=== PATIENT | female | born 1970 | race Caucasian/White ===

== ENCOUNTER 2020-09-17 19:06 | Emergency (ER) | payer OTHER, SELFPAY ==
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
[2020-09-17 19:13] VITALS: BP 177/91; PULSE 80; RESP 17; TEMP 36.6; O2SAT 97
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
[2020-09-17 19:28] LABS: Basophils Percent Auto 0.7 % (0.2-1.2); Eosinophils Absolute Auto 0.2 K/mm3 (0-0.3); Eosinophils Percent Auto 2.6 % (0-4.4); Hematocrit 45.6 % (37.0-47.0); Hemoglobin 15.7 g/dL (12.0-15.0); Immature Granulocyte Absolute 0.03 K/mm3 (0.00-0.031); Immature Granulocyte Percent A 0.5 % (0-0.5); Lymphocytes Absolute Auto 1.28 K/mm3 (0.9-3.2); Lymphocytes Percent Auto 22.2 % (18.3-44.2); Mean Corpuscular HGB Conc 34.4 g/dl (32-36); Mean Corpuscular Hemoglobin 31.5 pg (26-34); Mean Corpuscular Volume 91.4 fl (80-100); Mean Platelet Volume 9.4 fl (7.4-10.4); Monocytes Absolute Auto 0.4 K/mm3 (0.1-0.6); Monocytes Percent Auto 7.5 % (2.6-8.5); Neutrophils Absolute Auto 3.8 K/mm3 (1.3-6.7); Neutrophils Percent Auto 66.5 % (45.5-73.1); Platelet Count Result 217 k/mm3 (150-375); Red Blood Count 4.99 M/mm3 (4.2-5.4); Red Cell Distribution Width 12.4 % (11.5-14.5); White Blood Count 5.8 K/mm3 (4.5-10.0)
[2020-09-17] MEDS: SODIUM CHLORIDE 0.9% IV 1,000 ML 999 ML IV CONT (19:35)
[2020-09-17] MEDS: ONDANSETRON INJ 4 MG/2 ML VIAL IV PUSH (19:36)
[2020-09-17 19:39] LABS: Alanine Aminotransferase 50 U/L (4-35); Albumin Level 4.4 g/dL (3.5-5.1); Alkaline Phosphatase 49 U/L (38-126); Anion Gap 8 mmol/L (8-16); Aspartate Amino Transferase 31 U/L (14-36); Bilirubin,Total 0.4 mg/dL (0.2-1.3); Blood Urea Nitrogen 22 mg/dL (7-17); Calcium 9.7 mg/dL (8.4-10.2); Carbon Dioxide 26 mmol/L (22-30); Chloride 101 mmol/L (98-107); Estimated CRCL calculation 93 ml/min; Estimated Glomerular Filt Rate 58; Glucose 100 mg/dL (65-105); Potassium 4.2 mmol/L (3.4-5.0); Sodium 135 mmol/L (137-145)
--- NOTE | 2020-09-17 19:43 | PC.NURSE ---
Pt refused pain medication. States she can handle the pain
[2020-09-17 19:49] LABS: Add Urine Microscopic? YES; Appearance Urine Clear (Clear); Bilirubin Urine Negative (Negative); Blood Urine Negative (Negative); Color Urine Yellow (Yellow); Glucose Urine UA Negative (Negative); Ketones Urine Negative (Negative); Leukocyte Esterase Ur Negative LEU/UL (Negative); Mucus Urine Rare /lpf; Nitrate Urine Negative (Negative); Protein Urine Negative (Negative); RBC Urine 0-2 /hpf (0-2); Specific Grav Ur 1.016 (1.001-1.035); Squamous Epithelial Cell Urine Many /hpf (Few); WBC Urine 0-3 /hpf
== END 2020-09-17 21:03 | disposition home or self-care (01) ==
PROVIDERS: Emergency Provider Emergency Medicine; Family Provider Family Medicine; PCP Family Medicine
DX: S30.1XXA Contusion of abdominal wall, initial encounter (principal); S16.1XXA Strain of muscle, fascia and tendon at neck level, initial encounter; I10 Essential (primary) hypertension; E11.9 Type 2 diabetes mellitus without complications; F17.210 Nicotine dependence, cigarettes, uncomplicated; V49.50XA Passenger injured in collision with unspecified motor vehicles in traffic accident, initial encounter
CPT/HCPCS: 36415; 71260; 72125; 74177; 80053; 81001; 85025; 96361; 96374; 99284; J2405; J7030; Q9967

== ENCOUNTER 2020-09-24 12:46 | Outpatient (CLI) | payer OTHER, SELFPAY ==
--- NOTE | ~2020-09-24 | US_ITS ---
EXAMINATION: US carotid duplex BI DATE: 09/24/2020 13:19 INDICATION: Carotid atherosclerosis. TECHNIQUE: Grayscale, color Doppler, and pulsed Doppler images of the cervical carotid arteries were obtained. The degree of vessel stenosis is placed in one of the following categories: normal, <50%, 5 0-69%, >=70% but less than near-occlusion, near-occlusion, or total occlusion. Note that percent sten osis relative to normal distal artery lumen diameter is indirectly measured from velocity measurement s as described by Papo, et al. Radiology 2003; 229:340-346. COMPARISON: CT cervical spine 09/17/2020 FINDINGS: RIGHT: The right common carotid artery (CCA) peak systolic velocity (PSV) is 102 cm/s. The right internal ca rotid artery (ICA) PSV is 100 cm/s. The right ICA end-diastolic velocity (EDV) is 16 cm/s. The right ICA/CCA PSV ratio is 1.0. Grayscale and color Doppler images yield an estimate of <50% diameter reduc tion from plaque in the ICA. There is antegrade flow in the right vertebral artery. LEFT: The left CCA PSV is 106 cm/s. The left ICA PSV is 97 cm/s. The left ICA EDV is 37 cm/s. The left ICA/ CCA PSV ratio is 0.9. Grayscale and color Doppler images yield an estimate of <50% diameter reduction from plaque in the ICA. There is antegrade flow in the left vertebral artery. IMPRESSION: 1. <50% stenosis in the right internal carotid artery. 2. <50% stenosis in the left internal carotid artery. Reviewed, dictated and finalized at location [facility]. 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
== END 2020-09-24 12:47 | disposition home or self-care (01) ==
PROVIDERS: Family Provider Family Medicine; PCP Family Medicine; Visit Provider Family Medicine
DX: R93.89 Abnormal findings on diagnostic imaging of other specified body structures (principal); I65.23 Occlusion and stenosis of bilateral carotid arteries
CPT/HCPCS: 93880

== ENCOUNTER 2022-11-18 11:07 | Outpatient (CLI) | payer OTHER, SELFPAY ==
--- NOTE | ~2022-11-18 | US_ITS ---
EXAMINATION: US thyroid DATE: 11/18/2022 12:23 INDICATION: Goiter. TECHNIQUE: Multiple ultrasound images of the thyroid were obtained. COMPARISON: CT cervical spine 09/17/2020 FINDINGS: The right thyroid lobe measures 5.3 x 2.3 x 1.6 cm. The left thyroid lobe measures 4.4 x 2.1 x 1.2 c m. There is normal echotexture and echogenicity throughout the thyroid gland. No discrete nodules id entified. Normal vascular flow is present. IMPRESSION: 1. Normal thyroid. Reviewed, dictated and finalized at [facility]. IMPRESSION: 1. Normal thyroid.
== END 2022-11-18 11:08 | disposition home or self-care (01) ==
PROVIDERS: PCP Family Medicine; Visit Provider Internal Medicine Endocrinology, Diabetes & Metabolism
DX: E04.9 Nontoxic goiter, unspecified (principal)
CPT/HCPCS: 76536

== ENCOUNTER 2023-11-26 17:41 | Emergency (ER) | payer OTHER, SELFPAY ==
--- NOTE | 2023-11-26 17:42 | ED.URI ---
HPI - URI/Sore Throat General Chief Complaint: Upper Respiratory Infection Stated Complaint: Sore Throat Time Seen by Provider: 11/26/23 17:41 Source: patient Mode of arrival: ambulatory Limitations: no limitations History of Present Illness HPI Narrative: Ariana is a 53-year-old female patient presenting to the clinic today with complaints of a sore throat when she swallows. Tonsils are swollen. Denies any fever or chills. Is not having any drooling. States when she feels like this usually has strep pharyngitis or tonsillitis. MD elicited complaint: sore throat and nasal congestion Related Data Home Medications Medication Instructions Recorded Confirmed amiodarone 200 mg tablet 200 mg PO BID 11/26/23 11/26/23 apixaban 5 mg tablet (Eliquis) 5 mg PO BID 11/26/23 11/26/23 dapagliflozin propanediol 5 mg 5 mg PO DAILY 11/26/23 11/26/23 tablet (Farxiga) diltiazem HCl 60 mg tablet 60 mg PO BID 11/26/23 11/26/23 famotidine 20 mg tablet 20 mg PO BID 11/26/23 11/26/23 flecainide 100 mg tablet 100 mg PO BID 11/26/23 11/26/23 furosemide 40 mg tablet 40 mg PO BID 11/26/23 11/26/23 gabapentin 100 mg capsule 200 mg PO TID 11/26/23 11/26/23 losartan 100 mg tablet 100 mg PO DAILY 11/26/23 11/26/23 magnesium oxide 400 mg (241.3 mg 400 mg PO BID 11/26/23 11/26/23 magnesium) tablet metformin 500 mg tablet 500 mg PO BID 11/26/23 11/26/23 metoprolol tartrate 25 mg tablet 25 mg PO BID 11/26/23 11/26/23 potassium chloride 20 mEq 40 meq PO BID 11/26/23 11/26/23 tablet,extended release(part/cryst) triamterene 37.5 1 cap PO DAILY 11/26/23 11/26/23 mg-hydrochlorothiazide 25 mg capsule Allergies Allergy/AdvReac Type Severity Reaction Status Date / Time acetaminophen [From Percocet] Allergy Intermediate Hives Verified 11/26/23 17:47 oxycodone [From Percocet] Allergy Intermediate Hives Verified 11/26/23 17:47 Penicillins Allergy Intermediate Hives Verified 11/26/23 17:47 Review of Systems Review of Systems: Pertinent positives per HPI. Patient denies any fever, chills, rash, headache, visual changes, dizziness, cough, shortness of breath, chest pain, palpitations, nausea, vomiting, diarrhea, constipation, abdominal pain, or any urinary issues. PMFSH Family History Family History Mother Hypertension Social History Social History Second hand tobacco smoke exposure: No Smoking end date: 08/22/07 Alcohol intake: current Comments At the time of my signature, I reviewed and agree with the nursing past medical, surgical, social, and family history. There is no relevant family history pertinent to the patient complaint. Exam Narrative: General: Well-developed, morbidly obese, in no apparent distress Head: Normocephalic, atraumatic Eyes: Pupils equally round and reactive to light bilaterally, EOM intact, sclera and conjunctive clear, no discharge, lids normal Ears: TMs intact and clear, ear canals clear, no drainage, grossly hearing normal. Nose: Nares patent, no discharge, no inflammation, no sinus tenderness. Mouth: Oral pharynx with red and bilateral tonsillar enlargement-2+ without lesions or masses, good dentition, MMM. Neck: Supple, trachea midline, enlargement of anterior cervical nodes, no thyroid masses or goiter palpable. Cardio: Regular rate and rhythm, s1 and s2 normal, no murmur appreciated. Resp: Clear to auscultation bilaterally, no rhonchi, rales, wheezing or rubs Course Course Emergency Course: Portions of this record may have been created with voice recognition software. Level of Care: Express Care Visit Vital Signs Vital signs: Vital signs reviewed MDM - URI/Sore Throat MDM Narrative Medical decision making narrative: At the time of visit patient is resting comfortably on the exam table. Patient appears to be nontoxic. Labs: Strep test was obtained and negative
[2023-11-26 17:48] VITALS: BP 135/78; PULSE 61; RESP 16; TEMP 36.9; O2SAT 99
[2023-11-26 17:52] VITALS: BP 135/78; PULSE 61; RESP 16; TEMP 36.9; O2SAT 99
== END 2023-11-26 18:03 | disposition home or self-care (01) ==
PROVIDERS: Emergency Provider Nurse Practitioner Family; PCP Family Medicine
DX: J02.9 Acute pharyngitis, unspecified (principal); Z87.891 Personal history of nicotine dependence; I10 Essential (primary) hypertension; K21.9 Gastro-esophageal reflux disease without esophagitis; E11.9 Type 2 diabetes mellitus without complications; Z79.84 Long term (current) use of oral hypoglycemic drugs
CPT/HCPCS: 87081; 87880; 99213; G0463

== ENCOUNTER 2024-01-13 17:41 | Emergency (ER) | payer OTHER, SELFPAY ==
[2024-01-13 17:53] VITALS: BP 104/62; PULSE 64; RESP 22; TEMP 36.1; O2SAT 91
--- NOTE | 2024-01-13 18:01 | ED.URI ---
HPI - URI/Sore Throat General Chief Complaint: Upper Respiratory Infection Stated Complaint: Sinus Time Seen by Provider: 01/13/24 18:00 Source: patient Mode of arrival: ambulatory Limitations: no limitations History of Present Illness HPI Narrative: Ariana is a 53-year-old female patient presenting to clinic today with complaints of sinus congestion and left nose bleed. She reports the nose bleeding has been going on for a couple hours prior to arrival. States the sinus congestion is been going on for 2 days. She reports blowing out some green nasal drainage with some slight blood tinge. Is currently taking Eliquis. MD elicited complaint: sore throat and nasal congestion Related Data Home Medications Medication Instructions Recorded Confirmed amiodarone 200 mg tablet 200 mg PO BID 11/26/23 01/13/24 apixaban 5 mg tablet (Eliquis) 5 mg PO BID 11/26/23 01/13/24 dapagliflozin propanediol 5 mg 5 mg PO DAILY 11/26/23 01/13/24 tablet (Farxiga) diltiazem HCl 60 mg tablet 60 mg PO BID 11/26/23 01/13/24 famotidine 20 mg tablet 20 mg PO BID 11/26/23 01/13/24 flecainide 100 mg tablet 100 mg PO BID 11/26/23 01/13/24 furosemide 40 mg tablet 40 mg PO BID 11/26/23 01/13/24 gabapentin 100 mg capsule 200 mg PO TID 11/26/23 01/13/24 losartan 100 mg tablet 100 mg PO DAILY 11/26/23 01/13/24 magnesium oxide 400 mg (241.3 mg 400 mg PO BID 11/26/23 01/13/24 magnesium) tablet metformin 500 mg tablet 500 mg PO BID 11/26/23 01/13/24 metoprolol tartrate 25 mg tablet 25 mg PO BID 11/26/23 01/13/24 potassium chloride 20 mEq 40 meq PO BID 11/26/23 01/13/24 tablet,extended release(part/cryst) triamterene 37.5 1 cap PO DAILY 11/26/23 01/13/24 mg-hydrochlorothiazide 25 mg capsule Allergies Allergy/AdvReac Type Severity Reaction Status Date / Time acetaminophen [From Percocet] Allergy Intermediate Hives Verified 01/13/24 17:43 oxycodone [From Percocet] Allergy Intermediate Hives Verified 01/13/24 17:43 Penicillins Allergy Intermediate Hives Verified 01/13/24 17:43 Review of Systems Review of Systems: Pertinent positives per HPI. Patient denies any fever, chills, rash, headache, visual changes, dizziness, cough, shortness of breath, chest pain, palpitations, nausea, vomiting, diarrhea, constipation, abdominal pain, or any urinary issues. PMFSH Family History Family History Mother Hypertension Social History Social History Second hand tobacco smoke exposure: No Smoking end date: 08/22/07 Alcohol intake: current Comments At the time of my signature, I reviewed and agree with the nursing past medical, surgical, social, and family history. There is no relevant family history pertinent to the patient complaint. Exam Narrative: General: Well-developed, well nourished, in no apparent distress Head: Normocephalic, atraumatic Eyes: Pupils equally round and reactive to light bilaterally, EOM intact, sclera and conjunctive clear, no discharge, lids normal Ears: TMs intact and clear, ear canals clear, no drainage, grossly hearing normal. Nose: Nares patent, blood dripping from the left anterior nare, moderate inflammation, maxillary sinus tenderness. Mouth: Oral pharynx without lesions or masses, good dentition, MMM. Neck: Supple, trachea midline, no enlargement of anterior or posterior cervical nodes, no thyroid masses or goiter palpable. Cardio: Regular rate and rhythm, s1 and s2 normal, no murmur appreciated. Resp: Clear to auscultation bilaterally, no rhonchi, rales, wheezing or rubs Course Course Emergency Course: Portions of this record may have been created with voice recognition software. Level of Care: Express Care Visit Vital Signs Vital signs: Vital Signs Temperature 36.1 C L 01/13/24 17:53 Pulse Rate 64 01/13/24 17:53 Respiratory Rate 22 H 01/13/24 17:53 Blood Pressure 104/
[2024-01-13] MEDS: PHENYLEPHRINE 1% NA SPR (*BKC) 15 ML BTL 1 SPRAY NASAL (18:10)
== END 2024-01-13 18:15 | disposition home or self-care (01) ==
PROVIDERS: Emergency Provider Nurse Practitioner Family; PCP Family Medicine
DX: R04.0 Epistaxis (principal); J01.90 Acute sinusitis, unspecified; Z87.891 Personal history of nicotine dependence; Z79.01 Long term (current) use of anticoagulants; I10 Essential (primary) hypertension; K21.9 Gastro-esophageal reflux disease without esophagitis; E11.9 Type 2 diabetes mellitus without complications
CPT/HCPCS: 30901; 99213; A9270; G0463

== ENCOUNTER 2024-04-26 10:02 | Outpatient (CLI) | payer OTHER, SELFPAY ==
--- NOTE | ~2024-04-26 | CT_ITS ---
CT of the Abdomen and Pelvis: Indication: Abdominal pain Technique: 2.5 mm axial scans were obtained through the abdomen and pelvis following intravenous adm inistration of 100 cc of Omnipaque 350. Dose reduction technique was used on this scan by utilizing a utomated exposure control and iterative reconstruction technique. The dose-length product (DLP) was 2 545.10 mGy-cm. COMPARISON: 09/17/2020 Findings: Scans through the lung bases demonstrate bibasilar atelectatic changes. The liver, spleen, pancreas, gallbladder, adrenals and kidneys are within normal limits. There are at herosclerotic calcifications of the aorta. No lymphadenopathy. No bowel obstruction or bowel wall thickening. There is no evidence to suggest acute appendicitis. Pr obable large fat-containing of focal hernia present, partially imaged. Images through the pelvis were performed. Urinary bladder unremarkable. Possible 6.0 x 4.8 cm hypoden se mass along the posterior margin of the uterus. No ascites. Impression: Questionable 6.0 x 4.8 cm hypodense mass along the posterior margin of the uterus. Pelvic ultrasound advised for further evaluation. Probable large fat-containing umbilical hernia, partially imaged. Reviewed, dictated and finalized at location [facility]. Impression: Questionable 6.0 x 4.8 cm hypodense mass along the posterior margin of the uter us. Pelvic ultrasound advised for further evaluation. Probable large fat-containing umbilical hernia, partially imaged.
[2024-04-26 10:41] LABS: Estimated Glomerular Filt Rate > 60
== END 2024-04-26 10:03 | disposition home or self-care (01) ==
DX: R10.9 Unspecified abdominal pain (principal)
CPT/HCPCS: 74177; Q9967

== ENCOUNTER 2024-04-27 15:13 | Outpatient (CLI) | payer OTHER, SELFPAY ==
--- NOTE | ~2024-04-27 | US_ITS ---
EXAMINATION: US transvaginal DATE: 04/27/2024 15:58 INDICATION: Mass of uterus. TECHNIQUE: Multiple transabdominal and transvaginal sonographic images of the pelvis were obtained. COMPARISON: CT abdomen pelvis 04/26/2024 FINDINGS: TRANSABDOMINAL ULTRASOUND: The uterus measures 8.4 x 3.4 x 3.1 cm. There is a small volume of free fluid in the pelvis. TRANSVAGINAL ULTRASOUND: The endometrial complex measures 3 mm in thickness. The ovaries are not visualized. IMPRESSION: 1. Normal uterus. 2. Ovaries not visualized. 3. Small volume of pelvic ascites. Reviewed, dictated and finalized at location [facility].
== END 2024-04-27 15:14 | disposition home or self-care (01) ==
LOC: ANHIMG 15:18
DX: N85.8 Other specified noninflammatory disorders of uterus (principal); R18.8 Other ascites
CPT/HCPCS: 76830

== ENCOUNTER 2024-06-02 10:39 | Inpatient (IN) | payer OTHER, SELFPAY ==
[2024-06-02] VITALS (23 sets, daily range): BP systolic 89–112; BP diastolic 38–56; PULSE 60–65; RESP 15–25; TEMP 36.4–36.9; O2SAT 85–96; BMI 62.2
--- NOTE | ~2024-06-02 | US_ITS ---
EXAMINATION: US venous doppler LE RT DATE: 06/17/2024 11:46 INDICATION: Right lower limb swelling. TECHNIQUE: Grayscale ultrasound images without and with compression and Doppler ultrasound images of the right lower extremity veins were obtained. COMPARISON: Ultrasound 06/07/2024 FINDINGS: The visualized portions of right common femoral vein, profunda (deep) femoral vein, femoral vein, pop liteal vein, peroneal veins, posterior tibial veins, and greater saphenous vein outflow are patent. IMPRESSION: 1. No deep venous thrombosis. Reviewed, dictated and finalized at location A.
--- NOTE | ~2024-06-02 | XR_ITS ---
Portable chest x-ray Comparison: 06/07/2024 Clinical History: Respiratory failure Findings: Endotracheal tube, NG tube, and right IJ line are in place. Extensive bilateral pulmonary consolidation and present, especially left lung base. Cardiomediastinal silhouette is stable, with p acemaker device. Bones and soft tissues are unremarkable. Impression: Stable extensive bilateral pulmonary consolidation, worst at the left lung base. Correlate for pulmon ye edema versus pneumonia. Stable support tubes and pacemaker device. Reviewed, dictated and finalized at location . Impression: Stable extensive bilateral pulmonary consolidation, worst at the left lung base . Correlate for pulmonary edema versus pneumonia. Stable support tubes and pacemaker device.
--- NOTE | ~2024-06-02 | XR_ITS ---
Portable chest x-ray Comparison: 06/18/2024 Clinical History: Respiratory failure Findings: Endotracheal tube, NG tube, and right IJ line are in place. Probable small left pleural ef fusion. There is extensive hazy bilateral pulmonary disease. There is discoid right basilar atelectas is. Cardiomediastinal silhouette is stable, with pacemaker device. Bones and soft tissues are unrema rkable. Impression: Extensive bilateral pulmonary edema pattern with probable small left pleural effusion and superimpose d discoid right basilar atelectasis. Support tubes and pacemaker device, as above. Reviewed, dictated and finalized at location . Impression: Extensive bilateral pulmonary edema pattern with probable small left pleural ef fusion and superimposed discoid right basilar atelectasis. Support tubes and pacemaker device, as above.
--- NOTE | ~2024-06-02 | XR_ITS ---
Portable chest x-ray Comparison: 06/05/2024 Clinical History: Respiratory failure Findings: Endotracheal tube, NG tube, and right IJ line are in place. Extensive airspace disease thr oughout both lungs is again present. Cardiomediastinal silhouette is stable, with pacemaker device. Bones and soft tissues are unremarkable. Impression: Stable extensive bilateral pulmonary consolidation. Correlate for pulmonary edema, infection, or ARDS . Support tubes, as above. Reviewed, dictated and finalized at location . Impression: Stable extensive bilateral pulmonary consolidation. Correlate for pulmonary christopher ma, infection, or ARDS. Support tubes, as above.
--- NOTE | ~2024-06-02 | XR_ITS ---
Upright portable view of the abdomen Clinical history: G-tube placement COMPARISON: 06/05/2024 Findings: Limited exam due to body habitus and patient positioning. OG tube is in satisfactory positi on. Nonspecific bowel gas pattern on this exam. No definite free air.. Impression: Limited exam. NG tube is in satisfactory position. Reviewed, dictated and finalized at [facility]. Impression: Limited exam. NG tube is in satisfactory position.
--- NOTE | ~2024-06-02 | US_ITS ---
EXAMINATION: US venous doppler [facility] DATE: 06/07/2024 16:58 INDICATION: Lower limb swelling. TECHNIQUE: Grayscale ultrasound images without and with compression and Doppler ultrasound images of the bilateral lower extremity veins were obtained. COMPARISON: None. FINDINGS: The visualized portions of right common femoral vein, profunda (deep) femoral vein, femoral vein, pop liteal vein, peroneal veins, posterior tibial veins, and greater saphenous vein outflow are patent. The visualized portions of left common femoral vein, profunda femoral vein, femoral vein, popliteal v ein, peroneal veins, posterior tibial veins, and greater saphenous vein outflow are patent. IMPRESSION: 1. No deep venous thrombosis. Reviewed, dictated and finalized at location A.
--- NOTE | ~2024-06-02 | XR_ITS ---
EXAMINATION: XR chest 2V DATE: 06/02/2024 11:32 INDICATION: Abdominal pain. Dysuria. TECHNIQUE: Frontal and lateral views of the chest were obtained. COMPARISON: None. FINDINGS: The patient is rotated to her left on the frontal view. There is mild atelectasis in right lower lung zone. There is a diffuse interstitial pattern, consistent mild pulmonary edema. No pleural effusion or pneumothorax. Cardiomegaly is noted. There are changes of median sternotomy. Epicardial pacer wires are noted. There is a retained lead in right atrium. IMPRESSION: 1. Mild pulmonary edema. 2. Cardiomegaly. Reviewed, dictated and finalized at location A.
--- NOTE | ~2024-06-02 | XR_ITS ---
EXAMINATION: XR chest 1V portable DATE: 06/21/2024 08:48 INDICATION: Advanced endotracheal tube. TECHNIQUE: A single frontal view of the chest was obtained. COMPARISON: Chest single view 06/19/2024, chest CT 06/17/2024 FINDINGS: There are airspace opacities in all lung zones bilaterally. No pleural effusion or pneumoth orax. Cardiomegaly is noted. The endotracheal tube tip is 2.9 cm above the esha. Median sternotomy wires are noted. There is a left chest pacer with lead in right atrium and epicardial leads. A right internal jugular central venous catheter is seen with tip at the superior cavoatrial junction. IMPRESSION: 1. Stable diffuse lung disease, consistent with pulmonary edema versus pneumonia. 2. Cardiomegaly. Reviewed, dictated and finalized at location [] IMPRESSION: 1. Stable diffuse lung disease, consistent with pulmonary edema versus pneumoni a. 2. Cardiomegaly.
--- NOTE | ~2024-06-02 | US_ITS ---
Limited ABDOMINAL ULTRASOUND Ordering provider: Linda Jj MD History: . Elevated LFTs and bilirubin . Comparison: None. FINDINGS: LIVER: Echogenic. Slightly enlarged left lobe of the liver. No focal hepatic lesions or perihepatic f luid collections are identified. Normal flow of the portal vein. GALLBLADDER: Unremarkable. No evidence for stones, sludge, or pericholecystic fluid collections. Wall thickness is 4.2 mm. BILIARY DUCTS: No evidence for intra or extrahepatic biliary dilation. Common bile duct measures 4.2 mm in diameter which is within normal limits. PANCREAS: Not well demonstrated. FREE FLUID: Trace is noted. IMPRESSION: Fat infiltration. Enlarged left lobe of the liver. Slightly thickened wall of the gallbladder. Trace of ascites. Otherwise, normal Limited ultrasound of the abdomen. Reviewed, dictated and finalized at location A. IMPRESSION: Fat infiltration. Enlarged left lobe of the liver. Slightly thickened wall of t he gallbladder. Trace of ascites. Otherwise, normal Limited ultrasound of the a bdomen.
--- NOTE | ~2024-06-02 | XR_ITS ---
EXAMINATION: XR chest 1V portable DATE: 06/17/2024 05:53 INDICATION: Respiratory failure. TECHNIQUE: A single frontal view of the chest was obtained. COMPARISON: Chest single view 06/16/2024 FINDINGS: There are airspace opacities in all lung zones bilaterally. No pleural effusion or pneumoth orax. Cardiomegaly is noted. There are changes of median sternotomy. There is a left chest pacer with lead in right atrium and epicardial leads. The endotracheal tube tip is 3.2 cm above the esha. The nasogastric tube tip is beyond the inferior margin of the radiograph, but at least to the stomach. IMPRESSION: 1. Diffuse lung disease with interval improvement, consistent with pulmonary edema versus pneumonia. 2. Cardiomegaly. Reviewed, dictated and finalized at location A. IMPRESSION: 1. Diffuse lung disease with interval improvement, consistent with pulmonary ed isiah versus pneumonia. 2. Cardiomegaly.
--- NOTE | ~2024-06-02 | XR_ITS ---
EXAMINATION: XR chest 1V portable DATE: 06/13/2024 05:33 INDICATION: Intubated. TECHNIQUE: A single frontal view of the chest was obtained. COMPARISON: Chest single view 06/12/2024, chest CT 06/04/2024 FINDINGS: There are airspace opacities in all lung zones bilaterally. No pleural effusion or pneumoth orax. Cardiomegaly is noted. There is a prominent left pericardial fat pad. The endotracheal tube tip is 5.1 cm above the esha. The nasogastric tube tip is beyond the inferior margin of the radiograph , but at least to the stomach. There is a left chest pacer with lead in right atrium and epicardial l elijah. There are changes of median sternotomy. A right internal jugular central venous catheter is see n with tip at the superior cavoatrial junction. IMPRESSION: 1. Stable diffuse lung disease, consistent with pulmonary edema versus pneumonia. 2. Cardiomegaly. Reviewed, dictated and finalized at location A. IMPRESSION: 1. Stable diffuse lung disease, consistent with pulmonary edema versus pneumoni a. 2. Cardiomegaly.
--- NOTE | ~2024-06-02 | XR_ITS ---
Portable chest x-ray Comparison: 06/09/2024 Clinical History: Respiratory failure Findings: Endotracheal tube, NG tube, and right IJ line are in place. Extensive bilateral pulmonary consolidation and present. Probable small pleural effusions. Cardiomediastinal silhouette is stable, with pacemaker device. Bones and soft tissues are unremarkable. Impression: Extensive bilateral pulmonary consolidation. Correlate for pulmonary edema, pneumonia, or ARDS. Small pleural effusions. Support tubes and pacemaker device, as above. Reviewed, dictated and finalized at location . Impression: Extensive bilateral pulmonary consolidation. Correlate for pulmonary edema, pne umonia, or ARDS. Small pleural effusions. Support tubes and pacemaker device, as above.
--- NOTE | ~2024-06-02 | CT_ITS ---
EXAMINATION: CT chest abdomen pelvis wo con DATE: 06/04/2024 19:06 INDICATION: Anasarca. Hypoxia. TECHNIQUE: Computed tomography (CT) of the chest, abdomen, and pelvis was performed without intraveno us contrast. Automated exposure control and iterative reconstruction technique were employed. The dos e-length product was 2080.94 mGy-cm. COMPARISON: CT abdomen pelvis 04/26/2024 FINDINGS: CHEST CT: There are patchy airspace opacities in all lobes. There are areas of air-trapping in the lungs bilate rally. There are trace pleural effusions. Cardiomegaly is noted. No pericardial effusion. There are p acer wires in right atrium, right ventricle, and coronary sinus. There is severe thoracic spondylosis . ABDOMEN/PELVIS CT: Sensitivity is decreased by obesity. The liver, gallbladder, spleen, pancreas, adrenal glands, and ki dneys are normal. There is a moderate volume of ascites. There are no dilated loops of bowel. There i s extensive body wall edema. Much of the anterior body wall is excluded. There are no pathologically enlarged lymph nodes. There is severe lower lumbar spondylosis. IMPRESSION: 1. Diffuse lung disease, consistent with pulmonary edema versus pneumonia. 2. Moderate volume of ascites. Reviewed, dictated and finalized at location A.
--- NOTE | ~2024-06-02 | CT_ITS ---
EXAMINATION: CT chest abdomen pelvis wo con DATE: 06/24/2024 09:06 INDICATION: Fever. C. difficile. Technique TECHNIQUE: Computed tomography (CT) of the chest was performed without intravenous contrast. Automate d exposure control and iterative reconstruction technique were employed. Exam dose: 2002.90 mGy-cm t otal exam DLP. COMPARISON: None FINDINGS: ET and NG tubes. Left subclavian transvenous pacemaker device with right atrial and epicardial leads. Status post sternotomy. Cardiomegaly. No pericardial effusion. No pleural effusion. There is thoracic aortic and abdominal aortic calcification without aneurysm. No hilar or mediastinal mass lesion or lymphadenopathy. Prominent bilateral lower lobe atelectasis with air bronchograms. There are diffuse patchy groundglas s infiltrates throughout the remaining lung wilson, which are likely due to pneumonitis and/or small airways disease. No hepatic space-occupying mass lesion is evident. The gallbladder is present. No gallbladder wall th ickening or pericholecystic fluid or fat stranding. No pancreatic mass lesion, calcification or ducta l dilatation. Splenomegaly. Normal morphology of the adrenal glands. No renal mass lesion or urinary tract calculus or hydroureteronephrosis. There is a Lai catheter wi thin the evacuated urinary bladder. The uterus and adnexal areas are unremarkable. No bowel obstruction or intraperitoneal free air. No intraperitoneal or retroperitoneal or pelvic mass lesion or adenopathy or ascites is detected. There is edema and inflammation of the left and right anterolateral abdominal wall. 5.8 cm x 6.3 cm fat-containing ventral apparent umbilical hernia. Thoracic and lumbar spondylosis including severe degenerative disease at L5-S1. No suspicious osteolytic or osteoblastic lesions are noted. IMPRESSION: Diffuse patchy bilateral pulmonary ground glass infiltrates suggesting pneumonitis, less likely small airways disease Prominent bilateral lower lobe atelectasis with air bronchograms Cardiomegaly Splenomegaly Reviewed, dictated and finalized at Location A. Reviewed, dictated and finalized at location A. 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
--- NOTE | ~2024-06-02 | US_ITS ---
EXAMINATION: US venous doppler [facility] DATE: 06/28/2024 15:06 INDICATION: Lower limb swelling. Fever. TECHNIQUE: Grayscale ultrasound images without and with compression and Doppler ultrasound images of the bilateral lower extremity veins were obtained. COMPARISON: Ultrasound 06/07/2024 FINDINGS: The visualized portions of right common femoral vein, profunda (deep) femoral vein, femoral vein, pop liteal vein, peroneal veins, posterior tibial veins, and greater saphenous vein outflow are patent. The visualized portions of left common femoral vein, profunda femoral vein, femoral vein, popliteal v ein, peroneal veins, posterior tibial veins, and greater saphenous vein outflow are patent. IMPRESSION: 1. No deep venous thrombosis. Reviewed, dictated and finalized at location A. 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
--- NOTE | ~2024-06-02 | XR_ITS ---
EXAMINATION: XR chest 1V portable DATE: 06/24/2024 05:44 INDICATION: Respiratory failure TECHNIQUE: frontal view of the chest was obtained. COMPARISON: Chest radiograph dated 06/23/2024 FINDINGS: Endotracheal tube tip 2.6 cm above the esha. Nasogastric tube tip in proximal side port in the body of the stomach. Large-bore dual-lumen right internal jugular central venous catheter with distal tip at the superior cavoatrial junction. Cardiomegaly and interval improvement in prior pulmonary vascular congestion. Persistent airspace opa cities in the left mid and lower lung zone. No pneumothorax or definitive pleural effusion. Change of prior median sternotomy. Cardiac pacemaker with one lead tip at the right atrium and 2 epicardial le ads. IMPRESSION: 1. Unchanged opacities in the left mid to lower lung zone which could represent atelectasis or pneumo amanda. 2. Cardiomegaly with interval improvement in prior pulmonary vascular congestion. Reviewed, dictated and finalized at location A. GE PERSON IMPRESSION: 1. Unchanged opacities in the left mid to lower lung zone which could represent atelectasis or pneumonia. 2. Cardiomegaly with interval improvement in prior pulmonary vascular congestio nSantos
--- NOTE | ~2024-06-02 | US_ITS ---
EXAMINATION: US renal BI DATE: 06/04/2024 14:36 INDICATION: Acute kidney injury. TECHNIQUE: Multiple ultrasound grayscale images of the kidneys were obtained. COMPARISON: CT 04/26/2024 FINDINGS: The right kidney measures 12.4 x 6.5 x 5.9 cm. The left kidney measures 12.1 x 6.0 x 6.2 cm. The kidn eys demonstrate normal parenchymal echogenicity. There is no hydronephrosis. The bladder is not visua lized. IMPRESSION: 1. Normal kidneys. No hydronephrosis. Reviewed, dictated and finalized at location A.
--- NOTE | ~2024-06-02 | XR_ITS ---
Portable chest x-ray Comparison: 06/21/2024 Clinical History: Pulmonary edema Findings: Endotracheal tube, NG tube, and right IJ line are present. Moderate pulmonary edema patter n present. Cardiomediastinal silhouette is stable, with pacemaker device. Bones and soft tissues are unremarkable. Impression: Moderate pulmonary edema pattern. Support tubes, as above. Reviewed, dictated and finalized at location . Impression: Moderate pulmonary edema pattern. Support tubes, as above.
--- NOTE | ~2024-06-02 | XR_ITS ---
EXAMINATION: XR chest 1V portable DATE: 06/16/2024 05:57 INDICATION: Respiratory failure. TECHNIQUE: A single frontal view of the chest was obtained. COMPARISON: Chest single view 06/15/2024 FINDINGS: There are airspace opacities in all lung zones bilaterally. No pleural effusion or pneumoth orax. Cardiomegaly is noted. The endotracheal tube tip is 3.1 cm above the esha. There are changes of median sternotomy. The nasogastric tube tip is beyond the inferior margin of the radiograph, but a t least to the stomach. A right internal jugular central venous catheter is seen with tip in the prox imal right atrium. There is a left chest pacer lead in right atrium and epicardial leads. IMPRESSION: 1. Stable diffuse lung disease, consistent with pulmonary edema versus pneumonia. 2. Cardiomegaly. Reviewed, dictated and finalized at location A. IMPRESSION: 1. Stable diffuse lung disease, consistent with pulmonary edema versus pneumoni a. 2. Cardiomegaly.
--- NOTE | ~2024-06-02 | CT_ITS ---
EXAMINATION: CT chest abdomen pelvis wo con DATE: 06/17/2024 09:52 INDICATION: Sepsis. TECHNIQUE: Computed tomography (CT) of the chest, abdomen, and pelvis was performed without intraveno us contrast. Automated exposure control and iterative reconstruction technique were employed. The dos e-length product was 2002.90 mGy-cm. COMPARISON: CT 06/04/2024 FINDINGS: CHEST CT: There are patchy airspace and groundglass opacities in all lung lobes bilaterally. No pleural effusio n. Cardiomegaly is noted. There is a left chest pacer with leads in right atrium and right ventricle. The endotracheal tube tip is in expected position. The nasogastric tube tip is in the stomach. A rig ht internal jugular central venous catheter is seen with tip at the superior cavoatrial junction. The re is severe thoracic spondylosis. ABDOMEN/PELVIS CT: The liver, gallbladder, spleen, pancreas, adrenal glands, and kidneys are normal. There are no dilate d loops of bowel. The appendix is not visualized. There is mild left para-aortic lymphadenopathy, lik perry reactive. There is an umbilical ventral hernia containing fat. There is a small volume of ascites . Body wall edema is noted. There is severe lower lumbar spondylosis. IMPRESSION: 1. Diffuse lung disease, consistent with pulmonary edema versus pneumonia versus acute respiratory di stress syndrome. 2. Cardiomegaly. 3. Small volume of ascites. Reviewed, dictated and finalized at location A. IMPRESSION: 1. Diffuse lung disease, consistent with pulmonary edema versus pneumonia versu s acute respiratory distress syndrome. 2. Cardiomegaly. 3. Small volume of ascites.
--- NOTE | ~2024-06-02 | XR_ITS ---
Portable chest x-ray Comparison: 06/17/2024 Clinical History: Respiratory failure Findings: Endotracheal tube, NG tube, and right IJ line in place. There is extensive left lung conso lidation. There is patchy haziness in the right lung. Cardiomediastinal silhouette is stable, with p acemaker device. Bones and soft tissues are unremarkable. Impression: Extensive consolidation of the left lung with more mild patchy haziness in the right lung. Correlate for asymmetric pulmonary edema versus bilateral pneumonia. Support tubes and pacemaker device, as above. Reviewed, dictated and finalized at location . Impression: Extensive consolidation of the left lung with more mild patchy haziness in the right lung. Correlate for asymmetric pulmonary edema versus bilateral pneumonia . Support tubes and pacemaker device, as above.
--- NOTE | ~2024-06-02 | XR_ITS ---
Portable chest x-ray Comparison: 06/10/2024 Clinical History: Respiratory failure Findings: Endotracheal tube, NG tube, and right IJ line are in place. Extensive bibasilar pulmonary consolidation present. Cardiomediastinal silhouette is stable, with pacemaker device. Bones and soft tissues are unremarkable. Impression: Extensive bibasilar pulmonary consolidation. Correlate for pulmonary edema/atelectasis, pneumonia, or ARDS. Support tubes, as above. Reviewed, dictated and finalized at location . Impression: Extensive bibasilar pulmonary consolidation. Correlate for pulmonary edema/atel ectasis, pneumonia, or ARDS. Support tubes, as above.
--- NOTE | ~2024-06-02 | XR_ITS ---
EXAMINATION: XR chest 1V portable DATE: 06/22/2024 15:15 INDICATION: Central line placement. TECHNIQUE: A single frontal view of the chest was obtained. COMPARISON: Chest single view at 4:54 AM FINDINGS: There are airspace opacities in all lung zones bilaterally with a perihilar and right basil ar predominance. No pleural effusion or pneumothorax. Cardiomegaly is noted. The endotracheal tube ti p is 2.6 cm above the esha. A right internal jugular central venous catheter is seen with tip at th e superior cavoatrial junction. There are changes of median sternotomy. There is a left chest pacer w ith lead in right atrium and epicardial leads. IMPRESSION: 1. Central line tip at superior cavoatrial junction. 2. Stable diffuse lung disease, consistent with pulmonary edema versus pneumonia versus acute respira tory distress syndrome (ARDS). 3. Cardiomegaly. Reviewed, dictated and finalized at location B. IMPRESSION: 1. Central line tip at superior cavoatrial junction. 2. Stable diffuse lung disease, consistent with pulmonary edema versus pneumoni a versus acute respiratory distress syndrome (ARDS). 3. Cardiomegaly.
--- NOTE | ~2024-06-02 | XR_ITS ---
Portable chest x-ray Comparison: 06/24/2024 Clinical History: Increased respiratory rate Findings: Tracheostomy cannula and right-sided central venous line are in place. There is central co ngestive change and probable mild interstitial edema. Possible minimal left pleural effusion. Cardio mediastinal silhouette is stable, with pacemaker device. Bones and soft tissues are unremarkable. Impression: Support tubes, as above. Central congestive change with mild interstitial edema and probable minimal left pleural effusion. Reviewed, dictated and finalized at location M. 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 Central congestive change with mild interstitial edema and probable minimal lef t pleural effusion.
--- NOTE | ~2024-06-02 | XR_ITS ---
EXAMINATION: XR chest 1V portable DATE: 06/14/2024 05:41 INDICATION: Intubation. TECHNIQUE: A single frontal view of the chest was obtained. COMPARISON: Chest single view 06/13/2024 FINDINGS: There are airspace opacities in all lung zones bilaterally, worst in left mid and lower ramon g zones. No definite pleural effusion. No pneumothorax. Cardiomegaly is noted. There is a prominent l eft pericardial fat pad. The endotracheal tube tip is 4.3 cm above the esha. The nasogastric tube t ip is beyond the inferior margin of the radiograph, but at least to the stomach. A right internal jug ular central venous catheter is seen with tip in the right atrium. There are changes of median sterno estefanía. There is a left chest pacer with lead in right atrium and with epicardial leads. IMPRESSION: 1. Stable diffuse lung disease, consistent with pulmonary edema versus pneumonia. 2. Cardiomegaly. Reviewed, dictated and finalized at location A. IMPRESSION: 1. Stable diffuse lung disease, consistent with pulmonary edema versus pneumoni a. 2. Cardiomegaly.
--- NOTE | ~2024-06-02 | XR_ITS ---
EXAMINATION: XR chest ET placement, XR abdomen gastric tube insert DATE: 06/05/2024 09:30 INDICATION: Intubation and orogastric tube insertion TECHNIQUE: 1. Portable AP upright view of the chest was obtained. 2. Portable AP upright view of the abdomen was obtained on 2 images. COMPARISON: Chest radiograph dated 06/05/2024 at 2:14 AM FINDINGS: Chest: Endotracheal tube tip 2.2 cm above the esha. Right internal jugular central venous catheter with di stal tip at the caudal superior vena cava. Diffuse patchy airspace opacities throughout both lungs. No pneumothorax or definitive pleural effusi on. Cardiomegaly. Postoperative change of prior median sternotomy presumably for coronary artery bypa ss grafting. Cardiac pacemaker with one lead terminating at the right atrium and the second likely ep icardial pacemaker lead projecting over the right ventricle. Abdomen: Orogastric tube tip in the body the stomach. Relative paucity of bowel gas in the visualized upper ab domen. IMPRESSION: 1. Lines and tubes all in expected positions. 2. Diffuse patchy bilateral lung disease which could represent pulmonary edema and/or pneumonia. 3. Cardiomegaly. Reviewed, dictated and finalized at location A. IMPRESSION: 1. Lines and tubes all in expected positions. 2. Diffuse patchy bilateral lung disease which could represent pulmonary edema and/or pneumonia. 3. Cardiomegaly.
--- NOTE | ~2024-06-02 | XR_ITS ---
Portable chest x-ray Comparison: 06/02/2024 Clinical History: Line placement Findings: Right IJ line present, tip probably in the right atrium. No pneumothorax. Extensive patchy bilateral airspace consolidation is present, worsened from prior exam. Cardiomediastinal silhouette is stable, with pacemaker device. Bones and soft tissues are unremarkable. Impression: Patchy pulmonary consolidation throughout both lungs is worsened from prior exam. Correlate with jer re pulmonary edema versus diffuse pneumonia. Right IJ line in place, tip likely in the right atrium. No pneumothorax. Reviewed, dictated and finalized at location M. Impression: Patchy pulmonary consolidation throughout both lungs is worsened from prior exa m. Correlate with severe pulmonary edema versus diffuse pneumonia. Right IJ line in place, tip likely in the right atrium. No pneumothorax.
--- NOTE | ~2024-06-02 | XR_ITS ---
Portable chest x-ray Comparison: 06/06/2024 Clinical History: Respiratory failure Findings: Endotracheal tube, NG tube, and right IJ line are in place. Extensive bilateral pulmonary airspace disease is present. Cardiomediastinal silhouette is stable, with pacemaker device. Bones an d soft tissues are unremarkable. Impression: Patchy airspace disease throughout both lungs is again present, worst at the left lung base. Correlat e for pulmonary edema, infection, ARDS. Support tubes, as above. Reviewed, dictated and finalized at location . Impression: Patchy airspace disease throughout both lungs is again present, worst at the le ft lung base. Correlate for pulmonary edema, infection, ARDS. Support tubes, as above.
--- NOTE | ~2024-06-02 | XR_ITS ---
XR chest port-a-cath/central Ordering provider: Linda Jj MD History: 54 years Female with . Dialysis catheter placement . Comparison: June 05, 2024 FINDINGS: MEDIASTINUM: The cardiac silhouette is moderately enlarged. Congestive hollis. Endotracheal tube with the tip 3 cm above the esha. Left bipolar pacemaker. Nasoga stric tube is seen with the tip not very clear. Previously seen right central line is not demonstrated at this time. LUNGS: No effusions or pneumothorax. Bilateral alveolar and interstitial opacification suggestive of pulmonary edema. Superimposed pneumonia is not excluded. OTHER: No free air under the diaphragm. IMPRESSION: Cardiomegaly with cardiac decompensation and pulmonary edema. Superimposed pneumonia is not excluded. Reviewed, dictated and finalized at location A. IMPRESSION: Cardiomegaly with cardiac decompensation and pulmonary edema. Superimposed pneu monia is not excluded.
--- NOTE | ~2024-06-02 | XR_ITS ---
EXAMINATION: XR fl guide central line place DATE: 06/22/2024 14:25 INDICATION: Tunneled dialysis catheter TECHNIQUE: 2 fluoroscopic images of the upper chest were obtained during procedure performed by Dr. Francisco hopkins. Radiologist was not present for the imaging or procedure. The amount of fluoroscopy time used during this procedure was 0.4 minutes. COMPARISON: 06/21/2024 FINDINGS: Interval placement of a large bore dual-lumen likely tunneled right internal jugular central venous c atheter with distal tip at the level of the caudal superior vena cava. There is a slight kink along t he concave side of the catheter at its apex in the neck. Endotracheal tube with distal tip above leve l of the esha. Nasogastric tube through the distal esophagus and beyond the inferior margin of the field of imaging. Median sternotomy wires and plates and screws. 3-lead cardiac pacemaker with one le ad likely intravascular and the other 2 leads likely extending through the anterior mediastinum. Visu alized portion of the lungs are clear. IMPRESSION: 1. Right internal jugular central venous catheter tip at the caudal superior vena cava. Reviewed, dictated and finalized at location A. IMPRESSION: 1. Right internal jugular central venous catheter tip at the caudal superior ve na cava.
--- NOTE | ~2024-06-02 | XR_ITS ---
EXAMINATION: XR chest 1V portable DATE: 06/15/2024 06:07 INDICATION: Respiratory failure. TECHNIQUE: A single frontal view of the chest was obtained. COMPARISON: Chest single view 06/14/2024 FINDINGS: There are airspace opacities in all lung zones bilaterally. No pleural effusion or pneumoth orax. Cardiomegaly is noted. The endotracheal tube tip is 5.4 cm above the esha. The nasogastric tu be tip is beyond the inferior margin of the radiograph, but at least to the stomach. A right internal jugular central venous catheter is seen with tip at the superior cavoatrial junction. There are reynaga ges of median sternotomy. There is a left chest pacer with lead in right atrium and epicardial leads. IMPRESSION: 1. Diffuse lung disease with improvement on the left, consistent with pulmonary edema versus pneumoni a. 2. Cardiomegaly. Reviewed, dictated and finalized at location A. IMPRESSION: 1. Diffuse lung disease with improvement on the left, consistent with pulmonary edema versus pneumonia. 2. Cardiomegaly.
--- NOTE | ~2024-06-02 | XR_ITS ---
EXAMINATION: XR abdomen gastric tube insert DATE: 06/16/2024 13:52 INDICATION: Nasogastric tube placement. TECHNIQUE: A supine view of the abdomen on 3 radiographs was obtained. COMPARISON: Abdomen radiograph 06/11/2024, chest single view at 5:22 AM FINDINGS: There are no dilated loops of bowel. The nasogastric tube tip is in the stomach. There are airspace opacities in all lung zones bilaterally. No pleural effusion or pneumothorax. Cardiomegaly i s noted. The endotracheal tube tip is 2.7 cm above the esha. Median sternotomy wires are noted. The re is a left chest pacer with leads in right atrium and epicardial leads. IMPRESSION: 1. Nasogastric tube tip in the stomach. 2. Nonobstructive bowel gas pattern. 3. Diffuse lung disease, consistent with pulmonary edema versus pneumonia. 4. Cardiomegaly. Reviewed, dictated and finalized at location A.
--- NOTE | ~2024-06-02 | XR_ITS ---
EXAMINATION: XR chest 1V portable DATE: 06/12/2024 06:05 INDICATION: Acute respiratory failure. TECHNIQUE: A single frontal view of the chest was obtained on 2 radiographs. COMPARISON: Chest single view 06/11/2024 FINDINGS: The patient is rotated to her left. There are airspace and interstitial opacities throughou t the lungs bilaterally. No definite pleural effusion. No pneumothorax. Cardiomegaly is noted. There is a prominent left pericardial fat pad. There are changes of median sternotomy. There is a left ches t pacer with a lead in the right ventricle and epicardial leads. The endotracheal tube tip is 4.7 cm above the esha. The nasogastric tube tip is beyond the inferior margin of the radiograph, but at le ast to the stomach. A right internal jugular central venous catheter is seen with tip at the superior cavoatrial junction. IMPRESSION: 1. Diffuse lung disease with improvement at right lung base, consistent with pulmonary edema versus p neumonia. 2. Cardiomegaly. Reviewed, dictated and finalized at location A. IMPRESSION: 1. Diffuse lung disease with improvement at right lung base, consistent with pu lmonary edema versus pneumonia. 2. Cardiomegaly.
--- NOTE | ~2024-06-02 | US_ITS ---
EXAMINATION: US venous doppler UE DATE: 06/28/2024 15:06 INDICATION: Upper limb swelling. Fever. TECHNIQUE: Grayscale ultrasound images without and with compression and Doppler ultrasound images of the bilateral upper extremity veins were obtained. COMPARISON: None. FINDINGS: The visualized portions of the right internal jugular vein, subclavian vein, axillary vein, brachial veins, basilic vein, cephalic vein, radial vein, and ulnar vein are patent. The visualized portions of the left internal jugular vein, subclavian vein, axillary vein, brachial v eins, basilic vein, cephalic vein, radial vein, and ulnar vein are patent. IMPRESSION: 1. No deep venous thrombosis. Reviewed, dictated and finalized at location A. 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
--- NOTE | ~2024-06-02 | XR_ITS ---
EXAMINATION: XR chest 1V portable DATE: 06/23/2024 06:03 INDICATION: Respiratory failure TECHNIQUE: frontal view of the chest was obtained. COMPARISON: Chest radiograph dated 06/22/2024 FINDINGS: Endotracheal tube tip 3.0 cm above the esha. Nasogastric tube extends into the stomach with distal tip collimated beyond the inferior margin of the [id number]. Large bore tunneled dual-lumen right internal jugular central venous catheter with distal tip at the superior cavoatrial junction. Small lung volumes with persistent scattered mild opacities in all lung zones. No pneumothorax or def initive pleural effusion. Cardiomegaly. Median sternotomy wires and mediastinal surgical clips are se en, likely from prior coronary artery bypass grafting. 3-lead cardiac pacemaker with right atrial julian d and pair of epicardial leads. IMPRESSION: 1. Lines and tubes in expected positions. 2. No significant change in small lung volumes with mild diffuse opacities and atelectasis, pulmonary edema, pneumonia or some combination thereof. 3. Cardiomegaly. Reviewed, dictated and finalized at location A.
--- NOTE | ~2024-06-02 | XR_ITS ---
XR chest 1V portable 06/09/2024 06:15 Indication: Respiratory failure. ARDS. Pulmonary edema. Procedure: AP portable chest Comparison: Comparison to multiple prior studies sequentially, with oldest reviewed study dated 05/22. Findings: Cardiomegaly with interstitial edema. Possible small left effusion. Stable position to pace maker lead. Endotracheal tube tip 3 cm above the esha. NG tube in the stomach. Right IJ central stephon e tip in the SVC. No pneumothorax. Impression: 1: Cardiomegaly with mild interstitial edema. No significant interval change allowing for technique. Reviewed, dictated and finalized at location B. Impression: 1: Cardiomegaly with mild interstitial edema. No significant interval change al lowing for technique.
--- NOTE | 2024-06-02 10:53 | ECG_ITS ---
Test Date: 2024-06-02 11:45:00 Measurements Intervals Withams Rate: 60 P: 6 AR: 302 QRS: -84 QRSD: 105 T: 66 QT: 360 QTc: 360 Interpretive Statements ELECTRONIC ATRIAL PACEMAKER LEFT AXIS DEVIATION [QRS AXIS < -30] LOW QRS VOLTAGE IN PRECORDIAL LEADS [QRS DEFLECTION < 1.0 mV IN CHEST LEADS] ANTERIOR MYOCARDIAL INFARCTION , PROBABLY OLD [40+ ms Q WAVE AND/OR ST/T ABNORMALITY IN V3/V4] INFERIOR MYOCARDIAL INFARCTION , PROBABLY OLD [40+ ms Q WAVE AND/OR ST/T ABNORMALITY IN II/aVF] No previous ECG available for comparison Electronically Signed On 06-02-2024 11:55:45 CDT by Jeannette Villalpando M.D.
[2024-06-02 12:13] LABS: Basophils Absolute Auto 0.1 K/mm3 (0.0-0.1); Basophils Percent Auto 0.7 % (0.2-1.2); Eosinophils Absolute Auto 0.1 K/mm3 (0-0.3); Eosinophils Percent Auto 1.1 % (0-4.4); Hematocrit 38.8 % (37.0-47.0); Hemoglobin 11.7 g/dL (12.0-15.0); Immature Granulocyte Absolute 0.05 K/mm3 (0.00-0.031); Immature Granulocyte Percent A 0.7 % (0-0.5); Lymphocytes Absolute Auto 1.11 K/mm3 (0.9-3.2); Lymphocytes Percent Auto 14.8 % (18.3-44.2); Mean Corpuscular HGB Conc 30.2 g/dl (32-36); Mean Corpuscular Hemoglobin 27.5 pg (26-34); Mean Corpuscular Volume 91.1 fl (80-100); Mean Platelet Volume 9.8 fl (7.4-10.4); Monocytes Percent Auto 12.6 % (2.6-8.5); Neutrophils Absolute Auto 5.3 K/mm3 (1.3-6.7); Neutrophils Percent Auto 70.1 % (45.5-73.1); Platelet Count Result 333 k/mm3 (150-375); Red Blood Count 4.26 M/mm3 (4.2-5.4); Red Cell Distribution Width 17.7 % (11.5-14.5); White Blood Count 7.5 K/mm3 (4.5-10.0)
[2024-06-02 12:28] LABS: Alanine Aminotransferase 65 U/L (6-35); Albumin Level 3.2 g/dL (3.5-5.1); Alkaline Phosphatase 314 U/L (38-126); Anion Gap 3 mmol/L (4-12); Aspartate Amino Transferase 155 U/L (14-36); Bilirubin,Total 1.6 mg/dL (0.2-1.3); Blood Urea Nitrogen 27 mg/dL (7-17); Calcium 9.9 mg/dL (8.4-10.2); Carbon Dioxide 34 mmol/L (22-30); Chloride 99 mmol/L (98-107); Estimated CRCL calculation 43 ml/min; Estimated Glomerular Filt Rate 24; Glucose 97 mg/dL (65-110); Magnesium 2.1 mg/dL (1.6-2.3); Potassium 4.4 mmol/L (3.4-5.0); Sodium 136 mmol/L (137-145)
[2024-06-02 12:39] LABS: NT Pro B Type Natriuretic Pept 1560 pg/mL (19.9-100); Troponin I < 0.012 ng/mL (0.000-0.034)
--- NOTE | 2024-06-02 13:07 | ED.GENADULT ---
HPI - General Adult General Chief complaint: Unspecified Stated complaint: UTI symptoms, sob Time Seen by Provider: 06/02/24 11:20 History of Present Illness HPI narrative: 54-year-old female presents to the emergency department for evaluation for multiple complaints. Patient states she has had increased generalized weakness over the last few days. Patient states she has also had 20 lb of weight gain and has decreased urinary output. Patient states she is normally on 3-4 L of oxygen by nasal cannula. Related Data Home Medications Medication Instructions Recorded Confirmed amiodarone 200 mg tablet 200 mg PO BID 11/26/23 06/02/24 apixaban 5 mg tablet (Eliquis) 5 mg PO BID 11/26/23 06/02/24 dapagliflozin propanediol 5 mg 5 mg PO DAILY 11/26/23 06/02/24 tablet (Farxiga) famotidine 20 mg tablet 20 mg PO BID 11/26/23 06/02/24 flecainide 100 mg tablet 100 mg PO BID 11/26/23 06/02/24 furosemide 40 mg tablet 40 mg PO BID 11/26/23 06/02/24 gabapentin 100 mg capsule 200 mg PO TID 11/26/23 06/02/24 magnesium oxide 400 mg (241.3 mg 400 mg PO BID 11/26/23 06/02/24 magnesium) tablet metoprolol tartrate 25 mg tablet 25 mg PO BID 11/26/23 06/02/24 potassium chloride 20 mEq 40 meq PO BID 11/26/23 06/02/24 tablet,extended release(part/cryst) albuterol sulfate 90 mcg/actuation 2 puff inhalation Q4H PRN 06/02/24 06/02/24 aerosol inhaler Shortness Of Breath ergocalciferol (vitamin D2) 1,250 50,000 unit PO WEEKLY 06/02/24 06/02/24 mcg (50,000 unit) capsule fluticasone 250 mcg-salmeterol 50 1 inh inhalation BID 06/02/24 06/02/24 mcg/dose blistr powdr for inhalation (Advair Diskus) tiotropium bromide 2.5 2 puff inhalation DAILY 06/02/24 06/02/24 mcg/actuation mist for inhalation (Spiriva Respimat) Allergies Allergy/AdvReac Type Severity Reaction Status Date / Time oxycodone [From Percocet] Allergy Intermediate Hives Verified 06/02/24 11:46 Penicillins Allergy Intermediate Hives Verified 06/02/24 11:46 Review of Systems Review of Systems: All systems reviewed & are unremarkable except as noted in HPI and below [facility] Family History Family History Mother Hypertension Heart attack Social History Social History Smoking packs per day: 0.5 Smoking cigarettes per day: 10.0 Years smoked: 20 Smoking pack-years: 10.00 Smoking status: Former smoker Tobacco type: cigarettes Second hand tobacco smoke exposure: Yes ( smokes in home) Smoking end date: 08/22/07 Additional smoking assessment comments: 2 years since last smoked. Alcohol intake: never Substance use: never Substance use type: does not use Do You Feel Safe in your Home?: Yes Lack of Transportation: No Lack of Food: Never True Current Housing: I Have Housing Concerned About Future Housing: No Difficulty Paying Gas/Electric Bills: No Difficulty Paying for Meds: No Currently Unemployed: No Education: High School Diploma/GED Difficulty w/ Childcare or Family Care: No Spiritual care concerns: No Exam Narrative: APPEARANCE: Well appearing, no pain, no distress, well-nourished. HEAD: normocephalic, atraumatic. EYES: PERRLA/EOMI, conjunctivae clear. NOSE: Normal no drainage EARS:TMS clear with good light reflex. THROAT: Pharynx clear, no exudate. NECK: Supple. No adenopathy, no masses. RESPIRATORY: Airway patent, respirations nonlabored. Clear to auscultation bilaterally, no rales, rhonchi, wheezing. CARDIOVASCULAR: Regular rate and rhythm without murmurs rubs or gallops. ABDOMINAL: Soft, nontender, nondistended, normal bowel sounds MUSCULOSKELETAL: Moves all extremities. Strength/ROM intact, No edema, No calf tenderness. NEURO: Alert. Cranial nerves II through XII intact. Grossly intact SKIN: Warm, dry. Normal Color Course Course Emergency Course: Patient was admitted to the IMU Vital Signs Vital signs: Vital Signs Temperature 98.5 F 06/02/24 10:47 Pulse Rate 60 06/02/24 10:47 Respiratory Rate 20 06/02/24 10:47 Blood Pressure 107/52 L 06/02/24 10:47 Pulse Oximetry 94 06/02/24 10:47 Oxygen Delivery Nasal Cannula 06/02/24 10:47 Oxygen Flow Rate 3 06/02/24 10:47 Temperature 98.0 F 06/02/24 18:44 Pulse Rate 60 06/02/24 18:44 Respiratory Rate 20 06/02/24 18:44 Blood Pressure 90/38 L 06/02/24 18:44 Pulse Oximetry 90 06/02/24 18:44 Oxygen Delivery Nasal Cannula 06/02/24 17:00 Oxygen Flow Rate 4 06/02/24 17:00 Fraction of Inspired Oxygen 94 06/02/24 12:03 Medical Decision Making MDM Narrative Medical decision making narrative: 54-year-old female present to the emergency department for evaluation for decreased urinary output increased generalized weakness. Patient is afebrile with no leukocytosis and a stable hemoglobin 11.7. Patient does have elevated creatinine and BUN. Patient does have an elevated BNP of 15 60. UA is concerning for urinary tract infection. Blood and urine cultures were ordered. Chest x-ray was negative for underlying infection but did show cardiomegaly. Case was discussed with the hospitalist patient was accepted for admission for urinary tract infection. Differential Diagnosis Differential Diagnosis: Pneumonia, UTI, COVID, influenza, RSV, pulmonary edema, CHF, JOVI Vital Signs Vital Signs: Vital Signs Temperature 98.5 F 06/02/24 10:47 Pulse Rate 60 06/02/24 10:47 Respiratory Rate 20 06/02/24 10:47 Blood Pressure 107/52 L 06/02/24 10:47 Pulse Oximetry 94 06/02/24 10:47 Oxygen Delivery Nasal Cannula 06/02/24 10:47 Oxygen Flow Rate 3 06/02/24 10:47 Temperature 98.0 F 06/02/24 18:44 Pulse Rate 60 06/02/24 18:44 Respiratory Rate 20 06/02/24 18:44 Blood Pressure 90/38 L 06/02/24 18:44 Pulse Oximetry 90 06/02/24 18:44 Oxygen Delivery Nasal Cannula 06/02/24 17:00 Oxygen Flow Rate 4 06/02/24 17:00 Fraction of Inspired Oxygen 94 06/02/24 12:03 Lab Data Lab results reviewed: Yes I reviewed the patient's lab results. 06/02/24 12:06 06/02/24 12:06 Labs: Lab Results 06/02/24 06/02/24 Range/Units 12:06 13:47 WBC 7.5 (4.5-10.0) K/mm3 RBC 4.26 (4.2-5.4) M/mm3 Hgb 11.7 L D (12.0-15.0) g/dL Hct 38.8 (37.0-47.0) % MCV 91.1 (80-100) fl MCH 27.5 (26-34) pg MCHC 30.2 L (32-36) g/dl RDW 17.7 H (11.5-14.5) % Plt Count 333 D (150-375) k/mm3 MPV 9.8 (7.4-10.4) fl Immature Gran % (Auto) 0.7 H (0-0.5) % Neut % (Auto) 70.1 (45.5-73.1) % Lymph % (Auto) 14.8 L (18.3-44.2) % Weber % (Auto) 12.6 H (2.6-8.5) % Eos % (Auto) 1.1 (0-4.4) % Baso % (Auto) 0.7 (0.2-1.2) % Lymph # (Auto) 1.11 (0.9-3.2) K/mm3 Weber # (Auto) 1.0 H (0.1-0.6) K/mm3 Eos # (Auto) 0.1 (0-0.3) K/mm3 Baso # (Auto) 0.1 (0.0-0.1) K/mm3 Abs Immat Gran (auto) 0.05 H (0.00-0.031) K/mm3 Absolute Neuts (auto) 5.3 (1.3-6.7) K/mm3 Absolute Nucleated RBC 0.000 (0.0-0.012) K/mm3 Nucleated RBC % 0.0 (0.0-0.2) % Sodium 136 L (137-145) mmol/L Potassium 4.4 (3.4-5.0) mmol/L Chloride 99 (98-107) mmol/L Carbon Dioxide 34 H (22-30) mmol/L Anion Gap 3 L (4-12) mmol/L BUN 27 H (7-17) mg/dL Creatinine 2.10 H (0.7-1.0) mg/dL Estim Creat Clear Calc 43 ml/min Estimated GFR 24 L (59 - ) Glucose 97 (65-110) mg/dL Serum Osmolality Pending Calcium 9.9 (8.4-10.2) mg/dL Magnesium 2.1 (1.6-2.3) mg/dL Total Bilirubin 1.6 H (0.2-1.3) mg/dL AST 155 H (14-36) U/L ALT 65 H (6-35) U/L Alkaline Phosphatase 314 H (38-126) U/L Troponin I < 0.012 (0.000-0.034) ng/mL NT-Pro-B Natriuret Pep 1560 H (19.9-100) pg/mL Total Protein 7.0 (6.3-8.2) g/dL Albumin 3.2 L (3.5-5.1) g/dL Urine Color Dark yellow (Yellow) Urine Appearance Turbid H (Clear) Urine pH 5.0 (5.0-9.0) Ur Specific [place] 1.021 (1.001-1.035) Urine Protein 2+ H (Negative) mg/dL Urine Glucose (UA) Negative (Negative) mg/dL Urine Ketones Trace H (Negative) mg/dL Ur Blood (Man) Non-hemolyzed trace H (Negative) Urine Nitrate Positive H (Negative) Urine Bilirubin 2+ H (Negative) Urine Urobilinogen 2.0 H (<2.0) mg/dL Leukocyte Esterase Rfl 2+ H (Negative) ERICH/UL Urine RBC 6-10 H (0-2) /hpf Urine WBC 51-100 H (0-3) /hpf Ur Squamous Epith Cells Moderate (Few) /hpf Urine Bacteria None seen /hpf Urine Casts >20 Hyaline Casts Present (None) /lpf Imaging Data Radiologist's impression: Impressions Chest X-Ray 06/02/24 11:37 IMPRESSION: 1. Mild pulmonary edema. 2. Cardiomegaly. Discharge Plan Discharge Clinical Impression: JOVI (acute kidney injury), UTI (urinary tract infection) Patient Disposition: Still a Patient Condition: Serious
[2024-06-02 14:21] LABS: Add Urine Microscopic? YES; Appearance Urine Turbid (Clear); Bacteria Urine None Seen /hpf; Bilirubin Urine 2+ (Negative); Blood Urine Non-Hemolyzed Trace (Negative); Color Urine Dark Yellow (Yellow); Glucose Urine UA Negative (Negative); Hyaline Casts Urine Present /lpf; Ketones Urine Trace mg/dL (Negative); Leukocyte Esterase Ur 2+ LEU/UL (Negative); Nitrate Urine Positive (Negative); Non Pathogenic Casts >20; Protein Urine 2+ mg/dL (Negative); Specific Grav Ur 1.021 (1.001-1.035); Squamous Epithelial Cell Urine Moderate /hpf (Few); WBC Urine 51-100 /hpf (0-3)
--- NOTE | 2024-06-02 14:56 | P.HP_ITS ---
H&P: HPI History of Present Illness Date/Time: 06/02/24 14:56 Chief Complaint: Difficulty voiding Narrative: 54-year-old female with a PMHx: of AFib on anticoagulation, pacemaker, type 2 diabetes not on insulin, NAFLD, and morbid obesity, presented to the emergency room with c/o having difficulty urinating.Ms. Spring tells me that for the past 3 days she has noticed that she has been having more trouble trying to urinate as well as noticing a rash located in her pannus. She relates her difficulty urinating to having a rash and large abdomen making it very difficult for her to try an use the bathroom, she also states she has a history of sepsis from urinary tract infection. She denies any fever chills nausea vomiting. Initial ED Work-up reveals: 97.5, RR: 16, heart rate 60, BP 102/52, BUN 27, creatinine 2.10, AST 155, ALT 65, alk-phos 314, BNP 1560, UA positive for UTI, urine culture pending, blood cultures pending Review of Systems Review of Systems: All systems reviewed & are unremarkable except as noted in HPI and below PMFSH Family History Family History Mother Hypertension Heart attack Social History Social History Smoking packs per day: 0.5 Smoking cigarettes per day: 10.0 Years smoked: 20 Smoking pack-years: 10.00 Smoking status: Former smoker Tobacco type: cigarettes Second hand tobacco smoke exposure: Yes ( smokes in home) Smoking end date: 08/22/07 Additional smoking assessment comments: 2 years since last smoked. Alcohol intake: never Substance use: never Substance use type: does not use Do You Feel Safe in your Home?: Yes Lack of Transportation: No Lack of Food: Never True Current Housing: I Have Housing Concerned About Future Housing: No Difficulty Paying Gas/Electric Bills: No Difficulty Paying for Meds: No Currently Unemployed: No Education: High School Diploma/GED Difficulty w/ Childcare or Family Care: No Spiritual care concerns: No Meds Home Medications and Allergies Home Medications Medication Instructions Recorded Confirmed Type amiodarone 200 mg tablet 200 mg PO BID 11/26/23 06/02/24 History apixaban 5 mg tablet (Eliquis) 5 mg PO BID 11/26/23 06/02/24 History dapagliflozin propanediol 5 mg 5 mg PO DAILY 11/26/23 06/02/24 History tablet (Farxiga) famotidine 20 mg tablet 20 mg PO BID 11/26/23 06/02/24 History flecainide 100 mg tablet 100 mg PO BID 11/26/23 06/02/24 History furosemide 40 mg tablet 40 mg PO BID 11/26/23 06/02/24 History gabapentin 100 mg capsule 200 mg PO TID 11/26/23 06/02/24 History magnesium oxide 400 mg (241.3 mg 400 mg PO BID 11/26/23 06/02/24 History magnesium) tablet metoprolol tartrate 25 mg tablet 25 mg PO BID 11/26/23 06/02/24 History potassium chloride 20 mEq 40 meq PO BID 11/26/23 06/02/24 History tablet,extended release(part/cryst) albuterol sulfate 90 mcg/actuation 2 puff inhalation Q4H PRN 06/02/24 06/02/24 History aerosol inhaler Shortness Of Breath ergocalciferol (vitamin D2) 1,250 50,000 unit PO WEEKLY 06/02/24 06/02/24 History mcg (50,000 unit) capsule fluticasone 250 mcg-salmeterol 50 1 inh inhalation BID 06/02/24 06/02/24 History mcg/dose blistr powdr for inhalation (Advair Diskus) tiotropium bromide 2.5 2 puff inhalation DAILY 06/02/24 06/02/24 History mcg/actuation mist for inhalation (Spiriva Respimat) Allergies Allergy/AdvReac Type Severity Reaction Status Date / Time oxycodone [From Percocet] Allergy Intermediate Hives Verified 06/02/24 11:46 Penicillins Allergy Intermediate Hives Verified 06/02/24 11:46 Vital Signs Vital Signs - 24 hr 06/02/24 10:47 06/02/24 12:01 06/02/24 12:03 Temperature 98.5 F Pulse Rate 60 60 Respiratory Rate 20 16 15 Blood Pressure 107/52 L 112/56 L Pulse Oximetry 94 93 Oxygen Delivery Nasal Cannula Oxygen Flow Rate 3 3 Fraction of Inspired Oxygen 94 06/02/24 13:51 10/12/24 14:00 Temperature Pulse Rate 60 Respiratory Rate 25 H Blood Pressure 98/56 L Pulse Oximetry 91 93 Oxygen Delivery Nasal Cannula Oxygen Flow Rate 4 Fraction of Inspired Oxygen Exam Narrative: APPEARANCE: morbidly obese, no acute distress, awake, mild anxiety, sitting up in bed HEAD: normocephalic, atraumatic. EYES: PERRLA/EOMI, conjunctivae clear. NOSE: Normal no drainage EARS:TMS clear with good light reflex. THROAT: Pharynx clear, no exudate. NECK: Supple. No adenopathy, no masses. RESPIRATORY: Airway patent, respirations nonlabored. Clear to auscultation bilaterally, no rales, rhonchi, wheezing. CARDIOVASCULAR: Regular rate and rhythm without murmurs rubs or gallops. ABDOMINAL: large round, distended with striae, excoriation to pannus MUSCULOSKELETAL: Moves all extremities. Strength/ROM intact, No edema, No calf tenderness. NEURO: Alert. Cranial nerves II through XII intact. Grossly intact SKIN: Warm, dry. Moderate excoriation bilateral inner thighs, and large pannus area H&P: Results Labs Labs: Short CBC 06/02/24 Range/Units 12:06 WBC 7.5 (4.5-10.0) K/mm3 Hgb 11.7 L D (12.0-15.0) g/dL Hct 38.8 (37.0-47.0) % Plt Count 333 D (150-375) k/mm3 BMP 06/02/24 12:06 Sodium 136 L Potassium 4.4 Chloride 99 Carbon Dioxide 34 H BUN 27 H Creatinine 2.10 H Glucose 97 Calcium 9.9 Cardiac Enzymes 06/02/24 Range/Units 12:06 Troponin I < 0.012 (0.000-0.034) ng/mL Liver Function 06/02/24 Range/Units 12:06 Total Bilirubin 1.6 H (0.2-1.3) mg/dL AST 155 H (14-36) U/L ALT 65 H (6-35) U/L Alkaline Phosphatase 314 H (38-126) U/L Albumin 3.2 L (3.5-5.1) g/dL Urine 06/02/24 Range/Units 13:47 Urine Color Dark yellow (Yellow) Urine Appearance Turbid H (Clear) Urine pH 5.0 (5.0-9.0) Ur Specific [place] 1.021 (1.001-1.035) Urine Protein 2+ H (Negative) mg/dL Urine Glucose (UA) Negative (Negative) mg/dL Pulse Oximetry Attestation: I personally reviewed and interpreted this pulse oximetry as follows: ECG Attestation: I personally reviewed and interpreted this ECG as follows: ECG completion date: 06/02/24 ECG completion time: 11:45 Prior ECG tracings: not available for review Interpretation: ELECTRONIC ATRIAL PACEMAKER LEFT AXIS DEVIATION [QRS AXIS < -30] LOW QRS VOLTAGE IN PRECORDIAL LEADS [QRS DEFLECTION < 1.0 mV IN CHEST LEADS] ANTERIOR MYOCARDIAL INFARCTION , PROBABLY OLD [40+ ms Q WAVE AND/OR ST/T ABNORMALITY IN V3/V4] INFERIOR MYOCARDIAL INFARCTION , PROBABLY OLD [40+ ms Q WAVE AND/OR ST/T ABNORMALITY IN II/aVF] No previous ECG available for comparison Electronically Signed On 06-02-2024 11:55:45 CDT by Jeannette Villalpando M.D. Pacemaker model: Electronic atrial pacemaker Imaging Chest x-ray: Radiologist's impression: Mild pulmonary edema Cardiomegaly Assessment and Plan Assessment and plan (1) JOVI (acute kidney injury): Code(s): N17.9 - Acute kidney failure, unspecified Status: Acute Assessment and Plan: Creatinine is 2.10 Suspect likely from infection/difficulty urinating -check BMP daily -monitor/record I&O - (2) UTI (urinary tract infection): Code(s): N39.0 - Urinary tract infection, site not specified Status: Acute Assessment and Plan: As evidenced by UA, urine cultures pending -s/p: Levaquin 750 IV given in the ED -pharmacy consulted, plan is to DC Levaquin, aware of penicillin allergy -start ceftriaxone 1 g IV Q 24 in the a.m. 9:00 a.m. -insert Lai, due to body habitus, patient unable to void -bladder scan q.4 hours p.r.n. (3) Morbid obesity with BMI of 50.0-59.9, adult: Code(s): E66.01 - Morbid (severe) obesity due to excess calories; Z68.43 - Body mass index [BMI] 50.0-59.9, adult Status: Acute Assessment and Plan: BMI > 50 -up with assistance (4) Pulmonary edema: Code(s): J81.1 - Chronic pulmonary edema Status: Acute Assessment and Plan: As evidence by chest x-ray -daily weights -fluid restriction (5) Type 2 diabetes mellitus: Code(s): E11.9 - Type 2 diabetes mellitus without complications Status: Acute Assessment and Plan: -unknown last A1c -bedside glucose management -hypoglycemia protocol -check A1c (6) Afib: Code(s): I48.91 - Unspecified atrial fibrillation Status: Acute Assessment and Plan: -continue telemetry monitoring --continue home medication apixaban (7) Yeast infection of the skin: Code(s): B37.2 - Candidiasis of skin and nail Status: Acute Assessment and Plan: Suspect secondary from medication/diabetes -moderate excoriation genital area bilateral groin -start fluconazole 100 mg p.o. daily started 12:00 p.m. for 5 doses Plan Continue home medications: VTE Prophylaxis: apixaban DIET:heart healthy Anticipated hospital stay: > 2days Code Status: full Quality VTE Prophylaxis VTE prophylaxis: pharmacologic ordered Hospitalist MIPS Advance Care Plan I have confirmed that the patient's Advanced Care Plan is present, code status is documented, or surrogate decision maker is listed in patient medical record.: Yes Medication Reconciliation I have utilized all available resources to obtain, update and review the patients current medications (includes all prescriptions, OTC, herbals, cannabis, and nutritional supplements).: Yes
[2024-06-02] MEDS: SODIUM CHLORIDE 0.9% IV 1,000 ML 999 ML IV CONT (14:58)
[2024-06-02] MEDS: levoFLOXacin 750 MG/D5W 150 ML 750 MG/150 ML BAG 100 MG IVPB (15:37)
--- NOTE | 2024-06-02 16:03 | PC.NURSE ---
report from EXHIBIT PREPARATOR at [id number]
--- NOTE | 2024-06-02 16:30 | ADMGEN ---
This patient, Ariana Spring, was admitted to IMU Room 232-01. Patient/family oriented to hospital policies and general routines including ID bracelet, bed and alarms, visiting hours, pain management, procedures, bathroom and other care routines, personal items, smoking policy, room service/diet, and visiting hours. Information on how to activate the Rapid Response Team has been discussed. Patient/Family are encouraged to report perceived risks to care and to ask questions if they do not understand what they are told or what they should do.
--- NOTE | 2024-06-02 18:36 | PC.NURSE ---
[facility] flyer was given to patient.
[2024-06-02] MEDS: APIXABAN 5 MG TABLET PO (20:39)
[2024-06-02] MEDS: FAMOTIDINE 20 MG TABLET PO (20:40)
[2024-06-02] MEDS: METOPROLOL TARTRATE 25 MG TABLET PO (20:40)
[2024-06-02] MEDS: FLECAINIDE ACETATE 100 MG TABLET PO (20:40)
[2024-06-02] MEDS: GABAPENTIN 100 MG CAPSULE 200 MG PO (20:40)
[2024-06-02 20:59] LABS: Glucose Point of Care 138 mg/dl (65-105)
[2024-06-03] VITALS (30 sets, daily range): BP systolic 90–119; BP diastolic 37–56; PULSE 59–62; RESP 15–25; TEMP 36.3–36.8; O2SAT 86–96
[2024-06-03] MEDS: AMIODARONE HCL 200 MG TABLET PO ×3 (00:19→21:27)
[2024-06-03 05:30] LABS: Basophils Absolute Auto 0.1 K/mm3 (0.0-0.1); Basophils Percent Auto 0.6 % (0.2-1.2); Eosinophils Absolute Auto 0.1 K/mm3 (0-0.3); Eosinophils Percent Auto 1.1 % (0-4.4); Hematocrit 36.8 % (37.0-47.0); Hemoglobin 10.9 g/dL (12.0-15.0); Immature Granulocyte Absolute 0.05 K/mm3 (0.00-0.031); Immature Granulocyte Percent A 0.6 % (0-0.5); Lymphocytes Absolute Auto 1.44 K/mm3 (0.9-3.2); Lymphocytes Percent Auto 17.1 % (18.3-44.2); Mean Corpuscular HGB Conc 29.6 g/dl (32-36); Mean Corpuscular Hemoglobin 27.3 pg (26-34); Mean Platelet Volume 10.1 fl (7.4-10.4); Monocytes Absolute Auto 1.2 K/mm3 (0.1-0.6); Monocytes Percent Auto 14.7 % (2.6-8.5); Neutrophils Absolute Auto 5.5 K/mm3 (1.3-6.7); Neutrophils Percent Auto 65.9 % (45.5-73.1); Platelet Count Result 321 k/mm3 (150-375); Red Cell Distribution Width 17.6 % (11.5-14.5); White Blood Count 8.4 K/mm3 (4.5-10.0)
[2024-06-03 05:44] LABS: Alanine Aminotransferase 55 U/L (6-35); Albumin Level 2.9 g/dL (3.5-5.1); Alkaline Phosphatase 279 U/L (38-126); Anion Gap 3 mmol/L (4-12); Aspartate Amino Transferase 131 U/L (14-36); Bilirubin,Total 1.4 mg/dL (0.2-1.3); Blood Urea Nitrogen 35 mg/dL (7-17); Calcium 9.6 mg/dL (8.4-10.2); Carbon Dioxide 31 mmol/L (22-30); Chloride 99 mmol/L (98-107); Estimated CRCL calculation 37 ml/min; Estimated Glomerular Filt Rate 19; Glucose 94 mg/dL (65-110); Potassium 4.6 mmol/L (3.4-5.0); Sodium 133 mmol/L (137-145)
[2024-06-03 05:51] LABS: Hemoglobin A1C 5.7 % (<5.7)
[2024-06-03 06:01] LABS: Platelet Estimate Adequate (Adequate)
[2024-06-03 06:02] LABS: Anisocytosis 1+; Hypochromasia 1+
[2024-06-03 06:03] LABS: Schistocytes None Seen
[2024-06-03] MEDS: GABAPENTIN 100 MG CAPSULE 200 MG PO ×3 (06:52→21:10)
[2024-06-03 08:25] LABS: Glucose Point of Care 90 mg/dl (65-105)
[2024-06-03] MEDS: UMECLIDINIUM BROMIDE 62.5 MCG ELLIPTA 1 PUFF INHALATION (09:03)
[2024-06-03] MEDS: FLUTICASONE/SALMETEROL 115-21 MCG INHALER 1 PUFF 2 PUFF INHALATION ×2 (09:03→20:29)
[2024-06-03] MEDS: APIXABAN 5 MG TABLET PO ×2 (09:14→21:10)
[2024-06-03] MEDS: FLECAINIDE ACETATE 100 MG TABLET PO ×2 (09:14→21:27)
[2024-06-03] MEDS: FAMOTIDINE 20 MG TABLET PO ×2 (09:14→21:10)
[2024-06-03] MEDS: FUROSEMIDE 40 MG TABLET PO (09:15)
[2024-06-03] MEDS: POTASSIUM CHLORIDE 20 MEQ ER TABLET 40 MEQ PO (09:15)
[2024-06-03] MEDS: MAGNESIUM OXIDE 400 MG TABLET PO (09:16)
[2024-06-03] MEDS: FLUCONAZOLE 100 MG TABLET PO (11:49)
[2024-06-03 12:25] LABS: Glucose Point of Care 132 mg/dl (65-105)
--- NOTE | 2024-06-03 12:52 | PC.NURSE ---
pt assisted to sit up at bedside with nurse and , pt reports she normally sleeps in a recliner at home, will attempt to locate a bariatric recliner if possible
[2024-06-03 14:14] LABS: Alveolar/Arterial O2 Gradient 282.2 mmHg; Base Excess ABG 1.3 mEq/l (+/-2.0); Fractional Inspired Oxygen 56 %; Oxygen Content ABG 14.7 %vol (16.0-22.0); Oxyhemoglobin 88.5 % THb (90.0-100.0); PCO2 ABG 53.9 mmHg (35.0-45.0); PO2 ABG 57.3 mmHg (80.0-100.0); PO2 FiO2 Ratio Arterial Blood 1.02 %; Total Hemoglobin 11.8 g/dL (12.0-18.0); pH ABG 7.334 (7.350-7.450)
[2024-06-03 14:15] LABS: Oxygen Saturation ABG 87.5 % (95.0-100.0); Site Drawn LEFT BRACHIAL
[2024-06-03 14:16] LABS: Device HIGH FLOW NASAL CANN
--- NOTE | 2024-06-03 15:25 | PCPTNOTE ---
attempted PT eval, pt is sleeping with CPAP, pt agrees to participate but pt unable to stay awake for questions, will follow
[2024-06-03 16:05] LABS: Glucose Point of Care 102 mg/dl (65-105)
[2024-06-03 16:15] LABS: Alveolar/Arterial O2 Gradient 236.7 mmHg; Base Excess ABG 3.3 mEq/l (+/-2.0); Fractional Inspired Oxygen 55 %; HCO3 ABG 30.7 mEq/l (22.0-26.0); Oxygen Content ABG 15.9 %vol (16.0-22.0); Oxygen Saturation ABG 95.8 % (95.0-100.0); Oxyhemoglobin 96.1 % THb (90.0-100.0); PO2 ABG 88.1 mmHg (80.0-100.0); Total Hemoglobin 11.7 g/dL (12.0-18.0); pH ABG 7.323 (7.350-7.450)
[2024-06-03 16:16] LABS: Device NON-INVASIVE VENT; PCO2 ABG 60.5 mmHg (35.0-45.0); Site Drawn LEFT BRACHIAL
[2024-06-03 16:17] LABS: Non-Invasive Expiratory Pressure 8 CMH2O; Non-Invasive Inspiratory Pressure 16 CMH2O; Non-Invasive Vent Rate 12 /MIN
--- NOTE | 2024-06-03 16:59 | P.PN_ITS ---
Progress Note: A&P Assessment and Plan (1) JOVI (acute kidney injury): Code(s): N17.9 - Acute kidney failure, unspecified Status: Acute Assessment and Plan: Creatinine is 2.10 Suspect likely from infection/difficulty urinating -check BMP daily -monitor/record I&O - (2) UTI (urinary tract infection): Code(s): N39.0 - Urinary tract infection, site not specified Status: Acute Assessment and Plan: As evidenced by UA, urine cultures pending -s/p: Levaquin 750 IV given in the ED -pharmacy consulted, plan is to DC Levaquin, aware of penicillin allergy -start ceftriaxone 1 g IV Q 24 in the a.m. 9:00 a.m. -insert Lai, due to body habitus, patient unable to void -bladder scan q.4 hours p.r.n. (3) Morbid obesity with BMI of 50.0-59.9, adult: Code(s): E66.01 - Morbid (severe) obesity due to excess calories; Z68.43 - Body mass index [BMI] 50.0-59.9, adult Status: Acute Assessment and Plan: BMI > 50 -up with assistance (4) Pulmonary edema: Code(s): J81.1 - Chronic pulmonary edema Status: Acute Assessment and Plan: As evidence by chest x-ray -daily weights -fluid restriction (5) Type 2 diabetes mellitus: Code(s): E11.9 - Type 2 diabetes mellitus without complications Status: Acute Assessment and Plan: -unknown last A1c -bedside glucose management -hypoglycemia protocol -check A1c (6) Afib: Code(s): I48.91 - Unspecified atrial fibrillation Status: Acute Assessment and Plan: -continue telemetry monitoring --continue home medication apixaban (7) Yeast infection of the skin: Code(s): B37.2 - Candidiasis of skin and nail Status: Acute Assessment and Plan: Suspect secondary from medication/diabetes -moderate excoriation genital area bilateral groin -start fluconazole 100 mg p.o. daily started 12:00 p.m. for 5 doses Plan patient is a morbidly obese presented with difficulty urinating and painful to urinate, urine is concerning for UTI and patient is being treated with ceftriaxone and will follow-up on urine and blood culture patient also complains of shortness of breath most likely hypoventilation secondary to morbid obesity ABG showed elevated CO2 patient is placed on CPAP and will monitor and adjust her oxygen as needed. Will have PT evaluate the patient. Continue home medications: VTE Prophylaxis: apixaban DIET:heart healthy Anticipated hospital stay: > 2days Code Status: full Subjective Date/time seen: 06/03/24 16:59 Interval history: patient is a morbidly obese presented with difficulty urinating and painful to urinate, urine is concerning for UTI and patient is being treated with ceftriaxone and will follow-up on urine and blood culture patient also complains of shortness of breath most likely hypoventilation secondary to morbid obesity ABG showed elevated CO2 patient is placed on CPAP and will monitor and adjust her oxygen as needed. Will have PT evaluate the patient. Review of Systems Review of Systems: All systems reviewed & are unremarkable except as noted in HPI and below Exam Narrative: Patient is comfortable, NAD HEENT: eyes are clear and none icteric LUNGS:CTA HEART: RR S1S2 ABD: BS+, Soft and nontender Lower extremities: no edema SKIN: nonjaundiced Neuro: grossly intact. Objective Data Vital Signs Vital Signs: Vital Signs - 24 hr 06/02/24 17:00 06/02/24 18:44 06/02/24 18:45 Temperature 36.7 C Pulse Rate 60 Respiratory Rate 20 Blood Pressure 90/38 L 105/51 L Pulse Oximetry 92 90 Oxygen Delivery Nasal Cannula Oxygen Flow Rate 4 06/02/24 19:50 06/02/24 20:10 06/02/24 20:10 Temperature 36.9 C Pulse Rate 60 Respiratory Rate 20 Blood Pressure 105/51 L 89/48 L 92/38 L Pulse Oximetry 96 Oxygen Delivery Oxygen Flow Rate 06/02/24 20:12 06/02/24 20:00 06/02/24 20:40 Temperature Pulse Rate 60 60 Respiratory Rate 22 H Blood Pressure 93/50 L Pulse Oximetry 96 Oxygen Delivery Nasal Cannula Oxygen Flow Rate 4 06/02/24 20:40 06/03/24 00:00 06/03/24 00:19 Temperature 36.3 C L Pulse Rate 65 59 L 60 Respiratory Rate 20 Blood Pressure 90/47 L Pulse Oximetry 90 Oxygen Delivery Oxygen Flow Rate 06/02/24 20:00 06/02/24 22:00 06/03/24 00:00 Temperature Pulse Rate 60 62 62 Respiratory Rate Blood Pressure Pulse Oximetry Oxygen Delivery Oxygen Flow Rate 06/02/24 20:35 06/02/24 20:42 06/02/24 21:00 Temperature Pulse Rate 62 60 60 Respiratory Rate 22 H 20 20 Blood Pressure Pulse Oximetry 87 L 85 L 89 L Oxygen Delivery Nasal Cannula High Flow Nasal Cannula High Flow Nasal Cannula Oxygen Flow Rate 4 5 6 06/02/24 21:15 06/02/24 23:35 06/02/24 23:50 Temperature Pulse Rate 60 62 62 Respiratory Rate 20 20 20 Blood Pressure Pulse Oximetry 91 85 L 92 Oxygen Delivery High Flow Nasal Cannula High Flow Nasal Cannula High Flow Nasal Cannula Oxygen Flow Rate 7 7 8 06/03/24 04:30 06/03/24 04:30 06/03/24 04:45 Temperature 36.8 C Pulse Rate 60 60 60 Respiratory Rate 20 20 20 Blood Pressure 95/50 L Pulse Oximetry 93 93 92 Oxygen Delivery High Flow Nasal Cannula High Flow Nasal Cannula Oxygen Flow Rate 10 9 06/03/24 02:00 06/03/24 04:00 06/03/24 06:00 Temperature Pulse Rate 60 60 60 Respiratory Rate Blood Pressure Pulse Oximetry Oxygen Delivery Oxygen Flow Rate 06/03/24 00:11 06/03/24 00:30 06/03/24 01:33 Temperature Pulse Rate 60 60 60 Respiratory Rate 20 20 20 Blood Pressure Pulse Oximetry 86 L 92 88 L Oxygen Delivery High Flow Nasal Cannula High Flow Nasal Cannula High Flow Nasal Cannula Oxygen Flow Rate 8 9 9 06/03/24 01:50 06/03/24 08:00 06/03/24 09:14 Temperature 36.6 C Pulse Rate 60 60 60 Respiratory Rate 20 16 Blood Pressure 90/37 L Pulse Oximetry 93 94 Oxygen Delivery High Flow Nasal Cannula Oxygen Flow Rate 10 06/03/24 09:14 06/03/24 09:13 06/03/24 10:06 Temperature Pulse Rate 61 60 Respiratory Rate Blood Pressure Pulse Oximetry 94 Oxygen Delivery High Flow Nasal Cannula Oxygen Flow Rate 9 06/03/24 08:00 06/03/24 08:00 06/03/24 11:24 Temperature Pulse Rate 60 60 Respiratory Rate 20 Blood Pressure 119/54 L Pulse Oximetry 94 Oxygen Delivery High Flow Nasal Cannula Oxygen Flow Rate 9 06/03/24 10:00 06/03/24 12:00 06/03/24 12:00 Temperature Pulse Rate 61 60 60 Respiratory Rate 20 Blood Pressure Pulse Oximetry 94 Oxygen Delivery High Flow Nasal Cannula Oxygen Flow Rate 9 06/03/24 12:00 06/03/24 14:40 06/03/24 14:00 Temperature 36.8 C Pulse Rate 60 60 60 Respiratory Rate 20 25 H Blood Pressure 92/39 L Pulse Oximetry 93 92 Oxygen Delivery BiPAP Oxygen Flow Rate 06/03/24 16:00 06/03/24 16:00 06/03/24 16:28 Temperature Pulse Rate 60 60 60 Respiratory Rate 25 H 25 H Blood Pressure Pulse Oximetry 91 91 Oxygen Delivery BiPAP BiPAP Oxygen Flow Rate 06/03/24 16:00 Temperature 36.8 C Pulse Rate 60 Respiratory Rate 15 Blood Pressure 107/56 L Pulse Oximetry 96 Oxygen Delivery Oxygen Flow Rate Intake/Output Intake/Output: Intake & Output 05/31/24 06/01/24 06/02/24 06/03/24 23:59 23:59 23:59 23:59 Intake Total 1270 1250 Output Total 400 Balance 1270 850 Meds/Results Medications: Active Medications Generic Name Dose Route Start Last Admin Trade Name Freq PRN Reason Stop Dose Admin Albuterol 2 puff 06/02/24 19:16 Albuterol Sulfate (*Sp) Aerosol 1 Puff INHALATION Q4HRT PRN Shortness Of Breath Amiodarone HCl 200 mg 06/02/24 21:00 06/03/24 09:14 Amiodarone Hcl 200 Mg Tablet PO 200 mg Q12HR JOHN Administration Apixaban 5 mg 06/02/24 21:00 06/03/24 09:14 Apixaban 5 Mg Tablet PO 5 mg Q12HR JOHN Administration Famotidine 20 mg 06/02/24 21:00 06/03/24 09:14 Famotidine 20 Mg Tablet PO 20 mg Q12HR JOHN Administration Flecainide Acetate 100 mg 06/02/24 21:00 06/03/24 09:14 Flecainide Acetate 100 Mg Tablet PO 100 mg Q12HR JOHN Administration Fluconazole 100 mg 06/03/24 12:00 06/03/24 11:49 Fluconazole 100 Mg Tablet PO 06/07/24 12:01 100 mg DAILY@1200 JOHN Administration Furosemide 40 mg 06/03/24 09:00 06/03/24 09:15 Furosemide 40 Mg Tablet PO 40 mg BID JOHN Administration Gabapentin 200 mg 06/02/24 22:00 06/03/24 14:23 Gabapentin 100 Mg Capsule PO 200 mg Q8HR JOHN Administration Ceftriaxone Sodium 1 gm in 50 mls @ 100 mls/hr 06/03/24 09:00 06/03/24 09:46 Rocephin 1 Gm/Ns 50 Ml IVPB Infused Q24H JOHN Infusion Magnesium Oxide 400 mg 06/03/24 09:00 06/03/24 09:16 Magnesium Oxide 400 Mg Tablet PO 400 mg BID JOHN Administration Metoprolol Tartrate 25 mg 06/02/24 21:00 06/03/24 10:06 Metoprolol Tartrate 25 Mg Tablet PO Not Given Q12HR JOHN Potassium Chloride 40 meq 06/03/24 09:00 06/03/24 09:15 Potassium Chloride 20 Meq Er Tablet PO 40 meq BID JOHN Administration Fluticasone/Salmeterol 2 puff 06/03/24 08:00 06/03/24 09:03 Fluticasone/Salmeterol 115-21 Mcg Inhaler 1 Puff INHALATION 2 puff Q12HRT JOHN Administration Umeclidinium [place] 1 puff 06/03/24 08:00 06/03/24 09:03 Umeclidinium [place] 62.5 Mcg Ellipta INHALATION 1 puff DAILYRT JOHN Administration Radiology Results: ITS Impressions Chest X-Ray 06/02/24 11:37 IMPRESSION: 1. Mild pulmonary edema. 2. Cardiomegaly. Labs Labs: Laboratory Results - last 24 hr 06/02/24 06/03/24 06/03/24 20:53 05:18 05:24 WBC 8.4 RBC 4.00 L Hgb 10.9 L Hct 36.8 L MCV 92.0 MCH 27.3 MCHC 29.6 L RDW 17.6 H Plt Count 321 MPV 10.1 Immature Gran % (Auto) 0.6 H Neut % (Auto) 65.9 Lymph % (Auto) 17.1 L [place] % (Auto) 14.7 H Eos % (Auto) 1.1 Baso % (Auto) 0.6 Lymph # (Auto) 1.44 [place] # (Auto) 1.2 H Eos # (Auto) 0.1 Baso # (Auto) 0.1 Abs Immat Gran (auto) 0.05 H Absolute Neuts (auto) 5.5 Absolute Nucleated RBC 0.000 Nucleated RBC % 0.0 Platelet Estimate Adequate Hypochromasia 1+ Anisocytosis 1+ Schistocytes None seen Puncture Site ABG pH ABG pCO2 ABG pO2 ABG PO2/FiO2 Ratio ABG HCO3 ABG O2 Saturation ABG O2 Content ABG Base Excess A-a Gradient Oxyhemoglobin Total Hemoglobin O2 Delivery Device O2 Liters/Min Vent Rate FiO2 Expiratory Pressure Inspiratory Pressure Sodium 133 L Potassium 4.6 Chloride 99 Carbon Dioxide 31 H Anion Gap 3 L BUN 35 H Creatinine 2.60 H Estim Creat Clear Calc 37 Estimated GFR 19 L Glucose 94 POC Capillary Glucose 138 H Hemoglobin A1c 5.7 Calcium 9.6 Total Bilirubin 1.4 H AST 131 H ALT 55 H Alkaline Phosphatase 279 H Total Protein 6.0 L Albumin 2.9 L TSH 14.800 H 06/03/24 06/03/24 06/03/24 08:14 12:15 14:03 WBC RBC Hgb Hct MCV MCH MCHC RDW Plt Count MPV Immature Gran % (Auto) Neut % (Auto) Lymph % (Auto) [place] % (Auto) Eos % (Auto) Baso % (Auto) Lymph # (Auto) [place] # (Auto) Eos # (Auto) Baso # (Auto) Abs Immat Gran (auto) Absolute Neuts (auto) Absolute Nucleated RBC Nucleated RBC % Platelet Estimate Hypochromasia Anisocytosis Schistocytes Puncture Site Left brachial ABG pH 7.334 L ABG pCO2 53.9 H ABG pO2 57.3 L ABG PO2/FiO2 Ratio 1.02 ABG HCO3 28.0 H ABG O2 Saturation 87.5 L* ABG O2 Content 14.7 L ABG Base Excess 1.3 A-a Gradient 282.2 Oxyhemoglobin 88.5 L Total Hemoglobin 11.8 L O2 Delivery Device High flow nasal [place] O2 Liters/Min 9.0 Vent Rate FiO2 56 Expiratory Pressure Inspiratory Pressure Sodium Potassium Chloride Carbon Dioxide Anion Gap BUN Creatinine Estim Creat Clear Calc Estimated GFR Glucose POC Capillary Glucose 90 132 H Hemoglobin A1c Calcium Total Bilirubin AST ALT Alkaline Phosphatase Total Protein Albumin TSH 06/03/24 06/03/24 15:56 15:57 WBC RBC Hgb Hct MCV MCH MCHC RDW Plt Count MPV Immature Gran % (Auto) Neut % (Auto) Lymph % (Auto) [place] % (Auto) Eos % (Auto) Baso % (Auto) Lymph # (Auto) [place] # (Auto) Eos # (Auto) Baso # (Auto) Abs Immat Gran (auto) Absolute Neuts (auto) Absolute Nucleated RBC Nucleated RBC % Platelet Estimate Hypochromasia Anisocytosis Schistocytes Puncture Site Left brachial ABG pH 7.323 L ABG pCO2 60.5 H* ABG pO2 88.1 ABG PO2/FiO2 Ratio 1.60 ABG HCO3 30.7 H ABG O2 Saturation 95.8 ABG O2 Content 15.9 L ABG Base Excess 3.3 A-a Gradient 236.7 Oxyhemoglobin 96.1 Total Hemoglobin 11.7 L O2 Delivery Device Non-invasive vent O2 Liters/Min Not Reportable Vent Rate 12 FiO2 55 Expiratory Pressure 8 Inspiratory Pressure 16 Sodium Potassium Chloride Carbon Dioxide Anion Gap BUN Creatinine Estim Creat Clear Calc Estimated GFR Glucose POC Capillary Glucose 102 Hemoglobin A1c Calcium Total Bilirubin AST ALT Alkaline Phosphatase Total Protein Albumin TSH Quality VTE Prophylaxis VTE prophylaxis: pharmacologic ordered
[2024-06-03 20:50] LABS: Glucose Point of Care 88 mg/dl (65-105)
--- NOTE | 2024-06-03 22:35 | PC.NURSE ---
Spoke with Giulia Valdovinos regarding b/p, HR, and meds. Received orders to give amiodarone and tambocor but hold metoprolol.
[2024-06-04] VITALS (25 sets, daily range): BP systolic 85–109; BP diastolic 42–78; PULSE 59–68; RESP 20–24; TEMP 36.6–37.2; O2SAT 90–98
[2024-06-04] MEDS: GABAPENTIN 100 MG CAPSULE 200 MG PO ×3 (05:26→21:07)
[2024-06-04 05:43] LABS: Basophils Absolute Auto 0.1 K/mm3 (0.0-0.1); Basophils Percent Auto 0.6 % (0.2-1.2); Eosinophils Absolute Auto 0.1 K/mm3 (0-0.3); Eosinophils Percent Auto 0.8 % (0-4.4); Hematocrit 37.2 % (37.0-47.0); Immature Granulocyte Absolute 0.06 K/mm3 (0.00-0.031); Immature Granulocyte Percent A 0.7 % (0-0.5); Lymphocytes Percent Auto 14.3 % (18.3-44.2); Mean Corpuscular HGB Conc 29.6 g/dl (32-36); Mean Corpuscular Hemoglobin 27.2 pg (26-34); Mean Corpuscular Volume 91.9 fl (80-100); Mean Platelet Volume 10.1 fl (7.4-10.4); Monocytes Absolute Auto 1.2 K/mm3 (0.1-0.6); Monocytes Percent Auto 13.3 % (2.6-8.5); Neutrophils Absolute Auto 6.4 K/mm3 (1.3-6.7); Neutrophils Percent Auto 70.3 % (45.5-73.1); Platelet Count Result 322 k/mm3 (150-375); Red Blood Count 4.05 M/mm3 (4.2-5.4); Red Cell Distribution Width 17.6 % (11.5-14.5); White Blood Count 9.1 K/mm3 (4.5-10.0)
[2024-06-04 05:52] LABS: Alanine Aminotransferase 53 U/L (6-35); Albumin Level 3.1 g/dL (3.5-5.1); Alkaline Phosphatase 281 U/L (38-126); Anion Gap 6 mmol/L (4-12); Aspartate Amino Transferase 132 U/L (14-36); Bilirubin,Total 1.3 mg/dL (0.2-1.3); Blood Urea Nitrogen 44 mg/dL (7-17); Carbon Dioxide 29 mmol/L (22-30); Chloride 98 mmol/L (98-107); Estimated CRCL calculation 28 ml/min; Estimated Glomerular Filt Rate 13; Glucose 106 mg/dL (65-110); Potassium 5.2 mmol/L (3.4-5.0); Sodium 133 mmol/L (137-145)
[2024-06-04 06:37] LABS: Hypochromasia 1+; Platelet Estimate Adequate (Adequate); Schistocytes None Seen
[2024-06-04 07:53] LABS: Glucose Point of Care 103 mg/dl (65-105)
[2024-06-04] MEDS: FLUTICASONE/SALMETEROL 115-21 MCG INHALER 1 PUFF 2 PUFF INHALATION ×2 (08:18→20:57)
[2024-06-04] MEDS: UMECLIDINIUM BROMIDE 62.5 MCG ELLIPTA 1 PUFF INHALATION (08:19)
[2024-06-04] MEDS: APIXABAN 5 MG TABLET PO ×2 (09:36→20:37)
[2024-06-04] MEDS: AMIODARONE HCL 200 MG TABLET PO ×2 (09:36→20:37)
[2024-06-04] MEDS: FAMOTIDINE 20 MG TABLET PO ×2 (09:37→20:37)
[2024-06-04] MEDS: METOPROLOL TARTRATE 25 MG TABLET PO (09:37)
[2024-06-04] MEDS: FUROSEMIDE 40 MG TABLET PO (09:37)
[2024-06-04] MEDS: FLECAINIDE ACETATE 100 MG TABLET PO ×2 (09:37→20:37)
[2024-06-04] MEDS: MAGNESIUM OXIDE 400 MG TABLET PO ×2 (09:37→17:56)
--- NOTE | 2024-06-04 09:40 | PCPTNOTE ---
Attempted PT evaluation, Pt currently transitioned to BiPap to get O2 saturations stabilized. Will follow.
--- NOTE | 2024-06-04 11:26 | P.CONNP_ITS ---
Assessment and Plan Assessment and plan (1) JOVI (acute kidney injury): Code(s): N17.9 - Acute kidney failure, unspecified Status: Acute Assessment and Plan: * normal creatinine ~ 1 month ago * admitted with a creatinine of 2.1mg/dl with ongoing worsening noted * etiology not clear but several possibilities: * relative hypotension * early sepsis * infection (UTI +/- pneumonia) -- although culture negative to date * hypoxia * SLE flare (?) * other? * check renal ultrasound * check urine studies and CPK as well as complements * diuretics on hold at this time - resume as BP tolerates * optimize hemodynamics as tolerated * remains at risk for DEMOLITION ENGINEER/dialysis * follow repeat labs and UOP (2) Hypotension: Code(s): I95.9 - Hypotension, unspecified Status: Acute Assessment and Plan: * slowly worsening since admission * possible early shock? * started on IV albumin and midodrine * follow trend of hemodynamics (3) Pulmonary edema: Code(s): J81.1 - Chronic pulmonary edema Status: Acute Assessment and Plan: * as noted by admission imaging * IV diuresis as tolerated by hemodynamics * follow respiratory status closely (4) UTI (urinary tract infection): Code(s): N39.0 - Urinary tract infection, site not specified Status: Ruled-out Assessment and Plan: * admission UA highly suggestive * follow-up on culture data * on antibiotics (5) Yeast infection of the skin: Code(s): B37.2 - Candidiasis of skin and nail Status: Acute Assessment and Plan: * suspect secondary from medication versus diabetes * noted moderate excoriation genital area and bilateral groins * on fluconazole (6) Type 2 diabetes mellitus: Code(s): E11.9 - Type 2 diabetes mellitus without complications Status: Acute Assessment and Plan: * follow accu-cheks * glycemic control per hospitalist I will continue to follow the patient with you while he remains hospitalized and make further recommendations as deemed necessary. Thank you for allowing me to participate in the care of this patient. History of Present Illness Reason for Consult Consult date: 06/04/24 Reason for consult: acute renal failure Chief Complaint Chief complaint: JOVI, UTI, generalized weakness History of Present Illness Narrative: The patient is a 54-year-old female with an extensive past medical history as outlined below who presented to [facility] Emergency room with complaints of difficulty urinating. Apparently, for the past three or four days prior to her presentation to the ER, the patient's nose that she has been having increasing difficulty in urination. She attributes this issue/problem with a ongoing rash on her pannus as well as her large abdomen making using the bathroom very difficult. She reports no other subjective symptoms with regard to fevers, chills, nausea, vomiting, palp itations, dizziness, lightheadedness or diaphoresis. Upon further questioning, she does report some increase in shortness of breath in association with generalized weakness. Furthermore, she thinks she has gained about 20 lb which she thinks is related to fluid retention. Given these constellation of symptoms as mentioned, she presented to the emergency room for further assessment. Workup and evaluation in emergency room demonstrated the patient to be hemodynamically stable although her BP was on the somewhat lower side in the 100 systolic range but she was afebrile. Routine testing demonstrated evidence of acute kidney injury with a creatinine of 2.1 association with a BUN of 27 with n o critical electrolyte abnormalities, I urinalysis highly suggestive of urinary tract infection, mildly elevated LFTs, and a proBNP of 1560. Her chest x-ray showed evidence of pulmonary edema. After appropriate cultures were obtained, she was started antibiotics for her presumed urinary tract infection and subsequently admitted to the hospital for further evaluation and therapy. Since her admission, she has continued to have issues and problems with voiding and a Lai catheter had to be placed. Furthermore, her blood pressure continued to run soft with a ventral significant hypotension. Her repeat labs done yesterday did show an increase in her creatinine up to 2.6 mg/dL with repeat labs done this morning show her creatinine up to 3.6 mg/dL. Furthermore, her respiratory status has been fluctuating and she is currently on BiPAP therapy in effort to maintain her oxygenation. Renal consultation was requested due to her acute kidney injury/ acute renal failure. At baseline, the patient has normal renal function with a creatinine of 0.9 mg/dL about a month ago. However, she does have significant risk factors for kidney disease in the form of chronic respiratory failure, hypertension, liver disease, obesity, obstructive sleep apnea, frequent urinary tract infections, and a distant history SLE. In spite of her worsening creatinine, she has no critical electrolyte abnormalities per urine output has been sluggish despite placement of a Lai catheter. IV diuretics have been instituted however her relative hypotension makes it difficult to give these medications safely. Efforts optimize her hemodynamics with IV albumin have been instituted as well. Currently, at the time my evaluation, the patient appears to be doing somewhat better in spite of the issues and problems that lead to her admission to the hospital. Review of Systems Review of Systems: As per HPI. [facility] Past Medical History Medical History (Updated 06/16/24 @ 07:59 by Hector Kwok MD) Asthma Per patient report but PFTs within our system demonstrated restrictive lung disease not obstructive Atrial fibrillation Chronic respiratory failure with hypoxia and hypercapnia On 3 L nasal cannula home. Intolerant BiPAP. Depression Essential hypertension GERD (gastroesophageal reflux disease) Hyperparathyroidism Liver cirrhosis secondary to [place] Migraines Morbid obesity with body mass index (BMI) greater than or equal to 50 Obstructive sleep apnea Intolerant of BiPAP Restrictive lung disease Restrictive lung disease noted on PFTs within the old record system. No mention of obstructive disease on that pulmonary function testing SLE (systemic lupus erythematosus) Reportedly with mostly skinaffects Surgical History Surgical History (Updated 06/05/24 @ 03:47 by Brii Foote DO) History of appendectomy Status post cardiac pacemaker procedure Complicated by perforation of the myocardium requiring subsequent open heart surgery performed at [facility] Family History Family History Mother Hypertension Heart attack Social History Social History Smoking packs per day: 0.5 Smoking cigarettes per day: 10.0 Years smoked: 20 Smoking pack-years: 10.00 Smoking status: Former smoker Tobacco type: cigarettes Second hand tobacco smoke exposure: Yes ( smokes in home) Smoking end date: 08/22/07 Additional smoking assessment comments: 2 years since last smoked. Alcohol intake: never Substance use: never Substance use type: does not use Do You Feel Safe in your Home?: Yes Lack of Transportation: No Lack of Food: Never True Current Housing: I Have Housing Concerned About Future Housing: No Difficulty Paying Gas/Electric Bills: No Difficulty Paying for Meds: No Currently Unemployed: No Education: High School Diploma/GED Difficulty w/ Childcare or Family Care: No Spiritual care concerns: No Meds Home Medications and Allergies Home Medications Medication Instructions Recorded Confirmed Type amiodarone 200 mg tablet 200 mg PO BID 11/26/23 06/02/24 History apixaban 5 mg tablet (Eliquis) 5 mg PO BID 11/26/23 06/02/24 History dapagliflozin propanediol 5 mg 5 mg PO DAILY 11/26/23 06/02/24 History tablet (Farxiga) famotidine 20 mg tablet 20 mg PO BID 11/26/23 06/02/24 History flecainide 100 mg tablet 100 mg PO BID 11/26/23 06/02/24 History furosemide 40 mg tablet 40 mg PO BID 11/26/23 06/02/24 History gabapentin 100 mg capsule 200 mg PO TID 11/26/23 06/02/24 History magnesium oxide 400 mg (241.3 mg 400 mg PO BID 11/26/23 06/02/24 History magnesium) tablet metoprolol tartrate 25 mg tablet 25 mg PO BID 11/26/23 06/02/24 History potassium chloride 20 mEq 40 meq PO BID 11/26/23 06/02/24 History tablet,extended release(part/cryst) albuterol sulfate 90 mcg/actuation 2 puff inhalation Q4H PRN 06/02/24 06/02/24 History aerosol inhaler Shortness Of Breath ergocalciferol (vitamin D2) 1,250 50,000 unit PO WEEKLY 06/02/24 06/02/24 History mcg (50,000 unit) capsule fluticasone 250 mcg-salmeterol 50 1 inh inhalation BID 06/02/24 06/02/24 History mcg/dose blistr powdr for inhalation (Advair Diskus) tiotropium bromide 2.5 2 puff inhalation DAILY 06/02/24 06/02/24 History mcg/actuation mist for inhalation (Spiriva Respimat) Allergies Allergy/AdvReac Type Severity Reaction Status Date / Time oxycodone [From Percocet] Allergy Intermediate Hives Verified 06/02/24 11:46 Penicillins Allergy Intermediate Hives Verified 06/08/24 09:49 Vital Signs Vital Signs Temp Pulse Resp BP Pulse Ox O2 Del Method O2 Flow Rate 06/04/24 11:00 60 06/04/24 09:37 63 06/04/24 09:37 63 06/04/24 09:36 63 06/04/24 08:27 60 22 H 06/04/24 08:27 60 22 H 96 High Flow Nasal Cannula 10 06/04/24 06:00 60 06/04/24 05:30 97.9 F 61 23 H 105/49 L 91 06/04/24 04:00 60 06/04/24 04:00 60 23 H 90 High Flow Nasal Cannula 10 06/04/24 02:00 60 06/04/24 00:00 60 23 H 90 Nasal Cannula 10 06/04/24 00:00 60 06/03/24 23:52 97.9 F 60 23 H 104/56 L 90 06/03/24 22:00 60 06/03/24 20:00 61 06/03/24 21:29 60 06/03/24 21:27 60 06/03/24 21:27 60 06/03/24 20:00 60 21 H 91 Nasal Cannula 9 06/03/24 20:29 91 Nasal Cannula 9 06/03/24 19:39 98.0 F 60 21 H 94/46 L 93 06/03/24 18:00 60 06/03/24 16:00 98.2 F 60 15 107/56 L 96 06/03/24 16:28 60 25 H 91 BiPAP 06/03/24 16:00 60 25 H 91 BiPAP 06/03/24 16:00 60 06/03/24 14:40 60 25 H 92 BiPAP Exam Narrative: GENERAL APPEARANCE: large female in no acute distress (on CPAP therapy) HEENT: normocephalic, atraumatic, normal conjunctiva and sclera, nares patient NECK: no lymphadenopathy, thyromegaly, or JVD MOUTH: normal lips, teeth, and gums CARDIOVASCULAR: RRR, normal S1 and S2, no rub RESPIRATORY: coarse breath sounds ABDOMEN: obese but soft, nontender, nondistended, positive bowel sounds present EXTREMITIES: no evidence of cyanosis, clubbing, 2 - 3+ edema NEUROLOGICAL: alert and oriented x 3; CN II - XII intact bilaterally; no focal deficits noted Results Lab Results 06/16/24 05:53 06/16/24 05:53 Lab results: Most recent lab results ABG pH 7.323 (7.350-7.450) L 06/03/24 15:56 ABG pCO2 60.5 mmHg (35.0-45.0) H* 06/03/24 15:56 ABG pO2 88.1 mmHg (80.0-100.0) 06/03/24 15:56 ABG HCO3 30.7 mEq/l (22.0-26.0) H 06/03/24 15:56 ABG O2 Saturation 95.8 % (95.0-100.0) 06/03/24 15:56 Calcium 10.0 mg/dL (8.4-10.2) 06/04/24 05:33 Magnesium 2.1 mg/dL (1.6-2.3) 06/02/24 12:06 Urine Creatinine 225.7 mg/dL 06/04/24 13:07 Urine Creatinine Cancelled 06/04/24 13:07
--- NOTE | 2024-06-04 11:51 | PC.NURSE ---
Notified Dr Rubio of patient O2 at 83% when on 15L Hi flow nasal cannula while trying to eat lunch. Received order for Airvo, notified respiratory.
[2024-06-04 11:58] LABS: Glucose Point of Care 104 mg/dl (65-105)
[2024-06-04] MEDS: SODIUM ZIRCONIUM CYCLOSILICATE 10 GM POWD.PACK PO (12:13)
--- NOTE | 2024-06-04 13:38 | WPDPN ---
Progress Note: A&P Assessment and Plan (1) JOVI (acute kidney injury): Code(s): N17.9 - Acute kidney failure, unspecified Status: Acute Assessment and Plan: Creatinine is 2.10 Suspect likely from infection/difficulty urinating -check BMP daily -monitor/record I&O - (2) UTI (urinary tract infection): Code(s): N39.0 - Urinary tract infection, site not specified Status: Acute Assessment and Plan: As evidenced by UA, urine cultures pending -s/p: Levaquin 750 IV given in the ED -pharmacy consulted, plan is to DC Levaquin, aware of penicillin allergy -start ceftriaxone 1 g IV Q 24 in the a.m. 9:00 a.m. -insert Lai, due to body habitus, patient unable to void -bladder scan q.4 hours p.r.n. (3) Morbid obesity with BMI of 50.0-59.9, adult: Code(s): E66.01 - Morbid (severe) obesity due to excess calories; Z68.43 - Body mass index [BMI] 50.0-59.9, adult Status: Acute Assessment and Plan: BMI > 50 -up with assistance (4) Pulmonary edema: Code(s): J81.1 - Chronic pulmonary edema Status: Acute Assessment and Plan: As evidence by chest x-ray -daily weights -fluid restriction (5) Type 2 diabetes mellitus: Code(s): E11.9 - Type 2 diabetes mellitus without complications Status: Acute Assessment and Plan: -unknown last A1c -bedside glucose management -hypoglycemia protocol -check A1c (6) Afib: Code(s): I48.91 - Unspecified atrial fibrillation Status: Acute Assessment and Plan: -continue telemetry monitoring --continue home medication apixaban (7) Yeast infection of the skin: Code(s): B37.2 - Candidiasis of skin and nail Status: Acute Assessment and Plan: Suspect secondary from medication/diabetes -moderate excoriation genital area bilateral groin -start fluconazole 100 mg p.o. daily started 12:00 p.m. for 5 doses Plan patient is a morbidly obese presented with difficulty urinating and painful to urinate, urine is concerning for UTI and patient is being treated with ceftriaxone and will follow-up on urine and blood culture no growth so far, patient also complains of shortness of breath most likely hypoventilation secondary to morbid obesity ABG showed elevated CO2 patient was placed on CPAP patient remains on CPAP today, patient was being diuresed as there was concerned for pulmonary edema however Scr increased 3.6 from 2.1 upon arrival, will hold lasix and consult obstetrics scrub nurse for further recommendation, and will monitor and adjust her oxygen as needed. Will have PT evaluate the patient. Continue home medications: VTE Prophylaxis: apixaban DIET:heart healthy Anticipated hospital stay: > 2days Code Status: full Subjective Date/time seen: 06/04/24 13:38 Interval history: patient is a morbidly obese presented with difficulty urinating and painful to urinate, urine is concerning for UTI and patient is being treated with ceftriaxone and will follow-up on urine and blood culture no growth so far, patient also complains of shortness of breath most likely hypoventilation secondary to morbid obesity ABG showed elevated CO2 patient was placed on CPAP patient remains on CPAP today, patient was being diuresed as there was concerned for pulmonary edema however Scr increased 3.6 from 2.1 upon arrival, will hold lasix and consult obstetrics scrub nurse for further recommendation, and will monitor and adjust her oxygen as needed. Will have PT evaluate the patient. Review of Systems Review of Systems: All systems reviewed & are unremarkable except as noted in HPI and below Exam Narrative: Patient is comfortable, NAD HEENT: eyes are clear and none icteric LUNGS:CTA HEART: RR S1S2 ABD: BS+, Soft and nontender Lower extremities: no edema SKIN: nonjaundiced Neuro: grossly intact. Objective Data Vital Signs Vital Signs: Vital Signs - 24 hr 06/03/24 14:40 06/03/24 14:00 06/03/24 16:00 Temperature Pulse Rate 60 60 60 Respiratory Rate 25 H Blood Pressure Pulse Oximetry 92 Oxygen Delivery BiPAP Oxygen Flow Rate 06/03/24 16:00 06/03/24 16:28 06/03/24 16:00 Temperature 36.8 C Pulse Rate 60 60 60 Respiratory Rate 25 H 25 H 15 Blood Pressure 107/56 L Pulse Oximetry 91 91 96 Oxygen Delivery BiPAP BiPAP Oxygen Flow Rate 06/03/24 18:00 06/03/24 19:39 06/03/24 20:29 Temperature 36.7 C Pulse Rate 60 60 Respiratory Rate 21 H Blood Pressure 94/46 L Pulse Oximetry 93 91 Oxygen Delivery Nasal Cannula Oxygen Flow Rate 9 06/03/24 20:00 06/03/24 21:27 06/03/24 21:27 Temperature Pulse Rate 60 60 60 Respiratory Rate 21 H Blood Pressure Pulse Oximetry 91 Oxygen Delivery Nasal Cannula Oxygen Flow Rate 9 06/03/24 21:29 06/03/24 20:00 06/03/24 22:00 Temperature Pulse Rate 60 61 60 Respiratory Rate Blood Pressure Pulse Oximetry Oxygen Delivery Oxygen Flow Rate 06/03/24 23:52 06/04/24 00:00 06/04/24 00:00 Temperature 36.6 C Pulse Rate 60 60 60 Respiratory Rate 23 H 23 H Blood Pressure 104/56 L Pulse Oximetry 90 90 Oxygen Delivery Nasal Cannula Oxygen Flow Rate 10 06/04/24 02:00 06/04/24 04:00 06/04/24 04:00 Temperature Pulse Rate 60 60 60 Respiratory Rate 23 H Blood Pressure Pulse Oximetry 90 Oxygen Delivery High Flow Nasal Cannula Oxygen Flow Rate 10 06/04/24 05:30 06/04/24 06:00 06/04/24 08:27 Temperature 36.6 C Pulse Rate 61 60 60 Respiratory Rate 23 H 22 H Blood Pressure 105/49 L Pulse Oximetry 91 96 Oxygen Delivery High Flow Nasal Cannula Oxygen Flow Rate 10 06/04/24 08:27 06/04/24 09:36 06/04/24 09:37 Temperature Pulse Rate 60 63 63 Respiratory Rate 22 H Blood Pressure Pulse Oximetry Oxygen Delivery Oxygen Flow Rate 06/04/24 09:37 06/04/24 08:00 06/04/24 08:00 Temperature Pulse Rate 63 65 Respiratory Rate 20 Blood Pressure 109/53 L Pulse Oximetry 95 96 Oxygen Delivery High Flow Nasal Cannula Oxygen Flow Rate 10 06/04/24 09:00 06/04/24 08:00 06/04/24 10:00 Temperature Pulse Rate 61 60 Respiratory Rate Blood Pressure Pulse Oximetry Oxygen Delivery BiPAP Oxygen Flow Rate 06/04/24 12:00 Temperature 36.6 C Pulse Rate 63 Respiratory Rate 22 H Blood Pressure 91/42 L Pulse Oximetry 98 Oxygen Delivery Oxygen Flow Rate Intake/Output Intake/Output: Intake & Output 06/01/24 06/02/24 06/03/24 06/04/24 23:59 23:59 23:59 23:59 Intake Total 1270 1490 550 Output Total 600 200 Balance 1270 890 350 Meds/Results Medications: Active Medications Generic Name Dose Route Start Last Admin Trade Name Freq PRN Reason Stop Dose Admin Albuterol 2 puff 06/02/24 19:16 Albuterol Sulfate (*Sp) Aerosol 1 Puff INHALATION Q4HRT PRN Shortness Of Breath Amiodarone HCl 200 mg 06/02/24 21:00 06/04/24 09:36 Amiodarone Hcl 200 Mg Tablet PO 200 mg Q12HR JOHN Administration Apixaban 5 mg 06/02/24 21:00 06/04/24 09:36 Apixaban 5 Mg Tablet PO 5 mg Q12HR JOHN Administration Famotidine 20 mg 06/02/24 21:00 06/04/24 09:37 Famotidine 20 Mg Tablet PO 20 mg Q12HR JOHN Administration Flecainide Acetate 100 mg 06/02/24 21:00 06/04/24 09:37 Flecainide Acetate 100 Mg Tablet PO 100 mg Q12HR JOHN Administration Fluconazole 100 mg 06/03/24 12:00 06/03/24 11:49 Fluconazole 100 Mg Tablet PO 06/07/24 12:01 100 mg DAILY@1200 JOHN Administration Gabapentin 200 mg 06/02/24 22:00 06/04/24 05:26 Gabapentin 100 Mg Capsule PO 200 mg Q8HR JOHN Administration Ceftriaxone Sodium 1 gm in 50 mls @ 100 mls/hr 06/03/24 09:00 06/04/24 09:36 Rocephin 1 Gm/Ns 50 Ml IVPB 100 mls/hr Q24H JOHN Administration Magnesium Oxide 400 mg 06/03/24 09:00 06/04/24 09:37 Magnesium Oxide 400 Mg Tablet PO 400 mg BID JOHN Administration Metoprolol Tartrate 25 mg 06/02/24 21:00 06/04/24 09:37 Metoprolol Tartrate 25 Mg Tablet PO 25 mg Q12HR JOHN Administration Fluticasone/Salmeterol 2 puff 06/03/24 08:00 06/04/24 08:18 Fluticasone/Salmeterol 115-21 Mcg Inhaler 1 Puff INHALATION 2 puff Q12HRT JOHN Administration Umeclidinium [place] 1 puff 06/03/24 08:00 06/04/24 08:19 Umeclidinium [place] 62.5 Mcg Ellipta INHALATION 1 puff DAILYRT JOHN Administration Radiology Results: ITS Impressions Chest X-Ray 06/02/24 11:37 IMPRESSION: 1. Mild pulmonary edema. 2. Cardiomegaly. Labs Labs: Laboratory Results - last 24 hr 06/03/24 06/03/24 06/03/24 14:03 15:56 15:57 WBC RBC Hgb Hct MCV MCH MCHC RDW Plt Count MPV Immature Gran % (Auto) Neut % (Auto) Lymph % (Auto) [place] % (Auto) Eos % (Auto) Baso % (Auto) Lymph # (Auto) [place] # (Auto) Eos # (Auto) Baso # (Auto) Abs Immat Gran (auto) Absolute Neuts (auto) Absolute Nucleated RBC Nucleated RBC % Platelet Estimate Hypochromasia Schistocytes Puncture Site Left brachial Left brachial ABG pH 7.334 L 7.323 L ABG pCO2 53.9 H 60.5 H* ABG pO2 57.3 L 88.1 ABG PO2/FiO2 Ratio 1.02 1.60 ABG HCO3 28.0 H 30.7 H ABG O2 Saturation 87.5 L* 95.8 ABG O2 Content 14.7 L 15.9 L ABG Base Excess 1.3 3.3 A-a Gradient 282.2 236.7 Oxyhemoglobin 88.5 L 96.1 Total Hemoglobin 11.8 L 11.7 L O2 Delivery Device High flow nasal francisco Non-invasive vent O2 Liters/Min 9.0 Not Reportable Vent Rate 12 FiO2 56 55 Expiratory Pressure 8 Inspiratory Pressure 16 Sodium Potassium Chloride Carbon Dioxide Anion Gap BUN Creatinine Estim Creat Clear Calc Estimated GFR Glucose POC Capillary Glucose 102 Calcium Total Bilirubin AST ALT Alkaline Phosphatase Total Protein Albumin U Random Total Protein Urine Creatinine Protein/Creat Ratio 2 06/03/24 06/04/24 06/04/24 19:43 05:33 07:18 WBC 9.1 RBC 4.05 L Hgb 11.0 L Hct 37.2 MCV 91.9 MCH 27.2 MCHC 29.6 L RDW 17.6 H Plt Count 322 MPV 10.1 Immature Gran % (Auto) 0.7 H Neut % (Auto) 70.3 Lymph % (Auto) 14.3 L [place] % (Auto) 13.3 H Eos % (Auto) 0.8 Baso % (Auto) 0.6 Lymph # (Auto) 1.30 [place] # (Auto) 1.2 H Eos # (Auto) 0.1 Baso # (Auto) 0.1 Abs Immat Gran (auto) 0.06 H Absolute Neuts (auto) 6.4 Absolute Nucleated RBC 0.000 Nucleated RBC % 0.0 Platelet Estimate Adequate Hypochromasia 1+ Schistocytes None seen Puncture Site ABG pH ABG pCO2 ABG pO2 ABG PO2/FiO2 Ratio ABG HCO3 ABG O2 Saturation ABG O2 Content ABG Base Excess A-a Gradient Oxyhemoglobin Total Hemoglobin O2 Delivery Device O2 Liters/Min Vent Rate FiO2 Expiratory Pressure Inspiratory Pressure Sodium 133 L Potassium 5.2 H Chloride 98 Carbon Dioxide 29 Anion Gap 6 BUN 44 H Creatinine 3.60 H Estim Creat Clear Calc 28 Estimated GFR 13 L Glucose 106 POC Capillary Glucose 88 103 Calcium 10.0 Total Bilirubin 1.3 AST 132 H ALT 53 H Alkaline Phosphatase 281 H Total Protein 7.0 Albumin 3.1 L U Random Total Protein Urine Creatinine Protein/Creat Ratio 2 06/04/24 06/04/24 11:27 13:07 WBC RBC Hgb Hct MCV MCH MCHC RDW Plt Count MPV Immature Gran % (Auto) Neut % (Auto) Lymph % (Auto) [place] % (Auto) Eos % (Auto) Baso % (Auto) Lymph # (Auto) [place] # (Auto) Eos # (Auto) Baso # (Auto) Abs Immat Gran (auto) Absolute Neuts (auto) Absolute Nucleated RBC Nucleated RBC % Platelet Estimate Hypochromasia Schistocytes Puncture Site ABG pH ABG pCO2 ABG pO2 ABG PO2/FiO2 Ratio ABG HCO3 ABG O2 Saturation ABG O2 Content ABG Base Excess A-a Gradient Oxyhemoglobin Total Hemoglobin O2 Delivery Device O2 Liters/Min Vent Rate FiO2 Expiratory Pressure Inspiratory Pressure Sodium Potassium Chloride Carbon Dioxide Anion Gap BUN Creatinine Estim Creat Clear Calc Estimated GFR Glucose POC Capillary Glucose 104 Calcium Total Bilirubin AST ALT Alkaline Phosphatase Total Protein Albumin U Random Total Protein Cancelled Urine Creatinine Cancelled Protein/Creat Ratio 2 Cancelled Quality VTE Prophylaxis VTE prophylaxis: pharmacologic ordered
[2024-06-04 13:44] LABS: Creatinine Urine 225.7 mg/dL; Total Protein Urine Random 137 mg/dL; Urea Random Urine 156 MG/DL
[2024-06-04 13:45] LABS: Sodium Urine Random 8 meq/L
[2024-06-04 13:56] LABS: Eosinophil Urine None Seen % (None Seen); Urine Eos QC 2nd Tech Confirmed
[2024-06-04] MEDS: FLUCONAZOLE 100 MG TABLET PO (15:15)
[2024-06-04 17:26] LABS: Glucose Point of Care 142 mg/dl (65-105)
--- NOTE | 2024-06-04 17:36 | P.PNCROSS_ITS ---
Event Note Event Note Event Note: Received a call for hypotension and dizziness. Patient on 70% O2 250ml bolus. RN to call construction superintendent physician, may need ICU level care, pressors given O2 requirements
[2024-06-04] MEDS: SODIUM CHLORIDE 0.9% IV 500 ML 250 ML IV CONT (17:56)
[2024-06-04] MEDS: ALBUMIN HUMAN 25% 25 GM/100 ML 100 ML IVPB ×2 (17:56→23:20)
[2024-06-04 18:35] LABS: Alveolar/Arterial O2 Gradient 384.8 mmHg; Fractional Inspired Oxygen 72 %; Oxygen Content ABG 15.4 %vol (16.0-22.0); Oxygen Saturation ABG 91.5 % (95.0-100.0); Oxyhemoglobin 92.5 % THb (90.0-100.0); PO2 ABG 66.5 mmHg (80.0-100.0); PO2 FiO2 Ratio Arterial Blood 0.92 %; Total Hemoglobin 11.8 g/dL (12.0-18.0)
[2024-06-04 18:38] LABS: Device HIGH FLOW THERAPY; Modified Allen's Test Pass; Site Drawn LEFT RADIAL
[2024-06-05] VITALS (89 sets, daily range): BP systolic 93–123; BP diastolic 36–71; PULSE 60–115; RESP 16–30; TEMP 36.3–37.7; O2SAT 87–100
--- NOTE | 2024-06-05 | ECHO_ITS ---
Patient Info Name: Ariana Spring Age: 54 years : 1970 Gender: Female Ht: 66 in Wt: 396 lbs BSA: 3.01 m2 HR: 62 bpm BP: 118 / 67 mmHg Heart Rhythm: Sinus Rhythm Technical Quality: Fair Exam Date: 06/05/2024 9:44 AM Exam Location: Echo Lab Patient Status: Inpatient Admit Date: 06/03/2024 Staff Ordering Physician: Brii Foote DO Clinic Md Associate: Natalie Brewster RDCS Attending Provider: Waqar Reina MD Referring Physician: Qamar BARRAZA; Exam Type: CA echo dop color flow w con Study Info Indications J81.0 - Acute pulmonary edema - acute renal failure Complete two-dimensional, color flow and Doppler transthoracic echocardiogram is performed with contrast to opacify the left ventricle and to improve the deliniation of the left ventricle endocardial borders. Contrast/Agitated Saline Contrast/Ag. Saline: Definity Amount: 3.00 ml Existing IV Access: Yes IV Access Condition: patent with no signs of infiltration Summary 1. Left ventricular chamber dimension is normal. 2. Left ventricular systolic function is normal, estimated at 65-70%. 3. The left ventricular diastolic function is grade I diastolic dysfunction. 4. Right ventricular chamber dimension is moderately enlarged. 5. Right ventricular systolic function is normal. 6. Left atrial chamber dimension is moderately enlarged. 7. Right atrial chamber dimension is moderately enlarged. 8. There is mild to moderate tricuspid valve regurgitation. Left Ventricle Left ventricular chamber dimension is normal. Left ventricular systolic function is normal, estimated at 65-70%. There is no increased left ventricular wall thickness. The left ventricular diastolic function is grade I diastolic dysfunction. Right Ventricle Right ventricular chamber dimension is moderately enlarged. Right ventricular systolic function is normal. Left Atria Left atrial chamber dimension is moderately enlarged. Right Atria Right atrial chamber dimension is moderately enlarged. Atrial Septum Intact interatrial septum visualized by color flow imaging. Aortic Valve The aortic valve is not well visualized. There is no aortic valve stenosis. There is no aortic valve regurgitation. Pulmonic Valve The pulmonic valve is not well visualized. There is trace pulmonic regurgitation. Mitral Valve There is trace mitral valve regurgitation. Tricuspid Valve There is mild to moderate tricuspid valve regurgitation. Pericardium/Pleural There is no pericardial effusion. Inferior Vena Cava Inferior vena cava is not well visualized. Aorta The aortic root size at the sinus of Valsalva is normal. Left Ventricular Outflow Tract Name Value Normal LVOT 2D LVOT Diameter 1.91 cm LVOT Doppler LVOT Peak Gradient 8 mmHg LVOT Mean Gradient 4 mmHg LVOT VTI 27.84 cm LVOT VTI/AV VTI Ratio 0.76 LVOT Stroke Volume 79.48 ml LVOT CO 5.02 l/min LVOT CI 1.66 L/min/m2 Pulmonic Valve Name Value Normal PV Doppler PV Peak Gradient 9 mmHg Mitral Valve Name Value Normal MV Doppler MV Decel Coffee 317.94 cm/s2 MV PHT 0 s MV Area (PHT) 2.42 cm2 4.00-5.00 MV Diastolic Function MV E Peak Velocity 99.56 cm/s MV A Peak Velocity 52.66 cm/s MV E/A 1.89 MV Decel Time 0 s Tricuspid Valve Name Value Normal TV Regurgitation Doppler TR Peak Velocity 316.79 cm/s TR Peak Gradient 40 mmHg Aorta Name Value Normal Ascending Aorta Ao Root Diameter (MM) 2.09 cm Ao Root Diam Index (MM) 0.69 cm/m2 Aortic Valve Name Value Normal AV Doppler AV Peak Velocity 193.09 cm/s AV Peak Gradient 15 mmHg AV Mean Gradient 8 mmHg AV VTI 36.72 cm AV Area (Cont Eq VTI) 2.17 cm2 >=3.00 AV Area (Cont Eq Young) 2.11 cm2 AV Regurgitation 2D LVOT Area 2.85 cm2 Ventricles Name Value Normal LV Dimensions 2D/MM IVS Diastolic Thickness (2D) 0.82 cm 0.60-1.00 IVS Diastole Thickness (MM) 0.86 cm 0.60-0.90 LVID Diastole (2D) 5.47 cm 3.80-5.20 LVID Diastole (MM) 5.37 cm 3.80-5.20 LVIW Diastolic Thickness (2D) 0.86 cm 0.60-0.90 LVIW Diastolic Thickness (MM) 0.92 cm 0.60-0.90 LVID Systole (2D) 2.60 cm 2.20-3.50 LVOT Diameter 1.91 cm LV Mass (2D Cubed) 168.21 g 67.00-162.00 LV Mass Index (2D Cubed) 0.01 g/cm2 0.00-0.01 Relative Wall Thickness (2D) 0.31 LV Mass (MM Cubed) 176.17 g 67.00-162.00 LV Mass Index (MM Cubed) 0.01 g/cm2 0.00-0.01 Relative Wall Thickness (MM) 0.34 LV Fractional Shortening/Ejection Fraction 2D/MM LV Fractional Shortening (2D) 52 % 27-45 LV EF (2D Teicholz) 83 % 54-74 LV Diastolic Volume (4C MOD) 110.09 ml LV EF (4C MOD) 74 % LV Diastolic Length (4C) 7.51 cm LV Systolic Length (4C) 6.78 cm LV Stroke Volume (4C MOD) 81.00 ml Atria Name Value Normal LA Dimensions LA Dimension (MM) 4.93 cm 2.70-3.80 LA Volume (4C A-L) 90.10 ml LA Volume (BP A-L) 70.37 ml RA Dimensions RA Area (4C) 20.91 cm2 <=18.00 Report Signatures
[2024-06-05 00:07] LABS: Glucose Point of Care 131 mg/dl (65-105)
--- NOTE | 2024-06-05 00:12 | PC.NURSE ---
Call placed to Dr. Foote regarding 85/43 blood pressure. 60ml output this shift. Awaiting return call.
--- NOTE | 2024-06-05 00:29 | PC.NURSE ---
New order received to transfer patient to ICU. Charge nurse aware and notifying assistant warehouse manager.
--- NOTE | 2024-06-05 00:35 | PC.NURSE ---
Call placed to contact Charbel Spring at [phone] to notify of transfer. Message left.
--- NOTE | 2024-06-05 00:46 | PM.EVENT ---
Event Note Event Note Event Note: 06/05/2024 at 00:15 54-year-old female with past medical history of chronic hypoxic respiratory failure due to restrictive lung disease, morbid obesity, obstructive sleep apnea, atrial fibrillation on amiodarone and flecainide, status post pacemaker with pacemaker placement complicated by perforation of the myocardium requiring open-heart surgery ([facility]), SLE, hyperparathyroidism and diabetes among other comorbidities who was admitted the hospital on June 02 due to inability to urinate and a 21 lb weight gain in 3 days. Patient was initially treated during hospital stay with Levaquin for possible UTI but urine cultures were negative. Levaquin was discontinued. Patient was continued on Rocephin but specified infectious source not listed. Patient was getting Lasix but this had been discontinued due to worsening renal function. Despite getting Lasix the patient had progressive worsening respiratory status with rapidly escalating oxygen requirements over the last 24 hours. The patient also had perseverative drop in
--- NOTE | 2024-06-05 01:00 | WPDPROCEDUR ---
Procedures Central Line Placement Right IJ: Central Line Date: 06/05/24 Central Line Time: 01:45 Discussed w/ the patient/family/POA,the placement of a central venous catheter, including its clinical necessity/indication & associated potential risks, benifits and alternatives.: Yes The patient/family/POA understand(s) and acknowledge(s) the need to proceed with central venous catheter insertion as an important element of the patient's clinical management.: Yes Consent: I have discussed with the patient and/or surrogate, the non-emergent placement of a central venous catheter, including its clinical necessity/indication and associated potential risks and complications. The patient and/or surrogate understand(s) and acknowledge(s) the need to proceed with central venous catheter insertion as an important element of the patient's clinical management. Time Out Performed: Yes Patient Position: other (Vascular) Patient placed on monitor/pulse ox: Yes Provider Prep: mask, sterile gown, sterile gloves, Max. sterile barrier precautions, cap and hand hygiene with conventional soap/water or alcohol based hand rub Central line prep: 2% Chlorhexidine scrub and sterile full body sheet applied Local anesthesia used: lidocaine 1% Amount of anesthesia used (ml): 3 Sterile US Technique with sterile gel/sterile probe covers: Yes Central line lumen inserted: triple Croatian: 7 Length (cm): 16 Depth of Insertion (cm): 15 Post Procedure: sutured in place, good blood return, all ports aspirated, flushed, capped, transparent dressing, hemostatic product, antimicrobial product, securement product and aseptic technique maintained throughout procedure Post procedure x-ray: tip of catheter in good position and no pneumothorax seen Patient tolerated procedure: well Additional comments: Approximately 5 mL of blood loss. Chest x-ray personally reviewed and interpreted patient has diffuse bilateral pulmonary opacities most likely pulmonary edema. Central line appropriately positioned a time of my review. I have asked for radiology overview from [facility] [email or web address] which is still pending.
--- NOTE | 2024-06-05 01:22 | PC.NURSE ---
Report taken from Rosita Chowdary RN. Patient to ICU 6. Dr. Foote at bedside.
--- NOTE | 2024-06-05 01:22 | PC.NURSE ---
Report given to Froy BOOTH. Patient transferred to ICU room 6 via bed with all belongings
[2024-06-05] MEDS: NOREPINEPHRINE 8 MG/D5W 250 ML 8 MG/250 ML BAG 9.38 MG IV CONT (01:39)
[2024-06-05] MEDS: ALBUMIN HUMAN 25% 25 GM/100 ML 100 ML IVPB (01:40)
[2024-06-05] MEDS: LORazepam INJ (*CRX) 2 MG/ML VIAL 0.5 MG IV PUSH (01:56)
[2024-06-05 02:26] LABS: Influenza A QL RT-PCR Negative (Negative); Influenza B QL RT-PCR Negative (Negative); RSV RNA, RT-PCR Negative (Negative); SARS-CoV-2 RNA PCR Negative (Negative)
[2024-06-05 02:37] LABS: Basophils Absolute Auto 0.1 K/mm3 (0.0-0.1); Basophils Percent Auto 0.5 % (0.2-1.2); Eosinophils Absolute Auto 0.1 K/mm3 (0-0.3); Eosinophils Percent Auto 0.6 % (0-4.4); Hemoglobin 11.1 g/dL (12.0-15.0); Immature Granulocyte Absolute 0.09 K/mm3 (0.00-0.031); Immature Granulocyte Percent A 0.7 % (0-0.5); Lymphocytes Absolute Auto 1.38 K/mm3 (0.9-3.2); Mean Corpuscular HGB Conc 30.8 g/dl (32-36); Mean Corpuscular Hemoglobin 27.3 pg (26-34); Mean Corpuscular Volume 88.5 fl (80-100); Monocytes Absolute Auto 1.7 K/mm3 (0.1-0.6); Monocytes Percent Auto 13.5 % (2.6-8.5); Neutrophils Absolute Auto 9.3 K/mm3 (1.3-6.7); Neutrophils Percent Auto 73.7 % (45.5-73.1); Platelet Count Result 367 k/mm3 (150-375); Red Blood Count 4.07 M/mm3 (4.2-5.4); Red Cell Distribution Width 17.6 % (11.5-14.5); White Blood Count 12.6 K/mm3 (4.5-10.0)
[2024-06-05 02:48] LABS: INR 1.7; Prothrombin Time 20.3 Seconds (11.1-14.7)
[2024-06-05 02:49] LABS: Alanine Aminotransferase 48 U/L (6-35); Albumin Level 3.7 g/dL (3.5-5.1); Alkaline Phosphatase 278 U/L (38-126); Anion Gap 11 mmol/L (4-12); Aspartate Amino Transferase 113 U/L (14-36); Blood Urea Nitrogen 49 mg/dL (7-17); Carbon Dioxide 25 mmol/L (22-30); Chloride 95 mmol/L (98-107); Estimated CRCL calculation 23 ml/min; Estimated Glomerular Filt Rate 10; Glucose 124 mg/dL (65-110); Lactic Acid Reflex 1.1 mmol/L (0.7-2.0); Partial Thromboplastin Time 41.1 Seconds (22.3-36.8); Potassium 5.5 mmol/L (3.4-5.0); Sodium 131 mmol/L (137-145)
[2024-06-05 03:05] LABS: Troponin I < 0.012 ng/mL (0.000-0.034)
[2024-06-05 03:23] LABS: Uric Acid 8.8 mg/dL (2.5-7.5)
[2024-06-05 03:34] LABS: NT Pro B Type Natriuretic Pept 3570 pg/mL (19.9-100)
[2024-06-05 03:35] LABS: Creatine Kinase 27 U/L (30-135)
[2024-06-05 03:42] LABS: Procalcitonin 0.4 ng/mL
[2024-06-05] MEDS: VANCOMYCIN 2,000 MG/NS 500 ML 2,000 MG/500 ML BAG 250 MG IVPB (04:36)
[2024-06-05] MEDS: CEFEPIME 2 GM/NS 50 ML 2 GM/50 ML BAG IVPB ×2 (04:36→18:08)
[2024-06-05] MEDS: CENTRAL LINE FLUSH 10 ML IV PUSH ×3 (04:37→21:54)
--- NOTE | 2024-06-05 05:20 | PC.NURSE ---
Hold [address] Foote
[2024-06-05] MEDS: SODIUM ZIRCONIUM CYCLOSILICATE 10 GM POWD.PACK PO ×2 (05:34→09:49)
[2024-06-05] MEDS: SODIUM BICARBONATE 8.4% 50 MEQ/50 ML SYRINGE IV PUSH (05:34)
[2024-06-05] MEDS: ALBUTEROL SULFATE NEB 2.5 MG/3 ML INH 15 MG INHALATION (05:35)
[2024-06-05 05:42] LABS: Alveolar/Arterial O2 Gradient 576.5 mmHg; Base Excess ABG 2.7 mEq/l (+/-2.0); Fractional Inspired Oxygen 100 %; Oxygen Content ABG 15.4 %vol (16.0-22.0); Oxygen Saturation ABG 90.8 % (95.0-100.0); Oxyhemoglobin 91.6 % THb (90.0-100.0); PO2 ABG 68.6 mmHg (80.0-100.0); PO2 FiO2 Ratio Arterial Blood 0.69 %; Total Hemoglobin 11.9 g/dL (12.0-18.0)
[2024-06-05 05:45] LABS: pH ABG 7.278 (7.350-7.450)
[2024-06-05 05:46] LABS: PCO2 ABG 67.9 mmHg (35.0-45.0)
[2024-06-05 05:48] LABS: Modified Allen's Test Pass; Site Drawn LEFT RADIAL
[2024-06-05 05:49] LABS: Device NON-INVASIVE VENT; Non-Invasive Vent Rate 24 /MIN
[2024-06-05 05:50] LABS: Non-Invasive Expiratory Pressure 8 CMH2O; Non-Invasive Inspiratory Pressure 16 CMH2O
[2024-06-05 05:55] LABS: Hepatitis B Surface Antigen Negative (Negative)
[2024-06-05 06:13] LABS: Hepatitis B Surface Anti Res Negative
[2024-06-05 07:01] LABS: Free T4 Free Thyroxine Reflex 1.28 ng/dL (0.78-2.19)
--- NOTE | 2024-06-05 07:38 | PCPTNOTE ---
Physical therapy orders discharged until pt is medically stable/safe to participate in skilled therapy and is off of bedrest (bedrest orders present as of 06/05/24).
[2024-06-05 07:39] LABS: MRSA (PCR) NOT DETECTED (NOT DETECTE)
[2024-06-05 07:53] LABS: Glucose Point of Care 141 mg/dl (65-105)
[2024-06-05 07:56] LABS: Total Triiodothyronine (T3) 0.76 NG/ML (0.97-1.69)
[2024-06-05] MEDS: FAMOTIDINE 20 MG/2 ML VIAL IV PUSH (08:03)
--- NOTE | 2024-06-05 08:27 | PC.NURSE ---
Dr. Jj at bedside on telephone with Jose Raul RAMIREZ, updating family on plan of care. Patient also updated on plan of care. Spouse to be updated soon.
[2024-06-05 08:45] LABS: Anion Gap 9 mmol/L (4-12); Blood Urea Nitrogen 53 mg/dL (7-17); CRP 5.4 mg/dL (<1.0); Calcium 9.9 mg/dL (8.4-10.2); Carbon Dioxide 27 mmol/L (22-30); Chloride 96 mmol/L (98-107); Estimated CRCL calculation 21 ml/min; Estimated Glomerular Filt Rate 10; Glucose 144 mg/dL (65-110); Potassium 5.2 mmol/L (3.4-5.0); Sodium 132 mmol/L (137-145)
[2024-06-05 08:47] LABS: Complement C3 152 mg/dL (88-165)
[2024-06-05] MEDS: ETOMIDATE 20 MG/10 ML AMPUL 30 MG IV PUSH (08:59)
[2024-06-05] MEDS: ROCURONIUM BROMIDE 50 MG/5 ML VIAL IV PUSH ×2 (09:00→09:15)
[2024-06-05 09:04] LABS: Erythrocyte Sedimentation Rate 24 mm/hr (0-20)
--- NOTE | 2024-06-05 09:08 | P.PNNP_ITS ---
Progress Note: A&P Assessment and Plan (1) JOVI (acute kidney injury): Code(s): N17.9 - Acute kidney failure, unspecified Status: Acute Assessment and Plan: * normal creatinine ~ 1 month ago * admitted with a creatinine of 2.1mg/dl with ongoing worsening noted * etiology not clear but several possibilities: * hemodynamic instability/shock * early sepsis * infection (UTI +/- pneumonia) -- although culture negative to date * hypoxia * SLE flare (?) * other? * evaluation to date noted: * renal ultrasound negative for obstruction * urine eosinophils negative * urine electrolytes pre-renal (in spite of evidence of volume overload) * CPK low * moderate proteinuria (~ 600mg) * UA with blood and protein (and negative urine culture) * complements normal (arguing against lupus flare) * remains at risk for ENTERPRISE SALES PERSON/dialysis more so due to volume overload * trial of diuretics today * follow repeat labs and UOP (2) Acute respiratory failure: Code(s): J96.00 - Acute respiratory failure, unspecified whether with hypoxia or hypercapnia Status: Acute Assessment and Plan: * worsening respiratory status in the last 24 hours * failing BiPAP therapy and about to be intubated for impending respiratory failure (given hypoxia + hypercapnea) * suspect secondary to pulmonary edema, pneumonia, and possible early ARDS * ventilator support * brochodilators and steroids * follow respiratory status (3) Septic shock: Code(s): A41.9 - Sepsis, unspecified organism; R65.21 - Severe sepsis with septic shock Status: Acute Assessment and Plan: * possible related to pneumonia versus UTI * initiated on vasopressor therapy * follow culture data * on antibiotics * stress dose seroids * follow trend of hemodynamics (4) Pulmonary edema: Code(s): J81.1 - Chronic pulmonary edema Status: Acute Assessment and Plan: * contributing to #2 * secondary to JOVI/ARF but ARDS possibly playing a role * trial of IV diuretics today * Pulmonary edema likely related to acute kidney injury, ARDS, (5) SLE (systemic lupus erythematosus): Code(s): M32.9 - Systemic lupus erythematosus, unspecified Status: Acute Assessment and Plan: * ? SLE flare * getting stress dose steroids (6) UTI (urinary tract infection): Code(s): N39.0 - Urinary tract infection, site not specified Status: Ruled-out Assessment and Plan: * admission UA highly suggestive * follow-up on culture data - urine culture negative * on antibiotics (7) Type 2 diabetes mellitus: Code(s): E11.9 - Type 2 diabetes mellitus without complications Status: Acute Assessment and Plan: * follow accu-cheks * glycemic control per pewter finisher/hospitalist Case discussed with Dr. Jj Will continue to follow. Subjective Date/time seen: 06/05/24 09:08 Interval history: Follow-up for acute kidney injury/acute renal failure. Events overnight and this AM noted -- worsening respiratory status and hypotension despite ongoing therapy with subsequent transfer to ICU with central line placement as well as initiation of vasopressor therapy along with BIPAP; no real significant improvement in respirator status so currently in the process of being intubated at the time of my visit; worsening renal function/creatinine noted by AM labs as well Exam Narrative: General: large female on BiPAP (being prepared for intubation) Heart: normal S1 and S2; no rub Lungs: coarse with some scattered crackles Abdomen: obese but soft, nontender, nondistended, positive bowel sounds Extremities: no cyanosis or clubbing; 2 - 3+edema Skin: warm and dry Objective Data Vital Signs Vital Signs: Vital Signs Temp Pulse Resp BP Pulse Ox O2 Del Method O2 Flow Rate 06/05/24 08:00 70 26 H 96 BiPAP 06/05/24 08:00 99.9 F H 70 25 H 104/61 96 06/05/24 07:33 71 16 97 BiPAP 06/05/24 07:30 70 110/66 06/05/24 07:15 70 102/43 L 06/05/24 07:00 72 98/46 L 06/05/24 05:00 63 27 H 114/51 L 92 06/05/24 06:00 62 107/53 L 06/05/24 06:00 62 27 H 107/53 L 96 06/05/24 06:00 69 06/05/24 06:24 69 28 H 06/05/24 05:45 98 06/05/24 05:35 62 28 H 06/05/24 04:00 66 06/05/24 04:00 66 118/67 06/05/24 02:00 68 103/64 06/05/24 04:00 98.3 F 66 27 H 118/67 93 06/05/24 03:45 66 25 H 93 BiPAP 06/05/24 03:30 66 28 H 121/57 L 94 06/05/24 03:00 66 27 H 110/67 93 06/05/24 02:30 68 25 H 103/64 87 L 06/05/24 02:00 68 06/05/24 02:00 68 28 H 113/57 L 89 L 06/05/24 02:48 30 H 91 BiPAP 06/05/24 01:15 67 104/70 06/05/24 01:39 65 100/58 L 06/04/24 23:53 98.5 F 61 23 H 85/43 L 91 06/05/24 00:00 62 06/04/24 23:51 62 23 H 92 High Flow Therapy with Na 50 06/04/24 22:00 62 06/04/24 20:00 60 06/04/24 20:00 61 23 H 92 High Flow Therapy with Na 50 06/04/24 20:58 92 High Flow Therapy with Na 50 06/04/24 20:37 61 06/04/24 20:37 61 06/04/24 19:30 98.1 F 60 23 H 94/43 L 91 06/04/24 16:00 62 06/04/24 18:28 99/45 L 06/04/24 18:00 62 06/04/24 18:11 96/78 L 06/04/24 16:00 99 F 59 L 22 H 99/55 L 90 06/04/24 12:40 68 24 H 92 High Flow Therapy with Na 50 06/04/24 14:10 61 22 H 94 High Flow Therapy with Na 50 06/04/24 14:00 60 06/04/24 12:00 95 High Flow Therapy with Na 50 06/04/24 12:00 60 06/04/24 12:00 97.8 F 63 22 H 91/42 L 98 06/04/24 10:00 60 06/04/24 09:37 63 06/04/24 09:37 63 06/04/24 09:36 63 Intake/Output Intake/Output: Intake & Output 06/02/24 06/03/24 06/04/24 06/05/24 23:59 23:59 23:59 23:59 Intake Total 1270 1490 1630 707.8 Output Total 600 400 30 Balance 4105 689 3567 677.8 Meds/Results Medications: Active Medications Generic Name Dose Route Start Last Admin Trade Name Freq PRN Reason Stop Dose Admin Amiodarone HCl 200 mg 06/02/24 21:00 06/04/24 20:37 Amiodarone Hcl 200 Mg Tablet PO 200 mg Q12HR JOHN Administration Apixaban 5 mg 06/02/24 21:00 06/04/24 20:37 Apixaban 5 Mg Tablet PO 5 mg Q12HR JOHN Administration Etomidate 30 mg 06/05/24 09:07 Etomidate 20 Mg/10 Ml Ampul IV PUSH 06/05/24 09:08 ONCE ONE Flecainide Acetate 100 mg 06/02/24 21:00 06/04/24 20:37 Flecainide Acetate 100 Mg Tablet PO 100 mg Q12HR JOHN Administration Gabapentin 200 mg 06/02/24 22:00 06/04/24 21:07 Gabapentin 100 Mg Capsule PO 200 mg Q8HR JOHN Administration Hydrocortisone Sodium Succinate 100 mg 06/05/24 14:00 Hydrocortisone Sodium Succinate 100 Mg/2 Ml Vial IV PUSH Q8HR [facility] Norepinephrine Bitartrate 8 mg in 250 mls @ 16.875 mls/hr 06/05/24 00:35 06/05/24 07:30 Levophed 8 Mg/D5w 250 Ml IV CONT 9 mcg/min .[id number] JOHN 16.88 mls/hr Titration Protocol 9 MCG/MIN Cefepime HCl 2 gm in 50 mls @ 100 mls/hr 06/05/24 04:00 06/05/24 05:06 Maxipime 2 Gm/Ns 50 Ml IVPB Infused Q24H JOHN Infusion Fluconazole/Dextrose 100 mg in 50 mls @ 50 mls/hr 06/05/24 12:00 Diflucan 100 Mg/Nacl 50 Ml IVPB 06/08/24 11:59 DAILY JOHN Fentanyl Citrate 2,500 mcg in 250 mls @ 2.5 mls/hr 06/05/24 08:35 Fentanyl 2,500 Mcg/Ns 250 Ml IV CONT .Q72H JOHN Protocol 25 MCG/HR Midazolam HCl 100 mg in 100 mls @ 1 mls/hr 06/05/24 08:35 Versed 100 Mg/Ns 100 Ml IV CONT .Q72H JOHN Protocol 1 MG/HR Midodrine 10 mg 06/05/24 09:00 Midodrine Hcl 10 Mg Tablet PO TID [facility] Multi-Ingred Cream/Lotion/Oil/Oint 1 applic 06/05/24 09:00 Mineral Oil/White Petrolatum Ointment EACH EYE Q12HR [facility] Pantoprazole Sodium 40 mg 06/05/24 09:00 Pantoprazole Sodium Iv 40 Mg Vial IV PUSH Q12HR [facility] Perflutren Lipid Microsphere 0 ml 06/05/24 00:38 Perflutren Lipid Microspheres 1.5 Ml Vial Diluted To 10 Ml Total Volume IV P USH 06/08/24 00:39 ONCE PRN adequate visualization Protocol Rocuronium [place] 50 mg 06/05/24 09:07 Rocuronium [place] 50 Mg/5 Ml Vial IV PUSH 06/05/24 09:08 ONCE ONE Fluticasone/Salmeterol 2 puff 06/03/24 08:00 06/05/24 07:38 Fluticasone/Salmeterol 115-21 Mcg Inhaler 1 Puff INHALATION Not Given Q12HRT [facility] Sodium Chloride 10 ml 06/05/24 06:00 06/05/24 04:37 Central Line Flush IV PUSH 10 ml Q8HR [facility] Administration Sodium Chloride 20 ml 06/05/24 03:12 Central Line Flush IV PUSH PRN PRN after blood draws Umeclidinium [place] 1 puff 06/03/24 08:00 06/05/24 07:39 Umeclidinium [place] 62.5 Mcg Ellipta INHALATION Not Given DAILYRT [facility] Vancomycin HCl 1 each 06/05/24 03:56 Vancomycin For Acute Kidney Injury IVPB PRN PRN Vancomycin Protocol Radiology Results: ITS Impressions Renal Ultrasound 06/04/24 15:06 IMPRESSION: 1. Normal kidneys. No hydronephrosis. Chest/Abdomen/Pelvis CT 06/04/24 19:12 IMPRESSION: 1. Diffuse lung disease, consistent with pulmonary edema versus pneumonia. 2. Moderate volume of ascites. Chest X-Ray 06/05/24 06:03 Impression: Patchy pulmonary consolidation throughout both lungs is worsened from prior exam. Correlate with severe pulmonary edema versus diffuse pneumonia. Right IJ line in place, tip likely in the right atrium. No pneumothorax. Labs Labs: Laboratory Tests 06/05/24 02:31 06/05/24 08:22 06/05/24 02:32 Sodium 131 L Potassium 5.5 H Chloride 95 L Carbon Dioxide 25 Anion Gap 11 BUN 49 H Creatinine 4.40 H Estim Creat Clear Calc 23 Estimated GFR 10 L Glucose 124 H Lactic Acid 1.1 Uric Acid 8.8 H Calcium 10.0 Total Bilirubin 2.0 H AST 113 H ALT 48 H Alkaline Phosphatase 278 H Total Creatine Kinase 27 L Troponin I < 0.012 NT-Pro-B Natriuret Pep 3570 H Total Protein 7.0 Albumin 3.7 Procalcitonin 0.4 Microbiology 06/02/24 13:47 Urine Clean Catch Urine Culture - Final
[2024-06-05] MEDS: MIDAZOLAM HCL (*CRX) 2 MG/2 ML VIAL 4 MG IV PUSH (09:15)
[2024-06-05] MEDS: MIDAZOLAM 100MG/NS 100ML(*CRX) 100 MG/100 ML BAG IV CONT (09:27)
[2024-06-05] MEDS: FENTANYL 2,500MCG/NS250ML(*CRX 2,500 MCG/250 ML BAG IV CONT (09:28)
--- NOTE | 2024-06-05 09:36 | P.PCNBED_ITS ---
Procedures Intubation Intubation Date: 06/05/24 Intubation Time: 08:50 Consent: Consent was obtained from the patient and her sister, Jose Raul who is power of narrow gauge brakeman for [employer]. A pre-procedural Time-Out was completed immediately before starting the procedure and confirmed: Patient Identification, Site, Procedure, Patient Position and the Availability of Requisite Equipment: Yes Sedative: etomidate Paralytic: rocuronium Laryngoscope: fiber optic video scope Assist device used: fiber optic device ET tube size: 7.5 Tube secured depth (cm): 23 Tube secured location: lips Tube placement confirmation: visualized tube passing through cords, equal breath sounds bilaterally, no breath sounds over epigastrium and confirmation by capnometry Intubation complications: other (First ETT balloon was leaking, so had to exchange it over bougie) Additional comments: Patient has a small mouth, large tongue, increased tissue in the hypopharynx, patient's vocal cords were anterior requiring required pressure. Some bleeding occurred from suctioning and manipulation of the airway. Patient is on Eliquis
--- NOTE | 2024-06-05 09:39 | P.CONIN_ITS ---
Assessment and Plan Assessment and plan (1) Acute respiratory failure: Code(s): J96.00 - Acute respiratory failure, unspecified whether with hypoxia or hypercapnia Status: Acute Assessment and Plan: Patient with increasing oxygen requirements in the last 24 hours, brought to the ICU after midnight on 06/05/2024, chest x-ray showed bilateral diffuse pulmonary infiltrates/pulmonary edema. Patient was placed on BiPAP. ABG showed hypercapnic and hypoxemic respiratory failure -etiology likely related to pulmonary edema, pneumonia, ARDS -06/05: patient intubated for impending respiratory failure. Intubation was slightly challenging secondary to body habitus, small mouth, large tongue, redundant tissue in the hypopharynx and anterior vocal cords requiring cricoid pressure and use of glide scope. -patient placed on CMV mode of ventilation, peep of 14, 100% FiO2 -will obtain. ABGs -start bronchodilator -patient started on steroids for pneumonia - fentanyl and Versed infusion for analgosedation, will maintain RASS of -2 -daily SBT and SAT (2) Septic shock: Code(s): A41.9 - Sepsis, unspecified organism; R65.21 - Severe sepsis with septic shock Status: Acute Assessment and Plan: Septic shock could be related to UTI, pneumonia -patient was hypotensive in the intermediate Unit and was transferred to the ICU which she received fluids, albumin -right IJ central line was inserted and patient started on norepinephrine, will maintain MAP > 65 mmHg or SBP > 100 mmHg adequate end organ perfusion -patient is on vancomycin and cefepime -fluconazole was discontinued given her renal dysfunction -stress dose steroids have been started (3) JOVI (acute kidney injury): Code(s): N17.9 - Acute kidney failure, unspecified Status: Acute Assessment and Plan: Patient with acute kidney injury, this morning her creatinine is 4.60 (creatinine on admission on 06/02/2024 was 2.10 and her creatinine on 04/26/2024 was 0.90) -etiology for acute kidney injury could be multifactorial, hypotension, shock, sepsis, UTI/pneumonia, hypoxia,? SLE flare, CHF, -CK levels are within normal limits -urine eosinophils were negative -urine electrolytes showed prerenal picture, patient seems to be volume overloaded -was given IV fluids and albumin overnight, will hold fluids for now -discussed with playground worker at [facility], feels that the patient is unstable to be transferred at this time for CRRT, recommended conventional dialysis. -discussed with forensic dna analyst at [facility], agrees to conventional dialysis at this time (4) Pulmonary edema: Code(s): J81.1 - Chronic pulmonary edema Status: Acute Assessment and Plan: Pulmonary edema likely related to acute kidney injury, ARDS, -did not respond to Bumex -patient will get dialysis (5) Type 2 diabetes mellitus: Code(s): E11.9 - Type 2 diabetes mellitus without complications Status: Acute Assessment and Plan: SSI and accucheks HbA1C is 5.7 this admission (6) Afib: Code(s): I48.91 - Unspecified atrial fibrillation Status: Acute Assessment and Plan: continue amiodarone (7) SLE (systemic lupus erythematosus): Code(s): M32.9 - Systemic lupus erythematosus, unspecified Status: Acute Assessment and Plan: ? SLE flare Started on stress dose steroids (8) Liver cirrhosis secondary to HOFFMANN: Code(s): K75.81 - Nonalcoholic steatohepatitis (HOFFMANN); K74.60 - Unspecified cirrhosis of liver Status: Acute Assessment and Plan: Mild elevation in LFTs, which are improving -continue to monitor (9) GERD (gastroesophageal reflux disease): Code(s): K21.9 - Gastro-esophageal reflux disease without esophagitis Status: Acute Assessment and Plan: Will discontinue famotidine and start Protonix (10) Morbid obesity with BMI of 50.0-59.9, adult: Code(s): E66.01 - Morbid (severe) obesity due to excess calories; Z68.43 - Body mass index [BMI] 50.0-59.9, adult Status: Acute Assessment and Plan: Once extubated she will need lifestyle changes Plan DVT prophylaxis: Eliquis Stress ulcer prophylaxis: Protonix Nutrition: NPO Code Status: Full code Critical Care Time Spent: 59 minutes Discussed with patient's sister JAMES Blunt, on the phone and updated with patient's condition and plan of care. I answered all questions Due to a high probability of clinically significant, life threatening deterioration, the patient required my highest level of preparedness to intervene emergently and I personally spent this critical care time directly and personally managing the patient. This critical care time included obtaining a history; examining the patient; pulse oximetry; ordering and review of studies; arranging urgent treatment with development of a management plan; evaluation of patient's response to treatment; frequent reassessment; and discussions with other providers. It was exclusive of separately billable procedures and treating other patients and teaching time. Please see Assessment and Plan section and the rest of the note for further information on patient assessment and treatment This dictation may have been done utilizing a voice recognition system. Attempts have been made to correct errors. However, there may be uncorrected grammatical, spelling, and recognitions errors present. Tube Mill Operator Consult Note Consult date: 06/05/24 HPI: Ariana Spring is a 54 year old female with past medical history of asthma, atrial fibrillation, status post pacemaker with pacemaker placement complicated by perforation of the myocardium requiring open-heart surgery ([facility]), chronic respiratory failure with hypoxia and hypercapnia and uses 3- 4 L of oxygen via nasal cannula at baseline, depression, essential hypertension, GERD, hyperparathyroidism, liver cirrhosis secondary to HOFFMANN, migraines, morbid obesity, obstructive sleep apnea, history of flu SLE, restrictive lung disease, history of UTIs, presented the ED on 06/02/2024 with complains of shortness of breath, generalized weakness, 20 lb weight gain, decreased urine output, trouble urinating, rash in her pannus. Patient was found to have acute kidney injury in the ER with a creatinine of 2.10 (creatinine was 0.90 on 04/26/2024), mildly elevated LFTs, BNP was 1560, UA was positive for UTI, patient was started on Levaquin in the ER but was switched to ceftriaxone on the medical floor. Lai catheter was inserted on the medical floor as patient was unable to void. Chest x-ray showed pulmonary edema. Patient was hypotensive along with worsening c reatinine on the medical floor during her course of stay. On 06/04/2024 patient was hypotensive, hypoxic, was given IV fluid bolus and started on midodrine and albumin. -on 06/05/2024 dye tub operator patient started to developed respiratory distress with increasing oxygen requirements in the last 24 hours along with hypotension, patient was transferred to the ICU where central line was inserted and started on norepinephrine patient was tachycardic, hypoxic with hypercapnia on BiPAP. 06/05/2024: Patient seen and examined the ICU, remains hypoxic on 100% FiO2 on a BiPAP setting of 18/10, tachypneic with respiratory rates between 30-35. Patient is not able to even answer one-word questions, chest x-ray shows bilateral diffuse infiltrates. Patient was intubated for impending respiratory failure after discussing and obtaining consent from the patient and her sister, Jose Raul who is the POA. Intubation was a slightly challenging as patient had a small mouth, large tongue, redundant tissues in the hypopharynx, vocal cords were anterior and required frequent pressure. [place] scope was utilized to intubate the patient. Prior to intubation she was awake, following commands and was giving one-word answers to questions patient. Currently being sedated with fentanyl and Versed infusion. Review of Systems Review of Systems: ROS unobtainable: Yes unobtainable due to endotracheal tube, unobtainable due to medical condition and unobtainable due to mental status PMFSH Past Medical History Medical History (Updated 06/05/24 @ 11:25 by Linda Jj MD) Asthma Per patient report but PFTs within our system demonstrated restrictive lung disease not obstructive Atrial fibrillation Chronic respiratory failure with hypoxia and hypercapnia On 3 L nasal cannula home. Intolerant BiPAP. Depression Essential hypertension GERD (gastroesophageal reflux disease) Hyperparathyroidism Liver cirrhosis secondary to HOFFMANN Migraines Morbid obesity with body mass index (BMI) greater than or equal to 50 Obstructive sleep apnea Intolerant of BiPAP Restrictive lung disease Restrictive lung disease noted on PFTs within the old record system. No mention of obstructive disease on that pulmonary function testing SLE (systemic lupus erythematosus) Reportedly with mostly skinaffects Surgical History Surgical History (Updated 06/05/24 @ 03:47 by Brii Foote DO) History of appendectomy Status post cardiac pacemaker procedure Complicated by perforation of the myocardium requiring subsequent open heart surgery performed at [facility] Family History Family History Mother Hypertension Heart attack Social History Social History Smoking packs per day: 0.5 Smoking cigarettes per day: 10.0 Years smoked: 20 Smoking pack-years: 10.00 Smoking status: Former smoker Tobacco type: cigarettes Second hand tobacco smoke exposure: Yes ( smokes in home) Smoking end date: 08/22/07 Additional smoking assessment comments: 2 years since last smoked. Alcohol intake: never Substance use: never Substance use type: does not use Do You Feel Safe in your Home?: Yes Lack of Transportation: No Lack of Food: Never True Current Housing: I Have Housing Concerned About Future Housing: No Difficulty Paying Gas/Electric Bills: No Difficulty Paying for Meds: No Currently Unemployed: No Education: High School Diploma/GED Difficulty w/ Childcare or Family Care: No Spiritual care concerns: No Meds Home Medications and Allergies Home Medications Medication Instructions Recorded Confirmed Type amiodarone 200 mg tablet 200 mg PO BID 11/26/23 06/02/24 History apixaban 5 mg tablet (Eliquis) 5 mg PO BID 11/26/23 06/02/24 History dapagliflozin propanediol 5 mg 5 mg PO DAILY 11/26/23 06/02/24 History tablet (Farxiga) famotidine 20 mg tablet 20 mg PO BID 11/26/23 06/02/24 History flecainide 100 mg tablet 100 mg PO BID 11/26/23 06/02/24 History furosemide 40 mg tablet 40 mg PO BID 11/26/23 06/02/24 History gabapentin 100 mg capsule 200 mg PO TID 11/26/23 06/02/24 History magnesium oxide 400 mg (241.3 mg 400 mg PO BID 11/26/23 06/02/24 History magnesium) tablet metoprolol tartrate 25 mg tablet 25 mg PO BID 11/26/23 06/02/24 History potassium chloride 20 mEq 40 meq PO BID 11/26/23 06/02/24 History tablet,extended release(part/cryst) albuterol sulfate 90 mcg/actuation 2 puff inhalation Q4H PRN 06/02/24 06/02/24 History aerosol inhaler Shortness Of Breath ergocalciferol (vitamin D2) 1,250 50,000 unit PO WEEKLY 06/02/24 06/02/24 History mcg (50,000 unit) capsule fluticasone 250 mcg-salmeterol 50 1 inh inhalation BID 06/02/24 06/02/24 History mcg/dose blistr powdr for inhalation (Advair Diskus) tiotropium bromide 2.5 2 puff inhalation DAILY 06/02/24 06/02/24 History mcg/actuation mist for inhalation (Spiriva Respimat) Allergies Allergy/AdvReac Type Severity Reaction Status Date / Time oxycodone [From Percocet] Allergy Intermediate Hives Verified 06/02/24 11:46 Penicillins Allergy Intermediate Hives Verified 06/02/24 11:46 Vital Signs Vital Signs - 24 hr 06/04/24 10:00 06/04/24 12:00 06/04/24 12:00 Temperature 97.8 F Pulse Rate 60 63 60 Respiratory Rate 22 H Blood Pressure 91/42 L Pulse Oximetry 98 Oxygen Delivery Oxygen Flow Rate Fraction of Inspired Oxygen 06/04/24 12:00 06/04/24 14:00 06/04/24 14:10 Temperature Pulse Rate 60 61 Respiratory Rate 22 H Blood Pressure Pulse Oximetry 95 94 Oxygen Delivery High Flow Therapy with Na High Flow Therapy with Na Oxygen Flow Rate 50 50 Fraction of Inspired Oxygen 90 72 06/04/24 12:40 06/04/24 16:00 06/04/24 18:11 Temperature 99 F Pulse Rate 68 59 L Respiratory Rate 24 H 22 H Blood Pressure 99/55 L 96/78 L Pulse Oximetry 92 90 Oxygen Delivery High Flow Therapy with Na Oxygen Flow Rate 50 Fraction of Inspired Oxygen 90 06/04/24 18:00 06/04/24 18:28 06/04/24 16:00 Temperature Pulse Rate 62 62 Respiratory Rate Blood Pressure 99/45 L Pulse Oximetry Oxygen Delivery Oxygen Flow Rate Fraction of Inspired Oxygen 06/04/24 19:30 06/04/24 20:37 06/04/24 20:37 Temperature 98.1 F Pulse Rate 60 61 61 Respiratory Rate 23 H Blood Pressure 94/43 L Pulse Oximetry 91 Oxygen Delivery Oxygen Flow Rate Fraction of Inspired Oxygen 06/04/24 20:58 06/04/24 20:00 06/04/24 20:00 Temperature Pulse Rate 61 60 Respiratory Rate 23 H Blood Pressure Pulse Oximetry 92 92 Oxygen Delivery High Flow Therapy with Na High Flow Therapy with Na Oxygen Flow Rate 50 50 Fraction of Inspired Oxygen 70 72 06/04/24 22:00 06/04/24 23:51 06/05/24 00:00 Temperature Pulse Rate 62 62 62 Respiratory Rate 23 H Blood Pressure Pulse Oximetry 92 Oxygen Delivery High Flow Therapy with Na Oxygen Flow Rate 50 Fraction of Inspired Oxygen 70 06/04/24 23:53 06/05/24 01:39 06/05/24 01:15 Temperature 98.5 F Pulse Rate 61 65 67 Respiratory Rate 23 H Blood Pressure 85/43 L 100/58 L 104/70 Pulse Oximetry 91 Oxygen Delivery Oxygen Flow Rate Fraction of Inspired Oxygen 06/05/24 02:48 06/05/24 02:00 06/05/24 02:00 Temperature Pulse Rate 68 68 Respiratory Rate 30 H 28 H Blood Pressure 113/57 L Pulse Oximetry 91 89 L Oxygen Delivery BiPAP Oxygen Flow Rate Fraction of Inspired Oxygen 06/05/24 02:30 06/05/24 03:00 06/05/24 03:30 Temperature Pulse Rate 68 66 66 Respiratory Rate 25 H 27 H 28 H Blood Pressure 103/64 110/67 121/57 L Pulse Oximetry 87 L 93 94 Oxygen Delivery Oxygen Flow Rate Fraction of Inspired Oxygen 06/05/24 03:45 06/05/24 04:00 06/05/24 02:00 Temperature 98.3 F Pulse Rate 66 66 68 Respiratory Rate 25 H 27 H Blood Pressure 118/67 103/64 Pulse Oximetry 93 93 Oxygen Delivery BiPAP Oxygen Flow Rate Fraction of Inspired Oxygen 100 06/05/24 04:00 06/05/24 04:00 06/05/24 05:35 Temperature Pulse Rate 66 66 62 Respiratory Rate 28 H Blood Pressure 118/67 Pulse Oximetry Oxygen Delivery Oxygen Flow Rate Fraction of Inspired Oxygen 06/05/24 05:45 06/05/24 06:24 06/05/24 06:00 Temperature Pulse Rate 69 69 Respiratory Rate 28 H Blood Pressure Pulse Oximetry 98 Oxygen Delivery Oxygen Flow Rate Fraction of Inspired Oxygen 06/05/24 06:00 06/05/24 06:00 06/05/24 05:00 Temperature Pulse Rate 62 62 63 Respiratory Rate 27 H 27 H Blood Pressure 107/53 L 107/53 L 114/51 L Pulse Oximetry 96 92 Oxygen Delivery Oxygen Flow Rate Fraction of Inspired Oxygen 06/05/24 07:00 06/05/24 07:15 06/05/24 07:30 Temperature Pulse Rate 72 70 70 Respiratory Rate Blood Pressure 98/46 L 102/43 L 110/66 Pulse Oximetry Oxygen Delivery Oxygen Flow Rate Fraction of Inspired Oxygen 06/05/24 07:33 06/05/24 08:00 06/05/24 08:00 Temperature 99.9 F H Pulse Rate 71 70 70 Respiratory Rate 16 25 H 26 H Blood Pressure 104/61 Pulse Oximetry 97 96 96 Oxygen Delivery BiPAP BiPAP Oxygen Flow Rate Fraction of Inspired Oxygen 40 06/05/24 09:27 06/05/24 09:28 06/05/24 08:57 Temperature Pulse Rate 72 72 69 Respiratory Rate 26 H 26 H Blood Pressure 94/71 L Pulse Oximetry Oxygen Delivery Oxygen Flow Rate Fraction of Inspired Oxygen Exam Narrative: General: Morbidly obese female currently intubated and sedated in no acute distress HEENT:? Pupils equal and reactive bilaterally, sclera is clear, ETT in place Neck:, short and thick neck, Respiratory:? Decreased and coarse breath sounds bilaterally, no wheezing, Cardiac:? S1-S2 is normal, regular rate and rhythm Abdomen:? Morbid obesity, soft, hypoactive bowel sounds Extremities:? Bilateral lower extremity pitting edema, decreased pedal pulses Neuro:? Patient is intubated, sedated, does not open her eyes or follow simple commands at this time. Prior to intubation patient was awake, was able to follow commands and give me one-word answers due to respiratory distress. Skin:? Erythema in the intertriginous region and under her pannus Psych:? Unable to assess at this time Results Labs 06/05/24 02:31 06/05/24 08:22 Labs: Short CBC 06/05/24 Range/Units 02:31 WBC 12.6 H (4.5-10.0) K/mm3 Hgb 11.1 L (12.0-15.0) g/dL Hct 36.0 L (37.0-47.0) % Plt Count 367 (150-375) k/mm3 BMP 06/05/24 06/05/24 02:31 08:22 Sodium 131 L 132 L Potassium 5.5 H 5.2 H Chloride 95 L 96 L Carbon Dioxide 25 27 BUN 49 H 53 H Creatinine 4.40 H 4.60 H Glucose 124 H 144 H Calcium 10.0 9.9 Cardiac Enzymes 06/05/24 Range/Units 02:31 Total Creatine Kinase 27 L (30-135) U/L Troponin I < 0.012 (0.000-0.034) ng/mL Liver Function 06/05/24 Range/Units 02:31 Total Bilirubin 2.0 H (0.2-1.3) mg/dL AST 113 H (14-36) U/L ALT 48 H (6-35) U/L Alkaline Phosphatase 278 H (38-126) U/L Albumin 3.7 (3.5-5.1) g/dL
[2024-06-05] MEDS: INSULIN HUMAN REGULAR (*BKC) 100 UNITS/ML 10 UNITS IV PUSH (09:41)
[2024-06-05] MEDS: DEXTROSE 50% 25 GM/50 ML SYRINGE IV PUSH (09:42)
[2024-06-05] MEDS: MINERAL OIL/WHITE PETROLATUM OINTMENT 1 APPLIC EACH EYE ×2 (09:47→21:54)
[2024-06-05] MEDS: MIDODRINE HCL 10 MG TABLET PO ×3 (09:48→18:10)
[2024-06-05] MEDS: AMIODARONE HCL 200 MG TABLET PO ×2 (09:49→21:52)
[2024-06-05] MEDS: APIXABAN 5 MG TABLET PO (09:49)
[2024-06-05 10:47] LABS: Alveolar/Arterial O2 Gradient 603.3 mmHg; Base Excess ABG -1.6 mEq/l (+/-2.0); Carboxyhemoglobin 0.6 % THb (0-2.0); Fractional Inspired Oxygen 100 %; Methemoglobin ABG 0.2 %THb (0-1.5); PCO2 ABG 57.1 mmHg (35.0-45.0); PO2 ABG 52.6 mmHg (80.0-100.0); PO2 FiO2 Ratio Arterial Blood 0.53 %; Reduced Hemoglobin 15.4 %THb (0-5.0); Total Hemoglobin 11.9 g/dL (12.0-18.0)
[2024-06-05 10:50] LABS: pH ABG 7.276 (7.350-7.450)
[2024-06-05] MEDS: BUMETANIDE INJ 1 MG/4 ML VIAL 2 MG IV PUSH (10:50)
[2024-06-05 10:51] LABS: Oxygen Saturation ABG 82.1 % (95.0-100.0)
[2024-06-05 10:52] LABS: Device VENTILATOR; Oxyhemoglobin 83.8 % THb (90.0-100.0); Site Drawn RIGHT BRACHIAL
[2024-06-05 10:53] LABS: Arterial Blood Gas PEEP 10 cmH2O; Arterial Blood Gas Vent Mode CMV; Arterial Blood Gas Ventilator rate 26 /MIN
[2024-06-05 10:54] LABS: Arterial Blood Gas Tidal Volume 400 ml
[2024-06-05] MEDS: IPRATROPIUM 0.5 MG/ALBUTEROL SULFATE 2.5 MG AMPUL.NEB 3 ML INHALATION ×3 (11:18→20:16)
[2024-06-05 11:43] LABS: Lactic Acid Reflex 3.3 mmol/L (0.7-2.0)
[2024-06-05] MEDS: FLECAINIDE ACETATE 100 MG TABLET PO ×2 (11:53→21:52)
[2024-06-05 12:03] LABS: Glucose Point of Care 158 mg/dl (65-105)
--- NOTE | 2024-06-05 12:13 | PC.NURSE ---
Unable to update spouse via telephone. No voicemail available at this time.
[2024-06-05] MEDS: PERFLUTREN LIPID MICROSPHERES 1.5 ML VIAL DILUTED TO 10 ML TOTAL VOLUME IV PUSH (13:10)
--- NOTE | 2024-06-05 13:10 | IVDEFINITY ---
Prior to administration of IV Definity the patient was educated on the risks and benefits of the imaging enhancing agent including potential adverse side effects. The patient verbalized understanding. Allergies were verified. No exclusion criteria were identified and at least one of the following inclusion criteria were met: 1) physician request, 2) patient technically difficult to image (per the [place] [employer] guidelines of two or more segments not discernable within the apical view), or 3) questionable left ventricular function. ?
[2024-06-05] MEDS: MIDAZOLAM HCL (*CRX) 2 MG/2 ML VIAL IV PUSH (13:15)
--- NOTE | 2024-06-05 13:39 | P.PNIM_ITS ---
Progress Note: A&P Assessment and Plan (1) Acute respiratory failure: Code(s): J96.00 - Acute respiratory failure, unspecified whether with hypoxia or hypercapnia Status: Acute Assessment and Plan: Patient originally admitted for difficulty voiding. Patient developed HoTN and hypoxia yesterday that worsened overnight. ABG showing 7.33/58/66.5 on HFNC. Patient brought to the ICU earlier this morning. She had increasing O2 requirements. CXR showed bilateral diffuse pulmonary infiltrates/pulmonary edema. Respiratory failure related to pulmonary edema, pneumonia and/or ARDS Patient was placed on BiPAP. ABG showed 7.28/68/69 on bipap. Patient was intubated this morning. Bronchodilators started Patient started on stress dose steroids and Abx continued Fentanyl and Versed infusion for sedation Appreciate global climate change researcher input (2) Septic shock: Code(s): A41.9 - Sepsis, unspecified organism; R65.21 - Severe sepsis with septic shock Status: Acute Assessment and Plan: Patient was HoTN in the IMU and transferred to the ICU. Septic shock possibly related to UTI, pneumonia. Rt IJ central line was placed and Levophed started. She received fluids, albumin and midodrine Patient is on vancomycin and cefepime which were continued Fluconazole was discontinued given her renal dysfunction Stress dose steroids were started (3) JOVI (acute kidney injury): Code(s): N17.9 - Acute kidney failure, unspecified Status: Acute Assessment and Plan: Baseline Cr normal in April. Cr 2.1 on admission and has worsened JOVI related to shock, sepsis, UTI/pneumonia, hypoxia, SLE flare and/or CHF. TCK levels are normal. Ueos negative. Urine lytes c/w prerenal picture but patient seems to be volume overloaded She was given IV fluids and albumin overnight; further IV fluids on hold. Post Splitter recommended transfer for CRRT but unable to do so at this time; they recommended conventional dialysis. Separator Inserter here was aware with plans for conventional dialysis at this time (4) Pulmonary edema: Code(s): J81.1 - Chronic pulmonary edema Status: Acute Assessment and Plan: CT chest (06/04) showing diffuse lung disease c/w PNA vs pulmonary edema. Pulmonary edema likely related to acute kidney injury, ARDS. COVID, RSV and influenza PCR negative on 06/05 She did not respond to Bumex Control fluid status with HD (5) Type 2 diabetes mellitus: Code(s): E11.9 - Type 2 diabetes mellitus without complications Status: Acute Assessment and Plan: A1c 5.7. The patient's blood glucose was reviewed on 06/05 Glucose remains reasonably well controlled. Continue AccuCheks covering with sliding scale. Hypoglycemia protocol available as needed. Continue to monitor (6) Afib: Code(s): I48.91 - Unspecified atrial fibrillation Status: Acute Assessment and Plan: HR well controlled. Continue amiodarone Stop Eliquis for possible dialysis catheter placement. (7) SLE (systemic lupus erythematosus): Code(s): M32.9 - Systemic lupus erythematosus, unspecified Status: Acute Assessment and Plan: Consider SLE flare causinig her JOVI. Started on stress dose steroids Nephrology consulted (8) Liver cirrhosis secondary to HOFFMANN: Code(s): K75.81 - Nonalcoholic steatohepatitis (HOFFMANN); K74.60 - Unspecified cirrhosis of liver Status: Acute Assessment and Plan: Patient has a hx of liver cirrhosis. CT abd without contrast shows normal liver. Mild elevation in AST/ALT but that are now improving. TBili higher at 2. [place] related to congestion. Continue to monitor (9) Morbid obesity with BMI of 50.0-59.9, adult: Code(s): E66.01 - Morbid (severe) obesity due to excess calories; Z68.43 - Body mass index [BMI] 50.0-59.9, adult Status: Acute Assessment and Plan: Once extubated she will need lifestyle changes Plan DVT prophylaxis: Eliquis Stress ulcer prophylaxis: Protonix Nutrition: NPO Code Status: Full code Subjective Date/time seen: 06/05/24 13:39 Interval history: 54yo female with AFib on anticoagulation, PM and DM here for difficulty voiding. Assuming care. Chart reviewed. Patient had worsening respiratory status and hypotension despite ongoing therapy and was transfered to the ICU. Central line was placed and started on pressor therapy. She was intubated this morning. Patient was unable to provide hx. Review of Systems Review of Systems: ROS unobtainable: Yes unobtainable due to endotracheal tube Exam Narrative: AF 98.1 93/48 61 26 94% MV Gen - intubated and sedated HEENT - ETT secured. OGT secured. Neck - Rt IJ TLC in place. Chest - mildly coarse anteriorly. CV - RRR S1/S2. Tele showing Paced with occasional NSVT Abd - soft, morbidly obese, massive flank and abd wall edema. - Lai secured draining clear, dark urine Ext - diffuse LE pitting pedal edema Neuro - sedated Skin - Warm and dry Objective Data Vital Signs Vital Signs: Vital Signs - 24 hr 06/04/24 14:00 06/04/24 14:10 06/04/24 16:00 Temperature 99 F Pulse Rate 60 61 59 L Respiratory Rate 22 H 22 H Blood Pressure 99/55 L Pulse Oximetry 94 90 Oxygen Delivery High Flow Therapy with Na Oxygen Flow Rate 50 Fraction of Inspired Oxygen 72 06/04/24 18:11 06/04/24 18:00 06/04/24 18:28 Temperature Pulse Rate 62 Respiratory Rate Blood Pressure 96/78 L 99/45 L Pulse Oximetry Oxygen Delivery Oxygen Flow Rate Fraction of Inspired Oxygen 06/04/24 16:00 06/04/24 19:30 06/04/24 20:37 Temperature 98.1 F Pulse Rate 62 60 61 Respiratory Rate 23 H Blood Pressure 94/43 L Pulse Oximetry 91 Oxygen Delivery Oxygen Flow Rate Fraction of Inspired Oxygen 06/04/24 20:37 06/04/24 20:58 06/04/24 20:00 Temperature Pulse Rate 61 61 Respiratory Rate 23 H Blood Pressure Pulse Oximetry 92 92 Oxygen Delivery High Flow Therapy with Na High Flow Therapy with Na Oxygen Flow Rate 50 50 Fraction of Inspired Oxygen 70 72 06/04/24 20:00 06/04/24 22:00 06/04/24 23:51 Temperature Pulse Rate 60 62 62 Respiratory Rate 23 H Blood Pressure Pulse Oximetry 92 Oxygen Delivery High Flow Therapy with Na Oxygen Flow Rate 50 Fraction of Inspired Oxygen 70 06/05/24 00:00 06/04/24 23:53 06/05/24 01:39 Temperature 98.5 F Pulse Rate 62 61 65 Respiratory Rate 23 H Blood Pressure 85/43 L 100/58 L Pulse Oximetry 91 Oxygen Delivery Oxygen Flow Rate Fraction of Inspired Oxygen 06/05/24 01:15 06/05/24 02:48 06/05/24 02:00 Temperature Pulse Rate 67 68 Respiratory Rate 30 H 28 H Blood Pressure 104/70 113/57 L Pulse Oximetry 91 89 L Oxygen Delivery BiPAP Oxygen Flow Rate Fraction of Inspired Oxygen 06/05/24 02:00 06/05/24 02:30 06/05/24 03:00 Temperature Pulse Rate 68 68 66 Respiratory Rate 25 H 27 H Blood Pressure 103/64 110/67 Pulse Oximetry 87 L 93 Oxygen Delivery Oxygen Flow Rate Fraction of Inspired Oxygen 06/05/24 03:30 06/05/24 03:45 06/05/24 04:00 Temperature 98.3 F Pulse Rate 66 66 66 Respiratory Rate 28 H 25 H 27 H Blood Pressure 121/57 L 118/67 Pulse Oximetry 94 93 93 Oxygen Delivery BiPAP Oxygen Flow Rate Fraction of Inspired Oxygen 100 06/05/24 02:00 06/05/24 04:00 06/05/24 04:00 Temperature Pulse Rate 68 66 66 Respiratory Rate Blood Pressure 103/64 118/67 Pulse Oximetry Oxygen Delivery Oxygen Flow Rate Fraction of Inspired Oxygen 06/05/24 05:35 06/05/24 05:45 06/05/24 06:24 Temperature Pulse Rate 62 69 Respiratory Rate 28 H 28 H Blood Pressure Pulse Oximetry 98 Oxygen Delivery Oxygen Flow Rate Fraction of Inspired Oxygen 06/05/24 06:00 06/05/24 06:00 06/05/24 06:00 Temperature Pulse Rate 69 62 62 Respiratory Rate 27 H Blood Pressure 107/53 L 107/53 L Pulse Oximetry 96 Oxygen Delivery Oxygen Flow Rate Fraction of Inspired Oxygen 06/05/24 05:00 06/05/24 07:00 06/05/24 07:15 Temperature Pulse Rate 63 72 70 Respiratory Rate 27 H Blood Pressure 114/51 L 98/46 L 102/43 L Pulse Oximetry 92 Oxygen Delivery Oxygen Flow Rate Fraction of Inspired Oxygen 06/05/24 07:30 06/05/24 07:33 06/05/24 08:00 Temperature 99.9 F H Pulse Rate 70 71 70 Respiratory Rate 16 25 H Blood Pressure 110/66 104/61 Pulse Oximetry 97 96 Oxygen Delivery BiPAP Oxygen Flow Rate Fraction of Inspired Oxygen 06/05/24 08:00 06/05/24 09:27 06/05/24 09:28 Temperature Pulse Rate 70 72 72 Respiratory Rate 26 H 26 H 26 H Blood Pressure Pulse Oximetry 96 Oxygen Delivery BiPAP Oxygen Flow Rate Fraction of Inspired Oxygen 40 06/05/24 08:57 06/05/24 09:15 06/05/24 09:49 Temperature Pulse Rate 69 64 64 Respiratory Rate Blood Pressure 94/71 L Pulse Oximetry 94 Oxygen Delivery Mechanical Ventilation Oxygen Flow Rate Fraction of Inspired Oxygen 100 06/05/24 08:00 06/05/24 10:00 06/05/24 09:00 Temperature Pulse Rate 64 66 69 Respiratory Rate Blood Pressure 111/64 Pulse Oximetry Oxygen Delivery Oxygen Flow Rate Fraction of Inspired Oxygen 06/05/24 09:30 06/05/24 10:00 06/05/24 10:00 Temperature Pulse Rate 65 66 66 Respiratory Rate 26 H Blood Pressure 103/50 L 101/48 L Pulse Oximetry Oxygen Delivery Oxygen Flow Rate Fraction of Inspired Oxygen 06/05/24 10:00 06/05/24 10:00 06/05/24 10:30 Temperature Pulse Rate 66 66 63 Respiratory Rate 26 H 26 H Blood Pressure 101/48 L 107/51 L Pulse Oximetry 90 Oxygen Delivery Oxygen Flow Rate Fraction of Inspired Oxygen 06/05/24 10:45 06/05/24 11:53 06/05/24 12:00 Temperature 98.1 F Pulse Rate 62 61 61 Respiratory Rate 26 H Blood Pressure 107/51 L 103/49 L Pulse Oximetry 94 Oxygen Delivery Oxygen Flow Rate Fraction of Inspired Oxygen 06/05/24 12:00 06/05/24 12:00 06/05/24 12:06 Temperature Pulse Rate 61 61 61 Respiratory Rate 26 H 26 H Blood Pressure 103/49 L Pulse Oximetry Oxygen Delivery Oxygen Flow Rate Fraction of Inspired Oxygen 06/05/24 12:00 06/05/24 13:15 06/05/24 11:09 Temperature Pulse Rate 61 61 62 Respiratory Rate Blood Pressure 93/48 L Pulse Oximetry 91 Oxygen Delivery Mechanical Ventilation Oxygen Flow Rate Fraction of Inspired Oxygen 100 06/05/24 11:19 06/05/24 11:28 Temperature Pulse Rate 62 62 Respiratory Rate 26 H 20 Blood Pressure Pulse Oximetry Oxygen Delivery Oxygen Flow Rate Fraction of Inspired Oxygen Intake/Output Intake/Output: Intake & Output 06/02/24 06/03/24 06/04/24 06/05/24 23:59 23:59 23:59 23:59 Intake Total 1270 1490 1630 859.1 Output Total 600 400 30 Balance 1505 191 3280 829.1 Meds/Results Medications: Active Medications Generic Name Dose Route Start Last Admin Trade Name Freq PRN Reason Stop Dose Admin Albuterol/Ipratropium 3 ml 06/05/24 11:15 06/05/24 11:18 Ipratropium 0.5 Mg/Albuterol Sulfate 2.5 Mg Ampul.Neb 3 Ml INHALATION 3 ml Q6HRT JOHN Administration Amiodarone HCl 200 mg 06/02/24 21:00 06/05/24 09:49 Amiodarone Hcl 200 Mg Tablet PO 200 mg Q12HR JOHN Administration Dextrose 12.5 gm 06/05/24 11:46 Dextrose 50% 25 Gm/50 Ml Syringe IV PUSH PRN PRN Hypoglycemia Protocol Flecainide Acetate 100 mg 06/02/24 21:00 06/05/24 11:53 Flecainide Acetate 100 Mg Tablet PO 100 mg Q12HR JOHN Administration Gabapentin 200 mg 06/02/24 22:00 06/04/24 21:07 Gabapentin 100 Mg Capsule PO 200 mg Q8HR JOHN Administration Glucagon 1 mg 06/05/24 11:46 Glucagon For Inj 1 Mg Vial IM PRN PRN Hypoglycemia Protocol Glucose 15 gm 06/05/24 11:46 Glucose Oral Gel 15 Gm Of Glucse In 37.5 Gm Tube PO PRN PRN Hypoglycemia Protocol Hydrocortisone Sodium Succinate 100 mg 06/05/24 14:00 Hydrocortisone Sodium Succinate 100 Mg/2 Ml Vial IV PUSH Q8HR JOHN Norepinephrine Bitartrate 8 mg in 250 mls @ 30 mls/hr 06/05/24 00:35 06/05/24 13:15 Levophed 8 Mg/D5w 250 Ml IV CONT 16 mcg/min .Q8H20M JOHN 30 mls/hr Titration Protocol 16 MCG/MIN Fentanyl Citrate 2,500 mcg in 250 mls @ 5 mls/hr 06/05/24 08:35 06/05/24 12:00 Fentanyl 2,500 Mcg/Ns 250 Ml IV CONT 50 mcg/hr .Q50H JOHN 5 mls/hr Titration Protocol 50 MCG/HR Midazolam HCl 100 mg in 100 mls @ 2 mls/hr 06/05/24 08:35 06/05/24 12:00 Versed 100 Mg/Ns 100 Ml IV CONT 2 mg/hr .Q50H JOHN 2 mls/hr Titration Protocol 2 MG/HR Dextrose 1,000 mls @ 100 mls/hr 06/05/24 11:46 Dextrose 5% 1,000 Ml IVPB PRN PRN Hypoglycemia Protocol Albumin Human 50 mls @ 999 mls/hr 06/05/24 12:43 Albutein IVPB 07/05/24 12:42 Q10M PRN HYPOTENSION Sodium Chloride 1,000 mls @ 999 mls/hr 06/05/24 12:43 Normal Saline Iv IV CONT 06/05/24 13:43 .Q1H1M ONE Cefepime HCl 2 gm in 50 mls @ 100 mls/hr 06/05/24 18:00 Maxipime 2 Gm/Ns 50 Ml IVPB Q24H [facility] Insulin Aspart 3 - 6 units 06/05/24 12:00 06/05/24 12:02 Insulin Aspart (*Bkc) 100 Units/Ml SUB-Q Not Given Q6HR [facility] Protocol Midodrine 10 mg 06/05/24 09:00 06/05/24 09:48 Midodrine Hcl 10 Mg Tablet PO 10 mg TID JOHN Administration Multi-Ingred Cream/Lotion/Oil/Oint 1 applic 06/05/24 09:00 06/05/24 09:47 Mineral Oil/White Petrolatum Ointment EACH EYE 1 applic Q12HR JOHN Administration Pantoprazole Sodium 40 mg 06/06/24 09:00 Pantoprazole Sodium Iv 40 Mg Vial IV PUSH Q12HR JOHN Fluticasone/Salmeterol 2 puff 06/03/24 08:00 06/05/24 07:38 Fluticasone/Salmeterol 115-21 Mcg Inhaler 1 Puff INHALATION Not Given Q12HRT JOHN Sodium Chloride 10 ml 06/05/24 06:00 06/05/24 04:37 Central Line Flush IV PUSH 10 ml Q8HR JOHN Administration Sodium Chloride 20 ml 06/05/24 03:12 Central Line Flush IV PUSH PRN PRN after blood draws Umeclidinium [place] 1 puff 06/03/24 08:00 06/05/24 07:39 Umeclidinium [place] 62.5 Mcg Ellipta INHALATION Not Given DAILYRT JOHN Vancomycin HCl 1 each 06/05/24 13:14 Vancomycin For Hemodialysis IVPB PRN PRN Vancomycin Protocol Radiology Results: ITS Impressions Renal Ultrasound 06/04/24 15:06 IMPRESSION: 1. Normal kidneys. No hydronephrosis. Chest/Abdomen/Pelvis CT 06/04/24 19:12 IMPRESSION: 1. Diffuse lung disease, consistent with pulmonary edema versus pneumonia. 2. Moderate volume of ascites. Abdomen X-Ray 06/05/24 09:37 IMPRESSION: 1. Lines and tubes all in expected positions. 2. Diffuse patchy bilateral lung disease which could represent pulmonary edema and/or pneumonia. 3. Cardiomegaly. Chest X-Ray 06/05/24 09:37 IMPRESSION: 1. Lines and tubes all in expected positions. 2. Diffuse patchy bilateral lung disease which could represent pulmonary edema and/or pneumonia. 3. Cardiomegaly. Labs Labs: Laboratory Results - last 24 hr 06/04/24 06/04/24 06/04/24 13:07 15:53 18:33 WBC RBC Hgb Hct MCV MCH MCHC RDW Plt Count MPV Immature Gran % (Auto) Neut % (Auto) Lymph % (Auto) [place] % (Auto) Eos % (Auto) Baso % (Auto) Lymph # (Auto) [place] # (Auto) Eos # (Auto) Baso # (Auto) Abs Immat Gran (auto) Absolute Neuts (auto) Absolute Nucleated RBC Nucleated RBC % ESR PT INR APTT Puncture Site Left radial ABG pH 7.330 L ABG pCO2 58.0 H ABG pO2 66.5 L ABG PO2/FiO2 Ratio 0.92 ABG HCO3 30.0 H ABG O2 Saturation 91.5 L ABG O2 Content 15.4 L ABG Base Excess 3.0 A-a Gradient 384.8 Oxyhemoglobin 92.5 Carboxyhemoglobin Methemoglobin Reduced Hemoglobin Total Hemoglobin 11.8 L O2 Delivery Device High flow therapy O2 Liters/Min 50.0 Minute Volume Vent Rate Vent Mode FiO2 72 Expiratory Pressure Tidal Volume PEEP Inspiratory Pressure Peak Inspir Pressure Pressure Support Sodium Potassium Chloride Carbon Dioxide Anion Gap BUN Creatinine Estim Creat Clear Calc Estimated GFR Glucose POC Capillary Glucose 142 H Lactic Acid Uric Acid Calcium Total Bilirubin AST ALT Alkaline Phosphatase Total Creatine Kinase Troponin I C-Reactive Protein NT-Pro-B Natriuret Pep Total Protein Albumin Procalcitonin TSH (Reflex) Free T4 Total T3 Urine Eosinophils None seen U Random Total Protein 137 Ur Random Sodium 8 Ur Random Urea 156 Urine Creatinine 225.7 Nasal MRSA (PCR) Complement C3 Complement C4 Hep Bs Antigen Hep Bs Antibody Influenza A (RT-PCR) Influenza B (RT-PCR) RSV (RT-PCR) SARS-CoV-2 RNA (RT-PCR) 06/05/24 06/05/24 06/05/24 00:03 01:36 02:31 WBC 12.6 H RBC 4.07 L Hgb 11.1 L Hct 36.0 L MCV 88.5 MCH 27.3 MCHC 30.8 L RDW 17.6 H Plt Count 367 MPV 10.0 Immature Gran % (Auto) 0.7 H Neut % (Auto) 73.7 H Lymph % (Auto) 11.0 L [place] % (Auto) 13.5 H Eos % (Auto) 0.6 Baso % (Auto) 0.5 Lymph # (Auto) 1.38 [place] # (Auto) 1.7 H Eos # (Auto) 0.1 Baso # (Auto) 0.1 Abs Immat Gran (auto) 0.09 H Absolute Neuts (auto) 9.3 H Absolute Nucleated RBC 0.000 Nucleated RBC % 0.0 ESR PT 20.3 H INR 1.7 APTT 41.1 H Puncture Site ABG pH ABG pCO2 ABG pO2 ABG PO2/FiO2 Ratio ABG HCO3 ABG O2 Saturation ABG O2 Content ABG Base Excess A-a Gradient Oxyhemoglobin Carboxyhemoglobin Methemoglobin Reduced Hemoglobin Total Hemoglobin O2 Delivery Device O2 Liters/Min Minute Volume Vent Rate Vent Mode FiO2 Expiratory Pressure Tidal Volume PEEP Inspiratory Pressure Peak Inspir Pressure Pressure Support Sodium 131 L Potassium 5.5 H Chloride 95 L Carbon Dioxide 25 Anion Gap 11 BUN 49 H Creatinine 4.40 H Estim Creat Clear Calc 23 Estimated GFR 10 L Glucose 124 H POC Capillary Glucose 131 H Lactic Acid 1.1 Uric Acid 8.8 H Calcium 10.0 Total Bilirubin 2.0 H AST 113 H ALT 48 H Alkaline Phosphatase 278 H Total Creatine Kinase 27 L Troponin I < 0.012 C-Reactive Protein NT-Pro-B Natriuret Pep 3570 H Total Protein 7.0 Albumin 3.7 Procalcitonin 0.4 TSH (Reflex) Free T4 Total T3 Urine Eosinophils U Random Total Protein Ur Random Sodium Ur Random Urea Urine Creatinine Nasal MRSA (PCR) Complement C3 Complement C4 Hep Bs Antigen Hep Bs Antibody Influenza A (RT-PCR) Negative Influenza B (RT-PCR) Negative RSV (RT-PCR) Negative SARS-CoV-2 RNA (RT-PCR) Negative 06/05/24 06/05/24 06/05/24 04:20 05:33 07:51 WBC RBC Hgb Hct MCV MCH MCHC RDW Plt Count MPV Immature Gran % (Auto) Neut % (Auto) Lymph % (Auto) [place] % (Auto) Eos % (Auto) Baso % (Auto) Lymph # (Auto) [place] # (Auto) Eos # (Auto) Baso # (Auto) Abs Immat Gran (auto) Absolute Neuts (auto) Absolute Nucleated RBC Nucleated RBC % ESR PT INR APTT Puncture Site Left radial ABG pH 7.278 L* ABG pCO2 67.9 H* ABG pO2 68.6 L ABG PO2/FiO2 Ratio 0.69 ABG HCO3 31.0 H ABG O2 Saturation 90.8 L ABG O2 Content 15.4 L ABG Base Excess 2.7 A-a Gradient 576.5 Oxyhemoglobin 91.6 Carboxyhemoglobin Methemoglobin Reduced Hemoglobin Total Hemoglobin 11.9 L O2 Delivery Device Non-invasive vent O2 Liters/Min Not Reportable Minute Volume Vent Rate 24 Vent Mode FiO2 100 Expiratory Pressure 8 Tidal Volume PEEP Inspiratory Pressure 16 Peak Inspir Pressure Pressure Support Sodium Potassium Chloride Carbon Dioxide Anion Gap BUN Creatinine Estim Creat Clear Calc Estimated GFR Glucose POC Capillary Glucose 141 H Lactic Acid Uric Acid Calcium Total Bilirubin AST ALT Alkaline Phosphatase Total Creatine Kinase Troponin I C-Reactive Protein NT-Pro-B Natriuret Pep Total Protein Albumin Procalcitonin TSH (Reflex) 11.400 H Free T4 1.28 Total T3 0.76 L Urine Eosinophils U Random Total Protein Ur Random Sodium Ur Random Urea Urine Creatinine Nasal MRSA (PCR) Not detected Complement C3 Complement C4 Hep Bs Antigen Negative Hep Bs Antibody Negative Influenza A (RT-PCR) Influenza B (RT-PCR) RSV (RT-PCR) SARS-CoV-2 RNA (RT-PCR) 06/05/24 06/05/24 06/05/24 08:22 10:41 11:28 WBC RBC Hgb Hct MCV MCH MCHC RDW Plt Count MPV Immature Gran % (Auto) Neut % (Auto) Lymph % (Auto) [place] % (Auto) Eos % (Auto) Baso % (Auto) Lymph # (Auto) [place] # (Auto) Eos # (Auto) Baso # (Auto) Abs Immat Gran (auto) Absolute Neuts (auto) Absolute Nucleated RBC Nucleated RBC % ESR 24 H PT INR APTT Puncture Site Right brachial ABG pH 7.276 L* ABG pCO2 57.1 H ABG pO2 52.6 L ABG PO2/FiO2 Ratio 0.53 ABG HCO3 26.0 ABG O2 Saturation 82.1 L* ABG O2 Content 14.0 L ABG Base Excess -1.6 A-a Gradient 603.3 Oxyhemoglobin 83.8 L* Carboxyhemoglobin 0.6 Methemoglobin 0.2 Reduced Hemoglobin 15.4 H Total Hemoglobin 11.9 L O2 Delivery Device Ventilator O2 Liters/Min Not Reportable Minute Volume Not Reportable Vent Rate 26 Vent Mode Cmv FiO2 100 Expiratory Pressure Tidal Volume 400 PEEP 10 Inspiratory Pressure Peak Inspir Pressure Not Reportable Pressure Support Not Reportable Sodium 132 L Potassium 5.2 H Chloride 96 L Carbon Dioxide 27 Anion Gap 9 BUN 53 H Creatinine 4.60 H Estim Creat Clear Calc 21 Estimated GFR 10 L Glucose 144 H POC Capillary Glucose Lactic Acid 3.3 H Uric Acid Calcium 9.9 Total Bilirubin AST ALT Alkaline Phosphatase Total Creatine Kinase Troponin I C-Reactive Protein 5.4 H NT-Pro-B Natriuret Pep Total Protein Albumin Procalcitonin TSH (Reflex) Free T4 Total T3 Urine Eosinophils U Random Total Protein Ur Random Sodium Ur Random Urea Urine Creatinine Nasal MRSA (PCR) Complement C3 152 Complement C4 29.9 Hep Bs Antigen Hep Bs Antibody Influenza A (RT-PCR) Influenza B (RT-PCR) RSV (RT-PCR) SARS-CoV-2 RNA (RT-PCR) 06/05/24 11:59 WBC RBC Hgb Hct MCV MCH MCHC RDW Plt Count MPV Immature Gran % (Auto) Neut % (Auto) Lymph % (Auto) [place] % (Auto) Eos % (Auto) Baso % (Auto) Lymph # (Auto) [place] # (Auto) Eos # (Auto) Baso # (Auto) Abs Immat Gran (auto) Absolute Neuts (auto) Absolute Nucleated RBC Nucleated RBC % ESR PT INR APTT Puncture Site ABG pH ABG pCO2 ABG pO2 ABG PO2/FiO2 Ratio ABG HCO3 ABG O2 Saturation ABG O2 Content ABG Base Excess A-a Gradient Oxyhemoglobin Carboxyhemoglobin Methemoglobin Reduced Hemoglobin Total Hemoglobin O2 Delivery Device O2 Liters/Min Minute Volume Vent Rate Vent Mode FiO2 Expiratory Pressure Tidal Volume PEEP Inspiratory Pressure Peak Inspir Pressure Pressure Support Sodium Potassium Chloride Carbon Dioxide Anion Gap BUN Creatinine Estim Creat Clear Calc Estimated GFR Glucose POC Capillary Glucose 158 H Lactic Acid Uric Acid Calcium Total Bilirubin AST ALT Alkaline Phosphatase Total Creatine Kinase Troponin I C-Reactive Protein NT-Pro-B Natriuret Pep Total Protein Albumin Procalcitonin TSH (Reflex) Free T4 Total T3 Urine Eosinophils U Random Total Protein Ur Random Sodium Ur Random Urea Urine Creatinine Nasal MRSA (PCR) Complement C3 Complement C4 Hep Bs Antigen Hep Bs Antibody Influenza A (RT-PCR) Influenza B (RT-PCR) RSV (RT-PCR) SARS-CoV-2 RNA (RT-PCR)
--- NOTE | 2024-06-05 14:16 | P.PCNBED_ITS ---
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
[2024-06-05 14:27] LABS: Alveolar/Arterial O2 Gradient 586.6 mmHg; Base Excess ABG 1.2 mEq/l (+/-2.0); Fractional Inspired Oxygen 100 %; Oxygen Content ABG 16.2 %vol (16.0-22.0); Oxygen Saturation ABG 95.2 % (95.0-100.0); Oxyhemoglobin 95.6 % THb (90.0-100.0); PCO2 ABG 47.9 mmHg (35.0-45.0); PO2 ABG 78.5 mmHg (80.0-100.0); PO2 FiO2 Ratio Arterial Blood 0.79 %; pH ABG 7.369 (7.350-7.450)
[2024-06-05 14:28] LABS: Device VENTILATOR; Site Drawn ARTLINE
[2024-06-05 14:29] LABS: Arterial Blood Gas PEEP 14 cmH2O; Arterial Blood Gas Vent Mode CMV; Arterial Blood Gas Ventilator rate 26 /MIN
[2024-06-05 14:30] LABS: Arterial Blood Gas Tidal Volume 400 ml
[2024-06-05 14:32] LABS: Reflex Lactic Acid Yes or No Add Lactic
[2024-06-05] MEDS: VASOPRESSIN INJ 100 UNITS in DEXTROSE 5% 95 ML IV CONT (14:32)
[2024-06-05] MEDS: SODIUM CHLORIDE 0.9% IV 1,000 ML 999 ML IV CONT (14:39)
[2024-06-05] MEDS: NOREPINEPHRINE 8 MG/D5W 250 ML 8 MG/250 ML BAG 56.25 MG IV CONT ×2 (15:05→19:39)
[2024-06-05 15:12] LABS: Lactic Acid 2.4 mmol/L (0.7-2.0)
[2024-06-05 15:19] LABS: Osmolality, Urine 312 mOsm/kg (50-1200)
[2024-06-05] MEDS: HYDROCORTISONE SODIUM SUCCINATE 100 MG/2 ML VIAL IV PUSH ×2 (15:21→21:57)
[2024-06-05 15:26] LABS: Vancomycin Random 14.9 ug/mL (10-20)
--- NOTE | 2024-06-05 15:32 | WPDPROCEDUR ---
Procedures Arterial Line Size (Gauge): 14 Hemodialysis Catheter Placement Right IJ: Discussed w/ patient and/or surrogate, the non-emergent placement of a hemodialysis catheter, including it's clinincal necessity/indication & associated potential risks & complications.: Yes The patient and/or surrogate understand(s) and acknowledge(s) the need to proceed with hemodialysis catheter insertion as an important element of the patient's clinical management.: Yes HD Catheter Date: 06/05/24 HD Catheter Time: 14:00 Pre-procedural Time-Out was completed immediately before starting the procedure and confirmed: Patient Identification, Site, Procedure, Patient Position and the Availability of Requisite Equipment.: Yes Patient Position: other (30 degrees) Patient Placed on Monitor/Pulse Ox: Yes Provider Prep: mask, sterile gown, sterile gloves, Max. sterile barrier precautions, cap and hand hygiene Hemodialysis Catheter Prep: Chlorhexidine scrub Local Anesthesia Used: lidocaine 1% Amount of anesthesia used (mL): 3 Hemodialysis Catheter Inserted: triple (Exchanged over guidewire) Maltese: 7 Length (cm): 16 Depth of Insertion (cm): 16 Post Procedure: sutured in place, good blood return, all ports aspirated, flushed, capped, transparent dressing, hemostatic product, antimicrobial product, securement product and aseptic technique maintained throughout procedure Post Procedure X-Ray: tip of catheter in good position Patient Tolerated Procedure: well Complications: none
--- NOTE | 2024-06-05 16:03 | PC.NURSE ---
Updated spouse, Chuy, via telephone on patient condition. Family tearful and crying, states he will bless everyone if we take great care of her
[2024-06-05] MEDS: ALBUMIN HUMAN 25% 12.5 GM/50ML 50 ML IVPB (16:58)
--- NOTE | 2024-06-05 17:39 | PC.NURSE ---
Updated spouse, Chuy, via telephone about patient's current condition.
[2024-06-05] MEDS: VANCOMYCIN 1,250 MG/NS 250 ML 1,250 MG/250 ML BAG 166.67 MG IVPB (18:08)
--- NOTE | 2024-06-05 18:25 | PC.NURSE ---
Dialysis completed, patient tolerated well. No s/s of distress noted. 3L removed per ecologist
[2024-06-05 18:47] LABS: Glucose Point of Care 196 mg/dl (65-105)
[2024-06-05 20:20] LABS: Alveolar/Arterial O2 Gradient 529.9 mmHg; Base Excess ABG -2.2 mEq/l (+/-2.0); Carboxyhemoglobin 0.3 % THb (0-2.0); Fractional Inspired Oxygen 100 %; HCO3 ABG 25.9 mEq/l (22.0-26.0); Methemoglobin ABG 0.3 %THb (0-1.5); Oxygen Content ABG 17.5 %vol (16.0-22.0); Oxygen Saturation ABG 97.8 % (95.0-100.0); Oxyhemoglobin 97.8 % THb (90.0-100.0); PCO2 ABG 60.1 mmHg (35.0-45.0); PO2 FiO2 Ratio Arterial Blood 1.23 %; Reduced Hemoglobin 1.6 %THb (0-5.0); Total Hemoglobin 12.6 g/dL (12.0-18.0)
[2024-06-05 20:23] LABS: Site Drawn ARTLINE; pH ABG 7.252 (7.350-7.450)
[2024-06-05 20:24] LABS: Arterial Blood Gas PEEP 14 cmH2O; Arterial Blood Gas Tidal Volume 400 ml; Arterial Blood Gas Vent Mode CMV; Arterial Blood Gas Ventilator rate 26 /MIN; Device VENTILATOR; Modified Allen's Test Pass
[2024-06-06] VITALS (103 sets, daily range): BP systolic 96–151; BP diastolic 37–89; PULSE 59–118; RESP 18–64; TEMP 36.4–37.7; O2SAT 95–100; BMI 64.1
[2024-06-06] MEDS: NOREPINEPHRINE 8 MG/D5W 250 ML 8 MG/250 ML BAG 56.25 MG IV CONT (00:05)
[2024-06-06 01:17] LABS: Glucose Point of Care 228 mg/dl (65-105)
[2024-06-06] MEDS: INSULIN ASPART (*BKC) 100 UNITS/ML SUB-Q ×2 (01:18→07:13)
[2024-06-06] MEDS: IPRATROPIUM 0.5 MG/ALBUTEROL SULFATE 2.5 MG AMPUL.NEB 3 ML INHALATION ×4 (02:08→20:43)
[2024-06-06] MEDS: NOREPINEPHRINE 8 MG/D5W 250 ML 8 MG/250 ML BAG 50.63 MG IV CONT (05:00)
[2024-06-06 05:38] LABS: Alveolar/Arterial O2 Gradient 413.9 mmHg; Base Excess ABG -1.4 mEq/l (+/-2.0); Carboxyhemoglobin 0.5 % THb (0-2.0); Fractional Inspired Oxygen 80 %; HCO3 ABG 26.7 mEq/l (22.0-26.0); Methemoglobin ABG 0.1 %THb (0-1.5); Oxygen Saturation ABG 95.8 % (95.0-100.0); Oxyhemoglobin 96.2 % THb (90.0-100.0); PO2 ABG 92.7 mmHg (80.0-100.0); PO2 FiO2 Ratio Arterial Blood 1.16 %; Reduced Hemoglobin 3.2 %THb (0-5.0); Total Hemoglobin 12.5 g/dL (12.0-18.0)
[2024-06-06 05:40] LABS: Device VENTILATOR; Modified Allen's Test Pass; PCO2 ABG 60.8 mmHg (35.0-45.0); Site Drawn ARTLINE
[2024-06-06 05:41] LABS: Arterial Blood Gas PEEP 14 cmH2O; Arterial Blood Gas Tidal Volume 400 ml; Arterial Blood Gas Vent Mode CMV; Arterial Blood Gas Ventilator rate 28 /MIN
[2024-06-06 05:44] LABS: Basophils Absolute Auto 0.1 K/mm3 (0.0-0.1); Basophils Percent Auto 0.4 % (0.2-1.2); Hemoglobin 11.8 g/dL (12.0-15.0); Immature Granulocyte Absolute 0.15 K/mm3 (0.00-0.031); Immature Granulocyte Percent A 0.9 % (0-0.5); Lymphocytes Absolute Auto 1.32 K/mm3 (0.9-3.2); Lymphocytes Percent Auto 7.9 % (18.3-44.2); Mean Corpuscular HGB Conc 31.1 g/dl (32-36); Mean Corpuscular Hemoglobin 27.2 pg (26-34); Mean Corpuscular Volume 87.6 fl (80-100); Mean Platelet Volume 9.6 fl (7.4-10.4); Monocytes Absolute Auto 1.1 K/mm3 (0.1-0.6); Monocytes Percent Auto 6.3 % (2.6-8.5); Neutrophils Absolute Auto 14.2 K/mm3 (1.3-6.7); Neutrophils Percent Auto 84.5 % (45.5-73.1); Platelet Count Result 477 k/mm3 (150-375); Red Blood Count 4.34 M/mm3 (4.2-5.4); Red Cell Distribution Width 17.4 % (11.5-14.5); White Blood Count 16.8 K/mm3 (4.5-10.0)
[2024-06-06 05:56] LABS: Lactic Acid Reflex 1.3 mmol/L (0.7-2.0)
[2024-06-06 05:59] LABS: Alanine Aminotransferase 47 U/L (6-35); Albumin Level 3.6 g/dL (3.5-5.1); Alkaline Phosphatase 235 U/L (38-126); Anion Gap 10 mmol/L (4-12); Aspartate Amino Transferase 92 U/L (14-36); Bilirubin,Total 2.4 mg/dL (0.2-1.3); Blood Urea Nitrogen 49 mg/dL (7-17); Calcium 9.8 mg/dL (8.4-10.2); Carbon Dioxide 25 mmol/L (22-30); Chloride 95 mmol/L (98-107); Creatine Kinase 128 U/L (30-135); Estimated CRCL calculation 22 ml/min; Estimated Glomerular Filt Rate 10; Glucose 206 mg/dL (65-110); Lipase 70 U/L (23-300); Magnesium 2.4 mg/dL (1.6-2.3); Phosphorus 5.7 mg/dL (2.5-4.5); Potassium 5.4 mmol/L (3.4-5.0); Sodium 130 mmol/L (137-145)
[2024-06-06 06:07] LABS: INR 1.9; Prothrombin Time 22.4 Seconds (11.1-14.7)
[2024-06-06 06:08] LABS: Partial Thromboplastin Time 44.9 Seconds (22.3-36.8)
[2024-06-06 06:18] LABS: Vancomycin Random 19.8 ug/mL (10-20)
[2024-06-06] MEDS: HYDROCORTISONE SODIUM SUCCINATE 100 MG/2 ML VIAL IV PUSH ×3 (07:12→21:41)
[2024-06-06] MEDS: CENTRAL LINE FLUSH 10 ML IV PUSH ×3 (07:13→20:24)
[2024-06-06] MEDS: ALBUTEROL SULFATE NEB 2.5 MG/3 ML INH 15 MG INHALATION (08:02)
--- NOTE | 2024-06-06 08:45 | P.PNNP_ITS ---
Progress Note: A&P Assessment and Plan (1) JOVI (acute kidney injury): Code(s): N17.9 - Acute kidney failure, unspecified Status: Acute Assessment and Plan: * normal creatinine ~ 1 month ago * admitted with a creatinine of 2.1mg/dl with ongoing worsening noted * etiology not clear but several possibilities: * hemodynamic instability/shock * early sepsis * infection (UTI +/- pneumonia) -- although culture negative to date * hypoxia * SLE flare (?) * other? * evaluation to date noted: * renal ultrasound negative for obstruction * urine eosinophils negative * urine electrolytes pre-renal (in spite of evidence of volume overload) * CPK low * moderate proteinuria (~ 600mg) * UA with blood and protein (and negative urine culture) * complements normal (arguing against lupus flare) * initiated on dialysis yesterday due to worsening respiratory status and volume overload * HD yesterday * HD today * follow repeat labs and UOP for potential renal recovery (2) Acute respiratory failure: Code(s): J96.00 - Acute respiratory failure, unspecified whether with hypoxia or hypercapnia Status: Acute Assessment and Plan: * intubated on 06/05: * failed BiPAP therapy * impending respiratory failure (given hypoxia + hypercapnea) * suspect secondary to pulmonary edema, pneumonia, and possible early ARDS * remains on ventilator support * on bronchodilators and steroids * fluid removal with dialysis * follow respiratory status (3) Septic shock: Code(s): A41.9 - Sepsis, unspecified organism; R65.21 - Severe sepsis with septic shock Status: Acute Assessment and Plan: * possible related to pneumonia versus UTI * initiated on vasopressor therapy * follow culture data * on antibiotics * stress dose steroids * follow trend of hemodynamics (4) Pulmonary edema: Code(s): J81.1 - Chronic pulmonary edema Status: Acute Assessment and Plan: * contributing to #2 * secondary to JOVI/ARF but ARDS possibly playing a role * Pulmonary edema likely related to acute kidney injury, ARDS * fluid removal with dialysis as tolerated (5) SLE (systemic lupus erythematosus): Code(s): M32.9 - Systemic lupus erythematosus, unspecified Status: Acute Assessment and Plan: * ? SLE flare * getting stress dose steroids * seems less likely based on evidence to date (6) UTI (urinary tract infection): Code(s): N39.0 - Urinary tract infection, site not specified Status: Ruled-out Assessment and Plan: * admission UA highly suggestive * follow-up on culture data - urine culture negative * on antibiotics (7) Type 2 diabetes mellitus: Code(s): E11.9 - Type 2 diabetes mellitus without complications Status: Acute Assessment and Plan: * follow accu-cheks * glycemic control per senior java web application developer/hospitalist Will continue to follow. Subjective Date/time seen: 06/06/24 08:45 Interval history: Follow-up for acute kidney injury/acute renal failure. Tolerated dialysis yesterday afternoon with ~ 3L fluid removal; tolerating dialysis at the time of my visit (seen at 8:35AM); remains intubated/sedated and on mechanical ventilation; minimal urine output noted; remains on vasopressor support. Exam Narrative: General: large female intubated/sedated on mechanical ventilator Heart: normal S1 and S2; no rub Lungs: coarse with some scattered crackles Abdomen: obese but soft, nontender, nondistended, positive bowel sounds Extremities: no cyanosis or clubbing; 2 - 3+ edema Skin: warm and intact Objective Data Vital Signs Vital Signs: Vital Signs Temp Pulse Resp BP Pulse Ox O2 Del Method FiO2 06/06/24 08:45 62 115/48 L 06/06/24 08:30 60 116/49 L 06/06/24 08:55 63 28 H 06/06/24 08:23 60 113/48 L 06/06/24 08:23 80 06/06/24 08:08 97.6 F 60 28 H 112/47 L 96 06/06/24 08:03 60 28 H 06/06/24 07:49 60 95 Mechanical Ventilation 80 06/06/24 07:42 60 26 H 06/06/24 06:30 60 117/55 L 06/06/24 05:00 60 100/39 L 06/06/24 05:00 60 100/39 L 06/06/24 04:00 61 118/52 L 06/06/24 02:11 60 107/44 L 06/06/24 03:00 60 06/06/24 06:00 60 06/06/24 06:00 60 28 H 06/06/24 06:00 60 28 H 06/06/24 04:00 62 06/06/24 04:00 62 28 H 06/06/24 04:00 60 28 H 06/06/24 02:00 62 28 H 06/06/24 02:00 60 28 H 06/06/24 02:00 60 06/06/24 06:00 60 28 H 100/39 L 96 06/06/24 06:00 61 06/06/24 05:09 61 96 Mechanical Ventilation 80 06/06/24 04:45 61 28 H 96 06/06/24 04:31 61 28 H 96 06/06/24 04:30 61 28 H 122/56 L 96 06/06/24 04:15 61 28 H 95 06/06/24 04:01 61 28 H 96 06/06/24 04:00 98.9 F 61 28 H 118/52 L 96 06/06/24 03:45 60 28 H 98 06/06/24 03:31 61 28 H 98 06/06/24 03:30 60 28 H 111/51 L 98 06/06/24 03:15 60 28 H 97 06/06/24 03:01 60 28 H 96 06/06/24 03:00 60 28 H 111/50 L 96 06/06/24 02:56 60 28 H 109/47 L 96 06/06/24 02:31 60 28 H 99 06/06/24 02:30 60 28 H 126/57 L 100 06/06/24 02:15 60 28 H 99 06/06/24 02:01 60 28 H 98 06/06/24 02:00 60 28 H 127/56 L 98 06/06/24 01:45 60 28 H 98 06/06/24 01:31 60 28 H 97 06/06/24 01:30 60 28 H 125/57 L 97 06/06/24 01:15 60 28 H 98 06/06/24 01:01 61 28 H 98 06/06/24 01:00 60 28 H 128/58 L 98 06/06/24 00:45 60 28 H 98 06/06/24 00:31 60 28 H 98 06/06/24 00:30 60 28 H 126/57 L 98 06/06/24 00:15 60 28 H 98 06/06/24 00:01 60 98 06/06/24 00:00 98.7 F 60 28 H 124/56 L 98 06/05/24 23:45 60 99 06/05/24 23:31 60 28 H 99 06/05/24 23:30 60 28 H 123/55 L 99 06/05/24 23:15 60 28 H 98 06/06/24 04:00 61 06/06/24 02:00 60 06/06/24 00:00 60 06/05/24 22:00 62 06/05/24 20:00 67 06/06/24 03:58 80 06/06/24 00:00 80 06/06/24 03:58 60 28 H 98 Mechanical Ventilation 80 06/06/24 00:00 60 28 H 98 Mechanical Ventilation 80 06/06/24 02:15 60 28 H 06/06/24 02:08 60 28 H 06/06/24 02:08 60 98 Mechanical Ventilation 80 06/05/24 22:00 62 102/41 L 06/06/24 00:05 60 26 H 06/06/24 00:05 60 28 H 06/06/24 00:05 60 06/05/24 22:00 62 28 H 06/05/24 22:00 62 28 H 06/05/24 22:00 62 06/06/24 00:05 60 105/44 L 06/06/24 00:05 60 105/44 L 06/05/24 23:30 60 98 Mechanical Ventilation 80 06/05/24 23:01 60 28 H 99 06/05/24 23:00 60 28 H 121/52 L 99 06/05/24 22:30 61 28 H 118/54 L 99 06/05/24 22:01 62 18 100 06/05/24 22:00 62 28 H 117/54 L 99 06/05/24 21:30 62 28 H 118/51 L 98 06/05/24 21:01 62 28 H 98 06/05/24 21:00 62 28 H 117/51 L 98 06/05/24 20:30 63 28 H 120/53 L 97 06/05/24 20:01 99 F 67 27 H 118/55 L 96 06/05/24 20:00 67 27 H 96 06/05/24 19:37 66 26 H 118/53 L 97 06/05/24 19:30 66 27 H 122/56 L 96 06/05/24 19:01 68 27 H 95 06/05/24 19:00 68 27 H 120/63 95 06/05/24 18:59 68 28 H 95 06/05/24 21:52 62 06/05/24 21:52 62 06/05/24 20:00 67 26 H 06/05/24 20:00 68 26 H 06/05/24 20:00 67 06/05/24 20:00 67 100/40 L 06/05/24 20:57 66 97 Mechanical Ventilation 80 06/05/24 20:26 63 26 H 06/05/24 20:00 100 06/05/24 20:00 66 26 H 94 Mechanical Ventilation 100 06/05/24 20:16 66 26 H 06/05/24 20:16 66 97 Mechanical Ventilation 100 06/05/24 19:39 66 101/42 L 06/05/24 19:39 66 101/42 L 06/05/24 17:58 98.5 F 68 26 H 113/47 L 06/05/24 17:50 66 104/44 L 06/05/24 17:45 66 102/44 L 06/05/24 17:30 61 106/43 L 06/05/24 17:22 115 H 94 Mechanical Ventilation 100 06/05/24 17:15 60 105/43 L 06/05/24 17:00 60 102/42 L 06/05/24 16:45 60 112/47 L 06/05/24 16:30 60 105/43 L 06/05/24 18:00 68 26 H 112/47 L 94 06/05/24 18:00 68 06/05/24 18:00 68 27 H 06/05/24 18:00 68 26 H 06/05/24 18:00 68 113/47 L 06/05/24 18:00 68 113/47 L 06/05/24 16:00 61 27 H 06/05/24 16:00 61 27 H 06/05/24 16:00 61 110/45 L 06/05/24 16:00 61 110/45 L 06/05/24 16:00 60 27 H 96 Mechanical Ventilation 100 06/05/24 16:00 100 06/05/24 16:00 98.6 F 61 27 H 110/45 L 96 06/05/24 16:00 60 06/05/24 16:15 60 109/45 L 06/05/24 16:00 61 110/45 L 06/05/24 15:45 61 113/46 L 06/05/24 15:30 61 117/48 L 06/05/24 15:15 61 115/47 L 06/05/24 14:00 61 26 H 06/05/24 14:00 61 26 H 06/05/24 15:10 61 103/41 L 06/05/24 15:05 61 104/41 L 06/05/24 15:05 61 104/41 L 06/05/24 14:00 61 26 H 107/49 L 93 06/05/24 14:00 61 06/05/24 15:00 60 105/41 L 06/05/24 14:50 60 102/37 L 06/05/24 14:39 61 24 H 112/45 L 06/05/24 14:39 100 06/05/24 14:34 72 26 H 06/05/24 14:16 60 94 Mechanical Ventilation 100 06/05/24 14:15 60 26 H 06/05/24 11:28 62 20 06/05/24 11:19 62 26 H 06/05/24 11:09 62 91 Mechanical Ventilation 100 06/05/24 14:30 60 93/37 L 06/05/24 14:15 60 96/45 L 06/05/24 14:00 62 107/53 L 06/05/24 13:30 62 106/49 L 06/05/24 14:32 61 93/36 L 06/05/24 12:00 60 26 H 94 Mechanical Ventilation 100 06/05/24 13:15 61 93/48 L 06/05/24 12:00 61 06/05/24 12:06 61 103/49 L 06/05/24 12:00 61 26 H 06/05/24 12:00 61 26 H 06/05/24 12:00 98.1 F 61 26 H 103/49 L 94 06/05/24 11:53 61 06/05/24 10:45 62 107/51 L 06/05/24 10:30 63 107/51 L 06/05/24 10:00 66 26 H 101/48 L 90 06/05/24 10:00 66 26 H 06/05/24 10:00 66 26 H 06/05/24 10:00 66 101/48 L 06/05/24 10:00 66 06/05/24 09:49 64 Intake/Output Intake/Output: Intake & Output 06/03/24 06/04/24 06/05/24 06/06/24 23:59 23:59 23:59 23:59 Intake Total 1490 1630 1802.2 518.3 Output Total 872 349 6971 150 Balance 890 1230 -1327.8 368.3 Meds/Results Medications: Active Medications Generic Name Dose Route Start Last Admin Trade Name Freq PRN Reason Stop Dose Admin Albuterol/Ipratropium 3 ml 06/05/24 11:15 06/06/24 07:41 Ipratropium 0.5 Mg/Albuterol Sulfate 2.5 Mg Ampul.Neb 3 Ml INHALATION 3 ml Q6HRT JOHN Administration Amiodarone HCl 200 mg 06/02/24 21:00 06/06/24 09:10 Amiodarone Hcl 200 Mg Tablet PO 200 mg Q12HR JOHN Administration Apixaban 5 mg 06/06/24 09:30 Apixaban 5 Mg Tablet PO Q12HR JOHN Dextrose 12.5 gm 06/05/24 11:46 Dextrose 50% 25 Gm/50 Ml Syringe IV PUSH PRN PRN Hypoglycemia Protocol Flecainide Acetate 100 mg 06/02/24 21:00 06/06/24 09:09 Flecainide Acetate 100 Mg Tablet PO 100 mg Q12HR JOHN Administration Gabapentin 200 mg 06/02/24 22:00 06/04/24 21:07 Gabapentin 100 Mg Capsule PO 200 mg Q8HR JOHN Administration Glucagon 1 mg 06/05/24 11:46 Glucagon For Inj 1 Mg Vial IM PRN PRN Hypoglycemia Protocol Glucose 15 gm 06/05/24 11:46 Glucose Oral Gel 15 Gm Of Glucse In 37.5 Gm Tube PO PRN PRN Hypoglycemia Protocol Hydrocortisone Sodium Succinate 100 mg 06/05/24 14:00 06/06/24 07:12 Hydrocortisone Sodium Succinate 100 Mg/2 Ml Vial IV PUSH 100 mg Q8HR JOHN Administration Norepinephrine Bitartrate 8 mg in 250 mls @ 48.75 mls/hr 06/05/24 00:35 06/06/24 06:30 Levophed 8 Mg/D5w 250 Ml IV CONT 26 mcg/min .Q5H8M JOHN 48.75 mls/hr Titration Protocol 26 MCG/MIN Fentanyl Citrate 2,500 mcg in 250 mls @ 5 mls/hr 06/05/24 08:35 06/06/24 06:00 Fentanyl 2,500 Mcg/Ns 250 Ml IV CONT 50 mcg/hr .Q50H JOHN 5 mls/hr Titration Protocol 50 MCG/HR Midazolam HCl 100 mg in 100 mls @ 2 mls/hr 06/05/24 08:35 06/06/24 06:00 Versed 100 Mg/Ns 100 Ml IV CONT 2 mg/hr .Q50H JOHN 2 mls/hr Titration Protocol 2 MG/HR Dextrose 1,000 mls @ 100 mls/hr 06/05/24 11:46 Dextrose 5% 1,000 Ml IVPB PRN PRN Hypoglycemia Protocol Albumin Human 50 mls @ 999 mls/hr 06/05/24 12:43 06/05/24 17:08 Albutein IVPB 07/05/24 12:42 Infused Q10M PRN Infusion HYPOTENSION Cefepime HCl 2 gm in 50 mls @ 100 mls/hr 06/05/24 18:00 06/05/24 18:50 Maxipime 2 Gm/Ns 50 Ml IVPB Infused Q24H JOHN Infusion Vasopressin 100 units/ 100 mls @ 1.8 mls/hr 06/05/24 14:20 06/06/24 06:00 Dextrose IV CONT 0.03 units/min .[id number] JOHN 2 mls/hr Titration Protocol 0.03 UNITS/MIN Insulin Aspart 3 - 6 units 06/05/24 12:00 06/06/24 07:13 Insulin Aspart (*Bkc) 100 Units/Ml SUB-Q 3 units Q6HR JOHN Administration Protocol Midodrine 10 mg 06/05/24 09:00 06/06/24 09:09 Midodrine Hcl 10 Mg Tablet PO 10 mg TID JOHN Administration Multi-Ingred Cream/Lotion/Oil/Oint 1 applic 06/05/24 09:00 06/06/24 09:10 Mineral Oil/White Petrolatum Ointment EACH EYE 1 applic Q12HR JOHN Administration Pantoprazole Sodium 40 mg 06/06/24 09:00 06/06/24 09:09 Pantoprazole Sodium Iv 40 Mg Vial IV PUSH 40 mg Q12HR JOHN Administration Fluticasone/Salmeterol 2 puff 06/03/24 08:00 06/06/24 07:41 Fluticasone/Salmeterol 115-21 Mcg Inhaler 1 Puff INHALATION Not Given Q12HRT JOHN Sodium Chloride 10 ml 06/05/24 06:00 06/06/24 07:13 Central Line Flush IV PUSH 10 ml Q8HR JOHN Administration Sodium Chloride 20 ml 06/05/24 03:12 Central Line Flush IV PUSH PRN PRN after blood draws Umeclidinium [place] 1 puff 06/03/24 08:00 06/06/24 07:41 Umeclidinium [place] 62.5 Mcg Ellipta INHALATION Not Given DAILYRT JOHN Vancomycin HCl 1 each 06/05/24 13:14 Vancomycin For Hemodialysis IVPB PRN PRN Vancomycin Protocol Radiology Results: ITS Impressions Renal Ultrasound 06/04/24 15:06 IMPRESSION: 1. Normal kidneys. No hydronephrosis. Chest/Abdomen/Pelvis CT 06/04/24 19:12 IMPRESSION: 1. Diffuse lung disease, consistent with pulmonary edema versus pneumonia. 2. Moderate volume of ascites. Abdomen X-Ray 06/05/24 09:37 IMPRESSION: 1. Lines and tubes all in expected positions. 2. Diffuse patchy bilateral lung disease which could represent pulmonary edema and/or pneumonia. 3. Cardiomegaly. Chest X-Ray 06/06/24 05:52 Impression: Stable extensive bilateral pulmonary consolidation. Correlate for pulmonary edema, infection, or ARDS. Support tubes, as above. Labs Labs: Laboratory Tests 06/06/24 05:33 06/06/24 05:33 Lactic Acid 1.3 Calcium 9.8 Phosphorus 5.7 H Magnesium 2.4 H Total Bilirubin 2.4 H AST 92 H ALT 47 H Alkaline Phosphatase 235 H Total Creatine Kinase 128 C-Reactive Protein 9.0 H Total Protein 7.0 Albumin 3.6 Lipase 70 Random Vancomycin 19.8
[2024-06-06] MEDS: FLECAINIDE ACETATE 100 MG TABLET PO ×2 (09:09→20:23)
[2024-06-06] MEDS: PANTOPRAZOLE SODIUM IV 40 MG VIAL IV PUSH ×2 (09:09→20:23)
[2024-06-06] MEDS: MIDODRINE HCL 10 MG TABLET PO ×3 (09:09→16:20)
[2024-06-06] MEDS: AMIODARONE HCL 200 MG TABLET PO ×2 (09:10→20:23)
[2024-06-06] MEDS: MINERAL OIL/WHITE PETROLATUM OINTMENT 1 APPLIC EACH EYE ×2 (09:10→20:24)
--- NOTE | 2024-06-06 09:16 | P.PNINT_ITS ---
Progress Note: A&P Assessment and Plan (1) Acute respiratory failure: Code(s): J96.00 - Acute respiratory failure, unspecified whether with hypoxia or hypercapnia Status: Acute Assessment and Plan: Patient with increasing oxygen requirements in the last 24 hours, brought to the ICU after midnight on 06/05/2024, chest x-ray showed bilateral diffuse pulmonary infiltrates/pulmonary edema. Patient was placed on BiPAP. ABG showed hypercapnic and hypoxemic respiratory failure -etiology likely related to pulmonary edema, pneumonia, ARDS -06/05: patient intubated for impending respiratory failure. Intubation was slightly challenging secondary to body habitus, small mouth, large tongue, redundant tissue in the hypopharynx and anterior vocal cords requiring cricoid pressure and use of glide scope. -patient placed on CMV mode of ventilation, peep of 14, 80% FiO2 -chest x-ray and ABGs reviewed -continue bronchodilators -continue steroids for pneumonia - fentanyl and Versed infusion for analgosedation, will maintain RASS of -2 -daily SBT and SAT (2) Septic shock: Code(s): A41.9 - Sepsis, unspecified organism; R65.21 - Severe sepsis with septic shock Status: Acute Assessment and Plan: Septic shock could be related to UTI, pneumonia -patient was hypotensive in the intermediate Unit and was transferred to the ICU which she received fluids, albumin -continue vasopressin and norepinephrine, will maintain MAP > 65 mmHg or SBP > 100 mmHg adequate end organ perfusion -patient is on vancomycin and cefepime -fluconazole was discontinued given her renal dysfunction -stress dose steroids have been started -lactic acid has normalized (3) JOVI (acute kidney injury): Code(s): N17.9 - Acute kidney failure, unspecified Status: Acute Assessment and Plan: Patient with acute kidney injury, this morning her creatinine is 4.60 (creatinine on admission on 06/02/2024 was 2.10 and her creatinine on 04/26/2024 was 0.90) -etiology for acute kidney injury could be multifactorial, hypotension, shock, sepsis, UTI/pneumonia, hypoxia,? SLE flare, CHF, -CK levels are within normal limits -urine eosinophils were negative -urine electrolytes showed prerenal picture, patient seems to be volume overloaded -was given IV fluids and albumin overnight, will hold fluids for now -discussed with integration consultant at [facility], feels that the patient is unstable to be transferred at this time for CRRT, recommended conventional dialysis. -discussed with remediation technician at [facility], agrees to conventional dialysis at this time -06/05: dialysis catheter was placed in the right IJ and exchange for the central line -06/05: Initiate dialysis, with 3000 mL of fluid removal -appreciate nephrology following, will dialyze again today with fluid removal as chest x-ray showed improvement (4) Pulmonary edema: Code(s): J81.1 - Chronic pulmonary edema Status: Acute Assessment and Plan: Pulmonary edema likely related to acute kidney injury, ARDS, -did not respond to Bumex -continue fluid removal with dialysis (5) Type 2 diabetes mellitus: Code(s): E11.9 - Type 2 diabetes mellitus without complications Status: Acute Assessment and Plan: SSI and accucheks HbA1C is 5.7 this admission (6) Afib: Code(s): I48.91 - Unspecified atrial fibrillation Status: Acute Assessment and Plan: continue amiodarone (7) SLE (systemic lupus erythematosus): Code(s): M32.9 - Systemic lupus erythematosus, unspecified Status: Acute Assessment and Plan: ? SLE flare Continue stress dose steroids (8) Liver cirrhosis secondary to HOFFMANN: Code(s): K75.81 - Nonalcoholic steatohepatitis (HOFFMANN); K74.60 - Unspecified cirrhosis of liver Status: Acute Assessment and Plan: Mild elevation in LFTs, which are improving -continue to monitor (9) GERD (gastroesophageal reflux disease): Code(s): K21.9 - Gastro-esophageal reflux disease without esophagitis Status: Acute Assessment and Plan: Continue Protonix (10) Morbid obesity with BMI of 50.0-59.9, adult: Code(s): E66.01 - Morbid (severe) obesity due to excess calories; Z68.43 - Body mass index [BMI] 50.0-59.9, adult Status: Acute Assessment and Plan: Once extubated she will need lifestyle changes Plan DVT prophylaxis: Eliquis Stress ulcer prophylaxis: Protonix Nutrition: NPO Code Status: Full code Critical Care Time Spent: 36 minutes 06/05: Discussed with JAMES Blunt, patient's sister in the conference room updated with patient's condition and plan of care. The JAMES is aware that patient is significantly ill and at condition is guarded. I also explained to her that we initiated transfer to [facility] but given her increased ventilatory support, the integration consultant at [facility] recommended starting conventional dialysis over [facility]. I answered all her questions. Discussed with patient's sister JAMES Blunt, on the phone and updated with patient's condition and plan of care. I answered all questions Due to a high probability of clinically significant, life threatening deterioration, the patient required my highest level of preparedness to intervene emergently and I personally spent this critical care time directly and personally managing the patient. This critical care time included obtaining a history; examining the patient; pulse oximetry; ordering and review of studies; arranging urgent treatment with development of a management plan; evaluation of patient's response to treatment; frequent reassessment; and discussions with other providers. It was exclusive of separately billable procedures and treating other patients and teaching time. Please see Assessment and Plan section and the rest of the note for further information on patient assessment and treatment This dictation may have been done utilizing a voice recognition system. Attempts have been made to correct errors. However, there may be uncorrected grammatical, spelling, and recognitions errors present. Subjective Date/time seen: 06/06/24 09:16 Interval history: Reason for consult: Acute respiratory failure, septic shock, acute kidney injury, pulmonary edema 06/05: Intubated 06/06/2024: Patient seen and examined the ICU, remains intubated on CMV mode of ventilation, peep of 14, 80% FiO2. Sedated with fentanyl and Versed infusions, patient does not open eyes or follow simple commands. Dialysis was started on 06/05 with 3000 mL in fluid removal. Patient is afebrile, only had 150 mL of urine overnight. White count is elevated, potassium is 5.4, lactic acid 1.3, LFTs trending down Review of Systems Review of Systems: ROS unobtainable: Yes unobtainable due to endotracheal tube, unobtainable due to medical condition and unobtainable due to mental status Exam Narrative: General: Morbidly obese female currently intubated and sedated in no acute distress HEENT:? Pupils equal and reactive bilaterally, sclera is clear, ETT in place Neck:, short and thick neck, Respiratory:? Decreased and coarse breath sounds bilaterally, no wheezing, Cardiac:? S1-S2 is normal, regular rate and rhythm Abdomen:? Morbid obesity, soft, hypoactive bowel sounds Extremities:? Bilateral lower extremity pitting edema up to the thighs, decreased pedal pulses Neuro:? Patient is intubated, sedated, does not open her eyes or follow simple commands at this time. Skin:? Erythema in the intertriginous region and under her pannus Psych:? Unable to assess at this time Objective Data Vital Signs Vital Signs: Vital Signs - 24 hr 06/05/24 09:27 06/05/24 09:28 06/05/24 09:49 Temperature Pulse Rate 72 72 64 Respiratory Rate 26 H 26 H Blood Pressure Pulse Oximetry Oxygen Delivery Fraction of Inspired Oxygen 06/05/24 10:00 06/05/24 09:30 06/05/24 10:00 Temperature Pulse Rate 66 65 66 Respiratory Rate Blood Pressure 103/50 L 101/48 L Pulse Oximetry Oxygen Delivery Fraction of Inspired Oxygen 06/05/24 10:00 06/05/24 10:00 06/05/24 10:00 Temperature Pulse Rate 66 66 66 Respiratory Rate 26 H 26 H 26 H Blood Pressure 101/48 L Pulse Oximetry 90 Oxygen Delivery Fraction of Inspired Oxygen 06/05/24 10:30 06/05/24 10:45 06/05/24 11:53 Temperature Pulse Rate 63 62 61 Respiratory Rate Blood Pressure 107/51 L 107/51 L Pulse Oximetry Oxygen Delivery Fraction of Inspired Oxygen 06/05/24 12:00 06/05/24 12:00 06/05/24 12:00 Temperature 98.1 F Pulse Rate 61 61 61 Respiratory Rate 26 H 26 H 26 H Blood Pressure 103/49 L Pulse Oximetry 94 Oxygen Delivery Fraction of Inspired Oxygen 06/05/24 12:06 06/05/24 12:00 06/05/24 13:15 Temperature Pulse Rate 61 61 61 Respiratory Rate Blood Pressure 103/49 L 93/48 L Pulse Oximetry Oxygen Delivery Fraction of Inspired Oxygen 06/05/24 12:00 06/05/24 14:32 06/05/24 13:30 Temperature Pulse Rate 60 61 62 Respiratory Rate 26 H Blood Pressure 93/36 L 106/49 L Pulse Oximetry 94 Oxygen Delivery Mechanical Ventilation Fraction of Inspired Oxygen 100 06/05/24 14:00 06/05/24 14:15 06/05/24 14:30 Temperature Pulse Rate 62 60 60 Respiratory Rate Blood Pressure 107/53 L 96/45 L 93/37 L Pulse Oximetry Oxygen Delivery Fraction of Inspired Oxygen 06/05/24 11:09 06/05/24 11:19 06/05/24 11:28 Temperature Pulse Rate 62 62 62 Respiratory Rate 26 H 20 Blood Pressure Pulse Oximetry 91 Oxygen Delivery Mechanical Ventilation Fraction of Inspired Oxygen 100 06/05/24 14:15 06/05/24 14:16 06/05/24 14:34 Temperature Pulse Rate 60 60 72 Respiratory Rate 26 H 26 H Blood Pressure Pulse Oximetry 94 Oxygen Delivery Mechanical Ventilation Fraction of Inspired Oxygen 100 06/05/24 14:39 06/05/24 14:39 06/05/24 14:50 Temperature Pulse Rate 61 60 Respiratory Rate 24 H Blood Pressure 112/45 L 102/37 L Pulse Oximetry Oxygen Delivery Fraction of Inspired Oxygen 100 06/05/24 15:00 06/05/24 14:00 06/05/24 14:00 Temperature Pulse Rate 60 61 61 Respiratory Rate 26 H Blood Pressure 105/41 L 107/49 L Pulse Oximetry 93 Oxygen Delivery Fraction of Inspired Oxygen 06/05/24 15:05 06/05/24 15:05 06/05/24 15:10 Temperature Pulse Rate 61 61 61 Respiratory Rate Blood Pressure 104/41 L 104/41 L 103/41 L Pulse Oximetry Oxygen Delivery Fraction of Inspired Oxygen 06/05/24 14:00 06/05/24 14:00 06/05/24 15:15 Temperature Pulse Rate 61 61 61 Respiratory Rate 26 H 26 H Blood Pressure 115/47 L Pulse Oximetry Oxygen Delivery Fraction of Inspired Oxygen 06/05/24 15:30 06/05/24 15:45 06/05/24 16:00 Temperature Pulse Rate 61 61 61 Respiratory Rate Blood Pressure 117/48 L 113/46 L 110/45 L Pulse Oximetry Oxygen Delivery Fraction of Inspired Oxygen 06/05/24 16:15 06/05/24 16:00 06/05/24 16:00 Temperature 98.6 F Pulse Rate 60 60 61 Respiratory Rate 27 H Blood Pressure 109/45 L 110/45 L Pulse Oximetry 96 Oxygen Delivery Fraction of Inspired Oxygen 06/05/24 16:00 06/05/24 16:00 06/05/24 16:00 Temperature Pulse Rate 60 61 Respiratory Rate 27 H Blood Pressure 110/45 L Pulse Oximetry 96 Oxygen Delivery Mechanical Ventilation Fraction of Inspired Oxygen 100 100 06/05/24 16:00 06/05/24 16:00 06/05/24 16:00 Temperature Pulse Rate 61 61 61 Respiratory Rate 27 H 27 H Blood Pressure 110/45 L Pulse Oximetry Oxygen Delivery Fraction of Inspired Oxygen 06/05/24 18:00 06/05/24 18:00 06/05/24 18:00 Temperature Pulse Rate 68 68 68 Respiratory Rate 26 H Blood Pressure 113/47 L 113/47 L Pulse Oximetry Oxygen Delivery Fraction of Inspired Oxygen 06/05/24 18:00 06/05/24 18:00 06/05/24 18:00 Temperature Pulse Rate 68 68 68 Respiratory Rate 27 H 26 H Blood Pressure 112/47 L Pulse Oximetry 94 Oxygen Delivery Fraction of Inspired Oxygen 06/05/24 16:30 06/05/24 16:45 06/05/24 17:00 Temperature Pulse Rate 60 60 60 Respiratory Rate Blood Pressure 105/43 L 112/47 L 102/42 L Pulse Oximetry Oxygen Delivery Fraction of Inspired Oxygen 06/05/24 17:15 06/05/24 17:22 06/05/24 17:30 Temperature Pulse Rate 60 115 H 61 Respiratory Rate Blood Pressure 105/43 L 106/43 L Pulse Oximetry 94 Oxygen Delivery Mechanical Ventilation Fraction of Inspired Oxygen 100 06/05/24 17:45 06/05/24 17:50 06/05/24 17:58 Temperature 98.5 F Pulse Rate 66 66 68 Respiratory Rate 26 H Blood Pressure 102/44 L 104/44 L 113/47 L Pulse Oximetry Oxygen Delivery Fraction of Inspired Oxygen 06/05/24 19:39 06/05/24 19:39 06/05/24 20:16 Temperature Pulse Rate 66 66 66 Respiratory Rate Blood Pressure 101/42 L 101/42 L Pulse Oximetry 97 Oxygen Delivery Mechanical Ventilation Fraction of Inspired Oxygen 100 06/05/24 20:16 06/05/24 20:00 06/05/24 20:00 Temperature Pulse Rate 66 66 Respiratory Rate 26 H 26 H Blood Pressure Pulse Oximetry 94 Oxygen Delivery Mechanical Ventilation Fraction of Inspired Oxygen 100 100 06/05/24 20:26 06/05/24 20:57 06/05/24 20:00 Temperature Pulse Rate 63 66 67 Respiratory Rate 26 H Blood Pressure 100/40 L Pulse Oximetry 97 Oxygen Delivery Mechanical Ventilation Fraction of Inspired Oxygen 80 06/05/24 20:00 06/05/24 20:00 06/05/24 20:00 Temperature Pulse Rate 67 68 67 Respiratory Rate 26 H 26 H Blood Pressure Pulse Oximetry Oxygen Delivery Fraction of Inspired Oxygen 06/05/24 21:52 06/05/24 21:52 06/05/24 18:59 Temperature Pulse Rate 62 62 68 Respiratory Rate 28 H Blood Pressure Pulse Oximetry 95 Oxygen Delivery Fraction of Inspired Oxygen 06/05/24 19:00 06/05/24 19:01 06/05/24 19:30 Temperature Pulse Rate 68 68 66 Respiratory Rate 27 H 27 H 27 H Blood Pressure 120/63 122/56 L Pulse Oximetry 95 95 96 Oxygen Delivery Fraction of Inspired Oxygen 06/05/24 19:37 06/05/24 20:00 06/05/24 20:01 Temperature 99 F Pulse Rate 66 67 67 Respiratory Rate 26 H 27 H 27 H Blood Pressure 118/53 L 118/55 L Pulse Oximetry 97 96 96 Oxygen Delivery Fraction of Inspired Oxygen 06/05/24 20:30 06/05/24 21:00 06/05/24 21:01 Temperature Pulse Rate 63 62 62 Respiratory Rate 28 H 28 H 28 H Blood Pressure 120/53 L 117/51 L Pulse Oximetry 97 98 98 Oxygen Delivery Fraction of Inspired Oxygen 06/05/24 21:30 06/05/24 22:00 06/05/24 22:01 Temperature Pulse Rate 62 62 62 Respiratory Rate 28 H 28 H 18 Blood Pressure 118/51 L 117/54 L Pulse Oximetry 98 99 100 Oxygen Delivery Fraction of Inspired Oxygen 06/05/24 22:30 06/05/24 23:00 06/05/24 23:01 Temperature Pulse Rate 61 60 60 Respiratory Rate 28 H 28 H 28 H Blood Pressure 118/54 L 121/52 L Pulse Oximetry 99 99 99 Oxygen Delivery Fraction of Inspired Oxygen 06/05/24 23:30 06/06/24 00:05 06/06/24 00:05 Temperature Pulse Rate 60 60 60 Respiratory Rate Blood Pressure 105/44 L 105/44 L Pulse Oximetry 98 Oxygen Delivery Mechanical Ventilation Fraction of Inspired Oxygen 80 06/05/24 22:00 06/05/24 22:00 06/05/24 22:00 Temperature Pulse Rate 62 62 62 Respiratory Rate 28 H 28 H Blood Pressure Pulse Oximetry Oxygen Delivery Fraction of Inspired Oxygen 06/06/24 00:05 06/06/24 00:05 06/06/24 00:05 Temperature Pulse Rate 60 60 60 Respiratory Rate 28 H 26 H Blood Pressure Pulse Oximetry Oxygen Delivery Fraction of Inspired Oxygen 06/05/24 22:00 06/06/24 02:08 06/06/24 02:08 Temperature Pulse Rate 62 60 60 Respiratory Rate 28 H Blood Pressure 102/41 L Pulse Oximetry 98 Oxygen Delivery Mechanical Ventilation Fraction of Inspired Oxygen 80 06/06/24 02:15 06/06/24 00:00 06/06/24 03:58 Temperature Pulse Rate 60 60 60 Respiratory Rate 28 H 28 H 28 H Blood Pressure Pulse Oximetry 98 98 Oxygen Delivery Mechanical Ventilation Mechanical Ventilation Fraction of Inspired Oxygen 80 80 06/06/24 00:00 06/06/24 03:58 06/05/24 20:00 Temperature Pulse Rate 67 Respiratory Rate Blood Pressure Pulse Oximetry Oxygen Delivery Fraction of Inspired Oxygen 80 80 06/05/24 22:00 06/06/24 00:00 06/06/24 02:00 Temperature Pulse Rate 62 60 60 Respiratory Rate Blood Pressure Pulse Oximetry Oxygen Delivery Fraction of Inspired Oxygen 06/06/24 04:00 06/05/24 23:15 06/05/24 23:30 Temperature Pulse Rate 61 60 60 Respiratory Rate 28 H 28 H Blood Pressure 123/55 L Pulse Oximetry 98 99 Oxygen Delivery Fraction of Inspired Oxygen 06/05/24 23:31 06/05/24 23:45 06/06/24 00:00 Temperature 98.7 F Pulse Rate 60 60 60 Respiratory Rate 28 H 28 H Blood Pressure 124/56 L Pulse Oximetry 99 99 98 Oxygen Delivery Fraction of Inspired Oxygen 06/06/24 00:01 06/06/24 00:15 06/06/24 00:30 Temperature Pulse Rate 60 60 60 Respiratory Rate 28 H 28 H Blood Pressure 126/57 L Pulse Oximetry 98 98 98 Oxygen Delivery Fraction of Inspired Oxygen 06/06/24 00:31 06/06/24 00:45 06/06/24 01:00 Temperature Pulse Rate 60 60 60 Respiratory Rate 28 H 28 H 28 H Blood Pressure 128/58 L Pulse Oximetry 98 98 98 Oxygen Delivery Fraction of Inspired Oxygen 06/06/24 01:01 06/06/24 01:15 06/06/24 01:30 Temperature Pulse Rate 61 60 60 Respiratory Rate 28 H 28 H 28 H Blood Pressure 125/57 L Pulse Oximetry 98 98 97 Oxygen Delivery Fraction of Inspired Oxygen 06/06/24 01:31 06/06/24 01:45 06/06/24 02:00 Temperature Pulse Rate 60 60 60 Respiratory Rate 28 H 28 H 28 H Blood Pressure 127/56 L Pulse Oximetry 97 98 98 Oxygen Delivery Fraction of Inspired Oxygen 06/06/24 02:01 06/06/24 02:15 06/06/24 02:30 Temperature Pulse Rate 60 60 60 Respiratory Rate 28 H 28 H 28 H Blood Pressure 126/57 L Pulse Oximetry 98 99 100 Oxygen Delivery Fraction of Inspired Oxygen 06/06/24 02:31 06/06/24 02:56 06/06/24 03:00 Temperature Pulse Rate 60 60 60 Respiratory Rate 28 H 28 H 28 H Blood Pressure 109/47 L 111/50 L Pulse Oximetry 99 96 96 Oxygen Delivery Fraction of Inspired Oxygen 06/06/24 03:01 06/06/24 03:15 06/06/24 03:30 Temperature Pulse Rate 60 60 60 Respiratory Rate 28 H 28 H 28 H Blood Pressure 111/51 L Pulse Oximetry 96 97 98 Oxygen Delivery Fraction of Inspired Oxygen 06/06/24 03:31 06/06/24 03:45 06/06/24 04:00 Temperature 98.9 F Pulse Rate 61 60 61 Respiratory Rate 28 H 28 H 28 H Blood Pressure 118/52 L Pulse Oximetry 98 98 96 Oxygen Delivery Fraction of Inspired Oxygen 06/06/24 04:01 06/06/24 04:15 06/06/24 04:30 Temperature Pulse Rate 61 61 61 Respiratory Rate 28 H 28 H 28 H Blood Pressure 122/56 L Pulse Oximetry 96 95 96 Oxygen Delivery Fraction of Inspired Oxygen 06/06/24 04:31 06/06/24 04:45 06/06/24 05:09 Temperature Pulse Rate 61 61 61 Respiratory Rate 28 H 28 H Blood Pressure Pulse Oximetry 96 96 96 Oxygen Delivery Mechanical Ventilation Fraction of Inspired Oxygen 80 06/06/24 06:00 06/06/24 06:00 06/06/24 02:00 Temperature Pulse Rate 61 60 60 Respiratory Rate 28 H Blood Pressure 100/39 L Pulse Oximetry 96 Oxygen Delivery Fraction of Inspired Oxygen 06/06/24 02:00 06/06/24 02:00 06/06/24 04:00 Temperature Pulse Rate 60 62 60 Respiratory Rate 28 H 28 H 28 H Blood Pressure Pulse Oximetry Oxygen Delivery Fraction of Inspired Oxygen 06/06/24 04:00 06/06/24 04:00 06/06/24 06:00 Temperature Pulse Rate 62 62 60 Respiratory Rate 28 H 28 H Blood Pressure Pulse Oximetry Oxygen Delivery Fraction of Inspired Oxygen 06/06/24 06:00 06/06/24 06:00 06/06/24 03:00 Temperature Pulse Rate 60 60 60 Respiratory Rate 28 H Blood Pressure Pulse Oximetry Oxygen Delivery Fraction of Inspired Oxygen 06/06/24 02:11 06/06/24 04:00 06/06/24 05:00 Temperature Pulse Rate 60 61 60 Respiratory Rate Blood Pressure 107/44 L 118/52 L 100/39 L Pulse Oximetry Oxygen Delivery Fraction of Inspired Oxygen 06/06/24 05:00 06/06/24 06:30 06/06/24 07:42 Temperature Pulse Rate 60 60 60 Respiratory Rate 26 H Blood Pressure 100/39 L 117/55 L Pulse Oximetry Oxygen Delivery Fraction of Inspired Oxygen 06/06/24 07:49 06/06/24 08:03 06/06/24 08:08 Temperature 97.6 F Pulse Rate 60 60 60 Respiratory Rate 28 H 28 H Blood Pressure 112/47 L Pulse Oximetry 95 96 Oxygen Delivery Mechanical Ventilation Fraction of Inspired Oxygen 80 06/06/24 08:23 06/06/24 08:23 06/06/24 08:55 Temperature Pulse Rate 60 63 Respiratory Rate 28 H Blood Pressure 113/48 L Pulse Oximetry Oxygen Delivery Fraction of Inspired Oxygen 80 06/06/24 08:30 06/06/24 08:45 06/06/24 09:00 Temperature Pulse Rate 60 62 67 Respiratory Rate Blood Pressure 116/49 L 115/48 L 103/47 L Pulse Oximetry Oxygen Delivery Fraction of Inspired Oxygen 06/06/24 09:09 06/06/24 09:10 Temperature Pulse Rate 63 63 Respiratory Rate Blood Pressure Pulse Oximetry Oxygen Delivery Fraction of Inspired Oxygen Intake/Output Intake/Output: Intake & Output 06/03/24 06/04/24 06/05/24 06/06/24 23:59 23:59 23:59 23:59 Intake Total 1490 1630 1802.2 518.3 Output Total 266 523 4431 150 Balance 890 1230 -1327.8 368.3 Meds/Results Medications: Active Medications Generic Name Dose Route Start Last Admin Trade Name Fernando PRN Reason Stop Dose Admin Albuterol/Ipratropium 3 ml 06/05/24 11:15 06/06/24 07:41 Ipratropium 0.5 Mg/Albuterol Sulfate 2.5 Mg Ampul.Neb 3 Ml INHALATION 3 ml Q6HRT JOHN Administration Amiodarone HCl 200 mg 06/02/24 21:00 06/06/24 09:10 Amiodarone Hcl 200 Mg Tablet PO 200 mg Q12HR JOHN Administration Dextrose 12.5 gm 06/05/24 11:46 Dextrose 50% 25 Gm/50 Ml Syringe IV PUSH PRN PRN Hypoglycemia Protocol Flecainide Acetate 100 mg 06/02/24 21:00 06/06/24 09:09 Flecainide Acetate 100 Mg Tablet PO 100 mg Q12HR JOHN Administration Gabapentin 200 mg 06/02/24 22:00 06/04/24 21:07 Gabapentin 100 Mg Capsule PO 200 mg Q8HR JOHN Administration Glucagon 1 mg 06/05/24 11:46 Glucagon For Inj 1 Mg Vial IM PRN PRN Hypoglycemia Protocol Glucose 15 gm 06/05/24 11:46 Glucose Oral Gel 15 Gm Of Glucse In 37.5 Gm Tube PO PRN PRN Hypoglycemia Protocol Hydrocortisone Sodium Succinate 100 mg 06/05/24 14:00 06/06/24 07:12 Hydrocortisone Sodium Succinate 100 Mg/2 Ml Vial IV PUSH 100 mg Q8HR JOHN Administration Norepinephrine Bitartrate 8 mg in 250 mls @ 48.75 mls/hr 06/05/24 00:35 06/06/24 06:30 Levophed 8 Mg/D5w 250 Ml IV CONT 26 mcg/min .Q5H8M JOHN 48.75 mls/hr Titration Protocol 26 MCG/MIN Fentanyl Citrate 2,500 mcg in 250 mls @ 5 mls/hr 06/05/24 08:35 06/06/24 06:00 Fentanyl 2,500 Mcg/Ns 250 Ml IV CONT 50 mcg/hr .Q50H JOHN 5 mls/hr Titration Protocol 50 MCG/HR Midazolam HCl 100 mg in 100 mls @ 2 mls/hr 06/05/24 08:35 06/06/24 06:00 Versed 100 Mg/Ns 100 Ml IV CONT 2 mg/hr .Q50H JOHN 2 mls/hr Titration Protocol 2 MG/HR Dextrose 1,000 mls @ 100 mls/hr 06/05/24 11:46 Dextrose 5% 1,000 Ml IVPB PRN PRN Hypoglycemia Protocol Albumin Human 50 mls @ 999 mls/hr 06/05/24 12:43 06/05/24 17:08 Albutein IVPB 07/05/24 12:42 Infused Q10M PRN Infusion HYPOTENSION Cefepime HCl 2 gm in 50 mls @ 100 mls/hr 06/05/24 18:00 06/05/24 18:50 Maxipime 2 Gm/Ns 50 Ml IVPB Infused Q24H JOHN Infusion Vasopressin 100 units/ 100 mls @ 1.8 mls/hr 06/05/24 14:20 06/06/24 06:00 Dextrose IV CONT 0.03 units/min .[id number] JOHN 2 mls/hr Titration Protocol 0.03 UNITS/MIN Insulin Aspart 3 - 6 units 06/05/24 12:00 06/06/24 07:13 Insulin Aspart (*Bkc) 100 Units/Ml SUB-Q 3 units Q6HR JOHN Administration Protocol Midodrine 10 mg 06/05/24 09:00 06/06/24 09:09 Midodrine Hcl 10 Mg Tablet PO 10 mg TID JOHN Administration Multi-Ingred Cream/Lotion/Oil/Oint 1 applic 06/05/24 09:00 06/06/24 09:10 Mineral Oil/White Petrolatum Ointment EACH EYE 1 applic Q12HR JOHN Administration Pantoprazole Sodium 40 mg 06/06/24 09:00 06/06/24 09:09 Pantoprazole Sodium Iv 40 Mg Vial IV PUSH 40 mg Q12HR JOHN Administration Fluticasone/Salmeterol 2 puff 06/03/24 08:00 06/06/24 07:41 Fluticasone/Salmeterol 115-21 Mcg Inhaler 1 Puff INHALATION Not Given Q12HRT JOHN Sodium Chloride 10 ml 06/05/24 06:00 06/06/24 07:13 Central Line Flush IV PUSH 10 ml Q8HR JOHN Administration Sodium Chloride 20 ml 06/05/24 03:12 Central Line Flush IV PUSH PRN PRN after blood draws Umeclidinium [place] 1 puff 06/03/24 08:00 06/06/24 07:41 Umeclidinium [place] 62.5 Mcg Ellipta INHALATION Not Given DAILYRT JOHN Vancomycin HCl 1 each 06/05/24 13:14 Vancomycin For Hemodialysis IVPB PRN PRN Vancomycin Protocol Radiology Results: ITS Impressions Renal Ultrasound 06/04/24 15:06 IMPRESSION: 1. Normal kidneys. No hydronephrosis. Chest/Abdomen/Pelvis CT 06/04/24 19:12 IMPRESSION: 1. Diffuse lung disease, consistent with pulmonary edema versus pneumonia. 2. Moderate volume of ascites. Abdomen X-Ray 06/05/24 09:37 IMPRESSION: 1. Lines and tubes all in expected positions. 2. Diffuse patchy bilateral lung disease which could represent pulmonary edema and/or pneumonia. 3. Cardiomegaly. Chest X-Ray 06/06/24 05:52 Impression: Stable extensive bilateral pulmonary consolidation. Correlate for pulmonary edema, infection, or ARDS. Support tubes, as above. Labs Labs: Laboratory Results - last 24 hr 06/02/24 06/02/24 06/05/24 12:06 13:47 10:41 WBC RBC Hgb Hct MCV MCH MCHC RDW Plt Count MPV Immature Gran % (Auto) Neut % (Auto) Lymph % (Auto) [place] % (Auto) Eos % (Auto) Baso % (Auto) Lymph # (Auto) [place] # (Auto) Eos # (Auto) Baso # (Auto) Abs Immat Gran (auto) Absolute Neuts (auto) Absolute Nucleated RBC Nucleated RBC % PT INR APTT Puncture Site Right brachial ABG pH 7.276 L* ABG pCO2 57.1 H ABG pO2 52.6 L ABG PO2/FiO2 Ratio 0.53 ABG HCO3 26.0 ABG O2 Saturation 82.1 L* ABG O2 Content 14.0 L ABG Base Excess -1.6 A-a Gradient 603.3 Oxyhemoglobin 83.8 L* Carboxyhemoglobin 0.6 Methemoglobin 0.2 Reduced Hemoglobin 15.4 H Total Hemoglobin 11.9 L O2 Delivery Device Ventilator O2 Liters/Min Not Reportable Minute Volume Not Reportable Vent Rate 26 Vent Mode Cmv FiO2 100 Tidal Volume 400 PEEP 10 Peak Inspir Pressure Not Reportable Pressure Support Not Reportable Sodium Potassium Chloride Carbon Dioxide Anion Gap BUN Creatinine Estim Creat Clear Calc Estimated GFR Glucose POC Capillary Glucose Serum Osmolality 290 Lactic Acid Calcium Phosphorus Magnesium Total Bilirubin AST ALT Alkaline Phosphatase Total Creatine Kinase C-Reactive Protein Total Protein Albumin Lipase Urine Osmolality 312 Random Vancomycin 10/15/24 10/15/24 10/15/24 11:28 11:59 14:24 WBC RBC Hgb Hct MCV MCH MCHC RDW Plt Count MPV Immature Gran % (Auto) Neut % (Auto) Lymph % (Auto) [place] % (Auto) Eos % (Auto) Baso % (Auto) Lymph # (Auto) [place] # (Auto) Eos # (Auto) Baso # (Auto) Abs Immat Gran (auto) Absolute Neuts (auto) Absolute Nucleated RBC Nucleated RBC % PT INR APTT Puncture Site Artline ABG pH 7.369 ABG pCO2 47.9 H ABG pO2 78.5 L ABG PO2/FiO2 Ratio 0.79 ABG HCO3 27.0 H ABG O2 Saturation 95.2 ABG O2 Content 16.2 ABG Base Excess 1.2 A-a Gradient 586.6 Oxyhemoglobin 95.6 Carboxyhemoglobin Methemoglobin Reduced Hemoglobin Total Hemoglobin 12.0 O2 Delivery Device Ventilator O2 Liters/Min Not Reportable Minute Volume Not Reportable Vent Rate 26 Vent Mode Cmv FiO2 100 Tidal Volume 400 PEEP 14 Peak Inspir Pressure Not Reportable Pressure Support Not Reportable Sodium Potassium Chloride Carbon Dioxide Anion Gap BUN Creatinine Estim Creat Clear Calc Estimated GFR Glucose POC Capillary Glucose 158 H Serum Osmolality Lactic Acid 3.3 H Calcium Phosphorus Magnesium Total Bilirubin AST ALT Alkaline Phosphatase Total Creatine Kinase C-Reactive Protein Total Protein Albumin Lipase Urine Osmolality Random Vancomycin 06/05/24 06/05/24 06/05/24 14:52 18:14 20:13 WBC RBC Hgb Hct MCV MCH MCHC RDW Plt Count MPV Immature Gran % (Auto) Neut % (Auto) Lymph % (Auto) [place] % (Auto) Eos % (Auto) Baso % (Auto) Lymph # (Auto) [place] # (Auto) Eos # (Auto) Baso # (Auto) Abs Immat Gran (auto) Absolute Neuts (auto) Absolute Nucleated RBC Nucleated RBC % PT INR APTT Puncture Site Artline ABG pH 7.252 L* ABG pCO2 60.1 H ABG pO2 123.0 H ABG PO2/FiO2 Ratio 1.23 ABG HCO3 25.9 ABG O2 Saturation 97.8 ABG O2 Content 17.5 ABG Base Excess -2.2 A-a Gradient 529.9 Oxyhemoglobin 97.8 Carboxyhemoglobin 0.3 Methemoglobin 0.3 Reduced Hemoglobin 1.6 Total Hemoglobin 12.6 O2 Delivery Device Ventilator O2 Liters/Min Not Reportable Minute Volume Not Reportable Vent Rate 26 Vent Mode Cmv FiO2 100 Tidal Volume 400 PEEP 14 Peak Inspir Pressure Not Reportable Pressure Support Not Reportable Sodium Potassium Chloride Carbon Dioxide Anion Gap BUN Creatinine Estim Creat Clear Calc Estimated GFR Glucose POC Capillary Glucose 196 H Serum Osmolality Lactic Acid 2.4 H Calcium Phosphorus Magnesium Total Bilirubin AST ALT Alkaline Phosphatase Total Creatine Kinase C-Reactive Protein Total Protein Albumin Lipase Urine Osmolality Random Vancomycin 14.9 06/06/24 06/06/24 06/06/24 01:15 05:08 05:33 WBC 16.8 H RBC 4.34 Hgb 11.8 L Hct 38.0 MCV 87.6 MCH 27.2 MCHC 31.1 L RDW 17.4 H Plt Count 477 H MPV 9.6 Immature Gran % (Auto) 0.9 H Neut % (Auto) 84.5 H Lymph % (Auto) 7.9 L [place] % (Auto) 6.3 Eos % (Auto) 0.0 Baso % (Auto) 0.4 Lymph # (Auto) 1.32 [place] # (Auto) 1.1 H Eos # (Auto) 0.0 Baso # (Auto) 0.1 Abs Immat Gran (auto) 0.15 H Absolute Neuts (auto) 14.2 H Absolute Nucleated RBC 0.000 Nucleated RBC % 0.0 PT 22.4 H INR 1.9 APTT 44.9 H Puncture Site Artline ABG pH 7.260 L* ABG pCO2 60.8 H* ABG pO2 92.7 ABG PO2/FiO2 Ratio 1.16 ABG HCO3 26.7 H ABG O2 Saturation 95.8 ABG O2 Content 17.0 ABG Base Excess -1.4 A-a Gradient 413.9 Oxyhemoglobin 96.2 Carboxyhemoglobin 0.5 Methemoglobin 0.1 Reduced Hemoglobin 3.2 Total Hemoglobin 12.5 O2 Delivery Device Ventilator O2 Liters/Min Not Reportable Minute Volume Not Reportable Vent Rate 28 Vent Mode Cmv FiO2 80 Tidal Volume 400 PEEP 14 Peak Inspir Pressure Not Reportable Pressure Support Not Reportable Sodium 130 L Potassium 5.4 H Chloride 95 L Carbon Dioxide 25 Anion Gap 10 BUN 49 H Creatinine 4.50 H Estim Creat Clear Calc 22 Estimated GFR 10 L Glucose 206 H POC Capillary Glucose 228 H Serum Osmolality Lactic Acid 1.3 Calcium 9.8 Phosphorus 5.7 H Magnesium 2.4 H Total Bilirubin 2.4 H AST 92 H ALT 47 H Alkaline Phosphatase 235 H Total Creatine Kinase 128 C-Reactive Protein 9.0 H Total Protein 7.0 Albumin 3.6 Lipase 70 Urine Osmolality Random Vancomycin 19.8 Quality VTE Prophylaxis VTE prophylaxis: pharmacologic ordered
[2024-06-06] MEDS: NOREPINEPHRINE 8 MG/D5W 250 ML 8 MG/250 ML BAG 48.75 MG IV CONT (10:00)
[2024-06-06] MEDS: APIXABAN 5 MG TABLET PO ×2 (10:54→20:23)
[2024-06-06 11:46] LABS: Glucose Point of Care 197 mg/dl (65-105)
[2024-06-06] MEDS: HEPARIN SODIUM 1,000 UNITS/ML VIAL 4000 UNITS IV PUSH (12:33)
[2024-06-06 13:32] LABS: Alveolar/Arterial O2 Gradient 397.3 mmHg; Base Excess ABG 1.1 mEq/l (+/-2.0); Carboxyhemoglobin 0.3 % THb (0-2.0); Fractional Inspired Oxygen 80 %; HCO3 ABG 25.2 mEq/l (22.0-26.0); Methemoglobin ABG 0.2 %THb (0-1.5); Oxygen Content ABG 17.4 %vol (16.0-22.0); Oxygen Saturation ABG 98.8 % (95.0-100.0); Oxyhemoglobin 98.6 % THb (90.0-100.0); PCO2 ABG 37.9 mmHg (35.0-45.0); PO2 ABG 133.3 mmHg (80.0-100.0); PO2 FiO2 Ratio Arterial Blood 1.67 %; Reduced Hemoglobin 0.9 %THb (0-5.0); Total Hemoglobin 12.4 g/dL (12.0-18.0)
[2024-06-06 13:33] LABS: Site Drawn ARTLINE
[2024-06-06 13:34] LABS: Device VENTILATOR
[2024-06-06 13:35] LABS: Arterial Blood Gas PEEP 14 cmH2O; Arterial Blood Gas Pressure Support 0 cmH2O; Arterial Blood Gas Tidal Volume 400 ml; Arterial Blood Gas Vent Mode CMV; Arterial Blood Gas Ventilator rate 28 /MIN
[2024-06-06] MEDS: VANCOMYCIN 1,000 MG/NS 250 ML 1,000 MG/250 ML BAG 250 MG IVPB (13:41)
[2024-06-06] MEDS: NOREPINEPHRINE 8 MG/D5W 250 ML 8 MG/250 ML BAG 37.5 MG IV CONT (14:18)
[2024-06-06 14:21] LABS: Anion Gap 12 mmol/L (4-12); Blood Urea Nitrogen 36 mg/dL (7-17); Calcium 9.5 mg/dL (8.4-10.2); Carbon Dioxide 24 mmol/L (22-30); Chloride 97 mmol/L (98-107); Estimated CRCL calculation 30 ml/min; Estimated Glomerular Filt Rate 15; Glucose 193 mg/dL (65-110); Potassium 4.4 mmol/L (3.4-5.0); Sodium 133 mmol/L (137-145)
--- NOTE | 2024-06-06 14:29 | P.PNIM_ITS ---
Progress Note: A&P Assessment and Plan (1) Acute respiratory failure: Code(s): J96.00 - Acute respiratory failure, unspecified whether with hypoxia or hypercapnia Status: Acute Assessment and Plan: Patient originally admitted for difficulty voiding. Patient developed HoTN and hypoxia yesterday that worsened overnight. ABG showing 7.33/58/66.5 on HFNC. Patient brought to the ICU earlier this morning. She had increasing O2 requirements. CXR showed bilateral diffuse pulmonary infiltrates/pulmonary edema. Respiratory failure related to pulmonary edema, pneumonia and/or ARDS Pt intubated in icu ICU MD following (2) Septic shock: Code(s): A41.9 - Sepsis, unspecified organism; R65.21 - Severe sepsis with septic shock Status: Acute Assessment and Plan: Patient was HoTN in the IMU and transferred to the ICU. Septic shock possibly related to UTI, pneumonia. Rt IJ central line was placed and Levophed started. She received fluids, albumin and midodrine Patient is on vancomycin and cefepime which were continued (3) JOVI (acute kidney injury): Code(s): N17.9 - Acute kidney failure, unspecified Status: Acute Assessment and Plan: Baseline Cr normal in April. Cr 2.1 on admission and has worsened JOVI related to shock, sepsis, UTI/pneumonia, hypoxia, SLE flare and/or CHF. TCK levels are normal. Ueos negative. Urine lytes c/w prerenal picture but patient seems to be volume overloaded Pt receiving [employer] today (4) Pulmonary edema: Code(s): J81.1 - Chronic pulmonary edema Status: Acute Assessment and Plan: CT chest (06/04) showing diffuse lung disease c/w PNA vs pulmonary edema. Pulmonary edema likely related to acute kidney injury, ARDS. COVID, RSV and influenza PCR negative on 06/05 She did not respond to Bumex Control fluid status with HD (5) Type 2 diabetes mellitus: Code(s): E11.9 - Type 2 diabetes mellitus without complications Status: Acute Assessment and Plan: A1c 5.7. The patient's blood glucose was reviewed on 06/05 Glucose remains reasonably well controlled. Continue AccuCheks covering with sliding scale. Hypoglycemia protocol available as needed. Continue to monitor (6) Afib: Code(s): I48.91 - Unspecified atrial fibrillation Status: Acute Assessment and Plan: HR well controlled. Continue amiodarone On eliquis (7) SLE (systemic lupus erythematosus): Code(s): M32.9 - Systemic lupus erythematosus, unspecified Status: Acute Assessment and Plan: Consider SLE flare causinig her JOVI. Started on stress dose steroids Nephrology consulted (8) Liver cirrhosis secondary to HOFF[place]: Code(s): K75.81 - Nonalcoholic steatohepatitis (HOFFMANN); K74.60 - Unspecified cirrhosis of liver Status: Acute Assessment and Plan: Patient has a hx of liver cirrhosis. CT abd without contrast shows normal liver. Mild elevation in AST/ALT but that are now improving. TBili higher at 2. [place] related to congestion. Continue to monitor (9) Morbid obesity with BMI of 50.0-59.9, adult: Code(s): E66.01 - Morbid (severe) obesity due to excess calories; Z68.43 - Body mass index [BMI] 50.0-59.9, adult Status: Acute Assessment and Plan: Once extubated she will need lifestyle changes Subjective Date/time seen: 06/06/24 14:29 Interval history: 54yo female with AFib on anticoagulation, PM and DM here for difficulty voiding. Pt in icu intubated being treated for acute respiratory failure, pulmonary edema and septic shock and JOVI Pt receiving emergent dialysis at bedside Review of Systems Review of Systems: Pt is intubated Exam Narrative: Gen - intubated and sedated, morbidly obese HEENT - ETT secured. OGT secured. Neck - Rt IJ TLC in place. Chest - mildly coarse anteriorly. CV - RRR S1/S2. Abd - soft, morbidly obese - Lai secured draining clear urine Ext - diffuse LE pitting pedal edema Neuro - sedated Skin - Warm and dry Objective Data Vital Signs Vital Signs: Vital Signs - 24 hr 06/05/24 14:32 06/05/24 14:30 06/05/24 14:34 Temperature Pulse Rate 61 60 72 Respiratory Rate 26 H Blood Pressure 93/36 L 93/37 L Pulse Oximetry Oxygen Delivery Fraction of Inspired Oxygen 06/05/24 14:39 06/05/24 14:39 06/05/24 14:50 Temperature Pulse Rate 61 60 Respiratory Rate 24 H Blood Pressure 112/45 L 102/37 L Pulse Oximetry Oxygen Delivery Fraction of Inspired Oxygen 100 06/05/24 15:00 06/05/24 15:05 06/05/24 15:05 Temperature Pulse Rate 60 61 61 Respiratory Rate Blood Pressure 105/41 L 104/41 L 104/41 L Pulse Oximetry Oxygen Delivery Fraction of Inspired Oxygen 06/05/24 15:10 06/05/24 15:15 06/05/24 15:30 Temperature Pulse Rate 61 61 61 Respiratory Rate Blood Pressure 103/41 L 115/47 L 117/48 L Pulse Oximetry Oxygen Delivery Fraction of Inspired Oxygen 06/05/24 15:45 06/05/24 16:00 06/05/24 16:15 Temperature Pulse Rate 61 61 60 Respiratory Rate Blood Pressure 113/46 L 110/45 L 109/45 L Pulse Oximetry Oxygen Delivery Fraction of Inspired Oxygen 06/05/24 16:00 06/05/24 16:00 06/05/24 16:00 Temperature 37.0 C Pulse Rate 60 61 Respiratory Rate 27 H Blood Pressure 110/45 L Pulse Oximetry 96 Oxygen Delivery Fraction of Inspired Oxygen 100 06/05/24 16:00 06/05/24 16:00 06/05/24 16:00 Temperature Pulse Rate 60 61 61 Respiratory Rate 27 H Blood Pressure 110/45 L 110/45 L Pulse Oximetry 96 Oxygen Delivery Mechanical Ventilation Fraction of Inspired Oxygen 100 06/05/24 16:00 06/05/24 16:00 06/05/24 18:00 Temperature Pulse Rate 61 61 68 Respiratory Rate 27 H 27 H Blood Pressure 113/47 L Pulse Oximetry Oxygen Delivery Fraction of Inspired Oxygen 06/05/24 18:00 06/05/24 18:00 06/05/24 18:00 Temperature Pulse Rate 68 68 68 Respiratory Rate 26 H 27 H Blood Pressure 113/47 L Pulse Oximetry Oxygen Delivery Fraction of Inspired Oxygen 06/05/24 18:00 06/05/24 18:00 06/05/24 16:30 Temperature Pulse Rate 68 68 60 Respiratory Rate 26 H Blood Pressure 112/47 L 105/43 L Pulse Oximetry 94 Oxygen Delivery Fraction of Inspired Oxygen 06/05/24 16:45 06/05/24 17:00 06/05/24 17:15 Temperature Pulse Rate 60 60 60 Respiratory Rate Blood Pressure 112/47 L 102/42 L 105/43 L Pulse Oximetry Oxygen Delivery Fraction of Inspired Oxygen 06/05/24 17:22 06/05/24 17:30 06/05/24 17:45 Temperature Pulse Rate 115 H 61 66 Respiratory Rate Blood Pressure 106/43 L 102/44 L Pulse Oximetry 94 Oxygen Delivery Mechanical Ventilation Fraction of Inspired Oxygen 100 06/05/24 17:50 06/05/24 17:58 06/05/24 19:39 Temperature 36.9 C Pulse Rate 66 68 66 Respiratory Rate 26 H Blood Pressure 104/44 L 113/47 L 101/42 L Pulse Oximetry Oxygen Delivery Fraction of Inspired Oxygen 06/05/24 19:39 06/05/24 20:16 06/05/24 20:16 Temperature Pulse Rate 66 66 66 Respiratory Rate 26 H Blood Pressure 101/42 L Pulse Oximetry 97 Oxygen Delivery Mechanical Ventilation Fraction of Inspired Oxygen 100 06/05/24 20:00 06/05/24 20:00 06/05/24 20:26 Temperature Pulse Rate 66 63 Respiratory Rate 26 H 26 H Blood Pressure Pulse Oximetry 94 Oxygen Delivery Mechanical Ventilation Fraction of Inspired Oxygen 100 100 06/05/24 20:57 06/05/24 20:00 06/05/24 20:00 Temperature Pulse Rate 66 67 67 Respiratory Rate Blood Pressure 100/40 L Pulse Oximetry 97 Oxygen Delivery Mechanical Ventilation Fraction of Inspired Oxygen 80 06/05/24 20:00 06/05/24 20:00 06/05/24 21:52 Temperature Pulse Rate 68 67 62 Respiratory Rate 26 H 26 H Blood Pressure Pulse Oximetry Oxygen Delivery Fraction of Inspired Oxygen 06/05/24 21:52 06/05/24 18:59 06/05/24 19:00 Temperature Pulse Rate 62 68 68 Respiratory Rate 28 H 27 H Blood Pressure 120/63 Pulse Oximetry 95 95 Oxygen Delivery Fraction of Inspired Oxygen 06/05/24 19:01 06/05/24 19:30 06/05/24 19:37 Temperature Pulse Rate 68 66 66 Respiratory Rate 27 H 27 H 26 H Blood Pressure 122/56 L 118/53 L Pulse Oximetry 95 96 97 Oxygen Delivery Fraction of Inspired Oxygen 06/05/24 20:00 06/05/24 20:01 06/05/24 20:30 Temperature 37.2 C Pulse Rate 67 67 63 Respiratory Rate 27 H 27 H 28 H Blood Pressure 118/55 L 120/53 L Pulse Oximetry 96 96 97 Oxygen Delivery Fraction of Inspired Oxygen 06/05/24 21:00 06/05/24 21:01 06/05/24 21:30 Temperature Pulse Rate 62 62 62 Respiratory Rate 28 H 28 H 28 H Blood Pressure 117/51 L 118/51 L Pulse Oximetry 98 98 98 Oxygen Delivery Fraction of Inspired Oxygen 06/05/24 22:00 06/05/24 22:01 06/05/24 22:30 Temperature Pulse Rate 62 62 61 Respiratory Rate 28 H 18 28 H Blood Pressure 117/54 L 118/54 L Pulse Oximetry 99 100 99 Oxygen Delivery Fraction of Inspired Oxygen 06/05/24 23:00 06/05/24 23:01 06/05/24 23:30 Temperature Pulse Rate 60 60 60 Respiratory Rate 28 H 28 H Blood Pressure 121/52 L Pulse Oximetry 99 99 98 Oxygen Delivery Mechanical Ventilation Fraction of Inspired Oxygen 80 06/06/24 00:05 06/06/24 00:05 06/05/24 22:00 Temperature Pulse Rate 60 60 62 Respiratory Rate Blood Pressure 105/44 L 105/44 L Pulse Oximetry Oxygen Delivery Fraction of Inspired Oxygen 06/05/24 22:00 06/05/24 22:00 06/06/24 00:05 Temperature Pulse Rate 62 62 60 Respiratory Rate 28 H 28 H Blood Pressure Pulse Oximetry Oxygen Delivery Fraction of Inspired Oxygen 06/06/24 00:05 06/06/24 00:05 06/05/24 22:00 Temperature Pulse Rate 60 60 62 Respiratory Rate 28 H 26 H Blood Pressure 102/41 L Pulse Oximetry Oxygen Delivery Fraction of Inspired Oxygen 06/06/24 02:08 06/06/24 02:08 06/06/24 02:15 Temperature Pulse Rate 60 60 60 Respiratory Rate 28 H 28 H Blood Pressure Pulse Oximetry 98 Oxygen Delivery Mechanical Ventilation Fraction of Inspired Oxygen 80 06/06/24 00:00 06/06/24 03:58 06/06/24 00:00 Temperature Pulse Rate 60 60 Respiratory Rate 28 H 28 H Blood Pressure Pulse Oximetry 98 98 Oxygen Delivery Mechanical Ventilation Mechanical Ventilation Fraction of Inspired Oxygen 80 80 80 06/06/24 03:58 06/05/24 20:00 06/05/24 22:00 Temperature Pulse Rate 67 62 Respiratory Rate Blood Pressure Pulse Oximetry Oxygen Delivery Fraction of Inspired Oxygen 80 06/06/24 00:00 06/06/24 02:00 06/06/24 04:00 Temperature Pulse Rate 60 60 61 Respiratory Rate Blood Pressure Pulse Oximetry Oxygen Delivery Fraction of Inspired Oxygen 06/05/24 23:15 06/05/24 23:30 06/05/24 23:31 Temperature Pulse Rate 60 60 60 Respiratory Rate 28 H 28 H 28 H Blood Pressure 123/55 L Pulse Oximetry 98 99 99 Oxygen Delivery Fraction of Inspired Oxygen 06/05/24 23:45 06/06/24 00:00 06/06/24 00:01 Temperature 37.1 C Pulse Rate 60 60 60 Respiratory Rate 28 H Blood Pressure 124/56 L Pulse Oximetry 99 98 98 Oxygen Delivery Fraction of Inspired Oxygen 06/06/24 00:15 06/06/24 00:30 06/06/24 00:31 Temperature Pulse Rate 60 60 60 Respiratory Rate 28 H 28 H 28 H Blood Pressure 126/57 L Pulse Oximetry 98 98 98 Oxygen Delivery Fraction of Inspired Oxygen 06/06/24 00:45 06/06/24 01:00 06/06/24 01:01 Temperature Pulse Rate 60 60 61 Respiratory Rate 28 H 28 H 28 H Blood Pressure 128/58 L Pulse Oximetry 98 98 98 Oxygen Delivery Fraction of Inspired Oxygen 06/06/24 01:15 06/06/24 01:30 06/06/24 01:31 Temperature Pulse Rate 60 60 60 Respiratory Rate 28 H 28 H 28 H Blood Pressure 125/57 L Pulse Oximetry 98 97 97 Oxygen Delivery Fraction of Inspired Oxygen 06/06/24 01:45 06/06/24 02:00 06/06/24 02:01 Temperature Pulse Rate 60 60 60 Respiratory Rate 28 H 28 H 28 H Blood Pressure 127/56 L Pulse Oximetry 98 98 98 Oxygen Delivery Fraction of Inspired Oxygen 06/06/24 02:15 06/06/24 02:30 06/06/24 02:31 Temperature Pulse Rate 60 60 60 Respiratory Rate 28 H 28 H 28 H Blood Pressure 126/57 L Pulse Oximetry 99 100 99 Oxygen Delivery Fraction of Inspired Oxygen 06/06/24 02:56 06/06/24 03:00 06/06/24 03:01 Temperature Pulse Rate 60 60 60 Respiratory Rate 28 H 28 H 28 H Blood Pressure 109/47 L 111/50 L Pulse Oximetry 96 96 96 Oxygen Delivery Fraction of Inspired Oxygen 06/06/24 03:15 06/06/24 03:30 06/06/24 03:31 Temperature Pulse Rate 60 60 61 Respiratory Rate 28 H 28 H 28 H Blood Pressure 111/51 L Pulse Oximetry 97 98 98 Oxygen Delivery Fraction of Inspired Oxygen 06/06/24 03:45 06/06/24 04:00 06/06/24 04:01 Temperature 37.2 C Pulse Rate 60 61 61 Respiratory Rate 28 H 28 H 28 H Blood Pressure 118/52 L Pulse Oximetry 98 96 96 Oxygen Delivery Fraction of Inspired Oxygen 06/06/24 04:15 06/06/24 04:30 06/06/24 04:31 Temperature Pulse Rate 61 61 61 Respiratory Rate 28 H 28 H 28 H Blood Pressure 122/56 L Pulse Oximetry 95 96 96 Oxygen Delivery Fraction of Inspired Oxygen 06/06/24 04:45 06/06/24 05:09 06/06/24 06:00 Temperature Pulse Rate 61 61 61 Respiratory Rate 28 H Blood Pressure Pulse Oximetry 96 96 Oxygen Delivery Mechanical Ventilation Fraction of Inspired Oxygen 80 06/06/24 06:00 06/06/24 02:00 06/06/24 02:00 Temperature Pulse Rate 60 60 60 Respiratory Rate 28 H 28 H Blood Pressure 100/39 L Pulse Oximetry 96 Oxygen Delivery Fraction of Inspired Oxygen 06/06/24 02:00 06/06/24 04:00 06/06/24 04:00 Temperature Pulse Rate 62 60 62 Respiratory Rate 28 H 28 H 28 H Blood Pressure Pulse Oximetry Oxygen Delivery Fraction of Inspired Oxygen 06/06/24 04:00 06/06/24 06:00 06/06/24 06:00 Temperature Pulse Rate 62 60 60 Respiratory Rate 28 H 28 H Blood Pressure Pulse Oximetry Oxygen Delivery Fraction of Inspired Oxygen 06/06/24 06:00 06/06/24 03:00 06/06/24 02:11 Temperature Pulse Rate 60 60 60 Respiratory Rate Blood Pressure 107/44 L Pulse Oximetry Oxygen Delivery Fraction of Inspired Oxygen 06/06/24 04:00 06/06/24 05:00 06/06/24 05:00 Temperature Pulse Rate 61 60 60 Respiratory Rate Blood Pressure 118/52 L 100/39 L 100/39 L Pulse Oximetry Oxygen Delivery Fraction of Inspired Oxygen 06/06/24 06:30 06/06/24 07:42 06/06/24 07:49 Temperature Pulse Rate 60 60 60 Respiratory Rate 26 H Blood Pressure 117/55 L Pulse Oximetry 95 Oxygen Delivery Mechanical Ventilation Fraction of Inspired Oxygen 80 06/06/24 08:03 06/06/24 08:08 06/06/24 08:23 Temperature 36.4 C Pulse Rate 60 60 Respiratory Rate 28 H 28 H Blood Pressure 112/47 L Pulse Oximetry 96 Oxygen Delivery Fraction of Inspired Oxygen 80 06/06/24 08:23 06/06/24 08:55 06/06/24 08:30 Temperature Pulse Rate 60 63 60 Respiratory Rate 28 H Blood Pressure 113/48 L 116/49 L Pulse Oximetry Oxygen Delivery Fraction of Inspired Oxygen 06/06/24 08:45 06/06/24 09:00 06/06/24 09:09 Temperature Pulse Rate 62 67 63 Respiratory Rate Blood Pressure 115/48 L 103/47 L Pulse Oximetry Oxygen Delivery Fraction of Inspired Oxygen 06/06/24 09:10 06/06/24 10:00 06/06/24 10:00 Temperature Pulse Rate 63 60 60 Respiratory Rate Blood Pressure 114/47 L 117/48 L Pulse Oximetry Oxygen Delivery Fraction of Inspired Oxygen 06/06/24 08:00 06/06/24 09:15 06/06/24 09:45 Temperature 36.5 C Pulse Rate 60 63 61 Respiratory Rate 28 H Blood Pressure 110/45 L 113/48 L 120/50 L Pulse Oximetry 96 Oxygen Delivery Fraction of Inspired Oxygen 06/06/24 09:30 06/06/24 08:00 06/06/24 09:00 Temperature 37.0 C Pulse Rate 62 60 64 Respiratory Rate 28 H 64 H Blood Pressure 117/50 L 110/45 L 114/48 L Pulse Oximetry 96 99 Oxygen Delivery Fraction of Inspired Oxygen 06/06/24 10:00 06/06/24 10:00 06/06/24 10:00 Temperature Pulse Rate 61 61 61 Respiratory Rate 28 H Blood Pressure 107/44 L 107/44 L 122/51 L Pulse Oximetry 99 Oxygen Delivery Fraction of Inspired Oxygen 06/06/24 11:00 06/06/24 11:23 06/06/24 11:45 Temperature Pulse Rate 60 60 60 Respiratory Rate Blood Pressure 121/51 L 120/50 L 118/48 L Pulse Oximetry Oxygen Delivery Fraction of Inspired Oxygen 06/06/24 12:00 06/06/24 12:15 06/06/24 10:15 Temperature Pulse Rate 60 60 61 Respiratory Rate Blood Pressure 121/49 L 122/49 L 123/51 L Pulse Oximetry Oxygen Delivery Fraction of Inspired Oxygen 06/06/24 10:30 06/06/24 10:45 06/06/24 08:00 Temperature Pulse Rate 60 60 60 Respiratory Rate Blood Pressure 123/50 L 122/51 L Pulse Oximetry Oxygen Delivery Fraction of Inspired Oxygen 06/06/24 08:00 06/06/24 08:00 06/06/24 10:00 Temperature Pulse Rate 60 60 Respiratory Rate 28 H Blood Pressure Pulse Oximetry 99 Oxygen Delivery Mechanical Ventilation Fraction of Inspired Oxygen 80 80 06/06/24 11:00 06/06/24 11:00 06/06/24 11:15 Temperature Pulse Rate 60 60 60 Respiratory Rate 28 H Blood Pressure 119/50 L 121/49 L 151/50 H Pulse Oximetry 100 Oxygen Delivery Fraction of Inspired Oxygen 06/06/24 11:13 06/06/24 12:23 06/06/24 12:30 Temperature 36.4 C L Pulse Rate 60 60 60 Respiratory Rate 60 H Blood Pressure 121/49 L 124/51 L Pulse Oximetry 99 99 Oxygen Delivery Mechanical Ventilation Fraction of Inspired Oxygen 80 06/06/24 12:00 06/06/24 12:00 06/06/24 12:00 Temperature Pulse Rate 60 60 Respiratory Rate 60 H Blood Pressure Pulse Oximetry 99 Oxygen Delivery Mechanical Ventilation Fraction of Inspired Oxygen 80 80 06/06/24 12:00 06/06/24 13:00 06/06/24 13:35 Temperature 37.0 C Pulse Rate 118 H 63 63 Respiratory Rate 18 28 H Blood Pressure 126/89 125/54 L 125/56 L Pulse Oximetry 100 99 Oxygen Delivery Fraction of Inspired Oxygen 06/06/24 13:45 06/06/24 13:55 06/06/24 14:03 Temperature Pulse Rate 60 65 62 Respiratory Rate Blood Pressure 117/48 L 108/44 L 109/43 L Pulse Oximetry Oxygen Delivery Fraction of Inspired Oxygen 06/06/24 14:16 06/06/24 14:18 06/06/24 14:18 Temperature Pulse Rate 60 60 60 Respiratory Rate Blood Pressure 96/37 L 106/41 L Pulse Oximetry Oxygen Delivery Fraction of Inspired Oxygen 06/06/24 13:42 06/06/24 13:44 06/06/24 13:55 Temperature Pulse Rate 68 60 65 Respiratory Rate 28 H 28 H Blood Pressure Pulse Oximetry 97 Oxygen Delivery Mechanical Ventilation Fraction of Inspired Oxygen 60 Intake/Output Intake/Output: Intake & Output 06/03/24 06/04/24 06/05/24 06/06/24 23:59 23:59 23:59 23:59 Intake Total 1490 1630 1802.2 891.5 Output Total 929 656 6994 3150 Balance 890 1230 -1327.8 -2258.5 Meds/Results Medications: Active Medications Generic Name Dose Route Start Last Admin Trade Name Freq PRN Reason Stop Dose Admin Albuterol/Ipratropium 3 ml 06/05/24 11:15 06/06/24 13:41 Ipratropium 0.5 Mg/Albuterol Sulfate 2.5 Mg Ampul.Neb 3 Ml INHALATION 3 ml Q6HRT JOHN Administration Amiodarone HCl 200 mg 06/02/24 21:00 06/06/24 09:10 Amiodarone Hcl 200 Mg Tablet PO 200 mg Q12HR JOHN Administration Apixaban 5 mg 06/06/24 09:30 06/06/24 10:54 Apixaban 5 Mg Tablet PO 5 mg Q12HR JOHN Administration Dextrose 12.5 gm 06/05/24 11:46 Dextrose 50% 25 Gm/50 Ml Syringe IV PUSH PRN PRN Hypoglycemia Protocol Flecainide Acetate 100 mg 06/02/24 21:00 06/06/24 09:09 Flecainide Acetate 100 Mg Tablet PO 100 mg Q12HR JOHN Administration Gabapentin 200 mg 06/02/24 22:00 06/04/24 21:07 Gabapentin 100 Mg Capsule PO 200 mg Q8HR JOHN Administration Glucagon 1 mg 06/05/24 11:46 Glucagon For Inj 1 Mg Vial IM PRN PRN Hypoglycemia Protocol Glucose 15 gm 06/05/24 11:46 Glucose Oral Gel 15 Gm Of Glucse In 37.5 Gm Tube PO PRN PRN Hypoglycemia Protocol Hydrocortisone Sodium Succinate 100 mg 06/05/24 14:00 06/06/24 13:41 Hydrocortisone Sodium Succinate 100 Mg/2 Ml Vial IV PUSH 100 mg Q8HR JOHN Administration Norepinephrine Bitartrate 8 mg in 250 mls @ 37.5 mls/hr 06/05/24 00:35 06/06/24 14:18 Levophed 8 Mg/D5w 250 Ml IV CONT 20 mcg/min .Q6H40M JOHN 37.5 mls/hr Administration Protocol 20 MCG/MIN Fentanyl Citrate 2,500 mcg in 250 mls @ 5 mls/hr 06/05/24 08:35 06/06/24 06:00 Fentanyl 2,500 Mcg/Ns 250 Ml IV CONT 50 mcg/hr .Q50H JOHN 5 mls/hr Titration Protocol 50 MCG/HR Midazolam HCl 100 mg in 100 mls @ 2 mls/hr 06/05/24 08:35 06/06/24 06:00 Versed 100 Mg/Ns 100 Ml IV CONT 2 mg/hr .Q50H JOHN 2 mls/hr Titration Protocol 2 MG/HR Dextrose 1,000 mls @ 100 mls/hr 06/05/24 11:46 Dextrose 5% 1,000 Ml IVPB PRN PRN Hypoglycemia Protocol Albumin Human 50 mls @ 999 mls/hr 06/05/24 12:43 06/05/24 17:08 Albutein IVPB 07/05/24 12:42 Infused Q10M PRN Infusion HYPOTENSION Vasopressin 100 units/ 100 mls @ 1.8 mls/hr 06/05/24 14:20 06/06/24 06:00 Dextrose IV CONT 0.03 units/min .[id number] JOHN 2 mls/hr Titration Protocol 0.03 UNITS/MIN Vancomycin HCl 1,000 mg in 250 mls @ 250 mls/hr 06/06/24 14:00 06/06/24 13:41 Vancomycin 1,000 Mg/Ns 250 Ml IVPB 06/06/24 14:59 250 mls/hr ONCE ONE Administration Cefepime HCl 1 gm in 50 mls @ 100 mls/hr 06/06/24 16:00 Maxipime 1 Gm/Ns 50 Ml IVPB Q24H JOHN Insulin Aspart 3 - 6 units 06/05/24 12:00 06/06/24 12:01 Insulin Aspart (*Bkc) 100 Units/Ml SUB-Q Not Given Q6HR [facility] Protocol Midodrine 10 mg 06/05/24 09:00 06/06/24 13:41 Midodrine Hcl 10 Mg Tablet PO 10 mg TID JOHN Administration Multi-Ingred Cream/Lotion/Oil/Oint 1 applic 06/05/24 09:00 06/06/24 09:10 Mineral Oil/White Petrolatum Ointment EACH EYE 1 applic Q12HR JOHN Administration Pantoprazole Sodium 40 mg 06/06/24 09:00 06/06/24 09:09 Pantoprazole Sodium Iv 40 Mg Vial IV PUSH 40 mg Q12HR JOHN Administration Fluticasone/Salmeterol 2 puff 06/03/24 08:00 06/06/24 07:41 Fluticasone/Salmeterol 115-21 Mcg Inhaler 1 Puff INHALATION Not Given Q12HRT JOHN Sodium Chloride 10 ml 06/05/24 06:00 06/06/24 13:41 Central Line Flush IV PUSH 10 ml Q8HR JOHN Administration Sodium Chloride 20 ml 06/05/24 03:12 Central Line Flush IV PUSH PRN PRN after blood draws Umeclidinium [place] 1 puff 06/03/24 08:00 06/06/24 07:41 Umeclidinium [place] 62.5 Mcg Ellipta INHALATION Not Given DAILYRT JOHN Vancomycin HCl 1 each 06/05/24 13:14 Vancomycin For Hemodialysis IVPB PRN PRN Vancomycin Protocol Radiology Results: ITS Impressions Renal Ultrasound 06/04/24 15:06 IMPRESSION: 1. Normal kidneys. No hydronephrosis. Chest/Abdomen/Pelvis CT 06/04/24 19:12 IMPRESSION: 1. Diffuse lung disease, consistent with pulmonary edema versus pneumonia. 2. Moderate volume of ascites. Abdomen X-Ray 06/05/24 09:37 IMPRESSION: 1. Lines and tubes all in expected positions. 2. Diffuse patchy bilateral lung disease which could represent pulmonary edema and/or pneumonia. 3. Cardiomegaly. Chest X-Ray 06/06/24 05:52 Impression: Stable extensive bilateral pulmonary consolidation. Correlate for pulmonary edema, infection, or ARDS. Support tubes, as above. Labs Labs: Laboratory Results - last 24 hr 06/02/24 06/02/24 06/05/24 12:06 13:47 14:24 WBC RBC Hgb Hct MCV MCH MCHC RDW Plt Count MPV Immature Gran % (Auto) Neut % (Auto) Lymph % (Auto) [place] % (Auto) Eos % (Auto) Baso % (Auto) Lymph # (Auto) [place] # (Auto) Eos # (Auto) Baso # (Auto) Abs Immat Gran (auto) Absolute Neuts (auto) Absolute Nucleated RBC Nucleated RBC % PT INR APTT Puncture Site ABG pH ABG pCO2 ABG pO2 ABG PO2/FiO2 Ratio ABG HCO3 ABG O2 Saturation ABG O2 Content ABG Base Excess A-a Gradient Oxyhemoglobin Carboxyhemoglobin Methemoglobin Reduced Hemoglobin Total Hemoglobin O2 Delivery Device O2 Liters/Min Minute Volume Not Reportable Vent Rate 26 Vent Mode Cmv FiO2 Tidal Volume 400 PEEP 14 Peak Inspir Pressure Not Reportable Pressure Support Not Reportable Sodium Potassium Chloride Carbon Dioxide Anion Gap BUN Creatinine Estim Creat Clear Calc Estimated GFR Glucose POC Capillary Glucose Serum Osmolality 290 Lactic Acid Calcium Phosphorus Magnesium Total Bilirubin AST ALT Alkaline Phosphatase Total Creatine Kinase C-Reactive Protein Total Protein Albumin Lipase Urine Osmolality 312 Random Vancomycin 06/05/24 06/05/24 06/05/24 14:52 18:14 20:13 WBC RBC Hgb Hct MCV MCH MCHC RDW Plt Count MPV Immature Gran % (Auto) Neut % (Auto) Lymph % (Auto) [place] % (Auto) Eos % (Auto) Baso % (Auto) Lymph # (Auto) [place] # (Auto) Eos # (Auto) Baso # (Auto) Abs Immat Gran (auto) Absolute Neuts (auto) Absolute Nucleated RBC Nucleated RBC % PT INR APTT Puncture Site Artline ABG pH 7.252 L* ABG pCO2 60.1 H ABG pO2 123.0 H ABG PO2/FiO2 Ratio 1.23 ABG HCO3 25.9 ABG O2 Saturation 97.8 ABG O2 Content 17.5 ABG Base Excess -2.2 A-a Gradient 529.9 Oxyhemoglobin 97.8 Carboxyhemoglobin 0.3 Methemoglobin 0.3 Reduced Hemoglobin 1.6 Total Hemoglobin 12.6 O2 Delivery Device Ventilator O2 Liters/Min Not Reportable Minute Volume Not Reportable Vent Rate 26 Vent Mode Cmv FiO2 100 Tidal Volume 400 PEEP 14 Peak Inspir Pressure Not Reportable Pressure Support Not Reportable Sodium Potassium Chloride Carbon Dioxide Anion Gap BUN Creatinine Estim Creat Clear Calc Estimated GFR Glucose POC Capillary Glucose 196 H Serum Osmolality Lactic Acid 2.4 H Calcium Phosphorus Magnesium Total Bilirubin AST ALT Alkaline Phosphatase Total Creatine Kinase C-Reactive Protein Total Protein Albumin Lipase Urine Osmolality Random Vancomycin 14.9 06/06/24 06/06/24 06/06/24 01:15 05:08 05:33 WBC 16.8 H RBC 4.34 Hgb 11.8 L Hct 38.0 MCV 87.6 MCH 27.2 MCHC 31.1 L RDW 17.4 H Plt Count 477 H MPV 9.6 Immature Gran % (Auto) 0.9 H Neut % (Auto) 84.5 H Lymph % (Auto) 7.9 L [place] % (Auto) 6.3 Eos % (Auto) 0.0 Baso % (Auto) 0.4 Lymph # (Auto) 1.32 [place] # (Auto) 1.1 H Eos # (Auto) 0.0 Baso # (Auto) 0.1 Abs Immat Gran (auto) 0.15 H Absolute Neuts (auto) 14.2 H Absolute Nucleated RBC 0.000 Nucleated RBC % 0.0 PT 22.4 H INR 1.9 APTT 44.9 H Puncture Site Artline ABG pH 7.260 L* ABG pCO2 60.8 H* ABG pO2 92.7 ABG PO2/FiO2 Ratio 1.16 ABG HCO3 26.7 H ABG O2 Saturation 95.8 ABG O2 Content 17.0 ABG Base Excess -1.4 A-a Gradient 413.9 Oxyhemoglobin 96.2 Carboxyhemoglobin 0.5 Methemoglobin 0.1 Reduced Hemoglobin 3.2 Total Hemoglobin 12.5 O2 Delivery Device Ventilator O2 Liters/Min Not Reportable Minute Volume Not Reportable Vent Rate 28 Vent Mode Cmv FiO2 80 Tidal Volume 400 PEEP 14 Peak Inspir Pressure Not Reportable Pressure Support Not Reportable Sodium 130 L Potassium 5.4 H Chloride 95 L Carbon Dioxide 25 Anion Gap 10 BUN 49 H Creatinine 4.50 H Estim Creat Clear Calc 22 Estimated GFR 10 L Glucose 206 H POC Capillary Glucose 228 H Serum Osmolality Lactic Acid 1.3 Calcium 9.8 Phosphorus 5.7 H Magnesium 2.4 H Total Bilirubin 2.4 H AST 92 H ALT 47 H Alkaline Phosphatase 235 H Total Creatine Kinase 128 C-Reactive Protein 9.0 H Total Protein 7.0 Albumin 3.6 Lipase 70 Urine Osmolality Random Vancomycin 19.8 06/06/24 06/06/24 06/06/24 11:43 13:27 14:00 WBC RBC Hgb Hct MCV MCH MCHC RDW Plt Count MPV Immature Gran % (Auto) Neut % (Auto) Lymph % (Auto) [place] % (Auto) Eos % (Auto) Baso % (Auto) Lymph # (Auto) [place] # (Auto) Eos # (Auto) Baso # (Auto) Abs Immat Gran (auto) Absolute Neuts (auto) Absolute Nucleated RBC Nucleated RBC % PT INR APTT Puncture Site Artline ABG pH 7.440 ABG pCO2 37.9 ABG pO2 133.3 H ABG PO2/FiO2 Ratio 1.67 ABG HCO3 25.2 ABG O2 Saturation 98.8 ABG O2 Content 17.4 ABG Base Excess 1.1 A-a Gradient 397.3 Oxyhemoglobin 98.6 Carboxyhemoglobin 0.3 Methemoglobin 0.2 Reduced Hemoglobin 0.9 Total Hemoglobin 12.4 O2 Delivery Device Ventilator O2 Liters/Min 0.0 Minute Volume Not Reportable Vent Rate 28 Vent Mode Cmv FiO2 80 Tidal Volume 400 PEEP 14 Peak Inspir Pressure Not Reportable Pressure Support 0 Sodium 133 L Potassium 4.4 Chloride 97 L Carbon Dioxide 24 Anion Gap 12 BUN 36 H D Creatinine 3.30 H Estim Creat Clear Calc 30 Estimated GFR 15 L Glucose 193 H POC Capillary Glucose 197 H Serum Osmolality Lactic Acid Calcium 9.5 Phosphorus Magnesium Total Bilirubin AST ALT Alkaline Phosphatase Total Creatine Kinase C-Reactive Protein Total Protein Albumin Lipase Urine Osmolality Random Vancomycin
[2024-06-06] MEDS: CEFEPIME 1 GM/NS 50 ML 1 GM/50 ML BAG IVPB (16:20)
[2024-06-06 18:31] LABS: Glucose Point of Care 183 mg/dl (65-105)
[2024-06-06 23:47] LABS: Glucose Point of Care 167 mg/dl (65-105)
[2024-06-07] VITALS (64 sets, daily range): BP systolic 87–128; BP diastolic 32–72; PULSE 60–68; RESP 24–28; TEMP 36.9–38.4; O2SAT 94–97
[2024-06-07] MEDS: IPRATROPIUM 0.5 MG/ALBUTEROL SULFATE 2.5 MG AMPUL.NEB 3 ML INHALATION ×4 (02:40→21:27)
[2024-06-07] MEDS: MIDAZOLAM 100MG/NS 100ML(*CRX) 100 MG/100 ML BAG IV CONT (03:17)
[2024-06-07] MEDS: NOREPINEPHRINE 8 MG/D5W 250 ML 8 MG/250 ML BAG 13.13 MG IV CONT (05:36)
[2024-06-07] MEDS: HYDROCORTISONE SODIUM SUCCINATE 100 MG/2 ML VIAL IV PUSH ×3 (05:40→22:27)
[2024-06-07 05:55] LABS: Basophils Percent Auto 0.2 % (0.2-1.2); Hematocrit 31.8 % (37.0-47.0); Hemoglobin 10.5 g/dL (12.0-15.0); Immature Granulocyte Absolute 0.11 K/mm3 (0.00-0.031); Immature Granulocyte Percent A 0.9 % (0-0.5); Lymphocytes Absolute Auto 1.21 K/mm3 (0.9-3.2); Lymphocytes Percent Auto 10.3 % (18.3-44.2); Mean Corpuscular Hemoglobin 27.5 pg (26-34); Mean Corpuscular Volume 83.2 fl (80-100); Mean Platelet Volume 9.5 fl (7.4-10.4); Monocytes Percent Auto 8.4 % (2.6-8.5); Neutrophils Absolute Auto 9.4 K/mm3 (1.3-6.7); Neutrophils Percent Auto 80.2 % (45.5-73.1); Platelet Count Result 373 k/mm3 (150-375); Red Blood Count 3.82 M/mm3 (4.2-5.4); Red Cell Distribution Width 17.2 % (11.5-14.5); White Blood Count 11.8 K/mm3 (4.5-10.0)
[2024-06-07] MEDS: CENTRAL LINE FLUSH 10 ML IV PUSH ×3 (05:57→22:27)
[2024-06-07 06:01] LABS: Alveolar/Arterial O2 Gradient 296.3 mmHg; Base Excess ABG 3.3 mEq/l (+/-2.0); Carboxyhemoglobin 0.7 % THb (0-2.0); Fractional Inspired Oxygen 60 %; HCO3 ABG 26.3 mEq/l (22.0-26.0); Methemoglobin ABG 0.2 %THb (0-1.5); Oxygen Content ABG 21.5 %vol (16.0-22.0); Oxygen Saturation ABG 97.6 % (95.0-100.0); Oxyhemoglobin 96.7 % THb (90.0-100.0); PCO2 ABG 35.3 mmHg (35.0-45.0); PO2 ABG 92.7 mmHg (80.0-100.0); PO2 FiO2 Ratio Arterial Blood 1.54 %; Reduced Hemoglobin 2.4 %THb (0-5.0); Total Hemoglobin 15.8 g/dL (12.0-18.0)
[2024-06-07 06:02] LABS: Device VENTILATOR; Site Drawn ARTLINE
[2024-06-07 06:03] LABS: Arterial Blood Gas PEEP 14 cmH2O; Arterial Blood Gas Tidal Volume 400 ml; Arterial Blood Gas Vent Mode CMV; Arterial Blood Gas Ventilator rate 28 /MIN
[2024-06-07 06:09] LABS: Lactic Acid Reflex 1.3 mmol/L (0.7-2.0)
[2024-06-07 06:12] LABS: Glucose Point of Care 157 mg/dl (65-105)
[2024-06-07 06:12] LABS: Alanine Aminotransferase 40 U/L (6-35); Albumin Level 3.1 g/dL (3.5-5.1); Alkaline Phosphatase 192 U/L (38-126); Anion Gap 8 mmol/L (4-12); Aspartate Amino Transferase 74 U/L (14-36); Bilirubin,Total 1.9 mg/dL (0.2-1.3); Blood Urea Nitrogen 49 mg/dL (7-17); Calcium 9.6 mg/dL (8.4-10.2); Carbon Dioxide 26 mmol/L (22-30); Chloride 97 mmol/L (98-107); Estimated CRCL calculation 25 ml/min; Estimated Glomerular Filt Rate 12; Glucose 159 mg/dL (65-110); Magnesium 2.4 mg/dL (1.6-2.3); Phosphorus 3.6 mg/dL (2.5-4.5); Potassium 4.6 mmol/L (3.4-5.0); Sodium 131 mmol/L (137-145)
[2024-06-07 06:14] LABS: Vancomycin Random 19.6 ug/mL (10-20)
[2024-06-07] MEDS: UMECLIDINIUM BROMIDE 62.5 MCG ELLIPTA 1 PUFF INHALATION (07:15)
[2024-06-07] MEDS: FLUTICASONE/SALMETEROL 115-21 MCG INHALER 1 PUFF 2 PUFF INHALATION (07:25)
--- NOTE | 2024-06-07 08:56 | P.PNINT_ITS ---
Progress Note: A&P Assessment and Plan (1) Acute respiratory failure: Code(s): J96.00 - Acute respiratory failure, unspecified whether with hypoxia or hypercapnia Status: Acute Assessment and Plan: Patient with increasing oxygen requirements in the last 24 hours, brought to the ICU after midnight on 06/05/2024, chest x-ray showed bilateral diffuse pulmonary infiltrates/pulmonary edema. Patient was placed on BiPAP. ABG showed hypercapnic and hypoxemic respiratory failure -etiology likely related to pulmonary edema, pneumonia, ARDS -06/05: patient intubated for impending respiratory failure. Intubation was slightly challenging secondary to body habitus, small mouth, large tongue, redundant tissue in the hypopharynx and anterior vocal cords requiring cricoid pressure and use of glide scope. -patient placed on CMV mode of ventilation, peep of 14, 60% FiO2 -chest x-ray and ABGs reviewed, ventilator adjusted -continue bronchodilators -continue steroids for pneumonia - fentanyl and Versed infusion for analgosedation, will maintain RASS of -2 -daily SBT and SAT (2) Septic shock: Code(s): A41.9 - Sepsis, unspecified organism; R65.21 - Severe sepsis with septic shock Status: Acute Assessment and Plan: Septic shock could be related to UTI, pneumonia -patient was hypotensive in the intermediate Unit and was transferred to the ICU which she received fluids, albumin -continue norepinephrine, will maintain MAP > 65 mmHg or SBP > 100 mmHg adequate end organ perfusion -off vasopressin since 06/06/2024 evening -patient is on vancomycin and cefepime -fluconazole was discontinued given her renal dysfunction -continue stress dose steroids -lactic acid has normalized (3) JOVI (acute kidney injury): Code(s): N17.9 - Acute kidney failure, unspecified Status: Acute Assessment and Plan: Patient with acute kidney injury, this morning her creatinine is 4.60 (creatinine on admission on 06/02/2024 was 2.10 and her creatinine on 04/26/2024 was 0.90) -etiology for acute kidney injury could be multifactorial, hypotension, shock, sepsis, UTI/pneumonia, hypoxia,? SLE flare, CHF, -CK levels are within normal limits -urine eosinophils were negative -urine electrolytes showed prerenal picture, patient seems to be volume overloaded -was given IV fluids and albumin overnight, will hold fluids for now -discussed with pasteurizing supervisor at [facility], feels that the patient is unstable to be transferred at this time for CRRT, recommended conventional dialysis. -discussed with waste machine operator at [facility], agrees to conventional dialysis at this time -06/05: dialysis catheter was placed in the right IJ and exchange for the central line -06/05: Initiate dialysis, with 3000 mL of fluid removal -06/06: Dialysis with 3000 mL in fluid removal -06/07: Discussed with Nephrology, will dialyze patient again with fluid removal (4) Pulmonary edema: Code(s): J81.1 - Chronic pulmonary edema Status: Acute Assessment and Plan: Pulmonary edema likely related to acute kidney injury, ARDS, -did not respond to Bumex -continue fluid removal with dialysis (5) Type 2 diabetes mellitus: Code(s): E11.9 - Type 2 diabetes mellitus without complications Status: Acute Assessment and Plan: SSI and accucheks HbA1C is 5.7 this admission (6) Afib: Code(s): I48.91 - Unspecified atrial fibrillation Status: Acute Assessment and Plan: continue amiodarone (7) SLE (systemic lupus erythematosus): Code(s): M32.9 - Systemic lupus erythematosus, unspecified Status: Acute Assessment and Plan: ? SLE flare Continue stress dose steroids (8) Liver cirrhosis secondary to HOFFMANN: Code(s): K75.81 - Nonalcoholic steatohepatitis (HOFFMANN); K74.60 - Unspecified cirrhosis of liver Status: Acute Assessment and Plan: Mild elevation in LFTs, which are improving -continue to monitor (9) GERD (gastroesophageal reflux disease): Code(s): K21.9 - Gastro-esophageal reflux disease without esophagitis Status: Acute Assessment and Plan: Continue Protonix (10) Morbid obesity with BMI of 50.0-59.9, adult: Code(s): E66.01 - Morbid (severe) obesity due to excess calories; Z68.43 - Body mass index [BMI] 50.0-59.9, adult Status: Acute Assessment and Plan: Once extubated she will need lifestyle changes Plan DVT prophylaxis: Eliquis Stress ulcer prophylaxis: Protonix Nutrition: Will start trickle feeds Code Status: Full code Critical Care Time Spent: 34 minutes 06/05: Discussed with JAMES Blunt, patient's sister in the conference room updated with patient's condition and plan of care. The POA is aware that patient is significantly ill and at condition is guarded. I also explained to her that we initiated transfer to [facility] but given her increased ventilatory support, the pasteurizing supervisor at [facility] recommended starting conventional dialysis over [facility]. I answered all her questions. Discussed with patient's sister JAMES Blunt, on the phone and updated with patient's condition and plan of care. I answered all questions Due to a high probability of clinically significant, life threatening deterioration, the patient required my highest level of preparedness to intervene emergently and I personally spent this critical care time directly and personally managing the patient. This critical care time included obtaining a history; examining the patient; pulse oximetry; ordering and review of studies; arranging urgent treatment with development of a management plan; evaluation of patient's response to treatment; frequent reassessment; and discussions with other providers. It was exclusive of separately billable procedures and treating other patients and teaching time. Please see Assessment and Plan section and the rest of the note for further information on patient assessment and treatment This dictation may have been done utilizing a voice recognition system. Attempts have been made to correct errors. However, there may be uncorrected grammatical, spelling, and recognitions errors present. Subjective Date/time seen: 06/07/24 08:56 Interval history: Reason for consult: Acute respiratory failure, septic shock, acute kidney injury, pulmonary edema 06/05: Intubated 06/06/2024: Patient seen and examined the ICU, remains intubated on CMV mode of ventilation, peep of 14, 60% FiO2. Sedated with fentanyl and Versed infusions, patient open eyes but does not follow simple commands. Patient had 3000 mL in fluid removal with dialysis yesterday Patient is afebrile, only had 150 mL of urine overnight. White count improving, potassium and lactic acid are normal, bilirubin and LFTs trending down. Patient currently on Levophed at 6 mcg/min, off vasopressin Review of Systems Review of Systems: ROS unobtainable: Yes unobtainable due to endotracheal tube, unobtainable due to medical condition and unobtainable due to mental status Exam Narrative: General: Morbidly obese female currently intubated and sedated in no acute distress HEENT:? Pupils equal and reactive bilaterally, sclera is clear, ETT in place Neck:, short and thick neck, Respiratory:? Decreased and coarse breath sounds bilaterally, no wheezing, Cardiac:? S1-S2 is normal, regular rate and rhythm Abdomen:? Morbid obesity, soft, hypoactive bowel sounds Extremities:? Bilateral lower extremity pitting edema up to the thighs, decrease d pedal pulses. Right calf is erythematous, warm Neuro:? Patient is intubated, sedated, patient opens her eyes to name, does not follow simple commands at this time. Skin:? Erythema in the intertriginous region and under her pannus Psych:? Unable to assess at this time Objective Data Vital Signs Vital Signs: Vital Signs - 24 hr 06/06/24 09:00 06/06/24 09:09 06/06/24 09:10 Temperature Pulse Rate 67 63 63 Respiratory Rate Blood Pressure 103/47 L Pulse Oximetry Oxygen Delivery Fraction of Inspired Oxygen 06/06/24 10:00 06/06/24 10:00 06/06/24 09:15 Temperature Pulse Rate 60 60 63 Respiratory Rate Blood Pressure 114/47 L 117/48 L 113/48 L Pulse Oximetry Oxygen Delivery Fraction of Inspired Oxygen 06/06/24 09:45 06/06/24 09:30 06/06/24 09:00 Temperature Pulse Rate 61 62 64 Respiratory Rate 64 H Blood Pressure 120/50 L 117/50 L 114/48 L Pulse Oximetry 99 Oxygen Delivery Fraction of Inspired Oxygen 06/06/24 10:00 06/06/24 10:00 06/06/24 10:00 Temperature Pulse Rate 61 61 61 Respiratory Rate 28 H Blood Pressure 107/44 L 107/44 L 122/51 L Pulse Oximetry 99 Oxygen Delivery Fraction of Inspired Oxygen 06/06/24 11:00 06/06/24 11:23 06/06/24 11:45 Temperature Pulse Rate 60 60 60 Respiratory Rate Blood Pressure 121/51 L 120/50 L 118/48 L Pulse Oximetry Oxygen Delivery Fraction of Inspired Oxygen 06/06/24 12:00 06/06/24 12:15 06/06/24 10:15 Temperature Pulse Rate 60 60 61 Respiratory Rate Blood Pressure 121/49 L 122/49 L 123/51 L Pulse Oximetry Oxygen Delivery Fraction of Inspired Oxygen 06/06/24 10:30 06/06/24 10:45 06/06/24 10:00 Temperature Pulse Rate 60 60 60 Respiratory Rate Blood Pressure 123/50 L 122/51 L Pulse Oximetry Oxygen Delivery Fraction of Inspired Oxygen 06/06/24 11:00 06/06/24 11:00 06/06/24 11:15 Temperature Pulse Rate 60 60 60 Respiratory Rate 28 H Blood Pressure 119/50 L 121/49 L 151/50 H Pulse Oximetry 100 Oxygen Delivery Fraction of Inspired Oxygen 06/06/24 11:13 06/06/24 12:23 06/06/24 12:30 Temperature 97.5 F L Pulse Rate 60 60 60 Respiratory Rate 60 H Blood Pressure 121/49 L 124/51 L Pulse Oximetry 99 99 Oxygen Delivery Mechanical Ventilation Fraction of Inspired Oxygen 80 06/06/24 12:00 06/06/24 12:00 06/06/24 12:00 Temperature Pulse Rate 60 60 Respiratory Rate 60 H Blood Pressure Pulse Oximetry 99 Oxygen Delivery Mechanical Ventilation Fraction of Inspired Oxygen 80 80 06/06/24 12:00 06/06/24 13:00 06/06/24 13:35 Temperature 98.6 F Pulse Rate 118 H 63 63 Respiratory Rate 18 28 H Blood Pressure 126/89 125/54 L 125/56 L Pulse Oximetry 100 99 Oxygen Delivery Fraction of Inspired Oxygen 06/06/24 13:45 06/06/24 13:55 06/06/24 14:03 Temperature Pulse Rate 60 65 62 Respiratory Rate Blood Pressure 117/48 L 108/44 L 109/43 L Pulse Oximetry Oxygen Delivery Fraction of Inspired Oxygen 06/06/24 14:16 06/06/24 14:18 06/06/24 14:18 Temperature Pulse Rate 60 60 60 Respiratory Rate Blood Pressure 96/37 L 106/41 L Pulse Oximetry Oxygen Delivery Fraction of Inspired Oxygen 06/06/24 13:42 06/06/24 13:44 06/06/24 13:55 Temperature Pulse Rate 68 60 65 Respiratory Rate 28 H 28 H Blood Pressure Pulse Oximetry 97 Oxygen Delivery Mechanical Ventilation Fraction of Inspired Oxygen 60 06/06/24 14:00 06/06/24 14:00 06/06/24 15:00 Temperature 98.6 F Pulse Rate 63 63 62 Respiratory Rate 28 H 28 H Blood Pressure 115/46 L 122/50 L Pulse Oximetry 98 98 Oxygen Delivery Fraction of Inspired Oxygen 06/06/24 15:22 06/06/24 15:39 06/06/24 16:17 Temperature Pulse Rate 59 L 60 60 Respiratory Rate Blood Pressure 124/52 L 108/42 L 124/50 L Pulse Oximetry Oxygen Delivery Fraction of Inspired Oxygen 06/06/24 16:00 06/06/24 16:00 06/06/24 16:00 Temperature Pulse Rate 60 60 Respiratory Rate 28 H Blood Pressure Pulse Oximetry 98 Oxygen Delivery Mechanical Ventilation Fraction of Inspired Oxygen 60 60 06/06/24 16:00 06/06/24 16:41 06/06/24 17:11 Temperature 98.6 F Pulse Rate 60 60 60 Respiratory Rate 28 H Blood Pressure 115/46 L 116/47 L Pulse Oximetry 97 96 Oxygen Delivery Mechanical Ventilation Fraction of Inspired Oxygen 60 06/06/24 17:26 06/06/24 17:00 06/06/24 10:00 Temperature Pulse Rate 62 60 60 Respiratory Rate 28 H Blood Pressure 115/47 L 111/44 L Pulse Oximetry 99 Oxygen Delivery Fraction of Inspired Oxygen 06/06/24 12:00 06/06/24 14:00 06/06/24 16:00 Temperature Pulse Rate 60 60 60 Respiratory Rate Blood Pressure Pulse Oximetry Oxygen Delivery Fraction of Inspired Oxygen 06/06/24 17:51 06/06/24 10:00 06/06/24 12:00 Temperature Pulse Rate 60 60 61 Respiratory Rate 28 H 28 H Blood Pressure 118/47 L Pulse Oximetry Oxygen Delivery Fraction of Inspired Oxygen 06/06/24 14:00 06/06/24 16:00 06/06/24 10:00 Temperature Pulse Rate 60 60 60 Respiratory Rate 28 H 28 H 28 H Blood Pressure Pulse Oximetry Oxygen Delivery Fraction of Inspired Oxygen 06/06/24 12:00 06/06/24 14:00 06/06/24 16:00 Temperature Pulse Rate 60 60 60 Respiratory Rate 28 H 28 H 28 H Blood Pressure Pulse Oximetry Oxygen Delivery Fraction of Inspired Oxygen 06/06/24 18:00 06/06/24 18:01 06/06/24 18:01 Temperature Pulse Rate 60 60 60 Respiratory Rate 28 H 28 H Blood Pressure 116/46 L Pulse Oximetry Oxygen Delivery Fraction of Inspired Oxygen 06/06/24 18:02 06/06/24 18:00 06/06/24 18:00 Temperature Pulse Rate 60 60 60 Respiratory Rate 28 H Blood Pressure 115/47 L 117/47 L Pulse Oximetry 99 Oxygen Delivery Fraction of Inspired Oxygen 06/06/24 18:26 06/06/24 18:32 06/06/24 20:00 Temperature Pulse Rate 62 60 60 Respiratory Rate Blood Pressure 112/46 L 110/45 L 107/45 L Pulse Oximetry Oxygen Delivery Fraction of Inspired Oxygen 06/06/24 20:00 06/06/24 20:00 06/06/24 20:00 Temperature Pulse Rate 60 60 60 Respiratory Rate 28 H 28 H Blood Pressure 107/45 L Pulse Oximetry Oxygen Delivery Fraction of Inspired Oxygen 06/06/24 20:23 06/06/24 20:23 06/06/24 20:39 Temperature Pulse Rate 60 60 60 Respiratory Rate Blood Pressure Pulse Oximetry 96 Oxygen Delivery Mechanical Ventilation Fraction of Inspired Oxygen 60 06/06/24 20:44 06/06/24 19:00 06/06/24 20:00 Temperature 99.6 F Pulse Rate 60 60 60 Respiratory Rate 28 H 28 H 28 H Blood Pressure 103/38 L 107/45 L Pulse Oximetry 99 96 Oxygen Delivery Fraction of Inspired Oxygen 06/06/24 20:00 06/06/24 20:00 06/06/24 21:00 Temperature Pulse Rate 60 60 Respiratory Rate 28 H 28 H Blood Pressure 111/44 L Pulse Oximetry 96 96 Oxygen Delivery Mechanical Ventilation Fraction of Inspired Oxygen 60 60 06/06/24 22:00 06/06/24 22:00 06/06/24 22:00 Temperature Pulse Rate 60 60 60 Respiratory Rate 28 H 28 H Blood Pressure 115/46 L 115/46 L Pulse Oximetry 95 Oxygen Delivery Fraction of Inspired Oxygen 06/06/24 22:00 06/06/24 22:00 06/06/24 20:00 Temperature Pulse Rate 60 60 60 Respiratory Rate 28 H Blood Pressure 115/46 L Pulse Oximetry Oxygen Delivery Fraction of Inspired Oxygen 06/06/24 22:00 06/06/24 22:49 06/06/24 23:00 Temperature 99.3 F Pulse Rate 60 60 60 Respiratory Rate 28 H Blood Pressure 109/42 L Pulse Oximetry 95 95 Oxygen Delivery Mechanical Ventilation Fraction of Inspired Oxygen 60 06/07/24 00:00 06/07/24 00:00 06/07/24 00:00 Temperature Pulse Rate 60 60 Respiratory Rate 28 H 28 H Blood Pressure 117/45 L Pulse Oximetry 95 95 Oxygen Delivery Mechanical Ventilation Fraction of Inspired Oxygen 60 60 06/07/24 00:00 06/07/24 00:00 06/07/24 00:00 Temperature Pulse Rate 60 60 60 Respiratory Rate 28 H 28 H Blood Pressure 117/44 L Pulse Oximetry Oxygen Delivery Fraction of Inspired Oxygen 06/07/24 00:00 06/07/24 00:50 06/07/24 00:00 Temperature Pulse Rate 60 60 60 Respiratory Rate Blood Pressure 117/44 L 121/46 L Pulse Oximetry Oxygen Delivery Fraction of Inspired Oxygen 06/07/24 01:35 06/07/24 02:00 06/07/24 02:00 Temperature Pulse Rate 60 60 60 Respiratory Rate 28 H Blood Pressure 120/45 L 113/42 L Pulse Oximetry 95 Oxygen Delivery Fraction of Inspired Oxygen 06/07/24 02:00 06/07/24 02:00 06/07/24 02:00 Temperature Pulse Rate 60 60 60 Respiratory Rate 28 H 28 H Blood Pressure 117/42 L Pulse Oximetry Oxygen Delivery Fraction of Inspired Oxygen 06/07/24 02:29 06/07/24 02:30 06/07/24 02:40 Temperature Pulse Rate 60 61 60 Respiratory Rate 28 H Blood Pressure 119/45 L Pulse Oximetry 95 Oxygen Delivery Mechanical Ventilation Fraction of Inspired Oxygen 60 06/07/24 02:47 06/07/24 03:17 06/07/24 03:17 Temperature Pulse Rate 61 60 60 Respiratory Rate 28 H 28 H 28 H Blood Pressure Pulse Oximetry Oxygen Delivery Fraction of Inspired Oxygen 06/07/24 04:00 06/07/24 04:00 06/07/24 04:00 Temperature 98.6 F Pulse Rate 60 60 Respiratory Rate 28 H 28 H Blood Pressure 111/41 L Pulse Oximetry 95 95 Oxygen Delivery Mechanical Ventilation Fraction of Inspired Oxygen 60 60 06/07/24 04:00 06/07/24 05:36 06/07/24 04:00 Temperature Pulse Rate 60 60 60 Respiratory Rate Blood Pressure 114/41 L 113/45 L Pulse Oximetry Oxygen Delivery Fraction of Inspired Oxygen 06/07/24 05:36 06/07/24 06:00 06/07/24 06:00 Temperature Pulse Rate 60 60 60 Respiratory Rate 28 H Blood Pressure 114/41 L 114/43 L Pulse Oximetry Oxygen Delivery Fraction of Inspired Oxygen 06/07/24 06:00 06/07/24 05:43 06/07/24 06:00 Temperature Pulse Rate 60 61 60 Respiratory Rate 28 H Blood Pressure Pulse Oximetry 95 Oxygen Delivery Mechanical Ventilation Fraction of Inspired Oxygen 60 06/07/24 06:00 06/07/24 06:30 06/07/24 02:00 Temperature Pulse Rate 60 60 60 Respiratory Rate 28 H Blood Pressure 113/43 L 111/42 L 117/43 L Pulse Oximetry 95 Oxygen Delivery Fraction of Inspired Oxygen 06/07/24 04:00 06/07/24 04:00 06/07/24 04:00 Temperature Pulse Rate 60 60 60 Respiratory Rate 28 H 28 H Blood Pressure 111/41 L Pulse Oximetry Oxygen Delivery Fraction of Inspired Oxygen 06/07/24 06:00 06/07/24 06:42 06/07/24 07:15 Temperature Pulse Rate 60 60 60 Respiratory Rate Blood Pressure 113/43 L 112/43 L Pulse Oximetry 95 Oxygen Delivery Mechanical Ventilation Fraction of Inspired Oxygen 60 06/07/24 07:15 06/07/24 07:25 06/07/24 07:30 Temperature Pulse Rate 60 60 60 Respiratory Rate 28 H 28 H Blood Pressure 104/39 L Pulse Oximetry Oxygen Delivery Fraction of Inspired Oxygen 06/07/24 08:00 06/07/24 08:00 06/07/24 08:00 Temperature Pulse Rate 60 Respiratory Rate Blood Pressure Pulse Oximetry Oxygen Delivery Mechanical Ventilation Fraction of Inspired Oxygen 60 60 06/07/24 08:00 Temperature 99.3 F Pulse Rate 60 Respiratory Rate 28 H Blood Pressure 125/50 L Pulse Oximetry 95 Oxygen Delivery Fraction of Inspired Oxygen Intake/Output Intake/Output: Intake & Output 06/04/24 06/05/24 06/06/24 06/07/24 23:59 23:59 23:59 23:59 Intake Total 1630 1802.2 1263.6 192.4 Output Total 400 3130 3230 370 Balance 1230 -1327.8 -1966.4 -177.6 Meds/Results Medications: Active Medications Generic Name Dose Route Start Last Admin Trade Name Freq PRN Reason Stop Dose Admin Albuterol/Ipratropium 3 ml 06/05/24 11:15 06/07/24 07:15 Ipratropium 0.5 Mg/Albuterol Sulfate 2.5 Mg Ampul.Neb 3 Ml INHALATION 3 ml Q6HRT JOHN Administration Amiodarone HCl 200 mg 06/02/24 21:00 06/06/24 20:23 Amiodarone Hcl 200 Mg Tablet PO 200 mg Q12HR JOHN Administration Apixaban 5 mg 06/06/24 09:30 06/06/24 20:23 Apixaban 5 Mg Tablet PO 5 mg Q12HR JOHN Administration Dextrose 12.5 gm 06/05/24 11:46 Dextrose 50% 25 Gm/50 Ml Syringe IV PUSH PRN PRN Hypoglycemia Protocol Flecainide Acetate 100 mg 06/02/24 21:00 06/06/24 20:23 Flecainide Acetate 100 Mg Tablet PO 100 mg Q12HR JOHN Administration Gabapentin 200 mg 06/02/24 22:00 06/04/24 21:07 Gabapentin 100 Mg Capsule PO 200 mg Q8HR JOHN Administration Glucagon 1 mg 06/05/24 11:46 Glucagon For Inj 1 Mg Vial IM PRN PRN Hypoglycemia Protocol Glucose 15 gm 06/05/24 11:46 Glucose Oral Gel 15 Gm Of Glucse In 37.5 Gm Tube PO PRN PRN Hypoglycemia Protocol Hydrocortisone Sodium Succinate 100 mg 06/05/24 14:00 06/07/24 05:40 Hydrocortisone Sodium Succinate 100 Mg/2 Ml Vial IV PUSH 100 mg Q8HR JOHN Administration Norepinephrine Bitartrate 8 mg in 250 mls @ 11.25 mls/hr 06/05/24 00:35 06/07/24 07:30 Levophed 8 Mg/D5w 250 Ml IV CONT 6 mcg/min .[id number] JOHN 11.25 mls/hr Titration Protocol 6 MCG/MIN Fentanyl Citrate 2,500 mcg in 250 mls @ 5 mls/hr 06/05/24 08:35 06/07/24 06:00 Fentanyl 2,500 Mcg/Ns 250 Ml IV CONT 50 mcg/hr .Q50H JOHN 5 mls/hr Titration Protocol 50 MCG/HR Midazolam HCl 100 mg in 100 mls @ 2 mls/hr 06/05/24 08:35 06/07/24 06:00 Versed 100 Mg/Ns 100 Ml IV CONT 2 mg/hr .Q50H JOHN 2 mls/hr Titration Protocol 2 MG/HR Dextrose 1,000 mls @ 100 mls/hr 06/05/24 11:46 Dextrose 5% 1,000 Ml IVPB PRN PRN Hypoglycemia Protocol Albumin Human 50 mls @ 999 mls/hr 06/05/24 12:43 06/05/24 17:08 Albutein IVPB 11/14/24 12:42 Infused Q10M PRN Infusion HYPOTENSION Cefepime HCl 1 gm in 50 mls @ 100 mls/hr 06/06/24 16:00 06/06/24 16:50 Maxipime 1 Gm/Ns 50 Ml IVPB Infused Q24H JOHN Infusion Insulin Aspart 3 - 6 units 06/05/24 12:00 06/07/24 05:57 Insulin Aspart (*Bkc) 100 Units/Ml SUB-Q Not Given Q6HR [facility] Protocol Midodrine 10 mg 06/05/24 09:00 06/06/24 16:20 Midodrine Hcl 10 Mg Tablet PO 10 mg TID JOHN Administration Multi-Ingred Cream/Lotion/Oil/Oint 1 applic 06/05/24 09:00 06/06/24 20:24 Mineral Oil/White Petrolatum Ointment EACH EYE 1 applic Q12HR JOHN Administration Pantoprazole Sodium 40 mg 06/06/24 09:00 06/06/24 20:23 Pantoprazole Sodium Iv 40 Mg Vial IV PUSH 40 mg Q12HR JOHN Administration Fluticasone/Salmeterol 2 puff 06/03/24 08:00 06/07/24 07:25 Fluticasone/Salmeterol 115-21 Mcg Inhaler 1 Puff INHALATION 2 puff Q12HRT JOHN Administration Sodium Chloride 10 ml 06/05/24 06:00 06/07/24 05:57 Central Line Flush IV PUSH 10 ml Q8HR JOHN Administration Sodium Chloride 20 ml 06/05/24 03:12 Central Line Flush IV PUSH PRN PRN after blood draws Umeclidinium Rogers 1 puff 06/03/24 08:00 06/07/24 07:15 Umeclidinium Rogers 62.5 Mcg Ellipta INHALATION 1 puff DAILYRT JOHN Administration Vancomycin HCl 1 each 06/05/24 13:14 Vancomycin For Hemodialysis IVPB PRN PRN Vancomycin Protocol Radiology Results: ITS Impressions Renal Ultrasound 06/04/24 15:06 IMPRESSION: 1. Normal kidneys. No hydronephrosis. Chest/Abdomen/Pelvis CT 06/04/24 19:12 IMPRESSION: 1. Diffuse lung disease, consistent with pulmonary edema versus pneumonia. 2. Moderate volume of ascites. Abdomen X-Ray 06/05/24 09:37 IMPRESSION: 1. Lines and tubes all in expected positions. 2. Diffuse patchy bilateral lung disease which could represent pulmonary edema and/or pneumonia. 3. Cardiomegaly. Chest X-Ray 06/07/24 06:14 Impression: Patchy airspace disease throughout both lungs is again present, worst at the left lung base. Correlate for pulmonary edema, infection, ARDS. Support tubes, as above. Labs Labs: Laboratory Results - last 24 hr 06/06/24 06/06/24 06/06/24 11:43 13:27 14:00 WBC RBC Hgb Hct MCV MCH MCHC RDW Plt Count MPV Immature Gran % (Auto) Neut % (Auto) Lymph % (Auto) [place] % (Auto) Eos % (Auto) Baso % (Auto) Lymph # (Auto) [place] # (Auto) Eos # (Auto) Baso # (Auto) Abs Immat Gran (auto) Absolute Neuts (auto) Absolute Nucleated RBC Nucleated RBC % Puncture Site Artline ABG pH 7.440 ABG pCO2 37.9 ABG pO2 133.3 H ABG PO2/FiO2 Ratio 1.67 ABG HCO3 25.2 ABG O2 Saturation 98.8 ABG O2 Content 17.4 ABG Base Excess 1.1 A-a Gradient 397.3 Oxyhemoglobin 98.6 Carboxyhemoglobin 0.3 Methemoglobin 0.2 Reduced Hemoglobin 0.9 Total Hemoglobin 12.4 O2 Delivery Device Ventilator O2 Liters/Min 0.0 Minute Volume Not Reportable Vent Rate 28 Vent Mode Cmv FiO2 80 Tidal Volume 400 PEEP 14 Peak Inspir Pressure Not Reportable Pressure Support 0 Sodium 133 L Potassium 4.4 Chloride 97 L Carbon Dioxide 24 Anion Gap 12 BUN 36 H D Creatinine 3.30 H Estim Creat Clear Calc 30 Estimated GFR 15 L Glucose 193 H POC Capillary Glucose 197 H Lactic Acid Calcium 9.5 Phosphorus Magnesium Total Bilirubin AST ALT Alkaline Phosphatase Total Protein Albumin Random Vancomycin 06/06/24 06/06/24 06/07/24 18:29 23:45 05:49 WBC 11.8 H RBC 3.82 L Hgb 10.5 L Hct 31.8 L MCV 83.2 D MCH 27.5 MCHC 33.0 RDW 17.2 H Plt Count 373 MPV 9.5 Immature Gran % (Auto) 0.9 H Neut % (Auto) 80.2 H Lymph % (Auto) 10.3 L [place] % (Auto) 8.4 Eos % (Auto) 0.0 Baso % (Auto) 0.2 Lymph # (Auto) 1.21 [place] # (Auto) 1.0 H Eos # (Auto) 0.0 Baso # (Auto) 0.0 Abs Immat Gran (auto) 0.11 H Absolute Neuts (auto) 9.4 H Absolute Nucleated RBC 0.000 Nucleated RBC % 0.0 Puncture Site ABG pH ABG pCO2 ABG pO2 ABG PO2/FiO2 Ratio ABG HCO3 ABG O2 Saturation ABG O2 Content ABG Base Excess A-a Gradient Oxyhemoglobin Carboxyhemoglobin Methemoglobin Reduced Hemoglobin Total Hemoglobin O2 Delivery Device O2 Liters/Min Minute Volume Vent Rate Vent Mode FiO2 Tidal Volume PEEP Peak Inspir Pressure Pressure Support Sodium 131 L Potassium 4.6 Chloride 97 L Carbon Dioxide 26 Anion Gap 8 BUN 49 H D Creatinine 4.00 H Estim Creat Clear Calc 25 Estimated GFR 12 L Glucose 159 H POC Capillary Glucose 183 H 167 H Lactic Acid 1.3 Calcium 9.6 Phosphorus 3.6 Magnesium 2.4 H Total Bilirubin 1.9 H AST 74 H ALT 40 H Alkaline Phosphatase 192 H Total Protein 6.0 L Albumin 3.1 L Random Vancomycin 19.6 06/07/24 05:56 WBC RBC Hgb Hct MCV MCH MCHC RDW Plt Count MPV Immature Gran % (Auto) Neut % (Auto) Lymph % (Auto) [place] % (Auto) Eos % (Auto) Baso % (Auto) Lymph # (Auto) [place] # (Auto) Eos # (Auto) Baso # (Auto) Abs Immat Gran (auto) Absolute Neuts (auto) Absolute Nucleated RBC Nucleated RBC % Puncture Site Artline ABG pH 7.490 H ABG pCO2 35.3 ABG pO2 92.7 ABG PO2/FiO2 Ratio 1.54 ABG HCO3 26.3 H ABG O2 Saturation 97.6 ABG O2 Content 21.5 ABG Base Excess 3.3 A-a Gradient 296.3 Oxyhemoglobin 96.7 Carboxyhemoglobin 0.7 Methemoglobin 0.2 Reduced Hemoglobin 2.4 Total Hemoglobin 15.8 O2 Delivery Device Ventilator O2 Liters/Min Not Reportable Minute Volume Not Reportable Vent Rate 28 Vent Mode Cmv FiO2 60 Tidal Volume 400 PEEP 14 Peak Inspir Pressure Not Reportable Pressure Support Not Reportable Sodium Potassium Chloride Carbon Dioxide Anion Gap BUN Creatinine Estim Creat Clear Calc Estimated GFR Glucose POC Capillary Glucose 157 H Lactic Acid Calcium Phosphorus Magnesium Total Bilirubin AST ALT Alkaline Phosphatase Total Protein Albumin Random Vancomycin Quality VTE Prophylaxis VTE prophylaxis: pharmacologic ordered
--- NOTE | 2024-06-07 09:12 | P.PNNP_ITS ---
Progress Note: A&P Assessment and Plan (1) JOVI (acute kidney injury): Code(s): N17.9 - Acute kidney failure, unspecified Status: Acute Assessment and Plan: * normal creatinine ~ 1 month ago * admitted with a creatinine of 2.1mg/dl with ongoing worsening noted * etiology not clear but several possibilities: * hemodynamic instability/shock * early sepsis * infection (UTI +/- pneumonia) -- although culture negative to date * hypoxia * SLE flare (?) * other? * evaluation to date noted: * renal ultrasound negative for obstruction * urine eosinophils negative * urine electrolytes pre-renal (in spite of evidence of volume overload) * CPK low * moderate proteinuria (~ 600mg) * UA with blood and protein (and negative urine culture) * complements normal (arguing against lupus flare) * initiated on dialysis yesterday due to worsening respiratory status and volume overload * HD on 06/05 and 06/06 * DUF today * follow repeat labs and UOP for potential renal recovery (2) Acute respiratory failure: Code(s): J96.00 - Acute respiratory failure, unspecified whether with hypoxia or hypercapnia Status: Acute Assessment and Plan: * intubated on 06/05: * failed BiPAP therapy * impending respiratory failure (given hypoxia + hypercapnea) * suspect secondary to pulmonary edema, pneumonia, and possible early ARDS * remains on ventilator support * on bronchodilators and steroids * fluid removal with dialysis * follow respiratory status (3) Septic shock: Code(s): A41.9 - Sepsis, unspecified organism; R65.21 - Severe sepsis with septic shock Status: Acute Assessment and Plan: * possible related to pneumonia versus UTI * initiated on vasopressor therapy * follow culture data * on antibiotics * stress dose steroids * follow trend of hemodynamics (4) Pulmonary edema: Code(s): J81.1 - Chronic pulmonary edema Status: Acute Assessment and Plan: * contributing to #2 * secondary to JOVI/ARF but ARDS possibly playing a role * Pulmonary edema likely related to acute kidney injury, ARDS * fluid removal with dialysis as tolerated (5) SLE (systemic lupus erythematosus): Code(s): M32.9 - Systemic lupus erythematosus, unspecified Status: Acute Assessment and Plan: * ? SLE flare * getting stress dose steroids * seems less likely based on evidence to date (6) UTI (urinary tract infection): Code(s): N39.0 - Urinary tract infection, site not specified Status: Ruled-out Assessment and Plan: * admission UA highly suggestive * follow-up on culture data - urine culture negative * on antibiotics (7) Type 2 diabetes mellitus: Code(s): E11.9 - Type 2 diabetes mellitus without complications Status: Acute Assessment and Plan: * follow accu-cheks * glycemic control per icu clerk/hospitalist Will continue to follow. Subjective Date/time seen: 06/07/24 09:12 Interval history: Follow-up for acute kidney injury/acute renal failure. Tolerated dialysis yesterday and tolerating dry ultrafiltration treament at the time of my visit (seen on DUF at 09:00AM); remains intubated/sedated on mechanical ventilator support; remains on vasopressor support as well; minimal urine output noted. Exam Narrative: General: large female intubated/sedated on mechanical ventilator Heart: normal S1 and S2; no rub Lungs: coarse with some scattered crackles Abdomen: obese but soft, nontender, nondistended, positive bowel sounds Extremities: no cyanosis or clubbing; 2 - 3+ edema Skin: no rash Objective Data Vital Signs Vital Signs: Vital Signs Temp Pulse Resp BP Pulse Ox O2 Del Method FiO2 06/07/24 09:00 60 114/43 L 06/07/24 08:56 60 117/44 L 06/07/24 08:56 60 06/07/24 08:45 98.5 F 61 28 H 117/44 L 95 06/07/24 08:00 99.3 F 60 28 H 125/50 L 95 06/07/24 08:00 60 06/07/24 08:00 Mechanical Ventilation 60 06/07/24 08:00 60 06/07/24 07:30 60 104/39 L 06/07/24 07:25 60 28 H 06/07/24 07:15 60 28 H 06/07/24 07:15 60 95 Mechanical Ventilation 60 06/07/24 06:42 60 112/43 L 06/07/24 06:00 60 113/43 L 06/07/24 04:00 60 111/41 L 06/07/24 04:00 60 28 H 06/07/24 04:00 60 28 H 06/07/24 02:00 60 117/43 L 06/07/24 06:30 60 111/42 L 06/07/24 06:00 60 28 H 113/43 L 95 06/07/24 06:00 60 06/07/24 05:43 61 95 Mechanical Ventilation 60 06/07/24 06:00 60 28 H 06/07/24 06:00 60 28 H 06/07/24 06:00 60 114/43 L 06/07/24 05:36 60 114/41 L 06/07/24 04:00 60 113/45 L 06/07/24 05:36 60 114/41 L 06/07/24 04:00 60 06/07/24 04:00 60 28 H 95 Mechanical Ventilation 60 06/07/24 04:00 60 06/07/24 04:00 98.6 F 60 28 H 111/41 L 95 06/07/24 03:17 60 28 H 06/07/24 03:17 60 28 H 06/07/24 02:47 61 28 H 06/07/24 02:40 60 28 H 06/07/24 02:30 61 95 Mechanical Ventilation 60 06/07/24 02:29 60 119/45 L 06/07/24 02:00 60 117/42 L 06/07/24 02:00 60 28 H 06/07/24 02:00 60 28 H 06/07/24 02:00 60 28 H 113/42 L 95 06/07/24 02:00 60 06/07/24 01:35 60 120/45 L 06/07/24 00:00 60 06/07/24 00:50 60 121/46 L 06/07/24 00:00 60 117/44 L 06/07/24 00:00 60 28 H 06/07/24 00:00 60 28 H 06/07/24 00:00 60 117/44 L 06/07/24 00:00 60 28 H 95 Mechanical Ventilation 60 06/07/24 00:00 60 06/07/24 00:00 60 28 H 117/45 L 95 06/06/24 23:00 99.3 F 60 28 H 109/42 L 95 06/06/24 22:49 60 95 Mechanical Ventilation 60 06/06/24 22:00 60 06/06/24 20:00 60 06/06/24 22:00 60 115/46 L 06/06/24 22:00 60 28 H 06/06/24 22:00 60 28 H 10/16/24 22:00 60 115/46 L 06/06/24 22:00 60 28 H 115/46 L 95 06/06/24 21:00 60 28 H 111/44 L 96 06/06/24 20:00 60 28 H 96 Mechanical Ventilation 60 06/06/24 20:00 60 06/06/24 20:00 99.6 F 60 28 H 107/45 L 96 06/06/24 19:00 60 28 H 103/38 L 99 06/06/24 20:44 60 28 H 06/06/24 20:39 60 96 Mechanical Ventilation 60 06/06/24 20:23 60 06/06/24 20:23 60 06/06/24 20:00 60 107/45 L 06/06/24 20:00 60 28 H 06/06/24 20:00 60 28 H 06/06/24 20:00 60 107/45 L 06/06/24 18:32 60 110/45 L 06/06/24 18:26 62 112/46 L 06/06/24 18:00 60 28 H 117/47 L 99 06/06/24 18:00 60 06/06/24 18:02 60 115/47 L 06/06/24 18:01 60 28 H 06/06/24 18:01 60 28 H 06/06/24 18:00 60 116/46 L 06/06/24 16:00 60 28 H 06/06/24 14:00 60 28 H 06/06/24 12:00 60 28 H 06/06/24 16:00 60 28 H 06/06/24 14:00 60 28 H 06/06/24 12:00 61 28 H 06/06/24 17:51 60 118/47 L 06/06/24 16:00 60 06/06/24 14:00 60 06/06/24 12:00 60 06/06/24 17:00 60 28 H 111/44 L 99 06/06/24 17:26 62 115/47 L 06/06/24 17:11 60 96 Mechanical Ventilation 60 06/06/24 16:41 60 116/47 L 06/06/24 16:00 98.6 F 60 28 H 115/46 L 97 06/06/24 16:00 60 06/06/24 16:00 60 28 H 98 Mechanical Ventilation 60 06/06/24 16:00 60 06/06/24 16:17 60 124/50 L 06/06/24 15:39 60 108/42 L 06/06/24 15:22 59 L 124/52 L 06/06/24 15:00 98.6 F 62 28 H 122/50 L 98 06/06/24 14:00 63 28 H 115/46 L 98 06/06/24 14:00 63 06/06/24 13:55 65 28 H 06/06/24 13:44 60 97 Mechanical Ventilation 60 06/06/24 13:42 68 28 H 06/06/24 14:18 60 106/41 L 06/06/24 14:18 60 06/06/24 14:16 60 96/37 L 06/06/24 14:03 62 109/43 L 06/06/24 13:55 65 108/44 L 06/06/24 13:45 60 117/48 L 06/06/24 13:35 63 125/56 L 06/06/24 13:00 63 28 H 125/54 L 99 06/06/24 12:00 98.6 F 118 H 18 126/89 100 06/06/24 12:00 80 06/06/24 12:00 60 60 H 99 Mechanical Ventilation 80 06/06/24 12:00 60 06/06/24 12:30 97.5 F L 60 60 H 124/51 L 99 06/06/24 12:23 60 121/49 L 06/06/24 11:13 60 99 Mechanical Ventilation 80 06/06/24 11:15 60 151/50 H 06/06/24 11:00 60 121/49 L 06/06/24 11:00 60 28 H 119/50 L 100 06/06/24 10:45 60 122/51 L 06/06/24 10:30 60 123/50 L 06/06/24 10:15 61 123/51 L 06/06/24 12:15 60 122/49 L 06/06/24 12:00 60 121/49 L 06/06/24 11:45 60 118/48 L 06/06/24 11:23 60 120/50 L 06/06/24 11:00 60 121/51 L Intake/Output Intake/Output: Intake & Output 10/14/24 06/05/24 06/06/24 06/07/24 23:59 23:59 23:59 23:59 Intake Total 1630 1802.2 1263.6 212.0 Output Total 400 3130 3230 370 Balance 1230 -1327.8 -1966.4 -158.0 Meds/Results Medications: Active Medications Generic Name Dose Route Start Last Admin Trade Name Freq PRN Reason Stop Dose Admin Albuterol/Ipratropium 3 ml 06/05/24 11:15 06/07/24 07:15 Ipratropium 0.5 Mg/Albuterol Sulfate 2.5 Mg Ampul.Neb 3 Ml INHALATION 3 ml Q6HRT JOHN Administration Amiodarone HCl 200 mg 06/02/24 21:00 06/06/24 20:23 Amiodarone Hcl 200 Mg Tablet PO 200 mg Q12HR JOHN Administration Apixaban 5 mg 06/06/24 09:30 06/06/24 20:23 Apixaban 5 Mg Tablet PO 5 mg Q12HR JOHN Administration Dextrose 12.5 gm 06/05/24 11:46 Dextrose 50% 25 Gm/50 Ml Syringe IV PUSH PRN PRN Hypoglycemia Protocol Flecainide Acetate 100 mg 06/02/24 21:00 06/06/24 20:23 Flecainide Acetate 100 Mg Tablet PO 100 mg Q12HR JOHN Administration Gabapentin 200 mg 06/02/24 22:00 06/04/24 21:07 Gabapentin 100 Mg Capsule PO 200 mg Q8HR JOHN Administration Glucagon 1 mg 06/05/24 11:46 Glucagon For Inj 1 Mg Vial IM PRN PRN Hypoglycemia Protocol Glucose 15 gm 06/05/24 11:46 Glucose Oral Gel 15 Gm Of Glucse In 37.5 Gm Tube PO PRN PRN Hypoglycemia Protocol Hydrocortisone Sodium Succinate 100 mg 06/05/24 14:00 06/07/24 05:40 Hydrocortisone Sodium Succinate 100 Mg/2 Ml Vial IV PUSH 100 mg Q8HR JOHN Administration Norepinephrine Bitartrate 8 mg in 250 mls @ 11.25 mls/hr 06/05/24 00:35 06/07/24 08:00 Levophed 8 Mg/D5w 250 Ml IV CONT 6 mcg/min .[id number] JOHN 11.25 mls/hr Titration Protocol 6 MCG/MIN Fentanyl Citrate 2,500 mcg in 250 mls @ 5 mls/hr 06/05/24 08:35 06/07/24 08:00 Fentanyl 2,500 Mcg/Ns 250 Ml IV CONT 50 mcg/hr .Q50H JOHN 5 mls/hr Titration Protocol 50 MCG/HR Midazolam HCl 100 mg in 100 mls @ 2 mls/hr 06/05/24 08:35 06/07/24 08:00 Versed 100 Mg/Ns 100 Ml IV CONT 2 mg/hr .Q50H JOHN 2 mls/hr Titration Protocol 2 MG/HR Dextrose 1,000 mls @ 100 mls/hr 06/05/24 11:46 Dextrose 5% 1,000 Ml IVPB PRN PRN Hypoglycemia Protocol Albumin Human 50 mls @ 999 mls/hr 06/05/24 12:43 06/05/24 17:08 Albutein IVPB 07/05/24 12:42 Infused Q10M PRN Infusion HYPOTENSION Cefepime HCl 1 gm in 50 mls @ 100 mls/hr 06/06/24 16:00 06/06/24 16:50 Maxipime 1 Gm/Ns 50 Ml IVPB Infused Q24H JOHN Infusion Vancomycin HCl 1,000 mg in 250 mls @ 250 mls/hr 06/07/24 14:00 Vancomycin 1,000 Mg/Ns 250 Ml IVPB 06/07/24 14:59 ONCE ONE Insulin Aspart 3 - 6 units 06/05/24 12:00 06/07/24 05:57 Insulin Aspart (*Bkc) 100 Units/Ml SUB-Q Not Given Q6HR JOHN Protocol Midodrine 10 mg 06/05/24 09:00 06/06/24 16:20 Midodrine Hcl 10 Mg Tablet PO 10 mg TID JOHN Administration Multi-Ingred Cream/Lotion/Oil/Oint 1 applic 06/05/24 09:00 06/06/24 20:24 Mineral Oil/White Petrolatum Ointment EACH EYE 1 applic Q12HR JOHN Administration Pantoprazole Sodium 40 mg 06/06/24 09:00 06/06/24 20:23 Pantoprazole Sodium Iv 40 Mg Vial IV PUSH 40 mg Q12HR JOHN Administration Fluticasone/Salmeterol 2 puff 06/03/24 08:00 06/07/24 07:25 Fluticasone/Salmeterol 115-21 Mcg Inhaler 1 Puff INHALATION 2 puff Q12HRT JOHN Administration Sodium Chloride 10 ml 06/05/24 06:00 06/07/24 05:57 Central Line Flush IV PUSH 10 ml Q8HR JOHN Administration Sodium Chloride 20 ml 06/05/24 03:12 Central Line Flush IV PUSH PRN PRN after blood draws Umeclidinium [place] 1 puff 06/03/24 08:00 06/07/24 07:15 Umeclidinium [place] 62.5 Mcg Ellipta INHALATION 1 puff DAILYRT JOHN Administration Vancomycin HCl 1 each 06/05/24 13:14 Vancomycin For Hemodialysis IVPB PRN PRN Vancomycin Protocol Radiology Results: ITS Impressions Renal Ultrasound 06/04/24 15:06 IMPRESSION: 1. Normal kidneys. No hydronephrosis. Chest/Abdomen/Pelvis CT 06/04/24 19:12 IMPRESSION: 1. Diffuse lung disease, consistent with pulmonary edema versus pneumonia. 2. Moderate volume of ascites. Abdomen X-Ray 06/05/24 09:37 IMPRESSION: 1. Lines and tubes all in expected positions. 2. Diffuse patchy bilateral lung disease which could represent pulmonary edema and/or pneumonia. 3. Cardiomegaly. Chest X-Ray 06/07/24 06:14 Impression: Patchy airspace disease throughout both lungs is again present, worst at the left lung base. Correlate for pulmonary edema, infection, ARDS. Support tubes, as above. Labs Labs: Laboratory Tests 06/07/24 05:49 06/07/24 05:49 Lactic Acid 1.3 Calcium 9.6 Phosphorus 3.6 Magnesium 2.4 H Total Bilirubin 1.9 H AST 74 H ALT 40 H Alkaline Phosphatase 192 H Total Protein 6.0 L Albumin 3.1 L Random Vancomycin 19.6
--- NOTE | 2024-06-07 10:41 | PCFNICU ---
ICU Rounding Note: Pt current nutrition is Nepro at 20 ml/hr. Nutrition recommendation: goal rate at 50 ml/hr when ready for advancement. Last recorded weight is 180.9 kg, stable Bowel Motility:+BM reported 06/01 Labs Reviewed:Mg 2.4, Cr 4.0,GFR 12, Glu 159,BUN 49 Meds Noted:Versed, Fentanyl, Levophed, Vancomycin, Cefepime, Protonix Skin: WNL Additional Notes: Patient remains on mechanical vent. Tube feedings to start today at 20 ml/hr of Nepro with flush of 30 ml q 4 hours. Plans for Dialysis today. Agree with diet orders. Following daily in ICU rounds. Will monitor weight, labs, skin, meds, diet orders every Tuesday and Tuesday.
[2024-06-07] MEDS: FENTANYL 2,500MCG/NS250ML(*CRX 2,500 MCG/250 ML BAG IV CONT (11:33)
[2024-06-07 12:03] LABS: Glucose Point of Care 146 mg/dl (65-105)
[2024-06-07] MEDS: HEPARIN SODIUM 1,000 UNITS/ML VIAL 4000 UNITS IV PUSH (12:14)
[2024-06-07] MEDS: AMIODARONE HCL 200 MG TABLET PO ×2 (12:22→20:30)
[2024-06-07] MEDS: MIDODRINE HCL 10 MG TABLET PO ×2 (12:23→17:40)
[2024-06-07] MEDS: PANTOPRAZOLE SODIUM IV 40 MG VIAL IV PUSH ×2 (12:23→20:31)
[2024-06-07] MEDS: MINERAL OIL/WHITE PETROLATUM OINTMENT 1 APPLIC EACH EYE ×2 (12:23→20:34)
[2024-06-07] MEDS: APIXABAN 5 MG TABLET PO ×2 (12:23→20:30)
[2024-06-07] MEDS: FLECAINIDE ACETATE 100 MG TABLET PO ×2 (12:23→20:32)
--- NOTE | 2024-06-07 13:34 | P.PNIM_ITS ---
Progress Note: A&P Assessment and Plan (1) Acute respiratory failure: Code(s): J96.00 - Acute respiratory failure, unspecified whether with hypoxia or hypercapnia Status: Acute Assessment and Plan: Patient originally admitted for difficulty voiding. Patient developed HoTN and hypoxia yesterday that worsened overnight. ABG showing 7.33/58/66.5 on HFNC. Patient brought to the ICU earlier this morning. She had increasing O2 requirements. CXR showed bilateral diffuse pulmonary infiltrates/pulmonary edema. Respiratory failure related to pulmonary edema, pneumonia and/or ARDS Pt intubated in icu ICU MD following (2) Septic shock: Code(s): A41.9 - Sepsis, unspecified organism; R65.21 - Severe sepsis with septic shock Status: Acute Assessment and Plan: Patient was HoTN in the IMU and transferred to the ICU. Septic shock possibly related to UTI, pneumonia. Rt IJ central line was placed and Levophed started. She received fluids, albumin and midodrine Patient is on vancomycin and cefepime which were continued (3) JOVI (acute kidney injury): Code(s): N17.9 - Acute kidney failure, unspecified Status: Acute Assessment and Plan: Baseline Cr normal in April. Cr 2.1 on admission and has worsened JOVI related to shock, sepsis, UTI/pneumonia, hypoxia, SLE flare and/or CHF. TCK levels are normal. Ueos negative. Urine lytes c/w prerenal picture but patient seems to be volume overloaded Pt receiving [employer] today same as yesterday (4) Pulmonary edema: Code(s): J81.1 - Chronic pulmonary edema Status: Acute Assessment and Plan: CT chest (06/04) showing diffuse lung disease c/w PNA vs pulmonary edema. Pulmonary edema likely related to acute kidney injury, ARDS. COVID, RSV and influenza PCR negative on 06/05 She did not respond to Bumex Control fluid status with HD Nephrology on board (5) Type 2 diabetes mellitus: Code(s): E11.9 - Type 2 diabetes mellitus without complications Status: Acute Assessment and Plan: A1c 5.7. The patient's blood glucose was reviewed on 06/05 Glucose remains reasonably well controlled. Continue AccuCheks covering with sliding scale. Hypoglycemia protocol available as needed. Continue to monitor (6) Afib: Code(s): I48.91 - Unspecified atrial fibrillation Status: Acute Assessment and Plan: HR well controlled. Continue amiodarone On eliquis (7) SLE (systemic lupus erythematosus): Code(s): M32.9 - Systemic lupus erythematosus, unspecified Status: Acute Assessment and Plan: Consider SLE flare causinig her JOVI. Started on stress dose steroids Nephrology consulted (8) Liver cirrhosis secondary to HOFF[place]: Code(s): K75.81 - Nonalcoholic steatohepatitis (HOFFMANN); K74.60 - Unspecified cirrhosis of liver Status: Acute Assessment and Plan: Patient has a hx of liver cirrhosis. CT abd without contrast shows normal liver. Mild elevation in AST/ALT but that are now improving. TBili higher at 2. [place] related to congestion. Continue to monitor (9) Morbid obesity with BMI of 50.0-59.9, adult: Code(s): E66.01 - Morbid (severe) obesity due to excess calories; Z68.43 - Body mass index [BMI] 50.0-59.9, adult Status: Acute Assessment and Plan: Once extubated she will need lifestyle changes Subjective Date/time seen: 06/07/24 13:34 Interval history: 54yo female with AFib on anticoagulation, PM and DM here for difficulty voiding. Pt in icu intubated being treated for acute respiratory failure, pulmonary edema and septic shock and JOVI Pt receiving emergent dialysis at bedside Pt receiving dialysis again today Review of Systems Review of Systems: Pt is intubated Exam Narrative: Gen - intubated and sedated, morbidly obese HEENT - ETT secured. OGT secured. Neck - Rt IJ TLC in place. Chest - coarse crackles anteriorly. CV - RRR S1/S2. Abd - soft, morbidly obese - Lai secured draining clear urine Ext - diffuse LE pitting pedal edema 4+ up to shins Neuro - sedated Skin - Warm and dry Objective Data Vital Signs Vital Signs: Vital Signs - 24 hr 06/06/24 13:35 06/06/24 13:45 06/06/24 13:55 Temperature Pulse Rate 63 60 65 Respiratory Rate Blood Pressure 125/56 L 117/48 L 108/44 L Pulse Oximetry Oxygen Delivery Fraction of Inspired Oxygen 06/06/24 14:03 06/06/24 14:16 06/06/24 14:18 Temperature Pulse Rate 62 60 60 Respiratory Rate Blood Pressure 109/43 L 96/37 L Pulse Oximetry Oxygen Delivery Fraction of Inspired Oxygen 06/06/24 14:18 06/06/24 13:42 06/06/24 13:44 Temperature Pulse Rate 60 68 60 Respiratory Rate 28 H Blood Pressure 106/41 L Pulse Oximetry 97 Oxygen Delivery Mechanical Ventilation Fraction of Inspired Oxygen 60 06/06/24 13:55 06/06/24 14:00 06/06/24 14:00 Temperature Pulse Rate 65 63 63 Respiratory Rate 28 H 28 H Blood Pressure 115/46 L Pulse Oximetry 98 Oxygen Delivery Fraction of Inspired Oxygen 06/06/24 15:00 06/06/24 15:22 06/06/24 15:39 Temperature 37.0 C Pulse Rate 62 59 L 60 Respiratory Rate 28 H Blood Pressure 122/50 L 124/52 L 108/42 L Pulse Oximetry 98 Oxygen Delivery Fraction of Inspired Oxygen 06/06/24 16:17 06/06/24 16:00 06/06/24 16:00 Temperature Pulse Rate 60 60 60 Respiratory Rate 28 H Blood Pressure 124/50 L Pulse Oximetry 98 Oxygen Delivery Mechanical Ventilation Fraction of Inspired Oxygen 60 06/06/24 16:00 06/06/24 16:00 06/06/24 16:41 Temperature 37.0 C Pulse Rate 60 60 Respiratory Rate 28 H Blood Pressure 115/46 L 116/47 L Pulse Oximetry 97 Oxygen Delivery Fraction of Inspired Oxygen 60 06/06/24 17:11 06/06/24 17:26 06/06/24 17:00 Temperature Pulse Rate 60 62 60 Respiratory Rate 28 H Blood Pressure 115/47 L 111/44 L Pulse Oximetry 96 99 Oxygen Delivery Mechanical Ventilation Fraction of Inspired Oxygen 60 06/06/24 14:00 06/06/24 16:00 06/06/24 17:51 Temperature Pulse Rate 60 60 60 Respiratory Rate Blood Pressure 118/47 L Pulse Oximetry Oxygen Delivery Fraction of Inspired Oxygen 06/06/24 14:00 06/06/24 16:00 06/06/24 14:00 Temperature Pulse Rate 60 60 60 Respiratory Rate 28 H 28 H 28 H Blood Pressure Pulse Oximetry Oxygen Delivery Fraction of Inspired Oxygen 06/06/24 16:00 06/06/24 18:00 06/06/24 18:01 Temperature Pulse Rate 60 60 60 Respiratory Rate 28 H 28 H Blood Pressure 116/46 L Pulse Oximetry Oxygen Delivery Fraction of Inspired Oxygen 06/06/24 18:01 06/06/24 18:02 06/06/24 18:00 Temperature Pulse Rate 60 60 60 Respiratory Rate 28 H Blood Pressure 115/47 L Pulse Oximetry Oxygen Delivery Fraction of Inspired Oxygen 06/06/24 18:00 06/06/24 18:26 06/06/24 18:32 Temperature Pulse Rate 60 62 60 Respiratory Rate 28 H Blood Pressure 117/47 L 112/46 L 110/45 L Pulse Oximetry 99 Oxygen Delivery Fraction of Inspired Oxygen 06/06/24 20:00 06/06/24 20:00 06/06/24 20:00 Temperature Pulse Rate 60 60 60 Respiratory Rate 28 H 28 H Blood Pressure 107/45 L Pulse Oximetry Oxygen Delivery Fraction of Inspired Oxygen 06/06/24 20:00 06/06/24 20:23 06/06/24 20:23 Temperature Pulse Rate 60 60 60 Respiratory Rate Blood Pressure 107/45 L Pulse Oximetry Oxygen Delivery Fraction of Inspired Oxygen 06/06/24 20:39 06/06/24 20:44 06/06/24 19:00 Temperature Pulse Rate 60 60 60 Respiratory Rate 28 H 28 H Blood Pressure 103/38 L Pulse Oximetry 96 99 Oxygen Delivery Mechanical Ventilation Fraction of Inspired Oxygen 60 06/06/24 20:00 06/06/24 20:00 06/06/24 20:00 Temperature 37.6 C Pulse Rate 60 60 Respiratory Rate 28 H 28 H Blood Pressure 107/45 L Pulse Oximetry 96 96 Oxygen Delivery Mechanical Ventilation Fraction of Inspired Oxygen 60 60 06/06/24 21:00 06/06/24 22:00 06/06/24 22:00 Temperature Pulse Rate 60 60 60 Respiratory Rate 28 H 28 H Blood Pressure 111/44 L 115/46 L 115/46 L Pulse Oximetry 96 95 Oxygen Delivery Fraction of Inspired Oxygen 06/06/24 22:00 06/06/24 22:00 06/06/24 22:00 Temperature Pulse Rate 60 60 60 Respiratory Rate 28 H 28 H Blood Pressure 115/46 L Pulse Oximetry Oxygen Delivery Fraction of Inspired Oxygen 06/06/24 20:00 06/06/24 22:00 06/06/24 22:49 Temperature Pulse Rate 60 60 60 Respiratory Rate Blood Pressure Pulse Oximetry 95 Oxygen Delivery Mechanical Ventilation Fraction of Inspired Oxygen 60 06/06/24 23:00 06/07/24 00:00 06/07/24 00:00 Temperature 37.4 C Pulse Rate 60 60 Respiratory Rate 28 H 28 H Blood Pressure 109/42 L 117/45 L Pulse Oximetry 95 95 Oxygen Delivery Fraction of Inspired Oxygen 60 06/07/24 00:00 06/07/24 00:00 06/07/24 00:00 Temperature Pulse Rate 60 60 60 Respiratory Rate 28 H 28 H Blood Pressure 117/44 L Pulse Oximetry 95 Oxygen Delivery Mechanical Ventilation Fraction of Inspired Oxygen 60 06/07/24 00:00 06/07/24 00:00 06/07/24 00:50 Temperature Pulse Rate 60 60 60 Respiratory Rate 28 H Blood Pressure 117/44 L 121/46 L Pulse Oximetry Oxygen Delivery Fraction of Inspired Oxygen 06/07/24 00:00 06/07/24 01:35 06/07/24 02:00 Temperature Pulse Rate 60 60 60 Respiratory Rate Blood Pressure 120/45 L Pulse Oximetry Oxygen Delivery Fraction of Inspired Oxygen 06/07/24 02:00 06/07/24 02:00 06/07/24 02:00 Temperature Pulse Rate 60 60 60 Respiratory Rate 28 H 28 H 28 H Blood Pressure 113/42 L Pulse Oximetry 95 Oxygen Delivery Fraction of Inspired Oxygen 06/07/24 02:00 06/07/24 02:29 06/07/24 02:30 Temperature Pulse Rate 60 60 61 Respiratory Rate Blood Pressure 117/42 L 119/45 L Pulse Oximetry 95 Oxygen Delivery Mechanical Ventilation Fraction of Inspired Oxygen 60 06/07/24 02:40 06/07/24 02:47 06/07/24 03:17 Temperature Pulse Rate 60 61 60 Respiratory Rate 28 H 28 H 28 H Blood Pressure Pulse Oximetry Oxygen Delivery Fraction of Inspired Oxygen 06/07/24 03:17 06/07/24 04:00 06/07/24 04:00 Temperature 37.0 C Pulse Rate 60 60 Respiratory Rate 28 H 28 H Blood Pressure 111/41 L Pulse Oximetry 95 Oxygen Delivery Fraction of Inspired Oxygen 60 06/07/24 04:00 06/07/24 04:00 06/07/24 05:36 Temperature Pulse Rate 60 60 60 Respiratory Rate 28 H Blood Pressure 114/41 L Pulse Oximetry 95 Oxygen Delivery Mechanical Ventilation Fraction of Inspired Oxygen 60 06/07/24 04:00 06/07/24 05:36 06/07/24 06:00 Temperature Pulse Rate 60 60 60 Respiratory Rate Blood Pressure 113/45 L 114/41 L 114/43 L Pulse Oximetry Oxygen Delivery Fraction of Inspired Oxygen 06/07/24 06:00 06/07/24 06:00 06/07/24 05:43 Temperature Pulse Rate 60 60 61 Respiratory Rate 28 H 28 H Blood Pressure Pulse Oximetry 95 Oxygen Delivery Mechanical Ventilation Fraction of Inspired Oxygen 60 06/07/24 06:00 06/07/24 06:00 06/07/24 06:30 Temperature Pulse Rate 60 60 60 Respiratory Rate 28 H Blood Pressure 113/43 L 111/42 L Pulse Oximetry 95 Oxygen Delivery Fraction of Inspired Oxygen 06/07/24 02:00 06/07/24 04:00 06/07/24 04:00 Temperature Pulse Rate 60 60 60 Respiratory Rate 28 H 28 H Blood Pressure 117/43 L Pulse Oximetry Oxygen Delivery Fraction of Inspired Oxygen 06/07/24 04:00 06/07/24 06:00 06/07/24 06:42 Temperature Pulse Rate 60 60 60 Respiratory Rate Blood Pressure 111/41 L 113/43 L 112/43 L Pulse Oximetry Oxygen Delivery Fraction of Inspired Oxygen 06/07/24 07:15 06/07/24 07:15 06/07/24 07:25 Temperature Pulse Rate 60 60 60 Respiratory Rate 28 H 28 H Blood Pressure Pulse Oximetry 95 Oxygen Delivery Mechanical Ventilation Fraction of Inspired Oxygen 60 06/07/24 07:30 06/07/24 08:00 06/07/24 08:00 Temperature Pulse Rate 60 60 Respiratory Rate Blood Pressure 104/39 L Pulse Oximetry Oxygen Delivery Mechanical Ventilation Fraction of Inspired Oxygen 60 06/07/24 08:00 06/07/24 08:00 06/07/24 08:45 Temperature 37.4 C 36.9 C Pulse Rate 60 61 Respiratory Rate 28 H 28 H Blood Pressure 125/50 L 117/44 L Pulse Oximetry 95 95 Oxygen Delivery Fraction of Inspired Oxygen 60 06/07/24 08:56 06/07/24 08:56 06/07/24 09:45 Temperature Pulse Rate 60 60 Respiratory Rate Blood Pressure 117/44 L 113/42 L Pulse Oximetry Oxygen Delivery Fraction of Inspired Oxygen 60 06/07/24 10:00 06/07/24 10:30 06/07/24 11:00 Temperature Pulse Rate 60 60 60 Respiratory Rate Blood Pressure 111/42 L 123/46 L 118/46 L Pulse Oximetry Oxygen Delivery Fraction of Inspired Oxygen 06/07/24 11:15 06/07/24 11:30 06/07/24 11:45 Temperature Pulse Rate 60 60 60 Respiratory Rate Blood Pressure 111/41 L 107/40 L 109/43 L Pulse Oximetry Oxygen Delivery Fraction of Inspired Oxygen 06/07/24 11:56 06/07/24 09:00 06/07/24 09:15 Temperature Pulse Rate 64 60 60 Respiratory Rate Blood Pressure 114/44 L 114/43 L 114/43 L Pulse Oximetry Oxygen Delivery Fraction of Inspired Oxygen 06/07/24 09:30 06/07/24 08:00 06/07/24 08:00 Temperature Pulse Rate 60 60 60 Respiratory Rate 28 H 28 H Blood Pressure 112/44 L Pulse Oximetry Oxygen Delivery Fraction of Inspired Oxygen 06/07/24 08:00 06/07/24 10:00 06/07/24 10:00 Temperature 37.2 C Pulse Rate 60 60 60 Respiratory Rate 24 H Blood Pressure 113/43 L 113/42 L Pulse Oximetry 96 Oxygen Delivery Fraction of Inspired Oxygen 06/07/24 10:00 06/07/24 10:00 06/07/24 10:00 Temperature Pulse Rate 60 60 60 Respiratory Rate 24 H 24 H Blood Pressure 114/43 L Pulse Oximetry Oxygen Delivery Fraction of Inspired Oxygen 06/07/24 10:00 06/07/24 10:21 06/07/24 10:15 Temperature Pulse Rate 60 60 60 Respiratory Rate Blood Pressure 87/36 L 87/32 L Pulse Oximetry 96 Oxygen Delivery Mechanical Ventilation Fraction of Inspired Oxygen 60 06/07/24 10:22 06/07/24 10:28 06/07/24 10:45 Temperature Pulse Rate 60 60 60 Respiratory Rate Blood Pressure 110/42 L 124/50 L 112/41 L Pulse Oximetry Oxygen Delivery Fraction of Inspired Oxygen 06/07/24 11:28 06/07/24 11:33 06/07/24 12:22 Temperature Pulse Rate 60 60 63 Respiratory Rate 24 H 24 H Blood Pressure Pulse Oximetry Oxygen Delivery Fraction of Inspired Oxygen 06/07/24 12:23 06/07/24 13:15 06/07/24 13:15 Temperature Pulse Rate 63 64 64 Respiratory Rate 24 H Blood Pressure Pulse Oximetry 96 Oxygen Delivery Mechanical Ventilation Fraction of Inspired Oxygen 60 06/07/24 12:05 06/07/24 12:00 06/07/24 12:00 Temperature 37.1 C Pulse Rate 63 64 64 Respiratory Rate 24 H 24 H Blood Pressure 111/41 L Pulse Oximetry 96 95 Oxygen Delivery Mechanical Ventilation Fraction of Inspired Oxygen 60 06/07/24 12:00 06/07/24 12:00 06/07/24 12:00 Temperature 37.4 C Pulse Rate 64 64 Respiratory Rate 24 H Blood Pressure 114/43 L 114/43 L Pulse Oximetry 95 Oxygen Delivery Fraction of Inspired Oxygen 60 06/07/24 12:00 06/07/24 12:00 06/07/24 13:24 Temperature Pulse Rate 64 64 61 Respiratory Rate 24 H 24 H 24 H Blood Pressure Pulse Oximetry Oxygen Delivery Fraction of Inspired Oxygen Intake/Output Intake/Output: Intake & Output 06/04/24 06/05/24 06/06/24 06/07/24 23:59 23:59 23:59 23:59 Intake Total 1630 1802.2 1263.6 290.8 Output Total 400 3130 3230 4070 Balance 1230 -1327.8 -1966.4 -3779.2 Meds/Results Medications: Active Medications Generic Name Dose Route Start Last Admin Trade Name Freq PRN Reason Stop Dose Admin Albuterol/Ipratropium 3 ml 06/05/24 11:15 06/07/24 13:17 Ipratropium 0.5 Mg/Albuterol Sulfate 2.5 Mg Ampul.Neb 3 Ml INHALATION 3 ml Q6HRT JOHN Administration Amiodarone HCl 200 mg 06/02/24 21:00 06/07/24 12:22 Amiodarone Hcl 200 Mg Tablet PO 200 mg Q12HR JOHN Administration Apixaban 5 mg 06/06/24 09:30 06/07/24 12:23 Apixaban 5 Mg Tablet PO 5 mg Q12HR JOHN Administration Dextrose 12.5 gm 06/05/24 11:46 Dextrose 50% 25 Gm/50 Ml Syringe IV PUSH PRN PRN Hypoglycemia Protocol Flecainide Acetate 100 mg 06/02/24 21:00 06/07/24 12:23 Flecainide Acetate 100 Mg Tablet PO 100 mg Q12HR JOHN Administration Gabapentin 200 mg 06/02/24 22:00 06/04/24 21:07 Gabapentin 100 Mg Capsule PO 200 mg Q8HR JOHN Administration Glucagon 1 mg 06/05/24 11:46 Glucagon For Inj 1 Mg Vial IM PRN PRN Hypoglycemia Protocol Glucose 15 gm 06/05/24 11:46 Glucose Oral Gel 15 Gm Of Glucse In 37.5 Gm Tube PO PRN PRN Hypoglycemia Protocol Hydrocortisone Sodium Succinate 100 mg 06/05/24 14:00 06/07/24 05:40 Hydrocortisone Sodium Succinate 100 Mg/2 Ml Vial IV PUSH 100 mg Q8HR JOHN Administration Norepinephrine Bitartrate 8 mg in 250 mls @ 15 mls/hr 06/05/24 00:35 06/07/24 12:00 Levophed 8 Mg/D5w 250 Ml IV CONT 8 mcg/min .[id number] JOHN 15 mls/hr Titration Protocol 8 MCG/MIN Fentanyl Citrate 2,500 mcg in 250 mls @ 5 mls/hr 06/05/24 08:35 06/07/24 12:00 Fentanyl 2,500 Mcg/Ns 250 Ml IV CONT 50 mcg/hr .Q50H JOHN 5 mls/hr Titration Protocol 50 MCG/HR Midazolam HCl 100 mg in 100 mls @ 2 mls/hr 06/05/24 08:35 06/07/24 12:00 Versed 100 Mg/Ns 100 Ml IV CONT 2 mg/hr .Q50H JOHN 2 mls/hr Titration Protocol 2 MG/HR Dextrose 1,000 mls @ 100 mls/hr 06/05/24 11:46 Dextrose 5% 1,000 Ml IVPB PRN PRN Hypoglycemia Protocol Albumin Human 50 mls @ 999 mls/hr 06/05/24 12:43 06/05/24 17:08 Albutein IVPB 07/05/24 12:42 Infused Q10M PRN Infusion HYPOTENSION Cefepime HCl 1 gm in 50 mls @ 100 mls/hr 06/06/24 16:00 06/06/24 16:50 Maxipime 1 Gm/Ns 50 Ml IVPB Infused Q24H JOHN Infusion Vancomycin HCl 1,000 mg in 250 mls @ 250 mls/hr 06/07/24 14:00 Vancomycin 1,000 Mg/Ns 250 Ml IVPB 06/07/24 14:59 ONCE ONE Insulin Aspart 3 - 6 units 06/05/24 12:00 06/07/24 12:24 Insulin Aspart (*Bkc) 100 Units/Ml SUB-Q Not Given Q6HR JOHN Protocol Midodrine 10 mg 06/05/24 09:00 06/07/24 13:33 Midodrine Hcl 10 Mg Tablet PO Not Given TID JOHN Multi-Ingred Cream/Lotion/Oil/Oint 1 applic 06/05/24 09:00 06/07/24 12:23 Mineral Oil/White Petrolatum Ointment EACH EYE 1 applic Q12HR JOHN Administration Pantoprazole Sodium 40 mg 06/06/24 09:00 06/07/24 12:23 Pantoprazole Sodium Iv 40 Mg Vial IV PUSH 40 mg Q12HR JOHN Administration Fluticasone/Salmeterol 2 puff 06/03/24 08:00 06/07/24 07:25 Fluticasone/Salmeterol 115-21 Mcg Inhaler 1 Puff INHALATION 2 puff Q12HRT JOHN Administration Sodium Chloride 10 ml 06/05/24 06:00 06/07/24 05:57 Central Line Flush IV PUSH 10 ml Q8HR JOHN Administration Sodium Chloride 20 ml 06/05/24 03:12 Central Line Flush IV PUSH PRN PRN after blood draws Umeclidinium [place] 1 puff 06/03/24 08:00 06/07/24 07:15 Umeclidinium [place] 62.5 Mcg Ellipta INHALATION 1 puff DAILYRT JOHN Administration Vancomycin HCl 1 each 06/05/24 13:14 Vancomycin For Hemodialysis IVPB PRN PRN Vancomycin Protocol Radiology Results: ITS Impressions Renal Ultrasound 06/04/24 15:06 IMPRESSION: 1. Normal kidneys. No hydronephrosis. Chest/Abdomen/Pelvis CT 06/04/24 19:12 IMPRESSION: 1. Diffuse lung disease, consistent with pulmonary edema versus pneumonia. 2. Moderate volume of ascites. Abdomen X-Ray 06/05/24 09:37 IMPRESSION: 1. Lines and tubes all in expected positions. 2. Diffuse patchy bilateral lung disease which could represent pulmonary edema and/or pneumonia. 3. Cardiomegaly. Chest X-Ray 06/07/24 06:14 Impression: Patchy airspace disease throughout both lungs is again present, worst at the left lung base. Correlate for pulmonary edema, infection, ARDS. Support tubes, as above. Labs Labs: Laboratory Results - last 24 hr 06/06/24 06/06/24 06/06/24 13:27 14:00 18:29 WBC RBC Hgb Hct MCV MCH MCHC RDW Plt Count MPV Immature Gran % (Auto) Neut % (Auto) Lymph % (Auto) Cassia % (Auto) Eos % (Auto) Baso % (Auto) Lymph # (Auto) [place] # (Auto) Eos # (Auto) Baso # (Auto) Abs Immat Gran (auto) Absolute Neuts (auto) Absolute Nucleated RBC Nucleated RBC % Puncture Site Artline ABG pH 7.440 ABG pCO2 37.9 ABG pO2 133.3 H ABG PO2/FiO2 Ratio 1.67 ABG HCO3 25.2 ABG O2 Saturation 98.8 ABG O2 Content 17.4 ABG Base Excess 1.1 A-a Gradient 397.3 Oxyhemoglobin 98.6 Carboxyhemoglobin 0.3 Methemoglobin 0.2 Reduced Hemoglobin 0.9 Total Hemoglobin 12.4 O2 Delivery Device Ventilator O2 Liters/Min 0.0 Minute Volume Not Reportable Vent Rate 28 Vent Mode Cmv FiO2 80 Tidal Volume 400 PEEP 14 Peak Inspir Pressure Not Reportable Pressure Support 0 Sodium 133 L Potassium 4.4 Chloride 97 L Carbon Dioxide 24 Anion Gap 12 BUN 36 H D Creatinine 3.30 H Estim Creat Clear Calc 30 Estimated GFR 15 L Glucose 193 H POC Capillary Glucose 183 H Lactic Acid Calcium 9.5 Phosphorus Magnesium Total Bilirubin AST ALT Alkaline Phosphatase Total Protein Albumin Random Vancomycin 06/06/24 06/07/24 06/07/24 23:45 05:49 05:56 WBC 11.8 H RBC 3.82 L Hgb 10.5 L Hct 31.8 L MCV 83.2 D MCH 27.5 MCHC 33.0 RDW 17.2 H Plt Count 373 MPV 9.5 Immature Gran % (Auto) 0.9 H Neut % (Auto) 80.2 H Lymph % (Auto) 10.3 L Cassia % (Auto) 8.4 Eos % (Auto) 0.0 Baso % (Auto) 0.2 Lymph # (Auto) 1.21 Cassia # (Auto) 1.0 H Eos # (Auto) 0.0 Baso # (Auto) 0.0 Abs Immat Gran (auto) 0.11 H Absolute Neuts (auto) 9.4 H Absolute Nucleated RBC 0.000 Nucleated RBC % 0.0 Puncture Site Artline ABG pH 7.490 H ABG pCO2 35.3 ABG pO2 92.7 ABG PO2/FiO2 Ratio 1.54 ABG HCO3 26.3 H ABG O2 Saturation 97.6 ABG O2 Content 21.5 ABG Base Excess 3.3 A-a Gradient 296.3 Oxyhemoglobin 96.7 Carboxyhemoglobin 0.7 Methemoglobin 0.2 Reduced Hemoglobin 2.4 Total Hemoglobin 15.8 O2 Delivery Device Ventilator O2 Liters/Min Not Reportable Minute Volume Not Reportable Vent Rate 28 Vent Mode Cmv FiO2 60 Tidal Volume 400 PEEP 14 Peak Inspir Pressure Not Reportable Pressure Support Not Reportable Sodium 131 L Potassium 4.6 Chloride 97 L Carbon Dioxide 26 Anion Gap 8 BUN 49 H D Creatinine 4.00 H Estim Creat Clear Calc 25 Estimated GFR 12 L Glucose 159 H POC Capillary Glucose 167 H 157 H Lactic Acid 1.3 Calcium 9.6 Phosphorus 3.6 Magnesium 2.4 H Total Bilirubin 1.9 H AST 74 H ALT 40 H Alkaline Phosphatase 192 H Total Protein 6.0 L Albumin 3.1 L Random Vancomycin 19.6 06/07/24 12:01 WBC RBC Hgb Hct MCV MCH MCHC RDW Plt Count MPV Immature Gran % (Auto) Neut % (Auto) Lymph % (Auto) Cass[place] % (Auto) Eos % (Auto) Baso % (Auto) Lymph # (Auto) Cassia # (Auto) Eos # (Auto) Baso # (Auto) Abs Immat Gran (auto) Absolute Neuts (auto) Absolute Nucleated RBC Nucleated RBC % Puncture Site ABG pH ABG pCO2 ABG pO2 ABG PO2/FiO2 Ratio ABG HCO3 ABG O2 Saturation ABG O2 Content ABG Base Excess A-a Gradient Oxyhemoglobin Carboxyhemoglobin Methemoglobin Reduced Hemoglobin Total Hemoglobin O2 Delivery Device O2 Liters/Min Minute Volume Vent Rate Vent Mode FiO2 Tidal Volume PEEP Peak Inspir Pressure Pressure Support Sodium Potassium Chloride Carbon Dioxide Anion Gap BUN Creatinine Estim Creat Clear Calc Estimated GFR Glucose POC Capillary Glucose 146 H Lactic Acid Calcium Phosphorus Magnesium Total Bilirubin AST ALT Alkaline Phosphatase Total Protein Albumin Random Vancomycin
[2024-06-07] MEDS: VANCOMYCIN 1,000 MG/NS 250 ML 1,000 MG/250 ML BAG 250 MG IVPB (13:41)
[2024-06-07] MEDS: CEFEPIME 1 GM/NS 50 ML 1 GM/50 ML BAG IVPB (15:45)
[2024-06-07 17:49] LABS: Glucose Point of Care 153 mg/dl (65-105)
--- NOTE | 2024-06-07 19:19 | PC.NURSE ---
Call received from patient's spouse Charbel Spring requesting update on patient condition. Update given and questions answered. Charbel states that he is trying to stay away because his sister in law is trying to take over. Also, stated that he is the POA and that we should call him for any issues and not his sister in law. Explained to him that patient's sister Jose Raul De Leon is listed as her medical POA. Charbel insisted that he be called for any decisions to be made. Encouraged him to call during daytime hours when management and care coordination are available to further discuss his concerns. Following discussion with Charbel, this RN verified in patient's physical chart that POA paperwork was signed in February 2024 designating Jose Raul De Leon as medical POA.
[2024-06-07] MEDS: ACETAMINOPHEN ELIXIR 325 MG/10.15 ML UDC 650 MG PO (22:30)
[2024-06-07] MEDS: NOREPINEPHRINE 8 MG/D5W 250 ML 8 MG/250 ML BAG 9.38 MG IV CONT (23:36)
[2024-06-07 23:46] LABS: Glucose Point of Care 154 mg/dl (65-105)
[2024-06-08] VITALS (67 sets, daily range): BP systolic 87–136; BP diastolic 34–64; PULSE 60–67; RESP 20–24; TEMP 36.8–37.8; O2SAT 93–98
[2024-06-08 05:37] LABS: Alveolar/Arterial O2 Gradient 271.7 mmHg; Base Excess ABG 2.8 mEq/l (+/-2.0); Carboxyhemoglobin 0.1 % THb (0-2.0); Fractional Inspired Oxygen 60 %; HCO3 ABG 27.2 mEq/l (22.0-26.0); Methemoglobin ABG 0.1 %THb (0-1.5); Oxygen Content ABG 15.2 %vol (16.0-22.0); Oxygen Saturation ABG 98.2 % (95.0-100.0); Oxyhemoglobin 98.1 % THb (90.0-100.0); PCO2 ABG 41.4 mmHg (35.0-45.0); PO2 ABG 110.6 mmHg (80.0-100.0); PO2 FiO2 Ratio Arterial Blood 1.84 %; Reduced Hemoglobin 1.7 %THb (0-5.0); Total Hemoglobin 10.9 g/dL (12.0-18.0); pH ABG 7.436 (7.350-7.450)
[2024-06-08 05:43] LABS: Basophils Percent Auto 0.1 % (0.2-1.2); Hematocrit 31.2 % (37.0-47.0); Hemoglobin 10.1 g/dL (12.0-15.0); Immature Granulocyte Absolute 0.06 K/mm3 (0.00-0.031); Immature Granulocyte Percent A 0.6 % (0-0.5); Lymphocytes Absolute Auto 0.86 K/mm3 (0.9-3.2); Lymphocytes Percent Auto 8.2 % (18.3-44.2); Mean Corpuscular HGB Conc 32.4 g/dl (32-36); Mean Corpuscular Hemoglobin 27.2 pg (26-34); Mean Corpuscular Volume 84.1 fl (80-100); Mean Platelet Volume 9.5 fl (7.4-10.4); Monocytes Absolute Auto 0.9 K/mm3 (0.1-0.6); Monocytes Percent Auto 8.3 % (2.6-8.5); Neutrophils Absolute Auto 8.7 K/mm3 (1.3-6.7); Neutrophils Percent Auto 82.8 % (45.5-73.1); Platelet Count Result 349 k/mm3 (150-375); Red Blood Count 3.71 M/mm3 (4.2-5.4); Red Cell Distribution Width 17.3 % (11.5-14.5); White Blood Count 10.5 K/mm3 (4.5-10.0)
[2024-06-08 05:57] LABS: Alanine Aminotransferase 42 U/L (6-35); Albumin Level 3.1 g/dL (3.5-5.1); Alkaline Phosphatase 185 U/L (38-126); Anion Gap 9 mmol/L (4-12); Aspartate Amino Transferase 96 U/L (14-36); Bilirubin,Total 1.8 mg/dL (0.2-1.3); Blood Urea Nitrogen 66 mg/dL (7-17); Calcium 9.9 mg/dL (8.4-10.2); Carbon Dioxide 25 mmol/L (22-30); Chloride 97 mmol/L (98-107); Estimated CRCL calculation 21 ml/min; Estimated Glomerular Filt Rate 10; Glucose 165 mg/dL (65-110); Magnesium 2.5 mg/dL (1.6-2.3); Phosphorus 4.9 mg/dL (2.5-4.5); Potassium 4.7 mmol/L (3.4-5.0); Sodium 131 mmol/L (137-145)
[2024-06-08 05:59] LABS: Vancomycin Random 22.9 ug/mL (10-20)
[2024-06-08] MEDS: HYDROCORTISONE SODIUM SUCCINATE 100 MG/2 ML VIAL IV PUSH ×3 (06:11→23:41)
[2024-06-08] MEDS: CENTRAL LINE FLUSH 10 ML IV PUSH ×3 (06:12→23:41)
[2024-06-08 07:17] LABS: Device VENTILATOR; Modified Allen's Test Pass; Site Drawn ARTLINE
[2024-06-08 07:18] LABS: Arterial Blood Gas PEEP 14 cmH2O; Arterial Blood Gas Vent Mode CMV; Arterial Blood Gas Ventilator rate 24 /MIN
[2024-06-08 07:19] LABS: Arterial Blood Gas Tidal Volume 400 ml
[2024-06-08] MEDS: IPRATROPIUM 0.5 MG/ALBUTEROL SULFATE 2.5 MG AMPUL.NEB 3 ML INHALATION ×3 (07:38→21:00)
[2024-06-08] MEDS: ALBUMIN HUMAN 25% 12.5 GM/50ML 100 ML 999 GM (09:45)
[2024-06-08] MEDS: EPOETIN ALFA-EPBX 10,000 UNITS/ML VIAL 10000 UNITS IV PUSH (10:21)
--- NOTE | 2024-06-08 10:25 | P.PNNP_ITS ---
Progress Note: A&P Assessment and Plan (1) JOVI (acute kidney injury): Code(s): N17.9 - Acute kidney failure, unspecified Status: Acute Assessment and Plan: * normal creatinine ~ 1 month ago * admitted with a creatinine of 2.1mg/dl with ongoing worsening noted * etiology not clear but several possibilities: * hemodynamic instability/shock * early sepsis * infection (UTI +/- pneumonia) -- although culture negative to date * hypoxia * SLE flare (?) * other? * evaluation to date noted: * renal ultrasound negative for obstruction * urine eosinophils negative * urine electrolytes pre-renal (in spite of evidence of volume overload) * CPK low * moderate proteinuria (~ 600mg) * UA with blood and protein (and negative urine culture) * complements normal (arguing against lupus flare) * initiated on dialysis yesterday due to worsening respiratory status and volume overload * HD on 06/05 and 06/06 * DUF on 06/07 * HD today * follow repeat labs and UOP for potential renal recovery (2) Acute respiratory failure: Code(s): J96.00 - Acute respiratory failure, unspecified whether with hypoxia or hypercapnia Status: Acute Assessment and Plan: * intubated on 06/05: * failed BiPAP therapy * impending respiratory failure (given hypoxia + hypercapnea) * suspect secondary to pulmonary edema, pneumonia, and possible early ARDS * remains on ventilator support * on bronchodilators and steroids * fluid removal with dialysis * follow respiratory status (3) Septic shock: Code(s): A41.9 - Sepsis, unspecified organism; R65.21 - Severe sepsis with septic shock Status: Acute Assessment and Plan: * possible related to pneumonia versus UTI * initiated on vasopressor therapy * follow culture data * 06/06 blood culture with E.coli * urine culture negative * on antibiotics * stress dose steroids * follow trend of hemodynamics (4) Pulmonary edema: Code(s): J81.1 - Chronic pulmonary edema Status: Acute Assessment and Plan: * contributing to #2 * secondary to JOVI/ARF but ARDS possibly playing a role * Pulmonary edema likely related to acute kidney injury, ARDS * fluid removal with dialysis as tolerated (5) SLE (systemic lupus erythematosus): Code(s): M32.9 - Systemic lupus erythematosus, unspecified Status: Acute Assessment and Plan: * ? SLE flare * getting stress dose steroids * seems less likely based on evidence to date * however, would not be a candidate for immunosuppression at this time in any case (6) Anemia: Code(s): D64.9 - Anemia, unspecified Status: Acute Assessment and Plan: * related to JOVI and acute/critical illness * KIRILL with HD as needed * follow trend of H/H (7) Type 2 diabetes mellitus: Code(s): E11.9 - Type 2 diabetes mellitus without complications Status: Acute Assessment and Plan: * follow accu-cheks * glycemic control per vision rehabilitation therapist/hospitalist Will continue to follow. Subjective Date/time seen: 06/08/24 10:25 Interval history: Follow-up for acute kidney injury/acute renal failure. Tolerated DUF session yesterday with 3.7L fluid removal and tolerating dialysis treatment at the time of my visit (seen on HD at 10:15AM); remains intubated/sedated and on mechanical ventilation; febrile overnight with Tmax 101.2?; remains on vasopressor support with transient increase needed durng dialysis/ultrafiltration treatments. Exam Narrative: General: large female intubated/sedated on mechanical ventilator Heart: normal S1 and S2; no rub Lungs: coarse with some scattered crackles Abdomen: obese but soft, nontender, nondistended, positive bowel sounds Extremities: no cyanosis or clubbing; 2 - 3+ edema Skin: no rash Objective Data Vital Signs Vital Signs: Vital Signs Temp Pulse Resp BP Pulse Ox O2 Del Method FiO2 06/08/24 10:15 60 125/53 L 06/08/24 10:00 60 125/52 L 06/08/24 10:20 60 127/54 L 06/08/24 10:00 60 24 H 06/08/24 10:00 60 24 H 06/08/24 10:15 60 130/54 L 06/08/24 10:10 60 136/58 L 06/08/24 10:05 60 134/57 L 06/08/24 09:45 63 90/34 L 06/08/24 09:30 61 105/42 L 06/08/24 08:00 98.3 F 60 24 H 118/51 L 94 06/08/24 09:55 60 102/48 L 06/08/24 09:50 60 97/37 L 06/08/24 09:45 60 87/34 L 06/08/24 09:15 60 112/47 L 06/08/24 09:40 60 97/37 L 06/08/24 08:00 60 24 H 06/08/24 08:00 60 24 H 06/08/24 08:00 60 118/51 L 06/08/24 08:00 60 06/08/24 09:00 60 118/50 L 06/08/24 08:44 60 125/54 L 06/08/24 08:30 98.3 F 60 24 H 121/53 L 94 06/08/24 08:30 98.3 F 60 24 H 121/53 L 94 06/08/24 07:54 60 24 H 06/08/24 07:48 60 24 H 06/08/24 07:48 60 94 Mechanical Ventilation 50 06/08/24 06:00 60 06/08/24 06:00 60 24 H 125/53 L 95 06/08/24 04:00 62 06/08/24 04:00 98.7 F 67 24 H 121/52 L 94 06/08/24 04:00 60 06/08/24 04:00 Mechanical Ventilation 60 06/08/24 06:29 60 115/49 L 06/08/24 06:15 60 121/50 L 06/08/24 06:00 60 125/53 L 06/08/24 06:00 60 24 H 06/08/24 06:00 60 24 H 06/08/24 05:38 60 98 Mechanical Ventilation 60 06/08/24 04:00 67 24 H 06/08/24 02:00 60 24 H 06/08/24 04:00 67 24 H 06/08/24 02:00 60 24 H 06/08/24 04:00 67 121/52 L 06/08/24 02:45 60 115/50 L 06/08/24 02:30 61 123/52 L 06/08/24 02:00 60 121/49 L 06/08/24 01:00 60 120/50 L 06/08/24 02:00 60 06/08/24 02:00 100.1 F H 60 24 H 121/49 L 96 06/08/24 00:45 61 127/53 L 06/08/24 00:30 60 110/41 L 06/08/24 00:15 61 122/51 L 06/08/24 00:00 60 06/08/24 00:00 60 24 H 06/08/24 00:00 60 24 H 06/08/24 00:00 60 125/53 L 06/08/24 00:00 60 24 H 125/53 L 97 06/07/24 23:59 60 06/07/24 23:51 Mechanical Ventilation 60 06/07/24 22:00 60 06/07/24 22:00 60 24 H 128/50 L 96 06/07/24 23:36 60 125/51 L 06/07/24 23:36 60 125/51 L 06/07/24 23:08 60 119/46 L 06/07/24 23:30 100.2 F H 06/07/24 21:28 60 24 H 06/07/24 23:25 60 97 Mechanical Ventilation 60 06/07/24 22:38 60 122/48 L 06/07/24 22:00 60 24 H 06/07/24 22:00 60 24 H 06/07/24 22:00 60 128/50 L 06/07/24 22:30 100.2 F H 06/07/24 21:45 60 96 Mechanical Ventilation 60 06/07/24 20:00 62 06/07/24 20:00 Mechanical Ventilation 60 06/07/24 22:53 60 122/48 L 06/07/24 20:00 60 06/07/24 21:43 100.9 F H 06/07/24 20:00 101.2 F H 63 24 H 122/47 L 95 06/07/24 20:00 63 24 H 06/07/24 20:00 63 24 H 06/07/24 20:00 63 122/47 L 06/07/24 20:32 63 06/07/24 20:30 63 06/07/24 18:00 64 24 H 06/07/24 18:00 64 24 H 06/07/24 18:00 64 123/50 L 06/07/24 18:00 99.4 F 64 24 H 123/72 95 06/07/24 18:00 67 06/07/24 16:48 67 24 H 06/07/24 16:00 67 24 H 06/07/24 16:00 68 123/48 L 06/07/24 16:00 99.4 F 67 24 H 122/49 L 94 06/07/24 16:00 60 06/07/24 16:00 67 24 H 94 Mechanical Ventilation 60 06/07/24 16:00 68 06/07/24 16:00 68 94 Mechanical Ventilation 60 06/07/24 14:00 60 24 H 06/07/24 14:00 60 24 H 06/07/24 14:00 60 118/45 L 06/07/24 14:00 99.3 F 60 24 H 117/44 L 95 06/07/24 14:00 60 Intake/Output Intake/Output: Intake & Output 06/05/24 06/06/24 06/07/24 06/08/24 23:59 23:59 23:59 23:59 Intake Total 1802.2 1263.6 937.2 558.9 Output Total 3130 3230 4170 3129 Balance -1327.8 -1966.4 -3232.8 -2570.1 Meds/Results Medications: Active Medications Generic Name Dose Route Start Last Admin Trade Name Freq PRN Reason Stop Dose Admin Acetaminophen 650 mg 06/07/24 21:53 06/07/24 22:30 Acetaminophen Elixir 325 Mg/10.15 Ml Udc PO 650 mg Q6H PRN Administration Mild Pain (1-3) or Fever Albuterol/Ipratropium 3 ml 06/05/24 11:15 06/08/24 07:38 Ipratropium 0.5 Mg/Albuterol Sulfate 2.5 Mg Ampul.Neb 3 Ml INHALATION 3 ml Q6HRT JOHN Administration Amiodarone HCl 200 mg 06/02/24 21:00 06/08/24 13:20 Amiodarone Hcl 200 Mg Tablet PO 200 mg Q12HR JOHN Administration Apixaban 5 mg 06/06/24 09:30 06/08/24 13:21 Apixaban 5 Mg Tablet PO 5 mg Q12HR JOHN Administration Dextrose 12.5 gm 06/05/24 11:46 Dextrose 50% 25 Gm/50 Ml Syringe IV PUSH PRN PRN Hypoglycemia Protocol Epoetin Shayan-epbx 10,000 units 06/08/24 20:00 06/08/24 10:21 Epoetin Shayan-Epbx 10,000 Units/Ml Vial IV PUSH 06/08/24 20:01 10,000 units ONCE ONE Administration Flecainide Acetate 100 mg 06/02/24 21:00 10/18/24 10:26 Flecainide Acetate 100 Mg Tablet PO Not Given Q12HR JOHN Gabapentin 200 mg 06/02/24 22:00 06/04/24 21:07 Gabapentin 100 Mg Capsule PO 200 mg Q8HR JOHN Administration Glucagon 1 mg 06/05/24 11:46 Glucagon For Inj 1 Mg Vial IM PRN PRN Hypoglycemia Protocol Glucose 15 gm 06/05/24 11:46 Glucose Oral Gel 15 Gm Of Glucse In 37.5 Gm Tube PO PRN PRN Hypoglycemia Protocol Hydrocortisone Sodium Succinate 100 mg 06/05/24 14:00 06/08/24 13:22 Hydrocortisone Sodium Succinate 100 Mg/2 Ml Vial IV PUSH 100 mg Q8HR JOHN Administration Norepinephrine Bitartrate 8 mg in 250 mls @ 5.625 mls/hr 06/05/24 00:35 06/08/24 13:18 Levophed 8 Mg/D5w 250 Ml IV CONT 3 mcg/min .Q24H JOHN 5.63 mls/hr Titration Protocol 3 MCG/MIN Fentanyl Citrate 2,500 mcg in 250 mls @ 2.5 mls/hr 06/05/24 08:35 06/08/24 12:00 Fentanyl 2,500 Mcg/Ns 250 Ml IV CONT 25 mcg/hr .Q72H JOHN 2.5 mls/hr Titration Protocol 25 MCG/HR Midazolam HCl 100 mg in 100 mls @ 1 mls/hr 06/05/24 08:35 06/08/24 12:00 Versed 100 Mg/Ns 100 Ml IV CONT 1 mg/hr .Q72H JOHN 1 mls/hr Titration Protocol 1 MG/HR Dextrose 1,000 mls @ 100 mls/hr 06/05/24 11:46 Dextrose 5% 1,000 Ml IVPB PRN PRN Hypoglycemia Protocol Cefepime HCl 1 gm in 50 mls @ 100 mls/hr 06/06/24 16:00 06/07/24 16:15 Maxipime 1 Gm/Ns 50 Ml IVPB Infused Q24H JOHN Infusion Albumin Human 50 mls @ 999 mls/hr 06/08/24 09:50 Albutein IVPB 06/12/24 08:39 Q10M PRN HYPOTENSION Insulin Aspart 3 - 6 units 06/05/24 12:00 06/08/24 12:20 Insulin Aspart (*Bkc) 100 Units/Ml SUB-Q Not Given Q6HR [facility] Protocol Midodrine 10 mg 06/05/24 09:00 06/08/24 13:21 Midodrine Hcl 10 Mg Tablet PO 10 mg TID JOHN Administration Multi-Ingred Cream/Lotion/Oil/Oint 1 applic 06/05/24 09:00 06/08/24 13:21 Mineral Oil/White Petrolatum Ointment EACH EYE 1 applic Q12HR JOHN Administration Pantoprazole Sodium 40 mg 06/06/24 09:00 06/08/24 13:21 Pantoprazole Sodium Iv 40 Mg Vial IV PUSH 40 mg Q12HR JOHN Administration Fluticasone/Salmeterol 2 puff 06/03/24 08:00 06/08/24 07:47 Fluticasone/Salmeterol 115-21 Mcg Inhaler 1 Puff INHALATION Not Given Q12HRT JOHN Sodium Chloride 10 ml 06/05/24 06:00 06/08/24 13:23 Central Line Flush IV PUSH 10 ml Q8HR JOHN Administration Sodium Chloride 20 ml 06/05/24 03:12 Central Line Flush IV PUSH PRN PRN after blood draws Umeclidinium [place] 1 puff 06/03/24 08:00 06/07/24 07:15 Umeclidinium [place] 62.5 Mcg Ellipta INHALATION 1 puff DAILYRT JOHN Administration Radiology Results: ITS Impressions Renal Ultrasound 06/04/24 15:06 IMPRESSION: 1. Normal kidneys. No hydronephrosis. Chest/Abdomen/Pelvis CT 06/04/24 19:12 IMPRESSION: 1. Diffuse lung disease, consistent with pulmonary edema versus pneumonia. 2. Moderate volume of ascites. Abdomen X-Ray 06/05/24 09:37 IMPRESSION: 1. Lines and tubes all in expected positions. 2. Diffuse patchy bilateral lung disease which could represent pulmonary edema and/or pneumonia. 3. Cardiomegaly. Venous Doppler Study 06/07/24 17:01 IMPRESSION: 1. No deep venous thrombosis. Chest X-Ray 06/08/24 07:20 Impression: Stable extensive bilateral pulmonary consolidation, worst at the left lung base. Correlate for pulmonary edema versus pneumonia. Stable support tubes and pacemaker device. Labs Labs: Laboratory Tests 06/08/24 05:27 06/08/24 05:27 Calcium 9.9 Phosphorus 4.9 H Magnesium 2.5 H Total Bilirubin 1.8 H AST 96 H ALT 42 H Alkaline Phosphatase 185 H Total Protein 6.0 L Albumin 3.1 L Random Vancomycin 22.9 H Microbiology 06/02/24 15:21 Blood Blood Culture - Final 06/02/24 15:21 Blood Blood Culture - Final 06/07/24 15:51 Sputum Sputum Culture - Preliminary 06/06/24 07:43 Blood Blood Culture - Preliminary Escherichia Coli 06/06/24 13:35 Urine [place] Urine Culture - Final 06/06/24 07:37 Blood Blood Culture - Preliminary
--- NOTE | 2024-06-08 11:15 | PCNFU ---
Nutrition Follow-Up Complete: Suboptimal Energy Intake as related to mechanical ventilator as evidenced by NPO. Goal: Meet estimated nutritional needs Patient is progressing towards goal. We will continue current goal. Pt current nutrition is Nepro at 20 ml/hr. Nutrition recommendation: goal rate at 40 ml/hr. Last recorded weight is 176 kg, down from 180.3 kg on admit. Bowel Motility: No BM reported Labs Reviewed:Mg 2.5, Cr 4.7,BUN 66, Glu 165, BUN 66, Na 131, Alb 3.1 Meds Noted:Versed, Fentanyl, Levophed,Cefepime. Skin: WNL Additional Notes: Patient remains on mechanical vent. Tube feedings are being tolerated with plans to advance tube feedings today. Flush 30 ml q 4 hours. Goal rate of tube feedings providing 1584 kcal/72 gm protein/640 ml water. Dialysis today 06/08. Agree with diet orders. Will monitor weight, labs, skin, meds, diet orders every Tuesday and Tuesday.
[2024-06-08 12:07] LABS: Hepatitis B Core Ab Total NON-REACTIVE (NON-REACTIVE)
[2024-06-08 12:21] LABS: Glucose Point of Care 155 mg/dl (65-105)
--- NOTE | 2024-06-08 13:04 | P.PNINT_ITS ---
Progress Note: A&P Assessment and Plan (1) Acute respiratory failure: Code(s): J96.00 - Acute respiratory failure, unspecified whether with hypoxia or hypercapnia Status: Acute Assessment and Plan: Patient with increasing oxygen requirements in the last 24 hours, brought to the ICU after midnight on 06/05/2024, chest x-ray showed bilateral diffuse pulmonary infiltrates/pulmonary edema. Patient was placed on BiPAP. ABG showed hypercapnic and hypoxemic respiratory failure -etiology likely related to pulmonary edema, pneumonia, ARDS -06/05: patient intubated for impending respiratory failure. Intubation was slightly challenging secondary to body habitus, small mouth, large tongue, redundant tissue in the hypopharynx and anterior vocal cords requiring cricoid pressure and use of glide scope. -patient placed on CMV mode of ventilation, peep of 14, 50% FiO2 -chest x-ray and ABGs reviewed, ventilator adjusted -continue bronchodilators -continue steroids for pneumonia - fentanyl and Versed infusion for analgosedation, will maintain RASS of -2 -daily SBT and SAT -continue dialysis for fluid removal (2) Septic shock: Code(s): A41.9 - Sepsis, unspecified organism; R65.21 - Severe sepsis with septic shock Status: Acute Assessment and Plan: Septic shock could be related to UTI, pneumonia -patient was hypotensive in the intermediate Unit and was transferred to the ICU which she received fluids, albumin -continue norepinephrine, will maintain MAP > 65 mmHg or SBP > 100 mmHg adequate end organ perfusion -off vasopressin since 06/06/2024 evening -patient is on vancomycin and cefepime -fluconazole was discontinued given her renal dysfunction -continue stress dose steroids -lactic acid has normalized (3) JOVI (acute kidney injury): Code(s): N17.9 - Acute kidney failure, unspecified Status: Acute Assessment and Plan: Patient with acute kidney injury, this morning her creatinine is 4.60 (creatinine on admission on 06/02/2024 was 2.10 and her creatinine on 04/26/2024 was 0.90) -etiology for acute kidney injury could be multifactorial, hypotension, shock, sepsis, UTI/pneumonia, hypoxia,? SLE flare, CHF, -CK levels are within normal limits -urine eosinophils were negative -urine electrolytes showed prerenal picture, patient seems to be volume overloaded -was given IV fluids and albumin overnight, will hold fluids for now -discussed with durable medical equipment technician at [facility], feels that the patient is unstable to be transferred at this time for CRRT, recommended conventional dialysis. -discussed with financial management consultant at [facility], agrees to conventional dialysis at this time -06/05: dialysis catheter was placed in the right IJ and exchange for the maida tral line -06/05: Initiate dialysis, with 3000 mL of fluid removal -06/06: Dialysis with 3000 mL in fluid removal -06/07: Dialysis with 3700 mL in fluid removal -patient to be dialyzed again today, discussed with Nephrology (4) Pulmonary edema: Code(s): J81.1 - Chronic pulmonary edema Status: Acute Assessment and Plan: Pulmonary edema likely related to acute kidney injury, ARDS, -did not respond to Bumex -continue fluid removal with dialysis (5) Type 2 diabetes mellitus: Code(s): E11.9 - Type 2 diabetes mellitus without complications Status: Acute Assessment and Plan: SSI and accucheks HbA1C is 5.7 this admission (6) Afib: Code(s): I48.91 - Unspecified atrial fibrillation Status: Acute Assessment and Plan: continue amiodarone -will stop flecainide (7) SLE (systemic lupus erythematosus): Code(s): M32.9 - Systemic lupus erythematosus, unspecified Status: Acute Assessment and Plan: ? SLE flare Continue stress dose steroids (8) Liver cirrhosis secondary to HOFFMANN: Code(s): K75.81 - Nonalcoholic steatohepatitis (HOFFMANN); K74.60 - Unspecified cirrhosis of liver Status: Acute Assessment and Plan: Mild elevation in LFTs, which are improving -continue to monitor (9) GERD (gastroesophageal reflux disease): Code(s): K21.9 - Gastro-esophageal reflux disease without esophagitis Status: Acute Assessment and Plan: Continue Protonix (10) Morbid obesity with BMI of 50.0-59.9, adult: Code(s): E66.01 - Morbid (severe) obesity due to excess calories; Z68.43 - Body mass index [BMI] 50.0-59.9, adult Status: Acute Assessment and Plan: Once extubated she will need lifestyle changes Plan DVT prophylaxis: Eliquis Stress ulcer prophylaxis: Protonix Nutrition: Patient tolerating tube feeds at 20 mL/hour, will increase to goal Code Status: Full code Critical Care Time Spent: 34 minutes 06/05: Discussed with JAMES Blunt, patient's sister in the conference room updated with patient's condition and plan of care. The [facility] is aware that patient is significantly ill and at condition is guarded. I also explained to her that we initiated transfer to [facility] but given her increased ventilatory support, the durable medical equipment technician at [facility] recommended starting conventional dialysis over [facility]. I answered all her questions. Discussed with patient's sister JAMES Blunt, on the phone and updated with patient's condition and plan of care. I answered all questions Due to a high probability of clinically significant, life threatening deterioration, the patient required my highest level of preparedness to intervene emergently and I personally spent this critical care time directly and personally managing the patient. This critical care time included obtaining a history; examining the patient; pulse oximetry; ordering and review of studies; arranging urgent treatment with development of a management plan; evaluation of patient's response to treatment; frequent reassessment; and discussions with other providers. It was exclusive of separately billable procedures and treating other patients and teaching time. Please see Assessment and Plan section and the rest of the note for further information on patient assessment and treatment This dictation may have been done utilizing a voice recognition system. Attempts have been made to correct errors. However, there may be uncorrected grammatical, spelling, and recognitions errors present. Subjective Date/time seen: 06/08/24 13:04 Interval history: Reason for consult: Acute respiratory failure, septic shock, acute kidney injury, pulmonary edema 06/05: Intubated 06/07/2024: Patient seen and examined the ICU, remains intubated on CMV mode of ventilation, peep of 14, 50% FiO2. Sedated with fentanyl and Versed infusions, patient opens her eyes, follows simple commands in all extremities and nods to questions. Patient had 3700 mL in fluid removal with dialysis yesterday. Febrile overnight with a T-max of 101.2?. Urine output remained low. Patient was on Levophed at 2 mcg/min this morning, which had to be increased during dialysis. Review of Systems Review of Systems: ROS unobtainable: Yes unobtainable due to endotracheal tube, unobtainable due to medical condition and unobtainable due to mental status Exam Narrative: General: Morbidly obese female currently intubated and sedated in no acute distress HEENT:? Pupils equal and reactive bilaterally, sclera is clear, ETT in place Neck:, short and thick neck, Respiratory:? Decreased and coarse breath sounds bilaterally, no wheezing, Cardiac:? S1-S2 is normal, regular rate and rhythm Abdomen:? Morbid obesity, soft, hypoactive bowel sounds Extremities:? Bilateral lower extremity pitting edema up to the thighs, decreased pedal pulses. Right calf is erythematous, warm Neuro:? Patient is intubated, sedated, opens her eyes, follows simple commands in all extremities and nods to questions Skin:? Erythema in the intertriginous region and under her pannus Psych:? Unable to assess at this time Objective Data Vital Signs Vital Signs: Vital Signs - 24 hr 06/07/24 13:15 06/07/24 13:15 06/07/24 13:24 Temperature Pulse Rate 64 64 61 Respiratory Rate 24 H 24 H Blood Pressure Pulse Oximetry 96 Oxygen Delivery Mechanical Ventilation Fraction of Inspired Oxygen 60 06/07/24 14:00 06/07/24 14:00 06/07/24 14:00 Temperature 99.3 F Pulse Rate 60 60 60 Respiratory Rate 24 H Blood Pressure 117/44 L 118/45 L Pulse Oximetry 95 Oxygen Delivery Fraction of Inspired Oxygen 06/07/24 14:00 06/07/24 14:00 06/07/24 16:00 Temperature Pulse Rate 60 60 68 Respiratory Rate 24 H 24 H Blood Pressure Pulse Oximetry 94 Oxygen Delivery Mechanical Ventilation Fraction of Inspired Oxygen 60 06/07/24 16:00 06/07/24 16:00 06/07/24 16:00 Temperature Pulse Rate 68 67 Respiratory Rate 24 H Blood Pressure Pulse Oximetry 94 Oxygen Delivery Mechanical Ventilation Fraction of Inspired Oxygen 60 60 06/07/24 16:00 06/07/24 16:00 06/07/24 16:00 Temperature 99.4 F Pulse Rate 67 68 67 Respiratory Rate 24 H 24 H Blood Pressure 122/49 L 123/48 L Pulse Oximetry 94 Oxygen Delivery Fraction of Inspired Oxygen 06/07/24 16:48 06/07/24 18:00 06/07/24 18:00 Temperature 99.4 F Pulse Rate 67 67 64 Respiratory Rate 24 H 24 H Blood Pressure 123/72 Pulse Oximetry 95 Oxygen Delivery Fraction of Inspired Oxygen 06/07/24 18:00 06/07/24 18:00 06/07/24 18:00 Temperature Pulse Rate 64 64 64 Respiratory Rate 24 H 24 H Blood Pressure 123/50 L Pulse Oximetry Oxygen Delivery Fraction of Inspired Oxygen 06/07/24 20:30 06/07/24 20:32 06/07/24 20:00 Temperature Pulse Rate 63 63 63 Respiratory Rate Blood Pressure 122/47 L Pulse Oximetry Oxygen Delivery Fraction of Inspired Oxygen 06/07/24 20:00 06/07/24 20:00 06/07/24 20:00 Temperature 101.2 F H Pulse Rate 63 63 63 Respiratory Rate 24 H 24 H 24 H Blood Pressure 122/47 L Pulse Oximetry 95 Oxygen Delivery Fraction of Inspired Oxygen 06/07/24 21:43 06/07/24 20:00 06/07/24 22:53 Temperature 100.9 F H Pulse Rate 60 Respiratory Rate Blood Pressure 122/48 L Pulse Oximetry Oxygen Delivery Fraction of Inspired Oxygen 60 06/07/24 20:00 06/07/24 20:00 06/07/24 21:45 Temperature Pulse Rate 62 60 Respiratory Rate Blood Pressure Pulse Oximetry 96 Oxygen Delivery Mechanical Ventilation Mechanical Ventilation Fraction of Inspired Oxygen 60 60 06/07/24 22:30 06/07/24 22:00 06/07/24 22:00 Temperature 100.2 F H Pulse Rate 60 60 Respiratory Rate 24 H Blood Pressure 128/50 L Pulse Oximetry Oxygen Delivery Fraction of Inspired Oxygen 06/07/24 22:00 06/07/24 22:38 06/07/24 23:25 Temperature Pulse Rate 60 60 60 Respiratory Rate 24 H Blood Pressure 122/48 L Pulse Oximetry 97 Oxygen Delivery Mechanical Ventilation Fraction of Inspired Oxygen 60 06/07/24 21:28 06/07/24 23:30 06/07/24 23:08 Temperature 100.2 F H Pulse Rate 60 60 Respiratory Rate 24 H Blood Pressure 119/46 L Pulse Oximetry Oxygen Delivery Fraction of Inspired Oxygen 06/07/24 23:36 06/07/24 23:36 06/07/24 22:00 Temperature Pulse Rate 60 60 60 Respiratory Rate 24 H Blood Pressure 125/51 L 125/51 L 128/50 L Pulse Oximetry 96 Oxygen Delivery Fraction of Inspired Oxygen 06/07/24 22:00 06/07/24 23:51 06/07/24 23:59 Temperature Pulse Rate 60 Respiratory Rate Blood Pressure Pulse Oximetry Oxygen Delivery Mechanical Ventilation Fraction of Inspired Oxygen 60 60 06/08/24 00:00 06/08/24 00:00 06/08/24 00:00 Temperature Pulse Rate 60 60 60 Respiratory Rate 24 H 24 H Blood Pressure 125/53 L 125/53 L Pulse Oximetry 97 Oxygen Delivery Fraction of Inspired Oxygen 06/08/24 00:00 06/08/24 00:00 06/08/24 00:15 Temperature Pulse Rate 60 60 61 Respiratory Rate 24 H Blood Pressure 122/51 L Pulse Oximetry Oxygen Delivery Fraction of Inspired Oxygen 06/08/24 00:30 06/08/24 00:45 06/08/24 02:00 Temperature 100.1 F H Pulse Rate 60 61 60 Respiratory Rate 24 H Blood Pressure 110/41 L 127/53 L 121/49 L Pulse Oximetry 96 Oxygen Delivery Fraction of Inspired Oxygen 06/08/24 02:00 06/08/24 01:00 06/08/24 02:00 Temperature Pulse Rate 60 60 60 Respiratory Rate Blood Pressure 120/50 L 121/49 L Pulse Oximetry Oxygen Delivery Fraction of Inspired Oxygen 06/08/24 02:30 06/08/24 02:45 06/08/24 04:00 Temperature Pulse Rate 61 60 67 Respiratory Rate Blood Pressure 123/52 L 115/50 L 121/52 L Pulse Oximetry Oxygen Delivery Fraction of Inspired Oxygen 06/08/24 02:00 06/08/24 04:00 06/08/24 02:00 Temperature Pulse Rate 60 67 60 Respiratory Rate 24 H 24 H 24 H Blood Pressure Pulse Oximetry Oxygen Delivery Fraction of Inspired Oxygen 06/08/24 04:00 06/08/24 05:38 06/08/24 06:00 Temperature Pulse Rate 67 60 60 Respiratory Rate 24 H 24 H Blood Pressure Pulse Oximetry 98 Oxygen Delivery Mechanical Ventilation Fraction of Inspired Oxygen 60 06/08/24 06:00 06/08/24 06:00 06/08/24 06:15 Temperature Pulse Rate 60 60 60 Respiratory Rate 24 H Blood Pressure 125/53 L 121/50 L Pulse Oximetry Oxygen Delivery Fraction of Inspired Oxygen 06/08/24 06:29 06/08/24 04:00 06/08/24 04:00 Temperature Pulse Rate 60 Respiratory Rate Blood Pressure 115/49 L Pulse Oximetry Oxygen Delivery Mechanical Ventilation Fraction of Inspired Oxygen 60 60 06/08/24 04:00 06/08/24 04:00 06/08/24 06:00 Temperature 98.7 F Pulse Rate 67 62 60 Respiratory Rate 24 H 24 H Blood Pressure 121/52 L 125/53 L Pulse Oximetry 94 95 Oxygen Delivery Fraction of Inspired Oxygen 06/08/24 06:00 06/08/24 07:48 06/08/24 07:48 Temperature Pulse Rate 60 60 60 Respiratory Rate 24 H Blood Pressure Pulse Oximetry 94 Oxygen Delivery Mechanical Ventilation Fraction of Inspired Oxygen 50 06/08/24 07:54 06/08/24 08:30 06/08/24 08:30 Temperature 98.3 F 98.3 F Pulse Rate 60 60 60 Respiratory Rate 24 H 24 H 24 H Blood Pressure 121/53 L 121/53 L Pulse Oximetry 94 94 Oxygen Delivery Fraction of Inspired Oxygen 06/08/24 08:44 06/08/24 09:00 06/08/24 08:00 Temperature Pulse Rate 60 60 60 Respiratory Rate Blood Pressure 125/54 L 118/50 L Pulse Oximetry Oxygen Delivery Fraction of Inspired Oxygen 06/08/24 08:00 06/08/24 08:00 06/08/24 08:00 Temperature Pulse Rate 60 60 60 Respiratory Rate 24 H 24 H Blood Pressure 118/51 L Pulse Oximetry Oxygen Delivery Fraction of Inspired Oxygen 06/08/24 09:40 06/08/24 09:15 06/08/24 09:45 Temperature Pulse Rate 60 60 60 Respiratory Rate Blood Pressure 97/37 L 112/47 L 87/34 L Pulse Oximetry Oxygen Delivery Fraction of Inspired Oxygen 06/08/24 09:50 06/08/24 09:55 06/08/24 08:00 Temperature 98.3 F Pulse Rate 60 60 60 Respiratory Rate 24 H Blood Pressure 97/37 L 102/48 L 118/51 L Pulse Oximetry 94 Oxygen Delivery Fraction of Inspired Oxygen 06/08/24 09:30 06/08/24 09:45 06/08/24 10:05 Temperature Pulse Rate 61 63 60 Respiratory Rate Blood Pressure 105/42 L 90/34 L 134/57 L Pulse Oximetry Oxygen Delivery Fraction of Inspired Oxygen 06/08/24 10:10 06/08/24 10:15 06/08/24 10:00 Temperature Pulse Rate 60 60 60 Respiratory Rate 24 H Blood Pressure 136/58 L 130/54 L Pulse Oximetry Oxygen Delivery Fraction of Inspired Oxygen 06/08/24 10:00 06/08/24 10:20 06/08/24 10:27 Temperature Pulse Rate 60 60 60 Respiratory Rate 24 H Blood Pressure 127/54 L 128/55 L Pulse Oximetry Oxygen Delivery Fraction of Inspired Oxygen 06/08/24 10:00 06/08/24 10:30 06/08/24 11:00 Temperature Pulse Rate 60 62 61 Respiratory Rate Blood Pressure 125/52 L 121/52 L 120/51 L Pulse Oximetry Oxygen Delivery Fraction of Inspired Oxygen 06/08/24 10:15 06/08/24 10:45 06/08/24 10:55 Temperature Pulse Rate 60 61 60 Respiratory Rate Blood Pressure 125/53 L 127/52 L 123/54 L Pulse Oximetry Oxygen Delivery Fraction of Inspired Oxygen 06/08/24 11:12 06/08/24 11:15 06/08/24 11:30 Temperature Pulse Rate 61 61 61 Respiratory Rate Blood Pressure 112/47 L 101/43 L Pulse Oximetry 95 Oxygen Delivery Mechanical Ventilation Fraction of Inspired Oxygen 50 06/08/24 11:45 06/08/24 12:00 06/08/24 12:15 Temperature Pulse Rate 65 62 60 Respiratory Rate Blood Pressure 100/41 L 101/43 L 128/58 L Pulse Oximetry Oxygen Delivery Fraction of Inspired Oxygen 06/08/24 12:30 06/08/24 12:45 06/08/24 08:00 Temperature Pulse Rate 60 60 Respiratory Rate Blood Pressure 122/57 L 118/53 L Pulse Oximetry 94 Oxygen Delivery Mechanical Ventilation Fraction of Inspired Oxygen 50 06/08/24 08:00 06/08/24 11:40 06/08/24 11:45 Temperature Pulse Rate 60 60 Respiratory Rate Blood Pressure 100/42 L 102/41 L Pulse Oximetry Oxygen Delivery Fraction of Inspired Oxygen 50 06/08/24 10:00 06/08/24 10:00 06/08/24 12:00 Temperature Pulse Rate 60 60 62 Respiratory Rate 24 H Blood Pressure 123/51 L 106/43 L Pulse Oximetry 93 Oxygen Delivery Fraction of Inspired Oxygen 06/08/24 12:08 06/08/24 12:13 06/08/24 12:00 Temperature Pulse Rate 60 60 62 Respiratory Rate 24 H Blood Pressure 135/56 L 120/55 L Pulse Oximetry Oxygen Delivery Fraction of Inspired Oxygen 06/08/24 12:00 Temperature Pulse Rate 62 Respiratory Rate 24 H Blood Pressure Pulse Oximetry Oxygen Delivery Fraction of Inspired Oxygen Intake/Output Intake/Output: Intake & Output 06/05/24 06/06/24 06/07/24 06/08/24 23:59 23:59 23:59 23:59 Intake Total 1802.2 1263.6 937.2 550.8 Output Total 3130 3230 4170 225 Balance -1327.8 -1966.4 -3232.8 325.8 Meds/Results Medications: Active Medications Generic Name Dose Route Start Last Admin Trade Name Freq PRN Reason Stop Dose Admin Acetaminophen 650 mg 06/07/24 21:53 06/07/24 22:30 Acetaminophen Elixir 325 Mg/10.15 Ml Udc PO 650 mg Q6H PRN Administration Mild Pain (1-3) or Fever Albuterol/Ipratropium 3 ml 06/05/24 11:15 06/08/24 07:38 Ipratropium 0.5 Mg/Albuterol Sulfate 2.5 Mg Ampul.Neb 3 Ml INHALATION 3 ml Q6HRT JOHN Administration Amiodarone HCl 200 mg 06/02/24 21:00 06/07/24 20:30 Amiodarone Hcl 200 Mg Tablet PO 200 mg Q12HR JOHN Administration Apixaban 5 mg 06/06/24 09:30 06/07/24 20:30 Apixaban 5 Mg Tablet PO 5 mg Q12HR JOHN Administration Dextrose 12.5 gm 06/05/24 11:46 Dextrose 50% 25 Gm/50 Ml Syringe IV PUSH PRN PRN Hypoglycemia Protocol Epoetin Shayan-epbx 10,000 units 06/08/24 20:00 06/08/24 10:21 Epoetin Shayan-Epbx 10,000 Units/Ml Vial IV PUSH 06/08/24 20:01 10,000 units ONCE ONE Administration Flecainide Acetate 100 mg 06/02/24 21:00 06/08/24 10:26 Flecainide Acetate 100 Mg Tablet PO Not Given Q12HR JOHN Gabapentin 200 mg 06/02/24 22:00 06/04/24 21:07 Gabapentin 100 Mg Capsule PO 200 mg Q8HR JOHN Administration Glucagon 1 mg 06/05/24 11:46 Glucagon For Inj 1 Mg Vial IM PRN PRN Hypoglycemia Protocol Glucose 15 gm 06/05/24 11:46 Glucose Oral Gel 15 Gm Of Glucse In 37.5 Gm Tube PO PRN PRN Hypoglycemia Protocol Hydrocortisone Sodium Succinate 100 mg 06/05/24 14:00 06/08/24 06:11 Hydrocortisone Sodium Succinate 100 Mg/2 Ml Vial IV PUSH 100 mg Q8HR JOHN Administration Norepinephrine Bitartrate 8 mg in 250 mls @ 7.5 mls/hr 06/05/24 00:35 06/08/24 12:13 Levophed 8 Mg/D5w 250 Ml IV CONT 4 mcg/min .Q24H JOHN 7.5 mls/hr Titration Protocol 4 MCG/MIN Fentanyl Citrate 2,500 mcg in 250 mls @ 2.5 mls/hr 06/05/24 08:35 06/08/24 12:00 Fentanyl 2,500 Mcg/Ns 250 Ml IV CONT 25 mcg/hr .Q72H JOHN 2.5 mls/hr Titration Protocol 25 MCG/HR Midazolam HCl 100 mg in 100 mls @ 1 mls/hr 06/05/24 08:35 06/08/24 12:00 Versed 100 Mg/Ns 100 Ml IV CONT 1 mg/hr .Q72H JOHN 1 mls/hr Titration Protocol 1 MG/HR Dextrose 1,000 mls @ 100 mls/hr 06/05/24 11:46 Dextrose 5% 1,000 Ml IVPB PRN PRN Hypoglycemia Protocol Cefepime HCl 1 gm in 50 mls @ 100 mls/hr 06/06/24 16:00 06/07/24 16:15 Maxipime 1 Gm/Ns 50 Ml IVPB Infused Q24H JOHN Infusion Albumin Human 50 mls @ 999 mls/hr 06/08/24 09:50 Albutein IVPB 06/12/24 08:39 Q10M PRN HYPOTENSION Insulin Aspart 3 - 6 units 06/05/24 12:00 06/08/24 12:20 Insulin Aspart (*Bkc) 100 Units/Ml SUB-Q Not Given Q6HR [facility] Protocol Midodrine 10 mg 06/05/24 09:00 06/08/24 11:53 Midodrine Hcl 10 Mg Tablet PO Not Given TID [facility] Multi-Ingred Cream/Lotion/Oil/Oint 1 applic 06/05/24 09:00 06/07/24 20:34 Mineral Oil/White Petrolatum Ointment EACH EYE 1 applic Q12HR JOHN Administration Pantoprazole Sodium 40 mg 06/06/24 09:00 06/07/24 20:31 Pantoprazole Sodium Iv 40 Mg Vial IV PUSH 40 mg Q12HR JOHN Administration Fluticasone/Salmeterol 2 puff 06/03/24 08:00 06/08/24 07:47 Fluticasone/Salmeterol 115-21 Mcg Inhaler 1 Puff INHALATION Not Given Q12HRT JOHN Sodium Chloride 10 ml 06/05/24 06:00 06/08/24 06:12 Central Line Flush IV PUSH 10 ml Q8HR JOHN Administration Sodium Chloride 20 ml 06/05/24 03:12 Central Line Flush IV PUSH PRN PRN after blood draws Umeclidinium Braymer 1 puff 06/03/24 08:00 06/07/24 07:15 Umeclidinium Braymer 62.5 Mcg Ellipta INHALATION 1 puff DAILYRT JOHN Administration Radiology Results: ITS Impressions Renal Ultrasound 06/04/24 15:06 IMPRESSION: 1. Normal kidneys. No hydronephrosis. Chest/Abdomen/Pelvis CT 06/04/24 19:12 IMPRESSION: 1. Diffuse lung disease, consistent with pulmonary edema versus pneumonia. 2. Moderate volume of ascites. Abdomen X-Ray 06/05/24 09:37 IMPRESSION: 1. Lines and tubes all in expected positions. 2. Diffuse patchy bilateral lung disease which could represent pulmonary edema and/or pneumonia. 3. Cardiomegaly. Venous Doppler Study 06/07/24 17:01 IMPRESSION: 1. No deep venous thrombosis. Chest X-Ray 06/08/24 07:20 Impression: Stable extensive bilateral pulmonary consolidation, worst at the left lung base. Correlate for pulmonary edema versus pneumonia. Stable support tubes and pacemaker device. Labs Labs: Laboratory Results - last 24 hr 06/05/24 06/07/24 06/07/24 04:20 17:42 23:33 WBC RBC Hgb Hct MCV MCH MCHC RDW Plt Count MPV Immature Gran % (Auto) Neut % (Auto) Lymph % (Auto) [place] % (Auto) Eos % (Auto) Baso % (Auto) Lymph # (Auto) [place] # (Auto) Eos # (Auto) Baso # (Auto) Abs Immat Gran (auto) Absolute Neuts (auto) Absolute Nucleated RBC Nucleated RBC % Puncture Site ABG pH ABG pCO2 ABG pO2 ABG PO2/FiO2 Ratio ABG HCO3 ABG O2 Saturation ABG O2 Content ABG Base Excess A-a Gradient Oxyhemoglobin Carboxyhemoglobin Methemoglobin Reduced Hemoglobin Total Hemoglobin O2 Delivery Device O2 Liters/Min Minute Volume Vent Rate Vent Mode FiO2 Tidal Volume PEEP Peak Inspir Pressure Pressure Support Sodium Potassium Chloride Carbon Dioxide Anion Gap BUN Creatinine Estim Creat Clear Calc Estimated GFR Glucose POC Capillary Glucose 153 H 154 H Calcium Phosphorus Magnesium Total Bilirubin AST ALT Alkaline Phosphatase Total Protein Albumin Random Vancomycin Hep B Core Total Ab Non-reactive 06/08/24 06/08/24 05:27 12:18 WBC 10.5 H RBC 3.71 L Hgb 10.1 L Hct 31.2 L MCV 84.1 MCH 27.2 MCHC 32.4 RDW 17.3 H Plt Count 349 MPV 9.5 Immature Gran % (Auto) 0.6 H Neut % (Auto) 82.8 H Lymph % (Auto) 8.2 L [place] % (Auto) 8.3 Eos % (Auto) 0.0 Baso % (Auto) 0.1 L Lymph # (Auto) 0.86 L [place] # (Auto) 0.9 H Eos # (Auto) 0.0 Baso # (Auto) 0.0 Abs Immat Gran (auto) 0.06 H Absolute Neuts (auto) 8.7 H Absolute Nucleated RBC 0.000 Nucleated RBC % 0.0 Puncture Site Artline ABG pH 7.436 ABG pCO2 41.4 ABG pO2 110.6 H ABG PO2/FiO2 Ratio 1.84 ABG HCO3 27.2 H ABG O2 Saturation 98.2 ABG O2 Content 15.2 L ABG Base Excess 2.8 A-a Gradient 271.7 Oxyhemoglobin 98.1 Carboxyhemoglobin 0.1 Methemoglobin 0.1 Reduced Hemoglobin 1.7 Total Hemoglobin 10.9 L O2 Delivery Device Ventilator O2 Liters/Min Not Reportable Minute Volume Not Reportable Vent Rate 24 Vent Mode Cmv FiO2 60 Tidal Volume 400 PEEP 14 Peak Inspir Pressure Not Reportable Pressure Support Not Reportable Sodium 131 L Potassium 4.7 Chloride 97 L Carbon Dioxide 25 Anion Gap 9 BUN 66 H D Creatinine 4.70 H Estim Creat Clear Calc 21 Estimated GFR 10 L Glucose 165 H POC Capillary Glucose 155 H Calcium 9.9 Phosphorus 4.9 H Magnesium 2.5 H Total Bilirubin 1.8 H AST 96 H ALT 42 H Alkaline Phosphatase 185 H Total Protein 6.0 L Albumin 3.1 L Random Vancomycin 22.9 H Hep B Core Total Ab Quality VTE Prophylaxis VTE prophylaxis: pharmacologic ordered
[2024-06-08] MEDS: HEPARIN SODIUM 1,000 UNITS/ML VIAL 5000 UNITS (13:11)
[2024-06-08] MEDS: AMIODARONE HCL 200 MG TABLET PO ×2 (13:20→20:27)
[2024-06-08] MEDS: PANTOPRAZOLE SODIUM IV 40 MG VIAL IV PUSH ×2 (13:21→20:27)
[2024-06-08] MEDS: MINERAL OIL/WHITE PETROLATUM OINTMENT 1 APPLIC EACH EYE ×2 (13:21→20:39)
[2024-06-08] MEDS: MIDODRINE HCL 10 MG TABLET PO ×2 (13:21→16:47)
[2024-06-08] MEDS: APIXABAN 5 MG TABLET PO ×2 (13:21→20:27)
--- NOTE | 2024-06-08 13:42 | P.PNIM_ITS ---
Progress Note: A&P Assessment and Plan (1) Acute respiratory failure: Code(s): J96.00 - Acute respiratory failure, unspecified whether with hypoxia or hypercapnia Status: Acute Assessment and Plan: Patient with increasing oxygen requirements in the last 24 hours, brought to the ICU after midnight on 06/05/2024, chest x-ray showed bilateral diffuse pulmonary infiltrates/pulmonary edema. Patient was placed on BiPAP. ABG showed hypercapnic and hypoxemic respiratory failure -etiology likely related to pulmonary edema, pneumonia, ARDS -06/05: patient intubated for impending respiratory failure. Intubation was slightly challenging secondary to body habitus, small mouth, large tongue, redundant tissue in the hypopharynx and anterior vocal cords requiring cricoid pressure and use of glide scope. -patient placed on CMV mode of ventilation, peep of 14, 50% FiO2 -chest x-ray and ABGs reviewed, ventilator adjusted -continue bronchodilators -continue steroids for pneumonia - fentanyl and Versed infusion for analgosedation, will maintain RASS of -2 -daily SBT and SAT -continue dialysis for fluid removal (2) Septic shock: Code(s): A41.9 - Sepsis, unspecified organism; R65.21 - Severe sepsis with septic shock Status: Acute Assessment and Plan: Septic shock could be related to UTI, pneumonia -patient was hypotensive in the intermediate Unit and was transferred to the ICU which she received fluids, albumin -continue norepinephrine, will maintain MAP > 65 mmHg or SBP > 100 mmHg adequate end organ perfusion -off vasopressin since 06/06/2024 evening -patient is on vancomycin and cefepime -fluconazole was discontinued given her renal dysfunction -continue stress dose steroids -lactic acid has normalized (3) JOVI (acute kidney injury): Code(s): N17.9 - Acute kidney failure, unspecified Status: Acute Assessment and Plan: Patient with acute kidney injury, this morning her creatinine is 4.60 (creatinine on admission on 06/02/2024 was 2.10 and her creatinine on 04/26/2024 was 0.90) -etiology for acute kidney injury could be multifactorial, hypotension, shock, sepsis, UTI/pneumonia, hypoxia,? SLE flare, CHF, -CK levels are within normal limits -urine eosinophils were negative -urine electrolytes showed prerenal picture, patient seems to be volume overloaded -was given IV fluids and albumin overnight, will hold fluids for now -discussed with biomedical equipment technician at [facility], feels that the patient is unstable to be transferred at this time for CRRT, recommended conventional dialysis. -discussed with school psychologist at [facility], agrees to conventional dialysis at this time -06/05: dialysis catheter was placed in the right IJ and exchange for the maida tral line -06/05: Initiate dialysis, with 3000 mL of fluid removal -06/06: Dialysis with 3000 mL in fluid removal -06/07: Dialysis with 3700 mL in fluid removal -patient to be dialyzed again today, discussed with Nephrology (4) Pulmonary edema: Code(s): J81.1 - Chronic pulmonary edema Status: Acute Assessment and Plan: Pulmonary edema likely related to acute kidney injury, ARDS, -did not respond to Bumex -continue fluid removal with dialysis (5) Type 2 diabetes mellitus: Code(s): E11.9 - Type 2 diabetes mellitus without complications Status: Acute Assessment and Plan: SSI and accucheks HbA1C is 5.7 this admission (6) Afib: Code(s): I48.91 - Unspecified atrial fibrillation Status: Acute Assessment and Plan: continue amiodarone -will stop flecainide (7) SLE (systemic lupus erythematosus): Code(s): M32.9 - Systemic lupus erythematosus, unspecified Status: Acute Assessment and Plan: ? SLE flare Continue stress dose steroids (8) Liver cirrhosis secondary to HOFFMANN: Code(s): K75.81 - Nonalcoholic steatohepatitis (HOFFMANN); K74.60 - Unspecified cirrhosis of liver Status: Acute Assessment and Plan: Mild elevation in LFTs, which are improving -continue to monitor (9) GERD (gastroesophageal reflux disease): Code(s): K21.9 - Gastro-esophageal reflux disease without esophagitis Status: Acute Assessment and Plan: Continue Protonix (10) Morbid obesity with BMI of 50.0-59.9, adult: Code(s): E66.01 - Morbid (severe) obesity due to excess calories; Z68.43 - Body mass index [BMI] 50.0-59.9, adult Status: Acute Assessment and Plan: Once extubated she will need lifestyle changes Plan DVT prophylaxis: Eliquis Stress ulcer prophylaxis: Protonix Nutrition: Patient tolerating tube feeds at 20 mL/hour, will increase to goal Code Status: Full code Subjective Date/time seen: 06/08/24 13:42 Interval history: Chart reviewed, getting dialysis currently. Review of Systems Review of Systems: ROS unobtainable: Yes unobtainable due to mental status Exam Narrative: General: Morbidly obese female currently intubated and sedated in no acute distress HEENT:? Pupils equal and reactive bilaterally, sclera is clear, ETT in place Neck:, short and thick neck, Respiratory:? Decreased and coarse breath sounds bilaterally, no wheezing, Cardiac:? S1-S2 is normal, regular rate and rhythm Abdomen:? Morbid obesity, soft, hypoactive bowel sounds Extremities:? Bilateral lower extremity pitting edema up to the thighs, decreased pedal pulses. Right calf is erythematous, warm Neuro:? Patient is intubated, sedated Skin:? Erythema in the intertriginous region and under her pannus Psych:? Unable to assess at this time Objective Data Vital Signs Vital Signs: Vital Signs - 24 hr 06/07/24 14:00 06/07/24 14:00 06/07/24 14:00 Temperature 99.3 F Pulse Rate 60 60 60 Respiratory Rate 24 H Blood Pressure 117/44 L 118/45 L Pulse Oximetry 95 Oxygen Delivery Fraction of Inspired Oxygen 06/07/24 14:00 06/07/24 14:00 06/07/24 16:00 Temperature Pulse Rate 60 60 68 Respiratory Rate 24 H 24 H Blood Pressure Pulse Oximetry 94 Oxygen Delivery Mechanical Ventilation Fraction of Inspired Oxygen 60 06/07/24 16:00 06/07/24 16:00 06/07/24 16:00 Temperature Pulse Rate 68 67 Respiratory Rate 24 H Blood Pressure Pulse Oximetry 94 Oxygen Delivery Mechanical Ventilation Fraction of Inspired Oxygen 60 60 06/07/24 16:00 06/07/24 16:00 06/07/24 16:00 Temperature 99.4 F Pulse Rate 67 68 67 Respiratory Rate 24 H 24 H Blood Pressure 122/49 L 123/48 L Pulse Oximetry 94 Oxygen Delivery Fraction of Inspired Oxygen 06/07/24 16:48 06/07/24 18:00 06/07/24 18:00 Temperature 99.4 F Pulse Rate 67 67 64 Respiratory Rate 24 H 24 H Blood Pressure 123/72 Pulse Oximetry 95 Oxygen Delivery Fraction of Inspired Oxygen 06/07/24 18:00 06/07/24 18:00 06/07/24 18:00 Temperature Pulse Rate 64 64 64 Respiratory Rate 24 H 24 H Blood Pressure 123/50 L Pulse Oximetry Oxygen Delivery Fraction of Inspired Oxygen 06/07/24 20:30 06/07/24 20:32 06/07/24 20:00 Temperature Pulse Rate 63 63 63 Respiratory Rate Blood Pressure 122/47 L Pulse Oximetry Oxygen Delivery Fraction of Inspired Oxygen 06/07/24 20:00 06/07/24 20:00 06/07/24 20:00 Temperature 101.2 F H Pulse Rate 63 63 63 Respiratory Rate 24 H 24 H 24 H Blood Pressure 122/47 L Pulse Oximetry 95 Oxygen Delivery Fraction of Inspired Oxygen 06/07/24 21:43 06/07/24 20:00 06/07/24 22:53 Temperature 100.9 F H Pulse Rate 60 Respiratory Rate Blood Pressure 122/48 L Pulse Oximetry Oxygen Delivery Fraction of Inspired Oxygen 60 06/07/24 20:00 06/07/24 20:00 06/07/24 21:45 Temperature Pulse Rate 62 60 Respiratory Rate Blood Pressure Pulse Oximetry 96 Oxygen Delivery Mechanical Ventilation Mechanical Ventilation Fraction of Inspired Oxygen 60 60 06/07/24 22:30 06/07/24 22:00 06/07/24 22:00 Temperature 100.2 F H Pulse Rate 60 60 Respiratory Rate 24 H Blood Pressure 128/50 L Pulse Oximetry Oxygen Delivery Fraction of Inspired Oxygen 06/07/24 22:00 06/07/24 22:38 06/07/24 23:25 Temperature Pulse Rate 60 60 60 Respiratory Rate 24 H Blood Pressure 122/48 L Pulse Oximetry 97 Oxygen Delivery Mechanical Ventilation Fraction of Inspired Oxygen 60 06/07/24 21:28 06/07/24 23:30 06/07/24 23:08 Temperature 100.2 F H Pulse Rate 60 60 Respiratory Rate 24 H Blood Pressure 119/46 L Pulse Oximetry Oxygen Delivery Fraction of Inspired Oxygen 06/07/24 23:36 06/07/24 23:36 06/07/24 22:00 Temperature Pulse Rate 60 60 60 Respiratory Rate 24 H Blood Pressure 125/51 L 125/51 L 128/50 L Pulse Oximetry 96 Oxygen Delivery Fraction of Inspired Oxygen 06/07/24 22:00 06/07/24 23:51 06/07/24 23:59 Temperature Pulse Rate 60 Respiratory Rate Blood Pressure Pulse Oximetry Oxygen Delivery Mechanical Ventilation Fraction of Inspired Oxygen 60 60 06/08/24 00:00 06/08/24 00:00 06/08/24 00:00 Temperature Pulse Rate 60 60 60 Respiratory Rate 24 H 24 H Blood Pressure 125/53 L 125/53 L Pulse Oximetry 97 Oxygen Delivery Fraction of Inspired Oxygen 06/08/24 00:00 06/08/24 00:00 06/08/24 00:15 Temperature Pulse Rate 60 60 61 Respiratory Rate 24 H Blood Pressure 122/51 L Pulse Oximetry Oxygen Delivery Fraction of Inspired Oxygen 06/08/24 00:30 06/08/24 00:45 06/08/24 02:00 Temperature 100.1 F H Pulse Rate 60 61 60 Respiratory Rate 24 H Blood Pressure 110/41 L 127/53 L 121/49 L Pulse Oximetry 96 Oxygen Delivery Fraction of Inspired Oxygen 06/08/24 02:00 06/08/24 01:00 06/08/24 02:00 Temperature Pulse Rate 60 60 60 Respiratory Rate Blood Pressure 120/50 L 121/49 L Pulse Oximetry Oxygen Delivery Fraction of Inspired Oxygen 06/08/24 02:30 06/08/24 02:45 06/08/24 04:00 Temperature Pulse Rate 61 60 67 Respiratory Rate Blood Pressure 123/52 L 115/50 L 121/52 L Pulse Oximetry Oxygen Delivery Fraction of Inspired Oxygen 06/08/24 02:00 06/08/24 04:00 06/08/24 02:00 Temperature Pulse Rate 60 67 60 Respiratory Rate 24 H 24 H 24 H Blood Pressure Pulse Oximetry Oxygen Delivery Fraction of Inspired Oxygen 06/08/24 04:00 06/08/24 05:38 06/08/24 06:00 Temperature Pulse Rate 67 60 60 Respiratory Rate 24 H 24 H Blood Pressure Pulse Oximetry 98 Oxygen Delivery Mechanical Ventilation Fraction of Inspired Oxygen 60 06/08/24 06:00 06/08/24 06:00 06/08/24 06:15 Temperature Pulse Rate 60 60 60 Respiratory Rate 24 H Blood Pressure 125/53 L 121/50 L Pulse Oximetry Oxygen Delivery Fraction of Inspired Oxygen 06/08/24 06:29 06/08/24 04:00 06/08/24 04:00 Temperature Pulse Rate 60 Respiratory Rate Blood Pressure 115/49 L Pulse Oximetry Oxygen Delivery Mechanical Ventilation Fraction of Inspired Oxygen 60 60 06/08/24 04:00 06/08/24 04:00 06/08/24 06:00 Temperature 98.7 F Pulse Rate 67 62 60 Respiratory Rate 24 H 24 H Blood Pressure 121/52 L 125/53 L Pulse Oximetry 94 95 Oxygen Delivery Fraction of Inspired Oxygen 06/08/24 06:00 06/08/24 07:48 06/08/24 07:48 Temperature Pulse Rate 60 60 60 Respiratory Rate 24 H Blood Pressure Pulse Oximetry 94 Oxygen Delivery Mechanical Ventilation Fraction of Inspired Oxygen 50 06/08/24 07:54 06/08/24 08:30 06/08/24 08:30 Temperature 98.3 F 98.3 F Pulse Rate 60 60 60 Respiratory Rate 24 H 24 H 24 H Blood Pressure 121/53 L 121/53 L Pulse Oximetry 94 94 Oxygen Delivery Fraction of Inspired Oxygen 06/08/24 08:44 06/08/24 09:00 06/08/24 08:00 Temperature Pulse Rate 60 60 60 Respiratory Rate Blood Pressure 125/54 L 118/50 L Pulse Oximetry Oxygen Delivery Fraction of Inspired Oxygen 06/08/24 08:00 06/08/24 08:00 06/08/24 08:00 Temperature Pulse Rate 60 60 60 Respiratory Rate 24 H 24 H Blood Pressure 118/51 L Pulse Oximetry Oxygen Delivery Fraction of Inspired Oxygen 06/08/24 09:40 06/08/24 09:15 06/08/24 09:45 Temperature Pulse Rate 60 60 60 Respiratory Rate Blood Pressure 97/37 L 112/47 L 87/34 L Pulse Oximetry Oxygen Delivery Fraction of Inspired Oxygen 06/08/24 09:50 06/08/24 09:55 06/08/24 08:00 Temperature 98.3 F Pulse Rate 60 60 60 Respiratory Rate 24 H Blood Pressure 97/37 L 102/48 L 118/51 L Pulse Oximetry 94 Oxygen Delivery Fraction of Inspired Oxygen 06/08/24 09:30 06/08/24 09:45 06/08/24 10:05 Temperature Pulse Rate 61 63 60 Respiratory Rate Blood Pressure 105/42 L 90/34 L 134/57 L Pulse Oximetry Oxygen Delivery Fraction of Inspired Oxygen 06/08/24 10:10 06/08/24 10:15 06/08/24 10:00 Temperature Pulse Rate 60 60 60 Respiratory Rate 24 H Blood Pressure 136/58 L 130/54 L Pulse Oximetry Oxygen Delivery Fraction of Inspired Oxygen 06/08/24 10:00 06/08/24 10:20 06/08/24 10:27 Temperature Pulse Rate 60 60 60 Respiratory Rate 24 H Blood Pressure 127/54 L 128/55 L Pulse Oximetry Oxygen Delivery Fraction of Inspired Oxygen 06/08/24 10:00 06/08/24 10:30 06/08/24 11:00 Temperature Pulse Rate 60 62 61 Respiratory Rate Blood Pressure 125/52 L 121/52 L 120/51 L Pulse Oximetry Oxygen Delivery Fraction of Inspired Oxygen 06/08/24 10:15 06/08/24 10:45 06/08/24 10:55 Temperature Pulse Rate 60 61 60 Respiratory Rate Blood Pressure 125/53 L 127/52 L 123/54 L Pulse Oximetry Oxygen Delivery Fraction of Inspired Oxygen 06/08/24 11:12 06/08/24 11:15 06/08/24 11:30 Temperature Pulse Rate 61 61 61 Respiratory Rate Blood Pressure 112/47 L 101/43 L Pulse Oximetry 95 Oxygen Delivery Mechanical Ventilation Fraction of Inspired Oxygen 50 06/08/24 11:45 06/08/24 12:00 06/08/24 12:15 Temperature Pulse Rate 65 62 60 Respiratory Rate Blood Pressure 100/41 L 101/43 L 128/58 L Pulse Oximetry Oxygen Delivery Fraction of Inspired Oxygen 06/08/24 12:30 06/08/24 12:45 06/08/24 08:00 Temperature Pulse Rate 60 60 Respiratory Rate Blood Pressure 122/57 L 118/53 L Pulse Oximetry 94 Oxygen Delivery Mechanical Ventilation Fraction of Inspired Oxygen 50 06/08/24 08:00 06/08/24 11:40 06/08/24 11:45 Temperature Pulse Rate 60 60 Respiratory Rate Blood Pressure 100/42 L 102/41 L Pulse Oximetry Oxygen Delivery Fraction of Inspired Oxygen 50 06/08/24 10:00 06/08/24 10:00 06/08/24 12:00 Temperature Pulse Rate 60 60 62 Respiratory Rate 24 H Blood Pressure 123/51 L 106/43 L Pulse Oximetry 93 Oxygen Delivery Fraction of Inspired Oxygen 06/08/24 12:08 06/08/24 12:13 06/08/24 12:00 Temperature Pulse Rate 60 60 62 Respiratory Rate 24 H Blood Pressure 135/56 L 120/55 L Pulse Oximetry Oxygen Delivery Fraction of Inspired Oxygen 06/08/24 12:00 06/08/24 13:18 06/08/24 13:20 Temperature Pulse Rate 62 60 60 Respiratory Rate 24 H Blood Pressure 130/57 L Pulse Oximetry Oxygen Delivery Fraction of Inspired Oxygen 06/08/24 12:51 06/08/24 13:02 Temperature 98.2 F Pulse Rate 61 60 Respiratory Rate 20 Blood Pressure 131/64 122/54 L Pulse Oximetry 96 Oxygen Delivery Fraction of Inspired Oxygen Intake/Output Intake/Output: Intake & Output 06/05/24 06/06/24 06/07/24 06/08/24 23:59 23:59 23:59 23:59 Intake Total 1802.2 1263.6 937.2 558.9 Output Total 3130 3230 4170 3129 Balance -1327.8 -1966.4 -3232.8 -2570.1 Meds/Results Medications: Active Medications Generic Name Dose Route Start Last Admin Trade Name Freq PRN Reason Stop Dose Admin Acetaminophen 650 mg 06/07/24 21:53 06/07/24 22:30 Acetaminophen Elixir 325 Mg/10.15 Ml Udc PO 650 mg Q6H PRN Administration Mild Pain (1-3) or Fever Albuterol/Ipratropium 3 ml 06/05/24 11:15 06/08/24 07:38 Ipratropium 0.5 Mg/Albuterol Sulfate 2.5 Mg Ampul.Neb 3 Ml INHALATION 3 ml Q6HRT JOHN Administration Amiodarone HCl 200 mg 06/02/24 21:00 06/08/24 13:20 Amiodarone Hcl 200 Mg Tablet PO 200 mg Q12HR JOHN Administration Apixaban 5 mg 06/06/24 09:30 06/08/24 13:21 Apixaban 5 Mg Tablet PO 5 mg Q12HR JOHN Administration Dextrose 12.5 gm 06/05/24 11:46 Dextrose 50% 25 Gm/50 Ml Syringe IV PUSH PRN PRN Hypoglycemia Protocol Epoetin Shayan-epbx 10,000 units 06/08/24 20:00 06/08/24 10:21 Epoetin Shayan-Epbx 10,000 Units/Ml Vial IV PUSH 06/08/24 20:01 10,000 units ONCE ONE Administration Flecainide Acetate 100 mg 06/02/24 21:00 06/08/24 10:26 Flecainide Acetate 100 Mg Tablet PO Not Given Q12HR JOHN Gabapentin 200 mg 06/02/24 22:00 06/04/24 21:07 Gabapentin 100 Mg Capsule PO 200 mg Q8HR JOHN Administration Glucagon 1 mg 06/05/24 11:46 Glucagon For Inj 1 Mg Vial IM PRN PRN Hypoglycemia Protocol Glucose 15 gm 06/05/24 11:46 Glucose Oral Gel 15 Gm Of Glucse In 37.5 Gm Tube PO PRN PRN Hypoglycemia Protocol Hydrocortisone Sodium Succinate 100 mg 06/05/24 14:00 06/08/24 13:22 Hydrocortisone Sodium Succinate 100 Mg/2 Ml Vial IV PUSH 100 mg Q8HR JOHN Administration Norepinephrine Bitartrate 8 mg in 250 mls @ 5.625 mls/hr 06/05/24 00:35 06/08/24 13:18 Levophed 8 Mg/D5w 250 Ml IV CONT 3 mcg/min .Q24H JOHN 5.63 mls/hr Titration Protocol 3 MCG/MIN Fentanyl Citrate 2,500 mcg in 250 mls @ 2.5 mls/hr 06/05/24 08:35 06/08/24 12:00 Fentanyl 2,500 Mcg/Ns 250 Ml IV CONT 25 mcg/hr .Q72H JOHN 2.5 mls/hr Titration Protocol 25 MCG/HR Midazolam HCl 100 mg in 100 mls @ 1 mls/hr 06/05/24 08:35 06/08/24 12:00 Versed 100 Mg/Ns 100 Ml IV CONT 1 mg/hr .Q72H JOHN 1 mls/hr Titration Protocol 1 MG/HR Dextrose 1,000 mls @ 100 mls/hr 06/05/24 11:46 Dextrose 5% 1,000 Ml IVPB PRN PRN Hypoglycemia Protocol Cefepime HCl 1 gm in 50 mls @ 100 mls/hr 06/06/24 16:00 06/07/24 16:15 Maxipime 1 Gm/Ns 50 Ml IVPB Infused Q24H JOHN Infusion Albumin Human 50 mls @ 999 mls/hr 06/08/24 09:50 Albutein IVPB 06/12/24 08:39 Q10M PRN HYPOTENSION Insulin Aspart 3 - 6 units 06/05/24 12:00 06/08/24 12:20 Insulin Aspart (*Bkc) 100 Units/Ml SUB-Q Not Given Q6HR JOHN Protocol Midodrine 10 mg 06/05/24 09:00 06/08/24 13:21 Midodrine Hcl 10 Mg Tablet PO 10 mg TID JOHN Administration Multi-Ingred Cream/Lotion/Oil/Oint 1 applic 06/05/24 09:00 06/08/24 13:21 Mineral Oil/White Petrolatum Ointment EACH EYE 1 applic Q12HR JOHN Administration Pantoprazole Sodium 40 mg 06/06/24 09:00 06/08/24 13:21 Pantoprazole Sodium Iv 40 Mg Vial IV PUSH 40 mg Q12HR JOHN Administration Fluticasone/Salmeterol 2 puff 06/03/24 08:00 06/08/24 07:47 Fluticasone/Salmeterol 115-21 Mcg Inhaler 1 Puff INHALATION Not Given Q12HRT JOHN Sodium Chloride 10 ml 06/05/24 06:00 06/08/24 13:23 Central Line Flush IV PUSH 10 ml Q8HR JOHN Administration Sodium Chloride 20 ml 06/05/24 03:12 Central Line Flush IV PUSH PRN PRN after blood draws Umeclidinium Grand Chain 1 puff 06/03/24 08:00 06/07/24 07:15 Umeclidinium Grand Chain 62.5 Mcg Ellipta INHALATION 1 puff DAILYRT JOHN Administration Radiology Results: ITS Impressions Renal Ultrasound 06/04/24 15:06 IMPRESSION: 1. Normal kidneys. No hydronephrosis. Chest/Abdomen/Pelvis CT 06/04/24 19:12 IMPRESSION: 1. Diffuse lung disease, consistent with pulmonary edema versus pneumonia. 2. Moderate volume of ascites. Abdomen X-Ray 06/05/24 09:37 IMPRESSION: 1. Lines and tubes all in expected positions. 2. Diffuse patchy bilateral lung disease which could represent pulmonary edema and/or pneumonia. 3. Cardiomegaly. Venous Doppler Study 06/07/24 17:01 IMPRESSION: 1. No deep venous thrombosis. Chest X-Ray 06/08/24 07:20 Impression: Stable extensive bilateral pulmonary consolidation, worst at the left lung base. Correlate for pulmonary edema versus pneumonia. Stable support tubes and pacemaker device. Labs Labs: Laboratory Results - last 24 hr 06/05/24 06/07/24 06/07/24 04:20 17:42 23:33 WBC RBC Hgb Hct MCV MCH MCHC RDW Plt Count MPV Immature Gran % (Auto) Neut % (Auto) Lymph % (Auto) [place] % (Auto) Eos % (Auto) Baso % (Auto) Lymph # (Auto) [place] # (Auto) Eos # (Auto) Baso # (Auto) Abs Immat Gran (auto) Absolute Neuts (auto) Absolute Nucleated RBC Nucleated RBC % Puncture Site ABG pH ABG pCO2 ABG pO2 ABG PO2/FiO2 Ratio ABG HCO3 ABG O2 Saturation ABG O2 Content ABG Base Excess A-a Gradient Oxyhemoglobin Carboxyhemoglobin Methemoglobin Reduced Hemoglobin Total Hemoglobin O2 Delivery Device O2 Liters/Min Minute Volume Vent Rate Vent Mode FiO2 Tidal Volume PEEP Peak Inspir Pressure Pressure Support Sodium Potassium Chloride Carbon Dioxide Anion Gap BUN Creatinine Estim Creat Clear Calc Estimated GFR Glucose POC Capillary Glucose 153 H 154 H Calcium Phosphorus Magnesium Total Bilirubin AST ALT Alkaline Phosphatase Total Protein Albumin Random Vancomycin Hep B Core Total Ab Non-reactive 06/08/24 06/08/24 05:27 12:18 WBC 10.5 H RBC 3.71 L Hgb 10.1 L Hct 31.2 L MCV 84.1 MCH 27.2 MCHC 32.4 RDW 17.3 H Plt Count 349 MPV 9.5 Immature Gran % (Auto) 0.6 H Neut % (Auto) 82.8 H Lymph % (Auto) 8.2 L [place] % (Auto) 8.3 Eos % (Auto) 0.0 Baso % (Auto) 0.1 L Lymph # (Auto) 0.86 L [place] # (Auto) 0.9 H Eos # (Auto) 0.0 Baso # (Auto) 0.0 Abs Immat Gran (auto) 0.06 H Absolute Neuts (auto) 8.7 H Absolute Nucleated RBC 0.000 Nucleated RBC % 0.0 Puncture Site Artline ABG pH 7.436 ABG pCO2 41.4 ABG pO2 110.6 H ABG PO2/FiO2 Ratio 1.84 ABG HCO3 27.2 H ABG O2 Saturation 98.2 ABG O2 Content 15.2 L ABG Base Excess 2.8 A-a Gradient 271.7 Oxyhemoglobin 98.1 Carboxyhemoglobin 0.1 Methemoglobin 0.1 Reduced Hemoglobin 1.7 Total Hemoglobin 10.9 L O2 Delivery Device Ventilator O2 Liters/Min Not Reportable Minute Volume Not Reportable Vent Rate 24 Vent Mode Cmv FiO2 60 Tidal Volume 400 PEEP 14 Peak Inspir Pressure Not Reportable Pressure Support Not Reportable Sodium 131 L Potassium 4.7 Chloride 97 L Carbon Dioxide 25 Anion Gap 9 BUN 66 H D Creatinine 4.70 H Estim Creat Clear Calc 21 Estimated GFR 10 L Glucose 165 H POC Capillary Glucose 155 H Calcium 9.9 Phosphorus 4.9 H Magnesium 2.5 H Total Bilirubin 1.8 H AST 96 H ALT 42 H Alkaline Phosphatase 185 H Total Protein 6.0 L Albumin 3.1 L Random Vancomycin 22.9 H Hep B Core Total Ab
[2024-06-08] MEDS: CEFEPIME 1 GM/NS 50 ML 1 GM/50 ML BAG IVPB (16:46)
[2024-06-08 17:50] LABS: Glucose Point of Care 149 mg/dl (65-105)
[2024-06-08 23:48] LABS: Glucose Point of Care 145 mg/dl (65-105)
[2024-06-09] VITALS (69 sets, daily range): BP systolic 90–126; BP diastolic 38–58; PULSE 60–93; RESP 24–25; TEMP 36.5–37; O2SAT 93–96
[2024-06-09] MEDS: IPRATROPIUM 0.5 MG/ALBUTEROL SULFATE 2.5 MG AMPUL.NEB 3 ML INHALATION ×4 (02:07→20:21)
[2024-06-09 04:39] LABS: Basophils Percent Auto 0.3 % (0.2-1.2); Hematocrit 33.1 % (37.0-47.0); Hemoglobin 10.7 g/dL (12.0-15.0); Immature Granulocyte Absolute 0.22 K/mm3 (0.00-0.031); Immature Granulocyte Percent A 1.4 % (0-0.5); Lymphocytes Absolute Auto 1.35 K/mm3 (0.9-3.2); Lymphocytes Percent Auto 8.8 % (18.3-44.2); Mean Corpuscular HGB Conc 32.3 g/dl (32-36); Mean Corpuscular Hemoglobin 27.4 pg (26-34); Mean Corpuscular Volume 84.7 fl (80-100); Mean Platelet Volume 9.7 fl (7.4-10.4); Monocytes Absolute Auto 1.3 K/mm3 (0.1-0.6); Monocytes Percent Auto 8.4 % (2.6-8.5); Neutrophils Absolute Auto 12.4 K/mm3 (1.3-6.7); Neutrophils Percent Auto 81.1 % (45.5-73.1); Platelet Count Result 392 k/mm3 (150-375); Red Blood Count 3.91 M/mm3 (4.2-5.4); Red Cell Distribution Width 17.6 % (11.5-14.5); White Blood Count 15.3 K/mm3 (4.5-10.0)
[2024-06-09 04:42] LABS: Alveolar/Arterial O2 Gradient 218.1 mmHg; Base Excess ABG 1.5 mEq/l (+/-2.0); Carboxyhemoglobin 0.1 % THb (0-2.0); Fractional Inspired Oxygen 50 %; HCO3 ABG 25.3 mEq/l (22.0-26.0); Methemoglobin ABG 0.1 %THb (0-1.5); Oxygen Content ABG 15.7 %vol (16.0-22.0); Oxygen Saturation ABG 97.7 % (95.0-100.0); Oxyhemoglobin 97.3 % THb (90.0-100.0); PCO2 ABG 37.2 mmHg (35.0-45.0); PO2 ABG 96.6 mmHg (80.0-100.0); PO2 FiO2 Ratio Arterial Blood 1.93 %; Reduced Hemoglobin 2.5 %THb (0-5.0); Total Hemoglobin 11.4 g/dL (12.0-18.0); pH ABG 7.451 (7.350-7.450)
[2024-06-09 04:43] LABS: Site Drawn ARTLINE
[2024-06-09 04:44] LABS: Arterial Blood Gas Ventilator rate 24 /MIN; Device VENTILATOR; Modified Allen's Test Pass
[2024-06-09 04:45] LABS: Arterial Blood Gas PEEP 14 cmH2O; Arterial Blood Gas Tidal Volume 400 ml; Arterial Blood Gas Vent Mode CMV
[2024-06-09 04:53] LABS: Alanine Aminotransferase 49 U/L (6-35); Albumin Level 3.2 g/dL (3.5-5.1); Alkaline Phosphatase 204 U/L (38-126); Anion Gap 7 mmol/L (4-12); Aspartate Amino Transferase 118 U/L (14-36); Bilirubin,Total 1.9 mg/dL (0.2-1.3); Blood Urea Nitrogen 60 mg/dL (7-17); Calcium 10.1 mg/dL (8.4-10.2); Carbon Dioxide 28 mmol/L (22-30); Chloride 97 mmol/L (98-107); Estimated CRCL calculation 26 ml/min; Estimated Glomerular Filt Rate 12; Glucose 176 mg/dL (65-110); Magnesium 2.6 mg/dL (1.6-2.3); Phosphorus 4.5 mg/dL (2.5-4.5); Sodium 132 mmol/L (137-145)
[2024-06-09] MEDS: HYDROCORTISONE SODIUM SUCCINATE 100 MG/2 ML VIAL IV PUSH ×3 (06:40→21:07)
[2024-06-09] MEDS: CENTRAL LINE FLUSH 10 ML IV PUSH (06:41)
[2024-06-09 06:46] LABS: Glucose Point of Care 175 mg/dl (65-105)
[2024-06-09] MEDS: AMIODARONE HCL 200 MG TABLET PO ×2 (09:21→20:55)
[2024-06-09] MEDS: MIDODRINE HCL 10 MG TABLET PO ×3 (09:21→16:30)
[2024-06-09] MEDS: PANTOPRAZOLE SODIUM IV 40 MG VIAL IV PUSH ×2 (09:21→20:55)
[2024-06-09] MEDS: APIXABAN 5 MG TABLET PO ×2 (09:21→20:55)
[2024-06-09] MEDS: MINERAL OIL/WHITE PETROLATUM OINTMENT 1 APPLIC EACH EYE ×2 (09:22→20:55)
--- NOTE | 2024-06-09 11:24 | P.PNINT_ITS ---
Progress Note: A&P Assessment and Plan (1) Acute respiratory failure: Code(s): J96.00 - Acute respiratory failure, unspecified whether with hypoxia or hypercapnia Status: Acute Assessment and Plan: Patient with increasing oxygen requirements in the last 24 hours, brought to the ICU after midnight on 06/05/2024, chest x-ray showed bilateral diffuse pulmonary infiltrates/pulmonary edema. Patient was placed on BiPAP. ABG showed hypercapnic and hypoxemic respiratory failure -etiology likely related to pulmonary edema, pneumonia, ARDS -06/05: patient intubated for impending respiratory failure. Intubation was slightly challenging secondary to body habitus, small mouth, large tongue, redundant tissue in the hypopharynx and anterior vocal cords requiring cricoid pressure and use of glide scope. -patient placed on CMV mode of ventilation, peep of 14, 50% FiO2, start weaning FiO2 -chest x-ray and ABGs reviewed, ventilator adjusted -continue bronchodilators -continue steroids for pneumonia - fentanyl and Versed infusion for analgosedation, will maintain RASS of -2 -daily SBT and SAT -continue dialysis for fluid removal (2) Septic shock: Code(s): A41.9 - Sepsis, unspecified organism; R65.21 - Severe sepsis with septic shock Status: Acute Assessment and Plan: Septic shock could be related to UTI, pneumonia -patient was hypotensive in the intermediate Unit and was transferred to the ICU which she received fluids, albumin -continue norepinephrine, will maintain MAP > 65 mmHg or SBP > 100 mmHg adequate end organ perfusion -off vasopressin since 06/06/2024 evening -patient is on vancomycin and cefepime -fluconazole was discontinued given her renal dysfunction -continue stress dose steroids -lactic acid has normalized (3) JOVI (acute kidney injury): Code(s): N17.9 - Acute kidney failure, unspecified Status: Acute Assessment and Plan: Patient with acute kidney injury, this morning her creatinine is 4.60 (creatinine on admission on 06/02/2024 was 2.10 and her creatinine on 04/26/2024 was 0.90) -etiology for acute kidney injury could be multifactorial, hypotension, shock, sepsis, UTI/pneumonia, hypoxia,? SLE flare, CHF, -CK levels are within normal limits -urine eosinophils were negative -urine electrolytes showed prerenal picture, patient seems to be volume overloaded -was given IV fluids and albumin overnight, will hold fluids for now -discussed with classroom technology coach at [facility], feels that the patient is unstable to be transferred at this time for CRRT, recommended conventional dialysis. -discussed with power electronics engineer at [facility], agrees to conventional dialysis at this time -06/05: dialysis catheter was placed in the right IJ and exchange for the central line -06/05: Initiate dialysis, with 3000 mL of fluid removal -06/06: Dialysis with 3000 mL in fluid removal -06/07: Dialysis with 3700 mL in fluid removal -06/08: Dialysis with 2900 mL in fluid removal Will dialyze again today per Nephrology (4) Pulmonary edema: Code(s): J81.1 - Chronic pulmonary edema Status: Acute Assessment and Plan: Pulmonary edema likely related to acute kidney injury, ARDS, -did not respond to Bumex -continue fluid removal with dialysis (5) Type 2 diabetes mellitus: Code(s): E11.9 - Type 2 diabetes mellitus without complications Status: Acute Assessment and Plan: SSI and accucheks HbA1C is 5.7 this admission (6) Afib: Code(s): I48.91 - Unspecified atrial fibrillation Status: Acute Assessment and Plan: continue amiodarone - flecainide was stopped (7) SLE (systemic lupus erythematosus): Code(s): M32.9 - Systemic lupus erythematosus, unspecified Status: Acute Assessment and Plan: ? SLE flare Continue stress dose steroids (8) Liver cirrhosis secondary to HOFFMANN: Code(s): K75.81 - Nonalcoholic steatohepatitis (HOFFMANN); K74.60 - Unspecified cirrhosis of liver Status: Acute Assessment and Plan: Mild elevation in LFTs, which are improving -continue to monitor (9) GERD (gastroesophageal reflux disease): Code(s): K21.9 - Gastro-esophageal reflux disease without esophagitis Status: Acute Assessment and Plan: Continue Protonix (10) Morbid obesity with BMI of 50.0-59.9, adult: Code(s): E66.01 - Morbid (severe) obesity due to excess calories; Z68.43 - Body mass index [BMI] 50.0-59.9, adult Status: Acute Assessment and Plan: Once extubated she will need lifestyle changes Plan DVT prophylaxis: Eliquis Stress ulcer prophylaxis: Protonix Nutrition: Tube feeds at goal and tolerating Code Status: Full code Critical Care Time Spent: 33 minutes 06/05: Discussed with JAMES Blunt, patient's sister in the conference room updated with patient's condition and plan of care. The JAMES is aware that patient is significantly ill and at condition is guarded. I also explained to her that we initiated transfer to [facility] but given her increased ventilatory support, the classroom technology coach at [facility] recommended starting conventional dialysis over [facility]. I answered all her questions. Discussed with patient's sister JAMES Blunt, on the phone and updated with patient's condition and plan of care. I answered all questions Due to a high probability of clinically significant, life threatening deterioration, the patient required my highest level of preparedness to intervene emergently and I personally spent this critical care time directly and personally managing the patient. This critical care time included obtaining a history; examining the patient; pulse oximetry; ordering and review of studies; arranging urgent treatment with development of a management plan; evaluation of patient's response to treatment; frequent reassessment; and discussions with other providers. It was exclusive of separately billable procedures and treating other patients and teaching time. Please see Assessment and Plan section and the rest of the note for further information on patient assessment and treatment This dictation may have been done utilizing a voice recognition system. Attempts have been made to correct errors. However, there may be uncorrected grammatical, spelling, and recognitions errors present. Subjective Date/time seen: 06/09/24 11:24 Interval history: Reason for consult: Acute respiratory failure, septic shock, acute kidney injury, pulmonary edema 06/05: Intubated 06/08/2024: Patient seen and examined the ICU, remains intubated on CMV mode of ventilation, peep of 14, 50% FiO2. Sedated with fentanyl and Versed infusions, patient opens her eyes, follows simple commands in all extremities and nods to questions. Patient had 2900 mL in fluid removal with dialysis yesterday. Has been afebrile overnight, Urine output remained low. Remains on Levophed at 2 mcg/min, has to be increased during dialysis Review of Systems Review of Systems: ROS unobtainable: Yes unobtainable due to endotracheal tube, unobtainable due to medical condition and unobtainable due to mental status Exam Narrative: General: Morbidly obese female currently intubated and sedated in no acute distress HEENT:? Pupils equal and reactive bilaterally, sclera is clear, ETT in place Neck:, short and thick neck, Respiratory:? Decreased and coarse breath sounds bilaterally, no wheezing, Cardiac:? S1-S2 is normal, regular rate and rhythm Abdomen:? Morbid obesity, soft, hypoactive bowel sounds Extremities:? Bilateral lower extremity pitting edema up to the thighs, decreased pedal pulses. Right calf is erythematous, warm Neuro:? Patient is intubated, sedated, opens her eyes, follows simple commands in all extremities and nods to questions Skin:? Erythema in the intertriginous region and under her pannus Psych:? Unable to assess at this time Objective Data Vital Signs Vital Signs: Vital Signs - 24 hr 06/08/24 11:30 06/08/24 11:45 06/08/24 12:00 Temperature Pulse Rate 61 65 62 Respiratory Rate Blood Pressure 101/43 L 100/41 L 101/43 L Pulse Oximetry Oxygen Delivery Fraction of Inspired Oxygen 06/08/24 12:15 06/08/24 12:30 06/08/24 12:45 Temperature Pulse Rate 60 60 60 Respiratory Rate Blood Pressure 128/58 L 122/57 L 118/53 L Pulse Oximetry Oxygen Delivery Fraction of Inspired Oxygen 06/08/24 11:40 06/08/24 11:45 06/08/24 12:00 Temperature Pulse Rate 60 60 62 Respiratory Rate Blood Pressure 100/42 L 102/41 L 106/43 L Pulse Oximetry Oxygen Delivery Fraction of Inspired Oxygen 06/08/24 12:08 06/08/24 12:13 06/08/24 12:00 Temperature Pulse Rate 60 60 62 Respiratory Rate 24 H Blood Pressure 135/56 L 120/55 L Pulse Oximetry Oxygen Delivery Fraction of Inspired Oxygen 06/08/24 12:00 06/08/24 13:18 06/08/24 13:20 Temperature Pulse Rate 62 60 60 Respiratory Rate 24 H Blood Pressure 130/57 L Pulse Oximetry Oxygen Delivery Fraction of Inspired Oxygen 06/08/24 12:51 06/08/24 13:02 06/08/24 14:00 Temperature 98.2 F Pulse Rate 61 60 60 Respiratory Rate 20 Blood Pressure 131/64 122/54 L 125/55 L Pulse Oximetry 96 Oxygen Delivery Fraction of Inspired Oxygen 06/08/24 14:00 06/08/24 14:00 06/08/24 12:00 Temperature Pulse Rate 60 60 60 Respiratory Rate 24 H 24 H Blood Pressure Pulse Oximetry Oxygen Delivery Fraction of Inspired Oxygen 06/08/24 14:00 06/08/24 12:00 06/08/24 14:00 Temperature 98.2 F Pulse Rate 60 60 60 Respiratory Rate 24 H 24 H Blood Pressure 106/43 L 119/54 L Pulse Oximetry 96 97 Oxygen Delivery Fraction of Inspired Oxygen 06/08/24 14:12 06/08/24 14:15 06/08/24 14:22 Temperature Pulse Rate 60 60 60 Respiratory Rate 24 H 24 H Blood Pressure Pulse Oximetry 97 Oxygen Delivery Mechanical Ventilation Fraction of Inspired Oxygen 50 06/08/24 12:00 06/08/24 12:00 06/08/24 16:00 Temperature Pulse Rate 60 Respiratory Rate Blood Pressure 103/40 L Pulse Oximetry 96 Oxygen Delivery Mechanical Ventilation Fraction of Inspired Oxygen 50 50 06/08/24 16:00 06/08/24 16:00 06/08/24 16:00 Temperature Pulse Rate 60 60 60 Respiratory Rate 24 H 24 H Blood Pressure Pulse Oximetry Oxygen Delivery Fraction of Inspired Oxygen 06/08/24 16:00 06/08/24 16:00 06/08/24 16:00 Temperature 98.2 F Pulse Rate 60 Respiratory Rate 24 H Blood Pressure 103/40 L Pulse Oximetry 94 94 Oxygen Delivery Mechanical Ventilation Fraction of Inspired Oxygen 50 50 06/08/24 17:15 06/08/24 17:45 06/08/24 17:55 Temperature Pulse Rate 62 60 60 Respiratory Rate Blood Pressure 99/37 L 128/55 L Pulse Oximetry 93 Oxygen Delivery Mechanical Ventilation Fraction of Inspired Oxygen 50 06/08/24 18:00 06/08/24 18:00 06/08/24 18:00 Temperature Pulse Rate 60 60 60 Respiratory Rate 24 H 24 H Blood Pressure 125/54 L Pulse Oximetry Oxygen Delivery Fraction of Inspired Oxygen 06/08/24 18:00 06/08/24 18:00 06/08/24 20:00 Temperature Pulse Rate 61 61 60 Respiratory Rate 24 H Blood Pressure 125/54 L 97/63 L Pulse Oximetry 96 Oxygen Delivery Fraction of Inspired Oxygen 06/08/24 20:27 06/08/24 20:00 06/08/24 20:00 Temperature Pulse Rate 60 60 60 Respiratory Rate 24 H 24 H Blood Pressure Pulse Oximetry Oxygen Delivery Fraction of Inspired Oxygen 06/08/24 20:00 06/08/24 20:00 06/08/24 21:06 Temperature 98.4 F Pulse Rate 60 60 Respiratory Rate 24 H Blood Pressure 119/48 L Pulse Oximetry 96 93 Oxygen Delivery Mechanical Ventilation Fraction of Inspired Oxygen 50 50 06/08/24 20:00 06/08/24 22:00 06/08/24 22:00 Temperature Pulse Rate 60 60 60 Respiratory Rate Blood Pressure 112/45 L Pulse Oximetry Oxygen Delivery Fraction of Inspired Oxygen 06/08/24 22:00 06/08/24 22:00 06/08/24 22:00 Temperature Pulse Rate 60 60 60 Respiratory Rate 24 H 24 H 24 H Blood Pressure 112/45 L Pulse Oximetry 96 Oxygen Delivery Fraction of Inspired Oxygen 06/08/24 21:00 06/09/24 00:00 06/09/24 00:00 Temperature Pulse Rate 60 60 60 Respiratory Rate 24 H 24 H Blood Pressure 119/49 L 109/44 L Pulse Oximetry 96 Oxygen Delivery Fraction of Inspired Oxygen 06/09/24 00:00 06/08/24 20:00 06/09/24 00:00 Temperature Pulse Rate 60 60 60 Respiratory Rate 24 H 24 H 24 H Blood Pressure Pulse Oximetry 96 96 Oxygen Delivery Mechanical Ventilation Mechanical Ventilation Fraction of Inspired Oxygen 50 50 06/09/24 00:00 06/09/24 00:00 06/09/24 01:15 Temperature Pulse Rate 60 60 Respiratory Rate 24 H Blood Pressure 109/44 L 109/40 L Pulse Oximetry 96 Oxygen Delivery Fraction of Inspired Oxygen 50 06/09/24 01:00 06/08/24 23:00 06/08/24 21:02 Temperature Pulse Rate 60 60 Respiratory Rate 24 H Blood Pressure 108/40 L Pulse Oximetry 96 Oxygen Delivery Mechanical Ventilation Fraction of Inspired Oxygen 50 06/09/24 01:20 06/08/24 21:12 06/09/24 01:30 Temperature Pulse Rate 60 62 60 Respiratory Rate 24 H Blood Pressure 120/49 L 118/47 L Pulse Oximetry Oxygen Delivery Fraction of Inspired Oxygen 06/09/24 01:50 06/09/24 00:00 06/09/24 02:00 Temperature Pulse Rate 60 60 60 Respiratory Rate 24 H Blood Pressure 104/39 L Pulse Oximetry Oxygen Delivery Fraction of Inspired Oxygen 06/09/24 02:00 06/09/24 02:00 06/09/24 02:05 Temperature Pulse Rate 60 60 60 Respiratory Rate 24 H Blood Pressure 117/49 L Pulse Oximetry 96 Oxygen Delivery Mechanical Ventilation Fraction of Inspired Oxygen 50 06/09/24 02:07 06/08/24 23:00 06/09/24 02:00 Temperature Pulse Rate 60 60 60 Respiratory Rate 24 H 24 H 24 H Blood Pressure 106/44 L 117/49 L Pulse Oximetry 96 96 Oxygen Delivery Fraction of Inspired Oxygen 06/09/24 03:00 06/09/24 04:00 06/09/24 04:36 Temperature Pulse Rate 60 60 62 Respiratory Rate 24 H 24 H Blood Pressure 118/46 L 119/49 L Pulse Oximetry 96 96 96 Oxygen Delivery Mechanical Ventilation Fraction of Inspired Oxygen 50 06/09/24 04:00 06/09/24 04:00 06/09/24 04:00 Temperature Pulse Rate 60 60 60 Respiratory Rate 24 H 24 H Blood Pressure 117/48 L Pulse Oximetry Oxygen Delivery Fraction of Inspired Oxygen 06/09/24 04:53 06/09/24 02:17 06/09/24 04:00 Temperature Pulse Rate 60 61 60 Respiratory Rate 24 H 24 H Blood Pressure 118/46 L Pulse Oximetry 96 Oxygen Delivery Mechanical Ventilation Fraction of Inspired Oxygen 50 06/09/24 04:00 06/09/24 04:00 06/09/24 06:00 Temperature Pulse Rate 60 60 Respiratory Rate Blood Pressure Pulse Oximetry Oxygen Delivery Fraction of Inspired Oxygen 50 06/09/24 06:00 06/09/24 05:00 06/09/24 06:00 Temperature 97.9 F Pulse Rate 60 60 62 Respiratory Rate 24 H 24 H Blood Pressure 111/53 L 116/47 L 110/53 L Pulse Oximetry 95 96 Oxygen Delivery Fraction of Inspired Oxygen 06/09/24 06:00 06/09/24 06:00 06/09/24 07:36 Temperature Pulse Rate 60 60 61 Respiratory Rate 24 H 24 H 24 H Blood Pressure Pulse Oximetry Oxygen Delivery Fraction of Inspired Oxygen 06/09/24 07:36 06/09/24 07:44 06/09/24 07:45 Temperature Pulse Rate 61 93 Respiratory Rate 24 H Blood Pressure Pulse Oximetry 94 94 Oxygen Delivery Mechanical Ventilation Mechanical Ventilation Fraction of Inspired Oxygen 50 50 06/09/24 07:00 06/09/24 08:26 06/09/24 08:00 Temperature Pulse Rate 62 62 60 Respiratory Rate Blood Pressure 119/49 L 110/44 L Pulse Oximetry Oxygen Delivery Fraction of Inspired Oxygen 06/09/24 08:00 06/09/24 08:00 06/09/24 08:00 Temperature 98.0 F Pulse Rate 60 61 Respiratory Rate 24 H 24 H Blood Pressure 110/43 L Pulse Oximetry 95 94 Oxygen Delivery Mechanical Ventilation Fraction of Inspired Oxygen 50 50 06/09/24 08:57 06/09/24 09:06 06/09/24 09:30 Temperature 98.3 F Pulse Rate 60 60 61 Respiratory Rate 24 H Blood Pressure 104/40 L 103/40 L 110/45 L Pulse Oximetry 96 Oxygen Delivery Fraction of Inspired Oxygen 06/09/24 09:45 06/09/24 10:00 06/09/24 10:15 Temperature Pulse Rate 60 60 61 Respiratory Rate Blood Pressure 103/42 L 113/47 L 124/53 L Pulse Oximetry Oxygen Delivery Fraction of Inspired Oxygen 06/09/24 10:30 06/09/24 10:45 06/09/24 11:00 Temperature Pulse Rate 60 60 60 Respiratory Rate Blood Pressure 125/54 L 117/50 L 109/44 L Pulse Oximetry Oxygen Delivery Fraction of Inspired Oxygen 06/09/24 11:15 06/09/24 09:09 06/09/24 09:21 Temperature Pulse Rate 60 60 60 Respiratory Rate Blood Pressure 114/58 L 102/39 L Pulse Oximetry Oxygen Delivery Fraction of Inspired Oxygen 06/09/24 09:15 06/09/24 09:55 06/09/24 10:00 Temperature Pulse Rate 60 60 60 Respiratory Rate Blood Pressure 120/50 L 100/38 L Pulse Oximetry Oxygen Delivery Fraction of Inspired Oxygen 06/09/24 10:00 06/09/24 08:05 06/09/24 10:51 Temperature Pulse Rate 60 60 60 Respiratory Rate 24 H Blood Pressure 109/42 L Pulse Oximetry 94 93 Oxygen Delivery Mechanical Ventilation Fraction of Inspired Oxygen 50 Intake/Output Intake/Output: Intake & Output 06/06/24 06/07/24 06/08/24 06/09/24 23:59 23:59 23:59 23:59 Intake Total 1263.6 937.2 1167.3 827.1 Output Total 3230 4170 3254 150 Balance -1966.4 -3232.8 -2086.7 677.1 Meds/Results Medications: Active Medications Generic Name Dose Route Start Last Admin Trade Name Freq PRN Reason Stop Dose Admin Acetaminophen 650 mg 06/07/24 21:53 06/07/24 22:30 Acetaminophen Elixir 325 Mg/10.15 Ml Udc PO 650 mg Q6H PRN Administration Mild Pain (1-3) or Fever Albuterol/Ipratropium 3 ml 06/05/24 11:15 06/09/24 07:35 Ipratropium 0.5 Mg/Albuterol Sulfate 2.5 Mg Ampul.Neb 3 Ml INHALATION 3 ml Q6HRT JOHN Administration Amiodarone HCl 200 mg 06/02/24 21:00 06/09/24 09:21 Amiodarone Hcl 200 Mg Tablet PO 200 mg Q12HR JOHN Administration Apixaban 5 mg 06/06/24 09:30 06/09/24 09:21 Apixaban 5 Mg Tablet PO 5 mg Q12HR JOHN Administration Dextrose 12.5 gm 06/05/24 11:46 Dextrose 50% 25 Gm/50 Ml Syringe IV PUSH PRN PRN Hypoglycemia Protocol Flecainide Acetate 100 mg 06/02/24 21:00 06/08/24 10:26 Flecainide Acetate 100 Mg Tablet PO Not Given Q12HR JOHN Gabapentin 200 mg 06/02/24 22:00 06/04/24 21:07 Gabapentin 100 Mg Capsule PO 200 mg Q8HR JOHN Administration Glucagon 1 mg 06/05/24 11:46 Glucagon For Inj 1 Mg Vial IM PRN PRN Hypoglycemia Protocol Glucose 15 gm 06/05/24 11:46 Glucose Oral Gel 15 Gm Of Glucse In 37.5 Gm Tube PO PRN PRN Hypoglycemia Protocol Hydrocortisone Sodium Succinate 100 mg 06/05/24 14:00 06/09/24 06:40 Hydrocortisone Sodium Succinate 100 Mg/2 Ml Vial IV PUSH 100 mg Q8HR JOHN Administration Norepinephrine Bitartrate 8 mg in 250 mls @ 11.25 mls/hr 06/05/24 00:35 06/09/24 09:55 Levophed 8 Mg/D5w 250 Ml IV CONT 6 mcg/min .[id number] JOHN 11.25 mls/hr Titration Protocol 6 MCG/MIN Fentanyl Citrate 2,500 mcg in 250 mls @ 2.5 mls/hr 06/05/24 08:35 06/09/24 06:00 Fentanyl 2,500 Mcg/Ns 250 Ml IV CONT 25 mcg/hr .Q72H JOHN 2.5 mls/hr Titration Protocol 25 MCG/HR Midazolam HCl 100 mg in 100 mls @ 1 mls/hr 06/05/24 08:35 06/09/24 06:00 Versed 100 Mg/Ns 100 Ml IV CONT 1 mg/hr .Q72H JOHN 1 mls/hr Titration Protocol 1 MG/HR Dextrose 1,000 mls @ 100 mls/hr 06/05/24 11:46 Dextrose 5% 1,000 Ml IVPB PRN PRN Hypoglycemia Protocol Cefepime HCl 1 gm in 50 mls @ 100 mls/hr 06/06/24 16:00 06/08/24 17:16 Maxipime 1 Gm/Ns 50 Ml IVPB Infused Q24H JOHN Infusion Albumin Human 50 mls @ 999 mls/hr 06/08/24 09:50 Albutein IVPB 06/12/24 08:39 Q10M PRN HYPOTENSION Insulin Aspart 3 - 6 units 06/05/24 12:00 06/09/24 06:43 Insulin Aspart (*Bkc) 100 Units/Ml SUB-Q Not Given Q6HR JOHN Protocol Midodrine 10 mg 06/05/24 09:00 06/09/24 09:21 Midodrine Hcl 10 Mg Tablet PO 10 mg TID JOHN Administration Multi-Ingred Cream/Lotion/Oil/Oint 1 applic 06/05/24 09:00 06/09/24 09:22 Mineral Oil/White Petrolatum Ointment EACH EYE 1 applic Q12HR JOHN Administration Pantoprazole Sodium 40 mg 06/06/24 09:00 06/09/24 09:21 Pantoprazole Sodium Iv 40 Mg Vial IV PUSH 40 mg Q12HR JOHN Administration Fluticasone/Salmeterol 2 puff 06/03/24 08:00 06/09/24 01:22 Fluticasone/Salmeterol 115-21 Mcg Inhaler 1 Puff INHALATION Not Given Q12HRT JOHN Sodium Chloride 10 ml 06/05/24 06:00 06/09/24 06:41 Central Line Flush IV PUSH 10 ml Q8HR JOHN Administration Sodium Chloride 20 ml 06/05/24 03:12 Central Line Flush IV PUSH PRN PRN after blood draws Umeclidinium [place] 1 puff 06/03/24 08:00 06/08/24 14:09 Umeclidinium [place] 62.5 Mcg Ellipta INHALATION Not Given DAILYRT [facility] Radiology Results: ITS Impressions Renal Ultrasound 06/04/24 15:06 IMPRESSION: 1. Normal kidneys. No hydronephrosis. Chest/Abdomen/Pelvis CT 06/04/24 19:12 IMPRESSION: 1. Diffuse lung disease, consistent with pulmonary edema versus pneumonia. 2. Moderate volume of ascites. Abdomen X-Ray 06/05/24 09:37 IMPRESSION: 1. Lines and tubes all in expected positions. 2. Diffuse patchy bilateral lung disease which could represent pulmonary edema and/or pneumonia. 3. Cardiomegaly. Venous Doppler Study 06/07/24 17:01 IMPRESSION: 1. No deep venous thrombosis. Chest X-Ray 06/09/24 06:16 Impression: 1: Cardiomegaly with mild interstitial edema. No significant interval change allowing for technique. Labs Labs: Laboratory Results - last 24 hr 06/05/24 06/08/24 06/08/24 04:20 12:18 17:47 WBC RBC Hgb Hct MCV MCH MCHC RDW Plt Count MPV Immature Gran % (Auto) Neut % (Auto) Lymph % (Auto) Har[place] % (Auto) Eos % (Auto) Baso % (Auto) Lymph # (Auto) [place] # (Auto) Eos # (Auto) Baso # (Auto) Abs Immat Gran (auto) Absolute Neuts (auto) Absolute Nucleated RBC Nucleated RBC % Puncture Site ABG pH ABG pCO2 ABG pO2 ABG PO2/FiO2 Ratio ABG HCO3 ABG O2 Saturation ABG O2 Content ABG Base Excess A-a Gradient Oxyhemoglobin Carboxyhemoglobin Methemoglobin Reduced Hemoglobin Total Hemoglobin O2 Delivery Device O2 Liters/Min Minute Volume Vent Rate Vent Mode FiO2 Tidal Volume PEEP Peak Inspir Pressure Pressure Support Sodium Potassium Chloride Carbon Dioxide Anion Gap BUN Creatinine Estim Creat Clear Calc Estimated GFR Glucose POC Capillary Glucose 155 H 149 H Calcium Phosphorus Magnesium Total Bilirubin AST ALT Alkaline Phosphatase Total Protein Albumin Hep B Core Total Ab Non-reactive 06/08/24 06/09/24 06/09/24 23:44 04:25 06:43 WBC 15.3 H RBC 3.91 L Hgb 10.7 L Hct 33.1 L MCV 84.7 MCH 27.4 MCHC 32.3 RDW 17.6 H Plt Count 392 H MPV 9.7 Immature Gran % (Auto) 1.4 H Neut % (Auto) 81.1 H Lymph % (Auto) 8.8 L Harney % (Auto) 8.4 Eos % (Auto) 0.0 Baso % (Auto) 0.3 Lymph # (Auto) 1.35 Har[place] # (Auto) 1.3 H Eos # (Auto) 0.0 Baso # (Auto) 0.0 Abs Immat Gran (auto) 0.22 H Absolute Neuts (auto) 12.4 H Absolute Nucleated RBC 0.000 Nucleated RBC % 0.0 Puncture Site Artline ABG pH 7.451 H ABG pCO2 37.2 ABG pO2 96.6 ABG PO2/FiO2 Ratio 1.93 ABG HCO3 25.3 ABG O2 Saturation 97.7 ABG O2 Content 15.7 L ABG Base Excess 1.5 A-a Gradient 218.1 Oxyhemoglobin 97.3 Carboxyhemoglobin 0.1 Methemoglobin 0.1 Reduced Hemoglobin 2.5 Total Hemoglobin 11.4 L O2 Delivery Device Ventilator O2 Liters/Min Not Reportable Minute Volume Not Reportable Vent Rate 24 Vent Mode Cmv FiO2 50 Tidal Volume 400 PEEP 14 Peak Inspir Pressure Not Reportable Pressure Support Not Reportable Sodium 132 L Potassium 4.0 Chloride 97 L Carbon Dioxide 28 Anion Gap 7 BUN 60 H Creatinine 3.80 H Estim Creat Clear Calc 26 Estimated GFR 12 L Glucose 176 H POC Capillary Glucose 145 H 175 H Calcium 10.1 Phosphorus 4.5 Magnesium 2.6 H Total Bilirubin 1.9 H AST 118 H ALT 49 H Alkaline Phosphatase 204 H Total Protein 7.0 Albumin 3.2 L Hep B Core Total Ab Quality VTE Prophylaxis VTE prophylaxis: pharmacologic ordered
[2024-06-09] MEDS: HEPARIN SODIUM 1,000 UNITS/ML VIAL 2000 UNITS (12:15)
--- NOTE | 2024-06-09 12:16 | P.PNNP_ITS ---
Progress Note: A&P Assessment and Plan (1) JOVI (acute kidney injury): Code(s): N17.9 - Acute kidney failure, unspecified Status: Acute Assessment and Plan: * normal creatinine ~ 1 month ago * admitted with a creatinine of 2.1mg/dl with ongoing worsening noted * etiology not clear but several possibilities: * hemodynamic instability/shock * early sepsis * infection (UTI +/- pneumonia) -- although culture negative to date * hypoxia * SLE flare (?) * other? * evaluation to date noted: * renal ultrasound negative for obstruction * urine eosinophils negative * urine electrolytes pre-renal (in spite of evidence of volume overload) * CPK low * moderate proteinuria (~ 600mg) * UA with blood and protein (and negative urine culture) * complements normal (arguing against lupus flare) * initiated on dialysis yesterday due to worsening respiratory status and volume overload * HD on 06/05, 06/06 and 06/08 * DUF on 06/07 and today * follow repeat labs and UOP for potential renal recovery (2) Acute respiratory failure: Code(s): J96.00 - Acute respiratory failure, unspecified whether with hypoxia or hypercapnia Status: Acute Assessment and Plan: * intubated on 06/05: * failed BiPAP therapy * impending respiratory failure (given hypoxia + hypercapnea) * suspect secondary to pulmonary edema, pneumonia, and possible early ARDS * remains on ventilator support * on bronchodilators and steroids * fluid removal with dialysis * follow respiratory status (3) Septic shock: Code(s): A41.9 - Sepsis, unspecified organism; R65.21 - Severe sepsis with septic shock Status: Acute Assessment and Plan: * possible related to pneumonia versus UTI * initiated on vasopressor therapy * follow culture data * 06/06 blood culture with E.coli and Stap epi * urine culture negative * on antibiotics * stress dose steroids * follow trend of hemodynamics (4) Pulmonary edema: Code(s): J81.1 - Chronic pulmonary edema Status: Acute Assessment and Plan: * contributing to #2 * secondary to JOVI/ARF but ARDS possibly playing a role * Pulmonary edema likely related to acute kidney injury, ARDS * fluid removal with dialysis as tolerated (5) SLE (systemic lupus erythematosus): Code(s): M32.9 - Systemic lupus erythematosus, unspecified Status: Acute Assessment and Plan: * ? 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 Subjective Date/time seen: 06/09/24 12:16 Interval history: Follow-up for acute kidney injury/acute renal failure. Just finished session of dry ultrafiltration this morning with ~ 3L fluid removal; tolerated dialysis treatment yesterday as well; on low dose levophed gtt with increased requirements needed during hemodialysis and dry ultrafiltration treatments; no fevers in the last 24 hours; remains intubated/sedated with ongoing ventilator support. Exam Narrative: General: large female intubated/sedated on mechanical ventilator Heart: normal S1 and S2; no rub Lungs: coarse breath sounds; decreased at bases Abdomen: obese but soft, nontender, nondistended, positive bowel sounds Extremities: no cyanosis or clubbing; 2 - 3+ edema Skin: no nodules Objective Data Vital Signs Vital Signs: Vital Signs Temp Pulse Resp BP Pulse Ox O2 Del Method FiO2 06/09/24 12:15 97.7 F 67 24 H 121/52 L 95 Mechanical Ventilation 50 06/09/24 12:00 60 113/47 L 06/09/24 11:45 60 110/46 L 06/09/24 11:30 60 113/47 L 06/09/24 11:15 60 114/58 L 06/09/24 11:00 60 109/44 L 06/09/24 10:45 60 117/50 L 06/09/24 10:30 60 125/54 L 06/09/24 10:15 61 124/53 L 06/09/24 10:00 60 113/47 L 06/09/24 09:45 60 103/42 L 06/09/24 09:30 61 110/45 L 06/09/24 09:06 60 103/40 L 06/09/24 08:57 98.3 F 60 24 H 104/40 L 96 06/09/24 08:00 98.0 F 61 24 H 110/43 L 94 06/09/24 08:00 60 24 H 95 Mechanical Ventilation 50 06/09/24 08:00 60 06/09/24 08:26 62 110/44 L 06/09/24 07:00 62 119/49 L 06/09/24 07:45 94 Mechanical Ventilation 50 06/09/24 07:44 93 24 H 06/09/24 07:36 61 94 Mechanical Ventilation 50 06/09/24 07:36 61 24 H 06/09/24 06:00 60 24 H 06/09/24 06:00 60 24 H 06/09/24 06:00 62 110/53 L 06/09/24 05:00 60 24 H 116/47 L 96 06/09/24 06:00 97.9 F 60 24 H 111/53 L 95 06/09/24 06:00 60 06/09/24 04:00 60 06/09/24 04:00 50 06/09/24 04:00 60 24 H 96 Mechanical Ventilation 50 06/09/24 02:17 61 24 H 06/09/24 04:53 60 118/46 L 06/09/24 04:00 60 24 H 06/09/24 04:00 60 24 H 06/09/24 04:00 60 117/48 L 06/09/24 04:36 62 96 Mechanical Ventilation 50 06/09/24 04:00 60 24 H 119/49 L 96 06/09/24 03:00 60 24 H 118/46 L 96 06/09/24 02:00 60 24 H 117/49 L 96 06/08/24 23:00 60 24 H 106/44 L 96 06/09/24 02:07 60 24 H 06/09/24 02:05 60 96 Mechanical Ventilation 50 06/09/24 02:00 60 117/49 L 06/09/24 02:00 60 24 H 06/09/24 02:00 60 24 H 06/09/24 00:00 60 06/09/24 01:50 60 104/39 L 06/09/24 01:30 60 118/47 L 06/08/24 21:12 62 24 H 06/09/24 01:20 60 120/49 L 06/08/24 21:02 60 24 H 06/08/24 23:00 60 96 Mechanical Ventilation 50 06/09/24 01:00 108/40 L 06/09/24 01:15 60 109/40 L 06/09/24 00:00 60 24 H 109/44 L 96 06/09/24 00:00 50 06/09/24 00:00 60 24 H 96 Mechanical Ventilation 50 06/08/24 20:00 60 24 H 96 Mechanical Ventilation 50 06/09/24 00:00 60 24 H 06/09/24 00:00 60 24 H 06/09/24 00:00 60 109/44 L 06/08/24 21:00 60 24 H 119/49 L 96 06/08/24 22:00 60 24 H 112/45 L 96 06/08/24 22:00 60 24 H 06/08/24 22:00 60 24 H 06/08/24 22:00 60 112/45 L 06/08/24 22:00 60 06/08/24 20:00 60 06/08/24 21:06 60 93 Mechanical Ventilation 50 06/08/24 20:00 50 06/08/24 20:00 98.4 F 60 24 H 119/48 L 96 06/08/24 20:00 60 24 H 06/08/24 20:00 60 24 H 06/08/24 20:27 60 06/08/24 20:00 60 97/63 L 06/08/24 18:00 61 24 H 125/54 L 96 06/08/24 18:00 61 06/08/24 18:00 60 24 H 06/08/24 18:00 60 24 H 06/08/24 18:00 60 125/54 L 06/08/24 17:55 60 128/55 L 06/08/24 17:45 60 99/37 L 06/08/24 17:15 62 93 Mechanical Ventilation 50 06/08/24 16:00 50 06/08/24 16:00 94 Mechanical Ventilation 50 06/08/24 16:00 98.2 F 60 24 H 103/40 L 94 06/08/24 16:00 60 06/08/24 16:00 60 24 H 06/08/24 16:00 60 24 H 06/08/24 16:00 60 103/40 L Intake/Output Intake/Output: Intake & Output 06/06/24 06/07/24 06/08/24/19/24 23:59 23:59 23:59 23:59 Intake Total 1263.6 937.2 1167.3 908.0 Output Total 3230 4170 3251 3150 Balance -1966.4 -3232.8 -2086.7 -2242.0 Meds/Results Medications: Active Medications Generic Name Dose Route Start Last Admin Trade Name Freq PRN Reason Stop Dose Admin Acetaminophen 650 mg 06/07/24 21:53 06/07/24 22:30 Acetaminophen Elixir 325 Mg/10.15 Ml Udc PO 650 mg Q6H PRN Administration Mild Pain (1-3) or Fever Albuterol/Ipratropium 3 ml 06/05/24 11:15 06/09/24 13:26 Ipratropium 0.5 Mg/Albuterol Sulfate 2.5 Mg Ampul.Neb 3 Ml INHALATION 3 ml Q6HRT JOHN Administration Amiodarone HCl 200 mg 06/02/24 21:00 06/09/24 09:21 Amiodarone Hcl 200 Mg Tablet PO 200 mg Q12HR JOHN Administration Apixaban 5 mg 06/06/24 09:30 06/09/24 09:21 Apixaban 5 Mg Tablet PO 5 mg Q12HR JOHN Administration Dextrose 12.5 gm 06/05/24 11:46 Dextrose 50% 25 Gm/50 Ml Syringe IV PUSH PRN PRN Hypoglycemia Protocol Flecainide Acetate 100 mg 06/02/24 21:00 06/08/24 10:26 Flecainide Acetate 100 Mg Tablet PO Not Given Q12HR JOHN Gabapentin 200 mg 06/02/24 22:00 06/04/24 21:07 Gabapentin 100 Mg Capsule PO 200 mg Q8HR JOHN Administration Glucagon 1 mg 06/05/24 11:46 Glucagon For Inj 1 Mg Vial IM PRN PRN Hypoglycemia Protocol Glucose 15 gm 06/05/24 11:46 Glucose Oral Gel 15 Gm Of Glucse In 37.5 Gm Tube PO PRN PRN Hypoglycemia Protocol Hydrocortisone Sodium Succinate 100 mg 06/05/24 14:00 06/09/24 15:05 Hydrocortisone Sodium Succinate 100 Mg/2 Ml Vial IV PUSH 100 mg Q8HR JOHN Administration Norepinephrine Bitartrate 8 mg in 250 mls @ 9.375 mls/hr 06/05/24 00:35 06/09/24 15:01 Levophed 8 Mg/D5w 250 Ml IV CONT 5 mcg/min .Q24H JOHN 9.38 mls/hr Titration Protocol 5 MCG/MIN Fentanyl Citrate 2,500 mcg in 250 mls @ 2.5 mls/hr 06/05/24 08:35 06/09/24 13:00 Fentanyl 2,500 Mcg/Ns 250 Ml IV CONT 25 mcg/hr .Q72H JOHN 2.5 mls/hr Titration Protocol 25 MCG/HR Midazolam HCl 100 mg in 100 mls @ 1 mls/hr 06/05/24 08:35 06/09/24 13:26 Versed 100 Mg/Ns 100 Ml IV CONT 1 mg/hr .Q72H JOHN 1 mls/hr Titration Protocol 1 MG/HR Dextrose 1,000 mls @ 100 mls/hr 06/05/24 11:46 Dextrose 5% 1,000 Ml IVPB PRN PRN Hypoglycemia Protocol Cefepime HCl 1 gm in 50 mls @ 100 mls/hr 06/06/24 16:00 06/08/24 17:16 Maxipime 1 Gm/Ns 50 Ml IVPB Infused Q24H JOHN Infusion Albumin Human 50 mls @ 999 mls/hr 06/08/24 09:50 Albutein IVPB 06/12/24 08:39 Q10M PRN HYPOTENSION Insulin Aspart 3 - 6 units 06/05/24 12:00 06/09/24 12:24 Insulin Aspart (*Bkc) 100 Units/Ml SUB-Q Not Given Q6HR [facility] Protocol Midodrine 10 mg 06/05/24 09:00 06/09/24 13:05 Midodrine Hcl 10 Mg Tablet PO 10 mg TID JOHN Administration Multi-Ingred Cream/Lotion/Oil/Oint 1 applic 06/05/24 09:00 06/09/24 09:22 Mineral Oil/White Petrolatum Ointment EACH EYE 1 applic Q12HR JOHN Administration Pantoprazole Sodium 40 mg 06/06/24 09:00 06/09/24 09:21 Pantoprazole Sodium Iv 40 Mg Vial IV PUSH 40 mg Q12HR JOHN Administration Fluticasone/Salmeterol 2 puff 06/03/24 08:00 06/09/24 13:25 Fluticasone/Salmeterol 115-21 Mcg Inhaler 1 Puff INHALATION Not Given Q12HRT JOHN Sodium Chloride 10 ml 06/05/24 06:00 06/09/24 06:41 Central Line Flush IV PUSH 10 ml Q8HR JOHN Administration Sodium Chloride 20 ml 06/05/24 03:12 Central Line Flush IV PUSH PRN PRN after blood draws Umeclidinium [place] 1 puff 06/03/24 08:00 06/09/24 13:26 Umeclidinium [place] 62.5 Mcg Ellipta INHALATION Not Given DAILYRT [facility] Radiology Results: ITS Impressions Renal Ultrasound 06/04/24 15:06 IMPRESSION: 1. Normal kidneys. No hydronephrosis. Chest/Abdomen/Pelvis CT 06/04/24 19:12 IMPRESSION: 1. Diffuse lung disease, consistent with pulmonary edema versus pneumonia. 2. Moderate volume of ascites. Abdomen X-Ray 06/05/24 09:37 IMPRESSION: 1. Lines and tubes all in expected positions. 2. Diffuse patchy bilateral lung disease which could represent pulmonary edema and/or pneumonia. 3. Cardiomegaly. Venous Doppler Study 06/07/24 17:01 IMPRESSION: 1. No deep venous thrombosis. Chest X-Ray 06/09/24 06:16 Impression: 1: Cardiomegaly with mild interstitial edema. No significant interval change allowing for technique. Labs Labs: Laboratory Tests 06/09/24 04:25 06/09/24 04:25 Calcium 10.1 Phosphorus 4.5 Magnesium 2.6 H Total Bilirubin 1.9 H AST 118 H ALT 49 H Alkaline Phosphatase 204 H Total Protein 7.0 Albumin 3.2 L Microbiology 06/08/24 07:43 Blood Blood Culture - Preliminary 06/06/24 07:43 Blood Blood Culture - Preliminary Escherichia Coli Staphylococcus epidermidis 06/08/24 08:00 Blood Blood Culture - Preliminary 06/07/24 15:51 Sputum Sputum Culture - Preliminary Yeast Present 06/02/24 15:21 Blood Blood Culture - Final 06/02/24 15:21 Blood Blood Culture - Final
[2024-06-09 12:24] LABS: Glucose Point of Care 174 mg/dl (65-105)
[2024-06-09] MEDS: NOREPINEPHRINE 8 MG/D5W 250 ML 8 MG/250 ML BAG 11.25 MG IV CONT (13:10)
--- NOTE | 2024-06-09 14:00 | P.PNIM_ITS ---
Progress Note: A&P Assessment and Plan (1) Acute respiratory failure: Code(s): J96.00 - Acute respiratory failure, unspecified whether with hypoxia or hypercapnia Status: Acute Assessment and Plan: Patient with increasing oxygen requirements in the last 24 hours, brought to the ICU after midnight on 06/05/2024, chest x-ray showed bilateral diffuse pulmonary infiltrates/pulmonary edema. Patient was placed on BiPAP. ABG showed hypercapnic and hypoxemic respiratory failure -etiology likely related to pulmonary edema, pneumonia, ARDS -06/05: patient intubated for impending respiratory failure. Intubation was slightly challenging secondary to body habitus, small mouth, large tongue, redundant tissue in the hypopharynx and anterior vocal cords requiring cricoid pressure and use of glide scope. -patient placed on CMV mode of ventilation, peep of 14, 50% FiO2 -chest x-ray and ABGs reviewed, ventilator adjusted -continue bronchodilators -continue steroids for pneumonia - fentanyl and Versed infusion for analgosedation, will maintain RASS of -2 -daily SBT and SAT -continue dialysis for fluid removal (2) Septic shock: Code(s): A41.9 - Sepsis, unspecified organism; R65.21 - Severe sepsis with septic shock Status: Acute Assessment and Plan: Septic shock could be related to UTI, pneumonia -patient was hypotensive in the intermediate Unit and was transferred to the ICU which she received fluids, albumin -continue norepinephrine, will maintain MAP > 65 mmHg or SBP > 100 mmHg adequate end organ perfusion -off vasopressin since 06/06/2024 evening -patient is on vancomycin and cefepime -fluconazole was discontinued given her renal dysfunction -continue stress dose steroids -lactic acid has normalized (3) JOVI (acute kidney injury): Code(s): N17.9 - Acute kidney failure, unspecified Status: Acute Assessment and Plan: Patient with acute kidney injury, this morning her creatinine is 4.60 (creatinine on admission on 06/02/2024 was 2.10 and her creatinine on 04/26/2024 was 0.90) -etiology for acute kidney injury could be multifactorial, hypotension, shock, sepsis, UTI/pneumonia, hypoxia,? SLE flare, CHF, -CK levels are within normal limits -urine eosinophils were negative -urine electrolytes showed prerenal picture, patient seems to be volume overloaded -was given IV fluids and albumin overnight, will hold fluids for now -discussed with subject scientific research at [facility], feels that the patient is unstable to be transferred at this time for CRRT, recommended conventional dialysis. -discussed with cylinder inspector at [facility], agrees to conventional dialysis at this time -06/05: dialysis catheter was placed in the right IJ and exchange for the maida tral line -06/05: Initiate dialysis, with 3000 mL of fluid removal -06/06: Dialysis with 3000 mL in fluid removal -06/07: Dialysis with 3700 mL in fluid removal 06/08: Dialysis with 2900 mL in fluid removal Ongoing dialysis per Nephrology (4) Pulmonary edema: Code(s): J81.1 - Chronic pulmonary edema Status: Acute Assessment and Plan: Pulmonary edema likely related to acute kidney injury, ARDS, -did not respond to Bumex -continue fluid removal with dialysis (5) Type 2 diabetes mellitus: Code(s): E11.9 - Type 2 diabetes mellitus without complications Status: Acute Assessment and Plan: SSI and accucheks HbA1C is 5.7 this admission (6) Afib: Code(s): I48.91 - Unspecified atrial fibrillation Status: Acute Assessment and Plan: continue amiodarone -will stop flecainide (7) SLE (systemic lupus erythematosus): Code(s): M32.9 - Systemic lupus erythematosus, unspecified Status: Acute Assessment and Plan: ? SLE flare Continue stress dose steroids (8) Liver cirrhosis secondary to HOFFMANN: Code(s): K75.81 - Nonalcoholic steatohepatitis (HOFFMANN); K74.60 - Unspecified cirrhosis of liver Status: Acute Assessment and Plan: Mild elevation in LFTs, which are improving -continue to monitor (9) GERD (gastroesophageal reflux disease): Code(s): K21.9 - Gastro-esophageal reflux disease without esophagitis Status: Acute Assessment and Plan: Continue Protonix (10) Morbid obesity with BMI of 50.0-59.9, adult: Code(s): E66.01 - Morbid (severe) obesity due to excess calories; Z68.43 - Body mass index [BMI] 50.0-59.9, adult Status: Acute Assessment and Plan: Once extubated she will need lifestyle changes Plan DVT prophylaxis: Eliquis Stress ulcer prophylaxis: Protonix Nutrition: Patient tolerating tube feeds at 20 mL/hour, will increase to goal Code Status: Full code Subjective Date/time seen: 06/09/24 14:00 Interval history: Events noted. Getting dialysis. Remains on Levophed. Sedated and intubated. Review of Systems Review of Systems: ROS unobtainable: Yes unobtainable due to mental status Exam Narrative: General: Morbidly obese female currently intubated and sedated in no acute distress HEENT:? Pupils equal and reactive bilaterally, sclera is clear, ETT in place Neck:, short and thick neck, Respiratory:? Decreased and coarse breath sounds bilaterally, no wheezing, Cardiac:? S1-S2 is normal, regular rate and rhythm Abdomen:? Morbid obesity, soft, hypoactive bowel sounds Extremities:? Bilateral lower extremity pitting edema up to the thighs, decreased pedal pulses. Right calf is erythematous, warm Neuro:? Patient is intubated, sedated, opens her eyes, follows simple commands in all extremities and nods to questions Skin:? Erythema in the intertriginous region and under her pannus Psych:? Unable to assess at this time Objective Data Vital Signs Vital Signs: Vital Signs - 24 hr 06/08/24 14:12 06/08/24 14:15 06/08/24 14:22 Temperature Pulse Rate 60 60 60 Respiratory Rate 24 H 24 H Blood Pressure Pulse Oximetry 97 Oxygen Delivery Mechanical Ventilation Fraction of Inspired Oxygen 50 06/08/24 16:00 06/08/24 16:00 06/08/24 16:00 Temperature Pulse Rate 60 60 60 Respiratory Rate 24 H 24 H Blood Pressure 103/40 L Pulse Oximetry Oxygen Delivery Fraction of Inspired Oxygen 06/08/24 16:00 06/08/24 16:00 06/08/24 16:00 Temperature 98.2 F Pulse Rate 60 60 Respiratory Rate 24 H Blood Pressure 103/40 L Pulse Oximetry 94 94 Oxygen Delivery Mechanical Ventilation Fraction of Inspired Oxygen 50 06/08/24 16:00 06/08/24 17:15 06/08/24 17:45 Temperature Pulse Rate 62 60 Respiratory Rate Blood Pressure 99/37 L Pulse Oximetry 93 Oxygen Delivery Mechanical Ventilation Fraction of Inspired Oxygen 50 50 06/08/24 17:55 06/08/24 18:00 06/08/24 18:00 Temperature Pulse Rate 60 60 60 Respiratory Rate 24 H Blood Pressure 128/55 L 125/54 L Pulse Oximetry Oxygen Delivery Fraction of Inspired Oxygen 06/08/24 18:00 06/08/24 18:00 06/08/24 18:00 Temperature Pulse Rate 60 61 61 Respiratory Rate 24 H 24 H Blood Pressure 125/54 L Pulse Oximetry 96 Oxygen Delivery Fraction of Inspired Oxygen 06/08/24 20:00 06/08/24 20:27 06/08/24 20:00 Temperature Pulse Rate 60 60 60 Respiratory Rate 24 H Blood Pressure 97/63 L Pulse Oximetry Oxygen Delivery Fraction of Inspired Oxygen 06/08/24 20:00 06/08/24 20:00 06/08/24 20:00 Temperature 98.4 F Pulse Rate 60 60 Respiratory Rate 24 H 24 H Blood Pressure 119/48 L Pulse Oximetry 96 Oxygen Delivery Fraction of Inspired Oxygen 50 06/08/24 21:06 06/08/24 20:00 06/08/24 22:00 Temperature Pulse Rate 60 60 60 Respiratory Rate Blood Pressure Pulse Oximetry 93 Oxygen Delivery Mechanical Ventilation Fraction of Inspired Oxygen 50 06/08/24 22:00 06/08/24 22:00 06/08/24 22:00 Temperature Pulse Rate 60 60 60 Respiratory Rate 24 H 24 H Blood Pressure 112/45 L Pulse Oximetry Oxygen Delivery Fraction of Inspired Oxygen 06/08/24 22:00 06/08/24 21:00 06/09/24 00:00 Temperature Pulse Rate 60 60 60 Respiratory Rate 24 H 24 H Blood Pressure 112/45 L 119/49 L 109/44 L Pulse Oximetry 96 96 Oxygen Delivery Fraction of Inspired Oxygen 06/09/24 00:00 06/09/24 00:00 06/08/24 20:00 Temperature Pulse Rate 60 60 60 Respiratory Rate 24 H 24 H 24 H Blood Pressure Pulse Oximetry 96 Oxygen Delivery Mechanical Ventilation Fraction of Inspired Oxygen 50 06/09/24 00:00 06/09/24 00:00 06/09/24 00:00 Temperature Pulse Rate 60 60 Respiratory Rate 24 H 24 H Blood Pressure 109/44 L Pulse Oximetry 96 96 Oxygen Delivery Mechanical Ventilation Fraction of Inspired Oxygen 50 50 06/09/24 01:15 06/09/24 01:00 06/08/24 23:00 Temperature Pulse Rate 60 60 Respiratory Rate Blood Pressure 109/40 L 108/40 L Pulse Oximetry 96 Oxygen Delivery Mechanical Ventilation Fraction of Inspired Oxygen 50 06/08/24 21:02 06/09/24 01:20 06/08/24 21:12 Temperature Pulse Rate 60 60 62 Respiratory Rate 24 H 24 H Blood Pressure 120/49 L Pulse Oximetry Oxygen Delivery Fraction of Inspired Oxygen 06/09/24 01:30 06/09/24 01:50 06/09/24 00:00 Temperature Pulse Rate 60 60 60 Respiratory Rate Blood Pressure 118/47 L 104/39 L Pulse Oximetry Oxygen Delivery Fraction of Inspired Oxygen 06/09/24 02:00 06/09/24 02:00 06/09/24 02:00 Temperature Pulse Rate 60 60 60 Respiratory Rate 24 H 24 H Blood Pressure 117/49 L Pulse Oximetry Oxygen Delivery Fraction of Inspired Oxygen 06/09/24 02:05 06/09/24 02:07 06/08/24 23:00 Temperature Pulse Rate 60 60 60 Respiratory Rate 24 H 24 H Blood Pressure 106/44 L Pulse Oximetry 96 96 Oxygen Delivery Mechanical Ventilation Fraction of Inspired Oxygen 50 06/09/24 02:00 06/09/24 03:00 06/09/24 04:00 Temperature Pulse Rate 60 60 60 Respiratory Rate 24 H 24 H 24 H Blood Pressure 117/49 L 118/46 L 119/49 L Pulse Oximetry 96 96 96 Oxygen Delivery Fraction of Inspired Oxygen 06/09/24 04:36 06/09/24 04:00 06/09/24 04:00 Temperature Pulse Rate 62 60 60 Respiratory Rate 24 H Blood Pressure 117/48 L Pulse Oximetry 96 Oxygen Delivery Mechanical Ventilation Fraction of Inspired Oxygen 50 06/09/24 04:00 06/09/24 04:53 06/09/24 02:17 Temperature Pulse Rate 60 60 61 Respiratory Rate 24 H 24 H Blood Pressure 118/46 L Pulse Oximetry Oxygen Delivery Fraction of Inspired Oxygen 06/09/24 04:00 06/09/24 04:00 06/09/24 04:00 Temperature Pulse Rate 60 60 Respiratory Rate 24 H Blood Pressure Pulse Oximetry 96 Oxygen Delivery Mechanical Ventilation Fraction of Inspired Oxygen 50 50 06/09/24 06:00 06/09/24 06:00 06/09/24 05:00 Temperature 97.9 F Pulse Rate 60 60 60 Respiratory Rate 24 H 24 H Blood Pressure 111/53 L 116/47 L Pulse Oximetry 95 96 Oxygen Delivery Fraction of Inspired Oxygen 06/09/24 06:00 06/09/24 06:00 06/09/24 06:00 Temperature Pulse Rate 62 60 60 Respiratory Rate 24 H 24 H Blood Pressure 110/53 L Pulse Oximetry Oxygen Delivery Fraction of Inspired Oxygen 06/09/24 07:36 06/09/24 07:36 06/09/24 07:44 Temperature Pulse Rate 61 61 93 Respiratory Rate 24 H 24 H Blood Pressure Pulse Oximetry 94 Oxygen Delivery Mechanical Ventilation Fraction of Inspired Oxygen 50 06/09/24 07:45 06/09/24 07:00 06/09/24 08:26 Temperature Pulse Rate 62 62 Respiratory Rate Blood Pressure 119/49 L 110/44 L Pulse Oximetry 94 Oxygen Delivery Mechanical Ventilation Fraction of Inspired Oxygen 50 06/09/24 08:00 06/09/24 08:00 06/09/24 08:00 Temperature Pulse Rate 60 60 Respiratory Rate 24 H Blood Pressure Pulse Oximetry 95 Oxygen Delivery Mechanical Ventilation Fraction of Inspired Oxygen 50 50 06/09/24 08:00 06/09/24 08:57 06/09/24 09:06 Temperature 98.0 F 98.3 F Pulse Rate 61 60 60 Respiratory Rate 24 H 24 H Blood Pressure 110/43 L 104/40 L 103/40 L Pulse Oximetry 94 96 Oxygen Delivery Fraction of Inspired Oxygen 06/09/24 09:30 06/09/24 09:45 06/09/24 10:00 Temperature Pulse Rate 61 60 60 Respiratory Rate Blood Pressure 110/45 L 103/42 L 113/47 L Pulse Oximetry Oxygen Delivery Fraction of Inspired Oxygen 06/09/24 10:15 06/09/24 10:30 06/09/24 10:45 Temperature Pulse Rate 61 60 60 Respiratory Rate Blood Pressure 124/53 L 125/54 L 117/50 L Pulse Oximetry Oxygen Delivery Fraction of Inspired Oxygen 06/09/24 11:00 06/09/24 11:15 06/09/24 11:30 Temperature Pulse Rate 60 60 60 Respiratory Rate Blood Pressure 109/44 L 114/58 L 113/47 L Pulse Oximetry Oxygen Delivery Fraction of Inspired Oxygen 06/09/24 11:45 06/09/24 12:00 06/09/24 09:09 Temperature Pulse Rate 60 60 60 Respiratory Rate Blood Pressure 110/46 L 113/47 L 102/39 L Pulse Oximetry Oxygen Delivery Fraction of Inspired Oxygen 06/09/24 09:21 06/09/24 09:15 06/09/24 09:55 Temperature Pulse Rate 60 60 60 Respiratory Rate Blood Pressure 120/50 L 100/38 L Pulse Oximetry Oxygen Delivery Fraction of Inspired Oxygen 06/09/24 10:00 06/09/24 10:00 06/09/24 08:05 Temperature Pulse Rate 60 60 60 Respiratory Rate 24 H Blood Pressure 109/42 L Pulse Oximetry 94 Oxygen Delivery Fraction of Inspired Oxygen 06/09/24 10:51 06/09/24 10:00 06/09/24 11:00 Temperature Pulse Rate 60 60 60 Respiratory Rate Blood Pressure 109/42 L 108/43 L Pulse Oximetry 93 Oxygen Delivery Mechanical Ventilation Fraction of Inspired Oxygen 50 06/09/24 12:00 06/09/24 12:25 06/09/24 07:00 Temperature Pulse Rate 60 60 60 Respiratory Rate 24 H Blood Pressure 112/49 L 105/42 L Pulse Oximetry Oxygen Delivery Fraction of Inspired Oxygen 06/09/24 09:00 06/09/24 11:00 06/09/24 07:00 Temperature Pulse Rate 60 60 60 Respiratory Rate 24 H 24 H 24 H Blood Pressure Pulse Oximetry Oxygen Delivery Fraction of Inspired Oxygen 06/09/24 09:00 06/09/24 11:00 06/09/24 12:00 Temperature Pulse Rate 60 60 60 Respiratory Rate 24 H 24 H Blood Pressure Pulse Oximetry Oxygen Delivery Fraction of Inspired Oxygen 06/09/24 12:00 06/09/24 12:00 06/09/24 12:00 Temperature 98 F Pulse Rate 60 60 Respiratory Rate 24 H 24 H Blood Pressure 112/49 L Pulse Oximetry 93 95 Oxygen Delivery Mechanical Ventilation Fraction of Inspired Oxygen 50 50 06/09/24 12:08 06/09/24 12:17 06/09/24 13:09 Temperature 97.7 F Pulse Rate 60 67 60 Respiratory Rate 24 H Blood Pressure 116/48 L 121/52 L 98/48 L Pulse Oximetry 95 Oxygen Delivery Fraction of Inspired Oxygen 06/09/24 13:10 06/09/24 13:18 06/09/24 13:00 Temperature Pulse Rate 60 62 62 Respiratory Rate 24 H Blood Pressure 104/47 L 98/52 L Pulse Oximetry Oxygen Delivery Fraction of Inspired Oxygen 06/09/24 13:26 06/09/24 13:26 06/09/24 13:26 Temperature Pulse Rate 62 60 60 Respiratory Rate 24 H 25 H Blood Pressure Pulse Oximetry 95 Oxygen Delivery Mechanical Ventilation Fraction of Inspired Oxygen 50 06/09/24 13:35 Temperature Pulse Rate 60 Respiratory Rate 24 H Blood Pressure Pulse Oximetry Oxygen Delivery Fraction of Inspired Oxygen Intake/Output Intake/Output: Intake & Output 06/06/24 06/07/24 06/08/24 06/09/24 23:59 23:59 23:59 23:59 Intake Total 1263.6 937.2 1167.3 884.1 Output Total 3230 4170 3254 3150 Balance -1966.4 -3232.8 -2086.7 -2265.9 Meds/Results Medications: Active Medications Generic Name Dose Route Start Last Admin Trade Name Freq PRN Reason Stop Dose Admin Acetaminophen 650 mg 06/07/24 21:53 06/07/24 22:30 Acetaminophen Elixir 325 Mg/10.15 Ml Udc PO 650 mg Q6H PRN Administration Mild Pain (1-3) or Fever Albuterol/Ipratropium 3 ml 06/05/24 11:15 06/09/24 13:26 Ipratropium 0.5 Mg/Albuterol Sulfate 2.5 Mg Ampul.Neb 3 Ml INHALATION 3 ml Q6HRT JOHN Administration Amiodarone HCl 200 mg 06/02/24 21:00 06/09/24 09:21 Amiodarone Hcl 200 Mg Tablet PO 200 mg Q12HR JOHN Administration Apixaban 5 mg 06/06/24 09:30 06/09/24 09:21 Apixaban 5 Mg Tablet PO 5 mg Q12HR JOHN Administration Dextrose 12.5 gm 06/05/24 11:46 Dextrose 50% 25 Gm/50 Ml Syringe IV PUSH PRN PRN Hypoglycemia Protocol Flecainide Acetate 100 mg 06/02/24 21:00 06/08/24 10:26 Flecainide Acetate 100 Mg Tablet PO Not Given Q12HR JOHN Gabapentin 200 mg 06/02/24 22:00 06/04/24 21:07 Gabapentin 100 Mg Capsule PO 200 mg Q8HR JOHN Administration Glucagon 1 mg 06/05/24 11:46 Glucagon For Inj 1 Mg Vial IM PRN PRN Hypoglycemia Protocol Glucose 15 gm 06/05/24 11:46 Glucose Oral Gel 15 Gm Of Glucse In 37.5 Gm Tube PO PRN PRN Hypoglycemia Protocol Hydrocortisone Sodium Succinate 100 mg 06/05/24 14:00 06/09/24 06:40 Hydrocortisone Sodium Succinate 100 Mg/2 Ml Vial IV PUSH 100 mg Q8HR JOHN Administration Norepinephrine Bitartrate 8 mg in 250 mls @ 15 mls/hr 06/05/24 00:35 06/09/24 13:18 Levophed 8 Mg/D5w 250 Ml IV CONT 8 mcg/min .[id number] JOHN 15 mls/hr Titration Protocol 8 MCG/MIN Fentanyl Citrate 2,500 mcg in 250 mls @ 2.5 mls/hr 06/05/24 08:35 06/09/24 13:00 Fentanyl 2,500 Mcg/Ns 250 Ml IV CONT 25 mcg/hr .Q72H JOHN 2.5 mls/hr Titration Protocol 25 MCG/HR Midazolam HCl 100 mg in 100 mls @ 1 mls/hr 06/05/24 08:35 06/09/24 13:26 Versed 100 Mg/Ns 100 Ml IV CONT 1 mg/hr .Q72H JOHN 1 mls/hr Titration Protocol 1 MG/HR Dextrose 1,000 mls @ 100 mls/hr 06/05/24 11:46 Dextrose 5% 1,000 Ml IVPB PRN PRN Hypoglycemia Protocol Cefepime HCl 1 gm in 50 mls @ 100 mls/hr 06/06/24 16:00 06/08/24 17:16 Maxipime 1 Gm/Ns 50 Ml IVPB Infused Q24H JOHN Infusion Albumin Human 50 mls @ 999 mls/hr 06/08/24 09:50 Albutein IVPB 06/12/24 08:39 Q10M PRN HYPOTENSION Insulin Aspart 3 - 6 units 06/05/24 12:00 06/09/24 12:24 Insulin Aspart (*Bkc) 100 Units/Ml SUB-Q Not Given Q6HR [facility] Protocol Midodrine 10 mg 06/05/24 09:00 06/09/24 13:05 Midodrine Hcl 10 Mg Tablet PO 10 mg TID JOHN Administration Multi-Ingred Cream/Lotion/Oil/Oint 1 applic 06/05/24 09:00 06/09/24 09:22 Mineral Oil/White Petrolatum Ointment EACH EYE 1 applic Q12HR JOHN Administration Pantoprazole Sodium 40 mg 06/06/24 09:00 06/09/24 09:21 Pantoprazole Sodium Iv 40 Mg Vial IV PUSH 40 mg Q12HR JOHN Administration Fluticasone/Salmeterol 2 puff 06/03/24 08:00 06/09/24 13:25 Fluticasone/Salmeterol 115-21 Mcg Inhaler 1 Puff INHALATION Not Given Q12HRT JOHN Sodium Chloride 10 ml 06/05/24 06:00 06/09/24 06:41 Central Line Flush IV PUSH 10 ml Q8HR JOHN Administration Sodium Chloride 20 ml 06/05/24 03:12 Central Line Flush IV PUSH PRN PRN after blood draws Umeclidinium [place] 1 puff 06/03/24 08:00 06/09/24 13:26 Umeclidinium [place] 62.5 Mcg Ellipta INHALATION Not Given DAILYRT [facility] Radiology Results: ITS Impressions Renal Ultrasound 06/04/24 15:06 IMPRESSION: 1. Normal kidneys. No hydronephrosis. Chest/Abdomen/Pelvis CT 06/04/24 19:12 IMPRESSION: 1. Diffuse lung disease, consistent with pulmonary edema versus pneumonia. 2. Moderate volume of ascites. Abdomen X-Ray 06/05/24 09:37 IMPRESSION: 1. Lines and tubes all in expected positions. 2. Diffuse patchy bilateral lung disease which could represent pulmonary edema and/or pneumonia. 3. Cardiomegaly. Venous Doppler Study 06/07/24 17:01 IMPRESSION: 1. No deep venous thrombosis. Chest X-Ray 06/09/24 06:16 Impression: 1: Cardiomegaly with mild interstitial edema. No significant interval change allowing for technique. Labs Labs: Laboratory Results - last 24 hr 06/08/24 06/08/24 06/09/24 17:47 23:44 04:25 WBC 15.3 H RBC 3.91 L Hgb 10.7 L Hct 33.1 L MCV 84.7 MCH 27.4 MCHC 32.3 RDW 17.6 H Plt Count 392 H MPV 9.7 Immature Gran % (Auto) 1.4 H Neut % (Auto) 81.1 H Lymph % (Auto) 8.8 L [place] % (Auto) 8.4 Eos % (Auto) 0.0 Baso % (Auto) 0.3 Lymph # (Auto) 1.35 [place] # (Auto) 1.3 H Eos # (Auto) 0.0 Baso # (Auto) 0.0 Abs Immat Gran (auto) 0.22 H Absolute Neuts (auto) 12.4 H Absolute Nucleated RBC 0.000 Nucleated RBC % 0.0 Puncture Site Artline ABG pH 7.451 H ABG pCO2 37.2 ABG pO2 96.6 ABG PO2/FiO2 Ratio 1.93 ABG HCO3 25.3 ABG O2 Saturation 97.7 ABG O2 Content 15.7 L ABG Base Excess 1.5 A-a Gradient 218.1 Oxyhemoglobin 97.3 Carboxyhemoglobin 0.1 Methemoglobin 0.1 Reduced Hemoglobin 2.5 Total Hemoglobin 11.4 L O2 Delivery Device Ventilator O2 Liters/Min Not Reportable Minute Volume Not Reportable Vent Rate 24 Vent Mode Cmv FiO2 50 Tidal Volume 400 PEEP 14 Peak Inspir Pressure Not Reportable Pressure Support Not Reportable Sodium 132 L Potassium 4.0 Chloride 97 L Carbon Dioxide 28 Anion Gap 7 BUN 60 H Creatinine 3.80 H Estim Creat Clear Calc 26 Estimated GFR 12 L Glucose 176 H POC Capillary Glucose 149 H 145 H Calcium 10.1 Phosphorus 4.5 Magnesium 2.6 H Total Bilirubin 1.9 H AST 118 H ALT 49 H Alkaline Phosphatase 204 H Total Protein 7.0 Albumin 3.2 L 06/09/24 06/09/24 06:43 12:22 WBC RBC Hgb Hct MCV MCH MCHC RDW Plt Count MPV Immature Gran % (Auto) Neut % (Auto) Lymph % (Auto) [place] % (Auto) Eos % (Auto) Baso % (Auto) Lymph # (Auto) [place] # (Auto) Eos # (Auto) Baso # (Auto) Abs Immat Gran (auto) Absolute Neuts (auto) Absolute Nucleated RBC Nucleated RBC % Puncture Site ABG pH ABG pCO2 ABG pO2 ABG PO2/FiO2 Ratio ABG HCO3 ABG O2 Saturation ABG O2 Content ABG Base Excess A-a Gradient Oxyhemoglobin Carboxyhemoglobin Methemoglobin Reduced Hemoglobin Total Hemoglobin O2 Delivery Device O2 Liters/Min Minute Volume Vent Rate Vent Mode FiO2 Tidal Volume PEEP Peak Inspir Pressure Pressure Support Sodium Potassium Chloride Carbon Dioxide Anion Gap BUN Creatinine Estim Creat Clear Calc Estimated GFR Glucose POC Capillary Glucose 175 H 174 H Calcium Phosphorus Magnesium Total Bilirubin AST ALT Alkaline Phosphatase Total Protein Albumin
[2024-06-09] MEDS: CEFEPIME 1 GM/NS 50 ML 1 GM/50 ML BAG IVPB (15:05)
[2024-06-09] MEDS: MIDAZOLAM 100MG/NS 100ML(*CRX) 100 MG/100 ML BAG IV CONT (18:05)
[2024-06-09 18:10] LABS: Glucose Point of Care 176 mg/dl (65-105)
[2024-06-10] VITALS (38 sets, daily range): BP systolic 101–140; BP diastolic 39–62; PULSE 60–64; RESP 24; TEMP 36.1–37.1; O2SAT 93–100
[2024-06-10 00:54] LABS: Glucose Point of Care 206 mg/dl (65-105)
[2024-06-10] MEDS: INSULIN ASPART (*BKC) 100 UNITS/ML SUB-Q (00:57)
[2024-06-10] MEDS: IPRATROPIUM 0.5 MG/ALBUTEROL SULFATE 2.5 MG AMPUL.NEB 3 ML INHALATION ×4 (02:33→19:11)
[2024-06-10 04:46] LABS: Glucose Point of Care 171 mg/dl (65-105)
[2024-06-10 05:10] LABS: Alveolar/Arterial O2 Gradient 198.1 mmHg; Carboxyhemoglobin 0.2 % THb (0-2.0); Fractional Inspired Oxygen 45 %; HCO3 ABG 27.3 mEq/l (22.0-26.0); Methemoglobin ABG 0.2 %THb (0-1.5); Oxygen Content ABG 15.4 %vol (16.0-22.0); Oxygen Saturation ABG 95.9 % (95.0-100.0); Oxyhemoglobin 94.9 % THb (90.0-100.0); PCO2 ABG 40.3 mmHg (35.0-45.0); PO2 ABG 76.9 mmHg (80.0-100.0); PO2 FiO2 Ratio Arterial Blood 1.71 %; Reduced Hemoglobin 4.7 %THb (0-5.0); Total Hemoglobin 11.5 g/dL (12.0-18.0); pH ABG 7.448 (7.350-7.450)
[2024-06-10 05:14] LABS: Basophils Percent Auto 0.2 % (0.2-1.2); Eosinophils Percent Auto 0.1 % (0-4.4); Hematocrit 33.5 % (37.0-47.0); Hemoglobin 10.5 g/dL (12.0-15.0); Immature Granulocyte Absolute 0.13 K/mm3 (0.00-0.031); Lymphocytes Absolute Auto 0.57 K/mm3 (0.9-3.2); Lymphocytes Percent Auto 4.3 % (18.3-44.2); Mean Corpuscular HGB Conc 31.3 g/dl (32-36); Mean Corpuscular Hemoglobin 26.6 pg (26-34); Mean Corpuscular Volume 84.8 fl (80-100); Mean Platelet Volume 9.5 fl (7.4-10.4); Monocytes Absolute Auto 0.7 K/mm3 (0.1-0.6); Monocytes Percent Auto 5.6 % (2.6-8.5); Neutrophils Absolute Auto 11.8 K/mm3 (1.3-6.7); Neutrophils Percent Auto 88.8 % (45.5-73.1); Platelet Count Result 392 k/mm3 (150-375); Red Blood Count 3.95 M/mm3 (4.2-5.4); White Blood Count 13.2 K/mm3 (4.5-10.0)
[2024-06-10 05:14] LABS: Arterial Blood Gas Vent Mode CMV; Arterial Blood Gas Ventilator rate 24 /MIN; Device VENTILATOR; Site Drawn ARTLINE
[2024-06-10 05:15] LABS: Arterial Blood Gas PEEP 14 cmH2O; Arterial Blood Gas Tidal Volume 400 ml
[2024-06-10 05:32] LABS: Alanine Aminotransferase 53 U/L (6-35); Albumin Level 3.2 g/dL (3.5-5.1); Alkaline Phosphatase 177 U/L (38-126); Anion Gap 9 mmol/L (4-12); Aspartate Amino Transferase 106 U/L (14-36); Bilirubin,Total 1.6 mg/dL (0.2-1.3); Blood Urea Nitrogen 80 mg/dL (7-17); Calcium 10.4 mg/dL (8.4-10.2); Carbon Dioxide 26 mmol/L (22-30); Chloride 97 mmol/L (98-107); Estimated CRCL calculation 24 ml/min; Estimated Glomerular Filt Rate 11; Glucose 166 mg/dL (65-110); Magnesium 2.7 mg/dL (1.6-2.3); Phosphorus 5.1 mg/dL (2.5-4.5); Potassium 4.1 mmol/L (3.4-5.0); Sodium 132 mmol/L (137-145)
[2024-06-10 05:42] LABS: Anisocytosis 1+; Hypochromasia 1+; Platelet Estimate Adequate (Adequate); Schistocytes Rare
[2024-06-10] MEDS: CENTRAL LINE FLUSH 10 ML IV PUSH ×3 (08:00→21:00)
--- NOTE | 2024-06-10 08:32 | WPDINTPN ---
Progress Note: A&P Assessment and Plan (1) Acute respiratory failure: Code(s): J96.00 - Acute respiratory failure, unspecified whether with hypoxia or hypercapnia Status: Acute Assessment and Plan: Patient with increasing oxygen requirements in the last 24 hours, brought to the ICU after midnight on 06/05/2024, chest x-ray showed bilateral diffuse pulmonary infiltrates/pulmonary edema. Patient was placed on BiPAP. ABG showed hypercapnic and hypoxemic respiratory failure -etiology likely related to pulmonary edema, pneumonia, ARDS -06/05: patient intubated for impending respiratory failure. Intubation was slightly challenging secondary to body habitus, small mouth, large tongue, redundant tissue in the hypopharynx and anterior vocal cords requiring cricoid pressure and use of glide scope. -patient placed on CMV mode of ventilation, peep of 14, 50% FiO2, start weaning FiO2 -chest x-ray and ABGs reviewed, ventilator adjusted -continue bronchodilators -continue steroids for pneumonia - fentanyl and Versed infusion for analgosedation, will maintain RASS of -2 -daily SBT and SAT -continue dialysis for fluid removal (2) Septic shock: Code(s): A41.9 - Sepsis, unspecified organism; R65.21 - Severe sepsis with septic shock Status: Acute Assessment and Plan: Septic shock could be related to UTI, pneumonia -patient was hypotensive in the intermediate Unit and was transferred to the ICU which she received fluids, albumin -continue norepinephrine, will maintain MAP > 65 mmHg or SBP > 100 mmHg adequate end organ perfusion -off vasopressin since 06/06/2024 evening -patient is on vancomycin and cefepime -fluconazole was discontinued given her renal dysfunction -continue stress dose steroids -continue midodrine -lactic acid has normalized (3) JOVI (acute kidney injury): Code(s): N17.9 - Acute kidney failure, unspecified Status: Acute Assessment and Plan: Patient with acute kidney injury, this morning her creatinine is 4.60 (creatinine on admission on 06/02/2024 was 2.10 and her creatinine on 04/26/2024 was 0.90) -etiology for acute kidney injury could be multifactorial, hypotension, shock, sepsis, UTI/pneumonia, hypoxia,? SLE flare, CHF, -CK levels are within normal limits -urine eosinophils were negative -urine electrolytes showed prerenal picture, patient seems to be volume overloaded -was given IV fluids and albumin overnight, will hold fluids for now -discussed with shipping & receiving lead at [facility], feels that the patient is unstable to be transferred at this time for CRRT, recommended conventional dialysis. -discussed with automatic presser at [facility], agrees to conventional dialysis at this time -06/05: dialysis catheter was placed in the right IJ and exchange for the central line -06/05: Initiated dialysis, with 3000 mL of fluid removal -06/06: Dialysis with 3000 mL in fluid removal -06/07: Dialysis with 3700 mL in fluid removal -06/08: Dialysis with 2900 mL in fluid removal -06/09: Dialysis with 3000 mL in fluid removal Will dialyze again today per Nephrology (4) Pulmonary edema: Code(s): J81.1 - Chronic pulmonary edema Status: Acute Assessment and Plan: Pulmonary edema likely related to acute kidney injury, ARDS, -did not respond to Bumex -continue fluid removal with dialysis (5) Type 2 diabetes mellitus: Code(s): E11.9 - Type 2 diabetes mellitus without complications Status: Acute Assessment and Plan: SSI and accucheks HbA1C is 5.7 this admission (6) Afib: Code(s): I48.91 - Unspecified atrial fibrillation Status: Acute Assessment and Plan: continue amiodarone - flecainide was stopped (7) SLE (systemic lupus erythematosus): Code(s): M32.9 - Systemic lupus erythematosus, unspecified Status: Acute Assessment and Plan: ? SLE flare Continue stress dose steroids (8) Liver cirrhosis secondary to HOFFMANN: Code(s): K75.81 - Nonalcoholic steatohepatitis (HOFFMANN); K74.60 - Unspecified cirrhosis of liver Status: Acute Assessment and Plan: Continues to have mild elevation in LFTs and bilirubin which is stable Check right upper quadrant ultrasound and hepatitis panel -continue to monitor (9) GERD (gastroesophageal reflux disease): Code(s): K21.9 - Gastro-esophageal reflux disease without esophagitis Status: Acute Assessment and Plan: Continue Protonix (10) Morbid obesity with BMI of 50.0-59.9, adult: Code(s): E66.01 - Morbid (severe) obesity due to excess calories; Z68.43 - Body mass index [BMI] 50.0-59.9, adult Status: Acute Assessment and Plan: Once extubated she will need lifestyle changes Plan DVT prophylaxis: Eliquis Stress ulcer prophylaxis: Protonix Nutrition: Tube feeds at goal and tolerating Code Status: Full code Critical Care Time Spent: 33 minutes 06/05: Discussed with JAMES Blunt, patient's sister in the conference room updated with patient's condition and plan of care. The POA is aware that patient is significantly ill and at condition is guarded. I also explained to her that we initiated transfer to [facility] but given her increased ventilatory support, the shipping & receiving lead at [facility] recommended starting conventional dialysis over [facility]. I answered all her questions. Discussed with patient's sister JAMES Blunt, on the phone and updated with patient's condition and plan of care. I answered all questions Due to a high probability of clinically significant, life threatening deterioration, the patient required my highest level of preparedness to intervene emergently and I personally spent this critical care time directly and personally managing the patient. This critical care time included obtaining a history; examining the patient; pulse oximetry; ordering and review of studies; arranging urgent treatment with development of a management plan; evaluation of patient's response to treatment; frequent reassessment; and discussions with other providers. It was exclusive of separately billable procedures and treating other patients and teaching time. Please see Assessment and Plan section and the rest of the note for further information on patient assessment and treatment This dictation may have been done utilizing a voice recognition system. Attempts have been made to correct errors. However, there may be uncorrected grammatical, spelling, and recognitions errors present. Subjective Date/time seen: 06/10/24 08:32 Interval history: Reason for consult: Acute respiratory failure, septic shock, acute kidney injury, pulmonary edema 06/05: Intubated 06/10/2024: Patient seen and examined the ICU, remains intubated on CMV mode of ventilation, peep of 14 45% FiO2. Sedated with fentanyl and Versed infusion, opens her eyes, follows simple commands in all extremities and nods to questions. Had 3000 mL in fluid removal with dialysis yesterday, remains afebrile, urine output has low. Remains on Levophed at 5 mcg/min Review of Systems Review of Systems: ROS unobtainable: Yes unobtainable due to endotracheal tube, unobtainable due to medical condition and unobtainable due to mental status Exam Narrative: General: Morbidly obese female currently intubated and sedated in no acute distress HEENT:? Pupils equal and reactive bilaterally, sclera is clear, ETT in place Neck:, short and thick neck, Respiratory:? Decreased and coarse breath sounds bilaterally, no wheezing, Cardiac:? S1-S2 is normal, regular rate and rhythm Abdomen:? Morbid obesity, soft, hypoactive bowel sounds Extremities:? Bilateral lower extremity pitting edema up to the thighs, decreased pedal pulses. Right calf is erythematous, warm Neuro:? Patient is intubated, sedated, opens her eyes, follows simple commands in all extremities and nods to questions Skin:? Erythema in the intertriginous region and under her pannus Psych:? Unable to assess at this time Objective Data Vital Signs Vital Signs: Vital Signs - 24 hr 06/09/24 08:57 06/09/24 09:06 06/09/24 09:30 Temperature 98.3 F Pulse Rate 60 60 61 Respiratory Rate 24 H Blood Pressure 104/40 L 103/40 L 110/45 L Pulse Oximetry 96 Oxygen Delivery Fraction of Inspired Oxygen 06/09/24 09:45 06/09/24 10:00 06/09/24 10:15 Temperature Pulse Rate 60 60 61 Respiratory Rate Blood Pressure 103/42 L 113/47 L 124/53 L Pulse Oximetry Oxygen Delivery Fraction of Inspired Oxygen 06/09/24 10:30 06/09/24 10:45 06/09/24 11:00 Temperature Pulse Rate 60 60 60 Respiratory Rate Blood Pressure 125/54 L 117/50 L 109/44 L Pulse Oximetry Oxygen Delivery Fraction of Inspired Oxygen 06/09/24 11:15 06/09/24 11:30 06/09/24 11:45 Temperature Pulse Rate 60 60 60 Respiratory Rate Blood Pressure 114/58 L 113/47 L 110/46 L Pulse Oximetry Oxygen Delivery Fraction of Inspired Oxygen 06/09/24 12:00 06/09/24 09:09 06/09/24 09:21 Temperature Pulse Rate 60 60 60 Respiratory Rate Blood Pressure 113/47 L 102/39 L Pulse Oximetry Oxygen Delivery Fraction of Inspired Oxygen 06/09/24 09:15 06/09/24 09:55 06/09/24 10:00 Temperature Pulse Rate 60 60 60 Respiratory Rate Blood Pressure 120/50 L 100/38 L Pulse Oximetry Oxygen Delivery Fraction of Inspired Oxygen 06/09/24 10:00 06/09/24 10:51 06/09/24 10:00 Temperature Pulse Rate 60 60 60 Respiratory Rate 24 H Blood Pressure 109/42 L 109/42 L Pulse Oximetry 94 93 Oxygen Delivery Mechanical Ventilation Fraction of Inspired Oxygen 50 06/09/24 11:00 06/09/24 12:00 06/09/24 12:25 Temperature Pulse Rate 60 60 60 Respiratory Rate Blood Pressure 108/43 L 112/49 L 105/42 L Pulse Oximetry Oxygen Delivery Fraction of Inspired Oxygen 06/09/24 09:00 06/09/24 11:00 06/09/24 09:00 Temperature Pulse Rate 60 60 60 Respiratory Rate 24 H 24 H 24 H Blood Pressure Pulse Oximetry Oxygen Delivery Fraction of Inspired Oxygen 06/09/24 11:00 06/09/24 12:00 06/09/24 12:00 Temperature Pulse Rate 60 60 60 Respiratory Rate 24 H 24 H Blood Pressure Pulse Oximetry 93 Oxygen Delivery Mechanical Ventilation Fraction of Inspired Oxygen 50 06/09/24 12:00 06/09/24 12:00 06/09/24 12:08 Temperature 98 F Pulse Rate 60 60 Respiratory Rate 24 H Blood Pressure 112/49 L 116/48 L Pulse Oximetry 95 Oxygen Delivery Fraction of Inspired Oxygen 50 06/09/24 12:17 06/09/24 13:09 06/09/24 13:10 Temperature 97.7 F Pulse Rate 67 60 60 Respiratory Rate 24 H Blood Pressure 121/52 L 98/48 L 104/47 L Pulse Oximetry 95 Oxygen Delivery Fraction of Inspired Oxygen 06/09/24 13:18 06/09/24 13:00 06/09/24 13:26 Temperature Pulse Rate 62 62 62 Respiratory Rate 24 H 24 H Blood Pressure 98/52 L Pulse Oximetry Oxygen Delivery Fraction of Inspired Oxygen 06/09/24 13:26 06/09/24 13:26 06/09/24 13:35 Temperature Pulse Rate 60 60 60 Respiratory Rate 25 H 24 H Blood Pressure Pulse Oximetry 95 Oxygen Delivery Mechanical Ventilation Fraction of Inspired Oxygen 50 06/09/24 14:07 06/09/24 14:00 06/09/24 14:00 Temperature Pulse Rate 60 60 Respiratory Rate 24 H Blood Pressure 124/57 L Pulse Oximetry 94 94 Oxygen Delivery Mechanical Ventilation Fraction of Inspired Oxygen 45 06/09/24 14:32 06/09/24 15:01 06/09/24 15:56 Temperature Pulse Rate 62 60 60 Respiratory Rate Blood Pressure 112/54 L 120/49 L 90/39 L Pulse Oximetry Oxygen Delivery Fraction of Inspired Oxygen 06/09/24 16:19 06/09/24 15:00 06/09/24 16:00 Temperature Pulse Rate 60 60 60 Respiratory Rate 24 H Blood Pressure Pulse Oximetry 96 Oxygen Delivery Mechanical Ventilation Fraction of Inspired Oxygen 45 06/09/24 16:00 06/09/24 16:00 06/09/24 16:00 Temperature Pulse Rate 60 62 Respiratory Rate 24 H Blood Pressure 117/51 L Pulse Oximetry 96 Oxygen Delivery Mechanical Ventilation Fraction of Inspired Oxygen 45 45 06/09/24 15:00 06/09/24 17:00 06/09/24 17:00 Temperature Pulse Rate 60 61 61 Respiratory Rate 24 H 24 H 24 H Blood Pressure Pulse Oximetry Oxygen Delivery Fraction of Inspired Oxygen 06/09/24 16:00 06/09/24 18:00 06/09/24 18:00 Temperature Pulse Rate 60 62 62 Respiratory Rate 24 H 24 H Blood Pressure 117/51 L 117/45 L Pulse Oximetry 96 94 Oxygen Delivery Fraction of Inspired Oxygen 06/09/24 18:05 06/09/24 18:05 06/09/24 20:00 Temperature Pulse Rate 61 61 60 Respiratory Rate 24 H 24 H Blood Pressure 126/51 L Pulse Oximetry Oxygen Delivery Fraction of Inspired Oxygen 06/09/24 20:00 06/09/24 20:00 06/09/24 20:21 Temperature Pulse Rate 60 60 63 Respiratory Rate 24 H 24 H Blood Pressure Pulse Oximetry 95 Oxygen Delivery Mechanical Ventilation Fraction of Inspired Oxygen 45 06/09/24 20:21 06/09/24 20:35 06/09/24 20:52 Temperature Pulse Rate 63 64 60 Respiratory Rate 25 H 24 H Blood Pressure 119/46 L Pulse Oximetry Oxygen Delivery Fraction of Inspired Oxygen 06/09/24 20:55 06/09/24 20:00 06/09/24 20:00 Temperature 98.6 F Pulse Rate 61 60 61 Respiratory Rate 24 H Blood Pressure 126/51 L Pulse Oximetry 95 Oxygen Delivery Fraction of Inspired Oxygen 06/09/24 22:00 06/09/24 22:00 06/09/24 22:00 Temperature Pulse Rate 60 60 60 Respiratory Rate 24 H Blood Pressure 122/47 L 122/47 L Pulse Oximetry 95 Oxygen Delivery Fraction of Inspired Oxygen 06/09/24 22:00 06/09/24 22:00 06/09/24 22:51 Temperature Pulse Rate 60 60 61 Respiratory Rate 24 H 24 H Blood Pressure Pulse Oximetry 95 Oxygen Delivery Mechanical Ventilation Fraction of Inspired Oxygen 45 06/10/24 00:00 06/10/24 00:24 06/10/24 00:00 Temperature Pulse Rate 62 61 62 Respiratory Rate 24 H 24 H 24 H Blood Pressure Pulse Oximetry Oxygen Delivery Fraction of Inspired Oxygen 06/10/24 00:00 06/10/24 00:26 06/10/24 02:33 Temperature Pulse Rate 62 61 61 Respiratory Rate Blood Pressure 116/49 L 132/57 L Pulse Oximetry 95 Oxygen Delivery Mechanical Ventilation Fraction of Inspired Oxygen 45 06/10/24 02:33 06/10/24 02:41 06/10/24 02:00 Temperature Pulse Rate 61 60 60 Respiratory Rate 24 H 24 H 24 H Blood Pressure Pulse Oximetry Oxygen Delivery Fraction of Inspired Oxygen 06/10/24 02:00 06/10/24 02:00 06/09/24 20:00 Temperature Pulse Rate 60 60 60 Respiratory Rate 24 H 24 H Blood Pressure 115/44 L Pulse Oximetry 95 Oxygen Delivery Mechanical Ventilation Fraction of Inspired Oxygen 45 06/09/24 20:00 06/10/24 03:10 06/10/24 00:00 Temperature Pulse Rate 61 61 Respiratory Rate Blood Pressure 127/47 L Pulse Oximetry Oxygen Delivery Fraction of Inspired Oxygen 45 06/10/24 02:00 06/10/24 00:00 06/10/24 02:00 Temperature 98.4 F Pulse Rate 60 61 60 Respiratory Rate 24 H 24 H Blood Pressure 116/48 L 115/44 L Pulse Oximetry 95 93 Oxygen Delivery Fraction of Inspired Oxygen 06/10/24 00:00 06/10/24 00:00 06/10/24 05:24 Temperature Pulse Rate 61 60 Respiratory Rate 24 H Blood Pressure Pulse Oximetry 95 94 Oxygen Delivery Mechanical Ventilation Mechanical Ventilation Fraction of Inspired Oxygen 45 45 45 06/10/24 04:00 06/10/24 04:00 06/10/24 04:00 Temperature Pulse Rate 60 60 60 Respiratory Rate 24 H 24 H Blood Pressure 117/47 L Pulse Oximetry Oxygen Delivery Fraction of Inspired Oxygen 06/10/24 04:00 06/10/24 04:00 06/10/24 04:00 Temperature 98.7 F Pulse Rate 60 60 Respiratory Rate 24 H Blood Pressure 117/47 L Pulse Oximetry 95 Oxygen Delivery Fraction of Inspired Oxygen 45 06/10/24 04:00 06/10/24 07:03 06/10/24 07:03 Temperature Pulse Rate 60 60 60 Respiratory Rate 24 H 24 H Blood Pressure Pulse Oximetry 95 95 Oxygen Delivery Mechanical Ventilation Mechanical Ventilation Fraction of Inspired Oxygen 45 45 06/10/24 06:00 06/10/24 07:25 06/10/24 07:30 Temperature Pulse Rate 60 60 Respiratory Rate Blood Pressure 109/44 L 108/43 L Pulse Oximetry 96 Oxygen Delivery Mechanical Ventilation Fraction of Inspired Oxygen 45 06/10/24 07:30 06/10/24 06:00 06/10/24 06:00 Temperature Pulse Rate 60 60 60 Respiratory Rate 24 H 24 H Blood Pressure 110/45 L Pulse Oximetry 95 Oxygen Delivery Fraction of Inspired Oxygen 06/10/24 06:00 06/10/24 06:00 06/10/24 08:00 Temperature Pulse Rate 60 60 60 Respiratory Rate 24 H 24 H Blood Pressure Pulse Oximetry Oxygen Delivery Fraction of Inspired Oxygen Intake/Output Intake/Output: Intake & Output 06/07/24 06/08/24 06/09/24 06/10/24 23:59 23:59 23:59 23:59 Intake Total 937.2 1167.3 1013.9 1355.1 Output Total 4170 3254 3150 500 Balance -3232.8 -2086.7 -2136.1 855.1 Meds/Results Medications: Active Medications Generic Name Dose Route Start Last Admin Trade Name Freq PRN Reason Stop Dose Admin Acetaminophen 650 mg 06/07/24 21:53 06/07/24 22:30 Acetaminophen Elixir 325 Mg/10.15 Ml Udc PO 650 mg Q6H PRN Administration Mild Pain (1-3) or Fever Albuterol/Ipratropium 3 ml 06/05/24 11:15 06/10/24 07:03 Ipratropium 0.5 Mg/Albuterol Sulfate 2.5 Mg Ampul.Neb 3 Ml INHALATION 3 ml Q6HRT JOHN Administration Amiodarone HCl 200 mg 06/02/24 21:00 06/09/24 20:55 Amiodarone Hcl 200 Mg Tablet PO 200 mg Q12HR JOHN Administration Apixaban 5 mg 06/06/24 09:30 06/09/24 20:55 Apixaban 5 Mg Tablet PO 5 mg Q12HR JOHN Administration Dextrose 12.5 gm 06/05/24 11:46 Dextrose 50% 25 Gm/50 Ml Syringe IV PUSH PRN PRN Hypoglycemia Protocol Flecainide Acetate 100 mg 06/02/24 21:00 06/08/24 10:26 Flecainide Acetate 100 Mg Tablet PO Not Given Q12HR JOHN Gabapentin 200 mg 06/02/24 22:00 06/04/24 21:07 Gabapentin 100 Mg Capsule PO 200 mg Q8HR JOHN Administration Glucagon 1 mg 06/05/24 11:46 Glucagon For Inj 1 Mg Vial IM PRN PRN Hypoglycemia Protocol Glucose 15 gm 06/05/24 11:46 Glucose Oral Gel 15 Gm Of Glucse In 37.5 Gm Tube PO PRN PRN Hypoglycemia Protocol Hydrocortisone Sodium Succinate 100 mg 06/05/24 14:00 06/09/24 21:07 Hydrocortisone Sodium Succinate 100 Mg/2 Ml Vial IV PUSH 100 mg Q8HR JOHN Administration Norepinephrine Bitartrate 8 mg in 250 mls @ 9.375 mls/hr 06/05/24 00:35 06/10/24 08:28 Levophed 8 Mg/D5w 250 Ml IV CONT Not Given .Q24H JOHN Protocol 5 MCG/MIN Fentanyl Citrate 2,500 mcg in 250 mls @ 5 mls/hr 06/05/24 08:35 06/10/24 08:27 Fentanyl 2,500 Mcg/Ns 250 Ml IV CONT Not Given .Q50H JOHN Protocol 50 MCG/HR Midazolam HCl 100 mg in 100 mls @ 1 mls/hr 06/05/24 08:35 06/10/24 08:28 Versed 100 Mg/Ns 100 Ml IV CONT Not Given .Q72H JOHN Protocol 1 MG/HR Dextrose 1,000 mls @ 100 mls/hr 06/05/24 11:46 Dextrose 5% 1,000 Ml IVPB PRN PRN Hypoglycemia Protocol Cefepime HCl 1 gm in 50 mls @ 100 mls/hr 06/06/24 16:00 06/09/24 15:05 Maxipime 1 Gm/Ns 50 Ml IVPB 100 mls/hr Q24H JOHN Administration Albumin Human 50 mls @ 999 mls/hr 06/08/24 09:50 Albutein IVPB 06/12/24 08:39 Q10M PRN HYPOTENSION Insulin Aspart 3 - 6 units 06/05/24 12:00 06/10/24 08:29 Insulin Aspart (*Bkc) 100 Units/Ml SUB-Q Not Given Q6HR [facility] Protocol Midodrine 10 mg 06/05/24 09:00 06/09/24 16:30 Midodrine Hcl 10 Mg Tablet PO 10 mg TID JOHN Administration Multi-Ingred Cream/Lotion/Oil/Oint 1 applic 06/05/24 09:00 06/09/24 20:55 Mineral Oil/White Petrolatum Ointment EACH EYE 1 applic Q12HR JOHN Administration Pantoprazole Sodium 40 mg 06/06/24 09:00 06/09/24 20:55 Pantoprazole Sodium Iv 40 Mg Vial IV PUSH 40 mg Q12HR JOHN Administration Fluticasone/Salmeterol 2 puff 06/03/24 08:00 06/09/24 13:25 Fluticasone/Salmeterol 115-21 Mcg Inhaler 1 Puff INHALATION Not Given Q12HRT JOHN Sodium Chloride 10 ml 06/05/24 06:00 06/09/24 06:41 Central Line Flush IV PUSH 10 ml Q8HR JOHN Administration Sodium Chloride 20 ml 06/05/24 03:12 Central Line Flush IV PUSH PRN PRN after blood draws Umeclidinium [place] 1 puff 06/03/24 08:00 06/09/24 13:26 Umeclidinium [place] 62.5 Mcg Ellipta INHALATION Not Given DAILYRT [facility] Radiology Results: ITS Impressions Renal Ultrasound 06/04/24 15:06 IMPRESSION: 1. Normal kidneys. No hydronephrosis. Chest/Abdomen/Pelvis CT 06/04/24 19:12 IMPRESSION: 1. Diffuse lung disease, consistent with pulmonary edema versus pneumonia. 2. Moderate volume of ascites. Abdomen X-Ray 06/05/24 09:37 IMPRESSION: 1. Lines and tubes all in expected positions. 2. Diffuse patchy bilateral lung disease which could represent pulmonary edema and/or pneumonia. 3. Cardiomegaly. Venous Doppler Study 06/07/24 17:01 IMPRESSION: 1. No deep venous thrombosis. Chest X-Ray 06/10/24 06:22 Impression: Extensive bilateral pulmonary consolidation. Correlate for pulmonary edema, pneumonia, or ARDS. Small pleural effusions. Support tubes and pacemaker device, as above. Labs Labs: Laboratory Results - last 24 hr 06/09/24 06/09/24 06/10/24 12:22 18:02 00:49 WBC RBC Hgb Hct MCV MCH MCHC RDW Plt Count MPV Immature Gran % (Auto) Neut % (Auto) Lymph % (Auto) [place] % (Auto) Eos % (Auto) Baso % (Auto) Lymph # (Auto) [place] # (Auto) Eos # (Auto) Baso # (Auto) Abs Immat Gran (auto) Absolute Neuts (auto) Absolute Nucleated RBC Nucleated RBC % Platelet Estimate Hypochromasia Anisocytosis Schistocytes Puncture Site ABG pH ABG pCO2 ABG pO2 ABG PO2/FiO2 Ratio ABG HCO3 ABG O2 Saturation ABG O2 Content ABG Base Excess A-a Gradient Oxyhemoglobin Carboxyhemoglobin Methemoglobin Reduced Hemoglobin Total Hemoglobin O2 Delivery Device O2 Liters/Min Minute Volume Vent Rate Vent Mode FiO2 Tidal Volume PEEP Peak Inspir Pressure Pressure Support Sodium Potassium Chloride Carbon Dioxide Anion Gap BUN Creatinine Estim Creat Clear Calc Estimated GFR Glucose POC Capillary Glucose 174 H 176 H 206 H Calcium Phosphorus Magnesium Total Bilirubin AST ALT Alkaline Phosphatase Total Protein Albumin 06/10/24 06/10/24 06/10/24 04:44 05:04 05:06 WBC 13.2 H RBC 3.95 L Hgb 10.5 L Hct 33.5 L MCV 84.8 MCH 26.6 MCHC 31.3 L RDW 18.0 H Plt Count 392 H MPV 9.5 Immature Gran % (Auto) 1.0 H Neut % (Auto) 88.8 H Lymph % (Auto) 4.3 L [place] % (Auto) 5.6 Eos % (Auto) 0.1 Baso % (Auto) 0.2 Lymph # (Auto) 0.57 L [place] # (Auto) 0.7 H Eos # (Auto) 0.0 Baso # (Auto) 0.0 Abs Immat Gran (auto) 0.13 H Absolute Neuts (auto) 11.8 H Absolute Nucleated RBC 0.000 Nucleated RBC % 0.0 Platelet Estimate Adequate Hypochromasia 1+ Anisocytosis 1+ Schistocytes Rare Puncture Site Artline ABG pH 7.448 ABG pCO2 40.3 ABG pO2 76.9 L ABG PO2/FiO2 Ratio 1.71 ABG HCO3 27.3 H ABG O2 Saturation 95.9 ABG O2 Content 15.4 L ABG Base Excess 3.0 A-a Gradient 198.1 Oxyhemoglobin 94.9 Carboxyhemoglobin 0.2 Methemoglobin 0.2 Reduced Hemoglobin 4.7 Total Hemoglobin 11.5 L O2 Delivery Device Ventilator O2 Liters/Min Not Reportable Minute Volume Not Reportable Vent Rate 24 Vent Mode Cmv FiO2 45 Tidal Volume 400 PEEP 14 Peak Inspir Pressure Not Reportable Pressure Support Not Reportable Sodium 132 L Potassium 4.1 Chloride 97 L Carbon Dioxide 26 Anion Gap 9 BUN 80 H D Creatinine 4.10 H Estim Creat Clear Calc 24 Estimated GFR 11 L Glucose 166 H POC Capillary Glucose 171 H Calcium 10.4 H Phosphorus 5.1 H Magnesium 2.7 H Total Bilirubin 1.6 H AST 106 H ALT 53 H Alkaline Phosphatase 177 H Total Protein 6.0 L Albumin 3.2 L Quality VTE Prophylaxis VTE prophylaxis: pharmacologic ordered
--- NOTE | 2024-06-10 09:00 | PC.NURSE ---
Tube feeding held for Abdominal Ultrasound.
[2024-06-10] MEDS: APIXABAN 5 MG TABLET PO ×2 (09:21→20:33)
[2024-06-10] MEDS: MIDODRINE HCL 10 MG TABLET PO ×3 (09:21→18:09)
[2024-06-10] MEDS: AMIODARONE HCL 200 MG TABLET PO ×2 (09:21→20:33)
[2024-06-10] MEDS: MINERAL OIL/WHITE PETROLATUM OINTMENT 1 APPLIC EACH EYE (09:21)
[2024-06-10] MEDS: PANTOPRAZOLE SODIUM IV 40 MG VIAL IV PUSH ×2 (09:21→20:30)
--- NOTE | 2024-06-10 09:36 | P.PNNP_ITS ---
Progress Note: A&P Assessment and Plan (1) JOVI (acute kidney injury): Code(s): N17.9 - Acute kidney failure, unspecified Status: Acute Assessment and Plan: * normal creatinine ~ 1 month ago * admitted with a creatinine of 2.1mg/dl with ongoing worsening noted * etiology not clear but several possibilities: * hemodynamic instability/shock * early sepsis * infection (UTI +/- pneumonia) -- although culture negative to date * hypoxia * SLE flare (?) * other? * evaluation to date noted: * renal ultrasound negative for obstruction * urine eosinophils negative * urine electrolytes pre-renal (in spite of evidence of volume overload) * CPK low * moderate proteinuria (~ 600mg) * UA with blood and protein (and negative urine culture) * complements normal (arguing against lupus flare) * initiated on dialysis yesterday due to worsening respiratory status and volume overload * HD on 06/05, 06/06 and 06/08 * DUF on 06/07 and today * follow repeat labs and UOP for potential renal recovery (2) Acute respiratory failure: Code(s): J96.00 - Acute respiratory failure, unspecified whether with hypoxia or hypercapnia Status: Acute Assessment and Plan: * intubated on 06/05: * failed BiPAP therapy * impending respiratory failure (given hypoxia + hypercapnea) * suspect secondary to pulmonary edema, pneumonia, and possible early ARDS * remains on ventilator support * on bronchodilators and steroids * fluid removal with dialysis * follow respiratory status (3) Septic shock: Code(s): A41.9 - Sepsis, unspecified organism; R65.21 - Severe sepsis with septic shock Status: Acute Assessment and Plan: * possible related to pneumonia versus UTI * initiated on vasopressor therapy * follow culture data * 06/06 blood culture with E.coli and Stap epi * urine culture negative * on antibiotics * stress dose steroids * follow trend of hemodynamics (4) Pulmonary edema: Code(s): J81.1 - Chronic pulmonary edema Status: Acute Assessment and Plan: * contributing to #2 * secondary to JOVI/ARF but ARDS possibly playing a role * this is likely related to acute kidney injury and ARDS * fluid removal with dialysis as tolerated (5) SLE (systemic lupus erythematosus): Code(s): M32.9 - Systemic lupus erythematosus, unspecified Status: Acute Assessment and Plan: * ? SLE flare * getting stress dose steroids * seems less likely based on evidence to date * however, would not be a candidate for immunosuppression at this time (6) Anemia: Code(s): D64.9 - Anemia, unspecified Status: Acute Assessment and Plan: * related to JOVI and acute/critical illness * KIRILL with HD as needed * follow trend of H/H (7) Type 2 diabetes mellitus: Code(s): E11.9 - Type 2 diabetes mellitus without complications Status: Acute Assessment and Plan: * follow accu-cheks * glycemic control per manager mountain/hospitalist Will continue to follow. Subjective Date/time seen: 06/10/24 09:36 Interval history: Follow-up for acute kidney injury/acute renal failure. Tolerated dry ultrafiltration yesterday with another 3L fluid removal; remains intubated/sedated and on mechanical ventilation; opens eyes and able to nod to yes/no questions along with following simple commands; remains on low dose levophed at this time; urine output remains low. Exam Narrative: General: large female intubated/sedated on mechanical ventilator Heart: normal S1 and S2; no rub Lungs: coarse breath sounds; decreased at bases Abdomen: obese but soft, nontender, nondistended, positive bowel sounds Extremities: no cyanosis or clubbing; 2 - 3+ edema Skin: warm and dry Objective Data Vital Signs Vital Signs: Vital Signs Temp Pulse Resp BP Pulse Ox O2 Del Method FiO2 06/10/24 08:00 97.4 F L 60 24 H 117/47 L 94 45 06/10/24 08:00 60 06/10/24 06:00 60 24 H 06/10/24 06:00 60 24 H 06/10/24 06:00 60 24 H 110/45 L 95 06/10/24 06:00 60 06/10/24 07:30 60 24 H 06/10/24 07:30 96 Mechanical Ventilation 45 06/10/24 07:25 60 108/43 L 06/10/24 06:00 60 109/44 L 06/10/24 07:03 60 24 H 06/10/24 07:03 60 95 Mechanical Ventilation 45 06/10/24 04:00 60 24 H 95 Mechanical Ventilation 45 06/10/24 04:00 98.7 F 60 24 H 117/47 L 95 06/10/24 04:00 45 06/10/24 04:00 60 06/10/24 04:00 60 117/47 L 06/10/24 04:00 60 24 H 06/10/24 04:00 60 24 H 06/10/24 05:24 60 94 Mechanical Ventilation 45 06/10/24 00:00 45 06/10/24 00:00 61 24 H 95 Mechanical Ventilation 45 06/10/24 02:00 60 24 H 115/44 L 93 06/10/24 00:00 98.4 F 61 24 H 116/48 L 95 06/10/24 02:00 60 06/10/24 00:00 61 06/10/24 03:10 61 127/47 L 06/09/24 20:00 45 06/09/24 20:00 60 24 H 95 Mechanical Ventilation 45 06/10/24 02:00 60 115/44 L 06/10/24 02:00 60 24 H 06/10/24 02:00 60 24 H 06/10/24 02:41 60 24 H 06/10/24 02:33 61 24 H 06/10/24 02:33 61 95 Mechanical Ventilation 45 06/10/24 00:26 61 132/57 L 06/10/24 00:00 62 116/49 L 06/10/24 00:00 62 24 H 06/10/24 00:24 61 24 H 06/10/24 00:00 62 24 H 06/09/24 22:51 61 95 Mechanical Ventilation 45 06/09/24 22:00 60 24 H 06/09/24 22:00 60 24 H 06/09/24 22:00 60 122/47 L 06/09/24 22:00 60 06/09/24 22:00 60 24 H 122/47 L 95 06/09/24 20:00 61 06/09/24 20:00 98.6 F 60 24 H 126/51 L 95 06/09/24 20:55 61 06/09/24 20:52 60 119/46 L 06/09/24 20:35 64 24 H 06/09/24 20:21 63 25 H 06/09/24 20:21 63 95 Mechanical Ventilation 45 06/09/24 20:00 60 24 H 06/09/24 20:00 60 24 H 06/09/24 20:00 60 126/51 L 06/09/24 18:05 61 24 H 06/09/24 18:05 61 24 H 06/09/24 18:00 62 06/09/24 18:00 62 24 H 117/45 L 94 06/09/24 16:00 60 24 H 117/51 L 96 06/09/24 17:00 61 24 H 06/09/24 17:00 61 24 H 06/09/24 15:00 60 24 H 06/09/24 16:00 62 117/51 L 06/09/24 16:00 45 06/09/24 16:00 60 24 H 96 Mechanical Ventilation 45 06/09/24 16:00 60 06/09/24 15:00 60 24 H 06/09/24 16:19 60 96 Mechanical Ventilation 45 06/09/24 15:56 60 90/39 L 06/09/24 15:01 60 120/49 L 06/09/24 14:32 62 112/54 L 06/09/24 14:00 60 24 H 124/57 L 94 06/09/24 14:00 60 06/09/24 14:07 94 Mechanical Ventilation 45 06/09/24 13:35 60 24 H 06/09/24 13:26 60 95 Mechanical Ventilation 50 06/09/24 13:26 60 25 H 06/09/24 13:26 62 24 H 06/09/24 13:00 62 24 H 06/09/24 13:18 62 98/52 L 06/09/24 13:10 60 104/47 L 06/09/24 13:09 60 98/48 L 06/09/24 12:17 97.7 F 67 24 H 121/52 L 95 06/09/24 12:08 60 116/48 L 06/09/24 12:00 98 F 60 24 H 112/49 L 95 06/09/24 12:00 50 06/09/24 12:00 60 24 H 93 Mechanical Ventilation 50 06/09/24 12:00 60 06/09/24 11:00 60 24 H 06/09/24 11:00 60 24 H 06/09/24 12:25 60 105/42 L 06/09/24 12:00 60 112/49 L 06/09/24 11:00 60 108/43 L 06/09/24 10:51 60 93 Mechanical Ventilation 50 06/09/24 12:00 60 113/47 L 06/09/24 11:45 60 110/46 L 06/09/24 11:30 60 113/47 L 06/09/24 11:15 60 114/58 L 06/09/24 11:00 60 109/44 L 06/09/24 10:45 60 117/50 L 06/09/24 10:30 60 125/54 L 06/09/24 10:15 61 124/53 L Intake/Output Intake/Output: Intake & Output 06/07/24 06/08/24 06/09/24 06/10/24 23:59 23:59 23:59 23:59 Intake Total 937.2 1167.3 1013.9 1442.6 Output Total 4170 3254 3150 500 Balance -3232.8 -2086.7 -2136.1 942.6 Meds/Results Medications: Active Medications Generic Name Dose Route Start Last Admin Trade Name Freq PRN Reason Stop Dose Admin Acetaminophen 650 mg 06/07/24 21:53 06/07/24 22:30 Acetaminophen Elixir 325 Mg/10.15 Ml Udc PO 650 mg Q6H PRN Administration Mild Pain (1-3) or Fever Albuterol/Ipratropium 3 ml 06/05/24 11:15 06/10/24 07:03 Ipratropium 0.5 Mg/Albuterol Sulfate 2.5 Mg Ampul.Neb 3 Ml INHALATION 3 ml Q6HRT JOHN Administration Amiodarone HCl 200 mg 06/02/24 21:00 06/10/24 09:21 Amiodarone Hcl 200 Mg Tablet PO 200 mg Q12HR JOHN Administration Apixaban 5 mg 06/06/24 09:30 06/10/24 09:21 Apixaban 5 Mg Tablet PO 5 mg Q12HR JOHN Administration Dextrose 12.5 gm 06/05/24 11:46 Dextrose 50% 25 Gm/50 Ml Syringe IV PUSH PRN PRN Hypoglycemia Protocol Flecainide Acetate 100 mg 06/02/24 21:00 06/08/24 10:26 Flecainide Acetate 100 Mg Tablet PO Not Given Q12HR JOHN Gabapentin 200 mg 06/02/24 22:00 06/04/24 21:07 Gabapentin 100 Mg Capsule PO 200 mg Q8HR JOHN Administration Glucagon 1 mg 06/05/24 11:46 Glucagon For Inj 1 Mg Vial IM PRN PRN Hypoglycemia Protocol Glucose 15 gm 06/05/24 11:46 Glucose Oral Gel 15 Gm Of Glucse In 37.5 Gm Tube PO PRN PRN Hypoglycemia Protocol Hydrocortisone Sodium Succinate 100 mg 06/05/24 14:00 06/10/24 09:45 Hydrocortisone Sodium Succinate 100 Mg/2 Ml Vial IV PUSH 100 mg Q8HR JOHN Administration Norepinephrine Bitartrate 8 mg in 250 mls @ 9.375 mls/hr 06/05/24 00:35 06/10/24 09:51 Levophed 8 Mg/D5w 250 Ml IV CONT Not Given .Q24H JOHN Protocol 5 MCG/MIN Fentanyl Citrate 2,500 mcg in 250 mls @ 5 mls/hr 06/05/24 08:35 06/10/24 08:27 Fentanyl 2,500 Mcg/Ns 250 Ml IV CONT Not Given .Q50H JOHN Protocol 50 MCG/HR Midazolam HCl 100 mg in 100 mls @ 1 mls/hr 06/05/24 08:35 06/10/24 08:28 Versed 100 Mg/Ns 100 Ml IV CONT Not Given .Q72H JOHN Protocol 1 MG/HR Dextrose 1,000 mls @ 100 mls/hr 06/05/24 11:46 Dextrose 5% 1,000 Ml IVPB PRN PRN Hypoglycemia Protocol Cefepime HCl 1 gm in 50 mls @ 100 mls/hr 06/06/24 16:00 06/09/24 15:05 Maxipime 1 Gm/Ns 50 Ml IVPB 100 mls/hr Q24H JOHN Administration Albumin Human 50 mls @ 999 mls/hr 06/08/24 09:50 Albutein IVPB 06/12/24 08:39 Q10M PRN HYPOTENSION Insulin Aspart 3 - 6 units 06/05/24 12:00 06/10/24 08:29 Insulin Aspart (*Bkc) 100 Units/Ml SUB-Q Not Given Q6HR JOHN Protocol Midodrine 10 mg 06/05/24 09:00 06/10/24 09:21 Midodrine Hcl 10 Mg Tablet PO 10 mg TID JOHN Administration Multi-Ingred Cream/Lotion/Oil/Oint 1 applic 06/05/24 09:00 06/10/24 09:21 Mineral Oil/White Petrolatum Ointment EACH EYE 1 applic Q12HR JOHN Administration Pantoprazole Sodium 40 mg 10/16/24 09:00 06/10/24 09:21 Pantoprazole Sodium Iv 40 Mg Vial IV PUSH 40 mg Q12HR JOHN Administration Fluticasone/Salmeterol 2 puff 06/03/24 08:00 06/09/24 13:25 Fluticasone/Salmeterol 115-21 Mcg Inhaler 1 Puff INHALATION Not Given Q12HRT JOHN Sodium Chloride 10 ml 06/05/24 06:00 06/09/24 06:41 Central Line Flush IV PUSH 10 ml Q8HR JOHN Administration Sodium Chloride 20 ml 06/05/24 03:12 Central Line Flush IV PUSH PRN PRN after blood draws Umeclidinium [place] 1 puff 06/03/24 08:00 06/09/24 13:26 Umeclidinium [place] 62.5 Mcg Ellipta INHALATION Not Given DAILYRT [facility] Radiology Results: ITS Impressions Renal Ultrasound 06/04/24 15:06 IMPRESSION: 1. Normal kidneys. No hydronephrosis. Chest/Abdomen/Pelvis CT 06/04/24 19:12 IMPRESSION: 1. Diffuse lung disease, consistent with pulmonary edema versus pneumonia. 2. Moderate volume of ascites. Abdomen X-Ray 06/05/24 09:37 IMPRESSION: 1. Lines and tubes all in expected positions. 2. Diffuse patchy bilateral lung disease which could represent pulmonary edema and/or pneumonia. 3. Cardiomegaly. Venous Doppler Study 06/07/24 17:01 IMPRESSION: 1. No deep venous thrombosis. Chest X-Ray 06/10/24 06:22 Impression: Extensive bilateral pulmonary consolidation. Correlate for pulmonary edema, pneumonia, or ARDS. Small pleural effusions. Support tubes and pacemaker device, as above. Labs Labs: Laboratory Tests 06/10/24 05:06 06/10/24 05:06 Calcium 10.4 H Phosphorus 5.1 H Magnesium 2.7 H Total Bilirubin 1.6 H AST 106 H ALT 53 H Alkaline Phosphatase 177 H Total Protein 6.0 L Albumin 3.2 L Microbiology 06/07/24 15:51 Sputum Sputum Culture - Final Yeast Present 06/06/24 07:43 Blood Blood Culture - Final Escherichia Coli Staphylococcus epidermidis 06/08/24 07:43 Blood Blood Culture - Preliminary 06/08/24 08:00 Blood Blood Culture - Preliminary
[2024-06-10] MEDS: HYDROCORTISONE SODIUM SUCCINATE 100 MG/2 ML VIAL IV PUSH ×3 (09:45→21:00)
[2024-06-10 09:50] LABS: HAV RESULT Negative (Negative); Hepatitis B Core IgM Result Negative (Negative); Hepatitis B Surface Antigen Negative (Negative)
[2024-06-10 10:01] LABS: Hepatitis C Virus Antibody Negative (Negative)
[2024-06-10 12:14] LABS: Glucose Point of Care 188 mg/dl (65-105)
--- NOTE | 2024-06-10 12:21 | P.PNIM_ITS ---
Progress Note: A&P Assessment and Plan (1) Acute respiratory failure: Code(s): J96.00 - Acute respiratory failure, unspecified whether with hypoxia or hypercapnia Status: Acute Assessment and Plan: Patient with increasing oxygen requirements in the last 24 hours, brought to the ICU after midnight on 06/05/2024, chest x-ray showed bilateral diffuse pulmonary infiltrates/pulmonary edema. Patient was placed on BiPAP. ABG showed hypercapnic and hypoxemic respiratory failure -etiology likely related to pulmonary edema, pneumonia, ARDS -06/05: patient intubated for impending respiratory failure. Intubation was slightly challenging secondary to body habitus, small mouth, large tongue, redundant tissue in the hypopharynx and anterior vocal cords requiring cricoid pressure and use of glide scope. -patient placed on CMV mode of ventilation, peep of 14, 50% FiO2 -chest x-ray and ABGs reviewed, ventilator adjusted -continue bronchodilators -continue steroids for pneumonia - fentanyl and Versed infusion for analgosedation, will maintain RASS of -2 -daily SBT and SAT -continue dialysis for fluid removal (2) Septic shock: Code(s): A41.9 - Sepsis, unspecified organism; R65.21 - Severe sepsis with septic shock Status: Acute Assessment and Plan: Septic shock could be related to UTI, pneumonia -patient was hypotensive in the intermediate Unit and was transferred to the ICU which she received fluids, albumin -continue norepinephrine, will maintain MAP > 65 mmHg or SBP > 100 mmHg adequate end organ perfusion -off vasopressin since 06/06/2024 evening -patient is on vancomycin and cefepime -fluconazole was discontinued given her renal dysfunction -continue stress dose steroids -lactic acid has normalized (3) JOVI (acute kidney injury): Code(s): N17.9 - Acute kidney failure, unspecified Status: Acute Assessment and Plan: Patient with acute kidney injury, this morning her creatinine is 4.60 (creatinine on admission on 06/02/2024 was 2.10 and her creatinine on 04/26/2024 was 0.90) -etiology for acute kidney injury could be multifactorial, hypotension, shock, sepsis, UTI/pneumonia, hypoxia,? SLE flare, CHF, -CK levels are within normal limits -urine eosinophils were negative -urine electrolytes showed prerenal picture, patient seems to be volume overloaded -was given IV fluids and albumin overnight, will hold fluids for now -discussed with food inspector at [facility], feels that the patient is unstable to be transferred at this time for CRRT, recommended conventional dialysis. -discussed with heel cementer machine at [facility], agrees to conventional dialysis at this time -06/05: dialysis catheter was placed in the right IJ and exchange for the maida tral line -06/05: Initiate dialysis, with 3000 mL of fluid removal -06/06: Dialysis with 3000 mL in fluid removal -06/07: Dialysis with 3700 mL in fluid removal 06/08: Dialysis with 2900 mL in fluid removal Ongoing dialysis per Nephrology (4) Pulmonary edema: Code(s): J81.1 - Chronic pulmonary edema Status: Acute Assessment and Plan: Pulmonary edema likely related to acute kidney injury, ARDS, -did not respond to Bumex -continue fluid removal with dialysis (5) Type 2 diabetes mellitus: Code(s): E11.9 - Type 2 diabetes mellitus without complications Status: Acute Assessment and Plan: SSI and accucheks HbA1C is 5.7 this admission (6) Afib: Code(s): I48.91 - Unspecified atrial fibrillation Status: Acute Assessment and Plan: continue amiodarone Flecainide stopped (7) SLE (systemic lupus erythematosus): Code(s): M32.9 - Systemic lupus erythematosus, unspecified Status: Acute Assessment and Plan: ? SLE flare Continue stress dose steroids (8) Liver cirrhosis secondary to HOFFMANN: Code(s): K75.81 - Nonalcoholic steatohepatitis (HOFFMANN); K74.60 - Unspecified cirrhosis of liver Status: Acute Assessment and Plan: Mild elevation in LFTs, which are improving -continue to monitor (9) GERD (gastroesophageal reflux disease): Code(s): K21.9 - Gastro-esophageal reflux disease without esophagitis Status: Acute Assessment and Plan: Continue Protonix (10) Morbid obesity with BMI of 50.0-59.9, adult: Code(s): E66.01 - Morbid (severe) obesity due to excess calories; Z68.43 - Body mass index [BMI] 50.0-59.9, adult Status: Acute Assessment and Plan: Once extubated she will need lifestyle changes Plan DVT prophylaxis: Eliquis Stress ulcer prophylaxis: Protonix Nutrition: Patient tolerating tube feeds at 20 mL/hour, will increase to goal Code Status: Full code Subjective Date/time seen: 06/10/24 12:21 Interval history: Overnight events reviewed. Remains on Levophed. Dialysis yesterday. Review of Systems Review of Systems: ROS unobtainable: Yes unobtainable due to mental status Exam Narrative: General: Morbidly obese female currently intubated and sedated in no acute distress HEENT:? Pupils equal and reactive bilaterally, sclera is clear, ETT in place Neck:, short and thick neck, Respiratory:? Decreased and coarse breath sounds bilaterally, no wheezing, Cardiac:? S1-S2 is normal, regular rate and rhythm Abdomen:? Morbid obesity, soft, hypoactive bowel sounds Extremities:? Bilateral lower extremity pitting edema up to the thighs, decreased pedal pulses. Right calf is erythematous, warm Neuro:? Patient is intubated, sedated, opens her eyes, follows simple commands in all extremities and nods to questions Skin:? Erythema in the intertriginous region and under her pannus Psych:? Unable to assess at this time Objective Data Vital Signs Vital Signs: Vital Signs - 24 hr 06/09/24 12:25 06/09/24 13:09 06/09/24 13:10 Temperature Pulse Rate 60 60 60 Respiratory Rate Blood Pressure 105/42 L 98/48 L 104/47 L Pulse Oximetry Oxygen Delivery Fraction of Inspired Oxygen 06/09/24 13:18 06/09/24 13:00 06/09/24 13:26 Temperature Pulse Rate 62 62 62 Respiratory Rate 24 H 24 H Blood Pressure 98/52 L Pulse Oximetry Oxygen Delivery Fraction of Inspired Oxygen 06/09/24 13:26 06/09/24 13:26 06/09/24 13:35 Temperature Pulse Rate 60 60 60 Respiratory Rate 25 H 24 H Blood Pressure Pulse Oximetry 95 Oxygen Delivery Mechanical Ventilation Fraction of Inspired Oxygen 50 06/09/24 14:07 06/09/24 14:00 06/09/24 14:00 Temperature Pulse Rate 60 60 Respiratory Rate 24 H Blood Pressure 124/57 L Pulse Oximetry 94 94 Oxygen Delivery Mechanical Ventilation Fraction of Inspired Oxygen 45 06/09/24 14:32 06/09/24 15:01 06/09/24 15:56 Temperature Pulse Rate 62 60 60 Respiratory Rate Blood Pressure 112/54 L 120/49 L 90/39 L Pulse Oximetry Oxygen Delivery Fraction of Inspired Oxygen 06/09/24 16:19 06/09/24 15:00 06/09/24 16:00 Temperature Pulse Rate 60 60 60 Respiratory Rate 24 H Blood Pressure Pulse Oximetry 96 Oxygen Delivery Mechanical Ventilation Fraction of Inspired Oxygen 45 06/09/24 16:00 06/09/24 16:00 06/09/24 16:00 Temperature Pulse Rate 60 62 Respiratory Rate 24 H Blood Pressure 117/51 L Pulse Oximetry 96 Oxygen Delivery Mechanical Ventilation Fraction of Inspired Oxygen 45 45 06/09/24 15:00 06/09/24 17:00 06/09/24 17:00 Temperature Pulse Rate 60 61 61 Respiratory Rate 24 H 24 H 24 H Blood Pressure Pulse Oximetry Oxygen Delivery Fraction of Inspired Oxygen 06/09/24 16:00 06/09/24 18:00 06/09/24 18:00 Temperature Pulse Rate 60 62 62 Respiratory Rate 24 H 24 H Blood Pressure 117/51 L 117/45 L Pulse Oximetry 96 94 Oxygen Delivery Fraction of Inspired Oxygen 06/09/24 18:05 06/09/24 18:05 06/09/24 20:00 Temperature Pulse Rate 61 61 60 Respiratory Rate 24 H 24 H Blood Pressure 126/51 L Pulse Oximetry Oxygen Delivery Fraction of Inspired Oxygen 06/09/24 20:00 06/09/24 20:00 06/09/24 20:21 Temperature Pulse Rate 60 60 63 Respiratory Rate 24 H 24 H Blood Pressure Pulse Oximetry 95 Oxygen Delivery Mechanical Ventilation Fraction of Inspired Oxygen 45 06/09/24 20:21 06/09/24 20:35 06/09/24 20:52 Temperature Pulse Rate 63 64 60 Respiratory Rate 25 H 24 H Blood Pressure 119/46 L Pulse Oximetry Oxygen Delivery Fraction of Inspired Oxygen 06/09/24 20:55 06/09/24 20:00 06/09/24 20:00 Temperature 98.6 F Pulse Rate 61 60 61 Respiratory Rate 24 H Blood Pressure 126/51 L Pulse Oximetry 95 Oxygen Delivery Fraction of Inspired Oxygen 06/09/24 22:00 06/09/24 22:00 06/09/24 22:00 Temperature Pulse Rate 60 60 60 Respiratory Rate 24 H Blood Pressure 122/47 L 122/47 L Pulse Oximetry 95 Oxygen Delivery Fraction of Inspired Oxygen 06/09/24 22:00 06/09/24 22:00 06/09/24 22:51 Temperature Pulse Rate 60 60 61 Respiratory Rate 24 H 24 H Blood Pressure Pulse Oximetry 95 Oxygen Delivery Mechanical Ventilation Fraction of Inspired Oxygen 45 06/10/24 00:00 06/10/24 00:24 06/10/24 00:00 Temperature Pulse Rate 62 61 62 Respiratory Rate 24 H 24 H 24 H Blood Pressure Pulse Oximetry Oxygen Delivery Fraction of Inspired Oxygen 06/10/24 00:00 06/10/24 00:26 06/10/24 02:33 Temperature Pulse Rate 62 61 61 Respiratory Rate Blood Pressure 116/49 L 132/57 L Pulse Oximetry 95 Oxygen Delivery Mechanical Ventilation Fraction of Inspired Oxygen 45 06/10/24 02:33 06/10/24 02:41 06/10/24 02:00 Temperature Pulse Rate 61 60 60 Respiratory Rate 24 H 24 H 24 H Blood Pressure Pulse Oximetry Oxygen Delivery Fraction of Inspired Oxygen 06/10/24 02:00 06/10/24 02:00 06/09/24 20:00 Temperature Pulse Rate 60 60 60 Respiratory Rate 24 H 24 H Blood Pressure 115/44 L Pulse Oximetry 95 Oxygen Delivery Mechanical Ventilation Fraction of Inspired Oxygen 45 06/09/24 20:00 06/10/24 03:10 06/10/24 00:00 Temperature Pulse Rate 61 61 Respiratory Rate Blood Pressure 127/47 L Pulse Oximetry Oxygen Delivery Fraction of Inspired Oxygen 45 06/10/24 02:00 06/10/24 00:00 06/10/24 02:00 Temperature 98.4 F Pulse Rate 60 61 60 Respiratory Rate 24 H 24 H Blood Pressure 116/48 L 115/44 L Pulse Oximetry 95 93 Oxygen Delivery Fraction of Inspired Oxygen 06/10/24 00:00 06/10/24 00:00 06/10/24 05:24 Temperature Pulse Rate 61 60 Respiratory Rate 24 H Blood Pressure Pulse Oximetry 95 94 Oxygen Delivery Mechanical Ventilation Mechanical Ventilation Fraction of Inspired Oxygen 45 45 45 06/10/24 04:00 06/10/24 04:00 06/10/24 04:00 Temperature Pulse Rate 60 60 60 Respiratory Rate 24 H 24 H Blood Pressure 117/47 L Pulse Oximetry Oxygen Delivery Fraction of Inspired Oxygen 06/10/24 04:00 06/10/24 04:00 06/10/24 04:00 Temperature 98.7 F Pulse Rate 60 60 Respiratory Rate 24 H Blood Pressure 117/47 L Pulse Oximetry 95 Oxygen Delivery Fraction of Inspired Oxygen 45 06/10/24 04:00 06/10/24 07:03 06/10/24 07:03 Temperature Pulse Rate 60 60 60 Respiratory Rate 24 H 24 H Blood Pressure Pulse Oximetry 95 95 Oxygen Delivery Mechanical Ventilation Mechanical Ventilation Fraction of Inspired Oxygen 45 45 06/10/24 06:00 06/10/24 07:25 06/10/24 07:30 Temperature Pulse Rate 60 60 Respiratory Rate Blood Pressure 109/44 L 108/43 L Pulse Oximetry 96 Oxygen Delivery Mechanical Ventilation Fraction of Inspired Oxygen 45 06/10/24 07:30 06/10/24 06:00 06/10/24 06:00 Temperature Pulse Rate 60 60 60 Respiratory Rate 24 H 24 H Blood Pressure 110/45 L Pulse Oximetry 95 Oxygen Delivery Fraction of Inspired Oxygen 06/10/24 06:00 06/10/24 06:00 06/10/24 08:00 Temperature Pulse Rate 60 60 60 Respiratory Rate 24 H 24 H Blood Pressure Pulse Oximetry Oxygen Delivery Fraction of Inspired Oxygen 06/10/24 09:21 06/10/24 08:00 06/10/24 08:00 Temperature 97.4 F L Pulse Rate 60 60 60 Respiratory Rate 24 H Blood Pressure 117/47 L 117/47 L Pulse Oximetry 94 Oxygen Delivery Fraction of Inspired Oxygen 06/10/24 08:00 06/10/24 08:00 06/10/24 08:00 Temperature Pulse Rate 60 60 Respiratory Rate 24 H 24 H Blood Pressure Pulse Oximetry Oxygen Delivery Fraction of Inspired Oxygen 45 06/10/24 10:00 06/10/24 10:00 06/10/24 10:00 Temperature Pulse Rate 60 60 60 Respiratory Rate 24 H 24 H Blood Pressure 114/45 L Pulse Oximetry Oxygen Delivery Fraction of Inspired Oxygen 06/10/24 10:00 06/10/24 10:00 06/10/24 11:03 Temperature Pulse Rate 60 60 60 Respiratory Rate 24 H Blood Pressure 114/45 L Pulse Oximetry 98 97 Oxygen Delivery Mechanical Ventilation Fraction of Inspired Oxygen 45 06/10/24 08:00 Temperature Pulse Rate 60 Respiratory Rate 24 H Blood Pressure Pulse Oximetry 97 Oxygen Delivery Mechanical Ventilation Fraction of Inspired Oxygen 45 Intake/Output Intake/Output: Intake & Output 06/07/24 06/08/24 06/09/24 06/10/24 23:59 23:59 23:59 23:59 Intake Total 937.2 1167.3 1013.9 1473.4 Output Total 4170 3254 3150 500 Balance -3232.8 -2086.7 -2136.1 973.4 Meds/Results Medications: Active Medications Generic Name Dose Route Start Last Admin Trade Name Freq PRN Reason Stop Dose Admin Acetaminophen 650 mg 06/07/24 21:53 06/07/24 22:30 Acetaminophen Elixir 325 Mg/10.15 Ml Udc PO 650 mg Q6H PRN Administration Mild Pain (1-3) or Fever Albuterol/Ipratropium 3 ml 06/05/24 11:15 06/10/24 07:03 Ipratropium 0.5 Mg/Albuterol Sulfate 2.5 Mg Ampul.Neb 3 Ml INHALATION 3 ml Q6HRT JOHN Administration Amiodarone HCl 200 mg 06/02/24 21:00 06/10/24 09:21 Amiodarone Hcl 200 Mg Tablet PO 200 mg Q12HR JOHN Administration Apixaban 5 mg 06/06/24 09:30 06/10/24 09:21 Apixaban 5 Mg Tablet PO 5 mg Q12HR JOHN Administration Dextrose 12.5 gm 06/05/24 11:46 Dextrose 50% 25 Gm/50 Ml Syringe IV PUSH PRN PRN Hypoglycemia Protocol Flecainide Acetate 100 mg 06/02/24 21:00 06/08/24 10:26 Flecainide Acetate 100 Mg Tablet PO Not Given Q12HR JOHN Gabapentin 200 mg 06/02/24 22:00 06/04/24 21:07 Gabapentin 100 Mg Capsule PO 200 mg Q8HR JOHN Administration Glucagon 1 mg 06/05/24 11:46 Glucagon For Inj 1 Mg Vial IM PRN PRN Hypoglycemia Protocol Glucose 15 gm 06/05/24 11:46 Glucose Oral Gel 15 Gm Of Glucse In 37.5 Gm Tube PO PRN PRN Hypoglycemia Protocol Hydrocortisone Sodium Succinate 100 mg 06/05/24 14:00 06/10/24 09:45 Hydrocortisone Sodium Succinate 100 Mg/2 Ml Vial IV PUSH 100 mg Q8HR JOHN Administration Norepinephrine Bitartrate 8 mg in 250 mls @ 9.375 mls/hr 06/05/24 00:35 06/10/24 10:00 Levophed 8 Mg/D5w 250 Ml IV CONT 5 mcg/min .Q24H JOHN 9.38 mls/hr Titration Protocol 5 MCG/MIN Fentanyl Citrate 2,500 mcg in 250 mls @ 5 mls/hr 06/05/24 08:35 06/10/24 10:00 Fentanyl 2,500 Mcg/Ns 250 Ml IV CONT 50 mcg/hr .Q50H JOHN 5 mls/hr Titration Protocol 50 MCG/HR Midazolam HCl 100 mg in 100 mls @ 1 mls/hr 06/05/24 08:35 06/10/24 10:00 Versed 100 Mg/Ns 100 Ml IV CONT 1 mg/hr .Q72H JOHN 1 mls/hr Titration Protocol 1 MG/HR Dextrose 1,000 mls @ 100 mls/hr 06/05/24 11:46 Dextrose 5% 1,000 Ml IVPB PRN PRN Hypoglycemia Protocol Cefepime HCl 1 gm in 50 mls @ 100 mls/hr 06/06/24 16:00 06/09/24 15:05 Maxipime 1 Gm/Ns 50 Ml IVPB 100 mls/hr Q24H JOHN Administration Albumin Human 50 mls @ 999 mls/hr 06/08/24 09:50 Albutein IVPB 06/12/24 08:39 Q10M PRN HYPOTENSION Insulin Aspart 3 - 6 units 06/05/24 12:00 06/10/24 08:29 Insulin Aspart (*Bkc) 100 Units/Ml SUB-Q Not Given Q6HR JOHN Protocol Midodrine 10 mg 06/05/24 09:00 06/10/24 09:21 Midodrine Hcl 10 Mg Tablet PO 10 mg TID JOHN Administration Multi-Ingred Cream/Lotion/Oil/Oint 1 applic 06/05/24 09:00 06/10/24 09:21 Mineral Oil/White Petrolatum Ointment EACH EYE 1 applic Q12HR JOHN Administration Pantoprazole Sodium 40 mg 06/06/24 09:00 06/10/24 09:21 Pantoprazole Sodium Iv 40 Mg Vial IV PUSH 40 mg Q12HR JOHN Administration Fluticasone/Salmeterol 2 puff 06/03/24 08:00 06/09/24 13:25 Fluticasone/Salmeterol 115-21 Mcg Inhaler 1 Puff INHALATION Not Given Q12HRT JOHN Sodium Chloride 10 ml 06/05/24 06:00 06/10/24 10:44 Central Line Flush IV PUSH Not Given Q8HR [facility] Sodium Chloride 20 ml 06/05/24 03:12 Central Line Flush IV PUSH PRN PRN after blood draws Umeclidinium [place] 1 puff 06/03/24 08:00 06/09/24 13:26 Umeclidinium [place] 62.5 Mcg Ellipta INHALATION Not Given DAILYRT [facility] Radiology Results: ITS Impressions Renal Ultrasound 06/04/24 15:06 IMPRESSION: 1. Normal kidneys. No hydronephrosis. Chest/Abdomen/Pelvis CT 06/04/24 19:12 IMPRESSION: 1. Diffuse lung disease, consistent with pulmonary edema versus pneumonia. 2. Moderate volume of ascites. Abdomen X-Ray 06/05/24 09:37 IMPRESSION: 1. Lines and tubes all in expected positions. 2. Diffuse patchy bilateral lung disease which could represent pulmonary edema and/or pneumonia. 3. Cardiomegaly. Venous Doppler Study 06/07/24 17:01 IMPRESSION: 1. No deep venous thrombosis. Chest X-Ray 06/10/24 06:22 Impression: Extensive bilateral pulmonary consolidation. Correlate for pulmonary edema, pneumonia, or ARDS. Small pleural effusions. Support tubes and pacemaker device, as above. Labs Labs: Laboratory Results - last 24 hr 06/09/24 06/09/24 06/10/24 12:22 18:02 00:49 WBC RBC Hgb Hct MCV MCH MCHC RDW Plt Count MPV Immature Gran % (Auto) Neut % (Auto) Lymph % (Auto) [place] % (Auto) Eos % (Auto) Baso % (Auto) Lymph # (Auto) [place] # (Auto) Eos # (Auto) Baso # (Auto) Abs Immat Gran (auto) Absolute Neuts (auto) Absolute Nucleated RBC Nucleated RBC % Platelet Estimate Hypochromasia Anisocytosis Schistocytes Puncture Site ABG pH ABG pCO2 ABG pO2 ABG PO2/FiO2 Ratio ABG HCO3 ABG O2 Saturation ABG O2 Content ABG Base Excess A-a Gradient Oxyhemoglobin Carboxyhemoglobin Methemoglobin Reduced Hemoglobin Total Hemoglobin O2 Delivery Device O2 Liters/Min Minute Volume Vent Rate Vent Mode FiO2 Tidal Volume PEEP Peak Inspir Pressure Pressure Support Sodium Potassium Chloride Carbon Dioxide Anion Gap BUN Creatinine Estim Creat Clear Calc Estimated GFR Glucose POC Capillary Glucose 174 H 176 H 206 H Calcium Phosphorus Magnesium Total Bilirubin AST ALT Alkaline Phosphatase Total Protein Albumin Hepatitis A IgM Ab Hep Bs Antigen Hep B Core IgM Ab Hepatitis C Ab Screen 06/10/24 06/10/24 06/10/24 04:44 05:04 05:06 WBC 13.2 H RBC 3.95 L Hgb 10.5 L Hct 33.5 L MCV 84.8 MCH 26.6 MCHC 31.3 L RDW 18.0 H Plt Count 392 H MPV 9.5 Immature Gran % (Auto) 1.0 H Neut % (Auto) 88.8 H Lymph % (Auto) 4.3 L [place] % (Auto) 5.6 Eos % (Auto) 0.1 Baso % (Auto) 0.2 Lymph # (Auto) 0.57 L [place] # (Auto) 0.7 H Eos # (Auto) 0.0 Baso # (Auto) 0.0 Abs Immat Gran (auto) 0.13 H Absolute Neuts (auto) 11.8 H Absolute Nucleated RBC 0.000 Nucleated RBC % 0.0 Platelet Estimate Adequate Hypochromasia 1+ Anisocytosis 1+ Schistocytes Rare Puncture Site Artline ABG pH 7.448 ABG pCO2 40.3 ABG pO2 76.9 L ABG PO2/FiO2 Ratio 1.71 ABG HCO3 27.3 H ABG O2 Saturation 95.9 ABG O2 Content 15.4 L ABG Base Excess 3.0 A-a Gradient 198.1 Oxyhemoglobin 94.9 Carboxyhemoglobin 0.2 Methemoglobin 0.2 Reduced Hemoglobin 4.7 Total Hemoglobin 11.5 L O2 Delivery Device Ventilator O2 Liters/Min Not Reportable Minute Volume Not Reportable Vent Rate 24 Vent Mode Cmv FiO2 45 Tidal Volume 400 PEEP 14 Peak Inspir Pressure Not Reportable Pressure Support Not Reportable Sodium 132 L Potassium 4.1 Chloride 97 L Carbon Dioxide 26 Anion Gap 9 BUN 80 H D Creatinine 4.10 H Estim Creat Clear Calc 24 Estimated GFR 11 L Glucose 166 H POC Capillary Glucose 171 H Calcium 10.4 H Phosphorus 5.1 H Magnesium 2.7 H Total Bilirubin 1.6 H AST 106 H ALT 53 H Alkaline Phosphatase 177 H Total Protein 6.0 L Albumin 3.2 L Hepatitis A IgM Ab Negative Hep Bs Antigen Negative Hep B Core IgM Ab Negative Hepatitis C Ab Screen Negative 06/10/24 12:09 WBC RBC Hgb Hct MCV MCH MCHC RDW Plt Count MPV Immature Gran % (Auto) Neut % (Auto) Lymph % (Auto) [place] % (Auto) Eos % (Auto) Baso % (Auto) Lymph # (Auto) [place] # (Auto) Eos # (Auto) Baso # (Auto) Abs Immat Gran (auto) Absolute Neuts (auto) Absolute Nucleated RBC Nucleated RBC % Platelet Estimate Hypochromasia Anisocytosis Schistocytes Puncture Site ABG pH ABG pCO2 ABG pO2 ABG PO2/FiO2 Ratio ABG HCO3 ABG O2 Saturation ABG O2 Content ABG Base Excess A-a Gradient Oxyhemoglobin Carboxyhemoglobin Methemoglobin Reduced Hemoglobin Total Hemoglobin O2 Delivery Device O2 Liters/Min Minute Volume Vent Rate Vent Mode FiO2 Tidal Volume PEEP Peak Inspir Pressure Pressure Support Sodium Potassium Chloride Carbon Dioxide Anion Gap BUN Creatinine Estim Creat Clear Calc Estimated GFR Glucose POC Capillary Glucose 188 H Calcium Phosphorus Magnesium Total Bilirubin AST ALT Alkaline Phosphatase Total Protein Albumin Hepatitis A IgM Ab Hep Bs Antigen Hep B Core IgM Ab Hepatitis C Ab Screen
--- NOTE | 2024-06-10 12:57 | PC.NURSE ---
Updated patient,s HCPOA/sister, Jose Raul, on patient condition and plan of care.
[2024-06-10] MEDS: FENTANYL 2,500MCG/NS250ML(*CRX 2,500 MCG/250 ML BAG IV CONT (13:17)
[2024-06-10] MEDS: CEFEPIME 1 GM/NS 50 ML 1 GM/50 ML BAG IVPB (15:13)
[2024-06-10 18:16] LABS: Glucose Point of Care 183 mg/dl (65-105)
[2024-06-10] MEDS: NOREPINEPHRINE 8 MG/D5W 250 ML 8 MG/250 ML BAG 3.75 MG IV CONT (20:21)
[2024-06-11] VITALS (74 sets, daily range): BP systolic 77–142; BP diastolic 29–94; PULSE 44–97; RESP 19–25; TEMP 36.1–37.2; O2SAT 91–97
[2024-06-11 00:04] LABS: Glucose Point of Care 173 mg/dl (65-105)
[2024-06-11] MEDS: IPRATROPIUM 0.5 MG/ALBUTEROL SULFATE 2.5 MG AMPUL.NEB 3 ML INHALATION ×4 (02:05→20:40)
[2024-06-11] MEDS: CENTRAL LINE FLUSH 10 ML IV PUSH ×3 (05:00→21:04)
[2024-06-11] MEDS: HYDROCORTISONE SODIUM SUCCINATE 100 MG/2 ML VIAL IV PUSH (05:00)
[2024-06-11 05:10] LABS: Basophils Percent Auto 0.2 % (0.2-1.2); Hematocrit 33.6 % (37.0-47.0); Hemoglobin 10.9 g/dL (12.0-15.0); Immature Granulocyte Absolute 0.15 K/mm3 (0.00-0.031); Immature Granulocyte Percent A 0.9 % (0-0.5); Lymphocytes Absolute Auto 0.53 K/mm3 (0.9-3.2); Lymphocytes Percent Auto 3.1 % (18.3-44.2); Mean Corpuscular HGB Conc 32.4 g/dl (32-36); Mean Corpuscular Hemoglobin 27.6 pg (26-34); Mean Corpuscular Volume 85.1 fl (80-100); Mean Platelet Volume 9.8 fl (7.4-10.4); Monocytes Percent Auto 5.6 % (2.6-8.5); Neutrophils Absolute Auto 15.6 K/mm3 (1.3-6.7); Neutrophils Percent Auto 90.2 % (45.5-73.1); Platelet Count Result 449 k/mm3 (150-375); Red Blood Count 3.95 M/mm3 (4.2-5.4); Red Cell Distribution Width 18.1 % (11.5-14.5); White Blood Count 17.3 K/mm3 (4.5-10.0)
[2024-06-11 05:18] LABS: Magnesium 2.8 mg/dL (1.6-2.3); Phosphorus 5.4 mg/dL (2.5-4.5)
[2024-06-11 05:27] LABS: Fractional Inspired Oxygen 45 %
[2024-06-11 05:30] LABS: Platelet Clumps Present; Platelet Estimate Increased (Adequate)
[2024-06-11 05:31] LABS: Alanine Aminotransferase 64 U/L (6-35); Albumin Level 3.4 g/dL (3.5-5.1); Alkaline Phosphatase 186 U/L (38-126); Anion Gap 11 mmol/L (4-12); Anisocytosis 1+; Aspartate Amino Transferase 117 U/L (14-36); Bilirubin,Total 1.7 mg/dL (0.2-1.3); Blood Urea Nitrogen 95 mg/dL (7-17); Calcium 10.5 mg/dL (8.4-10.2); Carbon Dioxide 25 mmol/L (22-30); Chloride 96 mmol/L (98-107); Estimated CRCL calculation 25 ml/min; Estimated Glomerular Filt Rate 12; Glucose 196 mg/dL (65-110); Hypochromasia 1+; Sodium 132 mmol/L (137-145); Target Cells 1+
[2024-06-11 05:31] LABS: Device VENTILATOR; Modified Allen's Test Pass; Site Drawn ARTLINE
[2024-06-11 05:32] LABS: Arterial Blood Gas PEEP 14 cmH2O; Arterial Blood Gas Tidal Volume 400 ml; Arterial Blood Gas Vent Mode CMV; Arterial Blood Gas Ventilator rate 24 /MIN
[2024-06-11 05:32] LABS: Schistocytes None Seen
[2024-06-11 06:01] LABS: Alveolar/Arterial O2 Gradient 194.4 mmHg; Base Excess ABG 1.2 mEq/l (+/-2.0); HCO3 ABG 26.3 mEq/l (22.0-26.0); Oxygen Saturation ABG 95.3 % (95.0-100.0); PCO2 ABG 43.6 mmHg (35.0-45.0); PO2 ABG 76.9 mmHg (80.0-100.0); pH ABG 7.398 (7.350-7.450)
[2024-06-11 06:02] LABS: Carboxyhemoglobin 0.2 % THb (0-2.0); Methemoglobin ABG 0.2 %THb (0-1.5); Oxyhemoglobin 94.5 % THb (90.0-100.0); PO2 FiO2 Ratio Arterial Blood 1.71 %; Reduced Hemoglobin 5.1 %THb (0-5.0)
[2024-06-11] MEDS: PANTOPRAZOLE SODIUM IV 40 MG VIAL IV PUSH ×2 (07:57→21:03)
[2024-06-11] MEDS: AMIODARONE HCL 200 MG TABLET PO ×2 (07:57→21:03)
[2024-06-11] MEDS: ONDANSETRON INJ 4 MG/2 ML VIAL IV PUSH ×2 (07:57→13:40)
[2024-06-11] MEDS: MIDODRINE HCL 10 MG TABLET PO ×3 (07:58→17:03)
[2024-06-11] MEDS: APIXABAN 5 MG TABLET PO ×2 (07:58→21:03)
[2024-06-11] MEDS: MINERAL OIL/WHITE PETROLATUM OINTMENT 1 APPLIC EACH EYE ×2 (07:58→21:03)
--- NOTE | 2024-06-11 08:20 | WPDINTPN ---
Progress Note: A&P Assessment and Plan (1) Acute respiratory failure: Code(s): J96.00 - Acute respiratory failure, unspecified whether with hypoxia or hypercapnia Status: Acute Assessment and Plan: Patient with increasing oxygen requirements in the last 24 hours, brought to the ICU after midnight on 06/05/2024, chest x-ray showed bilateral diffuse pulmonary infiltrates/pulmonary edema. Patient was placed on BiPAP. ABG showed hypercapnic and hypoxemic respiratory failure -etiology likely related to pulmonary edema, pneumonia, ARDS -06/05: patient intubated for impending respiratory failure. Intubation was slightly challenging secondary to body habitus, small mouth, large tongue, redundant tissue in the hypopharynx and anterior vocal cords requiring cricoid pressure and use of glide scope. -patient placed on CMV mode of ventilation, peep of 14, 45% FiO2, -chest x-ray and ABGs reviewed, ventilator adjusted -continue bronchodilators - fentanyl and Versed infusion for analgosedation, will maintain RASS of -2 -daily SBT and SAT -continue dialysis for fluid removal (2) Septic shock: Code(s): A41.9 - Sepsis, unspecified organism; R65.21 - Severe sepsis with septic shock Status: Acute Assessment and Plan: Septic shock could be related to UTI, pneumonia -patient was hypotensive in the intermediate Unit and was transferred to the ICU which she received fluids, albumin -continue norepinephrine, will maintain MAP > 65 mmHg or SBP > 100 mmHg adequate end organ perfusion -off vasopressin since 06/06/2024 evening -off vancomycin -continue cefepime for a total of 7 days -fluconazole was discontinued given her renal dysfunction -wean stress dose steroids -continue midodrine 06/05/2024: Echocardiogram Summary 1. Left ventricular chamber dimension is normal. 2. Left ventricular systolic function is normal, estimated at 65-70%. 3. The left ventricular diastolic function is grade I diastolic dysfunction. 4. Right ventricular chamber dimension is moderately enlarged. 5. Right ventricular systolic function is normal. 6. Left atrial chamber dimension is moderately enlarged. 7. Right atrial chamber dimension is moderately enlarged. 8. There is mild to moderate tricuspid valve regurgitation. (3) JOVI (acute kidney injury): Code(s): N17.9 - Acute kidney failure, unspecified Status: Acute Assessment and Plan: Patient with acute kidney injury, this morning her creatinine is 4.60 (creatinine on admission on 06/02/2024 was 2.10 and her creatinine on 04/26/2024 was 0.90) -etiology for acute kidney injury could be multifactorial, hypotension, shock, sepsis, UTI/pneumonia, hypoxia,? SLE flare, CHF, -CK levels are within normal limits -urine eosinophils were negative -urine electrolytes showed prerenal picture, patient seems to be volume overloaded -was given IV fluids and albumin overnight, will hold fluids for now -discussed with edi developer at [facility], feels that the patient is unstable to be transferred at this time for CRRT, recommended conventional dialysis. -discussed with online publisher at [facility], agrees to conventional dialysis at this time -06/05: dialysis catheter was placed in the right IJ and exchange for the central line -06/05: Initiated dialysis, with 3000 mL of fluid removal -06/06: Dialysis with 3000 mL in fluid removal -06/07: Dialysis with 3700 mL in fluid removal -06/08: Dialysis with 2900 mL in fluid removal -06/09: Dialysis with 3000 mL in fluid removal -06/10: No dialysis -06/11: will have Nephrology dialyze the patient today (4) Pulmonary edema: Code(s): J81.1 - Chronic pulmonary edema Status: Acute Assessment and Plan: Pulmonary edema likely related to acute kidney injury, ARDS, -did not respond to Bumex -continue fluid removal with dialysis (5) Type 2 diabetes mellitus: Code(s): E11.9 - Type 2 diabetes mellitus without complications Status: Acute Assessment and Plan: SSI and accucheks HbA1C is 5.7 this admission (6) Afib: Code(s): I48.91 - Unspecified atrial fibrillation Status: Acute Assessment and Plan: continue amiodarone - flecainide was stopped (7) SLE (systemic lupus erythematosus): Code(s): M32.9 - Systemic lupus erythematosus, unspecified Status: Acute Assessment and Plan: ? SLE flare Weaning steroids (8) Liver cirrhosis secondary to HOFFMANN: Code(s): K75.81 - Nonalcoholic steatohepatitis (HOFFMANN); K74.60 - Unspecified cirrhosis of liver Status: Acute Assessment and Plan: Continues to have mild elevation in LFTs and bilirubin which is stable 06/10/2024: RUQ ultrasound: Fat infiltration. Enlarged left lobe of the liver. Slightly thickened wall of the gallbladder. Trace of ascites. Otherwise, normal Limited ultrasound of the abdomen. -06/10/2024: Hepatitis panel is negative -continue to monitor (9) GERD (gastroesophageal reflux disease): Code(s): K21.9 - Gastro-esophageal reflux disease without esophagitis Status: Acute Assessment and Plan: Continue Protonix (10) Morbid obesity with BMI of 50.0-59.9, adult: Code(s): E66.01 - Morbid (severe) obesity due to excess calories; Z68.43 - Body mass index [BMI] 50.0-59.9, adult Status: Acute Assessment and Plan: Once extubated she will need lifestyle changes Plan DVT prophylaxis: Eliquis Stress ulcer prophylaxis: Protonix Nutrition: Tube feeds at goal and tolerating Code Status: Full code Critical Care Time Spent: 33 minutes 06/05: Discussed with JAMES Blunt, patient's sister in the conference room updated with patient's condition and plan of care. The POA is aware that patient is significantly ill and at condition is guarded. I also explained to her that we initiated transfer to [facility] but given her increased ventilatory support, the edi developer at [facility] recommended starting conventional dialysis over [facility]. I answered all her questions. Discussed with patient's sister JAMES Blunt, on the phone and updated with patient's condition and plan of care. I answered all questions Due to a high probability of clinically significant, life threatening deterioration, the patient required my highest level of preparedness to intervene emergently and I personally spent this critical care time directly and personally managing the patient. This critical care time included obtaining a history; examining the patient; pulse oximetry; ordering and review of studies; arranging urgent treatment with development of a management plan; evaluation of patient's response to treatment; frequent reassessment; and discussions with other providers. It was exclusive of separately billable procedures and treating other patients and teaching time. Please see Assessment and Plan section and the rest of the note for further information on patient assessment and treatment This dictation may have been done utilizing a voice recognition system. Attempts have been made to correct errors. However, there may be uncorrected grammatical, spelling, and recognitions errors present. Subjective Date/time seen: 06/11/24 08:20 Interval history: Reason for consult: Acute respiratory failure, septic shock, acute kidney injury, pulmonary edema 06/05: Intubated 06/11/2024: Patient seen and examined the ICU, remains intubated on CMV mode of ventilation, peep of 14, 40 5% FiO2. Sedated with fentanyl and Versed infusion, opens her eyes, follows simple commands in all extremities and nods to questions. Urine output limit is low, afebrile. Remains on Levophed at 5 mcg/min Review of Systems Review of Systems: ROS unobtainable: Yes unobtainable due to endotracheal tube, unobtainable due to medical condition and unobtainable due to mental status Exam Narrative: General: Morbidly obese female currently intubated and sedated in no acute distress HEENT:? Pupils equal and reactive bilaterally, sclera is clear, ETT in place Neck:, short and thick neck, Respiratory:? Decreased and coarse breath sounds bilaterally, no wheezing, Cardiac:? S1-S2 is normal, regular rate and rhythm Abdomen:? Morbid obesity, soft, hypoactive bowel sounds Extremities:? Bilateral lower extremity pitting edema improving, wrinkling of skin on the feet are noted, palpable pedal pulses. Right calf erythema has improved, Neuro:? Patient is intubated, sedated, opens her eyes, follows simple commands in all extremities and nods to questions Skin:? Erythema in the intertriginous region and under her pannus, skin is dry and warm Psych:? Unable to assess at this time Objective Data Vital Signs Vital Signs: Vital Signs - 24 hr 06/10/24 09:21 06/10/24 10:06/10/24 10:00 Temperature Pulse Rate 60 60 60 Respiratory Rate 24 H Blood Pressure 114/45 L Pulse Oximetry Oxygen Delivery Fraction of Inspired Oxygen 06/10/24 10:00 06/10/24 10:00 06/10/24 10:00 Temperature Pulse Rate 60 60 60 Respiratory Rate 24 H 24 H Blood Pressure 114/45 L Pulse Oximetry 98 Oxygen Delivery Fraction of Inspired Oxygen 06/10/24 11:03 06/10/24 12:00 06/10/24 12:00 Temperature 97.7 F Pulse Rate 60 60 60 Respiratory Rate 24 H Blood Pressure 129/55 L 129/55 L Pulse Oximetry 97 97 Oxygen Delivery Mechanical Ventilation Fraction of Inspired Oxygen 45 06/10/24 12:00 06/10/24 12:00 06/10/24 12:00 Temperature Pulse Rate 60 60 Respiratory Rate 24 H 24 H Blood Pressure Pulse Oximetry Oxygen Delivery Fraction of Inspired Oxygen 45 06/10/24 12:00 06/10/24 12:00 06/10/24 13:11 Temperature Pulse Rate 60 60 60 Respiratory Rate 24 H Blood Pressure Pulse Oximetry 99 100 Oxygen Delivery Mechanical Ventilation Mechanical Ventilation Fraction of Inspired Oxygen 45 45 06/10/24 13:11 06/10/24 13:17 06/10/24 13:17 Temperature Pulse Rate 60 60 60 Respiratory Rate 24 H 24 H 24 H Blood Pressure Pulse Oximetry Oxygen Delivery Fraction of Inspired Oxygen 06/10/24 13:34 06/10/24 14:00 06/10/24 14:00 Temperature Pulse Rate 60 60 60 Respiratory Rate 24 H 24 H Blood Pressure 119/47 L Pulse Oximetry 100 Oxygen Delivery Fraction of Inspired Oxygen 06/10/24 14:00 06/10/24 14:00 06/10/24 14:00 Temperature Pulse Rate 60 60 60 Respiratory Rate 24 H 24 H Blood Pressure 119/47 L Pulse Oximetry Oxygen Delivery Fraction of Inspired Oxygen 06/10/24 16:00 06/10/24 16:00 06/10/24 16:00 Temperature 97.7 F Pulse Rate 61 61 Respiratory Rate 24 H 24 H Blood Pressure 123/55 L Pulse Oximetry 97 Oxygen Delivery Fraction of Inspired Oxygen 45 06/10/24 16:00 06/10/24 16:30 06/10/24 16:00 Temperature Pulse Rate 61 61 61 Respiratory Rate 24 H Blood Pressure 123/55 L 118/48 L Pulse Oximetry 98 Oxygen Delivery Mechanical Ventilation Fraction of Inspired Oxygen 45 06/10/24 18:00 06/10/24 18:00 06/10/24 16:00 Temperature Pulse Rate 60 60 60 Respiratory Rate 24 H 24 H Blood Pressure 121/53 L Pulse Oximetry Oxygen Delivery Fraction of Inspired Oxygen 06/10/24 18:00 06/10/24 16:00 06/10/24 18:00 Temperature Pulse Rate 61 61 61 Respiratory Rate 24 H Blood Pressure Pulse Oximetry Oxygen Delivery Fraction of Inspired Oxygen 06/10/24 18:00 06/10/24 16:46 06/10/24 19:12 Temperature Pulse Rate 61 60 60 Respiratory Rate 24 H Blood Pressure 121/53 L Pulse Oximetry 98 97 96 Oxygen Delivery Mechanical Ventilation Mechanical Ventilation Fraction of Inspired Oxygen 45 45 06/10/24 19:12 06/10/24 20:21 06/10/24 20:33 Temperature Pulse Rate 60 60 60 Respiratory Rate 24 H Blood Pressure 140/62 Pulse Oximetry Oxygen Delivery Fraction of Inspired Oxygen 06/10/24 20:00 06/10/24 20:00 06/10/24 20:00 Temperature 97.0 F L Pulse Rate 60 60 Respiratory Rate 24 H 24 H Blood Pressure 121/50 L Pulse Oximetry 94 94 Oxygen Delivery Mechanical Ventilation Fraction of Inspired Oxygen 45 45 06/10/24 20:36 06/10/24 20:00 06/10/24 20:00 Temperature Pulse Rate 60 60 60 Respiratory Rate 24 H 24 H Blood Pressure 111/44 L Pulse Oximetry Oxygen Delivery Fraction of Inspired Oxygen 06/10/24 21:00 06/10/24 20:00 06/10/24 23:36 Temperature Pulse Rate 61 64 61 Respiratory Rate 24 H Blood Pressure 120/53 L Pulse Oximetry 96 95 Oxygen Delivery Mechanical Ventilation Fraction of Inspired Oxygen 45 06/10/24 22:00 06/10/24 22:00 06/10/24 21:36 Temperature Pulse Rate 60 60 60 Respiratory Rate 24 H 24 H Blood Pressure 115/49 L 114/44 L Pulse Oximetry 95 Oxygen Delivery Fraction of Inspired Oxygen 06/10/24 22:00 06/10/24 23:00 06/10/24 22:00 Temperature Pulse Rate 60 60 60 Respiratory Rate Blood Pressure 115/49 L 122/52 L Pulse Oximetry Oxygen Delivery Fraction of Inspired Oxygen 06/10/24 23:52 06/10/24 23:54 06/10/24 22:00 Temperature Pulse Rate 60 60 Respiratory Rate 24 H Blood Pressure 101/39 L Pulse Oximetry Oxygen Delivery Fraction of Inspired Oxygen 45 06/11/24 00:00 06/11/24 00:00 06/11/24 00:09 Temperature Pulse Rate 60 60 60 Respiratory Rate 24 H 24 H Blood Pressure 114/45 L Pulse Oximetry Oxygen Delivery Fraction of Inspired Oxygen 06/11/24 00:00 06/11/24 00:00 06/11/24 00:00 Temperature 97.0 F L Pulse Rate 60 60 60 Respiratory Rate 24 H 24 H Blood Pressure 103/49 L Pulse Oximetry 93 93 Oxygen Delivery Mechanical Ventilation Fraction of Inspired Oxygen 45 06/11/24 01:00 06/11/24 01:15 06/10/24 23:00 Temperature Pulse Rate 60 60 60 Respiratory Rate 24 H Blood Pressure 110/40 L 128/51 L 122/52 L Pulse Oximetry 96 Oxygen Delivery Fraction of Inspired Oxygen 06/11/24 02:05 06/11/24 02:11 06/11/24 02:00 Temperature Pulse Rate 60 60 60 Respiratory Rate 24 H Blood Pressure Pulse Oximetry 94 Oxygen Delivery Mechanical Ventilation Fraction of Inspired Oxygen 45 06/11/24 02:00 06/11/24 02:00 06/11/24 02:00 Temperature Pulse Rate 60 60 60 Respiratory Rate 24 H 24 H 24 H Blood Pressure 117/44 L Pulse Oximetry 92 Oxygen Delivery Fraction of Inspired Oxygen 06/11/24 02:00 06/11/24 03:00 06/11/24 01:00 Temperature Pulse Rate 60 60 60 Respiratory Rate 24 H Blood Pressure 117/44 L 120/45 L 108/37 L Pulse Oximetry 92 Oxygen Delivery Fraction of Inspired Oxygen 06/11/24 03:00 06/10/24 19:18 06/11/24 02:17 Temperature Pulse Rate 60 61 60 Respiratory Rate 24 H 24 H 24 H Blood Pressure 117/44 L Pulse Oximetry 91 Oxygen Delivery Fraction of Inspired Oxygen 06/11/24 04:00 06/11/24 04:00 06/11/24 04:00 Temperature 97.0 F L Pulse Rate 61 62 Respiratory Rate 24 H Blood Pressure 118/43 L Pulse Oximetry 92 Oxygen Delivery Fraction of Inspired Oxygen 45 06/11/24 04:00 06/11/24 04:00 06/11/24 04:00 Temperature Pulse Rate 61 61 61 Respiratory Rate 24 H 24 H 24 H Blood Pressure Pulse Oximetry 93 Oxygen Delivery Mechanical Ventilation Fraction of Inspired Oxygen 45 06/11/24 04:00 06/11/24 05:00 06/11/24 05:24 Temperature Pulse Rate 61 72 72 Respiratory Rate Blood Pressure 118/42 L 110/45 L Pulse Oximetry 94 Oxygen Delivery Mechanical Ventilation Fraction of Inspired Oxygen 45 06/11/24 06:00 06/11/24 06:00 06/11/24 06:00 Temperature Pulse Rate 71 70 71 Respiratory Rate 24 H 24 H Blood Pressure 120/46 L Pulse Oximetry 95 Oxygen Delivery Fraction of Inspired Oxygen 06/11/24 06:00 06/11/24 06:00 06/11/24 06:30 Temperature Pulse Rate 71 70 68 Respiratory Rate 24 H Blood Pressure 117/45 L 120/45 L Pulse Oximetry Oxygen Delivery Fraction of Inspired Oxygen 06/11/24 06:45 06/11/24 07:57 06/11/24 08:00 Temperature 97.6 F Pulse Rate 68 61 63 Respiratory Rate 24 H Blood Pressure 120/40 L 123/48 L Pulse Oximetry 96 Oxygen Delivery Fraction of Inspired Oxygen 06/11/24 08:00 Temperature Pulse Rate Respiratory Rate Blood Pressure Pulse Oximetry Oxygen Delivery Fraction of Inspired Oxygen 45 Intake/Output Intake/Output: Intake & Output 06/08/24 06/09/24 06/10/24 06/11/24 23:59 23:59 23:59 23:59 Intake Total 1167.3 1063.9 1873.1 733.6 Output Total 3254 3150 800 450 Balance -2086.7 -2086.1 1073.1 283.6 Meds/Results Medications: Active Medications Generic Name Dose Route Start Last Admin Trade Name Freq PRN Reason Stop Dose Admin Acetaminophen 650 mg 06/07/24 21:53 06/07/24 22:30 Acetaminophen Elixir 325 Mg/10.15 Ml Udc PO 650 mg Q6H PRN Administration Mild Pain (1-3) or Fever Albuterol/Ipratropium 3 ml 06/05/24 11:15 06/11/24 02:05 Ipratropium 0.5 Mg/Albuterol Sulfate 2.5 Mg Ampul.Neb 3 Ml INHALATION 3 ml Q6HRT JOHN Administration Amiodarone HCl 200 mg 06/02/24 21:00 06/11/24 07:57 Amiodarone Hcl 200 Mg Tablet PO 200 mg Q12HR JOHN Administration Apixaban 5 mg 06/06/24 09:30 06/11/24 07:58 Apixaban 5 Mg Tablet PO 5 mg Q12HR JOHN Administration Dextrose 12.5 gm 06/05/24 11:46 Dextrose 50% 25 Gm/50 Ml Syringe IV PUSH PRN PRN Hypoglycemia Protocol Epoetin Shayan-epbx 10,000 units 06/11/24 20:00 Epoetin Shayan-Epbx 10,000 Units/Ml Vial IV PUSH 06/11/24 20:01 ONCE ONE Flecainide Acetate 100 mg 06/02/24 21:00 06/08/24 10:26 Flecainide Acetate 100 Mg Tablet PO Not Given Q12HR JOHN Gabapentin 200 mg 06/02/24 22:00 06/04/24 21:07 Gabapentin 100 Mg Capsule PO 200 mg Q8HR JOHN Administration Glucagon 1 mg 06/05/24 11:46 Glucagon For Inj 1 Mg Vial IM PRN PRN Hypoglycemia Protocol Glucose 15 gm 06/05/24 11:46 Glucose Oral Gel 15 Gm Of Glucse In 37.5 Gm Tube PO PRN PRN Hypoglycemia Protocol Hydrocortisone Sodium Succinate 100 mg 06/12/24 06:00 Hydrocortisone Sodium Succinate 100 Mg/2 Ml Vial IV PUSH 06/13/24 06:01 DAILY@0600 JOHN Norepinephrine Bitartrate 8 mg in 250 mls @ 9.375 mls/hr 06/05/24 00:35 06/11/24 06:45 Levophed 8 Mg/D5w 250 Ml IV CONT 5 mcg/min .Q24H JOHN 9.38 mls/hr Titration Protocol 5 MCG/MIN Fentanyl Citrate 2,500 mcg in 250 mls @ 5 mls/hr 06/05/24 08:35 06/11/24 06:00 Fentanyl 2,500 Mcg/Ns 250 Ml IV CONT 50 mcg/hr .Q50H JOHN 5 mls/hr Titration Protocol 50 MCG/HR Midazolam HCl 100 mg in 100 mls @ 1 mls/hr 06/05/24 08:35 06/11/24 06:00 Versed 100 Mg/Ns 100 Ml IV CONT 1 mg/hr .Q72H JOHN 1 mls/hr Titration Protocol 1 MG/HR Dextrose 1,000 mls @ 100 mls/hr 06/05/24 11:46 Dextrose 5% 1,000 Ml IVPB PRN PRN Hypoglycemia Protocol Cefepime HCl 1 gm in 50 mls @ 100 mls/hr 06/06/24 16:00 06/10/24 15:45 Maxipime 1 Gm/Ns 50 Ml IVPB Infused Q24H [facility] Infusion Albumin Human 50 mls @ 999 mls/hr 06/08/24 09:50 Albutein IVPB 07/08/24 09:49 Q10M PRN HYPOTENSION Insulin Aspart 3 - 6 units 06/05/24 12:00 06/11/24 06:00 Insulin Aspart (*Bkc) 100 Units/Ml SUB-Q Not Given Q6HR [facility] Protocol Midodrine 10 mg 06/05/24 09:00 06/11/24 07:58 Midodrine Hcl 10 Mg Tablet PO 10 mg TID JOHN Administration Multi-Ingred Cream/Lotion/Oil/Oint 1 applic 06/05/24 09:00 06/11/24 07:58 Mineral Oil/White Petrolatum Ointment EACH EYE 1 applic Q12HR JOHN Administration Ondansetron HCl 4 mg 06/11/24 07:47 06/11/24 07:57 Ondansetron Inj 4 Mg/2 Ml Vial IV PUSH 4 mg Q6H PRN Administration Nausea And Vomiting Pantoprazole Sodium 40 mg 06/06/24 09:00 06/11/24 07:57 Pantoprazole Sodium Iv 40 Mg Vial IV PUSH 40 mg Q12HR JOHN Administration Fluticasone/Salmeterol 2 puff 06/03/24 08:00 06/09/24 13:25 Fluticasone/Salmeterol 115-21 Mcg Inhaler 1 Puff INHALATION Not Given Q12HRT JOHN Sodium Chloride 10 ml 06/05/24 06:00 06/11/24 05:00 Central Line Flush IV PUSH 10 ml Q8HR JOHN Administration Sodium Chloride 20 ml 06/05/24 03:12 Central Line Flush IV PUSH PRN PRN after blood draws Umeclidinium [employer] 1 puff 06/03/24 08:00 06/09/24 13:26 Umeclidinium [employer] 62.5 Mcg Ellipta INHALATION Not Given DAILYRT [facility] Radiology Results: ITS Impressions Renal Ultrasound 06/04/24 15:06 IMPRESSION: 1. Normal kidneys. No hydronephrosis. Chest/Abdomen/Pelvis CT 06/04/24 19:12 IMPRESSION: 1. Diffuse lung disease, consistent with pulmonary edema versus pneumonia. 2. Moderate volume of ascites. Venous Doppler Study 06/07/24 17:01 IMPRESSION: 1. No deep venous thrombosis. Abdomen Ultrasound 06/10/24 14:47 IMPRESSION: Fat infiltration. Enlarged left lobe of the liver. Slightly thickened wall of the gallbladder. Trace of ascites. Otherwise, normal Limited ultrasound of the abdomen. Chest X-Ray 06/11/24 06:28 Impression: Extensive bibasilar pulmonary consolidation. Correlate for pulmonary edema/atelectasis, pneumonia, or ARDS. Support tubes, as above. Abdomen X-Ray 06/11/24 07:58 Impression: Limited exam. NG tube is in satisfactory position. Labs Labs: Laboratory Results - last 24 hr 06/10/24 06/10/24 06/10/24 04:44 12:09 18:08 WBC RBC Hgb Hct MCV MCH MCHC RDW Plt Count MPV Immature Gran % (Auto) Neut % (Auto) Lymph % (Auto) [place] % (Auto) Eos % (Auto) Baso % (Auto) Lymph # (Auto) [place] # (Auto) Eos # (Auto) Baso # (Auto) Abs Immat Gran (auto) Absolute Neuts (auto) Absolute Nucleated RBC Nucleated RBC % Platelet Estimate Clumped Platelets Hypochromasia Anisocytosis Target Cells Schistocytes Puncture Site ABG pH ABG pCO2 ABG pO2 ABG PO2/FiO2 Ratio ABG HCO3 ABG O2 Saturation ABG O2 Content ABG Base Excess A-a Gradient Oxyhemoglobin Carboxyhemoglobin Methemoglobin Reduced Hemoglobin Total Hemoglobin O2 Delivery Device O2 Liters/Min Minute Volume Vent Rate Vent Mode FiO2 Tidal Volume PEEP Peak Inspir Pressure Pressure Support Sodium Potassium Chloride Carbon Dioxide Anion Gap BUN Creatinine Estim Creat Clear Calc Estimated GFR Glucose POC Capillary Glucose 188 H 183 H Calcium Phosphorus Magnesium Total Bilirubin AST ALT Alkaline Phosphatase Total Protein Albumin Hepatitis A IgM Ab Negative Hep Bs Antigen Negative Hep B Core IgM Ab Negative Hepatitis C Ab Screen Negative 06/11/24 06/11/24 06/11/24 00:01 05:00 05:19 WBC 17.3 H RBC 3.95 L Hgb 10.9 L Hct 33.6 L MCV 85.1 MCH 27.6 MCHC 32.4 RDW 18.1 H Plt Count 449 H MPV 9.8 Immature Gran % (Auto) 0.9 H Neut % (Auto) 90.2 H Lymph % (Auto) 3.1 L [place] % (Auto) 5.6 Eos % (Auto) 0.0 Baso % (Auto) 0.2 Lymph # (Auto) 0.53 L [place] # (Auto) 1.0 H Eos # (Auto) 0.0 Baso # (Auto) 0.0 Abs Immat Gran (auto) 0.15 H Absolute Neuts (auto) 15.6 H Absolute Nucleated RBC 0.000 Nucleated RBC % 0.0 Platelet Estimate Increased Clumped Platelets Present Hypochromasia 1+ Anisocytosis 1+ Target Cells 1+ Schistocytes None seen Puncture Site Artline ABG pH 7.398 ABG pCO2 43.6 ABG pO2 76.9 L ABG PO2/FiO2 Ratio 1.71 ABG HCO3 26.3 H ABG O2 Saturation 95.3 ABG O2 Content 16.0 ABG Base Excess 1.2 A-a Gradient 194.4 Oxyhemoglobin 94.5 Carboxyhemoglobin 0.2 Methemoglobin 0.2 Reduced Hemoglobin 5.1 H Total Hemoglobin 12.0 O2 Delivery Device Ventilator O2 Liters/Min Not Reportable Minute Volume Not Reportable Vent Rate 24 Vent Mode Cmv FiO2 45 Tidal Volume 400 PEEP 14 Peak Inspir Pressure Not Reportable Pressure Support Not Reportable Sodium 132 L Potassium 4.0 Chloride 96 L Carbon Dioxide 25 Anion Gap 11 BUN 95 H D Creatinine 3.90 H Estim Creat Clear Calc 25 Estimated GFR 12 L Glucose 196 H POC Capillary Glucose 173 H Calcium 10.5 H Phosphorus 5.4 H Magnesium 2.8 H Total Bilirubin 1.7 H AST 117 H ALT 64 H Alkaline Phosphatase 186 H Total Protein 7.0 Albumin 3.4 L Hepatitis A IgM Ab Hep Bs Antigen Hep B Core IgM Ab Hepatitis C Ab Screen Quality VTE Prophylaxis VTE prophylaxis: pharmacologic ordered
[2024-06-11] MEDS: EPOETIN ALFA-EPBX 10,000 UNITS/ML VIAL 10000 UNITS IV PUSH (08:53)
[2024-06-11] MEDS: SODIUM CHLORIDE 0.9% IV 1,000 ML 999 ML IV CONT (08:53)
--- NOTE | 2024-06-11 09:05 | PC.NURSE ---
Updated patient's son, Alfie, via telephone on patient condition and plan of care.
--- NOTE | 2024-06-11 09:36 | P.PNNP_ITS ---
Progress Note: A&P Assessment and Plan (1) JOVI (acute kidney injury): Code(s): N17.9 - Acute kidney failure, unspecified Status: Acute Assessment and Plan: * normal creatinine ~ 1 month ago * admitted with a creatinine of 2.1mg/dl with ongoing worsening noted * etiology not clear but several possibilities: * hemodynamic instability/shock * early sepsis * infection (UTI +/- pneumonia) -- although culture negative to date * hypoxia * SLE flare (?) * other? * evaluation to date noted: * renal ultrasound negative for obstruction * urine eosinophils negative * urine electrolytes pre-renal (in spite of evidence of volume overload) * CPK low * moderate proteinuria (~ 600mg) * UA with blood and protein (and negative urine culture) * complements normal (arguing against lupus flare) * initiated on dialysis yesterday due to worsening respiratory status and volume overload * HD on 06/05, 06/06 and 06/08 * DUF on 06/07 and 06/09 * HD today * follow repeat labs and UOP for potential renal recovery (2) Acute respiratory failure: Code(s): J96.00 - Acute respiratory failure, unspecified whether with hypoxia or hypercapnia Status: Acute Assessment and Plan: * intubated on 06/05: * failed BiPAP therapy * impending respiratory failure (given hypoxia + hypercapnea) * suspect secondary to pulmonary edema, pneumonia, and possible early ARDS * remains on ventilator support * on bronchodilators and steroids * fluid removal with dialysis * follow respiratory status (3) Septic shock: Code(s): A41.9 - Sepsis, unspecified organism; R65.21 - Severe sepsis with septic shock Status: Acute Assessment and Plan: * possible related to pneumonia versus UTI * initiated on vasopressor therapy * follow culture data * 06/06 blood culture with E.coli and Stap epi * urine culture negative * on antibiotics * stress dose steroids - being weaned * follow trend of hemodynamics (4) Pulmonary edema: Code(s): J81.1 - Chronic pulmonary edema Status: Acute Assessment and Plan: * contributing to #2 * secondary to JOVI/ARF but ARDS possibly playing a role * this is likely related to acute kidney injury and ARDS * fluid removal with dialysis as tolerated (5) SLE (systemic lupus erythematosus): Code(s): M32.9 - Systemic lupus erythematosus, unspecified Status: Acute Assessment and Plan: * ? SLE flare * getting stress dose steroids - being weaned * seems less likely based on evidence to date * however, would not be a candidate for immunosuppression at this time (6) Anemia: Code(s): D64.9 - Anemia, unspecified Status: Acute Assessment and Plan: * related to JOVI and acute/critical illness * KIRILL with HD as needed * follow trend of H/H (7) Type 2 diabetes mellitus: Code(s): E11.9 - Type 2 diabetes mellitus without complications Status: Acute Assessment and Plan: * follow accu-cheks * glycemic control per [employer] wiring technician/hospitalist Will continue to follow. Subjective Date/time seen: 06/11/24 09:36 Interval history: Follow-up for acute kidney injury/acute renal failure requiring hemodialysis. Tolerating hemodialysis treatment at the time of my visit (seen on HD at 9:26AM); dialysis holiday yesterday since she received daily dialysis/ultrafiltration last week; remains intubated and on mechanical ventilation; mentation seems stable - opens her eyes and follows simple commands as well as nods to yes/no questions; still requiring low dose levophed gtt to maintain MAP/blood pressure; no other issues/events overnight Exam Narrative: General: large female intubated/sedated on mechanical ventilator Heart: normal S1 and S2; no rub Lungs: coarse breath sounds; decreased at bases Abdomen: obese but soft, nontender, nondistended, positive bowel sounds Extremities: no cyanosis or clubbing; 2 - 3+ edema Skin: warm and dry Objective Data Vital Signs Vital Signs: Vital Signs Temp Pulse Resp BP Pulse Ox O2 Del Method FiO2 06/11/24 09:30 65 115/94 H 06/11/24 09:15 63 120/47 L 06/11/24 09:00 63 119/47 L 06/11/24 08:45 44 L 114/43 L 06/11/24 08:10 62 130/52 L 06/11/24 07:55 45 06/11/24 07:55 97.7 F 65 24 H 122/49 L 96 06/11/24 08:45 64 112/45 L 06/11/24 08:00 63 24 H 97 Mechanical Ventilation 45 06/11/24 08:00 64 06/11/24 08:00 63 24 H 06/11/24 08:00 63 24 H 06/11/24 08:37 64 98/35 L 06/11/24 08:00 63 123/48 L 06/11/24 08:00 45 06/11/24 08:00 97.6 F 63 24 H 123/48 L 96 06/11/24 07:57 61 06/11/24 06:45 68 120/40 L 06/11/24 06:30 68 120/45 L 06/11/24 06:00 70 24 H 06/11/24 06:00 71 117/45 L 06/11/24 06:00 71 24 H 06/11/24 06:00 70 06/11/24 06:00 71 24 H 120/46 L 95 06/11/24 05:24 72 94 Mechanical Ventilation 45 06/11/24 05:00 72 110/45 L 06/11/24 04:00 61 118/42 L 06/11/24 04:00 61 24 H 06/11/24 04:00 61 24 H 06/11/24 04:00 61 24 H 93 Mechanical Ventilation 45 06/11/24 04:00 45 06/11/24 04:00 62 06/11/24 04:00 97.0 F L 61 24 H 118/43 L 92 06/11/24 02:17 60 24 H 06/10/24 19:18 61 24 H 06/11/24 03:00 60 24 H 117/44 L 91 06/11/24 01:00 60 24 H 108/37 L 92 06/11/24 03:00 60 120/45 L 06/11/24 02:00 60 117/44 L 06/11/24 02:00 60 24 H 06/11/24 02:00 60 24 H 06/11/24 02:00 60 24 H 117/44 L 92 06/11/24 02:00 60 06/11/24 02:11 60 24 H 06/11/24 02:05 60 94 Mechanical Ventilation 45 06/10/24 23:00 60 24 H 122/52 L 96 06/11/24 01:15 60 128/51 L 06/11/24 01:00 60 110/40 L 06/11/24 00:00 60 06/11/24 00:00 60 24 H 93 Mechanical Ventilation 45 06/11/24 00:00 97.0 F L 60 24 H 103/49 L 93 06/11/24 00:09 60 114/45 L 06/11/24 00:00 60 24 H 06/11/24 00:00 60 24 H 06/10/24 22:00 60 24 H 06/10/24 23:54 60 101/39 L 06/10/24 23:52 45 06/10/24 22:00 60 06/10/24 23:00 60 122/52 L 06/10/24 22:00 60 115/49 L 06/10/24 21:36 60 114/44 L 06/10/24 22:00 60 24 H 06/10/24 22:00 60 24 H 115/49 L 95 06/10/24 23:36 61 95 Mechanical Ventilation 45 06/10/24 20:00 64 06/10/24 21:00 61 24 H 120/53 L 96 06/10/24 20:00 60 24 H 06/10/24 20:00 60 24 H 06/10/24 20:36 60 111/44 L 06/10/24 20:00 60 24 H 94 Mechanical Ventilation 45 06/10/24 20:00 97.0 F L 60 24 H 121/50 L 94 06/10/24 20:00 45 06/10/24 20:33 60 06/10/24 20:21 60 140/62 06/10/24 19:12 60 24 H 06/10/24 19:12 60 96 Mechanical Ventilation 45 06/10/24 16:46 60 97 Mechanical Ventilation 45 06/10/24 18:00 61 24 H 121/53 L 98 06/10/24 18:00 61 06/10/24 16:00 61 06/10/24 18:00 61 24 H 06/10/24 16:00 60 24 H 06/10/24 18:00 60 24 H 06/10/24 18:00 60 121/53 L 06/10/24 16:00 61 24 H 98 Mechanical Ventilation 45 06/10/24 16:30 61 118/48 L 06/10/24 16:00 61 123/55 L 06/10/24 16:00 61 24 H 06/10/24 16:00 45 06/10/24 16:00 97.7 F 61 24 H 123/55 L 97 06/10/24 14:00 60 24 H 10/20/24 14:00 60 24 H 06/10/24 14:00 60 119/47 L 06/10/24 14:00 60 24 H 119/47 L 100 06/10/24 14:00 60 06/10/24 13:34 60 24 H 06/10/24 13:17 60 24 H 06/10/24 13:17 60 24 H 06/10/24 13:11 60 24 H 06/10/24 13:11 60 100 Mechanical Ventilation 45 06/10/24 12:00 60 06/10/24 12:00 60 24 H 99 Mechanical Ventilation 45 06/10/24 12:00 45 06/10/24 12:00 60 24 H 06/10/24 12:00 60 24 H 06/10/24 12:00 60 129/55 L 06/10/24 12:00 97.7 F 60 24 H 129/55 L 97 Intake/Output Intake/Output: Intake & Output 06/08/24 06/09/24 06/10/24 06/11/24 23:59 23:59 23:59 23:59 Intake Total 1167.3 1063.9 1873.1 764.9 Output Total 3254 3150 800 450 Balance -2086.7 -2086.1 1073.1 314.9 Meds/Results Medications: Active Medications Generic Name Dose Route Start Last Admin Trade Name Freq PRN Reason Stop Dose Admin Acetaminophen 650 mg 06/07/24 21:53 06/07/24 22:30 Acetaminophen Elixir 325 Mg/10.15 Ml Udc PO 650 mg Q6H PRN Administration Mild Pain (1-3) or Fever Albuterol/Ipratropium 3 ml 06/05/24 11:15 06/11/24 08:55 Ipratropium 0.5 Mg/Albuterol Sulfate 2.5 Mg Ampul.Neb 3 Ml INHALATION 3 ml Q6HRT JOHN Administration Amiodarone HCl 200 mg 06/02/24 21:00 06/11/24 07:57 Amiodarone Hcl 200 Mg Tablet PO 200 mg Q12HR JOHN Administration Apixaban 5 mg 06/06/24 09:30 06/11/24 07:58 Apixaban 5 Mg Tablet PO 5 mg Q12HR JOHN Administration Dextrose 12.5 gm 06/05/24 11:46 Dextrose 50% 25 Gm/50 Ml Syringe IV PUSH PRN PRN Hypoglycemia Protocol Epoetin Shayan-epbx 10,000 units 06/11/24 20:00 06/11/24 08:53 Epoetin Shayan-Epbx 10,000 Units/Ml Vial IV PUSH 06/11/24 20:01 10,000 units ONCE ONE Administration Flecainide Acetate 100 mg 06/02/24 21:00 06/08/24 10:26 Flecainide Acetate 100 Mg Tablet PO Not Given Q12HR JOHN Gabapentin 200 mg 06/02/24 22:00 06/04/24 21:07 Gabapentin 100 Mg Capsule PO 200 mg Q8HR JOHN Administration Glucagon 1 mg 06/05/24 11:46 Glucagon For Inj 1 Mg Vial IM PRN PRN Hypoglycemia Protocol Glucose 15 gm 06/05/24 11:46 Glucose Oral Gel 15 Gm Of Glucse In 37.5 Gm Tube PO PRN PRN Hypoglycemia Protocol Hydrocortisone Sodium Succinate 50 mg 06/12/24 06:00 Hydrocortisone Sodium Succinate 100 Mg/2 Ml Vial IV PUSH 06/13/24 06:01 DAILY@0600 JOHN Norepinephrine Bitartrate 8 mg in 250 mls @ 13.125 mls/hr 06/05/24 00:35 05/23 09/14 08:45 Levophed 8 Mg/D5w 250 Ml IV CONT 7 mcg/min .Q19H3M JOHN 13.13 mls/hr Titration Protocol 7 MCG/MIN Fentanyl Citrate 2,500 mcg in 250 mls @ 5 mls/hr 06/05/24 08:35 06/11/24 08:00 Fentanyl 2,500 Mcg/Ns 250 Ml IV CONT 50 mcg/hr .Q50H JOHN 5 mls/hr Titration Protocol 50 MCG/HR Midazolam HCl 100 mg in 100 mls @ 1 mls/hr 06/05/24 08:35 06/11/24 08:00 Versed 100 Mg/Ns 100 Ml IV CONT 1 mg/hr .Q72H JOHN 1 mls/hr Titration Protocol 1 MG/HR Dextrose 1,000 mls @ 100 mls/hr 06/05/24 11:46 Dextrose 5% 1,000 Ml IVPB PRN PRN Hypoglycemia Protocol Cefepime HCl 1 gm in 50 mls @ 100 mls/hr 06/06/24 16:00 06/10/24 15:45 Maxipime 1 Gm/Ns 50 Ml IVPB 06/12/24 23:59 Infused Q24H [facility] Infusion Albumin Human 50 mls @ 999 mls/hr 06/08/24 09:50 Albutein IVPB 07/08/24 09:49 Q10M PRN HYPOTENSION Insulin Aspart 3 - 6 units 06/05/24 12:00 06/11/24 06:00 Insulin Aspart (*Bkc) 100 Units/Ml SUB-Q Not Given Q6HR [facility] Protocol Midodrine 10 mg 06/05/24 09:00 06/11/24 07:58 Midodrine Hcl 10 Mg Tablet PO 10 mg TID [facility] Administration Multi-Ingred Cream/Lotion/Oil/Oint 1 applic 06/05/24 09:00 06/11/24 07:58 Mineral Oil/White Petrolatum Ointment EACH EYE 1 applic Q12HR [facility] Administration Ondansetron HCl 4 mg 06/11/24 07:47 06/11/24 07:57 Ondansetron Inj 4 Mg/2 Ml Vial IV PUSH 4 mg Q6H PRN Administration Nausea And Vomiting Pantoprazole Sodium 40 mg 06/06/24 09:00 06/11/24 07:57 Pantoprazole Sodium Iv 40 Mg Vial IV PUSH 40 mg Q12HR [facility] Administration Fluticasone/Salmeterol 2 puff 06/03/24 08:00 06/09/24 13:25 Fluticasone/Salmeterol 115-21 Mcg Inhaler 1 Puff INHALATION Not Given Q12HRT [facility] Sodium Chloride 10 ml 06/05/24 06:00 06/11/24 05:00 Central Line Flush IV PUSH 10 ml Q8HR JOHN Administration Sodium Chloride 20 ml 06/05/24 03:12 Central Line Flush IV PUSH PRN PRN after blood draws Umeclidinium [place] 1 puff 06/03/24 08:00 06/09/24 13:26 Umeclidinium [place] 62.5 Mcg Ellipta INHALATION Not Given DAILYRT [facility] Radiology Results: ITS Impressions Renal Ultrasound 06/04/24 15:06 IMPRESSION: 1. Normal kidneys. No hydronephrosis. Chest/Abdomen/Pelvis CT 06/04/24 19:12 IMPRESSION: 1. Diffuse lung disease, consistent with pulmonary edema versus pneumonia. 2. Moderate volume of ascites. Venous Doppler Study 06/07/24 17:01 IMPRESSION: 1. No deep venous thrombosis. Abdomen Ultrasound 06/10/24 14:47 IMPRESSION: Fat infiltration. Enlarged left lobe of the liver. Slightly thickened wall of the gallbladder. Trace of ascites. Otherwise, normal Limited ultrasound of the abdomen. Chest X-Ray 06/11/24 06:28 Impression: Extensive bibasilar pulmonary consolidation. Correlate for pulmonary edema/atelectasis, pneumonia, or ARDS. Support tubes, as above. Abdomen X-Ray 06/11/24 07:58 Impression: Limited exam. NG tube is in satisfactory position. Labs Labs: Laboratory Tests 06/11/24 05:00 06/11/24 05:00 Calcium 10.5 H Phosphorus 5.4 H Magnesium 2.8 H Total Bilirubin 1.7 H AST 117 H ALT 64 H Alkaline Phosphatase 186 H Total Protein 7.0 Albumin 3.4 L Microbiology 06/07/24 15:51 Sputum Sputum Culture - Final Yeast Present 06/06/24 07:43 Blood Blood Culture - Final Escherichia Coli Staphylococcus epidermidis
--- NOTE | 2024-06-11 09:37 | PC.NURSE ---
Updated patient's sister/HCPOA, Jose Raul, via telephone on patient condition and plan of care.
--- NOTE | 2024-06-11 10:28 | PCFNICU ---
ICU Rounding Note: Pt current nutrition is Nepro A 40 ml/h:1584 kcal, 71 g protein, 640 ml free water. Meeting ~ 100% EER and estimated protein needs . Nutrition recommendation: No new nutrition recommendations. Continue with same nutrition care plan and tube feeding orders. Agree with orders. Last recorded weight is 173.5 kg. Bowel Motility: +1 BM 06/11/24 Labs Reviewed: Hgb 10.9, Hct 33.6, Alb 3.4, Na 132, BUN 95, Cre 3.9, Glu 196. MAP 75 Meds Noted: Fentanyl, versed, levophed. Cefepime, protonix Skin: No skin issues Additional Notes: Day 5 ventilator. Levophed was increased this morning. Stable on tube feeds. Continue current orders. Following daily in ICU rounds. Will monitor weight, labs, skin, meds, diet orders every Tuesday and Tuesday. .
[2024-06-11 12:15] LABS: Glucose Point of Care 184 mg/dl (65-105)
--- NOTE | 2024-06-11 12:48 | PM.IMPN ---
Progress Note: A&P Assessment and Plan (1) Acute respiratory failure: Code(s): J96.00 - Acute respiratory failure, unspecified whether with hypoxia or hypercapnia Status: Acute Assessment and Plan: Patient with increasing oxygen requirements in the last 24 hours, brought to the ICU after midnight on 06/05/2024, chest x-ray showed bilateral diffuse pulmonary infiltrates/pulmonary edema. Patient was placed on BiPAP. ABG showed hypercapnic and hypoxemic respiratory failure -etiology likely related to pulmonary edema, pneumonia, ARDS -06/05: patient intubated for impending respiratory failure. Intubation was slightly challenging secondary to body habitus, small mouth, large tongue, redundant tissue in the hypopharynx and anterior vocal cords requiring cricoid pressure and use of glide scope. -patient placed on CMV mode of ventilation, peep of 14, 50% FiO2 -chest x-ray and ABGs reviewed, ventilator adjusted -continue bronchodilators -continue steroids for pneumonia - fentanyl and Versed infusion for analgosedation, will maintain RASS of -2 -daily SBT and SAT -continue dialysis for fluid removal (2) Septic shock: Code(s): A41.9 - Sepsis, unspecified organism; R65.21 - Severe sepsis with septic shock Status: Acute Assessment and Plan: Septic shock could be related to UTI, pneumonia -patient was hypotensive in the intermediate Unit and was transferred to the ICU which she received fluids, albumin -continue norepinephrine, will maintain MAP > 65 mmHg or SBP > 100 mmHg adequate end organ perfusion -off vasopressin since 06/06/2024 evening -patient is on vancomycin and cefepime -fluconazole was discontinued given her renal dysfunction -continue stress dose steroids which is getting weaned -lactic acid has normalized On midodrine (3) JOVI (acute kidney injury): Code(s): N17.9 - Acute kidney failure, unspecified Status: Acute Assessment and Plan: Patient with acute kidney injury, this morning her creatinine is 4.60 (creatinine on admission on 06/02/2024 was 2.10 and her creatinine on 04/26/2024 was 0.90) -etiology for acute kidney injury could be multifactorial, hypotension, shock, sepsis, UTI/pneumonia, hypoxia,? SLE flare, CHF, -CK levels are within normal limits -urine eosinophils were negative -urine electrolytes showed prerenal picture, patient seems to be volume overloaded -was given IV fluids and albumin overnight, will hold fluids for now -discussed with motorized squad captain at [facility], feels that the patient is unstable to be transferred at this time for CRRT, recommended conventional dialysis. -discussed with masonry contractor at [facility], agrees to conventional dialysis at this time -06/05: dialysis catheter was placed in the right IJ and exchange for the central line -06/05: Initiate dialysis, with 3000 mL of fluid removal -06/06: Dialysis with 3000 mL in fluid removal -06/07: Dialysis with 3700 mL in fluid removal 06/08: Dialysis with 2900 mL in fluid removal 06/09: Dialysis with 3 L in fluid removal 06/10: No dialysis 06/11: Dialysis per Nephrology Ongoing dialysis per Nephrology (4) Pulmonary edema: Code(s): J81.1 - Chronic pulmonary edema Status: Acute Assessment and Plan: Pulmonary edema likely related to acute kidney injury, ARDS, -did not respond to Bumex -continue fluid removal with dialysis (5) Type 2 diabetes mellitus: Code(s): E11.9 - Type 2 diabetes mellitus without complications Status: Acute Assessment and Plan: SSI and accucheks HbA1C is 5.7 this admission (6) Afib: Code(s): I48.91 - Unspecified atrial fibrillation Status: Acute Assessment and Plan: continue amiodarone Flecainide stopped (7) SLE (systemic lupus erythematosus): Code(s): M32.9 - Systemic lupus erythematosus, unspecified Status: Acute Assessment and Plan: ? SLE flare Continue stress dose steroids (8) Liver cirrhosis secondary to HOFFMANN: Code(s): K75.81 - Nonalcoholic steatohepatitis (HOFFMANN); K74.60 - Unspecified cirrhosis of liver Status: Acute Assessment and Plan: Mild elevation in LFTs, which are improving -continue to monitor (9) GERD (gastroesophageal reflux disease): Code(s): K21.9 - Gastro-esophageal reflux disease without esophagitis Status: Acute Assessment and Plan: Continue Protonix (10) Morbid obesity with BMI of 50.0-59.9, adult: Code(s): E66.01 - Morbid (severe) obesity due to excess calories; Z68.43 - Body mass index [BMI] 50.0-59.9, adult Status: Acute Assessment and Plan: Once extubated she will need lifestyle changes Plan DVT prophylaxis: Chance Stress ulcer prophylaxis: Protonix Nutrition: Patient tolerating tube feeds at 20 mL/hour, will increase to goal Code Status: Full code Subjective Date/time seen: 06/11/24 12:48 Interval history: Patient remains afebrile no other overnight events reported. Remains intubated and ventilated. Remains on Levophed. Review of Systems Review of Systems: ROS unobtainable: Yes unobtainable due to mental status Exam Narrative: General: Morbidly obese female currently intubated and sedated in no acute distress HEENT:? Pupils equal and reactive bilaterally, sclera is clear, ETT in place Neck:, short and thick neck, Respiratory:? Decreased and coarse breath sounds bilaterally, no wheezing, Cardiac:? S1-S2 is normal, regular rate and rhythm Abdomen:? Morbid obesity, soft, hypoactive bowel sounds Extremities:? Bilateral lower extremity pitting edema improving, wrinkling of skin on the feet are noted, palpable pedal pulses. Right calf erythema has improved, Neuro:? Patient is intubated, sedated, opens her eyes, follows simple commands in all extremities and nods to questions Skin:? Erythema in the intertriginous region and under her pannus, skin is dry and warm Psych:? Unable to assess at this time Objective Data Vital Signs Vital Signs: Vital Signs - 24 hr 06/10/24 13:11 06/10/24 13:11 06/10/24 13:17 Temperature Pulse Rate 60 60 60 Respiratory Rate 24 H 24 H Blood Pressure Pulse Oximetry 100 Oxygen Delivery Mechanical Ventilation Fraction of Inspired Oxygen 45 06/10/24 13:17 06/10/24 13:34 06/10/24 14:00 Temperature Pulse Rate 60 60 60 Respiratory Rate 24 H 24 H Blood Pressure Pulse Oximetry Oxygen Delivery Fraction of Inspired Oxygen 06/10/24 14:00 06/10/24 14:00 06/10/24 14:00 Temperature Pulse Rate 60 60 60 Respiratory Rate 24 H 24 H Blood Pressure 119/47 L 119/47 L Pulse Oximetry 100 Oxygen Delivery Fraction of Inspired Oxygen 06/10/24 14:00 06/10/24 16:00 06/10/24 16:00 Temperature 97.7 F Pulse Rate 60 61 Respiratory Rate 24 H 24 H Blood Pressure 123/55 L Pulse Oximetry 97 Oxygen Delivery Fraction of Inspired Oxygen 45 06/10/24 16:00 06/10/24 16:00 06/10/24 16:30 Temperature Pulse Rate 61 61 61 Respiratory Rate 24 H Blood Pressure 123/55 L 118/48 L Pulse Oximetry Oxygen Delivery Fraction of Inspired Oxygen 06/10/24 16:00 06/10/24 18:00 06/10/24 18:00 Temperature Pulse Rate 61 60 60 Respiratory Rate 24 H 24 H Blood Pressure 121/53 L Pulse Oximetry 98 Oxygen Delivery Mechanical Ventilation Fraction of Inspired Oxygen 45 06/10/24 16:00 06/10/24 18:00 06/10/24 16:00 Temperature Pulse Rate 60 61 61 Respiratory Rate 24 H 24 H Blood Pressure Pulse Oximetry Oxygen Delivery Fraction of Inspired Oxygen 06/10/24 18:00 06/10/24 18:00 06/10/24 16:46 Temperature Pulse Rate 61 61 60 Respiratory Rate 24 H Blood Pressure 121/53 L Pulse Oximetry 98 97 Oxygen Delivery Mechanical Ventilation Fraction of Inspired Oxygen 45 06/10/24 19:12 06/10/24 19:12 06/10/24 20:21 Temperature Pulse Rate 60 60 60 Respiratory Rate 24 H Blood Pressure 140/62 Pulse Oximetry 96 Oxygen Delivery Mechanical Ventilation Fraction of Inspired Oxygen 45 06/10/24 20:33 06/10/24 20:00 06/10/24 20:00 Temperature 97.0 F L Pulse Rate 60 60 Respiratory Rate 24 H Blood Pressure 121/50 L Pulse Oximetry 94 Oxygen Delivery Fraction of Inspired Oxygen 45 06/10/24 20:00 06/10/24 20:36 06/10/24 20:00 Temperature Pulse Rate 60 60 60 Respiratory Rate 24 H 24 H Blood Pressure 111/44 L Pulse Oximetry 94 Oxygen Delivery Mechanical Ventilation Fraction of Inspired Oxygen 45 06/10/24 20:00 06/10/24 21:00 06/10/24 20:00 Temperature Pulse Rate 60 61 64 Respiratory Rate 24 H 24 H Blood Pressure 120/53 L Pulse Oximetry 96 Oxygen Delivery Fraction of Inspired Oxygen 06/10/24 23:36 06/10/24 22:00 06/10/24 22:00 Temperature Pulse Rate 61 60 60 Respiratory Rate 24 H 24 H Blood Pressure 115/49 L Pulse Oximetry 95 95 Oxygen Delivery Mechanical Ventilation Fraction of Inspired Oxygen 45 06/10/24 21:36 06/10/24 22:00 06/10/24 23:00 Temperature Pulse Rate 60 60 60 Respiratory Rate Blood Pressure 114/44 L 115/49 L 122/52 L Pulse Oximetry Oxygen Delivery Fraction of Inspired Oxygen 06/10/24 22:00 06/10/24 23:52 06/10/24 23:54 Temperature Pulse Rate 60 60 Respiratory Rate Blood Pressure 101/39 L Pulse Oximetry Oxygen Delivery Fraction of Inspired Oxygen 45 06/10/24 22:00 06/11/24 00:00 06/11/24 00:00 Temperature Pulse Rate 60 60 60 Respiratory Rate 24 H 24 H 24 H Blood Pressure Pulse Oximetry Oxygen Delivery Fraction of Inspired Oxygen 06/11/24 00:09 06/11/24 00:00 06/11/24 00:00 Temperature 97.0 F L Pulse Rate 60 60 60 Respiratory Rate 24 H 24 H Blood Pressure 114/45 L 103/49 L Pulse Oximetry 93 93 Oxygen Delivery Mechanical Ventilation Fraction of Inspired Oxygen 45 06/11/24 00:00 06/11/24 01:00 06/11/24 01:15 Temperature Pulse Rate 60 60 60 Respiratory Rate Blood Pressure 110/40 L 128/51 L Pulse Oximetry Oxygen Delivery Fraction of Inspired Oxygen 06/10/24 23:00 06/11/24 02:05 06/11/24 02:11 Temperature Pulse Rate 60 60 60 Respiratory Rate 24 H 24 H Blood Pressure 122/52 L Pulse Oximetry 96 94 Oxygen Delivery Mechanical Ventilation Fraction of Inspired Oxygen 45 06/11/24 02:00 06/11/24 02:00 06/11/24 02:00 Temperature Pulse Rate 60 60 60 Respiratory Rate 24 H 24 H Blood Pressure 117/44 L Pulse Oximetry 92 Oxygen Delivery Fraction of Inspired Oxygen 06/11/24 02:00 06/11/24 02:00 06/11/24 03:00 Temperature Pulse Rate 60 60 60 Respiratory Rate 24 H Blood Pressure 117/44 L 120/45 L Pulse Oximetry Oxygen Delivery Fraction of Inspired Oxygen 06/11/24 01:00 06/11/24 03:00 06/10/24 19:18 Temperature Pulse Rate 60 60 61 Respiratory Rate 24 H 24 H 24 H Blood Pressure 108/37 L 117/44 L Pulse Oximetry 92 91 Oxygen Delivery Fraction of Inspired Oxygen 06/11/24 02:17 06/11/24 04:00 06/11/24 04:00 Temperature 97.0 F L Pulse Rate 60 61 62 Respiratory Rate 24 H 24 H Blood Pressure 118/43 L Pulse Oximetry 92 Oxygen Delivery Fraction of Inspired Oxygen 06/11/24 04:00 06/11/24 04:00 06/11/24 04:00 Temperature Pulse Rate 61 61 Respiratory Rate 24 H 24 H Blood Pressure Pulse Oximetry 93 Oxygen Delivery Mechanical Ventilation Fraction of Inspired Oxygen 45 45 06/11/24 04:00 06/11/24 04:00 06/11/24 05:00 Temperature Pulse Rate 61 61 72 Respiratory Rate 24 H Blood Pressure 118/42 L 110/45 L Pulse Oximetry Oxygen Delivery Fraction of Inspired Oxygen 06/11/24 05:24 06/11/24 06:00 06/11/24 06:00 Temperature Pulse Rate 72 71 70 Respiratory Rate 24 H Blood Pressure 120/46 L Pulse Oximetry 94 95 Oxygen Delivery Mechanical Ventilation Fraction of Inspired Oxygen 45 06/11/24 06:00 06/11/24 06:00 06/11/24 06:00 Temperature Pulse Rate 71 71 70 Respiratory Rate 24 H 24 H Blood Pressure 117/45 L Pulse Oximetry Oxygen Delivery Fraction of Inspired Oxygen 06/11/24 06:30 06/11/24 06:45 06/11/24 07:57 Temperature Pulse Rate 68 68 61 Respiratory Rate Blood Pressure 120/45 L 120/40 L Pulse Oximetry Oxygen Delivery Fraction of Inspired Oxygen 06/11/24 08:00 06/11/24 08:00 06/11/24 08:00 Temperature 97.6 F Pulse Rate 63 63 Respiratory Rate 24 H Blood Pressure 123/48 L 123/48 L Pulse Oximetry 96 Oxygen Delivery Fraction of Inspired Oxygen 45 06/11/24 08:37 06/11/24 08:00 06/11/24 08:00 Temperature Pulse Rate 64 63 63 Respiratory Rate 24 H 24 H Blood Pressure 98/35 L Pulse Oximetry Oxygen Delivery Fraction of Inspired Oxygen 06/11/24 08:00 06/11/24 08:00 06/11/24 08:45 Temperature Pulse Rate 64 63 64 Respiratory Rate 24 H Blood Pressure 112/45 L Pulse Oximetry 97 Oxygen Delivery Mechanical Ventilation Fraction of Inspired Oxygen 45 06/11/24 07:55 06/11/24 07:55 06/11/24 08:10 Temperature 97.7 F Pulse Rate 65 62 Respiratory Rate 24 H Blood Pressure 122/49 L 130/52 L Pulse Oximetry 96 Oxygen Delivery Fraction of Inspired Oxygen 45 06/11/24 08:45 06/11/24 09:00 06/11/24 09:15 Temperature Pulse Rate 44 L 63 63 Respiratory Rate Blood Pressure 114/43 L 119/47 L 120/47 L Pulse Oximetry Oxygen Delivery Fraction of Inspired Oxygen 06/11/24 09:30 06/11/24 08:20 06/11/24 08:30 Temperature Pulse Rate 65 63 61 Respiratory Rate Blood Pressure 115/94 H 124/68 116/45 L Pulse Oximetry Oxygen Delivery Fraction of Inspired Oxygen 06/11/24 08:55 06/11/24 09:45 06/11/24 10:00 Temperature Pulse Rate 63 66 69 Respiratory Rate Blood Pressure 113/44 L 103/40 L Pulse Oximetry 96 Oxygen Delivery Mechanical Ventilation Fraction of Inspired Oxygen 45 06/11/24 10:15 06/11/24 10:30 06/11/24 10:45 Temperature Pulse Rate 71 73 70 Respiratory Rate Blood Pressure 105/41 L 125/51 L 142/59 H Pulse Oximetry Oxygen Delivery Fraction of Inspired Oxygen 06/11/24 11:00 06/11/24 11:17 06/11/24 11:30 Temperature Pulse Rate 66 70 71 Respiratory Rate Blood Pressure 130/51 L 121/47 L 114/46 L Pulse Oximetry Oxygen Delivery Fraction of Inspired Oxygen 06/11/24 11:40 06/11/24 11:53 06/11/24 10:00 Temperature 97.7 F Pulse Rate 73 73 72 Respiratory Rate 24 H 23 H Blood Pressure 113/44 L 118/46 L 124/49 L Pulse Oximetry 94 95 Oxygen Delivery Fraction of Inspired Oxygen 06/11/24 10:00 06/11/24 12:00 06/11/24 12:00 Temperature 98.0 F Pulse Rate 66 72 72 Respiratory Rate 24 H 24 H Blood Pressure 117/48 L Pulse Oximetry 95 94 Oxygen Delivery Mechanical Ventilation Fraction of Inspired Oxygen 45 06/11/24 12:00 06/11/24 10:00 06/11/24 10:00 Temperature Pulse Rate 66 66 Respiratory Rate 24 H 24 H Blood Pressure Pulse Oximetry Oxygen Delivery Fraction of Inspired Oxygen 45 06/11/24 12:00 06/11/24 12:00 06/11/24 12:00 Temperature Pulse Rate 79 72 70 Respiratory Rate 24 H 24 H Blood Pressure Pulse Oximetry Oxygen Delivery Fraction of Inspired Oxygen Intake/Output Intake/Output: Intake & Output 06/08/24 06/09/24 06/10/24 06/11/24 23:59 23:59 23:59 23:59 Intake Total 1167.3 1063.9 1873.1 828.9 Output Total 3254 3150 800 3450 Balance -2086.7 -2086.1 1073.1 -2621.1 Meds/Results Medications: Active Medications Generic Name Dose Route Start Last Admin Trade Name Freq PRN Reason Stop Dose Admin Acetaminophen 650 mg 06/07/24 21:53 06/07/24 22:30 Acetaminophen Elixir 325 Mg/10.15 Ml Udc PO 650 mg Q6H PRN Administration Mild Pain (1-3) or Fever Albuterol/Ipratropium 3 ml 06/05/24 11:15 06/11/24 08:55 Ipratropium 0.5 Mg/Albuterol Sulfate 2.5 Mg Ampul.Neb 3 Ml INHALATION 3 ml Q6HRT JOHN Administration Amiodarone HCl 200 mg 06/02/24 21:00 06/11/24 07:57 Amiodarone Hcl 200 Mg Tablet PO 200 mg Q12HR JOHN Administration Apixaban 5 mg 06/06/24 09:30 06/11/24 07:58 Apixaban 5 Mg Tablet PO 5 mg Q12HR JOHN Administration Dextrose 12.5 gm 06/05/24 11:46 Dextrose 50% 25 Gm/50 Ml Syringe IV PUSH PRN PRN Hypoglycemia Protocol Epoetin Shayan-epbx 10,000 units 06/11/24 20:00 06/11/24 08:53 Epoetin Shayan-Epbx 10,000 Units/Ml Vial IV PUSH 06/11/24 20:01 10,000 units ONCE ONE Administration Flecainide Acetate 100 mg 06/02/24 21:00 06/08/24 10:26 Flecainide Acetate 100 Mg Tablet PO Not Given Q12HR JOHN Gabapentin 200 mg 06/02/24 22:00 06/04/24 21:07 Gabapentin 100 Mg Capsule PO 200 mg Q8HR JOHN Administration Glucagon 1 mg 06/05/24 11:46 Glucagon For Inj 1 Mg Vial IM PRN PRN Hypoglycemia Protocol Glucose 15 gm 06/05/24 11:46 Glucose Oral Gel 15 Gm Of Glucse In 37.5 Gm Tube PO PRN PRN Hypoglycemia Protocol Hydrocortisone Sodium Succinate 50 mg 06/12/24 06:00 Hydrocortisone Sodium Succinate 100 Mg/2 Ml Vial IV PUSH 06/13/24 06:01 DAILY@0600 [facility] Norepinephrine Bitartrate 8 mg in 250 mls @ 13.125 mls/hr 06/05/24 00:35 06/11/24 08:45 Levophed 8 Mg/D5w 250 Ml IV CONT 7 mcg/min .Q19H3M JOHN 13.13 mls/hr Titration Protocol 7 MCG/MIN Fentanyl Citrate 2,500 mcg in 250 mls @ 5 mls/hr 06/05/24 08:35 06/11/24 12:00 Fentanyl 2,500 Mcg/Ns 250 Ml IV CONT 50 mcg/hr .Q50H JOHN 5 mls/hr Titration Protocol 50 MCG/HR Midazolam HCl 100 mg in 100 mls @ 1 mls/hr 06/05/24 08:35 06/11/24 12:38 Versed 100 Mg/Ns 100 Ml IV CONT Not Given .Q72H JOHN Protocol 1 MG/HR Dextrose 1,000 mls @ 100 mls/hr 06/05/24 11:46 Dextrose 5% 1,000 Ml IVPB PRN PRN Hypoglycemia Protocol Cefepime HCl 1 gm in 50 mls @ 100 mls/hr 06/06/24 16:00 06/10/24 15:45 Maxipime 1 Gm/Ns 50 Ml IVPB 06/12/24 23:59 Infused Q24H JOHN Infusion Albumin Human 50 mls @ 999 mls/hr 06/08/24 09:50 Albutein IVPB 07/08/24 09:49 Q10M PRN HYPOTENSION Insulin Aspart 3 - 6 units 06/05/24 12:00 06/11/24 12:19 Insulin Aspart (*Bkc) 100 Units/Ml SUB-Q Not Given Q6HR [facility] Protocol Midodrine 10 mg 06/05/24 09:00 06/11/24 12:19 Midodrine Hcl 10 Mg Tablet PO 10 mg TID JOHN Administration Multi-Ingred Cream/Lotion/Oil/Oint 1 applic 06/05/24 09:00 06/11/24 07:58 Mineral Oil/White Petrolatum Ointment EACH EYE 1 applic Q12HR JOHN Administration Ondansetron HCl 4 mg 06/11/24 07:47 06/11/24 07:57 Ondansetron Inj 4 Mg/2 Ml Vial IV PUSH 4 mg Q6H PRN Administration Nausea And Vomiting Pantoprazole Sodium 40 mg 06/06/24 09:00 06/11/24 07:57 Pantoprazole Sodium Iv 40 Mg Vial IV PUSH 40 mg Q12HR JOHN Administration Fluticasone/Salmeterol 2 puff 06/03/24 08:00 06/09/24 13:25 Fluticasone/Salmeterol 115-21 Mcg Inhaler 1 Puff INHALATION Not Given Q12HRT JOHN Sodium Chloride 10 ml 06/05/24 06:00 06/11/24 05:00 Central Line Flush IV PUSH 10 ml Q8HR JOHN Administration Sodium Chloride 20 ml 06/05/24 03:12 Central Line Flush IV PUSH PRN PRN after blood draws Umeclidinium [place] 1 puff 06/03/24 08:00 06/09/24 13:26 Umeclidinium [place] 62.5 Mcg Ellipta INHALATION Not Given DAILYRT [facility] Radiology Results: ITS Impressions Renal Ultrasound 06/04/24 15:06 IMPRESSION: 1. Normal kidneys. No hydronephrosis. Chest/Abdomen/Pelvis CT 06/04/24 19:12 IMPRESSION: 1. Diffuse lung disease, consistent with pulmonary edema versus pneumonia. 2. Moderate volume of ascites. Venous Doppler Study 06/07/24 17:01 IMPRESSION: 1. No deep venous thrombosis. Abdomen Ultrasound 06/10/24 14:47 IMPRESSION: Fat infiltration. Enlarged left lobe of the liver. Slightly thickened wall of the gallbladder. Trace of ascites. Otherwise, normal Limited ultrasound of the abdomen. Chest X-Ray 06/11/24 06:28 Impression: Extensive bibasilar pulmonary consolidation. Correlate for pulmonary edema/atelectasis, pneumonia, or ARDS. Support tubes, as above. Abdomen X-Ray 06/11/24 07:58 Impression: Limited exam. NG tube is in satisfactory position. Labs Labs: Laboratory Results - last 24 hr 06/10/24 06/11/24 06/11/24 18:08 00:01 05:00 WBC 17.3 H RBC 3.95 L Hgb 10.9 L Hct 33.6 L MCV 85.1 MCH 27.6 MCHC 32.4 RDW 18.1 H Plt Count 449 H MPV 9.8 Immature Gran % (Auto) 0.9 H Neut % (Auto) 90.2 H Lymph % (Auto) 3.1 L [place] % (Auto) 5.6 Eos % (Auto) 0.0 Baso % (Auto) 0.2 Lymph # (Auto) 0.53 L [place] # (Auto) 1.0 H Eos # (Auto) 0.0 Baso # (Auto) 0.0 Abs Immat Gran (auto) 0.15 H Absolute Neuts (auto) 15.6 H Absolute Nucleated RBC 0.000 Nucleated RBC % 0.0 Platelet Estimate Increased Clumped Platelets Present Hypochromasia 1+ Anisocytosis 1+ Target Cells 1+ Schistocytes None seen Puncture Site ABG pH ABG pCO2 ABG pO2 ABG PO2/FiO2 Ratio ABG HCO3 ABG O2 Saturation ABG O2 Content ABG Base Excess A-a Gradient Oxyhemoglobin Carboxyhemoglobin Methemoglobin Reduced Hemoglobin Total Hemoglobin O2 Delivery Device O2 Liters/Min Minute Volume Vent Rate Vent Mode FiO2 Tidal Volume PEEP Peak Inspir Pressure Pressure Support Sodium 132 L Potassium 4.0 Chloride 96 L Carbon Dioxide 25 Anion Gap 11 BUN 95 H D Creatinine 3.90 H Estim Creat Clear Calc 25 Estimated GFR 12 L Glucose 196 H POC Capillary Glucose 183 H 173 H Calcium 10.5 H Phosphorus 5.4 H Magnesium 2.8 H Total Bilirubin 1.7 H AST 117 H ALT 64 H Alkaline Phosphatase 186 H Total Protein 7.0 Albumin 3.4 L 06/11/24 06/11/24 05:19 11:53 WBC RBC Hgb Hct MCV MCH MCHC RDW Plt Count MPV Immature Gran % (Auto) Neut % (Auto) Lymph % (Auto) [place] % (Auto) Eos % (Auto) Baso % (Auto) Lymph # (Auto) [place] # (Auto) Eos # (Auto) Baso # (Auto) Abs Immat Gran (auto) Absolute Neuts (auto) Absolute Nucleated RBC Nucleated RBC % Platelet Estimate Clumped Platelets Hypochromasia Anisocytosis Target Cells Schistocytes Puncture Site Artline ABG pH 7.398 ABG pCO2 43.6 ABG pO2 76.9 L ABG PO2/FiO2 Ratio 1.71 ABG HCO3 26.3 H ABG O2 Saturation 95.3 ABG O2 Content 16.0 ABG Base Excess 1.2 A-a Gradient 194.4 Oxyhemoglobin 94.5 Carboxyhemoglobin 0.2 Methemoglobin 0.2 Reduced Hemoglobin 5.1 H Total Hemoglobin 12.0 O2 Delivery Device Ventilator O2 Liters/Min Not Reportable Minute Volume Not Reportable Vent Rate 24 Vent Mode Cmv FiO2 45 Tidal Volume 400 PEEP 14 Peak Inspir Pressure Not Reportable Pressure Support Not Reportable Sodium Potassium Chloride Carbon Dioxide Anion Gap BUN Creatinine Estim Creat Clear Calc Estimated GFR Glucose POC Capillary Glucose 184 H Calcium Phosphorus Magnesium Total Bilirubin AST ALT Alkaline Phosphatase Total Protein Albumin
[2024-06-11] MEDS: NOREPINEPHRINE 8 MG/D5W 250 ML 8 MG/250 ML BAG 28.13 MG IV CONT (13:05)
--- NOTE | 2024-06-11 13:42 | PC.NURSE ---
Zofran IVP given for complaints of nausea.
--- NOTE | 2024-06-11 13:56 | PC.NURSE ---
Updated patient's , Charbel, on plan of car and patient condition.
[2024-06-11] MEDS: CEFEPIME 1 GM/NS 50 ML 1 GM/50 ML BAG IVPB (17:03)
[2024-06-11 18:57] LABS: Glucose Point of Care 190 mg/dl (65-105)
[2024-06-12] VITALS (68 sets, daily range): BP systolic 95–133; BP diastolic 16–62; PULSE 60–77; RESP 22–25; TEMP 0–37.2; O2SAT 91–98
[2024-06-12 00:05] LABS: Glucose Point of Care 206 mg/dl (65-105)
[2024-06-12] MEDS: INSULIN ASPART (*BKC) 100 UNITS/ML SUB-Q ×2 (00:08→13:52)
[2024-06-12] MEDS: IPRATROPIUM 0.5 MG/ALBUTEROL SULFATE 2.5 MG AMPUL.NEB 3 ML INHALATION ×4 (02:41→19:54)
[2024-06-12] MEDS: NOREPINEPHRINE 8 MG/D5W 250 ML 8 MG/250 ML BAG 18.75 MG IV CONT (03:12)
[2024-06-12 04:17] LABS: Basophils Percent Auto 0.1 % (0.2-1.2); Eosinophils Absolute Auto 0.1 K/mm3 (0-0.3); Eosinophils Percent Auto 0.2 % (0-4.4); Hematocrit 33.7 % (37.0-47.0); Hemoglobin 10.8 g/dL (12.0-15.0); Immature Granulocyte Absolute 0.21 K/mm3 (0.00-0.031); Lymphocytes Absolute Auto 1.07 K/mm3 (0.9-3.2); Mean Corpuscular Hemoglobin 27.8 pg (26-34); Mean Corpuscular Volume 86.6 fl (80-100); Mean Platelet Volume 9.5 fl (7.4-10.4); Monocytes Absolute Auto 1.5 K/mm3 (0.1-0.6); Monocytes Percent Auto 7.2 % (2.6-8.5); Neutrophils Absolute Auto 18.4 K/mm3 (1.3-6.7); Neutrophils Percent Auto 86.5 % (45.5-73.1); Platelet Count Result 346 k/mm3 (150-375); Red Blood Count 3.89 M/mm3 (4.2-5.4); Red Cell Distribution Width 18.6 % (11.5-14.5); White Blood Count 21.3 K/mm3 (4.5-10.0)
[2024-06-12 04:34] LABS: Alanine Aminotransferase 78 U/L (6-35); Albumin Level 3.2 g/dL (3.5-5.1); Alkaline Phosphatase 223 U/L (38-126); Anion Gap 9 mmol/L (4-12); Aspartate Amino Transferase 139 U/L (14-36); Bilirubin,Total 1.7 mg/dL (0.2-1.3); Blood Urea Nitrogen 65 mg/dL (7-17); Calcium 10.3 mg/dL (8.4-10.2); Carbon Dioxide 25 mmol/L (22-30); Chloride 99 mmol/L (98-107); Estimated CRCL calculation 29 ml/min; Estimated Glomerular Filt Rate 15; Glucose 180 mg/dL (65-110); Magnesium 2.5 mg/dL (1.6-2.3); Phosphorus 4.2 mg/dL (2.5-4.5); Sodium 133 mmol/L (137-145)
[2024-06-12 04:47] LABS: Anisocytosis 1+; Platelet Estimate Adequate (Adequate); Schistocytes None Seen; Stomatocytes 1+
[2024-06-12 05:37] LABS: Alveolar/Arterial O2 Gradient 146.7 mmHg; Base Excess ABG 0.7 mEq/l (+/-2.0); Carboxyhemoglobin 0.6 % THb (0-2.0); Fractional Inspired Oxygen 40 %; HCO3 ABG 25.9 mEq/l (22.0-26.0); Methemoglobin ABG 0.2 %THb (0-1.5); Oxygen Content ABG 16.1 %vol (16.0-22.0); Oxygen Saturation ABG 96.6 % (95.0-100.0); Oxyhemoglobin 95.8 % THb (90.0-100.0); PCO2 ABG 44.1 mmHg (35.0-45.0); PO2 ABG 87.8 mmHg (80.0-100.0); Reduced Hemoglobin 3.4 %THb (0-5.0); Total Hemoglobin 11.9 g/dL (12.0-18.0); pH ABG 7.387 (7.350-7.450)
[2024-06-12 05:40] LABS: Device VENTILATOR; Modified Allen's Test Pass; Site Drawn ARTLINE
[2024-06-12 05:41] LABS: Arterial Blood Gas PEEP 14 cmH2O; Arterial Blood Gas Tidal Volume 410 ml; Arterial Blood Gas Vent Mode CMV; Arterial Blood Gas Ventilator rate 24 /MIN
[2024-06-12] MEDS: HYDROCORTISONE SODIUM SUCCINATE 100 MG/2 ML VIAL 50 MG IV PUSH (06:23)
[2024-06-12] MEDS: CENTRAL LINE FLUSH 10 ML IV PUSH ×3 (06:24→20:07)
--- NOTE | 2024-06-12 09:06 | P.PNNP_ITS ---
Progress Note: A&P Assessment and Plan (1) JOVI (acute kidney injury): Code(s): N17.9 - Acute kidney failure, unspecified Status: Acute Assessment and Plan: * normal creatinine ~ 1 month ago * admitted with a creatinine of 2.1mg/dl with ongoing worsening noted * etiology not clear but several possibilities: * hemodynamic instability/shock * early sepsis * infection (UTI +/- pneumonia) -- although culture negative to date * hypoxia * SLE flare (?) * other? * evaluation to date noted: * renal ultrasound negative for obstruction * urine eosinophils negative * urine electrolytes pre-renal (in spite of evidence of volume overload) * CPK low * moderate proteinuria (~ 600mg) * UA with blood and protein (and negative urine culture) * complements normal (arguing against lupus flare) * initiated on dialysis yesterday due to worsening respiratory status and volume overload * HD on 06/05, 06/06 and 06/08 * DUF on 06/07 and 06/09 * HD yesterday * plan DUF today * follow repeat labs and UOP for potential renal recovery (2) Acute respiratory failure: Code(s): J96.00 - Acute respiratory failure, unspecified whether with hypoxia or hypercapnia Status: Acute Assessment and Plan: * intubated on 06/05: * failed BiPAP therapy * impending respiratory failure (given hypoxia + hypercapnea) * suspect secondary to pulmonary edema, pneumonia, and possible early ARDS * remains on ventilator support * on bronchodilators and steroids * fluid removal with dialysis * follow respiratory status (3) Septic shock: Code(s): A41.9 - Sepsis, unspecified organism; R65.21 - Severe sepsis with septic shock Status: Acute Assessment and Plan: * possible related to pneumonia versus UTI * initiated on vasopressor therapy * follow culture data * 06/06 blood culture with E.coli and Stap epi * urine culture negative * on antibiotics * stress dose steroids - being weaned * on midodrine * follow trend of hemodynamics (4) Pulmonary edema: Code(s): J81.1 - Chronic pulmonary edema Status: Acute Assessment and Plan: * contributing to #2 * secondary to JOVI/ARF but ARDS possibly playing a role * this is likely related to acute kidney injury and ARDS * fluid removal with dialysis as tolerated (5) SLE (systemic lupus erythematosus): Code(s): M32.9 - Systemic lupus erythematosus, unspecified Status: Acute Assessment and Plan: * ? 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 Subjective Date/time seen: 06/12/24 09:06 Interval history: Follow-up for acute kidney injury/acute renal failure. Tolerated dialysis treatment yesterday with 3L fluid removal with tentative plan for session of dry ultrafiltration today for further fluid removal; remains on ventilator support (intubated/sedated) but mentation remains stable; remains on levophed gtt for BP support; no other issues/events overnight or earlier this morning. Exam Narrative: General: large female intubated/sedated on mechanical ventilator Heart: normal S1 and S2; no rub Lungs: coarse breath sounds; decreased at bases Abdomen: obese but soft, nontender, nondistended, positive bowel sounds Extremities: no cyanosis or clubbing; 2 - 3+ edema Skin: warm and dry Objective Data Vital Signs Vital Signs: Vital Signs Temp Pulse Resp BP Pulse Ox O2 Del Method FiO2 06/12/24 09:00 97.4 F L 70 22 H 124/56 L Mechanical Ventilation 40 06/12/24 08:00 69 24 H 06/12/24 08:00 69 24 H 06/12/24 08:32 69 125/55 L 06/12/24 08:00 69 128/59 L 06/12/24 08:00 97.7 F 69 24 H 128/59 L 94 06/12/24 07:58 70 06/12/24 07:44 68 24 H 06/12/24 07:40 68 96 Mechanical Ventilation 40 06/12/24 06:45 70 120/39 L 06/12/24 06:25 67 24 H 06/12/24 06:00 67 24 H 06/12/24 06:00 67 113/35 L 06/12/24 06:00 97.3 F L 67 24 H 116/36 L 95 06/12/24 06:00 67 06/12/24 05:21 70 95 Mechanical Ventilation 40 06/12/24 05:00 72 24 H 95/16 L 93 06/12/24 04:00 97.3 F L 67 24 H 116/39 L 98 06/12/24 04:00 67 24 H 06/12/24 04:00 67 24 H 06/12/24 02:00 65 24 H 06/12/24 02:00 66 24 H 06/12/24 05:19 70 112/36 L 06/12/24 04:00 68 95/46 L 06/12/24 03:58 40 06/12/24 03:57 67 24 H 96 Mechanical Ventilation 40 06/12/24 03:55 67 06/12/24 03:12 66 115/38 L 06/12/24 02:34 66 115/38 L 06/12/24 02:48 68 24 H 06/12/24 02:42 69 24 H 06/12/24 02:42 69 96 Mechanical Ventilation 40 06/12/24 02:00 70 123/45 L 06/12/24 02:00 98.1 F 71 24 H 129/46 L 95 06/12/24 01:53 67 06/12/24 00:00 65 24 H 06/12/24 00:00 65 24 H 06/12/24 00:00 64 118/40 L 06/12/24 00:00 98.2 F 64 24 H 113/39 L 97 06/12/24 00:00 40 06/12/24 00:00 64 24 H 95 Mechanical Ventilation 40 06/12/24 00:00 64 06/11/24 23:14 63 95 Mechanical Ventilation 40 06/11/24 22:00 65 24 H 06/11/24 22:00 65 24 H 06/11/24 22:00 65 124/42 L 06/11/24 22:00 97.6 F 65 24 H 124/65 97 06/11/24 21:54 73 06/11/24 20:00 65 24 H 06/11/24 20:00 65 24 H 06/11/24 20:00 67 119/43 L 06/11/24 21:03 69 06/11/24 20:49 67 24 H 06/11/24 20:40 97 24 H 06/11/24 20:40 97 95 Mechanical Ventilation 40 06/11/24 19:44 97.6 F 62 24 H 116/43 L 94 06/11/24 19:44 40 06/11/24 19:43 62 19 94 Mechanical Ventilation 40 06/11/24 19:41 62 06/11/24 18:00 63 06/11/24 18:00 65 19 123/52 L 94 06/11/24 17:58 62 95 Mechanical Ventilation 40 06/11/24 18:00 62 24 H 06/11/24 18:00 62 24 H 06/11/24 18:00 62 125/47 L 06/11/24 16:15 63 116/45 L 06/11/24 16:00 98.0 F 63 24 H 117/44 L 96 06/11/24 16:00 62 06/11/24 16:00 62 24 H 96 Mechanical Ventilation 45 06/11/24 16:00 45 06/11/24 16:00 63 24 H 06/11/24 16:00 64 24 H 06/11/24 15:57 64 98/35 L 06/11/24 15:00 63 119/45 L 06/11/24 14:45 63 118/44 L 06/11/24 14:30 64 127/48 L 06/11/24 15:19 62 24 H 06/11/24 14:55 61 24 H 06/11/24 15:14 65 96 Mechanical Ventilation 45 06/11/24 14:20 64 123/48 L 06/11/24 14:00 63 24 H 124/48 L 95 06/11/24 14:00 64 06/11/24 14:00 64 24 H 06/11/24 14:00 64 24 H 06/11/24 14:00 64 128/49 L 06/11/24 13:45 65 125/48 L 06/11/24 13:30 66 129/50 L 06/11/24 13:15 66 128/50 L 06/11/24 13:10 67 126/50 L 06/11/24 13:05 67 127/49 L 06/11/24 13:05 67 127/49 L 06/11/24 13:00 69 122/47 L 06/11/24 12:45 68 121/40 L 06/11/24 12:30 72 125/43 L 06/11/24 12:15 71 124/48 L 06/11/24 12:00 78 118/49 L 06/11/24 12:00 70 06/11/24 12:00 72 24 H 06/11/24 12:00 79 24 H 06/11/24 12:00 45 06/11/24 12:00 72 24 H 94 Mechanical Ventilation 45 06/11/24 12:00 98.0 F 72 24 H 117/48 L 95 06/11/24 11:53 97.7 F 73 24 H 118/46 L 94 06/11/24 11:40 73 113/44 L 06/11/24 11:30 71 114/46 L 06/11/24 11:17 70 121/47 L Intake/Output Intake/Output: Intake & Output 06/09/24 06/10/24 06/11/24 06/12/24 23:59 23:59 23:59 23:59 Intake Total 1063.9 1873.1 1876.8 851.0 Output Total 3150 800 3600 100 Balance -2086.1 1073.1 -1723.2 751.0 Meds/Results Medications: Active Medications Generic Name Dose Route Start Last Admin Trade Name Freq PRN Reason Stop Dose Admin Acetaminophen 650 mg 06/07/24 21:53 06/07/24 22:30 Acetaminophen Elixir 325 Mg/10.15 Ml Udc PO 650 mg Q6H PRN Administration Mild Pain (1-3) or Fever Albuterol/Ipratropium 3 ml 06/05/24 11:15 06/12/24 07:32 Ipratropium 0.5 Mg/Albuterol Sulfate 2.5 Mg Ampul.Neb 3 Ml INHALATION 3 ml Q6HRT JOHN Administration Amiodarone HCl 200 mg 06/02/24 21:00 06/11/24 21:03 Amiodarone Hcl 200 Mg Tablet PO 200 mg Q12HR JOHN Administration Apixaban 5 mg 06/06/24 09:30 06/11/24 21:03 Apixaban 5 Mg Tablet PO 5 mg Q12HR JOHN Administration Dextrose 12.5 gm 06/05/24 11:46 Dextrose 50% 25 Gm/50 Ml Syringe IV PUSH PRN PRN Hypoglycemia Protocol Flecainide Acetate 100 mg 06/02/24 21:00 06/08/24 10:26 Flecainide Acetate 100 Mg Tablet PO Not Given Q12HR JOHN Gabapentin 200 mg 06/02/24 22:00 06/04/24 21:07 Gabapentin 100 Mg Capsule PO 200 mg Q8HR JOHN Administration Glucagon 1 mg 06/05/24 11:46 Glucagon For Inj 1 Mg Vial IM PRN PRN Hypoglycemia Protocol Glucose 15 gm 06/05/24 11:46 Glucose Oral Gel 15 Gm Of Glucse In 37.5 Gm Tube PO PRN PRN Hypoglycemia Protocol Hydrocortisone Sodium Succinate 50 mg 06/12/24 06:00 06/12/24 06:23 Hydrocortisone Sodium Succinate 100 Mg/2 Ml Vial IV PUSH 06/13/24 06:01 50 mg DAILY@0600 JOHN Administration Norepinephrine Bitartrate 8 mg in 250 mls @ 26.25 mls/hr 06/05/24 00:35 06/12/24 10:00 Levophed 8 Mg/D5w 250 Ml IV CONT 14 mcg/min .Q9H32M JOHN 26.25 mls/hr Titration Protocol 14 MCG/MIN Fentanyl Citrate 2,500 mcg in 250 mls @ 5 mls/hr 06/05/24 08:35 06/12/24 10:0 0 Fentanyl 2,500 Mcg/Ns 250 Ml IV CONT 50 mcg/hr .Q50H JOHN 5 mls/hr Titration Protocol 50 MCG/HR Midazolam HCl 100 mg in 100 mls @ 1 mls/hr 06/05/24 08:35 06/12/24 10:43 Versed 100 Mg/Ns 100 Ml IV CONT 1 mg/hr .Q72H JOHN 1 mls/hr Titration Protocol 1 MG/HR Dextrose 1,000 mls @ 100 mls/hr 06/05/24 11:46 Dextrose 5% 1,000 Ml IVPB PRN PRN Hypoglycemia Protocol Cefepime HCl 1 gm in 50 mls @ 100 mls/hr 06/06/24 16:00 06/11/24 17:42 Maxipime 1 Gm/Ns 50 Ml IVPB 06/12/24 23:59 Infused Q24H JOHN Infusion Albumin Human 50 mls @ 999 mls/hr 06/08/24 09:50 Albutein IVPB 07/08/24 09:49 Q10M PRN HYPOTENSION Insulin Aspart 3 - 6 units 06/05/24 12:00 06/12/24 06:23 Insulin Aspart (*Bkc) 100 Units/Ml SUB-Q Not Given Q6HR [facility] Protocol Midodrine 10 mg 06/05/24 09:00 06/11/24 17:03 Midodrine Hcl 10 Mg Tablet PO 10 mg TID JOHN Administration Multi-Ingred Cream/Lotion/Oil/Oint 1 applic 06/05/24 09:00 06/11/24 21:03 Mineral Oil/White Petrolatum Ointment EACH EYE 1 applic Q12HR [facility] Administration Ondansetron HCl 4 mg 06/11/24 07:47 06/11/24 13:40 Ondansetron Inj 4 Mg/2 Ml Vial IV PUSH 4 mg Q6H PRN Administration Nausea And Vomiting Pantoprazole Sodium 40 mg 06/06/24 09:00 06/11/24 21:03 Pantoprazole Sodium Iv 40 Mg Vial IV PUSH 40 mg Q12HR [facility] Administration Fluticasone/Salmeterol 2 puff 06/03/24 08:00 06/09/24 13:25 Fluticasone/Salmeterol 115-21 Mcg Inhaler 1 Puff INHALATION Not Given Q12HRT [facility] Sodium Chloride 10 ml 06/05/24 06:00 06/12/24 06:24 Central Line Flush IV PUSH 10 ml Q8HR JOHN Administration Sodium Chloride 20 ml 06/05/24 03:12 Central Line Flush IV PUSH PRN PRN after blood draws Umeclidinium Sarepta 1 puff 06/03/24 08:00 06/09/24 13:26 Umeclidinium Sarepta 62.5 Mcg Ellipta INHALATION Not Given DAILYRT [facility] Radiology Results: ITS Impressions Renal Ultrasound 06/04/24 15:06 IMPRESSION: 1. Normal kidneys. No hydronephrosis. Chest/Abdomen/Pelvis CT 06/04/24 19:12 IMPRESSION: 1. Diffuse lung disease, consistent with pulmonary edema versus pneumonia. 2. Moderate volume of ascites. Venous Doppler Study 06/07/24 17:01 IMPRESSION: 1. No deep venous thrombosis. Abdomen Ultrasound 06/10/24 14:47 IMPRESSION: Fat infiltration. Enlarged left lobe of the liver. Slightly thickened wall of the gallbladder. Trace of ascites. Otherwise, normal Limited ultrasound of the abdomen. Abdomen X-Ray 06/11/24 07:58 Impression: Limited exam. NG tube is in satisfactory position. Chest X-Ray 06/12/24 06:06 IMPRESSION: 1. Diffuse lung disease with improvement at right lung base, consistent with pulmonary edema versus pneumonia. 2. Cardiomegaly. Labs Labs: Laboratory Tests 06/12/24 04:09 06/12/24 04:09 Calcium 10.3 H Phosphorus 4.2 Magnesium 2.5 H Total Bilirubin 1.7 H AST 139 H ALT 78 H Alkaline Phosphatase 223 H Total Protein 7.0 Albumin 3.2 L Microbiology 06/06/24 07:37 Blood Blood Culture - Final
--- NOTE | 2024-06-12 09:50 | WPDINTPN ---
Progress Note: A&P Assessment and Plan (1) Acute respiratory failure: Code(s): J96.00 - Acute respiratory failure, unspecified whether with hypoxia or hypercapnia Status: Acute Assessment and Plan: Patient with increasing oxygen requirements in the last 24 hours, brought to the ICU after midnight on 06/05/2024, chest x-ray showed bilateral diffuse pulmonary infiltrates/pulmonary edema. Patient was placed on BiPAP. ABG showed hypercapnic and hypoxemic respiratory failure -etiology likely related to pulmonary edema, pneumonia, ARDS -06/05: patient intubated for impending respiratory failure. Intubation was slightly challenging secondary to body habitus, small mouth, large tongue, redundant tissue in the hypopharynx and anterior vocal cords requiring cricoid pressure and use of glide scope. -patient placed on CMV mode of ventilation, peep of 14, 40% FiO2, peep wean to 12 -chest x-ray reviewed and advance ET tube by 2 cm. -continue bronchodilators - fentanyl and Versed infusion for analgosedation, will maintain RASS of -2 -continue dialysis for fluid removal (2) Septic shock: Code(s): A41.9 - Sepsis, unspecified organism; R65.21 - Severe sepsis with septic shock Status: Acute Assessment and Plan: Septic shock could be related to UTI, pneumonia -patient was hypotensive in the intermediate Unit and was transferred to the ICU which she received fluids, albumin -continue norepinephrine, will maintain MAP > 65 mmHg or SBP > 100 mmHg adequate end organ perfusion -off vasopressin since 06/06/2024 evening -off vancomycin -continue cefepime for a total of 7 days -fluconazole was discontinued given her renal dysfunction -wean stress dose steroids -continue midodrine 06/05/2024: Echocardiogram Summary 1. Left ventricular chamber dimension is normal. 2. Left ventricular systolic function is normal, estimated at 65-70%. 3. The left ventricular diastolic function is grade I diastolic dysfunction. 4. Right ventricular chamber dimension is moderately enlarged. 5. Right ventricular systolic function is normal. 6. Left atrial chamber dimension is moderately enlarged. 7. Right atrial chamber dimension is moderately enlarged. 8. There is mild to moderate tricuspid valve regurgitation. (3) JOVI (acute kidney injury): Code(s): N17.9 - Acute kidney failure, unspecified Status: Acute Assessment and Plan: Patient with acute kidney injury, this morning her creatinine is 4.60 (creatinine on admission on 06/02/2024 was 2.10 and her creatinine on 04/26/2024 was 0.90) -etiology for acute kidney injury could be multifactorial, hypotension, shock, sepsis, UTI/pneumonia, hypoxia,? SLE flare, CHF, -CK levels are within normal limits -urine eosinophils were negative -urine electrolytes showed prerenal picture, patient seems to be volume overloaded -was given IV fluids and albumin overnight, will hold fluids for now -discussed with distribution a class lineman at [facility], feels that the patient is unstable to be transferred at this time for CRRT, recommended conventional dialysis. -discussed with risk reduction counselor at [facility], agrees to conventional dialysis at this time -06/05: dialysis catheter was placed in the right IJ and exchange for the central line -06/05: Initiated dialysis, with 3000 mL of fluid removal -06/06: Dialysis with 3000 mL in fluid removal -06/07: Dialysis with 3700 mL in fluid removal -06/08: Dialysis with 2900 mL in fluid removal -06/09: Dialysis with 3000 mL in fluid removal -06/10: No dialysis -06/12: Discussed with nephrology. Plan to dialyze patient again today (4) Pulmonary edema: Code(s): J81.1 - Chronic pulmonary edema Status: Acute Assessment and Plan: Pulmonary edema likely related to acute kidney injury, ARDS, -did not respond to Bumex -continue fluid removal with dialysis (5) Type 2 diabetes mellitus: Code(s): E11.9 - Type 2 diabetes mellitus without complications Status: Acute Assessment and Plan: SSI and accucheks HbA1C is 5.7 this admission (6) Afib: Code(s): I48.91 - Unspecified atrial fibrillation Status: Acute Assessment and Plan: continue amiodarone - flecainide was stopped (7) SLE (systemic lupus erythematosus): Code(s): M32.9 - Systemic lupus erythematosus, unspecified Status: Acute Assessment and Plan: ? SLE flare Weaning steroids (8) Liver cirrhosis secondary to HOFFMANN: Code(s): K75.81 - Nonalcoholic steatohepatitis (HOFFMANN); K74.60 - Unspecified cirrhosis of liver Status: Acute Assessment and Plan: Continues to have mild elevation in LFTs and bilirubin which is stable 06/10/2024: RUQ ultrasound: Fat infiltration. Enlarged left lobe of the liver. Slightly thickened wall of the gallbladder. Trace of ascites. Otherwise, normal Limited ultrasound of the abdomen. -06/10/2024: Hepatitis panel is negative -continue to monitor (9) GERD (gastroesophageal reflux disease): Code(s): K21.9 - Gastro-esophageal reflux disease without esophagitis Status: Acute Assessment and Plan: Continue Protonix (10) Morbid obesity with BMI of 50.0-59.9, adult: Code(s): E66.01 - Morbid (severe) obesity due to excess calories; Z68.43 - Body mass index [BMI] 50.0-59.9, adult Status: Acute Assessment and Plan: Once extubated she will need lifestyle changes Plan DVT prophylaxis: Eliquis Stress ulcer prophylaxis: Protonix Nutrition: Tube feeds at goal and tolerating Code Status: Full code Critical Care Time Spent: 30 minutes Due to a high probability of clinically significant, life threatening deterioration, the patient required my highest level of preparedness to intervene emergently and I personally spent this critical care time directly and personally managing the patient. This critical care time included obtaining a history; examining the patient; pulse oximetry; ordering and review of studies; arranging urgent treatment with development of a management plan; evaluation of patient's response to treatment; frequent reassessment; and discussions with other providers. It was exclusive of separately billable procedures and treating other patients and teaching time. Please see Assessment and Plan section and the rest of the note for further information on patient assessment and treatment This dictation may have been done utilizing a voice recognition system. Attempts have been made to correct errors. However, there may be uncorrected grammatical, spelling, and recognitions errors present. Subjective Date/time seen: 06/12/24 Overnight events reviewed. Afebrile Continues to be on mechanical ventilation 40% FiO2 and 14 of PEEP Tolerating tube feeds Awake and follows commands despite sedation. Complains of pain in abdomen. Other Vitals acceptable Review of Systems Review of Systems: ROS unobtainable: Yes unobtainable due to endotracheal tube, unobtainable due to medical condition and unobtainable due to mental status Exam Narrative: General: Morbidly obese female currently intubated and sedated in no acute distress HEENT:? Pupils equal and reactive bilaterally, sclera is clear, ETT in place Neck:, short and thick neck, Respiratory:? Decreased and coarse breath sounds bilaterally, no wheezing, Cardiac:? S1-S2 is normal, regular rate and rhythm Abdomen:? Morbid obesity, soft, hypoactive bowel sounds tenderness in right upper quadrant Extremities:? Bilateral lower extremity pitting edema improving, wrinkling of skin on the feet are noted, palpable pedal pulses. Right calf erythema has improved, Neuro:? Patient is intubated, sedated, opens her eyes, follows simple commands in all extremities and nods to questions Skin:? Erythema in the intertriginous region and under her pannus, skin is dry and warm Psych:? Unable to assess at this time Objective Data Vital Signs Vital Signs: Vital Signs - 24 hr 06/11/24 10:00 06/11/24 10:15 06/11/24 10:30 Temperature Pulse Rate 69 71 73 Respiratory Rate Blood Pressure 103/40 L 105/41 L 125/51 L Pulse Oximetry Oxygen Delivery Fraction of Inspired Oxygen 06/11/24 10:45 06/11/24 11:00 06/11/24 11:17 Temperature Pulse Rate 70 66 70 Respiratory Rate Blood Pressure 142/59 H 130/51 L 121/47 L Pulse Oximetry Oxygen Delivery Fraction of Inspired Oxygen 06/11/24 11:30 06/11/24 11:40 06/11/24 11:53 Temperature 36.5 C Pulse Rate 71 73 73 Respiratory Rate 24 H Blood Pressure 114/46 L 113/44 L 118/46 L Pulse Oximetry 94 Oxygen Delivery Fraction of Inspired Oxygen 06/11/24 10:00 06/11/24 10:00 06/11/24 12:00 Temperature 36.7 C Pulse Rate 72 66 72 Respiratory Rate 23 H 24 H Blood Pressure 124/49 L 117/48 L Pulse Oximetry 95 95 Oxygen Delivery Fraction of Inspired Oxygen 06/11/24 12:00 06/11/24 12:00 06/11/24 10:00 Temperature Pulse Rate 72 66 Respiratory Rate 24 H 24 H Blood Pressure Pulse Oximetry 94 Oxygen Delivery Mechanical Ventilation Fraction of Inspired Oxygen 45 45 06/11/24 10:00 06/11/24 12:00 06/11/24 12:00 Temperature Pulse Rate 66 79 72 Respiratory Rate 24 H 24 H 24 H Blood Pressure Pulse Oximetry Oxygen Delivery Fraction of Inspired Oxygen 06/11/24 12:00 06/11/24 10:00 06/11/24 10:10 Temperature Pulse Rate 70 66 73 Respiratory Rate Blood Pressure 107/41 L 77/29 L Pulse Oximetry Oxygen Delivery Fraction of Inspired Oxygen 06/11/24 10:15 06/11/24 10:20 06/11/24 10:30 Temperature Pulse Rate 71 70 73 Respiratory Rate Blood Pressure 103/40 L 108/43 L 128/54 L Pulse Oximetry Oxygen Delivery Fraction of Inspired Oxygen 06/11/24 10:45 06/11/24 11:00 06/11/24 12:00 Temperature Pulse Rate 71 66 78 Respiratory Rate Blood Pressure 140/59 L 126/50 L 118/49 L Pulse Oximetry Oxygen Delivery Fraction of Inspired Oxygen 06/11/24 12:15 06/11/24 12:30 06/11/24 12:45 Temperature Pulse Rate 71 72 68 Respiratory Rate Blood Pressure 124/48 L 125/43 L 121/40 L Pulse Oximetry Oxygen Delivery Fraction of Inspired Oxygen 06/11/24 13:00 06/11/24 13:05 06/11/24 13:05 Temperature Pulse Rate 69 67 67 Respiratory Rate Blood Pressure 122/47 L 127/49 L 127/49 L Pulse Oximetry Oxygen Delivery Fraction of Inspired Oxygen 06/11/24 13:10 06/11/24 13:15 06/11/24 13:30 Temperature Pulse Rate 67 66 66 Respiratory Rate Blood Pressure 126/50 L 128/50 L 129/50 L Pulse Oximetry Oxygen Delivery Fraction of Inspired Oxygen 06/11/24 13:45 06/11/24 14:00 06/11/24 14:00 Temperature Pulse Rate 65 64 64 Respiratory Rate 24 H Blood Pressure 125/48 L 128/49 L Pulse Oximetry Oxygen Delivery Fraction of Inspired Oxygen 06/11/24 14:00 06/11/24 14:00 06/11/24 14:00 Temperature Pulse Rate 64 64 63 Respiratory Rate 24 H 24 H Blood Pressure 124/48 L Pulse Oximetry 95 Oxygen Delivery Fraction of Inspired Oxygen 06/11/24 14:20 06/11/24 15:14 06/11/24 14:55 Temperature Pulse Rate 64 65 61 Respiratory Rate 24 H Blood Pressure 123/48 L Pulse Oximetry 96 Oxygen Delivery Mechanical Ventilation Fraction of Inspired Oxygen 45 06/11/24 15:19 06/11/24 14:30 06/11/24 14:45 Temperature Pulse Rate 62 64 63 Respiratory Rate 24 H Blood Pressure 127/48 L 118/44 L Pulse Oximetry Oxygen Delivery Fraction of Inspired Oxygen 06/11/24 15:00 06/11/24 15:57 06/11/24 16:00 Temperature Pulse Rate 63 64 64 Respiratory Rate 24 H Blood Pressure 119/45 L 98/35 L Pulse Oximetry Oxygen Delivery Fraction of Inspired Oxygen 06/11/24 16:00 06/11/24 16:00 06/11/24 16:00 Temperature Pulse Rate 63 62 Respiratory Rate 24 H 24 H Blood Pressure Pulse Oximetry 96 Oxygen Delivery Mechanical Ventilation Fraction of Inspired Oxygen 45 45 06/11/24 16:00 06/11/24 16:00 06/11/24 16:15 Temperature 36.7 C Pulse Rate 62 63 63 Respiratory Rate 24 H Blood Pressure 117/44 L 116/45 L Pulse Oximetry 96 Oxygen Delivery Fraction of Inspired Oxygen 06/11/24 18:00 06/11/24 18:00 06/11/24 18:00 Temperature Pulse Rate 62 62 62 Respiratory Rate 24 H 24 H Blood Pressure 125/47 L Pulse Oximetry Oxygen Delivery Fraction of Inspired Oxygen 06/11/24 17:58 06/11/24 18:00 06/11/24 18:00 Temperature Pulse Rate 62 65 63 Respiratory Rate 19 Blood Pressure 123/52 L Pulse Oximetry 95 94 Oxygen Delivery Mechanical Ventilation Fraction of Inspired Oxygen 40 06/11/24 19:41 06/11/24 19:43 06/11/24 19:44 Temperature Pulse Rate 62 62 Respiratory Rate 19 Blood Pressure Pulse Oximetry 94 Oxygen Delivery Mechanical Ventilation Fraction of Inspired Oxygen 40 40 06/11/24 19:44 06/11/24 20:40 06/11/24 20:40 Temperature 36.4 C Pulse Rate 62 97 97 Respiratory Rate 24 H 24 H Blood Pressure 116/43 L Pulse Oximetry 94 95 Oxygen Delivery Mechanical Ventilation Fraction of Inspired Oxygen 40 06/11/24 20:49 06/11/24 21:03 06/11/24 20:00 Temperature Pulse Rate 67 69 67 Respiratory Rate 24 H Blood Pressure 119/43 L Pulse Oximetry Oxygen Delivery Fraction of Inspired Oxygen 06/11/24 20:00 06/11/24 20:00 06/11/24 21:54 Temperature Pulse Rate 65 65 73 Respiratory Rate 24 H 24 H Blood Pressure Pulse Oximetry Oxygen Delivery Fraction of Inspired Oxygen 06/11/24 22:00 06/11/24 22:00 06/11/24 22:00 Temperature 36.4 C Pulse Rate 65 65 65 Respiratory Rate 24 H 24 H Blood Pressure 124/65 124/42 L Pulse Oximetry 97 Oxygen Delivery Fraction of Inspired Oxygen 06/11/24 22:00 06/11/24 23:14 06/12/24 00:00 Temperature Pulse Rate 65 63 64 Respiratory Rate 24 H Blood Pressure Pulse Oximetry 95 Oxygen Delivery Mechanical Ventilation Fraction of Inspired Oxygen 40 06/12/24 00:00 06/12/24 00:00 06/12/24 00:00 Temperature 36.8 C Pulse Rate 64 64 Respiratory Rate 24 H 24 H Blood Pressure 113/39 L Pulse Oximetry 95 97 Oxygen Delivery Mechanical Ventilation Fraction of Inspired Oxygen 40 40 06/12/24 00:00 06/12/24 00:00 06/12/24 00:00 Temperature Pulse Rate 64 65 65 Respiratory Rate 24 H 24 H Blood Pressure 118/40 L Pulse Oximetry Oxygen Delivery Fraction of Inspired Oxygen 06/12/24 01:53 06/12/24 02:00 06/12/24 02:00 Temperature 36.7 C Pulse Rate 67 71 70 Respiratory Rate 24 H Blood Pressure 129/46 L 123/45 L Pulse Oximetry 95 Oxygen Delivery Fraction of Inspired Oxygen 06/12/24 02:42 06/12/24 02:42 06/12/24 02:48 Temperature Pulse Rate 69 69 68 Respiratory Rate 24 H 24 H Blood Pressure Pulse Oximetry 96 Oxygen Delivery Mechanical Ventilation Fraction of Inspired Oxygen 40 06/12/24 02:34 06/12/24 03:12 06/12/24 03:55 Temperature Pulse Rate 66 66 67 Respiratory Rate Blood Pressure 115/38 L 115/38 L Pulse Oximetry Oxygen Delivery Fraction of Inspired Oxygen 06/12/24 03:57 06/12/24 03:58 06/12/24 04:00 Temperature Pulse Rate 67 68 Respiratory Rate 24 H Blood Pressure 95/46 L Pulse Oximetry 96 Oxygen Delivery Mechanical Ventilation Fraction of Inspired Oxygen 40 40 06/12/24 05:19 06/12/24 02:00 06/12/24 02:00 Temperature Pulse Rate 70 66 65 Respiratory Rate 24 H 24 H Blood Pressure 112/36 L Pulse Oximetry Oxygen Delivery Fraction of Inspired Oxygen 06/12/24 04:00 06/12/24 04:00 06/12/24 04:00 Temperature 36.3 C L Pulse Rate 67 67 67 Respiratory Rate 24 H 24 H 24 H Blood Pressure 116/39 L Pulse Oximetry 98 Oxygen Delivery Fraction of Inspired Oxygen 06/12/24 05:00 06/12/24 05:21 06/12/24 06:00 Temperature Pulse Rate 72 70 67 Respiratory Rate 24 H Blood Pressure 95/16 L Pulse Oximetry 93 95 Oxygen Delivery Mechanical Ventilation Fraction of Inspired Oxygen 40 06/12/24 06:00 06/12/24 06:00 06/12/24 06:00 Temperature 36.3 C L Pulse Rate 67 67 67 Respiratory Rate 24 H 24 H Blood Pressure 116/36 L 113/35 L Pulse Oximetry 95 Oxygen Delivery Fraction of Inspired Oxygen 06/12/24 06:25 06/12/24 06:45 06/12/24 07:40 Temperature Pulse Rate 67 70 68 Respiratory Rate 24 H Blood Pressure 120/39 L Pulse Oximetry 96 Oxygen Delivery Mechanical Ventilation Fraction of Inspired Oxygen 40 06/12/24 07:44 06/12/24 07:58 06/12/24 08:00 Temperature 36.5 C Pulse Rate 68 70 69 Respiratory Rate 24 H 24 H Blood Pressure 128/59 L Pulse Oximetry 94 Oxygen Delivery Fraction of Inspired Oxygen 06/12/24 08:00 06/12/24 08:32 06/12/24 08:00 Temperature Pulse Rate 69 69 69 Respiratory Rate 24 H Blood Pressure 128/59 L 125/55 L Pulse Oximetry Oxygen Delivery Fraction of Inspired Oxygen 06/12/24 08:00 Temperature Pulse Rate 69 Respiratory Rate 24 H Blood Pressure Pulse Oximetry Oxygen Delivery Fraction of Inspired Oxygen Intake/Output Intake/Output: Intake & Output 06/09/24 06/10/24 06/11/24 06/12/24 23:59 23:59 23:59 23:59 Intake Total 1063.9 1873.1 1876.8 799.8 Output Total 3150 800 3600 100 Balance -2086.1 1073.1 -1723.2 699.8 Meds/Results Medications: Active Medications Generic Name Dose Route Start Last Admin Trade Name Freq PRN Reason Stop Dose Admin Acetaminophen 650 mg 06/07/24 21:53 06/07/24 22:30 Acetaminophen Elixir 325 Mg/10.15 Ml Udc PO 650 mg Q6H PRN Administration Mild Pain (1-3) or Fever Albuterol/Ipratropium 3 ml 06/05/24 11:15 06/12/24 07:32 Ipratropium 0.5 Mg/Albuterol Sulfate 2.5 Mg Ampul.Neb 3 Ml INHALATION 3 ml Q6HRT JOHN Administration Amiodarone HCl 200 mg 06/02/24 21:00 06/11/24 21:03 Amiodarone Hcl 200 Mg Tablet PO 200 mg Q12HR JOHN Administration Apixaban 5 mg 06/06/24 09:30 06/11/24 21:03 Apixaban 5 Mg Tablet PO 5 mg Q12HR JOHN Administration Dextrose 12.5 gm 06/05/24 11:46 Dextrose 50% 25 Gm/50 Ml Syringe IV PUSH PRN PRN Hypoglycemia Protocol Flecainide Acetate 100 mg 06/02/24 21:00 06/08/24 10:26 Flecainide Acetate 100 Mg Tablet PO Not Given Q12HR JOHN Gabapentin 200 mg 06/02/24 22:00 06/04/24 21:07 Gabapentin 100 Mg Capsule PO 200 mg Q8HR JOHN Administration Glucagon 1 mg 06/05/24 11:46 Glucagon For Inj 1 Mg Vial IM PRN PRN Hypoglycemia Protocol Glucose 15 gm 06/05/24 11:46 Glucose Oral Gel 15 Gm Of Glucse In 37.5 Gm Tube PO PRN PRN Hypoglycemia Protocol Hydrocortisone Sodium Succinate 50 mg 06/12/24 06:00 06/12/24 06:23 Hydrocortisone Sodium Succinate 100 Mg/2 Ml Vial IV PUSH 06/13/24 06:01 50 mg DAILY@0600 JOHN Administration Norepinephrine Bitartrate 8 mg in 250 mls @ 26.25 mls/hr 06/05/24 00:35 06/12/24 08:32 Levophed 8 Mg/D5w 250 Ml IV CONT 14 mcg/min .Q9H32M JOHN 26.25 mls/hr Titration Protocol 14 MCG/MIN Fentanyl Citrate 2,500 mcg in 250 mls @ 5 mls/hr 06/05/24 08:35 06/12/24 08:00 Fentanyl 2,500 Mcg/Ns 250 Ml IV CONT 50 mcg/hr .Q50H JOHN 5 mls/hr Titration Protocol 50 MCG/HR Midazolam HCl 100 mg in 100 mls @ 1 mls/hr 06/05/24 08:35 06/12/24 08:00 Versed 100 Mg/Ns 100 Ml IV CONT 1 mg/hr .Q72H JOHN 1 mls/hr Titration Protocol 1 MG/HR Dextrose 1,000 mls @ 100 mls/hr 06/05/24 11:46 Dextrose 5% 1,000 Ml IVPB PRN PRN Hypoglycemia Protocol Cefepime HCl 1 gm in 50 mls @ 100 mls/hr 06/06/24 16:00 06/11/24 17:42 Maxipime 1 Gm/Ns 50 Ml IVPB 06/12/24 23:59 Infused Q24H JOHN Infusion Albumin Human 50 mls @ 999 mls/hr 06/08/24 09:50 Albutein IVPB 07/08/24 09:49 Q10M PRN HYPOTENSION Sodium Chloride 1,000 mls @ 999 mls/hr 06/12/24 08:51 Normal Saline Iv IV CONT 06/12/24 09:51 .Q1H1M ONE Insulin Aspart 3 - 6 units 06/05/24 12:00 06/12/24 06:23 Insulin Aspart (*Bkc) 100 Units/Ml SUB-Q Not Given Q6HR JOHN Protocol Midodrine 10 mg 06/05/24 09:00 06/11/24 17:03 Midodrine Hcl 10 Mg Tablet PO 10 mg TID JOHN Administration Multi-Ingred Cream/Lotion/Oil/Oint 1 applic 06/05/24 09:00 06/11/24 21:03 Mineral Oil/White Petrolatum Ointment EACH EYE 1 applic Q12HR JOHN Administration Ondansetron HCl 4 mg 06/11/24 07:47 06/11/24 13:40 Ondansetron Inj 4 Mg/2 Ml Vial IV PUSH 4 mg Q6H PRN Administration Nausea And Vomiting Pantoprazole Sodium 40 mg 06/06/24 09:00 06/11/24 21:03 Pantoprazole Sodium Iv 40 Mg Vial IV PUSH 40 mg Q12HR JOHN Administration Fluticasone/Salmeterol 2 puff 06/03/24 08:00 06/09/24 13:25 Fluticasone/Salmeterol 115-21 Mcg Inhaler 1 Puff INHALATION Not Given Q12HRT JOHN Sodium Chloride 10 ml 06/05/24 06:00 06/12/24 06:24 Central Line Flush IV PUSH 10 ml Q8HR JOHN Administration Sodium Chloride 20 ml 06/05/24 03:12 Central Line Flush IV PUSH PRN PRN after blood draws Umeclidinium [place] 1 puff 06/03/24 08:00 06/09/24 13:26 Umeclidinium [place] 62.5 Mcg Ellipta INHALATION Not Given DAILYRT [facility] Radiology Results: ITS Impressions Renal Ultrasound 06/04/24 15:06 IMPRESSION: 1. Normal kidneys. No hydronephrosis. Chest/Abdomen/Pelvis CT 06/04/24 19:12 IMPRESSION: 1. Diffuse lung disease, consistent with pulmonary edema versus pneumonia. 2. Moderate volume of ascites. Venous Doppler Study 06/07/24 17:01 IMPRESSION: 1. No deep venous thrombosis. Abdomen Ultrasound 06/10/24 14:47 IMPRESSION: Fat infiltration. Enlarged left lobe of the liver. Slightly thickened wall of the gallbladder. Trace of ascites. Otherwise, normal Limited ultrasound of the abdomen. Abdomen X-Ray 06/11/24 07:58 Impression: Limited exam. NG tube is in satisfactory position. Chest X-Ray 06/12/24 06:06 IMPRESSION: 1. Diffuse lung disease with improvement at right lung base, consistent with pulmonary edema versus pneumonia. 2. Cardiomegaly. Labs Labs: Laboratory Results - last 24 hr 06/11/24 06/11/24 06/12/24 11:53 18:55 00:03 WBC RBC Hgb Hct MCV MCH MCHC RDW Plt Count MPV Immature Gran % (Auto) Neut % (Auto) Lymph % (Auto) [place] % (Auto) Eos % (Auto) Baso % (Auto) Lymph # (Auto) [place] # (Auto) Eos # (Auto) Baso # (Auto) Abs Immat Gran (auto) Absolute Neuts (auto) Absolute Nucleated RBC Nucleated RBC % Platelet Estimate Anisocytosis Stomatocytes Schistocytes Puncture Site ABG pH ABG pCO2 ABG pO2 ABG PO2/FiO2 Ratio ABG HCO3 ABG O2 Saturation ABG O2 Content ABG Base Excess A-a Gradient Oxyhemoglobin Carboxyhemoglobin Methemoglobin Reduced Hemoglobin Total Hemoglobin O2 Delivery Device O2 Liters/Min Minute Volume Vent Rate Vent Mode FiO2 Tidal Volume PEEP Peak Inspir Pressure Pressure Support Sodium Potassium Chloride Carbon Dioxide Anion Gap BUN Creatinine Estim Creat Clear Calc Estimated GFR Glucose POC Capillary Glucose 184 H 190 H 206 H Calcium Phosphorus Magnesium Total Bilirubin AST ALT Alkaline Phosphatase Total Protein Albumin 06/12/24 06/12/24 04:09 05:22 WBC 21.3 H RBC 3.89 L Hgb 10.8 L Hct 33.7 L MCV 86.6 MCH 27.8 MCHC 32.0 RDW 18.6 H Plt Count 346 MPV 9.5 Immature Gran % (Auto) 1.0 H Neut % (Auto) 86.5 H Lymph % (Auto) 5.0 L [place] % (Auto) 7.2 Eos % (Auto) 0.2 Baso % (Auto) 0.1 L Lymph # (Auto) 1.07 [place] # (Auto) 1.5 H Eos # (Auto) 0.1 Baso # (Auto) 0.0 Abs Immat Gran (auto) 0.21 H Absolute Neuts (auto) 18.4 H Absolute Nucleated RBC 0.000 Nucleated RBC % 0.0 Platelet Estimate Adequate Anisocytosis 1+ Stomatocytes 1+ Schistocytes None seen Puncture Site Artline ABG pH 7.387 ABG pCO2 44.1 ABG pO2 87.8 ABG PO2/FiO2 Ratio 2.20 ABG HCO3 25.9 ABG O2 Saturation 96.6 ABG O2 Content 16.1 ABG Base Excess 0.7 A-a Gradient 146.7 Oxyhemoglobin 95.8 Carboxyhemoglobin 0.6 Methemoglobin 0.2 Reduced Hemoglobin 3.4 Total Hemoglobin 11.9 L O2 Delivery Device Ventilator O2 Liters/Min Not Reportable Minute Volume Not Reportable Vent Rate 24 Vent Mode Cmv FiO2 40 Tidal Volume 410 PEEP 14 Peak Inspir Pressure Not Reportable Pressure Support Not Reportable Sodium 133 L Potassium 4.0 Chloride 99 Carbon Dioxide 25 Anion Gap 9 BUN 65 H D Creatinine 3.30 H Estim Creat Clear Calc 29 Estimated GFR 15 L Glucose 180 H POC Capillary Glucose Calcium 10.3 H Phosphorus 4.2 Magnesium 2.5 H Total Bilirubin 1.7 H AST 139 H ALT 78 H Alkaline Phosphatase 223 H Total Protein 7.0 Albumin 3.2 L Quality VTE Prophylaxis VTE prophylaxis: pharmacologic ordered
[2024-06-12] MEDS: SODIUM CHLORIDE 0.9% IV 1,000 ML 1 ML IV CONT (10:00)
--- NOTE | 2024-06-12 10:45 | PCNFU ---
Nutrition Follow-Up Complete: Suboptimal Energy Intake as related to mechanical ventilator as evidenced by NPO. Goal: Meet estimated nutritional needs We will continue current goal. Pt current nutrition is Nepro at 40ml/hr. Last recorded weight is 172.5 kg, up down from 180.3 kg on admit. Patient is receiving dialysis. Bowel Motility: +BM reported 06/11 Labs Reviewed: Mg 2.5, BUN 65, GFR 15, Cr 3.3,Glu 180, Na 133, Alb 3.2,Hct 33.7,Hgb 10.8 Meds Noted:Versed, Levophed, Fentanyl, Cefepime. Skin: WNL Additional Notes: Patient remains on a mechanical vent. Tube feedings are being tolerated of Nepro at 40 ml/hr with 30 ml water flush q 4 hours. Tube feeding providing 1584 kcal/72 gm protein. Patient receiving Dialysis today. 3 liters removed form dialysis treatment on 06/11. Agree with diet orders. Will monitor weight, labs, skin, meds, diet orders every Tuesday and Tuesday.
[2024-06-12] MEDS: ALBUMIN HUMAN 25% 12.5 GM/50ML 50 ML IVPB (11:35)
[2024-06-12 12:08] LABS: Glucose Point of Care 251 mg/dl (65-105)
[2024-06-12] MEDS: NOREPINEPHRINE 8 MG/D5W 250 ML 8 MG/250 ML BAG 24.38 MG IV CONT (13:46)
[2024-06-12] MEDS: MIDODRINE HCL 10 MG TABLET PO ×2 (13:49→16:35)
[2024-06-12] MEDS: APIXABAN 5 MG TABLET PO ×2 (13:49→20:07)
[2024-06-12] MEDS: PANTOPRAZOLE SODIUM IV 40 MG VIAL IV PUSH ×2 (13:49→20:07)
[2024-06-12] MEDS: AMIODARONE HCL 200 MG TABLET PO ×2 (13:49→20:07)
[2024-06-12 13:52] LABS: Glucose Point of Care 225 mg/dl (65-105)
[2024-06-12] MEDS: MINERAL OIL/WHITE PETROLATUM OINTMENT 1 APPLIC EACH EYE ×2 (14:00→20:08)
--- NOTE | 2024-06-12 15:00 | P.PNIM_ITS ---
Progress Note: A&P Assessment and Plan (1) Acute respiratory failure: Code(s): J96.00 - Acute respiratory failure, unspecified whether with hypoxia or hypercapnia Status: Acute Assessment and Plan: Patient with increasing oxygen requirements in the last 24 hours, brought to the ICU after midnight on 06/05/2024, chest x-ray showed bilateral diffuse pulmonary infiltrates/pulmonary edema. Patient was placed on BiPAP. ABG showed hypercapnic and hypoxemic respiratory failure -etiology likely related to pulmonary edema, pneumonia, ARDS -06/05: patient intubated for impending respiratory failure. Intubation was slightly challenging secondary to body habitus, small mouth, large tongue, redundant tissue in the hypopharynx and anterior vocal cords requiring cricoid pressure and use of glide scope. -patient placed on CMV mode of ventilation, peep of 14, 50% FiO2 -chest x-ray and ABGs reviewed, ventilator adjusted -continue bronchodilators -continue steroids for pneumonia - fentanyl and Versed infusion for analgosedation, will maintain RASS of -2 -daily SBT and SAT -continue dialysis for fluid removal (2) Septic shock: Code(s): A41.9 - Sepsis, unspecified organism; R65.21 - Severe sepsis with septic shock Status: Acute Assessment and Plan: Septic shock could be related to UTI, pneumonia -patient was hypotensive in the intermediate Unit and was transferred to the ICU which she received fluids, albumin -continue norepinephrine, will maintain MAP > 65 mmHg or SBP > 100 mmHg adequate end organ perfusion -off vasopressin since 06/06/2024 evening -patient is on vancomycin and cefepime -fluconazole was discontinued given her renal dysfunction -continue stress dose steroids which is getting weaned -lactic acid has normalized On midodrine And remains on Levophed (3) JOVI (acute kidney injury): Code(s): N17.9 - Acute kidney failure, unspecified Status: Acute Assessment and Plan: Patient with acute kidney injury, this morning her creatinine is 4.60 (creatinine on admission on 06/02/2024 was 2.10 and her creatinine on 04/26/2024 was 0.90) -etiology for acute kidney injury could be multifactorial, hypotension, shock, sepsis, UTI/pneumonia, hypoxia,? SLE flare, CHF, -CK levels are within normal limits -urine eosinophils were negative -urine electrolytes showed prerenal picture, patient seems to be volume overloaded -was given IV fluids and albumin overnight, will hold fluids for now -discussed with strike warfare/missile systems officer at [facility], feels that the patient is unstable to be transferred at this time for CRRT, recommended conventional dialysis. -discussed with solar maintenance technician at [facility], agrees to conventional dialysis at this time -06/05: dialysis catheter was placed in the right IJ and exchange for the central line -06/05: Initiate dialysis, with 3000 mL of fluid removal -06/06: Dialysis with 3000 mL in fluid removal -06/07: Dialysis with 3700 mL in fluid removal 06/08: Dialysis with 2900 mL in fluid removal 06/09: Dialysis with 3 L in fluid removal 06/10: No dialysis 06/11: Dialysis with removal of 3 L 06/12: Ongoing dialysis today Ongoing dialysis per Nephrology (4) Pulmonary edema: Code(s): J81.1 - Chronic pulmonary edema Status: Acute Assessment and Plan: Pulmonary edema likely related to acute kidney injury, ARDS, -did not respond to Bumex -continue fluid removal with dialysis (5) Type 2 diabetes mellitus: Code(s): E11.9 - Type 2 diabetes mellitus without complications Status: Acute Assessment and Plan: SSI and accucheks HbA1C is 5.7 this admission (6) Afib: Code(s): I48.91 - Unspecified atrial fibrillation Status: Acute Assessment and Plan: continue amiodarone Flecainide stopped (7) SLE (systemic lupus erythematosus): Code(s): M32.9 - Systemic lupus erythematosus, unspecified Status: Acute Assessment and Plan: ? SLE flare Continue stress dose steroids (8) Liver cirrhosis secondary to HOFFMANN: Code(s): K75.81 - Nonalcoholic steatohepatitis (HOFFMANN); K74.60 - Unspecified cirrhosis of liver Status: Acute Assessment and Plan: Mild elevation in LFTs, which are improving -continue to monitor (9) GERD (gastroesophageal reflux disease): Code(s): K21.9 - Gastro-esophageal reflux disease without esophagitis Status: Acute Assessment and Plan: Continue Protonix (10) Morbid obesity with BMI of 50.0-59.9, adult: Code(s): E66.01 - Morbid (severe) obesity due to excess calories; Z68.43 - Body mass index [BMI] 50.0-59.9, adult Status: Acute Assessment and Plan: Once extubated she will need lifestyle changes Plan DVT prophylaxis: Eliquis Stress ulcer prophylaxis: Protonix Nutrition: Patient tolerating tube feeds at 20 mL/hour, will increase to goal Code Status: Full code Subjective Date/time seen: 06/12/24 15:00 Interval history: overnight events noted. Patient remains on Levophed. Patient getting dialyzed again today. Remains on ventilator. Review of Systems Review of Systems: ROS unobtainable: Yes unobtainable due to endotracheal tube Exam Narrative: General: Morbidly obese female currently intubated and sedated in no acute distress HEENT:? Pupils equal and reactive bilaterally, sclera is clear, ETT in place Neck:, short and thick neck, Respiratory:? Decreased and coarse breath sounds bilaterally, no wheezing Cardiac:? S1-S2 is normal, regular rate and rhythm Abdomen:? Morbid obesity, soft, hypoactive bowel sounds Extremities:? Bilateral lower extremity pitting edema improving, wrinkling of skin on the feet are noted, palpable pedal pulses. Right calf erythema has improved, Neuro:? Patient is intubated, sedated, opens her eyes, follows simple commands in all extremities and nods to questions Skin:? Erythema in the intertriginous region and under her pannus, skin is dry and warm Psych:? Unable to assess at this time Objective Data Vital Signs Vital Signs: Vital Signs - 24 hr 06/11/24 15:14 06/11/24 15:19 06/11/24 15:57 Temperature Pulse Rate 65 62 64 Respiratory Rate 24 H Blood Pressure 98/35 L Pulse Oximetry 96 Oxygen Delivery Mechanical Ventilation Fraction of Inspired Oxygen 45 06/11/24 16:00 06/11/24 16:00 06/11/24 16:00 Temperature Pulse Rate 64 63 Respiratory Rate 24 H 24 H Blood Pressure Pulse Oximetry Oxygen Delivery Fraction of Inspired Oxygen 45 06/11/24 16:00 06/11/24 16:00 06/11/24 16:00 Temperature 98.0 F Pulse Rate 62 62 63 Respiratory Rate 24 H 24 H Blood Pressure 117/44 L Pulse Oximetry 96 96 Oxygen Delivery Mechanical Ventilation Fraction of Inspired Oxygen 45 06/11/24 16:15 06/11/24 18:00 06/11/24 18:00 Temperature Pulse Rate 63 62 62 Respiratory Rate 24 H Blood Pressure 116/45 L 125/47 L Pulse Oximetry Oxygen Delivery Fraction of Inspired Oxygen 06/11/24 18:00 06/11/24 17:58 06/11/24 18:00 Temperature Pulse Rate 62 62 65 Respiratory Rate 24 H 19 Blood Pressure 123/52 L Pulse Oximetry 95 94 Oxygen Delivery Mechanical Ventilation Fraction of Inspired Oxygen 40 06/11/24 18:00 06/11/24 19:41 06/11/24 19:43 Temperature Pulse Rate 63 62 62 Respiratory Rate 19 Blood Pressure Pulse Oximetry 94 Oxygen Delivery Mechanical Ventilation Fraction of Inspired Oxygen 40 06/11/24 19:44 06/11/24 19:44 06/11/24 20:40 Temperature 97.6 F Pulse Rate 62 97 Respiratory Rate 24 H Blood Pressure 116/43 L Pulse Oximetry 94 95 Oxygen Delivery Mechanical Ventilation Fraction of Inspired Oxygen 40 40 06/11/24 20:40 06/11/24 20:49 06/11/24 21:03 Temperature Pulse Rate 97 67 69 Respiratory Rate 24 H 24 H Blood Pressure Pulse Oximetry Oxygen Delivery Fraction of Inspired Oxygen 06/11/24 20:00 06/11/24 20:00 06/11/24 20:00 Temperature Pulse Rate 67 65 65 Respiratory Rate 24 H 24 H Blood Pressure 119/43 L Pulse Oximetry Oxygen Delivery Fraction of Inspired Oxygen 06/11/24 21:54 06/11/24 22:00 06/11/24 22:00 Temperature 97.6 F Pulse Rate 73 65 65 Respiratory Rate 24 H Blood Pressure 124/65 124/42 L Pulse Oximetry 97 Oxygen Delivery Fraction of Inspired Oxygen 06/11/24 22:00 06/11/24 22:00 06/11/24 23:14 Temperature Pulse Rate 65 65 63 Respiratory Rate 24 H 24 H Blood Pressure Pulse Oximetry 95 Oxygen Delivery Mechanical Ventilation Fraction of Inspired Oxygen 40 06/12/24 00:00 06/12/24 00:00 06/12/24 00:00 Temperature Pulse Rate 64 64 Respiratory Rate 24 H Blood Pressure Pulse Oximetry 95 Oxygen Delivery Mechanical Ventilation Fraction of Inspired Oxygen 40 40 06/12/24 00:00 06/12/24 00:00 06/12/24 00:00 Temperature 98.2 F Pulse Rate 64 64 65 Respiratory Rate 24 H 24 H Blood Pressure 113/39 L 118/40 L Pulse Oximetry 97 Oxygen Delivery Fraction of Inspired Oxygen 06/12/24 00:00 06/12/24 01:53 06/12/24 02:00 Temperature 98.1 F Pulse Rate 65 67 71 Respiratory Rate 24 H 24 H Blood Pressure 129/46 L Pulse Oximetry 95 Oxygen Delivery Fraction of Inspired Oxygen 06/12/24 02:00 06/12/24 02:42 06/12/24 02:42 Temperature Pulse Rate 70 69 69 Respiratory Rate 24 H Blood Pressure 123/45 L Pulse Oximetry 96 Oxygen Delivery Mechanical Ventilation Fraction of Inspired Oxygen 40 06/12/24 02:48 06/12/24 02:34 06/12/24 03:12 Temperature Pulse Rate 68 66 66 Respiratory Rate 24 H Blood Pressure 115/38 L 115/38 L Pulse Oximetry Oxygen Delivery Fraction of Inspired Oxygen 06/12/24 03:55 06/12/24 03:57 06/12/24 03:58 Temperature Pulse Rate 67 67 Respiratory Rate 24 H Blood Pressure Pulse Oximetry 96 Oxygen Delivery Mechanical Ventilation Fraction of Inspired Oxygen 40 40 06/12/24 04:00 06/12/24 05:19 06/12/24 02:00 Temperature Pulse Rate 68 70 66 Respiratory Rate 24 H Blood Pressure 95/46 L 112/36 L Pulse Oximetry Oxygen Delivery Fraction of Inspired Oxygen 06/12/24 02:00 06/12/24 04:00 06/12/24 04:00 Temperature Pulse Rate 65 67 67 Respiratory Rate 24 H 24 H 24 H Blood Pressure Pulse Oximetry Oxygen Delivery Fraction of Inspired Oxygen 06/12/24 04:00 06/12/24 05:00 06/12/24 05:21 Temperature 97.3 F L Pulse Rate 67 72 70 Respiratory Rate 24 H 24 H Blood Pressure 116/39 L 95/16 L Pulse Oximetry 98 93 95 Oxygen Delivery Mechanical Ventilation Fraction of Inspired Oxygen 40 06/12/24 06:00 06/12/24 06:00 06/12/24 06:00 Temperature 97.3 F L Pulse Rate 67 67 67 Respiratory Rate 24 H Blood Pressure 116/36 L 113/35 L Pulse Oximetry 95 Oxygen Delivery Fraction of Inspired Oxygen 06/12/24 06:00 06/12/24 06:25 06/12/24 06:45 Temperature Pulse Rate 67 67 70 Respiratory Rate 24 H 24 H Blood Pressure 120/39 L Pulse Oximetry Oxygen Delivery Fraction of Inspired Oxygen 06/12/24 07:40 06/12/24 07:44 06/12/24 07:58 Temperature Pulse Rate 68 68 70 Respiratory Rate 24 H Blood Pressure Pulse Oximetry 96 Oxygen Delivery Mechanical Ventilation Fraction of Inspired Oxygen 40 06/12/24 08:00 06/12/24 08:00 06/12/24 08:32 Temperature 97.7 F Pulse Rate 69 69 69 Respiratory Rate 24 H Blood Pressure 128/59 L 128/59 L 125/55 L Pulse Oximetry 94 Oxygen Delivery Fraction of Inspired Oxygen 06/12/24 08:00 06/12/24 08:00 06/12/24 10:00 Temperature 97.4 F L Pulse Rate 69 69 69 Respiratory Rate 24 H 24 H 24 H Blood Pressure 124/56 L Pulse Oximetry 98 Oxygen Delivery Fraction of Inspired Oxygen 06/12/24 10:00 06/12/24 10:00 06/12/24 10:07 Temperature 97.4 F L Pulse Rate 70 70 Respiratory Rate 22 H Blood Pressure 124/56 L 133/60 Pulse Oximetry Oxygen Delivery Fraction of Inspired Oxygen 40 06/12/24 10:15 06/12/24 10:30 06/12/24 10:00 Temperature Pulse Rate 69 68 68 Respiratory Rate Blood Pressure 133/62 130/56 L 124/56 L Pulse Oximetry Oxygen Delivery Fraction of Inspired Oxygen 06/12/24 10:00 06/12/24 10:43 06/12/24 08:00 Temperature Pulse Rate 68 68 70 Respiratory Rate 24 H 24 H Blood Pressure Pulse Oximetry Oxygen Delivery Fraction of Inspired Oxygen 06/12/24 08:00 06/12/24 08:00 06/12/24 10:00 Temperature Pulse Rate 69 68 Respiratory Rate 24 H Blood Pressure Pulse Oximetry 96 Oxygen Delivery Mechanical Ventilation Fraction of Inspired Oxygen 40 40 06/12/24 10:45 06/12/24 11:00 06/12/24 11:15 Temperature Pulse Rate 68 70 69 Respiratory Rate Blood Pressure 125/58 L 131/62 116/52 L Pulse Oximetry Oxygen Delivery Fraction of Inspired Oxygen 06/12/24 11:30 06/12/24 11:45 06/12/24 12:00 Temperature Pulse Rate 69 74 77 Respiratory Rate Blood Pressure 97/43 L 106/48 L 114/48 L Pulse Oximetry Oxygen Delivery Fraction of Inspired Oxygen 06/12/24 12:00 06/12/24 12:15 06/12/24 12:45 Temperature 97.7 F Pulse Rate 77 71 67 Respiratory Rate 23 H Blood Pressure 114/48 L 118/60 114/52 L Pulse Oximetry 91 Oxygen Delivery Fraction of Inspired Oxygen 06/12/24 12:30 06/12/24 12:00 06/12/24 12:00 Temperature Pulse Rate 68 74 74 Respiratory Rate 23 H Blood Pressure 124/59 L Pulse Oximetry 92 Oxygen Delivery Mechanical Ventilation Fraction of Inspired Oxygen 40 06/12/24 10:30 06/12/24 13:33 06/12/24 13:40 Temperature Pulse Rate 69 66 63 Respiratory Rate 24 H 24 H Blood Pressure Pulse Oximetry 95 Oxygen Delivery Mechanical Ventilation Fraction of Inspired Oxygen 40 06/12/24 13:32 06/12/24 12:00 06/12/24 13:46 Temperature Pulse Rate 66 77 65 Respiratory Rate Blood Pressure 114/48 L 121/56 L Pulse Oximetry 96 Oxygen Delivery Mechanical Ventilation Fraction of Inspired Oxygen 40 06/12/24 13:46 06/12/24 13:49 06/12/24 14:02 Temperature Pulse Rate 65 64 65 Respiratory Rate Blood Pressure 121/56 L 119/52 L Pulse Oximetry Oxygen Delivery Fraction of Inspired Oxygen 06/12/24 12:00 06/12/24 14:00 06/12/24 12:00 Temperature Pulse Rate 75 68 75 Respiratory Rate 24 H 24 H 24 H Blood Pressure Pulse Oximetry Oxygen Delivery Fraction of Inspired Oxygen 06/12/24 14:00 06/12/24 14:00 06/12/24 14:00 Temperature 97.4 F L Pulse Rate 68 68 66 Respiratory Rate 24 H 24 H Blood Pressure 119/52 L Pulse Oximetry 96 Oxygen Delivery Fraction of Inspired Oxygen Intake/Output Intake/Output: Intake & Output 06/09/24 06/10/24 06/11/24 06/12/24 23:59 23:59 23:59 23:59 Intake Total 1063.9 1873.1 1876.8 954.8 Output Total 3150 800 3600 100 Balance -2086.1 1073.1 -1723.2 854.8 Meds/Results Medications: Active Medications Generic Name Dose Route Start Last Admin Trade Name Freq PRN Reason Stop Dose Admin Acetaminophen 650 mg 06/07/24 21:53 06/07/24 22:30 Acetaminophen Elixir 325 Mg/10.15 Ml Udc PO 650 mg Q6H PRN Administration Mild Pain (1-3) or Fever Albuterol/Ipratropium 3 ml 06/05/24 11:15 06/12/24 13:28 Ipratropium 0.5 Mg/Albuterol Sulfate 2.5 Mg Ampul.Neb 3 Ml INHALATION 3 ml Q6HRT JOHN Administration Amiodarone HCl 200 mg 06/02/24 21:00 06/12/24 13:49 Amiodarone Hcl 200 Mg Tablet PO 200 mg Q12HR JOHN Administration Apixaban 5 mg 06/06/24 09:30 06/12/24 13:49 Apixaban 5 Mg Tablet PO 5 mg Q12HR JOHN Administration Dextrose 12.5 gm 06/05/24 11:46 Dextrose 50% 25 Gm/50 Ml Syringe IV PUSH PRN PRN Hypoglycemia Protocol Flecainide Acetate 100 mg 06/02/24 21:00 06/08/24 10:26 Flecainide Acetate 100 Mg Tablet PO Not Given Q12HR JOHN Gabapentin 200 mg 06/02/24 22:00 06/04/24 21:07 Gabapentin 100 Mg Capsule PO 200 mg Q8HR JOHN Administration Glucagon 1 mg 06/05/24 11:46 Glucagon For Inj 1 Mg Vial IM PRN PRN Hypoglycemia Protocol Glucose 15 gm 06/05/24 11:46 Glucose Oral Gel 15 Gm Of Glucse In 37.5 Gm Tube PO PRN PRN Hypoglycemia Protocol Hydrocortisone Sodium Succinate 50 mg 06/12/24 06:00 06/12/24 06:23 Hydrocortisone Sodium Succinate 100 Mg/2 Ml Vial IV PUSH 06/13/24 06:01 50 mg DAILY@0600 JOHN Administration Norepinephrine Bitartrate 8 mg in 250 mls @ 22.5 mls/hr 06/05/24 00:35 06/12/24 14:02 Levophed 8 Mg/D5w 250 Ml IV CONT 12 mcg/min .Q11H7M JOHN 22.5 mls/hr Titration Protocol 12 MCG/MIN Fentanyl Citrate 2,500 mcg in 250 mls @ 5 mls/hr 06/05/24 08:35 06/12/24 14:00 Fentanyl 2,500 Mcg/Ns 250 Ml IV CONT 50 mcg/hr .Q50H JOHN 5 mls/hr Titration Protocol 50 MCG/HR Midazolam HCl 100 mg in 100 mls @ 1 mls/hr 06/05/24 08:35 06/12/24 14:00 Versed 100 Mg/Ns 100 Ml IV CONT 1 mg/hr .Q72H JOHN 1 mls/hr Titration Protocol 1 MG/HR Dextrose 1,000 mls @ 100 mls/hr 06/05/24 11:46 Dextrose 5% 1,000 Ml IVPB PRN PRN Hypoglycemia Protocol Cefepime HCl 1 gm in 50 mls @ 100 mls/hr 06/06/24 16:00 06/11/24 17:42 Maxipime 1 Gm/Ns 50 Ml IVPB 06/12/24 23:59 Infused Q24H JOHN Infusion Albumin Human 50 mls @ 999 mls/hr 06/08/24 09:50 06/12/24 11:35 Albutein IVPB 07/08/24 09:49 999 mls/hr Q10M PRN Administration HYPOTENSION Insulin Aspart 3 - 6 units 06/05/24 12:00 06/12/24 13:52 Insulin Aspart (*Bkc) 100 Units/Ml SUB-Q 3 units Q6HR JOHN Administration Protocol Midodrine 10 mg 06/05/24 09:00 06/12/24 13:49 Midodrine Hcl 10 Mg Tablet PO 10 mg TID JOHN Administration Multi-Ingred Cream/Lotion/Oil/Oint 1 applic 06/05/24 09:00 06/12/24 14:00 Mineral Oil/White Petrolatum Ointment EACH EYE 1 applic Q12HR JOHN Administration Ondansetron HCl 4 mg 06/11/24 07:47 06/11/24 13:40 Ondansetron Inj 4 Mg/2 Ml Vial IV PUSH 4 mg Q6H PRN Administration Nausea And Vomiting Pantoprazole Sodium 40 mg 06/06/24 09:00 06/12/24 13:49 Pantoprazole Sodium Iv 40 Mg Vial IV PUSH 40 mg Q12HR JOHN Administration Fluticasone/Salmeterol 2 puff 06/03/24 08:00 06/12/24 13:28 Fluticasone/Salmeterol 115-21 Mcg Inhaler 1 Puff INHALATION Not Given Q12HRT JOHN Sodium Chloride 10 ml 06/05/24 06:00 06/12/24 13:49 Central Line Flush IV PUSH 10 ml Q8HR JOHN Administration Sodium Chloride 20 ml 06/05/24 03:12 Central Line Flush IV PUSH PRN PRN after blood draws Umeclidinium [place] 1 puff 06/03/24 08:00 06/12/24 13:28 Umeclidinium [place] 62.5 Mcg Ellipta INHALATION Not Given DAILYRT [facility] Radiology Results: ITS Impressions Renal Ultrasound 06/04/24 15:06 IMPRESSION: 1. Normal kidneys. No hydronephrosis. Chest/Abdomen/Pelvis CT 06/04/24 19:12 IMPRESSION: 1. Diffuse lung disease, consistent with pulmonary edema versus pneumonia. 2. Moderate volume of ascites. Venous Doppler Study 06/07/24 17:01 IMPRESSION: 1. No deep venous thrombosis. Abdomen Ultrasound 06/10/24 14:47 IMPRESSION: Fat infiltration. Enlarged left lobe of the liver. Slightly thickened wall of the gallbladder. Trace of ascites. Otherwise, normal Limited ultrasound of the abdomen. Abdomen X-Ray 06/11/24 07:58 Impression: Limited exam. NG tube is in satisfactory position. Chest X-Ray 06/12/24 06:06 IMPRESSION: 1. Diffuse lung disease with improvement at right lung base, consistent with pulmonary edema versus pneumonia. 2. Cardiomegaly. Labs Labs: Laboratory Results - last 24 hr 06/11/24 06/12/24 06/12/24 18:55 00:03 04:09 WBC 21.3 H RBC 3.89 L Hgb 10.8 L Hct 33.7 L MCV 86.6 MCH 27.8 MCHC 32.0 RDW 18.6 H Plt Count 346 MPV 9.5 Immature Gran % (Auto) 1.0 H Neut % (Auto) 86.5 H Lymph % (Auto) 5.0 L [place] % (Auto) 7.2 Eos % (Auto) 0.2 Baso % (Auto) 0.1 L Lymph # (Auto) 1.07 [place] # (Auto) 1.5 H Eos # (Auto) 0.1 Baso # (Auto) 0.0 Abs Immat Gran (auto) 0.21 H Absolute Neuts (auto) 18.4 H Absolute Nucleated RBC 0.000 Nucleated RBC % 0.0 Platelet Estimate Adequate Anisocytosis 1+ Stomatocytes 1+ Schistocytes None seen Puncture Site ABG pH ABG pCO2 ABG pO2 ABG PO2/FiO2 Ratio ABG HCO3 ABG O2 Saturation ABG O2 Content ABG Base Excess A-a Gradient Oxyhemoglobin Carboxyhemoglobin Methemoglobin Reduced Hemoglobin Total Hemoglobin O2 Delivery Device O2 Liters/Min Minute Volume Vent Rate Vent Mode FiO2 Tidal Volume PEEP Peak Inspir Pressure Pressure Support Sodium 133 L Potassium 4.0 Chloride 99 Carbon Dioxide 25 Anion Gap 9 BUN 65 H D Creatinine 3.30 H Estim Creat Clear Calc 29 Estimated GFR 15 L Glucose 180 H POC Capillary Glucose 190 H 206 H Calcium 10.3 H Phosphorus 4.2 Magnesium 2.5 H Total Bilirubin 1.7 H AST 139 H ALT 78 H Alkaline Phosphatase 223 H Total Protein 7.0 Albumin 3.2 L 06/12/24 06/12/24 06/12/24 05:22 12:02 13:43 WBC RBC Hgb Hct MCV MCH MCHC RDW Plt Count MPV Immature Gran % (Auto) Neut % (Auto) Lymph % (Auto) [place] % (Auto) Eos % (Auto) Baso % (Auto) Lymph # (Auto) [place] # (Auto) Eos # (Auto) Baso # (Auto) Abs Immat Gran (auto) Absolute Neuts (auto) Absolute Nucleated RBC Nucleated RBC % Platelet Estimate Anisocytosis Stomatocytes Schistocytes Puncture Site Artline ABG pH 7.387 ABG pCO2 44.1 ABG pO2 87.8 ABG PO2/FiO2 Ratio 2.20 ABG HCO3 25.9 ABG O2 Saturation 96.6 ABG O2 Content 16.1 ABG Base Excess 0.7 A-a Gradient 146.7 Oxyhemoglobin 95.8 Carboxyhemoglobin 0.6 Methemoglobin 0.2 Reduced Hemoglobin 3.4 Total Hemoglobin 11.9 L O2 Delivery Device Ventilator O2 Liters/Min Not Reportable Minute Volume Not Reportable Vent Rate 24 Vent Mode Cmv FiO2 40 Tidal Volume 410 PEEP 14 Peak Inspir Pressure Not Reportable Pressure Support Not Reportable Sodium Potassium Chloride Carbon Dioxide Anion Gap BUN Creatinine Estim Creat Clear Calc Estimated GFR Glucose POC Capillary Glucose 251 H 225 H Calcium Phosphorus Magnesium Total Bilirubin AST ALT Alkaline Phosphatase Total Protein Albumin
[2024-06-12] MEDS: FENTANYL 2,500MCG/NS250ML(*CRX 2,500 MCG/250 ML BAG IV CONT (16:18)
[2024-06-12] MEDS: CEFEPIME 1 GM/NS 50 ML 1 GM/50 ML BAG IVPB (16:35)
[2024-06-12 18:13] LABS: Glucose Point of Care 178 mg/dl (65-105)
[2024-06-12 23:13] LABS: Glucose Point of Care 172 mg/dl (65-105)
[2024-06-13] VITALS (94 sets, daily range): BP systolic 97–122; BP diastolic 45–98; PULSE 60–98; RESP 24–25; TEMP 36.3–37.3; O2SAT 89–100
[2024-06-13] MEDS: MIDAZOLAM 100MG/NS 100ML(*CRX) 100 MG/100 ML BAG IV CONT (00:39)
[2024-06-13] MEDS: IPRATROPIUM 0.5 MG/ALBUTEROL SULFATE 2.5 MG AMPUL.NEB 3 ML INHALATION ×4 (01:54→20:24)
[2024-06-13] MEDS: NOREPINEPHRINE 8 MG/D5W 250 ML 8 MG/250 ML BAG 20.63 MG IV CONT (03:00)
[2024-06-13] MEDS: HYDROCORTISONE SODIUM SUCCINATE 100 MG/2 ML VIAL 50 MG IV PUSH (05:01)
[2024-06-13] MEDS: CENTRAL LINE FLUSH 10 ML IV PUSH ×3 (05:02→19:53)
[2024-06-13 05:08] LABS: Basophils Percent Auto 0.2 % (0.2-1.2); Eosinophils Absolute Auto 0.1 K/mm3 (0-0.3); Eosinophils Percent Auto 0.7 % (0-4.4); Hematocrit 32.1 % (37.0-47.0); Immature Granulocyte Absolute 0.31 K/mm3 (0.00-0.031); Immature Granulocyte Percent A 1.6 % (0-0.5); Lymphocytes Absolute Auto 1.59 K/mm3 (0.9-3.2); Lymphocytes Percent Auto 8.1 % (18.3-44.2); Mean Corpuscular HGB Conc 31.2 g/dl (32-36); Mean Corpuscular Hemoglobin 27.2 pg (26-34); Mean Corpuscular Volume 87.5 fl (80-100); Mean Platelet Volume 10.1 fl (7.4-10.4); Monocytes Absolute Auto 1.4 K/mm3 (0.1-0.6); Monocytes Percent Auto 7.2 % (2.6-8.5); Neutrophils Absolute Auto 16.1 K/mm3 (1.3-6.7); Neutrophils Percent Auto 82.2 % (45.5-73.1); Platelet Count Result 329 k/mm3 (150-375); Red Blood Count 3.67 M/mm3 (4.2-5.4); Red Cell Distribution Width 18.7 % (11.5-14.5); White Blood Count 19.6 K/mm3 (4.5-10.0)
[2024-06-13 05:18] LABS: Alveolar/Arterial O2 Gradient 165.5 mmHg; Base Excess ABG -0.2 mEq/l (+/-2.0); Carboxyhemoglobin 0.3 % THb (0-2.0); Fractional Inspired Oxygen 40 %; HCO3 ABG 24.8 mEq/l (22.0-26.0); Methemoglobin ABG 0.1 %THb (0-1.5); Oxygen Content ABG 14.6 %vol (16.0-22.0); Oxygen Saturation ABG 94.3 % (95.0-100.0); Oxyhemoglobin 93.7 % THb (90.0-100.0); PCO2 ABG 41.9 mmHg (35.0-45.0); PO2 ABG 71.5 mmHg (80.0-100.0); PO2 FiO2 Ratio Arterial Blood 1.79 %; Reduced Hemoglobin 5.9 %THb (0-5.0)
[2024-06-13 05:18] LABS: Alanine Aminotransferase 76 U/L (6-35); Albumin Level 3.3 g/dL (3.5-5.1); Alkaline Phosphatase 218 U/L (38-126); Anion Gap 9 mmol/L (4-12); Aspartate Amino Transferase 119 U/L (14-36); Bilirubin,Total 1.6 mg/dL (0.2-1.3); Blood Urea Nitrogen 88 mg/dL (7-17); Calcium 10.5 mg/dL (8.4-10.2); Carbon Dioxide 26 mmol/L (22-30); Chloride 97 mmol/L (98-107); Estimated CRCL calculation 24 ml/min; Estimated Glomerular Filt Rate 12; Glucose 180 mg/dL (65-110); Magnesium 2.7 mg/dL (1.6-2.3); Phosphorus 4.2 mg/dL (2.5-4.5); Potassium 4.1 mmol/L (3.4-5.0); Sodium 132 mmol/L (137-145)
[2024-06-13 05:20] LABS: Device VENTILATOR; Modified Allen's Test Pass; Site Drawn RIGHT RADIAL
[2024-06-13 05:21] LABS: Arterial Blood Gas PEEP 12 cmH2O; Arterial Blood Gas Tidal Volume 400 ml; Arterial Blood Gas Vent Mode CMV; Arterial Blood Gas Ventilator rate 24 /MIN
[2024-06-13] MEDS: SODIUM CHLORIDE 0.9% IV 1,000 ML 999 ML IV CONT (07:18)
[2024-06-13] MEDS: EPOETIN ALFA-EPBX 4,000 UNITS/ML VIAL 4000 UNITS IV PUSH (07:18)
--- NOTE | 2024-06-13 08:14 | P.PNINT_ITS ---
Progress Note: A&P Assessment and Plan (1) Acute respiratory failure: Code(s): J96.00 - Acute respiratory failure, unspecified whether with hypoxia or hypercapnia Status: Acute Assessment and Plan: Patient with increasing oxygen requirements in the last 24 hours, brought to the ICU after midnight on 06/05/2024, chest x-ray showed bilateral diffuse pulmonary infiltrates/pulmonary edema. Patient was placed on BiPAP. ABG showed hypercapnic and hypoxemic respiratory failure -etiology likely related to pulmonary edema, pneumonia, ARDS -06/05: patient intubated for impending respiratory failure. Intubation was slightly challenging secondary to body habitus, small mouth, large tongue, redundant tissue in the hypopharynx and anterior vocal cords requiring cricoid pressure and use of glide scope. -patient placed on CMV mode of ventilation, peep of 14, 40% FiO2, peep wean to 10 -chest x-ray reviewed and advance ET tube by 2 cm. -continue bronchodilators - fentanyl and Versed infusion for analgosedation, will maintain RASS of -2 -continue dialysis for fluid removal (2) Septic shock: Code(s): A41.9 - Sepsis, unspecified organism; R65.21 - Severe sepsis with septic shock Status: Acute Assessment and Plan: Septic shock could be related to UTI, pneumonia -patient was hypotensive in the intermediate Unit and was transferred to the ICU which she received fluids, albumin -continue norepinephrine, will maintain MAP > 65 mmHg or SBP > 100 mmHg adequate end organ perfusion -off vasopressin since 06/06/2024 evening -off vancomycin -continue cefepime for a total of 7 days -fluconazole was discontinued given her renal dysfunction -off stress dose steroids -continue midodrine 06/05/2024: Echocardiogram Summary 1. Left ventricular chamber dimension is normal. 2. Left ventricular systolic function is normal, estimated at 65-70%. 3. The left ventricular diastolic function is grade I diastolic dysfunction. 4. Right ventricular chamber dimension is moderately enlarged. 5. Right ventricular systolic function is normal. 6. Left atrial chamber dimension is moderately enlarged. 7. Right atrial chamber dimension is moderately enlarged. 8. There is mild to moderate tricuspid valve regurgitation. (3) JOVI (acute kidney injury): Code(s): N17.9 - Acute kidney failure, unspecified Status: Acute Assessment and Plan: Patient with acute kidney injury, this morning her creatinine is 4.60 (creatinine on admission on 06/02/2024 was 2.10 and her creatinine on 04/26/2024 was 0.90) -etiology for acute kidney injury could be multifactorial, hypotension, shock, sepsis, UTI/pneumonia, hypoxia,? SLE flare, CHF, -CK levels are within normal limits -urine eosinophils were negative -urine electrolytes showed prerenal picture, patient seems to be volume overloaded -was given IV fluids and albumin overnight, will hold fluids for now -discussed with milieu counselor at [facility], feels that the patient is unstable to be transferred at this time for CRRT, recommended conventional dialysis. -discussed with supervisory lifeguard at [facility], agrees to conventional dialysis at this time -06/05: dialysis catheter was placed in the right IJ and exchange for the central line -06/05: Initiated dialysis, with 3000 mL of fluid removal -06/06: Dialysis with 3000 mL in fluid removal -06/07: Dialysis with 3700 mL in fluid removal -06/08: Dialysis with 2900 mL in fluid removal -06/09: Dialysis with 3000 mL in fluid removal -06/10: No dialysis -06/12: Patient was dialyzed and 3.1 P L fluid was removed -06/13 getting dialyzed again today. Plan to remove 4 L (4) Pulmonary edema: Code(s): J81.1 - Chronic pulmonary edema Status: Acute Assessment and Plan: Pulmonary edema likely related to acute kidney injury, ARDS, -did not respond to Bumex -continue fluid removal with dialysis (5) Type 2 diabetes mellitus: Code(s): E11.9 - Type 2 diabetes mellitus without complications Status: Acute Assessment and Plan: SSI and accucheks HbA1C is 5.7 this admission (6) Afib: Code(s): I48.91 - Unspecified atrial fibrillation Status: Acute Assessment and Plan: continue amiodarone and Eliquis - flecainide was stopped (7) SLE (systemic lupus erythematosus): Code(s): M32.9 - Systemic lupus erythematosus, unspecified Status: Acute Assessment and Plan: ? SLE flare Weaning steroids (8) Liver cirrhosis secondary to HOFFMANN: Code(s): K75.81 - Nonalcoholic steatohepatitis (HOFFMANN); K74.60 - Unspecified cirrhosis of liver Status: Acute Assessment and Plan: Continues to have mild elevation in LFTs and bilirubin which is stable 06/10/2024: RUQ ultrasound: Fat infiltration. Enlarged left lobe of the liver. Slightly thickened wall of the gallbladder. Trace of ascites. Otherwise, normal Limited ultrasound of the abdomen. -06/10/2024: Hepatitis panel is negative -continue to monitor (9) GERD (gastroesophageal reflux disease): Code(s): K21.9 - Gastro-esophageal reflux disease without esophagitis Status: Acute Assessment and Plan: Continue Protonix (10) Morbid obesity with BMI of 50.0-59.9, adult: Code(s): E66.01 - Morbid (severe) obesity due to excess calories; Z68.43 - Body mass index [BMI] 50.0-59.9, adult Status: Acute Assessment and Plan: Once extubated she will need lifestyle changes Plan DVT prophylaxis: Eliquis Stress ulcer prophylaxis: Protonix Nutrition: Tube feeds at goal and tolerating Code Status: Full code Critical Care Time Spent: 30 minutes Due to a high probability of clinically significant, life threatening deterioration, the patient required my highest level of preparedness to intervene emergently and I personally spent this critical care time directly and personally managing the patient. This critical care time included obtaining a history; examining the patient; pulse oximetry; ordering and review of studies; arranging urgent treatment with development of a management plan; evaluation of patient's response to treatment; frequent reassessment; and discussions with other providers. It was exclusive of separately billable procedures and treating other patients and teaching time. Please see Assessment and Plan section and the rest of the note for further information on patient assessment and treatment This dictation may have been done utilizing a voice recognition system. Attempts have been made to correct errors. However, there may be uncorrected grammatical, spelling, and recognitions errors present. Subjective Date/time seen: 06/13/24 Overnight events reviewed. Afebrile Continues to be on mechanical ventilation 40% FiO2 and 12 of PEEP Tolerating tube feeds Awake and follows commands despite sedation. Complains of pain in abdomen. Other Vitals acceptable Levophed at 12 mics Patient is getting dialyzed at this time Interval history: Reason for consult: Acute respiratory failure, septic shock, acute kidney injury, pulmonary edema 06/05: Intubated Review of Systems Review of Systems: ROS unobtainable: Yes unobtainable due to endotracheal tube, unobtainable due to medical condition and unobtainable due to mental status Exam Narrative: General: Morbidly obese female currently intubated and sedated in no acute distress HEENT:? Pupils equal and reactive bilaterally, sclera is clear, ETT in place Neck:, short and thick neck, Respiratory:? Decreased and coarse breath sounds bilaterally, no wheezing, Cardiac:? S1-S2 is normal, regular rate and rhythm Abdomen:? Morbid obesity, soft, hypoactive bowel sounds tenderness in right upper quadrant Extremities:? Bilateral lower extremity pitting edema improving, wrinkling of skin on the feet are noted, palpable pedal pulses. Right calf erythema has improved, Neuro:? Patient is intubated, sedated, opens her eyes, follows simple commands in all extremities and nods to questions Skin:? Erythema in the intertriginous region and under her pannus, skin is dry a nd warm Psych:? Unable to assess at this time Objective Data Vital Signs Vital Signs: Vital Signs - 24 hr 06/12/24 08:32 06/12/24 10:00 06/12/24 10:00 Temperature 36.3 C L Pulse Rate 69 69 Respiratory Rate 24 H Blood Pressure 125/55 L 124/56 L Pulse Oximetry 98 Oxygen Delivery Fraction of Inspired Oxygen 40 06/12/24 10:00 06/12/24 10:07 06/12/24 10:15 Temperature 36.3 C L Pulse Rate 70 70 69 Respiratory Rate 22 H Blood Pressure 124/56 L 133/60 133/62 Pulse Oximetry Oxygen Delivery Fraction of Inspired Oxygen 06/12/24 10:30 06/12/24 10:00 06/12/24 10:00 Temperature Pulse Rate 68 68 68 Respiratory Rate 24 H Blood Pressure 130/56 L 124/56 L Pulse Oximetry Oxygen Delivery Fraction of Inspired Oxygen 06/12/24 10:43 06/12/24 10:00 06/12/24 10:45 Temperature Pulse Rate 68 68 68 Respiratory Rate 24 H Blood Pressure 125/58 L Pulse Oximetry Oxygen Delivery Fraction of Inspired Oxygen 06/12/24 11:00 06/12/24 11:15 06/12/24 11:30 Temperature Pulse Rate 70 69 69 Respiratory Rate Blood Pressure 131/62 116/52 L 97/43 L Pulse Oximetry Oxygen Delivery Fraction of Inspired Oxygen 06/12/24 11:45 06/12/24 12:00 06/12/24 12:00 Temperature 36.5 C Pulse Rate 74 77 77 Respiratory Rate 23 H Blood Pressure 106/48 L 114/48 L 114/48 L Pulse Oximetry 91 Oxygen Delivery Fraction of Inspired Oxygen 06/12/24 12:15 06/12/24 12:45 06/12/24 12:30 Temperature Pulse Rate 71 67 68 Respiratory Rate Blood Pressure 118/60 114/52 L 124/59 L Pulse Oximetry Oxygen Delivery Fraction of Inspired Oxygen 06/12/24 12:00 06/12/24 12:00 06/12/24 10:30 Temperature Pulse Rate 74 74 69 Respiratory Rate 23 H Blood Pressure Pulse Oximetry 92 95 Oxygen Delivery Mechanical Ventilation Mechanical Ventilation Fraction of Inspired Oxygen 40 40 06/12/24 13:33 06/12/24 13:40 06/12/24 13:32 Temperature Pulse Rate 66 63 66 Respiratory Rate 24 H 24 H Blood Pressure Pulse Oximetry 96 Oxygen Delivery Mechanical Ventilation Fraction of Inspired Oxygen 40 06/12/24 12:00 06/12/24 13:46 06/12/24 13:46 Temperature Pulse Rate 77 65 65 Respiratory Rate Blood Pressure 114/48 L 121/56 L 121/56 L Pulse Oximetry Oxygen Delivery Fraction of Inspired Oxygen 06/12/24 13:49 06/12/24 14:02 06/12/24 12:00 Temperature Pulse Rate 64 65 75 Respiratory Rate 24 H Blood Pressure 119/52 L Pulse Oximetry Oxygen Delivery Fraction of Inspired Oxygen 06/12/24 14:00 06/12/24 12:00 06/12/24 14:00 Temperature Pulse Rate 68 75 68 Respiratory Rate 24 H 24 H 24 H Blood Pressure Pulse Oximetry Oxygen Delivery Fraction of Inspired Oxygen 06/12/24 14:00 06/12/24 14:00 06/12/24 16:00 Temperature 36.3 C L Pulse Rate 68 66 Respiratory Rate 24 H Blood Pressure 119/52 L Pulse Oximetry 96 Oxygen Delivery Mechanical Ventilation Fraction of Inspired Oxygen 40 06/12/24 16:00 06/12/24 16:18 06/12/24 16:18 Temperature Pulse Rate 61 65 66 Respiratory Rate 24 H Blood Pressure 113/54 L Pulse Oximetry Oxygen Delivery Fraction of Inspired Oxygen 06/12/24 16:18 06/12/24 16:00 06/12/24 16:50 Temperature Pulse Rate 66 67 74 Respiratory Rate 24 H 24 H 25 H Blood Pressure Pulse Oximetry Oxygen Delivery Fraction of Inspired Oxygen 06/12/24 13:00 06/12/24 13:25 06/12/24 13:11 Temperature 36.3 C L Pulse Rate 63 66 66 Respiratory Rate 22 H Blood Pressure 105/56 L 125/56 L 113/60 Pulse Oximetry Oxygen Delivery Fraction of Inspired Oxygen 06/12/24 16:00 06/12/24 16:25 06/12/24 18:00 Temperature 36.3 C L Pulse Rate 64 65 61 Respiratory Rate 24 H Blood Pressure 121/56 L 111/50 L Pulse Oximetry 96 93 Oxygen Delivery Mechanical Ventilation Fraction of Inspired Oxygen 40 06/12/24 18:01 06/12/24 18:02 06/12/24 18:00 Temperature Pulse Rate 61 61 60 Respiratory Rate 24 H 24 H Blood Pressure Pulse Oximetry Oxygen Delivery Fraction of Inspired Oxygen 06/12/24 18:00 06/12/24 18:35 06/12/24 19:36 Temperature 37.2 C Pulse Rate 61 61 Respiratory Rate 24 H Blood Pressure 111/50 L 114/53 L Pulse Oximetry 95 Oxygen Delivery Fraction of Inspired Oxygen 40 06/12/24 19:30 06/12/24 19:45 06/12/24 20:00 Temperature Pulse Rate 60 60 62 Respiratory Rate 24 H Blood Pressure 107/56 L 105/49 L Pulse Oximetry 93 Oxygen Delivery Mechanical Ventilation Fraction of Inspired Oxygen 40 06/12/24 20:00 06/12/24 20:00 06/12/24 20:05 Temperature 37.1 C Pulse Rate 61 61 61 Respiratory Rate 24 H 24 H Blood Pressure 104/56 L 104/56 L Pulse Oximetry 94 Oxygen Delivery Fraction of Inspired Oxygen 06/12/24 20:00 06/12/24 20:07 06/12/24 20:15 Temperature Pulse Rate 61 61 62 Respiratory Rate 24 H Blood Pressure 99/44 L Pulse Oximetry Oxygen Delivery Fraction of Inspired Oxygen 06/12/24 20:30 06/12/24 19:55 06/12/24 19:55 Temperature Pulse Rate 63 60 60 Respiratory Rate 24 H Blood Pressure 107/51 L Pulse Oximetry 95 Oxygen Delivery Mechanical Ventilation Fraction of Inspired Oxygen 40 06/12/24 20:00 06/12/24 21:00 06/12/24 21:00 Temperature Pulse Rate 62 63 63 Respiratory Rate 24 H Blood Pressure 105/46 L 105/46 L Pulse Oximetry 94 Oxygen Delivery Fraction of Inspired Oxygen 06/12/24 22:00 06/12/24 22:00 06/12/24 22:00 Temperature 37.2 C Pulse Rate 64 64 64 Respiratory Rate 24 H Blood Pressure 114/55 L 114/55 L Pulse Oximetry 94 Oxygen Delivery Fraction of Inspired Oxygen 06/12/24 22:00 06/12/24 22:00 06/12/24 22:32 Temperature Pulse Rate 64 64 62 Respiratory Rate 24 H 24 H Blood Pressure Pulse Oximetry 93 Oxygen Delivery Mechanical Ventilation Fraction of Inspired Oxygen 40 06/12/24 23:00 06/12/24 23:00 06/12/24 23:15 Temperature Pulse Rate 66 66 63 Respiratory Rate 24 H Blood Pressure 109/55 L 109/55 L 104/53 L Pulse Oximetry 93 Oxygen Delivery Fraction of Inspired Oxygen 06/12/24 23:30 06/12/24 23:45 06/13/24 00:00 Temperature 37.1 C Pulse Rate 62 61 62 Respiratory Rate 24 H Blood Pressure 97/45 L 107/51 L 107/51 L Pulse Oximetry 93 Oxygen Delivery Fraction of Inspired Oxygen 06/13/24 00:00 06/13/24 00:00 06/13/24 00:00 Temperature Pulse Rate 62 62 Respiratory Rate Blood Pressure 107/51 L Pulse Oximetry Oxygen Delivery Fraction of Inspired Oxygen 40 06/13/24 00:00 06/13/24 00:00 06/13/24 00:00 Temperature Pulse Rate 62 62 62 Respiratory Rate 24 H 24 H 24 H Blood Pressure Pulse Oximetry 93 Oxygen Delivery Mechanical Ventilation Fraction of Inspired Oxygen 40 06/13/24 00:32 06/13/24 00:39 06/13/24 00:39 Temperature Pulse Rate 62 63 63 Respiratory Rate 24 H 24 H 24 H Blood Pressure Pulse Oximetry Oxygen Delivery Fraction of Inspired Oxygen 06/13/24 00:45 06/13/24 01:00 06/13/24 01:00 Temperature Pulse Rate 68 65 64 Respiratory Rate 24 H Blood Pressure 111/54 L 119/53 L 119/53 L Pulse Oximetry 90 Oxygen Delivery Fraction of Inspired Oxygen 06/13/24 01:54 06/13/24 01:56 06/13/24 02:05 Temperature Pulse Rate 67 67 65 Respiratory Rate 24 H 24 H Blood Pressure Pulse Oximetry 91 Oxygen Delivery Mechanical Ventilation Fraction of Inspired Oxygen 40 06/13/24 02:00 06/13/24 02:00 06/13/24 02:00 Temperature 37.2 C Pulse Rate 67 67 67 Respiratory Rate 24 H Blood Pressure 111/54 L 111/54 L Pulse Oximetry 92 Oxygen Delivery Fraction of Inspired Oxygen 06/13/24 02:00 06/13/24 02:00 06/13/24 03:00 Temperature Pulse Rate 67 67 63 Respiratory Rate 24 H 24 H Blood Pressure 103/52 L Pulse Oximetry Oxygen Delivery Fraction of Inspired Oxygen 06/13/24 03:00 06/13/24 04:00 06/13/24 04:00 Temperature 37.3 C Pulse Rate 63 61 61 Respiratory Rate 24 H 24 H Blood Pressure 103/52 L 107/51 L 107/51 L Pulse Oximetry 93 92 Oxygen Delivery Fraction of Inspired Oxygen 06/13/24 04:00 06/13/24 04:00 06/13/24 04:00 Temperature Pulse Rate 61 61 Respiratory Rate 24 H 24 H Blood Pressure Pulse Oximetry Oxygen Delivery Fraction of Inspired Oxygen 40 06/13/24 05:00 06/13/24 05:00 06/13/24 05:15 Temperature Pulse Rate 68 66 66 Respiratory Rate 24 H Blood Pressure 120/52 L 120/52 L 106/51 L Pulse Oximetry 94 Oxygen Delivery Fraction of Inspired Oxygen 06/13/24 04:00 06/13/24 04:00 06/13/24 05:23 Temperature Pulse Rate 61 68 68 Respiratory Rate 24 H Blood Pressure Pulse Oximetry 93 92 Oxygen Delivery Mechanical Ventilation Mechanical Ventilation Fraction of Inspired Oxygen 40 40 06/13/24 06:00 06/13/24 06:00 06/13/24 06:15 Temperature 37.1 C Pulse Rate 64 64 64 Respiratory Rate 24 H Blood Pressure 100/46 L 103/45 L Pulse Oximetry 91 Oxygen Delivery Fraction of Inspired Oxygen 06/13/24 06:30 06/13/24 06:00 06/13/24 06:00 Temperature Pulse Rate 64 64 64 Respiratory Rate 24 H 24 H Blood Pressure 112/49 L Pulse Oximetry Oxygen Delivery Fraction of Inspired Oxygen 06/13/24 06:48 06/13/24 07:00 06/13/24 06:40 Temperature 36.9 C Pulse Rate 64 68 64 Respiratory Rate 24 H Blood Pressure 108/47 L 97/59 L 112/49 L Pulse Oximetry 90 Oxygen Delivery Fraction of Inspired Oxygen 06/13/24 06:35 06/13/24 07:15 06/13/24 07:30 Temperature Pulse Rate 68 68 Respiratory Rate Blood Pressure 106/50 L 111/49 L Pulse Oximetry Oxygen Delivery Fraction of Inspired Oxygen 40 06/13/24 07:45 06/13/24 08:00 Temperature Pulse Rate 68 70 Respiratory Rate Blood Pressure 110/49 L 112/48 L Pulse Oximetry Oxygen Delivery Fraction of Inspired Oxygen Intake/Output Intake/Output: Intake & Output 06/10/24 06/11/24 06/12/24 06/13/24 23:59 23:59 23:59 23:59 Intake Total 1873.1 1876.8 1985.4 656.8 Output Total 800 3600 3675 75 Balance 1073.1 -1723.2 -1689.6 581.8 Meds/Results Medications: Active Medications Generic Name Dose Route Start Last Admin Trade Name Freq PRN Reason Stop Dose Admin Acetaminophen 650 mg 06/07/24 21:53 06/07/24 22:30 Acetaminophen Elixir 325 Mg/10.15 Ml Udc PO 650 mg Q6H PRN Administration Mild Pain (1-3) or Fever Albuterol/Ipratropium 3 ml 06/05/24 11:15 06/13/24 01:54 Ipratropium 0.5 Mg/Albuterol Sulfate 2.5 Mg Ampul.Neb 3 Ml INHALATION 3 ml Q6HRT JOHN Administration Amiodarone HCl 200 mg 06/02/24 21:00 06/12/24 20:07 Amiodarone Hcl 200 Mg Tablet PO 200 mg Q12HR JOHN Administration Apixaban 5 mg 06/06/24 09:30 06/12/24 20:07 Apixaban 5 Mg Tablet PO 5 mg Q12HR JOHN Administration Dextrose 12.5 gm 06/05/24 11:46 Dextrose 50% 25 Gm/50 Ml Syringe IV PUSH PRN PRN Hypoglycemia Protocol Epoetin Shayan-epbx 4,000 units 06/13/24 20:00 06/13/24 07:18 Epoetin Shayan-Epbx 4,000 Units/Ml Vial IV PUSH 06/13/24 20:01 4,000 units ONCE ONE Administration Glucagon 1 mg 06/05/24 11:46 Glucagon For Inj 1 Mg Vial IM PRN PRN Hypoglycemia Protocol Glucose 15 gm 06/05/24 11:46 Glucose Oral Gel 15 Gm Of Glucse In 37.5 Gm Tube PO PRN PRN Hypoglycemia Protocol Norepinephrine Bitartrate 8 mg in 250 mls @ 22.5 mls/hr 06/05/24 00:35 06/13/24 06:30 Levophed 8 Mg/D5w 250 Ml IV CONT 12 mcg/min .Q11H7M JOHN 22.5 mls/hr Titration Protocol 12 MCG/MIN Fentanyl Citrate 2,500 mcg in 250 mls @ 5 mls/hr 06/05/24 08:35 06/13/24 06:00 Fentanyl 2,500 Mcg/Ns 250 Ml IV CONT 50 mcg/hr .Q50H JOHN 5 mls/hr Titration Protocol 50 MCG/HR Midazolam HCl 100 mg in 100 mls @ 1 mls/hr 06/05/24 08:35 06/13/24 06:00 Versed 100 Mg/Ns 100 Ml IV CONT 1 mg/hr .Q72H JOHN 1 mls/hr Titration Protocol 1 MG/HR Dextrose 1,000 mls @ 100 mls/hr 06/05/24 11:46 Dextrose 5% 1,000 Ml IVPB PRN PRN Hypoglycemia Protocol Albumin Human 50 mls @ 999 mls/hr 06/08/24 09:50 06/12/24 11:35 Albutein IVPB 07/08/24 09:49 999 mls/hr Q10M PRN Administration HYPOTENSION Insulin Aspart 3 - 6 units 06/05/24 12:00 06/13/24 05:47 Insulin Aspart (*Bkc) 100 Units/Ml SUB-Q Not Given Q6HR [facility] Protocol Midodrine 10 mg 06/05/24 09:00 06/12/24 16:35 Midodrine Hcl 10 Mg Tablet PO 10 mg TID JOHN Administration Multi-Ingred Cream/Lotion/Oil/Oint 1 applic 06/05/24 09:00 06/12/24 20:08 Mineral Oil/White Petrolatum Ointment EACH EYE 1 applic Q12HR JOHN Administration Ondansetron HCl 4 mg 06/11/24 07:47 06/11/24 13:40 Ondansetron Inj 4 Mg/2 Ml Vial IV PUSH 4 mg Q6H PRN Administration Nausea And Vomiting Pantoprazole Sodium 40 mg 06/06/24 09:00 06/12/24 20:07 Pantoprazole Sodium Iv 40 Mg Vial IV PUSH 40 mg Q12HR JOHN Administration Fluticasone/Salmeterol 2 puff 06/03/24 08:00 06/12/24 19:54 Fluticasone/Salmeterol 115-21 Mcg Inhaler 1 Puff INHALATION Not Given Q12HRT JOHN Sodium Chloride 10 ml 06/05/24 06:00 06/13/24 05:02 Central Line Flush IV PUSH 10 ml Q8HR JOHN Administration Sodium Chloride 20 ml 06/05/24 03:12 Central Line Flush IV PUSH PRN PRN after blood draws Umeclidinium [place] 1 puff 06/03/24 08:00 06/12/24 13:28 Umeclidinium [place] 62.5 Mcg Ellipta INHALATION Not Given DAILYRT JOHN Radiology Results: ITS Impressions Renal Ultrasound 06/04/24 15:06 IMPRESSION: 1. Normal kidneys. No hydronephrosis. Chest/Abdomen/Pelvis CT 06/04/24 19:12 IMPRESSION: 1. Diffuse lung disease, consistent with pulmonary edema versus pneumonia. 2. Moderate volume of ascites. Venous Doppler Study 06/07/24 17:01 IMPRESSION: 1. No deep venous thrombosis. Abdomen Ultrasound 06/10/24 14:47 IMPRESSION: Fat infiltration. Enlarged left lobe of the liver. Slightly thickened wall of the gallbladder. Trace of ascites. Otherwise, normal Limited ultrasound of the abdomen. Abdomen X-Ray 06/11/24 07:58 Impression: Limited exam. NG tube is in satisfactory position. Chest X-Ray 06/13/24 06:05 IMPRESSION: 1. Stable diffuse lung disease, consistent with pulmonary edema versus pneumonia. 2. Cardiomegaly. Labs Labs: Laboratory Results - last 24 hr 06/12/24 06/12/24 06/12/24 12:02 13:43 18:10 WBC RBC Hgb Hct MCV MCH MCHC RDW Plt Count MPV Immature Gran % (Auto) Neut % (Auto) Lymph % (Auto) [place] % (Auto) Eos % (Auto) Baso % (Auto) Lymph # (Auto) [place] # (Auto) Eos # (Auto) Baso # (Auto) Abs Immat Gran (auto) Absolute Neuts (auto) Absolute Nucleated RBC Nucleated RBC % Puncture Site ABG pH ABG pCO2 ABG pO2 ABG PO2/FiO2 Ratio ABG HCO3 ABG O2 Saturation ABG O2 Content ABG Base Excess A-a Gradient Oxyhemoglobin Carboxyhemoglobin Methemoglobin Reduced Hemoglobin Total Hemoglobin O2 Delivery Device O2 Liters/Min Minute Volume Vent Rate Vent Mode FiO2 Tidal Volume PEEP Peak Inspir Pressure Pressure Support Sodium Potassium Chloride Carbon Dioxide Anion Gap BUN Creatinine Estim Creat Clear Calc Estimated GFR Glucose POC Capillary Glucose 251 H 225 H 178 H Calcium Phosphorus Magnesium Total Bilirubin AST ALT Alkaline Phosphatase Total Protein Albumin 06/12/24 06/13/24 06/13/24 23:05 04:59 05:10 WBC 19.6 H RBC 3.67 L Hgb 10.0 L Hct 32.1 L MCV 87.5 MCH 27.2 MCHC 31.2 L RDW 18.7 H Plt Count 329 MPV 10.1 Immature Gran % (Auto) 1.6 H Neut % (Auto) 82.2 H Lymph % (Auto) 8.1 L [place] % (Auto) 7.2 Eos % (Auto) 0.7 Baso % (Auto) 0.2 Lymph # (Auto) 1.59 [place] # (Auto) 1.4 H Eos # (Auto) 0.1 Baso # (Auto) 0.0 Abs Immat Gran (auto) 0.31 H Absolute Neuts (auto) 16.1 H Absolute Nucleated RBC 0.000 Nucleated RBC % 0.0 Puncture Site Right radial ABG pH 7.390 ABG pCO2 41.9 ABG pO2 71.5 L ABG PO2/FiO2 Ratio 1.79 ABG HCO3 24.8 ABG O2 Saturation 94.3 L ABG O2 Content 14.6 L ABG Base Excess -0.2 A-a Gradient 165.5 Oxyhemoglobin 93.7 Carboxyhemoglobin 0.3 Methemoglobin 0.1 Reduced Hemoglobin 5.9 H Total Hemoglobin 11.0 L O2 Delivery Device Ventilator O2 Liters/Min Not Reportable Minute Volume Not Reportable Vent Rate 24 Vent Mode Cmv FiO2 40 Tidal Volume 400 PEEP 12 Peak Inspir Pressure Not Reportable Pressure Support Not Reportable Sodium 132 L Potassium 4.1 Chloride 97 L Carbon Dioxide 26 Anion Gap 9 BUN 88 H D Creatinine 4.00 H Estim Creat Clear Calc 24 Estimated GFR 12 L Glucose 180 H POC Capillary Glucose 172 H Calcium 10.5 H Phosphorus 4.2 Magnesium 2.7 H Total Bilirubin 1.6 H AST 119 H ALT 76 H Alkaline Phosphatase 218 H Total Protein 7.0 Albumin 3.3 L Quality VTE Prophylaxis VTE prophylaxis: pharmacologic ordered
[2024-06-13] MEDS: AMIODARONE HCL 200 MG TABLET PO ×2 (10:55→19:53)
[2024-06-13] MEDS: MIDODRINE HCL 10 MG TABLET PO ×3 (10:55→17:15)
[2024-06-13] MEDS: PANTOPRAZOLE SODIUM IV 40 MG VIAL IV PUSH ×2 (10:55→19:52)
[2024-06-13] MEDS: APIXABAN 5 MG TABLET PO ×2 (10:55→19:52)
[2024-06-13] MEDS: MINERAL OIL/WHITE PETROLATUM OINTMENT 1 APPLIC EACH EYE ×2 (10:56→19:53)
--- NOTE | 2024-06-13 11:01 | PCFNICU ---
ICU Rounding Note: Pt current nutrition is Nepro at 40 ml/hr. Last recorded weight is 171.5 kg, 180.3 kg on admit. Bowel Motility: +BM reported 06/11 Labs Reviewed: Mg 2.7, BUN 88, Cr 4.0, GFR 12, Alb 3.3, Na 132, Alb 3.3, Glu 180 Meds Noted: Versed, Protonix, Fentanyl, Levophed Skin: WNL Additional Notes: Patient remains on a tube feeding of Nepro at 40 ml/hr. Tube feedings are being tolerated. Plans for dialysis today. Agree with diet orders. Following daily in ICU rounds. Will monitor weight, labs, skin, meds, diet orders every Tuesday and Tuesday.
[2024-06-13 12:08] LABS: Glucose Point of Care 182 mg/dl (65-105)
--- NOTE | 2024-06-13 12:09 | P.PNNP_ITS ---
Progress Note: A&P Assessment and Plan (1) JOVI (acute kidney injury): Code(s): N17.9 - Acute kidney failure, unspecified Status: Acute Assessment and Plan: * normal creatinine ~ 1 month ago * admitted with a creatinine of 2.1mg/dl with ongoing worsening noted * etiology not clear but several possibilities: * hemodynamic instability/shock * early sepsis * infection (UTI +/- pneumonia) -- although culture negative to date * hypoxia * SLE flare (?) * other? * evaluation to date noted: * renal ultrasound negative for obstruction * urine eosinophils negative * urine electrolytes pre-renal (in spite of evidence of volume overload) * CPK low * moderate proteinuria (~ 600mg) * UA with blood and protein (and negative urine culture) * complements normal (arguing against lupus flare) * initiated on dialysis yesterday due to worsening respiratory status and volume overload * HD on 06/05, 06/06 and 06/08 * DUF on 06/07, 06/09, and 06/12 * HD today * follow repeat labs and UOP for potential renal recovery (2) Acute respiratory failure: Code(s): J96.00 - Acute respiratory failure, unspecified whether with hypoxia or hypercapnia Status: Acute Assessment and Plan: * intubated on 06/05: * failed BiPAP therapy * impending respiratory failure (given hypoxia + hypercapnea) * suspect secondary to pulmonary edema, pneumonia, and possible early ARDS * remains on ventilator support * on bronchodilators and steroids * fluid removal with dialysis * follow respiratory status (3) Septic shock: Code(s): A41.9 - Sepsis, unspecified organism; R65.21 - Severe sepsis with septic shock Status: Acute Assessment and Plan: * possible related to pneumonia versus UTI * initiated on vasopressor therapy * follow culture data * 06/06 blood culture with E.coli and Stap epi * urine culture negative * on antibiotics * stress dose steroids weaned off * on midodrine * follow trend of hemodynamics (4) Pulmonary edema: Code(s): J81.1 - Chronic pulmonary edema Status: Acute Assessment and Plan: * contributing to #2 * secondary to JOVI/ARF but ARDS possibly playing a role * this is likely related to acute kidney injury and ARDS * fluid removal with dialysis as tolerated (5) SLE (systemic lupus erythematosus): Code(s): M32.9 - Systemic lupus erythematosus, unspecified Status: Acute Assessment and Plan: * ? SLE flare * getting stress dose steroids - being weaned * seems less likely based on evidence to date * however, would not be a candidate for immunosuppression at this time (6) Anemia: Code(s): D64.9 - Anemia, unspecified Status: Acute Assessment and Plan: * related to JOVI and acute/critical illness * KIIRLL with HD as needed * follow trend of H/H (7) Afib: Code(s): I48.91 - Unspecified atrial fibrillation Status: Acute Assessment and Plan: * rate control stratgey * on amiodarone and Eliquis (8) Liver cirrhosis secondary to HOFFMANN: Code(s): K75.81 - Nonalcoholic steatohepatitis (HOFFMANN); K74.60 - Unspecified cirrhosis of liver Status: Acute Assessment and Plan: * known history * normal liver by recent imaging * noted elevations in AST/ALT that have been up and down * fluctuating LFTS thought to be more related to congestion/volume overload * continue to follow (9) Type 2 diabetes mellitus: Code(s): E11.9 - Type 2 diabetes mellitus without complications Status: Acute Assessment and Plan: * follow accu-cheks * glycemic control per igniter assembler/hospitalist Will continue to follow. Subjective Date/time seen: 06/13/24 12:09 Interval history: Follow-up for acute kidney injury/acute renal failure and volume overload. Tolerated dialysis treatment earlier this morning with ~ 4L fluid removal; remains intubated/sedated and on mechanical ventilation but awake and responsive to yes/no questions along with following simple commands; remains on vasopressor therapy to maintain MAP/BP; minimal urine output noted; tolerated dry ultrafiltration yesterday with 3.5L fluid removal Exam Narrative: General: large female intubated/sedated on mechanical ventilator Heart: normal S1 and S2; no rub Lungs: coarse breath sounds; decreased at bases Abdomen: obese but soft, nontender, nondistended, positive bowel sounds Extremities: no cyanosis or clubbing; 2+ edema Skin: warm and intact Objective Data Vital Signs Vital Signs: Vital Signs Temp Pulse Resp BP Pulse Ox O2 Del Method FiO2 06/13/24 12:00 98.6 F 98 24 H 116/50 L 96 06/13/24 11:58 40 06/13/24 11:55 Mechanical Ventilation 40 06/13/24 11:30 65 113/50 L 06/13/24 11:16 69 109/49 L 06/13/24 11:08 67 94 Mechanical Ventilation 40 06/13/24 11:00 67 118/51 L 06/13/24 10:55 68 06/13/24 10:00 61 24 H 105/49 L 94 06/13/24 10:00 61 24 H 06/13/24 08:00 70 24 H 06/13/24 08:00 70 24 H 06/13/24 10:00 61 24 H 06/13/24 10:00 61 105/59 L 06/13/24 09:00 69 108/49 L 06/13/24 08:00 70 112/48 L 06/13/24 10:00 62 06/13/24 08:00 40 06/13/24 08:00 Mechanical Ventilation 40 06/13/24 08:00 71 06/13/24 10:32 97.7 F 70 24 H 111/50 L 95 06/13/24 10:19 62 101/45 L 06/13/24 10:00 61 105/49 L 06/13/24 09:45 61 106/47 L 06/13/24 09:30 64 105/48 L 06/13/24 09:15 66 108/50 L 06/13/24 09:00 69 108/49 L 06/13/24 08:45 68 06/13/24 08:30 69 108/46 L 06/13/24 08:24 68 93 Mechanical Ventilation 40 06/13/24 08:23 68 25 H 06/13/24 08:29 69 24 H 06/13/24 08:00 98.8 F 70 24 H 112/48 L 94 06/13/24 08:15 68 107/98 H 06/13/24 08:00 70 112/48 L 06/13/24 07:45 68 110/49 L 06/13/24 07:30 68 111/49 L 06/13/24 07:15 68 106/50 L 06/13/24 06:35 40 06/13/24 06:40 98.5 F 64 24 H 112/49 L 90 06/13/24 07:00 68 97/59 L 06/13/24 06:48 64 108/47 L 06/13/24 06:00 64 24 H 06/13/24 06:00 64 24 H 06/13/24 06:30 64 112/49 L 06/13/24 06:15 64 103/45 L 06/13/24 06:00 64 06/13/24 06:00 98.7 F 64 24 H 100/46 L 91 06/13/24 05:23 68 92 Mechanical Ventilation 40 06/13/24 04:00 68 24 H 93 Mechanical Ventilation 40 06/13/24 04:00 61 06/13/24 05:15 66 106/51 L 06/13/24 05:00 66 120/52 L 06/13/24 05:00 68 24 H 120/52 L 94 06/13/24 04:00 40 06/13/24 04:00 61 24 H 06/13/24 04:00 61 24 H 06/13/24 04:00 61 107/51 L 06/13/24 04:00 99.1 F 61 24 H 107/51 L 92 06/13/24 03:00 63 24 H 103/52 L 93 06/13/24 03:00 63 103/52 L 06/13/24 02:00 67 24 H 06/13/24 02:00 67 24 H 06/13/24 02:00 67 111/54 L 06/13/24 02:00 99.0 F 67 24 H 111/54 L 92 06/13/24 02:00 67 06/13/24 02:05 65 24 H 06/13/24 01:56 67 91 Mechanical Ventilation 40 06/13/24 01:54 67 24 H 06/13/24 01:00 64 119/53 L 06/13/24 01:00 65 24 H 119/53 L 90 06/13/24 00:45 68 111/54 L 06/13/24 00:39 63 24 H 06/13/24 00:39 63 24 H 06/13/24 00:32 62 24 H 06/13/24 00:00 62 24 H 93 Mechanical Ventilation 40 06/13/24 00:00 62 24 H 06/13/24 00:00 62 24 H 06/13/24 00:00 62 107/51 L 06/13/24 00:00 62 06/13/24 00:00 40 06/13/24 00:00 98.8 F 62 24 H 107/51 L 93 06/12/24 23:45 61 107/51 L 06/12/24 23:30 62 97/45 L 06/12/24 23:15 63 104/53 L 06/12/24 23:00 66 24 H 109/55 L 93 06/12/24 23:00 66 109/55 L 06/12/24 22:32 62 93 Mechanical Ventilation 40 06/12/24 22:00 64 24 H 06/12/24 22:00 64 24 H 06/12/24 22:00 64 114/55 L 06/12/24 22:00 99.0 F 64 24 H 114/55 L 94 06/12/24 22:00 64 06/12/24 21:00 63 105/46 L 06/12/24 21:00 63 24 H 105/46 L 94 06/12/24 20:00 62 06/12/24 19:55 60 95 Mechanical Ventilation 40 06/12/24 19:55 60 24 H 06/12/24 20:30 63 107/51 L 06/12/24 20:15 62 99/44 L 06/12/24 20:07 61 06/12/24 20:00 61 24 H 06/12/24 20:05 61 24 H 06/12/24 20:00 61 104/56 L 06/12/24 20:00 98.8 F 61 24 H 104/56 L 94 06/12/24 20:00 62 24 H 93 Mechanical Ventilation 40 06/12/24 19:45 60 105/49 L 06/12/24 19:30 60 107/56 L 06/12/24 19:36 40 06/12/24 18:35 61 114/53 L 06/12/24 18:00 98.9 F 61 24 H 111/50 L 95 06/12/24 18:00 60 06/12/24 18:02 61 24 H 06/12/24 18:01 61 24 H 06/12/24 18:00 61 111/50 L 06/12/24 16:25 65 93 Mechanical Ventilation 40 06/12/24 16:00 97.3 F L 64 24 H 121/56 L 96 06/12/24 16:50 74 25 H 06/12/24 16:00 67 24 H 06/12/24 16:18 66 24 H 06/12/24 16:18 66 24 H 06/12/24 16:18 65 113/54 L 06/12/24 16:00 61 06/12/24 16:00 Mechanical Ventilation 40 Intake/Output Intake/Output: Intake & Output 06/10/24 06/11/24 06/12/24 06/13/24 23:59 23:59 23:59 23:59 Intake Total 1873.1 1876.8 1985.4 850.2 Output Total 800 3600 3675 4075 Balance 1073.1 -1723.2 -1689.6 -3224.8 Meds/Results Medications: Active Medications Generic Name Dose Route Start Last Admin Trade Name Freq PRN Reason Stop Dose Admin Acetaminophen 650 mg 06/07/24 21:53 06/07/24 22:30 Acetaminophen Elixir 325 Mg/10.15 Ml Udc PO 650 mg Q6H PRN Administration Mild Pain (1-3) or Fever Albuterol/Ipratropium 3 ml 06/05/24 11:15 06/13/24 13:36 Ipratropium 0.5 Mg/Albuterol Sulfate 2.5 Mg Ampul.Neb 3 Ml INHALATION 3 ml Q6HRT JOHN Administration Amiodarone HCl 200 mg 06/02/24 21:00 06/13/24 10:55 Amiodarone Hcl 200 Mg Tablet PO 200 mg Q12HR JOHN Administration Apixaban 5 mg 06/06/24 09:30 06/13/24 10:55 Apixaban 5 Mg Tablet PO 5 mg Q12HR JOHN Administration Dextrose 12.5 gm 06/05/24 11:46 Dextrose 50% 25 Gm/50 Ml Syringe IV PUSH PRN PRN Hypoglycemia Protocol Epoetin Shayan-epbx 4,000 units 06/13/24 20:00 06/13/24 07:18 Epoetin Shayan-Epbx 4,000 Units/Ml Vial IV PUSH 06/13/24 20:01 4,000 units ONCE ONE Administration Glucagon 1 mg 06/05/24 11:46 Glucagon For Inj 1 Mg Vial IM PRN PRN Hypoglycemia Protocol Glucose 15 gm 06/05/24 11:46 Glucose Oral Gel 15 Gm Of Glucse In 37.5 Gm Tube PO PRN PRN Hypoglycemia Protocol Norepinephrine Bitartrate 8 mg in 250 mls @ 16.875 mls/hr 06/05/24 00:35 06/13/24 14:03 Levophed 8 Mg/D5w 250 Ml IV CONT 9 mcg/min .[id number] JOHN 16.88 mls/hr Titration Protocol 9 MCG/MIN Fentanyl Citrate 2,500 mcg in 250 mls @ 5 mls/hr 06/05/24 08:35 06/13/24 14:04 Fentanyl 2,500 Mcg/Ns 250 Ml IV CONT 50 mcg/hr .Q50H JOHN 5 mls/hr Titration Protocol 50 MCG/HR Midazolam HCl 100 mg in 100 mls @ 1 mls/hr 06/05/24 08:35 06/13/24 14:04 Versed 100 Mg/Ns 100 Ml IV CONT 1 mg/hr .Q72H JOHN 1 mls/hr Titration Protocol 1 MG/HR Dextrose 1,000 mls @ 100 mls/hr 06/05/24 11:46 Dextrose 5% 1,000 Ml IVPB PRN PRN Hypoglycemia Protocol Albumin Human 50 mls @ 999 mls/hr 06/08/24 09:50 06/12/24 11:35 Albutein IVPB 07/08/24 09:49 999 mls/hr Q10M PRN Administration HYPOTENSION Insulin Aspart 3 - 6 units 06/05/24 12:00 06/13/24 12:24 Insulin Aspart (*Bkc) 100 Units/Ml SUB-Q Not Given Q6HR JOHN Protocol Midodrine 10 mg 06/05/24 09:00 06/13/24 13:49 Midodrine Hcl 10 Mg Tablet PO 10 mg TID JOHN Administration Multi-Ingred Cream/Lotion/Oil/Oint 1 applic 06/05/24 09:00 06/13/24 10:56 Mineral Oil/White Petrolatum Ointment EACH EYE 1 applic Q12HR JOHN Administration Ondansetron HCl 4 mg 06/11/24 07:47 06/11/24 13:40 Ondansetron Inj 4 Mg/2 Ml Vial IV PUSH 4 mg Q6H PRN Administration Nausea And Vomiting Pantoprazole Sodium 40 mg 06/06/24 09:00 06/13/24 10:55 Pantoprazole Sodium Iv 40 Mg Vial IV PUSH 40 mg Q12HR JOHN Administration Fluticasone/Salmeterol 2 puff 06/03/24 08:00 06/12/24 19:54 Fluticasone/Salmeterol 115-21 Mcg Inhaler 1 Puff INHALATION Not Given Q12HRT JOHN Sodium Chloride 10 ml 06/05/24 06:00 06/13/24 13:50 Central Line Flush IV PUSH 10 ml Q8HR JOHN Administration Sodium Chloride 20 ml 06/05/24 03:12 Central Line Flush IV PUSH PRN PRN after blood draws Umeclidinium [place] 1 puff 06/03/24 08:00 06/12/24 13:28 Umeclidinium [place] 62.5 Mcg Ellipta INHALATION Not Given DAILYRT [facility] Radiology Results: ITS Impressions Renal Ultrasound 06/04/24 15:06 IMPRESSION: 1. Normal kidneys. No hydronephrosis. Chest/Abdomen/Pelvis CT 06/04/24 19:12 IMPRESSION: 1. Diffuse lung disease, consistent with pulmonary edema versus pneumonia. 2. Moderate volume of ascites. Venous Doppler Study 06/07/24 17:01 IMPRESSION: 1. No deep venous thrombosis. Abdomen Ultrasound 06/10/24 14:47 IMPRESSION: Fat infiltration. Enlarged left lobe of the liver. Slightly thickened wall of the gallbladder. Trace of ascites. Otherwise, normal Limited ultrasound of the abdomen. Abdomen X-Ray 06/11/24 07:58 Impression: Limited exam. NG tube is in satisfactory position. Chest X-Ray 06/13/24 06:05 IMPRESSION: 1. Stable diffuse lung disease, consistent with pulmonary edema versus pneumonia. 2. Cardiomegaly. Labs Labs: Laboratory Tests 06/13/24 04:59 06/13/24 04:59 Calcium 10.5 H Phosphorus 4.2 Magnesium 2.7 H Total Bilirubin 1.6 H AST 119 H ALT 76 H Alkaline Phosphatase 218 H Total Protein 7.0 Albumin 3.3 L
--- NOTE | 2024-06-13 14:38 | PM.IMPN ---
Progress Note: A&P Assessment and Plan (1) Acute respiratory failure: Code(s): J96.00 - Acute respiratory failure, unspecified whether with hypoxia or hypercapnia Status: Acute Assessment and Plan: Patient originally admitted for difficulty voiding. Patient developed HoTN and hypoxia on 06/04 that worsened overnight. ABG showing 7.33/58/66.5 on HFNC. Patient brought to the ICU in the consultant nurse hours of 06/05. She had increasing O2 requirements. CXR showed bilateral diffuse pulmonary infiltrates/pulmonary edema. Respiratory failure related to pulmonary edema, pneumonia and/or ARDS Patient was placed on BiPAP but ultimately intubated on 06/05/24. Despite daily HD, CXR showing edema vs PNA. Continue bronchodilators Fentanyl and Versed for sedation Continue dialysis for fluid removal per nephrology (2) Septic shock: Code(s): A41.9 - Sepsis, unspecified organism; R65.21 - Severe sepsis with septic shock Status: Acute Assessment and Plan: Patient was HoTN in the IMU and transferred to the ICU. Septic shock possibly related to UTI, pneumonia. Rt IJ central line was placed and Levophed started. She received fluids, albumin and midodrine BCx and UCx 06/02 negative. BCx 06/06 grew EColi and Staph Epidermidis. EColi was pansensitive. UCx 06/06 negative. Sputum Cx 06/07 growing yeast. BCx 06/08 nNGTD Patient was on vancomycin and cefepime which were continued. Fluconazole was discontinued given her renal dysfunction Stress dose steroids were started but are off now Off all abx since 06/12. 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 Wean as tolerated. Continue midodrine (3) JOVI (acute kidney injury): Code(s): N17.9 - Acute kidney failure, unspecified Status: Acute Assessment and Plan: Baseline Cr normal in April. Cr 2.1 on admission and has worsened JOVI related to shock, sepsis, UTI/pneumonia, hypoxia, SLE flare and/or CHF. TCK levels are normal. Ueos negative. Urine lytes c/w prerenal picture but patient seems to be volume overloaded She was given IV fluids and albumin overnight; further IV fluids on hold. Clothing Sales Assistant recommended transfer for CRRT but unable to do so at this time; they recommended conventional dialysis. Home Appliances Mechanic consulted and dialysis catheter was placed 06/05 in the right IJ and exchange for the central line HD daily with removal of anywhere from 2.9-3.7L per day since 06/05 (except 06/10) Still appears to be fluid overloaded but UOP is dropping. Continue HD as she tolerates. (4) Pulmonary edema: Code(s): J81.1 - Chronic pulmonary edema Status: Acute Assessment and Plan: CT chest (06/04) showing diffuse lung disease c/w PNA vs pulmonary edema. Pulmonary edema likely related to acute kidney injury, ARDS. COVID, RSV and influenza PCR negative on 06/05 Echo showing normal LV size and fxn (EF 65-70%), Grade I diastolic dysfxn, RV enlargement with normal fxn, moderate bi-atrial enlargement and mild-mod TR. She did not respond to Bumex Control fluid status with HD (5) Type 2 diabetes mellitus: Code(s): E11.9 - Type 2 diabetes mellitus without complications Status: Acute Assessment and Plan: A1c 5.7. The patient's blood glucose was reviewed on 06/13 Glucose remains reasonably well controlled. Continue AccuCheks covering with sliding scale. Hypoglycemia protocol available as needed. Continue to monitor (6) Afib: Code(s): I48.91 - Unspecified atrial fibrillation Status: Acute Assessment and Plan: HR well controlled. Continue amiodarone Eliquis continued Flecainide stopped (7) SLE (systemic lupus erythematosus): Code(s): M32.9 - Systemic lupus erythematosus, unspecified Status: Acute Assessment and Plan: Consider SLE flare causinig her JOVI. Was started on stress dose steroids Nephrology consulted Weaned off steroids (8) Liver cirrhosis secondary to [place]: Code(s): K75.81 - Nonalcoholic steatohepatitis (HOFFMANN); K74.60 - Unspecified cirrhosis of liver Status: Acute Assessment and Plan: Patient has a hx of liver cirrhosis. CT abd without contrast shows normal liver. Mild elevation in AST/ALT that have been up and down RUQ ultrasound 06/10 showing fat infiltration, enlarged left lobe of the liver and slightly thickened wall of the gallbladder. Trace ascites. Hepatitis panel is negative [place] related to congestion. Continue to monitor (9) Morbid obesity with BMI of 50.0-59.9, adult: Code(s): E66.01 - Morbid (severe) obesity due to excess calories; Z68.43 - Body mass index [BMI] 50.0-59.9, adult Status: Acute Assessment and Plan: Once extubated she will need lifestyle changes Plan DVT prophylaxis: Eliquis Code Status: Full code Subjective Date/time seen: 06/13/24 14:38 Interval history: 54yo female with AFib on anticoagulation, PM and DM here for difficulty voiding. Patient had worsening respiratory status and hypotension despite ongoing therapy and was transferred to the ICU in the consultant nurse hours of 06/05. Central line was placed and started on pressor therapy. She was intubated later that morning. Assuming care. Chart reviewed. Patient remains intubated and is unable to provide hx. She awakens easily and shakes head no when asked about pain. Remains on Levophed with attempts to wean. Review of Systems Review of Systems: ROS unobtainable: Yes unobtainable due to endotracheal tube Exam Narrative: AF 98.6 109/49 65 24 93% MV Gen - intubated and on sedation HEENT - ETT secured. OGT secured. Neck - Rt HD catheter wit pigtail in place. Chest - coarse BS anteriorly. CV - RRR S1/S2. Tele showing no significant dysrhythmias Abd - soft, morbidly obese, persistent and massive flank and abd wall edema. - Lai secured draining clear, dark urine Ext - diffuse LE pitting pedal edema. heel pads in place. Neuro - sedated but awakens easily and follows commands. Skin - Warm and dry Objective Data Vital Signs Vital Signs: Vital Signs - 24 hr 06/12/24 16:00 06/12/24 16:00 06/12/24 16:18 Temperature Pulse Rate 61 65 Respiratory Rate Blood Pressure 113/54 L Pulse Oximetry Oxygen Delivery Mechanical Ventilation Fraction of Inspired Oxygen 40 06/12/24 16:18 06/12/24 16:18 06/12/24 16:00 Temperature Pulse Rate 66 66 67 Respiratory Rate 24 H 24 H 24 H Blood Pressure Pulse Oximetry Oxygen Delivery Fraction of Inspired Oxygen 06/12/24 16:50 06/12/24 16:00 06/12/24 16:25 Temperature 97.3 F L Pulse Rate 74 64 65 Respiratory Rate 25 H 24 H Blood Pressure 121/56 L Pulse Oximetry 96 93 Oxygen Delivery Mechanical Ventilation Fraction of Inspired Oxygen 40 06/12/24 18:00 06/12/24 18:01 06/12/24 18:02 Temperature Pulse Rate 61 61 61 Respiratory Rate 24 H 24 H Blood Pressure 111/50 L Pulse Oximetry Oxygen Delivery Fraction of Inspired Oxygen 06/12/24 18:00 06/12/24 18:00 06/12/24 18:35 Temperature 98.9 F Pulse Rate 60 61 61 Respiratory Rate 24 H Blood Pressure 111/50 L 114/53 L Pulse Oximetry 95 Oxygen Delivery Fraction of Inspired Oxygen 06/12/24 19:36 06/12/24 19:30 06/12/24 19:45 Temperature Pulse Rate 60 60 Respiratory Rate Blood Pressure 107/56 L 105/49 L Pulse Oximetry Oxygen Delivery Fraction of Inspired Oxygen 40 06/12/24 20:00 06/12/24 20:00 06/12/24 20:00 Temperature 98.8 F Pulse Rate 62 61 61 Respiratory Rate 24 H 24 H Blood Pressure 104/56 L 104/56 L Pulse Oximetry 93 94 Oxygen Delivery Mechanical Ventilation Fraction of Inspired Oxygen 40 06/12/24 20:05 06/12/24 20:00 06/12/24 20:07 Temperature Pulse Rate 61 61 61 Respiratory Rate 24 H 24 H Blood Pressure Pulse Oximetry Oxygen Delivery Fraction of Inspired Oxygen 06/12/24 20:15 06/12/24 20:30 06/12/24 19:55 Temperature Pulse Rate 62 63 60 Respiratory Rate 24 H Blood Pressure 99/44 L 107/51 L Pulse Oximetry Oxygen Delivery Fraction of Inspired Oxygen 06/12/24 19:55 06/12/24 20:00 06/12/24 21:00 Temperature Pulse Rate 60 62 63 Respiratory Rate 24 H Blood Pressure 105/46 L Pulse Oximetry 95 94 Oxygen Delivery Mechanical Ventilation Fraction of Inspired Oxygen 40 06/12/24 21:00 06/12/24 22:00 06/12/24 22:00 Temperature 99.0 F Pulse Rate 63 64 64 Respiratory Rate 24 H Blood Pressure 105/46 L 114/55 L Pulse Oximetry 94 Oxygen Delivery Fraction of Inspired Oxygen 06/12/24 22:00 06/12/24 22:00 06/12/24 22:00 Temperature Pulse Rate 64 64 64 Respiratory Rate 24 H 24 H Blood Pressure 114/55 L Pulse Oximetry Oxygen Delivery Fraction of Inspired Oxygen 06/12/24 22:32 06/12/24 23:00 06/12/24 23:00 Temperature Pulse Rate 62 66 66 Respiratory Rate 24 H Blood Pressure 109/55 L 109/55 L Pulse Oximetry 93 93 Oxygen Delivery Mechanical Ventilation Fraction of Inspired Oxygen 40 06/12/24 23:15 06/12/24 23:30 06/12/24 23:45 Temperature Pulse Rate 63 62 61 Respiratory Rate Blood Pressure 104/53 L 97/45 L 107/51 L Pulse Oximetry Oxygen Delivery Fraction of Inspired Oxygen 06/13/24 00:00 06/13/24 00:00 06/13/24 00:00 Temperature 98.8 F Pulse Rate 62 62 Respiratory Rate 24 H Blood Pressure 107/51 L Pulse Oximetry 93 Oxygen Delivery Fraction of Inspired Oxygen 40 06/13/24 00:00 06/13/24 00:00 06/13/24 00:00 Temperature Pulse Rate 62 62 62 Respiratory Rate 24 H 24 H Blood Pressure 107/51 L Pulse Oximetry Oxygen Delivery Fraction of Inspired Oxygen 06/13/24 00:00 06/13/24 00:32 06/13/24 00:39 Temperature Pulse Rate 62 62 63 Respiratory Rate 24 H 24 H 24 H Blood Pressure Pulse Oximetry 93 Oxygen Delivery Mechanical Ventilation Fraction of Inspired Oxygen 40 06/13/24 00:39 06/13/24 00:45 06/13/24 01:00 Temperature Pulse Rate 63 68 65 Respiratory Rate 24 H 24 H Blood Pressure 111/54 L 119/53 L Pulse Oximetry 90 Oxygen Delivery Fraction of Inspired Oxygen 06/13/24 01:00 06/13/24 01:54 06/13/24 01:56 Temperature Pulse Rate 64 67 67 Respiratory Rate 24 H Blood Pressure 119/53 L Pulse Oximetry 91 Oxygen Delivery Mechanical Ventilation Fraction of Inspired Oxygen 40 06/13/24 02:05 06/13/24 02:00 06/13/24 02:00 Temperature 99.0 F Pulse Rate 65 67 67 Respiratory Rate 24 H 24 H Blood Pressure 111/54 L Pulse Oximetry 92 Oxygen Delivery Fraction of Inspired Oxygen 06/13/24 02:00 06/13/24 02:00 06/13/24 02:00 Temperature Pulse Rate 67 67 67 Respiratory Rate 24 H 24 H Blood Pressure 111/54 L Pulse Oximetry Oxygen Delivery Fraction of Inspired Oxygen 06/13/24 03:00 06/13/24 03:00 06/13/24 04:00 Temperature 99.1 F Pulse Rate 63 63 61 Respiratory Rate 24 H 24 H Blood Pressure 103/52 L 103/52 L 107/51 L Pulse Oximetry 93 92 Oxygen Delivery Fraction of Inspired Oxygen 06/13/24 04:00 06/13/24 04:00 06/13/24 04:00 Temperature Pulse Rate 61 61 61 Respiratory Rate 24 H 24 H Blood Pressure 107/51 L Pulse Oximetry Oxygen Delivery Fraction of Inspired Oxygen 06/13/24 04:00 06/13/24 05:00 06/13/24 05:00 Temperature Pulse Rate 68 66 Respiratory Rate 24 H Blood Pressure 120/52 L 120/52 L Pulse Oximetry 94 Oxygen Delivery Fraction of Inspired Oxygen 40 06/13/24 05:15 06/13/24 04:00 06/13/24 04:00 Temperature Pulse Rate 66 61 68 Respiratory Rate 24 H Blood Pressure 106/51 L Pulse Oximetry 93 Oxygen Delivery Mechanical Ventilation Fraction of Inspired Oxygen 40 06/13/24 05:23 06/13/24 06:00 06/13/24 06:00 Temperature 98.7 F Pulse Rate 68 64 64 Respiratory Rate 24 H Blood Pressure 100/46 L Pulse Oximetry 92 91 Oxygen Delivery Mechanical Ventilation Fraction of Inspired Oxygen 40 06/13/24 06:15 06/13/24 06:30 06/13/24 06:00 Temperature Pulse Rate 64 64 64 Respiratory Rate 24 H Blood Pressure 103/45 L 112/49 L Pulse Oximetry Oxygen Delivery Fraction of Inspired Oxygen 06/13/24 06:00 06/13/24 06:48 06/13/24 07:00 Temperature Pulse Rate 64 64 68 Respiratory Rate 24 H Blood Pressure 108/47 L 97/59 L Pulse Oximetry Oxygen Delivery Fraction of Inspired Oxygen 06/13/24 06:40 06/13/24 06:35 06/13/24 07:15 Temperature 98.5 F Pulse Rate 64 68 Respiratory Rate 24 H Blood Pressure 112/49 L 106/50 L Pulse Oximetry 90 Oxygen Delivery Fraction of Inspired Oxygen 40 06/13/24 07:30 06/13/24 07:45 06/13/24 08:00 Temperature Pulse Rate 68 68 70 Respiratory Rate Blood Pressure 111/49 L 110/49 L 112/48 L Pulse Oximetry Oxygen Delivery Fraction of Inspired Oxygen 06/13/24 08:15 06/13/24 08:00 06/13/24 08:29 Temperature 98.8 F Pulse Rate 68 70 69 Respiratory Rate 24 H 24 H Blood Pressure 107/98 H 112/48 L Pulse Oximetry 94 Oxygen Delivery Fraction of Inspired Oxygen 06/13/24 08:23 06/13/24 08:24 06/13/24 08:30 Temperature Pulse Rate 68 68 69 Respiratory Rate 25 H Blood Pressure 108/46 L Pulse Oximetry 93 Oxygen Delivery Mechanical Ventilation Fraction of Inspired Oxygen 40 06/13/24 08:45 06/13/24 09:00 06/13/24 09:15 Temperature Pulse Rate 68 69 66 Respiratory Rate Blood Pressure 108/49 L 108/50 L Pulse Oximetry Oxygen Delivery Fraction of Inspired Oxygen 06/13/24 09:30 06/13/24 09:45 06/13/24 10:00 Temperature Pulse Rate 64 61 61 Respiratory Rate Blood Pressure 105/48 L 106/47 L 105/49 L Pulse Oximetry Oxygen Delivery Fraction of Inspired Oxygen 06/13/24 10:19 06/13/24 10:32 06/13/24 08:00 Temperature 97.7 F Pulse Rate 62 70 71 Respiratory Rate 24 H Blood Pressure 101/45 L 111/50 L Pulse Oximetry 95 Oxygen Delivery Fraction of Inspired Oxygen 06/13/24 08:00 06/13/24 08:00 06/13/24 10:00 Temperature Pulse Rate 62 Respiratory Rate Blood Pressure Pulse Oximetry Oxygen Delivery Mechanical Ventilation Fraction of Inspired Oxygen 40 40 06/13/24 08:00 06/13/24 09:00 06/13/24 10:00 Temperature Pulse Rate 70 69 61 Respiratory Rate Blood Pressure 112/48 L 108/49 L 105/59 L Pulse Oximetry Oxygen Delivery Fraction of Inspired Oxygen 06/13/24 10:00 06/13/24 08:00 06/13/24 08:00 Temperature Pulse Rate 61 70 70 Respiratory Rate 24 H 24 H 24 H Blood Pressure Pulse Oximetry Oxygen Delivery Fraction of Inspired Oxygen 06/13/24 10:00 06/13/24 10:00 06/13/24 10:55 Temperature Pulse Rate 61 61 68 Respiratory Rate 24 H 24 H Blood Pressure 105/49 L Pulse Oximetry 94 Oxygen Delivery Fraction of Inspired Oxygen 06/13/24 11:00 06/13/24 11:08 06/13/24 11:16 Temperature Pulse Rate 67 67 69 Respiratory Rate Blood Pressure 118/51 L 109/49 L Pulse Oximetry 94 Oxygen Delivery Mechanical Ventilation Fraction of Inspired Oxygen 40 06/13/24 11:30 06/13/24 11:55 06/13/24 11:58 Temperature Pulse Rate 65 Respiratory Rate Blood Pressure 113/50 L Pulse Oximetry Oxygen Delivery Mechanical Ventilation Fraction of Inspired Oxygen 40 40 06/13/24 12:00 06/13/24 12:00 06/13/24 12:00 Temperature 98.6 F Pulse Rate 98 63 63 Respiratory Rate 24 H 24 H Blood Pressure 116/50 L 116/50 L Pulse Oximetry 96 Oxygen Delivery Fraction of Inspired Oxygen 06/13/24 12:00 06/13/24 12:15 06/13/24 12:31 Temperature Pulse Rate 62 66 64 Respiratory Rate 24 H Blood Pressure 114/49 L 111/51 L Pulse Oximetry Oxygen Delivery Fraction of Inspired Oxygen 06/13/24 12:00 06/13/24 13:02 06/13/24 13:15 Temperature Pulse Rate 64 65 65 Respiratory Rate Blood Pressure 114/55 L 112/53 L Pulse Oximetry Oxygen Delivery Fraction of Inspired Oxygen 06/13/24 13:36 06/13/24 13:36 06/13/24 13:44 Temperature Pulse Rate 65 65 65 Respiratory Rate 24 H 24 H Blood Pressure Pulse Oximetry 96 Oxygen Delivery Mechanical Ventilation Fraction of Inspired Oxygen 40 06/13/24 13:47 06/13/24 14:03 06/13/24 14:04 Temperature Pulse Rate 65 64 Respiratory Rate 24 H Blood Pressure 109/49 L Pulse Oximetry 93 Oxygen Delivery Mechanical Ventilation Fraction of Inspired Oxygen 30 06/13/24 14:04 06/13/24 14:00 Temperature Pulse Rate 65 65 Respiratory Rate 24 H Blood Pressure Pulse Oximetry Oxygen Delivery Fraction of Inspired Oxygen Intake/Output Intake/Output: Intake & Output 06/10/24 06/11/24 06/12/24 06/13/24 23:59 23:59 23:59 23:59 Intake Total 1873.1 1876.8 1985.4 850.2 Output Total 800 3600 3675 4075 Balance 1073.1 -1723.2 -1689.6 -3224.8 Meds/Results Medications: Active Medications Generic Name Dose Route Start Last Admin Trade Name Freq PRN Reason Stop Dose Admin Acetaminophen 650 mg 06/07/24 21:53 06/07/24 22:30 Acetaminophen Elixir 325 Mg/10.15 Ml Udc PO 650 mg Q6H PRN Administration Mild Pain (1-3) or Fever Albuterol/Ipratropium 3 ml 06/05/24 11:15 06/13/24 13:36 Ipratropium 0.5 Mg/Albuterol Sulfate 2.5 Mg Ampul.Neb 3 Ml INHALATION 3 ml Q6HRT JOHN Administration Amiodarone HCl 200 mg 06/02/24 21:00 06/13/24 10:55 Amiodarone Hcl 200 Mg Tablet PO 200 mg Q12HR JOHN Administration Apixaban 5 mg 06/06/24 09:30 06/13/24 10:55 Apixaban 5 Mg Tablet PO 5 mg Q12HR JOHN Administration Dextrose 12.5 gm 06/05/24 11:46 Dextrose 50% 25 Gm/50 Ml Syringe IV PUSH PRN PRN Hypoglycemia Protocol Epoetin Shayan-epbx 4,000 units 06/13/24 20:00 06/13/24 07:18 Epoetin Shayan-Epbx 4,000 Units/Ml Vial IV PUSH 06/13/24 20:01 4,000 units ONCE ONE Administration Glucagon 1 mg 06/05/24 11:46 Glucagon For Inj 1 Mg Vial IM PRN PRN Hypoglycemia Protocol Glucose 15 gm 06/05/24 11:46 Glucose Oral Gel 15 Gm Of Glucse In 37.5 Gm Tube PO PRN PRN Hypoglycemia Protocol Norepinephrine Bitartrate 8 mg in 250 mls @ 16.875 mls/hr 06/05/24 00:35 06/13/24 14:03 Levophed 8 Mg/D5w 250 Ml IV CONT 9 mcg/min .[id number] JOHN 16.88 mls/hr Titration Protocol 9 MCG/MIN Fentanyl Citrate 2,500 mcg in 250 mls @ 5 mls/hr 06/05/24 08:35 06/13/24 14:04 Fentanyl 2,500 Mcg/Ns 250 Ml IV CONT 50 mcg/hr .Q50H JOHN 5 mls/hr Titration Protocol 50 MCG/HR Midazolam HCl 100 mg in 100 mls @ 1 mls/hr 06/05/24 08:35 06/13/24 14:04 Versed 100 Mg/Ns 100 Ml IV CONT 1 mg/hr .Q72H JOHN 1 mls/hr Titration Protocol 1 MG/HR Dextrose 1,000 mls @ 100 mls/hr 06/05/24 11:46 Dextrose 5% 1,000 Ml IVPB PRN PRN Hypoglycemia Protocol Albumin Human 50 mls @ 999 mls/hr 06/08/24 09:50 06/12/24 11:35 Albutein IVPB 07/08/24 09:49 999 mls/hr Q10M PRN Administration HYPOTENSION Insulin Aspart 3 - 6 units 06/05/24 12:00 06/13/24 12:24 Insulin Aspart (*Bkc) 100 Units/Ml SUB-Q Not Given Q6HR [facility] Protocol Midodrine 10 mg 06/05/24 09:00 06/13/24 13:49 Midodrine Hcl 10 Mg Tablet PO 10 mg TID [facility] Administration Multi-Ingred Cream/Lotion/Oil/Oint 1 applic 06/05/24 09:00 06/13/24 10:56 Mineral Oil/White Petrolatum Ointment EACH EYE 1 applic Q12HR JOHN Administration Ondansetron HCl 4 mg 06/11/24 07:47 06/11/24 13:40 Ondansetron Inj 4 Mg/2 Ml Vial IV PUSH 4 mg Q6H PRN Administration Nausea And Vomiting Pantoprazole Sodium 40 mg 06/06/24 09:00 06/13/24 10:55 Pantoprazole Sodium Iv 40 Mg Vial IV PUSH 40 mg Q12HR [facility] Administration Fluticasone/Salmeterol 2 puff 06/03/24 08:00 06/12/24 19:54 Fluticasone/Salmeterol 115-21 Mcg Inhaler 1 Puff INHALATION Not Given Q12HRT [facility] Sodium Chloride 10 ml 06/05/24 06:00 06/13/24 13:50 Central Line Flush IV PUSH 10 ml Q8HR JOHN Administration Sodium Chloride 20 ml 06/05/24 03:12 Central Line Flush IV PUSH PRN PRN after blood draws Umeclidinium [place] 1 puff 06/03/24 08:00 06/12/24 13:28 Umeclidinium [place] 62.5 Mcg Ellipta INHALATION Not Given DAILYRT [facility] Radiology Results: ITS Impressions Renal Ultrasound 06/04/24 15:06 IMPRESSION: 1. Normal kidneys. No hydronephrosis. Chest/Abdomen/Pelvis CT 06/04/24 19:12 IMPRESSION: 1. Diffuse lung disease, consistent with pulmonary edema versus pneumonia. 2. Moderate volume of ascites. Venous Doppler Study 06/07/24 17:01 IMPRESSION: 1. No deep venous thrombosis. Abdomen Ultrasound 06/10/24 14:47 IMPRESSION: Fat infiltration. Enlarged left lobe of the liver. Slightly thickened wall of the gallbladder. Trace of ascites. Otherwise, normal Limited ultrasound of the abdomen. Abdomen X-Ray 06/11/24 07:58 Impression: Limited exam. NG tube is in satisfactory position. Chest X-Ray 06/13/24 06:05 IMPRESSION: 1. Stable diffuse lung disease, consistent with pulmonary edema versus pneumonia. 2. Cardiomegaly. Labs Labs: Laboratory Results - last 24 hr 06/12/24 06/12/24 06/13/24 18:10 23:05 04:59 WBC 19.6 H RBC 3.67 L Hgb 10.0 L Hct 32.1 L MCV 87.5 MCH 27.2 MCHC 31.2 L RDW 18.7 H Plt Count 329 MPV 10.1 Immature Gran % (Auto) 1.6 H Neut % (Auto) 82.2 H Lymph % (Auto) 8.1 L [place] % (Auto) 7.2 Eos % (Auto) 0.7 Baso % (Auto) 0.2 Lymph # (Auto) 1.59 [place] # (Auto) 1.4 H Eos # (Auto) 0.1 Baso # (Auto) 0.0 Abs Immat Gran (auto) 0.31 H Absolute Neuts (auto) 16.1 H Absolute Nucleated RBC 0.000 Nucleated RBC % 0.0 Puncture Site ABG pH ABG pCO2 ABG pO2 ABG PO2/FiO2 Ratio ABG HCO3 ABG O2 Saturation ABG O2 Content ABG Base Excess A-a Gradient Oxyhemoglobin Carboxyhemoglobin Methemoglobin Reduced Hemoglobin Total Hemoglobin O2 Delivery Device O2 Liters/Min Minute Volume Vent Rate Vent Mode FiO2 Tidal Volume PEEP Peak Inspir Pressure Pressure Support Sodium 132 L Potassium 4.1 Chloride 97 L Carbon Dioxide 26 Anion Gap 9 BUN 88 H D Creatinine 4.00 H Estim Creat Clear Calc 24 Estimated GFR 12 L Glucose 180 H POC Capillary Glucose 178 H 172 H Calcium 10.5 H Phosphorus 4.2 Magnesium 2.7 H Total Bilirubin 1.6 H AST 119 H ALT 76 H Alkaline Phosphatase 218 H Total Protein 7.0 Albumin 3.3 L 06/13/24 06/13/24 05:10 12:02 WBC RBC Hgb Hct MCV MCH MCHC RDW Plt Count MPV Immature Gran % (Auto) Neut % (Auto) Lymph % (Auto) [place] % (Auto) Eos % (Auto) Baso % (Auto) Lymph # (Auto) [place] # (Auto) Eos # (Auto) Baso # (Auto) Abs Immat Gran (auto) Absolute Neuts (auto) Absolute Nucleated RBC Nucleated RBC % Puncture Site Right radial ABG pH 7.390 ABG pCO2 41.9 ABG pO2 71.5 L ABG PO2/FiO2 Ratio 1.79 ABG HCO3 24.8 ABG O2 Saturation 94.3 L ABG O2 Content 14.6 L ABG Base Excess -0.2 A-a Gradient 165.5 Oxyhemoglobin 93.7 Carboxyhemoglobin 0.3 Methemoglobin 0.1 Reduced Hemoglobin 5.9 H Total Hemoglobin 11.0 L O2 Delivery Device Ventilator O2 Liters/Min Not Reportable Minute Volume Not Reportable Vent Rate 24 Vent Mode Cmv FiO2 40 Tidal Volume 400 PEEP 12 Peak Inspir Pressure Not Reportable Pressure Support Not Reportable Sodium Potassium Chloride Carbon Dioxide Anion Gap BUN Creatinine Estim Creat Clear Calc Estimated GFR Glucose POC Capillary Glucose 182 H Calcium Phosphorus Magnesium Total Bilirubin AST ALT Alkaline Phosphatase Total Protein Albumin
[2024-06-13 17:15] LABS: Glucose Point of Care 151 mg/dl (65-105)
[2024-06-13] MEDS: NOREPINEPHRINE 8 MG/D5W 250 ML 8 MG/250 ML BAG 13.13 MG IV CONT (17:16)
[2024-06-14] VITALS (55 sets, daily range): BP systolic 92–118; BP diastolic 42–55; PULSE 59–68; RESP 20–29; TEMP 0–37.3; O2SAT 92–100
[2024-06-14] MEDS: IPRATROPIUM 0.5 MG/ALBUTEROL SULFATE 2.5 MG AMPUL.NEB 3 ML INHALATION ×4 (02:22→20:26)
[2024-06-14 05:03] LABS: Alveolar/Arterial O2 Gradient 140.1 mmHg; Base Excess ABG 1.7 mEq/l (+/-2.0); Fractional Inspired Oxygen 35 %; HCO3 ABG 25.8 mEq/l (22.0-26.0); Oxygen Content ABG 13.8 %vol (16.0-22.0); Oxygen Saturation ABG 93.3 % (95.0-100.0); Oxyhemoglobin 91.6 % THb (90.0-100.0); PCO2 ABG 38.9 mmHg (35.0-45.0); PO2 ABG 64.2 mmHg (80.0-100.0); PO2 FiO2 Ratio Arterial Blood 1.83 %; Total Hemoglobin 10.7 g/dL (12.0-18.0)
[2024-06-14 05:05] LABS: Arterial Blood Gas Ventilator rate 24 /MIN; Device VENTILATOR; Modified Allen's Test Pass; Site Drawn LEFT RADIAL
[2024-06-14 05:06] LABS: Arterial Blood Gas PEEP 10 cmH2O; Arterial Blood Gas Tidal Volume 400 ml; Arterial Blood Gas Vent Mode CMV
[2024-06-14 06:00] LABS: Basophils Percent Auto 0.1 % (0.2-1.2); Eosinophils Absolute Auto 0.2 K/mm3 (0-0.3); Eosinophils Percent Auto 1.2 % (0-4.4); Hematocrit 31.6 % (37.0-47.0); Hemoglobin 9.8 g/dL (12.0-15.0); Immature Granulocyte Absolute 0.24 K/mm3 (0.00-0.031); Immature Granulocyte Percent A 1.5 % (0-0.5); Lymphocytes Absolute Auto 1.72 K/mm3 (0.9-3.2); Lymphocytes Percent Auto 10.5 % (18.3-44.2); Mean Corpuscular Hemoglobin 27.2 pg (26-34); Mean Corpuscular Volume 87.8 fl (80-100); Mean Platelet Volume 10.2 fl (7.4-10.4); Monocytes Absolute Auto 1.2 K/mm3 (0.1-0.6); Monocytes Percent Auto 7.4 % (2.6-8.5); Neutrophils Percent Auto 79.3 % (45.5-73.1); Nucleated Red Blood Cells Perc 0.2 % (0.0-0.2); Platelet Count Result 303 k/mm3 (150-375); Red Cell Distribution Width 19.2 % (11.5-14.5); White Blood Count 16.4 K/mm3 (4.5-10.0)
[2024-06-14 06:27] LABS: Alanine Aminotransferase 73 U/L (6-35); Albumin Level 3.2 g/dL (3.5-5.1); Alkaline Phosphatase 236 U/L (38-126); Anion Gap 9 mmol/L (4-12); Aspartate Amino Transferase 123 U/L (14-36); Bilirubin,Total 1.6 mg/dL (0.2-1.3); Blood Urea Nitrogen 69 mg/dL (7-17); Calcium 10.1 mg/dL (8.4-10.2); Carbon Dioxide 28 mmol/L (22-30); Chloride 96 mmol/L (98-107); Estimated CRCL calculation 26 ml/min; Estimated Glomerular Filt Rate 13; Glucose 157 mg/dL (65-110); Magnesium 2.6 mg/dL (1.6-2.3); Phosphorus 3.4 mg/dL (2.5-4.5); Potassium 4.3 mmol/L (3.4-5.0); Sodium 133 mmol/L (137-145)
[2024-06-14] MEDS: CENTRAL LINE FLUSH 10 ML IV PUSH ×3 (06:55→20:31)
[2024-06-14] MEDS: MIDODRINE HCL 10 MG TABLET PO ×3 (08:03→17:15)
[2024-06-14] MEDS: AMIODARONE HCL 200 MG TABLET PO ×2 (08:03→20:30)
[2024-06-14] MEDS: APIXABAN 5 MG TABLET PO ×2 (08:03→20:30)
[2024-06-14] MEDS: MINERAL OIL/WHITE PETROLATUM OINTMENT 1 APPLIC EACH EYE ×2 (08:13→20:31)
[2024-06-14 08:21] LABS: Glucose Point of Care 163 mg/dl (65-105)
--- NOTE | 2024-06-14 10:37 | P.PNINT_ITS ---
Progress Note: A&P Assessment and Plan (1) Acute respiratory failure: Code(s): J96.00 - Acute respiratory failure, unspecified whether with hypoxia or hypercapnia Status: Acute Assessment and Plan: Patient with increasing oxygen requirements in the last 24 hours, brought to the ICU after midnight on 06/05/2024, chest x-ray showed bilateral diffuse pulmonary infiltrates/pulmonary edema. Patient was placed on BiPAP. ABG showed hypercapnic and hypoxemic respiratory failure -etiology likely related to pulmonary edema, pneumonia, ARDS -06/05: patient intubated for impending respiratory failure. Intubation was slightly challenging secondary to body habitus, small mouth, large tongue, redundant tissue in the hypopharynx and anterior vocal cords requiring cricoid pressure and use of glide scope. -patient placed on CMV mode of ventilation, wean PEEP down to 8, titrate FiO2, decrease rate to 20 -chest x-ray reviewed and shows improvement although still has bilateral infiltrates -continue bronchodilators - fentanyl and Versed infusion for analgosedation, will maintain RASS of -2 -continue dialysis for fluid removal again today (2) Septic shock: Code(s): A41.9 - Sepsis, unspecified organism; R65.21 - Severe sepsis with septic shock Status: Acute Assessment and Plan: Septic shock could be related to UTI, pneumonia -patient was hypotensive in the intermediate Unit and was transferred to the ICU which she received fluids, albumin -continue norepinephrine, will maintain MAP > 65 mmHg or SBP > 100 mmHg adequate end organ perfusion -off vasopressin since 06/06/2024 evening -off vancomycin -c completed cefepime for a total of 7 days -fluconazole was discontinued given her renal dysfunction -off stress dose steroids -continue midodrine 06/05/2024: Echocardiogram Summary 1. Left ventricular chamber dimension is normal. 2. Left ventricular systolic function is normal, estimated at 65-70%. 3. The left ventricular diastolic function is grade I diastolic dysfunction. 4. Right ventricular chamber dimension is moderately enlarged. 5. Right ventricular systolic function is normal. 6. Left atrial chamber dimension is moderately enlarged. 7. Right atrial chamber dimension is moderately enlarged. 8. There is mild to moderate tricuspid valve regurgitation. (3) JOVI (acute kidney injury): Code(s): N17.9 - Acute kidney failure, unspecified Status: Acute Assessment and Plan: Patient with acute kidney injury, this morning her creatinine is 4.60 (creatinine on admission on 06/02/2024 was 2.10 and her creatinine on 04/26/2024 was 0.90) -etiology for acute kidney injury could be multifactorial, hypotension, shock, sepsis, UTI/pneumonia, hypoxia,? SLE flare, CHF, -CK levels are within normal limits -urine eosinophils were negative -urine electrolytes showed prerenal picture, patient seems to be volume overloaded -was given IV fluids and albumin overnight, will hold fluids for now -discussed with door core assembler at [facility], feels that the patient is unstable to be transferred at this time for CRRT, recommended conventional dial ysis. -discussed with bank representative at [facility], agrees to conventional dialysis at this time -06/05: dialysis catheter was placed in the right IJ and exchange for the central line -06/05: Initiated dialysis, with 3000 mL of fluid removal -06/06: Dialysis with 3000 mL in fluid removal -06/07: Dialysis with 3700 mL in fluid removal -06/08: Dialysis with 2900 mL in fluid removal -06/09: Dialysis with 3000 mL in fluid removal -06/10: No dialysis -06/12: Patient was dialyzed and 3.1 P L fluid was removed -06/13 getting dialyzed again today. 4 L removed - 06/14: Patient getting dialyzed again today (4) Pulmonary edema: Code(s): J81.1 - Chronic pulmonary edema Status: Acute Assessment and Plan: Pulmonary edema likely related to acute kidney injury, ARDS, -did not respond to Bumex -continue fluid removal with dialysis (5) Type 2 diabetes mellitus: Code(s): E11.9 - Type 2 diabetes mellitus without complications Status: Acute Assessment and Plan: SSI and accucheks HbA1C is 5.7 this admission (6) Afib: Code(s): I48.91 - Unspecified atrial fibrillation Status: Acute Assessment and Plan: continue amiodarone and Eliquis - flecainide was stopped (7) SLE (systemic lupus erythematosus): Code(s): M32.9 - Systemic lupus erythematosus, unspecified Status: Acute Assessment and Plan: ? SLE flare Off steroids (8) Liver cirrhosis secondary to [place]OFFMANN: Code(s): K75.81 - Nonalcoholic steatohepatitis (HOFFMANN); K74.60 - Unspecified cirrhosis of liver Status: Acute Assessment and Plan: Continues to have mild elevation in LFTs and bilirubin which is stable 06/10/2024: RUQ ultrasound: Fat infiltration. Enlarged left lobe of the liver. Slightly thickened wall of the gallbladder. Trace of ascites. Otherwise, normal Limited ultrasound of the abdomen. -06/10/2024: Hepatitis panel is negative -continue to monitor (9) GERD (gastroesophageal reflux disease): Code(s): K21.9 - Gastro-esophageal reflux disease without esophagitis Status: Acute Assessment and Plan: Continue Protonix (10) Morbid obesity with BMI of 50.0-59.9, adult: Code(s): E66.01 - Morbid (severe) obesity due to excess calories; Z68.43 - Body mass index [BMI] 50.0-59.9, adult Status: Acute Assessment and Plan: Once extubated she will need lifestyle changes Plan DVT prophylaxis: Eliquis Stress ulcer prophylaxis: Protonix Nutrition: Tube feeds at goal and tolerating Code Status: Full code Critical Care Time Spent: 32 minutes Due to a high probability of clinically significant, life threatening deterioration, the patient required my highest level of preparedness to intervene emergently and I personally spent this critical care time directly and personally managing the patient. This critical care time included obtaining a history; examining the patient; pulse oximetry; ordering and review of studies; arranging urgent treatment with development of a management plan; evaluation of patient's response to treatment; frequent reassessment; and discussions with other providers. It was exclusive of separately billable procedures and treating other patients and teaching time. Please see Assessment and Plan section and the rest of the note for further information on patient assessment and treatment This dictation may have been done utilizing a voice recognition system. Attempts have been made to correct errors. However, there may be uncorrected grammatical, spelling, and recognitions errors present. Subjective Date/time seen: 06/14/24 Overnight events reviewed. Afebrile Continues to be on mechanical ventilation 35% FiO2 Tolerating tube feeds Minimal urine output Continues to be on vasopressors Levophed at 7 Continues to be sedated with Versed and fentanyl Other Vitals acceptable Interval history: Reason for consult: Acute respiratory failure, septic shock, acute kidney injury, pulmonary edema 06/05: Intubated Review of Systems Review of Systems: ROS unobtainable: Yes unobtainable due to endotracheal tube, unobtainable due to medical condition and unobtainable due to mental status Exam Narrative: General: Morbidly obese female currently intubated and sedated in no acute distress HEENT:? Pupils equal and reactive bilaterally, sclera is clear, ETT in place Neck:, short and thick neck, Respiratory:? Decreased and coarse breath sounds bilaterally, no wheezing, Cardiac:? S1-S2 is normal, regular rate and rhythm Abdomen:? Morbid obesity, soft, hypoactive bowel sounds tenderness in right upper quadrant Extremities:? Bilateral lower extremity pitting edema improving, wrinkling of skin on the feet are noted, palpable pedal pulses. Right calf erythema has improved, Neuro:? Patient is intubated, sedated, opens her eyes, follows simple commands in all extremities and nods to questions Skin:? Erythema in the intertriginous region and under her pannus, skin is dry and warm Psych:? Unable to assess at this time Objective Data Vital Signs Vital Signs: Vital Signs - 24 hr 06/13/24 10:55 06/13/24 11:00 06/13/24 11:08 Temperature Pulse Rate 68 67 67 Respiratory Rate Blood Pressure 118/51 L Pulse Oximetry 94 Oxygen Delivery Mechanical Ventilation Fraction of Inspired Oxygen 40 06/13/24 11:16 06/13/24 11:30 06/13/24 11:55 Temperature Pulse Rate 69 65 Respiratory Rate Blood Pressure 109/49 L 113/50 L Pulse Oximetry Oxygen Delivery Mechanical Ventilation Fraction of Inspired Oxygen 40 06/13/24 11:58 06/13/24 12:00 06/13/24 12:00 Temperature 37.0 C Pulse Rate 98 63 Respiratory Rate 24 H Blood Pressure 116/50 L 116/50 L Pulse Oximetry 96 Oxygen Delivery Fraction of Inspired Oxygen 40 06/13/24 12:00 06/13/24 12:00 06/13/24 12:15 Temperature Pulse Rate 63 62 66 Respiratory Rate 24 H 24 H Blood Pressure 114/49 L Pulse Oximetry Oxygen Delivery Fraction of Inspired Oxygen 06/13/24 12:31 06/13/24 12:00 06/13/24 13:02 Temperature Pulse Rate 64 64 65 Respiratory Rate Blood Pressure 111/51 L 114/55 L Pulse Oximetry Oxygen Delivery Fraction of Inspired Oxygen 06/13/24 13:15 06/13/24 13:36 06/13/24 13:36 Temperature Pulse Rate 65 65 65 Respiratory Rate 24 H Blood Pressure 112/53 L Pulse Oximetry 96 Oxygen Delivery Mechanical Ventilation Fraction of Inspired Oxygen 40 06/13/24 13:44 06/13/24 13:47 06/13/24 14:03 Temperature Pulse Rate 65 65 Respiratory Rate 24 H Blood Pressure 109/49 L Pulse Oximetry 93 Oxygen Delivery Mechanical Ventilation Fraction of Inspired Oxygen 30 06/13/24 14:04 06/13/24 14:04 06/13/24 14:00 Temperature Pulse Rate 64 65 65 Respiratory Rate 24 H 24 H Blood Pressure Pulse Oximetry Oxygen Delivery Fraction of Inspired Oxygen 06/13/24 14:00 06/13/24 15:08 06/13/24 15:30 Temperature Pulse Rate 65 66 63 Respiratory Rate 24 H Blood Pressure 109/49 L 112/50 L 119/56 L Pulse Oximetry 93 Oxygen Delivery Fraction of Inspired Oxygen 06/13/24 15:46 06/13/24 16:02 06/13/24 16:04 Temperature Pulse Rate 63 61 61 Respiratory Rate 24 H Blood Pressure 100/45 L 111/49 L Pulse Oximetry Oxygen Delivery Fraction of Inspired Oxygen 06/13/24 16:04 06/13/24 16:00 06/13/24 16:00 Temperature Pulse Rate 61 Respiratory Rate 24 H Blood Pressure Pulse Oximetry Oxygen Delivery Mechanical Ventilation Fraction of Inspired Oxygen 30 30 06/13/24 16:59 06/13/24 17:00 06/13/24 16:00 Temperature 37.2 C Pulse Rate 67 66 62 Respiratory Rate 24 H Blood Pressure 117/53 L 111/49 L Pulse Oximetry 93 93 Oxygen Delivery Mechanical Ventilation Fraction of Inspired Oxygen 30 06/13/24 17:16 06/13/24 17:16 06/13/24 18:03 Temperature Pulse Rate 66 66 63 Respiratory Rate Blood Pressure 102/48 L 102/48 L 111/52 L Pulse Oximetry Oxygen Delivery Fraction of Inspired Oxygen 06/13/24 18:04 06/13/24 18:04 06/13/24 16:00 Temperature Pulse Rate 63 62 60 Respiratory Rate 24 H 24 H Blood Pressure Pulse Oximetry Oxygen Delivery Fraction of Inspired Oxygen 06/13/24 18:00 06/13/24 18:00 06/13/24 19:53 Temperature Pulse Rate 67 67 61 Respiratory Rate 24 H Blood Pressure 116/55 L Pulse Oximetry 91 Oxygen Delivery Fraction of Inspired Oxygen 06/13/24 20:00 06/13/24 20:00 06/13/24 20:00 Temperature Pulse Rate 62 62 Respiratory Rate 24 H Blood Pressure Pulse Oximetry 92 Oxygen Delivery Mechanical Ventilation Fraction of Inspired Oxygen 30 30 06/13/24 20:00 06/13/24 20:00 06/13/24 20:00 Temperature Pulse Rate 60 60 60 Respiratory Rate 24 H 24 H Blood Pressure Pulse Oximetry Oxygen Delivery Fraction of Inspired Oxygen 06/13/24 20:29 06/13/24 20:30 06/13/24 18:59 Temperature Pulse Rate 62 62 62 Respiratory Rate 24 H 24 H Blood Pressure Pulse Oximetry 92 92 Oxygen Delivery Mechanical Ventilation Fraction of Inspired Oxygen 30 06/13/24 19:00 06/13/24 19:01 06/13/24 19:15 Temperature Pulse Rate 62 63 61 Respiratory Rate 24 H 24 H 24 H Blood Pressure 116/53 L Pulse Oximetry 92 92 92 Oxygen Delivery Fraction of Inspired Oxygen 06/13/24 19:16 06/13/24 19:30 06/13/24 19:31 Temperature Pulse Rate 61 60 60 Respiratory Rate 24 H 24 H 24 H Blood Pressure 103/45 L 105/49 L Pulse Oximetry 92 90 91 Oxygen Delivery Fraction of Inspired Oxygen 06/13/24 19:45 06/13/24 19:46 06/13/24 20:00 Temperature Pulse Rate 60 60 60 Respiratory Rate 24 H 24 H 24 H Blood Pressure 105/49 L Pulse Oximetry 92 91 91 Oxygen Delivery Fraction of Inspired Oxygen 06/13/24 20:01 06/13/24 20:15 06/13/24 20:16 Temperature 36.6 C Pulse Rate 62 60 60 Respiratory Rate 24 H 24 H 24 H Blood Pressure 104/51 L 110/51 L Pulse Oximetry 94 91 92 Oxygen Delivery Fraction of Inspired Oxygen 06/13/24 20:30 06/13/24 20:31 06/13/24 20:45 Temperature Pulse Rate 63 63 61 Respiratory Rate 24 H 24 H 24 H Blood Pressure 122/58 L Pulse Oximetry 100 96 90 Oxygen Delivery Fraction of Inspired Oxygen 06/13/24 20:46 06/13/24 21:00 06/13/24 21:01 Temperature Pulse Rate 60 60 60 Respiratory Rate 24 H 24 H 24 H Blood Pressure 103/47 L 105/48 L Pulse Oximetry 89 L 90 89 L Oxygen Delivery Fraction of Inspired Oxygen 06/13/24 21:15 06/13/24 21:16 06/13/24 21:30 Temperature Pulse Rate 66 66 64 Respiratory Rate 24 H 24 H 24 H Blood Pressure 109/47 L Pulse Oximetry 90 90 91 Oxygen Delivery Fraction of Inspired Oxygen 06/13/24 21:31 06/13/24 23:00 06/13/24 22:00 Temperature Pulse Rate 66 64 61 Respiratory Rate 24 H Blood Pressure 107/50 L Pulse Oximetry 91 89 L Oxygen Delivery Mechanical Ventilation Fraction of Inspired Oxygen 30 06/13/24 22:00 06/13/24 22:00 06/13/24 22:00 Temperature Pulse Rate 61 61 61 Respiratory Rate 24 H 24 H Blood Pressure 115/46 L 115/46 L Pulse Oximetry 92 Oxygen Delivery Fraction of Inspired Oxygen 06/13/24 22:00 06/13/24 20:40 06/14/24 02:24 Temperature Pulse Rate 61 63 63 Respiratory Rate 24 H 24 H 24 H Blood Pressure Pulse Oximetry Oxygen Delivery Fraction of Inspired Oxygen 06/14/24 02:24 06/14/24 00:00 06/14/24 00:00 Temperature Pulse Rate 63 63 63 Respiratory Rate 24 H Blood Pressure Pulse Oximetry 94 94 Oxygen Delivery Mechanical Ventilation Mechanical Ventilation Fraction of Inspired Oxygen 35 30 06/14/24 00:00 06/14/24 02:34 06/14/24 05:07 Temperature Pulse Rate 65 61 Respiratory Rate 24 H Blood Pressure Pulse Oximetry 92 Oxygen Delivery Mechanical Ventilation Fraction of Inspired Oxygen 30 35 06/14/24 00:00 06/14/24 04:00 06/14/24 06:00 Temperature 37.2 C 36.6 C 36.6 C Pulse Rate 60 62 59 L Respiratory Rate 24 H 24 H 24 H Blood Pressure 98/43 L 102/45 L 98/45 L Pulse Oximetry 92 92 92 Oxygen Delivery Fraction of Inspired Oxygen 06/14/24 00:00 06/14/24 00:00 06/14/24 00:00 Temperature Pulse Rate 61 60 60 Respiratory Rate 24 H 24 H Blood Pressure 102/45 L Pulse Oximetry Oxygen Delivery Fraction of Inspired Oxygen 06/14/24 02:00 06/14/24 02:00 06/14/24 02:00 Temperature Pulse Rate 62 62 62 Respiratory Rate 24 H 24 H Blood Pressure Pulse Oximetry Oxygen Delivery Fraction of Inspired Oxygen 06/14/24 04:00 06/14/24 04:00 06/14/24 04:00 Temperature Pulse Rate 60 62 62 Respiratory Rate 24 H 24 H Blood Pressure Pulse Oximetry Oxygen Delivery Fraction of Inspired Oxygen 06/14/24 06:00 06/14/24 06:00 06/14/24 06:00 Temperature Pulse Rate 60 60 60 Respiratory Rate 24 H 24 H Blood Pressure Pulse Oximetry Oxygen Delivery Fraction of Inspired Oxygen 06/14/24 04:00 06/14/24 04:00 06/14/24 02:00 Temperature Pulse Rate 60 60 Respiratory Rate 24 H Blood Pressure Pulse Oximetry 92 Oxygen Delivery Mechanical Ventilation Fraction of Inspired Oxygen 35 35 06/14/24 04:00 06/14/24 06:00 06/14/24 02:01 Temperature Pulse Rate 64 60 63 Respiratory Rate 24 H Blood Pressure 102/47 L Pulse Oximetry 94 Oxygen Delivery Fraction of Inspired Oxygen 06/14/24 07:05 06/14/24 07:05 06/14/24 07:15 Temperature Pulse Rate 60 60 64 Respiratory Rate 24 H 24 H Blood Pressure Pulse Oximetry 93 Oxygen Delivery Mechanical Ventilation Fraction of Inspired Oxygen 35 06/14/24 08:03 06/14/24 08:00 06/14/24 08:00 Temperature 37.3 C Pulse Rate 65 65 Respiratory Rate 24 H Blood Pressure 104/48 L Pulse Oximetry 93 Oxygen Delivery Fraction of Inspired Oxygen 40 06/14/24 08:55 06/14/24 08:55 06/14/24 09:16 Temperature 36.7 C Pulse Rate 65 66 Respiratory Rate 20 Blood Pressure 100/49 L 100/47 L Pulse Oximetry Oxygen Delivery Fraction of Inspired Oxygen 40 06/14/24 09:30 06/14/24 09:45 06/14/24 10:00 Temperature Pulse Rate 65 65 64 Respiratory Rate Blood Pressure 100/46 L 92/45 L 108/55 L Pulse Oximetry Oxygen Delivery Fraction of Inspired Oxygen 06/14/24 10:07 06/14/24 10:15 06/14/24 08:00 Temperature Pulse Rate 64 65 65 Respiratory Rate Blood Pressure 109/51 L 104/48 L Pulse Oximetry 96 Oxygen Delivery Mechanical Ventilation Fraction of Inspired Oxygen 40 06/14/24 09:55 06/14/24 10:15 06/14/24 08:00 Temperature Pulse Rate 65 65 65 Respiratory Rate 24 H Blood Pressure 92/45 L 109/51 L Pulse Oximetry Oxygen Delivery Fraction of Inspired Oxygen 06/14/24 10:00 06/14/24 08:00 06/14/24 10:00 Temperature Pulse Rate 66 65 66 Respiratory Rate 22 H 24 H 22 H Blood Pressure Pulse Oximetry Oxygen Delivery Fraction of Inspired Oxygen 06/14/24 10:30 Temperature Pulse Rate 64 Respiratory Rate Blood Pressure 98/46 L Pulse Oximetry Oxygen Delivery Fraction of Inspired Oxygen Intake/Output Intake/Output: Intake & Output 06/11/24 06/12/24 06/13/24 06/14/24 23:59 23:59 23:59 23:59 Intake Total 1876.8 1985.4 1693.2 719.1 Output Total 3600 3675 4125 50 Balance -1723.2 -1689.6 -2431.8 669.1 Meds/Results Medications: Active Medications Generic Name Dose Route Start Last Admin Trade Name Freq PRN Reason Stop Dose Admin Acetaminophen 650 mg 06/07/24 21:53 06/07/24 22:30 Acetaminophen Elixir 325 Mg/10.15 Ml Udc PO 650 mg Q6H PRN Administration Mild Pain (1-3) or Fever Albuterol/Ipratropium 3 ml 06/05/24 11:15 06/14/24 07:05 Ipratropium 0.5 Mg/Albuterol Sulfate 2.5 Mg Ampul.Neb 3 Ml INHALATION 3 ml Q6HRT JOHN Administration Amiodarone HCl 200 mg 06/02/24 21:00 06/14/24 08:03 Amiodarone Hcl 200 Mg Tablet PO 200 mg Q12HR JOHN Administration Apixaban 5 mg 06/06/24 09:30 06/14/24 08:03 Apixaban 5 Mg Tablet PO 5 mg Q12HR JOHN Administration Dextrose 12.5 gm 06/05/24 11:46 Dextrose 50% 25 Gm/50 Ml Syringe IV PUSH PRN PRN Hypoglycemia Protocol Glucagon 1 mg 06/05/24 11:46 Glucagon For Inj 1 Mg Vial IM PRN PRN Hypoglycemia Protocol Glucose 15 gm 06/05/24 11:46 Glucose Oral Gel 15 Gm Of Glucse In 37.5 Gm Tube PO PRN PRN Hypoglycemia Protocol Norepinephrine Bitartrate 8 mg in 250 mls @ 13.125 mls/hr 06/05/24 00:35 06/14/24 10:15 Levophed 8 Mg/D5w 250 Ml IV CONT 7 mcg/min .Q19H3M JOHN 13.13 mls/hr Titration Protocol 7 MCG/MIN Fentanyl Citrate 2,500 mcg in 250 mls @ 5 mls/hr 06/05/24 08:35 06/14/24 10:00 Fentanyl 2,500 Mcg/Ns 250 Ml IV CONT 50 mcg/hr .Q50H JOHN 5 mls/hr Titration Protocol 50 MCG/HR Midazolam HCl 100 mg in 100 mls @ 2 mls/hr 06/05/24 08:35 06/14/24 10:00 Versed 100 Mg/Ns 100 Ml IV CONT 2 mg/hr .Q50H JOHN 2 mls/hr Titration Protocol 2 MG/HR Dextrose 1,000 mls @ 100 mls/hr 06/05/24 11:46 Dextrose 5% 1,000 Ml IVPB PRN PRN Hypoglycemia Protocol Albumin Human 50 mls @ 999 mls/hr 06/08/24 09:50 06/12/24 11:35 Albutein IVPB 07/08/24 09:49 999 mls/hr Q10M PRN Administration HYPOTENSION Insulin Aspart 3 - 6 units 06/05/24 12:00 06/14/24 06:55 Insulin Aspart (*Bkc) 100 Units/Ml SUB-Q Not Given Q6HR JOHN Protocol Midodrine 10 mg 06/05/24 09:00 06/14/24 08:03 Midodrine Hcl 10 Mg Tablet PO 10 mg TID JOHN Administration Miscellaneous Information 1 each 06/14/24 00:01 Fentanyl And Midazolam Need To Be Renewed Or They Will Automatically Discontinue. XX 07/14/24 00:00 CLARIFY JOHN Multi-Ingred Cream/Lotion/Oil/Oint 1 applic 06/05/24 09:00 06/14/24 08:13 Mineral Oil/White Petrolatum Ointment EACH EYE 1 applic Q12HR JOHN Administration Ondansetron HCl 4 mg 06/11/24 07:47 06/11/24 13:40 Ondansetron Inj 4 Mg/2 Ml Vial IV PUSH 4 mg Q6H PRN Administration Nausea And Vomiting Pantoprazole Sodium 40 mg 06/06/24 09:00 06/13/24 19:52 Pantoprazole Sodium Iv 40 Mg Vial IV PUSH 40 mg Q12HR JOHN Administration Fluticasone/Salmeterol 2 puff 06/03/24 08:00 06/12/24 19:54 Fluticasone/Salmeterol 115-21 Mcg Inhaler 1 Puff INHALATION Not Given Q12HRT JOHN Sodium Chloride 10 ml 06/05/24 06:00 06/14/24 06:55 Central Line Flush IV PUSH 10 ml Q8HR JOHN Administration Sodium Chloride 20 ml 06/05/24 03:12 Central Line Flush IV PUSH PRN PRN after blood draws Umeclidinium [place] 1 puff 06/03/24 08:00 06/12/24 13:28 Umeclidinium [place] 62.5 Mcg Ellipta INHALATION Not Given DAILYRT JOHN Radiology Results: ITS Impressions Renal Ultrasound 06/04/24 15:06 IMPRESSION: 1. Normal kidneys. No hydronephrosis. Chest/Abdomen/Pelvis CT 06/04/24 19:12 IMPRESSION: 1. Diffuse lung disease, consistent with pulmonary edema versus pneumonia. 2. Moderate volume of ascites. Venous Doppler Study 06/07/24 17:01 IMPRESSION: 1. No deep venous thrombosis. Abdomen Ultrasound 06/10/24 14:47 IMPRESSION: Fat infiltration. Enlarged left lobe of the liver. Slightly thickened wall of the gallbladder. Trace of ascites. Otherwise, normal Limited ultrasound of the abdomen. Abdomen X-Ray 06/11/24 07:58 Impression: Limited exam. NG tube is in satisfactory position. Chest X-Ray 06/14/24 06:03 IMPRESSION: 1. Stable diffuse lung disease, consistent with pulmonary edema versus pneumonia. 2. Cardiomegaly. Labs Labs: Laboratory Results - last 24 hr 06/13/24 06/13/24 06/14/24 12:02 17:13 01:25 WBC RBC Hgb Hct MCV MCH MCHC RDW Plt Count MPV Immature Gran % (Auto) Neut % (Auto) Lymph % (Auto) [place] % (Auto) Eos % (Auto) Baso % (Auto) Lymph # (Auto) [place] # (Auto) Eos # (Auto) Baso # (Auto) Abs Immat Gran (auto) Absolute Neuts (auto) Absolute Nucleated RBC Nucleated RBC % Puncture Site ABG pH ABG pCO2 ABG pO2 ABG PO2/FiO2 Ratio ABG HCO3 ABG O2 Saturation ABG O2 Content ABG Base Excess A-a Gradient Oxyhemoglobin Total Hemoglobin O2 Delivery Device O2 Liters/Min Minute Volume Vent Rate Vent Mode FiO2 Tidal Volume PEEP Peak Inspir Pressure Pressure Support Sodium Potassium Chloride Carbon Dioxide Anion Gap BUN Creatinine Estim Creat Clear Calc Estimated GFR Glucose POC Capillary Glucose 182 H 151 H 163 H Calcium Phosphorus Magnesium Total Bilirubin AST ALT Alkaline Phosphatase Total Protein Albumin 06/14/24 06/14/24 04:54 05:53 WBC 16.4 H RBC 3.60 L Hgb 9.8 L Hct 31.6 L MCV 87.8 MCH 27.2 MCHC 31.0 L RDW 19.2 H Plt Count 303 MPV 10.2 Immature Gran % (Auto) 1.5 H Neut % (Auto) 79.3 H Lymph % (Auto) 10.5 L [place] % (Auto) 7.4 Eos % (Auto) 1.2 Baso % (Auto) 0.1 L Lymph # (Auto) 1.72 [place] # (Auto) 1.2 H Eos # (Auto) 0.2 Baso # (Auto) 0.0 Abs Immat Gran (auto) 0.24 H Absolute Neuts (auto) 13.0 H Absolute Nucleated RBC 0.030 H Nucleated RBC % 0.2 Puncture Site Left radial ABG pH 7.440 ABG pCO2 38.9 ABG pO2 64.2 L ABG PO2/FiO2 Ratio 1.83 ABG HCO3 25.8 ABG O2 Saturation 93.3 L ABG O2 Content 13.8 L ABG Base Excess 1.7 A-a Gradient 140.1 Oxyhemoglobin 91.6 Total Hemoglobin 10.7 L O2 Delivery Device Ventilator O2 Liters/Min Not Reportable Minute Volume Not Reportable Vent Rate 24 Vent Mode Cmv FiO2 35 Tidal Volume 400 PEEP 10 Peak Inspir Pressure Not Reportable Pressure Support Not Reportable Sodium 133 L Potassium 4.3 Chloride 96 L Carbon Dioxide 28 Anion Gap 9 BUN 69 H D Creatinine 3.70 H Estim Creat Clear Calc 26 Estimated GFR 13 L Glucose 157 H POC Capillary Glucose Calcium 10.1 Phosphorus 3.4 Magnesium 2.6 H Total Bilirubin 1.6 H AST 123 H ALT 73 H Alkaline Phosphatase 236 H Total Protein 7.0 Albumin 3.2 L Quality VTE Prophylaxis VTE prophylaxis: pharmacologic ordered
--- NOTE | 2024-06-14 10:53 | PCFNICU ---
ICU Rounding Note: Pt current nutrition is Nepro at 40 ml/hr. Last recorded weight is 163 kg, down from 180.3 kg. Patient has had 20 plus Liters removed from Dialysis. Bowel Motility: Last reported BM 06/11 Labs Reviewed:Glu 157, Cr 3.7, BUN 69, GFR 13, Mg 2.6 Meds Noted:Versed, Fentanyl, Cefepime, Protonix, Levophed Skin: WNL Additional Notes: Patient remains on mechanical vent, tube feedings are being tolerated of Nepro at 40 ml/hr. Patient receiving dialysis again today. Agree with diet orders. Following daily in ICU rounds. Will monitor weight, labs, skin, meds, diet orders every Tuesday and Tuesday.
--- NOTE | 2024-06-14 12:15 | P.PNNP_ITS ---
Progress Note: A&P Assessment and Plan (1) JOVI (acute kidney injury): Code(s): N17.9 - Acute kidney failure, unspecified Status: Acute Assessment and Plan: * normal creatinine ~ 1 month ago * admitted with a creatinine of 2.1mg/dl with ongoing worsening noted * due to multifactorial ATN: * hemodynamic instability/shock * sepsis * infection (UTI +/- pneumonia) -- although culture negative to date * hypoxia * SLE flare (?) * other? * evaluation to date noted: * renal ultrasound negative for obstruction * urine eosinophils negative * urine electrolytes pre-renal (in spite of evidence of volume overload) * CPK low * moderate proteinuria (~ 600mg) * UA with blood and protein (and negative urine culture) * complements normal (arguing against lupus flare) * has been dialysis dependent since 06/05 * daily dialysis alternating with DUF (except Sundays) to facilitate euvolemia * DUF today * follow repeat labs and UOP to assess for potential renal recovery (2) Acute respiratory failure: Code(s): J96.00 - Acute respiratory failure, unspecified whether with hypoxia or hypercapnia Status: Acute Assessment and Plan: * intubated on 06/05 for impending respiratory failure * failed BiPAP therapy * ABG with noted hypercapnea and hypoxia * secondary to pulmonary edema, diffuse bilateral infiltrates and ARDS * on bronchodilators * weaned off steroids * continue daily dialyis/dry ultrafiltration for fluid removal (3) Septic shock: Code(s): A41.9 - Sepsis, unspecified organism; R65.21 - Severe sepsis with septic shock Status: Acute Assessment and Plan: * initially thought to be secondary to UTI and pneumonia * remains on low dose levophed therapy to maintain MAP * Echo results noted * continue midodrine * culture data noted: * blood/urine cultures from 06/02 negative * blood culture 06/06 with E. coli and Staph epidermidis * urine culture on 06/06 negative. * blood culture on 06/08 negative * off all antibiotics at this time (since 06/12) * wean levophed as tolerated * follow trend of hemodynamics (4) Pulmonary edema: Code(s): J81.1 - Chronic pulmonary edema Status: Acute Assessment and Plan: * contributing to #2 * secondary to JOVI/ARF but ARDS an issues as well * failed diuretic therapy * HD alternating with DUF for daily fluid removal (5) Afib: Code(s): I48.91 - Unspecified atrial fibrillation Status: Acute Assessment and Plan: * rate control stratgey * on amiodarone and Eliquis (6) Anemia: Code(s): D64.9 - Anemia, unspecified Status: Acute Assessment and Plan: * related to JOVI and acute/critical illness * KIRILL with HD as needed * follow trend of H/H (7) Liver cirrhosis secondary to HOFFMANN: Code(s): K75.81 - Nonalcoholic steatohepatitis (HOFFMANN); K74.60 - Unspecified cirrhosis of liver Status: Acute Assessment and Plan: * known history * normal liver by recent imaging * noted elevations in AST/ALT that have been up and down * fluctuating LFTS thought to be more related to congestion/volume overload * continue to follow (8) Type 2 diabetes mellitus: Code(s): E11.9 - Type 2 diabetes mellitus without complications Status: Acute Assessment and Plan: * follow accu-cheks * glycemic control per machine try out setter/hospitalist Will continue to follow. Subjective Date/time seen: 06/14/24 12:15 Interval history: Follow-up for acute kidney injury/acute renal failure with dialysis dependence. Tolerating dry ultrafiltration at the time of my visit (seen on DUF at 12:05PM); respiratory status seems stable if not doing better; remains on low dose levophed gtt at this time; no other issues/events overnight or early this morning. Exam Narrative: General: large female intubated/sedated on mechanical ventilator Heart: normal S1 and S2; no rub Lungs: coarse breath sounds; decreased at bases Abdomen: obese but soft, nontender, nondistended, positive bowel sounds Extremities: no cyanosis or clubbing; 2+ edema Skin: no rash Objective Data Vital Signs Vital Signs: Vital Signs Temp Pulse Resp BP Pulse Ox O2 Del Method FiO2 06/14/24 12:05 61 21 H 06/14/24 12:04 61 21 H 06/14/24 12:00 61 106/49 L 06/14/24 12:00 Mechanical Ventilation 40 06/14/24 11:45 63 103/48 L 06/14/24 11:30 63 97/42 L 06/14/24 11:45 65 103/48 L 06/14/24 11:30 63 97/42 L 06/14/24 11:15 65 97/47 L 06/14/24 11:15 63 97/47 L 06/14/24 11:00 63 98/44 L 06/14/24 10:45 62 102/45 L 06/14/24 10:30 64 98/46 L 06/14/24 10:00 62 20 98/44 L 94 06/14/24 10:00 62 06/14/24 11:00 63 98/44 L 06/14/24 10:45 65 102/45 L 06/14/24 08:00 40 06/14/24 08:00 Mechanical Ventilation 40 06/14/24 08:00 65 06/14/24 10:30 65 98/46 L 06/14/24 10:00 66 22 H 06/14/24 08:00 65 24 H 06/14/24 10:00 66 22 H 06/14/24 08:00 65 24 H 06/14/24 10:15 65 109/51 L 06/14/24 09:55 65 92/45 L 06/14/24 08:00 65 104/48 L 06/14/24 10:15 65 109/51 L 06/14/24 10:07 64 96 Mechanical Ventilation 40 06/14/24 10:00 64 108/55 L 06/14/24 09:45 65 92/45 L 06/14/24 09:30 65 100/46 L 06/14/24 09:16 66 100/47 L 06/14/24 08:55 40 06/14/24 08:55 98.1 F 65 20 100/49 L 06/14/24 08:00 99.2 F 65 24 H 104/48 L 93 06/14/24 08:00 40 06/14/24 08:03 65 06/14/24 07:15 64 24 H 06/14/24 07:05 60 24 H 06/14/24 07:05 60 93 Mechanical Ventilation 35 06/14/24 02:01 63 24 H 102/47 L 94 06/14/24 06:00 60 06/14/24 04:00 64 06/14/24 02:00 60 06/14/24 04:00 35 06/14/24 04:00 60 24 H 92 Mechanical Ventilation 35 06/14/24 06:00 60 24 H 06/14/24 06:00 60 24 H 06/14/24 06:00 60 06/14/24 04:00 62 24 H 06/14/24 04:00 62 24 H 06/14/24 04:00 60 06/14/24 02:00 62 24 H 06/14/24 02:00 62 24 H 06/14/24 02:00 62 06/14/24 00:00 60 24 H 06/14/24 00:00 60 24 H 06/14/24 00:00 61 102/45 L 06/14/24 06:00 97.9 F 59 L 24 H 98/45 L 92 06/14/24 04:00 98 F 62 24 H 102/45 L 92 06/14/24 00:00 98.9 F 60 24 H 98/43 L 92 06/14/24 05:07 61 92 Mechanical Ventilation 35 06/14/24 02:34 65 24 H 06/14/24 00:00 30 06/14/24 00:00 63 24 H 94 Mechanical Ventilation 30 06/14/24 00:00 63 06/14/24 02:24 63 94 Mechanical Ventilation 35 06/14/24 02:24 63 24 H 06/13/24 20:40 63 24 H 06/13/24 22:00 61 24 H 06/13/24 22:00 61 24 H 06/13/24 22:00 61 115/46 L 06/13/24 22:00 61 24 H 115/46 L 92 06/13/24 22:00 61 06/13/24 23:00 64 89 L Mechanical Ventilation 30 06/13/24 21:31 66 24 H 107/50 L 91 06/13/24 21:30 64 24 H 91 06/13/24 21:16 66 24 H 109/47 L 90 06/13/24 21:15 66 24 H 90 06/13/24 21:01 60 24 H 105/48 L 89 L 06/13/24 21:00 60 24 H 90 06/13/24 20:46 60 24 H 103/47 L 89 L 06/13/24 20:45 61 24 H 90 06/13/24 20:31 63 24 H 122/58 L 96 06/13/24 20:30 63 24 H 100 06/13/24 20:16 60 24 H 110/51 L 92 06/13/24 20:15 60 24 H 91 06/13/24 20:01 97.9 F 62 24 H 104/51 L 94 06/13/24 20:00 60 24 H 91 06/13/24 19:46 60 24 H 105/49 L 91 06/13/24 19:45 60 24 H 92 06/13/24 19:31 60 24 H 105/49 L 91 06/13/24 19:30 60 24 H 90 06/13/24 19:16 61 24 H 103/45 L 92 06/13/24 19:15 61 24 H 92 06/13/24 19:01 63 24 H 116/53 L 92 06/13/24 19:00 62 24 H 92 06/13/24 18:59 62 24 H 92 06/13/24 20:30 62 92 Mechanical Ventilation 30 06/13/24 20:29 62 24 H 06/13/24 20:00 60 24 H 06/13/24 20:00 60 24 H 06/13/24 20:00 60 06/13/24 20:00 62 06/13/24 20:00 30 06/13/24 20:00 62 24 H 92 Mechanical Ventilation 06/13/24 19:53 61 06/13/24 18:00 67 24 H 116/55 L 91 06/13/24 18:00 67 06/13/24 16:00 60 06/13/24 18:04 62 24 H 06/13/24 18:04 63 24 H 06/13/24 18:03 63 111/52 L 06/13/24 17:16 66 102/48 L 06/13/24 17:16 66 102/48 L 06/13/24 16:00 98.9 F 62 24 H 111/49 L 93 06/13/24 17:00 66 117/53 L 06/13/24 16:59 67 93 Mechanical Ventilation 30 06/13/24 16:00 30 06/13/24 16:00 Mechanical Ventilation 30 06/13/24 16:04 61 24 H 06/13/24 16:04 61 24 H 06/13/24 16:02 61 111/49 L 06/13/24 15:46 63 100/45 L 06/13/24 15:30 63 119/56 L 06/13/24 15:08 66 112/50 L 06/13/24 14:00 65 24 H 109/49 L 93 06/13/24 14:00 65 06/13/24 14:04 65 24 H 06/13/24 14:04 64 24 H 06/13/24 14:03 65 109/49 L 06/13/24 13:47 93 Mechanical Ventilation 30 06/13/24 13:44 65 24 H 06/13/24 13:36 65 24 H 06/13/24 13:36 65 96 Mechanical Ventilation 40 06/13/24 13:15 65 112/53 L Intake/Output Intake/Output: Intake & Output 06/11/24 06/12/24 06/13/24 06/14/24 23:59 23:59 23:59 23:59 Intake Total 1876.8 1985.4 1693.2 767.5 Output Total 3600 3675 4125 3050 Balance -1723.2 -1689.6 -2431.8 -2282.5 Meds/Results Medications: Active Medications Generic Name Dose Route Start Last Admin Trade Name Freq PRN Reason Stop Dose Admin Acetaminophen 650 mg 06/07/24 21:53 06/07/24 22:30 Acetaminophen Elixir 325 Mg/10.15 Ml Udc PO 650 mg Q6H PRN Administration Mild Pain (1-3) or Fever Albuterol/Ipratropium 3 ml 06/05/24 11:15 06/14/24 07:05 Ipratropium 0.5 Mg/Albuterol Sulfate 2.5 Mg Ampul.Neb 3 Ml INHALATION 3 ml Q6HRT JOHN Administration Amiodarone HCl 200 mg 06/02/24 21:00 06/14/24 08:03 Amiodarone Hcl 200 Mg Tablet PO 200 mg Q12HR JOHN Administration Apixaban 5 mg 06/06/24 09:30 06/14/24 08:03 Apixaban 5 Mg Tablet PO 5 mg Q12HR JOHN Administration Dextrose 12.5 gm 06/05/24 11:46 Dextrose 50% 25 Gm/50 Ml Syringe IV PUSH PRN PRN Hypoglycemia Protocol Glucagon 1 mg 06/05/24 11:46 Glucagon For Inj 1 Mg Vial IM PRN PRN Hypoglycemia Protocol Glucose 15 gm 06/05/24 11:46 Glucose Oral Gel 15 Gm Of Glucse In 37.5 Gm Tube PO PRN PRN Hypoglycemia Protocol Norepinephrine Bitartrate 8 mg in 250 mls @ 20.625 mls/hr 06/05/24 00:35 06/14/24 12:38 Levophed 8 Mg/D5w 250 Ml IV CONT Not Given .Q12H8M JOHN Protocol 11 MCG/MIN Fentanyl Citrate 2,500 mcg in 250 mls @ 5 mls/hr 06/05/24 08:35 06/14/24 12:05 Fentanyl 2,500 Mcg/Ns 250 Ml IV CONT 50 mcg/hr .Q50H JOHN 5 mls/hr Titration Protocol 50 MCG/HR Midazolam HCl 100 mg in 100 mls @ 2 mls/hr 06/05/24 08:35 06/14/24 12:39 Versed 100 Mg/Ns 100 Ml IV CONT Not Given .Q50H JOHN Protocol 2 MG/HR Dextrose 1,000 mls @ 100 mls/hr 06/05/24 11:46 Dextrose 5% 1,000 Ml IVPB PRN PRN Hypoglycemia Protocol Albumin Human 50 mls @ 999 mls/hr 06/08/24 09:50 06/12/24 11:35 Albutein IVPB 07/08/24 09:49 999 mls/hr Q10M PRN Administration HYPOTENSION Insulin Aspart 3 - 6 units 06/05/24 12:00 06/14/24 12:29 Insulin Aspart (*Bkc) 100 Units/Ml SUB-Q Not Given Q6HR JOHN Protocol Midodrine 10 mg 06/05/24 09:00 06/14/24 12:58 Midodrine Hcl 10 Mg Tablet PO 10 mg TID JOHN Administration Multi-Ingred Cream/Lotion/Oil/Oint 1 applic 06/05/24 09:00 06/14/24 08:13 Mineral Oil/White Petrolatum Ointment EACH EYE 1 applic Q12HR JOHN Administration Ondansetron HCl 4 mg 06/11/24 07:47 06/11/24 13:40 Ondansetron Inj 4 Mg/2 Ml Vial IV PUSH 4 mg Q6H PRN Administration Nausea And Vomiting Pantoprazole Sodium 40 mg 06/06/24 09:00 06/14/24 12:58 Pantoprazole Sodium Iv 40 Mg Vial IV PUSH 40 mg Q12HR JOHN Administration Fluticasone/Salmeterol 2 puff 06/03/24 08:00 06/14/24 12:38 Fluticasone/Salmeterol 115-21 Mcg Inhaler 1 Puff INHALATION Not Given Q12HRT JOHN Sodium Chloride 10 ml 06/05/24 06:00 06/14/24 06:55 Central Line Flush IV PUSH 10 ml Q8HR JOHN Administration Sodium Chloride 20 ml 06/05/24 03:12 Central Line Flush IV PUSH PRN PRN after blood draws Umeclidinium [place] 1 puff 06/03/24 08:00 06/14/24 12:38 Umeclidinium [place] 62.5 Mcg Ellipta INHALATION Not Given DAILYRT [facility] Radiology Results: ITS Impressions Renal Ultrasound 06/04/24 15:06 IMPRESSION: 1. Normal kidneys. No hydronephrosis. Chest/Abdomen/Pelvis CT 06/04/24 19:12 IMPRESSION: 1. Diffuse lung disease, consistent with pulmonary edema versus pneumonia. 2. Moderate volume of ascites. Venous Doppler Study 06/07/24 17:01 IMPRESSION: 1. No deep venous thrombosis. Abdomen Ultrasound 06/10/24 14:47 IMPRESSION: Fat infiltration. Enlarged left lobe of the liver. Slightly thickened wall of the gallbladder. Trace of ascites. Otherwise, normal Limited ultrasound of the abdomen. Abdomen X-Ray 06/11/24 07:58 Impression: Limited exam. NG tube is in satisfactory position. Chest X-Ray 06/14/24 06:03 IMPRESSION: 1. Stable diffuse lung disease, consistent with pulmonary edema versus pneumonia. 2. Cardiomegaly. Labs Labs: Laboratory Tests 06/14/24 05:53 06/14/24 05:53 Calcium 10.1 Phosphorus 3.4 Magnesium 2.6 H Total Bilirubin 1.6 H AST 123 H ALT 73 H Alkaline Phosphatase 236 H Total Protein 7.0 Albumin 3.2 L Microbiology 06/08/24 08:00 Blood Blood Culture - Final 06/08/24 07:43 Blood Blood Culture - Final
[2024-06-14 12:22] LABS: Glucose Point of Care 193 mg/dl (65-105)
[2024-06-14] MEDS: PANTOPRAZOLE SODIUM IV 40 MG VIAL IV PUSH ×2 (12:58→20:30)
[2024-06-14] MEDS: NOREPINEPHRINE 8 MG/D5W 250 ML 8 MG/250 ML BAG 24.38 MG IV CONT (13:45)
[2024-06-14] MEDS: FENTANYL 2,500MCG/NS250ML(*CRX 2,500 MCG/250 ML BAG IV CONT (14:10)
--- NOTE | 2024-06-14 15:53 | P.PNIM_ITS ---
Progress Note: A&P Assessment and Plan (1) Acute respiratory failure: Code(s): J96.00 - Acute respiratory failure, unspecified whether with hypoxia or hypercapnia Status: Acute Assessment and Plan: Patient originally admitted for difficulty voiding. Patient developed HoTN and hypoxia on 06/04 that worsened overnight. ABG showing 7.33/58/66.5 on HFNC. Patient brought to the ICU in the emery grinder hours of 06/05. She had increasing O2 requirements. CXR showed bilateral diffuse pulmonary infiltrates/pulmonary edema. Respiratory failure related to pulmonary edema, pneumonia and/or ARDS Patient was placed on BiPAP but ultimately intubated on 06/05/24. Despite daily HD, CXR showing edema vs PNA. Decreasing Peep requirements. Continue bronchodilators Fentanyl and Versed for sedation Continue dialysis for fluid removal per nephrology (2) Septic shock: Code(s): A41.9 - Sepsis, unspecified organism; R65.21 - Severe sepsis with septic shock Status: Acute Assessment and Plan: Patient was HoTN in the IMU and transferred to the ICU. Septic shock possibly related to UTI, pneumonia. Rt IJ central line was placed and Levophed started. She received fluids, albumin and midodrine BCx and UCx 06/02 negative. BCx 06/06 grew EColi and Staph Epidermidis. EColi was pansensitive. UCx 06/06 negative. Sputum Cx 06/07 growing yeast. BCx 06/08 nNGTD Patient was on vancomycin and cefepime which were continued. Fluconazole was discontinued given her renal dysfunction Stress dose steroids were started but are off now Completed a course and now off all abx since 06/12. Off [employer] since 06/06 but remains on Levophed. Wean as tolerated. Continue midodrine (3) JOVI (acute kidney injury): Code(s): N17.9 - Acute kidney failure, unspecified Status: Acute Assessment and Plan: Baseline Cr normal in April. Cr 2.1 on admission and has worsened JOVI related to shock, sepsis, UTI/pneumonia, hypoxia, SLE flare and/or CHF. TCK levels are normal. Ueos negative. Urine lytes c/w prerenal picture but patient seems to be volume overloaded Treated with IV fluids and albumin but renal function worsening and HD recommended. [facility] recommended transfer for CRRT but outside hospital recommended conventional dialysis. [facility] Specialist consulted and dialysis catheter was placed 06/05 in the right IJ and exchanged for the central line HD daily with removal of anywhere from 2.9-4L per day since 06/05 (except 06/10) Cumulative fluid balance of -14.3L. Still appears to be fluid overloaded but UOP is dropping. Continue HD as she tolerates. (4) Pulmonary edema: Code(s): J81.1 - Chronic pulmonary edema Status: Acute Assessment and Plan: CT chest (06/04) showing diffuse lung disease c/w PNA vs pulmonary edema. COVID, RSV and influenza PCR negative Echo showing normal LV size and fxn (EF 65-70%), Grade I diastolic dysfxn, RV enlargement with normal fxn, moderate bi-atrial enlargement and mild-mod TR. Pulmonary edema likely related to acute kidney injury, ARDS. She did not respond to Bumex Control fluid status with HD (5) Type 2 diabetes mellitus: Code(s): E11.9 - Type 2 diabetes mellitus without complications Status: Acute Assessment and Plan: A1c 5.7. The patient's blood glucose was reviewed on 06/14 Glucose remains reasonably well controlled. Continue AccuCheks covering with sliding scale. Hypoglycemia protocol available as needed. Continue to monitor (6) Afib: Code(s): I48.91 - Unspecified atrial fibrillation Status: Acute Assessment and Plan: HR well controlled. Continue amiodarone Eliquis continued Flecainide stopped (7) SLE (systemic lupus erythematosus): Code(s): M32.9 - Systemic lupus erythematosus, unspecified Status: Acute Assessment and Plan: Consider SLE flare causinig her JOVI. Was started on stress dose steroids Nephrology consulted Weaned off steroids (8) Liver cirrhosis secondary to HOFFMANN: Code(s): K75.81 - Nonalcoholic steatohepatitis (HOFFMANN); K74.60 - Unspecified cirrhosis of liver Status: Acute Assessment and Plan: Patient has a hx of liver cirrhosis. CT abd without contrast shows normal liver. Mild elevation in AST/ALT that have been up and down RUQ ultrasound 06/10 showing fat infiltration, enlarged left lobe of the liver and slightly thickened wall of the gallbladder. Trace ascites. Hepatitis panel is negative Kennedy elevated LFTs related to congestion. Continue to monitor (9) Morbid obesity with BMI of 50.0-59.9, adult: Code(s): E66.01 - Morbid (severe) obesity due to excess calories; Z68.43 - Body mass ind ex [BMI] 50.0-59.9, adult Status: Acute Assessment and Plan: Once extubated she will need lifestyle changes Plan DVT prophylaxis: Chance Code Status: Full code Subjective Date/time seen: 06/14/24 15:53 Interval history: 54yo female with AFib on anticoagulation, PM and DM here for difficulty voiding. Patient had worsening respiratory status and hypotension despite ongoing therapy and was transferred to the ICU in the emery grinder hours of 06/05. Central line was placed and started on pressor therapy. She was intubated later that morning. Patient remains intubated and is unable to provide hx. She awakens easily. No issues overnight per RN. PEEP down to 8. Tolerated HD yesterday with removal of 4L. Seen when having HD again this morning. Exam Narrative: AF 98.6 117/51 61 23 92% MV Gen - intubated and on sedation currently undergoing HD HEENT - ETT and OGT secured. Neck - Rt HD catheter accessed with pigtail in place. Chest - coarse BS anteriorly. CV - RRR S1/S2. Tele showing no significant dysrhythmias Abd - soft, morbidly obese, persistent flank and abd wall edema. - Lai secured with scant amount of dark yellow urine in the bag Ext - diffuse LE pitting pedal edema with some wrinkling of the skin. heel pads in place. 2+ DP pulses bilaterally Neuro - sedated but awakens easily Skin - Warm and dry. mild bilateral jenkins punk erythema not warm to touch Objective Data Vital Signs Vital Signs: Vital Signs - 24 hr 06/13/24 16:02 06/13/24 16:04 06/13/24 16:04 Temperature Pulse Rate 61 61 61 Respiratory Rate 24 H 24 H Blood Pressure 111/49 L Pulse Oximetry Oxygen Delivery Fraction of Inspired Oxygen 06/13/24 16:00 06/13/24 16:00 06/13/24 16:59 Temperature Pulse Rate 67 Respiratory Rate Blood Pressure Pulse Oximetry 93 Oxygen Delivery Mechanical Ventilation Mechanical Ventilation Fraction of Inspired Oxygen 30 30 30 06/13/24 17:00 06/13/24 16:00 06/13/24 17:16 Temperature 98.9 F Pulse Rate 66 62 66 Respiratory Rate 24 H Blood Pressure 117/53 L 111/49 L 102/48 L Pulse Oximetry 93 Oxygen Delivery Fraction of Inspired Oxygen 06/13/24 17:16 06/13/24 18:03 06/13/24 18:04 Temperature Pulse Rate 66 63 63 Respiratory Rate 24 H Blood Pressure 102/48 L 111/52 L Pulse Oximetry Oxygen Delivery Fraction of Inspired Oxygen 06/13/24 18:04 06/13/24 16:00 06/13/24 18:00 Temperature Pulse Rate 62 60 67 Respiratory Rate 24 H Blood Pressure Pulse Oximetry Oxygen Delivery Fraction of Inspired Oxygen 06/13/24 18:00 06/13/24 19:53 06/13/24 20:00 Temperature Pulse Rate 67 61 62 Respiratory Rate 24 H 24 H Blood Pressure 116/55 L Pulse Oximetry 91 92 Oxygen Delivery Mechanical Ventilation Fraction of Inspired Oxygen 30 06/13/24 20:00 06/13/24 20:00 06/13/24 20:00 Temperature Pulse Rate 62 60 Respiratory Rate Blood Pressure Pulse Oximetry Oxygen Delivery Fraction of Inspired Oxygen 30 06/13/24 20:00 06/13/24 20:00 06/13/24 20:29 Temperature Pulse Rate 60 60 62 Respiratory Rate 24 H 24 H 24 H Blood Pressure Pulse Oximetry Oxygen Delivery Fraction of Inspired Oxygen 06/13/24 20:30 06/13/24 18:59 06/13/24 19:00 Temperature Pulse Rate 62 62 62 Respiratory Rate 24 H 24 H Blood Pressure Pulse Oximetry 92 92 92 Oxygen Delivery Mechanical Ventilation Fraction of Inspired Oxygen 30 06/13/24 19:01 06/13/24 19:15 06/13/24 19:16 Temperature Pulse Rate 63 61 61 Respiratory Rate 24 H 24 H 24 H Blood Pressure 116/53 L 103/45 L Pulse Oximetry 92 92 92 Oxygen Delivery Fraction of Inspired Oxygen 06/13/24 19:30 06/13/24 19:31 06/13/24 19:45 Temperature Pulse Rate 60 60 60 Respiratory Rate 24 H 24 H 24 H Blood Pressure 105/49 L Pulse Oximetry 90 91 92 Oxygen Delivery Fraction of Inspired Oxygen 06/13/24 19:46 06/13/24 20:00 06/13/24 20:01 Temperature 97.9 F Pulse Rate 60 60 62 Respiratory Rate 24 H 24 H 24 H Blood Pressure 105/49 L 104/51 L Pulse Oximetry 91 91 94 Oxygen Delivery Fraction of Inspired Oxygen 06/13/24 20:15 06/13/24 20:16 06/13/24 20:30 Temperature Pulse Rate 60 60 63 Respiratory Rate 24 H 24 H 24 H Blood Pressure 110/51 L Pulse Oximetry 91 92 100 Oxygen Delivery Fraction of Inspired Oxygen 06/13/24 20:31 06/13/24 20:45 06/13/24 20:46 Temperature Pulse Rate 63 61 60 Respiratory Rate 24 H 24 H 24 H Blood Pressure 122/58 L 103/47 L Pulse Oximetry 96 90 89 L Oxygen Delivery Fraction of Inspired Oxygen 06/13/24 21:00 06/13/24 21:01 06/13/24 21:15 Temperature Pulse Rate 60 60 66 Respiratory Rate 24 H 24 H 24 H Blood Pressure 105/48 L Pulse Oximetry 90 89 L 90 Oxygen Delivery Fraction of Inspired Oxygen 06/13/24 21:16 06/13/24 21:30 06/13/24 21:31 Temperature Pulse Rate 66 64 66 Respiratory Rate 24 H 24 H 24 H Blood Pressure 109/47 L 107/50 L Pulse Oximetry 90 91 91 Oxygen Delivery Fraction of Inspired Oxygen 06/13/24 23:00 06/13/24 22:00 06/13/24 22:00 Temperature Pulse Rate 64 61 61 Respiratory Rate 24 H Blood Pressure 115/46 L Pulse Oximetry 89 L 92 Oxygen Delivery Mechanical Ventilation Fraction of Inspired Oxygen 30 06/13/24 22:00 06/13/24 22:00 06/13/24 22:00 Temperature Pulse Rate 61 61 61 Respiratory Rate 24 H 24 H Blood Pressure 115/46 L Pulse Oximetry Oxygen Delivery Fraction of Inspired Oxygen 06/13/24 20:40 06/14/24 02:24 06/14/24 02:24 Temperature Pulse Rate 63 63 63 Respiratory Rate 24 H 24 H Blood Pressure Pulse Oximetry 94 Oxygen Delivery Mechanical Ventilation Fraction of Inspired Oxygen 35 06/14/24 00:00 06/14/24 00:00 06/14/24 00:00 Temperature Pulse Rate 63 63 Respiratory Rate 24 H Blood Pressure Pulse Oximetry 94 Oxygen Delivery Mechanical Ventilation Fraction of Inspired Oxygen 30 30 06/14/24 02:34 06/14/24 05:07 06/14/24 00:00 Temperature 98.9 F Pulse Rate 65 61 60 Respiratory Rate 24 H 24 H Blood Pressure 98/43 L Pulse Oximetry 92 92 Oxygen Delivery Mechanical Ventilation Fraction of Inspired Oxygen 35 06/14/24 04:00 06/14/24 06:00 06/14/24 00:00 Temperature 98 F 97.9 F Pulse Rate 62 59 L 61 Respiratory Rate 24 H 24 H Blood Pressure 102/45 L 98/45 L 102/45 L Pulse Oximetry 92 92 Oxygen Delivery Fraction of Inspired Oxygen 06/14/24 00:00 06/14/24 00:00 06/14/24 02:00 Temperature Pulse Rate 60 60 62 Respiratory Rate 24 H 24 H Blood Pressure Pulse Oximetry Oxygen Delivery Fraction of Inspired Oxygen 06/14/24 02:00 06/14/24 02:00 06/14/24 04:00 Temperature Pulse Rate 62 62 60 Respiratory Rate 24 H 24 H Blood Pressure Pulse Oximetry Oxygen Delivery Fraction of Inspired Oxygen 06/14/24 04:00 06/14/24 04:00 06/14/24 06:00 Temperature Pulse Rate 62 62 60 Respiratory Rate 24 H 24 H Blood Pressure Pulse Oximetry Oxygen Delivery Fraction of Inspired Oxygen 06/14/24 06:00 06/14/24 06:00 06/14/24 04:00 Temperature Pulse Rate 60 60 60 Respiratory Rate 24 H 24 H 24 H Blood Pressure Pulse Oximetry 92 Oxygen Delivery Mechanical Ventilation Fraction of Inspired Oxygen 35 06/14/24 04:00 06/14/24 02:00 06/14/24 04:00 Temperature Pulse Rate 60 64 Respiratory Rate Blood Pressure Pulse Oximetry Oxygen Delivery Fraction of Inspired Oxygen 35 06/14/24 06:00 06/14/24 02:01 06/14/24 07:05 Temperature Pulse Rate 60 63 60 Respiratory Rate 24 H Blood Pressure 102/47 L Pulse Oximetry 94 93 Oxygen Delivery Mechanical Ventilation Fraction of Inspired Oxygen 35 06/14/24 07:05 06/14/24 07:15 06/14/24 08:03 Temperature Pulse Rate 60 64 65 Respiratory Rate 24 H 24 H Blood Pressure Pulse Oximetry Oxygen Delivery Fraction of Inspired Oxygen 06/14/24 08:00 06/14/24 08:00 06/14/24 08:55 Temperature 99.2 F 98.1 F Pulse Rate 65 65 Respiratory Rate 24 H 20 Blood Pressure 104/48 L 100/49 L Pulse Oximetry 93 Oxygen Delivery Fraction of Inspired Oxygen 40 06/14/24 08:55 06/14/24 09:16 06/14/24 09:30 Temperature Pulse Rate 66 65 Respiratory Rate Blood Pressure 100/47 L 100/46 L Pulse Oximetry Oxygen Delivery Fraction of Inspired Oxygen 40 06/14/24 09:45 06/14/24 10:00 06/14/24 10:07 Temperature Pulse Rate 65 64 64 Respiratory Rate Blood Pressure 92/45 L 108/55 L Pulse Oximetry 96 Oxygen Delivery Mechanical Ventilation Fraction of Inspired Oxygen 40 06/14/24 10:15 06/14/24 08:00 06/14/24 09:55 Temperature Pulse Rate 65 65 65 Respiratory Rate Blood Pressure 109/51 L 104/48 L 92/45 L Pulse Oximetry Oxygen Delivery Fraction of Inspired Oxygen 06/14/24 10:15 06/14/24 08:00 06/14/24 10:00 Temperature Pulse Rate 65 65 66 Respiratory Rate 24 H 22 H Blood Pressure 109/51 L Pulse Oximetry Oxygen Delivery Fraction of Inspired Oxygen 06/14/24 08:00 06/14/24 10:00 06/14/24 10:30 Temperature Pulse Rate 65 66 65 Respiratory Rate 24 H 22 H Blood Pressure 98/46 L Pulse Oximetry Oxygen Delivery Fraction of Inspired Oxygen 06/14/24 08:00 06/14/24 08:00 06/14/24 08:00 Temperature Pulse Rate 65 Respiratory Rate Blood Pressure Pulse Oximetry Oxygen Delivery Mechanical Ventilation Fraction of Inspired Oxygen 40 40 06/14/24 10:45 06/14/24 11:00 06/14/24 10:00 Temperature Pulse Rate 65 63 62 Respiratory Rate Blood Pressure 102/45 L 98/44 L Pulse Oximetry Oxygen Delivery Fraction of Inspired Oxygen 06/14/24 10:00 06/14/24 10:30 06/14/24 10:45 Temperature Pulse Rate 62 64 62 Respiratory Rate 20 Blood Pressure 98/44 L 98/46 L 102/45 L Pulse Oximetry 94 Oxygen Delivery Fraction of Inspired Oxygen 06/14/24 11:00 06/14/24 11:15 06/14/24 11:15 Temperature Pulse Rate 63 63 65 Respiratory Rate Blood Pressure 98/44 L 97/47 L 97/47 L Pulse Oximetry Oxygen Delivery Fraction of Inspired Oxygen 06/14/24 11:30 06/14/24 11:45 06/14/24 11:30 Temperature Pulse Rate 63 65 63 Respiratory Rate Blood Pressure 97/42 L 103/48 L 97/42 L Pulse Oximetry Oxygen Delivery Fraction of Inspired Oxygen 06/14/24 11:45 06/14/24 12:00 06/14/24 12:00 Temperature Pulse Rate 63 Respiratory Rate Blood Pressure 103/48 L Pulse Oximetry Oxygen Delivery Mechanical Ventilation Fraction of Inspired Oxygen 40 40 06/14/24 12:00 06/14/24 12:04 06/14/24 12:05 Temperature Pulse Rate 61 61 61 Respiratory Rate 21 H 21 H Blood Pressure 106/49 L Pulse Oximetry Oxygen Delivery Fraction of Inspired Oxygen 06/14/24 12:15 06/14/24 12:00 06/14/24 12:00 Temperature Pulse Rate 62 62 61 Respiratory Rate Blood Pressure 106/49 L 106/49 L Pulse Oximetry Oxygen Delivery Fraction of Inspired Oxygen 06/14/24 12:15 06/14/24 12:18 06/14/24 12:18 Temperature 97.7 F Pulse Rate 62 62 64 Respiratory Rate 20 Blood Pressure 106/49 L 104/47 L 109/51 L Pulse Oximetry Oxygen Delivery Fraction of Inspired Oxygen 06/14/24 12:00 06/14/24 13:08 06/14/24 13:05 Temperature 98.3 F Pulse Rate 64 68 67 Respiratory Rate 21 H Blood Pressure 106/49 L 107/47 L Pulse Oximetry 95 100 Oxygen Delivery Mechanical Ventilation Fraction of Inspired Oxygen 40 06/14/24 13:05 06/14/24 13:15 06/14/24 13:45 Temperature Pulse Rate 67 66 60 Respiratory Rate 25 H 23 H Blood Pressure 103/44 L Pulse Oximetry Oxygen Delivery Fraction of Inspired Oxygen 06/14/24 13:45 06/14/24 14:00 06/14/24 14:00 Temperature Pulse Rate 60 61 61 Respiratory Rate 29 H Blood Pressure 103/44 L 110/47 L 110/47 L Pulse Oximetry 92 Oxygen Delivery Fraction of Inspired Oxygen 06/14/24 14:00 06/14/24 14:00 06/14/24 14:10 Temperature Pulse Rate 61 61 65 Respiratory Rate 29 H 23 H Blood Pressure Pulse Oximetry Oxygen Delivery Fraction of Inspired Oxygen 06/14/24 14:10 06/14/24 14:00 06/14/24 14:15 Temperature Pulse Rate 65 61 62 Respiratory Rate 23 H 29 H Blood Pressure 111/47 L Pulse Oximetry Oxygen Delivery Fraction of Inspired Oxygen 06/14/24 14:30 06/14/24 15:32 06/14/24 15:36 Temperature Pulse Rate 61 Respiratory Rate Blood Pressure 117/51 L Pulse Oximetry Oxygen Delivery Mechanical Ventilation Fraction of Inspired Oxygen 40 40 Intake/Output Intake/Output: Intake & Output 06/11/24 06/12/24 06/13/24 06/14/24 23:59 23:59 23:59 23:59 Intake Total 1876.8 1985.4 1693.2 831.0 Output Total 3600 3675 4125 3050 Balance -1723.2 -1689.6 -2431.8 -2219.0 Meds/Results Medications: Active Medications Generic Name Dose Route Start Last Admin Trade Name Freq PRN Reason Stop Dose Admin Acetaminophen 650 mg 06/07/24 21:53 06/07/24 22:30 Acetaminophen Elixir 325 Mg/10.15 Ml Udc PO 650 mg Q6H PRN Administration Mild Pain (1-3) or Fever Albuterol/Ipratropium 3 ml 06/05/24 11:15 06/14/24 13:05 Ipratropium 0.5 Mg/Albuterol Sulfate 2.5 Mg Ampul.Neb 3 Ml INHALATION 3 ml Q6HRT JOHN Administration Amiodarone HCl 200 mg 06/02/24 21:00 06/14/24 08:03 Amiodarone Hcl 200 Mg Tablet PO 200 mg Q12HR JOHN Administration Apixaban 5 mg 06/06/24 09:30 06/14/24 08:03 Apixaban 5 Mg Tablet PO 5 mg Q12HR JOHN Administration Dextrose 12.5 gm 06/05/24 11:46 Dextrose 50% 25 Gm/50 Ml Syringe IV PUSH PRN PRN Hypoglycemia Protocol Glucagon 1 mg 06/05/24 11:46 Glucagon For Inj 1 Mg Vial IM PRN PRN Hypoglycemia Protocol Glucose 15 gm 06/05/24 11:46 Glucose Oral Gel 15 Gm Of Glucse In 37.5 Gm Tube PO PRN PRN Hypoglycemia Protocol Norepinephrine Bitartrate 8 mg in 250 mls @ 24.375 mls/hr 06/05/24 00:35 06/14/24 14:30 Levophed 8 Mg/D5w 250 Ml IV CONT 13 mcg/min .[id number] JOHN 24.38 mls/hr Titration Protocol 13 MCG/MIN Fentanyl Citrate 2,500 mcg in 250 mls @ 5 mls/hr 06/05/24 08:35 06/14/24 14:10 Fentanyl 2,500 Mcg/Ns 250 Ml IV CONT 50 mcg/hr .Q50H JOHN 5 mls/hr Administration Protocol 50 MCG/HR Midazolam HCl 100 mg in 100 mls @ 2 mls/hr 06/05/24 08:35 06/14/24 14:00 Versed 100 Mg/Ns 100 Ml IV CONT 2 mg/hr .Q50H JOHN 2 mls/hr Titration Protocol 2 MG/HR Dextrose 1,000 mls @ 100 mls/hr 06/05/24 11:46 Dextrose 5% 1,000 Ml IVPB PRN PRN Hypoglycemia Protocol Albumin Human 50 mls @ 999 mls/hr 06/08/24 09:50 06/12/24 11:35 Albutein IVPB 07/08/24 09:49 999 mls/hr Q10M PRN Administration HYPOTENSION Insulin Aspart 3 - 6 units 06/05/24 12:00 06/14/24 12:29 Insulin Aspart (*Bkc) 100 Units/Ml SUB-Q Not Given Q6HR JOHN Protocol Midodrine 10 mg 06/05/24 09:00 06/14/24 12:58 Midodrine Hcl 10 Mg Tablet PO 10 mg TID JOHN Administration Multi-Ingred Cream/Lotion/Oil/Oint 1 applic 06/05/24 09:00 06/14/24 08:13 Mineral Oil/White Petrolatum Ointment EACH EYE 1 applic Q12HR JOHN Administration Ondansetron HCl 4 mg 06/11/24 07:47 06/11/24 13:40 Ondansetron Inj 4 Mg/2 Ml Vial IV PUSH 4 mg Q6H PRN Administration Nausea And Vomiting Pantoprazole Sodium 40 mg 06/06/24 09:00 06/14/24 12:58 Pantoprazole Sodium Iv 40 Mg Vial IV PUSH 40 mg Q12HR JOHN Administration Fluticasone/Salmeterol 2 puff 06/03/24 08:00 06/14/24 12:38 Fluticasone/Salmeterol 115-21 Mcg Inhaler 1 Puff INHALATION Not Given Q12HRT JOHN Sodium Chloride 10 ml 06/05/24 06:00 06/14/24 13:57 Central Line Flush IV PUSH 10 ml Q8HR JOHN Administration Sodium Chloride 20 ml 06/05/24 03:12 Central Line Flush IV PUSH PRN PRN after blood draws Umeclidinium [place] 1 puff 06/03/24 08:00 06/14/24 12:38 Umeclidinium [place] 62.5 Mcg Ellipta INHALATION Not Given DAILYRT [facility] Radiology Results: ITS Impressions Renal Ultrasound 06/04/24 15:06 IMPRESSION: 1. Normal kidneys. No hydronephrosis. Chest/Abdomen/Pelvis CT 06/04/24 19:12 IMPRESSION: 1. Diffuse lung disease, consistent with pulmonary edema versus pneumonia. 2. Moderate volume of ascites. Venous Doppler Study 06/07/24 17:01 IMPRESSION: 1. No deep venous thrombosis. Abdomen Ultrasound 06/10/24 14:47 IMPRESSION: Fat infiltration. Enlarged left lobe of the liver. Slightly thickened wall of the gallbladder. Trace of ascites. Otherwise, normal Limited ultrasound of the abdomen. Abdomen X-Ray 06/11/24 07:58 Impression: Limited exam. NG tube is in satisfactory position. Chest X-Ray 06/14/24 06:03 IMPRESSION: 1. Stable diffuse lung disease, consistent with pulmonary edema versus pneumonia. 2. Cardiomegaly. Labs Labs: Laboratory Results - last 24 hr 06/13/24 06/14/24 06/14/24 17:13 01:25 04:54 WBC RBC Hgb Hct MCV MCH MCHC RDW Plt Count MPV Immature Gran % (Auto) Neut % (Auto) Lymph % (Auto) [place] % (Auto) Eos % (Auto) Baso % (Auto) Lymph # (Auto) [place] # (Auto) Eos # (Auto) Baso # (Auto) Abs Immat Gran (auto) Absolute Neuts (auto) Absolute Nucleated RBC Nucleated RBC % Puncture Site Left radial ABG pH 7.440 ABG pCO2 38.9 ABG pO2 64.2 L ABG PO2/FiO2 Ratio 1.83 ABG HCO3 25.8 ABG O2 Saturation 93.3 L ABG O2 Content 13.8 L ABG Base Excess 1.7 A-a Gradient 140.1 Oxyhemoglobin 91.6 Total Hemoglobin 10.7 L O2 Delivery Device Ventilator O2 Liters/Min Not Reportable Minute Volume Not Reportable Vent Rate 24 Vent Mode Cmv FiO2 35 Tidal Volume 400 PEEP 10 Peak Inspir Pressure Not Reportable Pressure Support Not Reportable Sodium Potassium Chloride Carbon Dioxide Anion Gap BUN Creatinine Estim Creat Clear Calc Estimated GFR Glucose POC Capillary Glucose 151 H 163 H Calcium Phosphorus Magnesium Total Bilirubin AST ALT Alkaline Phosphatase Total Protein Albumin 06/14/24 06/14/24 05:53 12:20 WBC 16.4 H RBC 3.60 L Hgb 9.8 L Hct 31.6 L MCV 87.8 MCH 27.2 MCHC 31.0 L RDW 19.2 H Plt Count 303 MPV 10.2 Immature Gran % (Auto) 1.5 H Neut % (Auto) 79.3 H Lymph % (Auto) 10.5 L [place] % (Auto) 7.4 Eos % (Auto) 1.2 Baso % (Auto) 0.1 L Lymph # (Auto) 1.72 [place] # (Auto) 1.2 H Eos # (Auto) 0.2 Baso # (Auto) 0.0 Abs Immat Gran (auto) 0.24 H Absolute Neuts (auto) 13.0 H Absolute Nucleated RBC 0.030 H Nucleated RBC % 0.2 Puncture Site ABG pH ABG pCO2 ABG pO2 ABG PO2/FiO2 Ratio ABG HCO3 ABG O2 Saturation ABG O2 Content ABG Base Excess A-a Gradient Oxyhemoglobin Total Hemoglobin O2 Delivery Device O2 Liters/Min Minute Volume Vent Rate Vent Mode FiO2 Tidal Volume PEEP Peak Inspir Pressure Pressure Support Sodium 133 L Potassium 4.3 Chloride 96 L Carbon Dioxide 28 Anion Gap 9 BUN 69 H D Creatinine 3.70 H Estim Creat Clear Calc 26 Estimated GFR 13 L Glucose 157 H POC Capillary Glucose 193 H Calcium 10.1 Phosphorus 3.4 Magnesium 2.6 H Total Bilirubin 1.6 H AST 123 H ALT 73 H Alkaline Phosphatase 236 H Total Protein 7.0 Albumin 3.2 L
[2024-06-14 17:14] LABS: Glucose Point of Care 161 mg/dl (65-105)
[2024-06-15] VITALS (56 sets, daily range): BP systolic 85–124; BP diastolic 41–63; PULSE 62–82; RESP 20–25; TEMP 36.5–37.5; O2SAT 93–100
[2024-06-15] MEDS: NOREPINEPHRINE 8 MG/D5W 250 ML 8 MG/250 ML BAG 15 MG IV CONT (01:48)
[2024-06-15] MEDS: IPRATROPIUM 0.5 MG/ALBUTEROL SULFATE 2.5 MG AMPUL.NEB 3 ML INHALATION ×3 (02:15→13:51)
[2024-06-15 05:38] LABS: Alveolar/Arterial O2 Gradient 168.8 mmHg; Base Excess ABG 0.9 mEq/l (+/-2.0); Carboxyhemoglobin 0.6 % THb (0-2.0); Fractional Inspired Oxygen 40 %; HCO3 ABG 25.9 mEq/l (22.0-26.0); Methemoglobin ABG 0.3 %THb (0-1.5); Oxygen Content ABG 14.4 %vol (16.0-22.0); Oxygen Saturation ABG 93.3 % (95.0-100.0); PCO2 ABG 42.9 mmHg (35.0-45.0); PO2 ABG 67.1 mmHg (80.0-100.0); PO2 FiO2 Ratio Arterial Blood 1.68 %; Reduced Hemoglobin 7.1 %THb (0-5.0); Total Hemoglobin 11.1 g/dL (12.0-18.0); pH ABG 7.399 (7.350-7.450)
[2024-06-15 05:42] LABS: Device VENTILATOR; Modified Allen's Test Pass; Site Drawn RIGHT RADIAL
[2024-06-15 05:43] LABS: Arterial Blood Gas PEEP 8 cmH2O; Arterial Blood Gas Tidal Volume 400 ml; Arterial Blood Gas Vent Mode CMV; Arterial Blood Gas Ventilator rate 20 /MIN
[2024-06-15 05:51] LABS: Basophils Percent Auto 0.2 % (0.2-1.2); Eosinophils Absolute Auto 0.2 K/mm3 (0-0.3); Eosinophils Percent Auto 1.2 % (0-4.4); Hematocrit 32.1 % (37.0-47.0); Hemoglobin 10.1 g/dL (12.0-15.0); Immature Granulocyte Absolute 0.16 K/mm3 (0.00-0.031); Lymphocytes Absolute Auto 1.16 K/mm3 (0.9-3.2); Lymphocytes Percent Auto 7.2 % (18.3-44.2); Mean Corpuscular HGB Conc 31.5 g/dl (32-36); Mean Corpuscular Hemoglobin 27.5 pg (26-34); Mean Corpuscular Volume 87.5 fl (80-100); Mean Platelet Volume 10.4 fl (7.4-10.4); Monocytes Absolute Auto 1.2 K/mm3 (0.1-0.6); Monocytes Percent Auto 7.3 % (2.6-8.5); Neutrophils Absolute Auto 13.3 K/mm3 (1.3-6.7); Neutrophils Percent Auto 83.1 % (45.5-73.1); Platelet Count Result 345 k/mm3 (150-375); Red Blood Count 3.67 M/mm3 (4.2-5.4); Red Cell Distribution Width 19.4 % (11.5-14.5); White Blood Count 16.1 K/mm3 (4.5-10.0)
[2024-06-15 06:53] LABS: Alanine Aminotransferase 73 U/L (6-35); Albumin Level 3.3 g/dL (3.5-5.1); Alkaline Phosphatase 246 U/L (38-126); Anion Gap 9 mmol/L (4-12); Aspartate Amino Transferase 129 U/L (14-36); Bilirubin,Total 1.6 mg/dL (0.2-1.3); Blood Urea Nitrogen 86 mg/dL (7-17); Calcium 10.2 mg/dL (8.4-10.2); Carbon Dioxide 27 mmol/L (22-30); Chloride 95 mmol/L (98-107); Estimated CRCL calculation 21 ml/min; Estimated Glomerular Filt Rate 10; Glucose 168 mg/dL (65-110); Magnesium 2.6 mg/dL (1.6-2.3); Phosphorus 4.8 mg/dL (2.5-4.5); Potassium 4.6 mmol/L (3.4-5.0); Sodium 131 mmol/L (137-145)
[2024-06-15] MEDS: CENTRAL LINE FLUSH 10 ML IV PUSH (07:08)
[2024-06-15] MEDS: SODIUM CHLORIDE 0.9% IV 1,000 ML 999 ML IV CONT (08:09)
[2024-06-15] MEDS: EPOETIN ALFA-EPBX 4,000 UNITS/ML VIAL 4000 UNITS IV PUSH (08:09)
--- NOTE | 2024-06-15 08:15 | PCRCNOTE ---
Tube advanced from 23cm to 25cm . Order to advance tube 2cm per Dr Romero.
[2024-06-15] MEDS: MIDAZOLAM 100MG/NS 100ML(*CRX) 100 MG/100 ML BAG IV CONT (08:36)
--- NOTE | 2024-06-15 08:36 | WPDINTPN ---
Progress Note: A&P Assessment and Plan (1) Acute respiratory failure: Code(s): J96.00 - Acute respiratory failure, unspecified whether with hypoxia or hypercapnia Status: Acute Assessment and Plan: Chest x-ray bilateral diffuse pulmonary infiltrates/pulmonary edema. Patient was placed on BiPAP. ABG showed hypercapnic and hypoxemic respiratory failure. Etiology pulmonary edema, pneumonia, ARDS -06/05: patient intubated for impending respiratory failure. Intubation was slightly challenging secondary to body habitus, small mouth, large tongue, redundant tissue in the hypopharynx and anterior vocal cords requiring cricoid pressure and use of glide scope. -continue CMV mode of ventilation, currently on PEEP down to 8, 40% FiO2, respiratory rate to 20 -chest x-ray reviewed and shows improvement although still has diffuse bilateral infiltrates -continue bronchodilators - fentanyl and Versed infusion for analgosedation, will maintain RASS of -2 -patient has significant volume overload and need additional fluid removed. Continue dialysis for fluid removal again today (2) Septic shock: Code(s): A41.9 - Sepsis, unspecified organism; R65.21 - Severe sepsis with septic shock Status: Acute Assessment and Plan: Septic shock could be related to UTI, pneumonia -patient was hypotensive in the intermediate Unit and was transferred to the ICU which she received fluids, albumin -continue norepinephrine, will maintain MAP > 65 mmHg or SBP > 100 mmHg adequate end organ perfusion -off vasopressin since 06/06/2024 evening -off vancomycin -c completed cefepime for a total of 7 days -fluconazole was discontinued given her renal dysfunction -off stress dose steroids -continue midodrine 06/05/2024: Echocardiogram Summary 1. Left ventricular chamber dimension is normal. 2. Left ventricular systolic function is normal, estimated at 65-70%. 3. The left ventricular diastolic function is grade I diastolic dysfunction. 4. Right ventricular chamber dimension is moderately enlarged. 5. Right ventricular systolic function is normal. 6. Left atrial chamber dimension is moderately enlarged. 7. Right atrial chamber dimension is moderately enlarged. 8. There is mild to moderate tricuspid valve regurgitation. (3) JOVI (acute kidney injury): Code(s): N17.9 - Acute kidney failure, unspecified Status: Acute Assessment and Plan: Patient with acute kidney injury, this morning her creatinine is 4.60 (creatinine on admission on 06/02/2024 was 2.10 and her creatinine on 04/26/2024 was 0.90) -etiology for acute kidney injury could be multifactorial, hypotension, shock, sepsis, UTI/pneumonia, hypoxia,? SLE flare, CHF, -CK levels are within normal limits -urine eosinophils were negative -urine electrolytes showed prerenal picture, patient seems to be volume overloaded -was given IV fluids and albumin overnight, will hold fluids for now -discussed with county engineer at [facility], feels that the patient is unstable to be transferred at this time for CRRT, recommended conventional dialysis. -discussed with rat breeder at [facility], agrees to conventional dialysis at this time -06/05: dialysis catheter was placed in the right IJ and exchange for the central line -06/05: Initiated dialysis, with 3000 mL of fluid removal -06/06: Dialysis with 3000 mL in fluid removal -06/07: Dialysis with 3700 mL in fluid removal -06/08: Dialysis with 2900 mL in fluid removal -06/09: Dialysis with 3000 mL in fluid removal -06/10: No dialysis -06/12: Patient was dialyzed and 3.1 P L fluid was removed -06/13 getting dialyzed again today. 4 L removed - 06/14: 3 L removed - 06/15: Patient getting dialyzed again today. Would discuss with Nephrology regarding higher bicarb bath as patient will need metabolic compensation her likely chronic hypercarbic respiratory failure. (4) Pulmonary edema: Code(s): J81.1 - Chronic pulmonary edema Status: Acute Assessment and Plan: Pulmonary edema likely related to acute kidney injury, ARDS, -did not respond to Bumex -continue fluid removal with dialysis (5) Type 2 diabetes mellitus: Code(s): E11.9 - Type 2 diabetes mellitus without complications Status: Acute Assessment and Plan: SSI and accucheks HbA1C is 5.7 this admission (6) Afib: Code(s): I48.91 - Unspecified atrial fibrillation Status: Acute Assessment and Plan: continue amiodarone and Eliquis - flecainide was stopped (7) SLE (systemic lupus erythematosus): Code(s): M32.9 - Systemic lupus erythematosus, unspecified Status: Acute Assessment and Plan: ? SLE flare Off steroids (8) Liver cirrhosis secondary to HOFFMANN: Code(s): K75.81 - Nonalcoholic steatohepatitis (HOFFMANN); K74.60 - Unspecified cirrhosis of liver Status: Acute Assessment and Plan: Continues to have mild elevation in LFTs and bilirubin which is stable 06/10/2024: RUQ ultrasound: Fat infiltration. Enlarged left lobe of the liver. Slightly thickened wall of the gallbladder. Trace of ascites. Otherwise, normal Limited ultrasound of the abdomen. -06/10/2024: Hepatitis panel is negative -continue to monitor (9) GERD (gastroesophageal reflux disease): Code(s): K21.9 - Gastro-esophageal reflux disease without esophagitis Status: Acute Assessment and Plan: Continue Protonix (10) Morbid obesity with BMI of 50.0-59.9, adult: Code(s): E66.01 - Morbid (severe) obesity due to excess calories; Z68.43 - Body mass index [BMI] 50.0-59.9, adult Status: Acute Assessment and Plan: Once extubated she will need lifestyle changes Plan DVT prophylaxis: Eliquis Stress ulcer prophylaxis: Protonix Nutrition: Tube feeds at goal and tolerating Code Status: Full code Critical Care Time Spent: 30 minutes Due to a high probability of clinically significant, life threatening deterioration, the patient required my highest level of preparedness to intervene emergently and I personally spent this critical care time directly and personally managing the patient. This critical care time included obtaining a history; examining the patient; pulse oximetry; ordering and review of studies; arranging urgent treatment with development of a management plan; evaluation of patient's response to treatment; frequent reassessment; and discussions with other providers. It was exclusive of separately billable procedures and treating other patients and teaching time. Please see Assessment and Plan section and the rest of the note for further information on patient assessment and treatment This dictation may have been done utilizing a voice recognition system. Attempts have been made to correct errors. However, there may be uncorrected grammatical, spelling, and recognitions errors present. Subjective Date/time seen: 06/15/24 Overnight events reviewed. Afebrile Continues to be on mechanical ventilation 40% FiO2 8 of PEEP Tolerating tube feeds Minimal urine output Continues to be on vasopressors Levophed Continues to be sedated with Versed and fentanyl Other Vitals acceptable Interval history: Reason for consult: Acute respiratory failure, septic shock, acute kidney injury, pulmonary edema 06/05: Intubated Review of Systems Review of Systems: ROS unobtainable: Yes unobtainable due to endotracheal tube, unobtainable due to medical condition and unobtainable due to mental status Exam Narrative: General: Morbidly obese female currently intubated and sedated in no acute distress HEENT:? Pupils equal and reactive bilaterally, sclera is clear, ETT in place Neck:, short and thick neck, Respiratory:? Decreased and coarse breath sounds bilaterally, no wheezing, Cardiac:? S1-S2 is normal, regular rate and rhythm Abdomen:? Morbid obesity, soft, hypoactive bowel sounds tenderness in right upper quadrant Extremities:? Bilateral lower extremity pitting edema improving, wrinkling of skin on the feet are noted, palpable pedal pulses. Right calf erythema has improved, Neuro:? Patient is intubated, sedated, opens her eyes, follows simple commands in all extremities and nods to questions Skin:? Erythema in the intertriginous region and under her pannus, skin is dry and warm Psych:? Unable to assess at this time Objective Data Vital Signs Vital Signs: Vital Signs - 24 hr 06/14/24 08:55 06/14/24 08:55 06/14/24 09:16 Temperature 36.7 C Pulse Rate 65 66 Respiratory Rate 20 Blood Pressure 100/49 L 100/47 L Pulse Oximetry Oxygen Delivery Fraction of Inspired Oxygen 40 06/14/24 09:30 06/14/24 09:45 06/14/24 10:00 Temperature Pulse Rate 65 65 64 Respiratory Rate Blood Pressure 100/46 L 92/45 L 108/55 L Pulse Oximetry Oxygen Delivery Fraction of Inspired Oxygen 06/14/24 10:07 06/14/24 10:15 06/14/24 09:55 Temperature Pulse Rate 64 65 65 Respiratory Rate Blood Pressure 109/51 L 92/45 L Pulse Oximetry 96 Oxygen Delivery Mechanical Ventilation Fraction of Inspired Oxygen 40 06/14/24 10:15 06/14/24 10:00 06/14/24 10:00 Temperature Pulse Rate 65 66 66 Respiratory Rate 22 H 22 H Blood Pressure 109/51 L Pulse Oximetry Oxygen Delivery Fraction of Inspired Oxygen 06/14/24 10:30 06/14/24 10:45 06/14/24 11:00 Temperature Pulse Rate 65 65 63 Respiratory Rate Blood Pressure 98/46 L 102/45 L 98/44 L Pulse Oximetry Oxygen Delivery Fraction of Inspired Oxygen 06/14/24 10:00 06/14/24 10:00 06/14/24 10:30 Temperature Pulse Rate 62 62 64 Respiratory Rate 20 Blood Pressure 98/44 L 98/46 L Pulse Oximetry 94 Oxygen Delivery Fraction of Inspired Oxygen 06/14/24 10:45 06/14/24 11:00 06/14/24 11:15 Temperature Pulse Rate 62 63 63 Respiratory Rate Blood Pressure 102/45 L 98/44 L 97/47 L Pulse Oximetry Oxygen Delivery Fraction of Inspired Oxygen 06/14/24 11:15 06/14/24 11:30 06/14/24 11:45 Temperature Pulse Rate 65 63 65 Respiratory Rate Blood Pressure 97/47 L 97/42 L 103/48 L Pulse Oximetry Oxygen Delivery Fraction of Inspired Oxygen 06/14/24 11:30 06/14/24 11:45 06/14/24 12:00 Temperature Pulse Rate 63 63 Respiratory Rate Blood Pressure 97/42 L 103/48 L Pulse Oximetry Oxygen Delivery Mechanical Ventilation Fraction of Inspired Oxygen 40 06/14/24 12:00 06/14/24 12:00 06/14/24 12:04 Temperature Pulse Rate 61 61 Respiratory Rate 21 H Blood Pressure 106/49 L Pulse Oximetry Oxygen Delivery Fraction of Inspired Oxygen 40 06/14/24 12:05 06/14/24 12:15 06/14/24 12:00 Temperature Pulse Rate 61 62 62 Respiratory Rate 21 H Blood Pressure 106/49 L Pulse Oximetry Oxygen Delivery Fraction of Inspired Oxygen 06/14/24 12:00 06/14/24 12:15 06/14/24 12:18 Temperature Pulse Rate 61 62 62 Respiratory Rate Blood Pressure 106/49 L 106/49 L 104/47 L Pulse Oximetry Oxygen Delivery Fraction of Inspired Oxygen 06/14/24 12:18 06/14/24 12:00 06/14/24 13:08 Temperature 36.5 C 36.8 C Pulse Rate 64 64 68 Respiratory Rate 20 21 H Blood Pressure 109/51 L 106/49 L 107/47 L Pulse Oximetry 95 Oxygen Delivery Fraction of Inspired Oxygen 06/14/24 13:05 06/14/24 13:05 06/14/24 13:15 Temperature Pulse Rate 67 67 66 Respiratory Rate 25 H 23 H Blood Pressure Pulse Oximetry 100 Oxygen Delivery Mechanical Ventilation Fraction of Inspired Oxygen 40 06/14/24 13:45 06/14/24 13:45 06/14/24 14:00 Temperature Pulse Rate 60 60 61 Respiratory Rate 29 H Blood Pressure 103/44 L 103/44 L 110/47 L Pulse Oximetry 92 Oxygen Delivery Fraction of Inspired Oxygen 06/14/24 14:00 06/14/24 14:00 06/14/24 14:00 Temperature Pulse Rate 61 61 61 Respiratory Rate 29 H Blood Pressure 110/47 L Pulse Oximetry Oxygen Delivery Fraction of Inspired Oxygen 06/14/24 14:10 06/14/24 14:10 06/14/24 14:00 Temperature Pulse Rate 65 65 61 Respiratory Rate 23 H 23 H 29 H Blood Pressure Pulse Oximetry Oxygen Delivery Fraction of Inspired Oxygen 06/14/24 14:15 06/14/24 14:30 06/14/24 15:32 Temperature Pulse Rate 62 61 Respiratory Rate Blood Pressure 111/47 L 117/51 L Pulse Oximetry Oxygen Delivery Mechanical Ventilation Fraction of Inspired Oxygen 40 06/14/24 15:36 06/14/24 16:00 06/14/24 16:00 Temperature 36.7 C Pulse Rate 60 60 Respiratory Rate 20 Blood Pressure 110/49 L 110/49 L Pulse Oximetry 94 Oxygen Delivery Fraction of Inspired Oxygen 40 06/14/24 16:00 06/14/24 16:00 06/14/24 16:30 Temperature Pulse Rate 60 61 61 Respiratory Rate 20 20 Blood Pressure 108/54 L Pulse Oximetry Oxygen Delivery Fraction of Inspired Oxygen 06/14/24 16:30 06/14/24 16:00 06/14/24 16:45 Temperature Pulse Rate 62 60 60 Respiratory Rate Blood Pressure 108/47 L Pulse Oximetry 94 Oxygen Delivery Mechanical Ventilation Fraction of Inspired Oxygen 40 06/14/24 17:00 06/14/24 17:15 06/14/24 18:01 Temperature Pulse Rate 62 62 62 Respiratory Rate Blood Pressure 106/47 L 106/53 L 114/53 L Pulse Oximetry Oxygen Delivery Fraction of Inspired Oxygen 06/14/24 18:00 06/14/24 16:00 06/14/24 18:00 Temperature Pulse Rate 63 61 63 Respiratory Rate 20 20 20 Blood Pressure 114/53 L Pulse Oximetry 95 Oxygen Delivery Fraction of Inspired Oxygen 06/14/24 18:15 06/14/24 18:00 06/14/24 20:26 Temperature Pulse Rate 64 65 62 Respiratory Rate 20 22 H Blood Pressure 116/50 L Pulse Oximetry Oxygen Delivery Fraction of Inspired Oxygen 06/14/24 20:30 06/14/24 20:30 06/14/24 20:30 Temperature Pulse Rate 63 63 63 Respiratory Rate 25 H Blood Pressure 118/54 L Pulse Oximetry Oxygen Delivery Fraction of Inspired Oxygen 06/14/24 20:30 06/14/24 20:00 06/14/24 20:00 Temperature 37.2 C Pulse Rate 63 68 63 Respiratory Rate 25 H 24 H Blood Pressure 104/48 L Pulse Oximetry 94 Oxygen Delivery Fraction of Inspired Oxygen 06/14/24 20:00 06/14/24 20:00 06/14/24 20:36 Temperature Pulse Rate 63 63 Respiratory Rate 25 H 23 H Blood Pressure Pulse Oximetry 94 Oxygen Delivery Mechanical Ventilation Fraction of Inspired Oxygen 40 40 06/14/24 20:06 06/14/24 22:00 06/14/24 22:00 Temperature Pulse Rate 63 63 63 Respiratory Rate 21 H Blood Pressure 96/48 L Pulse Oximetry 95 94 Oxygen Delivery Mechanical Ventilation Fraction of Inspired Oxygen 40 06/14/24 22:31 06/14/24 22:31 06/14/24 22:31 Temperature Pulse Rate 63 63 63 Respiratory Rate 21 H 25 H Blood Pressure 110/50 L Pulse Oximetry Oxygen Delivery Fraction of Inspired Oxygen 06/15/24 00:00 06/15/24 00:00 06/15/24 00:00 Temperature Pulse Rate 63 68 Respiratory Rate 25 H Blood Pressure Pulse Oximetry 94 Oxygen Delivery Mechanical Ventilation Fraction of Inspired Oxygen 40 40 06/14/24 23:03 06/15/24 02:15 06/15/24 02:10 Temperature Pulse Rate 68 65 66 Respiratory Rate 21 H Blood Pressure Pulse Oximetry 94 94 Oxygen Delivery Mechanical Ventilation Mechanical Ventilation Fraction of Inspired Oxygen 40 40 06/15/24 02:22 06/15/24 00:00 06/15/24 00:00 Temperature 36.8 C Pulse Rate 65 63 63 Respiratory Rate 24 H 20 Blood Pressure 98/49 L Pulse Oximetry 93 Oxygen Delivery Fraction of Inspired Oxygen 06/15/24 00:00 06/15/24 00:00 06/15/24 01:15 Temperature Pulse Rate 63 63 67 Respiratory Rate 21 H 21 H Blood Pressure 111/55 L Pulse Oximetry Oxygen Delivery Fraction of Inspired Oxygen 06/15/24 01:48 06/15/24 01:48 06/15/24 01:48 Temperature Pulse Rate 63 63 63 Respiratory Rate 21 H Blood Pressure 106/54 L 106/54 L Pulse Oximetry Oxygen Delivery Fraction of Inspired Oxygen 06/15/24 01:48 06/15/24 02:00 06/15/24 02:00 Temperature Pulse Rate 63 63 63 Respiratory Rate 21 H 20 Blood Pressure 102/50 L Pulse Oximetry 94 Oxygen Delivery Fraction of Inspired Oxygen 06/15/24 04:00 06/15/24 04:00 06/15/24 04:00 Temperature 36.6 C Pulse Rate 65 64 Respiratory Rate 24 H 24 H Blood Pressure 99/62 L Pulse Oximetry 94 94 Oxygen Delivery Mechanical Ventilation Fraction of Inspired Oxygen 40 40 06/15/24 05:05 06/15/24 04:00 06/15/24 04:00 Temperature Pulse Rate 73 64 64 Respiratory Rate 24 H 24 H Blood Pressure Pulse Oximetry 94 Oxygen Delivery Mechanical Ventilation Fraction of Inspired Oxygen 40 06/15/24 06:00 06/15/24 06:00 06/15/24 04:00 Temperature Pulse Rate 65 65 73 Respiratory Rate 22 H 22 H Blood Pressure 99/62 L Pulse Oximetry Oxygen Delivery Fraction of Inspired Oxygen 06/15/24 04:30 06/15/24 05:00 06/15/24 06:00 Temperature Pulse Rate 72 73 65 Respiratory Rate Blood Pressure 112/63 124/51 L Pulse Oximetry Oxygen Delivery Fraction of Inspired Oxygen 06/15/24 06:00 06/15/24 06:00 06/15/24 04:00 Temperature Pulse Rate 65 65 62 Respiratory Rate 22 H Blood Pressure 104/44 L Pulse Oximetry 94 Oxygen Delivery Fraction of Inspired Oxygen 06/15/24 07:18 06/15/24 07:22 06/15/24 07:27 Temperature Pulse Rate 65 68 78 Respiratory Rate 21 H 24 H Blood Pressure Pulse Oximetry 95 Oxygen Delivery Mechanical Ventilation Fraction of Inspired Oxygen 40 06/15/24 07:44 06/15/24 07:20 06/15/24 07:20 Temperature 36.6 C Pulse Rate 66 69 Respiratory Rate 22 H Blood Pressure 110/52 L 108/51 L Pulse Oximetry 94 Oxygen Delivery Fraction of Inspired Oxygen 40 06/15/24 08:00 06/15/24 07:45 06/15/24 08:15 Temperature Pulse Rate 67 67 72 Respiratory Rate Blood Pressure 99/48 L 99/46 L 102/51 L Pulse Oximetry Oxygen Delivery Fraction of Inspired Oxygen 06/15/24 08:30 Temperature Pulse Rate 68 Respiratory Rate Blood Pressure 96/43 L Pulse Oximetry Oxygen Delivery Fraction of Inspired Oxygen Intake/Output Intake/Output: Intake & Output 06/12/24 06/13/24 06/14/24 06/15/24 23:59 23:59 23:59 23:59 Intake Total 1985.4 1693.2 1649.7 715.2 Output Total 3675 4125 3110 100 Balance -1689.6 -2431.8 -1460.3 615.2 Meds/Results Medications: Active Medications Generic Name Dose Route Start Last Admin Trade Name Freq PRN Reason Stop Dose Admin Acetaminophen 650 mg 06/07/24 21:53 06/07/24 22:30 Acetaminophen Elixir 325 Mg/10.15 Ml Udc PO 650 mg Q6H PRN Administration Mild Pain (1-3) or Fever Albuterol/Ipratropium 3 ml 06/05/24 11:15 06/15/24 07:18 Ipratropium 0.5 Mg/Albuterol Sulfate 2.5 Mg Ampul.Neb 3 Ml INHALATION 3 ml Q6HRT JOHN Administration Amiodarone HCl 200 mg 06/02/24 21:00 06/14/24 20:30 Amiodarone Hcl 200 Mg Tablet PO 200 mg Q12HR JOHN Administration Apixaban 5 mg 06/06/24 09:30 06/14/24 20:30 Apixaban 5 Mg Tablet PO 5 mg Q12HR JOHN Administration Dextrose 12.5 gm 06/05/24 11:46 Dextrose 50% 25 Gm/50 Ml Syringe IV PUSH PRN PRN Hypoglycemia Protocol Epoetin Shayan-epbx 4,000 units 06/15/24 19:36 06/15/24 08:09 Epoetin Shayan-Epbx 4,000 Units/Ml Vial IV PUSH 06/15/24 19:37 4,000 units ONCE ONE Administration Glucagon 1 mg 06/05/24 11:46 Glucagon For Inj 1 Mg Vial IM PRN PRN Hypoglycemia Protocol Glucose 15 gm 06/05/24 11:46 Glucose Oral Gel 15 Gm Of Glucse In 37.5 Gm Tube PO PRN PRN Hypoglycemia Protocol Norepinephrine Bitartrate 8 mg in 250 mls @ 15 mls/hr 06/05/24 00:35 06/15/24 06:00 Levophed 8 Mg/D5w 250 Ml IV CONT 6 mcg/min .[id number] JOHN 11.25 mls/hr Titration Protocol 8 MCG/MIN Fentanyl Citrate 2,500 mcg in 250 mls @ 5 mls/hr 06/05/24 08:35 06/15/24 06:00 Fentanyl 2,500 Mcg/Ns 250 Ml IV CONT 50 mcg/hr .Q50H JOHN 5 mls/hr Titration Protocol 50 MCG/HR Midazolam HCl 100 mg in 100 mls @ 2 mls/hr 06/05/24 08:35 06/15/24 06:00 Versed 100 Mg/Ns 100 Ml IV CONT 2 mg/hr .Q50H JOHN 2 mls/hr Titration Protocol 2 MG/HR Dextrose 1,000 mls @ 100 mls/hr 06/05/24 11:46 Dextrose 5% 1,000 Ml IVPB PRN PRN Hypoglycemia Protocol Albumin Human 50 mls @ 999 mls/hr 06/08/24 09:50 06/12/24 11:35 Albutein IVPB 07/08/24 09:49 999 mls/hr Q10M PRN Administration HYPOTENSION Insulin Aspart 3 - 6 units 06/05/24 12:00 06/15/24 07:08 Insulin Aspart (*Bkc) 100 Units/Ml SUB-Q Not Given Q6HR JOHN Protocol Midodrine 10 mg 06/05/24 09:00 06/14/24 17:15 Midodrine Hcl 10 Mg Tablet PO 10 mg TID JOHN Administration Multi-Ingred Cream/Lotion/Oil/Oint 1 applic 06/05/24 09:00 06/14/24 20:31 Mineral Oil/White Petrolatum Ointment EACH EYE 1 applic Q12HR JOHN Administration Ondansetron HCl 4 mg 06/11/24 07:47 06/11/24 13:40 Ondansetron Inj 4 Mg/2 Ml Vial IV PUSH 4 mg Q6H PRN Administration Nausea And Vomiting Pantoprazole Sodium 40 mg 06/06/24 09:00 06/14/24 20:30 Pantoprazole Sodium Iv 40 Mg Vial IV PUSH 40 mg Q12HR JOHN Administration Fluticasone/Salmeterol 2 puff 06/03/24 08:00 06/14/24 12:38 Fluticasone/Salmeterol 115-21 Mcg Inhaler 1 Puff INHALATION Not Given Q12HRT JOHN Sodium Chloride 10 ml 06/05/24 06:00 06/15/24 07:08 Central Line Flush IV PUSH 10 ml Q8HR JOHN Administration Sodium Chloride 20 ml 06/05/24 03:12 Central Line Flush IV PUSH PRN PRN after blood draws Umeclidinium [place] 1 puff 06/03/24 08:00 06/14/24 12:38 Umeclidinium [place] 62.5 Mcg Ellipta INHALATION Not Given DAILYRT REPLACED BY [facility] Radiology Results: ITS Impressions Renal Ultrasound 06/04/24 15:06 IMPRESSION: 1. Normal kidneys. No hydronephrosis. Chest/Abdomen/Pelvis CT 06/04/24 19:12 IMPRESSION: 1. Diffuse lung disease, consistent with pulmonary edema versus pneumonia. 2. Moderate volume of ascites. Venous Doppler Study 06/07/24 17:01 IMPRESSION: 1. No deep venous thrombosis. Abdomen Ultrasound 06/10/24 14:47 IMPRESSION: Fat infiltration. Enlarged left lobe of the liver. Slightly thickened wall of the gallbladder. Trace of ascites. Otherwise, normal Limited ultrasound of the abdomen. Abdomen X-Ray 06/11/24 07:58 Impression: Limited exam. NG tube is in satisfactory position. Chest X-Ray 06/15/24 06:13 IMPRESSION: 1. Diffuse lung disease with improvement on the left, consistent with pulmonary edema versus pneumonia. 2. Cardiomegaly. Labs Labs: Laboratory Results - last 24 hr 06/14/24 06/14/24 06/15/24 12:20 17:12 05:24 WBC 16.1 H RBC 3.67 L Hgb 10.1 L Hct 32.1 L MCV 87.5 MCH 27.5 MCHC 31.5 L RDW 19.4 H Plt Count 345 MPV 10.4 Immature Gran % (Auto) 1.0 H Neut % (Auto) 83.1 H Lymph % (Auto) 7.2 L [place] % (Auto) 7.3 Eos % (Auto) 1.2 Baso % (Auto) 0.2 Lymph # (Auto) 1.16 [place] # (Auto) 1.2 H Eos # (Auto) 0.2 Baso # (Auto) 0.0 Abs Immat Gran (auto) 0.16 H Absolute Neuts (auto) 13.3 H Absolute Nucleated RBC 0.000 Nucleated RBC % 0.0 Puncture Site Right radial ABG pH 7.399 ABG pCO2 42.9 ABG pO2 67.1 L ABG PO2/FiO2 Ratio 1.68 ABG HCO3 25.9 ABG O2 Saturation 93.3 L ABG O2 Content 14.4 L ABG Base Excess 0.9 A-a Gradient 168.8 Oxyhemoglobin 92.0 Carboxyhemoglobin 0.6 Methemoglobin 0.3 Reduced Hemoglobin 7.1 H Total Hemoglobin 11.1 L O2 Delivery Device Ventilator O2 Liters/Min Not Reportable Minute Volume Not Reportable Vent Rate 20 Vent Mode Cmv FiO2 40 Tidal Volume 400 PEEP 8 Peak Inspir Pressure Not Reportable Pressure Support Not Reportable Sodium 131 L Potassium 4.6 Chloride 95 L Carbon Dioxide 27 Anion Gap 9 BUN 86 H D Creatinine 4.50 H Estim Creat Clear Calc 21 Estimated GFR 10 L Glucose 168 H POC Capillary Glucose 193 H 161 H Calcium 10.2 Phosphorus 4.8 H Magnesium 2.6 H Total Bilirubin 1.6 H AST 129 H ALT 73 H Alkaline Phosphatase 246 H Total Protein 7.0 Albumin 3.3 L Quality VTE Prophylaxis VTE prophylaxis: pharmacologic ordered
--- NOTE | 2024-06-15 09:34 | PM.PNNEP ---
Progress Note: A&P Assessment and Plan (1) JOVI (acute kidney injury): Code(s): N17.9 - Acute kidney failure, unspecified Status: Acute Assessment and Plan: normal creatinine ~ 1 month ago admitted with a creatinine of 2.1mg/dl with ongoing worsening noted due to multifactorial ATN: hemodynamic instability/shock sepsis infection (UTI +/- pneumonia) -- although culture negative to date hypoxia SLE flare (?) other? evaluation to date noted: renal ultrasound negative for obstruction urine eosinophils negative urine electrolytes pre-renal (in spite of evidence of volume overload) CPK low moderate proteinuria (~ 600mg) UA with blood and protein (and negative urine culture) complements normal (arguing against lupus flare) has been dialysis dependent since 06/05 daily dialysis alternating with DUF (except Sundays) to facilitate euvolemia HD today follow repeat labs and UOP to assess for potential renal recovery (2) Acute respiratory failure: Code(s): J96.00 - Acute respiratory failure, unspecified whether with hypoxia or hypercapnia Status: Acute Assessment and Plan: intubated on 06/05 for impending respiratory failure failed BiPAP therapy ABG with noted hypercapnea and hypoxia secondary to pulmonary edema, diffuse bilateral infiltrates and ARDS on bronchodilators weaned off steroids continue daily dialyis/dry ultrafiltration for fluid removal almost 16L negative since dialysis initiated.... decreasing PEEP and FIO2 requirement noted (3) Septic shock: Code(s): A41.9 - Sepsis, unspecified organism; R65.21 - Severe sepsis with septic shock Status: Acute Assessment and Plan: initially thought to be secondary to UTI and pneumonia remains on low dose levophed therapy to maintain MAP Echo results noted continue midodrine culture data noted: blood/urine cultures from 06/02 negative blood culture 06/06 with E. coli and Staph epidermidis urine culture on 06/06 negative. blood culture on 06/08 negative off all antibiotics at this time (since 06/12) wean levophed as tolerated follow trend of hemodynamics (4) Pulmonary edema: Code(s): J81.1 - Chronic pulmonary edema Status: Acute Assessment and Plan: contributing to #2 secondary to JOVI/ARF but ARDS an issues as well failed diuretic therapy HD alternating with DUF for daily fluid removal (5) Afib: Code(s): I48.91 - Unspecified atrial fibrillation Status: Acute Assessment and Plan: rate control stratgey on amiodarone and Eliquis (6) Liver cirrhosis secondary to HOFFMANN: Code(s): K75.81 - Nonalcoholic steatohepatitis (HOFFMANN); K74.60 - Unspecified cirrhosis of liver Status: Acute Assessment and Plan: known history normal liver by recent imaging noted elevations in AST/ALT that have been up and down fluctuating LFTS thought to be more related to congestion/volume overload continue to follow (7) Type 2 diabetes mellitus: Code(s): E11.9 - Type 2 diabetes mellitus without complications Status: Acute Assessment and Plan: follow accu-cheks glycemic control per organic section technical lead/hospitalist Will continue to follow. Subjective Date/time seen: 06/15/24 09:34 Interval history: Follow-up for acute kidney injury/acute renal failure requiring hemodialysis. Tolerating dialysis treatment at the time of my visit (seen on HD at 9:25AM); remains intubated/sedated and on mechanical ventilation; still requiring low dose levophed gtt; stable mentation noted; stable FiO2 requirements and on reduced PEEP at this time; urine output remains low; no other issues/events overnight or earlier this morning. Exam Narrative: General: large female intubated/sedated and on mechanical ventilation Heart: normal S1 and S2; no rub Lungs: coarse breath sounds throughout with some scattered crackles Abdomen: obese but soft, nontender, positive bowel sounds; abdominal/flank edema noted Extremities: no cyanosis or clubbing; 2 - 3+ edema Skin: warm and dry Objective Data Vital Signs Vital Signs: Vital Signs Temp Pulse Resp BP Pulse Ox O2 Del Method FiO2 06/15/24 09:30 70 101/49 L 06/15/24 09:15 70 102/46 L 06/15/24 08:00 68 99/48 L 06/15/24 08:32 67 96/43 L 06/15/24 08:00 69 24 H 06/15/24 08:36 67 24 H 06/15/24 08:36 67 24 H 06/15/24 09:00 68 104/46 L 06/15/24 08:45 70 105/48 L 06/15/24 08:30 68 96/43 L 06/15/24 08:15 72 102/51 L 06/15/24 07:45 67 99/46 L 06/15/24 08:00 67 99/48 L 06/15/24 07:20 40 06/15/24 07:20 97.8 F 69 22 H 108/51 L 94 06/15/24 07:44 66 110/52 L 06/15/24 07:27 78 24 H 06/15/24 07:22 68 95 Mechanical Ventilation 40 06/15/24 07:18 65 21 H 06/15/24 04:00 62 06/15/24 06:00 65 22 H 104/44 L 94 06/15/24 06:00 65 06/15/24 06:00 65 06/15/24 05:00 73 124/51 L 06/15/24 04:30 72 112/63 06/15/24 04:00 73 99/62 L 06/15/24 06:00 65 22 H 06/15/24 06:00 65 22 H 06/15/24 04:00 64 24 H 06/15/24 04:00 64 24 H 06/15/24 05:05 73 94 Mechanical Ventilation 40 06/15/24 04:00 97.8 F 64 24 H 99/62 L 94 06/15/24 04:00 65 24 H 94 Mechanical Ventilation 40 06/15/24 04:00 40 06/15/24 02:00 63 20 102/50 L 94 06/15/24 02:00 63 06/15/24 01:48 63 21 H 06/15/24 01:48 63 21 H 06/15/24 01:48 63 106/54 L 06/15/24 01:48 63 106/54 L 06/15/24 01:15 67 111/55 L 06/15/24 00:00 63 21 H 06/15/24 00:00 63 21 H 06/15/24 00:00 63 06/15/24 00:00 98.2 F 63 20 98/49 L 93 06/15/24 02:22 65 24 H 06/15/24 02:10 66 94 Mechanical Ventilation 40 06/15/24 02:15 65 21 H 06/14/24 23:03 68 94 Mechanical Ventilation 40 06/15/24 00:00 40 06/15/24 00:00 68 25 H 94 Mechanical Ventilation 40 06/15/24 00:00 63 06/14/24 22:31 63 25 H 06/14/24 22:31 63 21 H 06/14/24 22:31 63 110/50 L 06/14/24 22:00 63 21 H 96/48 L 94 06/14/24 22:00 63 06/14/24 20:06 63 95 Mechanical Ventilation 40 06/14/24 20:36 63 23 H 06/14/24 20:00 40 06/14/24 20:00 63 25 H 94 Mechanical Ventilation 40 06/14/24 20:00 63 06/14/24 20:00 99 F 68 24 H 104/48 L 94 06/14/24 20:30 63 25 H 06/14/24 20:30 63 25 H 06/14/24 20:30 63 118/54 L 06/14/24 20:30 63 06/14/24 20:26 62 22 H 06/14/24 18:00 65 20 06/14/24 18:15 64 116/50 L 06/14/24 18:00 63 20 114/53 L 95 06/14/24 16:00 61 20 06/14/24 18:00 63 20 06/14/24 18:01 62 114/53 L 06/14/24 17:15 62 106/53 L 06/14/24 17:00 62 106/47 L 06/14/24 16:45 60 108/47 L 06/14/24 16:00 60 06/14/24 16:30 62 94 Mechanical Ventilation 40 06/14/24 16:30 61 108/54 L 06/14/24 16:00 61 20 06/14/24 16:00 60 20 06/14/24 16:00 60 110/49 L 06/14/24 16:00 98.1 F 60 20 110/49 L 94 06/14/24 15:36 40 06/14/24 15:32 Mechanical Ventilation 40 06/14/24 14:30 61 117/51 L 06/14/24 14:15 62 111/47 L 06/14/24 14:00 61 29 H 06/14/24 14:10 65 23 H 06/14/24 14:10 65 23 H 06/14/24 14:00 61 29 H 06/14/24 14:00 61 06/14/24 14:00 61 110/47 L 06/14/24 14:00 61 29 H 110/47 L 92 06/14/24 13:45 60 103/44 L 06/14/24 13:45 60 103/44 L 06/14/24 13:15 66 23 H 06/14/24 13:05 67 25 H 06/14/24 13:05 67 100 Mechanical Ventilation 40 06/14/24 13:08 68 107/47 L 06/14/24 12:00 98.3 F 64 21 H 106/49 L 95 06/14/24 12:18 97.7 F 64 20 109/51 L 06/14/24 12:18 62 104/47 L 06/14/24 12:15 62 106/49 L 06/14/24 12:00 61 106/49 L 06/14/24 12:00 62 06/14/24 12:15 62 106/49 L 06/14/24 12:05 61 21 H 06/14/24 12:04 61 21 H 06/14/24 12:00 61 106/49 L 06/14/24 12:00 40 06/14/24 12:00 Mechanical Ventilation 40 06/14/24 11:45 63 103/48 L 06/14/24 11:30 63 97/42 L 06/14/24 11:45 65 103/48 L 06/14/24 11:30 63 97/42 L Intake/Output Intake/Output: Intake & Output 06/12/24 06/13/24 06/14/24 06/15/24 23:59 23:59 23:59 23:59 Intake Total 1985.4 1693.2 1649.7 793.7 Output Total 3675 4125 3110 100 Balance -1689.6 -2431.8 -1460.3 693.7 Meds/Results Medications: Active Medications Generic Name Dose Route Start Last Admin Trade Name Freq PRN Reason Stop Dose Admin Acetaminophen 650 mg 06/07/24 21:53 06/07/24 22:30 Acetaminophen Elixir 325 Mg/10.15 Ml Udc PO 650 mg Q6H PRN Administration Mild Pain (1-3) or Fever Albuterol/Ipratropium 3 ml 06/05/24 11:15 06/15/24 07:18 Ipratropium 0.5 Mg/Albuterol Sulfate 2.5 Mg Ampul.Neb 3 Ml INHALATION 3 ml Q6HRT JOHN Administration Amiodarone HCl 200 mg 10/12/24 21:00 06/14/24 20:30 Amiodarone Hcl 200 Mg Tablet PO 200 mg Q12HR JOHN Administration Apixaban 5 mg 06/06/24 09:30 06/14/24 20:30 Apixaban 5 Mg Tablet PO 5 mg Q12HR JOHN Administration Dextrose 12.5 gm 06/05/24 11:46 Dextrose 50% 25 Gm/50 Ml Syringe IV PUSH PRN PRN Hypoglycemia Protocol Epoetin Shayan-epbx 4,000 units 06/15/24 19:36 06/15/24 08:09 Epoetin Shayan-Epbx 4,000 Units/Ml Vial IV PUSH 06/15/24 19:37 4,000 units ONCE ONE Administration Glucagon 1 mg 06/05/24 11:46 Glucagon For Inj 1 Mg Vial IM PRN PRN Hypoglycemia Protocol Glucose 15 gm 06/05/24 11:46 Glucose Oral Gel 15 Gm Of Glucse In 37.5 Gm Tube PO PRN PRN Hypoglycemia Protocol Norepinephrine Bitartrate 8 mg in 250 mls @ 15 mls/hr 06/05/24 00:35 06/15/24 10:00 Levophed 8 Mg/D5w 250 Ml IV CONT 8 mcg/min .[id number] JOHN 15 mls/hr Titration Protocol 8 MCG/MIN Fentanyl Citrate 2,500 mcg in 250 mls @ 5 mls/hr 06/05/24 08:35 06/15/24 10:00 Fentanyl 2,500 Mcg/Ns 250 Ml IV CONT 50 mcg/hr .Q50H JOHN 5 mls/hr Titration Protocol 50 MCG/HR Midazolam HCl 100 mg in 100 mls @ 2 mls/hr 06/05/24 08:35 06/15/24 10:00 Versed 100 Mg/Ns 100 Ml IV CONT 2 mg/hr .Q50H JOHN 2 mls/hr Titration Protocol 2 MG/HR Dextrose 1,000 mls @ 100 mls/hr 06/05/24 11:46 Dextrose 5% 1,000 Ml IVPB PRN PRN Hypoglycemia Protocol Albumin Human 50 mls @ 999 mls/hr 06/08/24 09:50 06/12/24 11:35 Albutein IVPB 07/08/24 09:49 999 mls/hr Q10M PRN Administration HYPOTENSION Insulin Aspart 3 - 6 units 06/05/24 12:00 06/15/24 07:08 Insulin Aspart (*Bkc) 100 Units/Ml SUB-Q Not Given Q6HR [facility] Protocol Midodrine 10 mg 06/05/24 09:00 06/15/24 11:14 Midodrine Hcl 10 Mg Tablet PO Not Given TID [facility] Multi-Ingred Cream/Lotion/Oil/Oint 1 applic 06/05/24 09:00 06/14/24 20:31 Mineral Oil/White Petrolatum Ointment EACH EYE 1 applic Q12HR [facility] Administration Ondansetron HCl 4 mg 06/11/24 07:47 06/11/24 13:40 Ondansetron Inj 4 Mg/2 Ml Vial IV PUSH 4 mg Q6H PRN Administration Nausea And Vomiting Pantoprazole Sodium 40 mg 06/06/24 09:00 06/14/24 20:30 Pantoprazole Sodium Iv 40 Mg Vial IV PUSH 40 mg Q12HR [facility] Administration Fluticasone/Salmeterol 2 puff 06/03/24 08:00 06/14/24 12:38 Fluticasone/Salmeterol 115-21 Mcg Inhaler 1 Puff INHALATION Not Given Q12HRT [facility] Sodium Chloride 10 ml 06/05/24 06:00 06/15/24 07:08 Central Line Flush IV PUSH 10 ml Q8HR JOHN Administration Sodium Chloride 20 ml 06/05/24 03:12 Central Line Flush IV PUSH PRN PRN after blood draws Umeclidinium [place] 1 puff 06/03/24 08:00 06/14/24 12:38 Umeclidinium [place] 62.5 Mcg Ellipta INHALATION Not Given DAILYRT [facility] Radiology Results: ITS Impressions Renal Ultrasound 06/04/24 15:06 IMPRESSION: 1. Normal kidneys. No hydronephrosis. Chest/Abdomen/Pelvis CT 06/04/24 19:12 IMPRESSION: 1. Diffuse lung disease, consistent with pulmonary edema versus pneumonia. 2. Moderate volume of ascites. Venous Doppler Study 06/07/24 17:01 IMPRESSION: 1. No deep venous thrombosis. Abdomen Ultrasound 06/10/24 14:47 IMPRESSION: Fat infiltration. Enlarged left lobe of the liver. Slightly thickened wall of the gallbladder. Trace of ascites. Otherwise, normal Limited ultrasound of the abdomen. Abdomen X-Ray 06/11/24 07:58 Impression: Limited exam. NG tube is in satisfactory position. Chest X-Ray 06/15/24 06:13 IMPRESSION: 1. Diffuse lung disease with improvement on the left, consistent with pulmonary edema versus pneumonia. 2. Cardiomegaly. Labs Labs: Laboratory Tests 06/15/24 05:24 06/15/24 05:24 Calcium 10.2 Phosphorus 4.8 H Magnesium 2.6 H Total Bilirubin 1.6 H AST 129 H ALT 73 H Alkaline Phosphatase 246 H Total Protein 7.0 Albumin 3.3 L
--- NOTE | 2024-06-15 10:27 | PCNFU ---
Nutrition Follow-Up Complete: Suboptimal Energy Intake as related to mechanical ventilator as evidenced by NPO. Meet estimated nutritional needs - Needs being met with tube feeding. Continue with goal Goal: Pt current nutrition is Nepro at goal rate 40 ml/h. Provides about 100% EER and 100% estimated protein needs @ 1/2g/ IBW . Nutrition recommendation: No new nutrition recommendations. Continue with current tube feeding orders. Agree with order. Last recorded weight is 162 kg. down 40 lb/12 days since admission Bowel Motility: +1 BM 06/11/24 Labs Reviewed: Hgb 10.1, Hct 32.1, Alb 3.3, Na 131, BUN 86, Cre 4.5, Glu 168 Meds Noted: Fentanyl, versed, levophed. MAP 67 Skin: No pressure injuries Additional Notes: Stable on tube feeding. No changes to tube feeding orders. Continue orders. Will monitor weight, labs, skin, meds, diet orders every Tuesday and Tuesday.
--- NOTE | 2024-06-15 10:37 | PCNFU ---
Nutrition Follow-Up Complete: Suboptimal Energy Intake as related to mechanical ventilator as evidenced by NPO. Meet estimated nutritional needs - Goal partially being met with tube feeding. Continue same goal Goal: Pt current nutrition is Glucerna 1.2 @ 40 ml/h providing about 44% EER and 40% estimated protein needs. Nutrition recommendation: Increase tube feedings to 60 ml/h to better meet protein energy goals. Add Arpan BID to flushes for wound healing (90 kcal, 2.5 g protein) Last recorded weight is 162 kg. Bowel Motility: +1 BM 06/15/24 Labs Reviewed: Hcg 8.5, Hct 27.1, Alb 2.6, Na 146, BUN 39, Glu 176, Mag 2.5 Meds Noted: Pressors are off. Sedation with Fentanyl. Reglan, insulin Skin: Stage 2 pressure to sacrum. 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 Still sedated on vent; recommend increasing tube feeds to 60 mlh to better meet protein energy goals. Will monitor weight, labs, skin, meds, diet orders every Tuesday and Tuesday.
[2024-06-15] MEDS: AMIODARONE HCL 200 MG TABLET PO ×2 (12:00→22:00)
[2024-06-15] MEDS: PANTOPRAZOLE SODIUM IV 40 MG VIAL IV PUSH ×2 (12:00→22:00)
[2024-06-15] MEDS: MIDODRINE HCL 10 MG TABLET PO ×2 (12:00→16:53)
[2024-06-15] MEDS: MINERAL OIL/WHITE PETROLATUM OINTMENT 1 APPLIC EACH EYE ×2 (12:00→22:00)
[2024-06-15] MEDS: APIXABAN 5 MG TABLET PO ×2 (12:01→22:00)
[2024-06-15 12:05] LABS: Glucose Point of Care 191 mg/dl (65-105)
--- NOTE | 2024-06-15 14:06 | P.PNIM_ITS ---
Progress Note: A&P Assessment and Plan (1) Acute respiratory failure: Code(s): J96.00 - Acute respiratory failure, unspecified whether with hypoxia or hypercapnia Status: Acute Assessment and Plan: Patient originally admitted for difficulty voiding. Patient developed HoTN and hypoxia on 06/04 that worsened overnight. ABG showing 7.33/58/66.5 on HFNC. Patient brought to the ICU in the lens grinder rough hours of 06/05. She had increasing O2 requirements. CXR showed bilateral diffuse pulmonary infiltrates/pulmonary edema. Respiratory failure related to pulmonary edema, pneumonia and/or ARDS Patient was placed on BiPAP but ultimately intubated on 06/05/24. Despite daily HD, CXR showing edema vs PNA. Decreasing Peep requirements. Continue bronchodilators Fentanyl and Versed for sedation Continue dialysis for fluid removal per nephrology. Wean vent as tolerated. (2) Septic shock: Code(s): A41.9 - Sepsis, unspecified organism; R65.21 - Severe sepsis with septic shock Status: Acute Assessment and Plan: Patient was HoTN in the IMU and transferred to the ICU. Septic shock possibly related to UTI, pneumonia. Rt IJ central line was placed and Levophed started. She received fluids, albumin and midodrine BCx and UCx 06/02 negative. BCx 06/06 grew EColi and Staph Epidermidis. EColi was pansensitive. UCx 06/06 negative. Sputum Cx 06/07 growing yeast. BCx 06/08 negative Patient was on vancomycin and cefepime which were continued. Fluconazole was discontinued given her renal dysfunction Stress dose steroids were started but are off now Completed a course and now off all abx since 06/12. Off OYSTER CULLER since 06/06 but remains on Levophed. Wean as tolerated. Continue midodrine (3) JOVI (acute kidney injury): Code(s): N17.9 - Acute kidney failure, unspecified Status: Acute Assessment and Plan: Baseline Cr normal in April. Cr 2.1 on admission and has worsened JOVI related to shock, sepsis, UTI/pneumonia, hypoxia, SLE flare and/or CHF. TCK levels are normal. Ueos negative. Urine lytes c/w prerenal picture but patient seems to be volume overloaded Treated with IV fluids and albumin but renal function worsening and HD recommended. Office Support Associate consulted and dialysis catheter was placed 06/05 in the right IJ and exchanged for the central line HD daily with removal of anywhere from 2.9-4L per day since 06/05 (except 06/10) Cumulative fluid balance of -16.7L. Still appears to be fluid overloaded but much improved and UOP is dropping. Continue HD as she tolerates. (4) Pulmonary edema: Code(s): J81.1 - Chronic pulmonary edema Status: Acute Assessment and Plan: CT chest (06/04) showing diffuse lung disease c/w PNA vs pulmonary edema. COVID, RSV and influenza PCR negative Echo showing normal LV size and fxn (EF 65-70%), Grade I diastolic dysfxn, RV enlargement with normal fxn, moderate bi-atrial enlargement and mild-mod TR. Pulmonary edema likely related to acute kidney injury, ARDS. She did not respond to Bumex Repeat CXR today showing: diffuse lung disease with improvement on the the left and CMG Control fluid status with HD (5) Type 2 diabetes mellitus: Code(s): E11.9 - Type 2 diabetes mellitus without complications Status: Acute Assessment and Plan: A1c 5.7. The patient's blood glucose was reviewed on 06/15 Glucose remains reasonably well controlled. Continue AccuCheks covering with sliding scale. Hypoglycemia protocol available as needed. Continue to monitor (6) Afib: Code(s): I48.91 - Unspecified atrial fibrillation Status: Acute Assessment and Plan: HR in normal sinus and well controlled. Continue amiodarone Eliquis continued Flecainide stopped (7) SLE (systemic lupus erythematosus): Code(s): M32.9 - Systemic lupus erythematosus, unspecified Status: Acute Assessment and Plan: Consider SLE flare causinig her JOVI. Was started on stress dose steroids but now off Nephrology following (8) Liver cirrhosis secondary to HOFFMANN: Code(s): K75.81 - Nonalcoholic steatohepatitis (HOFFMANN); K74.60 - Unspecified cirrhosis of liver Status: Acute Assessment and Plan: Patient has a hx of liver cirrhosis. CT abd without contrast shows normal liver. Mild elevation in AST/ALT that have been up and down RUQ ultrasound 06/10 showing fat infiltration, enlarged left lobe of the liver and slightly thickened wall of the gallbladder. Trace ascites. Hepatitis panel is negative [place] elevated LFTs related to congestion. Continue to monitor (9) Morbid obesity with BMI of 50.0-59.9, adult: Code(s): E66.01 - Morbid (severe) obesity due to excess calories; Z68.43 - Body mass index [BMI] 50.0-59.9, adult Status: Acute Assessment and Plan: Once extubated she will need lifestyle changes Plan DVT prophylaxis: Eliquis Code Status: Full code Subjective Date/time seen: 06/15/24 14:06 Interval history: 54yo female with AFib on anticoagulation, PM and DM here for difficulty voiding. Patient had worsening respiratory status and hypotension despite ongoing therapy and was transferred to the ICU in the lens grinder rough hours of 06/05. Central line was placed and started on pressor therapy. She was intubated later that morning. Patient remains intubated and is unable to provide hx. She awakens easily. No issues overnight per RN. PEEP still at 8. Tolerated HD yesterday with removal of 3L and already having HD again this morning. Review of Systems Review of Systems: ROS unobtainable: Yes unobtainable due to endotracheal tube Exam Narrative: AF 99.5 116/51 70 24 96% MV Gen - intubated and on sedation currently undergoing HD at the time of the visit HEENT - ETT and OGT secured. Neck - Rt HD catheter accessed with pigtail in place. Chest - BS are less coarse CV - RRR S1/S2. Tele showing no significant dysrhythmias Abd - soft, morbidly obese, persistent flank and abd wall edema. - Lai secured with scant amount of dark yellow urine in the bag Ext - diffuse LE pitting pedal edema with improvement. heel pads in place. 2+ DP pulses bilaterally Neuro - sedated but awakens easily and follws commands Skin - Warm and dry. mild bilateral jenkins punk erythema not warm to touch Objective Data Vital Signs Vital Signs: Vital Signs - 24 hr 06/14/24 14:10 06/14/24 14:10 06/14/24 14:15 Temperature Pulse Rate 65 65 62 Respiratory Rate 23 H 23 H Blood Pressure 111/47 L Pulse Oximetry Oxygen Delivery Fraction of Inspired Oxygen 06/14/24 14:30 06/14/24 15:32 06/14/24 15:36 Temperature Pulse Rate 61 Respiratory Rate Blood Pressure 117/51 L Pulse Oximetry Oxygen Delivery Mechanical Ventilation Fraction of Inspired Oxygen 40 40 06/14/24 16:00 06/14/24 16:00 06/14/24 16:00 Temperature 98.1 F Pulse Rate 60 60 60 Respiratory Rate 20 20 Blood Pressure 110/49 L 110/49 L Pulse Oximetry 94 Oxygen Delivery Fraction of Inspired Oxygen 06/14/24 16:00 06/14/24 16:30 06/14/24 16:30 Temperature Pulse Rate 61 61 62 Respiratory Rate 20 Blood Pressure 108/54 L Pulse Oximetry 94 Oxygen Delivery Mechanical Ventilation Fraction of Inspired Oxygen 40 06/14/24 16:00 06/14/24 16:45 06/14/24 17:00 Temperature Pulse Rate 60 60 62 Respiratory Rate Blood Pressure 108/47 L 106/47 L Pulse Oximetry Oxygen Delivery Fraction of Inspired Oxygen 06/14/24 17:15 06/14/24 18:01 06/14/24 18:00 Temperature Pulse Rate 62 62 63 Respiratory Rate 20 Blood Pressure 106/53 L 114/53 L Pulse Oximetry Oxygen Delivery Fraction of Inspired Oxygen 06/14/24 16:00 06/14/24 18:00 06/14/24 18:15 Temperature Pulse Rate 61 63 64 Respiratory Rate 20 20 Blood Pressure 114/53 L 116/50 L Pulse Oximetry 95 Oxygen Delivery Fraction of Inspired Oxygen 06/14/24 18:00 06/14/24 20:26 06/14/24 20:30 Temperature Pulse Rate 65 62 63 Respiratory Rate 20 22 H Blood Pressure Pulse Oximetry Oxygen Delivery Fraction of Inspired Oxygen 06/14/24 20:30 06/14/24 20:30 06/14/24 20:30 Temperature Pulse Rate 63 63 63 Respiratory Rate 25 H 25 H Blood Pressure 118/54 L Pulse Oximetry Oxygen Delivery Fraction of Inspired Oxygen 06/14/24 20:00 06/14/24 20:00 06/14/24 20:00 Temperature 99 F Pulse Rate 68 63 63 Respiratory Rate 24 H 25 H Blood Pressure 104/48 L Pulse Oximetry 94 94 Oxygen Delivery Mechanical Ventilation Fraction of Inspired Oxygen 40 06/14/24 20:00 06/14/24 20:36 06/14/24 20:06 Temperature Pulse Rate 63 63 Respiratory Rate 23 H Blood Pressure Pulse Oximetry 95 Oxygen Delivery Mechanical Ventilation Fraction of Inspired Oxygen 40 40 06/14/24 22:00 06/14/24 22:00 06/14/24 22:31 Temperature Pulse Rate 63 63 63 Respiratory Rate 21 H Blood Pressure 96/48 L 110/50 L Pulse Oximetry 94 Oxygen Delivery Fraction of Inspired Oxygen 06/14/24 22:31 06/14/24 22:31 06/15/24 00:00 Temperature Pulse Rate 63 63 63 Respiratory Rate 21 H 25 H Blood Pressure Pulse Oximetry Oxygen Delivery Fraction of Inspired Oxygen 06/15/24 00:00 06/15/24 00:00 06/14/24 23:03 Temperature Pulse Rate 68 68 Respiratory Rate 25 H Blood Pressure Pulse Oximetry 94 94 Oxygen Delivery Mechanical Ventilation Mechanical Ventilation Fraction of Inspired Oxygen 40 40 40 06/15/24 02:15 06/15/24 02:10 06/15/24 02:22 Temperature Pulse Rate 65 66 65 Respiratory Rate 21 H 24 H Blood Pressure Pulse Oximetry 94 Oxygen Delivery Mechanical Ventilation Fraction of Inspired Oxygen 40 06/15/24 00:00 06/15/24 00:00 06/15/24 00:00 Temperature 98.2 F Pulse Rate 63 63 63 Respiratory Rate 20 21 H Blood Pressure 98/49 L Pulse Oximetry 93 Oxygen Delivery Fraction of Inspired Oxygen 06/15/24 00:00 06/15/24 01:15 06/15/24 01:48 Temperature Pulse Rate 63 67 63 Respiratory Rate 21 H Blood Pressure 111/55 L 106/54 L Pulse Oximetry Oxygen Delivery Fraction of Inspired Oxygen 06/15/24 01:48 06/15/24 01:48 06/15/24 01:48 Temperature Pulse Rate 63 63 63 Respiratory Rate 21 H 21 H Blood Pressure 106/54 L Pulse Oximetry Oxygen Delivery Fraction of Inspired Oxygen 06/15/24 02:00 06/15/24 02:00 06/15/24 04:00 Temperature Pulse Rate 63 63 Respiratory Rate 20 Blood Pressure 102/50 L Pulse Oximetry 94 Oxygen Delivery Fraction of Inspired Oxygen 40 06/15/24 04:00 06/15/24 04:00 06/15/24 05:05 Temperature 97.8 F Pulse Rate 65 64 73 Respiratory Rate 24 H 24 H Blood Pressure 99/62 L Pulse Oximetry 94 94 94 Oxygen Delivery Mechanical Ventilation Mechanical Ventilation Fraction of Inspired Oxygen 40 40 06/15/24 04:00 06/15/24 04:00 06/15/24 06:00 Temperature Pulse Rate 64 64 65 Respiratory Rate 24 H 24 H 22 H Blood Pressure Pulse Oximetry Oxygen Delivery Fraction of Inspired Oxygen 06/15/24 06:00 06/15/24 04:00 06/15/24 04:30 Temperature Pulse Rate 65 73 72 Respiratory Rate 22 H Blood Pressure 99/62 L 112/63 Pulse Oximetry Oxygen Delivery Fraction of Inspired Oxygen 06/15/24 05:00 06/15/24 06:00 06/15/24 06:00 Temperature Pulse Rate 73 65 65 Respiratory Rate Blood Pressure 124/51 L Pulse Oximetry Oxygen Delivery Fraction of Inspired Oxygen 06/15/24 06:00 06/15/24 04:00 06/15/24 07:18 Temperature Pulse Rate 65 62 65 Respiratory Rate 22 H 21 H Blood Pressure 104/44 L Pulse Oximetry 94 Oxygen Delivery Fraction of Inspired Oxygen 06/15/24 07:22 06/15/24 07:27 06/15/24 07:44 Temperature Pulse Rate 68 78 66 Respiratory Rate 24 H Blood Pressure 110/52 L Pulse Oximetry 95 Oxygen Delivery Mechanical Ventilation Fraction of Inspired Oxygen 40 06/15/24 07:20 06/15/24 07:20 06/15/24 08:00 Temperature 97.8 F Pulse Rate 69 67 Respiratory Rate 22 H Blood Pressure 108/51 L 99/48 L Pulse Oximetry 94 Oxygen Delivery Fraction of Inspired Oxygen 40 06/15/24 07:45 06/15/24 08:15 06/15/24 08:30 Temperature Pulse Rate 67 72 68 Respiratory Rate Blood Pressure 99/46 L 102/51 L 96/43 L Pulse Oximetry Oxygen Delivery Fraction of Inspired Oxygen 06/15/24 08:45 06/15/24 09:00 06/15/24 08:36 Temperature Pulse Rate 70 68 67 Respiratory Rate 24 H Blood Pressure 105/48 L 104/46 L Pulse Oximetry Oxygen Delivery Fraction of Inspired Oxygen 06/15/24 08:36 06/15/24 08:00 06/15/24 08:32 Temperature Pulse Rate 67 69 67 Respiratory Rate 24 H 24 H Blood Pressure 96/43 L Pulse Oximetry Oxygen Delivery Fraction of Inspired Oxygen 06/15/24 08:00 06/15/24 09:15 06/15/24 09:30 Temperature Pulse Rate 68 70 70 Respiratory Rate Blood Pressure 99/48 L 102/46 L 101/49 L Pulse Oximetry Oxygen Delivery Fraction of Inspired Oxygen 06/15/24 09:45 06/15/24 08:00 06/15/24 08:00 Temperature Pulse Rate 68 70 69 Respiratory Rate 24 H Blood Pressure 99/48 L Pulse Oximetry Oxygen Delivery Fraction of Inspired Oxygen 06/15/24 08:00 06/15/24 08:00 06/15/24 08:00 Temperature 97.7 F Pulse Rate 68 Respiratory Rate 24 H Blood Pressure 99/48 L Pulse Oximetry 93 Oxygen Delivery Mechanical Ventilation Fraction of Inspired Oxygen 40 40 06/15/24 10:00 06/15/24 10:15 06/15/24 10:30 Temperature Pulse Rate 74 71 70 Respiratory Rate Blood Pressure 99/54 L 106/53 L 100/47 L Pulse Oximetry Oxygen Delivery Fraction of Inspired Oxygen 06/15/24 10:45 06/15/24 10:00 06/15/24 10:00 Temperature Pulse Rate 77 72 72 Respiratory Rate 24 H Blood Pressure 103/50 L 99/54 L Pulse Oximetry Oxygen Delivery Fraction of Inspired Oxygen 06/15/24 10:00 06/15/24 10:00 06/15/24 10:00 Temperature Pulse Rate 72 72 72 Respiratory Rate 24 H 24 H Blood Pressure 99/54 L Pulse Oximetry 95 Oxygen Delivery Fraction of Inspired Oxygen 06/15/24 10:42 06/15/24 11:25 06/15/24 11:02 Temperature Pulse Rate 82 70 71 Respiratory Rate Blood Pressure 94/44 L 85/46 L Pulse Oximetry 94 Oxygen Delivery Mechanical Ventilation Fraction of Inspired Oxygen 40 06/15/24 11:10 06/15/24 12:00 06/15/24 12:17 Temperature 97.8 F Pulse Rate 73 70 69 Respiratory Rate 24 H Blood Pressure 96/47 L 112/50 L Pulse Oximetry 94 Oxygen Delivery Fraction of Inspired Oxygen 06/15/24 12:00 06/15/24 12:00 06/15/24 12:00 Temperature Pulse Rate 68 68 68 Respiratory Rate 24 H 24 H Blood Pressure 110/50 L Pulse Oximetry Oxygen Delivery Fraction of Inspired Oxygen 06/15/24 12:00 06/15/24 12:00 06/15/24 12:00 Temperature Pulse Rate 70 Respiratory Rate Blood Pressure Pulse Oximetry Oxygen Delivery Mechanical Ventilation Fraction of Inspired Oxygen 40 40 06/15/24 12:00 06/15/24 13:15 06/15/24 13:39 Temperature 99.5 F Pulse Rate 68 68 69 Respiratory Rate 24 H 24 H Blood Pressure 110/50 L 116/51 L Pulse Oximetry 95 Oxygen Delivery Fraction of Inspired Oxygen 06/15/24 13:52 06/15/24 13:50 Temperature Pulse Rate 70 71 Respiratory Rate 24 H Blood Pressure Pulse Oximetry 96 Oxygen Delivery Mechanical Ventilation Fraction of Inspired Oxygen 40 Intake/Output Intake/Output: Intake & Output 06/12/24 06/13/24 06/14/24 06/15/24 23:59 23:59 23:59 23:59 Intake Total 1985.4 1693.2 1649.7 861.5 Output Total 3675 4125 3110 4100 Balance -1689.6 -2431.8 -1460.3 -3238.5 Meds/Results Medications: Active Medications Generic Name Dose Route Start Last Admin Trade Name Freq PRN Reason Stop Dose Admin Acetaminophen 650 mg 06/07/24 21:53 06/07/24 22:30 Acetaminophen Elixir 325 Mg/10.15 Ml Udc PO 650 mg Q6H PRN Administration Mild Pain (1-3) or Fever Albuterol/Ipratropium 3 ml 06/05/24 11:15 06/15/24 13:51 Ipratropium 0.5 Mg/Albuterol Sulfate 2.5 Mg Ampul.Neb 3 Ml INHALATION 3 ml Q6HRT JOHN Administration Amiodarone HCl 200 mg 06/02/24 21:00 06/15/24 12:00 Amiodarone Hcl 200 Mg Tablet PO 200 mg Q12HR JOHN Administration Apixaban 5 mg 06/06/24 09:30 06/15/24 12:01 Apixaban 5 Mg Tablet PO 5 mg Q12HR JOHN Administration Dextrose 12.5 gm 06/05/24 11:46 Dextrose 50% 25 Gm/50 Ml Syringe IV PUSH PRN PRN Hypoglycemia Protocol Epoetin Shayan-epbx 4,000 units 06/15/24 19:36 06/15/24 08:09 Epoetin Shayan-Epbx 4,000 Units/Ml Vial IV PUSH 06/15/24 19:37 4,000 units ONCE ONE Administration Glucagon 1 mg 06/05/24 11:46 Glucagon For Inj 1 Mg Vial IM PRN PRN Hypoglycemia Protocol Glucose 15 gm 06/05/24 11:46 Glucose Oral Gel 15 Gm Of Glucse In 37.5 Gm Tube PO PRN PRN Hypoglycemia Protocol Norepinephrine Bitartrate 8 mg in 250 mls @ 15 mls/hr 06/05/24 00:35 06/15/24 13:15 Levophed 8 Mg/D5w 250 Ml IV CONT 8 mcg/min .[id number] JOHN 15 mls/hr Titration Protocol 8 MCG/MIN Fentanyl Citrate 2,500 mcg in 250 mls @ 5 mls/hr 06/05/24 08:35 06/15/24 12:00 Fentanyl 2,500 Mcg/Ns 250 Ml IV CONT 50 mcg/hr .Q50H JOHN 5 mls/hr Titration Protocol 50 MCG/HR Midazolam HCl 100 mg in 100 mls @ 2 mls/hr 06/05/24 08:35 06/15/24 12:00 Versed 100 Mg/Ns 100 Ml IV CONT 2 mg/hr .Q50H JOHN 2 mls/hr Titration Protocol 2 MG/HR Dextrose 1,000 mls @ 100 mls/hr 06/05/24 11:46 Dextrose 5% 1,000 Ml IVPB PRN PRN Hypoglycemia Protocol Albumin Human 50 mls @ 999 mls/hr 06/08/24 09:50 06/12/24 11:35 Albutein IVPB 07/08/24 09:49 999 mls/hr Q10M PRN Administration HYPOTENSION Insulin Aspart 3 - 6 units 06/05/24 12:00 06/15/24 12:04 Insulin Aspart (*Bkc) 100 Units/Ml SUB-Q Not Given Q6HR JOHN Protocol Midodrine 10 mg 06/05/24 09:00 06/15/24 12:00 Midodrine Hcl 10 Mg Tablet PO 10 mg TID JOHN Administration Multi-Ingred Cream/Lotion/Oil/Oint 1 applic 06/05/24 09:00 06/15/24 12:00 Mineral Oil/White Petrolatum Ointment EACH EYE 1 applic Q12HR JOHN Administration Ondansetron HCl 4 mg 06/11/24 07:47 06/11/24 13:40 Ondansetron Inj 4 Mg/2 Ml Vial IV PUSH 4 mg Q6H PRN Administration Nausea And Vomiting Pantoprazole Sodium 40 mg 06/06/24 09:00 06/15/24 12:00 Pantoprazole Sodium Iv 40 Mg Vial IV PUSH 40 mg Q12HR JOHN Administration Fluticasone/Salmeterol 2 puff 06/03/24 08:00 06/14/24 12:38 Fluticasone/Salmeterol 115-21 Mcg Inhaler 1 Puff INHALATION Not Given Q12HRT [facility] Sodium Chloride 10 ml 06/05/24 06:00 06/15/24 13:14 Central Line Flush IV PUSH Not Given Q8HR [facility] Sodium Chloride 20 ml 06/05/24 03:12 Central Line Flush IV PUSH PRN PRN after blood draws Umeclidinium [place] 1 puff 06/03/24 08:00 06/14/24 12:38 Umeclidinium [place] 62.5 Mcg Ellipta INHALATION Not Given DAILYRT [facility] Radiology Results: ITS Impressions Renal Ultrasound 06/04/24 15:06 IMPRESSION: 1. Normal kidneys. No hydronephrosis. Chest/Abdomen/Pelvis CT 06/04/24 19:12 IMPRESSION: 1. Diffuse lung disease, consistent with pulmonary edema versus pneumonia. 2. Moderate volume of ascites. Venous Doppler Study 06/07/24 17:01 IMPRESSION: 1. No deep venous thrombosis. Abdomen Ultrasound 06/10/24 14:47 IMPRESSION: Fat infiltration. Enlarged left lobe of the liver. Slightly thickened wall of the gallbladder. Trace of ascites. Otherwise, normal Limited ultrasound of the abdomen. Abdomen X-Ray 06/11/24 07:58 Impression: Limited exam. NG tube is in satisfactory position. Chest X-Ray 06/15/24 06:13 IMPRESSION: 1. Diffuse lung disease with improvement on the left, consistent with pulmonary edema versus pneumonia. 2. Cardiomegaly. Labs Labs: Laboratory Results - last 24 hr 06/14/24 06/15/24 06/15/24 17:12 05:24 12:03 WBC 16.1 H RBC 3.67 L Hgb 10.1 L Hct 32.1 L MCV 87.5 MCH 27.5 MCHC 31.5 L RDW 19.4 H Plt Count 345 MPV 10.4 Immature Gran % (Auto) 1.0 H Neut % (Auto) 83.1 H Lymph % (Auto) 7.2 L Barren % (Auto) 7.3 Eos % (Auto) 1.2 Baso % (Auto) 0.2 Lymph # (Auto) 1.16 Barren # (Auto) 1.2 H Eos # (Auto) 0.2 Baso # (Auto) 0.0 Abs Immat Gran (auto) 0.16 H Absolute Neuts (auto) 13.3 H Absolute Nucleated RBC 0.000 Nucleated RBC % 0.0 Puncture Site Right radial ABG pH 7.399 ABG pCO2 42.9 ABG pO2 67.1 L ABG PO2/FiO2 Ratio 1.68 ABG HCO3 25.9 ABG O2 Saturation 93.3 L ABG O2 Content 14.4 L ABG Base Excess 0.9 A-a Gradient 168.8 Oxyhemoglobin 92.0 Carboxyhemoglobin 0.6 Methemoglobin 0.3 Reduced Hemoglobin 7.1 H Total Hemoglobin 11.1 L O2 Delivery Device Ventilator O2 Liters/Min Not Reportable Minute Volume Not Reportable Vent Rate 20 Vent Mode Cmv FiO2 40 Tidal Volume 400 PEEP 8 Peak Inspir Pressure Not Reportable Pressure Support Not Reportable Sodium 131 L Potassium 4.6 Chloride 95 L Carbon Dioxide 27 Anion Gap 9 BUN 86 H D Creatinine 4.50 H Estim Creat Clear Calc 21 Estimated GFR 10 L Glucose 168 H POC Capillary Glucose 161 H 191 H Calcium 10.2 Phosphorus 4.8 H Magnesium 2.6 H Total Bilirubin 1.6 H AST 129 H ALT 73 H Alkaline Phosphatase 246 H Total Protein 7.0 Albumin 3.3 L
[2024-06-15 16:55] LABS: Glucose Point of Care 144 mg/dl (65-105)
[2024-06-15] MEDS: NOREPINEPHRINE 8 MG/D5W 250 ML 8 MG/250 ML BAG 9.38 MG IV CONT (20:19)
--- NOTE | 2024-06-15 21:08 | PC.NURSE ---
returned call to Jose Raul RAMIREZ/sister - update provided.
[2024-06-16] VITALS (68 sets, daily range): BP systolic 98–127; BP diastolic 43–60; PULSE 60–79; RESP 18–31; TEMP 0–37.7; O2SAT 91–98
[2024-06-16 00:03] LABS: Glucose Point of Care 134 mg/dl (65-105)
[2024-06-16] MEDS: CENTRAL LINE FLUSH 10 ML IV PUSH ×4 (00:36→22:26)
[2024-06-16 00:43] LABS: Glucose Point of Care 137 mg/dl (65-105)
[2024-06-16 05:36] LABS: Alveolar/Arterial O2 Gradient 159.9 mmHg; Base Excess ABG 2.6 mEq/l (+/-2.0); Carboxyhemoglobin 0.6 % THb (0-2.0); Fractional Inspired Oxygen 40 %; HCO3 ABG 28.2 mEq/l (22.0-26.0); Methemoglobin ABG 0.1 %THb (0-1.5); Oxygen Content ABG 14.9 %vol (16.0-22.0); Oxygen Saturation ABG 93.9 % (95.0-100.0); Oxyhemoglobin 93.2 % THb (90.0-100.0); PCO2 ABG 47.7 mmHg (35.0-45.0); PO2 ABG 70.4 mmHg (80.0-100.0); PO2 FiO2 Ratio Arterial Blood 1.76 %; Reduced Hemoglobin 6.1 %THb (0-5.0); Total Hemoglobin 11.3 g/dL (12.0-18.0); pH ABG 7.389 (7.350-7.450)
[2024-06-16 05:53] LABS: Arterial Blood Gas Vent Mode CMV; Arterial Blood Gas Ventilator rate 20 /MIN; Device VENTILATOR; Modified Allen's Test Pass; Site Drawn RIGHT RADIAL
[2024-06-16 05:54] LABS: Arterial Blood Gas PEEP 8 cmH2O; Arterial Blood Gas Tidal Volume 400 ml
[2024-06-16 05:57] LABS: Glucose Point of Care 184 mg/dl (65-105)
[2024-06-16 06:00] LABS: Basophils Percent Auto 0.2 % (0.2-1.2); Eosinophils Absolute Auto 0.3 K/mm3 (0-0.3); Eosinophils Percent Auto 1.7 % (0-4.4); Hemoglobin 10.2 g/dL (12.0-15.0); Immature Granulocyte Absolute 0.16 K/mm3 (0.00-0.031); Lymphocytes Absolute Auto 1.11 K/mm3 (0.9-3.2); Lymphocytes Percent Auto 7.1 % (18.3-44.2); Mean Corpuscular HGB Conc 30.9 g/dl (32-36); Mean Corpuscular Hemoglobin 27.3 pg (26-34); Mean Corpuscular Volume 88.2 fl (80-100); Mean Platelet Volume 9.9 fl (7.4-10.4); Monocytes Absolute Auto 1.4 K/mm3 (0.1-0.6); Monocytes Percent Auto 8.7 % (2.6-8.5); Neutrophils Absolute Auto 12.7 K/mm3 (1.3-6.7); Neutrophils Percent Auto 81.3 % (45.5-73.1); Platelet Count Result 329 k/mm3 (150-375); Red Blood Count 3.74 M/mm3 (4.2-5.4); Red Cell Distribution Width 19.4 % (11.5-14.5); White Blood Count 15.7 K/mm3 (4.5-10.0)
[2024-06-16 06:12] LABS: Alanine Aminotransferase 78 U/L (6-35); Albumin Level 3.3 g/dL (3.5-5.1); Alkaline Phosphatase 281 U/L (38-126); Anion Gap 13 mmol/L (4-12); Aspartate Amino Transferase 142 U/L (14-36); Bilirubin,Total 1.5 mg/dL (0.2-1.3); Blood Urea Nitrogen 63 mg/dL (7-17); Calcium 9.9 mg/dL (8.4-10.2); Carbon Dioxide 26 mmol/L (22-30); Chloride 96 mmol/L (98-107); Estimated CRCL calculation 26 ml/min; Estimated Glomerular Filt Rate 13; Glucose 177 mg/dL (65-110); Magnesium 2.4 mg/dL (1.6-2.3); Phosphorus 3.9 mg/dL (2.5-4.5); Sodium 135 mmol/L (137-145)
[2024-06-16] MEDS: IPRATROPIUM 0.5 MG/ALBUTEROL SULFATE 2.5 MG AMPUL.NEB 3 ML INHALATION ×3 (07:28→20:03)
--- NOTE | 2024-06-16 09:07 | P.PNINT_ITS ---
Progress Note: A&P Assessment and Plan (1) Acute respiratory failure: Code(s): J96.00 - Acute respiratory failure, unspecified whether with hypoxia or hypercapnia Status: Acute Assessment and Plan: Chest x-ray bilateral diffuse pulmonary infiltrates/pulmonary edema. Patient was placed on BiPAP. ABG showed hypercapnic and hypoxemic respiratory failure. Etiology pulmonary edema, pneumonia, ARDS -06/05: patient intubated for impending respiratory failure. Intubation was slightly challenging secondary to body habitus, small mouth, large tongue, redundant tissue in the hypopharynx and anterior vocal cords requiring cricoid pressure and use of glide scope. -continue CMV mode of ventilation, currently on PEEP down to 8, 40% FiO2, respiratory rate to 20 -chest x-ray reviewed and shows improvement although still has diffuse bilateral infiltrates although there has been improvement -continue bronchodilators - fentanyl and Versed infusion for analgosedation, will maintain RASS of -2 -patient has significant volume overload and need additional fluid removed patient is being dialyzed again today. I will do a sedation holiday post dialysis today. (2) Septic shock: Code(s): A41.9 - Sepsis, unspecified organism; R65.21 - Severe sepsis with septic shock Status: Acute Assessment and Plan: Septic shock could be related to UTI, pneumonia -patient was hypotensive in the intermediate Unit and was transferred to the ICU which she received fluids, albumin -continue norepinephrine, will maintain MAP > 65 mmHg or SBP > 100 mmHg adequate end organ perfusion -off vasopressin since 06/06/2024 evening -off vancomycin -c completed cefepime for a total of 7 days -fluconazole was discontinued given her renal dysfunction -off stress dose steroids -continue midodrine 06/05/2024: Echocardiogram Summary 1. Left ventricular chamber dimension is normal. 2. Left ventricular systolic function is normal, estimated at 65-70%. 3. The left ventricular diastolic function is grade I diastolic dysfunction. 4. Right ventricular chamber dimension is moderately enlarged. 5. Right ventricular systolic function is normal. 6. Left atrial chamber dimension is moderately enlarged. 7. Right atrial chamber dimension is moderately enlarged. 8. There is mild to moderate tricuspid valve regurgitation. (3) JOVI (acute kidney injury): Code(s): N17.9 - Acute kidney failure, unspecified Status: Acute Assessment and Plan: Patient with acute kidney injury, this morning her creatinine is 4.60 (creatinine on admission on 06/02/2024 was 2.10 and her creatinine on 04/26/2024 was 0.90) -etiology for acute kidney injury could be multifactorial, hypotension, shock, sepsis, UTI/pneumonia, hypoxia,? SLE flare, CHF, -CK levels are within normal limits -urine eosinophils were negative -urine electrolytes showed prerenal picture, patient seems to be volume overloaded -was given IV fluids and albumin overnight, will hold fluids for now -discussed with retail department supervisor at [facility], feels that the patient is unstable to be transferred at this time for CRRT, recommended conventional dialysis. -discussed with stereo equipment repairer at [facility], agrees to conventional dialysis at this time -06/05: dialysis catheter was placed in the right IJ and exchange for the centr al line -06/05: Initiated dialysis, with 3000 mL of fluid removal -06/06: Dialysis with 3000 mL in fluid removal -06/07: Dialysis with 3700 mL in fluid removal -06/08: Dialysis with 2900 mL in fluid removal -06/09: Dialysis with 3000 mL in fluid removal -06/10: No dialysis -06/12: Patient was dialyzed and 3.1 P L fluid was removed -06/13 getting dialyzed again today. 4 L removed - 06/14: 3 L removed - 06/15: 4 L fluid was removed - 06/16: Patient getting dialyzed again today. (4) Pulmonary edema: Code(s): J81.1 - Chronic pulmonary edema Status: Acute Assessment and Plan: Pulmonary edema likely related to acute kidney injury, ARDS, -did not respond to Bumex -continue fluid removal with dialysis (5) Type 2 diabetes mellitus: Code(s): E11.9 - Type 2 diabetes mellitus without complications Status: Acute Assessment and Plan: SSI and accucheks HbA1C is 5.7 this admission (6) Afib: Code(s): I48.91 - Unspecified atrial fibrillation Status: Acute Assessment and Plan: continue amiodarone and Eliquis - flecainide was stopped (7) SLE (systemic lupus erythematosus): Code(s): M32.9 - Systemic lupus erythematosus, unspecified Status: Acute Assessment and Plan: Off steroids (8) Liver cirrhosis secondary to HOFFMANN: Code(s): K75.81 - Nonalcoholic steatohepatitis (HOFFMANN); K74.60 - Unspecified cirrhosis of liver Status: Acute Assessment and Plan: Continues to have mild elevation in LFTs and bilirubin which is stable 06/10/2024: RUQ ultrasound: Fat infiltration. Enlarged left lobe of the liver. Slightly thickened wall of the gallbladder. Trace of ascites. Otherwise, normal Limited ultrasound of the abdomen. -06/10/2024: Hepatitis panel is negative -continue to monitor (9) GERD (gastroesophageal reflux disease): Code(s): K21.9 - Gastro-esophageal reflux disease without esophagitis Status: Acute Assessment and Plan: Continue Protonix (10) Morbid obesity with BMI of 50.0-59.9, adult: Code(s): E66.01 - Morbid (severe) obesity due to excess calories; Z68.43 - Body mass index [BMI] 50.0-59.9, adult Status: Acute Assessment and Plan: Once extubated she will need lifestyle changes Plan DVT prophylaxis: Eliquis Stress ulcer prophylaxis: Protonix Nutrition: Tube feeds at goal and tolerating Code Status: Full code Critical Care Time Spent: 30 minutes Due to a high probability of clinically significant, life threatening deterioration, the patient required my highest level of preparedness to intervene emergently and I personally spent this critical care time directly and personally managing the patient. This critical care time included obtaining a history; examining the patient; pulse oximetry; ordering and review of studies; arranging urgent treatment with development of a management plan; evaluation of patient's response to treatment; frequent reassessment; and discussions with other providers. It was exclusive of separately billable procedures and treating other patients and teaching time. Please see Assessment and Plan section and the rest of the note for further information on patient assessment and treatment This dictation may have been done utilizing a voice recognition system. Attempts have been made to correct errors. However, there may be uncorrected grammatical, spelling, and recognitions errors present. Subjective Date/time seen: 06/16/24 Overnight events reviewed. Afebrile Continues to be on mechanical ventilation 8 of PEEP 40% FiO2 Continues to be on Levophed Continues to be sedated with Versed and fentanyl Tolerating tube feeds Other Vitals acceptable Dialysis is being initiated this time She nodes are head yes to pain but denies any shortness of breath Interval history: Reason for consult: Acute respiratory failure, septic shock, acute kidney injury, pulmonary edema 06/05: Intubated Review of Systems Review of Systems: ROS unobtainable: Yes unobtainable due to endotracheal tube, unobtainable due to medical condition and unobtainable due to mental status Exam Narrative: General: Morbidly obese female currently intubated and sedated in no acute distress HEENT:? Pupils equal and reactive bilaterally, sclera is clear, ETT in place Neck:, short and thick neck, Respiratory:? Decreased and coarse breath sounds bilaterally, no wheezing, Cardiac:? S1-S2 is normal, regular rate and rhythm Abdomen:? Morbid obesity, soft, hypoactive bowel sounds tenderness in right upper quadrant Extremities:? Bilateral lower extremity pitting edema improving, wrinkling of skin on the feet are noted, palpable pedal pulses. Right calf erythema has improved, Neuro:? Patient is intubated, sedated, opens her eyes, follows simple commands in all extremities and nods to questions Skin:? Erythema in the intertriginous region and under her pannus, skin is dry and warm Psych:? Unable to assess at this time Objective Data Vital Signs Vital Signs: Vital Signs - 24 hr 06/15/24 09:15 06/15/24 09:30 06/15/24 09:45 Temperature Pulse Rate 70 70 68 Respiratory Rate Blood Pressure 102/46 L 101/49 L 99/48 L Pulse Oximetry Oxygen Delivery Fraction of Inspired Oxygen 06/15/24 10:00 06/15/24 10:15 06/15/24 10:30 Temperature Pulse Rate 74 71 70 Respiratory Rate Blood Pressure 99/54 L 106/53 L 100/47 L Pulse Oximetry Oxygen Delivery Fraction of Inspired Oxygen 06/15/24 10:45 06/15/24 10:00 06/15/24 10:00 Temperature Pulse Rate 77 72 72 Respiratory Rate 24 H Blood Pressure 103/50 L 99/54 L Pulse Oximetry Oxygen Delivery Fraction of Inspired Oxygen 06/15/24 10:00 06/15/24 10:00 06/15/24 10:00 Temperature Pulse Rate 72 72 72 Respiratory Rate 24 H 24 H Blood Pressure 99/54 L Pulse Oximetry 95 Oxygen Delivery Fraction of Inspired Oxygen 06/15/24 10:42 06/15/24 11:25 06/15/24 11:02 Temperature Pulse Rate 82 70 71 Respiratory Rate Blood Pressure 94/44 L 85/46 L Pulse Oximetry 94 Oxygen Delivery Mechanical Ventilation Fraction of Inspired Oxygen 40 06/15/24 11:10 06/15/24 12:00 06/15/24 12:17 Temperature 36.6 C Pulse Rate 73 70 69 Respiratory Rate 24 H Blood Pressure 96/47 L 112/50 L Pulse Oximetry 94 Oxygen Delivery Fraction of Inspired Oxygen 06/15/24 12:00 06/15/24 12:00 06/15/24 12:00 Temperature Pulse Rate 68 68 68 Respiratory Rate 24 H 24 H Blood Pressure 110/50 L Pulse Oximetry Oxygen Delivery Fraction of Inspired Oxygen 06/15/24 12:00 06/15/24 12:00 06/15/24 12:00 Temperature Pulse Rate 70 Respiratory Rate Blood Pressure Pulse Oximetry Oxygen Delivery Mechanical Ventilation Fraction of Inspired Oxygen 40 40 06/15/24 12:00 06/15/24 13:15 06/15/24 13:39 Temperature 37.5 C Pulse Rate 68 68 69 Respiratory Rate 24 H 24 H Blood Pressure 110/50 L 116/51 L Pulse Oximetry 95 Oxygen Delivery Fraction of Inspired Oxygen 06/15/24 13:52 06/15/24 13:50 06/15/24 14:00 Temperature Pulse Rate 70 71 70 Respiratory Rate 24 H Blood Pressure 102/41 L Pulse Oximetry 96 Oxygen Delivery Mechanical Ventilation Fraction of Inspired Oxygen 40 06/15/24 14:00 06/15/24 14:00 06/15/24 14:00 Temperature Pulse Rate 70 70 70 Respiratory Rate 24 H 24 H Blood Pressure Pulse Oximetry Oxygen Delivery Fraction of Inspired Oxygen 06/15/24 14:00 06/15/24 16:20 06/15/24 16:00 Temperature Pulse Rate 70 67 66 Respiratory Rate 24 H Blood Pressure 102/41 L 112/52 L Pulse Oximetry 95 98 Oxygen Delivery Mechanical Ventilation Fraction of Inspired Oxygen 40 06/15/24 16:00 06/15/24 16:00 06/15/24 16:00 Temperature Pulse Rate 66 66 66 Respiratory Rate 24 H 24 H Blood Pressure Pulse Oximetry Oxygen Delivery Fraction of Inspired Oxygen 06/15/24 16:00 06/15/24 16:00 06/15/24 16:00 Temperature 37.1 C Pulse Rate 66 Respiratory Rate 24 H Blood Pressure 112/52 L Pulse Oximetry 95 Oxygen Delivery Mechanical Ventilation Fraction of Inspired Oxygen 40 40 06/15/24 17:17 06/15/24 18:00 06/15/24 18:00 Temperature Pulse Rate 74 64 64 Respiratory Rate 20 Blood Pressure 114/54 L 102/51 L Pulse Oximetry Oxygen Delivery Fraction of Inspired Oxygen 06/15/24 18:00 06/15/24 18:00 06/15/24 18:00 Temperature Pulse Rate 64 64 64 Respiratory Rate 24 H 24 H Blood Pressure 102/51 L Pulse Oximetry 97 Oxygen Delivery Fraction of Inspired Oxygen 06/15/24 18:30 06/15/24 19:30 06/15/24 20:10 Temperature 37.1 C Pulse Rate 67 67 64 Respiratory Rate 24 H Blood Pressure 117/54 L 103/45 L Pulse Oximetry 98 98 Oxygen Delivery Mechanical Ventilation Fraction of Inspired Oxygen 40 06/15/24 20:00 06/15/24 20:09 06/15/24 20:19 Temperature Pulse Rate 64 69 69 Respiratory Rate Blood Pressure 103/45 L 110/52 L 110/52 L Pulse Oximetry Oxygen Delivery Fraction of Inspired Oxygen 06/15/24 22:00 06/15/24 22:00 06/15/24 22:06 Temperature 37.0 C Pulse Rate 63 67 66 Respiratory Rate 20 Blood Pressure 109/50 L 108/50 L Pulse Oximetry 98 Oxygen Delivery Fraction of Inspired Oxygen 06/15/24 20:00 06/15/24 20:00 06/16/24 00:06 Temperature 37.1 C Pulse Rate 63 60 Respiratory Rate 20 Blood Pressure 101/45 L Pulse Oximetry 95 Oxygen Delivery Fraction of Inspired Oxygen 40 06/15/24 23:10 06/16/24 00:00 06/16/24 00:48 Temperature Pulse Rate 63 62 61 Respiratory Rate Blood Pressure 101/45 L 98/44 L Pulse Oximetry 100 Oxygen Delivery Mechanical Ventilation Fraction of Inspired Oxygen 40 06/15/24 20:00 06/15/24 22:00 06/16/24 02:05 Temperature Pulse Rate 63 62 61 Respiratory Rate 21 H Blood Pressure Pulse Oximetry 99 93 Oxygen Delivery Mechanical Ventilation Mechanical Ventilation Fraction of Inspired Oxygen 40 40 06/16/24 02:00 06/16/24 01:00 06/16/24 01:15 Temperature 37.0 C Pulse Rate 60 62 61 Respiratory Rate 20 Blood Pressure 98/44 L 106/47 L 107/48 L Pulse Oximetry 97 Oxygen Delivery Fraction of Inspired Oxygen 06/16/24 02:00 06/16/24 02:45 06/16/24 00:00 Temperature Pulse Rate 61 60 62 Respiratory Rate Blood Pressure 106/48 L 99/43 L Pulse Oximetry Oxygen Delivery Fraction of Inspired Oxygen 06/15/24 20:00 06/15/24 22:00 06/16/24 00:00 Temperature Pulse Rate 64 62 62 Respiratory Rate 20 20 20 Blood Pressure Pulse Oximetry Oxygen Delivery Fraction of Inspired Oxygen 06/16/24 02:00 06/15/24 20:00 06/15/24 22:00 Temperature Pulse Rate 61 64 62 Respiratory Rate 20 20 20 Blood Pressure Pulse Oximetry Oxygen Delivery Fraction of Inspired Oxygen 06/16/24 00:00 06/16/24 02:00 06/16/24 04:00 Temperature 36.8 C Pulse Rate 62 61 66 Respiratory Rate 20 20 18 Blood Pressure 122/57 L Pulse Oximetry 96 Oxygen Delivery Fraction of Inspired Oxygen 06/16/24 02:00 06/16/24 04:00 06/16/24 04:00 Temperature Pulse Rate 61 66 66 Respiratory Rate Blood Pressure 122/57 L Pulse Oximetry Oxygen Delivery Fraction of Inspired Oxygen 06/16/24 04:00 06/16/24 04:00 06/16/24 05:54 Temperature Pulse Rate 66 66 65 Respiratory Rate 20 20 Blood Pressure Pulse Oximetry 98 Oxygen Delivery Mechanical Ventilation Fraction of Inspired Oxygen 40 06/16/24 06:04 06/16/24 07:33 06/16/24 07:35 Temperature 36.8 C Pulse Rate 64 73 73 Respiratory Rate 21 H 21 H Blood Pressure 106/53 L Pulse Oximetry 95 94 Oxygen Delivery Mechanical Ventilation Fraction of Inspired Oxygen 40 06/16/24 00:00 06/16/24 00:00 06/16/24 04:00 Temperature Pulse Rate Respiratory Rate Blood Pressure Pulse Oximetry Oxygen Delivery Mechanical Ventilation Fraction of Inspired Oxygen 40 40 40 06/16/24 04:00 06/16/24 06:00 06/16/24 06:00 Temperature Pulse Rate 65 65 Respiratory Rate Blood Pressure 106/53 L Pulse Oximetry Oxygen Delivery Mechanical Ventilation Fraction of Inspired Oxygen 40 06/16/24 03:00 06/16/24 03:15 06/16/24 00:45 Temperature Pulse Rate 60 60 61 Respiratory Rate 20 Blood Pressure 106/48 L 110/48 L 98/44 L Pulse Oximetry 97 Oxygen Delivery Fraction of Inspired Oxygen 06/16/24 06:00 06/16/24 06:00 06/16/24 01:00 Temperature Pulse Rate 65 65 61 Respiratory Rate 20 20 20 Blood Pressure 106/47 L Pulse Oximetry 95 Oxygen Delivery Fraction of Inspired Oxygen 06/16/24 01:15 06/16/24 01:30 06/16/24 01:45 Temperature Pulse Rate 60 60 61 Respiratory Rate 20 20 20 Blood Pressure 107/48 L 102/43 L 108/49 L Pulse Oximetry 95 94 91 Oxygen Delivery Fraction of Inspired Oxygen 06/16/24 02:45 06/16/24 03:00 06/16/24 03:15 Temperature Pulse Rate 60 60 60 Respiratory Rate 20 20 20 Blood Pressure 99/43 L 106/48 L 110/48 L Pulse Oximetry 94 94 94 Oxygen Delivery Fraction of Inspired Oxygen 06/16/24 03:30 06/16/24 03:45 06/16/24 08:09 Temperature Pulse Rate 60 62 Respiratory Rate 20 20 Blood Pressure 104/46 L 112/52 L Pulse Oximetry 94 94 Oxygen Delivery Fraction of Inspired Oxygen 40 06/16/24 08:09 06/16/24 08:25 06/16/24 08:30 Temperature 36.4 C Pulse Rate 78 74 74 Respiratory Rate 21 H Blood Pressure 116/53 L 127/56 L 116/60 Pulse Oximetry 96 Oxygen Delivery Fraction of Inspired Oxygen 06/16/24 08:45 Temperature Pulse Rate 71 Respiratory Rate Blood Pressure 117/53 L Pulse Oximetry Oxygen Delivery Fraction of Inspired Oxygen Intake/Output Intake/Output: Intake & Output 06/13/24 06/14/24 06/15/24 06/16/24 23:59 23:59 23:59 23:59 Intake Total 1693.2 1649.7 2649.6 162.7 Output Total 4125 3110 4200 100 Balance -2431.8 -1460.3 -1550.4 62.7 Meds/Results Medications: Active Medications Generic Name Dose Route Start Last Admin Trade Name Freq PRN Reason Stop Dose Admin Acetaminophen 650 mg 06/07/24 21:53 06/07/24 22:30 Acetaminophen Elixir 325 Mg/10.15 Ml Udc PO 650 mg Q6H PRN Administration Mild Pain (1-3) or Fever Albuterol/Ipratropium 3 ml 06/05/24 11:15 06/16/24 07:28 Ipratropium 0.5 Mg/Albuterol Sulfate 2.5 Mg Ampul.Neb 3 Ml INHALATION 3 ml Q6HRT JOHN Administration Amiodarone HCl 200 mg 06/02/24 21:00 06/15/24 22:00 Amiodarone Hcl 200 Mg Tablet PO 200 mg Q12HR JOHN Administration Apixaban 5 mg 06/06/24 09:30 06/15/24 22:00 Apixaban 5 Mg Tablet PO 5 mg Q12HR JOHN Administration Dextrose 12.5 gm 06/05/24 11:46 Dextrose 50% 25 Gm/50 Ml Syringe IV PUSH PRN PRN Hypoglycemia Protocol Glucagon 1 mg 06/05/24 11:46 Glucagon For Inj 1 Mg Vial IM PRN PRN Hypoglycemia Protocol Glucose 15 gm 06/05/24 11:46 Glucose Oral Gel 15 Gm Of Glucse In 37.5 Gm Tube PO PRN PRN Hypoglycemia Protocol Norepinephrine Bitartrate 8 mg in 250 mls @ 16.875 mls/hr 06/05/24 00:35 06/16/24 06:00 Levophed 8 Mg/D5w 250 Ml IV CONT 9 mcg/min .[id number] JOHN 16.88 mls/hr Titration Protocol 9 MCG/MIN Fentanyl Citrate 2,500 mcg in 250 mls @ 5 mls/hr 06/05/24 08:35 06/16/24 06:00 Fentanyl 2,500 Mcg/Ns 250 Ml IV CONT 50 mcg/hr .Q50H JOHN 5 mls/hr Titration Protocol 50 MCG/HR Midazolam HCl 100 mg in 100 mls @ 2 mls/hr 06/05/24 08:35 06/16/24 06:00 Versed 100 Mg/Ns 100 Ml IV CONT 2 mg/hr .Q50H JOHN 2 mls/hr Titration Protocol 2 MG/HR Dextrose 1,000 mls @ 100 mls/hr 06/05/24 11:46 Dextrose 5% 1,000 Ml IVPB PRN PRN Hypoglycemia Protocol Albumin Human 50 mls @ 999 mls/hr 06/08/24 09:50 06/12/24 11:39 Albutein IVPB 07/08/24 09:49 Infused Q10M PRN Infusion HYPOTENSION Insulin Aspart 3 - 6 units 06/05/24 12:00 06/16/24 07:02 Insulin Aspart (*Bkc) 100 Units/Ml SUB-Q Not Given Q6HR [facility] Protocol Midodrine 10 mg 06/05/24 09:00 06/15/24 16:53 Midodrine Hcl 10 Mg Tablet PO 10 mg TID JOHN Administration Multi-Ingred Cream/Lotion/Oil/Oint 1 applic 06/05/24 09:00 06/15/24 22:00 Mineral Oil/White Petrolatum Ointment EACH EYE 1 applic Q12HR JOHN Administration Ondansetron HCl 4 mg 06/11/24 07:47 06/11/24 13:40 Ondansetron Inj 4 Mg/2 Ml Vial IV PUSH 4 mg Q6H PRN Administration Nausea And Vomiting Pantoprazole Sodium 40 mg 06/06/24 09:00 06/15/24 22:00 Pantoprazole Sodium Iv 40 Mg Vial IV PUSH 40 mg Q12HR JOHN Administration Fluticasone/Salmeterol 2 puff 06/03/24 08:00 06/14/24 12:38 Fluticasone/Salmeterol 115-21 Mcg Inhaler 1 Puff INHALATION Not Given Q12HRT JOHN Sodium Chloride 10 ml 06/05/24 06:00 06/16/24 07:03 Central Line Flush IV PUSH 10 ml Q8HR JOHN Administration Sodium Chloride 20 ml 06/05/24 03:12 Central Line Flush IV PUSH PRN PRN after blood draws Umeclidinium [place] 1 puff 06/03/24 08:00 06/14/24 12:38 Umeclidinium [place] 62.5 Mcg Ellipta INHALATION Not Given DAILYRT [facility] Radiology Results: ITS Impressions Renal Ultrasound 06/04/24 15:06 IMPRESSION: 1. Normal kidneys. No hydronephrosis. Chest/Abdomen/Pelvis CT 06/04/24 19:12 IMPRESSION: 1. Diffuse lung disease, consistent with pulmonary edema versus pneumonia. 2. Moderate volume of ascites. Venous Doppler Study 06/07/24 17:01 IMPRESSION: 1. No deep venous thrombosis. Abdomen Ultrasound 06/10/24 14:47 IMPRESSION: Fat infiltration. Enlarged left lobe of the liver. Slightly thickened wall of the gallbladder. Trace of ascites. Otherwise, normal Limited ultrasound of the abdomen. Abdomen X-Ray 06/11/24 07:58 Impression: Limited exam. NG tube is in satisfactory position. Chest X-Ray 06/16/24 06:12 IMPRESSION: 1. Stable diffuse lung disease, consistent with pulmonary edema versus pneumonia. 2. Cardiomegaly. Labs Labs: Laboratory Results - last 24 hr 06/15/24 06/15/24 06/15/24 12:03 16:52 23:54 WBC RBC Hgb Hct MCV MCH MCHC RDW Plt Count MPV Immature Gran % (Auto) Neut % (Auto) Lymph % (Auto) [place]ansom % (Auto) Eos % (Auto) Baso % (Auto) Lymph # (Auto) [place] # (Auto) Eos # (Auto) Baso # (Auto) Abs Immat Gran (auto) Absolute Neuts (auto) Absolute Nucleated RBC Nucleated RBC % Puncture Site ABG pH ABG pCO2 ABG pO2 ABG PO2/FiO2 Ratio ABG HCO3 ABG O2 Saturation ABG O2 Content ABG Base Excess A-a Gradient Oxyhemoglobin Carboxyhemoglobin Methemoglobin Reduced Hemoglobin Total Hemoglobin O2 Delivery Device O2 Liters/Min Minute Volume Vent Rate Vent Mode FiO2 Tidal Volume PEEP Peak Inspir Pressure Pressure Support Sodium Potassium Chloride Carbon Dioxide Anion Gap BUN Creatinine Estim Creat Clear Calc Estimated GFR Glucose POC Capillary Glucose 191 H 144 H 134 H Calcium Phosphorus Magnesium Total Bilirubin AST ALT Alkaline Phosphatase Total Protein Albumin 06/16/24 06/16/24 06/16/24 00:31 05:16 05:53 WBC 15.7 H RBC 3.74 L Hgb 10.2 L Hct 33.0 L MCV 88.2 MCH 27.3 MCHC 30.9 L RDW 19.4 H Plt Count 329 MPV 9.9 Immature Gran % (Auto) 1.0 H Neut % (Auto) 81.3 H Lymph % (Auto) 7.1 L Ransom % (Auto) 8.7 H Eos % (Auto) 1.7 Baso % (Auto) 0.2 Lymph # (Auto) 1.11 Ransom # (Auto) 1.4 H Eos # (Auto) 0.3 Baso # (Auto) 0.0 Abs Immat Gran (auto) 0.16 H Absolute Neuts (auto) 12.7 H Absolute Nucleated RBC 0.000 Nucleated RBC % 0.0 Puncture Site Right radial ABG pH 7.389 ABG pCO2 47.7 H ABG pO2 70.4 L ABG PO2/FiO2 Ratio 1.76 ABG HCO3 28.2 H ABG O2 Saturation 93.9 L ABG O2 Content 14.9 L ABG Base Excess 2.6 A-a Gradient 159.9 Oxyhemoglobin 93.2 Carboxyhemoglobin 0.6 Methemoglobin 0.1 Reduced Hemoglobin 6.1 H Total Hemoglobin 11.3 L O2 Delivery Device Ventilator O2 Liters/Min Not Reportable Minute Volume Not Reportable Vent Rate 20 Vent Mode Cmv FiO2 40 Tidal Volume 400 PEEP 8 Peak Inspir Pressure Not Reportable Pressure Support Not Reportable Sodium 135 L Potassium 4.0 Chloride 96 L Carbon Dioxide 26 Anion Gap 13 H BUN 63 H D Creatinine 3.60 H Estim Creat Clear Calc 26 Estimated GFR 13 L Glucose 177 H POC Capillary Glucose 137 H Calcium 9.9 Phosphorus 3.9 Magnesium 2.4 H Total Bilirubin 1.5 H AST 142 H ALT 78 H Alkaline Phosphatase 281 H Total Protein 7.0 Albumin 3.3 L 06/16/24 05:55 WBC RBC Hgb Hct MCV MCH MCHC RDW Plt Count MPV Immature Gran % (Auto) Neut % (Auto) Lymph % (Auto) [place] % (Auto) Eos % (Auto) Baso % (Auto) Lymph # (Auto) [place] # (Auto) Eos # (Auto) Baso # (Auto) Abs Immat Gran (auto) Absolute Neuts (auto) Absolute Nucleated RBC Nucleated RBC % Puncture Site ABG pH ABG pCO2 ABG pO2 ABG PO2/FiO2 Ratio ABG HCO3 ABG O2 Saturation ABG O2 Content ABG Base Excess A-a Gradient Oxyhemoglobin Carboxyhemoglobin Methemoglobin Reduced Hemoglobin Total Hemoglobin O2 Delivery Device O2 Liters/Min Minute Volume Vent Rate Vent Mode FiO2 Tidal Volume PEEP Peak Inspir Pressure Pressure Support Sodium Potassium Chloride Carbon Dioxide Anion Gap BUN Creatinine Estim Creat Clear Calc Estimated GFR Glucose POC Capillary Glucose 184 H Calcium Phosphorus Magnesium Total Bilirubin AST ALT Alkaline Phosphatase Total Protein Albumin Quality VTE Prophylaxis VTE prophylaxis: pharmacologic ordered
--- NOTE | 2024-06-16 09:41 | P.PNNP_ITS ---
Progress Note: A&P Assessment and Plan (1) JOVI (acute kidney injury): Code(s): N17.9 - Acute kidney failure, unspecified Status: Acute Assessment and Plan: * normal creatinine ~ 1 month ago * admitted with a creatinine of 2.1mg/dl with ongoing worsening noted * evaluation to date noted: * renal ultrasound negative for obstruction * urine eosinophils negative * urine electrolytes pre-renal (in spite of evidence of volume overload) * CPK low * moderate proteinuria (~ 600mg) * UA with blood and protein (and negative urine culture) * complements normal (arguing against lupus flare) * * due to multifactorial ATN: * hemodynamic instability/shock * sepsis * infection (UTI +/- pneumonia) -- although culture negative to date * hypoxia * SLE flare (?) With the hemodynamic issues plus sepsis it is less likely t hat this is a lupus flare however even if there was a flare we could not treat it because of the infection. * has been dialysis dependent since 06/05 * daily dialysis alternating with DUF (except Sundays) to facilitate euvolemia * DUF today. * Will give her a break tomorrow. * Follow urine output and if she needs it she will get another treatment on Tuesday. (2) Acute respiratory failure: Code(s): J96.00 - Acute respiratory failure, unspecified whether with hypoxia or hypercapnia Status: Acute Assessment and Plan: * intubated on 06/05 for impending respiratory failure * failed BiPAP therapy * ABG with noted hypercapnea and hypoxia * secondary to pulmonary edema, diffuse bilateral infiltrates and ARDS * on bronchodilators * weaned off steroids * continue daily dialyis/dry ultrafiltration for fluid removal * almost 16L negative since dialysis initiated.... * decreasing PEEP and FIO2 requirement noted (3) Septic shock: Code(s): A41.9 - Sepsis, unspecified organism; R65.21 - Severe sepsis with septic shock Status: Acute Assessment and Plan: * initially thought to be secondary to UTI and pneumonia * remains on low dose levophed therapy to maintain MAP * Echo results noted * continue midodrine * culture data noted: * blood/urine cultures from 06/02 negative * blood culture 06/06 with E. coli and Staph epidermidis * urine culture on 06/06 negative. * blood culture on 06/08 negative * off all antibiotics at this time (since 06/12) * wean levophed as tolerated * follow trend of hemodynamics (4) Pulmonary edema: Code(s): J81.1 - Chronic pulmonary edema Status: Acute Assessment and Plan: * contributing to #2 * secondary to JOVI/ARF but ARDS an issues as well * failed diuretic therapy * HD alternating with DUF for daily fluid removal * On 40% oxygen with 8 of PEEP. (5) Afib: Code(s): I48.91 - Unspecified atrial fibrillation Status: Acute Assessment and Plan: * Heart rate in the 70s * on amiodarone and Eliquis (6) Liver cirrhosis secondary to HOFFMANN: Code(s): K75.81 - Nonalcoholic steatohepatitis (HOFFMANN); K74.60 - Unspecified cirrhosis of liver Status: Acute Assessment and Plan: * known history * normal liver by recent imaging * noted elevations in AST/ALT that have been up and down * fluctuating LFTS thought to be more related to congestion/volume overload * continue to follow (7) Type 2 diabetes mellitus: Code(s): E11.9 - Type 2 diabetes mellitus without complications Status: Acute Assessment and Plan: * follow accu-cheks * glycemic control per school psychologist/hospitalist Subjective Date/time seen: 06/16/24 09:41 Interval history: Patient is sedated and intubated. She looks comfortable dialysis was setting up to do her treatment when I saw her Review of Systems Cardiovascular: Cardiovascular: Reports no additional cardiovascular complaints Respiratory: Respiratory: Reports no additional respiratory complaints Gastrointestinal: Gastrointestinal: Reports no additional gastrointestinal complaints Genitourinary: Genitourinary: Reports no additional female genitourinary complaints Exam Narrative: WDWN in NAD skin no rash head ncat lungs mildly coarse and symmetric cor reg no rub abd BS+ nontender and soft ext 1 to2+ bilateral edema. Objective Data Vital Signs Vital Signs: Vital Signs - 24 hr 06/15/24 09:45 06/15/24 10:00 06/15/24 10:15 Temperature Pulse Rate 68 74 71 Respiratory Rate Blood Pressure 99/48 L 99/54 L 106/53 L Pulse Oximetry Oxygen Delivery Fraction of Inspired Oxygen 06/15/24 10:30 06/15/24 10:45 06/15/24 10:00 Temperature Pulse Rate 70 77 72 Respiratory Rate Blood Pressure 100/47 L 103/50 L 99/54 L Pulse Oximetry Oxygen Delivery Fraction of Inspired Oxygen 06/15/24 10:00 06/15/24 10:00 06/15/24 10:00 Temperature Pulse Rate 72 72 72 Respiratory Rate 24 H 24 H Blood Pressure Pulse Oximetry Oxygen Delivery Fraction of Inspired Oxygen 06/15/24 10:00 06/15/24 10:42 06/15/24 11:25 Temperature Pulse Rate 72 82 70 Respiratory Rate 24 H Blood Pressure 99/54 L 94/44 L Pulse Oximetry 95 94 Oxygen Delivery Mechanical Ventilation Fraction of Inspired Oxygen 40 06/15/24 11:02 06/15/24 11:10 06/15/24 12:00 Temperature 97.8 F Pulse Rate 71 73 70 Respiratory Rate 24 H Blood Pressure 85/46 L 96/47 L Pulse Oximetry 94 Oxygen Delivery Fraction of Inspired Oxygen 06/15/24 12:17 06/15/24 12:00 06/15/24 12:00 Temperature Pulse Rate 69 68 68 Respiratory Rate 24 H Blood Pressure 112/50 L 110/50 L Pulse Oximetry Oxygen Delivery Fraction of Inspired Oxygen 06/15/24 12:00 06/15/24 12:00 06/15/24 12:00 Temperature Pulse Rate 68 70 Respiratory Rate 24 H Blood Pressure Pulse Oximetry Oxygen Delivery Mechanical Ventilation Fraction of Inspired Oxygen 40 06/15/24 12:00 06/15/24 12:00 06/15/24 13:15 Temperature 99.5 F Pulse Rate 68 68 Respiratory Rate 24 H Blood Pressure 110/50 L 116/51 L Pulse Oximetry 95 Oxygen Delivery Fraction of Inspired Oxygen 40 06/15/24 13:39 06/15/24 13:52 06/15/24 13:50 Temperature Pulse Rate 69 70 71 Respiratory Rate 24 H 24 H Blood Pressure Pulse Oximetry 96 Oxygen Delivery Mechanical Ventilation Fraction of Inspired Oxygen 40 06/15/24 14:00 06/15/24 14:00 06/15/24 14:00 Temperature Pulse Rate 70 70 70 Respiratory Rate 24 H 24 H Blood Pressure 102/41 L Pulse Oximetry Oxygen Delivery Fraction of Inspired Oxygen 06/15/24 14:00 06/15/24 14:00 06/15/24 16:20 Temperature Pulse Rate 70 70 67 Respiratory Rate 24 H Blood Pressure 102/41 L Pulse Oximetry 95 98 Oxygen Delivery Mechanical Ventilation Fraction of Inspired Oxygen 40 06/15/24 16:00 06/15/24 16:00 06/15/24 16:00 Temperature Pulse Rate 66 66 66 Respiratory Rate 24 H 24 H Blood Pressure 112/52 L Pulse Oximetry Oxygen Delivery Fraction of Inspired Oxygen 06/15/24 16:00 06/15/24 16:00 06/15/24 16:00 Temperature 98.7 F Pulse Rate 66 66 Respiratory Rate 24 H Blood Pressure 112/52 L Pulse Oximetry 95 Oxygen Delivery Fraction of Inspired Oxygen 40 06/15/24 16:00 06/15/24 17:17 06/15/24 18:00 Temperature Pulse Rate 74 64 Respiratory Rate Blood Pressure 114/54 L 102/51 L Pulse Oximetry Oxygen Delivery Mechanical Ventilation Fraction of Inspired Oxygen 40 06/15/24 18:00 06/15/24 18:00 06/15/24 18:00 Temperature Pulse Rate 64 64 64 Respiratory Rate 20 24 H Blood Pressure Pulse Oximetry Oxygen Delivery Fraction of Inspired Oxygen 06/15/24 18:00 06/15/24 18:30 06/15/24 19:30 Temperature Pulse Rate 64 67 67 Respiratory Rate 24 H Blood Pressure 102/51 L 117/54 L Pulse Oximetry 97 98 Oxygen Delivery Mechanical Ventilation Fraction of Inspired Oxygen 40 06/15/24 20:10 06/15/24 20:00 06/15/24 20:09 Temperature 98.7 F Pulse Rate 64 64 69 Respiratory Rate 24 H Blood Pressure 103/45 L 103/45 L 110/52 L Pulse Oximetry 98 Oxygen Delivery Fraction of Inspired Oxygen 06/15/24 20:19 06/15/24 22:00 06/15/24 22:00 Temperature Pulse Rate 69 63 67 Respiratory Rate Blood Pressure 110/52 L 109/50 L Pulse Oximetry Oxygen Delivery Fraction of Inspired Oxygen 06/15/24 22:06 06/15/24 20:00 06/15/24 20:00 Temperature 98.6 F Pulse Rate 66 63 Respiratory Rate 20 Blood Pressure 108/50 L Pulse Oximetry 98 Oxygen Delivery Fraction of Inspired Oxygen 40 06/16/24 00:06 06/15/24 23:10 06/16/24 00:00 Temperature 98.7 F Pulse Rate 60 63 62 Respiratory Rate 20 Blood Pressure 101/45 L 101/45 L Pulse Oximetry 95 100 Oxygen Delivery Mechanical Ventilation Fraction of Inspired Oxygen 40 06/16/24 00:48 06/15/24 20:00 06/15/24 22:00 Temperature Pulse Rate 61 63 62 Respiratory Rate 21 H Blood Pressure 98/44 L Pulse Oximetry 99 Oxygen Delivery Mechanical Ventilation Fraction of Inspired Oxygen 40 06/16/24 02:05 06/16/24 02:00 06/16/24 01:00 Temperature 98.6 F Pulse Rate 61 60 62 Respiratory Rate 20 Blood Pressure 98/44 L 106/47 L Pulse Oximetry 93 97 Oxygen Delivery Mechanical Ventilation Fraction of Inspired Oxygen 40 06/16/24 01:15 06/16/24 02:00 06/16/24 02:45 Temperature Pulse Rate 61 61 60 Respiratory Rate Blood Pressure 107/48 L 106/48 L 99/43 L Pulse Oximetry Oxygen Delivery Fraction of Inspired Oxygen 06/16/24 00:00 06/15/24 20:00 06/15/24 22:00 Temperature Pulse Rate 62 64 62 Respiratory Rate 20 20 Blood Pressure Pulse Oximetry Oxygen Delivery Fraction of Inspired Oxygen 06/16/24 00:00 06/16/24 02:00 06/15/24 20:00 Temperature Pulse Rate 62 61 64 Respiratory Rate 20 20 20 Blood Pressure Pulse Oximetry Oxygen Delivery Fraction of Inspired Oxygen 06/15/24 22:00 06/16/24 00:00 06/16/24 02:00 Temperature Pulse Rate 62 62 61 Respiratory Rate 20 20 20 Blood Pressure Pulse Oximetry Oxygen Delivery Fraction of Inspired Oxygen 06/16/24 04:00 06/16/24 02:00 06/16/24 04:00 Temperature 98.2 F Pulse Rate 66 61 66 Respiratory Rate 18 Blood Pressure 122/57 L Pulse Oximetry 96 Oxygen Delivery Fraction of Inspired Oxygen 06/16/24 04:00 06/16/24 04:00 06/16/24 04:00 Temperature Pulse Rate 66 66 66 Respiratory Rate 20 20 Blood Pressure 122/57 L Pulse Oximetry Oxygen Delivery Fraction of Inspired Oxygen 06/16/24 05:54 06/16/24 06:04 06/16/24 07:33 Temperature 98.3 F Pulse Rate 65 64 73 Respiratory Rate 21 H 21 H Blood Pressure 106/53 L Pulse Oximetry 98 95 Oxygen Delivery Mechanical Ventilation Fraction of Inspired Oxygen 40 06/16/24 07:35 06/16/24 00:00 06/16/24 00:00 Temperature Pulse Rate 73 Respiratory Rate Blood Pressure Pulse Oximetry 94 Oxygen Delivery Mechanical Ventilation Mechanical Ventilation Fraction of Inspired Oxygen 40 40 40 06/16/24 04:00 06/16/24 04:00 06/16/24 06:00 Temperature Pulse Rate 65 Respiratory Rate Blood Pressure Pulse Oximetry Oxygen Delivery Mechanical Ventilation Fraction of Inspired Oxygen 40 40 06/16/24 06:00 06/16/24 03:00 06/16/24 03:15 Temperature Pulse Rate 65 60 60 Respiratory Rate Blood Pressure 106/53 L 106/48 L 110/48 L Pulse Oximetry Oxygen Delivery Fraction of Inspired Oxygen 06/16/24 00:45 06/16/24 06:00 06/16/24 06:00 Temperature Pulse Rate 61 65 65 Respiratory Rate 20 20 20 Blood Pressure 98/44 L Pulse Oximetry 97 Oxygen Delivery Fraction of Inspired Oxygen 06/16/24 01:00 06/16/24 01:15 06/16/24 01:30 Temperature Pulse Rate 61 60 60 Respiratory Rate 20 20 20 Blood Pressure 106/47 L 107/48 L 102/43 L Pulse Oximetry 95 95 94 Oxygen Delivery Fraction of Inspired Oxygen 06/16/24 01:45 06/16/24 02:45 06/16/24 03:00 Temperature Pulse Rate 61 60 60 Respiratory Rate 20 20 20 Blood Pressure 108/49 L 99/43 L 106/48 L Pulse Oximetry 91 94 94 Oxygen Delivery Fraction of Inspired Oxygen 06/16/24 03:15 06/16/24 03:30 06/16/24 03:45 Temperature Pulse Rate 60 60 62 Respiratory Rate 20 20 20 Blood Pressure 110/48 L 104/46 L 112/52 L Pulse Oximetry 94 94 94 Oxygen Delivery Fraction of Inspired Oxygen 06/16/24 08:09 06/16/24 08:09 06/16/24 08:25 Temperature 97.6 F Pulse Rate 78 74 Respiratory Rate 21 H Blood Pressure 116/53 L 127/56 L Pulse Oximetry 96 Oxygen Delivery Fraction of Inspired Oxygen 40 06/16/24 09:00 06/16/24 09:15 06/16/24 08:30 Temperature Pulse Rate 72 72 74 Respiratory Rate Blood Pressure 118/52 L 118/57 L 116/60 Pulse Oximetry Oxygen Delivery Fraction of Inspired Oxygen 06/16/24 08:45 06/16/24 08:00 06/16/24 09:30 Temperature 98.4 F Pulse Rate 71 70 72 Respiratory Rate 23 H Blood Pressure 117/53 L 116/53 L 114/55 L Pulse Oximetry 93 Oxygen Delivery Fraction of Inspired Oxygen Intake/Output Intake/Output: Intake & Output 10/23/24 10/24/24 10/25/24 10/26/24 23:59 23:59 23:59 23:59 Intake Total 1693.2 1649.7 2649.6 162.7 Output Total 4125 3110 4200 100 Balance -2431.8 -1460.3 -1550.4 62.7 Meds/Results Medications: Active Medications Generic Name Dose Route Start Last Admin Trade Name Freq PRN Reason Stop Dose Admin Acetaminophen 650 mg 06/07/24 21:53 06/07/24 22:30 Acetaminophen Elixir 325 Mg/10.15 Ml Udc PO 650 mg Q6H PRN Administration Mild Pain (1-3) or Fever Albuterol/Ipratropium 3 ml 06/05/24 11:15 06/16/24 07:28 Ipratropium 0.5 Mg/Albuterol Sulfate 2.5 Mg Ampul.Neb 3 Ml INHALATION 3 ml Q6HRT JOHN Administration Amiodarone HCl 200 mg 06/02/24 21:00 06/15/24 22:00 Amiodarone Hcl 200 Mg Tablet PO 200 mg Q12HR JOHN Administration Apixaban 5 mg 06/06/24 09:30 06/15/24 22:00 Apixaban 5 Mg Tablet PO 5 mg Q12HR JOHN Administration Dextrose 12.5 gm 06/05/24 11:46 Dextrose 50% 25 Gm/50 Ml Syringe IV PUSH PRN PRN Hypoglycemia Protocol Glucagon 1 mg 06/05/24 11:46 Glucagon For Inj 1 Mg Vial IM PRN PRN Hypoglycemia Protocol Glucose 15 gm 06/05/24 11:46 Glucose Oral Gel 15 Gm Of Glucse In 37.5 Gm Tube PO PRN PRN Hypoglycemia Protocol Norepinephrine Bitartrate 8 mg in 250 mls @ 16.875 mls/hr 06/05/24 00:35 06/16/24 06:00 Levophed 8 Mg/D5w 250 Ml IV CONT 9 mcg/min .[id number] JOHN 16.88 mls/hr Titration Protocol 9 MCG/MIN Fentanyl Citrate 2,500 mcg in 250 mls @ 5 mls/hr 06/05/24 08:35 06/16/24 06:00 Fentanyl 2,500 Mcg/Ns 250 Ml IV CONT 50 mcg/hr .Q50H JOHN 5 mls/hr Titration Protocol 50 MCG/HR Midazolam HCl 100 mg in 100 mls @ 2 mls/hr 06/05/24 08:35 06/16/24 06:00 Versed 100 Mg/Ns 100 Ml IV CONT 2 mg/hr .Q50H JOHN 2 mls/hr Titration Protocol 2 MG/HR Dextrose 1,000 mls @ 100 mls/hr 06/05/24 11:46 Dextrose 5% 1,000 Ml IVPB PRN PRN Hypoglycemia Protocol Albumin Human 50 mls @ 999 mls/hr 06/08/24 09:50 06/12/24 11:39 Albutein IVPB 07/08/24 09:49 Infused Q10M PRN Infusion HYPOTENSION Insulin Aspart 3 - 6 units 06/05/24 12:00 06/16/24 07:02 Insulin Aspart (*Bkc) 100 Units/Ml SUB-Q Not Given Q6HR JOHN Protocol Midodrine 10 mg 06/05/24 09:00 06/15/24 16:53 Midodrine Hcl 10 Mg Tablet PO 10 mg TID JOHN Administration Multi-Ingred Cream/Lotion/Oil/Oint 1 applic 06/05/24 09:00 06/15/24 22:00 Mineral Oil/White Petrolatum Ointment EACH EYE 1 applic Q12HR JOHN Administration Ondansetron HCl 4 mg 06/11/24 07:47 06/11/24 13:40 Ondansetron Inj 4 Mg/2 Ml Vial IV PUSH 4 mg Q6H PRN Administration Nausea And Vomiting Pantoprazole Sodium 40 mg 06/06/24 09:00 06/15/24 22:00 Pantoprazole Sodium Iv 40 Mg Vial IV PUSH 40 mg Q12HR JOHN Administration Fluticasone/Salmeterol 2 puff 06/03/24 08:00 06/14/24 12:38 Fluticasone/Salmeterol 115-21 Mcg Inhaler 1 Puff INHALATION Not Given Q12HRT JOHN Sodium Chloride 10 ml 06/05/24 06:00 06/16/24 07:03 Central Line Flush IV PUSH 10 ml Q8HR JOHN Administration Sodium Chloride 20 ml 06/05/24 03:12 Central Line Flush IV PUSH PRN PRN after blood draws Umeclidinium [place] 1 puff 06/03/24 08:00 06/14/24 12:38 Umeclidinium [place] 62.5 Mcg Ellipta INHALATION Not Given DAILYRT JOHN Radiology Results: ITS Impressions Renal Ultrasound 06/04/24 15:06 IMPRESSION: 1. Normal kidneys. No hydronephrosis. Chest/Abdomen/Pelvis CT 06/04/24 19:12 IMPRESSION: 1. Diffuse lung disease, consistent with pulmonary edema versus pneumonia. 2. Moderate volume of ascites. Venous Doppler Study 06/07/24 17:01 IMPRESSION: 1. No deep venous thrombosis. Abdomen Ultrasound 06/10/24 14:47 IMPRESSION: Fat infiltration. Enlarged left lobe of the liver. Slightly thickened wall of the gallbladder. Trace of ascites. Otherwise, normal Limited ultrasound of the abdomen. Abdomen X-Ray 06/11/24 07:58 Impression: Limited exam. NG tube is in satisfactory position. Chest X-Ray 06/16/24 06:12 IMPRESSION: 1. Stable diffuse lung disease, consistent with pulmonary edema versus pneumonia. 2. Cardiomegaly. Labs Labs: Laboratory Results - last 24 hr 06/15/24 06/15/24 06/15/24 12:03 16:52 23:54 WBC RBC Hgb Hct MCV MCH MCHC RDW Plt Count MPV Immature Gran % (Auto) Neut % (Auto) Lymph % (Auto) [place] % (Auto) Eos % (Auto) Baso % (Auto) Lymph # (Auto) [place] # (Auto) Eos # (Auto) Baso # (Auto) Abs Immat Gran (auto) Absolute Neuts (auto) Absolute Nucleated RBC Nucleated RBC % Puncture Site ABG pH ABG pCO2 ABG pO2 ABG PO2/FiO2 Ratio ABG HCO3 ABG O2 Saturation ABG O2 Content ABG Base Excess A-a Gradient Oxyhemoglobin Carboxyhemoglobin Methemoglobin Reduced Hemoglobin Total Hemoglobin O2 Delivery Device O2 Liters/Min Minute Volume Vent Rate Vent Mode FiO2 Tidal Volume PEEP Peak Inspir Pressure Pressure Support Sodium Potassium Chloride Carbon Dioxide Anion Gap BUN Creatinine Estim Creat Clear Calc Estimated GFR Glucose POC Capillary Glucose 191 H 144 H 134 H Calcium Phosphorus Magnesium Total Bilirubin AST ALT Alkaline Phosphatase Total Protein Albumin 06/16/24 06/16/24 06/16/24 00:31 05:16 05:53 WBC 15.7 H RBC 3.74 L Hgb 10.2 L Hct 33.0 L MCV 88.2 MCH 27.3 MCHC 30.9 L RDW 19.4 H Plt Count 329 MPV 9.9 Immature Gran % (Auto) 1.0 H Neut % (Auto) 81.3 H Lymph % (Auto) 7.1 L [place] % (Auto) 8.7 H Eos % (Auto) 1.7 Baso % (Auto) 0.2 Lymph # (Auto) 1.11 [place] # (Auto) 1.4 H Eos # (Auto) 0.3 Baso # (Auto) 0.0 Abs Immat Gran (auto) 0.16 H Absolute Neuts (auto) 12.7 H Absolute Nucleated RBC 0.000 Nucleated RBC % 0.0 Puncture Site Right radial ABG pH 7.389 ABG pCO2 47.7 H ABG pO2 70.4 L ABG PO2/FiO2 Ratio 1.76 ABG HCO3 28.2 H ABG O2 Saturation 93.9 L ABG O2 Content 14.9 L ABG Base Excess 2.6 A-a Gradient 159.9 Oxyhemoglobin 93.2 Carboxyhemoglobin 0.6 Methemoglobin 0.1 Reduced Hemoglobin 6.1 H Total Hemoglobin 11.3 L O2 Delivery Device Ventilator O2 Liters/Min Not Reportable Minute Volume Not Reportable Vent Rate 20 Vent Mode Cmv FiO2 40 Tidal Volume 400 PEEP 8 Peak Inspir Pressure Not Reportable Pressure Support Not Reportable Sodium 135 L Potassium 4.0 Chloride 96 L Carbon Dioxide 26 Anion Gap 13 H BUN 63 H D Creatinine 3.60 H Estim Creat Clear Calc 26 Estimated GFR 13 L Glucose 177 H POC Capillary Glucose 137 H Calcium 9.9 Phosphorus 3.9 Magnesium 2.4 H Total Bilirubin 1.5 H AST 142 H ALT 78 H Alkaline Phosphatase 281 H Total Protein 7.0 Albumin 3.3 L 06/16/24 05:55 WBC RBC Hgb Hct MCV MCH MCHC RDW Plt Count MPV Immature Gran % (Auto) Neut % (Auto) Lymph % (Auto) [place] % (Auto) Eos % (Auto) Baso % (Auto) Lymph # (Auto) [place] # (Auto) Eos # (Auto) Baso # (Auto) Abs Immat Gran (auto) Absolute Neuts (auto) Absolute Nucleated RBC Nucleated RBC % Puncture Site ABG pH ABG pCO2 ABG pO2 ABG PO2/FiO2 Ratio ABG HCO3 ABG O2 Saturation ABG O2 Content ABG Base Excess A-a Gradient Oxyhemoglobin Carboxyhemoglobin Methemoglobin Reduced Hemoglobin Total Hemoglobin O2 Delivery Device O2 Liters/Min Minute Volume Vent Rate Vent Mode FiO2 Tidal Volume PEEP Peak Inspir Pressure Pressure Support Sodium Potassium Chloride Carbon Dioxide Anion Gap BUN Creatinine Estim Creat Clear Calc Estimated GFR Glucose POC Capillary Glucose 184 H Calcium Phosphorus Magnesium Total Bilirubin AST ALT Alkaline Phosphatase Total Protein Albumin
[2024-06-16] MEDS: MINERAL OIL/WHITE PETROLATUM OINTMENT 1 APPLIC EACH EYE ×2 (11:30→20:30)
[2024-06-16] MEDS: HEPARIN SODIUM 1,000 UNITS/ML VIAL 3000 UNITS (11:37)
[2024-06-16] MEDS: AMIODARONE HCL 200 MG TABLET PO ×2 (11:52→20:30)
[2024-06-16] MEDS: APIXABAN 5 MG TABLET PO ×2 (11:52→20:30)
[2024-06-16] MEDS: PANTOPRAZOLE SODIUM IV 40 MG VIAL IV PUSH ×2 (11:53→20:30)
[2024-06-16] MEDS: MIDODRINE HCL 10 MG TABLET PO ×3 (11:53→17:21)
[2024-06-16 14:11] LABS: Glucose Point of Care 143 mg/dl (65-105)
[2024-06-16] MEDS: NOREPINEPHRINE 8 MG/D5W 250 ML 8 MG/250 ML BAG 11.25 MG IV CONT (14:40)
--- NOTE | 2024-06-16 15:12 | P.PNIM_ITS ---
Progress Note: A&P Assessment and Plan (1) Acute respiratory failure: Code(s): J96.00 - Acute respiratory failure, unspecified whether with hypoxia or hypercapnia Status: Acute Assessment and Plan: Patient originally admitted for difficulty voiding. Patient developed HoTN and hypoxia on 06/04 that worsened overnight. ABG showing 7.33/58/66.5 on HFNC. Patient brought to the ICU in the product safety specialist hours of 06/05. She had increasing O2 requirements. CXR showed bilateral diffuse pulmonary infiltrates/pulmonary edema. Respiratory failure related to pulmonary edema, pneumonia and/or ARDS Patient was placed on BiPAP but ultimately intubated on 06/05/24. Despite daily HD, CXR continues to show edema vs PNA. Peep requirement remains at 8. Continue bronchodilators Fentanyl and Versed for sedation Continue dialysis for fluid removal per nephrology. Wean vent as tolerated. (2) Septic shock: Code(s): A41.9 - Sepsis, unspecified organism; R65.21 - Severe sepsis with septic shock Status: Acute Assessment and Plan: Patient was HoTN in the IMU and transferred to the ICU. Septic shock possibly related to UTI, pneumonia, bacteremia. Rt IJ central line was placed and Levophed started. She received fluids, albumin and midodrine BCx and UCx 06/02 negative. BCx 06/06 grew EColi and Staph Epidermidis. EColi was pansensitive. UCx 06/06 negative. Sputum Cx 06/07 growing yeast. BCx 06/08 negative Patient was on vancomycin and cefepime which were continued. Fluconazole was discontinued given her renal dysfunction Stress dose steroids were started but are off now Cause of bacteremia probably urinary source given UA results despite UCx being negative. Completed a course and now off all abx since 06/12. Off FISCAL ANALYST since 06/06 but remains on Levophed. Wean as tolerated. Continue midodrine (3) JOVI (acute kidney injury): Code(s): N17.9 - Acute kidney failure, unspecified Status: Acute Assessment and Plan: Baseline Cr normal in April. Cr 2.1 on admission and has worsened JOVI related to shock, sepsis, UTI/pneumonia, hypoxia, SLE flare and/or CHF. TCK levels are normal. Ueos negative. Urine lytes c/w prerenal picture but patient seems to be volume overloaded Treated with IV fluids and albumin but renal function worsening and HD recommended. Optical Worker consulted and dialysis catheter was placed 06/05 in the right IJ and exchanged for the central line HD daily with removal of anywhere from 2.9-4L per day since 06/05 (except 06/10) Cumulative fluid balance of -15L. Still appears to be fluid overloaded but much improved. Continue HD as she tolerates. (4) Pulmonary edema: Code(s): J81.1 - Chronic pulmonary edema Status: Acute Assessment and Plan: CT chest (06/04) showing diffuse lung disease c/w PNA vs pulmonary edema. COVID, RSV and influenza PCR negative Echo showing normal LV size and fxn (EF 65-70%), Grade I diastolic dysfxn, RV enlargement with normal fxn, moderate bi-atrial enlargement and mild-mod TR. Pulmonary edema likely related to acute kidney injury, ARDS. She did not respond to Bumex Repeat CXR today showing: stable diffuse lung disease with pulm edema vs PNA Control fluid status with HD (5) Type 2 diabetes mellitus: Code(s): E11.9 - Type 2 diabetes mellitus without complications Status: Acute Assessment and Plan: A1c 5.7. The patient's blood glucose was reviewed on 06/16 Glucose remains reasonably well controlled. Continue AccuCheks covering with sliding scale. Hypoglycemia protocol available as needed. Continue to monitor (6) Afib: Code(s): I48.91 - Unspecified atrial fibrillation Status: Acute Assessment and Plan: HR well controlled and tele showing normal sinus. Continue amiodarone Eliquis continued Flecainide stopped (7) SLE (systemic lupus erythematosus): Code(s): M32.9 - Systemic lupus erythematosus, unspecified Status: Acute Assessment and Plan: Consider SLE flare causinig her JOVI. Was started on stress dose steroids but now off Nephrology following (8) Liver cirrhosis secondary to [place]: Code(s): K75.81 - Nonalcoholic steatohepatitis (HOFFMANN); K74.60 - Unspecified cirrhosis of liver Status: Acute Assessment and Plan: Patient has a hx of liver cirrhosis. CT abd without contrast shows normal liver but moderate volume of ascites and body wall edema consistent with her fluid overload. Mild elevation in AST/ALT that have been up and down RUQ ultrasound 06/10 showing fat infiltration, enlarged left lobe of the liver and slightly thickened wall of the gallbladder. Trace ascites. Hepatitis panel is negative [place] elevated LFTs related to congestion. Continue to monitor (9) Morbid obesity with BMI of 50.0-59.9, adult: Code(s): E66.01 - Morbid (severe) obesity due to excess calories; Z68.43 - Body mass index [BMI] 50.0-59.9, adult Status: Acute Assessment and Plan: Once extubated she will need lifestyle changes Plan DVT prophylaxis: Eliquis Code Status: Full code Subjective Date/time seen: 06/16/24 15:12 Interval history: 54yo female with AFib on anticoagulation, PM and DM here for difficulty voiding. Patient had worsening respiratory status and hypotension despite ongoing therapy and was transferred to the ICU in the product safety specialist hours of 06/05. Central line was placed and started on pressor therapy. She was intubated later that morning. Patient remains intubated and is unable to provide hx. She awakens easily. No issues overnight per RN. PEEP still at 8. Tolerated HD yesterday and already had HD again this morning with 4L off. Review of Systems Review of Systems: ROS unobtainable: Yes unobtainable due to endotracheal tube Exam Narrative: AF 98.4 119/53 69 25 95% MV Gen - intubated and on sedation HEENT - ETT and OGT secured. Neck - Rt IJ HD catheter with pigtail in place. Chest - lungs clear anteriorly. CV - RRR S1/S2. Tele showing no significant dysrhythmias Abd - soft, morbidly obese, improved flank and abd wall edema. - Lai secured with scant amount of dark yellow urine in the bag Ext - diffuse LE pitting pedal edema with improvement and wrinkling. heel pads in place. 2+ DP pulses bilaterally Neuro - sedated but awakens easily and follows commands Skin - Warm and dry. increased right jenkins pink erythema that is warm to touch Objective Data Vital Signs Vital Signs: Vital Signs - 24 hr 06/15/24 16:20 06/15/24 16:00 06/15/24 16:00 Temperature Pulse Rate 67 66 66 Respiratory Rate 24 H Blood Pressure 112/52 L Pulse Oximetry 98 Oxygen Delivery Mechanical Ventilation Fraction of Inspired Oxygen 40 06/15/24 16:00 06/15/24 16:00 06/15/24 16:00 Temperature Pulse Rate 66 66 Respiratory Rate 24 H Blood Pressure Pulse Oximetry Oxygen Delivery Fraction of Inspired Oxygen 40 06/15/24 16:00 06/15/24 16:00 06/15/24 17:17 Temperature 98.7 F Pulse Rate 66 74 Respiratory Rate 24 H Blood Pressure 112/52 L 114/54 L Pulse Oximetry 95 Oxygen Delivery Mechanical Ventilation Fraction of Inspired Oxygen 40 06/15/24 18:00 06/15/24 18:00 06/15/24 18:00 Temperature Pulse Rate 64 64 64 Respiratory Rate 20 24 H Blood Pressure 102/51 L Pulse Oximetry Oxygen Delivery Fraction of Inspired Oxygen 06/15/24 18:00 06/15/24 18:00 06/15/24 18:30 Temperature Pulse Rate 64 64 67 Respiratory Rate 24 H Blood Pressure 102/51 L 117/54 L Pulse Oximetry 97 Oxygen Delivery Fraction of Inspired Oxygen 06/15/24 19:30 06/15/24 20:10 06/15/24 20:00 Temperature 98.7 F Pulse Rate 67 64 64 Respiratory Rate 24 H Blood Pressure 103/45 L 103/45 L Pulse Oximetry 98 98 Oxygen Delivery Mechanical Ventilation Fraction of Inspired Oxygen 40 06/15/24 20:09 06/15/24 20:19 06/15/24 22:00 Temperature Pulse Rate 69 69 63 Respiratory Rate Blood Pressure 110/52 L 110/52 L Pulse Oximetry Oxygen Delivery Fraction of Inspired Oxygen 06/15/24 22:00 06/15/24 22:06 06/15/24 20:00 Temperature 98.6 F Pulse Rate 67 66 63 Respiratory Rate 20 Blood Pressure 109/50 L 108/50 L Pulse Oximetry 98 Oxygen Delivery Fraction of Inspired Oxygen 06/15/24 20:00 06/16/24 00:06 06/15/24 23:10 Temperature 98.7 F Pulse Rate 60 63 Respiratory Rate 20 Blood Pressure 101/45 L Pulse Oximetry 95 100 Oxygen Delivery Mechanical Ventilation Fraction of Inspired Oxygen 40 40 06/16/24 00:00 06/16/24 00:48 06/15/24 20:00 Temperature Pulse Rate 62 61 63 Respiratory Rate 21 H Blood Pressure 101/45 L 98/44 L Pulse Oximetry 99 Oxygen Delivery Mechanical Ventilation Fraction of Inspired Oxygen 40 06/15/24 22:00 06/16/24 02:05 06/16/24 02:00 Temperature 98.6 F Pulse Rate 62 61 60 Respiratory Rate 20 Blood Pressure 98/44 L Pulse Oximetry 93 97 Oxygen Delivery Mechanical Ventilation Fraction of Inspired Oxygen 40 06/16/24 01:00 06/16/24 01:15 06/16/24 02:00 Temperature Pulse Rate 62 61 61 Respiratory Rate Blood Pressure 106/47 L 107/48 L 106/48 L Pulse Oximetry Oxygen Delivery Fraction of Inspired Oxygen 06/16/24 02:45 06/16/24 00:00 06/15/24 20:00 Temperature Pulse Rate 60 62 64 Respiratory Rate 20 Blood Pressure 99/43 L Pulse Oximetry Oxygen Delivery Fraction of Inspired Oxygen 06/15/24 22:00 06/16/24 00:00 06/16/24 02:00 Temperature Pulse Rate 62 62 61 Respiratory Rate 20 20 20 Blood Pressure Pulse Oximetry Oxygen Delivery Fraction of Inspired Oxygen 06/15/24 20:00 06/15/24 22:00 06/16/24 00:00 Temperature Pulse Rate 64 62 62 Respiratory Rate 20 20 20 Blood Pressure Pulse Oximetry Oxygen Delivery Fraction of Inspired Oxygen 06/16/24 02:00 06/16/24 04:00 06/16/24 02:00 Temperature 98.2 F Pulse Rate 61 66 61 Respiratory Rate 20 18 Blood Pressure 122/57 L Pulse Oximetry 96 Oxygen Delivery Fraction of Inspired Oxygen 06/16/24 04:00 06/16/24 04:00 06/16/24 04:00 Temperature Pulse Rate 66 66 66 Respiratory Rate 20 Blood Pressure 122/57 L Pulse Oximetry Oxygen Delivery Fraction of Inspired Oxygen 06/16/24 04:00 06/16/24 05:54 06/16/24 06:04 Temperature 98.3 F Pulse Rate 66 65 64 Respiratory Rate 20 21 H Blood Pressure 106/53 L Pulse Oximetry 98 95 Oxygen Delivery Mechanical Ventilation Fraction of Inspired Oxygen 40 06/16/24 07:33 06/16/24 07:35 06/16/24 00:00 Temperature Pulse Rate 73 73 Respiratory Rate 21 H Blood Pressure Pulse Oximetry 94 Oxygen Delivery Mechanical Ventilation Mechanical Ventilation Fraction of Inspired Oxygen 40 40 06/16/24 00:00 06/16/24 04:00 06/16/24 04:00 Temperature Pulse Rate Respiratory Rate Blood Pressure Pulse Oximetry Oxygen Delivery Mechanical Ventilation Fraction of Inspired Oxygen 40 40 40 06/16/24 06:00 06/16/24 06:00 06/16/24 03:00 Temperature Pulse Rate 65 65 60 Respiratory Rate Blood Pressure 106/53 L 106/48 L Pulse Oximetry Oxygen Delivery Fraction of Inspired Oxygen 06/16/24 03:15 06/16/24 00:45 06/16/24 06:00 Temperature Pulse Rate 60 61 65 Respiratory Rate 20 20 Blood Pressure 110/48 L 98/44 L Pulse Oximetry 97 Oxygen Delivery Fraction of Inspired Oxygen 06/16/24 06:00 06/16/24 01:00 06/16/24 01:15 Temperature Pulse Rate 65 61 60 Respiratory Rate 20 20 20 Blood Pressure 106/47 L 107/48 L Pulse Oximetry 95 95 Oxygen Delivery Fraction of Inspired Oxygen 06/16/24 01:30 06/16/24 01:45 06/16/24 02:45 Temperature Pulse Rate 60 61 60 Respiratory Rate 20 20 20 Blood Pressure 102/43 L 108/49 L 99/43 L Pulse Oximetry 94 91 94 Oxygen Delivery Fraction of Inspired Oxygen 06/16/24 03:00 06/16/24 03:15 06/16/24 03:30 Temperature Pulse Rate 60 60 60 Respiratory Rate 20 20 20 Blood Pressure 106/48 L 110/48 L 104/46 L Pulse Oximetry 94 94 94 Oxygen Delivery Fraction of Inspired Oxygen 06/16/24 03:45 06/16/24 08:09 06/16/24 08:09 Temperature 97.6 F Pulse Rate 62 78 Respiratory Rate 20 21 H Blood Pressure 112/52 L 116/53 L Pulse Oximetry 94 96 Oxygen Delivery Fraction of Inspired Oxygen 40 06/16/24 08:25 06/16/24 09:00 06/16/24 09:15 Temperature Pulse Rate 74 72 72 Respiratory Rate Blood Pressure 127/56 L 118/52 L 118/57 L Pulse Oximetry Oxygen Delivery Fraction of Inspired Oxygen 06/16/24 09:45 06/16/24 10:00 06/16/24 10:15 Temperature Pulse Rate 68 68 67 Respiratory Rate Blood Pressure 116/50 L 111/51 L 115/48 L Pulse Oximetry Oxygen Delivery Fraction of Inspired Oxygen 06/16/24 10:30 06/16/24 10:45 06/16/24 11:01 Temperature Pulse Rate 67 68 68 Respiratory Rate Blood Pressure 118/55 L 119/55 L 109/56 L Pulse Oximetry Oxygen Delivery Fraction of Inspired Oxygen 06/16/24 11:15 06/16/24 08:30 06/16/24 08:45 Temperature Pulse Rate 66 74 71 Respiratory Rate Blood Pressure 117/56 L 116/60 117/53 L Pulse Oximetry Oxygen Delivery Fraction of Inspired Oxygen 06/16/24 08:00 06/16/24 09:30 06/16/24 11:05 Temperature 98.4 F Pulse Rate 70 72 67 Respiratory Rate 23 H Blood Pressure 116/53 L 114/55 L Pulse Oximetry 93 94 Oxygen Delivery Mechanical Ventilation Fraction of Inspired Oxygen 40 06/16/24 11:52 06/16/24 11:26 06/16/24 11:30 Temperature 98.4 F Pulse Rate 68 66 68 Respiratory Rate 20 Blood Pressure 116/53 L 118/47 L Pulse Oximetry 96 Oxygen Delivery Fraction of Inspired Oxygen 06/16/24 08:00 06/16/24 10:00 06/16/24 12:00 Temperature Pulse Rate 68 67 66 Respiratory Rate Blood Pressure 116/53 L 111/51 L 117/55 L Pulse Oximetry Oxygen Delivery Fraction of Inspired Oxygen 06/16/24 12:30 06/16/24 13:32 06/16/24 13:34 Temperature Pulse Rate 69 73 73 Respiratory Rate 28 H Blood Pressure 108/50 L Pulse Oximetry 94 Oxygen Delivery Mechanical Ventilation Fraction of Inspired Oxygen 40 06/16/24 08:00 06/16/24 10:00 06/16/24 11:50 Temperature Pulse Rate 67 66 68 Respiratory Rate 25 H 25 H 26 H Blood Pressure Pulse Oximetry Oxygen Delivery Fraction of Inspired Oxygen 06/16/24 13:00 06/16/24 13:57 06/16/24 08:00 Temperature Pulse Rate 70 72 78 Respiratory Rate 26 H 26 H 25 H Blood Pressure Pulse Oximetry Oxygen Delivery Fraction of Inspired Oxygen 06/16/24 10:00 06/16/24 11:00 06/16/24 12:00 Temperature Pulse Rate 67 65 66 Respiratory Rate 25 H 24 H 26 H Blood Pressure Pulse Oximetry Oxygen Delivery Fraction of Inspired Oxygen 06/16/24 14:00 06/16/24 14:14 06/16/24 14:23 Temperature Pulse Rate 72 72 70 Respiratory Rate 25 H Blood Pressure 119/55 L Pulse Oximetry 95 Oxygen Delivery Mechanical Ventilation Fraction of Inspired Oxygen 40 06/16/24 14:40 Temperature Pulse Rate 69 Respiratory Rate Blood Pressure 119/53 L Pulse Oximetry Oxygen Delivery Fraction of Inspired Oxygen Intake/Output Intake/Output: Intake & Output 1006/14/24 06/15/24 06/16/24 23:59 23:59 23:59 23:59 Intake Total 1693.2 1649.7 2649.6 331.4 Output Total 4125 3110 4200 4106 Balance -2431.8 -1460.3 -1550.4 -3774.6 Meds/Results Medications: Active Medications Generic Name Dose Route Start Last Admin Trade Name Freq PRN Reason Stop Dose Admin Acetaminophen 650 mg 06/07/24 21:53 06/07/24 22:30 Acetaminophen Elixir 325 Mg/10.15 Ml Udc PO 650 mg Q6H PRN Administration Mild Pain (1-3) or Fever Albuterol/Ipratropium 3 ml 06/05/24 11:15 06/16/24 13:31 Ipratropium 0.5 Mg/Albuterol Sulfate 2.5 Mg Ampul.Neb 3 Ml INHALATION 3 ml Q6HRT JOHN Administration Amiodarone HCl 200 mg 06/02/24 21:00 06/16/24 11:52 Amiodarone Hcl 200 Mg Tablet PO 200 mg Q12HR JOHN Administration Apixaban 5 mg 06/06/24 09:30 06/16/24 11:52 Apixaban 5 Mg Tablet PO 5 mg Q12HR JOHN Administration Dextrose 12.5 gm 06/05/24 11:46 Dextrose 50% 25 Gm/50 Ml Syringe IV PUSH PRN PRN Hypoglycemia Protocol Glucagon 1 mg 06/05/24 11:46 Glucagon For Inj 1 Mg Vial IM PRN PRN Hypoglycemia Protocol Glucose 15 gm 06/05/24 11:46 Glucose Oral Gel 15 Gm Of Glucse In 37.5 Gm Tube PO PRN PRN Hypoglycemia Protocol Norepinephrine Bitartrate 8 mg in 250 mls @ 11.25 mls/hr 06/05/24 00:35 06/16/24 14:40 Levophed 8 Mg/D5w 250 Ml IV CONT 6 mcg/min .Q17I16T JOHN 11.25 mls/hr Administration Protocol 6 MCG/MIN Fentanyl Citrate 2,500 mcg in 250 mls @ 5 mls/hr 06/05/24 08:35 06/16/24 13:57 Fentanyl 2,500 Mcg/Ns 250 Ml IV CONT 0 mcg/hr .Q50H JOHN 0 mls/hr Titration Protocol 50 MCG/HR Midazolam HCl 100 mg in 100 mls @ 2 mls/hr 06/05/24 08:35 06/16/24 14:00 Versed 100 Mg/Ns 100 Ml IV CONT 0 mg/hr .Q50H JOHN 0 mls/hr Titration Protocol 2 MG/HR Dextrose 1,000 mls @ 100 mls/hr 06/05/24 11:46 Dextrose 5% 1,000 Ml IVPB PRN PRN Hypoglycemia Protocol Albumin Human 50 mls @ 999 mls/hr 06/08/24 09:50 06/12/24 11:39 Albutein IVPB 07/08/24 09:49 Infused Q10M PRN Infusion HYPOTENSION Insulin Aspart 3 - 6 units 06/05/24 12:00 06/16/24 13:30 Insulin Aspart (*Bkc) 100 Units/Ml SUB-Q Not Given Q6HR JOHN Protocol Midodrine 10 mg 06/05/24 09:00 06/16/24 14:16 Midodrine Hcl 10 Mg Tablet PO 10 mg TID JOHN Administration Multi-Ingred Cream/Lotion/Oil/Oint 1 applic 06/05/24 09:00 06/16/24 11:30 Mineral Oil/White Petrolatum Ointment EACH EYE 1 applic Q12HR JOHN Administration Ondansetron HCl 4 mg 06/11/24 07:47 06/11/24 13:40 Ondansetron Inj 4 Mg/2 Ml Vial IV PUSH 4 mg Q6H PRN Administration Nausea And Vomiting Pantoprazole Sodium 40 mg 06/06/24 09:00 06/16/24 11:53 Pantoprazole Sodium Iv 40 Mg Vial IV PUSH 40 mg Q12HR JOHN Administration Fluticasone/Salmeterol 2 puff 06/03/24 08:00 06/14/24 12:38 Fluticasone/Salmeterol 115-21 Mcg Inhaler 1 Puff INHALATION Not Given Q12HRT JOHN Sodium Chloride 10 ml 06/05/24 06:00 06/16/24 14:16 Central Line Flush IV PUSH 10 ml Q8HR JOHN Administration Sodium Chloride 20 ml 06/05/24 03:12 Central Line Flush IV PUSH PRN PRN after blood draws Umeclidinium [place] 1 puff 06/03/24 08:00 06/14/24 12:38 Umeclidinium [place] 62.5 Mcg Ellipta INHALATION Not Given DAILYRT JOHN Radiology Results: ITS Impressions Renal Ultrasound 06/04/24 15:06 IMPRESSION: 1. Normal kidneys. No hydronephrosis. Chest/Abdomen/Pelvis CT 06/04/24 19:12 IMPRESSION: 1. Diffuse lung disease, consistent with pulmonary edema versus pneumonia. 2. Moderate volume of ascites. Venous Doppler Study 06/07/24 17:01 IMPRESSION: 1. No deep venous thrombosis. Abdomen Ultrasound 06/10/24 14:47 IMPRESSION: Fat infiltration. Enlarged left lobe of the liver. Slightly thickened wall of the gallbladder. Trace of ascites. Otherwise, normal Limited ultrasound of the abdomen. Chest X-Ray 06/16/24 06:12 IMPRESSION: 1. Stable diffuse lung disease, consistent with pulmonary edema versus pneumonia. 2. Cardiomegaly. Abdomen X-Ray 06/16/24 13:54 IMPRESSION: 1. Nasogastric tube tip in the stomach. 2. Nonobstructive bowel gas pattern. 3. Diffuse lung disease, consistent with pulmonary edema versus pneumonia. 4. Cardiomegaly. Labs Labs: Laboratory Results - last 24 hr 06/15/24 06/15/24 06/16/24 16:52 23:54 00:31 WBC RBC Hgb Hct MCV MCH MCHC RDW Plt Count MPV Immature Gran % (Auto) Neut % (Auto) Lymph % (Auto) [place] % (Auto) Eos % (Auto) Baso % (Auto) Lymph # (Auto) [place] # (Auto) Eos # (Auto) Baso # (Auto) Abs Immat Gran (auto) Absolute Neuts (auto) Absolute Nucleated RBC Nucleated RBC % Puncture Site ABG pH ABG pCO2 ABG pO2 ABG PO2/FiO2 Ratio ABG HCO3 ABG O2 Saturation ABG O2 Content ABG Base Excess A-a Gradient Oxyhemoglobin Carboxyhemoglobin Methemoglobin Reduced Hemoglobin Total Hemoglobin O2 Delivery Device O2 Liters/Min Minute Volume Vent Rate Vent Mode FiO2 Tidal Volume PEEP Peak Inspir Pressure Pressure Support Sodium Potassium Chloride Carbon Dioxide Anion Gap BUN Creatinine Estim Creat Clear Calc Estimated GFR Glucose POC Capillary Glucose 144 H 134 H 137 H Calcium Phosphorus Magnesium Total Bilirubin AST ALT Alkaline Phosphatase Total Protein Albumin 06/16/24 06/16/24 06/16/24 05:16 05:53 05:55 WBC 15.7 H RBC 3.74 L Hgb 10.2 L Hct 33.0 L MCV 88.2 MCH 27.3 MCHC 30.9 L RDW 19.4 H Plt Count 329 MPV 9.9 Immature Gran % (Auto) 1.0 H Neut % (Auto) 81.3 H Lymph % (Auto) 7.1 L [place] % (Auto) 8.7 H Eos % (Auto) 1.7 Baso % (Auto) 0.2 Lymph # (Auto) 1.11 [place] # (Auto) 1.4 H Eos # (Auto) 0.3 Baso # (Auto) 0.0 Abs Immat Gran (auto) 0.16 H Absolute Neuts (auto) 12.7 H Absolute Nucleated RBC 0.000 Nucleated RBC % 0.0 Puncture Site Right radial ABG pH 7.389 ABG pCO2 47.7 H ABG pO2 70.4 L ABG PO2/FiO2 Ratio 1.76 ABG HCO3 28.2 H ABG O2 Saturation 93.9 L ABG O2 Content 14.9 L ABG Base Excess 2.6 A-a Gradient 159.9 Oxyhemoglobin 93.2 Carboxyhemoglobin 0.6 Methemoglobin 0.1 Reduced Hemoglobin 6.1 H Total Hemoglobin 11.3 L O2 Delivery Device Ventilator O2 Liters/Min Not Reportable Minute Volume Not Reportable Vent Rate 20 Vent Mode Cmv FiO2 40 Tidal Volume 400 PEEP 8 Peak Inspir Pressure Not Reportable Pressure Support Not Reportable Sodium 135 L Potassium 4.0 Chloride 96 L Carbon Dioxide 26 Anion Gap 13 H BUN 63 H D Creatinine 3.60 H Estim Creat Clear Calc 26 Estimated GFR 13 L Glucose 177 H POC Capillary Glucose 184 H Calcium 9.9 Phosphorus 3.9 Magnesium 2.4 H Total Bilirubin 1.5 H AST 142 H ALT 78 H Alkaline Phosphatase 281 H Total Protein 7.0 Albumin 3.3 L 06/16/24 14:08 WBC RBC Hgb Hct MCV MCH MCHC RDW Plt Count MPV Immature Gran % (Auto) Neut % (Auto) Lymph % (Auto) [place] % (Auto) Eos % (Auto) Baso % (Auto) Lymph # (Auto) [place] # (Auto) Eos # (Auto) Baso # (Auto) Abs Immat Gran (auto) Absolute Neuts (auto) Absolute Nucleated RBC Nucleated RBC % Puncture Site ABG pH ABG pCO2 ABG pO2 ABG PO2/FiO2 Ratio ABG HCO3 ABG O2 Saturation ABG O2 Content ABG Base Excess A-a Gradient Oxyhemoglobin Carboxyhemoglobin Methemoglobin Reduced Hemoglobin Total Hemoglobin O2 Delivery Device O2 Liters/Min Minute Volume Vent Rate Vent Mode FiO2 Tidal Volume PEEP Peak Inspir Pressure Pressure Support Sodium Potassium Chloride Carbon Dioxide Anion Gap BUN Creatinine Estim Creat Clear Calc Estimated GFR Glucose POC Capillary Glucose 143 H Calcium Phosphorus Magnesium Total Bilirubin AST ALT Alkaline Phosphatase Total Protein Albumin
[2024-06-16 17:20] LABS: Glucose Point of Care 138 mg/dl (65-105)
[2024-06-17] VITALS (70 sets, daily range): BP systolic 95–125; BP diastolic 42–64; PULSE 60–92; RESP 21–114; TEMP 36.8–38; O2SAT 92–97
[2024-06-17 00:24] LABS: Glucose Point of Care 132 mg/dl (65-105)
[2024-06-17] MEDS: IPRATROPIUM 0.5 MG/ALBUTEROL SULFATE 2.5 MG AMPUL.NEB 3 ML INHALATION ×5 (01:48→19:48)
[2024-06-17] MEDS: FENTANYL 2,500MCG/NS250ML(*CRX 2,500 MCG/250 ML BAG IV CONT (04:23)
[2024-06-17] MEDS: MIDAZOLAM 100MG/NS 100ML(*CRX) 100 MG/100 ML BAG IV CONT (04:25)
[2024-06-17 04:46] LABS: Alveolar/Arterial O2 Gradient 163.2 mmHg; Carboxyhemoglobin 0.6 % THb (0-2.0); Fractional Inspired Oxygen 40 %; HCO3 ABG 26.1 mEq/l (22.0-26.0); Methemoglobin ABG 0.2 %THb (0-1.5); Oxyhemoglobin 95.1 % THb (90.0-100.0); PCO2 ABG 38.7 mmHg (35.0-45.0); PO2 ABG 77.5 mmHg (80.0-100.0); PO2 FiO2 Ratio Arterial Blood 1.94 %; Reduced Hemoglobin 4.1 %THb (0-5.0); Total Hemoglobin 11.2 g/dL (12.0-18.0); pH ABG 7.446 (7.350-7.450)
[2024-06-17 04:47] LABS: Arterial Blood Gas PEEP 8 cmH2O; Arterial Blood Gas Tidal Volume 400 ml; Arterial Blood Gas Vent Mode CMV; Arterial Blood Gas Ventilator rate 20 /MIN; Device VENTILATOR; Modified Allen's Test Pass; Site Drawn RIGHT RADIAL
[2024-06-17 05:27] LABS: Basophils Percent Auto 0.3 % (0.2-1.2); Eosinophils Absolute Auto 0.2 K/mm3 (0-0.3); Eosinophils Percent Auto 1.4 % (0-4.4); Hematocrit 31.8 % (37.0-47.0); Hemoglobin 10.1 g/dL (12.0-15.0); Immature Granulocyte Absolute 0.17 K/mm3 (0.00-0.031); Immature Granulocyte Percent A 1.1 % (0-0.5); Lymphocytes Absolute Auto 1.18 K/mm3 (0.9-3.2); Lymphocytes Percent Auto 7.6 % (18.3-44.2); Mean Corpuscular HGB Conc 31.8 g/dl (32-36); Mean Corpuscular Hemoglobin 27.4 pg (26-34); Mean Corpuscular Volume 86.2 fl (80-100); Mean Platelet Volume 9.7 fl (7.4-10.4); Monocytes Absolute Auto 1.5 K/mm3 (0.1-0.6); Monocytes Percent Auto 9.6 % (2.6-8.5); Neutrophils Absolute Auto 12.4 K/mm3 (1.3-6.7); Platelet Count Result 347 k/mm3 (150-375); Red Blood Count 3.69 M/mm3 (4.2-5.4); Red Cell Distribution Width 19.2 % (11.5-14.5); White Blood Count 15.5 K/mm3 (4.5-10.0)
[2024-06-17] MEDS: CENTRAL LINE FLUSH 10 ML IV PUSH ×3 (05:29→21:37)
[2024-06-17 05:44] LABS: Alanine Aminotransferase 80 U/L (6-35); Albumin Level 3.4 g/dL (3.5-5.1); Alkaline Phosphatase 309 U/L (38-126); Anion Gap 15 mmol/L (4-12); Aspartate Amino Transferase 146 U/L (14-36); Bilirubin,Total 1.5 mg/dL (0.2-1.3); Blood Urea Nitrogen 83 mg/dL (7-17); Carbon Dioxide 21 mmol/L (22-30); Chloride 96 mmol/L (98-107); Estimated CRCL calculation 19 ml/min; Estimated Glomerular Filt Rate 9; Glucose 169 mg/dL (65-110); Magnesium 2.5 mg/dL (1.6-2.3); Phosphorus 5.1 mg/dL (2.5-4.5); Potassium 4.6 mmol/L (3.4-5.0); Sodium 132 mmol/L (137-145)
[2024-06-17] MEDS: PANTOPRAZOLE SODIUM IV 40 MG VIAL IV PUSH ×2 (08:18→21:36)
[2024-06-17] MEDS: MINERAL OIL/WHITE PETROLATUM OINTMENT 1 APPLIC EACH EYE ×2 (08:18→21:37)
[2024-06-17] MEDS: APIXABAN 5 MG TABLET PO ×2 (08:18→21:36)
[2024-06-17] MEDS: AMIODARONE HCL 200 MG TABLET PO ×2 (08:18→21:36)
[2024-06-17] MEDS: MIDODRINE HCL 10 MG TABLET PO ×3 (08:18→21:36)
--- NOTE | 2024-06-17 08:35 | P.PNNP_ITS ---
Progress Note: A&P Assessment and Plan (1) JOVI (acute kidney injury): Code(s): N17.9 - Acute kidney failure, unspecified Status: Acute Assessment and Plan: * normal creatinine ~ 1 month ago * admitted with a creatinine of 2.1mg/dl * Now dialysis dependent * evaluation to date noted: * renal ultrasound negative for obstruction * urine eosinophils negative * urine electrolytes pre-renal (in spite of evidence of volume overload) * CPK low * moderate proteinuria (~ 600mg) * UA with blood and protein (and negative urine culture) * complements normal (arguing against lupus flare) * due to multifactorial ATN: * hemodynamic instability/shock * sepsis * infection (UTI +/- pneumonia) -- although culture negative to date * hypoxia * SLE flare (?) With the hemodynamic issues plus sepsis it is less likely that this is a lupus flare however even if there was a flare we could not treat it because of the infection. * has been dialysis dependent since 06/05 * She received dry ultrafiltration yesterday and about 4L was removed. * Her blood pressure seems to be doing about the same today. She does still require norepinephrine at 7 * Will do another dialysis tomorrow (2) Acute respiratory failure: Code(s): J96.00 - Acute respiratory failure, unspecified whether with hypoxia or hypercapnia Status: Acute Assessment and Plan: * intubated on 06/05 for impending respiratory failure * failed BiPAP therapy * ABG with noted hypercapnea and hypoxia * secondary to pulmonary edema, diffuse bilateral infiltrates and ARDS * on bronchodilators * weaned off steroids * continue daily dialyis/dry ultrafiltration for fluid removal * almost 16L negative since dialysis initiated.... * Her chest x-ray today shows improvement in infiltrate * Still on only 40% FiO2, minute volume of around 8, and PEEP of 8 (3) Septic shock: Code(s): A41.9 - Sepsis, unspecified organism; R65.21 - Severe sepsis with septic shock Status: Acute Assessment and Plan: * initially thought to be secondary to UTI and pneumonia * remains on low dose levophed therapy to maintain MAP * Echo results noted * continue midodrine * culture data noted: * blood/urine cultures from 06/02 negative * blood culture 06/06 with E. coli and Staph epidermidis * urine culture on 06/06 negative. * blood culture on 06/08 negative * off all antibiotics at this time (since 06/12) * Will check a cortisol level * wean levophed as tolerated (4) Pulmonary edema: Code(s): J81.1 - Chronic pulmonary edema Status: Acute Assessment and Plan: * contributing to #2 * secondary to JOVI/ARF but ARDS an issues as well * failed diuretic therapy * HD alternating with DUF for daily fluid removal * On 40% oxygen with 8 of PEEP. * Gradual improvement noted on chest x-ray (5) Afib: Code(s): I48.91 - Unspecified atrial fibrillation Status: Acute Assessment and Plan: * Heart rate in the 70s and 80s * on amiodarone and Eliquis (6) Liver cirrhosis secondary to HOFFMANN: Code(s): K75.81 - Nonalcoholic steatohepatitis (HOFFMANN); K74.60 - Unspecified cirrhosis of liver Status: Acute Assessment and Plan: * known history * normal liver by recent imaging * noted elevations in AST/ALT that have been up and down * fluctuating LFTS thought to be more related to congestion/volume overload * continue to follow (7) Type 2 diabetes mellitus: Code(s): E11.9 - Type 2 diabetes mellitus without complications Status: Acute Assessment and Plan: * follow accu-cheks * glycemic control per pier worker/hospitalist Subjective Date/time seen: 06/17/24 08:35 Interval history: Ariana is lying comfortably in bed on the ventilator. Sedatives were stopped a few minutes ago to assess mental status. Exam Narrative: WDWN in NAD skin no rash or subQ nodules head ncat lungs mildly coarse and symmetric cor reg no rub or gallop abd BS+ nontender and soft ext 1 to 2+ bilateral edema. Objective Data Vital Signs Vital Signs: Vital Signs - 24 hr 06/16/24 09:00 06/16/24 09:15 06/16/24 09:45 Temperature Pulse Rate 72 72 68 Respiratory Rate Blood Pressure 118/52 L 118/57 L 116/50 L Pulse Oximetry Oxygen Delivery Fraction of Inspired Oxygen 06/16/24 10:00 06/16/24 10:15 06/16/24 10:30 Temperature Pulse Rate 68 67 67 Respiratory Rate Blood Pressure 111/51 L 115/48 L 118/55 L Pulse Oximetry Oxygen Delivery Fraction of Inspired Oxygen 06/16/24 10:45 06/16/24 11:01 06/16/24 11:15 Temperature Pulse Rate 68 68 66 Respiratory Rate Blood Pressure 119/55 L 109/56 L 117/56 L Pulse Oximetry Oxygen Delivery Fraction of Inspired Oxygen 06/16/24 08:45 06/16/24 09:30 06/16/24 11:05 Temperature Pulse Rate 71 72 67 Respiratory Rate Blood Pressure 117/53 L 114/55 L Pulse Oximetry 94 Oxygen Delivery Mechanical Ventilation Fraction of Inspired Oxygen 40 06/16/24 11:52 06/16/24 11:26 06/16/24 11:30 Temperature 98.4 F Pulse Rate 68 66 68 Respiratory Rate 20 Blood Pressure 116/53 L 118/47 L Pulse Oximetry 96 Oxygen Delivery Fraction of Inspired Oxygen 06/16/24 10:00 06/16/24 12:00 06/16/24 12:30 Temperature Pulse Rate 67 66 69 Respiratory Rate Blood Pressure 111/51 L 117/55 L 108/50 L Pulse Oximetry Oxygen Delivery Fraction of Inspired Oxygen 06/16/24 13:32 06/16/24 13:34 06/16/24 10:00 Temperature Pulse Rate 73 73 66 Respiratory Rate 28 H 25 H Blood Pressure Pulse Oximetry 94 Oxygen Delivery Mechanical Ventilation Fraction of Inspired Oxygen 40 06/16/24 11:50 06/16/24 13:00 06/16/24 13:57 Temperature Pulse Rate 68 70 72 Respiratory Rate 26 H 26 H 26 H Blood Pressure Pulse Oximetry Oxygen Delivery Fraction of Inspired Oxygen 06/16/24 10:00 06/16/24 11:00 06/16/24 12:00 Temperature Pulse Rate 67 65 66 Respiratory Rate 25 H 24 H 26 H Blood Pressure Pulse Oximetry Oxygen Delivery Fraction of Inspired Oxygen 06/16/24 14:00 06/16/24 14:14 06/16/24 14:23 Temperature Pulse Rate 72 72 70 Respiratory Rate 25 H Blood Pressure 119/55 L Pulse Oximetry 95 Oxygen Delivery Mechanical Ventilation Fraction of Inspired Oxygen 40 06/16/24 14:40 06/16/24 15:47 06/16/24 10:00 Temperature Pulse Rate 69 70 67 Respiratory Rate 24 H 25 H Blood Pressure 119/53 L 111/51 L Pulse Oximetry 94 Oxygen Delivery Fraction of Inspired Oxygen 06/16/24 12:00 06/16/24 14:00 06/16/24 12:00 Temperature 98.2 F Pulse Rate 66 72 Respiratory Rate 26 H 25 H Blood Pressure 117/55 L 119/55 L Pulse Oximetry 96 95 Oxygen Delivery Fraction of Inspired Oxygen 40 06/16/24 12:20 06/16/24 14:30 06/16/24 16:00 Temperature Pulse Rate Respiratory Rate Blood Pressure Pulse Oximetry Oxygen Delivery Fraction of Inspired Oxygen 40 40 40 06/16/24 12:10 06/16/24 16:00 06/16/24 16:57 Temperature 97.9 F Pulse Rate 65 65 Respiratory Rate 26 H Blood Pressure 112/45 L 112/45 L Pulse Oximetry 94 Oxygen Delivery Fraction of Inspired Oxygen 40 06/16/24 16:57 06/16/24 16:00 06/16/24 17:23 Temperature Pulse Rate 65 65 69 Respiratory Rate 26 H 26 H Blood Pressure Pulse Oximetry 95 Oxygen Delivery Mechanical Ventilation Fraction of Inspired Oxygen 40 06/16/24 18:00 06/16/24 18:00 06/16/24 19:37 Temperature Pulse Rate 72 65 79 Respiratory Rate 24 H 31 H Blood Pressure 119/55 L 119/55 L Pulse Oximetry 95 Oxygen Delivery Fraction of Inspired Oxygen 06/16/24 19:38 06/16/24 20:03 06/16/24 20:08 Temperature Pulse Rate 78 74 75 Respiratory Rate 31 H 25 H Blood Pressure Pulse Oximetry 95 Oxygen Delivery Mechanical Ventilation Fraction of Inspired Oxygen 40 06/16/24 20:11 06/16/24 20:00 06/16/24 20:00 Temperature Pulse Rate 72 73 73 Respiratory Rate 24 H 25 H 25 H Blood Pressure Pulse Oximetry Oxygen Delivery Fraction of Inspired Oxygen 06/16/24 20:25 06/16/24 20:00 06/16/24 20:30 Temperature Pulse Rate 70 73 70 Respiratory Rate Blood Pressure 124/56 L 117/52 L Pulse Oximetry Oxygen Delivery Fraction of Inspired Oxygen 06/16/24 20:31 06/16/24 20:00 06/16/24 20:00 Temperature Pulse Rate 70 74 Respiratory Rate Blood Pressure 118/45 L Pulse Oximetry 96 Oxygen Delivery Mechanical Ventilation Fraction of Inspired Oxygen 40 06/16/24 20:00 06/16/24 20:00 06/16/24 22:00 Temperature Pulse Rate 74 68 Respiratory Rate 22 H Blood Pressure 117/52 L Pulse Oximetry 96 Oxygen Delivery Fraction of Inspired Oxygen 40 06/16/24 22:00 06/16/24 22:00 06/16/24 22:00 Temperature 99.9 F H Pulse Rate 68 68 68 Respiratory Rate 25 H 25 H 25 H Blood Pressure 114/45 L Pulse Oximetry 94 Oxygen Delivery Fraction of Inspired Oxygen 06/16/24 22:00 06/16/24 22:56 06/17/24 00:00 Temperature Pulse Rate 68 71 71 Respiratory Rate 25 H Blood Pressure 114/45 L Pulse Oximetry 95 Oxygen Delivery Mechanical Ventilation Fraction of Inspired Oxygen 40 06/17/24 00:00 06/17/24 00:00 06/17/24 00:00 Temperature Pulse Rate 71 71 70 Respiratory Rate 25 H Blood Pressure 112/50 L Pulse Oximetry Oxygen Delivery Fraction of Inspired Oxygen 06/17/24 00:15 06/17/24 00:00 06/17/24 00:00 Temperature Pulse Rate 70 Respiratory Rate Blood Pressure 115/53 L Pulse Oximetry 93 Oxygen Delivery Mechanical Ventilation Fraction of Inspired Oxygen 40 40 06/17/24 00:00 06/17/24 01:49 06/17/24 01:52 Temperature 99.8 F H Pulse Rate 70 78 77 Respiratory Rate 26 H 26 H Blood Pressure 112/50 L Pulse Oximetry 93 95 Oxygen Delivery Mechanical Ventilation Fraction of Inspired Oxygen 40 06/17/24 01:55 06/17/24 02:05 06/17/24 02:00 Temperature Pulse Rate 77 76 76 Respiratory Rate 26 H 27 H Blood Pressure 110/44 L Pulse Oximetry Oxygen Delivery Fraction of Inspired Oxygen 06/17/24 02:00 06/17/24 02:00 06/17/24 02:00 Temperature Pulse Rate 76 76 76 Respiratory Rate 27 H 27 H Blood Pressure 110/44 L Pulse Oximetry 97 Oxygen Delivery Fraction of Inspired Oxygen 06/17/24 02:15 06/17/24 02:58 06/17/24 03:00 Temperature Pulse Rate 72 76 75 Respiratory Rate 24 H Blood Pressure 102/46 L 101/42 L Pulse Oximetry Oxygen Delivery Fraction of Inspired Oxygen 06/17/24 03:00 06/17/24 03:16 06/17/24 03:30 Temperature Pulse Rate 75 71 68 Respiratory Rate 24 H Blood Pressure 102/42 L 108/46 L Pulse Oximetry Oxygen Delivery Fraction of Inspired Oxygen 06/17/24 04:10 06/17/24 04:10 06/17/24 04:00 Temperature Pulse Rate 89 89 72 Respiratory Rate 29 H 29 H Blood Pressure 109/48 L Pulse Oximetry Oxygen Delivery Fraction of Inspired Oxygen 06/17/24 04:16 06/17/24 04:23 06/17/24 04:23 Temperature Pulse Rate 92 86 86 Respiratory Rate 34 H 34 H Blood Pressure 125/64 Pulse Oximetry Oxygen Delivery Fraction of Inspired Oxygen 06/17/24 04:25 06/17/24 04:25 06/17/24 04:33 Temperature Pulse Rate 85 85 86 Respiratory Rate 25 H 25 H Blood Pressure 106/43 L Pulse Oximetry Oxygen Delivery Fraction of Inspired Oxygen 06/17/24 04:00 06/17/24 04:00 06/17/24 04:00 Temperature 100.3 F H Pulse Rate 78 78 Respiratory Rate 27 H Blood Pressure 109/48 L Pulse Oximetry 96 Oxygen Delivery Fraction of Inspired Oxygen 40 06/17/24 04:00 06/17/24 04:45 06/17/24 04:45 Temperature Pulse Rate 80 80 Respiratory Rate 28 H Blood Pressure 109/44 L Pulse Oximetry 96 Oxygen Delivery Mechanical Ventilation Fraction of Inspired Oxygen 40 06/17/24 04:45 06/17/24 06:03 06/17/24 06:04 Temperature Pulse Rate 80 80 80 Respiratory Rate 28 H 28 H 28 H Blood Pressure Pulse Oximetry Oxygen Delivery Fraction of Inspired Oxygen 06/17/24 06:04 06/17/24 05:30 06/17/24 06:00 Temperature Pulse Rate 80 71 80 Respiratory Rate Blood Pressure 118/51 L Pulse Oximetry 95 Oxygen Delivery Mechanical Ventilation Fraction of Inspired Oxygen 40 06/17/24 06:00 06/17/24 06:16 06/17/24 07:09 Temperature 100.0 F H Pulse Rate 80 77 74 Respiratory Rate 28 H 26 H Blood Pressure 118/57 L 113/50 L Pulse Oximetry 93 Oxygen Delivery Fraction of Inspired Oxygen 06/17/24 07:09 06/17/24 07:18 06/17/24 07:44 Temperature Pulse Rate 74 73 74 Respiratory Rate 26 H 27 H Blood Pressure 113/47 L Pulse Oximetry Oxygen Delivery Fraction of Inspired Oxygen 06/17/24 07:50 06/17/24 07:53 06/17/24 07:53 Temperature Pulse Rate 77 77 Respiratory Rate 25 H Blood Pressure Pulse Oximetry 96 96 Oxygen Delivery Mechanical Ventilation Mechanical Ventilation Fraction of Inspired Oxygen 40 40 06/17/24 08:17 06/17/24 08:18 06/17/24 08:00 Temperature Pulse Rate 82 82 76 Respiratory Rate 27 H Blood Pressure 118/49 L Pulse Oximetry Oxygen Delivery Fraction of Inspired Oxygen 06/17/24 08:00 Temperature Pulse Rate 76 Respiratory Rate 27 H Blood Pressure Pulse Oximetry Oxygen Delivery Fraction of Inspired Oxygen Intake/Output Intake/Output: Intake & Output 06/14/24 06/15/24 06/16/24 06/17/24 23:59 23:59 23:59 23:59 Intake Total 1649.7 2649.6 822.4 720.0 Output Total 3110 4200 4181 50 Balance -1460.3 -1550.4 -3358.6 670.0 Meds/Results Medications: Active Medications Generic Name Dose Route Start Last Admin Trade Name Freq PRN Reason Stop Dose Admin Acetaminophen 650 mg 06/07/24 21:53 06/07/24 22:30 Acetaminophen Elixir 325 Mg/10.15 Ml Udc PO 650 mg Q6H PRN Administration Mild Pain (1-3) or Fever Albuterol/Ipratropium 3 ml 06/05/24 11:15 06/17/24 07:43 Ipratropium 0.5 Mg/Albuterol Sulfate 2.5 Mg Ampul.Neb 3 Ml INHALATION 3 ml Q6HRT JOHN Administration Amiodarone HCl 200 mg 06/02/24 21:00 06/17/24 08:18 Amiodarone Hcl 200 Mg Tablet PO 200 mg Q12HR JOHN Administration Apixaban 5 mg 06/06/24 09:30 06/17/24 08:18 Apixaban 5 Mg Tablet PO 5 mg Q12HR JOHN Administration Dextrose 12.5 gm 06/05/24 11:46 Dextrose 50% 25 Gm/50 Ml Syringe IV PUSH PRN PRN Hypoglycemia Protocol Glucagon 1 mg 06/05/24 11:46 Glucagon For Inj 1 Mg Vial IM PRN PRN Hypoglycemia Protocol Glucose 15 gm 06/05/24 11:46 Glucose Oral Gel 15 Gm Of Glucse In 37.5 Gm Tube PO PRN PRN Hypoglycemia Protocol Norepinephrine Bitartrate 8 mg in 250 mls @ 11.25 mls/hr 06/05/24 00:35 06/17/24 08:17 Levophed 8 Mg/D5w 250 Ml IV CONT 6 mcg/min .[id number] JOHN 11.25 mls/hr Titration Protocol 6 MCG/MIN Fentanyl Citrate 2,500 mcg in 250 mls @ 0 mls/hr 06/05/24 08:35 06/17/24 08:00 Fentanyl 2,500 Mcg/Ns 250 Ml IV CONT 0 mcg/hr .Q0M JOHN 0 mls/hr Titration Protocol Midazolam HCl 100 mg in 100 mls @ 0 mls/hr 06/05/24 08:35 06/17/24 08:00 Versed 100 Mg/Ns 100 Ml IV CONT 0 mg/hr .Q0M JOHN 0 mls/hr Titration Protocol Dextrose 1,000 mls @ 100 mls/hr 06/05/24 11:46 Dextrose 5% 1,000 Ml IVPB PRN PRN Hypoglycemia Protocol Albumin Human 50 mls @ 999 mls/hr 06/08/24 09:50 06/12/24 11:39 Albutein IVPB 07/08/24 09:49 Infused Q10M PRN Infusion HYPOTENSION Insulin Aspart 3 - 6 units 06/05/24 12:00 06/17/24 05:56 Insulin Aspart (*Bkc) 100 Units/Ml SUB-Q Not Given Q6HR JOHN Protocol Midodrine 10 mg 06/05/24 09:00 06/17/24 08:18 Midodrine Hcl 10 Mg Tablet PO 10 mg TID JOHN Administration Multi-Ingred Cream/Lotion/Oil/Oint 1 applic 06/05/24 09:00 06/17/24 08:18 Mineral Oil/White Petrolatum Ointment EACH EYE 1 applic Q12HR JOHN Administration Ondansetron HCl 4 mg 06/11/24 07:47 06/11/24 13:40 Ondansetron Inj 4 Mg/2 Ml Vial IV PUSH 4 mg Q6H PRN Administration Nausea And Vomiting Pantoprazole Sodium 40 mg 06/06/24 09:00 06/17/24 08:18 Pantoprazole Sodium Iv 40 Mg Vial IV PUSH 40 mg Q12HR JOHN Administration Fluticasone/Salmeterol 2 puff 06/03/24 08:00 06/14/24 12:38 Fluticasone/Salmeterol 115-21 Mcg Inhaler 1 Puff INHALATION Not Given Q12HRT JOHN Sodium Chloride 10 ml 06/05/24 06:00 06/17/24 05:29 Central Line Flush IV PUSH 10 ml Q8HR JOHN Administration Sodium Chloride 20 ml 06/05/24 03:12 Central Line Flush IV PUSH PRN PRN after blood draws Umeclidinium [place] 1 puff 06/03/24 08:00 06/14/24 12:38 Umeclidinium [place] 62.5 Mcg Ellipta INHALATION Not Given DAILYRT [facility] Radiology Results: ITS Impressions Renal Ultrasound 06/04/24 15:06 IMPRESSION: 1. Normal kidneys. No hydronephrosis. Chest/Abdomen/Pelvis CT 06/04/24 19:12 IMPRESSION: 1. Diffuse lung disease, consistent with pulmonary edema versus pneumonia. 2. Moderate volume of ascites. Venous Doppler Study 06/07/24 17:01 IMPRESSION: 1. No deep venous thrombosis. Abdomen Ultrasound 06/10/24 14:47 IMPRESSION: Fat infiltration. Enlarged left lobe of the liver. Slightly thickened wall of the gallbladder. Trace of ascites. Otherwise, normal Limited ultrasound of the abdomen. Abdomen X-Ray 06/16/24 13:54 IMPRESSION: 1. Nasogastric tube tip in the stomach. 2. Nonobstructive bowel gas pattern. 3. Diffuse lung disease, consistent with pulmonary edema versus pneumonia. 4. Cardiomegaly. Chest X-Ray 06/17/24 06:05 IMPRESSION: 1. Diffuse lung disease with interval improvement, consistent with pulmonary edema versus pneumonia. 2. Cardiomegaly. Labs Labs: Laboratory Results - last 24 hr 06/16/24 06/16/24 06/17/24 14:08 17:17 00:07 WBC RBC Hgb Hct MCV MCH MCHC RDW Plt Count MPV Immature Gran % (Auto) Neut % (Auto) Lymph % (Auto) [place] % (Auto) Eos % (Auto) Baso % (Auto) Lymph # (Auto) [place] # (Auto) Eos # (Auto) Baso # (Auto) Abs Immat Gran (auto) Absolute Neuts (auto) Absolute Nucleated RBC Nucleated RBC % Puncture Site ABG pH ABG pCO2 ABG pO2 ABG PO2/FiO2 Ratio ABG HCO3 ABG O2 Saturation ABG O2 Content ABG Base Excess A-a Gradient Oxyhemoglobin Carboxyhemoglobin Methemoglobin Reduced Hemoglobin Total Hemoglobin O2 Delivery Device O2 Liters/Min Minute Volume Vent Rate Vent Mode FiO2 Tidal Volume PEEP Peak Inspir Pressure Pressure Support Sodium Potassium Chloride Carbon Dioxide Anion Gap BUN Creatinine Estim Creat Clear Calc Estimated GFR Glucose POC Capillary Glucose 143 H 138 H 132 H Calcium Phosphorus Magnesium Total Bilirubin AST ALT Alkaline Phosphatase Total Protein Albumin 06/17/24 06/17/24 04:34 05:20 WBC 15.5 H RBC 3.69 L Hgb 10.1 L Hct 31.8 L MCV 86.2 MCH 27.4 MCHC 31.8 L RDW 19.2 H Plt Count 347 MPV 9.7 Immature Gran % (Auto) 1.1 H Neut % (Auto) 80.0 H Lymph % (Auto) 7.6 L [place] % (Auto) 9.6 H Eos % (Auto) 1.4 Baso % (Auto) 0.3 Lymph # (Auto) 1.18 [place] # (Auto) 1.5 H Eos # (Auto) 0.2 Baso # (Auto) 0.0 Abs Immat Gran (auto) 0.17 H Absolute Neuts (auto) 12.4 H Absolute Nucleated RBC 0.000 Nucleated RBC % 0.0 Puncture Site Right radial ABG pH 7.446 ABG pCO2 38.7 ABG pO2 77.5 L ABG PO2/FiO2 Ratio 1.94 ABG HCO3 26.1 H ABG O2 Saturation 96.0 ABG O2 Content 15.0 L ABG Base Excess 2.0 A-a Gradient 163.2 Oxyhemoglobin 95.1 Carboxyhemoglobin 0.6 Methemoglobin 0.2 Reduced Hemoglobin 4.1 Total Hemoglobin 11.2 L O2 Delivery Device Ventilator O2 Liters/Min Not Reportable Minute Volume Not Reportable Vent Rate 20 Vent Mode Cmv FiO2 40 Tidal Volume 400 PEEP 8 Peak Inspir Pressure Not Reportable Pressure Support Not Reportable Sodium 132 L Potassium 4.6 Chloride 96 L Carbon Dioxide 21 L Anion Gap 15 H BUN 83 H D Creatinine 4.80 H Estim Creat Clear Calc 19 Estimated GFR 9 L Glucose 169 H POC Capillary Glucose Calcium 10.0 Phosphorus 5.1 H Magnesium 2.5 H Total Bilirubin 1.5 H AST 146 H ALT 80 H Alkaline Phosphatase 309 H Total Protein 7.0 Albumin 3.4 L
--- NOTE | 2024-06-17 09:39 | P.PNINT_ITS ---
Progress Note: A&P Assessment and Plan (1) Acute respiratory failure: Code(s): J96.00 - Acute respiratory failure, unspecified whether with hypoxia or hypercapnia Status: Acute Assessment and Plan: Chest x-ray bilateral diffuse pulmonary infiltrates/pulmonary edema. Patient was placed on BiPAP. ABG showed hypercapnic and hypoxemic respiratory failure. Etiology pulmonary edema, pneumonia, ARDS -06/05: patient intubated for impending respiratory failure. Intubation was slightly challenging secondary to body habitus, small mouth, large tongue, redundant tissue in the hypopharynx and anterior vocal cords requiring cricoid pressure and use of glide scope. -currently on CMV mode of ventilation, currently on PEEP down to 8, 40% FiO2, -chest x-ray reviewed and shows improvement although still has diffuse bilateral infiltrates although there has been improvement -continue bronchodilators - fentanyl and Versed infusion for analgosedation, will maintain RASS of -2 -patient has significant volume overload and need additional fluid removed patient is being dialyzed again today. -sedation vacation, may start Precedex if required -will place patient on ASV for now, will try pressure support ventilation after she comes back from the CT scan (2) Septic shock: Code(s): A41.9 - Sepsis, unspecified organism; R65.21 - Severe sepsis with septic shock Status: Acute Assessment and Plan: Septic shock could be related to UTI, pneumonia -patient was hypotensive in the intermediate Unit and was transferred to the ICU which she received fluids, albumin -continue norepinephrine, will maintain MAP > 65 mmHg or SBP > 100 mmHg adequate end organ perfusion -off vasopressin since 06/06/2024 evening -off vancomycin -completed cefepime for a total of 7 days -fluconazole was discontinued given her renal dysfunction -off stress dose steroids -continue midodrine -06/17: CT chest abdomen and pelvis for ongoing leukocytosis and vasopressor requirement. Will also obtain right lower extremity venous Dopplers since patient has a right lower extremity is erythematous, slightly swollen. 06/05/2024: Echocardiogram Summary 1. Left ventricular chamber dimension is normal. 2. Left ventricular systolic function is normal, estimated at 65-70%. 3. The left ventricular diastolic function is grade I diastolic dysfunction. 4. Right ventricular chamber dimension is moderately enlarged. 5. Right ventricular systolic function is normal. 6. Left atrial chamber dimension is moderately enlarged. 7. Right atrial chamber dimension is moderately enlarged. 8. There is mild to moderate tricuspid valve regurgitation. (3) JOVI (acute kidney injury): Code(s): N17.9 - Acute kidney failure, unspecified Status: Acute Assessment and Plan: Patient with acute kidney injury, with increase creatinine to 4.60 (creatinine on admission on 06/02/2024 was 2.10 and her creatinine on 04/26/2024 was 0.90) -etiology for acute kidney injury could be multifactorial, hypotension, shock, sepsis, UTI/pneumonia, hypoxia,? SLE flare, CHF, -CK levels are within normal limits -urine eosinophils were negative -urine electrolytes showed prerenal picture, patient seems to be volume overloaded -status post given IV fluids and albumin, will hold fluids for now -discussed with concaving machine operator at [facility], feels that the patient is unstable to be transferred at this time for CRRT, recommended conventional dialysis. -discussed with county health officer at [facility], agrees to conventional dialysis at this time -06/05: dialysis catheter was placed in the right IJ and exchange for the central line -06/05: Initiated dialysis, with 3000 mL of fluid removal -06/06: Dialysis with 3000 mL in fluid removal -06/07: Dialysis with 3700 mL in fluid removal -06/08: Dialysis with 2900 mL in fluid removal -06/09: Dialysis with 3000 mL in fluid removal -06/10: No dialysis -06/12: Patient was dialyzed and 3.1 P L fluid was removed -06/13 getting dialyzed again today. 4 L removed - 06/14: 3000 mL removed - 06/15: 4000 mL fluid was removed - 06/16: 4000 mL in fluid removal with dialysis (4) Pulmonary edema: Code(s): J81.1 - Chronic pulmonary edema Status: Acute Assessment and Plan: Pulmonary edema likely related to acute kidney injury, ARDS, -did not respond to Bumex -continue fluid removal with dialysis (5) Type 2 diabetes mellitus: Code(s): E11.9 - Type 2 diabetes mellitus without complications Status: Acute Assessment and Plan: SSI and accucheks HbA1C is 5.7 this admission (6) Afib: Code(s): I48.91 - Unspecified atrial fibrillation Status: Acute Assessment and Plan: continue amiodarone and Eliquis - flecainide was stopped (7) SLE (systemic lupus erythematosus): Code(s): M32.9 - Systemic lupus erythematosus, unspecified Status: Acute Assessment and Plan: Off steroids (8) Liver cirrhosis secondary to HOFFMANN: Code(s): K75.81 - Nonalcoholic steatohepatitis (HOFFMANN); K74.60 - Unspecified cirrhosis of liver Status: Acute Assessment and Plan: Continues to have mild elevation in LFTs and bilirubin which is stable 06/10/2024: RUQ ultrasound: Fat infiltration. Enlarged left lobe of the liver. Slightly thickened wall of the gallbladder. Trace of ascites. Otherwise, normal Limited ultrasound of the abdomen. -06/10/2024: Hepatitis panel is negative -continue to monitor (9) GERD (gastroesophageal reflux disease): Code(s): K21.9 - Gastro-esophageal reflux disease without esophagitis Status: Acute Assessment and Plan: Continue Protonix (10) Morbid obesity with BMI of 50.0-59.9, adult: Code(s): E66.01 - Morbid (severe) obesity due to excess calories; Z68.43 - Body mass index [BMI] 50.0-59.9, adult Status: Acute Assessment and Plan: Once extubated she will need lifestyle changes Plan DVT prophylaxis: Eliquis Stress ulcer prophylaxis: Protonix Nutrition: Tube feeds at goal and tolerating Code Status: Full code Critical Care Time Spent: 34 minutes Due to a high probability of clinically significant, life threatening deterioration, the patient required my highest level of preparedness to intervene emergently and I personally spent this critical care time directly and personally managing the patient. This critical care time included obtaining a history; examining the patient; pulse oximetry; ordering and review of studies; arranging urgent treatment with development of a management plan; evaluation of patient's response to treatment; frequent reassessment; and discussions with other providers. It was exclusive of separately billable procedures and treating other patients and teaching time. Please see Assessment and Plan section and the rest of the note for further information on patient assessment and treatment This dictation may have been done utilizing a voice recognition system. Attempts have been made to correct errors. However, there may be uncorrected grammatical, spelling, and recognitions errors present. Subjective Date/time seen: 06/17/24 09:39 Interval history: Reason for consult: Acute respiratory failure, septic shock, acute kidney injury, pulmonary edema 06/05: Intubated 06/17/2024: Patient seen and examined the ICU, remains intubated on CMV mode of ventilation peep of 8, 40% FiO2. Sedated with fentanyl and Versed infusion, patient is awake, follows simple commands in all extremities and nods to questions. Remains oliguric. Remains on Levophed at 4-8 mcg/min. At 4000 mL in fluid removal with dialysis yesterday Review of Systems Review of Systems: ROS unobtainable: Yes unobtainable due to endotracheal tube, unobtainable due to medical condition and unobtainable due to mental status Exam Narrative: General: Morbidly obese female currently intubated and sedated in no acute distress HEENT:? Pupils equal and reactive bilaterally, sclera is clear, ETT in place Neck:, short and thick neck, Respiratory:? Decreased and coarse breath sounds bilaterally, no wheezing, Cardiac:? S1-S2 is normal, regular rate and rhythm Abdomen:? Morbid obesity, soft, hypoactive bowel sounds tenderness in right upper quadrant Extremities:? Bilateral lower extremity pitting edema improving, wrinkling of skin on the feet are noted, palpable pedal pulses. Right calf is warm, erythematous, nontender Neuro:? Patient is intubated, sedated, opens her eyes, follows simple commands in all extremities and nods to questions Skin:? Erythema in the intertriginous region and under her pannus, skin is dry and warm Psych:? Unable to assess at this time Objective Data Vital Signs Vital Signs: Vital Signs - 24 hr 06/16/24 09:45 06/16/24 10:00 06/16/24 10:15 Temperature Pulse Rate 68 68 67 Respiratory Rate Blood Pressure 116/50 L 111/51 L 115/48 L Pulse Oximetry Oxygen Delivery Fraction of Inspired Oxygen 06/16/24 10:30 06/16/24 10:45 06/16/24 11:01 Temperature Pulse Rate 67 68 68 Respiratory Rate Blood Pressure 118/55 L 119/55 L 109/56 L Pulse Oximetry Oxygen Delivery Fraction of Inspired Oxygen 06/16/24 11:15 06/16/24 11:05 06/16/24 11:52 Temperature Pulse Rate 66 67 68 Respiratory Rate Blood Pressure 117/56 L Pulse Oximetry 94 Oxygen Delivery Mechanical Ventilation Fraction of Inspired Oxygen 40 06/16/24 11:26 06/16/24 11:30 06/16/24 10:00 Temperature 98.4 F Pulse Rate 66 68 67 Respiratory Rate 20 Blood Pressure 116/53 L 118/47 L 111/51 L Pulse Oximetry 96 Oxygen Delivery Fraction of Inspired Oxygen 06/16/24 12:00 06/16/24 12:30 06/16/24 13:32 Temperature Pulse Rate 66 69 73 Respiratory Rate 28 H Blood Pressure 117/55 L 108/50 L Pulse Oximetry Oxygen Delivery Fraction of Inspired Oxygen 06/16/24 13:34 06/16/24 10:00 06/16/24 11:50 Temperature Pulse Rate 73 66 68 Respiratory Rate 25 H 26 H Blood Pressure Pulse Oximetry 94 Oxygen Delivery Mechanical Ventilation Fraction of Inspired Oxygen 40 06/16/24 13:00 06/16/24 13:57 06/16/24 10:00 Temperature Pulse Rate 70 72 67 Respiratory Rate 26 H 26 H 25 H Blood Pressure Pulse Oximetry Oxygen Delivery Fraction of Inspired Oxygen 06/16/24 11:00 06/16/24 12:00 06/16/24 14:00 Temperature Pulse Rate 65 66 72 Respiratory Rate 24 H 26 H 25 H Blood Pressure Pulse Oximetry Oxygen Delivery Fraction of Inspired Oxygen 06/16/24 14:14 06/16/24 14:23 06/16/24 14:40 Temperature Pulse Rate 72 70 69 Respiratory Rate Blood Pressure 119/55 L 119/53 L Pulse Oximetry 95 Oxygen Delivery Mechanical Ventilation Fraction of Inspired Oxygen 40 06/16/24 15:47 06/16/24 10:00 06/16/24 12:00 Temperature 98.2 F Pulse Rate 70 67 66 Respiratory Rate 24 H 25 H 26 H Blood Pressure 111/51 L 117/55 L Pulse Oximetry 94 96 Oxygen Delivery Fraction of Inspired Oxygen 06/16/24 14:00 06/16/24 12:00 06/16/24 12:20 Temperature Pulse Rate 72 Respiratory Rate 25 H Blood Pressure 119/55 L Pulse Oximetry 95 Oxygen Delivery Fraction of Inspired Oxygen 40 40 06/16/24 14:30 06/16/24 16:00 06/16/24 12:10 Temperature Pulse Rate Respiratory Rate Blood Pressure Pulse Oximetry Oxygen Delivery Fraction of Inspired Oxygen 40 40 40 06/16/24 16:00 06/16/24 16:57 06/16/24 16:57 Temperature 97.9 F Pulse Rate 65 65 65 Respiratory Rate 26 H 26 H Blood Pressure 112/45 L 112/45 L Pulse Oximetry 94 Oxygen Delivery Fraction of Inspired Oxygen 06/16/24 16:00 06/16/24 17:23 06/16/24 18:00 Temperature Pulse Rate 65 69 72 Respiratory Rate 26 H 24 H Blood Pressure 119/55 L Pulse Oximetry 95 95 Oxygen Delivery Mechanical Ventilation Fraction of Inspired Oxygen 40 06/16/24 18:00 06/16/24 19:37 06/16/24 19:38 Temperature Pulse Rate 65 79 78 Respiratory Rate 31 H 31 H Blood Pressure 119/55 L Pulse Oximetry Oxygen Delivery Fraction of Inspired Oxygen 06/16/24 20:03 06/16/24 20:08 06/16/24 20:11 Temperature Pulse Rate 74 75 72 Respiratory Rate 25 H 24 H Blood Pressure Pulse Oximetry 95 Oxygen Delivery Mechanical Ventilation Fraction of Inspired Oxygen 40 06/16/24 20:00 06/16/24 20:00 06/16/24 20:25 Temperature Pulse Rate 73 73 70 Respiratory Rate 25 H 25 H Blood Pressure 124/56 L Pulse Oximetry Oxygen Delivery Fraction of Inspired Oxygen 06/16/24 20:00 06/16/24 20:30 06/16/24 20:31 Temperature Pulse Rate 73 70 70 Respiratory Rate Blood Pressure 117/52 L 118/45 L Pulse Oximetry Oxygen Delivery Fraction of Inspired Oxygen 06/16/24 20:00 06/16/24 20:00 06/16/24 20:00 Temperature Pulse Rate 74 Respiratory Rate Blood Pressure Pulse Oximetry 96 Oxygen Delivery Mechanical Ventilation Fraction of Inspired Oxygen 40 40 06/16/24 20:00 06/16/24 22:00 06/16/24 22:00 Temperature 99.9 F H Pulse Rate 74 68 68 Respiratory Rate 22 H 25 H Blood Pressure 117/52 L 114/45 L Pulse Oximetry 96 94 Oxygen Delivery Fraction of Inspired Oxygen 06/16/24 22:00 06/16/24 22:00 06/16/24 22:00 Temperature Pulse Rate 68 68 68 Respiratory Rate 25 H 25 H Blood Pressure 114/45 L Pulse Oximetry Oxygen Delivery Fraction of Inspired Oxygen 06/16/24 22:56 06/17/24 00:00 06/17/24 00:00 Temperature Pulse Rate 71 71 71 Respiratory Rate 25 H 25 H Blood Pressure Pulse Oximetry 95 Oxygen Delivery Mechanical Ventilation Fraction of Inspired Oxygen 40 06/17/24 00:00 06/17/24 00:00 06/17/24 00:15 Temperature Pulse Rate 71 70 70 Respiratory Rate Blood Pressure 112/50 L 115/53 L Pulse Oximetry Oxygen Delivery Fraction of Inspired Oxygen 06/17/24 00:00 06/17/24 00:00 06/17/24 00:00 Temperature 99.8 F H Pulse Rate 70 Respiratory Rate 26 H Blood Pressure 112/50 L Pulse Oximetry 93 93 Oxygen Delivery Mechanical Ventilation Fraction of Inspired Oxygen 40 40 06/17/24 01:49 06/17/24 01:52 06/17/24 01:55 Temperature Pulse Rate 78 77 77 Respiratory Rate 26 H 26 H Blood Pressure Pulse Oximetry 95 Oxygen Delivery Mechanical Ventilation Fraction of Inspired Oxygen 40 06/17/24 02:05 06/17/24 02:00 06/17/24 02:00 Temperature Pulse Rate 76 76 76 Respiratory Rate 27 H 27 H Blood Pressure 110/44 L Pulse Oximetry Oxygen Delivery Fraction of Inspired Oxygen 06/17/24 02:00 06/17/24 02:00 06/17/24 02:15 Temperature Pulse Rate 76 76 72 Respiratory Rate 27 H Blood Pressure 110/44 L 102/46 L Pulse Oximetry 97 Oxygen Delivery Fraction of Inspired Oxygen 06/17/24 02:58 06/17/24 03:00 06/17/24 03:00 Temperature Pulse Rate 76 75 75 Respiratory Rate 24 H 24 H Blood Pressure 101/42 L Pulse Oximetry Oxygen Delivery Fraction of Inspired Oxygen 06/17/24 03:16 06/17/24 03:30 06/17/24 04:10 Temperature Pulse Rate 71 68 89 Respiratory Rate 29 H Blood Pressure 102/42 L 108/46 L Pulse Oximetry Oxygen Delivery Fraction of Inspired Oxygen 06/17/24 04:10 06/17/24 04:00 06/17/24 04:16 Temperature Pulse Rate 89 72 92 Respiratory Rate 29 H Blood Pressure 109/48 L 125/64 Pulse Oximetry Oxygen Delivery Fraction of Inspired Oxygen 06/17/24 04:23 06/17/24 04:23 06/17/24 04:25 Temperature Pulse Rate 86 86 85 Respiratory Rate 34 H 34 H 25 H Blood Pressure Pulse Oximetry Oxygen Delivery Fraction of Inspired Oxygen 06/17/24 04:25 06/17/24 04:33 06/17/24 04:00 Temperature Pulse Rate 85 86 78 Respiratory Rate 25 H Blood Pressure 106/43 L Pulse Oximetry Oxygen Delivery Fraction of Inspired Oxygen 06/17/24 04:00 06/17/24 04:00 06/17/24 04:00 Temperature 100.3 F H Pulse Rate 78 Respiratory Rate 27 H Blood Pressure 109/48 L Pulse Oximetry 96 96 Oxygen Delivery Mechanical Ventilation Fraction of Inspired Oxygen 40 40 06/17/24 04:45 06/17/24 04:45 06/17/24 04:45 Temperature Pulse Rate 80 80 80 Respiratory Rate 28 H 28 H Blood Pressure 109/44 L Pulse Oximetry Oxygen Delivery Fraction of Inspired Oxygen 06/17/24 06:03 06/17/24 06:04 06/17/24 06:04 Temperature Pulse Rate 80 80 80 Respiratory Rate 28 H 28 H Blood Pressure 118/51 L Pulse Oximetry Oxygen Delivery Fraction of Inspired Oxygen 06/17/24 05:30 06/17/24 06:00 06/17/24 06:00 Temperature 100.0 F H Pulse Rate 71 80 80 Respiratory Rate 28 H Blood Pressure 118/57 L Pulse Oximetry 95 93 Oxygen Delivery Mechanical Ventilation Fraction of Inspired Oxygen 40 06/17/24 06:16 06/17/24 07:09 06/17/24 07:09 Temperature Pulse Rate 77 74 74 Respiratory Rate 26 H 26 H Blood Pressure 113/50 L Pulse Oximetry Oxygen Delivery Fraction of Inspired Oxygen 06/17/24 07:18 06/17/24 07:44 06/17/24 07:50 Temperature Pulse Rate 73 74 77 Respiratory Rate 27 H Blood Pressure 113/47 L Pulse Oximetry 96 Oxygen Delivery Mechanical Ventilation Fraction of Inspired Oxygen 40 06/17/24 07:53 06/17/24 07:53 06/17/24 08:17 Temperature Pulse Rate 77 82 Respiratory Rate 25 H Blood Pressure 118/49 L Pulse Oximetry 96 Oxygen Delivery Mechanical Ventilation Fraction of Inspired Oxygen 40 06/17/24 08:18 06/17/24 08:00 06/17/24 08:00 Temperature Pulse Rate 82 76 76 Respiratory Rate 27 H 27 H Blood Pressure Pulse Oximetry Oxygen Delivery Fraction of Inspired Oxygen 06/17/24 08:53 Temperature Pulse Rate 80 Respiratory Rate Blood Pressure Pulse Oximetry 96 Oxygen Delivery Mechanical Ventilation Fraction of Inspired Oxygen 40 Intake/Output Intake/Output: Intake & Output 06/14/24 06/15/24 06/16/24 06/17/24 23:59 23:59 23:59 23:59 Intake Total 1649.7 2649.6 822.4 720.0 Output Total 3110 4200 4181 50 Balance -1460.3 -1550.4 -3358.6 670.0 Meds/Results Medications: Active Medications Generic Name Dose Route Start Last Admin Trade Name Freq PRN Reason Stop Dose Admin Acetaminophen 650 mg 06/07/24 21:53 06/07/24 22:30 Acetaminophen Elixir 325 Mg/10.15 Ml Udc PO 650 mg Q6H PRN Administration Mild Pain (1-3) or Fever Albuterol/Ipratropium 3 ml 06/05/24 11:15 06/17/24 07:43 Ipratropium 0.5 Mg/Albuterol Sulfate 2.5 Mg Ampul.Neb 3 Ml INHALATION 3 ml Q6HRT JOHN Administration Amiodarone HCl 200 mg 06/02/24 21:00 06/17/24 08:18 Amiodarone Hcl 200 Mg Tablet PO 200 mg Q12HR JOHN Administration Apixaban 5 mg 06/06/24 09:30 06/17/24 08:18 Apixaban 5 Mg Tablet PO 5 mg Q12HR JOHN Administration Dextrose 12.5 gm 06/05/24 11:46 Dextrose 50% 25 Gm/50 Ml Syringe IV PUSH PRN PRN Hypoglycemia Protocol Epoetin Shayan-epbx 10,000 units 06/18/24 09:00 Epoetin Shayan-Epbx 10,000 Units/Ml Vial IV PUSH MOWEFR@09 JOHN Glucagon 1 mg 06/05/24 11:46 Glucagon For Inj 1 Mg Vial IM PRN PRN Hypoglycemia Protocol Glucose 15 gm 06/05/24 11:46 Glucose Oral Gel 15 Gm Of Glucse In 37.5 Gm Tube PO PRN PRN Hypoglycemia Protocol Norepinephrine Bitartrate 8 mg in 250 mls @ 11.25 mls/hr 06/05/24 00:35 06/17/24 08:17 Levophed 8 Mg/D5w 250 Ml IV CONT 6 mcg/min .[id number] JOHN 11.25 mls/hr Titration Protocol 6 MCG/MIN Fentanyl Citrate 2,500 mcg in 250 mls @ 0 mls/hr 06/05/24 08:35 06/17/24 08:00 Fentanyl 2,500 Mcg/Ns 250 Ml IV CONT 0 mcg/hr .Q0M JOHN 0 mls/hr Titration Protocol Midazolam HCl 100 mg in 100 mls @ 0 mls/hr 06/05/24 08:35 06/17/24 08:00 Versed 100 Mg/Ns 100 Ml IV CONT 0 mg/hr .Q0M JOHN 0 mls/hr Titration Protocol Dextrose 1,000 mls @ 100 mls/hr 06/05/24 11:46 Dextrose 5% 1,000 Ml IVPB PRN PRN Hypoglycemia Protocol Albumin Human 50 mls @ 999 mls/hr 06/08/24 09:50 06/12/24 11:39 Albutein IVPB 07/08/24 09:49 Infused Q10M PRN Infusion HYPOTENSION Albumin Human 50 mls @ 999 mls/hr 06/17/24 08:36 Albutein IVPB 06/18/24 08:35 Q10M PRN HYPOTENSION Insulin Aspart 3 - 6 units 06/05/24 12:00 06/17/24 05:56 Insulin Aspart (*Bkc) 100 Units/Ml SUB-Q Not Given Q6HR JOHN Protocol Midodrine 10 mg 06/05/24 09:00 06/17/24 08:18 Midodrine Hcl 10 Mg Tablet PO 10 mg TID JOHN Administration Multi-Ingred Cream/Lotion/Oil/Oint 1 applic 06/05/24 09:00 06/17/24 08:18 Mineral Oil/White Petrolatum Ointment EACH EYE 1 applic Q12HR JOHN Administration Ondansetron HCl 4 mg 06/11/24 07:47 06/11/24 13:40 Ondansetron Inj 4 Mg/2 Ml Vial IV PUSH 4 mg Q6H PRN Administration Nausea And Vomiting Pantoprazole Sodium 40 mg 06/06/24 09:00 06/17/24 08:18 Pantoprazole Sodium Iv 40 Mg Vial IV PUSH 40 mg Q12HR JOHN Administration Fluticasone/Salmeterol 2 puff 06/03/24 08:00 06/14/24 12:38 Fluticasone/Salmeterol 115-21 Mcg Inhaler 1 Puff INHALATION Not Given Q12HRT JOHN Sodium Chloride 10 ml 06/05/24 06:00 06/17/24 05:29 Central Line Flush IV PUSH 10 ml Q8HR JOHN Administration Sodium Chloride 20 ml 06/05/24 03:12 Central Line Flush IV PUSH PRN PRN after blood draws Umeclidinium [place] 1 puff 06/03/24 08:00 06/14/24 12:38 Umeclidinium [place] 62.5 Mcg Ellipta INHALATION Not Given DAILYRT [facility] Radiology Results: ITS Impressions Renal Ultrasound 06/04/24 15:06 IMPRESSION: 1. Normal kidneys. No hydronephrosis. Chest/Abdomen/Pelvis CT 06/04/24 19:12 IMPRESSION: 1. Diffuse lung disease, consistent with pulmonary edema versus pneumonia. 2. Moderate volume of ascites. Venous Doppler Study 06/07/24 17:01 IMPRESSION: 1. No deep venous thrombosis. Abdomen Ultrasound 06/10/24 14:47 IMPRESSION: Fat infiltration. Enlarged left lobe of the liver. Slightly thickened wall of the gallbladder. Trace of ascites. Otherwise, normal Limited ultrasound of the abdomen. Abdomen X-Ray 06/16/24 13:54 IMPRESSION: 1. Nasogastric tube tip in the stomach. 2. Nonobstructive bowel gas pattern. 3. Diffuse lung disease, consistent with pulmonary edema versus pneumonia. 4. Cardiomegaly. Chest X-Ray 06/17/24 06:05 IMPRESSION: 1. Diffuse lung disease with interval improvement, consistent with pulmonary edema versus pneumonia. 2. Cardiomegaly. Labs Labs: Laboratory Results - last 24 hr 06/16/24 06/16/24 06/17/24 14:08 17:17 00:07 WBC RBC Hgb Hct MCV MCH MCHC RDW Plt Count MPV Immature Gran % (Auto) Neut % (Auto) Lymph % (Auto) [place] % (Auto) Eos % (Auto) Baso % (Auto) Lymph # (Auto) [place] # (Auto) Eos # (Auto) Baso # (Auto) Abs Immat Gran (auto) Absolute Neuts (auto) Absolute Nucleated RBC Nucleated RBC % Puncture Site ABG pH ABG pCO2 ABG pO2 ABG PO2/FiO2 Ratio ABG HCO3 ABG O2 Saturation ABG O2 Content ABG Base Excess A-a Gradient Oxyhemoglobin Carboxyhemoglobin Methemoglobin Reduced Hemoglobin Total Hemoglobin O2 Delivery Device O2 Liters/Min Minute Volume Vent Rate Vent Mode FiO2 Tidal Volume PEEP Peak Inspir Pressure Pressure Support Sodium Potassium Chloride Carbon Dioxide Anion Gap BUN Creatinine Estim Creat Clear Calc Estimated GFR Glucose POC Capillary Glucose 143 H 138 H 132 H Calcium Phosphorus Magnesium Total Bilirubin AST ALT Alkaline Phosphatase Total Protein Albumin Random Cortisol 06/17/24 06/17/24 06/17/24 04:34 05:16 05:20 WBC 15.5 H RBC 3.69 L Hgb 10.1 L Hct 31.8 L MCV 86.2 MCH 27.4 MCHC 31.8 L RDW 19.2 H Plt Count 347 MPV 9.7 Immature Gran % (Auto) 1.1 H Neut % (Auto) 80.0 H Lymph % (Auto) 7.6 L [place] % (Auto) 9.6 H Eos % (Auto) 1.4 Baso % (Auto) 0.3 Lymph # (Auto) 1.18 [place] # (Auto) 1.5 H Eos # (Auto) 0.2 Baso # (Auto) 0.0 Abs Immat Gran (auto) 0.17 H Absolute Neuts (auto) 12.4 H Absolute Nucleated RBC 0.000 Nucleated RBC % 0.0 Puncture Site Right radial ABG pH 7.446 ABG pCO2 38.7 ABG pO2 77.5 L ABG PO2/FiO2 Ratio 1.94 ABG HCO3 26.1 H ABG O2 Saturation 96.0 ABG O2 Content 15.0 L ABG Base Excess 2.0 A-a Gradient 163.2 Oxyhemoglobin 95.1 Carboxyhemoglobin 0.6 Methemoglobin 0.2 Reduced Hemoglobin 4.1 Total Hemoglobin 11.2 L O2 Delivery Device Ventilator O2 Liters/Min Not Reportable Minute Volume Not Reportable Vent Rate 20 Vent Mode Cmv FiO2 40 Tidal Volume 400 PEEP 8 Peak Inspir Pressure Not Reportable Pressure Support Not Reportable Sodium 132 L Potassium 4.6 Chloride 96 L Carbon Dioxide 21 L Anion Gap 15 H BUN 83 H D Creatinine 4.80 H Estim Creat Clear Calc 19 Estimated GFR 9 L Glucose 169 H POC Capillary Glucose Calcium 10.0 Phosphorus 5.1 H Magnesium 2.5 H Total Bilirubin 1.5 H AST 146 H ALT 80 H Alkaline Phosphatase 309 H Total Protein 7.0 Albumin 3.4 L Random Cortisol 41.40 Quality VTE Prophylaxis VTE prophylaxis: pharmacologic ordered
[2024-06-17] MEDS: MIDAZOLAM HCL (*CRX) 2 MG/2 ML VIAL IV PUSH (10:08)
[2024-06-17 12:12] LABS: Glucose Point of Care 184 mg/dl (65-105)
--- NOTE | 2024-06-17 14:50 | PM.IMPN ---
Progress Note: A&P Assessment and Plan (1) Acute respiratory failure: Code(s): J96.00 - Acute respiratory failure, unspecified whether with hypoxia or hypercapnia Status: Acute Assessment and Plan: Patient originally admitted for difficulty voiding. Patient developed HoTN and hypoxia on 06/04 that worsened overnight. ABG showing 7.33/58/66.5 on HFNC. 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 She had increasing O2 requirements. CXR showed bilateral diffuse pulmonary infiltrates/pulmonary edema. Respiratory failure related to pulmonary edema, pneumonia and/or ARDS Patient was placed on BiPAP but ultimately intubated on 06/05/24. Despite daily HD, CXR continues to show edema vs PNA. Peep requirement remains at 8. CT Ch/A/P showing diffuse disease consider ARDS Continue bronchodilators Fentanyl and Versed for sedation Continue dialysis for fluid removal per nephrology. Wean vent as tolerated. Appreciate hospitalist physician input - discussed. (2) Septic shock: Code(s): A41.9 - Sepsis, unspecified organism; R65.21 - Severe sepsis with septic shock Status: Acute Assessment and Plan: Patient was HoTN in the IMU and transferred to the ICU. Septic shock possibly related to UTI, pneumonia, bacteremia. Rt IJ central line was placed and Levophed started. She received fluids, albumin and midodrine BCx and UCx 06/02 negative. BCx 06/06 grew EColi and Staph Epidermidis. EColi was pansensitive. UCx 06/06 negative. Sputum Cx 06/07 growing yeast. BCx 06/08 negative Patient was on vancomycin and cefepime which were continued. Fluconazole was discontinued given her renal dysfunction Stress dose steroids were started but are off now Cause of bacteremia probably urinary source given UA results despite UCx being negative. Completed a course and now off all abx since 06/12. 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 Having low grade fevers today. LE venous doppler negative for DVT. CT Ch/A/P showing diffuse lung disease, consider PNA but otherwise no obvious source for fever. Wean pressors as tolerated. Continue midodrine. Consider BCx since she has central line if persistent fevers (3) JOVI (acute kidney injury): Code(s): N17.9 - Acute kidney failure, unspecified Status: Acute Assessment and Plan: Baseline Cr normal in April. Cr 2.1 on admission and has worsened JOVI related to shock, sepsis, UTI/pneumonia, hypoxia, SLE flare and/or CHF. TCK levels are normal. Ueos negative. Urine lytes c/w prerenal picture but patient seems to be volume overloaded Treated with IV fluids and albumin but renal function worsening and HD recommended. Director General consulted and dialysis catheter was placed 06/05 in the right IJ and exchanged for the central line HD daily with removal of anywhere from 2.9-4L per day since 06/05 (except 06/10 and today) Cumulative fluid balance of -17.6L. Still appears to be fluid overloaded but much improved. Continue HD as she tolerates. (4) Pulmonary edema: Code(s): J81.1 - Chronic pulmonary edema Status: Acute Assessment and Plan: CT chest (06/04) showing diffuse lung disease c/w PNA vs pulmonary edema vs ARDS. COVID, RSV and influenza PCR negative Echo showing normal LV size and fxn (EF 65-70%), Grade I diastolic dysfxn, RV enlargement with normal fxn, moderate bi-atrial enlargement and mild-mod TR. Pulmonary edema likely related to PNA, JOVI, ARDS. She did not respond to Bumex CT Chest today showing: diffuse lung disease with pulm edema vs PNA vs ARDS Control fluid status with HD (5) Type 2 diabetes mellitus: Code(s): E11.9 - Type 2 diabetes mellitus without complications Status: Acute Assessment and Plan: A1c 5.7. The patient's blood glucose was reviewed on 06/17 Glucose remains reasonably well controlled. Continue AccuCheks covering with sliding scale. Hypoglycemia protocol available as needed. Continue to monitor (6) Afib: Code(s): I48.91 - Unspecified atrial fibrillation Status: Acute Assessment and Plan: HR well controlled and tele showing normal sinus. Continue amiodarone Eliquis continued Flecainide stopped (7) SLE (systemic lupus erythematosus): Code(s): M32.9 - Systemic lupus erythematosus, unspecified Status: Acute Assessment and Plan: Consider SLE flare causinig her JOVI. Was started on stress dose steroids but now off Nephrology following. Check serologies. (8) Liver cirrhosis secondary to HOFFMANN: Code(s): K75.81 - Nonalcoholic steatohepatitis (HOFFMANN); K74.60 - Unspecified cirrhosis of liver Status: Acute Assessment and Plan: Patient has a hx of liver cirrhosis. CT abd without contrast shows normal liver but moderate volume of ascites and body wall edema consistent with her fluid overload. Mild elevation in AST/ALT with levels that have been up and down RUQ ultrasound 06/10 showing fat infiltration, enlarged left lobe of the liver and slightly thickened wall of the gallbladder. Trace ascites. Hepatitis panel is negative Belcher elevated LFTs related to congestion. Continue to monitor (9) Morbid obesity with BMI of 50.0-59.9, adult: Code(s): E66.01 - Morbid (severe) obesity due to excess calories; Z68.43 - Body mass index [BMI] 50.0-59.9, adult Status: Acute Assessment and Plan: Once extubated she will need lifestyle changes Plan DVT prophylaxis: Chance Code Status: Full code Subjective Date/time seen: 06/17/24 14:50 Interval history: 54yo female with AFib on anticoagulation, PM and DM here for difficulty voiding. 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 Central line was placed and started on pressor therapy. She was intubated later that morning. Patient remains intubated and is unable to provide hx. She awakens easily. Remains on Levophed. Sedation held this morning for possible breathing trial. No HD today. 4L removed yesterday. having low grade fevers. Exam Narrative: Tm 100.4 99.3 105/50 65 25 97% MV Gen - intubated; sedation on hold HEENT - ETT and OGT secured. Neck - Rt IJ HD catheter with pigtail in place. Chest - mildly coarse lung sounds. CV - RRR S1/S2. Tele showing no significant dysrhythmias Abd - soft, morbidly obese, improved flank and abd wall edema. - Lai secured with scant amount of dark yellow urine in the bag Ext - diffuse LE pitting pedal edema with improvement and wrinkling. heel pads in place. 2+ DP pulses bilaterally Neuro - sedated but awakens easily and follows commands Skin - Warm and dry.decreased right jenkins pink erythema Objective Data Vital Signs Vital Signs: Vital Signs - 24 hr 06/16/24 15:47 06/16/24 16:00 06/16/24 16:00 Temperature 97.9 F Pulse Rate 70 65 Respiratory Rate 24 H 26 H Blood Pressure 112/45 L Pulse Oximetry 94 Oxygen Delivery Fraction of Inspired Oxygen 40 06/16/24 16:57 06/16/24 16:57 06/16/24 16:00 Temperature Pulse Rate 65 65 65 Respiratory Rate 26 H 26 H Blood Pressure 112/45 L Pulse Oximetry Oxygen Delivery Fraction of Inspired Oxygen 06/16/24 17:23 06/16/24 18:00 06/16/24 18:00 Temperature Pulse Rate 69 72 65 Respiratory Rate 24 H Blood Pressure 119/55 L 119/55 L Pulse Oximetry 95 95 Oxygen Delivery Mechanical Ventilation Fraction of Inspired Oxygen 40 06/16/24 19:37 06/16/24 19:38 06/16/24 20:03 Temperature Pulse Rate 79 78 74 Respiratory Rate 31 H 31 H 25 H Blood Pressure Pulse Oximetry Oxygen Delivery Fraction of Inspired Oxygen 06/16/24 20:08 06/16/24 20:11 06/16/24 20:00 Temperature Pulse Rate 75 72 73 Respiratory Rate 24 H 25 H Blood Pressure Pulse Oximetry 95 Oxygen Delivery Mechanical Ventilation Fraction of Inspired Oxygen 40 06/16/24 20:00 06/16/24 20:25 06/16/24 20:00 Temperature Pulse Rate 73 70 73 Respiratory Rate 25 H Blood Pressure 124/56 L 117/52 L Pulse Oximetry Oxygen Delivery Fraction of Inspired Oxygen 06/16/24 20:30 06/16/24 20:31 06/16/24 20:00 Temperature Pulse Rate 70 70 Respiratory Rate Blood Pressure 118/45 L Pulse Oximetry 96 Oxygen Delivery Mechanical Ventilation Fraction of Inspired Oxygen 40 06/16/24 20:00 06/16/24 20:00 06/16/24 20:00 Temperature Pulse Rate 74 74 Respiratory Rate 22 H Blood Pressure 117/52 L Pulse Oximetry 96 Oxygen Delivery Fraction of Inspired Oxygen 40 06/16/24 22:00 06/16/24 22:00 06/16/24 22:00 Temperature 99.9 F H Pulse Rate 68 68 68 Respiratory Rate 25 H 25 H Blood Pressure 114/45 L Pulse Oximetry 94 Oxygen Delivery Fraction of Inspired Oxygen 06/16/24 22:00 06/16/24 22:00 06/16/24 22:56 Temperature Pulse Rate 68 68 71 Respiratory Rate 25 H Blood Pressure 114/45 L Pulse Oximetry 95 Oxygen Delivery Mechanical Ventilation Fraction of Inspired Oxygen 40 06/17/24 00:00 06/17/24 00:00 06/17/24 00:00 Temperature Pulse Rate 71 71 71 Respiratory Rate 25 H 25 H Blood Pressure 112/50 L Pulse Oximetry Oxygen Delivery Fraction of Inspired Oxygen 06/17/24 00:00 06/17/24 00:15 06/17/24 00:00 Temperature Pulse Rate 70 70 Respiratory Rate Blood Pressure 115/53 L Pulse Oximetry 93 Oxygen Delivery Mechanical Ventilation Fraction of Inspired Oxygen 40 06/17/24 00:00 06/17/24 00:00 06/17/24 01:49 Temperature 99.8 F H Pulse Rate 70 78 Respiratory Rate 26 H 26 H Blood Pressure 112/50 L Pulse Oximetry 93 Oxygen Delivery Fraction of Inspired Oxygen 40 06/17/24 01:52 06/17/24 01:55 06/17/24 02:05 Temperature Pulse Rate 77 77 76 Respiratory Rate 26 H Blood Pressure 110/44 L Pulse Oximetry 95 Oxygen Delivery Mechanical Ventilation Fraction of Inspired Oxygen 40 06/17/24 02:00 06/17/24 02:00 06/17/24 02:00 Temperature Pulse Rate 76 76 76 Respiratory Rate 27 H 27 H Blood Pressure Pulse Oximetry Oxygen Delivery Fraction of Inspired Oxygen 06/17/24 02:00 06/17/24 02:15 06/17/24 02:58 Temperature Pulse Rate 76 72 76 Respiratory Rate 27 H Blood Pressure 110/44 L 102/46 L 101/42 L Pulse Oximetry 97 Oxygen Delivery Fraction of Inspired Oxygen 06/17/24 03:00 06/17/24 03:00 06/17/24 03:16 Temperature Pulse Rate 75 75 71 Respiratory Rate 24 H 24 H Blood Pressure 102/42 L Pulse Oximetry Oxygen Delivery Fraction of Inspired Oxygen 06/17/24 03:30 06/17/24 04:10 06/17/24 04:10 Temperature Pulse Rate 68 89 89 Respiratory Rate 29 H 29 H Blood Pressure 108/46 L Pulse Oximetry Oxygen Delivery Fraction of Inspired Oxygen 06/17/24 04:00 06/17/24 04:16 06/17/24 04:23 Temperature Pulse Rate 72 92 86 Respiratory Rate 34 H Blood Pressure 109/48 L 125/64 Pulse Oximetry Oxygen Delivery Fraction of Inspired Oxygen 06/17/24 04:23 06/17/24 04:25 06/17/24 04:25 Temperature Pulse Rate 86 85 85 Respiratory Rate 34 H 25 H 25 H Blood Pressure Pulse Oximetry Oxygen Delivery Fraction of Inspired Oxygen 06/17/24 04:33 06/17/24 04:00 06/17/24 04:00 Temperature 100.3 F H Pulse Rate 86 78 78 Respiratory Rate 27 H Blood Pressure 106/43 L 109/48 L Pulse Oximetry 96 Oxygen Delivery Fraction of Inspired Oxygen 06/17/24 04:00 06/17/24 04:00 06/17/24 04:45 Temperature Pulse Rate 80 Respiratory Rate Blood Pressure 109/44 L Pulse Oximetry 96 Oxygen Delivery Mechanical Ventilation Fraction of Inspired Oxygen 40 40 06/17/24 04:45 06/17/24 04:45 06/17/24 06:03 Temperature Pulse Rate 80 80 80 Respiratory Rate 28 H 28 H 28 H Blood Pressure Pulse Oximetry Oxygen Delivery Fraction of Inspired Oxygen 06/17/24 06:04 06/17/24 06:04 06/17/24 05:30 Temperature Pulse Rate 80 80 71 Respiratory Rate 28 H Blood Pressure 118/51 L Pulse Oximetry 95 Oxygen Delivery Mechanical Ventilation Fraction of Inspired Oxygen 40 06/17/24 06:00 06/17/24 06:00 06/17/24 06:16 Temperature 100.0 F H Pulse Rate 80 80 77 Respiratory Rate 28 H Blood Pressure 118/57 L 113/50 L Pulse Oximetry 93 Oxygen Delivery Fraction of Inspired Oxygen 06/17/24 07:09 06/17/24 07:09 06/17/24 07:18 Temperature Pulse Rate 74 74 73 Respiratory Rate 26 H 26 H Blood Pressure 113/47 L Pulse Oximetry Oxygen Delivery Fraction of Inspired Oxygen 06/17/24 07:44 06/17/24 07:50 06/17/24 07:53 Temperature Pulse Rate 74 77 Respiratory Rate 27 H Blood Pressure Pulse Oximetry 96 96 Oxygen Delivery Mechanical Ventilation Mechanical Ventilation Fraction of Inspired Oxygen 40 40 06/17/24 07:53 06/17/24 08:17 06/17/24 08:18 Temperature Pulse Rate 77 82 82 Respiratory Rate 25 H Blood Pressure 118/49 L Pulse Oximetry Oxygen Delivery Fraction of Inspired Oxygen 06/17/24 08:00 06/17/24 08:00 06/17/24 08:53 Temperature Pulse Rate 76 76 80 Respiratory Rate 27 H 27 H Blood Pressure Pulse Oximetry 96 Oxygen Delivery Mechanical Ventilation Fraction of Inspired Oxygen 40 06/17/24 09:01 06/17/24 10:00 06/17/24 09:35 Temperature Pulse Rate 79 81 84 Respiratory Rate 30 H Blood Pressure 114/47 L 114/51 L Pulse Oximetry Oxygen Delivery Fraction of Inspired Oxygen 06/17/24 09:35 06/17/24 10:05 06/17/24 10:20 Temperature Pulse Rate 84 81 77 Respiratory Rate 30 H 26 H Blood Pressure Pulse Oximetry 96 Oxygen Delivery Mechanical Ventilation Fraction of Inspired Oxygen 40 06/17/24 08:00 06/17/24 08:00 06/17/24 08:00 Temperature 100.4 F H Pulse Rate 80 76 Respiratory Rate 26 H Blood Pressure 115/50 L Pulse Oximetry 96 Oxygen Delivery Fraction of Inspired Oxygen 40 06/17/24 08:00 06/17/24 10:00 06/17/24 11:31 Temperature Pulse Rate 79 64 Respiratory Rate 28 H Blood Pressure 112/52 L Pulse Oximetry Oxygen Delivery Mechanical Ventilation Fraction of Inspired Oxygen 40 06/17/24 10:00 06/17/24 10:00 06/17/24 12:00 Temperature Pulse Rate 79 79 67 Respiratory Rate 28 H Blood Pressure 114/51 L 109/51 L Pulse Oximetry 97 Oxygen Delivery Fraction of Inspired Oxygen 06/17/24 12:26 06/17/24 12:00 06/17/24 12:00 Temperature Pulse Rate 67 67 67 Respiratory Rate 23 H 114 H Blood Pressure 114/52 L Pulse Oximetry Oxygen Delivery Fraction of Inspired Oxygen 06/17/24 12:00 06/17/24 12:00 06/17/24 12:00 Temperature 99.3 F Pulse Rate 67 67 Respiratory Rate 25 H Blood Pressure 109/51 L Pulse Oximetry 95 Oxygen Delivery Fraction of Inspired Oxygen 40 06/17/24 12:00 06/17/24 13:30 06/17/24 13:20 Temperature Pulse Rate 62 64 Respiratory Rate 22 H Blood Pressure 106/51 L Pulse Oximetry Oxygen Delivery Mechanical Ventilation Fraction of Inspired Oxygen 40 06/17/24 13:46 06/17/24 13:49 06/17/24 13:54 Temperature Pulse Rate 61 62 65 Respiratory Rate 24 H 21 H Blood Pressure Pulse Oximetry 97 Oxygen Delivery Mechanical Ventilation Fraction of Inspired Oxygen 40 06/17/24 14:00 06/17/24 14:00 06/17/24 14:00 Temperature Pulse Rate 65 65 65 Respiratory Rate 25 H 25 H Blood Pressure 105/50 L Pulse Oximetry Oxygen Delivery Fraction of Inspired Oxygen 06/17/24 14:00 06/17/24 14:00 Temperature Pulse Rate 65 65 Respiratory Rate 25 H Blood Pressure 105/50 L Pulse Oximetry 97 Oxygen Delivery Fraction of Inspired Oxygen Intake/Output Intake/Output: Intake & Output 06/14/24 06/15/24 06/16/24 06/17/24 23:59 23:59 23:59 23:59 Intake Total 1649.7 2649.6 822.4 795.9 Output Total 3110 4200 4181 50 Balance -1460.3 -1550.4 -3358.6 745.9 Meds/Results Medications: Active Medications Generic Name Dose Route Start Last Admin Trade Name Freq PRN Reason Stop Dose Admin Acetaminophen 650 mg 06/07/24 21:53 06/07/24 22:30 Acetaminophen Elixir 325 Mg/10.15 Ml Udc PO 650 mg Q6H PRN Administration Mild Pain (1-3) or Fever Albuterol/Ipratropium 3 ml 06/05/24 11:15 06/17/24 13:46 Ipratropium 0.5 Mg/Albuterol Sulfate 2.5 Mg Ampul.Neb 3 Ml INHALATION 3 ml Q6HRT JOHN Administration Amiodarone HCl 200 mg 06/02/24 21:00 06/17/24 08:18 Amiodarone Hcl 200 Mg Tablet PO 200 mg Q12HR JOHN Administration Apixaban 5 mg 06/06/24 09:30 06/17/24 08:18 Apixaban 5 Mg Tablet PO 5 mg Q12HR JOHN Administration Dextrose 12.5 gm 06/05/24 11:46 Dextrose 50% 25 Gm/50 Ml Syringe IV PUSH PRN PRN Hypoglycemia Protocol Epoetin Shayan-epbx 10,000 units 06/18/24 09:00 Epoetin Shayan-Epbx 10,000 Units/Ml Vial IV PUSH MOWEFR@09 JOHN Glucagon 1 mg 06/05/24 11:46 Glucagon For Inj 1 Mg Vial IM PRN PRN Hypoglycemia Protocol Glucose 15 gm 06/05/24 11:46 Glucose Oral Gel 15 Gm Of Glucse In 37.5 Gm Tube PO PRN PRN Hypoglycemia Protocol Norepinephrine Bitartrate 8 mg in 250 mls @ 3.75 mls/hr 06/05/24 00:35 06/17/24 14:00 Levophed 8 Mg/D5w 250 Ml IV CONT 2 mcg/min .Q24H JOHN 3.75 mls/hr Titration Protocol 2 MCG/MIN Fentanyl Citrate 2,500 mcg in 250 mls @ 5 mls/hr 06/05/24 08:35 06/17/24 14:00 Fentanyl 2,500 Mcg/Ns 250 Ml IV CONT 50 mcg/hr .Q50H JOHN 5 mls/hr Titration Protocol 50 MCG/HR Midazolam HCl 100 mg in 100 mls @ 1 mls/hr 06/05/24 08:35 06/17/24 14:00 Versed 100 Mg/Ns 100 Ml IV CONT 1 mg/hr .Q72H JOHN 1 mls/hr Titration Protocol 1 MG/HR Dextrose 1,000 mls @ 100 mls/hr 06/05/24 11:46 Dextrose 5% 1,000 Ml IVPB PRN PRN Hypoglycemia Protocol Albumin Human 50 mls @ 999 mls/hr 06/08/24 09:50 06/12/24 11:39 Albutein IVPB 07/08/24 09:49 Infused Q10M PRN Infusion HYPOTENSION Albumin Human 50 mls @ 999 mls/hr 06/17/24 08:36 Albutein IVPB 06/18/24 08:35 Q10M PRN HYPOTENSION Insulin Aspart 3 - 6 units 06/05/24 12:00 06/17/24 12:21 Insulin Aspart (*Bkc) 100 Units/Ml SUB-Q Not Given Q6HR [facility] Protocol Midodrine 10 mg 06/17/24 22:00 Midodrine Hcl 10 Mg Tablet PO Q8H [facility] Multi-Ingred Cream/Lotion/Oil/Oint 1 applic 06/05/24 09:00 06/17/24 08:18 Mineral Oil/White Petrolatum Ointment EACH EYE 1 applic Q12HR [facility] Administration Ondansetron HCl 4 mg 06/11/24 07:47 06/11/24 13:40 Ondansetron Inj 4 Mg/2 Ml Vial IV PUSH 4 mg Q6H PRN Administration Nausea And Vomiting Pantoprazole Sodium 40 mg 06/06/24 09:00 06/17/24 08:18 Pantoprazole Sodium Iv 40 Mg Vial IV PUSH 40 mg Q12HR JOHN Administration Fluticasone/Salmeterol 2 puff 06/03/24 08:00 06/14/24 12:38 Fluticasone/Salmeterol 115-21 Mcg Inhaler 1 Puff INHALATION Not Given Q12HRT JOHN Sodium Chloride 10 ml 06/05/24 06:00 06/17/24 12:25 Central Line Flush IV PUSH 10 ml Q8HR JOHN Administration Sodium Chloride 20 ml 06/05/24 03:12 Central Line Flush IV PUSH PRN PRN after blood draws Umeclidinium [place] 1 puff 06/03/24 08:00 06/14/24 12:38 Umeclidinium [place] 62.5 Mcg Ellipta INHALATION Not Given DAILYRT JOHN Radiology Results: ITS Impressions Renal Ultrasound 06/04/24 15:06 IMPRESSION: 1. Normal kidneys. No hydronephrosis. Abdomen Ultrasound 06/10/24 14:47 IMPRESSION: Fat infiltration. Enlarged left lobe of the liver. Slightly thickened wall of the gallbladder. Trace of ascites. Otherwise, normal Limited ultrasound of the abdomen. Abdomen X-Ray 06/16/24 13:54 IMPRESSION: 1. Nasogastric tube tip in the stomach. 2. Nonobstructive bowel gas pattern. 3. Diffuse lung disease, consistent with pulmonary edema versus pneumonia. 4. Cardiomegaly. Chest X-Ray 06/17/24 06:05 IMPRESSION: 1. Diffuse lung disease with interval improvement, consistent with pulmonary edema versus pneumonia. 2. Cardiomegaly. Chest/Abdomen/Pelvis CT 06/17/24 10:03 IMPRESSION: 1. Diffuse lung disease, consistent with pulmonary edema versus pneumonia versus acute respiratory distress syndrome. 2. Cardiomegaly. 3. Small volume of ascites. Venous Doppler Study 06/17/24 11:49 IMPRESSION: 1. No deep venous thrombosis. Labs Labs: Laboratory Results - last 24 hr 06/16/24 06/17/24 06/17/24 17:17 00:07 04:34 WBC RBC Hgb Hct MCV MCH MCHC RDW Plt Count MPV Immature Gran % (Auto) Neut % (Auto) Lymph % (Auto) Darke % (Auto) Eos % (Auto) Baso % (Auto) Lymph # (Auto) Darke # (Auto) Eos # (Auto) Baso # (Auto) Abs Immat Gran (auto) Absolute Neuts (auto) Absolute Nucleated RBC Nucleated RBC % Puncture Site Right radial ABG pH 7.446 ABG pCO2 38.7 ABG pO2 77.5 L ABG PO2/FiO2 Ratio 1.94 ABG HCO3 26.1 H ABG O2 Saturation 96.0 ABG O2 Content 15.0 L ABG Base Excess 2.0 A-a Gradient 163.2 Oxyhemoglobin 95.1 Carboxyhemoglobin 0.6 Methemoglobin 0.2 Reduced Hemoglobin 4.1 Total Hemoglobin 11.2 L O2 Delivery Device Ventilator O2 Liters/Min Not Reportable Minute Volume Not Reportable Vent Rate 20 Vent Mode Cmv FiO2 40 Tidal Volume 400 PEEP 8 Peak Inspir Pressure Not Reportable Pressure Support Not Reportable Sodium Potassium Chloride Carbon Dioxide Anion Gap BUN Creatinine Estim Creat Clear Calc Estimated GFR Glucose POC Capillary Glucose 138 H 132 H Calcium Phosphorus Magnesium Total Bilirubin AST ALT Alkaline Phosphatase Total Protein Albumin Random Cortisol 06/17/24 06/17/24 06/17/24 05:16 05:20 12:09 WBC 15.5 H RBC 3.69 L Hgb 10.1 L Hct 31.8 L MCV 86.2 MCH 27.4 MCHC 31.8 L RDW 19.2 H Plt Count 347 MPV 9.7 Immature Gran % (Auto) 1.1 H Neut % (Auto) 80.0 H Lymph % (Auto) 7.6 L Darke % (Auto) 9.6 H Eos % (Auto) 1.4 Baso % (Auto) 0.3 Lymph # (Auto) 1.18 Darke # (Auto) 1.5 H Eos # (Auto) 0.2 Baso # (Auto) 0.0 Abs Immat Gran (auto) 0.17 H Absolute Neuts (auto) 12.4 H Absolute Nucleated RBC 0.000 Nucleated RBC % 0.0 Puncture Site ABG pH ABG pCO2 ABG pO2 ABG PO2/FiO2 Ratio ABG HCO3 ABG O2 Saturation ABG O2 Content ABG Base Excess A-a Gradient Oxyhemoglobin Carboxyhemoglobin Methemoglobin Reduced Hemoglobin Total Hemoglobin O2 Delivery Device O2 Liters/Min Minute Volume Vent Rate Vent Mode FiO2 Tidal Volume PEEP Peak Inspir Pressure Pressure Support Sodium 132 L Potassium 4.6 Chloride 96 L Carbon Dioxide 21 L Anion Gap 15 H BUN 83 H D Creatinine 4.80 H Estim Creat Clear Calc 19 Estimated GFR 9 L Glucose 169 H POC Capillary Glucose 184 H Calcium 10.0 Phosphorus 5.1 H Magnesium 2.5 H Total Bilirubin 1.5 H AST 146 H ALT 80 H Alkaline Phosphatase 309 H Total Protein 7.0 Albumin 3.4 L Random Cortisol 41.40
[2024-06-17 17:18] LABS: Glucose Point of Care 115 mg/dl (65-105)
[2024-06-17] MEDS: NOREPINEPHRINE 8 MG/D5W 250 ML 8 MG/250 ML BAG 5.63 MG IV CONT (23:37)
[2024-06-18] VITALS (86 sets, daily range): BP systolic 77–123; BP diastolic 39–97; PULSE 60–78; RESP 17–31; TEMP 36.4–37.1; O2SAT 91–97
[2024-06-18 00:06] LABS: Glucose Point of Care 132 mg/dl (65-105)
[2024-06-18] MEDS: IPRATROPIUM 0.5 MG/ALBUTEROL SULFATE 2.5 MG AMPUL.NEB 3 ML INHALATION ×4 (01:34→20:50)
[2024-06-18 04:49] LABS: Alveolar/Arterial O2 Gradient 162.3 mmHg; Base Excess ABG -3.6 mEq/l (+/-2.0); Carboxyhemoglobin 0.5 % THb (0-2.0); Fractional Inspired Oxygen 40 %; HCO3 ABG 22.1 mEq/l (22.0-26.0); Methemoglobin ABG 0.2 %THb (0-1.5); Oxygen Content ABG 13.9 %vol (16.0-22.0); Oxygen Saturation ABG 93.9 % (95.0-100.0); Oxyhemoglobin 92.8 % THb (90.0-100.0); PCO2 ABG 42.7 mmHg (35.0-45.0); PO2 ABG 73.8 mmHg (80.0-100.0); PO2 FiO2 Ratio Arterial Blood 1.85 %; Reduced Hemoglobin 6.5 %THb (0-5.0); Total Hemoglobin 10.6 g/dL (12.0-18.0); pH ABG 7.332 (7.350-7.450)
[2024-06-18 04:50] LABS: Device VENTILATOR; Modified Allen's Test Pass; Site Drawn RIGHT RADIAL
[2024-06-18 04:51] LABS: Arterial Blood Gas PEEP 8 cmH2O; Arterial Blood Gas Tidal Volume 400 ml; Arterial Blood Gas Vent Mode CMV; Arterial Blood Gas Ventilator rate 20 /MIN
[2024-06-18 05:18] LABS: Basophils Percent Auto 0.3 % (0.2-1.2); Eosinophils Absolute Auto 0.2 K/mm3 (0-0.3); Eosinophils Percent Auto 1.9 % (0-4.4); Hematocrit 30.8 % (37.0-47.0); Hemoglobin 9.6 g/dL (12.0-15.0); Immature Granulocyte Absolute 0.09 K/mm3 (0.00-0.031); Immature Granulocyte Percent A 0.7 % (0-0.5); Lymphocytes Absolute Auto 0.95 K/mm3 (0.9-3.2); Lymphocytes Percent Auto 7.6 % (18.3-44.2); Mean Corpuscular HGB Conc 31.2 g/dl (32-36); Mean Corpuscular Hemoglobin 27.4 pg (26-34); Mean Corpuscular Volume 87.7 fl (80-100); Mean Platelet Volume 9.9 fl (7.4-10.4); Monocytes Absolute Auto 1.1 K/mm3 (0.1-0.6); Neutrophils Absolute Auto 10.1 K/mm3 (1.3-6.7); Neutrophils Percent Auto 80.5 % (45.5-73.1); Platelet Count Result 292 k/mm3 (150-375); Red Blood Count 3.51 M/mm3 (4.2-5.4); Red Cell Distribution Width 19.6 % (11.5-14.5); White Blood Count 12.5 K/mm3 (4.5-10.0)
[2024-06-18] MEDS: MIDODRINE HCL 10 MG TABLET PO ×3 (05:20→21:05)
[2024-06-18] MEDS: CENTRAL LINE FLUSH 10 ML IV PUSH ×3 (05:20→20:11)
[2024-06-18 05:37] LABS: Alanine Aminotransferase 69 U/L (6-35); Albumin Level 3.2 g/dL (3.5-5.1); Alkaline Phosphatase 266 U/L (38-126); Anion Gap 11 mmol/L (4-12); Aspartate Amino Transferase 122 U/L (14-36); Bilirubin,Total 1.3 mg/dL (0.2-1.3); Blood Urea Nitrogen 104 mg/dL (7-17); Calcium 9.6 mg/dL (8.4-10.2); Carbon Dioxide 25 mmol/L (22-30); Chloride 94 mmol/L (98-107); Glucose 131 mg/dL (65-110); Magnesium 2.7 mg/dL (1.6-2.3); Phosphorus 6.6 mg/dL (2.5-4.5); Potassium 4.5 mmol/L (3.4-5.0); Sodium 130 mmol/L (137-145)
[2024-06-18] MEDS: ONDANSETRON INJ 4 MG/2 ML VIAL IV PUSH (05:37)
[2024-06-18 05:40] LABS: Estimated CRCL calculation 16 ml/min; Estimated Glomerular Filt Rate 8
[2024-06-18] MEDS: MINERAL OIL/WHITE PETROLATUM OINTMENT 1 APPLIC EACH EYE ×2 (08:58→20:09)
[2024-06-18] MEDS: PANTOPRAZOLE SODIUM IV 40 MG VIAL IV PUSH ×2 (08:58→20:08)
[2024-06-18] MEDS: APIXABAN 5 MG TABLET PO ×2 (08:58→20:07)
[2024-06-18] MEDS: AMIODARONE HCL 200 MG TABLET PO ×2 (08:58→20:07)
--- NOTE | 2024-06-18 09:19 | P.PNINT_ITS ---
Progress Note: A&P Assessment and Plan (1) Acute respiratory failure: Code(s): J96.00 - Acute respiratory failure, unspecified whether with hypoxia or hypercapnia Status: Acute Assessment and Plan: Chest x-ray bilateral diffuse pulmonary infiltrates/pulmonary edema. Patient was placed on BiPAP. ABG showed hypercapnic and hypoxemic respiratory failure. Etiology pulmonary edema, pneumonia, ARDS -06/05: patient intubated for impending respiratory failure. Intubation was slightly challenging secondary to body habitus, small mouth, large tongue, redundant tissue in the hypopharynx and anterior vocal cords requiring cricoid pressure and use of glide scope. CT chest 06/17 IMPRESSION: 1. Diffuse lung disease, consistent with pulmonary edema versus pneumonia versus acute respiratory distress syndrome. 2. Cardiomegaly. 3. Small volume of ascites. -currently on CMV mode of ventilation, currently on PEEP down to 8, 40% FiO2, -chest x-ray reviewed and shows improvement although still has diffuse bilateral infiltrates although there has been improvement -continue bronchodilators - fentanyl and Versed infusion for analgosedation, will maintain RASS of -2 -patient has significant volume overload and need additional fluid removed patient is being dialyzed again today. -will try PSV again after dialysis today Overall patient has been on a ventilator for more than 2 weeks now at this point patient has not shown any significant indication of weaning. I have spoken to patient's sister who is her POA and son by phone today and discussed options of tracheostomy and PEG tube placement in case patient is not weanable from mechanical ventilation. Will discuss among themselves and get back to me later today. (2) Septic shock: Code(s): A41.9 - Sepsis, unspecified organism; R65.21 - Severe sepsis with septic shock Status: Acute Assessment and Plan: Septic shock could be related to UTI, pneumonia -patient was hypotensive in the intermediate Unit and was transferred to the ICU which she received fluids, albumin -continue norepinephrine, will maintain MAP > 65 mmHg or SBP > 100 mmHg adequate end organ perfusion -off vasopressin since 06/06/2024 evening -off vancomycin -completed cefepime for a total of 7 days -fluconazole was discontinued given her renal dysfunction -off stress dose steroids -continue midodrine -06/17: CT chest abdomen and pelvis for ongoing leukocytosis and vasopressor requirement. Will also obtain right lower extremity venous Dopplers since patient has a right lower extremity is erythematous, slightly swollen. 06/05/2024: Echocardiogram Summary 1. Left ventricular chamber dimension is normal. 2. Left ventricular systolic function is normal, estimated at 65-70%. 3. The left ventricular diastolic function is grade I diastolic dysfunction. 4. Right ventricular chamber dimension is moderately enlarged. 5. Right ventricular systolic function is normal. 6. Left atrial chamber dimension is moderately enlarged. 7. Right atrial chamber dimension is moderately enlarged. 8. There is mild to moderate tricuspid valve regurgitation. (3) JOVI (acute kidney injury): Code(s): N17.9 - Acute kidney failure, unspecified Status: Acute Assessment and Plan: Patient with acute kidney injury, with increase creatinine to 4.60 (creatinine on admission on 06/02/2024 was 2.10 and her creatinine on 04/26/2024 was 0.90) -etiology for acute kidney injury could be multifactorial, hypotension, shock, sepsis, UTI/pneumonia, hypoxia,? SLE flare, CHF, -CK levels are within normal limits -urine eosinophils were negative -urine electrolytes showed prerenal picture, patient seems to be volume overloaded -status post given IV fluids and albumin, will hold fluids for now -discussed with logistics planner at [facility], feels that the patient is unstable to be transferred at this time for CRRT, recommended conventional dialysis. -discussed with thread marker at [facility], agrees to conventional dialysis at this time -06/05: dialysis catheter was placed in the right IJ and exchange for the central line -06/05: Initiated dialysis, with 3000 mL of fluid removal -06/06: Dialysis with 3000 mL in fluid removal -06/07: Dialysis with 3700 mL in fluid removal -06/08: Dialysis with 2900 mL in fluid removal -06/09: Dialysis with 3000 mL in fluid removal -06/10: No dialysis -06/12: Patient was dialyzed and 3.1 P L fluid was removed -06/13 getting dialyzed again today. 4 L removed - 06/14: 3000 mL removed - 06/15: 4000 mL fluid was removed - 06/16: 4000 mL in fluid removal with dialysis\ - 06/18: Plan for dialysis again today (4) Pulmonary edema: Code(s): J81.1 - Chronic pulmonary edema Status: Acute Assessment and Plan: Pulmonary edema likely related to acute kidney injury, ARDS, -did not respond to Bumex -continue fluid removal with dialysis (5) Type 2 diabetes mellitus: Code(s): E11.9 - Type 2 diabetes mellitus without complications Status: Acute Assessment and Plan: SSI and accucheks HbA1C is 5.7 this admission (6) Afib: Code(s): I48.91 - Unspecified atrial fibrillation Status: Acute Assessment and Plan: continue amiodarone and Eliquis - flecainide was stopped (7) SLE (systemic lupus erythematosus): Code(s): M32.9 - Systemic lupus erythematosus, unspecified Status: Acute Assessment and Plan: Off steroids (8) Liver cirrhosis secondary to HOFFMANN: Code(s): K75.81 - Nonalcoholic steatohepatitis (HOFFMANN); K74.60 - Unspecified cirrhosis of liver Status: Acute Assessment and Plan: Continues to have mild elevation in LFTs and bilirubin which is stable 06/10/2024: RUQ ultrasound: Fat infiltration. Enlarged left lobe of the liver. Slightly thickened wall of the gallbladder. Trace of ascites. Otherwise, normal Limited ultrasound of the abdomen. -06/10/2024: Hepatitis panel is negative -continue to monitor (9) GERD (gastroesophageal reflux disease): Code(s): K21.9 - Gastro-esophageal reflux disease without esophagitis Status: Acute Assessment and Plan: Continue Protonix (10) Morbid obesity with BMI of 50.0-59.9, adult: Code(s): E66.01 - Morbid (severe) obesity due to excess calories; Z68.43 - Body mass index [BMI] 50.0-59.9, adult Status: Acute Assessment and Plan: Once extubated she will need lifestyle changes Plan DVT prophylaxis: Eliquis Stress ulcer prophylaxis: Protonix Nutrition: Tube feeds at goal and tolerating Code Status: Full code Spoke to patient's sister who is her POA and son by phone. I updated them with patient's current status including respiratory failure failure to wean till now, CT scan results, continue need for dialysis for renal failure, prognosis, goals of care and options of trach and PEG. I answered all their questions Critical Care Time Spent: 30 minutes Due to a high probability of clinically significant, life threatening deterioration, the patient required my highest level of preparedness to intervene emergently and I personally spent this critical care time directly and personally managing the patient. This critical care time included obtaining a history; examining the patient; pulse oximetry; ordering and review of studies; arranging urgent treatment with development of a management plan; evaluation of patient's response to treatment; frequent reassessment; and discussions with other providers. It was exclusive of separately billable procedures and treating other patients and teaching time. Please see Assessment and Plan section and the rest of the note for further information on patient assessment and treatment This dictation may have been done utilizing a voice recognition system. Attempts have been made to correct errors. However, there may be uncorrected grammatical, spelling, and recognitions errors present. Subjective Date/time seen: 06/18/24 Overnight events reviewed. Afebrile Continues to be on mechanical ventilation 40% FiO2 Continues to be on vasopressors a 2 mics Continues to be sedated with Versed and fentanyl Other Vitals acceptable Tolerating tube feeds Minimal urine output Interval history: Reason for consult: Acute respiratory failure, septic shock, acute kidney injury, pulmonary edema 06/05: Intubated Review of Systems Review of Systems: ROS unobtainable: Yes unobtainable due to endotracheal tube, unobtainable due to medical condition and unobtainable due to mental status Exam Narrative: General: Morbidly obese female currently intubated and sedated in no acute distress HEENT:? Pupils equal and reactive bilaterally, sclera is clear, ETT in place Neck:, short and thick neck, Respiratory:? Decreased and coarse breath sounds bilaterally, no wheezing, Cardiac:? S1-S2 is normal, regular rate and rhythm Abdomen:? Morbid obesity, soft, hypoactive bowel sounds tenderness in right upper quadrant Extremities:? Bilateral lower extremity pitting edema improving, wrinkling of skin on the feet are noted, palpable pedal pulses. Right calf is warm, erythematous, nontender Neuro:? Patient is intubated, sedated, opens her eyes, follows simple commands in all extremities and nods to questions Skin:? Erythema in the intertriginous region and under her pannus, skin is dry and warm Psych:? Unable to assess at this time Objective Data Vital Signs Vital Signs: Vital Signs - 24 hr 06/17/24 10:00 06/17/24 09:35 06/17/24 09:35 Temperature Pulse Rate 81 84 84 Respiratory Rate 30 H 30 H Blood Pressure 114/51 L Pulse Oximetry Oxygen Delivery Fraction of Inspired Oxygen 06/17/24 10:05 06/17/24 10:20 06/17/24 10:00 Temperature Pulse Rate 81 77 79 Respiratory Rate 26 H 28 H Blood Pressure Pulse Oximetry 96 Oxygen Delivery Mechanical Ventilation Fraction of Inspired Oxygen 40 06/17/24 11:31 06/17/24 10:00 06/17/24 10:00 Temperature Pulse Rate 64 79 79 Respiratory Rate 28 H Blood Pressure 112/52 L 114/51 L Pulse Oximetry 97 Oxygen Delivery Fraction of Inspired Oxygen 06/17/24 12:00 06/17/24 12:26 06/17/24 12:00 Temperature Pulse Rate 67 67 67 Respiratory Rate 23 H Blood Pressure 109/51 L 114/52 L Pulse Oximetry Oxygen Delivery Fraction of Inspired Oxygen 06/17/24 12:00 06/17/24 12:00 06/17/24 12:00 Temperature Pulse Rate 67 67 Respiratory Rate 114 H Blood Pressure Pulse Oximetry Oxygen Delivery Fraction of Inspired Oxygen 40 06/17/24 12:00 06/17/24 12:00 06/17/24 13:30 Temperature 37.4 C Pulse Rate 67 62 Respiratory Rate 25 H 22 H Blood Pressure 109/51 L Pulse Oximetry 95 Oxygen Delivery Mechanical Ventilation Fraction of Inspired Oxygen 40 06/17/24 13:20 06/17/24 13:46 06/17/24 13:49 Temperature Pulse Rate 64 61 62 Respiratory Rate 24 H Blood Pressure 106/51 L Pulse Oximetry 97 Oxygen Delivery Mechanical Ventilation Fraction of Inspired Oxygen 40 06/17/24 13:54 06/17/24 14:00 06/17/24 14:00 Temperature Pulse Rate 65 65 65 Respiratory Rate 21 H 25 H 25 H Blood Pressure Pulse Oximetry Oxygen Delivery Fraction of Inspired Oxygen 06/17/24 14:00 06/17/24 14:00 06/17/24 14:00 Temperature Pulse Rate 65 65 65 Respiratory Rate 25 H Blood Pressure 105/50 L 105/50 L Pulse Oximetry 97 Oxygen Delivery Fraction of Inspired Oxygen 06/17/24 15:32 06/17/24 16:00 06/17/24 16:00 Temperature Pulse Rate 60 60 60 Respiratory Rate 21 H Blood Pressure 98/47 L Pulse Oximetry Oxygen Delivery Fraction of Inspired Oxygen 06/17/24 16:00 06/17/24 16:00 06/17/24 16:16 Temperature Pulse Rate 60 60 65 Respiratory Rate 21 H Blood Pressure 113/60 118/58 L Pulse Oximetry Oxygen Delivery Fraction of Inspired Oxygen 06/17/24 16:00 06/17/24 16:00 06/17/24 16:00 Temperature 36.8 C Pulse Rate 60 Respiratory Rate 21 H Blood Pressure 113/60 Pulse Oximetry 97 Oxygen Delivery Mechanical Ventilation Fraction of Inspired Oxygen 40 40 06/17/24 16:40 06/17/24 17:54 06/17/24 18:00 Temperature Pulse Rate 68 68 67 Respiratory Rate Blood Pressure 110/56 L Pulse Oximetry 93 Oxygen Delivery Mechanical Ventilation Fraction of Inspired Oxygen 40 06/17/24 18:00 06/17/24 18:00 06/17/24 18:00 Temperature Pulse Rate 67 67 67 Respiratory Rate 27 H 27 H 27 H Blood Pressure 109/49 L Pulse Oximetry 92 Oxygen Delivery Fraction of Inspired Oxygen 06/17/24 18:00 06/17/24 19:51 06/17/24 19:53 Temperature Pulse Rate 67 66 66 Respiratory Rate 27 H Blood Pressure 109/49 L Pulse Oximetry 95 Oxygen Delivery Mechanical Ventilation Fraction of Inspired Oxygen 40 06/17/24 20:01 06/17/24 19:52 06/17/24 20:00 Temperature 37.2 C Pulse Rate 66 67 66 Respiratory Rate 27 H 26 H Blood Pressure 100/47 L 110/58 L Pulse Oximetry 93 Oxygen Delivery Fraction of Inspired Oxygen 06/17/24 21:35 06/17/24 21:36 06/17/24 20:00 Temperature Pulse Rate 62 61 66 Respiratory Rate 24 H Blood Pressure 96/46 L Pulse Oximetry Oxygen Delivery Fraction of Inspired Oxygen 06/17/24 20:00 06/17/24 21:46 06/17/24 22:01 Temperature Pulse Rate 66 65 Respiratory Rate 24 H Blood Pressure 101/51 L 95/47 L Pulse Oximetry Oxygen Delivery Fraction of Inspired Oxygen 06/17/24 22:00 06/17/24 22:00 06/17/24 22:25 Temperature Pulse Rate 61 61 60 Respiratory Rate 22 H 22 H Blood Pressure 98/50 L Pulse Oximetry Oxygen Delivery Fraction of Inspired Oxygen 06/17/24 20:00 06/17/24 22:00 06/17/24 22:00 Temperature Pulse Rate 68 60 60 Respiratory Rate 23 H Blood Pressure 95/47 L Pulse Oximetry 96 Oxygen Delivery Fraction of Inspired Oxygen 06/17/24 22:32 06/17/24 20:00 06/17/24 20:00 Temperature Pulse Rate 61 Respiratory Rate Blood Pressure 110/55 L Pulse Oximetry Oxygen Delivery Mechanical Ventilation Fraction of Inspired Oxygen 40 40 06/17/24 22:51 06/17/24 23:02 06/17/24 23:23 Temperature Pulse Rate 61 65 62 Respiratory Rate Blood Pressure 106/52 L 105/53 L Pulse Oximetry 97 Oxygen Delivery Mechanical Ventilation Fraction of Inspired Oxygen 40 06/17/24 23:36 06/17/24 23:37 06/18/24 00:10 Temperature 36.6 C Pulse Rate 66 67 68 Respiratory Rate 28 H Blood Pressure 121/59 L 121/59 L 111/58 L Pulse Oximetry 92 Oxygen Delivery Fraction of Inspired Oxygen 06/18/24 00:10 06/18/24 00:00 06/18/24 00:00 Temperature Pulse Rate 70 70 70 Respiratory Rate 28 H 28 H Blood Pressure 111/58 L Pulse Oximetry Oxygen Delivery Fraction of Inspired Oxygen 06/18/24 00:00 06/18/24 00:00 06/18/24 00:00 Temperature Pulse Rate 68 Respiratory Rate Blood Pressure Pulse Oximetry Oxygen Delivery Mechanical Ventilation Fraction of Inspired Oxygen 40 40 06/18/24 01:25 06/18/24 01:34 06/18/24 01:00 Temperature Pulse Rate 68 68 68 Respiratory Rate 29 H Blood Pressure 96/46 L Pulse Oximetry 95 Oxygen Delivery Mechanical Ventilation Fraction of Inspired Oxygen 40 06/18/24 01:15 06/18/24 01:41 06/18/24 02:00 Temperature Pulse Rate 62 66 Respiratory Rate 25 H Blood Pressure 114/58 L 113/54 L Pulse Oximetry Oxygen Delivery Fraction of Inspired Oxygen 06/18/24 02:00 06/18/24 02:00 06/18/24 02:00 Temperature Pulse Rate 71 70 70 Respiratory Rate 28 H 28 H Blood Pressure Pulse Oximetry Oxygen Delivery Fraction of Inspired Oxygen 06/18/24 02:06 06/18/24 02:15 06/18/24 04:33 Temperature 36.4 C L Pulse Rate 70 69 65 Respiratory Rate 27 H Blood Pressure 113/54 L 107/48 L 110/49 L Pulse Oximetry 94 Oxygen Delivery Fraction of Inspired Oxygen 06/18/24 04:00 06/18/24 04:00 06/18/24 04:00 Temperature Pulse Rate 64 Respiratory Rate Blood Pressure Pulse Oximetry Oxygen Delivery Mechanical Ventilation Fraction of Inspired Oxygen 40 40 06/18/24 04:00 06/18/24 04:00 06/18/24 04:00 Temperature Pulse Rate 65 65 65 Respiratory Rate 27 H 27 H Blood Pressure 102/52 L Pulse Oximetry Oxygen Delivery Fraction of Inspired Oxygen 06/18/24 04:40 06/18/24 04:43 06/18/24 04:53 Temperature Pulse Rate 69 71 68 Respiratory Rate 29 H Blood Pressure 110/49 L Pulse Oximetry 94 Oxygen Delivery Mechanical Ventilation Fraction of Inspired Oxygen 40 06/18/24 05:00 06/18/24 05:38 06/18/24 06:00 Temperature Pulse Rate 68 75 78 Respiratory Rate 27 H 27 H Blood Pressure 114/57 L Pulse Oximetry Oxygen Delivery Fraction of Inspired Oxygen 06/18/24 06:00 06/18/24 06:00 06/18/24 06:00 Temperature Pulse Rate 78 78 78 Respiratory Rate 27 H Blood Pressure 114/97 H Pulse Oximetry Oxygen Delivery Fraction of Inspired Oxygen 06/18/24 06:00 06/18/24 07:30 06/18/24 07:30 Temperature Pulse Rate 78 65 65 Respiratory Rate 27 H 20 Blood Pressure 114/97 H Pulse Oximetry 91 92 Oxygen Delivery Mechanical Ventilation Fraction of Inspired Oxygen 40 06/18/24 07:52 06/18/24 08:00 06/18/24 08:00 Temperature 36.4 C Pulse Rate 63 60 61 Respiratory Rate 20 20 20 Blood Pressure 105/50 L Pulse Oximetry 96 Oxygen Delivery Fraction of Inspired Oxygen 06/18/24 08:00 06/18/24 08:58 06/18/24 08:00 Temperature Pulse Rate 61 60 61 Respiratory Rate 20 Blood Pressure 105/50 L Pulse Oximetry Oxygen Delivery Fraction of Inspired Oxygen 06/18/24 08:30 06/18/24 08:15 06/18/24 08:45 Temperature Pulse Rate 62 60 61 Respiratory Rate Blood Pressure 98/49 L 101/50 L 107/55 L Pulse Oximetry Oxygen Delivery Fraction of Inspired Oxygen 06/18/24 09:05 Temperature Pulse Rate 60 Respiratory Rate Blood Pressure 110/52 L Pulse Oximetry Oxygen Delivery Fraction of Inspired Oxygen Intake/Output Intake/Output: Intake & Output 10/25/24 10/26/24 10/27/24 10/28/24 23:59 23:59 23:59 23:59 Intake Total 2649.6 822.4 1385.4 677.0 Output Total 4200 4181 100 75 Balance -1550.4 -3358.6 1285.4 602.0 Meds/Results Medications: Active Medications Generic Name Dose Route Start Last Admin Trade Name Freq PRN Reason Stop Dose Admin Acetaminophen 650 mg 06/07/24 21:53 06/07/24 22:30 Acetaminophen Elixir 325 Mg/10.15 Ml Udc PO 650 mg Q6H PRN Administration Mild Pain (1-3) or Fever Albuterol/Ipratropium 3 ml 06/05/24 11:15 06/18/24 07:30 Ipratropium 0.5 Mg/Albuterol Sulfate 2.5 Mg Ampul.Neb 3 Ml INHALATION 3 ml Q6HRT JOHN Administration Amiodarone HCl 200 mg 06/02/24 21:00 06/18/24 08:58 Amiodarone Hcl 200 Mg Tablet PO 200 mg Q12HR JOHN Administration Apixaban 5 mg 06/06/24 09:30 06/18/24 08:58 Apixaban 5 Mg Tablet PO 5 mg Q12HR JOHN Administration Dextrose 12.5 gm 06/05/24 11:46 Dextrose 50% 25 Gm/50 Ml Syringe IV PUSH PRN PRN Hypoglycemia Protocol Epoetin Shayan-epbx 10,000 units 06/18/24 09:00 Epoetin Shayan-Epbx 10,000 Units/Ml Vial IV PUSH MOWEFR@09 JOHN Glucagon 1 mg 06/05/24 11:46 Glucagon For Inj 1 Mg Vial IM PRN PRN Hypoglycemia Protocol Glucose 15 gm 06/05/24 11:46 Glucose Oral Gel 15 Gm Of Glucse In 37.5 Gm Tube PO PRN PRN Hypoglycemia Protocol Norepinephrine Bitartrate 8 mg in 250 mls @ 3.75 mls/hr 06/05/24 00:35 06/18/24 09:05 Levophed 8 Mg/D5w 250 Ml IV CONT 0 mcg/min .Q24H JOHN 0 mls/hr Titration Protocol 2 MCG/MIN Fentanyl Citrate 2,500 mcg in 250 mls @ 5 mls/hr 06/05/24 08:35 06/18/24 08:00 Fentanyl 2,500 Mcg/Ns 250 Ml IV CONT 50 mcg/hr .Q50H JOHN 5 mls/hr Titration Protocol 50 MCG/HR Midazolam HCl 100 mg in 100 mls @ 2 mls/hr 06/05/24 08:35 06/18/24 08:00 Versed 100 Mg/Ns 100 Ml IV CONT 2 mg/hr .Q50H JOHN 2 mls/hr Titration Protocol 2 MG/HR Dextrose 1,000 mls @ 100 mls/hr 06/05/24 11:46 Dextrose 5% 1,000 Ml IVPB PRN PRN Hypoglycemia Protocol Albumin Human 50 mls @ 999 mls/hr 06/08/24 09:50 06/12/24 11:39 Albutein IVPB 07/08/24 09:49 Infused Q10M PRN Infusion HYPOTENSION Insulin Aspart 3 - 6 units 06/05/24 12:00 06/18/24 06:23 Insulin Aspart (*Bkc) 100 Units/Ml SUB-Q Not Given Q6HR JOHN Protocol Midodrine 10 mg 06/17/24 22:00 06/18/24 05:20 Midodrine Hcl 10 Mg Tablet PO 10 mg Q8H JOHN Administration Multi-Ingred Cream/Lotion/Oil/Oint 1 applic 06/05/24 09:00 06/18/24 08:58 Mineral Oil/White Petrolatum Ointment EACH EYE 1 applic Q12HR JOHN Administration Ondansetron HCl 4 mg 06/11/24 07:47 06/18/24 05:37 Ondansetron Inj 4 Mg/2 Ml Vial IV PUSH 4 mg Q6H PRN Administration Nausea And Vomiting Pantoprazole Sodium 40 mg 06/06/24 09:00 06/18/24 08:58 Pantoprazole Sodium Iv 40 Mg Vial IV PUSH 40 mg Q12HR JOHN Administration Fluticasone/Salmeterol 2 puff 06/03/24 08:00 06/14/24 12:38 Fluticasone/Salmeterol 115-21 Mcg Inhaler 1 Puff INHALATION Not Given Q12HRT JOHN Sodium Chloride 10 ml 06/05/24 06:00 06/18/24 05:20 Central Line Flush IV PUSH 10 ml Q8HR JOHN Administration Sodium Chloride 20 ml 06/05/24 03:12 Central Line Flush IV PUSH PRN PRN after blood draws Umeclidinium [place] 1 puff 06/03/24 08:00 06/14/24 12:38 Umeclidinium [place] 62.5 Mcg Ellipta INHALATION Not Given DAILYRT [facility], [facility] Radiology Results: ITS Impressions Renal Ultrasound 06/04/24 15:06 IMPRESSION: 1. Normal kidneys. No hydronephrosis. Abdomen Ultrasound 06/10/24 14:47 IMPRESSION: Fat infiltration. Enlarged left lobe of the liver. Slightly thickened wall of the gallbladder. Trace of ascites. Otherwise, normal Limited ultrasound of the abdomen. Abdomen X-Ray 06/16/24 13:54 IMPRESSION: 1. Nasogastric tube tip in the stomach. 2. Nonobstructive bowel gas pattern. 3. Diffuse lung disease, consistent with pulmonary edema versus pneumonia. 4. Cardiomegaly. Chest/Abdomen/Pelvis CT 06/17/24 10:03 IMPRESSION: 1. Diffuse lung disease, consistent with pulmonary edema versus pneumonia versus acute respiratory distress syndrome. 2. Cardiomegaly. 3. Small volume of ascites. Venous Doppler Study 06/17/24 11:49 IMPRESSION: 1. No deep venous thrombosis. Chest X-Ray 06/18/24 06:46 Impression: Extensive consolidation of the left lung with more mild patchy haziness in the right lung. Correlate for asymmetric pulmonary edema versus bilateral pneumonia. Support tubes and pacemaker device, as above. Labs Labs: Laboratory Results - last 24 hr 06/17/24 06/17/24 06/17/24 05:16 12:09 16:48 WBC RBC Hgb Hct MCV MCH MCHC RDW Plt Count MPV Immature Gran % (Auto) Neut % (Auto) Lymph % (Auto) Rowan % (Auto) Eos % (Auto) Baso % (Auto) Lymph # (Auto) Rowan # (Auto) Eos # (Auto) Baso # (Auto) Abs Immat Gran (auto) Absolute Neuts (auto) Absolute Nucleated RBC Nucleated RBC % Puncture Site ABG pH ABG pCO2 ABG pO2 ABG PO2/FiO2 Ratio ABG HCO3 ABG O2 Saturation ABG O2 Content ABG Base Excess A-a Gradient Oxyhemoglobin Carboxyhemoglobin Methemoglobin Reduced Hemoglobin Total Hemoglobin O2 Delivery Device O2 Liters/Min Minute Volume Vent Rate Vent Mode FiO2 Tidal Volume PEEP Peak Inspir Pressure Pressure Support Sodium Potassium Chloride Carbon Dioxide Anion Gap BUN Creatinine Estim Creat Clear Calc Estimated GFR Glucose POC Capillary Glucose 184 H Calcium Phosphorus Magnesium Total Bilirubin AST ALT Alkaline Phosphatase Total Protein Albumin Random Cortisol 41.40 Complement C4 30.7 06/17/24 06/18/24 06/18/24 17:15 00:02 04:33 WBC RBC Hgb Hct MCV MCH MCHC RDW Plt Count MPV Immature Gran % (Auto) Neut % (Auto) Lymph % (Auto) Rowan % (Auto) Eos % (Auto) Baso % (Auto) Lymph # (Auto) Rowan # (Auto) Eos # (Auto) Baso # (Auto) Abs Immat Gran (auto) Absolute Neuts (auto) Absolute Nucleated RBC Nucleated RBC % Puncture Site Right radial ABG pH 7.332 L ABG pCO2 42.7 ABG pO2 73.8 L ABG PO2/FiO2 Ratio 1.85 ABG HCO3 22.1 ABG O2 Saturation 93.9 L ABG O2 Content 13.9 L ABG Base Excess -3.6 A-a Gradient 162.3 Oxyhemoglobin 92.8 Carboxyhemoglobin 0.5 Methemoglobin 0.2 Reduced Hemoglobin 6.5 H Total Hemoglobin 10.6 L O2 Delivery Device Ventilator O2 Liters/Min Not Reportable Minute Volume Not Reportable Vent Rate 20 Vent Mode Cmv FiO2 40 Tidal Volume 400 PEEP 8 Peak Inspir Pressure Not Reportable Pressure Support Not Reportable Sodium Potassium Chloride Carbon Dioxide Anion Gap BUN Creatinine Estim Creat Clear Calc Estimated GFR Glucose POC Capillary Glucose 115 H 132 H Calcium Phosphorus Magnesium Total Bilirubin AST ALT Alkaline Phosphatase Total Protein Albumin Random Cortisol Complement C4 06/18/24 05:12 WBC 12.5 H RBC 3.51 L Hgb 9.6 L Hct 30.8 L MCV 87.7 MCH 27.4 MCHC 31.2 L RDW 19.6 H Plt Count 292 MPV 9.9 Immature Gran % (Auto) 0.7 H Neut % (Auto) 80.5 H Lymph % (Auto) 7.6 L Rowan % (Auto) 9.0 H Eos % (Auto) 1.9 Baso % (Auto) 0.3 Lymph # (Auto) 0.95 Rowan # (Auto) 1.1 H Eos # (Auto) 0.2 Baso # (Auto) 0.0 Abs Immat Gran (auto) 0.09 H Absolute Neuts (auto) 10.1 H Absolute Nucleated RBC 0.000 Nucleated RBC % 0.0 Puncture Site ABG pH ABG pCO2 ABG pO2 ABG PO2/FiO2 Ratio ABG HCO3 ABG O2 Saturation ABG O2 Content ABG Base Excess A-a Gradient Oxyhemoglobin Carboxyhemoglobin Methemoglobin Reduced Hemoglobin Total Hemoglobin O2 Delivery Device O2 Liters/Min Minute Volume Vent Rate Vent Mode FiO2 Tidal Volume PEEP Peak Inspir Pressure Pressure Support Sodium 130 L Potassium 4.5 Chloride 94 L Carbon Dioxide 25 Anion Gap 11 BUN 104 H D Creatinine 5.70 H Estim Creat Clear Calc 16 Estimated GFR 8 L Glucose 131 H POC Capillary Glucose Calcium 9.6 Phosphorus 6.6 H Magnesium 2.7 H Total Bilirubin 1.3 AST 122 H ALT 69 H Alkaline Phosphatase 266 H Total Protein 7.0 Albumin 3.2 L Random Cortisol Complement C4 Quality VTE Prophylaxis VTE prophylaxis: pharmacologic ordered
--- NOTE | 2024-06-18 10:27 | PCFNICU ---
ICU Rounding Note: Pt current nutrition is Nepro @ goal rate 40 ml/h. Providing 1584 kcal, 71 g protein, 640 ml free water. Nutrition recommendation: No nutrition recommendations. Continue current care plan and orders. Agree with orders. Last recorded weight is 156.5 kg. Down from 180.3 @ admission 06/06/24 Bowel Motility: +1 BM today 06/18/24 Labs Reviewed: Hgb 9.6, Hct 30.8, Alb 3.2, Na 130, BUN 104, Cre 5.7, Glu 131 Meds Noted: Fentanyl, versed, levophed, protonix Skin: No pressure injuries Additional Notes: Discussed in rounds. Breathing trial today after dialysis. Continue with current plan. Following daily in ICU rounds. Will monitor weight, labs, skin, meds, diet orders every Tuesday and Tuesday. .
[2024-06-18 11:33] LABS: Glucose Point of Care 129 mg/dl (65-105)
--- NOTE | 2024-06-18 15:46 | P.PNIM_ITS ---
Progress Note: A&P Assessment and Plan (1) Acute respiratory failure: Code(s): J96.00 - Acute respiratory failure, unspecified whether with hypoxia or hypercapnia Status: Acute Assessment and Plan: Patient originally admitted for difficulty voiding. Patient developed HoTN and hypoxia on 06/04 that worsened overnight. ABG showing 7.33/58/66.5 on HFNC. Patient brought to the ICU in the poultry farmer hours of 06/05. She had increasing O2 requirements. CXR showed bilateral diffuse pulmonary infiltrates/pulmonary edema. Respiratory failure related to pulmonary edema, pneumonia and/or ARDS Patient was placed on BiPAP but ultimately intubated on 06/05/24. Despite daily HD, CXR continues to show edema vs PNA. Remains on PEEP 8. CT Ch/A/P showing diffuse disease consider ARDS but unable to tell until she is euvolemic. CXR showing worsening consolidation in the LLL. Continue bronchodilators Fentanyl and Versed for sedation Continue dialysis for fluid removal per nephrology. Wean vent as tolerated. Appreciate pipe threading machine operator input - discussed possibly bronch. PEG, Trach planned if fails breathing trial (2) Septic shock: Code(s): A41.9 - Sepsis, unspecified organism; R65.21 - Severe sepsis with septic shock Status: Acute Assessment and Plan: Patient was HoTN in the IMU and transferred to the ICU. Septic shock possibly related to UTI, pneumonia, bacteremia. Rt IJ central line was placed and Levophed started. She received fluids, albumin and midodrine BCx and UCx 06/02 negative. BCx 06/06 grew EColi and Staph Epidermidis. EColi was pansensitive. UCx 06/06 negative. Sputum Cx 06/07 growing yeast. BCx 06/08 negative Patient was on vancomycin and cefepime which were continued. Fluconazole was discontinued given her renal dysfunction Stress dose steroids were started but are off now Cause of bacteremia probably urinary source given UA results despite UCx being negative. Completed a course and now off all abx since 06/12. 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 Having low grade fevers 06/17. LE venous doppler negative for DVT. CT Ch/A/P showing diffuse lung disease, consider PNA but otherwise no obvious source for fever. Fever probably related to atelectasis. Weaned Levophed off earlier today but now back up to 6mcg/min probably related to HD. Wean pressors as tolerated. Continue midodrine. Consider BCx since she has central line if persistent fevers (3) JOVI (acute kidney injury): Code(s): N17.9 - Acute kidney failure, unspecified Status: Acute Assessment and Plan: Baseline Cr normal in April. Cr 2.1 on admission and has worsened JOVI related to shock, sepsis, UTI/pneumonia, hypoxia, SLE flare and/or CHF. TCK levels are normal. Ueos negative. Urine lytes c/w prerenal picture but patient seems to be volume overloaded Treated with IV fluids and albumin but renal function worsening and HD recommended. Child Adolescent Psychiatrist consulted and dialysis catheter was placed 06/05 in the right IJ and exchanged for the central line HD daily with removal of anywhere from 2.9-4L per day since 06/05 (except 06/10 and 06/17) Cumulative fluid balance of -16.4L. Still appears to be fluid overloaded but much improved. Continue HD today and as she tolerates. (4) Pulmonary edema: Code(s): J81.1 - Chronic pulmonary edema Status: Acute Assessment and Plan: CT chest (06/04) showing diffuse lung disease c/w PNA vs pulmonary edema vs ARDS. COVID, RSV and influenza PCR negative Echo showing normal LV size and fxn (EF 65-70%), Grade I diastolic dysfxn, RV enlargement with normal fxn, moderate bi-atrial enlargement and mild-mod TR. Pulmonary edema likely related to diastolic CHF, PNA, JOVI, ARDS. She did not respond to Bumex CT Chest 06/17 showing: diffuse lung disease with pulm edema vs PNA vs ARDS Control fluid status with HD (5) Type 2 diabetes mellitus: Code(s): E11.9 - Type 2 diabetes mellitus without complications Status: Acute Assessment and Plan: A1c 5.7. The patient's blood glucose was reviewed on 06/18 Glucose remains reasonably well controlled. Continue AccuCheks covering with sliding scale. Hypoglycemia protocol available as needed. Continue to monitor (6) Afib: Code(s): I48.91 - Unspecified atrial fibrillation Status: Acute Assessment and Plan: HR well controlled and tele showing normal sinus. Flecainide stopped. Continue amiodarone and Eliquis (7) SLE (systemic lupus erythematosus): Code(s): M32.9 - Systemic lupus erythematosus, unspecified Status: Acute Assessment and Plan: Consider SLE flare causinig her JOVI. Was started on stress dose steroids but now off Nephrology following. (8) Liver cirrhosis secondary to HOFF[place]: Code(s): K75.81 - Nonalcoholic steatohepatitis (HOFFMANN); K74.60 - Unspecified cirrhosis of liver Status: Acute Assessment and Plan: Patient has a hx of liver cirrhosis. CT abd without contrast shows normal liver but moderate volume of ascites and body wall edema consistent with her fluid overload. Mild elevation in AST/ALT with levels that have been up and down RUQ ultrasound 06/10 showing fat infiltration, enlarged left lobe of the liver and slightly thickened wall of the gallbladder. Trace ascites. Hepatitis panel is negative [place] elevated LFTs related to congestion. Continue to monitor (9) Morbid obesity with BMI of 50.0-59.9, adult: Code(s): E66.01 - Morbid (severe) obesity due to excess calories; Z68.43 - Body mass index [BMI] 50.0-59.9, adult Status: Acute Assessment and Plan: Once extubated she will need lifestyle changes Plan DVT prophylaxis: Eliquis Code Status: Full code Subjective Date/time seen: 06/18/24 15:46 Interval history: 54yo female with AFib on anticoagulation, PM and DM here for difficulty voiding. Patient had worsening respiratory status and hypotension despite ongoing therapy and was transferred to the ICU in the poultry farmer hours of 06/05. Ce ntral line was placed and started on pressor therapy. She was intubated later that morning. No issues overnight. n/v once overnight but no recurrence. TF held but now resumed and at goal. Plan for PEG and Trach if fails SBT. Currently undergoing HD. Review of Systems Review of Systems: ROS unobtainable: Yes unobtainable due to endotracheal tube Exam Narrative: AF 97.7 99/45 69 21 95% MV Gen - intubated and on sedation. HEENT - ETT and OGT secured. Neck - Rt IJ HD catheter with pigtail in place and currently accessed Chest - coarse lung sounds anteriorly. CV - RRR S1/S2. Tele showing no significant dysrhythmias Abd - soft, morbidly obese, persistent flank and abd wall edema. - Lai secured with scant amount of dark yellow urine in the bag Ext - bilateral LE pitting pedal edema with improvement overall Neuro - sedated but awakens easily and follows commands Skin - Warm and dry Objective Data Vital Signs Vital Signs: Vital Signs - 24 hr 06/17/24 16:00 06/17/24 16:00 06/17/24 16:00 Temperature Pulse Rate 60 60 60 Respiratory Rate 21 H 21 H Blood Pressure Pulse Oximetry Oxygen Delivery Fraction of Inspired Oxygen 06/17/24 16:00 06/17/24 16:16 06/17/24 16:00 Temperature Pulse Rate 60 65 Respiratory Rate Blood Pressure 113/60 118/58 L Pulse Oximetry Oxygen Delivery Fraction of Inspired Oxygen 40 06/17/24 16:00 06/17/24 16:00 06/17/24 16:40 Temperature 98.2 F Pulse Rate 60 68 Respiratory Rate 21 H Blood Pressure 113/60 Pulse Oximetry 97 93 Oxygen Delivery Mechanical Ventilation Mechanical Ventilation Fraction of Inspired Oxygen 40 40 06/17/24 17:54 06/17/24 18:00 06/17/24 18:00 Temperature Pulse Rate 68 67 67 Respiratory Rate 27 H Blood Pressure 110/56 L 109/49 L Pulse Oximetry 92 Oxygen Delivery Fraction of Inspired Oxygen 06/17/24 18:00 06/17/24 18:00 06/17/24 18:00 Temperature Pulse Rate 67 67 67 Respiratory Rate 27 H 27 H Blood Pressure 109/49 L Pulse Oximetry Oxygen Delivery Fraction of Inspired Oxygen 06/17/24 19:51 06/17/24 19:53 06/17/24 20:01 Temperature Pulse Rate 66 66 66 Respiratory Rate 27 H 27 H Blood Pressure Pulse Oximetry 95 Oxygen Delivery Mechanical Ventilation Fraction of Inspired Oxygen 40 06/17/24 19:52 06/17/24 20:00 06/17/24 21:35 Temperature 99.0 F Pulse Rate 67 66 62 Respiratory Rate 26 H Blood Pressure 100/47 L 110/58 L 96/46 L Pulse Oximetry 93 Oxygen Delivery Fraction of Inspired Oxygen 06/17/24 21:36 06/17/24 20:00 06/17/24 20:00 Temperature Pulse Rate 61 66 66 Respiratory Rate 24 H 24 H Blood Pressure Pulse Oximetry Oxygen Delivery Fraction of Inspired Oxygen 06/17/24 21:46 06/17/24 22:01 06/17/24 22:00 Temperature Pulse Rate 65 61 Respiratory Rate 22 H Blood Pressure 101/51 L 95/47 L Pulse Oximetry Oxygen Delivery Fraction of Inspired Oxygen 06/17/24 22:00 06/17/24 22:25 06/17/24 20:00 Temperature Pulse Rate 61 60 68 Respiratory Rate 22 H Blood Pressure 98/50 L Pulse Oximetry Oxygen Delivery Fraction of Inspired Oxygen 06/17/24 22:00 06/17/24 22:00 06/17/24 22:32 Temperature Pulse Rate 60 60 61 Respiratory Rate 23 H Blood Pressure 95/47 L 110/55 L Pulse Oximetry 96 Oxygen Delivery Fraction of Inspired Oxygen 06/17/24 20:00 06/17/24 20:00 06/17/24 22:51 Temperature Pulse Rate 61 Respiratory Rate Blood Pressure 106/52 L Pulse Oximetry Oxygen Delivery Mechanical Ventilation Fraction of Inspired Oxygen 40 40 06/17/24 23:02 06/17/24 23:23 06/17/24 23:36 Temperature Pulse Rate 65 62 66 Respiratory Rate Blood Pressure 105/53 L 121/59 L Pulse Oximetry 97 Oxygen Delivery Mechanical Ventilation Fraction of Inspired Oxygen 40 06/17/24 23:37 06/18/24 00:10 06/18/24 00:10 Temperature 97.8 F Pulse Rate 67 68 70 Respiratory Rate 28 H Blood Pressure 121/59 L 111/58 L 111/58 L Pulse Oximetry 92 Oxygen Delivery Fraction of Inspired Oxygen 06/18/24 00:00 06/18/24 00:00 06/18/24 00:00 Temperature Pulse Rate 70 70 68 Respiratory Rate 28 H 28 H Blood Pressure Pulse Oximetry Oxygen Delivery Fraction of Inspired Oxygen 06/18/24 00:00 06/18/24 00:00 06/18/24 01:25 Temperature Pulse Rate 68 Respiratory Rate Blood Pressure Pulse Oximetry 95 Oxygen Delivery Mechanical Ventilation Mechanical Ventilation Fraction of Inspired Oxygen 40 40 40 06/18/24 01:34 06/18/24 01:00 06/18/24 01:15 Temperature Pulse Rate 68 68 62 Respiratory Rate 29 H Blood Pressure 96/46 L 114/58 L Pulse Oximetry Oxygen Delivery Fraction of Inspired Oxygen 06/18/24 01:41 06/18/24 02:00 06/18/24 02:00 Temperature Pulse Rate 66 71 Respiratory Rate 25 H Blood Pressure 113/54 L Pulse Oximetry Oxygen Delivery Fraction of Inspired Oxygen 06/18/24 02:00 06/18/24 02:00 06/18/24 02:06 Temperature Pulse Rate 70 70 70 Respiratory Rate 28 H 28 H Blood Pressure 113/54 L Pulse Oximetry Oxygen Delivery Fraction of Inspired Oxygen 06/18/24 02:15 06/18/24 04:33 06/18/24 04:00 Temperature 97.5 F L Pulse Rate 69 65 64 Respiratory Rate 27 H Blood Pressure 107/48 L 110/49 L Pulse Oximetry 94 Oxygen Delivery Fraction of Inspired Oxygen 06/18/24 04:00 06/18/24 04:00 06/18/24 04:00 Temperature Pulse Rate 65 Respiratory Rate 27 H Blood Pressure Pulse Oximetry Oxygen Delivery Mechanical Ventilation Fraction of Inspired Oxygen 40 40 06/18/24 04:00 06/18/24 04:00 06/18/24 04:40 Temperature Pulse Rate 65 65 69 Respiratory Rate 27 H Blood Pressure 102/52 L 110/49 L Pulse Oximetry Oxygen Delivery Fraction of Inspired Oxygen 06/18/24 04:43 06/18/24 04:53 06/18/24 05:00 Temperature Pulse Rate 71 68 68 Respiratory Rate 29 H Blood Pressure 114/57 L Pulse Oximetry 94 Oxygen Delivery Mechanical Ventilation Fraction of Inspired Oxygen 40 06/18/24 05:38 06/18/24 06:00 06/18/24 06:00 Temperature Pulse Rate 75 78 78 Respiratory Rate 27 H 27 H 27 H Blood Pressure Pulse Oximetry Oxygen Delivery Fraction of Inspired Oxygen 06/18/24 06:00 06/18/24 06:00 06/18/24 06:00 Temperature Pulse Rate 78 78 78 Respiratory Rate 27 H Blood Pressure 114/97 H 114/97 H Pulse Oximetry 91 Oxygen Delivery Fraction of Inspired Oxygen 06/18/24 07:30 06/18/24 07:30 06/18/24 07:52 Temperature Pulse Rate 65 65 63 Respiratory Rate 20 20 Blood Pressure Pulse Oximetry 92 Oxygen Delivery Mechanical Ventilation Fraction of Inspired Oxygen 40 06/18/24 08:00 06/18/24 08:00 06/18/24 08:00 Temperature 97.6 F Pulse Rate 60 61 61 Respiratory Rate 20 20 20 Blood Pressure 105/50 L Pulse Oximetry 96 Oxygen Delivery Fraction of Inspired Oxygen 06/18/24 08:58 06/18/24 08:00 06/18/24 08:30 Temperature Pulse Rate 60 61 62 Respiratory Rate Blood Pressure 105/50 L 98/49 L Pulse Oximetry Oxygen Delivery Fraction of Inspired Oxygen 06/18/24 08:15 06/18/24 08:45 06/18/24 09:05 Temperature Pulse Rate 60 61 60 Respiratory Rate Blood Pressure 101/50 L 107/55 L 110/52 L Pulse Oximetry Oxygen Delivery Fraction of Inspired Oxygen 06/18/24 08:00 06/18/24 08:00 06/18/24 10:00 Temperature Pulse Rate 61 62 Respiratory Rate 20 20 Blood Pressure 90/47 L Pulse Oximetry 95 95 Oxygen Delivery Fraction of Inspired Oxygen 40 06/18/24 10:52 06/18/24 08:00 06/18/24 10:00 Temperature Pulse Rate 63 60 62 Respiratory Rate Blood Pressure Pulse Oximetry 96 Oxygen Delivery Mechanical Ventilation Fraction of Inspired Oxygen 40 06/18/24 10:00 06/18/24 10:00 06/18/24 10:00 Temperature Pulse Rate 62 62 62 Respiratory Rate 20 20 Blood Pressure 95/46 L Pulse Oximetry Oxygen Delivery Fraction of Inspired Oxygen 06/18/24 11:58 06/18/24 11:58 06/18/24 11:59 Temperature Pulse Rate 60 60 60 Respiratory Rate 20 20 Blood Pressure 93/45 L Pulse Oximetry Oxygen Delivery Fraction of Inspired Oxygen 06/18/24 12:00 06/18/24 12:15 06/18/24 12:32 Temperature 97.9 F Pulse Rate 60 60 60 Respiratory Rate 23 H Blood Pressure 95/46 L 95/46 L 94/44 L Pulse Oximetry 96 Oxygen Delivery Fraction of Inspired Oxygen 06/18/24 12:48 06/18/24 12:00 06/18/24 12:00 Temperature Pulse Rate 60 60 Respiratory Rate 20 Blood Pressure 95/50 L Pulse Oximetry 97 Oxygen Delivery Mechanical Ventilation Fraction of Inspired Oxygen 40 40 06/18/24 12:00 06/18/24 13:04 06/18/24 13:12 Temperature Pulse Rate 60 60 62 Respiratory Rate Blood Pressure 105/44 L Pulse Oximetry 94 Oxygen Delivery Mechanical Ventilation Fraction of Inspired Oxygen 40 06/18/24 13:12 06/18/24 13:29 06/18/24 13:15 Temperature Pulse Rate 62 60 60 Respiratory Rate 20 20 Blood Pressure 106/46 L Pulse Oximetry Oxygen Delivery Fraction of Inspired Oxygen 06/18/24 13:30 06/18/24 13:46 06/18/24 14:04 Temperature Pulse Rate 60 60 65 Respiratory Rate 20 Blood Pressure 116/48 L 108/46 L Pulse Oximetry Oxygen Delivery Fraction of Inspired Oxygen 06/18/24 14:04 06/18/24 14:04 06/18/24 14:00 Temperature Pulse Rate 65 60 67 Respiratory Rate 20 Blood Pressure 102/48 L Pulse Oximetry Oxygen Delivery Fraction of Inspired Oxygen 06/18/24 14:15 06/18/24 14:37 06/18/24 14:37 Temperature 98.8 F Pulse Rate 66 66 Respiratory Rate 20 Blood Pressure 120/53 L 114/55 L Pulse Oximetry 96 Oxygen Delivery Fraction of Inspired Oxygen 40 06/18/24 15:00 06/18/24 15:30 06/18/24 14:45 Temperature Pulse Rate 68 68 66 Respiratory Rate Blood Pressure 103/47 L 101/45 L 108/51 L Pulse Oximetry Oxygen Delivery Fraction of Inspired Oxygen 06/18/24 15:15 06/18/24 14:00 Temperature Pulse Rate 69 60 Respiratory Rate 20 Blood Pressure 97/41 L 102/48 L Pulse Oximetry 93 Oxygen Delivery Fraction of Inspired Oxygen Intake/Output Intake/Output: Intake & Output 06/15/24 06/16/24 06/17/24 06/18/24 23:59 23:59 23:59 23:59 Intake Total 2649.6 822.4 1385.4 742.9 Output Total 4200 4181 100 75 Balance -1550.4 -3358.6 1285.4 667.9 Meds/Results Medications: Active Medications Generic Name Dose Route Start Last Admin Trade Name Freq PRN Reason Stop Dose Admin Acetaminophen 650 mg 06/07/24 21:53 06/07/24 22:30 Acetaminophen Elixir 325 Mg/10.15 Ml Udc PO 650 mg Q6H PRN Administration Mild Pain (1-3) or Fever Albuterol/Ipratropium 3 ml 06/05/24 11:15 06/18/24 13:12 Ipratropium 0.5 Mg/Albuterol Sulfate 2.5 Mg Ampul.Neb 3 Ml INHALATION 3 ml Q6HRT JOHN Administration Amiodarone HCl 200 mg 06/02/24 21:00 06/18/24 08:58 Amiodarone Hcl 200 Mg Tablet PO 200 mg Q12HR JOHN Administration Apixaban 5 mg 06/06/24 09:30 06/18/24 08:58 Apixaban 5 Mg Tablet PO 5 mg Q12HR JOHN Administration Dextrose 12.5 gm 06/05/24 11:46 Dextrose 50% 25 Gm/50 Ml Syringe IV PUSH PRN PRN Hypoglycemia Protocol Epoetin Shayan-epbx 10,000 units 06/18/24 09:00 Epoetin Shayan-Epbx 10,000 Units/Ml Vial IV PUSH MOWEFR@09 JOHN Glucagon 1 mg 06/05/24 11:46 Glucagon For Inj 1 Mg Vial IM PRN PRN Hypoglycemia Protocol Glucose 15 gm 06/05/24 11:46 Glucose Oral Gel 15 Gm Of Glucse In 37.5 Gm Tube PO PRN PRN Hypoglycemia Protocol Norepinephrine Bitartrate 8 mg in 250 mls @ 11.25 mls/hr 06/05/24 00:35 06/18/24 14:04 Levophed 8 Mg/D5w 250 Ml IV CONT 6 mcg/min .[id number] JOHN 11.25 mls/hr Titration Protocol 6 MCG/MIN Fentanyl Citrate 2,500 mcg in 250 mls @ 5 mls/hr 06/05/24 08:35 06/18/24 14:04 Fentanyl 2,500 Mcg/Ns 250 Ml IV CONT 50 mcg/hr .Q50H JOHN 5 mls/hr Titration Protocol 50 MCG/HR Midazolam HCl 100 mg in 100 mls @ 2 mls/hr 06/05/24 08:35 06/18/24 14:04 Versed 100 Mg/Ns 100 Ml IV CONT 2 mg/hr .Q50H JOHN 2 mls/hr Titration Protocol 2 MG/HR Dextrose 1,000 mls @ 100 mls/hr 06/05/24 11:46 Dextrose 5% 1,000 Ml IVPB PRN PRN Hypoglycemia Protocol Albumin Human 50 mls @ 999 mls/hr 06/08/24 09:50 06/12/24 11:39 Albutein IVPB 07/08/24 09:49 Infused Q10M PRN Infusion HYPOTENSION Insulin Aspart 3 - 6 units 06/05/24 12:00 06/18/24 11:56 Insulin Aspart (*Bkc) 100 Units/Ml SUB-Q Not Given Q6HR JOHN Protocol Midodrine 10 mg 06/17/24 22:00 06/18/24 14:03 Midodrine Hcl 10 Mg Tablet PO 10 mg Q8H JOHN Administration Multi-Ingred Cream/Lotion/Oil/Oint 1 applic 06/05/24 09:00 06/18/24 08:58 Mineral Oil/White Petrolatum Ointment EACH EYE 1 applic Q12HR JOHN Administration Ondansetron HCl 4 mg 06/11/24 07:47 06/18/24 05:37 Ondansetron Inj 4 Mg/2 Ml Vial IV PUSH 4 mg Q6H PRN Administration Nausea And Vomiting Pantoprazole Sodium 40 mg 06/06/24 09:00 06/18/24 08:58 Pantoprazole Sodium Iv 40 Mg Vial IV PUSH 40 mg Q12HR JOHN Administration Fluticasone/Salmeterol 2 puff 06/03/24 08:00 06/14/24 12:38 Fluticasone/Salmeterol 115-21 Mcg Inhaler 1 Puff INHALATION Not Given Q12HRT [facility] Sodium Chloride 10 ml 06/05/24 06:00 06/18/24 14:11 Central Line Flush IV PUSH 10 ml Q8HR JOHN Administration Sodium Chloride 20 ml 06/05/24 03:12 Central Line Flush IV PUSH PRN PRN after blood draws Umeclidinium [place] 1 puff 06/03/24 08:00 06/14/24 12:38 Umeclidinium [place] 62.5 Mcg Ellipta INHALATION Not Given DAILYRT [facility] Radiology Results: ITS Impressions Renal Ultrasound 06/04/24 15:06 IMPRESSION: 1. Normal kidneys. No hydronephrosis. Abdomen Ultrasound 06/10/24 14:47 IMPRESSION: Fat infiltration. Enlarged left lobe of the liver. Slightly thickened wall of the gallbladder. Trace of ascites. Otherwise, normal Limited ultrasound of the abdomen. Abdomen X-Ray 06/16/24 13:54 IMPRESSION: 1. Nasogastric tube tip in the stomach. 2. Nonobstructive bowel gas pattern. 3. Diffuse lung disease, consistent with pulmonary edema versus pneumonia. 4. Cardiomegaly. Chest/Abdomen/Pelvis CT 06/17/24 10:03 IMPRESSION: 1. Diffuse lung disease, consistent with pulmonary edema versus pneumonia versus acute respiratory distress syndrome. 2. Cardiomegaly. 3. Small volume of ascites. Venous Doppler Study 06/17/24 11:49 IMPRESSION: 1. No deep venous thrombosis. Chest X-Ray 06/18/24 06:46 Impression: Extensive consolidation of the left lung with more mild patchy haziness in the right lung. Correlate for asymmetric pulmonary edema versus bilateral pneumonia. Support tubes and pacemaker device, as above. Labs Labs: Laboratory Results - last 24 hr 06/17/24 06/17/24 06/18/24 16:48 17:15 00:02 WBC RBC Hgb Hct MCV MCH MCHC RDW Plt Count MPV Immature Gran % (Auto) Neut % (Auto) Lymph % (Auto) [place] % (Auto) Eos % (Auto) Baso % (Auto) Lymph # (Auto) [place] # (Auto) Eos # (Auto) Baso # (Auto) Abs Immat Gran (auto) Absolute Neuts (auto) Absolute Nucleated RBC Nucleated RBC % Puncture Site ABG pH ABG pCO2 ABG pO2 ABG PO2/FiO2 Ratio ABG HCO3 ABG O2 Saturation ABG O2 Content ABG Base Excess A-a Gradient Oxyhemoglobin Carboxyhemoglobin Methemoglobin Reduced Hemoglobin Total Hemoglobin O2 Delivery Device O2 Liters/Min Minute Volume Vent Rate Vent Mode FiO2 Tidal Volume PEEP Peak Inspir Pressure Pressure Support Sodium Potassium Chloride Carbon Dioxide Anion Gap BUN Creatinine Estim Creat Clear Calc Estimated GFR Glucose POC Capillary Glucose 115 H 132 H Calcium Phosphorus Magnesium Total Bilirubin AST ALT Alkaline Phosphatase Total Protein Albumin Complement C4 30.7 06/18/24 06/18/24 06/18/24 04:33 05:12 11:28 WBC 12.5 H RBC 3.51 L Hgb 9.6 L Hct 30.8 L MCV 87.7 MCH 27.4 MCHC 31.2 L RDW 19.6 H Plt Count 292 MPV 9.9 Immature Gran % (Auto) 0.7 H Neut % (Auto) 80.5 H Lymph % (Auto) 7.6 L [place] % (Auto) 9.0 H Eos % (Auto) 1.9 Baso % (Auto) 0.3 Lymph # (Auto) 0.95 [place] # (Auto) 1.1 H Eos # (Auto) 0.2 Baso # (Auto) 0.0 Abs Immat Gran (auto) 0.09 H Absolute Neuts (auto) 10.1 H Absolute Nucleated RBC 0.000 Nucleated RBC % 0.0 Puncture Site Right radial ABG pH 7.332 L ABG pCO2 42.7 ABG pO2 73.8 L ABG PO2/FiO2 Ratio 1.85 ABG HCO3 22.1 ABG O2 Saturation 93.9 L ABG O2 Content 13.9 L ABG Base Excess -3.6 A-a Gradient 162.3 Oxyhemoglobin 92.8 Carboxyhemoglobin 0.5 Methemoglobin 0.2 Reduced Hemoglobin 6.5 H Total Hemoglobin 10.6 L O2 Delivery Device Ventilator O2 Liters/Min Not Reportable Minute Volume Not Reportable Vent Rate 20 Vent Mode Cmv FiO2 40 Tidal Volume 400 PEEP 8 Peak Inspir Pressure Not Reportable Pressure Support Not Reportable Sodium 130 L Potassium 4.5 Chloride 94 L Carbon Dioxide 25 Anion Gap 11 BUN 104 H D Creatinine 5.70 H Estim Creat Clear Calc 16 Estimated GFR 8 L Glucose 131 H POC Capillary Glucose 129 H Calcium 9.6 Phosphorus 6.6 H Magnesium 2.7 H Total Bilirubin 1.3 AST 122 H ALT 69 H Alkaline Phosphatase 266 H Total Protein 7.0 Albumin 3.2 L Complement C4
--- NOTE | 2024-06-18 16:15 | P.PNNP_ITS ---
Progress Note: A&P Assessment and Plan (1) JOVI (acute kidney injury): Code(s): N17.9 - Acute kidney failure, unspecified Status: Acute Assessment and Plan: * normal creatinine ~ 1 month ago * admitted with a creatinine of 2.1mg/dl with ongoing worsening noted * due to multifactorial ATN: * hemodynamic instability/shock * sepsis * infection (UTI +/- pneumonia) -- although culture negative to date * hypoxia * SLE flare (?) * other? * evaluation to date noted: * renal ultrasound negative for obstruction * urine eosinophils negative * urine electrolytes pre-renal (in spite of evidence of volume overload) * CPK low * moderate proteinuria (~ 600mg) * UA with blood and protein (and negative urine culture) * complements normal (arguing against lupus flare) * has been dialysis dependent since 06/05 * s/p daily dialysis alternating with DUF (except Sundays) to facilitate euvolemia * HD today * transition to Tue/Tue/Tuesday schedule * follow repeat labs and UOP to assess for potential renal recovery (2) Acute respiratory failure: Code(s): J96.00 - Acute respiratory failure, unspecified whether with hypoxia or hypercapnia Status: Acute Assessment and Plan: * intubated on 06/05 for impending respiratory failure * failed BiPAP therapy * ABG with noted hypercapnea and hypoxia * secondary to pulmonary edema, diffuse bilateral infiltrates and ARDS * on bronchodilators * weaned off steroids * continue dialyis/dry ultrafiltration for fluid removal (3) Septic shock: Code(s): A41.9 - Sepsis, unspecified organism; R65.21 - Severe sepsis with septic shock Status: Acute Assessment and Plan: * initially thought to be secondary to UTI and pneumonia * remains on low dose levophed therapy to maintain MAP * Echo results noted * continue midodrine * culture data noted: * blood/urine cultures from 06/02 negative * blood culture 06/06 with E. coli and Staph epidermidis * urine culture on 06/06 negative. * blood culture on 06/08 negative * off all antibiotics at this time (since 06/12) * wean levophed as tolerated * follow trend of hemodynamics (4) Pulmonary edema: Code(s): J81.1 - Chronic pulmonary edema Status: Acute Assessment and Plan: * contributing to #2 * secondary to JOVI/ARF but ARDS an issues as well * failed diuretic therapy * HD alternating with DUF for daily fluid removal (5) Afib: Code(s): I48.91 - Unspecified atrial fibrillation Status: Acute Assessment and Plan: * rate control stratgey * on amiodarone and Eliquis (6) Anemia: Code(s): D64.9 - Anemia, unspecified Status: Acute Assessment and Plan: * related to JOVI and acute/critical illness * KIRILL with HD as needed * follow trend of H/H (7) Liver cirrhosis secondary to HOFFMANN: Code(s): K75.81 - Nonalcoholic steatohepatitis (HOFFMANN); K74.60 - Unspecified cirrhosis of liver Status: Acute Assessment and Plan: * known history * normal liver by recent imaging * noted elevations in AST/ALT that have been up and down * fluctuating LFTS thought to be more related to congestion/volume overload * continue to follow (8) Type 2 diabetes mellitus: Code(s): E11.9 - Type 2 diabetes mellitus without complications Status: Acute Assessment and Plan: * follow accu-cheks * glycemic control per patient care provider/hospitalist Will continue to follow. Subjective Date/time seen: 06/18/24 16:15 Interval history: Follow-up for acute kidney injury/acute renal failure with dialysis dependence. Tolerating dialysis at the time of my visit (seen on HD at 4:05PM); remains intubated/sedated and on mechanical ventilation; despite daily dialysis/dry ultrafiltration for the last 2 weeks, she does appear to have had much progress in terms of weaning from the ventilator; discussion with family regarding possible need for tracheostomy and G-tube placement. Exam Narrative: General: large female intubated/sedated on mechanical ventilator Heart: normal S1 and S2; no rub Lungs: coarse breath sounds; decreased at bases Abdomen: obese but soft, nontender, nondistended, positive bowel sounds Extremities: no cyanosis or clubbing; 2+ edema Skin: no nodules Objective Data Vital Signs Vital Signs: Vital Signs Temp Pulse Resp BP Pulse Ox O2 Del Method FiO2 06/18/24 16:00 70 21 H 95 Mechanical Ventilation 40 06/18/24 16:00 97.7 F 70 21 H 103/48 L 95 06/18/24 15:59 69 100/43 L 06/18/24 15:59 69 20 06/18/24 15:58 68 20 06/18/24 14:00 60 20 102/48 L 93 06/18/24 15:45 68 99/46 L 06/18/24 15:15 69 97/41 L 06/18/24 14:45 66 108/51 L 06/18/24 18:00 69 105/48 L 06/18/24 17:45 68 113/56 L 06/18/24 17:30 70 103/51 L 06/18/24 16:45 68 107/48 L 06/18/24 16:30 69 99/45 L 06/18/24 16:15 70 103/48 L 06/18/24 16:00 69 100/43 L 06/18/24 15:30 68 101/45 L 06/18/24 15:00 68 103/47 L 06/18/24 14:37 66 114/55 L 06/18/24 14:37 40 06/18/24 14:15 98.8 F 66 20 120/53 L 96 06/18/24 14:00 67 06/18/24 14:04 60 102/48 L 06/18/24 14:04 65 20 06/18/24 14:04 65 20 06/18/24 13:46 60 108/46 L 06/18/24 13:30 60 116/48 L 06/18/24 13:15 60 106/46 L 06/18/24 13:29 60 20 06/18/24 13:12 62 20 06/18/24 13:12 62 94 Mechanical Ventilation 40 06/18/24 13:04 60 105/44 L 06/18/24 12:00 60 06/18/24 12:00 40 06/18/24 12:00 60 20 97 Mechanical Ventilation 40 06/18/24 12:48 60 95/50 L 06/18/24 12:32 60 94/44 L 06/18/24 12:15 60 95/46 L 06/18/24 12:00 97.9 F 60 23 H 95/46 L 96 06/18/24 11:59 60 93/45 L 06/18/24 11:58 60 20 06/18/24 11:58 60 20 06/18/24 10:00 62 95/46 L 06/18/24 10:00 62 20 06/18/24 10:00 62 20 06/18/24 10:00 62 06/18/24 08:00 60 06/18/24 10:52 63 96 Mechanical Ventilation 40 06/18/24 10:00 62 20 90/47 L 95 06/18/24 08:00 40 06/18/24 08:00 61 20 95 06/18/24 09:05 60 110/52 L 06/18/24 08:45 61 107/55 L 06/18/24 08:15 60 101/50 L 06/18/24 08:30 62 98/49 L 06/18/24 08:00 61 105/50 L 06/18/24 08:58 60 06/18/24 08:00 61 20 06/18/24 08:00 61 20 06/18/24 08:00 97.6 F 60 20 105/50 L 96 06/18/24 07:52 63 20 06/18/24 07:30 65 20 06/18/24 07:30 65 92 Mechanical Ventilation 40 06/18/24 06:00 78 27 H 114/97 H 91 06/18/24 06:00 78 06/18/24 06:00 78 114/97 H 06/18/24 06:00 78 27 H 06/18/24 06:00 78 27 H 06/18/24 05:38 75 27 H 06/18/24 05:00 68 114/57 L 06/18/24 04:53 68 94 Mechanical Ventilation 40 06/18/24 04:43 71 29 H 06/18/24 04:40 69 110/49 L 06/18/24 04:00 65 102/52 L 06/18/24 04:00 65 27 H 06/18/24 04:00 65 27 H 06/18/24 04:00 40 06/18/24 04:00 Mechanical Ventilation 40 06/18/24 04:00 64 06/18/24 04:33 97.5 F L 65 27 H 110/49 L 94 06/18/24 02:15 69 107/48 L 06/18/24 02:06 70 113/54 L 06/18/24 02:00 70 28 H 06/18/24 02:00 70 28 H 06/18/24 02:00 71 06/18/24 02:00 113/54 L 06/18/24 01:41 66 25 H 06/18/24 01:15 62 114/58 L 06/18/24 01:00 68 96/46 L 06/18/24 01:34 68 29 H 06/18/24 01:25 68 95 Mechanical Ventilation 40 06/18/24 00:00 40 06/18/24 00:00 Mechanical Ventilation 40 06/18/24 00:00 68 06/18/24 00:00 70 28 H 06/18/24 00:00 70 28 H 06/18/24 00:10 70 111/58 L 06/18/24 00:10 97.8 F 68 28 H 111/58 L 92 06/17/24 23:37 67 121/59 L 06/17/24 23:36 66 121/59 L 06/17/24 23:23 62 97 Mechanical Ventilation 40 06/17/24 23:02 65 105/53 L 06/17/24 22:51 61 106/52 L 06/17/24 20:00 40 06/17/24 20:00 Mechanical Ventilation 40 06/17/24 22:32 61 110/55 L 06/17/24 22:00 60 06/17/24 22:00 60 23 H 95/47 L 96 06/17/24 20:00 68 06/17/24 22:25 60 98/50 L 06/17/24 22:00 61 22 H 06/17/24 22:00 61 22 H 06/17/24 22:01 95/47 L 06/17/24 21:46 65 101/51 L 06/17/24 20:00 66 24 H 06/17/24 20:00 66 24 H 06/17/24 21:36 61 06/17/24 21:35 62 96/46 L 06/17/24 20:00 66 110/58 L 06/17/24 19:52 99.0 F 67 26 H 100/47 L 93 06/17/24 20:01 66 27 H 06/17/24 19:53 66 95 Mechanical Ventilation 40 06/17/24 19:51 66 27 H Intake/Output Intake/Output: Intake & Output 06/15/24 06/16/24 06/17/24 06/18/24 23:59 23:59 23:59 23:59 Intake Total 2649.6 822.4 1385.4 1248.9 Output Total 4200 4181 100 150 Balance -1550.4 -3358.6 1285.4 1098.9 Meds/Results Medications: Active Medications Generic Name Dose Route Start Last Admin Trade Name Freq PRN Reason Stop Dose Admin Acetaminophen 650 mg 06/07/24 21:53 06/07/24 22:30 Acetaminophen Elixir 325 Mg/10.15 Ml Udc PO 650 mg Q6H PRN Administration Mild Pain (1-3) or Fever Albuterol/Ipratropium 3 ml 06/05/24 11:15 06/18/24 13:12 Ipratropium 0.5 Mg/Albuterol Sulfate 2.5 Mg Ampul.Neb 3 Ml INHALATION 3 ml Q6HRT JOHN Administration Amiodarone HCl 200 mg 06/02/24 21:00 06/18/24 08:58 Amiodarone Hcl 200 Mg Tablet PO 200 mg Q12HR JOHN Administration Apixaban 5 mg 06/06/24 09:30 06/18/24 08:58 Apixaban 5 Mg Tablet PO 5 mg Q12HR JOHN Administration Dextrose 12.5 gm 06/05/24 11:46 Dextrose 50% 25 Gm/50 Ml Syringe IV PUSH PRN PRN Hypoglycemia Protocol Epoetin Shayan-epbx 10,000 units 06/18/24 09:00 06/18/24 17:41 Epoetin Shayan-Epbx 10,000 Units/Ml Vial IV PUSH 10,000 units MOWEFR@09 JOHN Administration Glucagon 1 mg 06/05/24 11:46 Glucagon For Inj 1 Mg Vial IM PRN PRN Hypoglycemia Protocol Glucose 15 gm 06/05/24 11:46 Glucose Oral Gel 15 Gm Of Glucse In 37.5 Gm Tube PO PRN PRN Hypoglycemia Protocol Norepinephrine Bitartrate 8 mg in 250 mls @ 11.25 mls/hr 06/05/24 00:35 06/18/24 18:04 Levophed 8 Mg/D5w 250 Ml IV CONT 6 mcg/min .[id number] JOHN 11.25 mls/hr Titration Protocol 6 MCG/MIN Fentanyl Citrate 2,500 mcg in 250 mls @ 5 mls/hr 06/05/24 08:35 06/18/24 18:04 Fentanyl 2,500 Mcg/Ns 250 Ml IV CONT 50 mcg/hr .Q50H JOHN 5 mls/hr Titration Protocol 50 MCG/HR Midazolam HCl 100 mg in 100 mls @ 2 mls/hr 06/05/24 08:35 06/18/24 18:04 Versed 100 Mg/Ns 100 Ml IV CONT 2 mg/hr .Q50H JOHN 2 mls/hr Titration Protocol 2 MG/HR Dextrose 1,000 mls @ 100 mls/hr 06/05/24 11:46 Dextrose 5% 1,000 Ml IVPB PRN PRN Hypoglycemia Protocol Albumin Human 50 mls @ 999 mls/hr 06/08/24 09:50 06/12/24 11:39 Albutein IVPB 07/08/24 09:49 Infused Q10M PRN Infusion HYPOTENSION Insulin Aspart 3 - 6 units 06/05/24 12:00 06/18/24 18:06 Insulin Aspart (*Bkc) 100 Units/Ml SUB-Q Not Given Q6HR JOHN Protocol Midodrine 10 mg 06/17/24 22:00 06/18/24 14:03 Midodrine Hcl 10 Mg Tablet PO 10 mg Q8H JOHN Administration Multi-Ingred Cream/Lotion/Oil/Oint 1 applic 06/05/24 09:00 06/18/24 08:58 Mineral Oil/White Petrolatum Ointment EACH EYE 1 applic Q12HR JOHN Administration Ondansetron HCl 4 mg 06/11/24 07:47 06/18/24 05:37 Ondansetron Inj 4 Mg/2 Ml Vial IV PUSH 4 mg Q6H PRN Administration Nausea And Vomiting Pantoprazole Sodium 40 mg 06/06/24 09:00 06/18/24 08:58 Pantoprazole Sodium Iv 40 Mg Vial IV PUSH 40 mg Q12HR JOHN Administration Fluticasone/Salmeterol 2 puff 06/03/24 08:00 06/14/24 12:38 Fluticasone/Salmeterol 115-21 Mcg Inhaler 1 Puff INHALATION Not Given Q12HRT JOHN Sodium Chloride 10 ml 06/05/24 06:00 06/18/24 14:11 Central Line Flush IV PUSH 10 ml Q8HR JOHN Administration Sodium Chloride 20 ml 06/05/24 03:12 Central Line Flush IV PUSH PRN PRN after blood draws Umeclidinium [place] 1 puff 06/03/24 08:00 06/14/24 12:38 Umeclidinium [place] 62.5 Mcg Ellipta INHALATION Not Given DAILYRT [facility] Radiology Results: ITS Impressions Renal Ultrasound 06/04/24 15:06 IMPRESSION: 1. Normal kidneys. No hydronephrosis. Abdomen Ultrasound 06/10/24 14:47 IMPRESSION: Fat infiltration. Enlarged left lobe of the liver. Slightly thickened wall of the gallbladder. Trace of ascites. Otherwise, normal Limited ultrasound of the abdomen. Abdomen X-Ray 06/16/24 13:54 IMPRESSION: 1. Nasogastric tube tip in the stomach. 2. Nonobstructive bowel gas pattern. 3. Diffuse lung disease, consistent with pulmonary edema versus pneumonia. 4. Cardiomegaly. Chest/Abdomen/Pelvis CT 06/17/24 10:03 IMPRESSION: 1. Diffuse lung disease, consistent with pulmonary edema versus pneumonia versus acute respiratory distress syndrome. 2. Cardiomegaly. 3. Small volume of ascites. Venous Doppler Study 06/17/24 11:49 IMPRESSION: 1. No deep venous thrombosis. Chest X-Ray 06/18/24 06:46 Impression: Extensive consolidation of the left lung with more mild patchy haziness in the right lung. Correlate for asymmetric pulmonary edema versus bilateral pneumonia. Support tubes and pacemaker device, as above. Labs Labs: Laboratory Tests 06/18/24 05:12 06/18/24 05:12 Calcium 9.6 Phosphorus 6.6 H Magnesium 2.7 H Total Bilirubin 1.3 AST 122 H ALT 69 H Alkaline Phosphatase 266 H Total Protein 7.0 Albumin 3.2 L
[2024-06-18] MEDS: EPOETIN ALFA-EPBX 10,000 UNITS/ML VIAL 10000 UNITS IV PUSH (17:41)
[2024-06-18 18:03] LABS: Glucose Point of Care 136 mg/dl (65-105)
[2024-06-18] MEDS: HEPARIN SODIUM 1,000 UNITS/ML VIAL 4000 UNITS IV PUSH (18:49)
[2024-06-19] VITALS (65 sets, daily range): BP systolic 69–117; BP diastolic 35–83; PULSE 61–81; RESP 14–26; TEMP 36.9–37.3; O2SAT 92–97
[2024-06-19 00:19] LABS: Glucose Point of Care 125 mg/dl (65-105)
[2024-06-19] MEDS: IPRATROPIUM 0.5 MG/ALBUTEROL SULFATE 2.5 MG AMPUL.NEB 3 ML INHALATION ×4 (02:25→19:43)
[2024-06-19 04:46] LABS: Basophils Absolute Auto 0.1 K/mm3 (0.0-0.1); Basophils Percent Auto 0.4 % (0.2-1.2); Eosinophils Absolute Auto 0.1 K/mm3 (0-0.3); Eosinophils Percent Auto 0.9 % (0-4.4); Hematocrit 32.5 % (37.0-47.0); Hemoglobin 9.9 g/dL (12.0-15.0); Immature Granulocyte Absolute 0.15 K/mm3 (0.00-0.031); Immature Granulocyte Percent A 1.2 % (0-0.5); Lymphocytes Absolute Auto 1.21 K/mm3 (0.9-3.2); Lymphocytes Percent Auto 9.5 % (18.3-44.2); Mean Corpuscular HGB Conc 30.5 g/dl (32-36); Mean Corpuscular Hemoglobin 26.8 pg (26-34); Mean Corpuscular Volume 87.8 fl (80-100); Mean Platelet Volume 9.7 fl (7.4-10.4); Monocytes Absolute Auto 1.2 K/mm3 (0.1-0.6); Monocytes Percent Auto 9.7 % (2.6-8.5); Neutrophils Percent Auto 78.3 % (45.5-73.1); Platelet Count Result 274 k/mm3 (150-375); White Blood Count 12.7 K/mm3 (4.5-10.0)
[2024-06-19 05:00] LABS: Alveolar/Arterial O2 Gradient 160.3 mmHg; Base Excess ABG 2.3 mEq/l (+/-2.0); Carboxyhemoglobin 0.5 % THb (0-2.0); Fractional Inspired Oxygen 40 %; HCO3 ABG 27.4 mEq/l (22.0-26.0); Methemoglobin ABG 0.3 %THb (0-1.5); Oxygen Content ABG 14.3 %vol (16.0-22.0); Oxygen Saturation ABG 94.8 % (95.0-100.0); Oxyhemoglobin 93.8 % THb (90.0-100.0); PCO2 ABG 44.8 mmHg (35.0-45.0); PO2 ABG 73.4 mmHg (80.0-100.0); PO2 FiO2 Ratio Arterial Blood 1.84 %; Reduced Hemoglobin 5.4 %THb (0-5.0); Total Hemoglobin 10.8 g/dL (12.0-18.0); pH ABG 7.405 (7.350-7.450)
[2024-06-19 05:01] LABS: Alanine Aminotransferase 75 U/L (6-35); Albumin Level 3.2 g/dL (3.5-5.1); Alkaline Phosphatase 298 U/L (38-126); Anion Gap 10 mmol/L (4-12); Aspartate Amino Transferase 162 U/L (14-36); Bilirubin,Total 1.3 mg/dL (0.2-1.3); Blood Urea Nitrogen 59 mg/dL (7-17); Calcium 9.4 mg/dL (8.4-10.2); Carbon Dioxide 28 mmol/L (22-30); Chloride 96 mmol/L (98-107); Estimated CRCL calculation 25 ml/min; Estimated Glomerular Filt Rate 13; Glucose 144 mg/dL (65-110); Magnesium 2.4 mg/dL (1.6-2.3); Phosphorus 4.6 mg/dL (2.5-4.5); Potassium 3.9 mmol/L (3.4-5.0); Sodium 134 mmol/L (137-145)
[2024-06-19 05:02] LABS: Arterial Blood Gas PEEP 8 cmH2O; Arterial Blood Gas Tidal Volume 400 ml; Arterial Blood Gas Vent Mode CMV; Arterial Blood Gas Ventilator rate 20 /MIN; Device VENTILATOR; Modified Allen's Test Pass; Site Drawn RIGHT RADIAL
[2024-06-19 05:52] LABS: Glucose Point of Care 148 mg/dl (65-105)
[2024-06-19] MEDS: CENTRAL LINE FLUSH 10 ML IV PUSH ×3 (05:53→20:56)
[2024-06-19] MEDS: MIDODRINE HCL 10 MG TABLET PO ×3 (05:53→20:55)
[2024-06-19] MEDS: FENTANYL 2,500MCG/NS250ML(*CRX 2,500 MCG/250 ML BAG IV CONT (07:53)
[2024-06-19] MEDS: PANTOPRAZOLE SODIUM IV 40 MG VIAL IV PUSH ×2 (09:15→20:55)
[2024-06-19] MEDS: MINERAL OIL/WHITE PETROLATUM OINTMENT 1 APPLIC EACH EYE ×2 (09:15→20:56)
[2024-06-19] MEDS: APIXABAN 5 MG TABLET PO (09:15)
[2024-06-19] MEDS: AMIODARONE HCL 200 MG TABLET PO ×2 (09:15→20:55)
--- NOTE | 2024-06-19 09:30 | P.PNNP_ITS ---
Progress Note: A&P Assessment and Plan (1) JOVI (acute kidney injury): Code(s): N17.9 - Acute kidney failure, unspecified Status: Acute Assessment and Plan: * normal creatinine ~ 1 month ago * admitted with a creatinine of 2.1mg/dl with ongoing worsening noted * due to multifactorial ATN: * hemodynamic instability/shock * sepsis * infection (UTI +/- pneumonia) -- although culture negative to date * hypoxia * SLE flare (?) * other? * evaluation to date noted: * renal ultrasound negative for obstruction * urine eosinophils negative * urine electrolytes pre-renal (in spite of evidence of volume overload) * CPK low * moderate proteinuria (~ 600mg) * UA with blood and protein (and negative urine culture) * complements normal (arguing against lupus flare) * has been dialysis dependent since 06/05 * s/p daily dialysis alternating with DUF (except Sundays) to facilitate euvolemia * HD tomorrow and continue Tue/Tue/Tuesday schedule * will arrange for tunneled HD catheter placement * follow repeat labs and UOP to assess for potential renal recovery (2) Acute respiratory failure: Code(s): J96.00 - Acute respiratory failure, unspecified whether with hypoxia or hypercapnia Status: Acute Assessment and Plan: * intubated on 06/05 for impending respiratory failure * failed BiPAP therapy * ABG with noted hypercapnea and hypoxia * secondary to pulmonary edema, diffuse bilateral infiltrates and ARDS * on bronchodilators * weaned off steroids * continue dialyis/dry ultrafiltration for fluid removal * noted plans for tracheostomy and G-tube placement (3) Septic shock: Code(s): A41.9 - Sepsis, unspecified organism; R65.21 - Severe sepsis with septic shock Status: Acute Assessment and Plan: * initially thought to be secondary to UTI and pneumonia * remains on low dose levophed therapy to maintain MAP * Echo results noted * continue midodrine * culture data noted: * blood/urine cultures from 06/02 negative * blood culture 06/06 with E. coli and Staph epidermidis * urine culture on 06/06 negative. * blood culture on 06/08 negative * off all antibiotics at this time (since 06/12) * wean levophed as tolerated * follow trend of hemodynamics (4) Pulmonary edema: Code(s): J81.1 - Chronic pulmonary edema Status: Acute Assessment and Plan: * contributing to #2 * secondary to JOVI/ARF but ARDS an issues as well * failed diuretic therapy * HD/DUF for fluid removal * almost 20L negative since admission (5) Afib: Code(s): I48.91 - Unspecified atrial fibrillation Status: Acute Assessment and Plan: * rate control stratgey * on amiodarone and Eliquis (6) Anemia: Code(s): D64.9 - Anemia, unspecified Status: Acute Assessment and Plan: * related to JOVI and acute/critical illness * KIRILL with HD * follow trend of H/H (7) Liver cirrhosis secondary to HOFFMANN: Code(s): K75.81 - Nonalcoholic steatohepatitis (HOFFMANN); K74.60 - Unspecified cirrhosis of liver Status: Acute Assessment and Plan: * known history * normal liver by recent imaging * noted elevations in AST/ALT that have been up and down * fluctuating LFTS thought to be more related to congestion/volume overload * continue to follow (8) Type 2 diabetes mellitus: Code(s): E11.9 - Type 2 diabetes mellitus without complications Status: Acute Assessment and Plan: * follow accu-cheks * glycemic control per burglar alarm superintendent/hospitalist Will continue to follow. Subjective Date/time seen: 06/19/24 09:30 Interval history: Follow-up for acute kidney injury/acute renal failure with dialysis dependence. Tolerated dialysis yesterday afternoon without any issues or problems with 4 liters fluid removal; remains intubated/sedated and on ventilator support; mentation seems stable - awake and following simple commands with nodding to yes/no questions; still not making much urine; still on low dose levophed gtt as well. Exam Narrative: General: large female intubated/sedated on mechanical ventilator Heart: normal S1 and S2; no rub Lungs: coarse breath sounds; decreased at bases Abdomen: obese but soft, nontender, nondistended, positive bowel sounds Extremities: no cyanosis or clubbing; 1 - 2+ edema Skin: warm and dry Objective Data Vital Signs Vital Signs: Vital Signs Temp Pulse Resp BP Pulse Ox O2 Del Method FiO2 06/19/24 09:15 70 06/19/24 08:25 77 21 H 06/19/24 08:25 77 96 Mechanical Ventilation 40 06/19/24 07:57 68 101/47 L 06/19/24 07:56 68 20 06/19/24 07:53 68 20 06/19/24 07:53 68 20 06/19/24 06:00 71 20 06/19/24 06:00 71 20 06/19/24 05:30 72 24 H 100/43 L 95 06/19/24 05:15 71 17 69/41 L 94 06/19/24 05:00 69 20 97/39 L 95 06/19/24 04:45 69 20 96/36 L 97 06/19/24 04:35 66 20 94/38 L 96 06/19/24 04:15 61 20 95/35 L 94 06/19/24 06:00 71 20 95/39 L 96 06/19/24 06:00 71 06/19/24 06:15 71 99/43 L 06/19/24 06:00 71 20 06/19/24 05:30 72 100/43 L 06/19/24 04:45 68 95 Mechanical Ventilation 40 06/19/24 04:34 66 94/38 L 06/19/24 04:00 66 06/19/24 04:00 Mechanical Ventilation 40 06/19/24 04:00 99.1 F 66 20 94/38 L 97 06/19/24 04:36 66 20 06/19/24 04:00 66 20 06/19/24 04:00 40 06/19/24 03:15 70 109/44 L 06/19/24 03:00 69 16 105/44 L 96 06/19/24 02:45 67 110/41 L 06/19/24 02:30 66 108/44 L 06/19/24 02:15 66 110/41 L 06/19/24 03:00 69 105/44 L 06/19/24 02:45 68 111/83 06/19/24 02:51 72 20 06/19/24 02:25 76 20 06/19/24 02:25 77 96 Mechanical Ventilation 40 06/19/24 02:34 66 108/44 L 06/19/24 02:19 66 110/41 L 06/19/24 02:19 66 20 06/19/24 02:00 66 20 06/19/24 02:00 66 06/19/24 02:02 111/45 L 06/19/24 01:30 61 20 100/36 L 96 06/19/24 01:30 61 100/36 L 06/19/24 00:00 69 06/19/24 01:15 66 20 111/45 L 95 06/18/24 23:45 71 20 109/43 L 96 06/18/24 23:30 70 20 115/47 L 96 06/19/24 01:00 62 14 97/35 L 96 06/19/24 01:20 66 111/45 L 06/19/24 01:00 62 97/35 L 06/19/24 00:00 72 20 06/19/24 00:00 72 20 06/19/24 00:00 72 111/47 L 06/18/24 23:45 71 109/43 L 06/18/24 23:30 70 115/47 L 06/19/24 00:00 40 06/19/24 00:00 95 Mechanical Ventilation 40 06/19/24 00:03 98.7 F 71 18 111/43 L 95 06/18/24 23:38 71 96 Mechanical Ventilation 40 06/18/24 23:15 72 104/39 L 06/18/24 23:15 67 20 104/39 L 96 06/18/24 23:00 72 17 109/42 L 95 06/18/24 23:00 72 109/42 L 06/18/24 22:46 71 115/44 L 06/18/24 22:07 71 109/41 L 06/18/24 22:00 66 22 H 06/18/24 22:00 66 22 H 06/18/24 22:00 66 22 H 109/41 L 95 06/18/24 22:00 66 06/18/24 21:31 69 112/43 L 06/18/24 21:05 68 20 06/18/24 20:00 72 06/18/24 21:05 73 123/48 L 06/18/24 20:51 72 93 Mechanical Ventilation 40 06/18/24 20:50 75 22 H 06/18/24 20:18 72 107/46 L 06/18/24 20:00 40 06/18/24 20:00 Mechanical Ventilation 40 06/18/24 20:10 71 106/41 L 06/18/24 20:00 71 26 H 06/18/24 20:00 71 26 H 06/18/24 20:07 71 06/18/24 20:05 98.3 F 72 21 H 106/41 L 94 06/18/24 19:48 76 77/65 L 06/18/24 19:47 76 31 H 06/18/24 18:45 98.5 F 70 22 H 106/52 L 95 06/18/24 18:15 73 110/54 L 06/18/24 18:04 70 105/48 L 06/18/24 18:04 70 20 06/18/24 18:04 70 20 06/18/24 18:00 60 20 105/48 L 95 06/18/24 18:00 70 06/18/24 16:00 69 06/18/24 17:15 70 96/42 L 06/18/24 17:00 68 104/47 L 06/18/24 16:39 71 95 Mechanical Ventilation 40 06/18/24 16:00 40 06/18/24 16:00 70 21 H 95 Mechanical Ventilation 40 06/18/24 16:00 97.7 F 70 21 H 103/48 L 95 06/18/24 15:59 69 100/43 L 06/18/24 15:59 69 20 06/18/24 15:58 68 20 06/18/24 14:00 60 20 102/48 L 93 06/18/24 15:45 68 99/46 L 06/18/24 15:15 69 97/41 L 06/18/24 14:45 66 108/51 L 06/18/24 18:38 70 100/45 L 06/18/24 18:30 73 110/53 L 06/18/24 18:00 69 105/48 L 06/18/24 17:45 68 113/56 L 06/18/24 17:30 70 103/51 L 06/18/24 16:45 68 107/48 L 06/18/24 16:30 69 99/45 L 06/18/24 16:15 70 103/48 L 06/18/24 16:00 69 100/43 L 06/18/24 15:30 68 101/45 L 06/18/24 15:00 68 103/47 L 06/18/24 14:37 66 114/55 L 06/18/24 14:37 40 06/18/24 14:15 98.8 F 66 20 120/53 L 96 06/18/24 14:00 67 06/18/24 14:04 60 102/48 L 06/18/24 14:04 65 20 06/18/24 14:04 65 20 06/18/24 13:46 60 108/46 L 06/18/24 13:30 60 116/48 L 06/18/24 13:15 60 106/46 L 06/18/24 13:29 60 20 06/18/24 13:12 62 20 06/18/24 13:12 62 94 Mechanical Ventilation 40 06/18/24 13:04 60 105/44 L 06/18/24 12:00 60 06/18/24 12:00 40 06/18/24 12:00 60 20 97 Mechanical Ventilation 40 06/18/24 12:48 60 95/50 L 06/18/24 12:32 60 94/44 L 06/18/24 12:15 60 95/46 L 06/18/24 12:00 97.9 F 60 23 H 95/46 L 96 06/18/24 11:59 60 93/45 L 06/18/24 11:58 60 20 06/18/24 11:58 60 20 Intake/Output Intake/Output: Intake & Output 06/16/24 06/17/24 06/18/24 06/19/24 23:59 23:59 23:59 23:59 Intake Total 822.4 1385.4 1332.4 687.1 Output Total 4181 100 4150 10 Balance -3358.6 1285.4 -2817.6 677.1 Meds/Results Medications: Active Medications Generic Name Dose Route Start Last Admin Trade Name Fernando PRN Reason Stop Dose Admin Acetaminophen 650 mg 06/07/24 21:53 06/07/24 22:30 Acetaminophen Elixir 325 Mg/10.15 Ml Udc PO 650 mg Q6H PRN Administration Mild Pain (1-3) or Fever Albuterol/Ipratropium 3 ml 06/05/24 11:15 06/19/24 08:20 Ipratropium 0.5 Mg/Albuterol Sulfate 2.5 Mg Ampul.Neb 3 Ml INHALATION 3 ml Q6HRT JOHN Administration Amiodarone HCl 200 mg 06/02/24 21:00 06/19/24 09:15 Amiodarone Hcl 200 Mg Tablet PO 200 mg Q12HR JOHN Administration Apixaban 5 mg 06/06/24 09:30 06/19/24 09:15 Apixaban 5 Mg Tablet PO 5 mg Q12HR JOHN Administration Dextrose 12.5 gm 06/05/24 11:46 Dextrose 50% 25 Gm/50 Ml Syringe IV PUSH PRN PRN Hypoglycemia Protocol Epoetin Shayan-epbx 10,000 units 06/18/24 09:00 06/18/24 17:41 Epoetin Shayan-Epbx 10,000 Units/Ml Vial IV PUSH 10,000 units MOWEFR@09 JOHN Administration Glucagon 1 mg 06/05/24 11:46 Glucagon For Inj 1 Mg Vial IM PRN PRN Hypoglycemia Protocol Glucose 15 gm 06/05/24 11:46 Glucose Oral Gel 15 Gm Of Glucse In 37.5 Gm Tube PO PRN PRN Hypoglycemia Protocol Norepinephrine Bitartrate 8 mg in 250 mls @ 7.5 mls/hr 06/05/24 00:35 06/19/24 11:13 Levophed 8 Mg/D5w 250 Ml IV CONT 4 mcg/min .Q24H JOHN 7.5 mls/hr Titration Protocol 4 MCG/MIN Fentanyl Citrate 2,500 mcg in 250 mls @ 5 mls/hr 06/05/24 08:35 06/19/24 07:53 Fentanyl 2,500 Mcg/Ns 250 Ml IV CONT 50 mcg/hr .Q50H JOHN 5 mls/hr Administration Protocol 50 MCG/HR Midazolam HCl 100 mg in 100 mls @ 2 mls/hr 06/05/24 08:35 06/19/24 09:00 Versed 100 Mg/Ns 100 Ml IV CONT 2 mg/hr .Q50H JOHN 2 mls/hr Titration Protocol 2 MG/HR Dextrose 1,000 mls @ 100 mls/hr 06/05/24 11:46 Dextrose 5% 1,000 Ml IVPB PRN PRN Hypoglycemia Protocol Albumin Human 50 mls @ 999 mls/hr 06/08/24 09:50 06/12/24 11:39 Albutein IVPB 07/08/24 09:49 Infused Q10M PRN Infusion HYPOTENSION Insulin Aspart 3 - 6 units 06/05/24 12:00 06/19/24 11:12 Insulin Aspart (*Bkc) 100 Units/Ml SUB-Q Not Given Q6HR JOHN Protocol Midodrine 10 mg 06/17/24 22:00 06/19/24 05:53 Midodrine Hcl 10 Mg Tablet PO 10 mg Q8H JOHN Administration Multi-Ingred Cream/Lotion/Oil/Oint 1 applic 06/05/24 09:00 06/19/24 09:15 Mineral Oil/White Petrolatum Ointment EACH EYE 1 applic Q12HR JOHN Administration Ondansetron HCl 4 mg 06/11/24 07:47 06/18/24 05:37 Ondansetron Inj 4 Mg/2 Ml Vial IV PUSH 4 mg Q6H PRN Administration Nausea And Vomiting Pantoprazole Sodium 40 mg 06/06/24 09:00 06/19/24 09:15 Pantoprazole Sodium Iv 40 Mg Vial IV PUSH 40 mg Q12HR JOHN Administration Fluticasone/Salmeterol 2 puff 06/03/24 08:00 06/14/24 12:38 Fluticasone/Salmeterol 115-21 Mcg Inhaler 1 Puff INHALATION Not Given Q12HRT JOHN Sodium Chloride 10 ml 06/05/24 06:00 06/19/24 05:53 Central Line Flush IV PUSH 10 ml Q8HR JOHN Administration Sodium Chloride 20 ml 06/05/24 03:12 Central Line Flush IV PUSH PRN PRN after blood draws Umeclidinium Kenly 1 puff 06/03/24 08:00 06/14/24 12:38 Umeclidinium Ken[place] 62.5 Mcg Ellipta INHALATION Not Given DAILYRT [facility] Radiology Results: ITS Impressions Renal Ultrasound 06/04/24 15:06 IMPRESSION: 1. Normal kidneys. No hydronephrosis. Abdomen Ultrasound 06/10/24 14:47 IMPRESSION: Fat infiltration. Enlarged left lobe of the liver. Slightly thickened wall of the gallbladder. Trace of ascites. Otherwise, normal Limited ultrasound of the abdomen. Abdomen X-Ray 06/16/24 13:54 IMPRESSION: 1. Nasogastric tube tip in the stomach. 2. Nonobstructive bowel gas pattern. 3. Diffuse lung disease, consistent with pulmonary edema versus pneumonia. 4. Cardiomegaly. Chest/Abdomen/Pelvis CT 06/17/24 10:03 IMPRESSION: 1. Diffuse lung disease, consistent with pulmonary edema versus pneumonia versus acute respiratory distress syndrome. 2. Cardiomegaly. 3. Small volume of ascites. Venous Doppler Study 06/17/24 11:49 IMPRESSION: 1. No deep venous thrombosis. Chest X-Ray 06/19/24 07:19 Impression: Extensive bilateral pulmonary edema pattern with probable small left pleural effusion and superimposed discoid right basilar atelectasis. Support tubes and pacemaker device, as above. Labs Labs: Laboratory Tests 06/19/24 04:32 06/19/24 04:32 Calcium 9.4 Phosphorus 4.6 H Magnesium 2.4 H Total Bilirubin 1.3 AST 162 H ALT 75 H Alkaline Phosphatase 298 H Total Protein 7.0 Albumin 3.2 L
--- NOTE | 2024-06-19 10:47 | WPDINTPN ---
Progress Note: A&P Assessment and Plan (1) Acute respiratory failure: Code(s): J96.00 - Acute respiratory failure, unspecified whether with hypoxia or hypercapnia Status: Acute Assessment and Plan: Chest x-ray bilateral diffuse pulmonary infiltrates/pulmonary edema. Patient was placed on BiPAP. ABG showed hypercapnic and hypoxemic respiratory failure. Etiology pulmonary edema, pneumonia, ARDS -06/05: patient intubated for impending respiratory failure. Intubation was slightly challenging secondary to body habitus, small mouth, large tongue, redundant tissue in the hypopharynx and anterior vocal cords requiring cricoid pressure and use of glide scope. CT chest 06/17 IMPRESSION: 1. Diffuse lung disease, consistent with pulmonary edema versus pneumonia versus acute respiratory distress syndrome. 2. Cardiomegaly. 3. Small volume of ascites. -currently on CMV mode of ventilation, currently on PEEP down to 8, 40% FiO2, -chest x-ray reviewed and shows improvement although still has diffuse bilateral infiltrates although there has been improvement -continue bronchodilators - fentanyl and Versed infusion for analgosedation, will maintain RASS of -2 -patient has significant volume overload and need additional fluid removed patient is being dialyzed again today. -will try PSV again after dialysis today Overall patient has been on a ventilator for more than 2 weeks now at this point patient has not shown any significant indication of weaning. I have spoken to patient's sister who is her POA and son by phone today and discussed options of tracheostomy and PEG tube placement in case patient is not weanable from mechanical ventilation. Will discuss among themselves and get back to me later today. (2) Septic shock: Code(s): A41.9 - Sepsis, unspecified organism; R65.21 - Severe sepsis with septic shock Status: Acute Assessment and Plan: Septic shock could be related to UTI, pneumonia -patient was hypotensive in the intermediate Unit and was transferred to the ICU which she received fluids, albumin -continue norepinephrine, will maintain MAP > 65 mmHg or SBP > 100 mmHg adequate end organ perfusion -off vasopressin since 06/06/2024 evening -off vancomycin -completed cefepime for a total of 7 days -fluconazole was discontinued given her renal dysfunction -off stress dose steroids -continue midodrine -06/17: CT chest abdomen and pelvis for ongoing leukocytosis and vasopressor requirement. Will also obtain right lower extremity venous Dopplers since patient has a right lower extremity is erythematous, slightly swollen. 06/05/2024: Echocardiogram Summary 1. Left ventricular chamber dimension is normal. 2. Left ventricular systolic function is normal, estimated at 65-70%. 3. The left ventricular diastolic function is grade I diastolic dysfunction. 4. Right ventricular chamber dimension is moderately enlarged. 5. Right ventricular systolic function is normal. 6. Left atrial chamber dimension is moderately enlarged. 7. Right atrial chamber dimension is moderately enlarged. 8. There is mild to moderate tricuspid valve regurgitation. (3) JOVI (acute kidney injury): Code(s): N17.9 - Acute kidney failure, unspecified Status: Acute Assessment and Plan: Patient with acute kidney injury, with increase creatinine to 4.60 (creatinine on admission on 06/02/2024 was 2.10 and her creatinine on 04/26/2024 was 0.90) -etiology for acute kidney injury could be multifactorial, hypotension, shock, sepsis, UTI/pneumonia, hypoxia,? SLE flare, CHF, -CK levels are within normal limits -urine eosinophils were negative -urine electrolytes showed prerenal picture, patient seems to be volume overloaded -status post given IV fluids and albumin, will hold fluids for now -discussed with tinning equipment tender at [facility], feels that the patient is unstable to be transferred at this time for CRRT, recommended conventional dialysis. -discussed with rn care transition at [facility], agrees to conventional dialysis at this time -06/05: dialysis catheter was placed in the right IJ and exchange for the central line -06/05: Initiated dialysis, with 3000 mL of fluid removal -06/06: Dialysis with 3000 mL in fluid removal -06/07: Dialysis with 3700 mL in fluid removal -06/08: Dialysis with 2900 mL in fluid removal -06/09: Dialysis with 3000 mL in fluid removal -06/10: No dialysis -06/12: Patient was dialyzed and 3.1 P L fluid was removed -06/13 getting dialyzed again today. 4 L removed - 06/14: 3000 mL removed - 06/15: 4000 mL fluid was removed - 06/16: 4000 mL in fluid removal with dialysis - 06/18: 4000 ml in fluid removal (4) Pulmonary edema: Code(s): J81.1 - Chronic pulmonary edema Status: Acute Assessment and Plan: Pulmonary edema likely related to acute kidney injury, ARDS, -did not respond to Bumex -continue fluid removal with dialysis (5) Type 2 diabetes mellitus: Code(s): E11.9 - Type 2 diabetes mellitus without complications Status: Acute Assessment and Plan: SSI and accucheks HbA1C is 5.7 this admission (6) Afib: Code(s): I48.91 - Unspecified atrial fibrillation Status: Acute Assessment and Plan: continue amiodarone and Eliquis - flecainide was stopped (7) SLE (systemic lupus erythematosus): Code(s): M32.9 - Systemic lupus erythematosus, unspecified Status: Acute Assessment and Plan: Off steroids (8) Liver cirrhosis secondary to HOFFMANN: Code(s): K75.81 - Nonalcoholic steatohepatitis (HOFFMANN); K74.60 - Unspecified cirrhosis of liver Status: Acute Assessment and Plan: Continues to have mild elevation in LFTs and bilirubin which is stable 06/10/2024: RUQ ultrasound: Fat infiltration. Enlarged left lobe of the liver. Slightly thickened wall of the gallbladder. Trace of ascites. Otherwise, normal Limited ultrasound of the abdomen. -06/10/2024: Hepatitis panel is negative -continue to monitor (9) GERD (gastroesophageal reflux disease): Code(s): K21.9 - Gastro-esophageal reflux disease without esophagitis Status: Acute Assessment and Plan: Continue Protonix (10) Morbid obesity with BMI of 50.0-59.9, adult: Code(s): E66.01 - Morbid (severe) obesity due to excess calories; Z68.43 - Body mass index [BMI] 50.0-59.9, adult Status: Acute Assessment and Plan: Once extubated she will need lifestyle changes Plan DVT prophylaxis: Eliquis Stress ulcer prophylaxis: Protonix Nutrition: Tube feeds at goal and tolerating Code Status: Full code Critical Care Time Spent: 32 minutes I have asked the care coordination to set up a meeting with the POA. Dr. Romero spoke to patient's sister who is her POA and son by phone. He updated them with patient's current status including respiratory failure failure to wean till now, CT scan results, continue need for dialysis for renal failure, prognosis, goals of care and options of trach and PEG. I answered all their questions Due to a high probability of clinically significant, life threatening deterioration, the patient required my highest level of preparedness to intervene emergently and I personally spent this critical care time directly and personally managing the patient. This critical care time included obtaining a history; examining the patient; pulse oximetry; ordering and review of studies; arranging urgent treatment with development of a management plan; evaluation of patient's response to treatment; frequent reassessment; and discussions with other providers. It was exclusive of separately billable procedures and treating other patients and teaching time. Please see Assessment and Plan section and the rest of the note for further information on patient assessment and treatment This dictation may have been done utilizing a voice recognition system. Attempts have been made to correct errors. However, there may be uncorrected grammatical, spelling, and recognitions errors present This dictation may have been done utilizing a voice recognition system. Attempts have been made to correct errors. However, there may be uncorrected grammatical, spelling, and recognitions errors present. Subjective Date/time seen: 06/19/24 10:47 Interval history: Reason for consult: Acute respiratory failure, septic shock, acute kidney injury, pulmonary edema 06/05: Intubated 06/19/2024: Patient seen and examined the ICU, remains intubated on CMV mode of ventilation peep of 8, 40% FiO2. Sedated with fentanyl and Versed infusion, patient is awake, follows simple commands in all extremities and nods to questions. Remains oliguric. Remains on Levophed at 2 mcg/min. At 4000 mL in fluid removal with dialysis yesterday Review of Systems Review of Systems: ROS unobtainable: Yes unobtainable due to endotracheal tube, unobtainable due to medical condition and unobtainable due to mental status Exam Narrative: General: Morbidly obese female currently intubated and sedated in no acute distress HEENT:? Pupils equal and reactive bilaterally, sclera is clear, ETT in place Neck:, short and thick neck, Respiratory:? Decreased and coarse breath sounds bilaterally, no wheezing, Cardiac:? S1-S2 is normal, regular rate and rhythm Abdomen:? Morbid obesity, soft, hypoactive bowel sounds tenderness in right upper quadrant Extremities:? Bilateral lower extremity pitting edema improving, wrinkling of skin on the feet are noted, palpable pedal pulses. Right calf is warm, erythematous, nontender Neuro:? Patient is intubated, sedated, opens her eyes, follows simple commands in all extremities and nods to questions Skin:? Erythema in the intertriginous region and under her pannus, skin is dry and warm Psych:? Unable to assess at this time Objective Data Vital Signs Vital Signs: Vital Signs - 24 hr 06/18/24 10:52 06/18/24 11:58 06/18/24 11:58 Temperature Pulse Rate 63 60 60 Respiratory Rate 20 20 Blood Pressure Pulse Oximetry 96 Oxygen Delivery Mechanical Ventilation Fraction of Inspired Oxygen 40 06/18/24 11:59 06/18/24 12:00 06/18/24 12:15 Temperature 97.9 F Pulse Rate 60 60 60 Respiratory Rate 23 H Blood Pressure 93/45 L 95/46 L 95/46 L Pulse Oximetry 96 Oxygen Delivery Fraction of Inspired Oxygen 06/18/24 12:32 06/18/24 12:48 06/18/24 12:00 Temperature Pulse Rate 60 60 60 Respiratory Rate 20 Blood Pressure 94/44 L 95/50 L Pulse Oximetry 97 Oxygen Delivery Mechanical Ventilation Fraction of Inspired Oxygen 40 06/18/24 12:00 06/18/24 12:00 06/18/24 13:04 Temperature Pulse Rate 60 60 Respiratory Rate Blood Pressure 105/44 L Pulse Oximetry Oxygen Delivery Fraction of Inspired Oxygen 40 06/18/24 13:12 06/18/24 13:12 06/18/24 13:29 Temperature Pulse Rate 62 62 60 Respiratory Rate 20 20 Blood Pressure Pulse Oximetry 94 Oxygen Delivery Mechanical Ventilation Fraction of Inspired Oxygen 40 06/18/24 13:15 06/18/24 13:30 06/18/24 13:46 Temperature Pulse Rate 60 60 60 Respiratory Rate Blood Pressure 106/46 L 116/48 L 108/46 L Pulse Oximetry Oxygen Delivery Fraction of Inspired Oxygen 06/18/24 14:04 06/18/24 14:04 06/18/24 14:04 Temperature Pulse Rate 65 65 60 Respiratory Rate 20 20 Blood Pressure 102/48 L Pulse Oximetry Oxygen Delivery Fraction of Inspired Oxygen 06/18/24 14:00 06/18/24 14:15 06/18/24 14:37 Temperature 98.8 F Pulse Rate 67 66 Respiratory Rate 20 Blood Pressure 120/53 L Pulse Oximetry 96 Oxygen Delivery Fraction of Inspired Oxygen 40 06/18/24 14:37 06/18/24 15:00 06/18/24 15:30 Temperature Pulse Rate 66 68 68 Respiratory Rate Blood Pressure 114/55 L 103/47 L 101/45 L Pulse Oximetry Oxygen Delivery Fraction of Inspired Oxygen 06/18/24 16:00 06/18/24 16:15 06/18/24 16:30 Temperature Pulse Rate 69 70 69 Respiratory Rate Blood Pressure 100/43 L 103/48 L 99/45 L Pulse Oximetry Oxygen Delivery Fraction of Inspired Oxygen 06/18/24 16:45 06/18/24 17:30 06/18/24 17:45 Temperature Pulse Rate 68 70 68 Respiratory Rate Blood Pressure 107/48 L 103/51 L 113/56 L Pulse Oximetry Oxygen Delivery Fraction of Inspired Oxygen 06/18/24 18:00 06/18/24 18:30 06/18/24 18:38 Temperature Pulse Rate 69 73 70 Respiratory Rate Blood Pressure 105/48 L 110/53 L 100/45 L Pulse Oximetry Oxygen Delivery Fraction of Inspired Oxygen 06/18/24 14:45 06/18/24 15:15 06/18/24 15:45 Temperature Pulse Rate 66 69 68 Respiratory Rate Blood Pressure 108/51 L 97/41 L 99/46 L Pulse Oximetry Oxygen Delivery Fraction of Inspired Oxygen 06/18/24 14:00 06/18/24 15:58 06/18/24 15:59 Temperature Pulse Rate 60 68 69 Respiratory Rate 20 20 20 Blood Pressure 102/48 L Pulse Oximetry 93 Oxygen Delivery Fraction of Inspired Oxygen 06/18/24 15:59 06/18/24 16:00 06/18/24 16:00 Temperature 97.7 F Pulse Rate 69 70 70 Respiratory Rate 21 H 21 H Blood Pressure 100/43 L 103/48 L Pulse Oximetry 95 95 Oxygen Delivery Mechanical Ventilation Fraction of Inspired Oxygen 40 06/18/24 16:00 06/18/24 16:39 06/18/24 17:00 Temperature Pulse Rate 71 68 Respiratory Rate Blood Pressure 104/47 L Pulse Oximetry 95 Oxygen Delivery Mechanical Ventilation Fraction of Inspired Oxygen 40 40 06/18/24 17:15 06/18/24 16:00 06/18/24 18:00 Temperature Pulse Rate 70 69 70 Respiratory Rate Blood Pressure 96/42 L Pulse Oximetry Oxygen Delivery Fraction of Inspired Oxygen 06/18/24 18:00 06/18/24 18:04 06/18/24 18:04 Temperature Pulse Rate 60 70 70 Respiratory Rate 20 20 20 Blood Pressure 105/48 L Pulse Oximetry 95 Oxygen Delivery Fraction of Inspired Oxygen 06/18/24 18:04 06/18/24 18:15 06/18/24 18:45 Temperature 98.5 F Pulse Rate 70 73 70 Respiratory Rate 22 H Blood Pressure 105/48 L 110/54 L 106/52 L Pulse Oximetry 95 Oxygen Delivery Fraction of Inspired Oxygen 06/18/24 19:47 06/18/24 19:48 06/18/24 20:05 Temperature 98.3 F Pulse Rate 76 76 72 Respiratory Rate 31 H 21 H Blood Pressure 77/65 L 106/41 L Pulse Oximetry 94 Oxygen Delivery Fraction of Inspired Oxygen 06/18/24 20:07 06/18/24 20:00 06/18/24 20:00 Temperature Pulse Rate 71 71 71 Respiratory Rate 26 H 26 H Blood Pressure Pulse Oximetry Oxygen Delivery Fraction of Inspired Oxygen 06/18/24 20:10 06/18/24 20:00 06/18/24 20:00 Temperature Pulse Rate 71 Respiratory Rate Blood Pressure 106/41 L Pulse Oximetry Oxygen Delivery Mechanical Ventilation Fraction of Inspired Oxygen 40 40 06/18/24 20:18 06/18/24 20:50 06/18/24 20:51 Temperature Pulse Rate 72 75 72 Respiratory Rate 22 H Blood Pressure 107/46 L Pulse Oximetry 93 Oxygen Delivery Mechanical Ventilation Fraction of Inspired Oxygen 40 06/18/24 21:05 06/18/24 20:00 06/18/24 21:05 Temperature Pulse Rate 73 72 68 Respiratory Rate 20 Blood Pressure 123/48 L Pulse Oximetry Oxygen Delivery Fraction of Inspired Oxygen 06/18/24 21:31 06/18/24 22:00 06/18/24 22:00 Temperature Pulse Rate 69 66 66 Respiratory Rate 22 H Blood Pressure 112/43 L 109/41 L Pulse Oximetry 95 Oxygen Delivery Fraction of Inspired Oxygen 06/18/24 22:00 06/18/24 22:00 06/18/24 22:07 Temperature Pulse Rate 66 66 71 Respiratory Rate 22 H 22 H Blood Pressure 109/41 L Pulse Oximetry Oxygen Delivery Fraction of Inspired Oxygen 06/18/24 22:46 06/18/24 23:00 06/18/24 23:00 Temperature Pulse Rate 71 72 72 Respiratory Rate 17 Blood Pressure 115/44 L 109/42 L 109/42 L Pulse Oximetry 95 Oxygen Delivery Fraction of Inspired Oxygen 06/18/24 23:15 06/18/24 23:15 06/18/24 23:38 Temperature Pulse Rate 67 72 71 Respiratory Rate 20 Blood Pressure 104/39 L 104/39 L Pulse Oximetry 96 96 Oxygen Delivery Mechanical Ventilation Fraction of Inspired Oxygen 40 06/19/24 00:03 06/19/24 00:00 06/19/24 00:00 Temperature 98.7 F Pulse Rate 71 Respiratory Rate 18 Blood Pressure 111/43 L Pulse Oximetry 95 95 Oxygen Delivery Mechanical Ventilation Fraction of Inspired Oxygen 40 40 06/18/24 23:30 06/18/24 23:45 06/19/24 00:00 Temperature Pulse Rate 70 71 72 Respiratory Rate Blood Pressure 115/47 L 109/43 L 111/47 L Pulse Oximetry Oxygen Delivery Fraction of Inspired Oxygen 06/19/24 00:00 06/19/24 00:00 06/19/24 01:00 Temperature Pulse Rate 72 72 62 Respiratory Rate 20 20 Blood Pressure 97/35 L Pulse Oximetry Oxygen Delivery Fraction of Inspired Oxygen 06/19/24 01:20 06/19/24 01:00 06/18/24 23:30 Temperature Pulse Rate 66 62 70 Respiratory Rate 14 20 Blood Pressure 111/45 L 97/35 L 115/47 L Pulse Oximetry 96 96 Oxygen Delivery Fraction of Inspired Oxygen 06/18/24 23:45 06/19/24 01:15 06/19/24 00:00 Temperature Pulse Rate 71 66 69 Respiratory Rate 20 20 Blood Pressure 109/43 L 111/45 L Pulse Oximetry 96 95 Oxygen Delivery Fraction of Inspired Oxygen 06/19/24 01:30 06/19/24 01:30 06/19/24 02:02 Temperature Pulse Rate 61 61 Respiratory Rate 20 Blood Pressure 100/36 L 100/36 L 111/45 L Pulse Oximetry 96 Oxygen Delivery Fraction of Inspired Oxygen 06/19/24 02:00 06/19/24 02:00 06/19/24 02:19 Temperature Pulse Rate 66 66 66 Respiratory Rate 20 20 Blood Pressure Pulse Oximetry Oxygen Delivery Fraction of Inspired Oxygen 06/19/24 02:19 06/19/24 02:34 06/19/24 02:25 Temperature Pulse Rate 66 66 77 Respiratory Rate Blood Pressure 110/41 L 108/44 L Pulse Oximetry 96 Oxygen Delivery Mechanical Ventilation Fraction of Inspired Oxygen 40 06/19/24 02:25 06/19/24 02:51 06/19/24 02:45 Temperature Pulse Rate 76 72 68 Respiratory Rate 20 20 Blood Pressure 111/83 Pulse Oximetry Oxygen Delivery Fraction of Inspired Oxygen 06/19/24 03:00 06/19/24 02:15 06/19/24 02:30 Temperature Pulse Rate 69 66 66 Respiratory Rate Blood Pressure 105/44 L 110/41 L 108/44 L Pulse Oximetry Oxygen Delivery Fraction of Inspired Oxygen 06/19/24 02:45 06/19/24 03:00 06/19/24 03:15 Temperature Pulse Rate 67 69 70 Respiratory Rate 16 Blood Pressure 110/41 L 105/44 L 109/44 L Pulse Oximetry 96 Oxygen Delivery Fraction of Inspired Oxygen 06/19/24 04:00 06/19/24 04:00 06/19/24 04:36 Temperature Pulse Rate 66 66 Respiratory Rate 20 20 Blood Pressure Pulse Oximetry Oxygen Delivery Fraction of Inspired Oxygen 40 06/19/24 04:00 06/19/24 04:00 06/19/24 04:00 Temperature 99.1 F Pulse Rate 66 66 Respiratory Rate 20 Blood Pressure 94/38 L Pulse Oximetry 97 Oxygen Delivery Mechanical Ventilation Fraction of Inspired Oxygen 40 06/19/24 04:34 06/19/24 04:45 06/19/24 05:30 Temperature Pulse Rate 66 68 72 Respiratory Rate Blood Pressure 94/38 L 100/43 L Pulse Oximetry 95 Oxygen Delivery Mechanical Ventilation Fraction of Inspired Oxygen 40 06/19/24 06:00 06/19/24 06:15 06/19/24 06:00 Temperature Pulse Rate 71 71 71 Respiratory Rate 20 Blood Pressure 99/43 L Pulse Oximetry Oxygen Delivery Fraction of Inspired Oxygen 06/19/24 06:00 06/19/24 04:15 06/19/24 04:35 Temperature Pulse Rate 71 61 66 Respiratory Rate 20 20 20 Blood Pressure 95/39 L 95/35 L 94/38 L Pulse Oximetry 96 94 96 Oxygen Delivery Fraction of Inspired Oxygen 06/19/24 04:45 06/19/24 05:00 06/19/24 05:15 Temperature Pulse Rate 69 69 71 Respiratory Rate 20 20 17 Blood Pressure 96/36 L 97/39 L 69/41 L Pulse Oximetry 97 95 94 Oxygen Delivery Fraction of Inspired Oxygen 06/19/24 05:30 06/19/24 06:00 06/19/24 06:00 Temperature Pulse Rate 72 71 71 Respiratory Rate 24 H 20 20 Blood Pressure 100/43 L Pulse Oximetry 95 Oxygen Delivery Fraction of Inspired Oxygen 06/19/24 07:53 06/19/24 07:53 06/19/24 07:56 Temperature Pulse Rate 68 68 68 Respiratory Rate 20 20 20 Blood Pressure Pulse Oximetry Oxygen Delivery Fraction of Inspired Oxygen 06/19/24 07:57 06/19/24 08:25 06/19/24 08:25 Temperature Pulse Rate 68 77 77 Respiratory Rate 21 H Blood Pressure 101/47 L Pulse Oximetry 96 Oxygen Delivery Mechanical Ventilation Fraction of Inspired Oxygen 40 06/19/24 09:15 06/19/24 09:00 Temperature Pulse Rate 70 70 Respiratory Rate 22 H Blood Pressure Pulse Oximetry Oxygen Delivery Fraction of Inspired Oxygen Intake/Output Intake/Output: Intake & Output 06/16/24 06/17/24 06/18/24 06/19/24 23:59 23:59 23:59 23:59 Intake Total 822.4 1385.4 1332.4 674.8 Output Total 4181 100 4150 10 Balance -3358.6 1285.4 -2817.6 664.8 Meds/Results Medications: Active Medications Generic Name Dose Route Start Last Admin Trade Name Freq PRN Reason Stop Dose Admin Acetaminophen 650 mg 06/07/24 21:53 06/07/24 22:30 Acetaminophen Elixir 325 Mg/10.15 Ml Udc PO 650 mg Q6H PRN Administration Mild Pain (1-3) or Fever Albuterol/Ipratropium 3 ml 06/05/24 11:15 06/19/24 08:20 Ipratropium 0.5 Mg/Albuterol Sulfate 2.5 Mg Ampul.Neb 3 Ml INHALATION 3 ml Q6HRT JOHN Administration Amiodarone HCl 200 mg 06/02/24 21:00 06/19/24 09:15 Amiodarone Hcl 200 Mg Tablet PO 200 mg Q12HR JOHN Administration Apixaban 5 mg 06/06/24 09:30 06/19/24 09:15 Apixaban 5 Mg Tablet PO 5 mg Q12HR JOHN Administration Dextrose 12.5 gm 06/05/24 11:46 Dextrose 50% 25 Gm/50 Ml Syringe IV PUSH PRN PRN Hypoglycemia Protocol Epoetin Shayan-epbx 10,000 units 06/18/24 09:00 06/18/24 17:41 Epoetin Shayan-Epbx 10,000 Units/Ml Vial IV PUSH 10,000 units MOWEFR@09 JOHN Administration Glucagon 1 mg 06/05/24 11:46 Glucagon For Inj 1 Mg Vial IM PRN PRN Hypoglycemia Protocol Glucose 15 gm 06/05/24 11:46 Glucose Oral Gel 15 Gm Of Glucse In 37.5 Gm Tube PO PRN PRN Hypoglycemia Protocol Norepinephrine Bitartrate 8 mg in 250 mls @ 3.75 mls/hr 06/05/24 00:35 06/19/24 07:57 Levophed 8 Mg/D5w 250 Ml IV CONT 2 mcg/min .Q24H JOHN 3.75 mls/hr Titration Protocol 2 MCG/MIN Fentanyl Citrate 2,500 mcg in 250 mls @ 5 mls/hr 06/05/24 08:35 06/19/24 07:53 Fentanyl 2,500 Mcg/Ns 250 Ml IV CONT 50 mcg/hr .Q50H JOHN 5 mls/hr Administration Protocol 50 MCG/HR Midazolam HCl 100 mg in 100 mls @ 2 mls/hr 06/05/24 08:35 06/19/24 09:00 Versed 100 Mg/Ns 100 Ml IV CONT 2 mg/hr .Q50H JOHN 2 mls/hr Titration Protocol 2 MG/HR Dextrose 1,000 mls @ 100 mls/hr 06/05/24 11:46 Dextrose 5% 1,000 Ml IVPB PRN PRN Hypoglycemia Protocol Albumin Human 50 mls @ 999 mls/hr 06/08/24 09:50 06/12/24 11:39 Albutein IVPB 07/08/24 09:49 Infused Q10M PRN Infusion HYPOTENSION Insulin Aspart 3 - 6 units 06/05/24 12:00 06/19/24 06:16 Insulin Aspart (*Bkc) 100 Units/Ml SUB-Q Not Given Q6HR JOHN Protocol Midodrine 10 mg 06/17/24 22:00 06/19/24 05:53 Midodrine Hcl 10 Mg Tablet PO 10 mg Q8H JOHN Administration Multi-Ingred Cream/Lotion/Oil/Oint 1 applic 06/05/24 09:00 06/19/24 09:15 Mineral Oil/White Petrolatum Ointment EACH EYE 1 applic Q12HR JOHN Administration Ondansetron HCl 4 mg 06/11/24 07:47 06/18/24 05:37 Ondansetron Inj 4 Mg/2 Ml Vial IV PUSH 4 mg Q6H PRN Administration Nausea And Vomiting Pantoprazole Sodium 40 mg 06/06/24 09:00 06/19/24 09:15 Pantoprazole Sodium Iv 40 Mg Vial IV PUSH 40 mg Q12HR JOHN Administration Fluticasone/Salmeterol 2 puff 06/03/24 08:00 06/14/24 12:38 Fluticasone/Salmeterol 115-21 Mcg Inhaler 1 Puff INHALATION Not Given Q12HRT JOHN Sodium Chloride 10 ml 06/05/24 06:00 06/19/24 05:53 Central Line Flush IV PUSH 10 ml Q8HR JOHN Administration Sodium Chloride 20 ml 06/05/24 03:12 Central Line Flush IV PUSH PRN PRN after blood draws Umeclidinium Hester 1 puff 06/03/24 08:00 06/14/24 12:38 Umeclidinium Hester 62.5 Mcg Ellipta INHALATION Not Given DAILYRT JOHN Radiology Results: ITS Impressions Renal Ultrasound 06/04/24 15:06 IMPRESSION: 1. Normal kidneys. No hydronephrosis. Abdomen Ultrasound 06/10/24 14:47 IMPRESSION: Fat infiltration. Enlarged left lobe of the liver. Slightly thickened wall of the gallbladder. Trace of ascites. Otherwise, normal Limited ultrasound of the abdomen. Abdomen X-Ray 06/16/24 13:54 IMPRESSION: 1. Nasogastric tube tip in the stomach. 2. Nonobstructive bowel gas pattern. 3. Diffuse lung disease, consistent with pulmonary edema versus pneumonia. 4. Cardiomegaly. Chest/Abdomen/Pelvis CT 06/17/24 10:03 IMPRESSION: 1. Diffuse lung disease, consistent with pulmonary edema versus pneumonia versus acute respiratory distress syndrome. 2. Cardiomegaly. 3. Small volume of ascites. Venous Doppler Study 06/17/24 11:49 IMPRESSION: 1. No deep venous thrombosis. Chest X-Ray 06/19/24 07:19 Impression: Extensive bilateral pulmonary edema pattern with probable small left pleural effusion and superimposed discoid right basilar atelectasis. Support tubes and pacemaker device, as above. Labs Labs: Laboratory Results - last 24 hr 06/17/24 06/18/24 06/18/24 16:48 11:28 17:59 WBC RBC Hgb Hct MCV MCH MCHC RDW Plt Count MPV Immature Gran % (Auto) Neut % (Auto) Lymph % (Auto) [place] % (Auto) Eos % (Auto) Baso % (Auto) Lymph # (Auto) [place] # (Auto) Eos # (Auto) Baso # (Auto) Abs Immat Gran (auto) Absolute Neuts (auto) Absolute Nucleated RBC Nucleated RBC % Puncture Site ABG pH ABG pCO2 ABG pO2 ABG PO2/FiO2 Ratio ABG HCO3 ABG O2 Saturation ABG O2 Content ABG Base Excess A-a Gradient Oxyhemoglobin Carboxyhemoglobin Methemoglobin Reduced Hemoglobin Total Hemoglobin O2 Delivery Device O2 Liters/Min Minute Volume Vent Rate Vent Mode FiO2 Tidal Volume PEEP Peak Inspir Pressure Pressure Support Sodium Potassium Chloride Carbon Dioxide Anion Gap BUN Creatinine Estim Creat Clear Calc Estimated GFR Glucose POC Capillary Glucose 129 H 136 H Calcium Phosphorus Magnesium Total Bilirubin AST ALT Alkaline Phosphatase Total Protein Albumin Anti-DNA Antibody <1 06/19/24 06/19/24 06/19/24 00:13 04:32 04:43 WBC 12.7 H RBC 3.70 L Hgb 9.9 L Hct 32.5 L MCV 87.8 MCH 26.8 MCHC 30.5 L RDW 20.0 H Plt Count 274 MPV 9.7 Immature Gran % (Auto) 1.2 H Neut % (Auto) 78.3 H Lymph % (Auto) 9.5 L [place] % (Auto) 9.7 H Eos % (Auto) 0.9 Baso % (Auto) 0.4 Lymph # (Auto) 1.21 [place] # (Auto) 1.2 H Eos # (Auto) 0.1 Baso # (Auto) 0.1 Abs Immat Gran (auto) 0.15 H Absolute Neuts (auto) 10.0 H Absolute Nucleated RBC 0.000 Nucleated RBC % 0.0 Puncture Site Right radial ABG pH 7.405 ABG pCO2 44.8 ABG pO2 73.4 L ABG PO2/FiO2 Ratio 1.84 ABG HCO3 27.4 H ABG O2 Saturation 94.8 L ABG O2 Content 14.3 L ABG Base Excess 2.3 A-a Gradient 160.3 Oxyhemoglobin 93.8 Carboxyhemoglobin 0.5 Methemoglobin 0.3 Reduced Hemoglobin 5.4 H Total Hemoglobin 10.8 L O2 Delivery Device Ventilator O2 Liters/Min Not Reportable Minute Volume Not Reportable Vent Rate 20 Vent Mode Cmv FiO2 40 Tidal Volume 400 PEEP 8 Peak Inspir Pressure Not Reportable Pressure Support Not Reportable Sodium 134 L Potassium 3.9 Chloride 96 L Carbon Dioxide 28 Anion Gap 10 BUN 59 H D Creatinine 3.60 H Estim Creat Clear Calc 25 Estimated GFR 13 L Glucose 144 H POC Capillary Glucose 125 H Calcium 9.4 Phosphorus 4.6 H Magnesium 2.4 H Total Bilirubin 1.3 AST 162 H ALT 75 H Alkaline Phosphatase 298 H Total Protein 7.0 Albumin 3.2 L Anti-DNA Antibody 06/19/24 05:50 WBC RBC Hgb Hct MCV MCH MCHC RDW Plt Count MPV Immature Gran % (Auto) Neut % (Auto) Lymph % (Auto) [place] % (Auto) Eos % (Auto) Baso % (Auto) Lymph # (Auto) [place] # (Auto) Eos # (Auto) Baso # (Auto) Abs Immat Gran (auto) Absolute Neuts (auto) Absolute Nucleated RBC Nucleated RBC % Puncture Site ABG pH ABG pCO2 ABG pO2 ABG PO2/FiO2 Ratio ABG HCO3 ABG O2 Saturation ABG O2 Content ABG Base Excess A-a Gradient Oxyhemoglobin Carboxyhemoglobin Methemoglobin Reduced Hemoglobin Total Hemoglobin O2 Delivery Device O2 Liters/Min Minute Volume Vent Rate Vent Mode FiO2 Tidal Volume PEEP Peak Inspir Pressure Pressure Support Sodium Potassium Chloride Carbon Dioxide Anion Gap BUN Creatinine Estim Creat Clear Calc Estimated GFR Glucose POC Capillary Glucose 148 H Calcium Phosphorus Magnesium Total Bilirubin AST ALT Alkaline Phosphatase Total Protein Albumin Anti-DNA Antibody Quality VTE Prophylaxis VTE prophylaxis: pharmacologic ordered
[2024-06-19 11:12] LABS: Glucose Point of Care 172 mg/dl (65-105)
--- NOTE | 2024-06-19 11:26 | PCNFU ---
Nutrition Follow-Up Complete: Suboptimal Energy Intake as related to mechanical ventilator as evidenced by NPO. Goal: Meet estimated nutritional needs Patient is meeting goal. Will continue current goal. Pt current nutrition is Nepro at 40 ml/hr. Last recorded weight is 153 kg, down from 156.5 kg 06/18 Bowel Motility: +BM reported 06/18 Labs Reviewed:Mg 2.4, BUN 59, Cr 3.6,Na 134, Alb 3.2,Hct 32.5,Hgb 9.9 Meds Noted:Fentanyl, Versed, Levophed, Protonix Skin: WNL Additional Notes: Patient remains on mechanical vent. Tube feedings are being tolerated of Nepro at 40 ml/hr which are providing 1584 kcal/72 gm protein/640 ml water. Flush 30 ml q 4 hours. Dialysis on 06/18. Discussions in rounds regarding tunneled catheter, PEG/Trach. Agree with diet orders at this time. Will monitor weight, labs, skin, meds, diet orders every Tuesday and Tuesday.
--- NOTE | 2024-06-19 12:53 | PM.CNGS ---
Assessment and Plan Assessment and plan (1) JOVI (acute kidney injury): Code(s): N17.9 - Acute kidney failure, unspecified Status: Acute Assessment and Plan: Patient presented with JOVI and has been receiving hemodialysis through a right IJ temporary hemodialysis catheter. Nephrology is now requesting placement of a tunneled hemodialysis catheter. She is currently on Eliquis and may be needing a tracheostomy and PEG placement later this week. We will continue to follow along to decide on timing of tunneled dialysis catheter placement. (2) Septic shock: Code(s): A41.9 - Sepsis, unspecified organism; R65.21 - Severe sepsis with septic shock Status: Acute (3) Acute respiratory failure: Code(s): J96.00 - Acute respiratory failure, unspecified whether with hypoxia or hypercapnia Status: Acute (4) Pulmonary edema: Code(s): J81.1 - Chronic pulmonary edema Status: Acute (5) Afib: Code(s): I48.91 - Unspecified atrial fibrillation Status: Acute (6) Anticoagulated by anticoagulation treatment: Code(s): Z79.01 - oysterman (current) use of anticoagulants Status: Acute Assessment and Plan: Will need to hold Eliquis preoperatively depending on when she is added to the surgery schedule. (7) SLE (systemic lupus erythematosus): Code(s): M32.9 - Systemic lupus erythematosus, unspecified Status: Acute (8) Liver cirrhosis secondary to HOFFMANN: Code(s): K75.81 - Nonalcoholic steatohepatitis (HOFFMANN); K74.60 - Unspecified cirrhosis of liver Status: Acute (9) Morbid obesity with BMI of 50.0-59.9, adult: Code(s): E66.01 - Morbid (severe) obesity due to excess calories; Z68.43 - Body mass index [BMI] 50.0-59.9, adult Status: Acute Plan I have discussed the patient's case and plan of care with Dr. Albert. History of Present Illness Consult details Consult date: 06/19/24 Reason for consult: other (Tunneled dialysis catheter placement) Requesting physician: Hector Kwok MD Narrative: This is a 54-year-old woman with PMH of AFib on anticoagulation, status post pacemaker placement complicated by perforation of the myocardium requiring open or surgery, chronic respiratory failure with hypoxia on 3-4 L of oxygen via nasal cannula, type 2 diabetes, liver cirrhosis secondary to HOFFMANN, and multiple other medical problems, who we have been asked to see in surgical consultation for placement of a tunneled dialysis catheter. She was admitted on 06/02/2024 for acute kidney injury, UTI, and pulmonary edema. The patient developed respiratory distress and was eventually transferred to the ICU and intubated for acute respiratory failure on 06/05/2024. Nephrology was following for her acute kidney injury and she eventually required hemodialysis. She had a right IJ temporary hemodialysis catheter placed in ICU. She has been receiving hemodialysis without any issues with the temporary catheter. She continues to require hemodialysis and Nephrology is consulting our service for tunneled hemodialysis catheter placement. She is currently on Eliquis for atrial fibrillation. Review of Systems Review of Systems: ROS unobtainable: Yes unobtainable due to endotracheal tube PMFSH Past Medical History Medical History Asthma Per patient report but PFTs within our system demonstrated restrictive lung disease not obstructive Atrial fibrillation Chronic respiratory failure with hypoxia and hypercapnia On 3 L nasal cannula home. Intolerant BiPAP. Depression Essential hypertension GERD (gastroesophageal reflux disease) Hyperparathyroidism Liver cirrhosis secondary to HOFFMANN Migraines Morbid obesity with body mass index (BMI) greater than or equal to 50 Obstructive sleep apnea Intolerant of BiPAP Restrictive lung disease Restrictive lung disease noted on PFTs within the old record system. No mention of obstructive disease on that pulmonary function testing SLE (systemic lupus erythematosus) Reportedly with mostly skinaffects Surgical History Surgical History History of appendectomy Status post cardiac pacemaker procedure Complicated by perforation of the myocardium requiring subsequent open heart surgery performed at [facility] Family History Family History Mother Hypertension Heart attack Social History Social History Smoking packs per day: 0.5 Smoking cigarettes per day: 10.0 Years smoked: 20 Smoking pack-years: 10.00 Smoking status: Former smoker Tobacco type: cigarettes Second hand tobacco smoke exposure: Yes ( smokes in home) Smoking end date: 08/22/07 Additional smoking assessment comments: 2 years since last smoked. Alcohol intake: never Substance use: never Substance use type: does not use Do You Feel Safe in your Home?: Yes Lack of Transportation: No Lack of Food: Never True Current Housing: I Have Housing Concerned About Future Housing: No Difficulty Paying Gas/Electric Bills: No Difficulty Paying for Meds: No Currently Unemployed: No Education: High School Diploma/GED Difficulty w/ Childcare or Family Care: No Spiritual care concerns: No Meds Home Medications and Allergies Home Medications Medication Instructions Recorded Confirmed Type amiodarone 200 mg tablet 200 mg PO BID 11/26/23 06/02/24 History apixaban 5 mg tablet (Eliquis) 5 mg PO BID 11/26/23 06/02/24 History dapagliflozin propanediol 5 mg 5 mg PO DAILY 11/26/23 06/02/24 History tablet (Farxiga) famotidine 20 mg tablet 20 mg PO BID 11/26/23 06/02/24 History flecainide 100 mg tablet 100 mg PO BID 11/26/23 06/02/24 History furosemide 40 mg tablet 40 mg PO BID 11/26/23 06/02/24 History gabapentin 100 mg capsule 200 mg PO TID 11/26/23 06/02/24 History magnesium oxide 400 mg (241.3 mg 400 mg PO BID 11/26/23 06/02/24 History magnesium) tablet metoprolol tartrate 25 mg tablet 25 mg PO BID 11/26/23 06/02/24 History potassium chloride 20 mEq 40 meq PO BID 11/26/23 06/02/24 History tablet,extended release(part/cryst) albuterol sulfate 90 mcg/actuation 2 puff inhalation Q4H PRN 06/02/24 06/02/24 History aerosol inhaler Shortness Of Breath ergocalciferol (vitamin D2) 1,250 50,000 unit PO WEEKLY 06/02/24 06/02/24 History mcg (50,000 unit) capsule fluticasone 250 mcg-salmeterol 50 1 inh inhalation BID 06/02/24 06/02/24 History mcg/dose blistr powdr for inhalation (Advair Diskus) tiotropium bromide 2.5 2 puff inhalation DAILY 06/02/24 06/02/24 History mcg/actuation mist for inhalation (Spiriva Respimat) Allergies Allergy/AdvReac Type Severity Reaction Status Date / Time oxycodone [From Percocet] Allergy Intermediate Hives Verified 06/02/24 11:46 Penicillins Allergy Intermediate Hives Verified 06/08/24 09:49 Vital Signs Vital Signs - 24 hr 06/18/24 13:04 06/18/24 13:12 06/18/24 13:12 Temperature Pulse Rate 60 62 62 Respiratory Rate 20 Blood Pressure 105/44 L Pulse Oximetry 94 Oxygen Delivery Mechanical Ventilation Fraction of Inspired Oxygen 40 06/18/24 13:29 06/18/24 13:15 06/18/24 13:30 Temperature Pulse Rate 60 60 60 Respiratory Rate 20 Blood Pressure 106/46 L 116/48 L Pulse Oximetry Oxygen Delivery Fraction of Inspired Oxygen 06/18/24 13:46 06/18/24 14:04 06/18/24 14:04 Temperature Pulse Rate 60 65 65 Respiratory Rate 20 20 Blood Pressure 108/46 L Pulse Oximetry Oxygen Delivery Fraction of Inspired Oxygen 06/18/24 14:04 06/18/24 14:00 06/18/24 14:15 Temperature 98.8 F Pulse Rate 60 67 66 Respiratory Rate 20 Blood Pressure 102/48 L 120/53 L Pulse Oximetry 96 Oxygen Delivery Fraction of Inspired Oxygen 06/18/24 14:37 06/18/24 14:37 06/18/24 15:00 Temperature Pulse Rate 66 68 Respiratory Rate Blood Pressure 114/55 L 103/47 L Pulse Oximetry Oxygen Delivery Fraction of Inspired Oxygen 40 06/18/24 15:30 06/18/24 16:00 06/18/24 16:15 Temperature Pulse Rate 68 69 70 Respiratory Rate Blood Pressure 101/45 L 100/43 L 103/48 L Pulse Oximetry Oxygen Delivery Fraction of Inspired Oxygen 06/18/24 16:30 06/18/24 16:45 06/18/24 17:30 Temperature Pulse Rate 69 68 70 Respiratory Rate Blood Pressure 99/45 L 107/48 L 103/51 L Pulse Oximetry Oxygen Delivery Fraction of Inspired Oxygen 06/18/24 17:45 06/18/24 18:00 06/18/24 18:30 Temperature Pulse Rate 68 69 73 Respiratory Rate Blood Pressure 113/56 L 105/48 L 110/53 L Pulse Oximetry Oxygen Delivery Fraction of Inspired Oxygen 06/18/24 18:38 06/18/24 14:45 06/18/24 15:15 Temperature Pulse Rate 70 66 69 Respiratory Rate Blood Pressure 100/45 L 108/51 L 97/41 L Pulse Oximetry Oxygen Delivery Fraction of Inspired Oxygen 06/18/24 15:45 06/18/24 14:00 06/18/24 15:58 Temperature Pulse Rate 68 60 68 Respiratory Rate 20 20 Blood Pressure 99/46 L 102/48 L Pulse Oximetry 93 Oxygen Delivery Fraction of Inspired Oxygen 06/18/24 15:59 06/18/24 15:59 06/18/24 16:00 Temperature 97.7 F Pulse Rate 69 69 70 Respiratory Rate 20 21 H Blood Pressure 100/43 L 103/48 L Pulse Oximetry 95 Oxygen Delivery Fraction of Inspired Oxygen 06/18/24 16:00 06/18/24 16:00 06/18/24 16:39 Temperature Pulse Rate 70 71 Respiratory Rate 21 H Blood Pressure Pulse Oximetry 95 95 Oxygen Delivery Mechanical Ventilation Mechanical Ventilation Fraction of Inspired Oxygen 40 40 40 06/18/24 17:00 06/18/24 17:15 06/18/24 16:00 Temperature Pulse Rate 68 70 69 Respiratory Rate Blood Pressure 104/47 L 96/42 L Pulse Oximetry Oxygen Delivery Fraction of Inspired Oxygen 06/18/24 18:00 06/18/24 18:00 06/18/24 18:04 Temperature Pulse Rate 70 60 70 Respiratory Rate 20 20 Blood Pressure 105/48 L Pulse Oximetry 95 Oxygen Delivery Fraction of Inspired Oxygen 06/18/24 18:04 06/18/24 18:04 06/18/24 18:15 Temperature Pulse Rate 70 70 73 Respiratory Rate 20 Blood Pressure 105/48 L 110/54 L Pulse Oximetry Oxygen Delivery Fraction of Inspired Oxygen 06/18/24 18:45 06/18/24 19:47 06/18/24 19:48 Temperature 98.5 F Pulse Rate 70 76 76 Respiratory Rate 22 H 31 H Blood Pressure 106/52 L 77/65 L Pulse Oximetry 95 Oxygen Delivery Fraction of Inspired Oxygen 06/18/24 20:05 06/18/24 20:07 06/18/24 20:00 Temperature 98.3 F Pulse Rate 72 71 71 Respiratory Rate 21 H 26 H Blood Pressure 106/41 L Pulse Oximetry 94 Oxygen Delivery Fraction of Inspired Oxygen 06/18/24 20:00 06/18/24 20:10 06/18/24 20:00 Temperature Pulse Rate 71 71 Respiratory Rate 26 H Blood Pressure 106/41 L Pulse Oximetry Oxygen Delivery Mechanical Ventilation Fraction of Inspired Oxygen 40 06/18/24 20:00 06/18/24 20:18 06/18/24 20:50 Temperature Pulse Rate 72 75 Respiratory Rate 22 H Blood Pressure 107/46 L Pulse Oximetry Oxygen Delivery Fraction of Inspired Oxygen 40 06/18/24 20:51 06/18/24 21:05 06/18/24 20:00 Temperature Pulse Rate 72 73 72 Respiratory Rate Blood Pressure 123/48 L Pulse Oximetry 93 Oxygen Delivery Mechanical Ventilation Fraction of Inspired Oxygen 40 06/18/24 21:05 06/18/24 21:31 06/18/24 22:00 Temperature Pulse Rate 68 69 66 Respiratory Rate 20 Blood Pressure 112/43 L Pulse Oximetry Oxygen Delivery Fraction of Inspired Oxygen 06/18/24 22:00 06/18/24 22:00 06/18/24 22:00 Temperature Pulse Rate 66 66 66 Respiratory Rate 22 H 22 H 22 H Blood Pressure 109/41 L Pulse Oximetry 95 Oxygen Delivery Fraction of Inspired Oxygen 06/18/24 22:07 06/18/24 22:46 06/18/24 23:00 Temperature Pulse Rate 71 71 72 Respiratory Rate Blood Pressure 109/41 L 115/44 L 109/42 L Pulse Oximetry Oxygen Delivery Fraction of Inspired Oxygen 06/18/24 23:00 06/18/24 23:15 06/18/24 23:15 Temperature Pulse Rate 72 67 72 Respiratory Rate 17 20 Blood Pressure 109/42 L 104/39 L 104/39 L Pulse Oximetry 95 96 Oxygen Delivery Fraction of Inspired Oxygen 06/18/24 23:38 06/19/24 00:03 06/19/24 00:00 Temperature 98.7 F Pulse Rate 71 71 Respiratory Rate 18 Blood Pressure 111/43 L Pulse Oximetry 96 95 95 Oxygen Delivery Mechanical Ventilation Mechanical Ventilation Fraction of Inspired Oxygen 40 40 06/19/24 00:00 06/18/24 23:30 06/18/24 23:45 Temperature Pulse Rate 70 71 Respiratory Rate Blood Pressure 115/47 L 109/43 L Pulse Oximetry Oxygen Delivery Fraction of Inspired Oxygen 40 06/19/24 00:00 06/19/24 00:00 06/19/24 00:00 Temperature Pulse Rate 72 72 72 Respiratory Rate 20 20 Blood Pressure 111/47 L Pulse Oximetry Oxygen Delivery Fraction of Inspired Oxygen 06/19/24 01:00 06/19/24 01:20 06/19/24 01:00 Temperature Pulse Rate 62 66 62 Respiratory Rate 14 Blood Pressure 97/35 L 111/45 L 97/35 L Pulse Oximetry 96 Oxygen Delivery Fraction of Inspired Oxygen 06/18/24 23:30 06/18/24 23:45 06/19/24 01:15 Temperature Pulse Rate 70 71 66 Respiratory Rate 20 20 20 Blood Pressure 115/47 L 109/43 L 111/45 L Pulse Oximetry 96 96 95 Oxygen Delivery Fraction of Inspired Oxygen 06/19/24 00:00 06/19/24 01:30 06/19/24 01:30 Temperature Pulse Rate 69 61 61 Respiratory Rate 20 Blood Pressure 100/36 L 100/36 L Pulse Oximetry 96 Oxygen Delivery Fraction of Inspired Oxygen 06/19/24 02:02 06/19/24 02:00 06/19/24 02:00 Temperature Pulse Rate 66 66 Respiratory Rate 20 Blood Pressure 111/45 L Pulse Oximetry Oxygen Delivery Fraction of Inspired Oxygen 06/19/24 02:19 06/19/24 02:19 06/19/24 02:34 Temperature Pulse Rate 66 66 66 Respiratory Rate 20 Blood Pressure 110/41 L 108/44 L Pulse Oximetry Oxygen Delivery Fraction of Inspired Oxygen 06/19/24 02:25 06/19/24 02:25 06/19/24 02:51 Temperature Pulse Rate 77 76 72 Respiratory Rate 20 20 Blood Pressure Pulse Oximetry 96 Oxygen Delivery Mechanical Ventilation Fraction of Inspired Oxygen 40 06/19/24 02:45 06/19/24 03:00 06/19/24 02:15 Temperature Pulse Rate 68 69 66 Respiratory Rate Blood Pressure 111/83 105/44 L 110/41 L Pulse Oximetry Oxygen Delivery Fraction of Inspired Oxygen 06/19/24 02:30 06/19/24 02:45 06/19/24 03:00 Temperature Pulse Rate 66 67 69 Respiratory Rate 16 Blood Pressure 108/44 L 110/41 L 105/44 L Pulse Oximetry 96 Oxygen Delivery Fraction of Inspired Oxygen 06/19/24 03:15 06/19/24 04:00 06/19/24 04:00 Temperature Pulse Rate 70 66 Respiratory Rate 20 Blood Pressure 109/44 L Pulse Oximetry Oxygen Delivery Fraction of Inspired Oxygen 40 06/19/24 04:36 06/19/24 04:00 06/19/24 04:00 Temperature 99.1 F Pulse Rate 66 66 Respiratory Rate 20 20 Blood Pressure 94/38 L Pulse Oximetry 97 Oxygen Delivery Mechanical Ventilation Fraction of Inspired Oxygen 40 06/19/24 04:00 06/19/24 04:34 06/19/24 04:45 Temperature Pulse Rate 66 66 68 Respiratory Rate Blood Pressure 94/38 L Pulse Oximetry 95 Oxygen Delivery Mechanical Ventilation Fraction of Inspired Oxygen 40 06/19/24 05:30 06/19/24 06:00 06/19/24 06:15 Temperature Pulse Rate 72 71 71 Respiratory Rate 20 Blood Pressure 100/43 L 99/43 L Pulse Oximetry Oxygen Delivery Fraction of Inspired Oxygen 06/19/24 06:00 06/19/24 06:00 06/19/24 04:15 Temperature Pulse Rate 71 71 61 Respiratory Rate 20 20 Blood Pressure 95/39 L 95/35 L Pulse Oximetry 96 94 Oxygen Delivery Fraction of Inspired Oxygen 06/19/24 04:35 06/19/24 04:45 06/19/24 05:00 Temperature Pulse Rate 66 69 69 Respiratory Rate 20 20 20 Blood Pressure 94/38 L 96/36 L 97/39 L Pulse Oximetry 96 97 95 Oxygen Delivery Fraction of Inspired Oxygen 06/19/24 05:15 06/19/24 05:30 06/19/24 06:00 Temperature Pulse Rate 71 72 71 Respiratory Rate 17 24 H 20 Blood Pressure 69/41 L 100/43 L Pulse Oximetry 94 95 Oxygen Delivery Fraction of Inspired Oxygen 06/19/24 06:00 06/19/24 07:53 06/19/24 07:53 Temperature Pulse Rate 71 68 68 Respiratory Rate 20 20 20 Blood Pressure Pulse Oximetry Oxygen Delivery Fraction of Inspired Oxygen 06/19/24 07:56 06/19/24 07:57 06/19/24 08:25 Temperature Pulse Rate 68 68 77 Respiratory Rate 20 Blood Pressure 101/47 L Pulse Oximetry 96 Oxygen Delivery Mechanical Ventilation Fraction of Inspired Oxygen 40 06/19/24 08:25 06/19/24 09:15 06/19/24 09:00 Temperature Pulse Rate 77 70 70 Respiratory Rate 21 H 22 H Blood Pressure Pulse Oximetry Oxygen Delivery Fraction of Inspired Oxygen 06/19/24 10:53 06/19/24 10:00 06/19/24 11:13 Temperature Pulse Rate 76 70 72 Respiratory Rate Blood Pressure 104/44 L 97/40 L Pulse Oximetry 96 Oxygen Delivery Mechanical Ventilation Fraction of Inspired Oxygen 40 06/19/24 10:00 06/19/24 10:00 06/19/24 12:00 Temperature Pulse Rate 70 70 69 Respiratory Rate 22 H 22 H 20 Blood Pressure Pulse Oximetry Oxygen Delivery Fraction of Inspired Oxygen 06/19/24 12:00 06/19/24 11:30 06/19/24 11:45 Temperature Pulse Rate 69 67 68 Respiratory Rate 22 H Blood Pressure 105/39 L 106/42 L Pulse Oximetry Oxygen Delivery Fraction of Inspired Oxygen 06/19/24 12:00 Temperature Pulse Rate 69 Respiratory Rate Blood Pressure 103/44 L Pulse Oximetry Oxygen Delivery Fraction of Inspired Oxygen Exam Const: General: comfortable and no acute distress Nutritional Appearance: obese Orientation/consciousness: Other orientation findings (Intubated but awake and nods appropriately to questions) HENMT: Head: normocephalic and atraumatic Eyes: General: appearance normal, both eyes and all related structures Pupils: Equal, round and reactive pupils present Neck: Neck: normal visual inspection Resp: Effort & Inspection: abnormal respiratory pattern (On mechanical ventilator) Auscultation: rhonchi and diminished lung sounds Cardio: Rate: regular rate Rhythm: regular rhythm GI: Inspection: non-distended and obesity GI Palp: Yes Soft to palpation, No Guarding due to palpation present (GI) and No Rebound tenderness present Auscultation: normal bowel sounds Urinary Catheter: Urinary Catheter: patent and draining Skin: General skin exam: normal color Neuro: General: moves all extremities and other (Limited, patient intubated) Gait exam (Neuro): Unable to assess gait Extrem: General: normal to inspection and no edema Results Labs 06/19/24 04:32 06/19/24 04:32 Labs: Abnormal lab results 06/18/24 06/19/24 06/19/24 Range/Units 17:59 00:13 04:32 WBC 12.7 H (4.5-10.0) K/mm3 RBC 3.70 L (4.2-5.4) M/mm3 Hgb 9.9 L (12.0-15.0) g/dL Hct 32.5 L (37.0-47.0) % MCHC 30.5 L (32-36) g/dl RDW 20.0 H (11.5-14.5) % Immature Gran % (Auto) 1.2 H (0-0.5) % Neut % (Auto) 78.3 H (45.5-73.1) % Lymph % (Auto) 9.5 L (18.3-44.2) % [place] % (Auto) 9.7 H (2.6-8.5) % [place] # (Auto) 1.2 H (0.1-0.6) K/mm3 Abs Immat Gran (auto) 0.15 H (0.00-0.031) K/mm3 Absolute Neuts (auto) 10.0 H (1.3-6.7) K/mm3 ABG pO2 (80.0-100.0) mmHg ABG HCO3 (22.0-26.0) mEq/l ABG O2 Saturation (95.0-100.0) % ABG O2 Content (16.0-22.0) %vol Reduced Hemoglobin (0-5.0) %THb Total Hemoglobin (12.0-18.0) g/dL Sodium 134 L (137-145) mmol/L Chloride 96 L (98-107) mmol/L BUN 59 H D (7-17) mg/dL Creatinine 3.60 H (0.7-1.0) mg/dL Estimated GFR 13 L (59 - ) Glucose 144 H (65-110) mg/dL POC Capillary Glucose 136 H 125 H (65-105) mg/dl Phosphorus 4.6 H (2.5-4.5) mg/dL Magnesium 2.4 H (1.6-2.3) mg/dL AST 162 H (14-36) U/L ALT 75 H (6-35) U/L Alkaline Phosphatase 298 H (38-126) U/L Albumin 3.2 L (3.5-5.1) g/dL 06/19/24 06/19/24 06/19/24 Range/Units 04:43 05:50 11:10 WBC (4.5-10.0) K/mm3 RBC (4.2-5.4) M/mm3 Hgb (12.0-15.0) g/dL Hct (37.0-47.0) % MCHC (32-36) g/dl RDW (11.5-14.5) % Immature Gran % (Auto) (0-0.5) % Neut % (Auto) (45.5-73.1) % Lymph % (Auto) (18.3-44.2) % [place] % (Auto) (2.6-8.5) % [place] # (Auto) (0.1-0.6) K/mm3 Abs Immat Gran (auto) (0.00-0.031) K/mm3 Absolute Neuts (auto) (1.3-6.7) K/mm3 ABG pO2 73.4 L (80.0-100.0) mmHg ABG HCO3 27.4 H (22.0-26.0) mEq/l ABG O2 Saturation 94.8 L (95.0-100.0) % ABG O2 Content 14.3 L (16.0-22.0) %vol Reduced Hemoglobin 5.4 H (0-5.0) %THb Total Hemoglobin 10.8 L (12.0-18.0) g/dL Sodium (137-145) mmol/L Chloride (98-107) mmol/L BUN (7-17) mg/dL Creatinine (0.7-1.0) mg/dL Estimated GFR (59 - ) Glucose (65-110) mg/dL POC Capillary Glucose 148 H 172 H (65-105) mg/dl Phosphorus (2.5-4.5) mg/dL Magnesium (1.6-2.3) mg/dL AST (14-36) U/L ALT (6-35) U/L Alkaline Phosphatase (38-126) U/L Albumin (3.5-5.1) g/dL Diabetes panel 06/19/24 Range/Units 04:32 Sodium 134 L (137-145) mmol/L Potassium 3.9 (3.4-5.0) mmol/L Chloride 96 L (98-107) mmol/L Carbon Dioxide 28 (22-30) mmol/L BUN 59 H D (7-17) mg/dL Creatinine 3.60 H (0.7-1.0) mg/dL Glucose 144 H (65-110) mg/dL Calcium 9.4 (8.4-10.2) mg/dL AST 162 H (14-36) U/L ALT 75 H (6-35) U/L Alkaline Phosphatase 298 H (38-126) U/L Total Protein 7.0 (6.3-8.2) g/dL Albumin 3.2 L (3.5-5.1) g/dL Calcium panel 06/19/24 Range/Units 04:32 Calcium 9.4 (8.4-10.2) mg/dL Phosphorus 4.6 H (2.5-4.5) mg/dL Albumin 3.2 L (3.5-5.1) g/dL Pituitary panel 06/19/24 Range/Units 04:32 Sodium 134 L (137-145) mmol/L Potassium 3.9 (3.4-5.0) mmol/L Chloride 96 L (98-107) mmol/L Carbon Dioxide 28 (22-30) mmol/L BUN 59 H D (7-17) mg/dL Creatinine 3.60 H (0.7-1.0) mg/dL Glucose 144 H (65-110) mg/dL Calcium 9.4 (8.4-10.2) mg/dL Adrenal panel 06/19/24 Range/Units 04:32 Sodium 134 L (137-145) mmol/L Potassium 3.9 (3.4-5.0) mmol/L Chloride 96 L (98-107) mmol/L Carbon Dioxide 28 (22-30) mmol/L BUN 59 H D (7-17) mg/dL Creatinine 3.60 H (0.7-1.0) mg/dL Glucose 144 H (65-110) mg/dL Calcium 9.4 (8.4-10.2) mg/dL Total Bilirubin 1.3 (0.2-1.3) mg/dL AST 162 H (14-36) U/L ALT 75 H (6-35) U/L Alkaline Phosphatase 298 H (38-126) U/L Total Protein 7.0 (6.3-8.2) g/dL Albumin 3.2 L (3.5-5.1) g/dL All other labs normal. Imaging Additional studies: ITS Impressions Chest X-Ray 06/02/24 11:37 IMPRESSION: 1. Mild pulmonary edema. 2. Cardiomegaly. Renal Ultrasound 06/04/24 15:06 IMPRESSION: 1. Normal kidneys. No hydronephrosis. Chest/Abdomen/Pelvis CT 06/04/24 19:12 IMPRESSION: 1. Diffuse lung disease, consistent with pulmonary edema versus pneumonia. 2. Moderate volume of ascites. Chest X-Ray 06/05/24 06:03 Impression: Patchy pulmonary consolidation throughout both lungs is worsened from prior exam. Correlate with severe pulmonary edema versus diffuse pneumonia. Right IJ line in place, tip likely in the right atrium. No pneumothorax. Abdomen X-Ray 06/05/24 09:37 IMPRESSION: 1. Lines and tubes all in expected positions. 2. Diffuse patchy bilateral lung disease which could represent pulmonary edema and/or pneumonia. 3. Cardiomegaly. Chest X-Ray 06/05/24 09:37 IMPRESSION: 1. Lines and tubes all in expected positions. 2. Diffuse patchy bilateral lung disease which could represent pulmonary edema and/or pneumonia. 3. Cardiomegaly. Chest X-Ray 06/05/24 14:04 IMPRESSION: Cardiomegaly with cardiac decompensation and pulmonary edema. Superimposed pneumonia is not excluded. ADDENDUM: 06/05/24 1539 ADDENDUM: The prior right internal jugular central venous catheter is been removed and been replaced with a large-bore right internal jugular central venous catheter with distal tip at the caudal superior vena cava. Chest X-Ray 06/06/24 05:52 Impression: Stable extensive bilateral pulmonary consolidation. Correlate for pulmonary edema, infection, or ARDS. Support tubes, as above. Chest X-Ray 06/07/24 06:14 Impression: Patchy airspace disease throughout both lungs is again present, worst at the left lung base. Correlate for pulmonary edema, infection, ARDS. Support tubes, as above. Venous Doppler Study 06/07/24 17:01 IMPRESSION: 1. No deep venous thrombosis. Chest X-Ray 06/08/24 07:20 Impression: Stable extensive bilateral pulmonary consolidation, worst at the left lung base. Correlate for pulmonary edema versus pneumonia. Stable support tubes and pacemaker device. Chest X-Ray 06/09/24 06:16 Impression: 1: Cardiomegaly with mild interstitial edema. No significant interval change allowing for technique. Chest X-Ray 06/10/24 06:22 Impression: Extensive bilateral pulmonary consolidation. Correlate for pulmonary edema, pneumonia, or ARDS. Small pleural effusions. Support tubes and pacemaker device, as above. Abdomen Ultrasound 06/10/24 14:47 IMPRESSION: Fat infiltration. Enlarged left lobe of the liver. Slightly thickened wall of the gallbladder. Trace of ascites. Otherwise, normal Limited ultrasound of the abdomen. Chest X-Ray 06/11/24 06:28 Impression: Extensive bibasilar pulmonary consolidation. Correlate for pulmonary edema/atelectasis, pneumonia, or ARDS. Support tubes, as above. Abdomen X-Ray 06/11/24 07:58 Impression: Limited exam. NG tube is in satisfactory position. Chest X-Ray 06/12/24 06:06 IMPRESSION: 1. Diffuse lung disease with improvement at right lung base, consistent with pulmonary edema versus pneumonia. 2. Cardiomegaly. Chest X-Ray 06/13/24 06:05 IMPRESSION: 1. Stable diffuse lung disease, consistent with pulmonary edema versus pneumonia. 2. Cardiomegaly. Chest X-Ray 06/14/24 06:03 IMPRESSION: 1. Stable diffuse lung disease, consistent with pulmonary edema versus pneumonia. 2. Cardiomegaly. Chest X-Ray 06/15/24 06:13 IMPRESSION: 1. Diffuse lung disease with improvement on the left, consistent with pulmonary edema versus pneumonia. 2. Cardiomegaly. Chest X-Ray 06/16/24 06:12 IMPRESSION: 1. Stable diffuse lung disease, consistent with pulmonary edema versus pneumonia. 2. Cardiomegaly. Abdomen X-Ray 06/16/24 13:54 IMPRESSION: 1. Nasogastric tube tip in the stomach. 2. Nonobstructive bowel gas pattern. 3. Diffuse lung disease, consistent with pulmonary edema versus pneumonia. 4. Cardiomegaly. Chest X-Ray 06/17/24 06:05 IMPRESSION: 1. Diffuse lung disease with interval improvement, consistent with pulmonary edema versus pneumonia. 2. Cardiomegaly. Chest/Abdomen/Pelvis CT 06/17/24 10:03 IMPRESSION: 1. Diffuse lung disease, consistent with pulmonary edema versus pneumonia versus acute respiratory distress syndrome. 2. Cardiomegaly. 3. Small volume of ascites. Venous Doppler Study 06/17/24 11:49 IMPRESSION: 1. No deep venous thrombosis. Chest X-Ray 06/18/24 06:46 Impression: Extensive consolidation of the left lung with more mild patchy haziness in the right lung. Correlate for asymmetric pulmonary edema versus bilateral pneumonia. Support tubes and pacemaker device, as above. Chest X-Ray 06/19/24 07:19 Impression: Extensive bilateral pulmonary edema pattern with probable small left pleural effusion and superimposed discoid right basilar atelectasis. Support tubes and pacemaker device, as above.
[2024-06-19] MEDS: NOREPINEPHRINE 8 MG/D5W 250 ML 8 MG/250 ML BAG 15 MG IV CONT (16:15)
[2024-06-19] MEDS: MIDAZOLAM 100MG/NS 100ML(*CRX) 100 MG/100 ML BAG IV CONT (17:44)
--- NOTE | 2024-06-19 18:18 | P.CONGI_ITS ---
Assessment and Plan Assessment and plan (1) Anticoagulated by anticoagulation treatment: Code(s): Z79.01 - continuous churn buttermaker (current) use of anticoagulants Status: Acute (2) Morbid obesity with BMI of 50.0-59.9, adult: Code(s): E66.01 - Morbid (severe) obesity due to excess calories; Z68.43 - Body mass index [BMI] 50.0-59.9, adult Status: Acute Assessment and Plan: The patient's morbid obesity with a BMI of 54, a CT scan showing massive hepatomegaly occupying practically the whole upper hemiabdomen, ascites, and her current anticoagulation status, makes PEG placement not only technically impossible but also contraindicated. Patient should continue receiving nutrition through her current orogastric tube. GI Consult Note Consult date/time: 06/19/24 18:18 HPI: Ariana Spring is a 54 year old female Who is currently in the ICU intubated with severe diffuse lung disease, considering pulmonary edema versus ARDS, cardiomegaly, ascites, and morbid obesity. She has been on a ventilator for m ore than 2 weeks and there is very minimal possibilities of extubation and feeding. She is currently being fed through an orogastric tube. a consult is requested for possible PEG placement. [facility] Past Medical History Medical History Asthma Per patient report but PFTs within our system demonstrated restrictive lung disease not obstructive Atrial fibrillation Chronic respiratory failure with hypoxia and hypercapnia On 3 L nasal cannula home. Intolerant BiPAP. Depression Essential hypertension GERD (gastroesophageal reflux disease) Hyperparathyroidism Liver cirrhosis secondary to [place] Migraines Morbid obesity with body mass index (BMI) greater than or equal to 50 Obstructive sleep apnea Intolerant of BiPAP Restrictive lung disease Restrictive lung disease noted on PFTs within the old record system. No mention of obstructive disease on that pulmonary function testing SLE (systemic lupus erythematosus) Reportedly with mostly skinaffects Surgical History Surgical History History of appendectomy Status post cardiac pacemaker procedure Complicated by perforation of the myocardium requiring subsequent open heart surgery performed at [facility] Family History Family History Mother Hypertension Heart attack Social History Social History Smoking packs per day: 0.5 Smoking cigarettes per day: 10.0 Years smoked: 20 Smoking pack-years: 10.00 Smoking status: Former smoker Tobacco type: cigarettes Second hand tobacco smoke exposure: Yes ( smokes in home) Smoking end date: 08/22/07 Additional smoking assessment comments: 2 years since last smoked. Alcohol intake: never Substance use: never Substance use type: does not use Do You Feel Safe in your Home?: Yes Lack of Transportation: No Lack of Food: Never True Current Housing: I Have Housing Concerned About Future Housing: No Difficulty Paying Gas/Electric Bills: No Difficulty Paying for Meds: No Currently Unemployed: No Education: High School Diploma/GED Difficulty w/ Childcare or Family Care: No Spiritual care concerns: No Meds Home Medications and Allergies Home Medications Medication Instructions Recorded Confirmed Type amiodarone 200 mg tablet 200 mg PO BID 11/26/23 06/02/24 History apixaban 5 mg tablet (Eliquis) 5 mg PO BID 11/26/23 06/02/24 History dapagliflozin propanediol 5 mg 5 mg PO DAILY 11/26/23 06/02/24 History tablet (Farxiga) famotidine 20 mg tablet 20 mg PO BID 11/26/23 06/02/24 History flecainide 100 mg tablet 100 mg PO BID 11/26/23 06/02/24 History furosemide 40 mg tablet 40 mg PO BID 11/26/23 06/02/24 History gabapentin 100 mg capsule 200 mg PO TID 11/26/23 06/02/24 History magnesium oxide 400 mg (241.3 mg 400 mg PO BID 11/26/23 06/02/24 History magnesium) tablet metoprolol tartrate 25 mg tablet 25 mg PO BID 11/26/23 06/02/24 History potassium chloride 20 mEq 40 meq PO BID 11/26/23 06/02/24 History tablet,extended release(part/cryst) albuterol sulfate 90 mcg/actuation 2 puff inhalation Q4H PRN 06/02/24 06/02/24 History aerosol inhaler Shortness Of Breath ergocalciferol (vitamin D2) 1,250 50,000 unit PO WEEKLY 06/02/24 06/02/24 History mcg (50,000 unit) capsule fluticasone 250 mcg-salmeterol 50 1 inh inhalation BID 06/02/24 06/02/24 History mcg/dose blistr powdr for inhalation (Advair Diskus) tiotropium bromide 2.5 2 puff inhalation DAILY 06/02/24 06/02/24 History mcg/actuation mist for inhalation (Spiriva Respimat) Allergies Allergy/AdvReac Type Severity Reaction Status Date / Time oxycodone [From Percocet] Allergy Intermediate Hives Verified 06/02/24 11:46 Penicillins Allergy Intermediate Hives Verified 06/08/24 09:49 Vital Signs Vital Signs - 24 hr 06/18/24 18:30 06/18/24 18:38 06/18/24 18:45 Temperature 98.5 F Pulse Rate 73 70 70 Respiratory Rate 22 H Blood Pressure 110/53 L 100/45 L 106/52 L Pulse Oximetry 95 Oxygen Delivery Fraction of Inspired Oxygen 06/18/24 19:47 06/18/24 19:48 06/18/24 20:05 Temperature 98.3 F Pulse Rate 76 76 72 Respiratory Rate 31 H 21 H Blood Pressure 77/65 L 106/41 L Pulse Oximetry 94 Oxygen Delivery Fraction of Inspired Oxygen 06/18/24 20:07 06/18/24 20:00 06/18/24 20:00 Temperature Pulse Rate 71 71 71 Respiratory Rate 26 H 26 H Blood Pressure Pulse Oximetry Oxygen Delivery Fraction of Inspired Oxygen 06/18/24 20:10 06/18/24 20:00 06/18/24 20:00 Temperature Pulse Rate 71 Respiratory Rate Blood Pressure 106/41 L Pulse Oximetry Oxygen Delivery Mechanical Ventilation Fraction of Inspired Oxygen 40 40 06/18/24 20:18 06/18/24 20:50 06/18/24 20:51 Temperature Pulse Rate 72 75 72 Respiratory Rate 22 H Blood Pressure 107/46 L Pulse Oximetry 93 Oxygen Delivery Mechanical Ventilation Fraction of Inspired Oxygen 40 06/18/24 21:05 06/18/24 20:00 06/18/24 21:05 Temperature Pulse Rate 73 72 68 Respiratory Rate 20 Blood Pressure 123/48 L Pulse Oximetry Oxygen Delivery Fraction of Inspired Oxygen 06/18/24 21:31 06/18/24 22:00 06/18/24 22:00 Temperature Pulse Rate 69 66 66 Respiratory Rate 22 H Blood Pressure 112/43 L 109/41 L Pulse Oximetry 95 Oxygen Delivery Fraction of Inspired Oxygen 06/18/24 22:00 06/18/24 22:00 06/18/24 22:07 Temperature Pulse Rate 66 66 71 Respiratory Rate 22 H 22 H Blood Pressure 109/41 L Pulse Oximetry Oxygen Delivery Fraction of Inspired Oxygen 06/18/24 22:46 06/18/24 23:00 06/18/24 23:00 Temperature Pulse Rate 71 72 72 Respiratory Rate 17 Blood Pressure 115/44 L 109/42 L 109/42 L Pulse Oximetry 95 Oxygen Delivery Fraction of Inspired Oxygen 06/18/24 23:15 06/18/24 23:15 06/18/24 23:38 Temperature Pulse Rate 67 72 71 Respiratory Rate 20 Blood Pressure 104/39 L 104/39 L Pulse Oximetry 96 96 Oxygen Delivery Mechanical Ventilation Fraction of Inspired Oxygen 40 06/19/24 00:03 06/19/24 00:00 06/19/24 00:00 Temperature 98.7 F Pulse Rate 71 Respiratory Rate 18 Blood Pressure 111/43 L Pulse Oximetry 95 95 Oxygen Delivery Mechanical Ventilation Fraction of Inspired Oxygen 40 40 06/18/24 23:30 06/18/24 23:45 06/19/24 00:00 Temperature Pulse Rate 70 71 72 Respiratory Rate Blood Pressure 115/47 L 109/43 L 111/47 L Pulse Oximetry Oxygen Delivery Fraction of Inspired Oxygen 06/19/24 00:00 06/19/24 00:00 06/19/24 01:00 Temperature Pulse Rate 72 72 62 Respiratory Rate 20 20 Blood Pressure 97/35 L Pulse Oximetry Oxygen Delivery Fraction of Inspired Oxygen 06/19/24 01:20 06/19/24 01:00 06/18/24 23:30 Temperature Pulse Rate 66 62 70 Respiratory Rate 14 20 Blood Pressure 111/45 L 97/35 L 115/47 L Pulse Oximetry 96 96 Oxygen Delivery Fraction of Inspired Oxygen 06/18/24 23:45 06/19/24 01:15 06/19/24 00:00 Temperature Pulse Rate 71 66 69 Respiratory Rate 20 20 Blood Pressure 109/43 L 111/45 L Pulse Oximetry 96 95 Oxygen Delivery Fraction of Inspired Oxygen 06/19/24 01:30 06/19/24 01:30 06/19/24 02:02 Temperature Pulse Rate 61 61 Respiratory Rate 20 Blood Pressure 100/36 L 100/36 L 111/45 L Pulse Oximetry 96 Oxygen Delivery Fraction of Inspired Oxygen 06/19/24 02:00 06/19/24 02:00 06/19/24 02:19 Temperature Pulse Rate 66 66 66 Respiratory Rate 20 20 Blood Pressure Pulse Oximetry Oxygen Delivery Fraction of Inspired Oxygen 06/19/24 02:19 06/19/24 02:34 06/19/24 02:25 Temperature Pulse Rate 66 66 77 Respiratory Rate Blood Pressure 110/41 L 108/44 L Pulse Oximetry 96 Oxygen Delivery Mechanical Ventilation Fraction of Inspired Oxygen 40 06/19/24 02:25 06/19/24 02:51 06/19/24 02:45 Temperature Pulse Rate 76 72 68 Respiratory Rate 20 20 Blood Pressure 111/83 Pulse Oximetry Oxygen Delivery Fraction of Inspired Oxygen 06/19/24 03:00 06/19/24 02:15 06/19/24 02:30 Temperature Pulse Rate 69 66 66 Respiratory Rate Blood Pressure 105/44 L 110/41 L 108/44 L Pulse Oximetry Oxygen Delivery Fraction of Inspired Oxygen 06/19/24 02:45 06/19/24 03:00 06/19/24 03:15 Temperature Pulse Rate 67 69 70 Respiratory Rate 16 Blood Pressure 110/41 L 105/44 L 109/44 L Pulse Oximetry 96 Oxygen Delivery Fraction of Inspired Oxygen 06/19/24 04:00 06/19/24 04:00 06/19/24 04:36 Temperature Pulse Rate 66 66 Respiratory Rate 20 20 Blood Pressure Pulse Oximetry Oxygen Delivery Fraction of Inspired Oxygen 40 06/19/24 04:00 06/19/24 04:00 06/19/24 04:00 Temperature 99.1 F Pulse Rate 66 66 Respiratory Rate 20 Blood Pressure 94/38 L Pulse Oximetry 97 Oxygen Delivery Mechanical Ventilation Fraction of Inspired Oxygen 40 06/19/24 04:34 06/19/24 04:45 06/19/24 05:30 Temperature Pulse Rate 66 68 72 Respiratory Rate Blood Pressure 94/38 L 100/43 L Pulse Oximetry 95 Oxygen Delivery Mechanical Ventilation Fraction of Inspired Oxygen 40 06/19/24 06:00 06/19/24 06:15 06/19/24 06:00 Temperature Pulse Rate 71 71 71 Respiratory Rate 20 Blood Pressure 99/43 L Pulse Oximetry Oxygen Delivery Fraction of Inspired Oxygen 06/19/24 06:00 06/19/24 04:15 06/19/24 04:35 Temperature Pulse Rate 71 61 66 Respiratory Rate 20 20 20 Blood Pressure 95/39 L 95/35 L 94/38 L Pulse Oximetry 96 94 96 Oxygen Delivery Fraction of Inspired Oxygen 06/19/24 04:45 06/19/24 05:00 06/19/24 05:15 Temperature Pulse Rate 69 69 71 Respiratory Rate 20 20 17 Blood Pressure 96/36 L 97/39 L 69/41 L Pulse Oximetry 97 95 94 Oxygen Delivery Fraction of Inspired Oxygen 06/19/24 05:30 06/19/24 06:00 06/19/24 06:00 Temperature Pulse Rate 72 71 71 Respiratory Rate 24 H 20 20 Blood Pressure 100/43 L Pulse Oximetry 95 Oxygen Delivery Fraction of Inspired Oxygen 06/19/24 07:53 06/19/24 07:53 06/19/24 07:56 Temperature Pulse Rate 68 68 68 Respiratory Rate 20 20 20 Blood Pressure Pulse Oximetry Oxygen Delivery Fraction of Inspired Oxygen 06/19/24 07:57 06/19/24 08:25 06/19/24 08:25 Temperature Pulse Rate 68 77 77 Respiratory Rate 21 H Blood Pressure 101/47 L Pulse Oximetry 96 Oxygen Delivery Mechanical Ventilation Fraction of Inspired Oxygen 40 06/19/24 09:15 06/19/24 09:00 06/19/24 10:53 Temperature Pulse Rate 70 70 76 Respiratory Rate 22 H Blood Pressure Pulse Oximetry 96 Oxygen Delivery Mechanical Ventilation Fraction of Inspired Oxygen 40 06/19/24 10:00 06/19/24 11:13 06/19/24 10:00 Temperature Pulse Rate 70 72 70 Respiratory Rate 22 H Blood Pressure 104/44 L 97/40 L Pulse Oximetry Oxygen Delivery Fraction of Inspired Oxygen 06/19/24 10:00 06/19/24 12:00 06/19/24 12:00 Temperature Pulse Rate 70 69 69 Respiratory Rate 22 H 20 22 H Blood Pressure Pulse Oximetry Oxygen Delivery Fraction of Inspired Oxygen 06/19/24 11:30 06/19/24 11:45 06/19/24 12:00 Temperature Pulse Rate 67 68 69 Respiratory Rate Blood Pressure 105/39 L 106/42 L 103/44 L Pulse Oximetry Oxygen Delivery Fraction of Inspired Oxygen 06/19/24 14:00 06/19/24 14:00 06/19/24 14:12 Temperature Pulse Rate 70 70 68 Respiratory Rate 20 21 H Blood Pressure Pulse Oximetry 96 Oxygen Delivery Mechanical Ventilation Fraction of Inspired Oxygen 40 06/19/24 14:00 06/19/24 14:15 06/19/24 14:30 Temperature Pulse Rate 70 69 69 Respiratory Rate Blood Pressure 96/39 L 96/39 L 99/42 L Pulse Oximetry Oxygen Delivery Fraction of Inspired Oxygen 06/19/24 14:45 06/19/24 15:00 06/19/24 15:15 Temperature Pulse Rate 68 69 66 Respiratory Rate Blood Pressure 94/38 L 99/40 L 99/37 L Pulse Oximetry Oxygen Delivery Fraction of Inspired Oxygen 06/19/24 15:30 06/19/24 15:45 06/19/24 14:00 Temperature Pulse Rate 66 66 70 Respiratory Rate 22 H Blood Pressure 96/36 L 104/41 L Pulse Oximetry Oxygen Delivery Fraction of Inspired Oxygen 06/19/24 14:00 06/19/24 16:00 06/19/24 16:00 Temperature Pulse Rate 70 67 67 Respiratory Rate 20 20 Blood Pressure 105/41 L Pulse Oximetry Oxygen Delivery Fraction of Inspired Oxygen 06/19/24 16:00 06/19/24 16:15 06/19/24 08:00 Temperature 98.5 F Pulse Rate 67 70 70 Respiratory Rate 20 20 Blood Pressure 110/46 L 104/49 L Pulse Oximetry 97 Oxygen Delivery Fraction of Inspired Oxygen 06/19/24 08:00 06/19/24 08:00 06/19/24 08:00 Temperature Pulse Rate 66 Respiratory Rate Blood Pressure Pulse Oximetry 97 Oxygen Delivery Mechanical Ventilation Fraction of Inspired Oxygen 40 40 06/19/24 09:00 06/19/24 10:00 06/19/24 11:15 Temperature Pulse Rate 81 70 70 Respiratory Rate 20 20 20 Blood Pressure 103/39 L 104/44 L 94/37 L Pulse Oximetry 95 95 96 Oxygen Delivery Fraction of Inspired Oxygen 06/19/24 12:00 06/19/24 13:00 06/19/24 14:00 Temperature 98.4 F Pulse Rate 69 70 70 Respiratory Rate 20 20 20 Blood Pressure 103/44 L 106/46 L 96/39 L Pulse Oximetry 96 96 95 Oxygen Delivery Fraction of Inspired Oxygen 06/19/24 15:00 06/19/24 16:00 06/19/24 10:00 Temperature 98.7 F Pulse Rate 69 67 70 Respiratory Rate 20 20 Blood Pressure 99/40 L 105/41 L Pulse Oximetry 96 95 Oxygen Delivery Fraction of Inspired Oxygen 06/19/24 12:00 06/19/24 14:00 06/19/24 16:00 Temperature Pulse Rate 70 70 69 Respiratory Rate Blood Pressure Pulse Oximetry Oxygen Delivery Fraction of Inspired Oxygen 06/19/24 17:17 06/19/24 12:00 06/19/24 16:00 Temperature Pulse Rate 74 Respiratory Rate Blood Pressure Pulse Oximetry 94 96 95 Oxygen Delivery Mechanical Ventilation Mechanical Ventilation Mechanical Ventilation Fraction of Inspired Oxygen 40 40 40 06/19/24 12:00 06/19/24 16:00 06/19/24 17:44 Temperature Pulse Rate 73 Respiratory Rate 23 H Blood Pressure Pulse Oximetry Oxygen Delivery Fraction of Inspired Oxygen 40 40 06/19/24 17:44 06/19/24 17:47 Temperature Pulse Rate 73 73 Respiratory Rate 23 H Blood Pressure 117/48 L Pulse Oximetry Oxygen Delivery Fraction of Inspired Oxygen Results Labs 06/19/24 04:32 06/19/24 04:32 Labs: Short CBC 06/19/24 Range/Units 04:32 WBC 12.7 H (4.5-10.0) K/mm3 Hgb 9.9 L (12.0-15.0) g/dL Hct 32.5 L (37.0-47.0) % Plt Count 274 (150-375) k/mm3 BMP 06/19/24 04:32 Sodium 134 L Potassium 3.9 Chloride 96 L Carbon Dioxide 28 BUN 59 H D Creatinine 3.60 H Glucose 144 H Calcium 9.4 Liver Function 06/19/24 Range/Units 04:32 Total Bilirubin 1.3 (0.2-1.3) mg/dL AST 162 H (14-36) U/L ALT 75 H (6-35) U/L Alkaline Phosphatase 298 H (38-126) U/L Albumin 3.2 L (3.5-5.1) g/dL
[2024-06-19 18:34] LABS: Glucose Point of Care 140 mg/dl (65-105)
--- NOTE | 2024-06-19 19:01 | P.PNIM_ITS ---
Progress Note: A&P Assessment and Plan (1) Acute respiratory failure: Code(s): J96.00 - Acute respiratory failure, unspecified whether with hypoxia or hypercapnia Status: Acute Assessment and Plan: Patient originally admitted for difficulty voiding. Patient developed HoTN and hypoxia on 06/04 that worsened overnight. ABG showing 7.33/58/66.5 on HFNC. Patient brought to the ICU in the early breastfeeding care specialist hours of 06/05. She had increasing O2 requirements. CXR showed bilateral diffuse pulmonary infiltrates/pulmonary edema. Respiratory failure related to pulmonary edema, pneumonia and/or ARDS Patient was placed on BiPAP but ultimately intubated on 06/05/24. Despite daily HD, CXR continues to show edema vs PNA. Remains on PEEP 8. CT Ch/A/P showing diffuse disease consider ARDS but unable to tell until she is euvolemic. CXR showing persistent pulm edema Continue bronchodilators Fentanyl and Versed for sedation Continue dialysis for fluid removal per nephrology. Wean vent as tolerated. Appreciate overlock collar setter input - discussed possibly bronch. PEG, Trach being discussed. PEG per endoscopy unlikely given her hepatomegaly. Might need surgical approach. (2) Septic shock: Code(s): A41.9 - Sepsis, unspecified organism; R65.21 - Severe sepsis with septic shock Status: Acute Assessment and Plan: Patient was HoTN in the IMU and transferred to the ICU. Septic shock possibly related to UTI, pneumonia, bacteremia. Rt IJ central line was placed and Levophed started. She received fluids, albumin and midodrine BCx and UCx 06/02 negative. BCx 06/06 grew EColi and Staph Epidermidis. EColi was pansensitive. UCx 06/06 negative. Sputum Cx 06/07 growing yeast. BCx 06/08 negative Patient was on vancomycin and cefepime which were continued. Fluconazole was discontinued given her renal dysfunction Stress dose steroids were started but are off now Cause of bacteremia probably urinary source given UA results despite UCx being negative. Completed a course and now off all abx since 06/12. Off WHITE SOURER since 06/06 but remains on Levophed. Had low grade fevers 06/17. LE venous doppler negative for DVT. CT Ch/A/P showing diffuse lung disease, consider PNA but otherwise no obvious source for fever. Fever probably related to atelectasis. No recurence Wean pressors as tolerated. Continue midodrine. (3) JOVI (acute kidney injury): Code(s): N17.9 - Acute kidney failure, unspecified Status: Acute Assessment and Plan: Baseline Cr normal in April. Cr 2.1 on admission and has worsened JOVI related to shock, sepsis, UTI/pneumonia, hypoxia, SLE flare and/or CHF. TCK levels are normal. Ueos negative. Urine lytes c/w prerenal picture but patient seems to be volume overloaded Treated with IV fluids and albumin but renal function worsening and HD recommended. Other Sports Coach Or Instructor consulted and dialysis catheter was placed 06/05 in the right IJ and exchanged for the central line HD daily with removal of anywhere from 2.9-4L per day since 06/05 (except 06/10 and 06/17) Cumulative fluid balance of -18.5L. Still appears to be fluid overloaded but much improved. Tunnelled HD catheter ordered. HD tomorrow and then continue Tue/Tue/Tuesday schedule (4) Pulmonary edema: Code(s): J81.1 - Chronic pulmonary edema Status: Acute Assessment and Plan: CT chest (06/04) showing diffuse lung disease c/w PNA vs pulmonary edema vs ARDS. COVID, RSV and influenza PCR negative Echo showing normal LV size and fxn (EF 65-70%), Grade I diastolic dysfxn, RV enlargement with normal fxn, moderate bi-atrial enlargement and mild-mod TR. Pulmonary edema likely related to diastolic CHF, PNA, JOVI, ARDS. She did not respond to Bumex CT Chest 06/17 showing: diffuse lung disease with pulm edema vs PNA vs ARDS Control fluid status with HD (5) Type 2 diabetes mellitus: Code(s): E11.9 - Type 2 diabetes mellitus without complications Status: Acute Assessment and Plan: A1c 5.7. The patient's blood glucose was reviewed on 06/19 Glucose remains reasonably well controlled. Continue AccuCheks covering with sliding scale. Hypoglycemia protocol available as needed. Continue to monitor (6) Afib: Code(s): I48.91 - Unspecified atrial fibrillation Status: Acute Assessment and Plan: HR well controlled and tele showing normal sinus. Flecainide stopped. Continue amiodarone and Eliquis (7) SLE (systemic lupus erythematosus): Code(s): M32.9 - Systemic lupus erythematosus, unspecified Status: Acute Assessment and Plan: Consider SLE flare causinig her JOVI but felt less likely. dsDNA negative and C3/C4 normal. ANCa and anti-GBM pending. Was started on stress dose steroids but now off Nephrology following. (8) Liver cirrhosis secondary to HOFFMANN: Code(s): K75.81 - Nonalcoholic steatohepatitis (HOFFMANN); K74.60 - Unspecified cirrhosis of liver Status: Acute Assessment and Plan: Patient has a hx of liver cirrhosis. CT abd without contrast shows normal liver but moderate volume of ascites and body wall edema consistent with her fluid ov erload. RUQ ultrasound 06/10 showing fat infiltration, enlarged left lobe of the liver and slightly thickened wall of the gallbladder. Trace ascites. The liver does cross the midline making GTube placement near impossible Mild elevation in AST/ALT with levels that have been up and down Hepatitis panel is negative [place] elevated LFTs related to congestion. Continue to monitor (9) Morbid obesity with BMI of 50.0-59.9, adult: Code(s): E66.01 - Morbid (severe) obesity due to excess calories; Z68.43 - Body mass index [BMI] 50.0-59.9, adult Status: Acute Assessment and Plan: Once extubated she will need lifestyle changes Plan DVT prophylaxis: Eliquis Code Status: Full code Subjective Date/time seen: 06/19/24 19:01 Interval history: 54yo female with AFib on anticoagulation, PM and DM here for difficulty voiding. Patient had worsening respiratory status and hypotension despite ongoing therapy and was transferred to the ICU in the early breastfeeding care specialist hours of 06/05. Central line was placed and started on pressor therapy. She was intubated later that morning. No issues overnight. Remains intubated. Review of Systems Review of Systems: ROS unobtainable: Yes unobtainable due to endotracheal tube Exam Narrative: AF 98.7 109/43 71 20 96% MV Gen - intubated and on sedation. HEENT - ETT and OGT secured. Neck - Rt IJ HD catheter with pigtail in place Chest - coarse lung sounds anteriorly. CV - RRR S1/S2. Tele showing no significant dysrhythmias Abd - soft, morbidly obese, persistent flank and abd wall edema. - Lai secured with scant amount of dark yellow urine in the bag Ext - bilateral LE pitting pedal edema with improvement overall Neuro - sedated but awakens easily and follows commands Skin - Warm and dry Objective Data Vital Signs Vital Signs: Vital Signs - 24 hr 06/18/24 19:47 06/18/24 19:48 06/18/24 20:05 Temperature 98.3 F Pulse Rate 76 76 72 Respiratory Rate 31 H 21 H Blood Pressure 77/65 L 106/41 L Pulse Oximetry 94 Oxygen Delivery Fraction of Inspired Oxygen 06/18/24 20:07 06/18/24 20:00 06/18/24 20:00 Temperature Pulse Rate 71 71 71 Respiratory Rate 26 H 26 H Blood Pressure Pulse Oximetry Oxygen Delivery Fraction of Inspired Oxygen 06/18/24 20:10 06/18/24 20:00 06/18/24 20:00 Temperature Pulse Rate 71 Respiratory Rate Blood Pressure 106/41 L Pulse Oximetry Oxygen Delivery Mechanical Ventilation Fraction of Inspired Oxygen 40 40 06/18/24 20:18 06/18/24 20:50 06/18/24 20:51 Temperature Pulse Rate 72 75 72 Respiratory Rate 22 H Blood Pressure 107/46 L Pulse Oximetry 93 Oxygen Delivery Mechanical Ventilation Fraction of Inspired Oxygen 40 06/18/24 21:05 06/18/24 20:00 06/18/24 21:05 Temperature Pulse Rate 73 72 68 Respiratory Rate 20 Blood Pressure 123/48 L Pulse Oximetry Oxygen Delivery Fraction of Inspired Oxygen 06/18/24 21:31 06/18/24 22:00 06/18/24 22:00 Temperature Pulse Rate 69 66 66 Respiratory Rate 22 H Blood Pressure 112/43 L 109/41 L Pulse Oximetry 95 Oxygen Delivery Fraction of Inspired Oxygen 06/18/24 22:00 06/18/24 22:00 06/18/24 22:07 Temperature Pulse Rate 66 66 71 Respiratory Rate 22 H 22 H Blood Pressure 109/41 L Pulse Oximetry Oxygen Delivery Fraction of Inspired Oxygen 06/18/24 22:46 06/18/24 23:00 06/18/24 23:00 Temperature Pulse Rate 71 72 72 Respiratory Rate 17 Blood Pressure 115/44 L 109/42 L 109/42 L Pulse Oximetry 95 Oxygen Delivery Fraction of Inspired Oxygen 06/18/24 23:15 06/18/24 23:15 06/18/24 23:38 Temperature Pulse Rate 67 72 71 Respiratory Rate 20 Blood Pressure 104/39 L 104/39 L Pulse Oximetry 96 96 Oxygen Delivery Mechanical Ventilation Fraction of Inspired Oxygen 40 06/19/24 00:03 06/19/24 00:00 06/19/24 00:00 Temperature 98.7 F Pulse Rate 71 Respiratory Rate 18 Blood Pressure 111/43 L Pulse Oximetry 95 95 Oxygen Delivery Mechanical Ventilation Fraction of Inspired Oxygen 40 40 06/18/24 23:30 06/18/24 23:45 06/19/24 00:00 Temperature Pulse Rate 70 71 72 Respiratory Rate Blood Pressure 115/47 L 109/43 L 111/47 L Pulse Oximetry Oxygen Delivery Fraction of Inspired Oxygen 06/19/24 00:00 06/19/24 00:00 06/19/24 01:00 Temperature Pulse Rate 72 72 62 Respiratory Rate 20 20 Blood Pressure 97/35 L Pulse Oximetry Oxygen Delivery Fraction of Inspired Oxygen 06/19/24 01:20 06/19/24 01:00 06/18/24 23:30 Temperature Pulse Rate 66 62 70 Respiratory Rate 14 20 Blood Pressure 111/45 L 97/35 L 115/47 L Pulse Oximetry 96 96 Oxygen Delivery Fraction of Inspired Oxygen 06/18/24 23:45 06/19/24 01:15 06/19/24 00:00 Temperature Pulse Rate 71 66 69 Respiratory Rate 20 20 Blood Pressure 109/43 L 111/45 L Pulse Oximetry 96 95 Oxygen Delivery Fraction of Inspired Oxygen 06/19/24 01:30 06/19/24 01:30 06/19/24 02:02 Temperature Pulse Rate 61 61 Respiratory Rate 20 Blood Pressure 100/36 L 100/36 L 111/45 L Pulse Oximetry 96 Oxygen Delivery Fraction of Inspired Oxygen 06/19/24 02:00 06/19/24 02:00 06/19/24 02:19 Temperature Pulse Rate 66 66 66 Respiratory Rate 20 20 Blood Pressure Pulse Oximetry Oxygen Delivery Fraction of Inspired Oxygen 06/19/24 02:19 06/19/24 02:34 06/19/24 02:25 Temperature Pulse Rate 66 66 77 Respiratory Rate Blood Pressure 110/41 L 108/44 L Pulse Oximetry 96 Oxygen Delivery Mechanical Ventilation Fraction of Inspired Oxygen 40 06/19/24 02:25 06/19/24 02:51 06/19/24 02:45 Temperature Pulse Rate 76 72 68 Respiratory Rate 20 20 Blood Pressure 111/83 Pulse Oximetry Oxygen Delivery Fraction of Inspired Oxygen 06/19/24 03:00 06/19/24 02:15 06/19/24 02:30 Temperature Pulse Rate 69 66 66 Respiratory Rate Blood Pressure 105/44 L 110/41 L 108/44 L Pulse Oximetry Oxygen Delivery Fraction of Inspired Oxygen 06/19/24 02:45 06/19/24 03:00 06/19/24 03:15 Temperature Pulse Rate 67 69 70 Respiratory Rate 16 Blood Pressure 110/41 L 105/44 L 109/44 L Pulse Oximetry 96 Oxygen Delivery Fraction of Inspired Oxygen 06/19/24 04:00 06/19/24 04:00 06/19/24 04:36 Temperature Pulse Rate 66 66 Respiratory Rate 20 20 Blood Pressure Pulse Oximetry Oxygen Delivery Fraction of Inspired Oxygen 40 06/19/24 04:00 06/19/24 04:00 06/19/24 04:00 Temperature 99.1 F Pulse Rate 66 66 Respiratory Rate 20 Blood Pressure 94/38 L Pulse Oximetry 97 Oxygen Delivery Mechanical Ventilation Fraction of Inspired Oxygen 40 06/19/24 04:34 06/19/24 04:45 06/19/24 05:30 Temperature Pulse Rate 66 68 72 Respiratory Rate Blood Pressure 94/38 L 100/43 L Pulse Oximetry 95 Oxygen Delivery Mechanical Ventilation Fraction of Inspired Oxygen 40 06/19/24 06:00 06/19/24 06:15 06/19/24 06:00 Temperature Pulse Rate 71 71 71 Respiratory Rate 20 Blood Pressure 99/43 L Pulse Oximetry Oxygen Delivery Fraction of Inspired Oxygen 06/19/24 06:00 06/19/24 04:15 06/19/24 04:35 Temperature Pulse Rate 71 61 66 Respiratory Rate 20 20 20 Blood Pressure 95/39 L 95/35 L 94/38 L Pulse Oximetry 96 94 96 Oxygen Delivery Fraction of Inspired Oxygen 06/19/24 04:45 06/19/24 05:00 06/19/24 05:15 Temperature Pulse Rate 69 69 71 Respiratory Rate 20 20 17 Blood Pressure 96/36 L 97/39 L 69/41 L Pulse Oximetry 97 95 94 Oxygen Delivery Fraction of Inspired Oxygen 06/19/24 05:30 06/19/24 06:00 06/19/24 06:00 Temperature Pulse Rate 72 71 71 Respiratory Rate 24 H 20 20 Blood Pressure 100/43 L Pulse Oximetry 95 Oxygen Delivery Fraction of Inspired Oxygen 06/19/24 07:53 06/19/24 07:53 06/19/24 07:56 Temperature Pulse Rate 68 68 68 Respiratory Rate 20 20 20 Blood Pressure Pulse Oximetry Oxygen Delivery Fraction of Inspired Oxygen 06/19/24 07:57 06/19/24 08:25 06/19/24 08:25 Temperature Pulse Rate 68 77 77 Respiratory Rate 21 H Blood Pressure 101/47 L Pulse Oximetry 96 Oxygen Delivery Mechanical Ventilation Fraction of Inspired Oxygen 40 06/19/24 09:15 06/19/24 09:00 06/19/24 10:53 Temperature Pulse Rate 70 70 76 Respiratory Rate 22 H Blood Pressure Pulse Oximetry 96 Oxygen Delivery Mechanical Ventilation Fraction of Inspired Oxygen 40 06/19/24 10:00 06/19/24 11:13 06/19/24 10:00 Temperature Pulse Rate 70 72 70 Respiratory Rate 22 H Blood Pressure 104/44 L 97/40 L Pulse Oximetry Oxygen Delivery Fraction of Inspired Oxygen 06/19/24 10:00 06/19/24 12:00 06/19/24 12:00 Temperature Pulse Rate 70 69 69 Respiratory Rate 22 H 20 22 H Blood Pressure Pulse Oximetry Oxygen Delivery Fraction of Inspired Oxygen 06/19/24 11:30 06/19/24 11:45 06/19/24 12:00 Temperature Pulse Rate 67 68 69 Respiratory Rate Blood Pressure 105/39 L 106/42 L 103/44 L Pulse Oximetry Oxygen Delivery Fraction of Inspired Oxygen 06/19/24 14:00 06/19/24 14:00 06/19/24 14:12 Temperature Pulse Rate 70 70 68 Respiratory Rate 20 21 H Blood Pressure Pulse Oximetry 96 Oxygen Delivery Mechanical Ventilation Fraction of Inspired Oxygen 40 06/19/24 14:00 06/19/24 14:15 06/19/24 14:30 Temperature Pulse Rate 70 69 69 Respiratory Rate Blood Pressure 96/39 L 96/39 L 99/42 L Pulse Oximetry Oxygen Delivery Fraction of Inspired Oxygen 06/19/24 14:45 06/19/24 15:00 06/19/24 15:15 Temperature Pulse Rate 68 69 66 Respiratory Rate Blood Pressure 94/38 L 99/40 L 99/37 L Pulse Oximetry Oxygen Delivery Fraction of Inspired Oxygen 06/19/24 15:30 06/19/24 15:45 06/19/24 14:00 Temperature Pulse Rate 66 66 70 Respiratory Rate 22 H Blood Pressure 96/36 L 104/41 L Pulse Oximetry Oxygen Delivery Fraction of Inspired Oxygen 06/19/24 14:00 06/19/24 16:00 06/19/24 16:00 Temperature Pulse Rate 70 67 67 Respiratory Rate 20 20 Blood Pressure 105/41 L Pulse Oximetry Oxygen Delivery Fraction of Inspired Oxygen 06/19/24 16:00 06/19/24 16:15 06/19/24 08:00 Temperature 98.5 F Pulse Rate 67 70 70 Respiratory Rate 20 20 Blood Pressure 110/46 L 104/49 L Pulse Oximetry 97 Oxygen Delivery Fraction of Inspired Oxygen 06/19/24 08:00 06/19/24 08:00 06/19/24 08:00 Temperature Pulse Rate 66 Respiratory Rate Blood Pressure Pulse Oximetry 97 Oxygen Delivery Mechanical Ventilation Fraction of Inspired Oxygen 40 40 06/19/24 09:00 06/19/24 10:00 06/19/24 11:15 Temperature Pulse Rate 81 70 70 Respiratory Rate 20 20 20 Blood Pressure 103/39 L 104/44 L 94/37 L Pulse Oximetry 95 95 96 Oxygen Delivery Fraction of Inspired Oxygen 06/19/24 12:00 06/19/24 13:00 06/19/24 14:00 Temperature 98.4 F Pulse Rate 69 70 70 Respiratory Rate 20 20 20 Blood Pressure 103/44 L 106/46 L 96/39 L Pulse Oximetry 96 96 95 Oxygen Delivery Fraction of Inspired Oxygen 06/19/24 15:00 06/19/24 16:00 06/19/24 10:00 Temperature 98.7 F Pulse Rate 69 67 70 Respiratory Rate 20 20 Blood Pressure 99/40 L 105/41 L Pulse Oximetry 96 95 Oxygen Delivery Fraction of Inspired Oxygen 06/19/24 12:00 06/19/24 14:00 06/19/24 16:00 Temperature Pulse Rate 70 70 69 Respiratory Rate Blood Pressure Pulse Oximetry Oxygen Delivery Fraction of Inspired Oxygen 06/19/24 17:17 06/19/24 12:00 06/19/24 16:00 Temperature Pulse Rate 74 Respiratory Rate Blood Pressure Pulse Oximetry 94 96 95 Oxygen Delivery Mechanical Ventilation Mechanical Ventilation Mechanical Ventilation Fraction of Inspired Oxygen 40 40 40 06/19/24 12:00 06/19/24 16:00 06/19/24 17:44 Temperature Pulse Rate 73 Respiratory Rate 23 H Blood Pressure Pulse Oximetry Oxygen Delivery Fraction of Inspired Oxygen 40 40 06/19/24 17:44 06/19/24 17:47 06/19/24 18:00 Temperature Pulse Rate 73 73 71 Respiratory Rate 23 H Blood Pressure 117/48 L Pulse Oximetry Oxygen Delivery Fraction of Inspired Oxygen 06/19/24 18:00 06/19/24 18:00 Temperature Pulse Rate 71 71 Respiratory Rate 20 20 Blood Pressure 109/43 L Pulse Oximetry 96 Oxygen Delivery Fraction of Inspired Oxygen Intake/Output Intake/Output: Intake & Output 06/16/24 06/17/24 06/18/24 06/19/24 23:59 23:59 23:59 23:59 Intake Total 822.4 1385.4 1332.4 1435.8 Output Total 4181 100 4150 50 Balance -3358.6 1285.4 -2817.6 1385.8 Meds/Results Medications: Active Medications Generic Name Dose Route Start Last Admin Trade Name Freq PRN Reason Stop Dose Admin Acetaminophen 650 mg 06/07/24 21:53 06/07/24 22:30 Acetaminophen Elixir 325 Mg/10.15 Ml Udc PO 650 mg Q6H PRN Administration Mild Pain (1-3) or Fever Albuterol/Ipratropium 3 ml 06/05/24 11:15 06/19/24 14:00 Ipratropium 0.5 Mg/Albuterol Sulfate 2.5 Mg Ampul.Neb 3 Ml INHALATION 3 ml Q6HRT JOHN Administration Amiodarone HCl 200 mg 06/02/24 21:00 06/19/24 09:15 Amiodarone Hcl 200 Mg Tablet PO 200 mg Q12HR JOHN Administration Dextrose 12.5 gm 06/05/24 11:46 Dextrose 50% 25 Gm/50 Ml Syringe IV PUSH PRN PRN Hypoglycemia Protocol Epoetin Shayan-epbx 10,000 units 06/18/24 09:00 06/18/24 17:41 Epoetin Shayan-Epbx 10,000 Units/Ml Vial IV PUSH 10,000 units MOWEFR@09 JOHN Administration Glucagon 1 mg 06/05/24 11:46 Glucagon For Inj 1 Mg Vial IM PRN PRN Hypoglycemia Protocol Glucose 15 gm 06/05/24 11:46 Glucose Oral Gel 15 Gm Of Glucse In 37.5 Gm Tube PO PRN PRN Hypoglycemia Protocol Norepinephrine Bitartrate 8 mg in 250 mls @ 13.125 mls/hr 06/05/24 00:35 06/19/24 17:47 Levophed 8 Mg/D5w 250 Ml IV CONT 7 mcg/min .Q19H3M JOHN 13.13 mls/hr Titration Protocol 7 MCG/MIN Fentanyl Citrate 2,500 mcg in 250 mls @ 5 mls/hr 06/05/24 08:35 06/19/24 18:00 Fentanyl 2,500 Mcg/Ns 250 Ml IV CONT 50 mcg/hr .Q50H JOHN 5 mls/hr Titration Protocol 50 MCG/HR Midazolam HCl 100 mg in 100 mls @ 2 mls/hr 06/05/24 08:35 06/19/24 17:44 Versed 100 Mg/Ns 100 Ml IV CONT 2 mg/hr .Q50H JOHN 2 mls/hr Administration Protocol 2 MG/HR Dextrose 1,000 mls @ 100 mls/hr 06/05/24 11:46 Dextrose 5% 1,000 Ml IVPB PRN PRN Hypoglycemia Protocol Albumin Human 50 mls @ 999 mls/hr 06/08/24 09:50 06/12/24 11:39 Albutein IVPB 07/08/24 09:49 Infused Q10M PRN Infusion HYPOTENSION Insulin Aspart 3 - 6 units 06/05/24 12:00 06/19/24 17:44 Insulin Aspart (*Bkc) 100 Units/Ml SUB-Q Not Given Q6HR JOHN Protocol Midodrine 10 mg 06/17/24 22:00 06/19/24 13:36 Midodrine Hcl 10 Mg Tablet PO 10 mg Q8H JOHN Administration Multi-Ingred Cream/Lotion/Oil/Oint 1 applic 06/05/24 09:00 06/19/24 09:15 Mineral Oil/White Petrolatum Ointment EACH EYE 1 applic Q12HR JOHN Administration Ondansetron HCl 4 mg 06/11/24 07:47 06/18/24 05:37 Ondansetron Inj 4 Mg/2 Ml Vial IV PUSH 4 mg Q6H PRN Administration Nausea And Vomiting Pantoprazole Sodium 40 mg 06/06/24 09:00 06/19/24 09:15 Pantoprazole Sodium Iv 40 Mg Vial IV PUSH 40 mg Q12HR JOHN Administration Fluticasone/Salmeterol 2 puff 06/03/24 08:00 06/14/24 12:38 Fluticasone/Salmeterol 115-21 Mcg Inhaler 1 Puff INHALATION Not Given Q12HRT JOHN Sodium Chloride 10 ml 06/05/24 06:00 06/19/24 13:38 Central Line Flush IV PUSH 10 ml Q8HR JOHN Administration Sodium Chloride 20 ml 06/05/24 03:12 Central Line Flush IV PUSH PRN PRN after blood draws Umeclidinium [place] 1 puff 06/03/24 08:00 06/14/24 12:38 Umeclidinium [place] 62.5 Mcg Ellipta INHALATION Not Given DAILYRT [facility] Radiology Results: ITS Impressions Renal Ultrasound 06/04/24 15:06 IMPRESSION: 1. Normal kidneys. No hydronephrosis. Abdomen Ultrasound 06/10/24 14:47 IMPRESSION: Fat infiltration. Enlarged left lobe of the liver. Slightly thickened wall of the gallbladder. Trace of ascites. Otherwise, normal Limited ultrasound of the abdomen. Abdomen X-Ray 06/16/24 13:54 IMPRESSION: 1. Nasogastric tube tip in the stomach. 2. Nonobstructive bowel gas pattern. 3. Diffuse lung disease, consistent with pulmonary edema versus pneumonia. 4. Cardiomegaly. Chest/Abdomen/Pelvis CT 06/17/24 10:03 IMPRESSION: 1. Diffuse lung disease, consistent with pulmonary edema versus pneumonia versus acute respiratory distress syndrome. 2. Cardiomegaly. 3. Small volume of ascites. Venous Doppler Study 06/17/24 11:49 IMPRESSION: 1. No deep venous thrombosis. Chest X-Ray 06/19/24 07:19 Impression: Extensive bilateral pulmonary edema pattern with probable small left pleural effusion and superimposed discoid right basilar atelectasis. Support tubes and pacemaker device, as above. Labs Labs: Laboratory Results - last 24 hr 06/17/24 06/19/24 06/19/24 16:48 00:13 04:32 WBC 12.7 H RBC 3.70 L Hgb 9.9 L Hct 32.5 L MCV 87.8 MCH 26.8 MCHC 30.5 L RDW 20.0 H Plt Count 274 MPV 9.7 Immature Gran % (Auto) 1.2 H Neut % (Auto) 78.3 H Lymph % (Auto) 9.5 L [place] % (Auto) 9.7 H Eos % (Auto) 0.9 Baso % (Auto) 0.4 Lymph # (Auto) 1.21 [place] # (Auto) 1.2 H Eos # (Auto) 0.1 Baso # (Auto) 0.1 Abs Immat Gran (auto) 0.15 H Absolute Neuts (auto) 10.0 H Absolute Nucleated RBC 0.000 Nucleated RBC % 0.0 Puncture Site ABG pH ABG pCO2 ABG pO2 ABG PO2/FiO2 Ratio ABG HCO3 ABG O2 Saturation ABG O2 Content ABG Base Excess A-a Gradient Oxyhemoglobin Carboxyhemoglobin Methemoglobin Reduced Hemoglobin Total Hemoglobin O2 Delivery Device O2 Liters/Min Minute Volume Vent Rate Vent Mode FiO2 Tidal Volume PEEP Peak Inspir Pressure Pressure Support Sodium 134 L Potassium 3.9 Chloride 96 L Carbon Dioxide 28 Anion Gap 10 BUN 59 H D Creatinine 3.60 H Estim Creat Clear Calc 25 Estimated GFR 13 L Glucose 144 H POC Capillary Glucose 125 H Calcium 9.4 Phosphorus 4.6 H Magnesium 2.4 H Total Bilirubin 1.3 AST 162 H ALT 75 H Alkaline Phosphatase 298 H Total Protein 7.0 Albumin 3.2 L Anti-DNA Antibody <1 06/19/24 06/19/24 06/19/24 04:43 05:50 11:10 WBC RBC Hgb Hct MCV MCH MCHC RDW Plt Count MPV Immature Gran % (Auto) Neut % (Auto) Lymph % (Auto) [place] % (Auto) Eos % (Auto) Baso % (Auto) Lymph # (Auto) [place] # (Auto) Eos # (Auto) Baso # (Auto) Abs Immat Gran (auto) Absolute Neuts (auto) Absolute Nucleated RBC Nucleated RBC % Puncture Site Right radial ABG pH 7.405 ABG pCO2 44.8 ABG pO2 73.4 L ABG PO2/FiO2 Ratio 1.84 ABG HCO3 27.4 H ABG O2 Saturation 94.8 L ABG O2 Content 14.3 L ABG Base Excess 2.3 A-a Gradient 160.3 Oxyhemoglobin 93.8 Carboxyhemoglobin 0.5 Methemoglobin 0.3 Reduced Hemoglobin 5.4 H Total Hemoglobin 10.8 L O2 Delivery Device Ventilator O2 Liters/Min Not Reportable Minute Volume Not Reportable Vent Rate 20 Vent Mode Cmv FiO2 40 Tidal Volume 400 PEEP 8 Peak Inspir Pressure Not Reportable Pressure Support Not Reportable Sodium Potassium Chloride Carbon Dioxide Anion Gap BUN Creatinine Estim Creat Clear Calc Estimated GFR Glucose POC Capillary Glucose 148 H 172 H Calcium Phosphorus Magnesium Total Bilirubin AST ALT Alkaline Phosphatase Total Protein Albumin Anti-DNA Antibody 06/19/24 17:44 WBC RBC Hgb Hct MCV MCH MCHC RDW Plt Count MPV Immature Gran % (Auto) Neut % (Auto) Lymph % (Auto) [place] % (Auto) Eos % (Auto) Baso % (Auto) Lymph # (Auto) [place] # (Auto) Eos # (Auto) Baso # (Auto) Abs Immat Gran (auto) Absolute Neuts (auto) Absolute Nucleated RBC Nucleated RBC % Puncture Site ABG pH ABG pCO2 ABG pO2 ABG PO2/FiO2 Ratio ABG HCO3 ABG O2 Saturation ABG O2 Content ABG Base Excess A-a Gradient Oxyhemoglobin Carboxyhemoglobin Methemoglobin Reduced Hemoglobin Total Hemoglobin O2 Delivery Device O2 Liters/Min Minute Volume Vent Rate Vent Mode FiO2 Tidal Volume PEEP Peak Inspir Pressure Pressure Support Sodium Potassium Chloride Carbon Dioxide Anion Gap BUN Creatinine Estim Creat Clear Calc Estimated GFR Glucose POC Capillary Glucose 140 H Calcium Phosphorus Magnesium Total Bilirubin AST ALT Alkaline Phosphatase Total Protein Albumin Anti-DNA Antibody
[2024-06-19 23:41] LABS: Glucose Point of Care 153 mg/dl (65-105)
[2024-06-20] VITALS (53 sets, daily range): BP systolic 98–117; BP diastolic 40–56; PULSE 62–80; RESP 20–28; TEMP 36.8–37.9; O2SAT 92–96
[2024-06-20] MEDS: IPRATROPIUM 0.5 MG/ALBUTEROL SULFATE 2.5 MG AMPUL.NEB 3 ML INHALATION ×4 (01:31→20:19)
[2024-06-20 05:10] LABS: Alveolar/Arterial O2 Gradient 153.1 mmHg; Carboxyhemoglobin 0.5 % THb (0-2.0); Fractional Inspired Oxygen 40 %; HCO3 ABG 27.5 mEq/l (22.0-26.0); Methemoglobin ABG 0.1 %THb (0-1.5); Oxygen Content ABG 14.8 %vol (16.0-22.0); Oxygen Saturation ABG 95.2 % (95.0-100.0); Oxyhemoglobin 94.4 % THb (90.0-100.0); PCO2 ABG 47.3 mmHg (35.0-45.0); PO2 ABG 77.7 mmHg (80.0-100.0); PO2 FiO2 Ratio Arterial Blood 1.94 %; Total Hemoglobin 11.1 g/dL (12.0-18.0); pH ABG 7.383 (7.350-7.450)
[2024-06-20 05:11] LABS: Device VENTILATOR; Modified Allen's Test Pass; Site Drawn RIGHT RADIAL
[2024-06-20 05:12] LABS: Arterial Blood Gas PEEP 8 cmH2O; Arterial Blood Gas Tidal Volume 400 ml; Arterial Blood Gas Vent Mode CMV; Arterial Blood Gas Ventilator rate 20 /MIN
[2024-06-20] MEDS: MIDODRINE HCL 10 MG TABLET PO ×3 (05:16→21:00)
[2024-06-20] MEDS: CENTRAL LINE FLUSH 10 ML IV PUSH ×3 (05:17→21:01)
[2024-06-20 05:55] LABS: Basophils Absolute Auto 0.1 K/mm3 (0.0-0.1); Basophils Percent Auto 0.6 % (0.2-1.2); Eosinophils Absolute Auto 0.2 K/mm3 (0-0.3); Eosinophils Percent Auto 1.3 % (0-4.4); Hematocrit 33.3 % (37.0-47.0); Hemoglobin 10.2 g/dL (12.0-15.0); Immature Granulocyte Absolute 0.22 K/mm3 (0.00-0.031); Immature Granulocyte Percent A 1.5 % (0-0.5); Lymphocytes Absolute Auto 1.71 K/mm3 (0.9-3.2); Lymphocytes Percent Auto 11.4 % (18.3-44.2); Mean Corpuscular HGB Conc 30.6 g/dl (32-36); Mean Corpuscular Hemoglobin 27.1 pg (26-34); Mean Corpuscular Volume 88.6 fl (80-100); Mean Platelet Volume 9.8 fl (7.4-10.4); Monocytes Absolute Auto 1.7 K/mm3 (0.1-0.6); Neutrophils Absolute Auto 11.1 K/mm3 (1.3-6.7); Neutrophils Percent Auto 74.2 % (45.5-73.1); Platelet Count Result 284 k/mm3 (150-375); Red Blood Count 3.76 M/mm3 (4.2-5.4); Red Cell Distribution Width 19.9 % (11.5-14.5)
[2024-06-20 06:10] LABS: Alanine Aminotransferase 69 U/L (6-35); Albumin Level 3.4 g/dL (3.5-5.1); Alkaline Phosphatase 311 U/L (38-126); Anion Gap 12 mmol/L (4-12); Aspartate Amino Transferase 144 U/L (14-36); Bilirubin,Total 1.3 mg/dL (0.2-1.3); Blood Urea Nitrogen 79 mg/dL (7-17); Calcium 9.8 mg/dL (8.4-10.2); Carbon Dioxide 26 mmol/L (22-30); Chloride 95 mmol/L (98-107); Glucose 150 mg/dL (65-110); Magnesium 2.5 mg/dL (1.6-2.3); Phosphorus 5.4 mg/dL (2.5-4.5); Potassium 4.2 mmol/L (3.4-5.0); Sodium 133 mmol/L (137-145)
[2024-06-20 06:12] LABS: Estimated CRCL calculation 19 ml/min; Estimated Glomerular Filt Rate 10
[2024-06-20] MEDS: NOREPINEPHRINE 8 MG/D5W 250 ML 8 MG/250 ML BAG 13.13 MG IV CONT (10:52)
[2024-06-20] MEDS: EPOETIN ALFA-EPBX 10,000 UNITS/ML VIAL 10000 UNITS IV PUSH (10:58)
--- NOTE | 2024-06-20 12:05 | PCFNICU ---
ICU Rounding Note: Pt current nutrition is Nepro at 40 ml/hr. Last recorded weight is 152.5 kg, down from 153 kg 06/20 Bowel Motility: +BM reported, 06/19 Labs Reviewed: Mg 2.5, Cr 4.7,BUN 79, Glu 150, Alb 3.4, Hct 33.3,Hgb 10.2 Meds Noted:Fentanyl, Versed, Levophed, Protonix. Skin: WNL Additional Notes: Patient remains on mechanical vent. Tube feedings are being tolerated of Nepro at 40 ml/hr. Flush 30 ml q 4 hours. Plans for G tube placement, tunnel catheter and Trach early next week. Dialysis today. Agree with diet orders at this time. Following daily in ICU rounds. Will monitor weight, labs, skin, meds, diet orders every Tuesday and Tuesday.
[2024-06-20] MEDS: HEPARIN SODIUM 1,000 UNITS/ML VIAL 4000 UNITS IV PUSH (12:24)
[2024-06-20 12:43] LABS: Glucose Point of Care 153 mg/dl (65-105)
[2024-06-20] MEDS: AMIODARONE HCL 200 MG TABLET PO ×2 (13:01→21:00)
[2024-06-20] MEDS: MINERAL OIL/WHITE PETROLATUM OINTMENT 1 APPLIC EACH EYE ×2 (13:02→21:00)
[2024-06-20] MEDS: PANTOPRAZOLE SODIUM IV 40 MG VIAL IV PUSH ×2 (13:02→21:00)
--- NOTE | 2024-06-20 13:09 | P.PNINT_ITS ---
Progress Note: A&P Assessment and Plan (1) Acute respiratory failure: Code(s): J96.00 - Acute respiratory failure, unspecified whether with hypoxia or hypercapnia Status: Acute Assessment and Plan: Chest x-ray bilateral diffuse pulmonary infiltrates/pulmonary edema. Patient was placed on BiPAP. ABG showed hypercapnic and hypoxemic respiratory failure. Etiology pulmonary edema, pneumonia, ARDS -06/05: patient intubated for impending respiratory failure. Intubation was slightly challenging secondary to body habitus, small mouth, large tongue, redundant tissue in the hypopharynx and anterior vocal cords requiring cricoid pressure and use of glide scope. CT chest 06/17 IMPRESSION: 1. Diffuse lung disease, consistent with pulmonary edema versus pneumonia versus acute respiratory distress syndrome. 2. Cardiomegaly. 3. Small volume of ascites. -currently on CMV mode of ventilation, currently on PEEP down to 8, 40% FiO2, -chest x-ray reviewed and shows improvement although still has diffuse bilateral infiltrates although there has been improvement -continue bronchodilators - fentanyl and Versed infusion for analgosedation, will maintain RASS of -2 -patient has significant volume overload and need additional fluid removed patient is being dialyzed again today. -will try PSV again after dialysis today Overall patient has been on a ventilator for more than 2 weeks now at this point patient has not shown any significant indication of weaning. I have spoken to patient's sister who is her POA and son by phone today and discussed options of tracheostomy and PEG tube placement in case patient is not weanable from mechanical ventilation. Will discuss among themselves and get back to me later today. 06/19: Discussed with patient's sister who is the POA and patient's son, they they requested and agreeable for tracheostomy and PEG tube placement -GI may not be able to place a PEG tube since her liver is enlarged, have asked surgery place a gastric tube if possible -trying to get ENT to place a tracheostomy (2) Septic shock: Code(s): A41.9 - Sepsis, unspecified organism; R65.21 - Severe sepsis with septic shock Status: Acute Assessment and Plan: Septic shock could be related to UTI, pneumonia -patient was hypotensive in the intermediate Unit and was transferred to the ICU which she received fluids, albumin -continue norepinephrine, will maintain MAP > 65 mmHg or SBP > 100 mmHg adequate end organ perfusion -off vasopressin since 06/06/2024 evening -off vancomycin -completed cefepime for a total of 7 days -fluconazole was discontinued given her renal dysfunction -off stress dose steroids -continue midodrine -06/17: CT chest abdomen and pelvis for ongoing leukocytosis and vasopressor requirement. Will also obtain right lower extremity venous Dopplers since patient has a right lower extremity is erythematous, slightly swollen. 06/05/2024: Echocardiogram Summary 1. Left ventricular chamber dimension is normal. 2. Left ventricular systolic function is normal, estimated at 65-70%. 3. The left ventricular diastolic function is grade I diastolic dysfunction. 4. Right ventricular chamber dimension is moderately enlarged. 5. Right ventricular systolic function is normal. 6. Left atrial chamber dimension is moderately enlarged. 7. Right atrial chamber dimension is moderately enlarged. 8. There is mild to moderate tricuspid valve regurgitation. (3) JOVI (acute kidney injury): Code(s): N17.9 - Acute kidney failure, unspecified Status: Acute Assessment and Plan: Patient with acute kidney injury, with increase creatinine to 4.60 (creatinine on admission on 06/02/2024 was 2.10 and her creatinine on 04/26/2024 was 0.90) -etiology for acute kidney injury could be multifactorial, hypotension, shock, sepsis, UTI/pneumonia, hypoxia,? SLE flare, CHF, -CK levels are within normal limits -urine eosinophils were negative -urine electrolytes showed prerenal picture, patient seems to be volume overloaded -status post given IV fluids and albumin, will hold fluids for now -discussed with human geography faculty member at [facility], feels that the patient is unstable to be transferred at this time for CRRT, recommended conventional dialysis. -discussed with brazer assembler at [facility], agrees to conventional dialysis at this time -06/05: dialysis catheter was placed in the right IJ and exchange for the central line -06/05: Initiated dialysis, with 3000 mL of fluid removal -06/06: Dialysis with 3000 mL in fluid removal -06/07: Dialysis with 3700 mL in fluid removal -06/08: Dialysis with 2900 mL in fluid removal -06/09: Dialysis with 3000 mL in fluid removal -06/10: No dialysis -06/12: Patient was dialyzed and 3.1 P L fluid was removed -06/13 getting dialyzed again today. 4 L removed - 06/14: 3000 mL removed - 06/15: 4000 mL fluid was removed - 06/16: 4000 mL in fluid removal with dialysis - 06/18: 4000 ml in fluid removal - 06/20: 4000 mL in fluid removal (4) Pulmonary edema: Code(s): J81.1 - Chronic pulmonary edema Status: Acute Assessment and Plan: Pulmonary edema likely related to acute kidney injury, ARDS, -did not respond to Bumex -continue fluid removal with dialysis (5) Type 2 diabetes mellitus: Code(s): E11.9 - Type 2 diabetes mellitus without complications Status: Acute Assessment and Plan: SSI and accucheks HbA1C is 5.7 this admission (6) Afib: Code(s): I48.91 - Unspecified atrial fibrillation Status: Acute Assessment and Plan: continue amiodarone and Eliquis - flecainide was stopped (7) SLE (systemic lupus erythematosus): Code(s): M32.9 - Systemic lupus erythematosus, unspecified Status: Acute Assessment and Plan: Off steroids (8) Liver cirrhosis secondary to HOFFMANN: Code(s): K75.81 - Nonalcoholic steatohepatitis (HOFFMANN); K74.60 - Unspecified cirrhosis of liver Status: Acute Assessment and Plan: Continues to have mild elevation in LFTs and bilirubin which is stable 06/10/2024: RUQ ultrasound: Fat infiltration. Enlarged left lobe of the liver. Slightly thickened wall of the gallbladder. Trace of ascites. Otherwise, normal Limited ultrasound of the abdomen. -06/10/2024: Hepatitis panel is negative -continue to monitor (9) GERD (gastroesophageal reflux disease): Code(s): K21.9 - Gastro-esophageal reflux disease without esophagitis Status: Acute Assessment and Plan: Continue Protonix (10) Morbid obesity with BMI of 50.0-59.9, adult: Code(s): E66.01 - Morbid (severe) obesity due to excess calories; Z68.43 - Body mass index [BMI] 50.0-59.9, adult Status: Acute Assessment and Plan: Once extubated she will need lifestyle changes Plan DVT prophylaxis: Eliquis Stress ulcer prophylaxis: Protonix Nutrition: Tube feeds at goal and tolerating Code Status: Full code Critical Care Time Spent: 32 minutes 06/19: Discussed with patient's sister who is the POA and patient's son, they they requested and agreeable for tracheostomy and PEG tube placement -GI may not be able to place a PEG tube since her liver is enlarged, have asked surgery place a gastric tube if possible -trying to get ENT to place a tracheostomy 06/18: Dr. Romero spoke to patient's sister who is her POA and son by phone. He updated them with patient's current status including respiratory failure failure to wean till now, CT scan results, continue need for dialysis for renal failure, prognosis, goals of care and options of trach and PEG. I answered all their questions Due to a high probability of clinically significant, life threatening deterioration, the patient required my highest level of preparedness to intervene emergently and I personally spent this critical care time directly and personally managing the patient. This critical care time included obtaining a history; examining the patient; pulse oximetry; ordering and review of studies; arranging urgent treatment with development of a management plan; evaluation of patient's response to treatment; frequent reassessment; and discussions with other providers. It was exclusive of separately billable procedures and treating other patients and teaching time. Please see Assessment and Plan section and the rest of the note for further information on patient assessment and treatment This dictation may have been done utilizing a voice recognition system. Attempts have been made to correct errors. However, there may be uncorrected grammatical, spelling, and recognitions errors present This dictation may have been done utilizing a voice recognition system. Attempts have been made to correct errors. However, there may be uncorrected grammatical, spelling, and recognitions errors present. Subjective Date/time seen: 06/20/24 13:09 Interval history: Reason for consult: Acute respiratory failure, septic shock, acute kidney injury, pulmonary edema 06/05: Intubated 06/20/2024: Patient seen and examined the ICU, remains intubated on CMV mode of ventilation peep of 8, 40% FiO2. Sedated with fentanyl and Versed infusion, patient is awake, follows simple commands in all extremities and nods to questions. Remains oliguric. Remains on Levophed at 2 mcg/min. At 4000 mL in fluid removal with dialysis yesterday Review of Systems Review of Systems: ROS unobtainable: Yes unobtainable due to endotracheal tube, unobtainable due to medical condition and unobtainable due to mental status Exam Narrative: General: Morbidly obese female currently intubated and sedated in no acute distress HEENT:? Pupils equal and reactive bilaterally, sclera is clear, ETT in place Neck:, short and thick neck, Respiratory:? Decreased and coarse breath sounds bilaterally, no wheezing, Cardiac:? S1-S2 is normal, regular rate and rhythm Abdomen:? Morbid obesity, soft, hypoactive bowel sounds tenderness in right upper quadrant Extremities:? Bilateral lower extremity pitting edema improving, wrinkling of skin on the feet are noted, palpable pedal pulses. Right calf is warm, erythematous, nontender Neuro:? Patient is intubated, sedated, opens her eyes, follows simple commands in all extremities and nods to questions Skin:? Erythema in the intertriginous region and under her pannus, skin is dry and warm Psych:? Unable to assess at this time Objective Data Vital Signs Vital Signs: Vital Signs - 24 hr 06/19/24 14:00 06/19/24 14:00 06/19/24 14:12 Temperature Pulse Rate 70 70 68 Respiratory Rate 20 21 H Blood Pressure Pulse Oximetry 96 Oxygen Delivery Mechanical Ventilation Fraction of Inspired Oxygen 40 06/19/24 14:00 06/19/24 14:15 06/19/24 14:30 Temperature Pulse Rate 70 69 69 Respiratory Rate Blood Pressure 96/39 L 96/39 L 99/42 L Pulse Oximetry Oxygen Delivery Fraction of Inspired Oxygen 06/19/24 14:45 06/19/24 15:00 06/19/24 15:15 Temperature Pulse Rate 68 69 66 Respiratory Rate Blood Pressure 94/38 L 99/40 L 99/37 L Pulse Oximetry Oxygen Delivery Fraction of Inspired Oxygen 06/19/24 15:30 06/19/24 15:45 06/19/24 14:00 Temperature Pulse Rate 66 66 70 Respiratory Rate 22 H Blood Pressure 96/36 L 104/41 L Pulse Oximetry Oxygen Delivery Fraction of Inspired Oxygen 06/19/24 14:00 06/19/24 16:00 06/19/24 16:00 Temperature Pulse Rate 70 67 67 Respiratory Rate 20 20 Blood Pressure 105/41 L Pulse Oximetry Oxygen Delivery Fraction of Inspired Oxygen 06/19/24 16:00 06/19/24 16:15 06/19/24 14:00 Temperature Pulse Rate 67 70 70 Respiratory Rate 20 20 Blood Pressure 110/46 L 96/39 L Pulse Oximetry 95 Oxygen Delivery Fraction of Inspired Oxygen 06/19/24 15:00 06/19/24 16:00 06/19/24 14:00 Temperature 98.7 F Pulse Rate 69 67 70 Respiratory Rate 20 20 Blood Pressure 99/40 L 105/41 L Pulse Oximetry 96 95 Oxygen Delivery Fraction of Inspired Oxygen 06/19/24 16:00 06/19/24 17:17 06/19/24 16:00 Temperature Pulse Rate 69 74 Respiratory Rate Blood Pressure Pulse Oximetry 94 95 Oxygen Delivery Mechanical Ventilation Mechanical Ventilation Fraction of Inspired Oxygen 40 40 06/19/24 16:00 06/19/24 17:44 06/19/24 17:44 Temperature Pulse Rate 73 73 Respiratory Rate 23 H 23 H Blood Pressure Pulse Oximetry Oxygen Delivery Fraction of Inspired Oxygen 40 06/19/24 17:47 06/19/24 18:00 06/19/24 18:00 Temperature Pulse Rate 73 71 71 Respiratory Rate 20 Blood Pressure 117/48 L 109/43 L Pulse Oximetry 96 Oxygen Delivery Fraction of Inspired Oxygen 06/19/24 18:00 06/19/24 19:43 06/19/24 19:45 Temperature Pulse Rate 71 72 72 Respiratory Rate 20 21 H Blood Pressure Pulse Oximetry 95 Oxygen Delivery Mechanical Ventilation Fraction of Inspired Oxygen 40 06/19/24 19:49 06/19/24 20:00 06/19/24 20:00 Temperature 99.1 F Pulse Rate 71 76 77 Respiratory Rate 22 H 25 H 24 H Blood Pressure 100/37 L Pulse Oximetry 94 Oxygen Delivery Fraction of Inspired Oxygen 06/19/24 20:00 06/19/24 20:00 06/19/24 20:00 Temperature Pulse Rate 77 77 Respiratory Rate 24 H Blood Pressure 110/64 Pulse Oximetry Oxygen Delivery Mechanical Ventilation Fraction of Inspired Oxygen 40 06/19/24 20:00 06/19/24 20:55 06/19/24 20:00 Temperature Pulse Rate 78 72 Respiratory Rate Blood Pressure Pulse Oximetry Oxygen Delivery Fraction of Inspired Oxygen 40 06/19/24 22:00 06/19/24 22:00 06/19/24 22:00 Temperature Pulse Rate 79 79 79 Respiratory Rate 26 H 26 H Blood Pressure 102/39 L Pulse Oximetry 92 Oxygen Delivery Fraction of Inspired Oxygen 06/19/24 22:00 06/19/24 22:00 06/19/24 22:50 Temperature Pulse Rate 79 79 79 Respiratory Rate 26 H Blood Pressure 102/39 L Pulse Oximetry 94 Oxygen Delivery Mechanical Ventilation Fraction of Inspired Oxygen 40 06/20/24 00:00 06/20/24 00:00 06/20/24 00:00 Temperature Pulse Rate 67 67 67 Respiratory Rate 22 H 22 H Blood Pressure 103/44 L Pulse Oximetry Oxygen Delivery Fraction of Inspired Oxygen 06/20/24 00:00 06/20/24 00:00 06/20/24 00:00 Temperature 98.7 F Pulse Rate 67 Respiratory Rate 22 H Blood Pressure 103/44 L Pulse Oximetry 96 Oxygen Delivery Mechanical Ventilation Fraction of Inspired Oxygen 40 40 06/20/24 00:00 06/20/24 01:32 06/20/24 01:35 Temperature Pulse Rate 68 66 66 Respiratory Rate 25 H Blood Pressure Pulse Oximetry 96 Oxygen Delivery Mechanical Ventilation Fraction of Inspired Oxygen 40 06/20/24 01:43 06/20/24 02:00 06/20/24 02:00 Temperature Pulse Rate 69 66 66 Respiratory Rate 20 21 H Blood Pressure 103/45 L Pulse Oximetry 95 Oxygen Delivery Fraction of Inspired Oxygen 06/20/24 02:00 06/20/24 02:00 06/20/24 02:00 Temperature Pulse Rate 66 66 66 Respiratory Rate 21 H 21 H Blood Pressure 103/45 L Pulse Oximetry Oxygen Delivery Fraction of Inspired Oxygen 06/20/24 04:00 06/20/24 04:00 06/20/24 04:00 Temperature 98.4 F Pulse Rate 67 68 68 Respiratory Rate 24 H 24 H Blood Pressure 98/40 L 98/40 L Pulse Oximetry 95 Oxygen Delivery Fraction of Inspired Oxygen 06/20/24 04:00 06/20/24 04:00 06/20/24 04:00 Temperature Pulse Rate 68 Respiratory Rate 24 H Blood Pressure Pulse Oximetry Oxygen Delivery Mechanical Ventilation Fraction of Inspired Oxygen 40 40 06/20/24 04:00 06/20/24 05:19 06/20/24 06:00 Temperature Pulse Rate 62 66 69 Respiratory Rate Blood Pressure Pulse Oximetry 95 Oxygen Delivery Mechanical Ventilation Fraction of Inspired Oxygen 40 06/20/24 06:00 06/20/24 06:00 06/20/24 06:00 Temperature Pulse Rate 69 69 69 Respiratory Rate 22 H 22 H Blood Pressure 100/42 L 100/42 L Pulse Oximetry 95 Oxygen Delivery Fraction of Inspired Oxygen 06/20/24 06:00 06/20/24 07:22 06/20/24 07:57 Temperature Pulse Rate 69 68 69 Respiratory Rate 22 H 25 H Blood Pressure 111/52 L Pulse Oximetry Oxygen Delivery Fraction of Inspired Oxygen 06/20/24 07:30 06/20/24 08:15 06/20/24 07:45 Temperature 98.3 F Pulse Rate 73 66 Respiratory Rate 23 H Blood Pressure 112/55 L 117/54 L Pulse Oximetry 92 Oxygen Delivery Fraction of Inspired Oxygen 40 06/20/24 08:30 06/20/24 08:01 06/20/24 08:00 Temperature Pulse Rate 69 68 69 Respiratory Rate 24 H Blood Pressure 101/48 L 117/54 L Pulse Oximetry Oxygen Delivery Fraction of Inspired Oxygen 06/20/24 08:00 06/20/24 08:45 06/20/24 09:15 Temperature Pulse Rate 70 71 Respiratory Rate Blood Pressure 101/45 L 105/48 L Pulse Oximetry Oxygen Delivery Fraction of Inspired Oxygen 40 06/20/24 09:45 06/20/24 10:00 06/20/24 10:15 Temperature Pulse Rate 73 71 71 Respiratory Rate Blood Pressure 108/52 L 101/47 L 99/49 L Pulse Oximetry Oxygen Delivery Fraction of Inspired Oxygen 06/20/24 10:30 06/20/24 10:45 06/20/24 11:00 Temperature Pulse Rate 71 71 72 Respiratory Rate Blood Pressure 99/49 L 102/47 L 102/49 L Pulse Oximetry Oxygen Delivery Fraction of Inspired Oxygen 06/20/24 11:15 06/20/24 11:30 06/20/24 11:45 Temperature Pulse Rate 73 72 74 Respiratory Rate Blood Pressure 103/47 L 105/50 L 109/56 L Pulse Oximetry Oxygen Delivery Fraction of Inspired Oxygen 06/20/24 12:04 06/20/24 09:00 06/20/24 09:30 Temperature 99.8 F H Pulse Rate 80 70 71 Respiratory Rate 28 H Blood Pressure 105/47 L 101/46 L 103/48 L Pulse Oximetry 94 Oxygen Delivery Fraction of Inspired Oxygen 06/20/24 08:00 06/20/24 08:00 06/20/24 10:00 Temperature Pulse Rate 69 69 71 Respiratory Rate 23 H 24 H Blood Pressure Pulse Oximetry Oxygen Delivery Fraction of Inspired Oxygen 06/20/24 08:00 06/20/24 10:00 06/20/24 08:00 Temperature Pulse Rate 69 71 69 Respiratory Rate 23 H Blood Pressure 117/54 L 101/47 L Pulse Oximetry Oxygen Delivery Fraction of Inspired Oxygen 06/20/24 10:00 06/20/24 08:00 06/20/24 08:00 Temperature 98.3 F Pulse Rate 71 69 Respiratory Rate 24 H 23 H Blood Pressure 117/54 L Pulse Oximetry 96 Oxygen Delivery Mechanical Ventilation Fraction of Inspired Oxygen 40 06/20/24 10:52 06/20/24 10:52 06/20/24 10:00 Temperature Pulse Rate 74 74 71 Respiratory Rate Blood Pressure 102/47 L 102/47 L Pulse Oximetry Oxygen Delivery Fraction of Inspired Oxygen 06/20/24 10:00 06/20/24 11:13 06/20/24 07:14 Temperature Pulse Rate 71 74 68 Respiratory Rate 24 H Blood Pressure 101/47 L Pulse Oximetry 95 95 94 Oxygen Delivery Mechanical Ventilation Mechanical Ventilation Fraction of Inspired Oxygen 40 40 06/20/24 11:59 06/20/24 12:00 06/20/24 12:00 Temperature Pulse Rate 74 75 75 Respiratory Rate 27 H 27 H Blood Pressure 102/47 L Pulse Oximetry Oxygen Delivery Fraction of Inspired Oxygen 06/20/24 12:00 06/20/24 12:00 06/20/24 12:00 Temperature 99.8 F H Pulse Rate 75 75 72 Respiratory Rate 27 H Blood Pressure 98/54 L 98/54 L Pulse Oximetry 94 Oxygen Delivery Fraction of Inspired Oxygen 06/20/24 13:01 Temperature Pulse Rate 72 Respiratory Rate Blood Pressure Pulse Oximetry Oxygen Delivery Fraction of Inspired Oxygen Intake/Output Intake/Output: Intake & Output 06/17/24 06/18/24 06/19/24 06/20/24 23:59 23:59 23:59 23:59 Intake Total 1385.4 1332.4 1519.7 923.1 Output Total 100 4150 50 4025 Balance 1285.4 -2817.6 1469.7 -3101.9 Meds/Results Medications: Active Medications Generic Name Dose Route Start Last Admin Trade Name Freq PRN Reason Stop Dose Admin Acetaminophen 650 mg 06/07/24 21:53 06/07/24 22:30 Acetaminophen Elixir 325 Mg/10.15 Ml Udc PO 650 mg Q6H PRN Administration Mild Pain (1-3) or Fever Albuterol/Ipratropium 3 ml 06/05/24 11:15 06/20/24 07:21 Ipratropium 0.5 Mg/Albuterol Sulfate 2.5 Mg Ampul.Neb 3 Ml INHALATION 3 ml Q6HRT JOHN Administration Amiodarone HCl 200 mg 06/02/24 21:00 06/20/24 13:01 Amiodarone Hcl 200 Mg Tablet PO 200 mg Q12HR JOHN Administration Dextrose 12.5 gm 06/05/24 11:46 Dextrose 50% 25 Gm/50 Ml Syringe IV PUSH PRN PRN Hypoglycemia Protocol Epoetin Shayan-epbx 10,000 units 06/18/24 09:00 06/20/24 10:58 Epoetin Shayan-Epbx 10,000 Units/Ml Vial IV PUSH 10,000 units MOWEFR@09 JOHN Administration Glucagon 1 mg 06/05/24 11:46 Glucagon For Inj 1 Mg Vial IM PRN PRN Hypoglycemia Protocol Glucose 15 gm 06/05/24 11:46 Glucose Oral Gel 15 Gm Of Glucse In 37.5 Gm Tube PO PRN PRN Hypoglycemia Protocol Norepinephrine Bitartrate 8 mg in 250 mls @ 13.125 mls/hr 06/05/24 00:35 06/20/24 12:00 Levophed 8 Mg/D5w 250 Ml IV CONT 7 mcg/min .Q19H3M JOHN 13.13 mls/hr Titration Protocol 7 MCG/MIN Fentanyl Citrate 2,500 mcg in 250 mls @ 5 mls/hr 06/05/24 08:35 06/20/24 12:00 Fentanyl 2,500 Mcg/Ns 250 Ml IV CONT 50 mcg/hr .Q50H JOHN 5 mls/hr Titration Protocol 50 MCG/HR Midazolam HCl 100 mg in 100 mls @ 2 mls/hr 06/05/24 08:35 06/20/24 12:00 Versed 100 Mg/Ns 100 Ml IV CONT 2 mg/hr .Q50H JOHN 2 mls/hr Titration Protocol 2 MG/HR Dextrose 1,000 mls @ 100 mls/hr 06/05/24 11:46 Dextrose 5% 1,000 Ml IVPB PRN PRN Hypoglycemia Protocol Albumin Human 50 mls @ 999 mls/hr 06/08/24 09:50 06/12/24 11:39 Albutein IVPB 07/08/24 09:49 Infused Q10M PRN Infusion HYPOTENSION Insulin Aspart 3 - 6 units 06/05/24 12:00 06/20/24 12:42 Insulin Aspart (*Bkc) 100 Units/Ml SUB-Q Not Given Q6HR [facility] Protocol Midodrine 10 mg 06/17/24 22:00 06/20/24 13:01 Midodrine Hcl 10 Mg Tablet PO 10 mg Q8H JOHN Administration Multi-Ingred Cream/Lotion/Oil/Oint 1 applic 06/05/24 09:00 06/20/24 13:02 Mineral Oil/White Petrolatum Ointment EACH EYE 1 applic Q12HR [facility] Administration Ondansetron HCl 4 mg 06/11/24 07:47 06/18/24 05:37 Ondansetron Inj 4 Mg/2 Ml Vial IV PUSH 4 mg Q6H PRN Administration Nausea And Vomiting Pantoprazole Sodium 40 mg 06/06/24 09:00 06/20/24 13:02 Pantoprazole Sodium Iv 40 Mg Vial IV PUSH 40 mg Q12HR [facility] Administration Fluticasone/Salmeterol 2 puff 06/03/24 08:00 06/14/24 12:38 Fluticasone/Salmeterol 115-21 Mcg Inhaler 1 Puff INHALATION Not Given Q12HRT [facility] Sodium Chloride 10 ml 06/05/24 06:00 06/20/24 13:02 Central Line Flush IV PUSH 10 ml Q8HR JOHN Administration Sodium Chloride 20 ml 06/05/24 03:12 Central Line Flush IV PUSH PRN PRN after blood draws Umeclidinium [place] 1 puff 06/03/24 08:00 06/14/24 12:38 Umeclidinium [place] 62.5 Mcg Ellipta INHALATION Not Given DAILYRT [facility] Radiology Results: ITS Impressions Renal Ultrasound 06/04/24 15:06 IMPRESSION: 1. Normal kidneys. No hydronephrosis. Abdomen Ultrasound 06/10/24 14:47 IMPRESSION: Fat infiltration. Enlarged left lobe of the liver. Slightly thickened wall of the gallbladder. Trace of ascites. Otherwise, normal Limited ultrasound of the abdomen. Abdomen X-Ray 06/16/24 13:54 IMPRESSION: 1. Nasogastric tube tip in the stomach. 2. Nonobstructive bowel gas pattern. 3. Diffuse lung disease, consistent with pulmonary edema versus pneumonia. 4. Cardiomegaly. Chest/Abdomen/Pelvis CT 06/17/24 10:03 IMPRESSION: 1. Diffuse lung disease, consistent with pulmonary edema versus pneumonia versus acute respiratory distress syndrome. 2. Cardiomegaly. 3. Small volume of ascites. Venous Doppler Study 06/17/24 11:49 IMPRESSION: 1. No deep venous thrombosis. Chest X-Ray 06/19/24 07:19 Impression: Extensive bilateral pulmonary edema pattern with probable small left pleural effusion and superimposed discoid right basilar atelectasis. Support tubes and pacemaker device, as above. Labs Labs: Laboratory Results - last 24 hr 06/19/24 06/19/24 06/20/24 17:44 23:35 04:59 WBC RBC Hgb Hct MCV MCH MCHC RDW Plt Count MPV Immature Gran % (Auto) Neut % (Auto) Lymph % (Auto) [place] % (Auto) Eos % (Auto) Baso % (Auto) Lymph # (Auto) [place] # (Auto) Eos # (Auto) Baso # (Auto) Abs Immat Gran (auto) Absolute Neuts (auto) Absolute Nucleated RBC Nucleated RBC % Puncture Site Right radial ABG pH 7.383 ABG pCO2 47.3 H ABG pO2 77.7 L ABG PO2/FiO2 Ratio 1.94 ABG HCO3 27.5 H ABG O2 Saturation 95.2 ABG O2 Content 14.8 L ABG Base Excess 2.0 A-a Gradient 153.1 Oxyhemoglobin 94.4 Carboxyhemoglobin 0.5 Methemoglobin 0.1 Reduced Hemoglobin 5.0 Total Hemoglobin 11.1 L O2 Delivery Device Ventilator O2 Liters/Min Not Reportable Minute Volume Not Reportable Vent Rate 20 Vent Mode Cmv FiO2 40 Tidal Volume 400 PEEP 8 Peak Inspir Pressure Not Reportable Pressure Support Not Reportable Sodium Potassium Chloride Carbon Dioxide Anion Gap BUN Creatinine Estim Creat Clear Calc Estimated GFR Glucose POC Capillary Glucose 140 H 153 H Calcium Phosphorus Magnesium Total Bilirubin AST ALT Alkaline Phosphatase Total Protein Albumin 06/20/24 06/20/24 05:38 12:41 WBC 15.0 H RBC 3.76 L Hgb 10.2 L Hct 33.3 L MCV 88.6 MCH 27.1 MCHC 30.6 L RDW 19.9 H Plt Count 284 MPV 9.8 Immature Gran % (Auto) 1.5 H Neut % (Auto) 74.2 H Lymph % (Auto) 11.4 L [place] % (Auto) 11.0 H Eos % (Auto) 1.3 Baso % (Auto) 0.6 Lymph # (Auto) 1.71 [place] # (Auto) 1.7 H Eos # (Auto) 0.2 Baso # (Auto) 0.1 Abs Immat Gran (auto) 0.22 H Absolute Neuts (auto) 11.1 H Absolute Nucleated RBC 0.000 Nucleated RBC % 0.0 Puncture Site ABG pH ABG pCO2 ABG pO2 ABG PO2/FiO2 Ratio ABG HCO3 ABG O2 Saturation ABG O2 Content ABG Base Excess A-a Gradient Oxyhemoglobin Carboxyhemoglobin Methemoglobin Reduced Hemoglobin Total Hemoglobin O2 Delivery Device O2 Liters/Min Minute Volume Vent Rate Vent Mode FiO2 Tidal Volume PEEP Peak Inspir Pressure Pressure Support Sodium 133 L Potassium 4.2 Chloride 95 L Carbon Dioxide 26 Anion Gap 12 BUN 79 H D Creatinine 4.70 H Estim Creat Clear Calc 19 Estimated GFR 10 L Glucose 150 H POC Capillary Glucose 153 H Calcium 9.8 Phosphorus 5.4 H Magnesium 2.5 H Total Bilirubin 1.3 AST 144 H ALT 69 H Alkaline Phosphatase 311 H Total Protein 7.0 Albumin 3.4 L Quality VTE Prophylaxis VTE prophylaxis: pharmacologic ordered
[2024-06-20 13:48] LABS: Anti Glomerular Basement Memb <1.0 AI
--- NOTE | 2024-06-20 13:51 | P.PNNP_ITS ---
Progress Note: A&P Assessment and Plan (1) JOVI (acute kidney injury): Code(s): N17.9 - Acute kidney failure, unspecified Status: Acute Assessment and Plan: * no real significant improvement to date * normal creatinine ~ 1 month ago * admitted with a creatinine of 2.1mg/dl with ongoing worsening noted * due to multifactorial ATN: * hemodynamic instability/shock * sepsis * infection (UTI +/- pneumonia) -- although culture negative to date * hypoxia * SLE flare (?) * other? * evaluation to date noted: * renal ultrasound negative for obstruction * urine eosinophils negative * urine electrolytes pre-renal (in spite of evidence of volume overload) * CPK low * moderate proteinuria (~ 600mg) * UA with blood and protein (and negative urine culture) * complements normal (arguing against lupus flare) * has been dialysis dependent since 06/05 * s/p daily dialysis alternating with DUF (except Sundays) to facilitate euvolemia * HD todat fand continue Tue/Tue/Tuesday schedule * will arrange for tunneled HD catheter placement * follow repeat labs and UOP to assess for potential renal recovery (2) Acute respiratory failure: Code(s): J96.00 - Acute respiratory failure, unspecified whether with hypoxia or hypercapnia Status: Acute Assessment and Plan: * intubated on 06/05 for impending respiratory failure * failed BiPAP therapy * ABG with noted hypercapnea and hypoxia * secondary to pulmonary edema, diffuse bilateral infiltrates and ARDS * on bronchodilators * weaned off steroids * continue dialyis/dry ultrafiltration for fluid removal * noted plans for tracheostomy and G-tube placement (3) Septic shock: Code(s): A41.9 - Sepsis, unspecified organism; R65.21 - Severe sepsis with septic shock Status: Acute Assessment and Plan: * initially thought to be secondary to UTI and pneumonia * remains on low dose levophed therapy to maintain MAP * Echo results noted * continue midodrine * culture data noted: * blood/urine cultures from 06/02 negative * blood culture 06/06 with E. coli and Staph epidermidis * urine culture on 06/06 negative. * blood culture on 06/08 negative * off all antibiotics at this time (since 06/12) * wean levophed as tolerated * follow trend of hemodynamics (4) Pulmonary edema: Code(s): J81.1 - Chronic pulmonary edema Status: Acute Assessment and Plan: * contributing to #2 * secondary to JOVI/ARF but ARDS an issues as well * failed diuretic therapy * HD/DUF for fluid removal * almost 20L negative since admission (5) Afib: Code(s): I48.91 - Unspecified atrial fibrillation Status: Acute Assessment and Plan: * rate control stratgey * on amiodarone and Eliquis (6) Anemia: Code(s): D64.9 - Anemia, unspecified Status: Acute Assessment and Plan: * related to JOVI and acute/critical illness * KIRILL with HD * follow trend of H/H (7) Liver cirrhosis secondary to HOFFMANN: Code(s): K75.81 - Nonalcoholic steatohepatitis (HOFFMANN); K74.60 - Unspecified cirrhosis of liver Status: Acute Assessment and Plan: * known history * normal liver by recent imaging * noted elevations in AST/ALT that have been up and down * fluctuating LFTS thought to be more related to congestion/volume overload * continue to follow (8) Type 2 diabetes mellitus: Code(s): E11.9 - Type 2 diabetes mellitus without complications Status: Acute Assessment and Plan: * follow accu-cheks * glycemic control per concrete pointer/hospitalist Will continue to follow. Subjective Date/time seen: 06/20/24 08:51 Interval history: Follow-up for acute kidney injury/acute renal failure with dialysis dependence. Tolerating dialysis treatment at the time of my visit (seen on HD at 8:40AM); otherwise, no real significant change at this time -- remains intubated/sedated and on mechanical ventilation with stable mentation (awake and alert, follows simple commands and able to nod to yes/no questions); remains on low dose levophed gtt; no apparent distress noted. Exam Narrative: General: large female intubated/sedated on mechanical ventilator Heart: normal S1 and S2; no rub Lungs: coarse breath sounds; decreased at bases Abdomen: obese but soft, nontender, nondistended, positive bowel sounds Extremities: no cyanosis or clubbing; 1+ edema Skin: warm and intact Objective Data Vital Signs Vital Signs: Vital Signs Temp Pulse Resp BP Pulse Ox O2 Del Method FiO2 06/20/24 08:30 69 101/48 L 06/20/24 08:15 73 112/52 L 06/20/24 07:45 98.3 F 66 23 H 117/54 L 92 06/20/24 07:30 40 06/20/24 07:57 69 111/52 L 06/20/24 07:22 68 25 H 06/20/24 06:00 69 22 H 06/20/24 06:00 69 100/42 L 06/20/24 06:00 69 22 H 06/20/24 06:00 69 22 H 100/42 L 95 06/20/24 06:00 69 06/20/24 05:19 66 95 Mechanical Ventilation 40 06/20/24 04:00 62 06/20/24 04:00 40 06/20/24 04:00 Mechanical Ventilation 40 06/20/24 04:00 68 24 H 06/20/24 04:00 68 98/40 L 06/20/24 04:00 68 24 H 06/20/24 04:00 98.4 F 67 24 H 98/40 L 95 06/20/24 02:00 66 21 H 06/20/24 02:00 66 103/45 L 06/20/24 02:00 66 21 H 06/20/24 02:00 66 21 H 103/45 L 95 06/20/24 02:00 66 06/20/24 01:43 69 20 06/20/24 01:35 66 96 Mechanical Ventilation 40 06/20/24 01:32 66 25 H 06/20/24 00:00 68 06/20/24 00:00 Mechanical Ventilation 40 06/20/24 00:00 98.7 F 67 22 H 103/44 L 96 06/20/24 00:00 40 06/20/24 00:00 67 22 H 06/20/24 00:00 67 103/44 L 06/20/24 00:00 67 22 H 06/19/24 22:50 79 94 Mechanical Ventilation 40 06/19/24 22:00 79 102/39 L 06/19/24 22:00 79 26 H 06/19/24 22:00 79 26 H 06/19/24 22:00 79 26 H 102/39 L 92 06/19/24 22:00 79 06/19/24 20:00 72 06/19/24 20:55 78 06/19/24 20:00 40 06/19/24 20:00 Mechanical Ventilation 40 06/19/24 20:00 77 110/64 06/19/24 20:00 77 24 H 06/19/24 20:00 77 24 H 06/19/24 20:00 99.1 F 76 25 H 100/37 L 94 06/19/24 19:49 71 22 H 06/19/24 19:45 72 95 Mechanical Ventilation 40 06/19/24 19:43 72 21 H 06/19/24 18:00 71 20 06/19/24 18:00 71 20 109/43 L 96 06/19/24 18:00 71 06/19/24 17:47 73 117/48 L 06/19/24 17:44 73 23 H 06/19/24 17:44 73 23 H 06/19/24 16:00 40 06/19/24 16:00 95 Mechanical Ventilation 40 06/19/24 17:17 74 94 Mechanical Ventilation 40 06/19/24 16:00 69 06/19/24 14:00 70 06/19/24 16:00 98.7 F 67 20 105/41 L 95 06/19/24 15:00 69 20 99/40 L 96 06/19/24 14:00 70 20 96/39 L 95 06/19/24 16:15 70 110/46 L 06/19/24 16:00 67 20 06/19/24 16:00 67 20 06/19/24 16:00 67 105/41 L 06/19/24 14:00 70 20 06/19/24 14:00 70 22 H 06/19/24 15:45 66 104/41 L 06/19/24 15:30 66 96/36 L 06/19/24 15:15 66 99/37 L 06/19/24 15:00 69 99/40 L 06/19/24 14:45 68 94/38 L 06/19/24 14:30 69 99/42 L 06/19/24 14:15 69 96/39 L 06/19/24 14:00 70 96/39 L 06/19/24 14:12 68 21 H 06/19/24 14:00 70 20 06/19/24 14:00 70 96 Mechanical Ventilation 40 Intake/Output Intake/Output: Intake & Output 06/17/24 06/18/24 06/19/24 06/20/24 23:59 23:59 23:59 23:59 Intake Total 1385.4 1332.4 1519.7 923.1 Output Total 100 4150 50 4025 Balance 1285.4 -2817.6 1469.7 -3101.9 Meds/Results Medications: Active Medications Generic Name Dose Route Start Last Admin Trade Name Freq PRN Reason Stop Dose Admin Acetaminophen 650 mg 06/07/24 21:53 06/07/24 22:30 Acetaminophen Elixir 325 Mg/10.15 Ml Udc PO 650 mg Q6H PRN Administration Mild Pain (1-3) or Fever Albuterol/Ipratropium 3 ml 06/05/24 11:15 06/20/24 13:32 Ipratropium 0.5 Mg/Albuterol Sulfate 2.5 Mg Ampul.Neb 3 Ml INHALATION 3 ml Q6HRT JOHN Administration Amiodarone HCl 200 mg 06/02/24 21:00 06/20/24 13:01 Amiodarone Hcl 200 Mg Tablet PO 200 mg Q12HR JOHN Administration Dextrose 12.5 gm 06/05/24 11:46 Dextrose 50% 25 Gm/50 Ml Syringe IV PUSH PRN PRN Hypoglycemia Protocol Epoetin Shayan-epbx 10,000 units 06/18/24 09:00 06/20/24 10:58 Epoetin Shayan-Epbx 10,000 Units/Ml Vial IV PUSH 10,000 units MOWEFR@09 JOHN Administration Glucagon 1 mg 06/05/24 11:46 Glucagon For Inj 1 Mg Vial IM PRN PRN Hypoglycemia Protocol Glucose 15 gm 06/05/24 11:46 Glucose Oral Gel 15 Gm Of Glucse In 37.5 Gm Tube PO PRN PRN Hypoglycemia Protocol Norepinephrine Bitartrate 8 mg in 250 mls @ 13.125 mls/hr 06/05/24 00:35 06/20/24 12:00 Levophed 8 Mg/D5w 250 Ml IV CONT 7 mcg/min .Q19H3M JOHN 13.13 mls/hr Titration Protocol 7 MCG/MIN Fentanyl Citrate 2,500 mcg in 250 mls @ 5 mls/hr 06/05/24 08:35 06/20/24 12:00 Fentanyl 2,500 Mcg/Ns 250 Ml IV CONT 50 mcg/hr .Q50H JOHN 5 mls/hr Titration Protocol 50 MCG/HR Midazolam HCl 100 mg in 100 mls @ 2 mls/hr 06/05/24 08:35 06/20/24 12:00 Versed 100 Mg/Ns 100 Ml IV CONT 2 mg/hr .Q50H JOHN 2 mls/hr Titration Protocol 2 MG/HR Dextrose 1,000 mls @ 100 mls/hr 06/05/24 11:46 Dextrose 5% 1,000 Ml IVPB PRN PRN Hypoglycemia Protocol Albumin Human 50 mls @ 999 mls/hr 06/08/24 09:50 06/12/24 11:39 Albutein IVPB 07/08/24 09:49 Infused Q10M PRN Infusion HYPOTENSION Insulin Aspart 3 - 6 units 06/05/24 12:00 06/20/24 12:42 Insulin Aspart (*Bkc) 100 Units/Ml SUB-Q Not Given Q6HR JOHN Protocol Midodrine 10 mg 06/17/24 22:00 06/20/24 13:01 Midodrine Hcl 10 Mg Tablet PO 10 mg Q8H JOHN Administration Multi-Ingred Cream/Lotion/Oil/Oint 1 applic 06/05/24 09:00 06/20/24 13:02 Mineral Oil/White Petrolatum Ointment EACH EYE 1 applic Q12HR JOHN Administration Ondansetron HCl 4 mg 06/11/24 07:47 06/18/24 05:37 Ondansetron Inj 4 Mg/2 Ml Vial IV PUSH 4 mg Q6H PRN Administration Nausea And Vomiting Pantoprazole Sodium 40 mg 06/06/24 09:00 06/20/24 13:02 Pantoprazole Sodium Iv 40 Mg Vial IV PUSH 40 mg Q12HR JOHN Administration Fluticasone/Salmeterol 2 puff 06/03/24 08:00 06/14/24 12:38 Fluticasone/Salmeterol 115-21 Mcg Inhaler 1 Puff INHALATION Not Given Q12HRT JOHN Sodium Chloride 10 ml 06/05/24 06:00 06/20/24 13:02 Central Line Flush IV PUSH 10 ml Q8HR JOHN Administration Sodium Chloride 20 ml 06/05/24 03:12 Central Line Flush IV PUSH PRN PRN after blood draws Umeclidinium [place] 1 puff 06/03/24 08:00 06/14/24 12:38 Umeclidinium [place] 62.5 Mcg Ellipta INHALATION Not Given DAILYRT [facility] Radiology Results: ITS Impressions Renal Ultrasound 06/04/24 15:06 IMPRESSION: 1. Normal kidneys. No hydronephrosis. Abdomen Ultrasound 06/10/24 14:47 IMPRESSION: Fat infiltration. Enlarged left lobe of the liver. Slightly thickened wall of the gallbladder. Trace of ascites. Otherwise, normal Limited ultrasound of the abdomen. Abdomen X-Ray 06/16/24 13:54 IMPRESSION: 1. Nasogastric tube tip in the stomach. 2. Nonobstructive bowel gas pattern. 3. Diffuse lung disease, consistent with pulmonary edema versus pneumonia. 4. Cardiomegaly. Chest/Abdomen/Pelvis CT 06/17/24 10:03 IMPRESSION: 1. Diffuse lung disease, consistent with pulmonary edema versus pneumonia versus acute respiratory distress syndrome. 2. Cardiomegaly. 3. Small volume of ascites. Venous Doppler Study 06/17/24 11:49 IMPRESSION: 1. No deep venous thrombosis. Chest X-Ray 06/19/24 07:19 Impression: Extensive bilateral pulmonary edema pattern with probable small left pleural effusion and superimposed discoid right basilar atelectasis. Support tubes and pacemaker device, as above. Labs Labs: Laboratory Tests 06/20/24 05:38 06/20/24 05:38 Calcium 9.8 Phosphorus 5.4 H Magnesium 2.5 H Total Bilirubin 1.3 AST 144 H ALT 69 H Alkaline Phosphatase 311 H Total Protein 7.0 Albumin 3.4 L
[2024-06-20 14:03] LABS: Complement Total CH50 >60 U/mL (31-60)
--- NOTE | 2024-06-20 16:25 | P.PNGS_ITS ---
Progress Note: A&P Assessment and Plan (1) Acute respiratory failure: Code(s): J96.00 - Acute respiratory failure, unspecified whether with hypoxia or hypercapnia Status: Acute Assessment and Plan: * She is unable to be weaned off the ventilator after 2 weeks and I have discussed her case with the Collections Agent, who has spoke with family extensively. They wish to proceed with tracheostomy and gastrostomy tube placement. GI is unable to proceed with a PEG tube due to her morbid obesity and hepatomegaly. The patient's morbid obesity, liver disease, anticoagulation, and other co-morbidities significantly increase her surgical risks. We will speak with the family and discuss all of the risks regarding surgery. If the family still wishes to proceed, then we will try adding her onto the surgery schedule either later this week or early next week. We will order labs tomorrow morning to recheck her PT/INR. Will follow along. (2) JOVI (acute kidney injury): Code(s): N17.9 - Acute kidney failure, unspecified Status: Acute Assessment and Plan: * Will plan for tunneled dialysis catheter placement later this week or early next week. See plan above. (3) Septic shock: Code(s): A41.9 - Sepsis, unspecified organism; R65.21 - Severe sepsis with septic shock Status: Acute (4) Pulmonary edema: Code(s): J81.1 - Chronic pulmonary edema Status: Acute (5) Afib: Code(s): I48.91 - Unspecified atrial fibrillation Status: Acute (6) Anticoagulated by anticoagulation treatment: Code(s): Z79.01 - care home (current) use of anticoagulants Status: Acute Assessment and Plan: * Eliquis is on hold. (7) SLE (systemic lupus erythematosus): Code(s): M32.9 - Systemic lupus erythematosus, unspecified Status: Acute (8) Liver cirrhosis secondary to HOFFMANN: Code(s): K75.81 - Nonalcoholic steatohepatitis (HOFFMANN); K74.60 - Unspecified cirrhosis of liver Status: Acute Assessment and Plan: * Increases risks for surgery. Will order coags tomorrow to re-evaluate. (9) Morbid obesity with BMI of 50.0-59.9, adult: Code(s): E66.01 - Morbid (severe) obesity due to excess calories; Z68.43 - Body mass index [BMI] 50.0-59.9, adult Status: Acute Assessment and Plan: * Significantly increases her risks of surgery. Plan I have discussed the patient's case and plan of care with Dr. Albert. Subjective Subjective Date/Time Seen: 06/20/24 10:25 Interval history: Patient intubated and sedated in the ICU. She is receiving dialysis this morning without any issues of her right IJ temporary catheter. Her Eliquis has been stopped and was last given around 9:00 a.m. yesterday. GI saw the patient and felt she was not a candidate for PEG tube placement due to her morbid obesity and hepatomegaly. I spoke with the trade show specialist who is requesting open gastrostomy tube placement. He has spoke with the family who continues to want to proceed with all invasive measures. Exam Const: General: comfortable and obese Orientation/consciousness: Other orientation findings (Intubated but awake and nods appropriately to questions) Neck: Neck: other (right IJ central venous catheter in place) Other: Largely obese neck GI: Inspection: non-distended, Pannus present and obesity GI Palp: Yes Soft to palpation, No Tenderness to palpation present (GI), No Guarding due to palpation present (GI) and Yes Hernia present umbilical 3-10 cm Auscultation: normal bowel sounds Objective Data Vital Signs Vital Signs: Vital Signs - 24 hr 06/19/24 17:17 06/19/24 17:44 06/19/24 17:44 Temperature Pulse Rate 74 73 73 Respiratory Rate 23 H 23 H Blood Pressure Pulse Oximetry 94 Oxygen Delivery Mechanical Ventilation Fraction of Inspired Oxygen 40 06/19/24 17:47 06/19/24 18:00 06/19/24 18:00 Temperature Pulse Rate 73 71 71 Respiratory Rate 20 Blood Pressure 117/48 L 109/43 L Pulse Oximetry 96 Oxygen Delivery Fraction of Inspired Oxygen 06/19/24 18:00 06/19/24 19:43 06/19/24 19:45 Temperature Pulse Rate 71 72 72 Respiratory Rate 20 21 H Blood Pressure Pulse Oximetry 95 Oxygen Delivery Mechanical Ventilation Fraction of Inspired Oxygen 40 06/19/24 19:49 06/19/24 20:00 06/19/24 20:00 Temperature 99.1 F Pulse Rate 71 76 77 Respiratory Rate 22 H 25 H 24 H Blood Pressure 100/37 L Pulse Oximetry 94 Oxygen Delivery Fraction of Inspired Oxygen 06/19/24 20:00 06/19/24 20:00 06/19/24 20:00 Temperature Pulse Rate 77 77 Respiratory Rate 24 H Blood Pressure 110/64 Pulse Oximetry Oxygen Delivery Mechanical Ventilation Fraction of Inspired Oxygen 40 06/19/24 20:00 06/19/24 20:55 06/19/24 20:00 Temperature Pulse Rate 78 72 Respiratory Rate Blood Pressure Pulse Oximetry Oxygen Delivery Fraction of Inspired Oxygen 40 06/19/24 22:00 06/19/24 22:00 06/19/24 22:00 Temperature Pulse Rate 79 79 79 Respiratory Rate 26 H 26 H Blood Pressure 102/39 L Pulse Oximetry 92 Oxygen Delivery Fraction of Inspired Oxygen 06/19/24 22:00 06/19/24 22:00 06/19/24 22:50 Temperature Pulse Rate 79 79 79 Respiratory Rate 26 H Blood Pressure 102/39 L Pulse Oximetry 94 Oxygen Delivery Mechanical Ventilation Fraction of Inspired Oxygen 40 06/20/24 00:00 06/20/24 00:00 06/20/24 00:00 Temperature Pulse Rate 67 67 67 Respiratory Rate 22 H 22 H Blood Pressure 103/44 L Pulse Oximetry Oxygen Delivery Fraction of Inspired Oxygen 06/20/24 00:00 06/20/24 00:00 06/20/24 00:00 Temperature 98.7 F Pulse Rate 67 Respiratory Rate 22 H Blood Pressure 103/44 L Pulse Oximetry 96 Oxygen Delivery Mechanical Ventilation Fraction of Inspired Oxygen 40 40 06/20/24 00:00 06/20/24 01:32 06/20/24 01:35 Temperature Pulse Rate 68 66 66 Respiratory Rate 25 H Blood Pressure Pulse Oximetry 96 Oxygen Delivery Mechanical Ventilation Fraction of Inspired Oxygen 40 06/20/24 01:43 06/20/24 02:00 06/20/24 02:00 Temperature Pulse Rate 69 66 66 Respiratory Rate 20 21 H Blood Pressure 103/45 L Pulse Oximetry 95 Oxygen Delivery Fraction of Inspired Oxygen 06/20/24 02:00 06/20/24 02:00 06/20/24 02:00 Temperature Pulse Rate 66 66 66 Respiratory Rate 21 H 21 H Blood Pressure 103/45 L Pulse Oximetry Oxygen Delivery Fraction of Inspired Oxygen 06/20/24 04:00 06/20/24 04:00 06/20/24 04:00 Temperature 98.4 F Pulse Rate 67 68 68 Respiratory Rate 24 H 24 H Blood Pressure 98/40 L 98/40 L Pulse Oximetry 95 Oxygen Delivery Fraction of Inspired Oxygen 06/20/24 04:00 06/20/24 04:00 06/20/24 04:00 Temperature Pulse Rate 68 Respiratory Rate 24 H Blood Pressure Pulse Oximetry Oxygen Delivery Mechanical Ventilation Fraction of Inspired Oxygen 40 40 06/20/24 04:00 06/20/24 05:19 06/20/24 06:00 Temperature Pulse Rate 62 66 69 Respiratory Rate Blood Pressure Pulse Oximetry 95 Oxygen Delivery Mechanical Ventilation Fraction of Inspired Oxygen 40 06/20/24 06:00 06/20/24 06:00 06/20/24 06:00 Temperature Pulse Rate 69 69 69 Respiratory Rate 22 H 22 H Blood Pressure 100/42 L 100/42 L Pulse Oximetry 95 Oxygen Delivery Fraction of Inspired Oxygen 06/20/24 06:00 06/20/24 07:22 06/20/24 07:57 Temperature Pulse Rate 69 68 69 Respiratory Rate 22 H 25 H Blood Pressure 111/52 L Pulse Oximetry Oxygen Delivery Fraction of Inspired Oxygen 06/20/24 07:30 06/20/24 08:15 06/20/24 07:45 Temperature 98.3 F Pulse Rate 73 66 Respiratory Rate 23 H Blood Pressure 112/55 L 117/54 L Pulse Oximetry 92 Oxygen Delivery Fraction of Inspired Oxygen 40 06/20/24 08:30 06/20/24 08:01 06/20/24 08:00 Temperature Pulse Rate 69 68 69 Respiratory Rate 24 H Blood Pressure 101/48 L 117/54 L Pulse Oximetry Oxygen Delivery Fraction of Inspired Oxygen 06/20/24 08:00 06/20/24 08:45 06/20/24 09:15 Temperature Pulse Rate 70 71 Respiratory Rate Blood Pressure 101/45 L 105/48 L Pulse Oximetry Oxygen Delivery Fraction of Inspired Oxygen 40 06/20/24 09:45 06/20/24 10:00 06/20/24 10:15 Temperature Pulse Rate 73 71 71 Respiratory Rate Blood Pressure 108/52 L 101/47 L 99/49 L Pulse Oximetry Oxygen Delivery Fraction of Inspired Oxygen 06/20/24 10:30 06/20/24 10:45 06/20/24 11:00 Temperature Pulse Rate 71 71 72 Respiratory Rate Blood Pressure 99/49 L 102/47 L 102/49 L Pulse Oximetry Oxygen Delivery Fraction of Inspired Oxygen 06/20/24 11:15 06/20/24 11:30 06/20/24 11:45 Temperature Pulse Rate 73 72 74 Respiratory Rate Blood Pressure 103/47 L 105/50 L 109/56 L Pulse Oximetry Oxygen Delivery Fraction of Inspired Oxygen 06/20/24 12:04 06/20/24 09:00 06/20/24 09:30 Temperature 99.8 F H Pulse Rate 80 70 71 Respiratory Rate 28 H Blood Pressure 105/47 L 101/46 L 103/48 L Pulse Oximetry 94 Oxygen Delivery Fraction of Inspired Oxygen 06/20/24 08:00 06/20/24 08:00 06/20/24 10:00 Temperature Pulse Rate 69 69 71 Respiratory Rate 23 H 24 H Blood Pressure Pulse Oximetry Oxygen Delivery Fraction of Inspired Oxygen 06/20/24 08:00 06/20/24 10:00 06/20/24 08:00 Temperature Pulse Rate 69 71 69 Respiratory Rate 23 H Blood Pressure 117/54 L 101/47 L Pulse Oximetry Oxygen Delivery Fraction of Inspired Oxygen 06/20/24 10:00 06/20/24 08:00 06/20/24 08:00 Temperature 98.3 F Pulse Rate 71 69 Respiratory Rate 24 H 23 H Blood Pressure 117/54 L Pulse Oximetry 96 Oxygen Delivery Mechanical Ventilation Fraction of Inspired Oxygen 40 06/20/24 10:52 06/20/24 10:52 06/20/24 10:00 Temperature Pulse Rate 74 74 71 Respiratory Rate Blood Pressure 102/47 L 102/47 L Pulse Oximetry Oxygen Delivery Fraction of Inspired Oxygen 06/20/24 10:00 06/20/24 11:13 06/20/24 07:14 Temperature Pulse Rate 71 74 68 Respiratory Rate 24 H Blood Pressure 101/47 L Pulse Oximetry 95 95 94 Oxygen Delivery Mechanical Ventilation Mechanical Ventilation Fraction of Inspired Oxygen 40 40 06/20/24 11:59 06/20/24 12:00 06/20/24 12:00 Temperature Pulse Rate 74 75 75 Respiratory Rate 27 H 27 H Blood Pressure 102/47 L Pulse Oximetry Oxygen Delivery Fraction of Inspired Oxygen 06/20/24 12:00 06/20/24 12:00 06/20/24 12:00 Temperature 99.8 F H Pulse Rate 75 75 72 Respiratory Rate 27 H Blood Pressure 98/54 L 98/54 L Pulse Oximetry 94 Oxygen Delivery Fraction of Inspired Oxygen 06/20/24 13:01 06/20/24 12:00 06/20/24 12:00 Temperature Pulse Rate 72 Respiratory Rate Blood Pressure Pulse Oximetry Oxygen Delivery Mechanical Ventilation Fraction of Inspired Oxygen 40 40 06/20/24 13:37 06/20/24 13:38 06/20/24 14:02 Temperature Pulse Rate 73 73 72 Respiratory Rate 25 H 26 H Blood Pressure Pulse Oximetry 95 Oxygen Delivery Mechanical Ventilation Fraction of Inspired Oxygen 40 06/20/24 14:00 06/20/24 14:00 06/20/24 14:40 Temperature Pulse Rate 73 73 71 Respiratory Rate 26 H Blood Pressure 114/50 L 112/50 L Pulse Oximetry 96 Oxygen Delivery Fraction of Inspired Oxygen 06/20/24 14:00 Temperature Pulse Rate 73 Respiratory Rate Blood Pressure 114/50 L Pulse Oximetry Oxygen Delivery Fraction of Inspired Oxygen Intake/Output Intake/Output: Intake & Output 06/17/24 06/18/24 06/19/24 06/20/24 23:59 23:59 23:59 23:59 Intake Total 1385.4 1332.4 1519.7 958.2 Output Total 100 4150 50 4025 Balance 1285.4 -2817.6 1469.7 -3066.8 Meds/Results Medications: Active Medications Generic Name Dose Route Start Last Admin Trade Name Freq PRN Reason Stop Dose Admin Acetaminophen 650 mg 06/07/24 21:53 06/07/24 22:30 Acetaminophen Elixir 325 Mg/10.15 Ml Udc PO 650 mg Q6H PRN Administration Mild Pain (1-3) or Fever Albuterol/Ipratropium 3 ml 06/05/24 11:15 06/20/24 13:32 Ipratropium 0.5 Mg/Albuterol Sulfate 2.5 Mg Ampul.Neb 3 Ml INHALATION 3 ml Q6HRT JOHN Administration Amiodarone HCl 200 mg 06/02/24 21:00 06/20/24 13:01 Amiodarone Hcl 200 Mg Tablet PO 200 mg Q12HR JOHN Administration Dextrose 12.5 gm 06/05/24 11:46 Dextrose 50% 25 Gm/50 Ml Syringe IV PUSH PRN PRN Hypoglycemia Protocol Epoetin Shayan-epbx 10,000 units 06/18/24 09:00 06/20/24 10:58 Epoetin Shayan-Epbx 10,000 Units/Ml Vial IV PUSH 10,000 units MOWEFR@09 JOHN Administration Glucagon 1 mg 06/05/24 11:46 Glucagon For Inj 1 Mg Vial IM PRN PRN Hypoglycemia Protocol Glucose 15 gm 06/05/24 11:46 Glucose Oral Gel 15 Gm Of Glucse In 37.5 Gm Tube PO PRN PRN Hypoglycemia Protocol Norepinephrine Bitartrate 8 mg in 250 mls @ 11.25 mls/hr 06/05/24 00:35 06/20/24 14:40 Levophed 8 Mg/D5w 250 Ml IV CONT 6 mcg/min .[id number] JOHN 11.25 mls/hr Titration Protocol 6 MCG/MIN Fentanyl Citrate 2,500 mcg in 250 mls @ 5 mls/hr 06/05/24 08:35 06/20/24 12:00 Fentanyl 2,500 Mcg/Ns 250 Ml IV CONT 50 mcg/hr .Q50H JOHN 5 mls/hr Titration Protocol 50 MCG/HR Midazolam HCl 100 mg in 100 mls @ 2 mls/hr 06/05/24 08:35 06/20/24 12:00 Versed 100 Mg/Ns 100 Ml IV CONT 2 mg/hr .Q50H JOHN 2 mls/hr Titration Protocol 2 MG/HR Dextrose 1,000 mls @ 100 mls/hr 06/05/24 11:46 Dextrose 5% 1,000 Ml IVPB PRN PRN Hypoglycemia Protocol Albumin Human 50 mls @ 999 mls/hr 06/08/24 09:50 06/12/24 11:39 Albutein IVPB 07/08/24 09:49 Infused Q10M PRN Infusion HYPOTENSION Insulin Aspart 3 - 6 units 06/05/24 12:00 06/20/24 12:42 Insulin Aspart (*Bkc) 100 Units/Ml SUB-Q Not Given Q6HR JOHN Protocol Midodrine 10 mg 06/17/24 22:00 06/20/24 13:01 Midodrine Hcl 10 Mg Tablet PO 10 mg Q8H JOHN Administration Multi-Ingred Cream/Lotion/Oil/Oint 1 applic 06/05/24 09:00 06/20/24 13:02 Mineral Oil/White Petrolatum Ointment EACH EYE 1 applic Q12HR JOHN Administration Ondansetron HCl 4 mg 06/11/24 07:47 06/18/24 05:37 Ondansetron Inj 4 Mg/2 Ml Vial IV PUSH 4 mg Q6H PRN Administration Nausea And Vomiting Pantoprazole Sodium 40 mg 06/06/24 09:00 06/20/24 13:02 Pantoprazole Sodium Iv 40 Mg Vial IV PUSH 40 mg Q12HR JOHN Administration Fluticasone/Salmeterol 2 puff 06/03/24 08:00 06/14/24 12:38 Fluticasone/Salmeterol 115-21 Mcg Inhaler 1 Puff INHALATION Not Given Q12HRT JOHN Sodium Chloride 10 ml 06/05/24 06:00 06/20/24 13:02 Central Line Flush IV PUSH 10 ml Q8HR JOHN Administration Sodium Chloride 20 ml 06/05/24 03:12 Central Line Flush IV PUSH PRN PRN after blood draws Umeclidinium [place] 1 puff 06/03/24 08:00 06/14/24 12:38 Umeclidinium [place] 62.5 Mcg Ellipta INHALATION [facility] Results: ITS Impressions Renal Ultrasound 06/04/24 15:06 IMPRESSION: 1. Normal kidneys. No hydronephrosis. Abdomen Ultrasound 06/10/24 14:47 IMPRESSION: Fat infiltration. Enlarged left lobe of the liver. Slightly thickened wall of the gallbladder. Trace of ascites. Otherwise, normal Limited ultrasound of the abdomen. Abdomen X-Ray 06/16/24 13:54 IMPRESSION: 1. Nasogastric tube tip in the stomach. 2. Nonobstructive bowel gas pattern. 3. Diffuse lung disease, consistent with pulmonary edema versus pneumonia. 4. Cardiomegaly. Chest/Abdomen/Pelvis CT 06/17/24 10:03 IMPRESSION: 1. Diffuse lung disease, consistent with pulmonary edema versus pneumonia versus acute respiratory distress syndrome. 2. Cardiomegaly. 3. Small volume of ascites. Venous Doppler Study 06/17/24 11:49 IMPRESSION: 1. No deep venous thrombosis. Chest X-Ray 06/19/24 07:19 Impression: Extensive bilateral pulmonary edema pattern with probable small left pleural effusion and superimposed discoid right basilar atelectasis. Support tubes and pacemaker device, as above. Labs Labs: Laboratory Results - last 24 hr 06/17/24 06/19/24 06/19/24 16:48 17:44 23:35 WBC RBC Hgb Hct MCV MCH MCHC RDW Plt Count MPV Immature Gran % (Auto) Neut % (Auto) Lymph % (Auto) [place] % (Auto) Eos % (Auto) Baso % (Auto) Lymph # (Auto) [place] # (Auto) Eos # (Auto) Baso # (Auto) Abs Immat Gran (auto) Absolute Neuts (auto) Absolute Nucleated RBC Nucleated RBC % Puncture Site ABG pH ABG pCO2 ABG pO2 ABG PO2/FiO2 Ratio ABG HCO3 ABG O2 Saturation ABG O2 Content ABG Base Excess A-a Gradient Oxyhemoglobin Carboxyhemoglobin Methemoglobin Reduced Hemoglobin Total Hemoglobin O2 Delivery Device O2 Liters/Min Minute Volume Vent Rate Vent Mode FiO2 Tidal Volume PEEP Peak Inspir Pressure Pressure Support Sodium Potassium Chloride Carbon Dioxide Anion Gap BUN Creatinine Estim Creat Clear Calc Estimated GFR Glucose POC Capillary Glucose 140 H 153 H Calcium Phosphorus Magnesium Total Bilirubin AST ALT Alkaline Phosphatase Total Protein Albumin Glomerular Base Memb Ab <1.0 Tot Complement (CH50) >60 H 06/20/24 06/20/24 06/20/24 04:59 05:38 12:41 WBC 15.0 H RBC 3.76 L Hgb 10.2 L Hct 33.3 L MCV 88.6 MCH 27.1 MCHC 30.6 L RDW 19.9 H Plt Count 284 MPV 9.8 Immature Gran % (Auto) 1.5 H Neut % (Auto) 74.2 H Lymph % (Auto) 11.4 L [place] % (Auto) 11.0 H Eos % (Auto) 1.3 Baso % (Auto) 0.6 Lymph # (Auto) 1.71 [place] # (Auto) 1.7 H Eos # (Auto) 0.2 Baso # (Auto) 0.1 Abs Immat Gran (auto) 0.22 H Absolute Neuts (auto) 11.1 H Absolute Nucleated RBC 0.000 Nucleated RBC % 0.0 Puncture Site Right radial ABG pH 7.383 ABG pCO2 47.3 H ABG pO2 77.7 L ABG PO2/FiO2 Ratio 1.94 ABG HCO3 27.5 H ABG O2 Saturation 95.2 ABG O2 Content 14.8 L ABG Base Excess 2.0 A-a Gradient 153.1 Oxyhemoglobin 94.4 Carboxyhemoglobin 0.5 Methemoglobin 0.1 Reduced Hemoglobin 5.0 Total Hemoglobin 11.1 L O2 Delivery Device Ventilator O2 Liters/Min Not Reportable Minute Volume Not Reportable Vent Rate 20 Vent Mode Cmv FiO2 40 Tidal Volume 400 PEEP 8 Peak Inspir Pressure Not Reportable Pressure Support Not Reportable Sodium 133 L Potassium 4.2 Chloride 95 L Carbon Dioxide 26 Anion Gap 12 BUN 79 H D Creatinine 4.70 H Estim Creat Clear Calc 19 Estimated GFR 10 L Glucose 150 H POC Capillary Glucose 153 H Calcium 9.8 Phosphorus 5.4 H Magnesium 2.5 H Total Bilirubin 1.3 AST 144 H ALT 69 H Alkaline Phosphatase 311 H Total Protein 7.0 Albumin 3.4 L Glomerular Base Memb Ab Tot Complement (CH50)
[2024-06-20 17:32] LABS: Glucose Point of Care 131 mg/dl (65-105)
[2024-06-21] VITALS (47 sets, daily range): BP systolic 87–119; BP diastolic 42–56; PULSE 60–78; RESP 18–30; TEMP 36.8–37.4; O2SAT 92–97
[2024-06-21 00:37] LABS: Glucose Point of Care 156 mg/dl (65-105)
[2024-06-21] MEDS: ONDANSETRON INJ 4 MG/2 ML VIAL IV PUSH ×2 (01:28→20:28)
[2024-06-21] MEDS: IPRATROPIUM 0.5 MG/ALBUTEROL SULFATE 2.5 MG AMPUL.NEB 3 ML INHALATION ×4 (02:25→20:36)
[2024-06-21 05:14] LABS: Alveolar/Arterial O2 Gradient 158.3 mmHg; Base Excess ABG 1.3 mEq/l (+/-2.0); Carboxyhemoglobin 0.4 % THb (0-2.0); Fractional Inspired Oxygen 40 %; HCO3 ABG 26.8 mEq/l (22.0-26.0); Methemoglobin ABG 0.2 %THb (0-1.5); Oxygen Content ABG 14.1 %vol (16.0-22.0); Oxygen Saturation ABG 94.3 % (95.0-100.0); Oxyhemoglobin 93.2 % THb (90.0-100.0); PCO2 ABG 46.7 mmHg (35.0-45.0); PO2 ABG 73.2 mmHg (80.0-100.0); PO2 FiO2 Ratio Arterial Blood 1.83 %; Reduced Hemoglobin 6.2 %THb (0-5.0); Total Hemoglobin 10.7 g/dL (12.0-18.0); pH ABG 7.377 (7.350-7.450)
[2024-06-21 05:15] LABS: Device VENTILATOR; Modified Allen's Test Pass; Site Drawn RIGHT RADIAL
[2024-06-21 05:16] LABS: Arterial Blood Gas PEEP 8 cmH2O; Arterial Blood Gas Tidal Volume 400 ml; Arterial Blood Gas Vent Mode CMV; Arterial Blood Gas Ventilator rate 20 /MIN
[2024-06-21] MEDS: MIDODRINE HCL 10 MG TABLET PO ×3 (05:23→21:29)
[2024-06-21] MEDS: CENTRAL LINE FLUSH 10 ML IV PUSH ×3 (05:24→21:29)
[2024-06-21 05:38] LABS: Basophils Absolute Auto 0.1 K/mm3 (0.0-0.1); Basophils Percent Auto 0.5 % (0.2-1.2); Eosinophils Absolute Auto 0.2 K/mm3 (0-0.3); Eosinophils Percent Auto 1.2 % (0-4.4); Hematocrit 30.9 % (37.0-47.0); Hemoglobin 9.4 g/dL (12.0-15.0); Immature Granulocyte Absolute 0.21 K/mm3 (0.00-0.031); Immature Granulocyte Percent A 1.7 % (0-0.5); Lymphocytes Absolute Auto 1.39 K/mm3 (0.9-3.2); Lymphocytes Percent Auto 11.2 % (18.3-44.2); Mean Corpuscular HGB Conc 30.4 g/dl (32-36); Mean Corpuscular Hemoglobin 27.2 pg (26-34); Mean Corpuscular Volume 89.3 fl (80-100); Mean Platelet Volume 9.6 fl (7.4-10.4); Monocytes Absolute Auto 1.5 K/mm3 (0.1-0.6); Monocytes Percent Auto 12.2 % (2.6-8.5); Neutrophils Absolute Auto 9.1 K/mm3 (1.3-6.7); Neutrophils Percent Auto 73.2 % (45.5-73.1); Nucleated Red Blood Cells Perc 0.3 % (0.0-0.2); Platelet Count Result 228 k/mm3 (150-375); Red Blood Count 3.46 M/mm3 (4.2-5.4); Red Cell Distribution Width 19.4 % (11.5-14.5); White Blood Count 12.4 K/mm3 (4.5-10.0)
[2024-06-21 05:49] LABS: Alanine Aminotransferase 68 U/L (6-35); Albumin Level 3.2 g/dL (3.5-5.1); Alkaline Phosphatase 293 U/L (38-126); Anion Gap 10 mmol/L (4-12); Aspartate Amino Transferase 151 U/L (14-36); Bilirubin,Total 1.3 mg/dL (0.2-1.3); Blood Urea Nitrogen 53 mg/dL (7-17); Calcium 9.7 mg/dL (8.4-10.2); Carbon Dioxide 28 mmol/L (22-30); Chloride 98 mmol/L (98-107); Estimated CRCL calculation 24 ml/min; Estimated Glomerular Filt Rate 13; Glucose 126 mg/dL (65-110); Magnesium 2.4 mg/dL (1.6-2.3); Phosphorus 3.7 mg/dL (2.5-4.5); Potassium 3.9 mmol/L (3.4-5.0); Sodium 136 mmol/L (137-145)
[2024-06-21 06:01] LABS: INR 1.5; Prothrombin Time 18.1 Seconds (11.1-14.7)
[2024-06-21] MEDS: MINERAL OIL/WHITE PETROLATUM OINTMENT 1 APPLIC EACH EYE ×2 (09:31→21:29)
[2024-06-21] MEDS: AMIODARONE HCL 200 MG TABLET PO ×2 (09:31→21:29)
[2024-06-21] MEDS: PANTOPRAZOLE SODIUM IV 40 MG VIAL IV PUSH ×2 (09:31→21:29)
--- NOTE | 2024-06-21 11:02 | P.PNINT_ITS ---
Progress Note: A&P Assessment and Plan (1) Acute respiratory failure: Code(s): J96.00 - Acute respiratory failure, unspecified whether with hypoxia or hypercapnia Status: Acute Assessment and Plan: Chest x-ray bilateral diffuse pulmonary infiltrates/pulmonary edema. Patient was placed on BiPAP. ABG showed hypercapnic and hypoxemic respiratory failure. Etiology pulmonary edema, pneumonia, ARDS -06/05: patient intubated for impending respiratory failure. Intubation was slightly challenging secondary to body habitus, small mouth, large tongue, redundant tissue in the hypopharynx and anterior vocal cords requiring cricoid pressure and use of glide scope. CT chest 06/17 IMPRESSION: 1. Diffuse lung disease, consistent with pulmonary edema versus pneumonia versus acute respiratory distress syndrome. 2. Cardiomegaly. 3. Small volume of ascites. -currently on CMV mode of ventilation, currently on PEEP down to 8, 40% FiO2, -chest x-ray reviewed and shows improvement although still has diffuse bilateral infiltrates although there has been improvement -continue bronchodilators - fentanyl and Versed infusion for analgosedation, will maintain RASS of -2 -patient has significant volume overload and need additional fluid removed patient is being dialyzed again today. -will try PSV again after dialysis today Overall patient has been on a ventilator for more than 2 weeks now at this point patient has not shown any significant indication of weaning. I have spoken to patient's sister who is her POA and son by phone today and discussed options of tracheostomy and PEG tube placement in case patient is not weanable from mechanical ventilation. Will discuss among themselves and get back to me later today. 06/19: Discussed with patient's sister who is the POA and patient's son, they they requested and agreeable for tracheostomy and PEG tube placement -ENT as scheduled tracheostomy placement for 06/25/2024 -GI cannot place the PEG tube due to patient's body habitus as well as enlarged liver -surgery will place G-tube most likely on 06/22/2024. At the same time they will be placing tunneled dialysis catheter (2) Septic shock: Code(s): A41.9 - Sepsis, unspecified organism; R65.21 - Severe sepsis with septic shock Status: Acute Assessment and Plan: Septic shock could be related to UTI, pneumonia -patient was hypotensive in the intermediate Unit and was transferred to the ICU which she received fluids, albumin -continue norepinephrine, will maintain MAP > 65 mmHg or SBP > 100 mmHg adequate end organ perfusion -off vasopressin since 06/06/2024 evening -off vancomycin -completed cefepime for a total of 7 days -fluconazole was discontinued given her renal dysfunction -off stress dose steroids -continue midodrine -06/17: CT chest abdomen and pelvis for ongoing leukocytosis and vasopressor requirement. Will also obtain right lower extremity venous Dopplers since patient has a right lower extremity is erythematous, slightly swollen. 06/05/2024: Echocardiogram Summary 1. Left ventricular chamber dimension is normal. 2. Left ventricular systolic function is normal, estimated at 65-70%. 3. The left ventricular diastolic function is grade I diastolic dysfunction. 4. Right ventricular chamber dimension is moderately enlarged. 5. Right ventricular systolic function is normal. 6. Left atrial chamber dimension is moderately enlarged. 7. Right atrial chamber dimension is moderately enlarged. 8. There is mild to moderate tricuspid valve regurgitation. (3) JOVI (acute kidney injury): Code(s): N17.9 - Acute kidney failure, unspecified Status: Acute Assessment and Plan: Patient with acute kidney injury, with increase creatinine to 4.60 (creatinine on admission on 06/02/2024 was 2.10 and her creatinine on 04/26/2024 was 0.90) -etiology for acute kidney injury could be multifactorial, hypotension, shock, sepsis, UTI/pneumonia, hypoxia,? SLE flare, CHF, -CK levels are within normal limits -urine eosinophils were negative -urine electrolytes showed prerenal picture, patient seems to be volume overloaded -status post given IV fluids and albumin, will hold fluids for now -discussed with relish maker at [facility], feels that the patient is uns table to be transferred at this time for CRRT, recommended conventional dialysis. -discussed with nutrition club ambassador at [facility], agrees to conventional dialysis at this time -06/05: dialysis catheter was placed in the right IJ and exchange for the central line -06/05: Initiated dialysis, with 3000 mL of fluid removal -06/06: Dialysis with 3000 mL in fluid removal -06/07: Dialysis with 3700 mL in fluid removal -06/08: Dialysis with 2900 mL in fluid removal -06/09: Dialysis with 3000 mL in fluid removal -06/10: No dialysis -10/22: Patient was dialyzed and 3.1 P L fluid was removed -06/13 getting dialyzed again today. 4 L removed - 06/14: 3000 mL removed - 06/15: 4000 mL fluid was removed - 06/16: 4000 mL in fluid removal with dialysis - 06/18: 4000 ml in fluid removal - 06/20: 4000 mL in fluid removal Surgery to place tunneled dialysis catheter on 06/22/2024 (4) Pulmonary edema: Code(s): J81.1 - Chronic pulmonary edema Status: Acute Assessment and Plan: Pulmonary edema likely related to acute kidney injury, ARDS, -did not respond to Bumex -continue fluid removal with dialysis (5) Type 2 diabetes mellitus: Code(s): E11.9 - Type 2 diabetes mellitus without complications Status: Acute Assessment and Plan: SSI and accucheks HbA1C is 5.7 this admission (6) Afib: Code(s): I48.91 - Unspecified atrial fibrillation Status: Acute Assessment and Plan: continue amiodarone -Eliquis currently on hold for procedures - flecainide was stopped (7) SLE (systemic lupus erythematosus): Code(s): M32.9 - Systemic lupus erythematosus, unspecified Status: Acute Assessment and Plan: Off steroids (8) Liver cirrhosis secondary to HOFFMANN: Code(s): K75.81 - Nonalcoholic steatohepatitis (HOFFMANN); K74.60 - Unspecified cirrhosis of liver Status: Acute Assessment and Plan: Continues to have mild elevation in LFTs and bilirubin which is stable 06/10/2024: RUQ ultrasound: Fat infiltration. Enlarged left lobe of the liver. Slightly thickened wall of the gallbladder. Trace of ascites. Otherwise, normal Limited ultrasound of the abdomen. -06/10/2024: Hepatitis panel is negative -continue to monitor (9) GERD (gastroesophageal reflux disease): Code(s): K21.9 - Gastro-esophageal reflux disease without esophagitis Status: Acute Assessment and Plan: Continue Protonix (10) Morbid obesity with BMI of 50.0-59.9, adult: Code(s): E66.01 - Morbid (severe) obesity due to excess calories; Z68.43 - Body mass index [BMI] 50.0-59.9, adult Status: Acute Assessment and Plan: Once extubated she will need lifestyle changes Plan DVT prophylaxis: Eliquis on hold for procedures Stress ulcer prophylaxis: Protonix Nutrition: Tube feeds at goal and tolerating Code Status: Full code Critical Care Time Spent: 32 minutes 06/21: Discussed with surgery, likely G-tube and tunnel dialysis catheter on 06/22/202406/19: Discussed with patient's sister who is the POA and patient's son, they they requested and agreeable for tracheostomy and PEG tube placement -GI may not be able to place a PEG tube since her liver is enlarged, have asked surgery place a gastric tube if possible -trying to get ENT to place a tracheostomy 06/18: Dr. Romero spoke to patient's sister who is her POA and son by phone. He updated them with patient's current status including respiratory failure failure to wean till now, CT scan results, continue need for dialysis for renal failure, prognosis, goals of care and options of trach and PEG. I answered all their questions Due to a high probability of clinically significant, life threatening deterioration, the patient required my highest level of preparedness to i ntervene emergently and I personally spent this critical care time directly and personally managing the patient. This critical care time included obtaining a history; examining the patient; pulse oximetry; ordering and review of studies; arranging urgent treatment with development of a management plan; evaluation of patient's response to treatment; frequent reassessment; and discussions with other providers. It was exclusive of separately billable procedures and treating other patients and teaching time. Please see Assessment and Plan section and the rest of the note for further information on patient assessment and treatment This dictation may have been done utilizing a voice recognition system. Attempts have been made to correct errors. However, there may be uncorrected grammatical, spelling, and recognitions errors present This dictation may have been done utilizing a voice recognition system. Attempts have been made to correct errors. However, there may be uncorrected grammatica l, spelling, and recognitions errors present. Subjective Date/time seen: 06/21/24 11:02 Interval history: Reason for consult: Acute respiratory failure, septic shock, acute kidney injury, pulmonary edema 06/05: Intubated 06/21/2024: Patient seen and examined the ICU, remains intubated on CMV mode of ventilation, peep of 8, 40% FiO2 with adequate O2 sats. Remains on and off Levophed. Remains oliguric/anuric. 4000 mL in fluid removal yesterday. Remains on fentanyl and Versed infusion is awake, alert, follows simple commands in all extremities Review of Systems Review of Systems: ROS unobtainable: Yes unobtainable due to endotracheal tube, unobtainable due to medical condition and unobtainable due to mental status Exam Narrative: General: Morbidly obese female currently intubated and sedated in no acute distress HEENT:? Pupils equal and reactive bilaterally, sclera is clear, ETT in place Neck:, short and thick neck, Respiratory:? Decreased and coarse breath sounds bilaterally, no wheezing, Cardiac:? S1-S2 is normal, regular rate and rhythm Abdomen:? Morbid obesity, soft, hypoactive bowel sounds tenderness in right upper quadrant Extremities:? Bilateral lower extremity pitting edema improving, wrinkling of skin on the feet are noted, palpable pedal pulses. Right calf is warm, erythematous, nontender Neuro:? Patient is intubated, sedated, opens her eyes, follows simple commands in all extremities and nods to questions Skin:? Erythema in the intertriginous region and under her pannus, skin is dry and warm Psych:? Unable to assess at this time Objective Data Vital Signs Vital Signs: Vital Signs - 24 hr 06/20/24 11:15 06/20/24 11:30 06/20/24 11:45 Temperature Pulse Rate 73 72 74 Respiratory Rate Blood Pressure 103/47 L 105/50 L 109/56 L Pulse Oximetry Oxygen Delivery Fraction of Inspired Oxygen 06/20/24 12:04 06/20/24 11:13 06/20/24 11:59 Temperature 99.8 F H Pulse Rate 80 74 74 Respiratory Rate 28 H Blood Pressure 105/47 L 102/47 L Pulse Oximetry 94 95 Oxygen Delivery Mechanical Ventilation Fraction of Inspired Oxygen 40 06/20/24 12:00 06/20/24 12:00 06/20/24 12:00 Temperature Pulse Rate 75 75 75 Respiratory Rate 27 H 27 H Blood Pressure 98/54 L Pulse Oximetry Oxygen Delivery Fraction of Inspired Oxygen 06/20/24 12:00 06/20/24 12:00 06/20/24 13:01 Temperature 99.8 F H Pulse Rate 75 72 72 Respiratory Rate 27 H Blood Pressure 98/54 L Pulse Oximetry 94 Oxygen Delivery Fraction of Inspired Oxygen 06/20/24 12:00 06/20/24 12:00 06/20/24 13:37 Temperature Pulse Rate 73 Respiratory Rate 25 H Blood Pressure Pulse Oximetry Oxygen Delivery Mechanical Ventilation Fraction of Inspired Oxygen 40 40 06/20/24 13:38 06/20/24 14:02 06/20/24 14:00 Temperature Pulse Rate 73 72 73 Respiratory Rate 26 H 26 H Blood Pressure 114/50 L Pulse Oximetry 95 96 Oxygen Delivery Mechanical Ventilation Fraction of Inspired Oxygen 40 06/20/24 14:00 06/20/24 14:40 06/20/24 14:00 Temperature Pulse Rate 73 71 73 Respiratory Rate Blood Pressure 112/50 L 114/50 L Pulse Oximetry Oxygen Delivery Fraction of Inspired Oxygen 06/20/24 17:00 06/20/24 16:00 06/20/24 16:00 Temperature 100.3 F H Pulse Rate 70 70 70 Respiratory Rate 23 H Blood Pressure 108/47 L Pulse Oximetry 92 95 Oxygen Delivery Mechanical Ventilation Fraction of Inspired Oxygen 40 06/20/24 14:00 06/20/24 16:00 06/20/24 14:00 Temperature Pulse Rate 73 70 73 Respiratory Rate 26 H 23 H 26 H Blood Pressure Pulse Oximetry Oxygen Delivery Fraction of Inspired Oxygen 06/20/24 16:00 06/20/24 16:00 06/20/24 17:02 Temperature Pulse Rate 70 70 69 Respiratory Rate 23 H Blood Pressure 108/47 L 109/49 L Pulse Oximetry Oxygen Delivery Fraction of Inspired Oxygen 06/20/24 16:00 06/20/24 16:00 06/20/24 18:00 Temperature Pulse Rate 71 Respiratory Rate Blood Pressure Pulse Oximetry Oxygen Delivery Mechanical Ventilation Fraction of Inspired Oxygen 40 40 06/20/24 18:00 06/20/24 18:00 06/20/24 18:00 Temperature Pulse Rate 71 71 71 Respiratory Rate 22 H 22 H 22 H Blood Pressure 105/46 L Pulse Oximetry 95 Oxygen Delivery Fraction of Inspired Oxygen 06/20/24 18:00 06/20/24 20:00 06/20/24 20:19 Temperature 99.1 F Pulse Rate 71 70 70 Respiratory Rate 23 H Blood Pressure 105/46 L 106/43 L Pulse Oximetry 95 95 Oxygen Delivery Mechanical Ventilation Fraction of Inspired Oxygen 40 06/20/24 20:19 06/20/24 20:38 06/20/24 20:00 Temperature Pulse Rate 70 71 70 Respiratory Rate 22 H 25 H Blood Pressure Pulse Oximetry Oxygen Delivery Fraction of Inspired Oxygen 06/20/24 20:00 06/20/24 20:00 06/20/24 20:00 Temperature Pulse Rate 70 Respiratory Rate 23 H Blood Pressure Pulse Oximetry Oxygen Delivery Mechanical Ventilation Fraction of Inspired Oxygen 40 40 06/20/24 20:00 06/20/24 20:00 06/20/24 21:00 Temperature Pulse Rate 70 70 72 Respiratory Rate 23 H Blood Pressure 106/43 L Pulse Oximetry Oxygen Delivery Fraction of Inspired Oxygen 06/20/24 22:00 06/20/24 22:00 06/20/24 22:00 Temperature Pulse Rate 71 71 71 Respiratory Rate 26 H 25 H Blood Pressure 98/44 L Pulse Oximetry 95 Oxygen Delivery Fraction of Inspired Oxygen 06/20/24 22:00 06/20/24 22:00 06/20/24 23:04 Temperature Pulse Rate 71 71 75 Respiratory Rate 25 H Blood Pressure 98/44 L 115/51 L Pulse Oximetry Oxygen Delivery Fraction of Inspired Oxygen 06/20/24 23:00 06/20/24 23:26 06/21/24 00:00 Temperature Pulse Rate 72 77 73 Respiratory Rate Blood Pressure 116/54 L 110/50 L Pulse Oximetry 94 Oxygen Delivery Mechanical Ventilation Fraction of Inspired Oxygen 40 06/21/24 00:42 06/21/24 00:00 06/21/24 00:00 Temperature Pulse Rate 75 73 73 Respiratory Rate 24 H 24 H Blood Pressure 114/52 L Pulse Oximetry Oxygen Delivery Fraction of Inspired Oxygen 06/21/24 00:00 06/21/24 00:00 06/21/24 00:00 Temperature 98.7 F Pulse Rate 73 Respiratory Rate 24 H Blood Pressure 110/50 L Pulse Oximetry 94 Oxygen Delivery Mechanical Ventilation Fraction of Inspired Oxygen 40 40 06/21/24 00:00 06/21/24 01:04 06/21/24 01:28 Temperature Pulse Rate 73 72 78 Respiratory Rate 30 H Blood Pressure 102/50 L Pulse Oximetry Oxygen Delivery Fraction of Inspired Oxygen 06/21/24 02:00 06/21/24 02:00 06/21/24 02:00 Temperature Pulse Rate 72 72 72 Respiratory Rate 20 20 Blood Pressure 102/52 L Pulse Oximetry 94 Oxygen Delivery Fraction of Inspired Oxygen 06/21/24 02:00 06/21/24 02:13 06/21/24 02:25 Temperature Pulse Rate 72 72 72 Respiratory Rate 20 Blood Pressure 102/52 L Pulse Oximetry 95 Oxygen Delivery Mechanical Ventilation Fraction of Inspired Oxygen 40 06/21/24 02:25 06/21/24 02:34 06/21/24 04:00 Temperature Pulse Rate 72 72 73 Respiratory Rate 20 20 Blood Pressure Pulse Oximetry Oxygen Delivery Fraction of Inspired Oxygen 06/21/24 04:00 06/21/24 04:00 06/21/24 04:00 Temperature 98.7 F Pulse Rate 70 Respiratory Rate 20 Blood Pressure 96/49 L Pulse Oximetry 93 Oxygen Delivery Mechanical Ventilation Fraction of Inspired Oxygen 40 40 06/21/24 04:00 06/21/24 04:00 06/21/24 04:00 Temperature Pulse Rate 70 70 70 Respiratory Rate 20 20 Blood Pressure 96/49 L Pulse Oximetry Oxygen Delivery Fraction of Inspired Oxygen 06/21/24 05:05 06/21/24 06:00 06/21/24 06:00 Temperature Pulse Rate 68 65 65 Respiratory Rate 20 20 Blood Pressure Pulse Oximetry 94 Oxygen Delivery Mechanical Ventilation Fraction of Inspired Oxygen 40 06/21/24 06:34 06/21/24 06:00 06/21/24 06:36 Temperature Pulse Rate 65 65 65 Respiratory Rate 21 H 20 Blood Pressure 87/42 L Pulse Oximetry 92 Oxygen Delivery Fraction of Inspired Oxygen 06/21/24 06:37 06/21/24 06:52 06/21/24 07:38 Temperature Pulse Rate 65 61 60 Respiratory Rate 20 Blood Pressure 87/42 L 87/44 L Pulse Oximetry Oxygen Delivery Fraction of Inspired Oxygen 06/21/24 07:58 06/21/24 08:00 06/21/24 08:11 Temperature Pulse Rate 60 61 63 Respiratory Rate 20 20 Blood Pressure Pulse Oximetry 92 Oxygen Delivery Mechanical Ventilation Fraction of Inspired Oxygen 40 06/21/24 09:31 06/21/24 08:00 06/21/24 08:40 Temperature Pulse Rate 68 60 65 Respiratory Rate 20 20 Blood Pressure Pulse Oximetry Oxygen Delivery Fraction of Inspired Oxygen 06/21/24 08:00 06/21/24 08:40 06/21/24 08:00 Temperature Pulse Rate 60 65 60 Respiratory Rate 20 20 Blood Pressure 100/49 L Pulse Oximetry Oxygen Delivery Fraction of Inspired Oxygen 06/21/24 10:01 06/21/24 10:32 06/21/24 10:36 Temperature Pulse Rate 70 75 70 Respiratory Rate Blood Pressure 114/52 L 116/54 L Pulse Oximetry 93 Oxygen Delivery Mechanical Ventilation Fraction of Inspired Oxygen 40 Intake/Output Intake/Output: Intake & Output 06/18/24 06/19/24 06/20/24 06/21/24 23:59 23:59 23:59 23:59 Intake Total 1332.4 1519.7 1730.3 466.8 Output Total 4150 50 4050 15 Balance -2817.6 1469.7 -2319.7 451.8 Meds/Results Medications: Active Medications Generic Name Dose Route Start Last Admin Trade Name Freq PRN Reason Stop Dose Admin Acetaminophen 650 mg 06/07/24 21:53 06/07/24 22:30 Acetaminophen Elixir 325 Mg/10.15 Ml Udc PO 650 mg Q6H PRN Administration Mild Pain (1-3) or Fever Albuterol/Ipratropium 3 ml 06/05/24 11:15 06/21/24 07:58 Ipratropium 0.5 Mg/Albuterol Sulfate 2.5 Mg Ampul.Neb 3 Ml INHALATION 3 ml Q6HRT JOHN Administration Amiodarone HCl 200 mg 06/02/24 21:00 06/21/24 09:31 Amiodarone Hcl 200 Mg Tablet PO 200 mg Q12HR JOHN Administration Dextrose 12.5 gm 06/05/24 11:46 Dextrose 50% 25 Gm/50 Ml Syringe IV PUSH PRN PRN Hypoglycemia Protocol Epoetin Shayan-epbx 10,000 units 06/18/24 09:00 06/20/24 10:58 Epoetin Shayan-Epbx 10,000 Units/Ml Vial IV PUSH 10,000 units MOWEFR@09 JOHN Administration Glucagon 1 mg 06/05/24 11:46 Glucagon For Inj 1 Mg Vial IM PRN PRN Hypoglycemia Protocol Glucose 15 gm 06/05/24 11:46 Glucose Oral Gel 15 Gm Of Glucse In 37.5 Gm Tube PO PRN PRN Hypoglycemia Protocol Norepinephrine Bitartrate 8 mg in 250 mls @ 3.75 mls/hr 06/05/24 00:35 06/21/24 10:32 Levophed 8 Mg/D5w 250 Ml IV CONT 2 mcg/min .Q24H JOHN 3.75 mls/hr Titration Protocol 2 MCG/MIN Dextrose 1,000 mls @ 100 mls/hr 06/05/24 11:46 Dextrose 5% 1,000 Ml IVPB PRN PRN Hypoglycemia Protocol Albumin Human 50 mls @ 999 mls/hr 06/08/24 09:50 06/12/24 11:39 Albutein IVPB 07/08/24 09:49 Infused Q10M PRN Infusion HYPOTENSION Fentanyl Citrate 2,500 mcg in 250 mls @ 5 mls/hr 06/21/24 09:40 Fentanyl 2,500 Mcg/Ns 250 Ml IV CONT .Q50H JOHN Protocol 50 MCG/HR Midazolam HCl 100 mg in 100 mls @ 1 mls/hr 06/21/24 09:45 Versed 100 Mg/Ns 100 Ml IV CONT .Q72H JOHN Protocol 1 MG/HR Insulin Aspart 3 - 6 units 06/05/24 12:00 06/21/24 06:10 Insulin Aspart (*Bkc) 100 Units/Ml SUB-Q Not Given Q6HR JOHN Protocol Midodrine 10 mg 06/17/24 22:00 06/21/24 05:23 Midodrine Hcl 10 Mg Tablet PO 10 mg Q8H JOHN Administration Multi-Ingred Cream/Lotion/Oil/Oint 1 applic 06/05/24 09:00 06/21/24 09:31 Mineral Oil/White Petrolatum Ointment EACH EYE 1 applic Q12HR JOHN Administration Ondansetron HCl 4 mg 06/11/24 07:47 06/21/24 01:28 Ondansetron Inj 4 Mg/2 Ml Vial IV PUSH 4 mg Q6H PRN Administration Nausea And Vomiting Pantoprazole Sodium 40 mg 06/06/24 09:00 06/21/24 09:31 Pantoprazole Sodium Iv 40 Mg Vial IV PUSH 40 mg Q12HR JOHN Administration Fluticasone/Salmeterol 2 puff 06/03/24 08:00 06/14/24 12:38 Fluticasone/Salmeterol 115-21 Mcg Inhaler 1 Puff INHALATION Not Given Q12HRT JOHN Sodium Chloride 10 ml 06/05/24 06:00 06/21/24 05:24 Central Line Flush IV PUSH 10 ml Q8HR JOHN Administration Sodium Chloride 20 ml 06/05/24 03:12 Central Line Flush IV PUSH PRN PRN after blood draws Umeclidinium [place] 1 puff 06/03/24 08:00 06/14/24 12:38 Umeclidinium [place] 62.5 Mcg Ellipta INHALATION Not Given DAILYRT [facility] Radiology Results: ITS Impressions Renal Ultrasound 06/04/24 15:06 IMPRESSION: 1. Normal kidneys. No hydronephrosis. Abdomen Ultrasound 06/10/24 14:47 IMPRESSION: Fat infiltration. Enlarged left lobe of the liver. Slightly thickened wall of the gallbladder. Trace of ascites. Otherwise, normal Limited ultrasound of the abdomen. Abdomen X-Ray 06/16/24 13:54 IMPRESSION: 1. Nasogastric tube tip in the stomach. 2. Nonobstructive bowel gas pattern. 3. Diffuse lung disease, consistent with pulmonary edema versus pneumonia. 4. Cardiomegaly. Chest/Abdomen/Pelvis CT 06/17/24 10:03 IMPRESSION: 1. Diffuse lung disease, consistent with pulmonary edema versus pneumonia versus acute respiratory distress syndrome. 2. Cardiomegaly. 3. Small volume of ascites. Venous Doppler Study 06/17/24 11:49 IMPRESSION: 1. No deep venous thrombosis. Chest X-Ray 06/21/24 08:56 IMPRESSION: 1. Stable diffuse lung disease, consistent with pulmonary edema versus pneumonia. 2. Cardiomegaly. Labs Labs: Laboratory Results - last 24 hr 06/17/24 06/20/24 06/20/24 16:48 12:41 17:29 WBC RBC Hgb Hct MCV MCH MCHC RDW Plt Count MPV Immature Gran % (Auto) Neut % (Auto) Lymph % (Auto) [place] % (Auto) Eos % (Auto) Baso % (Auto) Lymph # (Auto) [place] # (Auto) Eos # (Auto) Baso # (Auto) Abs Immat Gran (auto) Absolute Neuts (auto) Absolute Nucleated RBC Nucleated RBC % PT INR Puncture Site ABG pH ABG pCO2 ABG pO2 ABG PO2/FiO2 Ratio ABG HCO3 ABG O2 Saturation ABG O2 Content ABG Base Excess A-a Gradient Oxyhemoglobin Carboxyhemoglobin Methemoglobin Reduced Hemoglobin Total Hemoglobin O2 Delivery Device O2 Liters/Min Minute Volume Vent Rate Vent Mode FiO2 Tidal Volume PEEP Peak Inspir Pressure Pressure Support Sodium Potassium Chloride Carbon Dioxide Anion Gap BUN Creatinine Estim Creat Clear Calc Estimated GFR Glucose POC Capillary Glucose 153 H 131 H Calcium Phosphorus Magnesium Total Bilirubin AST ALT Alkaline Phosphatase Total Protein Albumin Glomerular Base Memb Ab <1.0 Tot Complement (CH50) >60 H 06/21/24 06/21/24 06/21/24 00:32 05:09 05:33 WBC 12.4 H RBC 3.46 L Hgb 9.4 L Hct 30.9 L MCV 89.3 MCH 27.2 MCHC 30.4 L RDW 19.4 H Plt Count 228 MPV 9.6 Immature Gran % (Auto) 1.7 H Neut % (Auto) 73.2 H Lymph % (Auto) 11.2 L [place] % (Auto) 12.2 H Eos % (Auto) 1.2 Baso % (Auto) 0.5 Lymph # (Auto) 1.39 [place] # (Auto) 1.5 H Eos # (Auto) 0.2 Baso # (Auto) 0.1 Abs Immat Gran (auto) 0.21 H Absolute Neuts (auto) 9.1 H Absolute Nucleated RBC 0.040 H Nucleated RBC % 0.3 H PT 18.1 H INR 1.5 Puncture Site Right radial ABG pH 7.377 ABG pCO2 46.7 H ABG pO2 73.2 L ABG PO2/FiO2 Ratio 1.83 ABG HCO3 26.8 H ABG O2 Saturation 94.3 L ABG O2 Content 14.1 L ABG Base Excess 1.3 A-a Gradient 158.3 Oxyhemoglobin 93.2 Carboxyhemoglobin 0.4 Methemoglobin 0.2 Reduced Hemoglobin 6.2 H Total Hemoglobin 10.7 L O2 Delivery Device Ventilator O2 Liters/Min Not Reportable Minute Volume Not Reportable Vent Rate 20 Vent Mode Cmv FiO2 40 Tidal Volume 400 PEEP 8 Peak Inspir Pressure Not Reportable Pressure Support Not Reportable Sodium 136 L Potassium 3.9 Chloride 98 Carbon Dioxide 28 Anion Gap 10 BUN 53 H D Creatinine 3.70 H Estim Creat Clear Calc 24 Estimated GFR 13 L Glucose 126 H POC Capillary Glucose 156 H Calcium 9.7 Phosphorus 3.7 Magnesium 2.4 H Total Bilirubin 1.3 AST 151 H ALT 68 H Alkaline Phosphatase 293 H Total Protein 7.0 Albumin 3.2 L Glomerular Base Memb Ab Tot Complement (CH50) Quality VTE Prophylaxis VTE prophylaxis: pharmacologic ordered
--- NOTE | 2024-06-21 11:20 | PCFNICU ---
ICU Rounding Note: Pt current nutrition is Nepro at 40 ml/hr. Last recorded weight is 148.5 kg, down from 152.5 kg on 06/20 Bowel Motility: +BM reported 06/21 Labs Reviewed: Glu 126, GFR 13, BUN 53,Cr 3.7, NA 136, Alb 3.2 Meds Noted:Levophed, Protonix. Skin: WNL Additional Notes: Patient remains on mechanical vent. Tube feedings remain of Nepro at 40 ml/hr with flush 30 ml q 4 hours. Tolerating feedings. Plans for Trach 06/25. G tube and tunneled catheter planned but no date set at this time. Following daily in ICU rounds. Will monitor weight, labs, skin, meds, diet orders every Tuesday and Tuesday.
--- NOTE | 2024-06-21 12:04 | P.PNNP_ITS ---
Progress Note: A&P Assessment and Plan (1) JOVI (acute kidney injury): Code(s): N17.9 - Acute kidney failure, unspecified Status: Acute Assessment and Plan: * no real significant improvement to date * normal creatinine ~ 1 month ago * admitted with a creatinine of 2.1mg/dl with ongoing worsening noted * due to multifactorial ATN: * hemodynamic instability/shock * sepsis * infection (UTI +/- pneumonia) -- although culture negative to date * hypoxia * SLE flare (?) * other? * evaluation to date noted: * renal ultrasound negative for obstruction * urine eosinophils negative * urine electrolytes pre-renal (in spite of evidence of volume overload) * CPK low * moderate proteinuria (~ 600mg) * UA with blood and protein (and negative urine culture) * complements normal (arguing against lupus flare) * has been dialysis dependent since 06/05 * s/p daily dialysis alternating with DUF (except Sundays) to facilitate euvolemia * HD tomorrow and continue Tue/Tue/Tuesday schedule * tunneled HD catheter placement being arranged * follow repeat labs and UOP to assess for potential renal recovery (2) Acute respiratory failure: Code(s): J96.00 - Acute respiratory failure, unspecified whether with hypoxia or hypercapnia Status: Acute Assessment and Plan: * intubated on 06/05 for impending respiratory failure * failed BiPAP therapy * ABG with noted hypercapnea and hypoxia * secondary to pulmonary edema, diffuse bilateral infiltrates and ARDS * on bronchodilators * weaned off steroids * continue dialyis/dry ultrafiltration for fluid removal * noted plans for tracheostomy and G-tube placement (3) Septic shock: Code(s): A41.9 - Sepsis, unspecified organism; R65.21 - Severe sepsis with septic shock Status: Acute Assessment and Plan: * initially thought to be secondary to UTI and pneumonia * remains on low dose levophed therapy to maintain MAP * Echo results noted * continue midodrine * culture data noted: * blood/urine cultures from 06/02 negative * blood culture 06/06 with E. coli and Staph epidermidis * urine culture on 06/06 negative. * blood culture on 06/08 negative * off all antibiotics at this time (since 06/12) * wean levophed as tolerated * follow trend of hemodynamics (4) Pulmonary edema: Code(s): J81.1 - Chronic pulmonary edema Status: Acute Assessment and Plan: * contributing to #2 * secondary to JOVI/ARF but ARDS an issues as well * failed diuretic therapy * HD/DUF for fluid removal * almost 20L negative since admission (5) Afib: Code(s): I48.91 - Unspecified atrial fibrillation Status: Acute Assessment and Plan: * rate control stratgey * on amiodarone and Eliquis (6) Anemia: Code(s): D64.9 - Anemia, unspecified Status: Acute Assessment and Plan: * related to JOVI and acute/critical illness * KIRILL with HD * follow trend of H/H (7) Liver cirrhosis secondary to HOFFMANN: Code(s): K75.81 - Nonalcoholic steatohepatitis (HOFFMANN); K74.60 - Unspecified cirrhosis of liver Status: Acute Assessment and Plan: * known history * normal liver by recent imaging * noted elevations in AST/ALT that have been up and down * fluctuating LFTS thought to be more related to congestion/volume overload * continue to follow (8) Type 2 diabetes mellitus: Code(s): E11.9 - Type 2 diabetes mellitus without complications Status: Acute Assessment and Plan: * follow accu-cheks * glycemic control per rn international/hospitalist Will continue to follow. Subjective Date/time seen: 06/21/24 12:04 Interval history: Follow-up for acute kidney injury/acute renal failure with dialysis dependence. Tolerated dialysis treatment yesterday with 4L fluid removal; remains intubated/sedated and on mechanical ventilation; on/off levophed for blood pressure support; not much urine output noted; no other acute issues/events overnight or earlier this morning; noted plans for tunneled HD catheter placement, tracheostomy, and G-tube placement. Exam Narrative: General: large female intubated/sedated on mechanical ventilator Heart: normal S1 and S2; no rub Lungs: coarse breath sounds; decreased at bases Abdomen: obese but soft, nontender, nondistended, positive bowel sounds Extremities: no cyanosis or clubbing; 1+ edema Skin: no rashes Objective Data Vital Signs Vital Signs: Vital Signs Temp Pulse Resp BP Pulse Ox O2 Del Method FiO2 06/21/24 12:00 72 104/47 L 06/21/24 10:36 70 93 Mechanical Ventilation 40 06/21/24 10:32 75 116/54 L 06/21/24 10:01 70 114/52 L 06/21/24 08:00 60 100/49 L 06/21/24 08:40 65 20 06/21/24 08:00 60 20 06/21/24 08:40 65 20 06/21/24 08:00 60 20 06/21/24 09:31 68 06/21/24 08:11 63 20 06/21/24 08:00 61 92 Mechanical Ventilation 40 06/21/24 07:58 60 20 06/21/24 07:38 60 20 06/21/24 06:52 61 87/44 L 06/21/24 06:37 65 87/42 L 06/21/24 06:36 65 20 87/42 L 92 06/21/24 06:00 65 06/21/24 06:34 65 21 H 06/21/24 06:00 65 20 06/21/24 06:00 65 20 06/21/24 05:05 68 94 Mechanical Ventilation 40 06/21/24 04:00 70 96/49 L 06/21/24 04:00 70 20 06/21/24 04:00 70 20 06/21/24 04:00 98.7 F 70 20 96/49 L 93 06/21/24 04:00 40 06/21/24 04:00 Mechanical Ventilation 40 06/21/24 04:00 73 06/21/24 02:34 72 20 06/21/24 02:25 72 20 06/21/24 02:25 72 95 Mechanical Ventilation 40 06/21/24 02:13 72 102/52 L 06/21/24 02:00 72 20 06/21/24 02:00 72 20 06/21/24 02:00 72 20 102/52 L 94 06/21/24 02:00 72 06/21/24 01:28 78 30 H 06/21/24 01:04 72 102/50 L 06/21/24 00:00 73 06/21/24 00:00 98.7 F 73 24 H 110/50 L 94 06/21/24 00:00 40 06/21/24 00:00 Mechanical Ventilation 40 06/21/24 00:00 73 24 H 06/21/24 00:00 73 24 H 06/21/24 00:42 75 114/52 L 06/21/24 00:00 73 110/50 L 06/20/24 23:26 77 116/54 L 06/20/24 23:00 72 94 Mechanical Ventilation 40 06/20/24 23:04 75 115/51 L 06/20/24 22:00 71 98/44 L 06/20/24 22:00 71 25 H 06/20/24 22:00 71 25 H 06/20/24 22:00 71 06/20/24 22:00 71 26 H 98/44 L 95 06/20/24 21:00 72 06/20/24 20:00 70 106/43 L 06/20/24 20:00 70 23 H 06/20/24 20:00 70 23 H 06/20/24 20:00 Mechanical Ventilation 40 06/20/24 20:00 40 06/20/24 20:00 70 06/20/24 20:38 71 25 H 06/20/24 20:19 70 22 H 06/20/24 20:19 70 95 Mechanical Ventilation 40 06/20/24 20:00 99.1 F 70 23 H 106/43 L 95 06/20/24 18:00 71 105/46 L 06/20/24 18:00 71 22 H 06/20/24 18:00 71 22 H 06/20/24 18:00 71 22 H 105/46 L 95 06/20/24 18:00 71 06/20/24 16:00 Mechanical Ventilation 40 06/20/24 16:00 40 06/20/24 17:02 69 109/49 L 06/20/24 16:00 70 108/47 L 06/20/24 16:00 70 23 H 06/20/24 16:00 70 23 H 06/20/24 16:00 100.3 F H 70 23 H 108/47 L 95 06/20/24 16:00 70 06/20/24 17:00 70 92 Mechanical Ventilation 40 06/20/24 14:40 71 112/50 L Intake/Output Intake/Output: Intake & Output 06/18/24 06/19/24 06/20/24 06/21/24 23:59 23:59 23:59 23:59 Intake Total 1332.4 1519.7 1730.3 479.8 Output Total 4150 50 4050 15 Balance -2817.6 1469.7 -2319.7 464.8 Meds/Results Medications: Active Medications Generic Name Dose Route Start Last Admin Trade Name Freq PRN Reason Stop Dose Admin Acetaminophen 650 mg 06/07/24 21:53 06/07/24 22:30 Acetaminophen Elixir 325 Mg/10.15 Ml Udc PO 650 mg Q6H PRN Administration Mild Pain (1-3) or Fever Albuterol/Ipratropium 3 ml 06/05/24 11:15 06/21/24 14:02 Ipratropium 0.5 Mg/Albuterol Sulfate 2.5 Mg Ampul.Neb 3 Ml INHALATION 3 ml Q6HRT JOHN Administration Amiodarone HCl 200 mg 06/02/24 21:00 06/21/24 09:31 Amiodarone Hcl 200 Mg Tablet PO 200 mg Q12HR JOHN Administration Dextrose 12.5 gm 06/05/24 11:46 Dextrose 50% 25 Gm/50 Ml Syringe IV PUSH PRN PRN Hypoglycemia Protocol Epoetin Shayan-epbx 10,000 units 06/18/24 09:00 06/20/24 10:58 Epoetin Shayan-Epbx 10,000 Units/Ml Vial IV PUSH 10,000 units MOWEFR@09 JOHN Administration Glucagon 1 mg 06/05/24 11:46 Glucagon For Inj 1 Mg Vial IM PRN PRN Hypoglycemia Protocol Glucose 15 gm 06/05/24 11:46 Glucose Oral Gel 15 Gm Of Glucse In 37.5 Gm Tube PO PRN PRN Hypoglycemia Protocol Norepinephrine Bitartrate 8 mg in 250 mls @ 3.75 mls/hr 06/05/24 00:35 06/21/24 14:00 Levophed 8 Mg/D5w 250 Ml IV CONT 2 mcg/min .Q24H JOHN 3.75 mls/hr Titration Protocol 2 MCG/MIN Dextrose 1,000 mls @ 100 mls/hr 06/05/24 11:46 Dextrose 5% 1,000 Ml IVPB PRN PRN Hypoglycemia Protocol Albumin Human 50 mls @ 999 mls/hr 06/08/24 09:50 06/12/24 11:39 Albutein IVPB 07/08/24 09:49 Infused Q10M PRN Infusion HYPOTENSION Fentanyl Citrate 2,500 mcg in 250 mls @ 5 mls/hr 06/21/24 09:40 Fentanyl 2,500 Mcg/Ns 250 Ml IV CONT .Q50H JOHN Protocol 50 MCG/HR Midazolam HCl 100 mg in 100 mls @ 1 mls/hr 06/21/24 09:45 Versed 100 Mg/Ns 100 Ml IV CONT .Q72H JOHN Protocol 1 MG/HR Cefazolin Sodium 100 mls @ 200 mls/hr 06/22/24 13:00 Ancef 3 Gm/D5w 100 Ml IVPB 06/22/24 13:29 ONCE ONE Insulin Aspart 3 - 6 units 06/05/24 12:00 06/21/24 12:16 Insulin Aspart (*Bkc) 100 Units/Ml SUB-Q Not Given Q6HR [facility] Protocol Midodrine 10 mg 06/17/24 22:00 06/21/24 13:56 Midodrine Hcl 10 Mg Tablet PO 10 mg Q8H JOHN Administration Multi-Ingred Cream/Lotion/Oil/Oint 1 applic 06/05/24 09:00 06/21/24 09:31 Mineral Oil/White Petrolatum Ointment EACH EYE 1 applic Q12HR JOHN Administration Ondansetron HCl 4 mg 06/11/24 07:47 06/21/24 01:28 Ondansetron Inj 4 Mg/2 Ml Vial IV PUSH 4 mg Q6H PRN Administration Nausea And Vomiting Pantoprazole Sodium 40 mg 06/06/24 09:00 06/21/24 09:31 Pantoprazole Sodium Iv 40 Mg Vial IV PUSH 40 mg Q12HR JOHN Administration Fluticasone/Salmeterol 2 puff 06/03/24 08:00 06/14/24 12:38 Fluticasone/Salmeterol 115-21 Mcg Inhaler 1 Puff INHALATION Not Given Q12HRT [facility] Sodium Chloride 10 ml 06/05/24 06:00 06/21/24 13:56 Central Line Flush IV PUSH 10 ml Q8HR JOHN Administration Sodium Chloride 20 ml 06/05/24 03:12 Central Line Flush IV PUSH PRN PRN after blood draws Umeclidinium [place] 1 puff 06/03/24 08:00 06/14/24 12:38 Umeclidinium [place] 62.5 Mcg Ellipta INHALATION Not Given DAILYRT [facility] Radiology Results: ITS Impressions Renal Ultrasound 06/04/24 15:06 IMPRESSION: 1. Normal kidneys. No hydronephrosis. Abdomen Ultrasound 06/10/24 14:47 IMPRESSION: Fat infiltration. Enlarged left lobe of the liver. Slightly thickened wall of the gallbladder. Trace of ascites. Otherwise, normal Limited ultrasound of the abdomen. Abdomen X-Ray 06/16/24 13:54 IMPRESSION: 1. Nasogastric tube tip in the stomach. 2. Nonobstructive bowel gas pattern. 3. Diffuse lung disease, consistent with pulmonary edema versus pneumonia. 4. Cardiomegaly. Chest/Abdomen/Pelvis CT 06/17/24 10:03 IMPRESSION: 1. Diffuse lung disease, consistent with pulmonary edema versus pneumonia versus acute respiratory distress syndrome. 2. Cardiomegaly. 3. Small volume of ascites. Venous Doppler Study 06/17/24 11:49 IMPRESSION: 1. No deep venous thrombosis. Chest X-Ray 06/21/24 08:56 IMPRESSION: 1. Stable diffuse lung disease, consistent with pulmonary edema versus pneumonia. 2. Cardiomegaly. Labs Labs: Laboratory Tests 06/21/24 05:33 06/21/24 05:33 Calcium 9.7 Phosphorus 3.7 Magnesium 2.4 H Total Bilirubin 1.3 AST 151 H ALT 68 H Alkaline Phosphatase 293 H Total Protein 7.0 Albumin 3.2 L
[2024-06-21 12:14] LABS: Glucose Point of Care 131 mg/dl (65-105)
--- NOTE | 2024-06-21 13:13 | PM.PNGS ---
Progress Note: A&P Assessment and Plan (1) Acute respiratory failure: Code(s): J96.00 - Acute respiratory failure, unspecified whether with hypoxia or hypercapnia Status: Acute Assessment and Plan: She is unable to be weaned off the ventilator after 2 weeks and I have discussed her case with the Vault Worker, who has spoke with family extensively. They wish to proceed with tracheostomy and gastrostomy tube placement. GI is unable to proceed with a PEG tube due to her morbid obesity and hepatomegaly. The patient's morbid obesity, liver disease, anticoagulation, and other co-morbidities significantly increase her surgical risks. I discussed extensively with patient's sister who is POA. Tunneled dialysis catheter will likely need to be place by exchanging the current catheter over a guidewire. She has limited access options due to her pacemaker on the left side, and accessing subclavian will be extremely high risk and difficult due to her morbid obesity. Will plan to proceed with Tunneled dialysis catheter placement tomorrow. I discussed the procedure, risks, benefits, and alternatives to patient's daughter. She is scheduled to have tracheostomy tube placement on Tuesday. Will plan to perform open gastrostomy tube placement Tuesday after Trach. Discussed that she is higher risk for bleeding and other complications due to her comorbidities. This could even include massive bleeding and . G-tube will need to be cared for with extreme attention to prevent dislodging or other complications. (2) JOVI (acute kidney injury): Code(s): N17.9 - Acute kidney failure, unspecified Status: Acute Assessment and Plan: Still anuric and requiring dialysis (3) Septic shock: Code(s): A41.9 - Sepsis, unspecified organism; R65.21 - Severe sepsis with septic shock Status: Acute (4) Pulmonary edema: Code(s): J81.1 - Chronic pulmonary edema Status: Acute (5) Afib: Code(s): I48.91 - Unspecified atrial fibrillation Status: Acute (6) Anticoagulated by anticoagulation treatment: Code(s): Z79.01 - director long term care (current) use of anticoagulants Status: Acute Assessment and Plan: Eliquis is on hold. (7) SLE (systemic lupus erythematosus): Code(s): M32.9 - Systemic lupus erythematosus, unspecified Status: Acute (8) Liver cirrhosis secondary to HOFFMANN: Code(s): K75.81 - Nonalcoholic steatohepatitis (HOFFMANN); K74.60 - Unspecified cirrhosis of liver Status: Acute Assessment and Plan: Increases risks for surgery. Will order coags tomorrow to re-evaluate. (9) Morbid obesity with BMI of 50.0-59.9, adult: Code(s): E66.01 - Morbid (severe) obesity due to excess calories; Z68.43 - Body mass index [BMI] 50.0-59.9, adult Status: Acute Assessment and Plan: Significantly increases her risks of surgery. Subjective Subjective Date/Time Seen: 06/21/24 13:13 Interval history: Patient seen and examined. Resting in ICU on ventilator. On Levophed at 2 mcg/min. At times has been off all pressors. Exam Resp: Other: Right IJ Tuan dialysis catheter in place. Objective Data Vital Signs Vital Signs: Vital Signs - 24 hr 06/20/24 13:37 06/20/24 13:38 06/20/24 14:02 Temperature Pulse Rate 73 73 72 Respiratory Rate 25 H 26 H Blood Pressure Pulse Oximetry 95 Oxygen Delivery Mechanical Ventilation Fraction of Inspired Oxygen 40 06/20/24 14:00 06/20/24 14:00 06/20/24 14:40 Temperature Pulse Rate 73 73 71 Respiratory Rate 26 H Blood Pressure 114/50 L 112/50 L Pulse Oximetry 96 Oxygen Delivery Fraction of Inspired Oxygen 06/20/24 14:00 06/20/24 17:00 06/20/24 16:00 Temperature Pulse Rate 73 70 70 Respiratory Rate Blood Pressure 114/50 L Pulse Oximetry 92 Oxygen Delivery Mechanical Ventilation Fraction of Inspired Oxygen 40 06/20/24 16:00 06/20/24 14:00 06/20/24 16:00 Temperature 100.3 F H Pulse Rate 70 73 70 Respiratory Rate 23 H 26 H 23 H Blood Pressure 108/47 L Pulse Oximetry 95 Oxygen Delivery Fraction of Inspired Oxygen 06/20/24 14:00 06/20/24 16:00 06/20/24 16:00 Temperature Pulse Rate 73 70 70 Respiratory Rate 26 H 23 H Blood Pressure 108/47 L Pulse Oximetry Oxygen Delivery Fraction of Inspired Oxygen 06/20/24 17:02 06/20/24 16:00 06/20/24 16:00 Temperature Pulse Rate 69 Respiratory Rate Blood Pressure 109/49 L Pulse Oximetry Oxygen Delivery Mechanical Ventilation Fraction of Inspired Oxygen 40 40 06/20/24 18:00 06/20/24 18:00 06/20/24 18:00 Temperature Pulse Rate 71 71 71 Respiratory Rate 22 H 22 H Blood Pressure 105/46 L Pulse Oximetry 95 Oxygen Delivery Fraction of Inspired Oxygen 06/20/24 18:00 06/20/24 18:00 06/20/24 20:00 Temperature 99.1 F Pulse Rate 71 71 70 Respiratory Rate 22 H 23 H Blood Pressure 105/46 L 106/43 L Pulse Oximetry 95 Oxygen Delivery Fraction of Inspired Oxygen 06/20/24 20:19 06/20/24 20:19 06/20/24 20:38 Temperature Pulse Rate 70 70 71 Respiratory Rate 22 H 25 H Blood Pressure Pulse Oximetry 95 Oxygen Delivery Mechanical Ventilation Fraction of Inspired Oxygen 40 06/20/24 20:00 06/20/24 20:00 06/20/24 20:00 Temperature Pulse Rate 70 Respiratory Rate Blood Pressure Pulse Oximetry Oxygen Delivery Mechanical Ventilation Fraction of Inspired Oxygen 40 40 06/20/24 20:00 06/20/24 20:00 06/20/24 20:00 Temperature Pulse Rate 70 70 70 Respiratory Rate 23 H 23 H Blood Pressure 106/43 L Pulse Oximetry Oxygen Delivery Fraction of Inspired Oxygen 06/20/24 21:00 06/20/24 22:00 06/20/24 22:00 Temperature Pulse Rate 72 71 71 Respiratory Rate 26 H Blood Pressure 98/44 L Pulse Oximetry 95 Oxygen Delivery Fraction of Inspired Oxygen 06/20/24 22:00 06/20/24 22:00 06/20/24 22:00 Temperature Pulse Rate 71 71 71 Respiratory Rate 25 H 25 H Blood Pressure 98/44 L Pulse Oximetry Oxygen Delivery Fraction of Inspired Oxygen 06/20/24 23:04 06/20/24 23:00 06/20/24 23:26 Temperature Pulse Rate 75 72 77 Respiratory Rate Blood Pressure 115/51 L 116/54 L Pulse Oximetry 94 Oxygen Delivery Mechanical Ventilation Fraction of Inspired Oxygen 40 06/21/24 00:00 06/21/24 00:42 06/21/24 00:00 Temperature Pulse Rate 73 75 73 Respiratory Rate 24 H Blood Pressure 110/50 L 114/52 L Pulse Oximetry Oxygen Delivery Fraction of Inspired Oxygen 06/21/24 00:00 06/21/24 00:00 06/21/24 00:00 Temperature Pulse Rate 73 Respiratory Rate 24 H Blood Pressure Pulse Oximetry Oxygen Delivery Mechanical Ventilation Fraction of Inspired Oxygen 40 40 06/21/24 00:00 06/21/24 00:00 06/21/24 01:04 Temperature 98.7 F Pulse Rate 73 73 72 Respiratory Rate 24 H Blood Pressure 110/50 L 102/50 L Pulse Oximetry 94 Oxygen Delivery Fraction of Inspired Oxygen 06/21/24 01:28 06/21/24 02:00 06/21/24 02:00 Temperature Pulse Rate 78 72 72 Respiratory Rate 30 H 20 Blood Pressure 102/52 L Pulse Oximetry 94 Oxygen Delivery Fraction of Inspired Oxygen 06/21/24 02:00 06/21/24 02:00 06/21/24 02:13 Temperature Pulse Rate 72 72 72 Respiratory Rate 20 20 Blood Pressure 102/52 L Pulse Oximetry Oxygen Delivery Fraction of Inspired Oxygen 06/21/24 02:25 06/21/24 02:25 06/21/24 02:34 Temperature Pulse Rate 72 72 72 Respiratory Rate 20 20 Blood Pressure Pulse Oximetry 95 Oxygen Delivery Mechanical Ventilation Fraction of Inspired Oxygen 40 06/21/24 04:00 06/21/24 04:00 06/21/24 04:00 Temperature Pulse Rate 73 Respiratory Rate Blood Pressure Pulse Oximetry Oxygen Delivery Mechanical Ventilation Fraction of Inspired Oxygen 40 40 06/21/24 04:00 06/21/24 04:00 06/21/24 04:00 Temperature 98.7 F Pulse Rate 70 70 70 Respiratory Rate 20 20 20 Blood Pressure 96/49 L Pulse Oximetry 93 Oxygen Delivery Fraction of Inspired Oxygen 06/21/24 04:00 06/21/24 05:05 06/21/24 06:00 Temperature Pulse Rate 70 68 65 Respiratory Rate 20 Blood Pressure 96/49 L Pulse Oximetry 94 Oxygen Delivery Mechanical Ventilation Fraction of Inspired Oxygen 40 06/21/24 06:00 06/21/24 06:34 06/21/24 06:00 Temperature Pulse Rate 65 65 65 Respiratory Rate 20 21 H Blood Pressure Pulse Oximetry Oxygen Delivery Fraction of Inspired Oxygen 06/21/24 06:36 06/21/24 06:37 06/21/24 06:52 Temperature Pulse Rate 65 65 61 Respiratory Rate 20 Blood Pressure 87/42 L 87/42 L 87/44 L Pulse Oximetry 92 Oxygen Delivery Fraction of Inspired Oxygen 06/21/24 07:38 06/21/24 07:58 06/21/24 08:00 Temperature Pulse Rate 60 60 61 Respiratory Rate 20 20 Blood Pressure Pulse Oximetry 92 Oxygen Delivery Mechanical Ventilation Fraction of Inspired Oxygen 40 06/21/24 08:11 06/21/24 09:31 06/21/24 08:00 Temperature Pulse Rate 63 68 60 Respiratory Rate 20 20 Blood Pressure Pulse Oximetry Oxygen Delivery Fraction of Inspired Oxygen 06/21/24 08:40 06/21/24 08:00 06/21/24 08:40 Temperature Pulse Rate 65 60 65 Respiratory Rate 20 20 20 Blood Pressure Pulse Oximetry Oxygen Delivery Fraction of Inspired Oxygen 06/21/24 08:00 06/21/24 10:01 06/21/24 10:32 Temperature Pulse Rate 60 70 75 Respiratory Rate Blood Pressure 100/49 L 114/52 L 116/54 L Pulse Oximetry Oxygen Delivery Fraction of Inspired Oxygen 06/21/24 10:36 06/21/24 08:00 06/21/24 12:00 Temperature Pulse Rate 70 61 72 Respiratory Rate Blood Pressure 104/47 L Pulse Oximetry 93 Oxygen Delivery Mechanical Ventilation Fraction of Inspired Oxygen 40 06/21/24 08:00 06/21/24 12:00 Temperature Pulse Rate Respiratory Rate Blood Pressure Pulse Oximetry Oxygen Delivery Mechanical Ventilation Mechanical Ventilation Fraction of Inspired Oxygen 40 40 Intake/Output Intake/Output: Intake & Output 06/18/24 06/19/24 06/20/24 06/21/24 23:59 23:59 23:59 23:59 Intake Total 1332.4 1519.7 1730.3 472.3 Output Total 4150 50 4050 15 Balance -2817.6 1469.7 -2319.7 457.3 Meds/Results Medications: Active Medications Generic Name Dose Route Start Last Admin Trade Name Freq PRN Reason Stop Dose Admin Acetaminophen 650 mg 06/07/24 21:53 06/07/24 22:30 Acetaminophen Elixir 325 Mg/10.15 Ml Udc PO 650 mg Q6H PRN Administration Mild Pain (1-3) or Fever Albuterol/Ipratropium 3 ml 06/05/24 11:15 06/21/24 07:58 Ipratropium 0.5 Mg/Albuterol Sulfate 2.5 Mg Ampul.Neb 3 Ml INHALATION 3 ml Q6HRT JOHN Administration Amiodarone HCl 200 mg 06/02/24 21:00 06/21/24 09:31 Amiodarone Hcl 200 Mg Tablet PO 200 mg Q12HR JOHN Administration Dextrose 12.5 gm 06/05/24 11:46 Dextrose 50% 25 Gm/50 Ml Syringe IV PUSH PRN PRN Hypoglycemia Protocol Epoetin Shayan-epbx 10,000 units 06/18/24 09:00 06/20/24 10:58 Epoetin Sahyan-Epbx 10,000 Units/Ml Vial IV PUSH 10,000 units MOWEFR@09 JOHN Administration Glucagon 1 mg 06/05/24 11:46 Glucagon For Inj 1 Mg Vial IM PRN PRN Hypoglycemia Protocol Glucose 15 gm 06/05/24 11:46 Glucose Oral Gel 15 Gm Of Glucse In 37.5 Gm Tube PO PRN PRN Hypoglycemia Protocol Norepinephrine Bitartrate 8 mg in 250 mls @ 3.75 mls/hr 06/05/24 00:35 06/21/24 12:00 Levophed 8 Mg/D5w 250 Ml IV CONT 2 mcg/min .Q24H JOHN 3.75 mls/hr Titration Protocol 2 MCG/MIN Dextrose 1,000 mls @ 100 mls/hr 06/05/24 11:46 Dextrose 5% 1,000 Ml IVPB PRN PRN Hypoglycemia Protocol Albumin Human 50 mls @ 999 mls/hr 06/08/24 09:50 06/12/24 11:39 Albutein IVPB 07/08/24 09:49 Infused Q10M PRN Infusion HYPOTENSION Fentanyl Citrate 2,500 mcg in 250 mls @ 5 mls/hr 06/21/24 09:40 Fentanyl 2,500 Mcg/Ns 250 Ml IV CONT .Q50H JOHN Protocol 50 MCG/HR Midazolam HCl 100 mg in 100 mls @ 1 mls/hr 06/21/24 09:45 Versed 100 Mg/Ns 100 Ml IV CONT .Q72H JOHN Protocol 1 MG/HR Insulin Aspart 3 - 6 units 06/05/24 12:00 06/21/24 12:16 Insulin Aspart (*Bkc) 100 Units/Ml SUB-Q Not Given Q6HR JOHN Protocol Midodrine 10 mg 06/17/24 22:00 06/21/24 05:23 Midodrine Hcl 10 Mg Tablet PO 10 mg Q8H JOHN Administration Multi-Ingred Cream/Lotion/Oil/Oint 1 applic 06/05/24 09:00 06/21/24 09:31 Mineral Oil/White Petrolatum Ointment EACH EYE 1 applic Q12HR JOHN Administration Ondansetron HCl 4 mg 06/11/24 07:47 06/21/24 01:28 Ondansetron Inj 4 Mg/2 Ml Vial IV PUSH 4 mg Q6H PRN Administration Nausea And Vomiting Pantoprazole Sodium 40 mg 06/06/24 09:00 06/21/24 09:31 Pantoprazole Sodium Iv 40 Mg Vial IV PUSH 40 mg Q12HR JOHN Administration Fluticasone/Salmeterol 2 puff 06/03/24 08:00 06/14/24 12:38 Fluticasone/Salmeterol 115-21 Mcg Inhaler 1 Puff INHALATION Not Given Q12HRT [facility]1983 Sodium Chloride 10 ml 06/05/24 06:00 06/21/24 05:24 Central Line Flush IV PUSH 10 ml Q8HR JOHN Administration Sodium Chloride 20 ml 06/05/24 03:12 Central Line Flush IV PUSH PRN PRN after blood draws Umeclidinium [place] 1 puff 06/03/24 08:00 06/14/24 12:38 Umeclidinium [place] 62.5 Mcg Ellipta INHALATION Not Given DAILYRT [facility], [facility]–1983 Radiology Results: ITS Impressions Renal Ultrasound 06/04/24 15:06 IMPRESSION: 1. Normal kidneys. No hydronephrosis. Abdomen Ultrasound 06/10/24 14:47 IMPRESSION: Fat infiltration. Enlarged left lobe of the liver. Slightly thickened wall of the gallbladder. Trace of ascites. Otherwise, normal Limited ultrasound of the abdomen. Abdomen X-Ray 06/16/24 13:54 IMPRESSION: 1. Nasogastric tube tip in the stomach. 2. Nonobstructive bowel gas pattern. 3. Diffuse lung disease, consistent with pulmonary edema versus pneumonia. 4. Cardiomegaly. Chest/Abdomen/Pelvis CT 06/17/24 10:03 IMPRESSION: 1. Diffuse lung disease, consistent with pulmonary edema versus pneumonia versus acute respiratory distress syndrome. 2. Cardiomegaly. 3. Small volume of ascites. Venous Doppler Study 06/17/24 11:49 IMPRESSION: 1. No deep venous thrombosis. Chest X-Ray 06/21/24 08:56 IMPRESSION: 1. Stable diffuse lung disease, consistent with pulmonary edema versus pneumonia. 2. Cardiomegaly. Labs Labs: Laboratory Results - last 24 hr 06/17/24 06/20/24 06/21/24 16:48 17:29 00:32 WBC RBC Hgb Hct MCV MCH MCHC RDW Plt Count MPV Immature Gran % (Auto) Neut % (Auto) Lymph % (Auto) [place] % (Auto) Eos % (Auto) Baso % (Auto) Lymph # (Auto) [place] # (Auto) Eos # (Auto) Baso # (Auto) Abs Immat Gran (auto) Absolute Neuts (auto) Absolute Nucleated RBC Nucleated RBC % PT INR Puncture Site ABG pH ABG pCO2 ABG pO2 ABG PO2/FiO2 Ratio ABG HCO3 ABG O2 Saturation ABG O2 Content ABG Base Excess A-a Gradient Oxyhemoglobin Carboxyhemoglobin Methemoglobin Reduced Hemoglobin Total Hemoglobin O2 Delivery Device O2 Liters/Min Minute Volume Vent Rate Vent Mode FiO2 Tidal Volume PEEP Peak Inspir Pressure Pressure Support Sodium Potassium Chloride Carbon Dioxide Anion Gap BUN Creatinine Estim Creat Clear Calc Estimated GFR Glucose POC Capillary Glucose 131 H 156 H Calcium Phosphorus Magnesium Total Bilirubin AST ALT Alkaline Phosphatase Total Protein Albumin Glomerular Base Memb Ab <1.0 Tot Complement (CH50) >60 H 06/21/24 06/21/24 06/21/24 05:09 05:33 12:10 WBC 12.4 H RBC 3.46 L Hgb 9.4 L Hct 30.9 L MCV 89.3 MCH 27.2 MCHC 30.4 L RDW 19.4 H Plt Count 228 MPV 9.6 Immature Gran % (Auto) 1.7 H Neut % (Auto) 73.2 H Lymph % (Auto) 11.2 L Tift % (Auto) 12.2 H Eos % (Auto) 1.2 Baso % (Auto) 0.5 Lymph # (Auto) 1.39 [place] # (Auto) 1.5 H Eos # (Auto) 0.2 Baso # (Auto) 0.1 Abs Immat Gran (auto) 0.21 H Absolute Neuts (auto) 9.1 H Absolute Nucleated RBC 0.040 H Nucleated RBC % 0.3 H PT 18.1 H INR 1.5 Puncture Site Right radial ABG pH 7.377 ABG pCO2 46.7 H ABG pO2 73.2 L ABG PO2/FiO2 Ratio 1.83 ABG HCO3 26.8 H ABG O2 Saturation 94.3 L ABG O2 Content 14.1 L ABG Base Excess 1.3 A-a Gradient 158.3 Oxyhemoglobin 93.2 Carboxyhemoglobin 0.4 Methemoglobin 0.2 Reduced Hemoglobin 6.2 H Total Hemoglobin 10.7 L O2 Delivery Device Ventilator O2 Liters/Min Not Reportable Minute Volume Not Reportable Vent Rate 20 Vent Mode Cmv FiO2 40 Tidal Volume 400 PEEP 8 Peak Inspir Pressure Not Reportable Pressure Support Not Reportable Sodium 136 L Potassium 3.9 Chloride 98 Carbon Dioxide 28 Anion Gap 10 BUN 53 H D Creatinine 3.70 H Estim Creat Clear Calc 24 Estimated GFR 13 L Glucose 126 H POC Capillary Glucose 131 H Calcium 9.7 Phosphorus 3.7 Magnesium 2.4 H Total Bilirubin 1.3 AST 151 H ALT 68 H Alkaline Phosphatase 293 H Total Protein 7.0 Albumin 3.2 L Glomerular Base Memb Ab Tot Complement (CH50)
[2024-06-21 14:33] LABS: ANCA Screen NEGATIVE (NEGATIVE)
[2024-06-21 17:14] LABS: Glucose Point of Care 118 mg/dl (65-105)
[2024-06-21] MEDS: FENTANYL 2,500MCG/NS250ML(*CRX 2,500 MCG/250 ML BAG IV CONT (21:24)
[2024-06-21] MEDS: MIDAZOLAM 100MG/NS 100ML(*CRX) 100 MG/100 ML BAG IV CONT (21:25)
[2024-06-22] VITALS (66 sets, daily range): BP systolic 99–126; BP diastolic 43–72; PULSE 62–87; RESP 16–34; TEMP 37–39; O2SAT 89–96
[2024-06-22] MEDS: NOREPINEPHRINE 8 MG/D5W 250 ML 8 MG/250 ML BAG 9.38 MG IV CONT (00:10)
[2024-06-22 00:30] LABS: Glucose Point of Care 152 mg/dl (65-105)
[2024-06-22] MEDS: IPRATROPIUM 0.5 MG/ALBUTEROL SULFATE 2.5 MG AMPUL.NEB 3 ML INHALATION ×4 (02:31→20:48)
[2024-06-22 05:41] LABS: Alveolar/Arterial O2 Gradient 149.6 mmHg; Carboxyhemoglobin 0.5 % THb (0-2.0); Fractional Inspired Oxygen 40 %; HCO3 ABG 27.2 mEq/l (22.0-26.0); Methemoglobin ABG 0.2 %THb (0-1.5); Oxygen Content ABG 15.4 %vol (16.0-22.0); Oxygen Saturation ABG 96.2 % (95.0-100.0); Oxyhemoglobin 95.4 % THb (90.0-100.0); PO2 ABG 83.9 mmHg (80.0-100.0); Reduced Hemoglobin 3.9 %THb (0-5.0); Total Hemoglobin 11.4 g/dL (12.0-18.0); pH ABG 7.399 (7.350-7.450)
[2024-06-22 05:42] LABS: Modified Allen's Test Pass; Site Drawn LEFT RADIAL
[2024-06-22 05:43] LABS: Device VENTILATOR
[2024-06-22 05:44] LABS: Arterial Blood Gas PEEP 8 cmH2O; Arterial Blood Gas Vent Mode CMV; Arterial Blood Gas Ventilator rate 20 /MIN
[2024-06-22 05:45] LABS: Arterial Blood Gas Tidal Volume 400 ml
[2024-06-22 06:34] LABS: Basophils Absolute Auto 0.1 K/mm3 (0.0-0.1); Basophils Percent Auto 0.8 % (0.2-1.2); Eosinophils Absolute Auto 0.2 K/mm3 (0-0.3); Eosinophils Percent Auto 1.6 % (0-4.4); Hematocrit 31.6 % (37.0-47.0); Hemoglobin 9.8 g/dL (12.0-15.0); Immature Granulocyte Absolute 0.21 K/mm3 (0.00-0.031); Immature Granulocyte Percent A 1.8 % (0-0.5); Lymphocytes Absolute Auto 1.45 K/mm3 (0.9-3.2); Lymphocytes Percent Auto 12.6 % (18.3-44.2); Mean Corpuscular Hemoglobin 27.7 pg (26-34); Mean Corpuscular Volume 89.3 fl (80-100); Mean Platelet Volume 9.9 fl (7.4-10.4); Monocytes Absolute Auto 1.4 K/mm3 (0.1-0.6); Neutrophils Absolute Auto 8.2 K/mm3 (1.3-6.7); Neutrophils Percent Auto 71.2 % (45.5-73.1); Nucleated Red Blood Cells Perc 0.2 % (0.0-0.2); Platelet Count Result 248 k/mm3 (150-375); Red Blood Count 3.54 M/mm3 (4.2-5.4); Red Cell Distribution Width 19.6 % (11.5-14.5); White Blood Count 11.5 K/mm3 (4.5-10.0)
[2024-06-22 06:44] LABS: INR 1.4; Prothrombin Time 17.3 Seconds (11.1-14.7)
[2024-06-22] MEDS: MIDODRINE HCL 10 MG TABLET PO ×3 (06:54→21:58)
[2024-06-22] MEDS: CENTRAL LINE FLUSH 10 ML IV PUSH ×2 (06:55→21:58)
[2024-06-22 07:01] LABS: Alanine Aminotransferase 66 U/L (6-35); Albumin Level 3.2 g/dL (3.5-5.1); Alkaline Phosphatase 308 U/L (38-126); Anion Gap 11 mmol/L (4-12); Aspartate Amino Transferase 147 U/L (14-36); Bilirubin,Total 1.4 mg/dL (0.2-1.3); Blood Urea Nitrogen 75 mg/dL (7-17); Calcium 9.8 mg/dL (8.4-10.2); Carbon Dioxide 25 mmol/L (22-30); Chloride 96 mmol/L (98-107); Estimated CRCL calculation 18 ml/min; Estimated Glomerular Filt Rate 9; Glucose 107 mg/dL (65-110); Magnesium 2.6 mg/dL (1.6-2.3); Phosphorus 4.5 mg/dL (2.5-4.5); Potassium 4.4 mmol/L (3.4-5.0); Sodium 132 mmol/L (137-145)
[2024-06-22] MEDS: AMIODARONE HCL 200 MG TABLET PO ×2 (09:19→21:58)
[2024-06-22] MEDS: PANTOPRAZOLE SODIUM IV 40 MG VIAL IV PUSH ×2 (09:20→21:58)
[2024-06-22] MEDS: MINERAL OIL/WHITE PETROLATUM OINTMENT 1 APPLIC EACH EYE ×2 (09:20→21:58)
[2024-06-22] MEDS: EPOETIN ALFA-EPBX 10,000 UNITS/ML VIAL 10000 UNITS IV PUSH (09:28)
--- NOTE | 2024-06-22 09:31 | P.PNNP_ITS ---
Progress Note: A&P Assessment and Plan (1) JOVI (acute kidney injury): Code(s): N17.9 - Acute kidney failure, unspecified Status: Acute Assessment and Plan: * no real significant improvement to date * normal creatinine ~ 1 month ago * admitted with a creatinine of 2.1mg/dl with ongoing worsening noted * due to multifactorial ATN: * hemodynamic instability/shock * sepsis * infection (UTI +/- pneumonia) -- although culture negative to date * hypoxia * other? * evaluation to date noted: * renal ultrasound negative for obstruction * urine eosinophils negative * urine electrolytes pre-renal (in spite of evidence of volume overload) * CPK low * moderate proteinuria (~ 600mg) * UA with blood and protein (and negative urine culture) * has been dialysis dependent since 06/05 * s/p daily dialysis alternating with DUF (except Sundays) to facilitate euvolemia * HD today and continue Tue/Tue/Tuesday schedule * tunneled HD catheter placement being arranged * follow repeat labs and UOP to assess for potential renal recovery (2) Acute respiratory failure: Code(s): J96.00 - Acute respiratory failure, unspecified whether with hypoxia or hypercapnia Status: Acute Assessment and Plan: * intubated on 06/05 for impending respiratory failure * failed BiPAP therapy * ABG with noted hypercapnea and hypoxia * secondary to pulmonary edema, diffuse bilateral infiltrates and ARDS * on bronchodilators * weaned off steroids * continue dialyis/dry ultrafiltration for fluid removal * noted plans for tracheostomy and G-tube placement (3) Septic shock: Code(s): A41.9 - Sepsis, unspecified organism; R65.21 - Severe sepsis with septic shock Status: Acute Assessment and Plan: * initially thought to be secondary to UTI and pneumonia * remains on low dose levophed therapy to maintain MAP * Echo results noted * continue midodrine * culture data noted: * blood/urine cultures from 06/02 negative * blood culture 06/06 with E. coli and Staph epidermidis * urine culture on 06/06 negative. * blood culture on 06/08 negative * off all antibiotics at this time (since 06/12) * wean levophed as tolerated * follow trend of hemodynamics (4) Pulmonary edema: Code(s): J81.1 - Chronic pulmonary edema Status: Acute Assessment and Plan: * contributing to #2 * secondary to JOVI/ARF but ARDS an issues as well * failed diuretic therapy * HD/DUF for fluid removal * almost 20L negative since admission (5) Afib: Code(s): I48.91 - Unspecified atrial fibrillation Status: Acute Assessment and Plan: * rate control stratgey * on amiodarone and Eliquis (6) Anemia: Code(s): D64.9 - Anemia, unspecified Status: Acute Assessment and Plan: * related to JOVI and acute/critical illness * KIRILL with HD * follow trend of H/H (7) Liver cirrhosis secondary to HOFFMANN: Code(s): K75.81 - Nonalcoholic steatohepatitis (HOFFMANN); K74.60 - Unspecified cirrhosis of liver Status: Acute Assessment and Plan: * known history * normal liver by recent imaging * noted elevations in AST/ALT that have been up and down * fluctuating LFTS thought to be more related to congestion/volume overload * continue to follow (8) Type 2 diabetes mellitus: Code(s): E11.9 - Type 2 diabetes mellitus without complications Status: Acute Assessment and Plan: * follow accu-cheks * glycemic control per order administrator/hospitalist Will continue to follow. Subjective Date/time seen: 06/22/24 09:31 Interval history: Follow-up for acute kidney injury/acute renal failure with dialysis dependence. Tolerating dialysis treatment at the time of my visit (seen on HD at 9:20AM); remains intubated/sedated and on mechanical ventilation; noted plans for tunneled HD catheter placement this afternoon; low urine output persists; no other issues/events overnight or earlier this morning. Exam Narrative: General: large female intubated/sedated on mechanical ventilator Heart: normal S1 and S2; no rub Lungs: coarse breath sounds; decreased at bases Abdomen: obese but soft, nontender, nondistended, positive bowel sounds Extremities: no cyanosis or clubbing; trace - 1+ edema Skin: no nodules Objective Data Vital Signs Vital Signs: Vital Signs Temp Pulse Resp BP Pulse Ox O2 Del Method FiO2 06/22/24 09:30 76 112/57 L 06/22/24 08:45 79 113/54 L 06/22/24 08:30 80 115/55 L 06/22/24 07:51 72 117/57 L 06/22/24 07:30 100.9 F H 73 23 H 115/53 L 90 06/22/24 07:40 100.9 F H 06/22/24 06:00 71 06/22/24 06:00 71 21 H 113/52 L 91 06/22/24 06:00 71 21 H 06/22/24 06:00 71 21 H 06/22/24 06:00 71 113/52 L 06/22/24 05:23 71 92 Mechanical Ventilation 40 06/22/24 04:01 99.7 F H 67 20 113/52 L 91 06/22/24 04:00 68 06/22/24 04:00 68 18 06/22/24 04:00 68 18 06/22/24 05:00 71 120/55 L 06/22/24 04:15 70 114/49 L 06/22/24 04:00 68 113/52 L 06/22/24 04:00 40 06/22/24 04:00 Mechanical Ventilation 40 06/22/24 02:00 65 18 06/22/24 02:00 65 18 06/22/24 02:00 65 106/50 L 06/22/24 02:00 65 06/22/24 02:00 65 18 106/50 L 95 06/22/24 02:33 68 21 H 06/22/24 02:27 69 94 Mechanical Ventilation 40 06/22/24 01:15 65 109/50 L 06/22/24 00:00 66 06/22/24 01:00 66 112/54 L 06/22/24 00:00 40 06/22/24 00:00 Mechanical Ventilation 40 06/21/24 22:00 75 06/21/24 20:00 70 06/22/24 00:45 70 120/60 06/22/24 00:25 69 126/66 06/22/24 00:10 99.1 F 66 20 126/56 L 94 06/21/24 22:00 75 20 119/56 L 96 06/22/24 00:00 62 23 H 06/22/24 00:00 62 23 H 06/22/24 00:10 66 126/56 L 06/22/24 00:10 66 126/56 L 06/21/24 23:15 68 104/55 L 06/21/24 21:45 75 23 H 119/56 L 95 06/21/24 20:00 99.4 F 70 23 H 108/51 L 92 06/21/24 20:00 40 06/21/24 20:00 Mechanical Ventilation 40 06/21/24 20:55 Mechanical Ventilation 40 06/21/24 23:25 65 95 Mechanical Ventilation 40 06/21/24 22:32 69 23 H 06/21/24 22:32 69 23 H 06/21/24 22:00 75 18 06/21/24 22:00 75 18 06/21/24 23:00 64 91/50 L 06/21/24 22:45 69 89/49 L 06/21/24 22:00 75 119/56 L 06/21/24 21:29 76 06/21/24 20:00 70 108/51 L 06/21/24 21:25 76 24 H 06/21/24 21:24 75 23 H 06/21/24 20:45 73 22 H 06/21/24 20:39 75 26 H 06/21/24 20:30 76 93 Mechanical Ventilation 40 06/21/24 18:00 68 20 103/51 L 95 06/21/24 16:00 98.5 F 66 20 101/48 L 97 06/21/24 16:00 40 06/21/24 16:00 Mechanical Ventilation 40 06/21/24 18:00 68 103/51 L 06/21/24 16:00 66 101/48 L 06/21/24 18:00 68 06/21/24 16:00 66 06/21/24 14:00 67 06/21/24 12:00 71 06/21/24 14:12 67 20 06/21/24 16:39 68 97 Mechanical Ventilation 40 06/21/24 14:05 68 96 Mechanical Ventilation 40 06/21/24 14:02 68 22 H 06/21/24 14:00 67 20 102/48 L 96 06/21/24 12:00 99.3 F 72 21 H 104/47 L 96 06/21/24 12:00 40 06/21/24 14:00 67 102/48 L 06/21/24 12:00 Mechanical Ventilation 40 06/21/24 12:00 72 104/47 L Intake/Output Intake/Output: Intake & Output 06/19/24 06/20/24 06/21/24 06/22/24 23:59 23:59 23:59 23:59 Intake Total 1519.7 1730.3 1241.3 99.8 Output Total 50 4050 15 180 Balance 1469.7 -2319.7 1226.3 -80.2 Meds/Results Medications: Active Medications Generic Name Dose Route Start Last Admin Trade Name Freq PRN Reason Stop Dose Admin Acetaminophen 650 mg 06/07/24 21:53 06/07/24 22:30 Acetaminophen Elixir 325 Mg/10.15 Ml Udc PO 650 mg Q6H PRN Administration Mild Pain (1-3) or Fever Albuterol/Ipratropium 3 ml 06/05/24 11:15 06/22/24 08:13 Ipratropium 0.5 Mg/Albuterol Sulfate 2.5 Mg Ampul.Neb 3 Ml INHALATION 3 ml Q6HRT JOHN Administration Amiodarone HCl 200 mg 06/02/24 21:00 06/22/24 09:19 Amiodarone Hcl 200 Mg Tablet PO 200 mg Q12HR JOHN Administration Dextrose 12.5 gm 06/05/24 11:46 Dextrose 50% 25 Gm/50 Ml Syringe IV PUSH PRN PRN Hypoglycemia Protocol Epoetin Hsayan-epbx 10,000 units 06/18/24 09:00 06/22/24 09:28 Epoetin Shayan-Epbx 10,000 Units/Ml Vial IV PUSH 10,000 units MOWEFR@09 JOHN Administration Glucagon 1 mg 06/05/24 11:46 Glucagon For Inj 1 Mg Vial IM PRN PRN Hypoglycemia Protocol Glucose 15 gm 06/05/24 11:46 Glucose Oral Gel 15 Gm Of Glucse In 37.5 Gm Tube PO PRN PRN Hypoglycemia Protocol Norepinephrine Bitartrate 8 mg in 250 mls @ 0 mls/hr 06/05/24 00:35 06/22/24 10:00 Levophed 8 Mg/D5w 250 Ml IV CONT 0 mcg/min .Q0M JOHN 0 mls/hr Titration Protocol 0 MCG/MIN Dextrose 1,000 mls @ 100 mls/hr 06/05/24 11:46 Dextrose 5% 1,000 Ml IVPB PRN PRN Hypoglycemia Protocol Albumin Human 50 mls @ 999 mls/hr 06/08/24 09:50 06/12/24 11:39 Albutein IVPB 07/08/24 09:49 Infused Q10M PRN Infusion HYPOTENSION Fentanyl Citrate 2,500 mcg in 250 mls @ 2.5 mls/hr 06/21/24 09:40 06/22/24 10:00 Fentanyl 2,500 Mcg/Ns 250 Ml IV CONT 25 mcg/hr .Q72H JOHN 2.5 mls/hr Titration Protocol 25 MCG/HR Midazolam HCl 100 mg in 100 mls @ 1 mls/hr 06/21/24 09:45 06/22/24 10:00 Versed 100 Mg/Ns 100 Ml IV CONT 1 mg/hr .Q72H JOHN 1 mls/hr Titration Protocol 1 MG/HR Cefazolin Sodium 100 mls @ 200 mls/hr 06/22/24 13:00 Ancef 3 Gm/D5w 100 Ml IVPB 06/22/24 13:29 ONCE ONE Insulin Aspart 3 - 6 units 06/05/24 12:00 06/22/24 06:37 Insulin Aspart (*Bkc) 100 Units/Ml SUB-Q Not Given Q6HR [facility] Protocol Midodrine 10 mg 06/17/24 22:00 06/22/24 06:54 Midodrine Hcl 10 Mg Tablet PO 10 mg Q8H JOHN Administration Multi-Ingred Cream/Lotion/Oil/Oint 1 applic 06/05/24 09:00 06/22/24 09:20 Mineral Oil/White Petrolatum Ointment EACH EYE 1 applic Q12HR JOHN Administration Ondansetron HCl 4 mg 06/11/24 07:47 06/21/24 20:28 Ondansetron Inj 4 Mg/2 Ml Vial IV PUSH 4 mg Q6H PRN Administration Nausea And Vomiting Pantoprazole Sodium 40 mg 06/06/24 09:00 06/22/24 09:20 Pantoprazole Sodium Iv 40 Mg Vial IV PUSH 40 mg Q12HR JOHN Administration Sodium Chloride 10 ml 06/05/24 06:00 06/22/24 06:55 Central Line Flush IV PUSH 10 ml Q8HR JOHN Administration Sodium Chloride 20 ml 06/05/24 03:12 Central Line Flush IV PUSH PRN PRN after blood draws Umeclidinium [place] 1 puff 06/03/24 08:00 06/14/24 12:38 Umeclidinium [place] 62.5 Mcg Ellipta INHALATION Not Given DAILYRT [facility] Radiology Results: ITS Impressions Renal Ultrasound 06/04/24 15:06 IMPRESSION: 1. Normal kidneys. No hydronephrosis. Abdomen Ultrasound 06/10/24 14:47 IMPRESSION: Fat infiltration. Enlarged left lobe of the liver. Slightly thickened wall of the gallbladder. Trace of ascites. Otherwise, normal Limited ultrasound of the abdomen. Abdomen X-Ray 06/16/24 13:54 IMPRESSION: 1. Nasogastric tube tip in the stomach. 2. Nonobstructive bowel gas pattern. 3. Diffuse lung disease, consistent with pulmonary edema versus pneumonia. 4. Cardiomegaly. Chest/Abdomen/Pelvis CT 06/17/24 10:03 IMPRESSION: 1. Diffuse lung disease, consistent with pulmonary edema versus pneumonia versus acute respiratory distress syndrome. 2. Cardiomegaly. 3. Small volume of ascites. Venous Doppler Study 06/17/24 11:49 IMPRESSION: 1. No deep venous thrombosis. Chest X-Ray 06/22/24 06:40 Impression: Moderate pulmonary edema pattern. Support tubes, as above. Labs Labs: Laboratory Tests 06/22/24 06:29 06/22/24 06:28 Calcium 9.8 Phosphorus 4.5 Magnesium 2.6 H Total Bilirubin 1.4 H AST 147 H ALT 66 H Alkaline Phosphatase 308 H Total Protein 7.0 Albumin 3.2 L
--- NOTE | 2024-06-22 10:42 | PCNFU ---
Nutrition Follow-Up Complete: Suboptimal Energy Intake as related to mechanical ventilator as evidenced by NPO. Goal: Meet estimated nutritional needs Patient will continue current goal. Pt current nutrition is NPO. Nutrition recommendation:Nepro at 40 ml/hr Last recorded weight is 151.5 kg. Bowel Motility: +BM reported 06/21 Labs Reviewed: Mg 2.6, GFR 9, BUN 75, Cr 5.0, Na 132, Hct 31.6, Hgb 9.8 Meds Noted: Protonix,Versed, Fentanyl. Skin: WNL Additional Notes: Patient currently NPO for tunneled catheter today. Plans to restart tube feedings of Nepro at 40 ml/hr which is providing 1584 kcal/ 71 gm protein/ 640 ml water. Flush 30 ml q 4 hours. Tube feedings meeting 100% kcal needs at 25 kcal/kg IBW and 100% protein needs at 1.2 -1.4 gm /kg IBW. Plans for Trach and G tube 06/25. Agree with diet orders. Will monitor weight, labs, skin, meds, diet orders every Tuesday and Tuesday.
[2024-06-22 12:12] LABS: Glucose Point of Care 114 mg/dl (65-105)
[2024-06-22] MEDS: ACETAMINOPHEN ELIXIR 325 MG/10.15 ML UDC 650 MG PO ×2 (12:14→20:39)
[2024-06-22] MEDS: HEPARIN SODIUM 1,000 UNITS/ML VIAL 3000 UNITS (12:28)
--- NOTE | 2024-06-22 12:37 | WPDINTPN ---
Progress Note: A&P Assessment and Plan (1) Acute respiratory failure: Code(s): J96.00 - Acute respiratory failure, unspecified whether with hypoxia or hypercapnia Status: Acute Assessment and Plan: Chest x-ray bilateral diffuse pulmonary infiltrates/pulmonary edema. Patient was placed on BiPAP. ABG showed hypercapnic and hypoxemic respiratory failure. Etiology pulmonary edema, pneumonia, ARDS -06/05: patient intubated for impending respiratory failure. Intubation was slightly challenging secondary to body habitus, small mouth, large tongue, redundant tissue in the hypopharynx and anterior vocal cords requiring cricoid pressure and use of glide scope. CT chest 06/17 IMPRESSION: 1. Diffuse lung disease, consistent with pulmonary edema versus pneumonia versus acute respiratory distress syndrome. 2. Cardiomegaly. 3. Small volume of ascites. -currently on CMV mode of ventilation, currently on PEEP down to 8, 40% FiO2, -chest x-ray reviewed and shows improvement although still has diffuse bilateral infiltrates although there has been improvement -continue bronchodilators - fentanyl and Versed infusion for analgosedation, will maintain RASS of -2 -patient has significant volume overload and need additional fluid removed patient is being dialyzed again today. -patient has failed her PSV trials multiple times and is not close to showing any signs of weaning - 06/19: Discussed with patient's sister who is the POA and patient's son, they they requested and agreeable for tracheostomy and PEG tube placement -ENT as scheduled tracheostomy placement for 06/25/2024 -GI cannot place the PEG tube due to patient's body habitus as well as enlarged liver. Surgery will place G-tube most likely on 06/22/2024. At the same time they will be placing tunneled dialysis catheter (2) Septic shock: Code(s): A41.9 - Sepsis, unspecified organism; R65.21 - Severe sepsis with septic shock Status: Acute Assessment and Plan: Septic shock could be related to UTI, pneumonia -patient was hypotensive in the intermediate Unit and was transferred to the ICU which she received fluids, albumin -continue norepinephrine as needed to maintain mean arterial pressure. Currently off -off vancomycin -completed cefepime for a total of 7 days -off stress dose steroids -continue midodrine -06/17: CT chest abdomen and pelvis for ongoing leukocytosis and vasopressor requirement. Will also obtain right lower extremity venous Dopplers since patient has a right lower extremity is erythematous, slightly swollen. 06/05/2024: Echocardiogram Summary 1. Left ventricular chamber dimension is normal. 2. Left ventricular systolic function is normal, estimated at 65-70%. 3. The left ventricular diastolic function is grade I diastolic dysfunction. 4. Right ventricular chamber dimension is moderately enlarged. 5. Right ventricular systolic function is normal. 6. Left atrial chamber dimension is moderately enlarged. 7. Right atrial chamber dimension is moderately enlarged. 8. There is mild to moderate tricuspid valve regurgitation. (3) JOVI (acute kidney injury): Code(s): N17.9 - Acute kidney failure, unspecified Status: Acute Assessment and Plan: Patient with acute kidney injury, with increase creatinine to 4.60 (creatinine on admission on 06/02/2024 was 2.10 and her creatinine on 04/26/2024 was 0.90) -etiology for acute kidney injury could be multifactorial, hypotension, shock, sepsis, UTI/pneumonia, hypoxia,? SLE flare, CHF, -CK levels are within normal limits -urine eosinophils were negative -urine electrolytes showed prerenal picture, patient seems to be volume overloaded -status post given IV fluids and albumin, will hold fluids for now -discussed with small appliance assembly supervisor at [facility], feels that the patient is unstable to be transferred at this time for CRRT, recommended conventional dialysis. -discussed with marketing associate at [facility], agrees to conventional dialysis at this time -06/05: dialysis catheter was placed in the right IJ and exchange for the central line -06/05: Initiated dialysis, with 3000 mL of fluid removal -06/06: Dialysis with 3000 mL in fluid removal -06/07: Dialysis with 3700 mL in fluid removal -06/08: Dialysis with 2900 mL in fluid removal -06/09: Dialysis with 3000 mL in fluid removal -06/10: No dialysis -06/12: Patient was dialyzed and 3.1 P L fluid was removed -06/13 getting dialyzed again today. 4 L removed - 06/14: 3000 mL removed - 06/15: 4000 mL fluid was removed - 06/16: 4000 mL in fluid removal with dialysis - 06/18: 4000 ml in fluid removal - 06/20: 4000 mL in fluid removal - 06/22: Patient is getting dialyzed again today Surgery to place tunneled dialysis catheter on 06/22/2024 (4) Pulmonary edema: Code(s): J81.1 - Chronic pulmonary edema Status: Acute Assessment and Plan: Pulmonary edema likely related to acute kidney injury, ARDS, -did not respond to Bumex -continue fluid removal with dialysis (5) Type 2 diabetes mellitus: Code(s): E11.9 - Type 2 diabetes mellitus without complications Status: Acute Assessment and Plan: SSI and accucheks HbA1C is 5.7 this admission (6) Afib: Code(s): I48.91 - Unspecified atrial fibrillation Status: Acute Assessment and Plan: continue amiodarone -Eliquis currently on hold for procedures - flecainide was stopped (7) SLE (systemic lupus erythematosus): Code(s): M32.9 - Systemic lupus erythematosus, unspecified Status: Acute Assessment and Plan: Off steroids (8) Liver cirrhosis secondary to HOFFMANN: Code(s): K75.81 - Nonalcoholic steatohepatitis (HOFFMANN); K74.60 - Unspecified cirrhosis of liver Status: Acute Assessment and Plan: Continues to have mild elevation in LFTs and bilirubin which is stable 06/10/2024: RUQ ultrasound: Fat infiltration. Enlarged left lobe of the liver. Slightly thickened wall of the gallbladder. Trace of ascites. Otherwise, normal Limited ultrasound of the abdomen. -06/10/2024: Hepatitis panel is negative -continue to monitor (9) GERD (gastroesophageal reflux disease): Code(s): K21.9 - Gastro-esophageal reflux disease without esophagitis Status: Acute Assessment and Plan: Continue Protonix (10) Morbid obesity with BMI of 50.0-59.9, adult: Code(s): E66.01 - Morbid (severe) obesity due to excess calories; Z68.43 - Body mass index [BMI] 50.0-59.9, adult Status: Acute Assessment and Plan: Once extubated she will need lifestyle changes Plan DVT prophylaxis: Eliquis on hold for procedures Stress ulcer prophylaxis: Protonix Nutrition: Tube feeds are on hold Code Status: Full code Critical Care Time Spent: 30 minutes Due to a high probability of clinically significant, life threatening deterioration, the patient required my highest level of preparedness to intervene emergently and I personally spent this critical care time directly and personally managing the patient. This critical care time included obtaining a history; examining the patient; pulse oximetry; ordering and review of studies; arranging urgent treatment with development of a management plan; evaluation of patient's response to treatment; frequent reassessment; and discussions with other providers. It was exclusive of separately billable procedures and treating other patients and teaching time. Please see Assessment and Plan section and the rest of the note for further information on patient assessment and treatment This dictation may have been done utilizing a voice recognition system. Attempts have been made to correct errors. However, there may be uncorrected grammatical, spelling, and recognitions errors present Subjective Date/time seen: 06/22/24 Overnight events reviewed. Low-grade fever Continues to be on mechanical ventilation 8 of PEEP and 40% FiO2 Off Levophed this morning Continues to be sedated with Versed and fentanyl Low urine output Patient is getting dialyzed this morning. Tube feeds on hold for surgical procedure. Other Vitals acceptable Interval history: Reason for consult: Acute respiratory failure, septic shock, acute kidney injury, pulmonary edema 06/05: Intubated Review of Systems Review of Systems: ROS unobtainable: Yes unobtainable due to endotracheal tube, unobtainable due to medical condition and unobtainable due to mental status Exam Narrative: General: Morbidly obese female currently intubated and sedated in no acute distress HEENT:? Pupils equal and reactive bilaterally, sclera is clear, ETT in place Neck:, short and thick neck, Respiratory:? Decreased and coarse breath sounds bilaterally, no wheezing, Cardiac:? S1-S2 is normal, regular rate and rhythm Abdomen:? Morbid obesity, soft, hypoactive bowel sounds tenderness in right upper quadrant Extremities:? Bilateral lower extremity pitting edema improving, wrinkling of skin on the feet are noted, palpable pedal pulses. Right calf is warm, erythematous, nontender Neuro:? Patient is intubated, sedated, opens her eyes, follows simple commands in all extremities and nods to questions Skin:? Erythema in the intertriginous region and under her pannus, skin is dry and warm Psych:? Unable to assess at this time Objective Data Vital Signs Vital Signs: Vital Signs - 24 hr 06/21/24 14:00 06/21/24 14:00 06/21/24 14:02 Temperature Pulse Rate 67 67 68 Respiratory Rate 20 22 H Blood Pressure 102/48 L 102/48 L Pulse Oximetry 96 Oxygen Delivery Fraction of Inspired Oxygen 06/21/24 14:05 06/21/24 16:39 06/21/24 14:12 Temperature Pulse Rate 68 68 67 Respiratory Rate 20 Blood Pressure Pulse Oximetry 96 97 Oxygen Delivery Mechanical Ventilation Mechanical Ventilation Fraction of Inspired Oxygen 40 40 06/21/24 14:00 06/21/24 16:00 06/21/24 18:00 Temperature Pulse Rate 67 66 68 Respiratory Rate Blood Pressure Pulse Oximetry Oxygen Delivery Fraction of Inspired Oxygen 06/21/24 16:00 06/21/24 18:00 06/21/24 16:00 Temperature Pulse Rate 66 68 Respiratory Rate Blood Pressure 101/48 L 103/51 L Pulse Oximetry Oxygen Delivery Mechanical Ventilation Fraction of Inspired Oxygen 40 06/21/24 16:00 06/21/24 16:00 06/21/24 18:00 Temperature 36.9 C Pulse Rate 66 68 Respiratory Rate 20 20 Blood Pressure 101/48 L 103/51 L Pulse Oximetry 97 95 Oxygen Delivery Fraction of Inspired Oxygen 40 06/21/24 20:30 06/21/24 20:39 06/21/24 20:45 Temperature Pulse Rate 76 75 73 Respiratory Rate 26 H 22 H Blood Pressure Pulse Oximetry 93 Oxygen Delivery Mechanical Ventilation Fraction of Inspired Oxygen 40 06/21/24 21:24 06/21/24 21:25 06/21/24 20:00 Temperature Pulse Rate 75 76 70 Respiratory Rate 23 H 24 H Blood Pressure 108/51 L Pulse Oximetry Oxygen Delivery Fraction of Inspired Oxygen 06/21/24 21:29 06/21/24 22:00 06/21/24 22:45 Temperature Pulse Rate 76 75 69 Respiratory Rate Blood Pressure 119/56 L 89/49 L Pulse Oximetry Oxygen Delivery Fraction of Inspired Oxygen 06/21/24 23:00 06/21/24 22:00 06/21/24 22:00 Temperature Pulse Rate 64 75 75 Respiratory Rate 18 18 Blood Pressure 91/50 L Pulse Oximetry Oxygen Delivery Fraction of Inspired Oxygen 06/21/24 22:32 06/21/24 22:32 06/21/24 23:25 Temperature Pulse Rate 69 69 65 Respiratory Rate 23 H 23 H Blood Pressure Pulse Oximetry 95 Oxygen Delivery Mechanical Ventilation Fraction of Inspired Oxygen 40 06/21/24 20:55 06/21/24 20:00 06/21/24 20:00 Temperature Pulse Rate Respiratory Rate Blood Pressure Pulse Oximetry Oxygen Delivery Mechanical Ventilation Mechanical Ventilation Fraction of Inspired Oxygen 40 40 40 06/21/24 20:00 06/21/24 21:45 06/21/24 23:15 Temperature 37.4 C Pulse Rate 70 75 68 Respiratory Rate 23 H 23 H Blood Pressure 108/51 L 119/56 L 104/55 L Pulse Oximetry 92 95 Oxygen Delivery Fraction of Inspired Oxygen 06/22/24 00:10 06/22/24 00:10 06/22/24 00:00 Temperature Pulse Rate 66 66 62 Respiratory Rate 23 H Blood Pressure 126/56 L 126/56 L Pulse Oximetry Oxygen Delivery Fraction of Inspired Oxygen 06/22/24 00:00 06/21/24 22:00 06/22/24 00:10 Temperature 37.3 C Pulse Rate 62 75 66 Respiratory Rate 23 H 20 20 Blood Pressure 119/56 L 126/56 L Pulse Oximetry 96 94 Oxygen Delivery Fraction of Inspired Oxygen 06/22/24 00:25 06/22/24 00:45 06/21/24 20:00 Temperature Pulse Rate 69 70 70 Respiratory Rate Blood Pressure 126/66 120/60 Pulse Oximetry Oxygen Delivery Fraction of Inspired Oxygen 06/21/24 22:00 06/22/24 00:00 06/22/24 00:00 Temperature Pulse Rate 75 Respiratory Rate Blood Pressure Pulse Oximetry Oxygen Delivery Mechanical Ventilation Fraction of Inspired Oxygen 40 40 06/22/24 01:00 06/22/24 00:00 06/22/24 01:15 Temperature Pulse Rate 66 66 65 Respiratory Rate Blood Pressure 112/54 L 109/50 L Pulse Oximetry Oxygen Delivery Fraction of Inspired Oxygen 06/22/24 02:27 06/22/24 02:33 06/22/24 02:00 Temperature Pulse Rate 69 68 65 Respiratory Rate 21 H 18 Blood Pressure 106/50 L Pulse Oximetry 94 95 Oxygen Delivery Mechanical Ventilation Fraction of Inspired Oxygen 40 06/22/24 02:00 06/22/24 02:00 06/22/24 02:00 Temperature Pulse Rate 65 65 65 Respiratory Rate 18 Blood Pressure 106/50 L Pulse Oximetry Oxygen Delivery Fraction of Inspired Oxygen 06/22/24 02:00 06/22/24 04:00 06/22/24 04:00 Temperature Pulse Rate 65 Respiratory Rate 18 Blood Pressure Pulse Oximetry Oxygen Delivery Mechanical Ventilation Fraction of Inspired Oxygen 40 40 06/22/24 04:00 06/22/24 04:15 06/22/24 05:00 Temperature Pulse Rate 68 70 71 Respiratory Rate Blood Pressure 113/52 L 114/49 L 120/55 L Pulse Oximetry Oxygen Delivery Fraction of Inspired Oxygen 06/22/24 04:00 06/22/24 04:00 06/22/24 04:00 Temperature Pulse Rate 68 68 68 Respiratory Rate 18 18 Blood Pressure Pulse Oximetry Oxygen Delivery Fraction of Inspired Oxygen 06/22/24 04:01 06/22/24 05:23 06/22/24 06:00 Temperature 37.6 C H Pulse Rate 67 71 71 Respiratory Rate 20 Blood Pressure 113/52 L 113/52 L Pulse Oximetry 91 92 Oxygen Delivery Mechanical Ventilation Fraction of Inspired Oxygen 40 06/22/24 06:00 06/22/24 06:00 06/22/24 06:00 Temperature Pulse Rate 71 71 71 Respiratory Rate 21 H 21 H 21 H Blood Pressure 113/52 L Pulse Oximetry 91 Oxygen Delivery Fraction of Inspired Oxygen 06/22/24 06:00 06/22/24 07:40 06/22/24 07:30 Temperature 38.3 C H 38.3 C H Pulse Rate 71 73 Respiratory Rate 23 H Blood Pressure 115/53 L Pulse Oximetry 90 Oxygen Delivery Fraction of Inspired Oxygen 06/22/24 07:51 06/22/24 08:30 06/22/24 08:45 Temperature Pulse Rate 72 80 79 Respiratory Rate Blood Pressure 117/57 L 115/55 L 113/54 L Pulse Oximetry Oxygen Delivery Fraction of Inspired Oxygen 06/22/24 09:30 06/22/24 10:45 06/22/24 12:15 Temperature Pulse Rate 76 83 82 Respiratory Rate Blood Pressure 112/57 L 111/59 L 113/60 Pulse Oximetry Oxygen Delivery Fraction of Inspired Oxygen 06/22/24 08:13 06/22/24 08:18 06/22/24 08:22 Temperature Pulse Rate 77 77 77 Respiratory Rate 24 H 24 H Blood Pressure Pulse Oximetry 92 Oxygen Delivery Mechanical Ventilation Fraction of Inspired Oxygen 50 06/22/24 08:00 06/22/24 08:15 06/22/24 08:33 Temperature Pulse Rate 72 78 Respiratory Rate Blood Pressure 114/55 L 105/60 Pulse Oximetry Oxygen Delivery Fraction of Inspired Oxygen 60 06/22/24 08:00 06/22/24 08:00 06/22/24 08:00 Temperature Pulse Rate 81 81 81 Respiratory Rate 26 H 26 H Blood Pressure 115/55 L Pulse Oximetry Oxygen Delivery Fraction of Inspired Oxygen 06/22/24 08:00 06/22/24 08:00 06/22/24 08:34 Temperature Pulse Rate 77 71 Respiratory Rate 26 H Blood Pressure 113/54 L Pulse Oximetry 92 Oxygen Delivery Fraction of Inspired Oxygen 60 06/22/24 09:00 06/22/24 09:15 06/22/24 09:19 Temperature Pulse Rate 75 76 75 Respiratory Rate Blood Pressure 114/57 L 107/55 L Pulse Oximetry Oxygen Delivery Fraction of Inspired Oxygen 06/22/24 09:45 06/22/24 10:00 06/22/24 10:15 Temperature Pulse Rate 84 81 80 Respiratory Rate Blood Pressure 109/53 L 115/55 L 113/56 L Pulse Oximetry Oxygen Delivery Fraction of Inspired Oxygen 06/22/24 10:30 06/22/24 10:00 06/22/24 10:00 Temperature Pulse Rate 82 80 80 Respiratory Rate 26 H Blood Pressure 108/55 L 113/56 L Pulse Oximetry Oxygen Delivery Fraction of Inspired Oxygen 06/22/24 10:00 06/22/24 11:00 06/22/24 11:15 Temperature Pulse Rate 80 81 82 Respiratory Rate 26 H Blood Pressure 113/60 115/60 Pulse Oximetry Oxygen Delivery Fraction of Inspired Oxygen 06/22/24 11:30 06/22/24 11:45 06/22/24 12:00 Temperature Pulse Rate 82 83 82 Respiratory Rate Blood Pressure 115/59 L 114/72 113/61 Pulse Oximetry Oxygen Delivery Fraction of Inspired Oxygen 06/22/24 10:00 06/22/24 10:00 06/22/24 11:43 Temperature Pulse Rate 82 82 80 Respiratory Rate 22 H Blood Pressure 115/55 L Pulse Oximetry 90 92 Oxygen Delivery Mechanical Ventilation Fraction of Inspired Oxygen 60 06/22/24 12:00 06/22/24 12:00 06/22/24 12:14 Temperature 38.4 C H Pulse Rate 82 Respiratory Rate 22 H Blood Pressure Pulse Oximetry 89 L Oxygen Delivery Mechanical Ventilation Fraction of Inspired Oxygen 60 60 06/22/24 12:14 06/22/24 12:00 06/22/24 12:00 Temperature 38.4 C H Pulse Rate 82 82 82 Respiratory Rate 22 H 22 H Blood Pressure 113/61 113/60 Pulse Oximetry 90 Oxygen Delivery Fraction of Inspired Oxygen 06/22/24 12:00 06/22/24 12:00 Temperature Pulse Rate 82 82 Respiratory Rate 22 H Blood Pressure Pulse Oximetry Oxygen Delivery Fraction of Inspired Oxygen Intake/Output Intake/Output: Intake & Output 06/19/24 06/20/24 06/21/24 06/22/24 23:59 23:59 23:59 23:59 Intake Total 1519.7 1730.3 1241.3 106.8 Output Total 50 4050 15 180 Balance 1469.7 -2319.7 1226.3 -73.2 Meds/Results Medications: Active Medications Generic Name Dose Route Start Last Admin Trade Name Freq PRN Reason Stop Dose Admin Acetaminophen 650 mg 06/07/24 21:53 06/22/24 12:14 Acetaminophen Elixir 325 Mg/10.15 Ml Udc PO 650 mg Q6H PRN Administration Mild Pain (1-3) or Fever Albuterol/Ipratropium 3 ml 06/05/24 11:15 06/22/24 08:13 Ipratropium 0.5 Mg/Albuterol Sulfate 2.5 Mg Ampul.Neb 3 Ml INHALATION 3 ml Q6HRT JOHN Administration Amiodarone HCl 200 mg 06/02/24 21:00 06/22/24 09:19 Amiodarone Hcl 200 Mg Tablet PO 200 mg Q12HR JOHN Administration Dextrose 12.5 gm 06/05/24 11:46 Dextrose 50% 25 Gm/50 Ml Syringe IV PUSH PRN PRN Hypoglycemia Protocol Epoetin Shayan-epbx 10,000 units 06/18/24 09:00 06/22/24 09:28 Epoetin Shayan-Epbx 10,000 Units/Ml Vial IV PUSH 10,000 units MOWEFR@09 JOHN Administration Glucagon 1 mg 06/05/24 11:46 Glucagon For Inj 1 Mg Vial IM PRN PRN Hypoglycemia Protocol Glucose 15 gm 06/05/24 11:46 Glucose Oral Gel 15 Gm Of Glucse In 37.5 Gm Tube PO PRN PRN Hypoglycemia Protocol Norepinephrine Bitartrate 8 mg in 250 mls @ 0 mls/hr 06/05/24 00:35 06/22/24 12:00 Levophed 8 Mg/D5w 250 Ml IV CONT 0 mcg/min .Q0M JOHN 0 mls/hr Titration Protocol 0 MCG/MIN Dextrose 1,000 mls @ 100 mls/hr 06/05/24 11:46 Dextrose 5% 1,000 Ml IVPB PRN PRN Hypoglycemia Protocol Albumin Human 50 mls @ 999 mls/hr 06/08/24 09:50 06/12/24 11:39 Albutein IVPB 07/08/24 09:49 Infused Q10M PRN Infusion HYPOTENSION Fentanyl Citrate 2,500 mcg in 250 mls @ 2.5 mls/hr 06/21/24 09:40 06/22/24 12:00 Fentanyl 2,500 Mcg/Ns 250 Ml IV CONT 25 mcg/hr .Q72H JOHN 2.5 mls/hr Titration Protocol 25 MCG/HR Midazolam HCl 100 mg in 100 mls @ 1 mls/hr 06/21/24 09:45 06/22/24 12:00 Versed 100 Mg/Ns 100 Ml IV CONT 1 mg/hr .Q72H JOHN 1 mls/hr Titration Protocol 1 MG/HR Cefazolin Sodium 100 mls @ 200 mls/hr 06/22/24 13:00 Ancef 3 Gm/D5w 100 Ml IVPB 06/22/24 13:29 ONCE ONE Insulin Aspart 3 - 6 units 06/05/24 12:00 06/22/24 06:37 Insulin Aspart (*Bkc) 100 Units/Ml SUB-Q Not Given Q6HR JOHN Protocol Midodrine 10 mg 06/17/24 22:00 06/22/24 06:54 Midodrine Hcl 10 Mg Tablet PO 10 mg Q8H JOHN Administration Multi-Ingred Cream/Lotion/Oil/Oint 1 applic 06/05/24 09:00 06/22/24 09:20 Mineral Oil/White Petrolatum Ointment EACH EYE 1 applic Q12HR JOHN Administration Ondansetron HCl 4 mg 06/11/24 07:47 06/21/24 20:28 Ondansetron Inj 4 Mg/2 Ml Vial IV PUSH 4 mg Q6H PRN Administration Nausea And Vomiting Pantoprazole Sodium 40 mg 06/06/24 09:00 06/22/24 09:20 Pantoprazole Sodium Iv 40 Mg Vial IV PUSH 40 mg Q12HR JOHN Administration Sodium Chloride 10 ml 06/05/24 06:00 06/22/24 06:55 Central Line Flush IV PUSH 10 ml Q8HR JOHN Administration Sodium Chloride 20 ml 10/15/24 03:12 Central Line Flush IV PUSH PRN PRN after blood draws Umeclidinium [place] 1 puff 06/03/24 08:00 06/14/24 12:38 Umeclidinium [place] 62.5 Mcg Ellipta INHALATION Not Given DAILYRT [facility] Radiology Results: ITS Impressions Renal Ultrasound 06/04/24 15:06 IMPRESSION: 1. Normal kidneys. No hydronephrosis. Abdomen Ultrasound 06/10/24 14:47 IMPRESSION: Fat infiltration. Enlarged left lobe of the liver. Slightly thickened wall of the gallbladder. Trace of ascites. Otherwise, normal Limited ultrasound of the abdomen. Abdomen X-Ray 06/16/24 13:54 IMPRESSION: 1. Nasogastric tube tip in the stomach. 2. Nonobstructive bowel gas pattern. 3. Diffuse lung disease, consistent with pulmonary edema versus pneumonia. 4. Cardiomegaly. Chest/Abdomen/Pelvis CT 06/17/24 10:03 IMPRESSION: 1. Diffuse lung disease, consistent with pulmonary edema versus pneumonia versus acute respiratory distress syndrome. 2. Cardiomegaly. 3. Small volume of ascites. Venous Doppler Study 06/17/24 11:49 IMPRESSION: 1. No deep venous thrombosis. Chest X-Ray 06/22/24 06:40 Impression: Moderate pulmonary edema pattern. Support tubes, as above. Labs Labs: Laboratory Results - last 24 hr 06/17/24 06/21/24 06/22/24 16:48 17:12 00:04 WBC RBC Hgb Hct MCV MCH MCHC RDW Plt Count MPV Immature Gran % (Auto) Neut % (Auto) Lymph % (Auto) [place] % (Auto) Eos % (Auto) Baso % (Auto) Lymph # (Auto) [place] # (Auto) Eos # (Auto) Baso # (Auto) Abs Immat Gran (auto) Absolute Neuts (auto) Absolute Nucleated RBC Nucleated RBC % PT INR Puncture Site ABG pH ABG pCO2 ABG pO2 ABG PO2/FiO2 Ratio ABG HCO3 ABG O2 Saturation ABG O2 Content ABG Base Excess A-a Gradient Oxyhemoglobin Carboxyhemoglobin Methemoglobin Reduced Hemoglobin Total Hemoglobin O2 Delivery Device O2 Liters/Min Minute Volume Vent Rate Vent Mode FiO2 Tidal Volume PEEP Peak Inspir Pressure Pressure Support Sodium Potassium Chloride Carbon Dioxide Anion Gap BUN Creatinine Estim Creat Clear Calc Estimated GFR Glucose POC Capillary Glucose 118 H 152 H Calcium Phosphorus Magnesium Total Bilirubin AST ALT Alkaline Phosphatase Total Protein Albumin ANCA Screen Negative Blood Type Antibody Screen 06/22/24 06/22/24 06/22/24 05:12 06:28 06:29 WBC 11.5 H RBC 3.54 L Hgb 9.8 L Hct 31.6 L MCV 89.3 MCH 27.7 MCHC 31.0 L RDW 19.6 H Plt Count 248 MPV 9.9 Immature Gran % (Auto) 1.8 H Neut % (Auto) 71.2 Lymph % (Auto) 12.6 L [place] % (Auto) 12.0 H Eos % (Auto) 1.6 Baso % (Auto) 0.8 Lymph # (Auto) 1.45 [place] # (Auto) 1.4 H Eos # (Auto) 0.2 Baso # (Auto) 0.1 Abs Immat Gran (auto) 0.21 H Absolute Neuts (auto) 8.2 H Absolute Nucleated RBC 0.020 H Nucleated RBC % 0.2 PT 17.3 H INR 1.4 Puncture Site Left radial ABG pH 7.399 ABG pCO2 45.0 ABG pO2 83.9 ABG PO2/FiO2 Ratio 2.10 ABG HCO3 27.2 H ABG O2 Saturation 96.2 ABG O2 Content 15.4 L ABG Base Excess 2.0 A-a Gradient 149.6 Oxyhemoglobin 95.4 Carboxyhemoglobin 0.5 Methemoglobin 0.2 Reduced Hemoglobin 3.9 Total Hemoglobin 11.4 L O2 Delivery Device Ventilator O2 Liters/Min Not Reportable Minute Volume Not Reportable Vent Rate 20 Vent Mode Cmv FiO2 40 Tidal Volume 400 PEEP 8 Peak Inspir Pressure Not Reportable Pressure Support Not Reportable Sodium 132 L Potassium 4.4 Chloride 96 L Carbon Dioxide 25 Anion Gap 11 BUN 75 H D Creatinine 5.00 H Estim Creat Clear Calc 18 Estimated GFR 9 L Glucose 107 POC Capillary Glucose Calcium 9.8 Phosphorus 4.5 Magnesium 2.6 H Total Bilirubin 1.4 H AST 147 H ALT 66 H Alkaline Phosphatase 308 H Total Protein 7.0 Albumin 3.2 L ANCA Screen Blood Type A Positive Antibody Screen Negative 06/22/24 12:10 WBC RBC Hgb Hct MCV MCH MCHC RDW Plt Count MPV Immature Gran % (Auto) Neut % (Auto) Lymph % (Auto) [place] % (Auto) Eos % (Auto) Baso % (Auto) Lymph # (Auto) [place] # (Auto) Eos # (Auto) Baso # (Auto) Abs Immat Gran (auto) Absolute Neuts (auto) Absolute Nucleated RBC Nucleated RBC % PT INR Puncture Site ABG pH ABG pCO2 ABG pO2 ABG PO2/FiO2 Ratio ABG HCO3 ABG O2 Saturation ABG O2 Content ABG Base Excess A-a Gradient Oxyhemoglobin Carboxyhemoglobin Methemoglobin Reduced Hemoglobin Total Hemoglobin O2 Delivery Device O2 Liters/Min Minute Volume Vent Rate Vent Mode FiO2 Tidal Volume PEEP Peak Inspir Pressure Pressure Support Sodium Potassium Chloride Carbon Dioxide Anion Gap BUN Creatinine Estim Creat Clear Calc Estimated GFR Glucose POC Capillary Glucose 114 H Calcium Phosphorus Magnesium Total Bilirubin AST ALT Alkaline Phosphatase Total Protein Albumin ANCA Screen Blood Type Antibody Screen Quality VTE Prophylaxis VTE prophylaxis: pharmacologic ordered
--- NOTE | 2024-06-22 13:08 | WPDHPUPDATE1 ---
History and Physical Update Update Date/Time: 06/22/24 13:08 History and Physical has been reviewed, including an updated exam of the patient. There are NO changes in the patient's condition. Risks, benefits, and alternatives have been discussed and questions answered. Patient agrees to proceed with procedure.
[2024-06-22] MEDS: ceFAZolin 3 GM/D5W 100 ML 100 ML IVPB (13:41)
--- NOTE | 2024-06-22 13:42 | PC.NURSE ---
transfered patient to surgery for placement of tunneled dialysis catheter. at 1340
--- NOTE | 2024-06-22 14:06 | PC.NURSE ---
1400 fentanyl and versed gtts unable to chart against due to patient in OR and I cannot obtain vital signs.
--- NOTE | 2024-06-22 14:14 | P.PNAN_ITS ---
Anes - Initial Pre Proc Eval Procedure: Operation Date: 06/22/24 13:30 Proposed Procedures p Tunneled Dialysis Catheter Placement - Eduardo Albert DO Operation Date: 06/25/24 13:00 Proposed Procedures p Tracheostomy - Biju Kay MD s Open G-Tube Insertion - Eduardo Albert DO Date/Time: 06/22/24 1330 Surgeon: Waqar Reina MD Pre Op Diagnosis: JOVI, UTI, generalized weakness Patient Data Age: 54 Gender: F Height: 1.68 m Weight: 151.5 kg Last Vital Signs Temp 37.6 C 06/22/24 13:14 Pulse 82 06/22/24 13:55 Resp 22 H 06/22/24 13:40 BP 116/57 L 06/22/24 13:55 Pulse Ox 93 06/22/24 13:11 O2 Del Method Mechanical Ventilation 06/22/24 12:00 O2 Flow Rate 50 06/04/24 23:51 FiO2 60 06/22/24 12:00 Allergies Allergy/AdvReac Type Severity Reaction Status Date / Time oxycodone [From Percocet] Allergy Intermediate Hives Verified 06/02/24 11:46 Penicillins Allergy Intermediate Hives Verified 06/08/24 09:49 Home Medications Medication Instructions Recorded Confirmed Type amiodarone 200 mg tablet 200 mg PO BID 11/26/23 06/02/24 History apixaban 5 mg tablet (Eliquis) 5 mg PO BID 11/26/23 06/02/24 History dapagliflozin propanediol 5 mg 5 mg PO DAILY 11/26/23 06/02/24 History tablet (Farxiga) famotidine 20 mg tablet 20 mg PO BID 11/26/23 06/02/24 History flecainide 100 mg tablet 100 mg PO BID 11/26/23 06/02/24 History furosemide 40 mg tablet 40 mg PO BID 11/26/23 06/02/24 History gabapentin 100 mg capsule 200 mg PO TID 11/26/23 06/02/24 History magnesium oxide 400 mg (241.3 mg 400 mg PO BID 11/26/23 06/02/24 History magnesium) tablet metoprolol tartrate 25 mg tablet 25 mg PO BID 11/26/23 06/02/24 History potassium chloride 20 mEq 40 meq PO BID 11/26/23 06/02/24 History tablet,extended release(part/cryst) albuterol sulfate 90 mcg/actuation 2 puff inhalation Q4H PRN 06/02/24 06/02/24 History aerosol inhaler Shortness Of Breath ergocalciferol (vitamin D2) 1,250 50,000 unit PO WEEKLY 06/02/24 06/02/24 History mcg (50,000 unit) capsule fluticasone 250 mcg-salmeterol 50 1 inh inhalation BID 06/02/24 06/02/24 History mcg/dose blistr powdr for inhalation (Advair Diskus) tiotropium bromide 2.5 2 puff inhalation DAILY 06/02/24 06/02/24 History mcg/actuation mist for inhalation (Spiriva Respimat) Laboratory Tests 06/17/24 06/21/24 06/22/24 16:48 17:12 00:04 WBC RBC Hgb Hct MCV MCH MCHC RDW Plt Count MPV Immature Gran % (Auto) Neut % (Auto) Lymph % (Auto) [place] % (Auto) Eos % (Auto) Baso % (Auto) Lymph # (Auto) [place] # (Auto) Eos # (Auto) Baso # (Auto) Abs Immat Gran (auto) Absolute Neuts (auto) Absolute Nucleated RBC Nucleated RBC % PT INR Puncture Site ABG pH ABG pCO2 ABG pO2 ABG PO2/FiO2 Ratio ABG HCO3 ABG O2 Saturation ABG O2 Content ABG Base Excess A-a Gradient Oxyhemoglobin Carboxyhemoglobin Methemoglobin Reduced Hemoglobin Total Hemoglobin O2 Delivery Device O2 Liters/Min Minute Volume Vent Rate Vent Mode FiO2 Tidal Volume PEEP Peak Inspir Pressure Pressure Support Sodium Potassium Chloride Carbon Dioxide Anion Gap BUN Creatinine Estim Creat Clear Calc Estimated GFR Glucose POC Capillary Glucose 118 H mg/dl 152 H mg/dl (65-105) (65-105) Calcium Phosphorus Magnesium Total Bilirubin AST ALT Alkaline Phosphatase Total Protein Albumin ANCA Screen Negative (NEGATIVE) Blood Type Antibody Screen 06/22/24 06/22/24 06/22/24 05:12 06:28 06:29 WBC 11.5 H K/mm3 (4.5-10.0) RBC 3.54 L M/mm3 (4.2-5.4) Hgb 9.8 L g/dL (12.0-15.0) Hct 31.6 L % (37.0-47.0) MCV 89.3 fl (80-100) MCH 27.7 pg (26-34) MCHC 31.0 L g/dl (32-36) RDW 19.6 H % (11.5-14.5) Plt Count 248 k/mm3 (150-375) MPV 9.9 fl (7.4-10.4) Immature Gran % (Auto) 1.8 H % (0-0.5) Neut % (Auto) 71.2 % (45.5-73.1) Lymph % (Auto) 12.6 L % (18.3-44.2) [place] % (Auto) 12.0 H % (2.6-8.5) Eos % (Auto) 1.6 % (0-4.4) Baso % (Auto) 0.8 % (0.2-1.2) Lymph # (Auto) 1.45 K/mm3 (0.9-3.2) [place] # (Auto) 1.4 H K/mm3 (0.1-0.6) Eos # (Auto) 0.2 K/mm3 (0-0.3) Baso # (Auto) 0.1 K/mm3 (0.0-0.1) Abs Immat Gran (auto) 0.21 H K/mm3 (0.00-0.031) Absolute Neuts (auto) 8.2 H K/mm3 (1.3-6.7) Absolute Nucleated RBC 0.020 H K/mm3 (0.0-0.012) Nucleated RBC % 0.2 % (0.0-0.2) PT 17.3 H Seconds (11.1-14.7) INR 1.4 Puncture Site Left radial ABG pH 7.399 (7.350-7.450) ABG pCO2 45.0 mmHg (35.0-45.0) ABG pO2 83.9 mmHg (80.0-100.0) ABG PO2/FiO2 Ratio 2.10 % ABG HCO3 27.2 H mEq/l (22.0-26.0) ABG O2 Saturation 96.2 % (95.0-100.0) ABG O2 Content 15.4 L %vol (16.0-22.0) ABG Base Excess 2.0 mEq/l (+/-2.0) A-a Gradient 149.6 mmHg Oxyhemoglobin 95.4 % THb (90.0-100.0) Carboxyhemoglobin 0.5 % THb (0-2.0) Methemoglobin 0.2 %THb (0-1.5) Reduced Hemoglobin 3.9 %THb (0-5.0) Total Hemoglobin 11.4 L g/dL (12.0-18.0) O2 Delivery Device Ventilator O2 Liters/Min Not Reportable Minute Volume Not Reportable Vent Rate 20 /MIN Vent Mode Cmv FiO2 40 % Tidal Volume 400 ml PEEP 8 cmH2O Peak Inspir Pressure Not Reportable Pressure Support Not Reportable Sodium 132 L mmol/L (137-145) Potassium 4.4 mmol/L (3.4-5.0) Chloride 96 L mmol/L (98-107) Carbon Dioxide 25 mmol/L (22-30) Anion Gap 11 mmol/L (4-12) BUN 75 H D mg/dL (7-17) Creatinine 5.00 H mg/dL (0.7-1.0) Estim Creat Clear Calc 18 ml/min Estimated GFR 9 L (59 - ) Glucose 107 mg/dL (65-110) POC Capillary Glucose Calcium 9.8 mg/dL (8.4-10.2) Phosphorus 4.5 mg/dL (2.5-4.5) Magnesium 2.6 H mg/dL (1.6-2.3) Total Bilirubin 1.4 H mg/dL (0.2-1.3) AST 147 H U/L (14-36) ALT 66 H U/L (6-35) Alkaline Phosphatase 308 H U/L (38-126) Total Protein 7.0 g/dL (6.3-8.2) Albumin 3.2 L g/dL (3.5-5.1) ANCA Screen Blood Type A Positive Antibody Screen Negative 06/22/24 12:10 WBC RBC Hgb Hct MCV MCH MCHC RDW Plt Count MPV Immature Gran % (Auto) Neut % (Auto) Lymph % (Auto) [place] % (Auto) Eos % (Auto) Baso % (Auto) Lymph # (Auto) [place] # (Auto) Eos # (Auto) Baso # (Auto) Abs Immat Gran (auto) Absolute Neuts (auto) Absolute Nucleated RBC Nucleated RBC % PT INR Puncture Site ABG pH ABG pCO2 ABG pO2 ABG PO2/FiO2 Ratio ABG HCO3 ABG O2 Saturation ABG O2 Content ABG Base Excess A-a Gradient Oxyhemoglobin Carboxyhemoglobin Methemoglobin Reduced Hemoglobin Total Hemoglobin O2 Delivery Device O2 Liters/Min Minute Volume Vent Rate Vent Mode FiO2 Tidal Volume PEEP Peak Inspir Pressure Pressure Support Sodium Potassium Chloride Carbon Dioxide Anion Gap BUN Creatinine Estim Creat Clear Calc Estimated GFR Glucose POC Capillary Glucose 114 H mg/dl (65-105) Calcium Phosphorus Magnesium Total Bilirubin AST ALT Alkaline Phosphatase Total Protein Albumin ANCA Screen Blood Type Antibody Screen Patient hx anesthesia problems: none Family hx anesthesia problems: none Results Review: All pre-operative results and documents have been reviewed as part of the pre- operative evaluation. [facility] Past Medical History Medical History Asthma Per patient report but PFTs within our system demonstrated restrictive lung disease not obstructive Atrial fibrillation Chronic respiratory failure with hypoxia and hypercapnia On 3 L nasal cannula home. Intolerant BiPAP. Depression Essential hypertension GERD (gastroesophageal reflux disease) Hyperparathyroidism Liver cirrhosis secondary to [place] Migraines Morbid obesity with body mass index (BMI) greater than or equal to 50 Obstructive sleep apnea Intolerant of BiPAP Restrictive lung disease Restrictive lung disease noted on PFTs within the old record system. No mention of obstructive disease on that pulmonary function testing SLE (systemic lupus erythematosus) Reportedly with mostly skinaffects Surgical History Surgical History History of appendectomy Status post cardiac pacemaker procedure Complicated by perforation of the myocardium requiring subsequent open heart surgery performed at [facility] Family History Family History Mother Hypertension Heart attack Social History Social History Smoking packs per day: 0.5 Smoking cigarettes per day: 10.0 Years smoked: 20 Smoking pack-years: 10.00 Smoking status: Former smoker Tobacco type: cigarettes Second hand tobacco smoke exposure: Yes ( smokes in home) Smoking end date: 08/22/07 Additional smoking assessment comments: 2 years since last smoked. Alcohol intake: never Substance use: never Substance use type: does not use Do You Feel Safe in your Home?: Yes Lack of Transportation: No Lack of Food: Never True Current Housing: I Have Housing Concerned About Future Housing: No Difficulty Paying Gas/Electric Bills: No Difficulty Paying for Meds: No Currently Unemployed: No Education: High School Diploma/GED Difficulty w/ Childcare or Family Care: No Spiritual care concerns: No Anes - Eval Final PreProcedure Day of Procedure 06/22/24 14:14 Patient weight: super morbidly obese Heart: regular rate and rhythm (pacemaker) Lungs: rhonchi Airway: other (intubated in ICU 7 mm @ 25 cm PSV) Neurological: other (sedated with versed/fent. will awake and follow commands) Last oral intake: >/= 8 hours ASA classification: IV Emergent: no Anesthetic plan: proceed Anesthesia type and monitoring: general GIVS and ETT and standard monitoring Results Review: All pre-operative results and documents have been reviewed as part of the pre- operative evaluation. Informed Consent: The patient's anesthetic plan and its attendant risks and benefits were discussed with the patient/family/POA. Questions were solicited and answers provided to the satisfaction of the patient/family/POA.
[2024-06-22] MEDS: LIDO 1%/EPINEPHRINE 1:100,000 50 ML VIAL INFILTRATE (14:16)
[2024-06-22] MEDS: HEPARIN SODIUM 5,000 UNITS/ML VIAL 5000 UNITS SUB-Q (14:17)
[2024-06-22] MEDS: HEPARIN SODIUM, PORCINE 10,000 UNITS/10 ML VIAL 6 UNITS IV PUSH (14:20)
--- NOTE | 2024-06-22 14:31 | P.OP_ITS ---
Procedure Note - Detailed Date of Procedure 06/22/24 Pre-op Diagnosis Acute renal failure, acute respiratory failure Post-op Diagnosis Same Procedure Performed Placement of tunneled dialysis catheter with removal and exchanging of prior te mporary hemodialysis catheter over a guidewire with fluoroscopic guidance Surgeon Eduardo Albert, DO Anesthesia General and Local (1% lidocaine with epinephrine) Indications This is a 54-year-old woman who is currently intubated in the ICU with acute respiratory failure and acute kidney failure. She has been an uric and requiring hemodialysis. She has a temporary hemodialysis catheter that was placed shortly after admission and has been in place for 2 weeks. She will need continued hemodialysis and is in need of tunneled dialysis catheter placement. She has poor access in other locations due to her having a pacemaker on the left side and morbid obesity. The safest way to continue dialysis access was going to be to exchange the temporary dialysis catheter over guidewire for a tunneled hemodialysis catheter. Findings Tunneled dialysis catheter placement was performed. Fluoroscopy was used to guide advancement of the guidewire and removal of the prior temporary hemodialysis catheter in the right internal jugular vein. The dilator sheath were then also advanced over the guidewire under fluoroscopic guidance. A 28 cm Duraflow2 dual lumen dialysis catheter was then tunneled from the right anterior chest up to the base of the right neck. The final fluoroscopic images demonstrated the catheter tip in the distal SVC and no kinks along its path. Description of Procedure Procedure as well as risks, benefits, and alternatives were discussed with the patient's family. Written consent was obtained and placed in chart prior to procedure. Patient was brought down to surgical suite. She was transferred from her ICU bed to the operating table. General endotracheal anesthesia was administered by the anesthesia department. The right neck and chest was then prepped and draped in sterile fashion using chlorhexidine prep and Betadine spray around the current temporary dialysis catheter. Time-out was done to confirm patient and procedure. Fluoroscopic guidance was used to estimate the location on the right anterior chest for catheter placement. 1% lidocaine with epinephrine was then infiltrated at this location along with the tract to tunnel up to base of the right neck. A small incision was made on the right anterior chest using a 15 blade scalpel. A 0.035 in guidewire was then advanced through the lumen of the current temporary dialysis catheter and then the catheter was gently withdrawn while leaving the guidewire in place. Pressure was applied at the insertion site to prevent bleeding at the neck incision. The tunneler was then used to tunnel the catheter from the chest incision up to the neck incision. The dilator and sheath were then advanced over the guidewire under fluoroscopic guidance and then the guidewire and dilator were removed. The catheter tubing was then advanced through the sheath under fluoroscopic guidance. Once the catheter tubing was advanced all the way to the end of the sheath, the she the was then snapped and carefully peeled away. The catheter tubing was then released under the neck incision. Fluoroscopy was then used to ensure that the catheter tip was in the distal SVC and there were no kinks along its path. The 2 lumens of the catheter were then aspirated and flushed with heparinized saline. Both lumens functioned with ease. The 2 lumens were then hep-locked with the final heparin flush. The skin of the neck incision was then closed using 4-0 Monocryl subcuticular suture. Another suture was placed at the chest incision. The catheter was then secured to the skin using 3-0 nylon simple interrupted sutures. Exofin glue was then applied at the neck incision followed by 4 x 4 gauze and Tegaderm dressing at the chest incision. The patient was then transferred to the ICU remaining intubated. Implants DuraFlow2 28cm Dialysis catheter Estimated Blood Loss 10 Urine Output 25 Complications No immediate complications Condition Critical Disposition ICU [facility] Surgery - Charge Forward: Surgery Billing
[2024-06-22 18:04] LABS: Glucose Point of Care 100 mg/dl (65-105)
[2024-06-22] MEDS: ONDANSETRON INJ 4 MG/2 ML VIAL IV PUSH (20:35)
[2024-06-23] VITALS (31 sets, daily range): BP systolic 111–139; BP diastolic 57–77; PULSE 73–89; RESP 19–31; TEMP 37.9–38.3; O2SAT 93–96
[2024-06-23 00:18] LABS: Glucose Point of Care 121 mg/dl (65-105)
[2024-06-23] MEDS: IPRATROPIUM 0.5 MG/ALBUTEROL SULFATE 2.5 MG AMPUL.NEB 3 ML INHALATION ×4 (01:53→21:05)
[2024-06-23 04:02] LABS: Basophils Absolute Auto 0.1 K/mm3 (0.0-0.1); Basophils Percent Auto 0.8 % (0.2-1.2); Eosinophils Absolute Auto 0.2 K/mm3 (0-0.3); Eosinophils Percent Auto 1.2 % (0-4.4); Hematocrit 33.1 % (37.0-47.0); Hemoglobin 10.2 g/dL (12.0-15.0); Immature Granulocyte Absolute 0.33 K/mm3 (0.00-0.031); Immature Granulocyte Percent A 2.2 % (0-0.5); Lymphocytes Absolute Auto 2.32 K/mm3 (0.9-3.2); Lymphocytes Percent Auto 15.1 % (18.3-44.2); Mean Corpuscular HGB Conc 30.8 g/dl (32-36); Mean Corpuscular Hemoglobin 27.3 pg (26-34); Mean Corpuscular Volume 88.5 fl (80-100); Mean Platelet Volume 10.2 fl (7.4-10.4); Monocytes Percent Auto 13.2 % (2.6-8.5); Neutrophils Absolute Auto 10.4 K/mm3 (1.3-6.7); Neutrophils Percent Auto 67.5 % (45.5-73.1); Nucleated Red Blood Cells Perc 0.3 % (0.0-0.2); Platelet Count Result 225 k/mm3 (150-375); Red Blood Count 3.74 M/mm3 (4.2-5.4); Red Cell Distribution Width 19.6 % (11.5-14.5); White Blood Count 15.3 K/mm3 (4.5-10.0)
[2024-06-23 04:12] LABS: INR 1.4; Prothrombin Time 17.1 Seconds (11.1-14.7)
[2024-06-23 04:29] LABS: Alanine Aminotransferase 65 U/L (6-35); Albumin Level 3.4 g/dL (3.5-5.1); Alkaline Phosphatase 327 U/L (38-126); Anion Gap 12 mmol/L (4-12); Aspartate Amino Transferase 202 U/L (14-36); Bilirubin,Total 1.5 mg/dL (0.2-1.3); Blood Urea Nitrogen 52 mg/dL (7-17); Carbon Dioxide 27 mmol/L (22-30); Chloride 97 mmol/L (98-107); Estimated CRCL calculation 23 ml/min; Estimated Glomerular Filt Rate 12; Glucose 141 mg/dL (65-110); Magnesium 2.3 mg/dL (1.6-2.3); Phosphorus 3.6 mg/dL (2.5-4.5); Sodium 136 mmol/L (137-145)
[2024-06-23 05:36] LABS: Alveolar/Arterial O2 Gradient 254.4 mmHg; Base Excess ABG 2.4 mEq/l (+/-2.0); Device VENTILATOR; Fractional Inspired Oxygen 55 %; HCO3 ABG 26.8 mEq/l (22.0-26.0); Modified Allen's Test Pass; Oxygen Content ABG 15.2 %vol (16.0-22.0); Oxygen Saturation ABG 97.3 % (95.0-100.0); Oxyhemoglobin 96.9 % THb (90.0-100.0); PCO2 ABG 40.9 mmHg (35.0-45.0); PO2 ABG 92.3 mmHg (80.0-100.0); PO2 FiO2 Ratio Arterial Blood 1.68 %; Site Drawn RIGHT RADIAL; Total Hemoglobin 11.1 g/dL (12.0-18.0); pH ABG 7.435 (7.350-7.450)
[2024-06-23 05:37] LABS: Arterial Blood Gas PEEP 8 cmH2O; Arterial Blood Gas Tidal Volume 400 ml; Arterial Blood Gas Vent Mode CMV; Arterial Blood Gas Ventilator rate 20 /MIN
[2024-06-23] MEDS: MIDODRINE HCL 10 MG TABLET PO ×3 (06:06→21:44)
[2024-06-23] MEDS: PANTOPRAZOLE SODIUM IV 40 MG VIAL IV PUSH ×2 (09:34→21:44)
[2024-06-23] MEDS: MEROPENEM 500 MG/NS 100 ML 500 MG/100 ML BAG 200 MG IVPB ×2 (09:34→20:22)
[2024-06-23] MEDS: AMIODARONE HCL 200 MG TABLET PO ×2 (09:34→21:44)
[2024-06-23] MEDS: MINERAL OIL/WHITE PETROLATUM OINTMENT 1 APPLIC EACH EYE ×2 (09:34→21:44)
[2024-06-23] MEDS: VANCOMYCIN 2,000 MG/NS 500 ML 2,000 MG/500 ML BAG 250 MG IVPB (09:53)
[2024-06-23 10:46] LABS: Procalcitonin 4.9 ng/mL
[2024-06-23 11:42] LABS: MRSA (PCR) DETECTED (NOT DETECTE)
[2024-06-23 12:16] LABS: Glucose Point of Care 170 mg/dl (65-105)
--- NOTE | 2024-06-23 12:18 | WPDINTPN ---
Progress Note: A&P Assessment and Plan (1) Acute respiratory failure: Code(s): J96.00 - Acute respiratory failure, unspecified whether with hypoxia or hypercapnia Status: Acute Assessment and Plan: Chest x-ray bilateral diffuse pulmonary infiltrates/pulmonary edema. Patient was placed on BiPAP. ABG showed hypercapnic and hypoxemic respiratory failure. Etiology pulmonary edema, pneumonia, ARDS -06/05: patient intubated for impending respiratory failure. Intubation was slightly challenging secondary to body habitus, small mouth, large tongue, redundant tissue in the hypopharynx and anterior vocal cords requiring cricoid pressure and use of glide scope. CT chest 06/17 IMPRESSION: 1. Diffuse lung disease, consistent with pulmonary edema versus pneumonia versus acute respiratory distress syndrome. 2. Cardiomegaly. 3. Small volume of ascites. -currently on CMV mode of ventilation, currently on PEEP down to 8, 55% FiO2, -chest x-ray reviewed and shows improvement although still has diffuse bilateral infiltrates although there has been improvement -continue bronchodilators - fentanyl and Versed infusion for analgosedation, will maintain RASS of -2 -patient has significant volume overload and need additional fluid removed patient is being dialyzed again today. -patient has failed her PSV trials multiple times and is not close to showing any signs of weaning - 06/19: Discussed with patient's sister who is the POA and patient's son, they they requested and agreeable for tracheostomy and PEG tube placement -ENT as scheduled tracheostomy placement for 06/25/2024 -GI cannot place the PEG tube due to patient's body habitus as well as enlarged liver. Surgery will place G-tube most likely on 06/22/2024. (2) Septic shock: Code(s): A41.9 - Sepsis, unspecified organism; R65.21 - Severe sepsis with septic shock Status: Acute Assessment and Plan: Septic shock could be related to UTI, pneumonia -patient was hypotensive in the intermediate Unit and was transferred to the ICU which she received fluids, albumin -continue norepinephrine as needed to maintain mean arterial pressure. Currently off -off vancomycin -completed cefepime for a total of 7 days -off stress dose steroids -continue midodrine -06/17: CT chest abdomen and pelvis for ongoing leukocytosis and vasopressor requirement. Will also obtain right lower extremity venous Dopplers since patient has a right lower extremity is erythematous, slightly swollen. 06/05/2024: Echocardiogram Summary 1. Left ventricular chamber dimension is normal. 2. Left ventricular systolic function is normal, estimated at 65-70%. 3. The left ventricular diastolic function is grade I diastolic dysfunction. 4. Right ventricular chamber dimension is moderately enlarged. 5. Right ventricular systolic function is normal. 6. Left atrial chamber dimension is moderately enlarged. 7. Right atrial chamber dimension is moderately enlarged. 8. There is mild to moderate tricuspid valve regurgitation. 11/ overnight patient had a increase in WBC count and high-grade fevers Increased FiO2 requirement and increased endotracheal suction Procalcitonin level 4.9 Lai catheter change, UA and urine culture ordered Sputum and blood culture ordered Empiric vancomycin and meropenem Check lipase (3) JOVI (acute kidney injury): Code(s): N17.9 - Acute kidney failure, unspecified Status: Acute Assessment and Plan: Patient with acute kidney injury, with increase creatinine to 4.60 (creatinine on admission on 06/02/2024 was 2.10 and her creatinine on 04/26/2024 was 0.90) -etiology for acute kidney injury could be multifactorial, hypotension, shock, sepsis, UTI/pneumonia, hypoxia,? SLE flare, CHF, -CK levels are within normal limits -urine eosinophils were negative -urine electrolytes showed prerenal picture, patient seems to be volume overloaded -status post given IV fluids and albumin, will hold fluids for now -discussed with marketing pr intern at [facility], feels that the patient is unstable to be transferred at this time for CRRT, recommended conventional dialysis. -discussed with medical technologist chief at [facility], agrees to conventional dialysis at this time -06/05: dialysis catheter was placed in the right IJ and exchange for the central line -06/05: Initiated dialysis, with 3000 mL of fluid removal -06/06: Dialysis with 3000 mL in fluid removal -06/07: Dialysis with 3700 mL in fluid removal -06/08: Dialysis with 2900 mL in fluid removal -06/09: Dialysis with 3000 mL in fluid removal -06/10: No dialysis -06/12: Patient was dialyzed and 3.1 P L fluid was removed -06/13 getting dialyzed again today. 4 L removed - 06/14: 3000 mL removed - 06/15: 4000 mL fluid was removed - 10/26: 4000 mL in fluid removal with dialysis - 06/18: 4000 ml in fluid removal - 06/20: 4000 mL in fluid removal - 06/22: Patient is getting dialyzed again today 4 L fluid removed Underwent tunneled dialysis catheter placement on 06/22/2024 (4) Pulmonary edema: Code(s): J81.1 - Chronic pulmonary edema Status: Acute Assessment and Plan: Pulmonary edema likely related to acute kidney injury, ARDS, -did not respond to Bumex -continue fluid removal with dialysis (5) Type 2 diabetes mellitus: Code(s): E11.9 - Type 2 diabetes mellitus without complications Status: Acute Assessment and Plan: SSI and accucheks HbA1C is 5.7 this admission (6) Afib: Code(s): I48.91 - Unspecified atrial fibrillation Status: Acute Assessment and Plan: continue amiodarone -Eliquis currently on hold for procedures - flecainide was stopped (7) SLE (systemic lupus erythematosus): Code(s): M32.9 - Systemic lupus erythematosus, unspecified Status: Acute Assessment and Plan: Off steroids (8) Liver cirrhosis secondary to HOFFMANN: Code(s): K75.81 - Nonalcoholic steatohepatitis (HOFFMANN); K74.60 - Unspecified cirrhosis of liver Status: Acute Assessment and Plan: Continues to have mild elevation in LFTs and bilirubin which is stable 06/10/2024: RUQ ultrasound: Fat infiltration. Enlarged left lobe of the liver. Slightly thickened wall of the gallbladder. Trace of ascites. Otherwise, normal Limited ultrasound of the abdomen. -06/10/2024: Hepatitis panel is negative -continue to monitor (9) GERD (gastroesophageal reflux disease): Code(s): K21.9 - Gastro-esophageal reflux disease without esophagitis Status: Acute Assessment and Plan: Continue Protonix (10) Morbid obesity with BMI of 50.0-59.9, adult: Code(s): E66.01 - Morbid (severe) obesity due to excess calories; Z68.43 - Body mass index [BMI] 50.0-59.9, adult Status: Acute Assessment and Plan: Once extubated she will need lifestyle changes Plan DVT prophylaxis: Eliquis on hold for procedures. Will start Lovenox for DVT prophylaxis Stress ulcer prophylaxis: Protonix Nutrition: Tube feeds resumed Code Status: Full code Critical Care Time Spent: 30 minutes Due to a high probability of clinically significant, life threatening deterioration, the patient required my highest level of preparedness to intervene emergently and I personally spent this critical care time directly and personally managing the patient. This critical care time included obtaining a history; examining the patient; pulse oximetry; ordering and review of studies; arranging urgent treatment with development of a management plan; evaluation of patient's response to treatment; frequent reassessment; and discussions with other providers. It was exclusive of separately billable procedures and treating other patients and teaching time. Please see Assessment and Plan section and the rest of the note for further information on patient assessment and treatment This dictation may have been done utilizing a voice recognition system. Attempts have been made to correct errors. However, there may be uncorrected grammatical, spelling, and recognitions errors present Subjective Date/time seen: 06/23/24 Overnight events reviewed. febrile overnight Continues to be on mechanical ventilation increased FiO2 requirement to 55% peep of 8 Patient had tunneled dialysis catheter placement yesterday Continues to be sedated with fentanyl Versed Other Vitals acceptable Interval history: Reason for consult: Acute respiratory failure, septic shock, acute kidney injury, pulmonary edema 06/05: Intubated and hemodialysis initiated 06/22: Tunneled dialysis catheter placed Review of Systems Review of Systems: ROS unobtainable: Yes unobtainable due to endotracheal tube, unobtainable due to medical condition and unobtainable due to mental status Exam Narrative: General: Morbidly obese female currently intubated and sedated in no acute distress HEENT:? Pupils equal and reactive bilaterally, sclera is clear, ETT in place Neck:, short and thick neck, Respiratory:? Decreased and coarse breath sounds bilaterally, no wheezing, Cardiac:? S1-S2 is normal, regular rate and rhythm Abdomen:? Morbid obesity, soft, hypoactive bowel sounds tenderness in right upper quadrant Extremities:? Bilateral lower extremity pitting edema improving, wrinkling of skin on the feet are noted, palpable pedal pulses. Right calf is warm, erythematous, nontender Neuro:? Patient is intubated, sedated, opens her eyes, follows simple commands in all extremities and nods to questions Skin:? Erythema in the intertriginous region and under her pannus, skin is dry and warm Psych:? Unable to assess at this time Objective Data Vital Signs Vital Signs: Vital Signs - 24 hr 06/22/24 12:30 06/22/24 12:34 06/22/24 12:45 Temperature 38.4 C H Pulse Rate 81 81 80 Respiratory Rate 21 H Blood Pressure 110/60 114/61 110/57 L Pulse Oximetry 90 Oxygen Delivery Fraction of Inspired Oxygen 06/22/24 13:11 06/22/24 13:40 06/22/24 13:40 Temperature 37.6 C Pulse Rate 78 82 82 Respiratory Rate 25 H 22 H 22 H Blood Pressure 113/58 L Pulse Oximetry 93 Oxygen Delivery Fraction of Inspired Oxygen 06/22/24 13:55 06/22/24 13:14 06/22/24 14:42 Temperature 37.6 C Pulse Rate 82 82 Respiratory Rate 28 H Blood Pressure 116/57 L Pulse Oximetry Oxygen Delivery Fraction of Inspired Oxygen 06/22/24 14:45 06/22/24 15:08 06/22/24 15:08 Temperature Pulse Rate 80 78 78 Respiratory Rate 16 34 H Blood Pressure Pulse Oximetry 94 Oxygen Delivery Mechanical Ventilation Fraction of Inspired Oxygen 60 06/22/24 15:49 06/22/24 16:00 06/22/24 16:00 Temperature Pulse Rate 77 77 77 Respiratory Rate 28 H 27 H 27 H Blood Pressure Pulse Oximetry 95 Oxygen Delivery Mechanical Ventilation Fraction of Inspired Oxygen 60 06/22/24 16:00 06/22/24 16:00 06/22/24 16:00 Temperature 37.2 C Pulse Rate 75 74 Respiratory Rate 32 H Blood Pressure 99/48 L Pulse Oximetry 95 Oxygen Delivery Fraction of Inspired Oxygen 60 06/22/24 18:00 06/22/24 18:00 06/22/24 18:00 Temperature Pulse Rate 77 78 79 Respiratory Rate 33 H 30 H Blood Pressure 103/43 L Pulse Oximetry 96 Oxygen Delivery Fraction of Inspired Oxygen 06/22/24 18:00 06/22/24 17:35 06/22/24 17:39 Temperature Pulse Rate 77 77 Respiratory Rate 32 H Blood Pressure Pulse Oximetry 95 95 Oxygen Delivery Mechanical Ventilation Mechanical Ventilation Fraction of Inspired Oxygen 60 60 06/22/24 20:00 06/22/24 20:00 06/22/24 20:00 Temperature 39.0 C H Pulse Rate 83 83 83 Respiratory Rate 33 H 33 H 33 H Blood Pressure 114/49 L Pulse Oximetry 95 Oxygen Delivery Fraction of Inspired Oxygen 06/22/24 20:39 06/22/24 20:49 06/22/24 20:10 Temperature 39.0 C H Pulse Rate 82 82 Respiratory Rate 24 H Blood Pressure Pulse Oximetry 96 Oxygen Delivery Mechanical Ventilation Fraction of Inspired Oxygen 60 06/22/24 20:56 06/22/24 20:00 06/22/24 20:00 Temperature Pulse Rate 82 Respiratory Rate 28 H Blood Pressure Pulse Oximetry Oxygen Delivery Mechanical Ventilation Fraction of Inspired Oxygen 60 60 06/22/24 21:58 06/22/24 21:39 06/22/24 22:00 Temperature 38.8 C H Pulse Rate 86 87 Respiratory Rate 29 H Blood Pressure Pulse Oximetry Oxygen Delivery Fraction of Inspired Oxygen 06/23/24 00:00 06/22/24 22:00 06/23/24 00:00 Temperature Pulse Rate 80 87 80 Respiratory Rate 20 29 H 20 Blood Pressure Pulse Oximetry Oxygen Delivery Fraction of Inspired Oxygen 06/22/24 23:20 06/22/24 20:00 06/22/24 22:00 Temperature Pulse Rate 79 79 84 Respiratory Rate 30 H Blood Pressure 116/51 L Pulse Oximetry 96 96 Oxygen Delivery Mechanical Ventilation Fraction of Inspired Oxygen 60 06/23/24 00:00 06/22/24 22:00 06/23/24 00:00 Temperature 38.1 C H Pulse Rate 87 85 Respiratory Rate 22 H Blood Pressure 120/70 Pulse Oximetry 96 Oxygen Delivery Mechanical Ventilation Fraction of Inspired Oxygen 60 06/23/24 00:00 06/23/24 00:00 06/23/24 01:54 Temperature Pulse Rate 83 84 Respiratory Rate 29 H Blood Pressure Pulse Oximetry Oxygen Delivery Fraction of Inspired Oxygen 60 06/23/24 01:54 06/23/24 01:59 06/23/24 02:00 Temperature Pulse Rate 84 83 83 Respiratory Rate 27 H 20 Blood Pressure Pulse Oximetry 95 Oxygen Delivery Mechanical Ventilation Fraction of Inspired Oxygen 55 06/23/24 02:00 06/23/24 02:00 06/23/24 02:00 Temperature 37.9 C H Pulse Rate 83 83 83 Respiratory Rate 20 20 Blood Pressure 111/70 Pulse Oximetry 95 Oxygen Delivery Fraction of Inspired Oxygen 06/23/24 05:15 06/23/24 04:00 06/23/24 04:00 Temperature Pulse Rate 82 Respiratory Rate Blood Pressure Pulse Oximetry 94 Oxygen Delivery Mechanical Ventilation Mechanical Ventilation Fraction of Inspired Oxygen 55 55 55 06/23/24 04:00 06/23/24 04:00 06/23/24 06:00 Temperature Pulse Rate 83 83 81 Respiratory Rate 29 H 29 H 20 Blood Pressure Pulse Oximetry Oxygen Delivery Fraction of Inspired Oxygen 06/23/24 06:00 06/23/24 04:00 06/23/24 06:00 Temperature 38.1 C H 38.1 C H Pulse Rate 81 83 81 Respiratory Rate 20 31 H 20 Blood Pressure 124/63 115/60 Pulse Oximetry 95 95 Oxygen Delivery Fraction of Inspired Oxygen 06/23/24 04:00 06/23/24 06:00 06/23/24 07:56 Temperature Pulse Rate 87 80 85 Respiratory Rate 20 Blood Pressure Pulse Oximetry Oxygen Delivery Fraction of Inspired Oxygen 06/23/24 07:57 06/23/24 08:10 06/23/24 08:10 Temperature Pulse Rate 80 89 89 Respiratory Rate 20 22 H Blood Pressure Pulse Oximetry 94 Oxygen Delivery Mechanical Ventilation Fraction of Inspired Oxygen 55 06/23/24 08:20 06/23/24 08:34 06/23/24 09:34 Temperature Pulse Rate 83 88 87 Respiratory Rate 25 H Blood Pressure Pulse Oximetry 95 Oxygen Delivery Mechanical Ventilation Fraction of Inspired Oxygen 55 06/23/24 10:17 06/23/24 10:00 06/23/24 10:00 Temperature Pulse Rate 86 87 87 Respiratory Rate 24 H 24 H Blood Pressure Pulse Oximetry 95 Oxygen Delivery Mechanical Ventilation Fraction of Inspired Oxygen 55 06/23/24 08:00 06/23/24 08:00 06/23/24 12:00 Temperature 38.1 C H Pulse Rate 86 88 82 Respiratory Rate 24 H 20 Blood Pressure 139/77 Pulse Oximetry 95 Oxygen Delivery Fraction of Inspired Oxygen 06/23/24 12:00 06/23/24 10:00 06/23/24 12:00 Temperature 38.2 C H 38.3 C H Pulse Rate 82 87 82 Respiratory Rate 20 24 H 20 Blood Pressure 118/59 L 122/65 Pulse Oximetry 94 95 Oxygen Delivery Fraction of Inspired Oxygen 06/23/24 10:00 06/23/24 12:00 Temperature Pulse Rate 87 82 Respiratory Rate Blood Pressure Pulse Oximetry Oxygen Delivery Fraction of Inspired Oxygen Intake/Output Intake/Output: Intake & Output 06/20/24 06/21/24 06/22/24 06/23/24 23:59 23:59 23:59 23:59 Intake Total 1730.3 1241.3 236.8 632.1 Output Total 4050 15 4229 20 Balance -2319.7 1226.3 -3992.2 612.1 Meds/Results Medications: Active Medications Generic Name Dose Route Start Last Admin Trade Name Freq PRN Reason Stop Dose Admin Acetaminophen 650 mg 06/07/24 21:53 06/22/24 20:39 Acetaminophen Elixir 325 Mg/10.15 Ml Udc PO 650 mg Q6H PRN Administration Mild Pain (1-3) or Fever Albuterol/Ipratropium 3 ml 06/05/24 11:15 06/23/24 08:10 Ipratropium 0.5 Mg/Albuterol Sulfate 2.5 Mg Ampul.Neb 3 Ml INHALATION 3 ml Q6HRT JOHN Administration Amiodarone HCl 200 mg 06/02/24 21:00 06/23/24 09:34 Amiodarone Hcl 200 Mg Tablet PO 200 mg Q12HR JOHN Administration Dextrose 12.5 gm 06/05/24 11:46 Dextrose 50% 25 Gm/50 Ml Syringe IV PUSH PRN PRN Hypoglycemia Protocol Epoetin Shayan-epbx 10,000 units 06/18/24 09:00 06/22/24 09:28 Epoetin Shayan-Epbx 10,000 Units/Ml Vial IV PUSH 10,000 units MOWEFR@09 JOHN Administration Glucagon 1 mg 06/05/24 11:46 Glucagon For Inj 1 Mg Vial IM PRN PRN Hypoglycemia Protocol Glucose 15 gm 06/05/24 11:46 Glucose Oral Gel 15 Gm Of Glucse In 37.5 Gm Tube PO PRN PRN Hypoglycemia Protocol Dextrose 1,000 mls @ 100 mls/hr 06/05/24 11:46 Dextrose 5% 1,000 Ml IVPB PRN PRN Hypoglycemia Protocol Albumin Human 50 mls @ 999 mls/hr 06/08/24 09:50 06/12/24 11:39 Albutein IVPB 07/08/24 09:49 Infused Q10M PRN Infusion HYPOTENSION Fentanyl Citrate 2,500 mcg in 250 mls @ 2.5 mls/hr 06/21/24 09:40 06/23/24 12:00 Fentanyl 2,500 Mcg/Ns 250 Ml IV CONT 25 mcg/hr .Q72H JOHN 2.5 mls/hr Titration Protocol 25 MCG/HR Midazolam HCl 100 mg in 100 mls @ 1 mls/hr 06/21/24 09:45 06/23/24 12:00 Versed 100 Mg/Ns 100 Ml IV CONT 1 mg/hr .Q72H JOHN 1 mls/hr Titration Protocol 1 MG/HR Cefazolin Sodium 100 mls @ 200 mls/hr 06/25/24 12:00 Ancef 3 Gm/D5w 100 Ml IVPB 06/25/24 12:29 ONCE ONE Meropenem 500 mg in 100 mls @ 200 mls/hr 06/23/24 09:00 06/23/24 11:00 IVPB Infused Q12HR JOHN Infusion Insulin Aspart 3 - 6 units 06/05/24 12:00 06/23/24 05:45 Insulin Aspart (*Bkc) 100 Units/Ml SUB-Q Not Given Q6HR [facility] Protocol Midodrine 10 mg 06/17/24 22:00 06/23/24 06:06 Midodrine Hcl 10 Mg Tablet PO 10 mg Q8H JOHN Administration Multi-Ingred Cream/Lotion/Oil/Oint 1 applic 06/05/24 09:00 06/23/24 09:34 Mineral Oil/White Petrolatum Ointment EACH EYE 1 applic Q12HR JOHN Administration Ondansetron HCl 4 mg 06/11/24 07:47 06/22/24 20:35 Ondansetron Inj 4 Mg/2 Ml Vial IV PUSH 4 mg Q6H PRN Administration Nausea And Vomiting Pantoprazole Sodium 40 mg 06/06/24 09:00 06/23/24 09:34 Pantoprazole Sodium Iv 40 Mg Vial IV PUSH 40 mg Q12HR JOHN Administration Umeclidinium [place] 1 puff 06/03/24 08:00 06/14/24 12:38 Umeclidinium [place] 62.5 Mcg Ellipta INHALATION Not Given DAILYRT JOHN Vancomycin HCl 1 each 06/23/24 09:17 Vancomycin For Hemodialysis IVPB PRN PRN Vancomycin Protocol Radiology Results: ITS Impressions Renal Ultrasound 06/04/24 15:06 IMPRESSION: 1. Normal kidneys. No hydronephrosis. Abdomen Ultrasound 06/10/24 14:47 IMPRESSION: Fat infiltration. Enlarged left lobe of the liver. Slightly thickened wall of the gallbladder. Trace of ascites. Otherwise, normal Limited ultrasound of the abdomen. Abdomen X-Ray 06/16/24 13:54 IMPRESSION: 1. Nasogastric tube tip in the stomach. 2. Nonobstructive bowel gas pattern. 3. Diffuse lung disease, consistent with pulmonary edema versus pneumonia. 4. Cardiomegaly. Chest/Abdomen/Pelvis CT 06/17/24 10:03 IMPRESSION: 1. Diffuse lung disease, consistent with pulmonary edema versus pneumonia versus acute respiratory distress syndrome. 2. Cardiomegaly. 3. Small volume of ascites. Venous Doppler Study 06/17/24 11:49 IMPRESSION: 1. No deep venous thrombosis. Central Venous Line 06/22/24 14:36 IMPRESSION: 1. Right internal jugular central venous catheter tip at the caudal superior vena cava. Chest X-Ray 06/23/24 07:45 IMPRESSION: 1. Lines and tubes in expected positions. 2. No significant change in small lung volumes with mild diffuse opacities and atelectasis, pulmonary edema, pneumonia or some combination thereof. 3. Cardiomegaly. Labs Labs: Laboratory Results - last 24 hr 06/22/24 06/23/24 06/23/24 18:02 00:15 03:46 WBC 15.3 H RBC 3.74 L Hgb 10.2 L Hct 33.1 L MCV 88.5 MCH 27.3 MCHC 30.8 L RDW 19.6 H Plt Count 225 MPV 10.2 Immature Gran % (Auto) 2.2 H Neut % (Auto) 67.5 Lymph % (Auto) 15.1 L Pickett % (Auto) 13.2 H Eos % (Auto) 1.2 Baso % (Auto) 0.8 Lymph # (Auto) 2.32 Pickett # (Auto) 2.0 H Eos # (Auto) 0.2 Baso # (Auto) 0.1 Abs Immat Gran (auto) 0.33 H Absolute Neuts (auto) 10.4 H Absolute Nucleated RBC 0.050 H Nucleated RBC % 0.3 H PT 17.1 H INR 1.4 Puncture Site ABG pH ABG pCO2 ABG pO2 ABG PO2/FiO2 Ratio ABG HCO3 ABG O2 Saturation ABG O2 Content ABG Base Excess A-a Gradient Oxyhemoglobin Total Hemoglobin O2 Delivery Device O2 Liters/Min Minute Volume Vent Rate Vent Mode FiO2 Tidal Volume PEEP Peak Inspir Pressure Pressure Support Sodium 136 L Potassium 4.0 Chloride 97 L Carbon Dioxide 27 Anion Gap 12 BUN 52 H D Creatinine 3.90 H Estim Creat Clear Calc 23 Estimated GFR 12 L Glucose 141 H POC Capillary Glucose 100 121 H Calcium 10.0 Phosphorus 3.6 Magnesium 2.3 Total Bilirubin 1.5 H AST 202 H ALT 65 H Alkaline Phosphatase 327 H Total Protein 7.0 Albumin 3.4 L Procalcitonin 4.9 Nasal MRSA (PCR) 06/23/24 06/23/24 06/23/24 05:27 09:57 12:12 WBC RBC Hgb Hct MCV MCH MCHC RDW Plt Count MPV Immature Gran % (Auto) Neut % (Auto) Lymph % (Auto) Pickett % (Auto) Eos % (Auto) Baso % (Auto) Lymph # (Auto) Pickett # (Auto) Eos # (Auto) Baso # (Auto) Abs Immat Gran (auto) Absolute Neuts (auto) Absolute Nucleated RBC Nucleated RBC % PT INR Puncture Site Right radial ABG pH 7.435 ABG pCO2 40.9 ABG pO2 92.3 ABG PO2/FiO2 Ratio 1.68 ABG HCO3 26.8 H ABG O2 Saturation 97.3 ABG O2 Content 15.2 L ABG Base Excess 2.4 A-a Gradient 254.4 Oxyhemoglobin 96.9 Total Hemoglobin 11.1 L O2 Delivery Device Ventilator O2 Liters/Min Not Reportable Minute Volume Not Reportable Vent Rate 20 Vent Mode Cmv FiO2 55 Tidal Volume 400 PEEP 8 Peak Inspir Pressure Not Reportable Pressure Support Not Reportable Sodium Potassium Chloride Carbon Dioxide Anion Gap BUN Creatinine Estim Creat Clear Calc Estimated GFR Glucose POC Capillary Glucose 170 H Calcium Phosphorus Magnesium Total Bilirubin AST ALT Alkaline Phosphatase Total Protein Albumin Procalcitonin Nasal MRSA (PCR) Detected A* Quality VTE Prophylaxis VTE prophylaxis: pharmacologic ordered
--- NOTE | 2024-06-23 12:26 | P.PNNP_ITS ---
Progress Note: A&P Assessment and Plan (1) JOVI (acute kidney injury): Code(s): N17.9 - Acute kidney failure, unspecified Status: Acute Assessment and Plan: * no real significant improvement to date * normal creatinine ~ 1 month ago * admitted with a creatinine of 2.1mg/dl with ongoing worsening noted * due to multifactorial ATN: * hemodynamic instability/shock * sepsis * infection (UTI +/- pneumonia) -- although culture negative to date * hypoxia * other? * evaluation to date noted: * renal ultrasound negative for obstruction * urine eosinophils negative * urine electrolytes pre-renal (in spite of evidence of volume overload) * CPK low * moderate proteinuria (~ 600mg) * UA with blood and protein (and negative urine culture) * has been dialysis dependent since 06/05 * s/p daily dialysis alternating with DUF (except Sundays) to facilitate euvolemia * HD yesterday and continue Tue/Tue/Tuesday schedule * s/p tunneled HD catheter placement on 06/22/24 * follow repeat labs and UOP to assess for potential renal recovery (2) Acute respiratory failure: Code(s): J96.00 - Acute respiratory failure, unspecified whether with hypoxia or hypercapnia Status: Acute Assessment and Plan: * intubated on 06/05 for impending respiratory failure * failed BiPAP therapy * ABG with noted hypercapnea and hypoxia * secondary to pulmonary edema, diffuse bilateral infiltrates and ARDS * on bronchodilators * weaned off steroids * continue dialyis/dry ultrafiltration for fluid removal * noted plans for tracheostomy and G-tube placement (3) Septic shock: Code(s): A41.9 - Sepsis, unspecified organism; R65.21 - Severe sepsis with septic shock Status: Acute Assessment and Plan: * initially thought to be secondary to UTI and pneumonia * remains on low dose levophed therapy to maintain MAP * Echo results noted * continue midodrine * culture data noted: * blood/urine cultures from 06/02 negative * blood culture 06/06 with E. coli and Staph epidermidis * urine culture on 06/06 negative. * blood culture on 06/08 negative * repeat cultures due to fevers * resumed on antibiotics due to fevers * weaned levophed * follow trend of hemodynamics (4) Pulmonary edema: Code(s): J81.1 - Chronic pulmonary edema Status: Acute Assessment and Plan: * contributing to #2 * secondary to JOVI/ARF but ARDS an issues as well * failed diuretic therapy * HD/DUF for fluid removal * almost 22L negative since admission (5) Afib: Code(s): I48.91 - Unspecified atrial fibrillation Status: Acute Assessment and Plan: * rate control stratgey * on amiodarone and Eliquis (6) Anemia: Code(s): D64.9 - Anemia, unspecified Status: Acute Assessment and Plan: * related to JOVI and acute/critical illness * KIRILL with HD * follow trend of H/H (7) Liver cirrhosis secondary to HOFFMANN: Code(s): K75.81 - Nonalcoholic steatohepatitis (HOFFMANN); K74.60 - Unspecified cirrhosis of liver Status: Acute Assessment and Plan: * known history * normal liver by recent imaging * noted elevations in AST/ALT that have been up and down * fluctuating LFTS thought to be more related to congestion/volume overload * continue to follow (8) Type 2 diabetes mellitus: Code(s): E11.9 - Type 2 diabetes mellitus without complications Status: Acute Assessment and Plan: * follow accu-cheks * glycemic control per trim carpenter/hospitalist Will continue to follow. Subjective Date/time seen: 06/23/24 12:26 Interval history: Follow-up for acute kidney injury/acute renal failure with dialysis dependence. Tolerated dialysis treatment yesterday morning without any issues or problems; s/p tunneled HD catheter placement yesterday afternoon and tolerated this interventions reasonably well; remains intubated/sedated and on mechanical ventilation; febrile overnight with a Tmax of 102.2?; no apparent distress noted . Exam Narrative: General: large female intubated/sedated on mechanical ventilator Heart: normal S1 and S2; no rub Lungs: coarse breath sounds; decreased at bases Abdomen: obese but soft, nontender, nondistended, positive bowel sounds Extremities: no cyanosis or clubbing; trace - 1+ edema Skin: warm and dry Objective Data Vital Signs Vital Signs: Vital Signs Temp Pulse Resp BP Pulse Ox O2 Del Method FiO2 06/23/24 12:00 100.9 F H 82 20 122/65 95 06/23/24 10:00 100.8 F H 87 24 H 118/59 L 94 06/23/24 08:00 100.6 F H 86 24 H 139/77 95 11/02/24 10:00 87 24 H 06/23/24 10:17 86 95 Mechanical Ventilation 55 06/23/24 09:34 87 06/23/24 08:34 88 95 Mechanical Ventilation 55 06/23/24 08:20 83 25 H 06/23/24 08:10 89 22 H 06/23/24 08:10 89 94 Mechanical Ventilation 55 06/23/24 07:57 80 20 06/23/24 07:56 85 20 06/23/24 06:00 80 06/23/24 04:00 87 06/23/24 06:00 100.5 F H 81 20 115/60 95 06/23/24 04:00 100.5 F H 83 31 H 124/63 95 06/23/24 06:00 81 20 06/23/24 06:00 81 20 06/23/24 04:00 83 29 H 06/23/24 04:00 83 29 H 06/23/24 04:00 55 06/23/24 04:00 Mechanical Ventilation 55 06/23/24 05:15 82 94 Mechanical Ventilation 55 06/23/24 02:00 83 06/23/24 02:00 100.3 F H 83 20 111/70 95 06/23/24 02:00 83 20 06/23/24 02:00 83 20 06/23/24 01:59 83 27 H 06/23/24 01:54 84 95 Mechanical Ventilation 55 06/23/24 01:54 84 29 H 06/23/24 00:00 83 06/23/24 00:00 60 06/23/24 00:00 Mechanical Ventilation 60 06/22/24 22:00 85 06/23/24 00:00 100.5 F H 87 22 H 120/70 96 06/22/24 22:00 84 30 H 116/51 L 96 06/22/24 20:00 79 06/22/24 23:20 79 96 Mechanical Ventilation 60 06/23/24 00:00 80 20 06/22/24 22:00 87 29 H 06/23/24 00:00 80 20 06/22/24 22:00 87 29 H 06/22/24 21:39 101.9 F H 06/22/24 21:58 86 06/22/24 20:00 60 06/22/24 20:00 Mechanical Ventilation 60 06/22/24 20:56 82 28 H 06/22/24 20:10 82 96 Mechanical Ventilation 60 06/22/24 20:49 82 24 H 06/22/24 20:39 102.2 F H 06/22/24 20:00 102.2 F H 83 33 H 114/49 L 95 06/22/24 20:00 83 33 H 06/22/24 20:00 83 33 H 06/22/24 18:00 77 32 H 06/22/24 18:00 79 30 H 06/22/24 18:00 78 33 H 103/43 L 96 06/22/24 18:00 77 Intake/Output Intake/Output: Intake & Output 06/20/24 06/21/24 06/22/24 06/23/24 23:59 23:59 23:59 23:59 Intake Total 1730.3 1241.3 236.8 639.1 Output Total 4050 15 4229 20 Balance -2319.7 1226.3 -3992.2 619.1 Meds/Results Medications: Active Medications Generic Name Dose Route Start Last Admin Trade Name Freq PRN Reason Stop Dose Admin Acetaminophen 650 mg 06/07/24 21:53 06/22/24 20:39 Acetaminophen Elixir 325 Mg/10.15 Ml Udc PO 650 mg Q6H PRN Administration Mild Pain (1-3) or Fever Albuterol/Ipratropium 3 ml 06/05/24 11:15 06/23/24 13:29 Ipratropium 0.5 Mg/Albuterol Sulfate 2.5 Mg Ampul.Neb 3 Ml INHALATION 3 ml Q6HRT JOHN Administration Amiodarone HCl 200 mg 06/02/24 21:00 06/23/24 09:34 Amiodarone Hcl 200 Mg Tablet PO 200 mg Q12HR JOHN Administration Dextrose 12.5 gm 06/05/24 11:46 Dextrose 50% 25 Gm/50 Ml Syringe IV PUSH PRN PRN Hypoglycemia Protocol Enoxaparin Sodium 40 mg 06/23/24 12:20 06/23/24 13:50 Enoxaparin 40 Mg/0.4 Ml Syringe SUB-Q 40 mg DAILY JOHN Administration Epoetin Shayan-epbx 10,000 units 06/18/24 09:00 06/22/24 09:28 Epoetin Shayan-Epbx 10,000 Units/Ml Vial IV PUSH 10,000 units MOWEFR@09 JOHN Administration Glucagon 1 mg 06/05/24 11:46 Glucagon For Inj 1 Mg Vial IM PRN PRN Hypoglycemia Protocol Glucose 15 gm 06/05/24 11:46 Glucose Oral Gel 15 Gm Of Glucse In 37.5 Gm Tube PO PRN PRN Hypoglycemia Protocol Dextrose 1,000 mls @ 100 mls/hr 06/05/24 11:46 Dextrose 5% 1,000 Ml IVPB PRN PRN Hypoglycemia Protocol Albumin Human 50 mls @ 999 mls/hr 06/08/24 09:50 06/12/24 11:39 Albutein IVPB 07/08/24 09:49 Infused Q10M PRN Infusion HYPOTENSION Fentanyl Citrate 2,500 mcg in 250 mls @ 2.5 mls/hr 06/21/24 09:40 06/23/24 14:00 Fentanyl 2,500 Mcg/Ns 250 Ml IV CONT 25 mcg/hr .Q72H JOHN 2.5 mls/hr Titration Protocol 25 MCG/HR Midazolam HCl 100 mg in 100 mls @ 1 mls/hr 06/21/24 09:45 06/23/24 14:00 Versed 100 Mg/Ns 100 Ml IV CONT 1 mg/hr .Q72H JOHN 1 mls/hr Titration Protocol 1 MG/HR Cefazolin Sodium 100 mls @ 200 mls/hr 06/25/24 12:00 Ancef 3 Gm/D5w 100 Ml IVPB 06/25/24 12:29 ONCE ONE Meropenem 500 mg in 100 mls @ 200 mls/hr 06/23/24 09:00 06/23/24 11:00 IVPB Infused Q12HR JOHN Infusion Insulin Aspart 3 - 6 units 06/05/24 12:00 06/23/24 12:51 Insulin Aspart (*Bkc) 100 Units/Ml SUB-Q Not Given Q6HR JOHN Protocol Midodrine 10 mg 06/17/24 22:00 06/23/24 13:50 Midodrine Hcl 10 Mg Tablet PO 10 mg Q8H JOHN Administration Multi-Ingred Cream/Lotion/Oil/Oint 1 applic 06/05/24 09:00 06/23/24 09:34 Mineral Oil/White Petrolatum Ointment EACH EYE 1 applic Q12HR JOHN Administration Ondansetron HCl 4 mg 06/11/24 07:47 06/22/24 20:35 Ondansetron Inj 4 Mg/2 Ml Vial IV PUSH 4 mg Q6H PRN Administration Nausea And Vomiting Pantoprazole Sodium 40 mg 06/06/24 09:00 06/23/24 09:34 Pantoprazole Sodium Iv 40 Mg Vial IV PUSH 40 mg Q12HR JOHN Administration Umeclidinium [place] 1 puff 06/03/24 08:00 06/14/24 12:38 Umeclidinium [place] 62.5 Mcg Ellipta INHALATION Not Given DAILYRT JOHN Vancomycin HCl 1 each 06/23/24 09:17 Vancomycin For Hemodialysis IVPB PRN PRN Vancomycin Protocol Radiology Results: ITS Impressions Renal Ultrasound 06/04/24 15:06 IMPRESSION: 1. Normal kidneys. No hydronephrosis. Abdomen Ultrasound 06/10/24 14:47 IMPRESSION: Fat infiltration. Enlarged left lobe of the liver. Slightly thickened wall of the gallbladder. Trace of ascites. Otherwise, normal Limited ultrasound of the abdomen. Abdomen X-Ray 06/16/24 13:54 IMPRESSION: 1. Nasogastric tube tip in the stomach. 2. Nonobstructive bowel gas pattern. 3. Diffuse lung disease, consistent with pulmonary edema versus pneumonia. 4. Cardiomegaly. Chest/Abdomen/Pelvis CT 06/17/24 10:03 IMPRESSION: 1. Diffuse lung disease, consistent with pulmonary edema versus pneumonia versus acute respiratory distress syndrome. 2. Cardiomegaly. 3. Small volume of ascites. Venous Doppler Study 06/17/24 11:49 IMPRESSION: 1. No deep venous thrombosis. Central Venous Line 06/22/24 14:36 IMPRESSION: 1. Right internal jugular central venous catheter tip at the caudal superior vena cava. Chest X-Ray 06/23/24 07:45 IMPRESSION: 1. Lines and tubes in expected positions. 2. No significant change in small lung volumes with mild diffuse opacities and atelectasis, pulmonary edema, pneumonia or some combination thereof. 3. Cardiomegaly. Labs Labs: Laboratory Tests 06/23/24 03:46 06/23/24 03:46 Calcium 10.0 Phosphorus 3.6 Magnesium 2.3 Total Bilirubin 1.5 H AST 202 H ALT 65 H Alkaline Phosphatase 327 H Total Protein 7.0 Albumin 3.4 L Lipase 478 H Procalcitonin 4.9
[2024-06-23 12:41] LABS: Add Urine Microscopic? YES; Appearance Urine Turbid (Clear); Bacteria Urine 1+ /hpf; Bilirubin Urine 3+ (Negative); Blood Urine 2+ (Negative); Color Urine Dark Yellow (Yellow); Glucose Urine UA Trace mg/dL (Negative); Ketones Urine Trace mg/dL (Negative); Leukocyte Esterase Ur 1+ LEU/UL (Negative); Need Manual Microscopic Reviewed; Nitrate Urine Negative (Negative); Non Pathogenic Casts >20; Protein Urine 3+ mg/dL (Negative); Specific Grav Ur 1.033 (1.001-1.035); Squamous Epithelial Cell Urine Few /hpf (Few)
[2024-06-23 12:41] LABS: Lipase 478 U/L (23-300)
[2024-06-23] MEDS: ENOXAPARIN 40 MG/0.4 ML SYRINGE SUB-Q (13:50)
[2024-06-23 17:56] LABS: Glucose Point of Care 131 mg/dl (65-105)
[2024-06-23] MEDS: FENTANYL 2,500MCG/NS250ML(*CRX 2,500 MCG/250 ML BAG IV CONT (20:00)
[2024-06-23] MEDS: MIDAZOLAM 100MG/NS 100ML(*CRX) 100 MG/100 ML BAG IV CONT (20:00)
[2024-06-23] MEDS: ONDANSETRON INJ 4 MG/2 ML VIAL IV PUSH (21:44)
[2024-06-24] VITALS (33 sets, daily range): BP systolic 118–140; BP diastolic 55–82; PULSE 66–82; RESP 17–35; TEMP 37.6–38.5; O2SAT 94–97
[2024-06-24 00:15] LABS: Glucose Point of Care 148 mg/dl (65-105)
--- NOTE | 2024-06-24 01:13 | PC.NURSE ---
Daylight Savings Time For Daylight Savings Time Ending in the Fall - Clocks are moved back. For Daylight Savings Time Beginning in the Spring - Clocks are moved ahead. For [facility], the time of change occurs at 0200 hrs. Time is taken from the server manager. This entry on the patient's chart recognizes the change in time reflected during documentation. Example: 2 entries for vital signs may be charted for 0200 hrs.
[2024-06-24 01:38] LABS: Toxigenic C. Diff POSITIVE (NEGATIVE)
[2024-06-24] MEDS: IPRATROPIUM 0.5 MG/ALBUTEROL SULFATE 2.5 MG AMPUL.NEB 3 ML INHALATION ×4 (02:28→20:12)
[2024-06-24] MEDS: FIDAXOMICIN 200 MG TABLET PO ×3 (02:35→20:01)
[2024-06-24 03:49] LABS: Basophils Absolute Auto 0.1 K/mm3 (0.0-0.1); Basophils Percent Auto 0.8 % (0.2-1.2); Eosinophils Absolute Auto 0.3 K/mm3 (0-0.3); Eosinophils Percent Auto 2.5 % (0-4.4); Hematocrit 31.2 % (37.0-47.0); Hemoglobin 9.5 g/dL (12.0-15.0); Immature Granulocyte Absolute 0.28 K/mm3 (0.00-0.031); Immature Granulocyte Percent A 2.1 % (0-0.5); Mean Corpuscular HGB Conc 30.4 g/dl (32-36); Mean Corpuscular Volume 88.6 fl (80-100); Mean Platelet Volume 10.6 fl (7.4-10.4); Monocytes Absolute Auto 1.6 K/mm3 (0.1-0.6); Neutrophils Absolute Auto 9.3 K/mm3 (1.3-6.7); Neutrophils Percent Auto 68.6 % (45.5-73.1); Nucleated Red Blood Cells Perc 0.1 % (0.0-0.2); Platelet Count Result 233 k/mm3 (150-375); Red Blood Count 3.52 M/mm3 (4.2-5.4); Red Cell Distribution Width 19.4 % (11.5-14.5); White Blood Count 13.6 K/mm3 (4.5-10.0)
[2024-06-24 03:58] LABS: INR 1.4; Prothrombin Time 17.9 Seconds (11.1-14.7)
[2024-06-24 04:03] LABS: Alanine Aminotransferase 31 U/L (6-35); Albumin Level 3.3 g/dL (3.5-5.1); Alkaline Phosphatase 304 U/L (38-126); Anion Gap 14 mmol/L (4-12); Aspartate Amino Transferase 140 U/L (14-36); Bilirubin,Total 1.2 mg/dL (0.2-1.3); Blood Urea Nitrogen 78 mg/dL (7-17); Calcium 10.1 mg/dL (8.4-10.2); Carbon Dioxide 25 mmol/L (22-30); Chloride 97 mmol/L (98-107); Glucose 128 mg/dL (65-110); Magnesium 2.5 mg/dL (1.6-2.3); Phosphorus 4.1 mg/dL (2.5-4.5); Potassium 3.7 mmol/L (3.4-5.0); Sodium 136 mmol/L (137-145)
[2024-06-24 04:08] LABS: Estimated CRCL calculation 18 ml/min; Estimated Glomerular Filt Rate 9
[2024-06-24 05:04] LABS: Alveolar/Arterial O2 Gradient 239.9 mmHg; Base Excess ABG 0.7 mEq/l (+/-2.0); Fractional Inspired Oxygen 55 %; HCO3 ABG 25.9 mEq/l (22.0-26.0); Oxygen Content ABG 15.3 %vol (16.0-22.0); Oxygen Saturation ABG 97.7 % (95.0-100.0); Oxyhemoglobin 97.3 % THb (90.0-100.0); PCO2 ABG 43.9 mmHg (35.0-45.0); PO2 ABG 103.4 mmHg (80.0-100.0); PO2 FiO2 Ratio Arterial Blood 1.88 %; Total Hemoglobin 11.1 g/dL (12.0-18.0); pH ABG 7.388 (7.350-7.450)
[2024-06-24 05:06] LABS: Device VENTILATOR; Modified Allen's Test Pass; Site Drawn LEFT RADIAL
[2024-06-24 05:07] LABS: Arterial Blood Gas PEEP 10 cmH2O; Arterial Blood Gas Tidal Volume 400 ml; Arterial Blood Gas Vent Mode CMV; Arterial Blood Gas Ventilator rate 20 /MIN
[2024-06-24] MEDS: MIDODRINE HCL 10 MG TABLET PO ×3 (05:24→21:00)
--- NOTE | 2024-06-24 06:30 | PC.NURSE ---
Discrepancy in weight noted from previous shift. Patient was removed from bed via maxi glenda lift and bed was zeroed.
[2024-06-24] MEDS: MINERAL OIL/WHITE PETROLATUM OINTMENT 1 APPLIC EACH EYE ×2 (08:21→20:03)
[2024-06-24] MEDS: ENOXAPARIN 30 MG/0.3 ML SYRINGE SUB-Q (08:21)
[2024-06-24] MEDS: AMIODARONE HCL 200 MG TABLET PO ×2 (08:21→20:00)
[2024-06-24] MEDS: PANTOPRAZOLE SODIUM IV 40 MG VIAL IV PUSH ×2 (08:22→20:00)
[2024-06-24] MEDS: metroNIDAZOLE 500 MG/ISO 100ML 500 MG/100 ML BAG 100 MG IVPB ×3 (08:26→21:00)
--- NOTE | 2024-06-24 09:21 | WPDINTPN ---
Progress Note: A&P Assessment and Plan (1) Acute respiratory failure: Code(s): J96.00 - Acute respiratory failure, unspecified whether with hypoxia or hypercapnia Status: Acute Assessment and Plan: Chest x-ray bilateral diffuse pulmonary infiltrates/pulmonary edema. Patient was placed on BiPAP. ABG showed hypercapnic and hypoxemic respiratory failure. Etiology pulmonary edema, pneumonia, ARDS -06/05: patient intubated for impending respiratory failure. Intubation was slightly challenging secondary to body habitus, small mouth, large tongue, redundant tissue in the hypopharynx and anterior vocal cords requiring cricoid pressure and use of glide scope. CT chest 06/17 IMPRESSION: 1. Diffuse lung disease, consistent with pulmonary edema versus pneumonia versus acute respiratory distress syndrome. 2. Cardiomegaly. 3. Small volume of ascites. -currently on CMV mode of ventilation, currently on PEEP down to 8, 55% FiO2, -chest x-ray reviewed and shows improvement although still has diffuse bilateral infiltrates although there has been improvement -continue bronchodilators - fentanyl and Versed infusion for analgosedation, will maintain RASS of -2 -patient has significant volume overload and need additional fluid removed patient is being dialyzed again today. -patient has failed her PSV trials multiple times and is not close to showing any signs of weaning - 06/19: Discussed with patient's sister who is the POA and patient's son, they they requested and agreeable for tracheostomy and PEG tube placement -ENT as scheduled tracheostomy placement for 06/25/2024 -GI cannot place the PEG tube due to patient's body habitus as well as enlarged liver. Surgery will place G-tube most likely on 06/22/2024. (2) Septic shock: Code(s): A41.9 - Sepsis, unspecified organism; R65.21 - Severe sepsis with septic shock Status: Acute Assessment and Plan: Septic shock could be related to UTI, pneumonia -patient was hypotensive in the intermediate Unit and was transferred to the ICU which she received fluids, albumin -continue norepinephrine as needed to maintain mean arterial pressure. Currently off -off vancomycin -completed cefepime for a total of 7 days -off stress dose steroids -continue midodrine -06/17: CT chest abdomen and pelvis for ongoing leukocytosis and vasopressor requirement. Will also obtain right lower extremity venous Dopplers since patient has a right lower extremity is erythematous, slightly swollen. 06/05/2024: Echocardiogram Summary 1. Left ventricular chamber dimension is normal. 2. Left ventricular systolic function is normal, estimated at 65-70%. 3. The left ventricular diastolic function is grade I diastolic dysfunction. 4. Right ventricular chamber dimension is moderately enlarged. 5. Right ventricular systolic function is normal. 6. Left atrial chamber dimension is moderately enlarged. 7. Right atrial chamber dimension is moderately enlarged. 8. There is mild to moderate tricuspid valve regurgitation. 11/ overnight patient had a increase in WBC count and high-grade fevers Increased FiO2 requirement and increased endotracheal suction Procalcitonin level 4.9 Lai catheter changed, UA suggestive of UTI and urine culture ordered Sputum and blood culture ordered Patient also tested positive for C diff Continue vancomycin. Switch meropenem to cefepime and Flagyl. Dificid added for C diff CT abdomen pelvis pending Lipase also elevated at 478 (3) JOVI (acute kidney injury): Code(s): N17.9 - Acute kidney failure, unspecified Status: Acute Assessment and Plan: Patient with acute kidney injury, with increase creatinine to 4.60 (creatinine on admission on 06/02/2024 was 2.10 and her creatinine on 04/26/2024 was 0.90) -etiology for acute kidney injury could be multifactorial, hypotension, shock, sepsis, UTI/pneumonia, hypoxia,? SLE flare, CHF, -CK levels are within normal limits -urine eosinophils were negative -urine electrolytes showed prerenal picture, patient seems to be volume overloaded -status post given IV fluids and albumin, will hold fluids for now -discussed with scallop dredger at [facility], feels that the patient is unstable to be transferred at this time for CRRT, recommended conventional dialysis. -discussed with ict analyst at [facility], agrees to conventional dialysis at this time -06/05: dialysis catheter was placed in the right IJ and exchange for the central line -06/05: Initiated dialysis, with 3000 mL of fluid removal -06/06: Dialysis with 3000 mL in fluid removal -06/07: Dialysis with 3700 mL in fluid removal -06/08: Dialysis with 2900 mL in fluid removal -06/09: Dialysis with 3000 mL in fluid removal -06/10: No dialysis -06/12: Patient was dialyzed and 3.1 P L fluid was removed -06/13 getting dialyzed again today. 4 L removed - 06/14: 3000 mL removed - 06/15: 4000 mL fluid was removed - 06/16: 4000 mL in fluid removal with dialysis - 06/18: 4000 ml in fluid removal - 06/20: 4000 mL in fluid removal - 06/22: Patient is getting dialyzed again today 4 L fluid removed Underwent tunneled dialysis catheter placement on 06/22/2024 (4) Pulmonary edema: Code(s): J81.1 - Chronic pulmonary edema Status: Acute Assessment and Plan: Pulmonary edema likely related to acute kidney injury, ARDS, -did not respond to Bumex -continue fluid removal with dialysis (5) Type 2 diabetes mellitus: Code(s): E11.9 - Type 2 diabetes mellitus without complications Status: Acute Assessment and Plan: SSI and accucheks HbA1C is 5.7 this admission (6) Afib: Code(s): I48.91 - Unspecified atrial fibrillation Status: Acute Assessment and Plan: continue amiodarone -Eliquis currently on hold for procedures - flecainide was stopped (7) SLE (systemic lupus erythematosus): Code(s): M32.9 - Systemic lupus erythematosus, unspecified Status: Acute Assessment and Plan: Off steroids (8) Liver cirrhosis secondary to HOFFMANN: Code(s): K75.81 - Nonalcoholic steatohepatitis (HOFFMANN); K74.60 - Unspecified cirrhosis of liver Status: Acute Assessment and Plan: Continues to have mild elevation in LFTs and bilirubin which is stable 06/10/2024: RUQ ultrasound: Fat infiltration. Enlarged left lobe of the liver. Slightly thickened wall of the gallbladder. Trace of ascites. Otherwise, normal Limited ultrasound of the abdomen. -06/10/2024: Hepatitis panel is negative -continue to monitor (9) GERD (gastroesophageal reflux disease): Code(s): K21.9 - Gastro-esophageal reflux disease without esophagitis Status: Acute Assessment and Plan: Continue Protonix (10) Morbid obesity with BMI of 50.0-59.9, adult: Code(s): E66.01 - Morbid (severe) obesity due to excess calories; Z68.43 - Body mass index [BMI] 50.0-59.9, adult Status: Acute Assessment and Plan: Once extubated she will need lifestyle changes (11) Pancreatitis: Code(s): K85.90 - Acute pancreatitis without necrosis or infection, unspecified Status: Acute Assessment and Plan: Lipase elevated CT abdomen pelvis pending Continue tube feeds at this time (12) C. difficile diarrhea: Code(s): A04.72 - Enterocolitis due to Clostridium difficile, not specified as recurrent Status: Acute Assessment and Plan: Continue Dificid and IV Flagyl CT abdomen pelvis pending Plan DVT prophylaxis: Eliquis on hold for procedures. Continue Lovenox for DVT prophylaxis Stress ulcer prophylaxis: Protonix Nutrition: Tube feeds resumed Code Status: Full code Critical Care Time Spent: 30 minutes Due to a high probability of clinically significant, life threatening deterioration, the patient required my highest level of preparedness to intervene emergently and I personally spent this critical care time directly and personally managing the patient. This critical care time included obtaining a history; examining the patient; pulse oximetry; ordering and review of studies; arranging urgent treatment with development of a management plan; evaluation of patient's response to treatment; frequent reassessment; and discussions with other providers. It was exclusive of separately billable procedures and treating other patients and teaching time. Please see Assessment and Plan section and the rest of the note for further information on patient assessment and treatment This dictation may have been done utilizing a voice recognition system. Attempts have been made to correct errors. However, there may be uncorrected grammatical, spelling, and recognitions errors present Subjective Date/time seen: 06/24/24 Overnight events reviewed. febrile Developed diarrhea Continues to be on mechanical ventilation 55% FiO2 and 8 of PEEP Continues to be sedated with fentanyl Versed Other Vitals acceptable Interval history: Reason for consult: Acute respiratory failure, septic shock, acute kidney injury, pulmonary edema 06/05: Intubated and hemodialysis initiated 06/22: Tunneled dialysis catheter placed Review of Systems Review of Systems: ROS unobtainable: Yes unobtainable due to endotracheal tube, unobtainable due to medical condition and unobtainable due to mental status Exam Narrative: General: Morbidly obese female currently intubated and sedated in no acute distress HEENT:? Pupils equal and reactive bilaterally, sclera is clear, ETT in place Neck:, short and thick neck, Respiratory:? Decreased and coarse breath sounds bilaterally, no wheezing, Cardiac:? S1-S2 is normal, regular rate and rhythm Abdomen:? Morbid obesity, soft, hypoactive bowel sounds tenderness in right upper quadrant Extremities:? Bilateral lower extremity pitting edema improving, wrinkling of skin on the feet are noted, palpable pedal pulses. Right calf is warm, erythematous, nontender Neuro:? Patient is intubated, sedated, opens her eyes, follows simple commands in all extremities and nods to questions Skin:? Erythema in the intertriginous region and under her pannus, skin is dry and warm Psych:? Unable to assess at this time Objective Data Vital Signs Vital Signs: Vital Signs - 24 hr 06/23/24 12:00 06/23/24 12:00 06/23/24 12:00 Temperature 38.3 C H Pulse Rate 82 82 82 Respiratory Rate 20 20 20 Blood Pressure 122/65 Pulse Oximetry 95 Oxygen Delivery Fraction of Inspired Oxygen 06/23/24 12:00 06/23/24 12:00 06/23/24 12:00 Temperature Pulse Rate 82 Respiratory Rate Blood Pressure Pulse Oximetry 95 Oxygen Delivery Mechanical Ventilation Fraction of Inspired Oxygen 55 55 06/23/24 13:29 06/23/24 13:29 06/23/24 13:38 Temperature Pulse Rate 83 83 83 Respiratory Rate 27 H 25 H Blood Pressure Pulse Oximetry 96 Oxygen Delivery Mechanical Ventilation Fraction of Inspired Oxygen 55 06/23/24 14:00 06/23/24 14:00 06/23/24 14:00 Temperature 38.3 C H Pulse Rate 83 83 83 Respiratory Rate 22 H 22 H Blood Pressure 119/62 Pulse Oximetry 96 Oxygen Delivery Fraction of Inspired Oxygen 06/23/24 14:00 06/23/24 16:00 06/23/24 16:00 Temperature Pulse Rate 83 Respiratory Rate 22 H Blood Pressure Pulse Oximetry 95 Oxygen Delivery Mechanical Ventilation Fraction of Inspired Oxygen 55 55 06/23/24 16:00 06/23/24 16:00 06/23/24 17:01 Temperature 38.2 C H Pulse Rate 84 79 78 Respiratory Rate 22 H Blood Pressure 133/75 Pulse Oximetry 95 95 Oxygen Delivery Mechanical Ventilation Fraction of Inspired Oxygen 55 06/23/24 16:00 06/23/24 18:00 06/23/24 16:00 Temperature Pulse Rate 84 77 84 Respiratory Rate 22 H 20 22 H Blood Pressure Pulse Oximetry Oxygen Delivery Fraction of Inspired Oxygen 06/23/24 18:00 06/23/24 18:00 06/23/24 18:00 Temperature 38.1 C H Pulse Rate 77 77 77 Respiratory Rate 20 20 Blood Pressure 119/65 Pulse Oximetry 95 Oxygen Delivery Fraction of Inspired Oxygen 06/23/24 20:01 06/23/24 20:00 06/23/24 20:00 Temperature 38.1 C H Pulse Rate 76 75 75 Respiratory Rate 19 20 20 Blood Pressure 111/63 Pulse Oximetry 95 Oxygen Delivery Fraction of Inspired Oxygen 06/23/24 20:00 06/23/24 20:00 06/23/24 20:00 Temperature Pulse Rate 75 75 Respiratory Rate 20 20 Blood Pressure Pulse Oximetry Oxygen Delivery Fraction of Inspired Oxygen 55 06/23/24 20:00 06/23/24 21:10 06/23/24 21:10 Temperature Pulse Rate 83 83 Respiratory Rate 25 H Blood Pressure Pulse Oximetry 94 Oxygen Delivery Mechanical Ventilation Mechanical Ventilation Fraction of Inspired Oxygen 55 55 06/23/24 20:00 06/23/24 21:44 06/23/24 22:00 Temperature Pulse Rate 75 82 78 Respiratory Rate Blood Pressure Pulse Oximetry Oxygen Delivery Fraction of Inspired Oxygen 06/23/24 22:00 06/23/24 22:00 06/23/24 22:34 Temperature 37.9 C H Pulse Rate 78 78 75 Respiratory Rate 20 20 28 H Blood Pressure 114/57 L Pulse Oximetry 93 Oxygen Delivery Fraction of Inspired Oxygen 06/23/24 23:20 06/23/24 21:20 06/24/24 00:16 Temperature 37.6 C H Pulse Rate 73 83 73 Respiratory Rate 21 H 21 H Blood Pressure 128/62 Pulse Oximetry 94 95 Oxygen Delivery Mechanical Ventilation Fraction of Inspired Oxygen 55 06/24/24 00:00 06/24/24 00:00 06/24/24 00:00 Temperature Pulse Rate 75 75 Respiratory Rate 20 20 Blood Pressure Pulse Oximetry Oxygen Delivery Mechanical Ventilation Fraction of Inspired Oxygen 55 06/24/24 00:00 06/24/24 00:00 06/24/24 02:13 Temperature Pulse Rate 73 Respiratory Rate Blood Pressure 126/64 Pulse Oximetry Oxygen Delivery Fraction of Inspired Oxygen 55 06/24/24 02:34 06/24/24 02:34 06/24/24 04:29 Temperature 37.6 C H Pulse Rate 70 70 66 Respiratory Rate 21 H 21 H Blood Pressure 122/65 Pulse Oximetry 95 95 Oxygen Delivery Mechanical Ventilation Fraction of Inspired Oxygen 55 06/24/24 05:09 06/24/24 02:00 06/24/24 04:00 Temperature Pulse Rate 71 72 71 Respiratory Rate 22 H 22 H Blood Pressure Pulse Oximetry 94 Oxygen Delivery Mechanical Ventilation Fraction of Inspired Oxygen 55 06/24/24 02:00 06/24/24 04:00 06/24/24 02:00 Temperature Pulse Rate 72 71 71 Respiratory Rate 22 H 22 H Blood Pressure Pulse Oximetry Oxygen Delivery Fraction of Inspired Oxygen 06/24/24 04:00 06/24/24 04:00 06/24/24 04:00 Temperature Pulse Rate 71 Respiratory Rate Blood Pressure Pulse Oximetry Oxygen Delivery Mechanical Ventilation Fraction of Inspired Oxygen 55 55 06/24/24 06:00 06/24/24 06:00 06/24/24 06:00 Temperature Pulse Rate 73 73 73 Respiratory Rate 24 H 24 H Blood Pressure Pulse Oximetry Oxygen Delivery Fraction of Inspired Oxygen 06/24/24 06:01 06/24/24 08:02 06/24/24 08:02 Temperature 37.7 C H Pulse Rate 73 69 69 Respiratory Rate 23 H 21 H Blood Pressure 119/59 L Pulse Oximetry 94 94 Oxygen Delivery Mechanical Ventilation Fraction of Inspired Oxygen 55 06/24/24 08:10 06/24/24 08:00 06/24/24 08:00 Temperature 37.7 C H Pulse Rate 71 71 71 Respiratory Rate 22 H 17 22 H Blood Pressure 125/68 Pulse Oximetry 95 Oxygen Delivery Fraction of Inspired Oxygen 06/24/24 08:00 06/24/24 08:00 06/24/24 08:00 Temperature Pulse Rate 71 71 Respiratory Rate 22 H 24 H Blood Pressure Pulse Oximetry 94 Oxygen Delivery Mechanical Ventilation Fraction of Inspired Oxygen 55 55 06/24/24 08:21 Temperature Pulse Rate 70 Respiratory Rate Blood Pressure Pulse Oximetry Oxygen Delivery Fraction of Inspired Oxygen Intake/Output Intake/Output: Intake & Output 06/21/24 06/22/24 06/23/24 06/24/24 23:59 23:59 23:59 22:59 Intake Total 1241.3 236.8 1365.1 617.5 Output Total 15 4229 45 145 Balance 1226.3 -3992.2 1320.1 472.5 Meds/Results Medications: Active Medications Generic Name Dose Route Start Last Admin Trade Name Freq PRN Reason Stop Dose Admin Acetaminophen 650 mg 06/07/24 21:53 06/22/24 20:39 Acetaminophen Elixir 325 Mg/10.15 Ml Udc PO 650 mg Q6H PRN Administration Mild Pain (1-3) or Fever Albuterol/Ipratropium 3 ml 06/05/24 11:15 06/24/24 08:02 Ipratropium 0.5 Mg/Albuterol Sulfate 2.5 Mg Ampul.Neb 3 Ml INHALATION 3 ml Q6HRT JOHN Administration Amiodarone HCl 200 mg 06/02/24 21:00 06/24/24 08:21 Amiodarone Hcl 200 Mg Tablet PO 200 mg Q12HR JOHN Administration Dextrose 12.5 gm 06/05/24 11:46 Dextrose 50% 25 Gm/50 Ml Syringe IV PUSH PRN PRN Hypoglycemia Protocol Enoxaparin Sodium 30 mg 06/24/24 09:00 06/24/24 08:21 Enoxaparin 30 Mg/0.3 Ml Syringe SUB-Q 30 mg DAILY JOHN Administration Epoetin Shayan-epbx 10,000 units 06/18/24 09:00 06/22/24 09:28 Epoetin Shayan-Epbx 10,000 Units/Ml Vial IV PUSH 10,000 units MOWEFR@09 JOHN Administration Fidaxomicin 200 mg 06/24/24 01:35 CLINICAL NURSING COORDINATOR 06/24/24 02:35 Fidaxomicin 200 Mg Tablet PO 200 mg Q12HR JOHN Administration Glucagon 1 mg 06/05/24 11:46 Glucagon For Inj 1 Mg Vial IM PRN PRN Hypoglycemia Protocol Glucose 15 gm 06/05/24 11:46 Glucose Oral Gel 15 Gm Of Glucse In 37.5 Gm Tube PO PRN PRN Hypoglycemia Protocol Dextrose 1,000 mls @ 100 mls/hr 06/05/24 11:46 Dextrose 5% 1,000 Ml IVPB PRN PRN Hypoglycemia Protocol Albumin Human 50 mls @ 999 mls/hr 06/08/24 09:50 06/12/24 11:39 Albutein IVPB 07/08/24 09:49 Infused Q10M PRN Infusion HYPOTENSION Fentanyl Citrate 2,500 mcg in 250 mls @ 2.5 mls/hr 06/21/24 09:40 06/24/24 08:00 Fentanyl 2,500 Mcg/Ns 250 Ml IV CONT 25 mcg/hr .Q72H JOHN 2.5 mls/hr Titration Protocol 25 MCG/HR Midazolam HCl 100 mg in 100 mls @ 2 mls/hr 06/21/24 09:45 06/24/24 08:00 Versed 100 Mg/Ns 100 Ml IV CONT 2 mg/hr .Q50H JOHN 2 mls/hr Titration Protocol 2 MG/HR Cefazolin Sodium 100 mls @ 200 mls/hr 06/25/24 12:00 Ancef 3 Gm/D5w 100 Ml IVPB 06/25/24 12:29 ONCE ONE Metronidazole 500 mg in 100 mls @ 100 mls/hr 06/24/24 07:55 06/24/24 08:26 Flagyl 500 Mg/Iso Soln 100 Ml IVPB 100 mls/hr Q8HR JOHN Administration Cefepime HCl 0.5 gm/ Dextrose 50 mls @ 100 mls/hr 06/24/24 09:00 IVPB Q12H JOHN Insulin Aspart 3 - 6 units 06/05/24 12:00 06/24/24 05:20 Insulin Aspart (*Bkc) 100 Units/Ml SUB-Q Not Given Q6HR [facility] Protocol Midodrine 10 mg 06/17/24 22:00 06/24/24 05:24 Midodrine Hcl 10 Mg Tablet PO 10 mg Q8H JOHN Administration Multi-Ingred Cream/Lotion/Oil/Oint 1 applic 06/05/24 09:00 06/24/24 08:21 Mineral Oil/White Petrolatum Ointment EACH EYE 1 applic Q12HR JOHN Administration Ondansetron HCl 4 mg 06/11/24 07:47 06/23/24 21:44 Ondansetron Inj 4 Mg/2 Ml Vial IV PUSH 4 mg Q6H PRN Administration Nausea And Vomiting Pantoprazole Sodium 40 mg 06/06/24 09:00 06/24/24 08:22 Pantoprazole Sodium Iv 40 Mg Vial IV PUSH 40 mg Q12HR [facility] Administration Umeclidinium [place] 1 puff 06/03/24 08:00 06/14/24 12:38 Umeclidinium [place] 62.5 Mcg Ellipta INHALATION Not Given DAILYRT JOHN Vancomycin HCl 1 each 06/23/24 09:17 Vancomycin For Hemodialysis IVPB PRN PRN Vancomycin Protocol Radiology Results: ITS Impressions Renal Ultrasound 06/04/24 15:06 IMPRESSION: 1. Normal kidneys. No hydronephrosis. Abdomen Ultrasound 06/10/24 14:47 IMPRESSION: Fat infiltration. Enlarged left lobe of the liver. Slightly thickened wall of the gallbladder. Trace of ascites. Otherwise, normal Limited ultrasound of the abdomen. Abdomen X-Ray 06/16/24 13:54 IMPRESSION: 1. Nasogastric tube tip in the stomach. 2. Nonobstructive bowel gas pattern. 3. Diffuse lung disease, consistent with pulmonary edema versus pneumonia. 4. Cardiomegaly. Venous Doppler Study 06/17/24 11:49 IMPRESSION: 1. No deep venous thrombosis. Central Venous Line 06/22/24 14:36 IMPRESSION: 1. Right internal jugular central venous catheter tip at the caudal superior vena cava. Chest X-Ray 06/24/24 07:06 IMPRESSION: 1. Unchanged opacities in the left mid to lower lung zone which could represent atelectasis or pneumonia. 2. Cardiomegaly with interval improvement in prior pulmonary vascular congestion. Labs Labs: Laboratory Results - last 24 hr 06/23/24 06/23/24 06/23/24 03:46 09:57 12:12 WBC RBC Hgb Hct MCV MCH MCHC RDW Plt Count MPV Immature Gran % (Auto) Neut % (Auto) Lymph % (Auto) [place] % (Auto) Eos % (Auto) Baso % (Auto) Lymph # (Auto) [place] # (Auto) Eos # (Auto) Baso # (Auto) Abs Immat Gran (auto) Absolute Neuts (auto) Absolute Nucleated RBC Nucleated RBC % PT INR Puncture Site ABG pH ABG pCO2 ABG pO2 ABG PO2/FiO2 Ratio ABG HCO3 ABG O2 Saturation ABG O2 Content ABG Base Excess A-a Gradient Oxyhemoglobin Total Hemoglobin O2 Delivery Device O2 Liters/Min Minute Volume Vent Rate Vent Mode FiO2 Tidal Volume PEEP Peak Inspir Pressure Pressure Support Sodium Potassium Chloride Carbon Dioxide Anion Gap BUN Creatinine Estim Creat Clear Calc Estimated GFR Glucose POC Capillary Glucose 170 H Calcium Phosphorus Magnesium Total Bilirubin AST ALT Alkaline Phosphatase Total Protein Albumin Lipase 478 H Procalcitonin 4.9 Urine Color Urine Appearance Urine pH Ur Specific [place] Urine Protein Urine Glucose (UA) Urine Ketones Ur Blood (Man) Urine Nitrate Urine Bilirubin Urine Urobilinogen Add Ur Microanalysis Leukocyte Esterase Rfl Urine RBC Urine WBC Ur Squamous Epith Cells Urine Bacteria Urine Casts Nasal MRSA (PCR) Detected A* C. difficile (PCR) 06/23/24 06/23/24 06/23/24 12:18 17:54 23:52 WBC RBC Hgb Hct MCV MCH MCHC RDW Plt Count MPV Immature Gran % (Auto) Neut % (Auto) Lymph % (Auto) [place] % (Auto) Eos % (Auto) Baso % (Auto) Lymph # (Auto) [place] # (Auto) Eos # (Auto) Baso # (Auto) Abs Immat Gran (auto) Absolute Neuts (auto) Absolute Nucleated RBC Nucleated RBC % PT INR Puncture Site ABG pH ABG pCO2 ABG pO2 ABG PO2/FiO2 Ratio ABG HCO3 ABG O2 Saturation ABG O2 Content ABG Base Excess A-a Gradient Oxyhemoglobin Total Hemoglobin O2 Delivery Device O2 Liters/Min Minute Volume Vent Rate Vent Mode FiO2 Tidal Volume PEEP Peak Inspir Pressure Pressure Support Sodium Potassium Chloride Carbon Dioxide Anion Gap BUN Creatinine Estim Creat Clear Calc Estimated GFR Glucose POC Capillary Glucose 131 H Calcium Phosphorus Magnesium Total Bilirubin AST ALT Alkaline Phosphatase Total Protein Albumin Lipase Procalcitonin Urine Color Dark yellow Urine Appearance Turbid H Urine pH 5.0 Ur Specific [place] 1.033 Urine Protein 3+ H Urine Glucose (UA) Trace H Urine Ketones Trace H Ur Blood (Man) 2+ H Urine Nitrate Negative Urine Bilirubin 3+ H Urine Urobilinogen 1.0 Add Ur Microanalysis Reviewed Leukocyte Esterase Rfl 1+ H Urine RBC 6-10 H Urine WBC 6-10 H Ur Squamous Epith Cells Few Urine Bacteria 1+ H Urine Casts >20 Nasal MRSA (PCR) C. difficile (PCR) Positive A* 06/23/24 06/24/24 06/24/24 23:58 03:28 04:49 WBC 13.6 H RBC 3.52 L Hgb 9.5 L Hct 31.2 L MCV 88.6 MCH 27.0 MCHC 30.4 L RDW 19.4 H Plt Count 233 MPV 10.6 H Immature Gran % (Auto) 2.1 H Neut % (Auto) 68.6 Lymph % (Auto) 14.0 L [place] % (Auto) 12.0 H Eos % (Auto) 2.5 Baso % (Auto) 0.8 Lymph # (Auto) 1.90 [place] # (Auto) 1.6 H Eos # (Auto) 0.3 Baso # (Auto) 0.1 Abs Immat Gran (auto) 0.28 H Absolute Neuts (auto) 9.3 H Absolute Nucleated RBC 0.020 H Nucleated RBC % 0.1 PT 17.9 H INR 1.4 Puncture Site Left radial ABG pH 7.388 ABG pCO2 43.9 ABG pO2 103.4 H ABG PO2/FiO2 Ratio 1.88 ABG HCO3 25.9 ABG O2 Saturation 97.7 ABG O2 Content 15.3 L ABG Base Excess 0.7 A-a Gradient 239.9 Oxyhemoglobin 97.3 Total Hemoglobin 11.1 L O2 Delivery Device Ventilator O2 Liters/Min Not Reportable Minute Volume Not Reportable Vent Rate 20 Vent Mode Cmv FiO2 55 Tidal Volume 400 PEEP 10 Peak Inspir Pressure Not Reportable Pressure Support Not Reportable Sodium 136 L Potassium 3.7 Chloride 97 L Carbon Dioxide 25 Anion Gap 14 H BUN 78 H D Creatinine 5.00 H Estim Creat Clear Calc 18 Estimated GFR 9 L Glucose 128 H POC Capillary Glucose 148 H Calcium 10.1 Phosphorus 4.1 Magnesium 2.5 H Total Bilirubin 1.2 AST 140 H ALT 31 Alkaline Phosphatase 304 H Total Protein 7.0 Albumin 3.3 L Lipase Procalcitonin Urine Color Urine Appearance Urine pH Ur Specific [place] Urine Protein Urine Glucose (UA) Urine Ketones Ur Blood (Man) Urine Nitrate Urine Bilirubin Urine Urobilinogen Add Ur Microanalysis Leukocyte Esterase Rfl Urine RBC Urine WBC Ur Squamous Epith Cells Urine Bacteria Urine Casts Nasal MRSA (PCR) C. difficile (PCR) Quality VTE Prophylaxis VTE prophylaxis: pharmacologic ordered
[2024-06-24] MEDS: CEFEPIME 0.5 GM in DEXTROSE 5% IN WATER 50 ML IVPB ×2 (10:13→20:01)
--- NOTE | 2024-06-24 11:42 | P.PNNP_ITS ---
Progress Note: A&P Assessment and Plan (1) JOVI (acute kidney injury): Code(s): N17.9 - Acute kidney failure, unspecified Status: Acute Assessment and Plan: * no real significant improvement to date * normal creatinine ~ 1 month ago * admitted with a creatinine of 2.1mg/dl with ongoing worsening noted * due to multifactorial ATN: * hemodynamic instability/shock * sepsis * infection (UTI +/- pneumonia) -- although culture negative to date * hypoxia * other? * evaluation to date noted: * renal ultrasound negative for obstruction * urine eosinophils negative * urine electrolytes pre-renal (in spite of evidence of volume overload) * CPK low * moderate proteinuria (~ 600mg) * UA with blood and protein (and negative urine culture) * has been dialysis dependent since 06/05 * s/p daily dialysis alternating with DUF (except Sundays) to facilitate euvolemia * HD tomorrow and continue Tue/Tue/Tuesday schedule * s/p tunneled HD catheter placement on 06/22/24 * follow repeat labs and UOP to assess for potential renal recovery (2) Acute respiratory failure: Code(s): J96.00 - Acute respiratory failure, unspecified whether with hypoxia or hypercapnia Status: Acute Assessment and Plan: * intubated on 06/05 for impending respiratory failure * failed BiPAP therapy * ABG with noted hypercapnea and hypoxia * secondary to pulmonary edema, diffuse bilateral infiltrates and ARDS * on bronchodilators * weaned off steroids * continue dialyis/dry ultrafiltration for fluid removal * noted plans for tracheostomy and G-tube placement (3) Septic shock: Code(s): A41.9 - Sepsis, unspecified organism; R65.21 - Severe sepsis with septic shock Status: Acute Assessment and Plan: * initially thought to be secondary to UTI and pneumonia * was on levophed therapy to maintain MAP * weaned off and being used PRN * Echo results noted * continue midodrine * culture data noted: * blood/urine cultures from 06/02 negative * blood culture 06/06 with E. coli and Staph epidermidis * urine culture on 06/06 negative. * blood culture on 06/08 negative * follow repeat culture data * resumed on antibiotics due to fevers * follow trend of hemodynamics (4) Pulmonary edema: Code(s): J81.1 - Chronic pulmonary edema Status: Acute Assessment and Plan: * contributing to #2 * secondary to JOVI/ARF but ARDS an issues as well * failed diuretic therapy * HD/DUF for fluid removal * almost 22L negative since admission (5) C. difficile diarrhea: Code(s): A04.72 - Enterocolitis due to Clostridium difficile, not specified as recurrent Status: Acute Assessment and Plan: * currently on Dificid and IV Flagyl * CT abdomen pelvis pending (6) Afib: Code(s): I48.91 - Unspecified atrial fibrillation Status: Acute Assessment and Plan: * rate control stratgey * on amiodarone and Eliquis (7) Anemia: Code(s): D64.9 - Anemia, unspecified Status: Acute Assessment and Plan: * related to JOVI and acute/critical illness * KIRILL with HD * follow trend of H/H (8) Liver cirrhosis secondary to HOFFMANN: Code(s): K75.81 - Nonalcoholic steatohepatitis (HOFFMANN); K74.60 - Unspecified cirrhosis of liver Status: Acute Assessment and Plan: * known history * normal liver by recent imaging * noted elevations in AST/ALT that have been up and down * fluctuating LFTS thought to be more related to congestion/volume overload * continue to follow (9) Type 2 diabetes mellitus: Code(s): E11.9 - Type 2 diabetes mellitus without complications Status: Acute Assessment and Plan: * follow accu-cheks * glycemic control per marble cutter operator/hospitalist Will continue to follow. Subjective Date/time seen: 06/24/24 11:42 Interval history: Follow-up for acute kidney injury/acute renal failure with dialysis dependence. Developed diarrea and subsequently noted to be C. diff positive -- started on appropriate therapy; remains intubated/sedated with ongoing ventilator support; remains hemodynamically stable; low grade temperatures noted with a Tmax of 100.9?; minimal urine output noted. Exam Narrative: General: large female intubated/sedated on mechanical ventilator Heart: normal S1 and S2; no rub Lungs: coarse breath sounds; decreased at bases Abdomen: obese but soft, nontender, nondistended, positive bowel sounds Extremities: no cyanosis or clubbing; trace - 1+ edema Skin: warm and intact Objective Data Vital Signs Vital Signs: Vital Signs Temp Pulse Resp BP Pulse Ox O2 Del Method FiO2 06/24/24 10:30 76 96 Mechanical Ventilation 45 06/24/24 10:00 99.8 F H 78 25 H 129/82 95 06/24/24 10:00 79 26 H 06/24/24 10:00 79 26 H 06/24/24 10:00 80 06/24/24 08:00 70 06/24/24 08:21 70 06/24/24 08:00 55 06/24/24 08:00 71 24 H 94 Mechanical Ventilation 55 06/24/24 08:00 71 22 H 06/24/24 08:00 71 22 H 06/24/24 08:00 99.9 F H 71 17 125/68 95 06/24/24 08:10 71 22 H 06/24/24 08:02 69 21 H 06/24/24 08:02 69 94 Mechanical Ventilation 55 06/24/24 06:01 99.8 F H 73 23 H 119/59 L 94 06/24/24 06:00 73 24 H 06/24/24 06:00 73 24 H 06/24/24 06:00 73 06/24/24 04:00 71 06/24/24 04:00 Mechanical Ventilation 55 06/24/24 04:00 55 06/24/24 02:00 71 06/24/24 04:00 71 22 H 06/24/24 02:00 72 22 H 06/24/24 04:00 71 22 H 06/24/24 02:00 72 22 H 06/24/24 05:09 71 94 Mechanical Ventilation 55 06/24/24 04:29 99.7 F H 66 21 H 122/65 95 06/24/24 02:34 70 95 Mechanical Ventilation 55 06/24/24 02:34 70 21 H 06/24/24 02:13 126/64 06/24/24 00:00 73 06/24/24 00:00 55 06/24/24 00:00 Mechanical Ventilation 55 06/24/24 00:00 75 20 06/24/24 00:00 75 20 06/24/24 00:16 99.7 F H 73 21 H 128/62 95 06/23/24 21:20 83 21 H 06/23/24 23:20 73 94 Mechanical Ventilation 55 06/23/24 22:34 100.3 F H 75 28 H 114/57 L 93 06/23/24 22:00 78 20 06/23/24 22:00 78 20 06/23/24 22:00 78 06/23/24 21:44 82 06/23/24 20:00 75 06/23/24 21:10 83 94 Mechanical Ventilation 55 06/23/24 21:10 83 25 H 06/23/24 20:00 Mechanical Ventilation 55 06/23/24 20:00 55 06/23/24 20:00 75 20 06/23/24 20:00 75 20 06/23/24 20:00 75 20 06/23/24 20:00 75 20 06/23/24 20:01 100.5 F H 76 19 111/63 95 06/23/24 18:00 100.5 F H 77 20 119/65 95 06/23/24 18:00 77 06/23/24 18:00 77 20 06/23/24 16:00 84 22 H 06/23/24 18:00 77 20 06/23/24 16:00 84 22 H 06/23/24 17:01 78 95 Mechanical Ventilation 55 06/23/24 16:00 79 06/23/24 16:00 100.7 F H 84 22 H 133/75 95 06/23/24 16:00 55 06/23/24 16:00 95 Mechanical Ventilation 55 06/23/24 14:00 83 22 H 06/23/24 14:00 83 22 H 06/23/24 14:00 100.9 F H 83 22 H 119/62 96 06/23/24 14:00 83 06/23/24 13:38 83 25 H Intake/Output Intake/Output: Intake & Output 06/21/24 06/22/24 06/23/24 06/24/24 23:59 23:59 23:59 22:59 Intake Total 1241.3 236.8 1365.1 788.5 Output Total 15 4229 45 145 Balance 1226.3 -3992.2 1320.1 643.5 Meds/Results Medications: Active Medications Generic Name Dose Route Start Last Admin Trade Name Freq PRN Reason Stop Dose Admin Acetaminophen 650 mg 06/07/24 21:53 06/22/24 20:39 Acetaminophen Elixir 325 Mg/10.15 Ml Udc PO 650 mg Q6H PRN Administration Mild Pain (1-3) or Fever Albuterol/Ipratropium 3 ml 10/15/24 11:15 06/24/24 08:02 Ipratropium 0.5 Mg/Albuterol Sulfate 2.5 Mg Ampul.Neb 3 Ml INHALATION 3 ml Q6HRT JOHN Administration Amiodarone HCl 200 mg 06/02/24 21:00 06/24/24 08:21 Amiodarone Hcl 200 Mg Tablet PO 200 mg Q12HR JOHN Administration Dextrose 12.5 gm 06/05/24 11:46 Dextrose 50% 25 Gm/50 Ml Syringe IV PUSH PRN PRN Hypoglycemia Protocol Enoxaparin Sodium 30 mg 06/24/24 09:00 06/24/24 08:21 Enoxaparin 30 Mg/0.3 Ml Syringe SUB-Q 30 mg DAILY JOHN Administration Epoetin Shayan-epbx 10,000 units 06/18/24 09:00 06/22/24 09:28 Epoetin Shayan-Epbx 10,000 Units/Ml Vial IV PUSH 10,000 units MOWEFR@09 JOHN Administration Fidaxomicin 200 mg 06/24/24 01:35 SPORTS JOURNALIST 06/24/24 10:18 Fidaxomicin 200 Mg Tablet PO 200 mg Q12HR JOHN Administration Glucagon 1 mg 06/05/24 11:46 Glucagon For Inj 1 Mg Vial IM PRN PRN Hypoglycemia Protocol Glucose 15 gm 06/05/24 11:46 Glucose Oral Gel 15 Gm Of Glucse In 37.5 Gm Tube PO PRN PRN Hypoglycemia Protocol Dextrose 1,000 mls @ 100 mls/hr 06/05/24 11:46 Dextrose 5% 1,000 Ml IVPB PRN PRN Hypoglycemia Protocol Albumin Human 50 mls @ 999 mls/hr 06/08/24 09:50 06/12/24 11:39 Albutein IVPB 07/08/24 09:49 Infused Q10M PRN Infusion HYPOTENSION Fentanyl Citrate 2,500 mcg in 250 mls @ 0.5 mls/hr 06/21/24 09:40 06/24/24 12:00 Fentanyl 2,500 Mcg/Ns 250 Ml IV CONT 50 mcg/hr .Q72H JONH 5 mls/hr Titration Protocol 5 MCG/HR Midazolam HCl 100 mg in 100 mls @ 2 mls/hr 06/21/24 09:45 06/24/24 12:00 Versed 100 Mg/Ns 100 Ml IV CONT 2 mg/hr .Q50H JOHN 2 mls/hr Titration Protocol 2 MG/HR Cefazolin Sodium 100 mls @ 200 mls/hr 06/25/24 12:00 Ancef 3 Gm/D5w 100 Ml IVPB 06/25/24 12:29 ONCE ONE Metronidazole 500 mg in 100 mls @ 100 mls/hr 06/24/24 07:55 06/24/24 09:45 Flagyl 500 Mg/Iso Soln 100 Ml IVPB Infused Q8HR JOHN Infusion Cefepime HCl 0.5 gm/ Dextrose 50 mls @ 100 mls/hr 06/24/24 09:00 06/24/24 10:54 IVPB Infused Q12H JOHN Infusion Insulin Aspart 3 - 6 units 06/05/24 12:00 06/24/24 12:02 Insulin Aspart (*Bkc) 100 Units/Ml SUB-Q Not Given Q6HR [facility] Protocol Midodrine 10 mg 06/17/24 22:00 06/24/24 05:24 Midodrine Hcl 10 Mg Tablet PO 10 mg Q8H JOHN Administration Multi-Ingred Cream/Lotion/Oil/Oint 1 applic 06/05/24 09:00 06/24/24 08:21 Mineral Oil/White Petrolatum Ointment EACH EYE 1 applic Q12HR JOHN Administration Ondansetron HCl 4 mg 06/11/24 07:47 06/23/24 21:44 Ondansetron Inj 4 Mg/2 Ml Vial IV PUSH 4 mg Q6H PRN Administration Nausea And Vomiting Pantoprazole Sodium 40 mg 06/06/24 09:00 06/24/24 08:22 Pantoprazole Sodium Iv 40 Mg Vial IV PUSH 40 mg Q12HR JOHN Administration Umeclidinium Vass 1 puff 06/03/24 08:00 06/14/24 12:38 Umeclidinium Vass 62.5 Mcg Ellipta INHALATION Not Given DAILYRT JOHN Vancomycin HCl 1 each 06/23/24 09:17 Vancomycin For Hemodialysis IVPB PRN PRN Vancomycin Protocol Radiology Results: ITS Impressions Renal Ultrasound 06/04/24 15:06 IMPRESSION: 1. Normal kidneys. No hydronephrosis. Abdomen Ultrasound 06/10/24 14:47 IMPRESSION: Fat infiltration. Enlarged left lobe of the liver. Slightly thickened wall of the gallbladder. Trace of ascites. Otherwise, normal Limited ultrasound of the abdomen. Abdomen X-Ray 06/16/24 13:54 IMPRESSION: 1. Nasogastric tube tip in the stomach. 2. Nonobstructive bowel gas pattern. 3. Diffuse lung disease, consistent with pulmonary edema versus pneumonia. 4. Cardiomegaly. Venous Doppler Study 06/17/24 11:49 IMPRESSION: 1. No deep venous thrombosis. Central Venous Line 06/22/24 14:36 IMPRESSION: 1. Right internal jugular central venous catheter tip at the caudal superior vena cava. Chest X-Ray 06/24/24 07:06 IMPRESSION: 1. Unchanged opacities in the left mid to lower lung zone which could represent atelectasis or pneumonia. 2. Cardiomegaly with interval improvement in prior pulmonary vascular congestion. Labs Labs: Laboratory Tests 06/24/24 03:28 06/24/24 03:28 Calcium 10.1 Phosphorus 4.1 Magnesium 2.5 H Total Bilirubin 1.2 AST 140 H ALT 31 Alkaline Phosphatase 304 H Total Protein 7.0 Albumin 3.3 L Microbiology 06/23/24 00:18 Sputum Sputum Culture - Preliminary 06/22/24 22:22 Blood Blood Culture - Preliminary 06/22/24 22:22 Blood Blood Culture - Preliminary
[2024-06-24 11:53] LABS: Glucose Point of Care 130 mg/dl (65-105)
[2024-06-24] MEDS: ACETAMINOPHEN ELIXIR 325 MG/10.15 ML UDC 650 MG PO ×2 (13:14→20:17)
[2024-06-24 17:31] LABS: Glucose Point of Care 102 mg/dl (65-105)
[2024-06-25] VITALS (45 sets, daily range): BP systolic 92–130; BP diastolic 52–97; PULSE 67–76; RESP 16–28; TEMP 37–38.1; O2SAT 90–97
[2024-06-25 00:07] LABS: Glucose Point of Care 105 mg/dl (65-105)
[2024-06-25] MEDS: IPRATROPIUM 0.5 MG/ALBUTEROL SULFATE 2.5 MG AMPUL.NEB 3 ML INHALATION ×4 (01:55→21:14)
[2024-06-25 05:22] LABS: Alveolar/Arterial O2 Gradient 116.4 mmHg; Arterial Blood Gas Ventilator rate 20 /MIN; Base Excess ABG -0.5 mEq/l (+/-2.0); Device VENTILATOR; Fractional Inspired Oxygen 35 %; HCO3 ABG 24.6 mEq/l (22.0-26.0); Modified Allen's Test Unable to perform; Oxygen Content ABG 14.3 %vol (16.0-22.0); Oxygen Saturation ABG 96.1 % (95.0-100.0); Oxyhemoglobin 95.6 % THb (90.0-100.0); PCO2 ABG 42.4 mmHg (35.0-45.0); PO2 ABG 83.9 mmHg (80.0-100.0); Site Drawn RIGHT RADIAL; Total Hemoglobin 10.6 g/dL (12.0-18.0); pH ABG 7.382 (7.350-7.450)
[2024-06-25 05:23] LABS: Basophils Absolute Auto 0.1 K/mm3 (0.0-0.1); Eosinophils Absolute Auto 0.5 K/mm3 (0-0.3); Eosinophils Percent Auto 3.9 % (0-4.4); Hematocrit 31.8 % (37.0-47.0); Hemoglobin 9.6 g/dL (12.0-15.0); Immature Granulocyte Absolute 0.19 K/mm3 (0.00-0.031); Immature Granulocyte Percent A 1.6 % (0-0.5); Lymphocytes Absolute Auto 1.88 K/mm3 (0.9-3.2); Lymphocytes Percent Auto 15.3 % (18.3-44.2); Mean Corpuscular HGB Conc 30.2 g/dl (32-36); Mean Corpuscular Hemoglobin 26.6 pg (26-34); Mean Corpuscular Volume 88.1 fl (80-100); Mean Platelet Volume 10.7 fl (7.4-10.4); Monocytes Absolute Auto 1.9 K/mm3 (0.1-0.6); Monocytes Percent Auto 15.2 % (2.6-8.5); Neutrophils Absolute Auto 7.7 K/mm3 (1.3-6.7); Nucleated Red Blood Cells Perc 0.2 % (0.0-0.2); Platelet Count Result 257 k/mm3 (150-375); Red Blood Count 3.61 M/mm3 (4.2-5.4); Red Cell Distribution Width 19.7 % (11.5-14.5); White Blood Count 12.3 K/mm3 (4.5-10.0)
[2024-06-25 05:23] LABS: Arterial Blood Gas PEEP 10 cmH2O; Arterial Blood Gas Tidal Volume 400 ml; Arterial Blood Gas Vent Mode CMV
[2024-06-25 05:33] LABS: INR 1.3; Prothrombin Time 16.6 Seconds (11.1-14.7)
[2024-06-25] MEDS: MIDODRINE HCL 10 MG TABLET PO ×3 (05:34→22:00)
[2024-06-25] MEDS: metroNIDAZOLE 500 MG/ISO 100ML 500 MG/100 ML BAG 100 MG IVPB ×3 (05:34→22:00)
[2024-06-25 05:36] LABS: Alanine Aminotransferase 26 U/L (6-35); Albumin Level 3.3 g/dL (3.5-5.1); Alkaline Phosphatase 293 U/L (38-126); Anion Gap 19 mmol/L (4-12); Aspartate Amino Transferase 170 U/L (14-36); Bilirubin,Total 1.5 mg/dL (0.2-1.3); Blood Urea Nitrogen 103 mg/dL (7-17); Carbon Dioxide 21 mmol/L (22-30); Chloride 97 mmol/L (98-107); Glucose 89 mg/dL (65-110); Magnesium 2.7 mg/dL (1.6-2.3); Phosphorus 4.9 mg/dL (2.5-4.5); Potassium 4.1 mmol/L (3.4-5.0); Sodium 137 mmol/L (137-145)
[2024-06-25 05:41] LABS: Vancomycin Random 19.5 ug/mL (10-20)
[2024-06-25 05:44] LABS: Estimated CRCL calculation 14 ml/min; Estimated Glomerular Filt Rate 7
--- NOTE | 2024-06-25 07:25 | P.CONS_ITS ---
Assessment and Plan Assessment and plan (1) Acute respiratory failure: Code(s): J96.00 - Acute respiratory failure, unspecified whether with hypoxia or hypercapnia Status: Acute Assessment and Plan: This patient has respiratory failure, in ICU and on ventilator. Plan for tracheostomy today in the OR, feeding tube placement to follow with general surgery. Family has agreed to this procedure and consented. HPI Data of Consult Date/Time: 06/25/24 07:25 Requesting Physician: Waqar Reina MD Primary Care Provider: Nury Martinez, PICK PACK WORKER Consult Narrative Reason for consult: respiratory failure Narrative: Ariana Spring is a 54 year old female admitted to ICU with respiratory failure and has been intubated and unable to get off ventilator for some time, ENt consulted for trach placement after discussion with POA and family. Review of Systems 2 Review of Systems: All systems reviewed & are unremarkable except as noted in HPI and below PMFSH Past Medical History Medical History Asthma Per patient report but PFTs within our system demonstrated restrictive lung disease not obstructive Atrial fibrillation Chronic respiratory failure with hypoxia and hypercapnia On 3 L nasal cannula home. Intolerant BiPAP. Depression Essential hypertension GERD (gastroesophageal reflux disease) Hyperparathyroidism Liver cirrhosis secondary to HOFFMANN Migraines Morbid obesity with body mass index (BMI) greater than or equal to 50 Obstructive sleep apnea Intolerant of BiPAP Restrictive lung disease Restrictive lung disease noted on PFTs within the old record system. No mention of obstructive disease on that pulmonary function testing SLE (systemic lupus erythematosus) Reportedly with mostly skinaffects Surgical History Surgical History History of appendectomy Status post cardiac pacemaker procedure Complicated by perforation of the myocardium requiring subsequent open heart surgery performed at [facility] Family History Family History Mother Hypertension Heart attack Social History Social History Smoking packs per day: 0.5 Smoking cigarettes per day: 10.0 Years smoked: 20 Smoking pack-years: 10.00 Smoking status: Former smoker Tobacco type: cigarettes Second hand tobacco smoke exposure: Yes ( smokes in home) Smoking end date: 08/22/07 Additional smoking assessment comments: 2 years since last smoked. Alcohol intake: never Substance use: never Substance use type: does not use Do You Feel Safe in your Home?: Yes Lack of Transportation: No Lack of Food: Never True Current Housing: I Have Housing Concerned About Future Housing: No Difficulty Paying Gas/Electric Bills: No Difficulty Paying for Meds: No Currently Unemployed: No Education: High School Diploma/GED Difficulty w/ Childcare or Family Care: No Spiritual care concerns: No Meds Home Medications and Allergies Home Medications Medication Instructions Recorded Confirmed Type amiodarone 200 mg tablet 200 mg PO BID 11/26/23 06/02/24 History apixaban 5 mg tablet (Eliquis) 5 mg PO BID 11/26/23 06/02/24 History dapagliflozin propanediol 5 mg 5 mg PO DAILY 11/26/23 06/02/24 History tablet (Farxiga) famotidine 20 mg tablet 20 mg PO BID 11/26/23 06/02/24 History flecainide 100 mg tablet 100 mg PO BID 11/26/23 06/02/24 History furosemide 40 mg tablet 40 mg PO BID 11/26/23 06/02/24 History gabapentin 100 mg capsule 200 mg PO TID 11/26/23 06/02/24 History magnesium oxide 400 mg (241.3 mg 400 mg PO BID 11/26/23 06/02/24 History magnesium) tablet metoprolol tartrate 25 mg tablet 25 mg PO BID 11/26/23 06/02/24 History potassium chloride 20 mEq 40 meq PO BID 11/26/23 06/02/24 History tablet,extended release(part/cryst) albuterol sulfate 90 mcg/actuation 2 puff inhalation Q4H PRN 06/02/24 06/02/24 History aerosol inhaler Shortness Of Breath ergocalciferol (vitamin D2) 1,250 50,000 unit PO WEEKLY 06/02/24 06/02/24 History mcg (50,000 unit) capsule fluticasone 250 mcg-salmeterol 50 1 inh inhalation BID 06/02/24 06/02/24 History mcg/dose blistr powdr for inhalation (Advair Diskus) tiotropium bromide 2.5 2 puff inhalation DAILY 06/02/24 06/02/24 History mcg/actuation mist for inhalation (Spiriva Respimat) Allergies Allergy/AdvReac Type Severity Reaction Status Date / Time oxycodone [From Percocet] Allergy Intermediate Hives Verified 06/02/24 11:46 Penicillins Allergy Intermediate Hives Verified 06/08/24 09:49 Vital Signs Vital Signs - 24 hr 06/24/24 08:02 06/24/24 08:02 06/24/24 08:10 Temperature Pulse Rate 69 69 71 Respiratory Rate 21 H 22 H Blood Pressure Pulse Oximetry 94 Oxygen Delivery Mechanical Ventilation Fraction of Inspired Oxygen 55 06/24/24 08:00 06/24/24 08:00 06/24/24 08:00 Temperature 37.7 C H Pulse Rate 71 71 71 Respiratory Rate 17 22 H 22 H Blood Pressure 125/68 Pulse Oximetry 95 Oxygen Delivery Fraction of Inspired Oxygen 06/24/24 08:00 06/24/24 08:00 06/24/24 08:21 Temperature Pulse Rate 71 70 Respiratory Rate 24 H Blood Pressure Pulse Oximetry 94 Oxygen Delivery Mechanical Ventilation Fraction of Inspired Oxygen 55 55 06/24/24 08:00 06/24/24 10:00 06/24/24 10:00 Temperature Pulse Rate 70 80 79 Respiratory Rate 26 H Blood Pressure Pulse Oximetry Oxygen Delivery Fraction of Inspired Oxygen 06/24/24 10:00 06/24/24 10:00 06/24/24 09:13 Temperature 37.7 C H Pulse Rate 79 78 74 Respiratory Rate 26 H 25 H Blood Pressure 129/82 Pulse Oximetry 95 97 Oxygen Delivery Mechanical Ventilation Fraction of Inspired Oxygen 55 06/24/24 10:30 06/24/24 11:56 06/24/24 11:57 Temperature Pulse Rate 76 78 Respiratory Rate 35 H Blood Pressure Pulse Oximetry 96 96 Oxygen Delivery Mechanical Ventilation Mechanical Ventilation Fraction of Inspired Oxygen 45 45 45 06/24/24 12:00 06/24/24 12:00 06/24/24 12:00 Temperature 38.0 C H Pulse Rate 78 79 81 Respiratory Rate 23 H 26 H 26 H Blood Pressure 140/66 Pulse Oximetry 96 Oxygen Delivery Fraction of Inspired Oxygen 06/24/24 12:00 06/24/24 13:14 06/24/24 13:25 Temperature 38.2 C H Pulse Rate 82 81 Respiratory Rate Blood Pressure Pulse Oximetry 96 Oxygen Delivery Mechanical Ventilation Fraction of Inspired Oxygen 45 06/24/24 13:25 06/24/24 13:34 06/24/24 14:00 Temperature Pulse Rate 81 78 81 Respiratory Rate 24 H 25 H Blood Pressure Pulse Oximetry Oxygen Delivery Fraction of Inspired Oxygen 06/24/24 14:00 06/24/24 14:00 06/24/24 14:00 Temperature 38.3 C H Pulse Rate 80 81 81 Respiratory Rate 29 H 25 H 25 H Blood Pressure 138/63 Pulse Oximetry 95 Oxygen Delivery Fraction of Inspired Oxygen 06/24/24 14:14 06/24/24 16:00 06/24/24 16:00 Temperature 38.3 C H Pulse Rate 75 75 Respiratory Rate 28 H 28 H Blood Pressure Pulse Oximetry Oxygen Delivery Fraction of Inspired Oxygen 06/24/24 16:00 06/24/24 16:00 06/24/24 16:00 Temperature Pulse Rate 75 74 Respiratory Rate 24 H Blood Pressure Pulse Oximetry 96 Oxygen Delivery Mechanical Ventilation Fraction of Inspired Oxygen 45 45 06/24/24 16:00 06/24/24 16:57 06/24/24 18:00 Temperature 38.5 C H 38.2 C H Pulse Rate 74 79 73 Respiratory Rate 27 H 31 H Blood Pressure 123/55 L 118/61 Pulse Oximetry 96 95 96 Oxygen Delivery Mechanical Ventilation Fraction of Inspired Oxygen 40 06/24/24 18:00 06/24/24 18:00 06/24/24 18:00 Temperature Pulse Rate 72 73 72 Respiratory Rate 28 H 28 H Blood Pressure Pulse Oximetry Oxygen Delivery Fraction of Inspired Oxygen 06/24/24 20:00 06/24/24 20:12 06/24/24 20:12 Temperature Pulse Rate 70 71 71 Respiratory Rate 21 H Blood Pressure Pulse Oximetry 97 Oxygen Delivery Mechanical Ventilation Fraction of Inspired Oxygen 40 06/24/24 20:18 06/24/24 20:00 06/24/24 20:00 Temperature 38.1 C H Pulse Rate 71 72 72 Respiratory Rate 22 H 24 H Blood Pressure 135/67 Pulse Oximetry 97 Oxygen Delivery Fraction of Inspired Oxygen 06/24/24 20:00 06/24/24 20:00 06/24/24 20:00 Temperature Pulse Rate 72 Respiratory Rate 24 H 24 H Blood Pressure Pulse Oximetry 97 Oxygen Delivery Mechanical Ventilation Fraction of Inspired Oxygen 45 45 06/24/24 20:00 06/24/24 22:00 06/24/24 22:00 Temperature 38.1 C H Pulse Rate 72 71 71 Respiratory Rate 24 H 23 H Blood Pressure 127/65 Pulse Oximetry 96 Oxygen Delivery Fraction of Inspired Oxygen 06/24/24 22:00 06/24/24 22:00 06/24/24 23:04 Temperature Pulse Rate 72 72 69 Respiratory Rate 23 H 23 H Blood Pressure Pulse Oximetry 97 Oxygen Delivery Mechanical Ventilation Fraction of Inspired Oxygen 40 06/25/24 00:00 06/25/24 00:00 06/25/24 00:00 Temperature Pulse Rate 69 69 Respiratory Rate 21 H 21 H 21 H Blood Pressure Pulse Oximetry 97 Oxygen Delivery Mechanical Ventilation Fraction of Inspired Oxygen 45 06/25/24 00:00 06/25/24 00:00 06/24/24 20:17 Temperature 38.1 C H 38.2 C H Pulse Rate 69 Respiratory Rate 21 H Blood Pressure 127/64 Pulse Oximetry 97 Oxygen Delivery Fraction of Inspired Oxygen 45 06/25/24 00:28 06/25/24 00:00 06/25/24 01:55 Temperature 38.1 C H Pulse Rate 69 68 Respiratory Rate 23 H Blood Pressure Pulse Oximetry Oxygen Delivery Fraction of Inspired Oxygen 06/25/24 01:56 06/25/24 02:00 06/25/24 02:00 Temperature Pulse Rate 68 68 68 Respiratory Rate 22 H Blood Pressure Pulse Oximetry 97 Oxygen Delivery Mechanical Ventilation Fraction of Inspired Oxygen 40 06/25/24 02:00 06/25/24 02:00 06/25/24 02:00 Temperature 38.0 C H Pulse Rate 68 68 68 Respiratory Rate 22 H 22 H 22 H Blood Pressure 117/59 L Pulse Oximetry 95 Oxygen Delivery Fraction of Inspired Oxygen 06/25/24 02:30 06/25/24 03:18 06/25/24 03:24 Temperature Pulse Rate 72 Respiratory Rate 26 H 26 H Blood Pressure Pulse Oximetry 95 Oxygen Delivery Mechanical Ventilation Fraction of Inspired Oxygen 35 45 06/25/24 04:00 06/25/24 04:00 06/25/24 04:00 Temperature 38.0 C H Pulse Rate 71 71 71 Respiratory Rate 22 H 22 H 22 H Blood Pressure 114/57 L Pulse Oximetry 96 Oxygen Delivery Fraction of Inspired Oxygen 06/25/24 04:00 06/25/24 05:12 06/25/24 06:00 Temperature 37.9 C H Pulse Rate 71 70 72 Respiratory Rate 28 H Blood Pressure 117/55 L Pulse Oximetry 95 96 Oxygen Delivery Mechanical Ventilation Fraction of Inspired Oxygen 35 06/25/24 06:00 06/25/24 06:00 06/25/24 06:00 Temperature Pulse Rate 72 72 72 Respiratory Rate 28 H 28 H Blood Pressure Pulse Oximetry Oxygen Delivery Fraction of Inspired Oxygen Exam Narrative: Morbidly obese, trachea midline, no cervical adenopathy. Pt sedated and on ventilator. Exam otherwise unremarkable from ENT standpoint. Results Labs 06/25/24 05:15 06/25/24 05:15 Labs: Short CBC 06/25/24 Range/Units 05:15 WBC 12.3 H (4.5-10.0) K/mm3 Hgb 9.6 L (12.0-15.0) g/dL Hct 31.8 L (37.0-47.0) % Plt Count 257 (150-375) k/mm3 BMP 06/25/24 05:15 Sodium 137 Potassium 4.1 Chloride 97 L Carbon Dioxide 21 L BUN 103 H D Creatinine 6.10 H Glucose 89 Calcium 10.0 Liver Function 06/25/24 Range/Units 05:15 Total Bilirubin 1.5 H (0.2-1.3) mg/dL AST 170 H (14-36) U/L ALT 26 (6-35) U/L Alkaline Phosphatase 293 H (38-126) U/L Albumin 3.3 L (3.5-5.1) g/dL
[2024-06-25] MEDS: AMIODARONE HCL 200 MG TABLET PO ×2 (08:23→20:21)
[2024-06-25] MEDS: MINERAL OIL/WHITE PETROLATUM OINTMENT 1 APPLIC EACH EYE ×2 (08:24→20:21)
[2024-06-25] MEDS: FIDAXOMICIN 200 MG TABLET PO ×2 (08:24→20:27)
--- NOTE | 2024-06-25 08:55 | P.PNINT_ITS ---
Progress Note: A&P Assessment and Plan (1) Acute respiratory failure: Code(s): J96.00 - Acute respiratory failure, unspecified whether with hypoxia or hypercapnia Status: Acute Assessment and Plan: Chest x-ray bilateral diffuse pulmonary infiltrates/pulmonary edema. Patient was placed on BiPAP. ABG showed hypercapnic and hypoxemic respiratory failure. Etiology pulmonary edema, pneumonia, ARDS -06/05: patient intubated for impending respiratory failure. Intubation was slightly challenging secondary to body habitus, small mouth, large tongue, redundant tissue in the hypopharynx and anterior vocal cords requiring cricoid pressure and use of glide scope. CT chest 06/17 IMPRESSION: 1. Diffuse lung disease, consistent with pulmonary edema versus pneumonia versus acute respiratory distress syndrome. 2. Cardiomegaly. 3. Small volume of ascites. -currently on CMV mode of ventilation, currently on PEEP down to 8, 55% FiO2, -chest x-ray reviewed and shows improvement although still has diffuse bilateral infiltrates although there has been improvement -continue bronchodilators - fentanyl and Versed infusion for analgosedation, will maintain RASS of -2 -patient has significant volume overload and need additional fluid removed patient is being dialyzed again today. -patient has failed her PSV trials multiple times and is not close to showing any signs of weaning - 06/19: Discussed with patient's sister who is the POA and patient's son, they they requested and agreeable for tracheostomy and PEG tube placement -ENT as scheduled tracheostomy placement for 06/25/2024 -GI cannot place the PEG tube due to patient's body habitus as well as enlarged liver. Surgery will place G-tube on 06/22/2024. (2) Septic shock: Code(s): A41.9 - Sepsis, unspecified organism; R65.21 - Severe sepsis with septic shock Status: Acute Assessment and Plan: Septic shock could be related to UTI, pneumonia -patient was hypotensive in the intermediate Unit and was transferred to the ICU which she received fluids, albumin -continue norepinephrine as needed to maintain mean arterial pressure. Currently off -off vancomycin -completed cefepime for a total of 7 days -off stress dose steroids -continue midodrine -06/17: CT chest abdomen and pelvis for ongoing leukocytosis and vasopressor requirement. Will also obtain right lower extremity venous Dopplers since patient has a right lower extremity is erythematous, slightly swollen. 06/05/2024: Echocardiogram Summary 1. Left ventricular chamber dimension is normal. 2. Left ventricular systolic function is normal, estimated at 65-70%. 3. The left ventricular diastolic function is grade I diastolic dysfunction. 4. Right ventricular chamber dimension is moderately enlarged. 5. Right ventricular systolic function is normal. 6. Left atrial chamber dimension is moderately enlarged. 7. Right atrial chamber dimension is moderately enlarged. 8. There is mild to moderate tricuspid valve regurgitation. 11/ overnight patient had a increase in WBC count and high-grade fevers Increased FiO2 requirement and increased endotracheal suction Procalcitonin level 4.9 Lai catheter was changed, UA suggestive of UTI and urine culture is growing Enterococcus Sputum and blood culture ordered CT scan showed - Diffuse patchy bilateral pulmonary ground glass infiltrates suggesting pneumonitis, less likely small airways disease Prominent bilateral lower lobe atelectasis with air bronchograms suggestive of pneumonia Patient also had diarrhea and tested positive for C diff Continue vancomycin, cefepime and Flagyl. Dificid added for C diff Lipase also elevated at 478. Tube feeds on hold (3) JOVI (acute kidney injury): Code(s): N17.9 - Acute kidney failure, unspecified Status: Acute Assessment and Plan: Patient with acute kidney injury, with increase creatinine to 4.60 (creatinine on admission on 06/02/2024 was 2.10 and her creatinine on 04/26/2024 was 0.90) -etiology for acute kidney injury could be multifactorial, hypotension, shock, sepsis, UTI/pneumonia, hypoxia,? SLE flare, CHF, -CK levels are within normal limits -urine eosinophils were negative -urine electrolytes showed prerenal picture, patient seems to be volume overload ed -status post given IV fluids and albumin, will hold fluids for now -discussed with confidential secretary at [facility], feels that the patient is unstable to be transferred at this time for CRRT, recommended conventional dialysis. -discussed with project management at [facility], agrees to conventional dialysis at this time -06/05: dialysis catheter was placed in the right IJ and exchange for the central line -06/05: Initiated dialysis, with 3000 mL of fluid removal -06/06: Dialysis with 3000 mL in fluid removal -06/07: Dialysis with 3700 mL in fluid removal -06/08: Dialysis with 2900 mL in fluid removal -06/09: Dialysis with 3000 mL in fluid removal -06/10: No dialysis -06/12: Patient was dialyzed and 3.1 P L fluid was removed -06/13 getting dialyzed again today. 4 L removed - 06/14: 3000 mL removed - 06/15: 4000 mL fluid was removed - 06/16: 4000 mL in fluid removal with dialysis - 06/18: 4000 ml in fluid removal - 06/20: 4000 mL in fluid removal - 06/22: Patient is getting dialyzed again today 4 L fluid removed Underwent tunneled dialysis catheter placement on 06/22/202406/25: Scheduled for dialysis today (4) Pulmonary edema: Code(s): J81.1 - Chronic pulmonary edema Status: Acute Assessment and Plan: Pulmonary edema likely related to acute kidney injury, ARDS, -did not respond to Bumex -continue fluid removal with dialysis (5) Type 2 diabetes mellitus: Code(s): E11.9 - Type 2 diabetes mellitus without complications Status: Acute Assessment and Plan: SSI and accucheks HbA1C is 5.7 this admission (6) Afib: Code(s): I48.91 - Unspecified atrial fibrillation Status: Acute Assessment and Plan: continue amiodarone -Eliquis currently on hold for procedures - flecainide was stopped (7) SLE (systemic lupus erythematosus): Code(s): M32.9 - Systemic lupus erythematosus, unspecified Status: Acute Assessment and Plan: Off steroids (8) Liver cirrhosis secondary to HOFFMANN: Code(s): K75.81 - Nonalcoholic steatohepatitis (HOFFMANN); K74.60 - Unspecified cirrhosis of liver Status: Acute Assessment and Plan: Continues to have mild elevation in LFTs and bilirubin which is stable 06/10/2024: RUQ ultrasound: Fat infiltration. Enlarged left lobe of the liver. Slightly thickened wall of the gallbladder. Trace of ascites. Otherwise, normal Limited ultrasound of the abdomen. -06/10/2024: Hepatitis panel is negative -continue to monitor (9) GERD (gastroesophageal reflux disease): Code(s): K21.9 - Gastro-esophageal reflux disease without esophagitis Status: Acute Assessment and Plan: Continue Protonix (10) Morbid obesity with BMI of 50.0-59.9, adult: Code(s): E66.01 - Morbid (severe) obesity due to excess calories; Z68.43 - Body mass index [BMI] 50.0-59.9, adult Status: Acute Assessment and Plan: Once extubated she will need lifestyle changes (11) Pancreatitis: Code(s): K85.90 - Acute pancreatitis without necrosis or infection, unspecified Status: Acute Assessment and Plan: Lipase elevated CT abdomen pelvis and a crit remarkable On hold tube feeds at this time for surgery (12) C. difficile diarrhea: Code(s): A04.72 - Enterocolitis due to Clostridium difficile, not specified as recurrent Status: Acute Assessment and Plan: Continue Dificid and IV Flagyl CT abdomen pelvis reviewed and shows no media: Plan DVT prophylaxis: Eliquis on hold for procedures. Continue Lovenox for DVT prophylaxis Stress ulcer prophylaxis: Protonix Nutrition: Tube feeds on hold Code Status: Full code Critical Care Time Spent: 30 minutes Due to a high probability of clinically significant, life threatening deterioration, the patient required my highest level of preparedness to intervene emergently and I personally spent this critical care time directly and personally managing the patient. This critical care time included obtaining a history; examining the patient; pulse oximetry; ordering and review of studies; arranging urgent treatment with development of a management plan; evaluation of patient's response to treatment; frequent reassessment; and discussions with other providers. It was exclusive of separately billable procedures and treating other patients and teaching time. Please see Assessment and Plan section and the rest of the note for further information on patient assessment and treatment This dictation may have been done utilizing a voice recognition system. Attempts have been made to correct errors. However, there may be uncorrected grammatical, spelling, and recognitions errors present Subjective Date/time seen: 06/25/24 Overnight events reviewed. Low-grade fevers Continues to be on mechanical ventilation 35% FiO2 8 of PEEP. No significant urine output Tube feeds on hold Other Vitals acceptable Interval history: Reason for consult: Acute respiratory failure, septic shock, acute kidney injury, pulmonary edema 06/05: Intubated and hemodialysis initiated 06/22: Tunneled dialysis catheter placed Review of Systems Review of Systems: ROS unobtainable: Yes unobtainable due to endotracheal tube, unobtainable due to medical condition and unobtainable due to mental status Exam Narrative: General: Morbidly obese female currently intubated and sedated in no acute distress HEENT:? Pupils equal and reactive bilaterally, sclera is clear, ETT in place Neck:, short and thick neck, Respiratory:? Decreased and coarse breath sounds bilaterally, no wheezing, Cardiac:? S1-S2 is normal, regular rate and rhythm Abdomen:? Morbid obesity, soft, hypoactive bowel sounds tenderness in right upper quadrant Extremities:? Bilateral lower extremity pitting edema improving, wrinkling of skin on the feet are noted, palpable pedal pulses. Right calf is warm, erythematous, nontender Neuro:? Patient is intubated, sedated, opens her eyes, follows simple commands in all extremities and nods to questions Skin:? Erythema in the intertriginous region and under her pannus, skin is dry and warm Psych:? Unable to assess at this time Objective Data Vital Signs Vital Signs: Vital Signs - 24 hr 06/24/24 10:00 06/24/24 10:00 06/24/24 10:00 Temperature Pulse Rate 80 79 79 Respiratory Rate 26 H 26 H Blood Pressure Pulse Oximetry Oxygen Delivery Fraction of Inspired Oxygen 06/24/24 10:00 06/24/24 09:13 06/24/24 10:30 Temperature 37.7 C H Pulse Rate 78 74 76 Respiratory Rate 25 H Blood Pressure 129/82 Pulse Oximetry 95 97 96 Oxygen Delivery Mechanical Ventilation Mechanical Ventilation Fraction of Inspired Oxygen 55 45 06/24/24 11:56 06/24/24 11:57 06/24/24 12:00 Temperature 38.0 C H Pulse Rate 78 78 Respiratory Rate 35 H 23 H Blood Pressure 140/66 Pulse Oximetry 96 96 Oxygen Delivery Mechanical Ventilation Fraction of Inspired Oxygen 45 45 06/24/24 12:00 06/24/24 12:00 06/24/24 12:00 Temperature Pulse Rate 79 81 82 Respiratory Rate 26 H 26 H Blood Pressure Pulse Oximetry Oxygen Delivery Fraction of Inspired Oxygen 06/24/24 13:14 06/24/24 13:25 06/24/24 13:25 Temperature 38.2 C H Pulse Rate 81 81 Respiratory Rate 24 H Blood Pressure Pulse Oximetry 96 Oxygen Delivery Mechanical Ventilation Fraction of Inspired Oxygen 45 06/24/24 13:34 06/24/24 14:00 06/24/24 14:00 Temperature 38.3 C H Pulse Rate 78 81 80 Respiratory Rate 25 H 29 H Blood Pressure 138/63 Pulse Oximetry 95 Oxygen Delivery Fraction of Inspired Oxygen 06/24/24 14:00 06/24/24 14:00 06/24/24 14:14 Temperature 38.3 C H Pulse Rate 81 81 Respiratory Rate 25 H 25 H Blood Pressure Pulse Oximetry Oxygen Delivery Fraction of Inspired Oxygen 06/24/24 16:00 06/24/24 16:00 06/24/24 16:00 Temperature Pulse Rate 75 75 75 Respiratory Rate 28 H 28 H Blood Pressure Pulse Oximetry Oxygen Delivery Fraction of Inspired Oxygen 06/24/24 16:00 06/24/24 16:00 06/24/24 16:00 Temperature 38.5 C H Pulse Rate 74 74 Respiratory Rate 24 H 27 H Blood Pressure 123/55 L Pulse Oximetry 96 96 Oxygen Delivery Mechanical Ventilation Fraction of Inspired Oxygen 45 45 06/24/24 16:57 06/24/24 18:00 06/24/24 18:00 Temperature 38.2 C H Pulse Rate 79 73 72 Respiratory Rate 31 H Blood Pressure 118/61 Pulse Oximetry 95 96 Oxygen Delivery Mechanical Ventilation Fraction of Inspired Oxygen 40 06/24/24 18:00 06/24/24 18:00 06/24/24 20:00 Temperature Pulse Rate 73 72 70 Respiratory Rate 28 H 28 H Blood Pressure Pulse Oximetry Oxygen Delivery Fraction of Inspired Oxygen 06/24/24 20:12 06/24/24 20:12 06/24/24 20:18 Temperature Pulse Rate 71 71 71 Respiratory Rate 21 H 22 H Blood Pressure Pulse Oximetry 97 Oxygen Delivery Mechanical Ventilation Fraction of Inspired Oxygen 40 06/24/24 20:00 06/24/24 20:00 06/24/24 20:00 Temperature 38.1 C H Pulse Rate 72 72 Respiratory Rate 24 H 24 H Blood Pressure 135/67 Pulse Oximetry 97 97 Oxygen Delivery Mechanical Ventilation Fraction of Inspired Oxygen 45 06/24/24 20:00 06/24/24 20:00 06/24/24 20:00 Temperature Pulse Rate 72 72 Respiratory Rate 24 H 24 H Blood Pressure Pulse Oximetry Oxygen Delivery Fraction of Inspired Oxygen 45 06/24/24 22:00 06/24/24 22:00 06/24/24 22:00 Temperature 38.1 C H Pulse Rate 71 71 72 Respiratory Rate 23 H 23 H Blood Pressure 127/65 Pulse Oximetry 96 Oxygen Delivery Fraction of Inspired Oxygen 06/24/24 22:00 06/24/24 23:04 06/25/24 00:00 Temperature Pulse Rate 72 69 69 Respiratory Rate 23 H 21 H Blood Pressure Pulse Oximetry 97 Oxygen Delivery Mechanical Ventilation Fraction of Inspired Oxygen 40 06/25/24 00:00 06/25/24 00:00 06/25/24 00:00 Temperature Pulse Rate 69 Respiratory Rate 21 H 21 H Blood Pressure Pulse Oximetry 97 Oxygen Delivery Mechanical Ventilation Fraction of Inspired Oxygen 45 45 06/25/24 00:00 06/24/24 20:17 06/25/24 00:28 Temperature 38.1 C H 38.2 C H 38.1 C H Pulse Rate 69 Respiratory Rate 21 H Blood Pressure 127/64 Pulse Oximetry 97 Oxygen Delivery Fraction of Inspired Oxygen 06/25/24 00:00 06/25/24 01:55 06/25/24 01:56 Temperature Pulse Rate 69 68 68 Respiratory Rate 23 H Blood Pressure Pulse Oximetry 97 Oxygen Delivery Mechanical Ventilation Fraction of Inspired Oxygen 40 06/25/24 02:00 06/25/24 02:00 06/25/24 02:00 Temperature 38.0 C H Pulse Rate 68 68 68 Respiratory Rate 22 H 22 H Blood Pressure 117/59 L Pulse Oximetry 95 Oxygen Delivery Fraction of Inspired Oxygen 06/25/24 02:00 06/25/24 02:00 06/25/24 02:30 Temperature Pulse Rate 68 68 72 Respiratory Rate 22 H 22 H 26 H Blood Pressure Pulse Oximetry Oxygen Delivery Fraction of Inspired Oxygen 06/25/24 03:18 06/25/24 03:24 06/25/24 04:00 Temperature 38.0 C H Pulse Rate 71 Respiratory Rate 26 H 22 H Blood Pressure 114/57 L Pulse Oximetry 95 96 Oxygen Delivery Mechanical Ventilation Fraction of Inspired Oxygen 35 45 06/25/24 04:00 06/25/24 04:00 06/25/24 04:00 Temperature Pulse Rate 71 71 71 Respiratory Rate 22 H 22 H Blood Pressure Pulse Oximetry Oxygen Delivery Fraction of Inspired Oxygen 06/25/24 05:12 06/25/24 06:00 06/25/24 06:00 Temperature 37.9 C H Pulse Rate 70 72 72 Respiratory Rate 28 H Blood Pressure 117/55 L Pulse Oximetry 95 96 Oxygen Delivery Mechanical Ventilation Fraction of Inspired Oxygen 35 06/25/24 06:00 06/25/24 06:00 06/25/24 07:20 Temperature Pulse Rate 72 72 70 Respiratory Rate 28 H 28 H Blood Pressure Pulse Oximetry 95 Oxygen Delivery Mechanical Ventilation Fraction of Inspired Oxygen 35 06/25/24 07:20 06/25/24 07:30 06/25/24 08:00 Temperature 37.6 C Pulse Rate 70 72 72 Respiratory Rate 23 H 21 H 22 H Blood Pressure 130/67 Pulse Oximetry 95 Oxygen Delivery Fraction of Inspired Oxygen 06/25/24 08:23 Temperature Pulse Rate 71 Respiratory Rate Blood Pressure Pulse Oximetry Oxygen Delivery Fraction of Inspired Oxygen Intake/Output Intake/Output: Intake & Output 06/23/24 06/24/24 06/24/24 06/25/24 00:59 00:59 23:59 23:59 Intake Total 340.5 Output Total 135 Balance 205.5 Meds/Results Medications: Active Medications Generic Name Dose Route Start Last Admin Trade Name Freq PRN Reason Stop Dose Admin Acetaminophen 650 mg 06/07/24 21:53 06/24/24 20:17 Acetaminophen Elixir 325 Mg/10.15 Ml Udc PO 650 mg Q6H PRN Administration Mild Pain (1-3) or Fever Albuterol/Ipratropium 3 ml 06/05/24 11:15 06/25/24 07:20 Ipratropium 0.5 Mg/Albuterol Sulfate 2.5 Mg Ampul.Neb 3 Ml INHALATION 3 ml Q6HRT JOHN Administration Amiodarone HCl 200 mg 06/02/24 21:00 06/25/24 08:23 Amiodarone Hcl 200 Mg Tablet PO 200 mg Q12HR JOHN Administration Dextrose 12.5 gm 06/05/24 11:46 Dextrose 50% 25 Gm/50 Ml Syringe IV PUSH PRN PRN Hypoglycemia Protocol Enoxaparin Sodium 30 mg 06/24/24 09:00 06/24/24 08:21 Enoxaparin 30 Mg/0.3 Ml Syringe SUB-Q 30 mg DAILY JOHN Administration Epoetin Shayan-epbx 10,000 units 06/18/24 09:00 06/22/24 09:28 Epoetin Shayan-Epbx 10,000 Units/Ml Vial IV PUSH 10,000 units MOWEFR@09 JOHN Administration Fidaxomicin 200 mg 06/24/24 01:35 HYGIENE ASSISTANT 06/25/24 08:24 Fidaxomicin 200 Mg Tablet PO 200 mg Q12HR JOHN Administration Glucagon 1 mg 06/05/24 11:46 Glucagon For Inj 1 Mg Vial IM PRN PRN Hypoglycemia Protocol Glucose 15 gm 06/05/24 11:46 Glucose Oral Gel 15 Gm Of Glucse In 37.5 Gm Tube PO PRN PRN Hypoglycemia Protocol Dextrose 1,000 mls @ 100 mls/hr 06/05/24 11:46 Dextrose 5% 1,000 Ml IVPB PRN PRN Hypoglycemia Protocol Albumin Human 50 mls @ 999 mls/hr 06/08/24 09:50 06/12/24 11:39 Albutein IVPB 07/08/24 09:49 Infused Q10M PRN Infusion HYPOTENSION Fentanyl Citrate 2,500 mcg in 250 mls @ 0.5 mls/hr 06/21/24 09:40 06/25/24 06:00 Fentanyl 2,500 Mcg/Ns 250 Ml IV CONT 50 mcg/hr .Q72H JOHN 5 mls/hr Titration Protocol 5 MCG/HR Midazolam HCl 100 mg in 100 mls @ 2 mls/hr 06/21/24 09:45 06/25/24 06:00 Versed 100 Mg/Ns 100 Ml IV CONT 2 mg/hr .Q50H JOHN 2 mls/hr Titration Protocol 2 MG/HR Cefazolin Sodium 100 mls @ 200 mls/hr 06/25/24 12:00 Ancef 3 Gm/D5w 100 Ml IVPB 06/25/24 12:29 ONCE ONE Metronidazole 500 mg in 100 mls @ 100 mls/hr 06/24/24 07:55 06/25/24 05:34 Flagyl 500 Mg/Iso Soln 100 Ml IVPB 100 mls/hr Q8HR JOHN Administration Cefepime HCl 0.5 gm/ Dextrose 50 mls @ 100 mls/hr 06/24/24 09:00 06/24/24 20:45 IVPB Infused Q12H JOHN Infusion Vancomycin HCl 1,000 mg in 250 mls @ 250 mls/hr 06/25/24 17:00 Vancomycin 1,000 Mg/Ns 250 Ml IVPB 06/25/24 17:59 ONCE ONE Insulin Aspart 3 - 6 units 06/05/24 12:00 06/25/24 06:21 Insulin Aspart (*Bkc) 100 Units/Ml SUB-Q Not Given Q6HR JOHN Protocol Midodrine 10 mg 06/17/24 22:00 06/25/24 05:34 Midodrine Hcl 10 Mg Tablet PO 10 mg Q8H JOHN Administration Multi-Ingred Cream/Lotion/Oil/Oint 1 applic 06/05/24 09:00 06/25/24 08:24 Mineral Oil/White Petrolatum Ointment EACH EYE 1 applic Q12HR JOHN Administration Ondansetron HCl 4 mg 06/11/24 07:47 06/23/24 21:44 Ondansetron Inj 4 Mg/2 Ml Vial IV PUSH 4 mg Q6H PRN Administration Nausea And Vomiting Pantoprazole Sodium 40 mg 06/06/24 09:00 06/24/24 20:00 Pantoprazole Sodium Iv 40 Mg Vial IV PUSH 40 mg Q12HR JOHN Administration Umeclidinium [place] 1 puff 06/03/24 08:00 06/14/24 12:38 Umeclidinium [place] 62.5 Mcg Ellipta INHALATION Not Given DAILYRT JOHN Vancomycin HCl 1 each 06/23/24 09:17 Vancomycin For Hemodialysis IVPB PRN PRN Vancomycin Protocol Radiology Results: ITS Impressions Renal Ultrasound 06/04/24 15:06 IMPRESSION: 1. Normal kidneys. No hydronephrosis. Abdomen Ultrasound 06/10/24 14:47 IMPRESSION: Fat infiltration. Enlarged left lobe of the liver. Slightly thickened wall of the gallbladder. Trace of ascites. Otherwise, normal Limited ultrasound of the abdomen. Abdomen X-Ray 06/16/24 13:54 IMPRESSION: 1. Nasogastric tube tip in the stomach. 2. Nonobstructive bowel gas pattern. 3. Diffuse lung disease, consistent with pulmonary edema versus pneumonia. 4. Cardiomegaly. Venous Doppler Study 06/17/24 11:49 IMPRESSION: 1. No deep venous thrombosis. Central Venous Line 06/22/24 14:36 IMPRESSION: 1. Right internal jugular central venous catheter tip at the caudal superior vena cava. Chest X-Ray 06/24/24 07:06 IMPRESSION: 1. Unchanged opacities in the left mid to lower lung zone which could represent atelectasis or pneumonia. 2. Cardiomegaly with interval improvement in prior pulmonary vascular congestion. Chest/Abdomen/Pelvis CT 06/24/24 21:07 IMPRESSION: Diffuse patchy bilateral pulmonary ground glass infiltrates suggesting pneumonitis, less likely small airways disease Prominent bilateral lower lobe atelectasis with air bronchograms Cardiomegaly Splenomegaly Labs Labs: Laboratory Results - last 24 hr 11/11/1206/24/24 06/25/24 11:51 17:26 00:03 WBC RBC Hgb Hct MCV MCH MCHC RDW Plt Count MPV Immature Gran % (Auto) Neut % (Auto) Lymph % (Auto) [place] % (Auto) Eos % (Auto) Baso % (Auto) Lymph # (Auto) [place] # (Auto) Eos # (Auto) Baso # (Auto) Abs Immat Gran (auto) Absolute Neuts (auto) Absolute Nucleated RBC Nucleated RBC % PT INR Puncture Site ABG pH ABG pCO2 ABG pO2 ABG PO2/FiO2 Ratio ABG HCO3 ABG O2 Saturation ABG O2 Content ABG Base Excess A-a Gradient Oxyhemoglobin Total Hemoglobin O2 Delivery Device O2 Liters/Min Minute Volume Vent Rate Vent Mode FiO2 Tidal Volume PEEP Peak Inspir Pressure Pressure Support Sodium Potassium Chloride Carbon Dioxide Anion Gap BUN Creatinine Estim Creat Clear Calc Estimated GFR Glucose POC Capillary Glucose 130 H 102 105 Calcium Phosphorus Magnesium Total Bilirubin AST ALT Alkaline Phosphatase Total Protein Albumin Random Vancomycin 06/25/24 06/25/24 05:04 05:15 WBC 12.3 H RBC 3.61 L Hgb 9.6 L Hct 31.8 L MCV 88.1 MCH 26.6 MCHC 30.2 L RDW 19.7 H Plt Count 257 MPV 10.7 H Immature Gran % (Auto) 1.6 H Neut % (Auto) 63.0 Lymph % (Auto) 15.3 L [place] % (Auto) 15.2 H Eos % (Auto) 3.9 Baso % (Auto) 1.0 Lymph # (Auto) 1.88 [place] # (Auto) 1.9 H Eos # (Auto) 0.5 H Baso # (Auto) 0.1 Abs Immat Gran (auto) 0.19 H Absolute Neuts (auto) 7.7 H Absolute Nucleated RBC 0.020 H Nucleated RBC % 0.2 PT 16.6 H INR 1.3 Puncture Site Right radial ABG pH 7.382 ABG pCO2 42.4 ABG pO2 83.9 ABG PO2/FiO2 Ratio 2.40 ABG HCO3 24.6 ABG O2 Saturation 96.1 ABG O2 Content 14.3 L ABG Base Excess -0.5 A-a Gradient 116.4 Oxyhemoglobin 95.6 Total Hemoglobin 10.6 L O2 Delivery Device Ventilator O2 Liters/Min Not Reportable Minute Volume Not Reportable Vent Rate 20 Vent Mode Cmv FiO2 35 Tidal Volume 400 PEEP 10 Peak Inspir Pressure Not Reportable Pressure Support Not Reportable Sodium 137 Potassium 4.1 Chloride 97 L Carbon Dioxide 21 L Anion Gap 19 H BUN 103 H D Creatinine 6.10 H Estim Creat Clear Calc 14 Estimated GFR 7 L Glucose 89 POC Capillary Glucose Calcium 10.0 Phosphorus 4.9 H Magnesium 2.7 H Total Bilirubin 1.5 H AST 170 H ALT 26 Alkaline Phosphatase 293 H Total Protein 7.0 Albumin 3.3 L Random Vancomycin 19.5 Quality VTE Prophylaxis VTE prophylaxis: pharmacologic ordered
--- NOTE | 2024-06-25 09:32 | P.PNNP_ITS ---
Progress Note: A&P Assessment and Plan (1) JOVI (acute kidney injury): Code(s): N17.9 - Acute kidney failure, unspecified Status: Acute Assessment and Plan: * no real significant improvement to date * normal creatinine ~ 1 month ago * admitted with a creatinine of 2.1mg/dl with ongoing worsening noted * due to multifactorial ATN: * hemodynamic instability/shock * sepsis * infection (UTI +/- pneumonia) -- although culture negative to date * hypoxia * other? * evaluation to date noted: * renal ultrasound negative for obstruction * urine eosinophils negative * urine electrolytes pre-renal (in spite of evidence of volume overload) * CPK low * moderate proteinuria (~ 600mg) * UA with blood and protein (and negative urine culture) * has been dialysis dependent since 06/05 * s/p daily dialysis alternating with DUF (except Sundays) to facilitate euvolemia * HD today and continue Tue/Tue/Tuesday schedule * s/p tunneled HD catheter placement on 06/22/24 * follow repeat labs and UOP to assess for potential renal recovery (2) Acute respiratory failure: Code(s): J96.00 - Acute respiratory failure, unspecified whether with hypoxia or hypercapnia Status: Acute Assessment and Plan: * intubated on 06/05 for impending respiratory failure * failed BiPAP therapy * ABG with noted hypercapnea and hypoxia * secondary to pulmonary edema, diffuse bilateral infiltrates and ARDS * on bronchodilators * weaned off steroids * continue dialyis/dry ultrafiltration for fluid removal * noted plans for tracheostomy and G-tube placement later today (3) Septic shock: Code(s): A41.9 - Sepsis, unspecified organism; R65.21 - Severe sepsis with septic shock Status: Acute Assessment and Plan: * initially thought to be secondary to UTI and pneumonia * was on levophed therapy to maintain MAP * weaned off and being used PRN * Echo results noted * continue midodrine * culture data noted: * blood/urine cultures from 06/02 negative * blood culture 06/06 with E. coli and Staph epidermidis * urine culture on 06/06 negative. * blood culture on 06/08 negative * sputum culture on 06/23 with yeast * urine culture on 06/23 with Enterococcus * follow repeat culture data * resumed on antibiotics due to fevers * follow trend of hemodynamics (4) Pulmonary edema: Code(s): J81.1 - Chronic pulmonary edema Status: Acute Assessment and Plan: * contributing to #2 * secondary to JOVI/ARF but ARDS an issues as well * failed diuretic therapy * HD/DUF for fluid removal * almost 22L negative since admission (5) C. difficile diarrhea: Code(s): A04.72 - Enterocolitis due to Clostridium difficile, not specified as recurrent Status: Acute Assessment and Plan: * currently on Dificid and IV Flagyl * CT abdomen pelvis results noted (6) Afib: Code(s): I48.91 - Unspecified atrial fibrillation Status: Acute Assessment and Plan: * rate control strategy * on amiodarone and Eliquis * anticoagulation on hold for procedures (7) Anemia: Code(s): D64.9 - Anemia, unspecified Status: Acute Assessment and Plan: * related to JOVI and acute/critical illness * KIRILL with HD * follow trend of H/H (8) Liver cirrhosis secondary to HOFFMANN: Code(s): K75.81 - Nonalcoholic steatohepatitis (HOFFMANN); K74.60 - Unspecified cirrhosis of liver Status: Acute Assessment and Plan: * known history * normal liver by recent imaging * noted elevations in AST/ALT that have been up and down * fluctuating LFTS thought to be more related to congestion/volume overload * continue to follow (9) Type 2 diabetes mellitus: Code(s): E11.9 - Type 2 diabetes mellitus without complications Status: Acute Assessment and Plan: * follow accu-cheks * glycemic control per mine promotor/hospitalist Will continue to follow. Subjective Date/time seen: 06/25/24 09:32 Interval history: Follow-up for acute kidney injury/acute renal failure with dialysis dependence. Tolerating dialysis treatment at the time of my visit (seen on HD at 9:20AM); remains intubated/sedated and on mechanical ventilation; hemodynamically stable with the need for vasopressors; noted plans for tracheostomy and open G-tube placement later today; still with fevers with a Tmax 101.3? in the last 24 h ours. Exam Narrative: General: large female intubated/sedated on mechanical ventilator Heart: normal S1 and S2; no rub Lungs: coarse breath sounds; decreased at bases Abdomen: obese but soft, nontender, nondistended, positive bowel sounds Extremities: no cyanosis or clubbing; trace - 1+ edema Skin: no rash Objective Data Vital Signs Vital Signs: Vital Signs Temp Pulse Resp BP Pulse Ox O2 Del Method FiO2 06/25/24 09:30 70 122/63 06/25/24 09:15 73 123/61 06/25/24 09:00 74 100/56 L 06/25/24 08:45 70 128/65 06/25/24 08:00 90 Mechanical Ventilation 35 06/25/24 08:00 72 22 H 06/25/24 08:00 72 22 H 06/25/24 08:00 70 06/25/24 08:41 71 126/97 H 06/25/24 08:27 99.5 F 74 16 130/67 90 06/25/24 08:27 35 06/25/24 08:23 71 06/25/24 08:00 99.6 F 72 22 H 130/67 95 06/25/24 07:30 72 21 H 06/25/24 07:20 70 23 H 06/25/24 07:20 70 95 Mechanical Ventilation 35 06/25/24 06:00 72 28 H 06/25/24 06:00 72 28 H 06/25/24 06:00 72 06/25/24 06:00 100.2 F H 72 28 H 117/55 L 96 06/25/24 05:12 70 95 Mechanical Ventilation 35 06/25/24 04:00 71 06/25/24 04:00 71 22 H 06/25/24 04:00 71 22 H 06/25/24 04:00 100.4 F H 71 22 H 114/57 L 96 06/25/24 03:24 45 06/25/24 03:18 26 H 95 Mechanical Ventilation 35 06/25/24 02:30 72 26 H 06/25/24 02:00 68 22 H 06/25/24 02:00 68 22 H 06/25/24 02:00 100.4 F H 68 22 H 117/59 L 95 06/25/24 02:00 68 06/25/24 02:00 68 22 H 06/25/24 01:56 68 97 Mechanical Ventilation 40 06/25/24 01:55 68 23 H 06/25/24 00:00 69 06/25/24 00:28 100.5 F H 06/24/24 20:17 100.8 F H 06/25/24 00:00 100.5 F H 69 21 H 127/64 97 06/25/24 00:00 45 06/25/24 00:00 21 H 97 Mechanical Ventilation 45 06/25/24 00:00 69 21 H 06/25/24 00:00 69 21 H 06/24/24 23:04 69 97 Mechanical Ventilation 40 06/24/24 22:00 72 23 H 06/24/24 22:00 72 23 H 06/24/24 22:00 100.5 F H 71 23 H 127/65 96 06/24/24 22:00 71 06/24/24 20:00 72 24 H 06/24/24 20:00 72 24 H 06/24/24 20:00 45 06/24/24 20:00 24 H 97 Mechanical Ventilation 45 06/24/24 20:00 100.6 F H 72 24 H 135/67 97 06/24/24 20:00 72 06/24/24 20:18 71 22 H 06/24/24 20:12 71 97 Mechanical Ventilation 40 06/24/24 20:12 71 21 H 06/24/24 20:00 70 06/24/24 18:00 72 28 H 06/24/24 18:00 73 28 H 06/24/24 18:00 72 06/24/24 18:00 100.8 F H 73 31 H 118/61 96 06/24/24 16:57 79 95 Mechanical Ventilation 40 06/24/24 16:00 101.3 F H 74 27 H 123/55 L 96 06/24/24 16:00 45 06/24/24 16:00 74 24 H 96 Mechanical Ventilation 45 06/24/24 16:00 75 06/24/24 16:00 75 28 H 06/24/24 16:00 75 28 H 06/24/24 14:14 100.9 F H 06/24/24 14:00 81 25 H 06/24/24 14:00 81 25 H 06/24/24 14:00 100.9 F H 80 29 H 138/63 95 06/24/24 14:00 81 06/24/24 13:34 78 25 H 06/24/24 13:25 81 24 H 06/24/24 13:25 81 96 Mechanical Ventilation 45 06/24/24 13:14 100.8 F H 06/24/24 12:00 82 06/24/24 12:00 81 26 H 06/24/24 12:00 79 26 H 06/24/24 12:00 100.4 F H 78 23 H 140/66 96 06/24/24 11:57 78 35 H 96 Mechanical Ventilation 45 06/24/24 11:56 45 Intake/Output Intake/Output: Intake & Output 06/23/24 06/24/24 06/24/24 06/25/24 00:59 00:59 23:59 23:59 Intake Total 368.5 Output Total 135 Balance 233.5 Meds/Results Medications: Active Medications Generic Name Dose Route Start Last Admin Trade Name Freq PRN Reason Stop Dose Admin Acetaminophen 650 mg 06/07/24 21:53 06/24/24 20:17 Acetaminophen Elixir 325 Mg/10.15 Ml Udc PO 650 mg Q6H PRN Administration Mild Pain (1-3) or Fever Albuterol/Ipratropium 3 ml 06/05/24 11:15 06/25/24 07:20 Ipratropium 0.5 Mg/Albuterol Sulfate 2.5 Mg Ampul.Neb 3 Ml INHALATION 3 ml Q6HRT JOHN Administration Amiodarone HCl 200 mg 06/02/24 21:00 06/25/24 08:23 Amiodarone Hcl 200 Mg Tablet PO 200 mg Q12HR JOHN Administration Dextrose 12.5 gm 06/05/24 11:46 Dextrose 50% 25 Gm/50 Ml Syringe IV PUSH PRN PRN Hypoglycemia Protocol Enoxaparin Sodium 30 mg 06/24/24 09:00 06/24/24 08:21 Enoxaparin 30 Mg/0.3 Ml Syringe SUB-Q 30 mg DAILY JOHN Administration Epoetin Shayan-epbx 10,000 units 06/18/24 09:00 06/25/24 10:22 Epoetin Shayan-Epbx 10,000 Units/Ml Vial IV PUSH 10,000 units MOWEFR@09 JOHN Administration Fidaxomicin 200 mg 06/24/24 01:35 [employer]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 06/25/24 08:24 Fidaxomicin 200 Mg Tablet PO 200 mg Q12HR JOHN Administration Glucagon 1 mg 06/05/24 11:46 Glucagon For Inj 1 Mg Vial IM PRN PRN Hypoglycemia Protocol Glucose 15 gm 06/05/24 11:46 Glucose Oral Gel 15 Gm Of Glucse In 37.5 Gm Tube PO PRN PRN Hypoglycemia Protocol Dextrose 1,000 mls @ 100 mls/hr 06/05/24 11:46 Dextrose 5% 1,000 Ml IVPB PRN PRN Hypoglycemia Protocol Albumin Human 50 mls @ 999 mls/hr 06/08/24 09:50 06/12/24 11:39 Albutein IVPB 07/08/24 09:49 Infused Q10M PRN Infusion HYPOTENSION Fentanyl Citrate 2,500 mcg in 250 mls @ 0.5 mls/hr 06/21/24 09:40 06/25/24 1 0:00 Fentanyl 2,500 Mcg/Ns 250 Ml IV CONT 50 mcg/hr .Q72H JOHN 5 mls/hr Titration Protocol 5 MCG/HR Midazolam HCl 100 mg in 100 mls @ 2 mls/hr 06/21/24 09:45 06/25/24 10:00 Versed 100 Mg/Ns 100 Ml IV CONT 2 mg/hr .Q50H JOHN 2 mls/hr Titration Protocol 2 MG/HR Cefazolin Sodium 100 mls @ 200 mls/hr 06/25/24 12:00 Ancef 3 Gm/D5w 100 Ml IVPB 06/25/24 12:29 ONCE ONE Metronidazole 500 mg in 100 mls @ 100 mls/hr 06/24/24 07:55 06/25/24 05:34 Flagyl 500 Mg/Iso Soln 100 Ml IVPB 100 mls/hr Q8HR JOHN Administration Cefepime HCl 0.5 gm/ Dextrose 50 mls @ 100 mls/hr 06/24/24 09:00 06/24/24 20:45 IVPB Infused Q12H JOHN Infusion Vancomycin HCl 1,000 mg in 250 mls @ 250 mls/hr 06/25/24 17:00 Vancomycin 1,000 Mg/Ns 250 Ml IVPB 06/25/24 17:59 ONCE ONE Insulin Aspart 3 - 6 units 06/05/24 12:00 06/25/24 06:21 Insulin Aspart (*Bkc) 100 Units/Ml SUB-Q Not Given Q6HR JOHN Protocol Midodrine 10 mg 06/17/24 22:00 06/25/24 05:34 Midodrine Hcl 10 Mg Tablet PO 10 mg Q8H JOHN Administration Multi-Ingred Cream/Lotion/Oil/Oint 1 applic 06/05/24 09:00 06/25/24 08:24 Mineral Oil/White Petrolatum Ointment EACH EYE 1 applic Q12HR JOHN Administration Ondansetron HCl 4 mg 06/11/24 07:47 06/23/24 21:44 Ondansetron Inj 4 Mg/2 Ml Vial IV PUSH 4 mg Q6H PRN Administration Nausea And Vomiting Pantoprazole Sodium 40 mg 06/06/24 09:00 06/24/24 20:00 Pantoprazole Sodium Iv 40 Mg Vial IV PUSH 40 mg Q12HR JOHN Administration Umeclidinium [place] 1 puff 06/03/24 08:00 06/14/24 12:38 Umeclidinium [place] 62.5 Mcg Ellipta INHALATION Not Given DAILYRT JOHN Vancomycin HCl 1 each 06/23/24 09:17 Vancomycin For Hemodialysis IVPB PRN PRN Vancomycin Protocol Radiology Results: ITS Impressions Renal Ultrasound 06/04/24 15:06 IMPRESSION: 1. Normal kidneys. No hydronephrosis. Abdomen Ultrasound 06/10/24 14:47 IMPRESSION: Fat infiltration. Enlarged left lobe of the liver. Slightly thickened wall of the gallbladder. Trace of ascites. Otherwise, normal Limited ultrasound of the abdomen. Abdomen X-Ray 06/16/24 13:54 IMPRESSION: 1. Nasogastric tube tip in the stomach. 2. Nonobstructive bowel gas pattern. 3. Diffuse lung disease, consistent with pulmonary edema versus pneumonia. 4. Cardiomegaly. Venous Doppler Study 06/17/24 11:49 IMPRESSION: 1. No deep venous thrombosis. Central Venous Line 06/22/24 14:36 IMPRESSION: 1. Right internal jugular central venous catheter tip at the caudal superior vena cava. Chest X-Ray 06/24/24 07:06 IMPRESSION: 1. Unchanged opacities in the left mid to lower lung zone which could represent atelectasis or pneumonia. 2. Cardiomegaly with interval improvement in prior pulmonary vascular congestion. Chest/Abdomen/Pelvis CT 06/24/24 21:07 IMPRESSION: Diffuse patchy bilateral pulmonary ground glass infiltrates suggest ing pneumonitis, less likely small airways disease Prominent bilateral lower lobe atelectasis with air bronchograms Cardiomegaly Splenomegaly Labs Labs: Laboratory Tests 06/25/24 05:15 06/25/24 05:15 Calcium 10.0 Phosphorus 4.9 H Magnesium 2.7 H Total Bilirubin 1.5 H AST 170 H ALT 26 Alkaline Phosphatase 293 H Total Protein 7.0 Albumin 3.3 L Random Vancomycin 19.5 Microbiology 06/23/24 00:18 Sputum Sputum Culture - Preliminary Yeast Present 06/23/24 12:18 Urine [place] Urine Culture - Preliminary Enterococcus species
--- NOTE | 2024-06-25 10:04 | PCFNICU ---
ICU Rounding Note: Pt current nutrition is NPO for procedure today. Nutrition recommendation: Increase tube feeding goal to 50 ml/h when tube feeding is resumed. Mix with flushes: Banatrol BID for diarrhea/c-diff Last recorded weight is 147.6 kg. Bowel Motility: Liquid stool per FMS +1 06/25/24 Labs Reviewed: HGb 9.6, Hct 31.8, Alb 3.3, BUN 103, Cre 6.1 Meds Noted: Protonix, Fentanyl, levophed, versed Skin: Reviewed. No pressure injuries Additional Notes: NPO for tracheostomy/PEG placement today. Recommend increasing TF goal rate to Nepro @ 50 ml/h to better meet estimated nutrition needs. 1980 kcal, 89 g protein, 800 ml free water. Flush 30 ml q 4 h. Following daily in ICU rounds. Will monitor weight, labs, skin, meds, diet orders every Tuesday and Tuesday. .
[2024-06-25] MEDS: EPOETIN ALFA-EPBX 10,000 UNITS/ML VIAL 10000 UNITS IV PUSH (10:22)
[2024-06-25] MEDS: SODIUM CHLORIDE 0.9% IV 1,000 ML 999 ML IV CONT (10:25)
--- NOTE | 2024-06-25 11:18 | P.PNAN_ITS ---
Anes - Eval Pre Procedure Procedure: Operation Date: 06/22/24 13:30 Proposed Procedures p Tunneled Dialysis Catheter Placement - Eduardo Albert DO Operation Date: 06/25/24 13:00 Proposed Procedures p Tracheostomy - Biju Kay MD s Open G-Tube Insertion - Eduardo Albert DO Date/Time: 06/25/24 11:18 Pre Op Diagnosis: JOVI, UTI, generalized weakness Patient Data Age: 54 Gender: F Height: 1.68 m Weight: 147.6 kg Last Vital Signs Temp 99.5 F 06/25/24 10:00 Pulse 72 06/25/24 10:50 Resp 25 H 06/25/24 10:00 BP 114/57 L 06/25/24 10:15 Pulse Ox 95 06/25/24 10:50 O2 Del Method Mechanical Ventilation 06/25/24 10:50 O2 Flow Rate 50 06/04/24 23:51 FiO2 45 06/25/24 10:50 Allergies Allergy/AdvReac Type Severity Reaction Status Date / Time oxycodone [From Percocet] Allergy Intermediate Hives Verified 06/02/24 11:46 Penicillins Allergy Intermediate Hives Verified 06/08/24 09:49 Home Medications Medication Instructions Recorded Confirmed Type amiodarone 200 mg tablet 200 mg PO BID 11/26/23 06/02/24 History apixaban 5 mg tablet (Eliquis) 5 mg PO BID 11/26/23 06/02/24 History dapagliflozin propanediol 5 mg 5 mg PO DAILY 11/26/23 06/02/24 History tablet (Farxiga) famotidine 20 mg tablet 20 mg PO BID 11/26/23 06/02/24 History flecainide 100 mg tablet 100 mg PO BID 11/26/23 06/02/24 History furosemide 40 mg tablet 40 mg PO BID 11/26/23 06/02/24 History gabapentin 100 mg capsule 200 mg PO TID 11/26/23 06/02/24 History magnesium oxide 400 mg (241.3 mg 400 mg PO BID 11/26/23 06/02/24 History magnesium) tablet metoprolol tartrate 25 mg tablet 25 mg PO BID 11/26/23 06/02/24 History potassium chloride 20 mEq 40 meq PO BID 11/26/23 06/02/24 History tablet,extended release(part/cryst) albuterol sulfate 90 mcg/actuation 2 puff inhalation Q4H PRN 06/02/24 06/02/24 History aerosol inhaler Shortness Of Breath ergocalciferol (vitamin D2) 1,250 50,000 unit PO WEEKLY 06/02/24 06/02/24 History mcg (50,000 unit) capsule fluticasone 250 mcg-salmeterol 50 1 inh inhalation BID 06/02/24 06/02/24 History mcg/dose blistr powdr for inhalation (Advair Diskus) tiotropium bromide 2.5 2 puff inhalation DAILY 06/02/24 06/02/24 History mcg/actuation mist for inhalation (Spiriva Respimat) Laboratory Tests 06/24/24 06/24/24 06/25/24 11:51 17:26 00:03 WBC RBC Hgb Hct MCV MCH MCHC RDW Plt Count MPV Immature Gran % (Auto) Neut % (Auto) Lymph % (Auto) Wilkin % (Auto) Eos % (Auto) Baso % (Auto) Lymph # (Auto) Wilkin # (Auto) Eos # (Auto) Baso # (Auto) Abs Immat Gran (auto) Absolute Neuts (auto) Absolute Nucleated RBC Nucleated RBC % PT INR Puncture Site ABG pH ABG pCO2 ABG pO2 ABG PO2/FiO2 Ratio ABG HCO3 ABG O2 Saturation ABG O2 Content ABG Base Excess A-a Gradient Oxyhemoglobin Total Hemoglobin O2 Delivery Device O2 Liters/Min Minute Volume Vent Rate Vent Mode FiO2 Tidal Volume PEEP Peak Inspir Pressure Pressure Support Sodium Potassium Chloride Carbon Dioxide Anion Gap BUN Creatinine Estim Creat Clear Calc Estimated GFR Glucose POC Capillary Glucose 130 H mg/dl 102 mg/dl 105 mg/dl (65-105) (65-105) (65-105) Calcium Phosphorus Magnesium Total Bilirubin AST ALT Alkaline Phosphatase Total Protein Albumin Random Vancomycin 06/25/24 06/25/24 05:04 05:15 WBC 12.3 H K/mm3 (4.5-10.0) RBC 3.61 L M/mm3 (4.2-5.4) Hgb 9.6 L g/dL (12.0-15.0) Hct 31.8 L % (37.0-47.0) MCV 88.1 fl (80-100) MCH 26.6 pg (26-34) MCHC 30.2 L g/dl (32-36) RDW 19.7 H % (11.5-14.5) Plt Count 257 k/mm3 (150-375) MPV 10.7 H fl (7.4-10.4) Immature Gran % (Auto) 1.6 H % (0-0.5) Neut % (Auto) 63.0 % (45.5-73.1) Lymph % (Auto) 15.3 L % (18.3-44.2) Wilkin % (Auto) 15.2 H % (2.6-8.5) Eos % (Auto) 3.9 % (0-4.4) Baso % (Auto) 1.0 % (0.2-1.2) Lymph # (Auto) 1.88 K/mm3 (0.9-3.2) Wilkin # (Auto) 1.9 H K/mm3 (0.1-0.6) Eos # (Auto) 0.5 H K/mm3 (0-0.3) Baso # (Auto) 0.1 K/mm3 (0.0-0.1) Abs Immat Gran (auto) 0.19 H K/mm3 (0.00-0.031) Absolute Neuts (auto) 7.7 H K/mm3 (1.3-6.7) Absolute Nucleated RBC 0.020 H K/mm3 (0.0-0.012) Nucleated RBC % 0.2 % (0.0-0.2) PT 16.6 H Seconds (11.1-14.7) INR 1.3 Puncture Site Right radial ABG pH 7.382 (7.350-7.450) ABG pCO2 42.4 mmHg (35.0-45.0) ABG pO2 83.9 mmHg (80.0-100.0) ABG PO2/FiO2 Ratio 2.40 % ABG HCO3 24.6 mEq/l (22.0-26.0) ABG O2 Saturation 96.1 % (95.0-100.0) ABG O2 Content 14.3 L %vol (16.0-22.0) ABG Base Excess -0.5 mEq/l (+/-2.0) A-a Gradient 116.4 mmHg Oxyhemoglobin 95.6 % THb (90.0-100.0) Total Hemoglobin 10.6 L g/dL (12.0-18.0) O2 Delivery Device Ventilator O2 Liters/Min Not Reportable Minute Volume Not Reportable Vent Rate 20 /MIN Vent Mode Cmv FiO2 35 % Tidal Volume 400 ml PEEP 10 cmH2O Peak Inspir Pressure Not Reportable Pressure Support Not Reportable Sodium 137 mmol/L (137-145) Potassium 4.1 mmol/L (3.4-5.0) Chloride 97 L mmol/L (98-107) Carbon Dioxide 21 L mmol/L (22-30) Anion Gap 19 H mmol/L (4-12) BUN 103 H D mg/dL (7-17) Creatinine 6.10 H mg/dL (0.7-1.0) Estim Creat Clear Calc 14 ml/min Estimated GFR 7 L (59 - ) Glucose 89 mg/dL (65-110) POC Capillary Glucose Calcium 10.0 mg/dL (8.4-10.2) Phosphorus 4.9 H mg/dL (2.5-4.5) Magnesium 2.7 H mg/dL (1.6-2.3) Total Bilirubin 1.5 H mg/dL (0.2-1.3) AST 170 H U/L (14-36) ALT 26 U/L (6-35) Alkaline Phosphatase 293 H U/L (38-126) Total Protein 7.0 g/dL (6.3-8.2) Albumin 3.3 L g/dL (3.5-5.1) Random Vancomycin 19.5 ug/mL (10-20) Patient hx anesthesia problems: none Family hx anesthesia problems: none Results Review: All pre-operative results and documents have been reviewed as part of the pre- operative evaluation. [facility] Past Medical History Medical History Asthma Per patient report but PFTs within our system demonstrated restrictive lung disease not obstructive Atrial fibrillation Chronic respiratory failure with hypoxia and hypercapnia On 3 L nasal cannula home. Intolerant BiPAP. Depression Essential hypertension GERD (gastroesophageal reflux disease) Hyperparathyroidism Liver cirrhosis secondary to [place]OFF[place] Migraines Morbid obesity with body mass index (BMI) greater than or equal to 50 Obstructive sleep apnea Intolerant of BiPAP Restrictive lung disease Restrictive lung disease noted on PFTs within the old record system. No mention of obstructive disease on that pulmonary function testing SLE (systemic lupus erythematosus) Reportedly with mostly skinaffects Surgical History Surgical History History of appendectomy Status post cardiac pacemaker procedure Complicated by perforation of the myocardium requiring subsequent open heart surgery performed at [facility] Family History Family History Mother Hypertension Heart attack Social History Social History Smoking packs per day: 0.5 Smoking cigarettes per day: 10.0 Years smoked: 20 Smoking pack-years: 10.00 Smoking status: Former smoker Tobacco type: cigarettes Second hand tobacco smoke exposure: Yes ( smokes in home) Smoking end date: 08/22/07 Additional smoking assessment comments: 2 years since last smoked. Alcohol intake: never Substance use: never Substance use type: does not use Do You Feel Safe in your Home?: Yes Lack of Transportation: No Lack of Food: Never True Current Housing: I Have Housing Concerned About Future Housing: No Difficulty Paying Gas/Electric Bills: No Difficulty Paying for Meds: No Currently Unemployed: No Education: High School Diploma/GED Difficulty w/ Childcare or Family Care: No Spiritual care concerns: No Exam Day of Procedure 06/25/24 11:18 Patient weight: super morbidly obese Heart: other (atrial pacemaker, EF 65-70%) Lungs: other (mech vent) Airway: other (currently intubated) Neurological: unresponsive
--- NOTE | 2024-06-25 11:23 | WPDHPUPDATE1 ---
History and Physical Update Update Date/Time: 06/25/24 11:23 History and Physical has been reviewed, including an updated exam of the patient. There are NO changes in the patient's condition. Risks, benefits, and alternatives have been discussed and questions answered. Patient agrees to proceed with procedure.
--- NOTE | 2024-06-25 11:42 | W.PM.PROC2 ---
Procedure Note - Detailed Date of Procedure 06/25/24 Pre-op Diagnosis respiratory failure Post-op Diagnosis Same Procedure Performed Tracheostomy Surgeon Biju Kay MD Anesthesia General Indications respiratory failure Description of Procedure The patient was previously consented by family. They were then brought back to the OR and induced with anesthesia through the endotracheal tube. They were then transferred to the OR table. A shoulder roll was placed. Landmarks were palpated and marked. A timeout was performed. An 7-0 proximal XLT cuffed tracheostomy tube was selected and tested. The patient was prepped and drapped in the usual sterile fashion for an tracheotostomy. A horizontal incision was made along the marked line 1-2 cm above the suprasternal notch. Dissection was carried down in the midline through subcutaneous tissues using a hemostat and retraction by vein retractor and then [place] retractors. The strap muscles were identified and divided using a combination of blunt dissection through the median raphe and electrocautery. The thyroid isthmus was encounted and divided using electrocautery and retracted. The trachea was encountered. A cricoid hook was placed to stabilize and elevate the trachea. The tracheostomy tube was tested on the field and showed no leak. After confirmation with anesthesia and the plumbing service technician ensuring FiO2 was acceptable an #11 blade was used to make a horizontal incision into the trachea. Heavy scissors were used to make parallel vertical cuts laterally through the second ring. The endotracheal tube was pulled. The tracheostomy tube was placed and successfully hooked up the circuit. The airway was stabilized and verified by anesthesia. The cricoid/tracheal hook was carefully removed. The tracheotomy tube was then secured with 0 silk sutures placed at each corner of the trach tube and the underlying skin. A tracheal tie was then placed. There was bleeding and surgicel was placed in the wound. This ended this portion of the procedure and care of the patient was returned to anesthesia kept the patient anesthetized for the g-tube placement with general surgery. please refer to that dictation for those portions of the procedure. Estimated Blood Loss 10 Urine Output 25 Drains No Packing Yes (surgicel) Pathology None sent Complications No immediate complications Condition Critical Disposition ICU
[2024-06-25] MEDS: ceFAZolin 3 GM/D5W 100 ML 100 ML IVPB (12:02)
[2024-06-25] MEDS: LIDO 1%/EPINEPHRINE 1:100,000 50 ML VIAL INFILTRATE (12:40)
[2024-06-25 14:16] LABS: Glucose Point of Care 127 mg/dl (65-105)
[2024-06-25] MEDS: CEFEPIME 0.5 GM in DEXTROSE 5% IN WATER 50 ML IVPB ×2 (14:17→20:26)
[2024-06-25] MEDS: PANTOPRAZOLE SODIUM IV 40 MG VIAL IV PUSH ×2 (14:18→20:21)
--- NOTE | 2024-06-25 14:22 | P.OP_ITS ---
Procedure Note - Detailed Date of Procedure 06/25/24 Pre-op Diagnosis Acute renal failure, acute respiratory failure Post-op Diagnosis Same Procedure Performed Open gastrostomy tube placement Surgeon Eduardo Albert, DO Anesthesia General Indications This is a 54-year-old woman who is critically ill in the intensive care unit. She has been intubated for greater than 2 weeks and was still unable to wean from the ventilator. She has been getting tube feeds through an NG tube but will need long-term gastrostomy access. PEG tube placement was contraindicated given her large size and hepatomegaly. Discussions were made with the patient's family about other options and decision was made to proceed with open gastrostomy tube placement. Findings Open gastrostomy tube placement was performed. I was able to identify an area of the greater curvature of the stomach just lateral to the inferior edge of the liver. Gastrostomy tube placement was then performed with with a 16 [place] G- tube. The tube was secured at the stomach using 2 pursestring sutures. The stomach was then also pexy to the abdominal wall using the pursestring sutures. The patient did have about 200 mL of clear yellow ascites that I suctioned after entering the abdominal cavity, but no other significant abnormalities were noted. Description of Procedure Procedure as well as risks, benefits, and alternatives were discussed with the patient's family. Written consent was obtained and placed in chart prior to procedure. Patient was brought back to surgical suite. She was placed supine on operating table. Time-out was done to confirm patient and procedure. She was already intubated and Dr. Kay had just completed the tracheostomy tube placement. Please refer to his operative report for his details. Patient's abdomen was then prepped and draped in sterile fashion using chlorhexidine prep. A 15 cm vertical midline incision was made using a 10 blade scalpel in the upper abdomen. Electrocautery was used for hemostasis and for dissection through the subcutaneous tissue. The linea alba was then identified and incised with electrocautery. The peritoneum was then also entered using electrocautery. The abdominal cavity was entered and carefully inspected. A Nick clamp was placed along the greater curvature of the stomach. This was used to help retract the stomach inferiorly to identify a space for gastrostomy tube placement. 2-0 silk pursestring suture was then placed along the anterior surface of the greater curvature of the stomach, and then a 2nd pursestring suture was placed slightly wider in the same area. The location on the anterior abdominal wall in the left upper quadrant was then identified for where to bring the tubing through. Small incision was made using a 15 blade scalpel in this location and then a curved clamp was carefully advanced through the abdominal layers into the abdominal cavity. A 2nd clamp was then used to follow this tract from the posterior side up through the anterior abdominal wall. The G- tube was then grasped with the clamp and advanced through this tract. A gastrotomy was then made using electrocautery at the center of the pursestring sutures. The G-tube was then advanced through the gastrotomy and then the balloon at the end of the G-tube was inflated with 5 cc of sterile saline. The G-tube appeared in proper position with gastric contents visible within the tubing. The pursestring sutures were then tied down taut around the G-tube. The pursestring sutures were then also used to pexy the stomach to the abdominal wall and then these were tied down in place while traction was gently placed on the G-tube. The G-tube and stomach were inspected and no abnormalities were noted. A 2-0 silk drain stitch was then placed around the exit site to secure the G tube tubing at about 7 cm to the abdominal skin. The bolster was then secured down to the skin as well. One final inspection was made around the abdominal cavity and no other abnormalities were noted. Needle and sponge and instrument counts were correct. The fascia was then closed using 0 PDS running absorbable suture. The skin was then closed using a skin stapler. Telfa, 4 x 4 gauze, drain sponges, and Medipore tape were then applied. The patient was then awakened from anesthesia and transferred back to the ICU. Implants 16 Fr G-tube Estimated Blood Loss 10 Urine Output 25 Complications No immediate complications Condition Critical Disposition ICU [facility] Billing Surgery - Charge Forward: Surgery Billing
[2024-06-25 17:35] LABS: Glucose Point of Care 112 mg/dl (65-105)
[2024-06-25] MEDS: LINEZOLID 600 MG/300 ML 600 MG/300 ML SOLN 300 MG IVPB (20:21)
[2024-06-25 23:49] LABS: Glucose Point of Care 109 mg/dl (65-105)
[2024-06-26] VITALS (32 sets, daily range): BP systolic 109–125; BP diastolic 54–64; PULSE 55–78; RESP 22–34; TEMP 38–38.3; O2SAT 95–97
[2024-06-26] MEDS: IPRATROPIUM 0.5 MG/ALBUTEROL SULFATE 2.5 MG AMPUL.NEB 3 ML INHALATION ×4 (02:44→20:15)
[2024-06-26 04:44] LABS: Hematocrit 33.2 % (37.0-47.0); Hemoglobin 10.5 g/dL (12.0-15.0); Mean Corpuscular HGB Conc 31.6 g/dl (32-36); Mean Corpuscular Hemoglobin 27.4 pg (26-34); Mean Corpuscular Volume 86.7 fl (80-100); Mean Platelet Volume 10.5 fl (7.4-10.4); Platelet Count Result 287 k/mm3 (150-375); Red Blood Count 3.83 M/mm3 (4.2-5.4); Red Cell Distribution Width 19.7 % (11.5-14.5); White Blood Count 13.6 K/mm3 (4.5-10.0)
[2024-06-26 05:03] LABS: Alanine Aminotransferase 71 U/L (6-35); Albumin Level 3.3 g/dL (3.5-5.1); Alkaline Phosphatase 288 U/L (38-126); Anion Gap 15 mmol/L (4-12); Aspartate Amino Transferase 443 U/L (14-36); Bilirubin,Total 1.7 mg/dL (0.2-1.3); Blood Urea Nitrogen 76 mg/dL (7-17); Calcium 9.8 mg/dL (8.4-10.2); Carbon Dioxide 23 mmol/L (22-30); Chloride 97 mmol/L (98-107); Estimated CRCL calculation 16 ml/min; Estimated Glomerular Filt Rate 8; Glucose 108 mg/dL (65-110); Magnesium 2.4 mg/dL (1.6-2.3); Potassium 3.7 mmol/L (3.4-5.0); Sodium 135 mmol/L (137-145)
[2024-06-26] MEDS: metroNIDAZOLE 500 MG/ISO 100ML 500 MG/100 ML BAG 100 MG IVPB ×3 (05:06→20:52)
[2024-06-26] MEDS: ACETAMINOPHEN ELIXIR 325 MG/10.15 ML UDC 650 MG PO ×3 (05:06→20:50)
[2024-06-26] MEDS: MIDODRINE HCL 10 MG TABLET PO ×3 (05:06→20:52)
--- NOTE | 2024-06-26 08:07 | WPDANESPN ---
Anes - Prog Note Post-Op Date/Time: 06/26/24 08:07 Cardiovascular status: normal Respiratory status: normal Airway patency: baseline Mental status: baseline Post-Op hydration status: normal Vital Signs: Last Vital Signs Temp 38.3 C H 06/26/24 06:00 Pulse 70 06/26/24 06:00 Resp 22 H 06/26/24 06:00 BP 116/55 L 06/26/24 06:00 Pulse Ox 95 06/26/24 06:00 O2 Del Method Mechanical Ventilation 06/26/24 05:25 O2 Flow Rate 50 06/04/24 23:51 FiO2 45 06/26/24 05:25 Pain Score (VAS): 10/01 I/O: Intake & Output 06/25/24 06/26/24 06/26/24 23:59 07:59 15:59 Intake Total 550 100 Output Total 130 335 Balance 420 -235 Laboratory Tests 06/26/24 04:39 06/26/24 04:39 06/25/24 06/25/24 06/25/24 14:11 17:27 23:36 WBC RBC Hgb Hct MCV MCH MCHC RDW Plt Count MPV Sodium Potassium Chloride Carbon Dioxide Anion Gap BUN Creatinine Estim Creat Clear Calc Estimated GFR Glucose POC Capillary Glucose 127 H 112 H 109 H Calcium Magnesium Total Bilirubin AST ALT Alkaline Phosphatase Total Protein Albumin 06/26/24 04:39 WBC 13.6 H RBC 3.83 L Hgb 10.5 L Hct 33.2 L MCV 86.7 MCH 27.4 MCHC 31.6 L RDW 19.7 H Plt Count 287 MPV 10.5 H Sodium 135 L Potassium 3.7 Chloride 97 L Carbon Dioxide 23 Anion Gap 15 H BUN 76 H D Creatinine 5.50 H Estim Creat Clear Calc 16 Estimated GFR 8 L Glucose 108 POC Capillary Glucose Calcium 9.8 Magnesium 2.4 H Total Bilirubin 1.7 H AST 443 H ALT 71 H Alkaline Phosphatase 288 H Total Protein 7.0 Albumin 3.3 L Microbiology 06/23/24 12:18 Urine [place] Urine Culture - Final Vanco Res Enterococcus faecium 06/23/24 00:18 Sputum Sputum Culture - Preliminary Yeast Present Post-procedural complaints: none Patient Feedback: Patient satisfied with anesthetic care. no sedation. VSS. SIMV vent settings. no active drips running
--- NOTE | 2024-06-26 08:52 | P.PNINT_ITS ---
Progress Note: A&P Assessment and Plan (1) Acute respiratory failure: Code(s): J96.00 - Acute respiratory failure, unspecified whether with hypoxia or hypercapnia Status: Acute Assessment and Plan: Chest x-ray bilateral diffuse pulmonary infiltrates/pulmonary edema. Patient was placed on BiPAP. ABG showed hypercapnic and hypoxemic respiratory failure. Etiology pulmonary edema, pneumonia, ARDS -06/05: patient intubated for impending respiratory failure. Intubation was slightly challenging secondary to body habitus, small mouth, large tongue, redundant tissue in the hypopharynx and anterior vocal cords requiring cricoid pressure and use of glide scope. CT chest 06/17 IMPRESSION: 1. Diffuse lung disease, consistent with pulmonary edema versus pneumonia versus acute respiratory distress syndrome. 2. Cardiomegaly. 3. Small volume of ascites. -currently on CMV mode of ventilation, currently on PEEP down to 8, 45% FiO2, -chest x-ray reviewed and shows improvement although still has diffuse bilateral infiltrates although there has been improvement -continue bronchodilators -patient has significant volume overload and need additional fluid removed patient is being dialyzed again today. -patient has failed her PSV trials multiple times and is not close to showing any signs of weaning - 06/19: Discussed with patient's sister who is the POA and patient's son, they they requested and agreeable for tracheostomy and PEG tube placement 06/25: Patient underwent tracheostomy and G-tube placement 06/26: Will try PSV after dialysis today Off sedation now (2) Septic shock: Code(s): A41.9 - Sepsis, unspecified organism; R65.21 - Severe sepsis with septic shock Status: Acute Assessment and Plan: Septic shock could be related to UTI, pneumonia -patient was hypotensive in the intermediate Unit and was transferred to the ICU which she received fluids, albumin -continue norepinephrine as needed to maintain mean arterial pressure. Currently off -off vancomycin -completed cefepime for a total of 7 days -off stress dose steroids -continue midodrine -06/17: CT chest abdomen and pelvis for ongoing leukocytosis and vasopressor requirement. Will also obtain right lower extremity venous Dopplers since patient has a right lower extremity is erythematous, slightly swollen. 06/05/2024: Echocardiogram Summary 1. Left ventricular chamber dimension is normal. 2. Left ventricular systolic function is normal, estimated at 65-70%. 3. The left ventricular diastolic function is grade I diastolic dysfunction. 4. Right ventricular chamber dimension is moderately enlarged. 5. Right ventricular systolic function is normal. 6. Left atrial chamber dimension is moderately enlarged. 7. Right atrial chamber dimension is moderately enlarged. 8. There is mild to moderate tricuspid valve regurgitation. 11/ overnight patient had a increase in WBC count and high-grade fevers Increased FiO2 requirement and increased endotracheal suction Procalcitonin level 4.9 Lai catheter was changed, UA suggestive of UTI and urine culture is growing Enterococcus Sputum and blood culture ordered CT scan showed - Diffuse patchy bilateral pulmonary ground glass infiltrates suggesting pneumonitis, less likely small airways disease Prominent bilateral lower lobe atelectasis with air bronchograms suggestive of pneumonia Patient also had diarrhea and tested positive for C diff Continue vancomycin, cefepime and Flagyl. Dificid added for C diff Lipase also elevated at 478. Tube feeds are currently on hold (3) JOVI (acute kidney injury): Code(s): N17.9 - Acute kidney failure, unspecified Status: Acute Assessment and Plan: Patient with acute kidney injury, with increase creatinine to 4.60 (creatinine on admission on 06/02/2024 was 2.10 and her creatinine on 04/26/2024 was 0.90) -etiology for acute kidney injury could be multifactorial, hypotension, shock, sepsis, UTI/pneumonia, hypoxia,? SLE flare, CHF, -CK levels are within normal limits -urine eosinophils were negative -urine electrolytes showed prerenal picture, patient seems to be volume overloaded -status post given IV fluids and albumin, will hold fluids for now -discussed with bottle washer machine at [facility], feels that the patient is u nstable to be transferred at this time for CRRT, recommended conventional dialysis. -discussed with quality management nurse at [facility], agrees to conventional dialysis at this time -06/05: dialysis catheter was placed in the right IJ and exchange for the central line -06/05: Initiated dialysis, with 3000 mL of fluid removal -06/06: Dialysis with 3000 mL in fluid removal -06/07: Dialysis with 3700 mL in fluid removal -06/08: Dialysis with 2900 mL in fluid removal -06/09: Dialysis with 3000 mL in fluid removal -06/10: No dialysis -06/12: Patient was dialyzed and 3.1 P L fluid was removed -06/13 getting dialyzed again today. 4 L removed - 06/14: 3000 mL removed - 06/15: 4000 mL fluid was removed - 06/16: 4000 mL in fluid removal with dialysis - 06/18: 4000 ml in fluid removal - 06/20: 4000 mL in fluid removal - 06/22: Patient is getting dialyzed again today 4 L fluid removed Underwent tunneled dialysis catheter placement on 06/22/202406/25: Patient was dialyzed but only half of the session was completed due to patient needing to go to OR for surgery. (4) Pulmonary edema: Code(s): J81.1 - Chronic pulmonary edema Status: Acute Assessment and Plan: Pulmonary edema likely related to acute kidney injury, ARDS, -did not respond to Bumex -continue fluid removal with dialysis (5) Type 2 diabetes mellitus: Code(s): E11.9 - Type 2 diabetes mellitus without complications Status: Acute Assessment and Plan: SSI and accucheks HbA1C is 5.7 this admission (6) Afib: Code(s): I48.91 - Unspecified atrial fibrillation Status: Acute Assessment and Plan: continue amiodarone -Eliquis currently on hold for procedures - flecainide was stopped (7) SLE (systemic lupus erythematosus): Code(s): M32.9 - Systemic lupus erythematosus, unspecified Status: Acute Assessment and Plan: Off steroids (8) Liver cirrhosis secondary to HOFFMANN: Code(s): K75.81 - Nonalcoholic steatohepatitis (HOFFMANN); K74.60 - Unspecified cirrhosis of liver Status: Acute Assessment and Plan: Continues to have mild elevation in LFTs and bilirubin which is stable 06/10/2024: RUQ ultrasound: Fat infiltration. Enlarged left lobe of the liver. Slightly thickened wall of the gallbladder. Trace of ascites. Otherwise, normal Limited ultrasound of the abdomen. -06/10/2024: Hepatitis panel is negative -continue to monitor (9) GERD (gastroesophageal reflux disease): Code(s): K21.9 - Gastro-esophageal reflux disease without esophagitis Status: Acute Assessment and Plan: Continue Protonix (10) Morbid obesity with BMI of 50.0-59.9, adult: Code(s): E66.01 - Morbid (severe) obesity due to excess calories; Z68.43 - Body mass index [BMI] 50.0-59.9, adult Status: Acute Assessment and Plan: Once extubated she will need lifestyle changes (11) Pancreatitis: Code(s): K85.90 - Acute pancreatitis without necrosis or infection, unspecified Status: Acute Assessment and Plan: Lipase elevated CT abdomen pelvis unremarkable On hold tube feeds at this time post G-tube insertion (12) C. difficile diarrhea: Code(s): A04.72 - Enterocolitis due to Clostridium difficile, not specified as recurrent Status: Acute Assessment and Plan: Continue Dificid. Will DC IV Flagyl CT abdomen pelvis reviewed and shows no media Diarrhea seems to have improved but patient is also not on tube feeds Plan DVT prophylaxis: Eliquis on hold for procedures. Continue Lovenox for DVT prophylaxis. Will resume Eliquis in 24 hours if no complications bleeding after surgery. Stress ulcer prophylaxis: Protonix Nutrition: Tube feeds on hold. Will resume once cleared by general surgery Code Status: Full code Critical Care Time Spent: 30 minutes Due to a high probability of clinically significant, life threatening deterioration, the patient required my highest level of preparedness to intervene emergently and I personally spent this critical care time directly and personally managing the patient. This critical care time included obtaining a history; examining the patient; pulse oximetry; ordering and review of studies; arranging urgent treatment with development of a management plan; evaluation of patient's response to treatment; frequent reassessment; and discussions with other providers. It was exclusive of separately billable procedures and treating other patients and teaching time. Please see Assessment and Plan section and the rest of the note for further information on patient assessment and treatment This dictation may have been done utilizing a voice recognition system. Attempts have been made to correct errors. However, there may be uncorrected grammatical, spelling, and recognitions errors present Subjective Date/time seen: 06/26/24 Overnight events reviewed. Patient underwent tracheostomy and G-tube placement yesterday. Hemodialysis session was cut short due to timing of surgery. She continues to have low-grade fevers. Now off sedation awake follows commands. Continues to be on mechanical ventilation Off of all he continuous infusions Other Vitals acceptable Diarrhea seems to have improved. Off tube feeds. Interval history: Reason for consult: Acute respiratory failure, septic shock, acute kidney injury, pulmonary edema 06/05: Intubated and hemodialysis initiated 06/22: Tunneled dialysis catheter placed 06/25: Tracheostomy and G-tube placement Review of Systems Review of Systems: ROS unobtainable: Yes unobtainable due to endotracheal tube, unobtainable due to medical condition and unobtainable due to mental status Exam Narrative: General: Morbidly obese female currently intubated and in no acute distress HEENT:? Pupils equal and reactive bilaterally, sclera is clear, trach in place Neck:, short and thick neck, Respiratory:? Decreased and coarse breath sounds bilaterally, no wheezing, Cardiac:? S1-S2 is normal, regular rate and rhythm Abdomen:? Morbid obesity, soft, hypoactive bowel sounds G-tube in place Extremities:? Bilateral lower extremity pitting edema improving, wrinkling of skin on the feet are noted, palpable pedal pulses. Right calf is warm, erythe matous, nontender Neuro:? Patient is intubated, opens her eyes, follows simple commands in all extremities and nods to questions Skin:? Erythema in the intertriginous region and under her pannus, skin is dry and warm Psych:? Unable to assess at this time Objective Data Vital Signs Vital Signs: Vital Signs - 24 hr 06/25/24 09:00 06/25/24 09:15 06/25/24 09:30 Temperature Pulse Rate 74 73 70 Respiratory Rate Blood Pressure 100/56 L 123/61 122/63 Pulse Oximetry Oxygen Delivery Fraction of Inspired Oxygen 06/25/24 09:45 06/25/24 10:00 06/25/24 10:15 Temperature Pulse Rate 71 76 73 Respiratory Rate Blood Pressure 121/62 92/53 L 114/57 L Pulse Oximetry Oxygen Delivery Fraction of Inspired Oxygen 06/25/24 10:00 06/25/24 10:00 06/25/24 10:00 Temperature 37.5 C Pulse Rate 69 69 69 Respiratory Rate 25 H 25 H Blood Pressure 113/60 Pulse Oximetry 95 Oxygen Delivery Fraction of Inspired Oxygen 06/25/24 10:00 06/25/24 10:00 06/25/24 10:50 Temperature Pulse Rate 69 72 Respiratory Rate 25 H Blood Pressure Pulse Oximetry 95 Oxygen Delivery Mechanical Ventilation Fraction of Inspired Oxygen 45 45 06/25/24 11:45 06/25/24 11:45 06/25/24 11:45 Temperature 37.6 C Pulse Rate 70 Respiratory Rate 25 H Blood Pressure 109/54 L Pulse Oximetry 97 95 Oxygen Delivery Mechanical Ventilation Fraction of Inspired Oxygen 45 45 06/25/24 11:45 06/25/24 11:45 06/25/24 11:45 Temperature Pulse Rate 70 70 70 Respiratory Rate 24 H 24 H Blood Pressure Pulse Oximetry Oxygen Delivery Fraction of Inspired Oxygen 06/25/24 10:30 06/25/24 11:32 06/25/24 10:45 Temperature 37.6 C Pulse Rate 72 70 70 Respiratory Rate 25 H Blood Pressure 113/60 100/52 L 111/58 L Pulse Oximetry 96 Oxygen Delivery Fraction of Inspired Oxygen 06/25/24 11:00 06/25/24 11:15 06/25/24 11:24 Temperature Pulse Rate 70 72 72 Respiratory Rate Blood Pressure 107/58 L 103/59 L 103/59 L Pulse Oximetry Oxygen Delivery Fraction of Inspired Oxygen 06/25/24 14:09 06/25/24 14:00 06/25/24 15:00 Temperature Pulse Rate 71 72 72 Respiratory Rate 26 H 26 H Blood Pressure Pulse Oximetry 94 Oxygen Delivery Mechanical Ventilation Fraction of Inspired Oxygen 45 06/25/24 14:05 06/25/24 14:05 06/25/24 14:10 Temperature 37.4 C Pulse Rate 72 72 Respiratory Rate 25 H Blood Pressure 122/67 Pulse Oximetry 91 Oxygen Delivery Fraction of Inspired Oxygen 45 06/25/24 15:56 06/25/24 16:00 06/25/24 16:00 Temperature 37.6 C Pulse Rate 68 Respiratory Rate 22 H Blood Pressure 114/58 L Pulse Oximetry 91 95 Oxygen Delivery Mechanical Ventilation Fraction of Inspired Oxygen 45 45 06/25/24 16:10 06/25/24 16:00 06/25/24 16:00 Temperature Pulse Rate 68 68 67 Respiratory Rate 24 H Blood Pressure Pulse Oximetry 95 Oxygen Delivery Mechanical Ventilation Fraction of Inspired Oxygen 45 06/25/24 18:00 06/25/24 18:00 06/25/24 18:00 Temperature 37.7 C H Pulse Rate 67 67 67 Respiratory Rate 24 H 24 H Blood Pressure 111/55 L Pulse Oximetry 96 Oxygen Delivery Fraction of Inspired Oxygen 06/25/24 20:21 06/25/24 20:00 06/25/24 20:00 Temperature 37.9 C H Pulse Rate 68 67 67 Respiratory Rate 23 H Blood Pressure 108/54 L Pulse Oximetry 96 Oxygen Delivery Fraction of Inspired Oxygen 06/25/24 20:00 06/25/24 20:00 06/25/24 20:00 Temperature Pulse Rate 67 Respiratory Rate 23 H Blood Pressure Pulse Oximetry 96 Oxygen Delivery Mechanical Ventilation Fraction of Inspired Oxygen 45 45 06/25/24 21:12 06/25/24 21:15 06/25/24 22:00 Temperature Pulse Rate 70 68 69 Respiratory Rate 24 H Blood Pressure Pulse Oximetry 96 Oxygen Delivery Mechanical Ventilation Fraction of Inspired Oxygen 45 06/25/24 22:00 06/25/24 22:00 06/25/24 23:53 Temperature Pulse Rate 69 69 Respiratory Rate 25 H 25 H Blood Pressure 109/55 L Pulse Oximetry 95 95 Oxygen Delivery Mechanical Ventilation Fraction of Inspired Oxygen 45 06/25/24 23:56 06/26/24 00:00 06/26/24 00:00 Temperature Pulse Rate 69 69 Respiratory Rate 34 H Blood Pressure Pulse Oximetry Oxygen Delivery Fraction of Inspired Oxygen 45 06/26/24 00:00 06/25/24 23:48 06/26/24 02:00 Temperature 38.1 C H Pulse Rate 69 69 72 Respiratory Rate 34 H Blood Pressure 113/57 L Pulse Oximetry 95 95 Oxygen Delivery Mechanical Ventilation Fraction of Inspired Oxygen 45 06/26/24 02:00 06/26/24 02:00 06/26/24 02:39 Temperature 38.2 C H Pulse Rate 72 72 73 Respiratory Rate 27 H 27 H Blood Pressure 115/59 L Pulse Oximetry 95 95 Oxygen Delivery Mechanical Ventilation Fraction of Inspired Oxygen 45 06/26/24 02:44 06/26/24 02:55 06/26/24 04:00 Temperature Pulse Rate 73 74 76 Respiratory Rate 26 H 26 H Blood Pressure Pulse Oximetry Oxygen Delivery Fraction of Inspired Oxygen 06/26/24 04:00 06/26/24 04:00 06/26/24 04:00 Temperature 38.3 C H Pulse Rate 76 76 Respiratory Rate 25 H 25 H Blood Pressure 125/64 Pulse Oximetry 95 Oxygen Delivery Fraction of Inspired Oxygen 45 06/26/24 05:06 06/26/24 05:25 06/26/24 06:00 Temperature 38.3 C H Pulse Rate 74 69 Respiratory Rate 22 H Blood Pressure Pulse Oximetry 97 Oxygen Delivery Mechanical Ventilation Fraction of Inspired Oxygen 45 06/26/24 06:00 06/26/24 06:00 06/26/24 06:00 Temperature 38.3 C H 38.3 C H Pulse Rate 55 L 70 Respiratory Rate 22 H Blood Pressure 116/55 L Pulse Oximetry 95 Oxygen Delivery Fraction of Inspired Oxygen 06/26/24 04:00 06/26/24 08:38 06/26/24 08:38 Temperature Pulse Rate 71 71 Respiratory Rate 26 H Blood Pressure Pulse Oximetry 95 97 Oxygen Delivery Mechanical Ventilation Mechanical Ventilation Fraction of Inspired Oxygen 45 45 Intake/Output Intake/Output: Intake & Output 06/24/24 06/24/24 06/25/24 06/26/24 00:59 23:59 23:59 23:59 Intake Total 1280.8 100 Output Total 2815 335 Balance -1534.2 -235 Meds/Results Medications: Active Medications Generic Name Dose Route Start Last Admin Trade Name Freq PRN Reason Stop Dose Admin Acetaminophen 650 mg 06/07/24 21:53 06/26/24 05:06 Acetaminophen Elixir 325 Mg/10.15 Ml Udc PO 650 mg Q6H PRN Administration Mild Pain (1-3) or Fever Albuterol/Ipratropium 3 ml 06/05/24 11:15 06/26/24 08:34 Ipratropium 0.5 Mg/Albuterol Sulfate 2.5 Mg Ampul.Neb 3 Ml INHALATION 3 ml Q6HRT JOHN Administration Amiodarone HCl 200 mg 06/02/24 21:00 06/25/24 20:21 Amiodarone Hcl 200 Mg Tablet PO 200 mg Q12HR JOHN Administration Dextrose 12.5 gm 06/05/24 11:46 Dextrose 50% 25 Gm/50 Ml Syringe IV PUSH PRN PRN Hypoglycemia Protocol Enoxaparin Sodium 30 mg 06/24/24 09:00 06/24/24 08:21 Enoxaparin 30 Mg/0.3 Ml Syringe SUB-Q 30 mg DAILY JOHN Administration Epoetin Shayan-epbx 10,000 units 06/18/24 09:00 06/25/24 10:22 Epoetin Shayan-Epbx 10,000 Units/Ml Vial IV PUSH 10,000 units MOWEFR@09 JOHN Administration Fidaxomicin 200 mg 06/24/24 01:35 [employer] 06/25/24 20:27 Fidaxomicin 200 Mg Tablet PO 200 mg Q12HR JOHN Administration Glucagon 1 mg 06/05/24 11:46 Glucagon For Inj 1 Mg Vial IM PRN PRN Hypoglycemia Protocol Glucose 15 gm 06/05/24 11:46 Glucose Oral Gel 15 Gm Of Glucse In 37.5 Gm Tube PO PRN PRN Hypoglycemia Protocol Dextrose 1,000 mls @ 100 mls/hr 06/05/24 11:46 Dextrose 5% 1,000 Ml IVPB PRN PRN Hypoglycemia Protocol Albumin Human 50 mls @ 999 mls/hr 06/08/24 09:50 06/12/24 11:39 Albutein IVPB 07/08/24 09:49 Infused Q10M PRN Infusion HYPOTENSION Midazolam HCl 100 mg in 100 mls @ 0 mls/hr 06/21/24 09:45 06/26/24 06:00 Versed 100 Mg/Ns 100 Ml IV CONT 0 mg/hr .Q0M JOHN 0 mls/hr Titration Protocol Metronidazole 500 mg in 100 mls @ 100 mls/hr 06/24/24 07:55 06/26/24 06:20 Flagyl 500 Mg/Iso Soln 100 Ml IVPB Infused Q8HR JOHN Infusion Cefepime HCl 0.5 gm/ Dextrose 50 mls @ 100 mls/hr 06/24/24 09:00 06/25/24 21:05 IVPB Infused Q12H JOHN Infusion Linezolid 600 mg in 300 mls @ 300 mls/hr 06/25/24 21:00 06/25/24 23:52 Zyvox IVPB Infused Q12HR JOHN Infusion Insulin Aspart 3 - 6 units 06/05/24 12:00 06/26/24 05:06 Insulin Aspart (*Bkc) 100 Units/Ml SUB-Q Not Given Q6HR JOHN Protocol Midodrine 10 mg 06/17/24 22:00 06/26/24 05:06 Midodrine Hcl 10 Mg Tablet PO 10 mg Q8H JOHN Administration Multi-Ingred Cream/Lotion/Oil/Oint 1 applic 06/05/24 09:00 06/25/24 20:21 Mineral Oil/White Petrolatum Ointment EACH EYE 1 applic Q12HR JOHN Administration Ondansetron HCl 4 mg 06/11/24 07:47 06/23/24 21:44 Ondansetron Inj 4 Mg/2 Ml Vial IV PUSH 4 mg Q6H PRN Administration Nausea And Vomiting Pantoprazole Sodium 40 mg 06/06/24 09:00 06/25/24 20:21 Pantoprazole Sodium Iv 40 Mg Vial IV PUSH 40 mg Q12HR [facility] Administration Umeclidinium [place] 1 puff 06/03/24 08:00 06/14/24 12:38 Umeclidinium [place] 62.5 Mcg Ellipta INHALATION Not Given DAILYRT [facility] Radiology Results: ITS Impressions Renal Ultrasound 06/04/24 15:06 IMPRESSION: 1. Normal kidneys. No hydronephrosis. Abdomen Ultrasound 06/10/24 14:47 IMPRESSION: Fat infiltration. Enlarged left lobe of the liver. Slightly thickened wall of the gallbladder. Trace of ascites. Otherwise, normal Limited ultrasound of the abdomen. Abdomen X-Ray 06/16/24 13:54 IMPRESSION: 1. Nasogastric tube tip in the stomach. 2. Nonobstructive bowel gas pattern. 3. Diffuse lung disease, consistent with pulmonary edema versus pneumonia. 4. Cardiomegaly. Venous Doppler Study 06/17/24 11:49 IMPRESSION: 1. No deep venous thrombosis. Central Venous Line 06/22/24 14:36 IMPRESSION: 1. Right internal jugular central venous catheter tip at the caudal superior vena cava. Chest X-Ray 06/24/24 07:06 IMPRESSION: 1. Unchanged opacities in the left mid to lower lung zone which could represent atelectasis or pneumonia. 2. Cardiomegaly with interval improvement in prior pulmonary vascular congestion. Chest/Abdomen/Pelvis CT 06/24/24 21:07 IMPRESSION: Diffuse patchy bilateral pulmonary ground glass infiltrates suggesting pneumonitis, less likely small airways disease Prominent bilateral lower lobe atelectasis with air bronchograms Cardiomegaly Splenomegaly Labs Labs: Laboratory Results - last 24 hr 06/25/24 06/25/24 06/25/24 14:11 17:27 23:36 WBC RBC Hgb Hct MCV MCH MCHC RDW Plt Count MPV Sodium Potassium Chloride Carbon Dioxide Anion Gap BUN Creatinine Estim Creat Clear Calc Estimated GFR Glucose POC Capillary Glucose 127 H 112 H 109 H Calcium Magnesium Total Bilirubin AST ALT Alkaline Phosphatase Total Protein Albumin 06/26/24 04:39 WBC 13.6 H RBC 3.83 L Hgb 10.5 L Hct 33.2 L MCV 86.7 MCH 27.4 MCHC 31.6 L RDW 19.7 H Plt Count 287 MPV 10.5 H Sodium 135 L Potassium 3.7 Chloride 97 L Carbon Dioxide 23 Anion Gap 15 H BUN 76 H D Creatinine 5.50 H Estim Creat Clear Calc 16 Estimated GFR 8 L Glucose 108 POC Capillary Glucose Calcium 9.8 Magnesium 2.4 H Total Bilirubin 1.7 H AST 443 H ALT 71 H Alkaline Phosphatase 288 H Total Protein 7.0 Albumin 3.3 L Quality VTE Prophylaxis VTE prophylaxis: pharmacologic ordered
[2024-06-26] MEDS: CEFEPIME 0.5 GM in DEXTROSE 5% IN WATER 50 ML IVPB ×2 (09:25→20:50)
[2024-06-26] MEDS: ENOXAPARIN 30 MG/0.3 ML SYRINGE SUB-Q (09:25)
[2024-06-26] MEDS: PANTOPRAZOLE SODIUM IV 40 MG VIAL IV PUSH ×2 (09:25→20:53)
[2024-06-26] MEDS: MINERAL OIL/WHITE PETROLATUM OINTMENT 1 APPLIC EACH EYE ×2 (09:25→20:53)
[2024-06-26] MEDS: AMIODARONE HCL 200 MG TABLET PO ×2 (09:56→20:49)
[2024-06-26] MEDS: LINEZOLID 600 MG/300 ML 600 MG/300 ML SOLN 300 MG IVPB ×2 (09:56→20:50)
[2024-06-26] MEDS: FIDAXOMICIN 200 MG TABLET PO ×2 (09:56→20:49)
--- NOTE | 2024-06-26 09:57 | P.PNNP_ITS ---
Progress Note: A&P Assessment and Plan (1) JOVI (acute kidney injury): Code(s): N17.9 - Acute kidney failure, unspecified Status: Acute Assessment and Plan: * no real significant improvement to date * normal creatinine ~ 1 month ago * admitted with a creatinine of 2.1mg/dl with ongoing worsening noted * due to multifactorial ATN: * hemodynamic instability/shock * sepsis * infection (UTI +/- pneumonia) -- although culture negative to date * hypoxia * other? * evaluation to date noted: * renal ultrasound negative for obstruction * urine eosinophils negative * urine electrolytes pre-renal (in spite of evidence of volume overload) * CPK low * moderate proteinuria (~ 600mg) * UA with blood and protein (and negative urine culture) * has been dialysis dependent since 06/05 * s/p daily dialysis alternating with DUF (except Sundays) to facilitate euvolemia * HD tomorrow and continue Tue/Tue/Tuesday schedule * s/p tunneled HD catheter placement on 06/22/24 * follow repeat labs and UOP to assess for potential renal recovery (2) Acute respiratory failure: Code(s): J96.00 - Acute respiratory failure, unspecified whether with hypoxia or hypercapnia Status: Acute Assessment and Plan: * intubated on 06/05 for impending respiratory failure * failed BiPAP therapy * ABG with noted hypercapnea and hypoxia * secondary to pulmonary edema, diffuse bilateral infiltrates and ARDS * on bronchodilators * weaned off steroids * continue dialysis/dry ultrafiltration for fluid removal * s/p tracheostomy and G-tube placement on 06/25 (3) Septic shock: Code(s): A41.9 - Sepsis, unspecified organism; R65.21 - Severe sepsis with septic shock Status: Acute Assessment and Plan: * initially thought to be secondary to UTI and pneumonia * was on levophed therapy to maintain MAP * weaned off and being used PRN * Echo results noted * continue midodrine * culture data noted: * blood/urine cultures from 06/02 negative * blood culture 06/06 with E. coli and Staph epidermidis * urine culture on 06/06 negative. * blood culture on 06/08 negative * sputum culture on 06/23 with yeast * urine culture on 06/23 with Enterococcus * follow repeat culture data * resumed on antibiotics due to fevers * follow trend of hemodynamics (4) Pulmonary edema: Code(s): J81.1 - Chronic pulmonary edema Status: Acute Assessment and Plan: * contributing to #2 * secondary to JOVI/ARF but ARDS an issues as well * failed diuretic therapy * HD/DUF for fluid removal * almost 22L negative since admission (5) C. difficile diarrhea: Code(s): A04.72 - Enterocolitis due to Clostridium difficile, not specified as recurrent Status: Acute Assessment and Plan: * currently on Dificid and IV Flagyl * CT abdomen pelvis results noted (6) Afib: Code(s): I48.91 - Unspecified atrial fibrillation Status: Acute Assessment and Plan: * rate control strategy * on amiodarone and Eliquis * anticoagulation on hold for procedures (7) Anemia: Code(s): D64.9 - Anemia, unspecified Status: Acute Assessment and Plan: * related to JOVI and acute/critical illness * KIRILL with HD * follow trend of H/H (8) Liver cirrhosis secondary to HOFFMANN: Code(s): K75.81 - Nonalcoholic steatohepatitis (HOFFMANN); K74.60 - Unspecified cirrhosis of liver Status: Acute Assessment and Plan: * known history * normal liver by recent imaging * noted elevations in AST/ALT that have been up and down * fluctuating LFTS thought to be more related to congestion/volume overload * continue to follow (9) Type 2 diabetes mellitus: Code(s): E11.9 - Type 2 diabetes mellitus without complications Status: Acute Assessment and Plan: * follow accu-cheks * glycemic control per water inspector/hospitalist Will continue to follow. Subjective Date/time seen: 06/26/24 09:57 Interval history: Follow-up for acute kidney injury/acute renal failure with dialysis dependence. Tolerated dialysis treatment yesterday but procedure was cut short due to timing of surgery yesterday afternoon; s/p tracheostomy and G-tube placement in OR yesterday afternoon and tolerated both interventions reasonably well; remains on ventilator support via tracheostomy with stable mentation off sedation; stable hemodynamics noted and diarrhea seems to have improved as well; stll with on/off fevers. Exam Narrative: General: large female on mechanical ventilation via tracheostomy Heart: normal S1 and S2; no rub Lungs: coarse breath sounds; decreased at bases Abdomen: obese but soft, nontender, nondistended, positive bowel sounds Extremities: no cyanosis or clubbing; trace - 1+ edema Skin: no nodules Objective Data Vital Signs Vital Signs: Vital Signs Temp Pulse Resp BP Pulse Ox O2 Del Method FiO2 06/26/24 08:00 100.6 F H 75 29 H 121/59 L 97 06/26/24 08:50 76 26 H 06/26/24 09:56 73 06/26/24 08:38 71 26 H 06/26/24 08:38 71 97 Mechanical Ventilation 45 06/26/24 04:00 95 Mechanical Ventilation 45 06/26/24 06:00 101 F H 70 22 H 116/55 L 95 06/26/24 06:00 55 L 06/26/24 06:00 101 F H 06/26/24 06:00 69 22 H 06/26/24 05:25 74 97 Mechanical Ventilation 45 06/26/24 05:06 101 F H 06/26/24 04:00 45 06/26/24 04:00 76 25 H 06/26/24 04:00 100.9 F H 76 25 H 125/64 95 06/26/24 04:00 76 06/26/24 02:55 74 26 H 06/26/24 02:44 73 26 H 06/26/24 02:39 73 95 Mechanical Ventilation 45 06/26/24 02:00 72 27 H 06/26/24 02:00 100.7 F H 72 27 H 115/59 L 95 06/26/24 02:00 72 06/25/24 23:48 69 95 Mechanical Ventilation 45 06/26/24 00:00 100.6 F H 69 34 H 113/57 L 95 06/26/24 00:00 69 06/26/24 00:00 69 34 H 06/25/24 23:56 45 06/25/24 23:53 95 Mechanical Ventilation 45 06/25/24 22:00 69 25 H 06/25/24 22:00 69 25 H 109/55 L 95 06/25/24 22:00 69 06/25/24 21:15 68 24 H 06/25/24 21:12 70 96 Mechanical Ventilation 45 06/25/24 20:00 45 06/25/24 20:00 96 Mechanical Ventilation 45 06/25/24 20:00 67 23 H 06/25/24 20:00 100.3 F H 67 23 H 108/54 L 96 06/25/24 20:00 67 06/25/24 20:21 68 06/25/24 18:00 67 24 H 06/25/24 18:00 99.9 F H 67 24 H 111/55 L 96 06/25/24 18:00 67 06/25/24 16:00 67 24 H 06/25/24 16:00 68 06/25/24 16:10 68 95 Mechanical Ventilation 45 06/25/24 16:00 99.6 F 68 22 H 114/58 L 95 06/25/24 16:00 91 Mechanical Ventilation 45 06/25/24 15:56 45 06/25/24 14:10 45 06/25/24 14:05 72 06/25/24 14:05 99.4 F 72 25 H 122/67 91 06/25/24 15:00 72 26 H 06/25/24 14:00 72 26 H 06/25/24 14:09 71 94 Mechanical Ventilation 45 Intake/Output Intake/Output: Intake & Output 06/24/24 06/24/24 06/25/24 06/26/24 00:59 23:59 23:59 23:59 Intake Total 1280.8 150 Output Total 2815 335 Balance -1534.2 -185 Meds/Results Medications: Active Medications Generic Name Dose Route Start Last Admin Trade Name Freq PRN Reason Stop Dose Admin Acetaminophen 650 mg 06/07/24 21:53 06/26/24 05:06 Acetaminophen Elixir 325 Mg/10.15 Ml Udc PO 650 mg Q6H PRN Administration Mild Pain (1-3) or Fever Albuterol/Ipratropium 3 ml 06/05/24 11:15 06/26/24 08:34 Ipratropium 0.5 Mg/Albuterol Sulfate 2.5 Mg Ampul.Neb 3 Ml INHALATION 3 ml Q6HRT JOHN Administration Amiodarone HCl 200 mg 06/02/24 21:00 06/26/24 09:56 Amiodarone Hcl 200 Mg Tablet PO 200 mg Q12HR JOHN Administration Dextrose 12.5 gm 06/05/24 11:46 Dextrose 50% 25 Gm/50 Ml Syringe IV PUSH PRN PRN Hypoglycemia Protocol Enoxaparin Sodium 30 mg 06/24/24 09:00 06/26/24 09:25 Enoxaparin 30 Mg/0.3 Ml Syringe SUB-Q 30 mg DAILY JOHN Administration Epoetin Shayan-epbx 10,000 units 06/18/24 09:00 06/25/24 10:22 Epoetin Shayan-Epbx 10,000 Units/Ml Vial IV PUSH 10,000 units MOWEFR@09 JOHN Administration Fidaxomicin 200 mg 06/24/24 01:35 CUSTOMER SPECIALIST 06/26/24 09:56 Fidaxomicin 200 Mg Tablet PO 200 mg Q12HR JOHN Administration Glucagon 1 mg 06/05/24 11:46 Glucagon For Inj 1 Mg Vial IM PRN PRN Hypoglycemia Protocol Glucose 15 gm 06/05/24 11:46 Glucose Oral Gel 15 Gm Of Glucse In 37.5 Gm Tube PO PRN PRN Hypoglycemia Protocol Dextrose 1,000 mls @ 100 mls/hr 06/05/24 11:46 Dextrose 5% 1,000 Ml IVPB PRN PRN Hypoglycemia Protocol Albumin Human 50 mls @ 999 mls/hr 06/08/24 09:50 06/12/24 11:39 Albutein IVPB 07/08/24 09:49 Infused Q10M PRN Infusion HYPOTENSION Metronidazole 500 mg in 100 mls @ 100 mls/hr 06/24/24 07:55 06/26/24 06:20 Flagyl 500 Mg/Iso Soln 100 Ml IVPB Infused Q8HR JOHN Infusion Cefepime HCl 0.5 gm/ Dextrose 50 mls @ 100 mls/hr 06/24/24 09:00 06/26/24 09:55 IVPB Infused Q12H JOHN Infusion Linezolid 600 mg in 300 mls @ 300 mls/hr 06/25/24 21:00 06/26/24 09:56 Zyvox IVPB 300 mls/hr Q12HR JOHN Administration Insulin Aspart 3 - 6 units 06/05/24 12:00 06/26/24 12:04 Insulin Aspart (*Bkc) 100 Units/Ml SUB-Q Not Given Q6HR [facility] Protocol Midodrine 10 mg 06/17/24 22:00 06/26/24 05:06 Midodrine Hcl 10 Mg Tablet PO 10 mg Q8H JOHN Administration Multi-Ingred Cream/Lotion/Oil/Oint 1 applic 06/05/24 09:00 06/26/24 09:25 Mineral Oil/White Petrolatum Ointment EACH EYE 1 applic Q12HR JOHN Administration Ondansetron HCl 4 mg 06/11/24 07:47 06/23/24 21:44 Ondansetron Inj 4 Mg/2 Ml Vial IV PUSH 4 mg Q6H PRN Administration Nausea And Vomiting Pantoprazole Sodium 40 mg 06/06/24 09:00 06/26/24 09:25 Pantoprazole Sodium Iv 40 Mg Vial IV PUSH 40 mg Q12HR JOHN Administration Umeclidinium [place] 1 puff 06/03/24 08:00 06/14/24 12:38 Umeclidinium [place] 62.5 Mcg Ellipta INHALATION Not Given DAILYRT [facility] Radiology Results: ITS Impressions Renal Ultrasound 06/04/24 15:06 IMPRESSION: 1. Normal kidneys. No hydronephrosis. Abdomen Ultrasound 06/10/24 14:47 IMPRESSION: Fat infiltration. Enlarged left lobe of the liver. Slightly thickened wall of the gallbladder. Trace of ascites. Otherwise, normal Limited ultrasound of the abdomen. Abdomen X-Ray 06/16/24 13:54 IMPRESSION: 1. Nasogastric tube tip in the stomach. 2. Nonobstructive bowel gas pattern. 3. Diffuse lung disease, consistent with pulmonary edema versus pneumonia. 4. Cardiomegaly. Venous Doppler Study 06/17/24 11:49 IMPRESSION: 1. No deep venous thrombosis. Central Venous Line 06/22/24 14:36 IMPRESSION: 1. Right internal jugular central venous catheter tip at the caudal superior vena cava. Chest X-Ray 06/24/24 07:06 IMPRESSION: 1. Unchanged opacities in the left mid to lower lung zone which could represent atelectasis or pneumonia. 2. Cardiomegaly with interval improvement in prior pulmonary vascular congestion. Chest/Abdomen/Pelvis CT 06/24/24 21:07 IMPRESSION: Diffuse patchy bilateral pulmonary ground glass infiltrates suggesting pneumonitis, less likely small airways disease Prominent bilateral lower lobe atelectasis with air bronchograms Cardiomegaly Splenomegaly Labs Labs: Laboratory Tests 06/26/24 04:39 06/26/24 04:39 Calcium 9.8 Magnesium 2.4 H Total Bilirubin 1.7 H AST 443 H ALT 71 H Alkaline Phosphatase 288 H Total Protein 7.0 Albumin 3.3 L Microbiology 06/23/24 00:18 Sputum Sputum Culture - Final Yeast Present 06/23/24 12:18 Urine [place] Urine Culture - Final Vanco Res Enterococcus faecium
--- NOTE | 2024-06-26 10:28 | PCNFU ---
Nutrition Follow-Up Complete: Suboptimal Energy Intake as related to mechanical ventilator as evidenced by NPO. Meet estimated nutritional needs- Goal not being met today, tube feeding on hold Goal: Pt current nutrition is ON HOLD awaiting okay by surgery to use new PEG tube. Nutrition recommendation: Restart tube feeding when cleared by surgery: Nepro @ 50 ml/h for 1980 kcal, 89 g protein, 800 ml free water. Flush 30 ml q 4 hours Last recorded weight is 145.6 kg. Bowel Motility:+1 BM 06/26/24 Labs Reviewed: Hgb 9.6, Hct 31.8, Alb 3.3, BUN 103, Cre 6.1 Meds Noted: No sedation. No pressors. Protonix, zofran, insulin Skin No pressure injuries: Additional Notes: Pt had tracheostomy and PEG placement yesterday. To restart TF when okayed by surgery. Will monitor weight, labs, skin, meds, diet orders every Tuesday and Tuesday.
[2024-06-26 12:25] LABS: Glucose Point of Care 103 mg/dl (65-105)
--- NOTE | 2024-06-26 13:01 | PM.PNGS ---
Progress Note: A&P Assessment and Plan (1) Acute respiratory failure: Code(s): J96.00 - Acute respiratory failure, unspecified whether with hypoxia or hypercapnia Status: Acute Assessment and Plan: POD1 following open gastrostomy tube placement. Okay to start tube feedings at 10 mL/hr and advance as tolerated. Check residuals Q4H. Incision looks good but has a fair amount of drainage that appears consistent with ascites, change dressing as needed. (2) JOVI (acute kidney injury): Code(s): N17.9 - Acute kidney failure, unspecified Status: Acute Assessment and Plan: Still anuric and requiring dialysis (3) Septic shock: Code(s): A41.9 - Sepsis, unspecified organism; R65.21 - Severe sepsis with septic shock Status: Acute (4) Pulmonary edema: Code(s): J81.1 - Chronic pulmonary edema Status: Acute (5) Afib: Code(s): I48.91 - Unspecified atrial fibrillation Status: Acute (6) Anticoagulated by anticoagulation treatment: Code(s): Z79.01 - FDC (current) use of anticoagulants Status: Acute (7) SLE (systemic lupus erythematosus): Code(s): M32.9 - Systemic lupus erythematosus, unspecified Status: Acute (8) Liver cirrhosis secondary to HOFFMANN: Code(s): K75.81 - Nonalcoholic steatohepatitis (HOFFMANN); K74.60 - Unspecified cirrhosis of liver Status: Acute (9) Morbid obesity with BMI of 50.0-59.9, adult: Code(s): E66.01 - Morbid (severe) obesity due to excess calories; Z68.43 - Body mass index [BMI] 50.0-59.9, adult Status: Acute Plan I have discussed the patient's case and plan of care with Dr. Albert. Subjective Subjective Date/Time Seen: 06/26/24 13:01 Interval history: 06/25/24 - Open gastrostomy tube placement, tracheostomy 06/22/24 - Tunneled dialysis catheter, removal of prior temporary hemodialysis catheter Patient seen in the ICU. She is intubated and sedated. No acute issues overnight per nursing. Exam Const: General: ill appearing Orientation/consciousness: patient obtunded (Intubated) Neck: Neck: tracheostomy present GI: Inspection: incision (Dressing saturated with serous drainage and changed, tee intact), Pannus present, obesity and other (Gastrostomy tube in place and clamped, serous drainage on gauze dressing) GI Palp: Yes Soft to palpation and No Guarding due to palpation present (GI) Auscultation: normal bowel sounds Objective Data Vital Signs Vital Signs: Vital Signs - 24 hr 06/25/24 14:09 06/25/24 14:00 06/25/24 15:00 Temperature Pulse Rate 71 72 72 Respiratory Rate 26 H 26 H Blood Pressure Pulse Oximetry 94 Oxygen Delivery Mechanical Ventilation Fraction of Inspired Oxygen 45 06/25/24 14:05 06/25/24 14:05 06/25/24 14:10 Temperature 99.4 F Pulse Rate 72 72 Respiratory Rate 25 H Blood Pressure 122/67 Pulse Oximetry 91 Oxygen Delivery Fraction of Inspired Oxygen 45 06/25/24 15:56 06/25/24 16:00 06/25/24 16:00 Temperature 99.6 F Pulse Rate 68 Respiratory Rate 22 H Blood Pressure 114/58 L Pulse Oximetry 91 95 Oxygen Delivery Mechanical Ventilation Fraction of Inspired Oxygen 45 45 06/25/24 16:10 06/25/24 16:00 06/25/24 16:00 Temperature Pulse Rate 68 68 67 Respiratory Rate 24 H Blood Pressure Pulse Oximetry 95 Oxygen Delivery Mechanical Ventilation Fraction of Inspired Oxygen 45 06/25/24 18:00 06/25/24 18:00 06/25/24 18:00 Temperature 99.9 F H Pulse Rate 67 67 67 Respiratory Rate 24 H 24 H Blood Pressure 111/55 L Pulse Oximetry 96 Oxygen Delivery Fraction of Inspired Oxygen 06/25/24 20:21 06/25/24 20:00 06/25/24 20:00 Temperature 100.3 F H Pulse Rate 68 67 67 Respiratory Rate 23 H Blood Pressure 108/54 L Pulse Oximetry 96 Oxygen Delivery Fraction of Inspired Oxygen 06/25/24 20:00 06/25/24 20:00 06/25/24 20:00 Temperature Pulse Rate 67 Respiratory Rate 23 H Blood Pressure Pulse Oximetry 96 Oxygen Delivery Mechanical Ventilation Fraction of Inspired Oxygen 45 45 06/25/24 21:12 06/25/24 21:15 06/25/24 22:00 Temperature Pulse Rate 70 68 69 Respiratory Rate 24 H Blood Pressure Pulse Oximetry 96 Oxygen Delivery Mechanical Ventilation Fraction of Inspired Oxygen 45 06/25/24 22:00 06/25/24 22:00 06/25/24 23:53 Temperature Pulse Rate 69 69 Respiratory Rate 25 H 25 H Blood Pressure 109/55 L Pulse Oximetry 95 95 Oxygen Delivery Mechanical Ventilation Fraction of Inspired Oxygen 45 06/25/24 23:56 06/26/24 00:00 06/26/24 00:00 Temperature Pulse Rate 69 69 Respiratory Rate 34 H Blood Pressure Pulse Oximetry Oxygen Delivery Fraction of Inspired Oxygen 45 06/26/24 00:00 06/25/24 23:48 06/26/24 02:00 Temperature 100.6 F H Pulse Rate 69 69 72 Respiratory Rate 34 H Blood Pressure 113/57 L Pulse Oximetry 95 95 Oxygen Delivery Mechanical Ventilation Fraction of Inspired Oxygen 45 06/26/24 02:00 06/26/24 02:00 06/26/24 02:39 Temperature 100.7 F H Pulse Rate 72 72 73 Respiratory Rate 27 H 27 H Blood Pressure 115/59 L Pulse Oximetry 95 95 Oxygen Delivery Mechanical Ventilation Fraction of Inspired Oxygen 45 06/26/24 02:44 06/26/24 02:55 06/26/24 04:00 Temperature Pulse Rate 73 74 76 Respiratory Rate 26 H 26 H Blood Pressure Pulse Oximetry Oxygen Delivery Fraction of Inspired Oxygen 06/26/24 04:00 06/26/24 04:00 06/26/24 04:00 Temperature 100.9 F H Pulse Rate 76 76 Respiratory Rate 25 H 25 H Blood Pressure 125/64 Pulse Oximetry 95 Oxygen Delivery Fraction of Inspired Oxygen 45 06/26/24 05:06 06/26/24 05:25 06/26/24 06:00 Temperature 101 F H Pulse Rate 74 69 Respiratory Rate 22 H Blood Pressure Pulse Oximetry 97 Oxygen Delivery Mechanical Ventilation Fraction of Inspired Oxygen 45 06/26/24 06:00 06/26/24 06:00 06/26/24 06:00 Temperature 101 F H 101 F H Pulse Rate 55 L 70 Respiratory Rate 22 H Blood Pressure 116/55 L Pulse Oximetry 95 Oxygen Delivery Fraction of Inspired Oxygen 06/26/24 04:00 06/26/24 08:38 06/26/24 08:38 Temperature Pulse Rate 71 71 Respiratory Rate 26 H Blood Pressure Pulse Oximetry 95 97 Oxygen Delivery Mechanical Ventilation Mechanical Ventilation Fraction of Inspired Oxygen 45 45 06/26/24 09:56 06/26/24 08:50 06/26/24 08:00 Temperature 100.6 F H Pulse Rate 73 76 75 Respiratory Rate 26 H 29 H Blood Pressure 121/59 L Pulse Oximetry 97 Oxygen Delivery Fraction of Inspired Oxygen 06/26/24 08:00 06/26/24 10:00 06/26/24 08:00 Temperature Pulse Rate 75 73 Respiratory Rate 29 H 26 H Blood Pressure Pulse Oximetry Oxygen Delivery Mechanical Ventilation Fraction of Inspired Oxygen 45 06/26/24 08:00 06/26/24 08:00 06/26/24 10:00 Temperature Pulse Rate 72 73 Respiratory Rate Blood Pressure Pulse Oximetry Oxygen Delivery Fraction of Inspired Oxygen 45 06/26/24 10:00 06/26/24 11:08 Temperature 100.6 F H Pulse Rate 73 72 Respiratory Rate 26 H Blood Pressure 118/57 L Pulse Oximetry 96 97 Oxygen Delivery Mechanical Ventilation Fraction of Inspired Oxygen 45 Intake/Output Intake/Output: Intake & Output 06/24/24 06/24/24 06/25/24 06/26/24 00:59 23:59 23:59 23:59 Intake Total 1280.8 150 Output Total 2815 335 Balance -1534.2 -185 Meds/Results Medications: Active Medications Generic Name Dose Route Start Last Admin Trade Name Freq PRN Reason Stop Dose Admin Acetaminophen 650 mg 06/07/24 21:53 06/26/24 05:06 Acetaminophen Elixir 325 Mg/10.15 Ml Udc PO 650 mg Q6H PRN Administration Mild Pain (1-3) or Fever Albuterol/Ipratropium 3 ml 06/05/24 11:15 06/26/24 08:34 Ipratropium 0.5 Mg/Albuterol Sulfate 2.5 Mg Ampul.Neb 3 Ml INHALATION 3 ml Q6HRT JOHN Administration Amiodarone HCl 200 mg 06/02/24 21:00 06/26/24 09:56 Amiodarone Hcl 200 Mg Tablet PO 200 mg Q12HR JOHN Administration Dextrose 12.5 gm 06/05/24 11:46 Dextrose 50% 25 Gm/50 Ml Syringe IV PUSH PRN PRN Hypoglycemia Protocol Enoxaparin Sodium 30 mg 06/24/24 09:00 06/26/24 09:25 Enoxaparin 30 Mg/0.3 Ml Syringe SUB-Q 30 mg DAILY JOHN Administration Epoetin Shayan-epbx 10,000 units 06/18/24 09:00 06/25/24 10:22 Epoetin Shayan-Epbx 10,000 Units/Ml Vial IV PUSH 10,000 units MOWEFR@09 JOHN Administration Fidaxomicin 200 mg 06/24/24 01:35 BODY FORMER 06/26/24 09:56 Fidaxomicin 200 Mg Tablet PO 200 mg Q12HR JOHN Administration Glucagon 1 mg 06/05/24 11:46 Glucagon For Inj 1 Mg Vial IM PRN PRN Hypoglycemia Protocol Glucose 15 gm 06/05/24 11:46 Glucose Oral Gel 15 Gm Of Glucse In 37.5 Gm Tube PO PRN PRN Hypoglycemia Protocol Dextrose 1,000 mls @ 100 mls/hr 06/05/24 11:46 Dextrose 5% 1,000 Ml IVPB PRN PRN Hypoglycemia Protocol Albumin Human 50 mls @ 999 mls/hr 06/08/24 09:50 06/12/24 11:39 Albutein IVPB 07/08/24 09:49 Infused Q10M PRN Infusion HYPOTENSION Metronidazole 500 mg in 100 mls @ 100 mls/hr 06/24/24 07:55 06/26/24 06:20 Flagyl 500 Mg/Iso Soln 100 Ml IVPB Infused Q8HR JOHN Infusion Cefepime HCl 0.5 gm/ Dextrose 50 mls @ 100 mls/hr 06/24/24 09:00 06/26/24 09:55 IVPB Infused Q12H JOHN Infusion Linezolid 600 mg in 300 mls @ 300 mls/hr 06/25/24 21:00 06/26/24 09:56 Zyvox IVPB 300 mls/hr Q12HR JOHN Administration Insulin Aspart 3 - 6 units 06/05/24 12:00 06/26/24 12:04 Insulin Aspart (*Bkc) 100 Units/Ml SUB-Q Not Given Q6HR [facility] Protocol Midodrine 10 mg 06/17/24 22:00 06/26/24 05:06 Midodrine Hcl 10 Mg Tablet PO 10 mg Q8H JOHN Administration Multi-Ingred Cream/Lotion/Oil/Oint 1 applic 06/05/24 09:00 06/26/24 09:25 Mineral Oil/White Petrolatum Ointment EACH EYE 1 applic Q12HR JOHN Administration Ondansetron HCl 4 mg 06/11/24 07:47 06/23/24 21:44 Ondansetron Inj 4 Mg/2 Ml Vial IV PUSH 4 mg Q6H PRN Administration Nausea And Vomiting Pantoprazole Sodium 40 mg 06/06/24 09:00 06/26/24 09:25 Pantoprazole Sodium Iv 40 Mg Vial IV PUSH 40 mg Q12HR JOHN Administration Umeclidinium [place] 1 puff 06/03/24 08:00 06/14/24 12:38 Umeclidinium [place] 62.5 Mcg Ellipta INHALATION Not Given DAILYRT [facility] Radiology Results: ITS Impressions Renal Ultrasound 06/04/24 15:06 IMPRESSION: 1. Normal kidneys. No hydronephrosis. Abdomen Ultrasound 06/10/24 14:47 IMPRESSION: Fat infiltration. Enlarged left lobe of the liver. Slightly thickened wall of the gallbladder. Trace of ascites. Otherwise, normal Limited ultrasound of the abdomen. Abdomen X-Ray 06/16/24 13:54 IMPRESSION: 1. Nasogastric tube tip in the stomach. 2. Nonobstructive bowel gas pattern. 3. Diffuse lung disease, consistent with pulmonary edema versus pneumonia. 4. Cardiomegaly. Venous Doppler Study 06/17/24 11:49 IMPRESSION: 1. No deep venous thrombosis. Central Venous Line 06/22/24 14:36 IMPRESSION: 1. Right internal jugular central venous catheter tip at the caudal superior vena cava. Chest X-Ray 06/24/24 07:06 IMPRESSION: 1. Unchanged opacities in the left mid to lower lung zone which could represent atelectasis or pneumonia. 2. Cardiomegaly with interval improvement in prior pulmonary vascular congestion. Chest/Abdomen/Pelvis CT 06/24/24 21:07 IMPRESSION: Diffuse patchy bilateral pulmonary ground glass infiltrates suggesting pneumonitis, less likely small airways disease Prominent bilateral lower lobe atelectasis with air bronchograms Cardiomegaly Splenomegaly Labs Labs: Laboratory Results - last 24 hr 06/25/24 06/25/24 06/25/24 14:11 17:27 23:36 WBC RBC Hgb Hct MCV MCH MCHC RDW Plt Count MPV Sodium Potassium Chloride Carbon Dioxide Anion Gap BUN Creatinine Estim Creat Clear Calc Estimated GFR Glucose POC Capillary Glucose 127 H 112 H 109 H Calcium Magnesium Total Bilirubin AST ALT Alkaline Phosphatase Total Protein Albumin 06/26/24 06/26/24 04:39 11:59 WBC 13.6 H RBC 3.83 L Hgb 10.5 L Hct 33.2 L MCV 86.7 MCH 27.4 MCHC 31.6 L RDW 19.7 H Plt Count 287 MPV 10.5 H Sodium 135 L Potassium 3.7 Chloride 97 L Carbon Dioxide 23 Anion Gap 15 H BUN 76 H D Creatinine 5.50 H Estim Creat Clear Calc 16 Estimated GFR 8 L Glucose 108 POC Capillary Glucose 103 Calcium 9.8 Magnesium 2.4 H Total Bilirubin 1.7 H AST 443 H ALT 71 H Alkaline Phosphatase 288 H Total Protein 7.0 Albumin 3.3 L
[2024-06-26 18:06] LABS: Glucose Point of Care 91 mg/dl (65-105)
[2024-06-26] MEDS: MORPHINE SULFATE (*CRX) 4 MG/ML INJ IV PUSH (22:32)
[2024-06-27] VITALS (57 sets, daily range): BP systolic 104–138; BP diastolic 51–73; PULSE 60–89; RESP 14–39; TEMP 36.5–38.8; O2SAT 93–100
[2024-06-27 00:09] LABS: Glucose Point of Care 110 mg/dl (65-105)
[2024-06-27] MEDS: ACETAMINOPHEN ELIXIR 325 MG/10.15 ML UDC 650 MG PO ×4 (01:25→22:18)
[2024-06-27] MEDS: IPRATROPIUM 0.5 MG/ALBUTEROL SULFATE 2.5 MG AMPUL.NEB 3 ML INHALATION ×4 (01:54→20:29)
[2024-06-27 04:09] LABS: Hematocrit 31.5 % (37.0-47.0); Hemoglobin 9.9 g/dL (12.0-15.0); Mean Corpuscular HGB Conc 31.4 g/dl (32-36); Mean Corpuscular Volume 85.8 fl (80-100); Mean Platelet Volume 10.1 fl (7.4-10.4); Platelet Count Result 367 k/mm3 (150-375); Red Blood Count 3.67 M/mm3 (4.2-5.4); Red Cell Distribution Width 19.1 % (11.5-14.5); White Blood Count 14.7 K/mm3 (4.5-10.0)
[2024-06-27 04:30] LABS: Alanine Aminotransferase 26 U/L (6-35); Albumin Level 3.3 g/dL (3.5-5.1); Alkaline Phosphatase 275 U/L (38-126); Anion Gap 17 mmol/L (4-12); Aspartate Amino Transferase 228 U/L (14-36); Blood Urea Nitrogen 94 mg/dL (7-17); Calcium 10.1 mg/dL (8.4-10.2); Carbon Dioxide 20 mmol/L (22-30); Chloride 96 mmol/L (98-107); Estimated CRCL calculation 13 ml/min; Estimated Glomerular Filt Rate 7; Glucose 99 mg/dL (65-110); Magnesium 2.5 mg/dL (1.6-2.3); Potassium 3.2 mmol/L (3.4-5.0); Sodium 133 mmol/L (137-145)
[2024-06-27] MEDS: MIDODRINE HCL 10 MG TABLET PO ×3 (04:48→21:36)
[2024-06-27] MEDS: metroNIDAZOLE 500 MG/ISO 100ML 500 MG/100 ML BAG 100 MG IVPB (04:48)
[2024-06-27] MEDS: ONDANSETRON INJ 4 MG/2 ML VIAL IV PUSH (06:30)
--- NOTE | 2024-06-27 08:28 | P.PNINT_ITS ---
Progress Note: A&P Assessment and Plan (1) Acute respiratory failure: Code(s): J96.00 - Acute respiratory failure, unspecified whether with hypoxia or hypercapnia Status: Acute Assessment and Plan: Chest x-ray bilateral diffuse pulmonary infiltrates/pulmonary edema. Patient was placed on BiPAP. ABG showed hypercapnic and hypoxemic respiratory failure. Etiology pulmonary edema, pneumonia, ARDS -06/05: patient intubated for impending respiratory failure. Intubation was slightly challenging secondary to body habitus, small mouth, large tongue, redundant tissue in the hypopharynx and anterior vocal cords requiring cricoid pressure and use of glide scope. CT chest 06/17 IMPRESSION: 1. Diffuse lung disease, consistent with pulmonary edema versus pneumonia versus acute respiratory distress syndrome. 2. Cardiomegaly. 3. Small volume of ascites. -currently on CMV mode of ventilation, currently on PEEP down to 8, 45% FiO2, -chest x-ray reviewed and shows improvement although still has diffuse bilateral infiltrates although there has been improvement -continue bronchodilators -patient has significant volume overload and need additional fluid removed patient is being dialyzed again today. -patient has failed her PSV trials multiple times and is not close to showing any signs of weaning - 06/19: Discussed with patient's sister who is the POA and patient's son, they they requested and agreeable for tracheostomy and PEG tube placement 06/25: Patient underwent tracheostomy and G-tube placement 06/27: Will try PSV after dialysis today Off sedation now (2) Septic shock: Code(s): A41.9 - Sepsis, unspecified organism; R65.21 - Severe sepsis with septic shock Status: Acute Assessment and Plan: Septic shock could be related to UTI, pneumonia -patient was hypotensive in the intermediate Unit and was transferred to the ICU which she received fluids, albumin -continue norepinephrine as needed to maintain mean arterial pressure. Currently off -off vancomycin -completed cefepime for a total of 7 days -off stress dose steroids -continue midodrine -06/17: CT chest abdomen and pelvis for ongoing leukocytosis and vasopressor requirement. Will also obtain right lower extremity venous Dopplers since patient has a right lower extremity is erythematous, slightly swollen. 06/05/2024: Echocardiogram Summary 1. Left ventricular chamber dimension is normal. 2. Left ventricular systolic function is normal, estimated at 65-70%. 3. The left ventricular diastolic function is grade I diastolic dysfunction. 4. Right ventricular chamber dimension is moderately enlarged. 5. Right ventricular systolic function is normal. 6. Left atrial chamber dimension is moderately enlarged. 7. Right atrial chamber dimension is moderately enlarged. 8. There is mild to moderate tricuspid valve regurgitation. 11/ overnight patient had a increase in WBC count and high-grade fevers Increased FiO2 requirement and increased endotracheal suction Procalcitonin level 4.9 Lai catheter was changed, UA suggestive of UTI and urine culture is growing VRE Sputum culture is growing yeast Blood cultures are negative CT scan showed - Diffuse patchy bilateral pulmonary ground glass infiltrates suggesting pneumonitis, less likely small airways disease Prominent bilateral lower lobe atelectasis with air bronchograms suggestive of pneumonia Patient also had diarrhea and tested positive for C diff Continue vancomycin, cefepime and per tube Dificid Lipase was also elevated at 478. (3) JOVI (acute kidney injury): Code(s): N17.9 - Acute kidney failure, unspecified Status: Acute Assessment and Plan: Patient with acute kidney injury, with increase creatinine to 4.60 (creatinine on admission on 06/02/2024 was 2.10 and her creatinine on 04/26/2024 was 0.90) -etiology for acute kidney injury could be multifactorial, hypotension, shock, sepsis, UTI/pneumonia, hypoxia,? SLE flare, CHF, -CK levels are within normal limits -urine eosinophils were negative -urine electrolytes showed prerenal picture, patient seems to be volume overloaded -status post given IV fluids and albumin, will hold fluids for now -discussed with senior integration developer at [facility], feels that the patient is unstable to be transferred at this time for CRRT, recommended conventional dialysis. -discussed with dressing machine operator at [facility], agrees to conventional dialysis at this time -06/05: dialysis catheter was placed in the right IJ and exchange for the central line -06/05: Initiated dialysis, with 3000 mL of fluid removal -06/06: Dialysis with 3000 mL in fluid removal -06/07: Dialysis with 3700 mL in fluid removal -06/08: Dialysis with 2900 mL in fluid removal -06/09: Dialysis with 3000 mL in fluid removal -06/10: No dialysis -06/12: Patient was dialyzed and 3.1 P L fluid was removed -06/13 getting dialyzed again today. 4 L removed - 06/14: 3000 mL removed - 06/15: 4000 mL fluid was removed - 06/16: 4000 mL in fluid removal with dialysis - 06/18: 4000 ml in fluid removal - 06/20: 4000 mL in fluid removal - 06/22: Patient is getting dialyzed again today 4 L fluid removed Underwent tunneled dialysis catheter placement on 06/22/202406/25: Patient was dialyzed but only half of the session was completed due to patient needing to go to OR for surgery. 06/27:scheduled for dialysis again today (4) Pulmonary edema: Code(s): J81.1 - Chronic pulmonary edema Status: Acute Assessment and Plan: Pulmonary edema likely related to acute kidney injury, ARDS, -did not respond to Bumex -continue fluid removal with dialysis (5) Type 2 diabetes mellitus: Code(s): E11.9 - Type 2 diabetes mellitus without complications Status: Acute Assessment and Plan: SSI and accucheks HbA1C is 5.7 this admission (6) Afib: Code(s): I48.91 - Unspecified atrial fibrillation Status: Acute Assessment and Plan: continue amiodarone -Eliquis currently on hold for procedures - flecainide was stopped (7) SLE (systemic lupus erythematosus): Code(s): M32.9 - Systemic lupus erythematosus, unspecified Status: Acute Assessment and Plan: Off steroids (8) Liver cirrhosis secondary to HOFFMANN: Code(s): K75.81 - Nonalcoholic steatohepatitis (HOFFMANN); K74.60 - Unspecified cirrhosis of liver Status: Acute Assessment and Plan: Continues to have mild elevation in LFTs and bilirubin which is stable 06/10/2024: RUQ ultrasound: Fat infiltration. Enlarged left lobe of the liver. Slightly thickened wall of the gallbladder. Trace of ascites. Otherwise, normal Limited ultrasound of the abdomen. -06/10/2024: Hepatitis panel is negative -continue to monitor (9) GERD (gastroesophageal reflux disease): Code(s): K21.9 - Gastro-esophageal reflux disease without esophagitis Status: Acute Assessment and Plan: Continue Protonix (10) Morbid obesity with BMI of 50.0-59.9, adult: Code(s): E66.01 - Morbid (severe) obesity due to excess calories; Z68.43 - Body mass index [BMI] 50.0-59.9, adult Status: Acute Assessment and Plan: Once extubated she will need lifestyle changes (11) Pancreatitis: Code(s): K85.90 - Acute pancreatitis without necrosis or infection, unspecified Status: Acute Assessment and Plan: Lipase elevated CT abdomen pelvis unremarkable Resume tube feeds (12) C. difficile diarrhea: Code(s): A04.72 - Enterocolitis due to Clostridium difficile, not specified as recurrent Status: Acute Assessment and Plan: Continue Dificid. Will DC IV Flagyl CT abdomen pelvis reviewed and shows no colon Dilation Diarrhea seems to have improved but patient is also not on tube feeds Plan DVT prophylaxis: Eliquis on hold for procedures. Will resume Eliquis Stress ulcer prophylaxis: Protonix Nutrition: Tube feeds resume Code Status: Full code Critical Care Time Spent: 30 minutes Due to a high probability of clinically significant, life threatening deterioration, the patient required my highest level of preparedness to intervene emergently and I personally spent this critical care time directly and personally managing the patient. This critical care time included obtaining a history; examining the patient; pulse oximetry; ordering and review of studies; arranging urgent treatment with development of a management plan; evaluation of patient's response to treatment; frequent reassessment; and discussions with other providers. It was exclusive of separately billable procedures and treating other patients and teaching time. Please see Assessment and Plan section and the rest of the note for further information on patient assessment and treatment This dictation may have been done utilizing a voice recognition system. Attempts have been made to correct errors. However, there may be uncorrected grammatical, spelling, and recognitions errors present Subjective Date/time seen: 06/27/24 Overnight events reviewed. Low-grade fever. 45% of Continues to be on mechanical ventilation 45% FiO2 Off sedatives Other Vitals acceptable Tolerating tube feeds but had 1 episode of vomiting Positive bowel movements Interval history: Reason for consult: Acute respiratory failure, septic shock, acute kidney injury, pulmonary edema 06/05: Intubated and hemodialysis initiated 06/22: Tunneled dialysis catheter placed 06/25: Tracheostomy and G-tube placement Review of Systems Review of Systems: ROS unobtainable: Yes unobtainable due to endotracheal tube, unobtainable due to medical condition and unobtainable due to mental status Exam Narrative: General: Morbidly obese female currently intubated and in no acute distress HEENT:? Pupils equal and reactive bilaterally, sclera is clear, trach in place Neck:, short and thick neck, Respiratory:? Decreased and coarse breath sounds bilaterally, no wheezing, Cardiac:? S1-S2 is normal, regular rate and rhythm Abdomen:? Morbid obesity, soft, hypoactive bowel sounds G-tube in place Extremities:? Bilateral lower extremity pitting edema improving, wrinkling of skin on the feet are noted, palpable pedal pulses. Right calf is warm, erythematous, nontender Neuro:? Patient is intubated, opens her eyes, follows simple commands in all extremities and nods to questions Skin:? Erythema in the intertriginous region and under her pannus, skin is dry and warm Psych:? Unable to assess at this time Objective Data Vital Signs Vital Signs: Vital Signs - 24 hr 06/26/24 08:38 06/26/24 08:38 06/26/24 09:56 Temperature Pulse Rate 71 71 73 Respiratory Rate 26 H Blood Pressure Pulse Oximetry 97 Oxygen Delivery Mechanical Ventilation Fraction of Inspired Oxygen 45 06/26/24 08:50 06/26/24 10:00 06/26/24 10:00 Temperature Pulse Rate 76 73 73 Respiratory Rate 26 H 26 H Blood Pressure Pulse Oximetry Oxygen Delivery Fraction of Inspired Oxygen 06/26/24 10:00 06/26/24 11:08 06/26/24 15:12 Temperature 38.1 C H 38.3 C H Pulse Rate 73 72 Respiratory Rate 26 H Blood Pressure 118/57 L Pulse Oximetry 96 97 Oxygen Delivery Mechanical Ventilation Fraction of Inspired Oxygen 45 06/26/24 14:24 06/26/24 14:24 06/26/24 14:36 Temperature Pulse Rate 71 71 74 Respiratory Rate 28 H 24 H Blood Pressure Pulse Oximetry 97 Oxygen Delivery Mechanical Ventilation Fraction of Inspired Oxygen 45 06/26/24 12:00 06/26/24 12:00 06/26/24 12:00 Temperature Pulse Rate 71 Respiratory Rate Blood Pressure Pulse Oximetry Oxygen Delivery Mechanical Ventilation Fraction of Inspired Oxygen 45 45 06/26/24 12:00 06/26/24 14:00 06/26/24 14:00 Temperature 38.1 C H 38.3 C H Pulse Rate 71 72 72 Respiratory Rate 30 H 25 H Blood Pressure 117/57 L 122/58 L Pulse Oximetry 96 97 Oxygen Delivery Fraction of Inspired Oxygen 06/26/24 16:00 06/26/24 16:00 06/26/24 16:00 Temperature 38.2 C H Pulse Rate 70 Respiratory Rate 27 H Blood Pressure 109/57 L Pulse Oximetry 97 Oxygen Delivery Mechanical Ventilation Fraction of Inspired Oxygen 45 45 06/26/24 17:06 06/26/24 16:00 06/26/24 18:00 Temperature Pulse Rate 73 71 71 Respiratory Rate Blood Pressure Pulse Oximetry 97 Oxygen Delivery Mechanical Ventilation Fraction of Inspired Oxygen 45 06/26/24 18:00 06/26/24 20:10 06/26/24 20:15 Temperature 38.2 C H Pulse Rate 71 74 74 Respiratory Rate 30 H 24 H Blood Pressure 116/60 Pulse Oximetry 97 96 Oxygen Delivery Mechanical Ventilation Fraction of Inspired Oxygen 45 06/26/24 20:00 06/26/24 20:25 06/26/24 20:49 Temperature Pulse Rate 76 72 Respiratory Rate 24 H Blood Pressure Pulse Oximetry Oxygen Delivery Fraction of Inspired Oxygen 45 06/26/24 20:50 06/26/24 20:00 06/26/24 20:00 Temperature 38.3 C H Pulse Rate 75 Respiratory Rate Blood Pressure Pulse Oximetry Oxygen Delivery Mechanical Ventilation Fraction of Inspired Oxygen 45 06/26/24 20:00 06/26/24 22:00 06/26/24 22:00 Temperature 38.3 C H 38.1 C H Pulse Rate 75 78 78 Respiratory Rate 30 H 34 H Blood Pressure 118/59 L 122/54 L Pulse Oximetry 96 96 Oxygen Delivery Fraction of Inspired Oxygen 06/26/24 21:45 06/26/24 23:00 06/27/24 00:00 Temperature 38.0 C H Pulse Rate 74 Respiratory Rate Blood Pressure Pulse Oximetry 95 Oxygen Delivery Mechanical Ventilation Fraction of Inspired Oxygen 45 45 06/27/24 00:00 06/27/24 00:00 06/27/24 00:00 Temperature 37.8 C H Pulse Rate 73 73 Respiratory Rate 27 H Blood Pressure 104/56 L Pulse Oximetry 96 Oxygen Delivery Mechanical Ventilation Fraction of Inspired Oxygen 45 06/27/24 01:57 06/27/24 01:59 06/27/24 02:00 Temperature Pulse Rate 72 72 71 Respiratory Rate 32 H Blood Pressure Pulse Oximetry 96 Oxygen Delivery Mechanical Ventilation Fraction of Inspired Oxygen 45 06/27/24 04:00 06/27/24 02:00 06/27/24 04:00 Temperature 37.7 C H 37.6 C H Pulse Rate 71 71 71 Respiratory Rate 34 H 26 H Blood Pressure 114/51 L 114/59 L Pulse Oximetry 96 96 Oxygen Delivery Fraction of Inspired Oxygen 06/27/24 04:00 06/27/24 05:20 06/27/24 02:10 Temperature Pulse Rate 72 73 Respiratory Rate 28 H Blood Pressure Pulse Oximetry 96 Oxygen Delivery Mechanical Ventilation Fraction of Inspired Oxygen 45 45 06/27/24 04:00 06/27/24 06:36 06/27/24 06:36 Temperature 37.8 C H Pulse Rate 69 69 Respiratory Rate 14 Blood Pressure 130/65 Pulse Oximetry 95 Oxygen Delivery Mechanical Ventilation Fraction of Inspired Oxygen 45 06/27/24 07:40 06/27/24 07:40 06/27/24 07:49 Temperature Pulse Rate 75 76 75 Respiratory Rate 17 22 H Blood Pressure Pulse Oximetry 94 Oxygen Delivery Mechanical Ventilation Fraction of Inspired Oxygen 45 Intake/Output Intake/Output: Intake & Output 06/24/24 06/25/24 06/26/24 06/27/24 23:59 23:59 23:59 23:59 Intake Total 1280.8 1160 366 Output Total 2815 335 125 Balance -1534.2 825 241 Meds/Results Medications: Active Medications Generic Name Dose Route Start Last Admin Trade Name Freq PRN Reason Stop Dose Admin Acetaminophen 650 mg 06/07/24 21:53 06/27/24 01:25 Acetaminophen Elixir 325 Mg/10.15 Ml Udc PO 650 mg Q6H PRN Administration Mild Pain (1-3) or Fever Albuterol/Ipratropium 3 ml 06/05/24 11:15 06/27/24 07:37 Ipratropium 0.5 Mg/Albuterol Sulfate 2.5 Mg Ampul.Neb 3 Ml INHALATION 3 ml Q6HRT JOHN Administration Amiodarone HCl 200 mg 06/02/24 21:00 06/26/24 20:49 Amiodarone Hcl 200 Mg Tablet PO 200 mg Q12HR JOHN Administration Dextrose 12.5 gm 06/05/24 11:46 Dextrose 50% 25 Gm/50 Ml Syringe IV PUSH PRN PRN Hypoglycemia Protocol Enoxaparin Sodium 30 mg 06/24/24 09:00 06/26/24 09:25 Enoxaparin 30 Mg/0.3 Ml Syringe SUB-Q 30 mg DAILY JOHN Administration Epoetin Shayan-epbx 10,000 units 06/18/24 09:00 06/25/24 10:22 Epoetin Shayan-Epbx 10,000 Units/Ml Vial IV PUSH 10,000 units MOWEFR@09 JOHN Administration Fidaxomicin 200 mg 06/24/24 01:35 PHOTOGRAPH TINTER 06/26/24 20:49 Fidaxomicin 200 Mg Tablet PO 200 mg Q12HR JOHN Administration Glucagon 1 mg 06/05/24 11:46 Glucagon For Inj 1 Mg Vial IM PRN PRN Hypoglycemia Protocol Glucose 15 gm 06/05/24 11:46 Glucose Oral Gel 15 Gm Of Glucse In 37.5 Gm Tube PO PRN PRN Hypoglycemia Protocol Dextrose 1,000 mls @ 100 mls/hr 06/05/24 11:46 Dextrose 5% 1,000 Ml IVPB PRN PRN Hypoglycemia Protocol Albumin Human 50 mls @ 999 mls/hr 06/08/24 09:50 06/12/24 11:39 Albutein IVPB 07/08/24 09:49 Infused Q10M PRN Infusion HYPOTENSION Cefepime HCl 0.5 gm/ Dextrose 50 mls @ 100 mls/hr 06/24/24 09:00 06/26/24 22:00 IVPB Infused Q12H JOHN Infusion Linezolid 600 mg in 300 mls @ 300 mls/hr 06/25/24 21:00 06/26/24 22:00 Zyvox IVPB Infused Q12HR JOHN Infusion Insulin Aspart 3 - 6 units 06/05/24 12:00 06/27/24 04:48 Insulin Aspart (*Bkc) 100 Units/Ml SUB-Q Not Given Q6HR [facility] Protocol Midodrine 10 mg 06/17/24 22:00 06/27/24 04:48 Midodrine Hcl 10 Mg Tablet PO 10 mg Q8H JOHN Administration Multi-Ingred Cream/Lotion/Oil/Oint 1 applic 06/05/24 09:00 06/26/24 20:53 Mineral Oil/White Petrolatum Ointment EACH EYE 1 applic Q12HR JOHN Administration Ondansetron HCl 4 mg 06/11/24 07:47 06/27/24 06:30 Ondansetron Inj 4 Mg/2 Ml Vial IV PUSH 4 mg Q6H PRN Administration Nausea And Vomiting Pantoprazole Sodium 40 mg 06/06/24 09:00 06/26/24 20:53 Pantoprazole Sodium Iv 40 Mg Vial IV PUSH 40 mg Q12HR JOHN Administration Umeclidinium [place] 1 puff 06/03/24 08:00 06/14/24 12:38 Umeclidinium [place] 62.5 Mcg Ellipta INHALATION Not Given DAILYRT [facility] Radiology Results: ITS Impressions Renal Ultrasound 06/04/24 15:06 IMPRESSION: 1. Normal kidneys. No hydronephrosis. Abdomen Ultrasound 06/10/24 14:47 IMPRESSION: Fat infiltration. Enlarged left lobe of the liver. Slightly thickened wall of the gallbladder. Trace of ascites. Otherwise, normal Limited ultrasound of the abdomen. Abdomen X-Ray 06/16/24 13:54 IMPRESSION: 1. Nasogastric tube tip in the stomach. 2. Nonobstructive bowel gas pattern. 3. Diffuse lung disease, consistent with pulmonary edema versus pneumonia. 4. Cardiomegaly. Venous Doppler Study 06/17/24 11:49 IMPRESSION: 1. No deep venous thrombosis. Central Venous Line 06/22/24 14:36 IMPRESSION: 1. Right internal jugular central venous catheter tip at the caudal superior vena cava. Chest X-Ray 06/24/24 07:06 IMPRESSION: 1. Unchanged opacities in the left mid to lower lung zone which could represent atelectasis or pneumonia. 2. Cardiomegaly with interval improvement in prior pulmonary vascular congestion. Chest/Abdomen/Pelvis CT 06/24/24 21:07 IMPRESSION: Diffuse patchy bilateral pulmonary ground glass infiltrates suggesting pneumonitis, less likely small airways disease Prominent bilateral lower lobe atelectasis with air bronchograms Cardiomegaly Splenomegaly Labs Labs: Laboratory Results - last 24 hr 06/26/24 06/26/24 06/27/24 11:59 18:04 00:03 WBC RBC Hgb Hct MCV MCH MCHC RDW Plt Count MPV Sodium Potassium Chloride Carbon Dioxide Anion Gap BUN Creatinine Estim Creat Clear Calc Estimated GFR Glucose POC Capillary Glucose 103 91 110 H Calcium Magnesium Total Bilirubin AST ALT Alkaline Phosphatase Total Protein Albumin 06/27/24 04:04 WBC 14.7 H RBC 3.67 L Hgb 9.9 L Hct 31.5 L MCV 85.8 MCH 27.0 MCHC 31.4 L RDW 19.1 H Plt Count 367 MPV 10.1 Sodium 133 L Potassium 3.2 L Chloride 96 L Carbon Dioxide 20 L Anion Gap 17 H BUN 94 H D Creatinine 6.50 H Estim Creat Clear Calc 13 Estimated GFR 7 L Glucose 99 POC Capillary Glucose Calcium 10.1 Magnesium 2.5 H Total Bilirubin 2.0 H AST 228 H ALT 26 Alkaline Phosphatase 275 H Total Protein 7.0 Albumin 3.3 L Quality VTE Prophylaxis VTE prophylaxis: pharmacologic ordered
[2024-06-27] MEDS: AMIODARONE HCL 200 MG TABLET PO ×2 (08:55→19:33)
[2024-06-27] MEDS: METOCLOPRAMIDE HCL 10 MG/10 ML SOLN UDC FEED TUBE ×3 (08:55→19:33)
[2024-06-27] MEDS: MINERAL OIL/WHITE PETROLATUM OINTMENT 1 APPLIC EACH EYE (08:55)
[2024-06-27] MEDS: FIDAXOMICIN 200 MG TABLET PO ×2 (08:55→19:33)
[2024-06-27] MEDS: APIXABAN 5 MG TABLET FEED TUBE ×2 (08:56→19:33)
[2024-06-27] MEDS: SODIUM CHLORIDE 0.9% IV 1,000 ML 999 ML IV CONT (09:57)
[2024-06-27] MEDS: HEPARIN SODIUM 1,000 UNITS/ML VIAL 5000 UNITS (09:57)
[2024-06-27] MEDS: EPOETIN ALFA-EPBX 10,000 UNITS/ML VIAL 10000 UNITS IV PUSH (10:25)
--- NOTE | 2024-06-27 11:10 | PCFNICU ---
ICU Rounding Note: Pt current nutrition is Nepro at 50 ml/hr Last recorded weight is 147 kg, down from 80.3 kg on admit. Dialysis continues. Bowel Motility: FMS Labs Reviewed: Mg 2.5, BUN 94, Cr 6.5, NA 133, K 3.2 Meds Noted:Reglan, Zofran, Protonix,Eliquis Skin: WNL Additional Notes: Patient had PEG/Trach placed 06/25. Cdiff noted, Banatrol Plus started TID for stool bulking. Tube feedings of Nepro at 30 ml/hr at this time due to vomiting this morning. Reglan added and plans to advance feeding to 50 ml/hr as tolerated. Flush 30 ml q 4hours. Dialysis today. Following daily in ICU rounds. Will monitor weight, labs, skin, meds, diet orders every Tuesday and Tuesday.
--- NOTE | 2024-06-27 12:09 | P.PNNP_ITS ---
Progress Note: A&P Assessment and Plan (1) JOVI (acute kidney injury): Code(s): N17.9 - Acute kidney failure, unspecified Status: Acute Assessment and Plan: * no real significant improvement to date * normal creatinine ~ 1 month ago * admitted with a creatinine of 2.1mg/dl with ongoing worsening noted * due to multifactorial ATN: * hemodynamic instability/shock * sepsis * infection (UTI +/- pneumonia) -- although culture negative to date * hypoxia * other? * evaluation to date noted: * renal ultrasound negative for obstruction * urine eosinophils negative * urine electrolytes pre-renal (in spite of evidence of volume overload) * CPK low * moderate proteinuria (~ 600mg) * UA with blood and protein (and negative urine culture) * has been dialysis dependent since 06/05 * s/p daily dialysis alternating with DUF (except Sundays) to facilitate euvolemia * HD today and continue Tue/Tue/Tuesday schedule * s/p tunneled HD catheter placement on 06/22/24 * follow repeat labs and UOP to assess for potential renal recovery (2) Acute respiratory failure: Code(s): J96.00 - Acute respiratory failure, unspecified whether with hypoxia or hypercapnia Status: Acute Assessment and Plan: * intubated on 06/05 for impending respiratory failure * failed BiPAP therapy * ABG with noted hypercapnea and hypoxia * secondary to pulmonary edema, diffuse bilateral infiltrates and ARDS * on bronchodilators * weaned off steroids * continue dialysis/dry ultrafiltration for fluid removal * s/p tracheostomy and G-tube placement on 06/25 (3) Septic shock: Code(s): A41.9 - Sepsis, unspecified organism; R65.21 - Severe sepsis with septic shock Status: Acute Assessment and Plan: * initially thought to be secondary to UTI and pneumonia * was on levophed therapy to maintain MAP * weaned off and being used PRN * Echo results noted * continue midodrine * follow repeat culture data * resumed on antibiotics due to fevers * follow trend of hemodynamics (4) Pulmonary edema: Code(s): J81.1 - Chronic pulmonary edema Status: Acute Assessment and Plan: * contributing to #2 * secondary to JOVI/ARF but ARDS an issues as well * failed diuretic therapy * HD/DUF for fluid removal * almost 22L negative since admission (5) C. difficile diarrhea: Code(s): A04.72 - Enterocolitis due to Clostridium difficile, not specified as recurrent Status: Acute Assessment and Plan: * currently on Dificid and IV Flagyl * CT abdomen pelvis results noted (6) Afib: Code(s): I48.91 - Unspecified atrial fibrillation Status: Acute Assessment and Plan: * rate control strategy * on amiodarone and Eliquis * anticoagulation on hold for procedures (7) Anemia: Code(s): D64.9 - Anemia, unspecified Status: Acute Assessment and Plan: * related to JOVI and acute/critical illness * KIRILL with HD * follow trend of H/H (8) Liver cirrhosis secondary to HOFFMANN: Code(s): K75.81 - Nonalcoholic steatohepatitis (HOFFMANN); K74.60 - Unspecified cirrhosis of liver Status: Acute Assessment and Plan: * known history * normal liver by recent imaging * noted elevations in AST/ALT that have been up and down * fluctuating LFTS thought to be more related to congestion/volume overload * continue to follow (9) Type 2 diabetes mellitus: Code(s): E11.9 - Type 2 diabetes mellitus without complications Status: Acute Assessment and Plan: * follow accu-cheks * glycemic control per physician assistant certified/hospitalist Will continue to follow. Subjective Date/time seen: 06/27/24 12:09 Interval history: Follow-up for acute kidney injury/acute renal failure with dialysis dependence. Tolerating dialysis treatment at the time of my visit -- just about to complete treatment (seen on HD at 12:00PM); continues to have on/off fevers in the last 24 hours with Tmax of 101.0?; remains on mechanical ventilator support via tracheostomy; remains hemodynamically stable; no acute issues/events overnight or earlier this morning. Exam 2 Narrative: General: large female on mechanical ventilation via tracheostomy Heart: normal S1 and S2; no rub Lungs: coarse breath sounds; decreased at bases Abdomen: obese but soft, nontender, nondistended, positive bowel sounds Extremities: no cyanosis or clubbing; trace - 1+ edema Skin: warm and intact Objective Data Vital Signs Vital Signs: Vital Signs Temp Pulse Resp BP Pulse Ox O2 Del Method FiO2 06/27/24 12:00 83 107/63 06/27/24 11:45 79 118/61 06/27/24 11:30 81 138/69 06/27/24 11:41 80 93 Mechanical Ventilation 45 06/27/24 10:00 100.1 F H 81 30 H 124/64 95 06/27/24 10:00 81 06/27/24 09:30 84 119/61 06/27/24 09:15 81 118/65 06/27/24 09:00 78 131/70 06/27/24 08:45 82 125/71 06/27/24 08:30 79 114/51 L 06/27/24 08:00 75 06/27/24 08:00 99.6 F 75 30 H 137/73 95 06/27/24 08:00 45 06/27/24 08:00 95 Mechanical Ventilation 45 06/27/24 11:15 81 123/69 06/27/24 11:00 79 106/67 06/27/24 10:45 79 113/71 06/27/24 10:30 79 121/66 06/27/24 10:15 79 118/61 06/27/24 10:00 80 124/64 06/27/24 09:45 79 128/66 06/27/24 08:23 72 128/73 06/27/24 08:10 99.7 F H 75 30 H 137/73 95 06/27/24 08:10 45 06/27/24 08:55 79 06/27/24 07:49 75 22 H 06/27/24 07:40 76 94 Mechanical Ventilation 45 06/27/24 07:40 75 17 06/27/24 06:36 100.0 F H 69 14 130/65 95 06/27/24 06:36 69 06/27/24 04:00 Mechanical Ventilation 45 06/27/24 02:10 73 28 H 06/27/24 05:20 72 96 Mechanical Ventilation 45 06/27/24 04:00 45 06/27/24 04:00 99.7 F H 71 26 H 114/59 L 96 06/27/24 02:00 100 F H 71 34 H 114/51 L 96 06/27/24 04:00 71 06/27/24 02:00 71 06/27/24 01:59 72 32 H 06/27/24 01:57 72 96 Mechanical Ventilation 45 06/27/24 00:00 Mechanical Ventilation 45 06/27/24 00:00 73 06/27/24 00:00 100.1 F H 73 27 H 104/56 L 96 06/27/24 00:00 45 06/26/24 23:00 74 95 Mechanical Ventilation 45 06/26/24 21:45 100.4 F H 06/26/24 22:00 100.6 F H 78 34 H 122/54 L 96 06/26/24 22:00 78 06/26/24 20:00 101 F H 75 30 H 118/59 L 96 06/26/24 20:00 75 06/26/24 20:00 Mechanical Ventilation 45 06/26/24 20:50 101 F H 06/26/24 20:49 72 06/26/24 20:25 76 24 H 06/26/24 20:00 45 06/26/24 20:15 74 24 H 06/26/24 20:10 74 96 Mechanical Ventilation 45 06/26/24 18:00 100.8 F H 71 30 H 116/60 97 06/26/24 18:00 71 06/26/24 16:00 71 06/26/24 17:06 73 97 Mechanical Ventilation 45 06/26/24 16:00 100.7 F H 70 27 H 109/57 L 97 06/26/24 16:00 45 06/26/24 16:00 Mechanical Ventilation 45 06/26/24 14:00 100.9 F H 72 25 H 122/58 L 97 06/26/24 14:00 72 06/26/24 14:36 74 24 H 06/26/24 14:24 71 28 H 06/26/24 14:24 71 97 Mechanical Ventilation 45 06/26/24 15:12 101 F H Intake/Output Intake/Output: Intake & Output 06/24/24 06/25/24 06/26/24 06/27/24 23:59 23:59 23:59 23:59 Intake Total 1280.8 1160 366 Output Total 2815 335 125 Balance -1534.2 825 241 Meds/Results Medications: Active Medications Generic Name Dose Route Start Last Admin Trade Name Freq PRN Reason Stop Dose Admin Acetaminophen 650 mg 06/07/24 21:53 06/27/24 01:25 Acetaminophen Elixir 325 Mg/10.15 Ml Udc PO 650 mg Q6H PRN Administration Mild Pain (1-3) or Fever Albuterol/Ipratropium 3 ml 10/15/24 11:15 06/27/24 07:37 Ipratropium 0.5 Mg/Albuterol Sulfate 2.5 Mg Ampul.Neb 3 Ml INHALATION 3 ml Q6HRT JOHN Administration Amiodarone HCl 200 mg 06/02/24 21:00 06/27/24 08:55 Amiodarone Hcl 200 Mg Tablet PO 200 mg Q12HR JOHN Administration Apixaban 5 mg 06/27/24 09:00 06/27/24 08:56 Apixaban 5 Mg Tablet FEED TUBE 5 mg Q12HR JOHN Administration Dextrose 12.5 gm 06/05/24 11:46 Dextrose 50% 25 Gm/50 Ml Syringe IV PUSH PRN PRN Hypoglycemia Protocol Epoetin Shayan-epbx 10,000 units 06/18/24 09:00 06/27/24 10:25 Epoetin Shayan-Epbx 10,000 Units/Ml Vial IV PUSH 10,000 units MOWEFR@09 [facility] Administration Fidaxomicin 200 mg 06/24/24 01:35 PUBLIC INFORMATION RELATIONS MANAGER 06/27/24 08:55 Fidaxomicin 200 Mg Tablet PO 200 mg Q12HR [facility] Administration Glucagon 1 mg 06/05/24 11:46 Glucagon For Inj 1 Mg Vial IM PRN PRN Hypoglycemia Protocol Glucose 15 gm 06/05/24 11:46 Glucose Oral Gel 15 Gm Of Glucse In 37.5 Gm Tube PO PRN PRN Hypoglycemia Protocol Dextrose 1,000 mls @ 100 mls/hr 06/05/24 11:46 Dextrose 5% 1,000 Ml IVPB PRN PRN Hypoglycemia Protocol Albumin Human 50 mls @ 999 mls/hr 06/08/24 09:50 06/12/24 11:39 Albutein IVPB 07/08/24 09:49 Infused Q10M PRN Infusion HYPOTENSION Cefepime HCl 1 gm in 50 mls @ 100 mls/hr 06/27/24 18:00 Maxipime 1 Gm/Ns 50 Ml IVPB DAILY@1800 [facility] Insulin Aspart 3 - 6 units 06/05/24 12:00 06/27/24 04:48 Insulin Aspart (*Bkc) 100 Units/Ml SUB-Q Not Given Q6HR [facility] Protocol Linezolid 600 mg 06/27/24 21:00 Linezolid 600 Mg Tablet FEED TUBE 07/01/24 09:01 Q12HR [facility] Metoclopramide HCl 10 mg 06/27/24 08:30 06/27/24 08:55 Metoclopramide Hcl 10 Mg/10 Ml Soln Udc FEED TUBE 10 mg Q6H [facility] Administration Midodrine 10 mg 06/17/24 22:00 06/27/24 04:48 Midodrine Hcl 10 Mg Tablet PO 10 mg Q8H JOHN Administration Morphine Sulfate 2 mg 06/27/24 12:55 Morphine Sulfate (*Crx) 2 Mg/Ml Inj IV PUSH Q3H PRN Pain Rated 7-10 Multi-Ingred Cream/Lotion/Oil/Oint 1 applic 06/05/24 09:00 06/27/24 08:55 Mineral Oil/White Petrolatum Ointment EACH EYE 1 applic Q12HR [facility] Administration Ondansetron HCl 4 mg 06/11/24 07:47 06/27/24 06:30 Ondansetron Inj 4 Mg/2 Ml Vial IV PUSH 4 mg Q6H PRN Administration Nausea And Vomiting Pantoprazole Sodium 40 mg 06/06/24 09:00 06/26/24 20:53 Pantoprazole Sodium Iv 40 Mg Vial IV PUSH 40 mg Q12HR [facility] Administration Umeclidinium [place] 1 puff 06/03/24 08:00 06/14/24 12:38 Umeclidinium [place] 62.5 Mcg Ellipta INHALATION Not Given DAILYRT [facility] Radiology Results: ITS Impressions Renal Ultrasound 06/04/24 15:06 IMPRESSION: 1. Normal kidneys. No hydronephrosis. Abdomen Ultrasound 06/10/24 14:47 IMPRESSION: Fat infiltration. Enlarged left lobe of the liver. Slightly thickened wall of the gallbladder. Trace of ascites. Otherwise, normal Limited ultrasound of the abdomen. Abdomen X-Ray 06/16/24 13:54 IMPRESSION: 1. Nasogastric tube tip in the stomach. 2. Nonobstructive bowel gas pattern. 3. Diffuse lung disease, consistent with pulmonary edema versus pneumonia. 4. Cardiomegaly. Venous Doppler Study 06/17/24 11:49 IMPRESSION: 1. No deep venous thrombosis. Central Venous Line 06/22/24 14:36 IMPRESSION: 1. Right internal jugular central venous catheter tip at the caudal superior vena cava. Chest X-Ray 06/24/24 07:06 IMPRESSION: 1. Unchanged opacities in the left mid to lower lung zone which could represent atelectasis or pneumonia. 2. Cardiomegaly with interval improvement in prior pulmonary vascular congestion. Chest/Abdomen/Pelvis CT 06/24/24 21:07 IMPRESSION: Diffuse patchy bilateral pulmonary ground glass infiltrates suggesting pneumonitis, less likely small airways disease Prominent bilateral lower lobe atelectasis with air bronchograms Cardiomegaly Splenomegaly Labs Labs: Laboratory Tests 06/27/24 04:04 06/27/24 04:04 Calcium 10.1 Magnesium 2.5 H Total Bilirubin 2.0 H AST 228 H ALT 26 Alkaline Phosphatase 275 H Total Protein 7.0 Albumin 3.3 L Microbiology 06/23/24 00:18 Sputum Sputum Culture - Final Yeast Present
[2024-06-27 12:38] LABS: Glucose Point of Care 130 mg/dl (65-105)
[2024-06-27] MEDS: MORPHINE SULFATE (*CRX) 2 MG/ML INJ IV PUSH ×5 (13:26→23:29)
[2024-06-27] MEDS: PANTOPRAZOLE SODIUM IV 40 MG VIAL IV PUSH ×2 (13:26→19:34)
[2024-06-27] MEDS: LINEZOLID 600 MG TABLET FEED TUBE ×2 (13:26→19:33)
--- NOTE | 2024-06-27 15:32 | P.PNGS_ITS ---
Progress Note: A&P Assessment and Plan (1) Acute respiratory failure: Code(s): J96.00 - Acute respiratory failure, unspecified whether with hypoxia or hypercapnia Status: Acute Assessment and Plan: * POD2 following open gastrostomy tube placement. * She vomited once this morning, which has been an intermittent issue over the past 2 weeks. Tube feeding restarted and Reglan was ordered. Continue to monitor. Instructed nursing to check residuals. * Incision looks good but has a fair amount of drainage that appears consistent with ascites, change dressing as needed. (2) JOVI (acute kidney injury): Code(s): N17.9 - Acute kidney failure, unspecified Status: Acute Assessment and Plan: * Still requiring dialysis (3) Septic shock: Code(s): A41.9 - Sepsis, unspecified organism; R65.21 - Severe sepsis with septic shock Status: Acute (4) Pulmonary edema: Code(s): J81.1 - Chronic pulmonary edema Status: Acute (5) Afib: Code(s): I48.91 - Unspecified atrial fibrillation Status: Acute (6) Anticoagulated by anticoagulation treatment: Code(s): Z79.01 - superintendent terminal (current) use of anticoagulants Status: Acute (7) SLE (systemic lupus erythematosus): Code(s): M32.9 - Systemic lupus erythematosus, unspecified Status: Acute (8) Liver cirrhosis secondary to HOFFMANN: Code(s): K75.81 - Nonalcoholic steatohepatitis (HOFFMANN); K74.60 - Unspecified cirrhosis of liver Status: Acute (9) Morbid obesity with BMI of 50.0-59.9, adult: Code(s): E66.01 - Morbid (severe) obesity due to excess calories; Z68.43 - Body mass index [BMI] 50.0-59.9, adult Status: Acute Plan I have discussed the patient's case and plan of care with Dr. Albert. Subjective Subjective Date/Time Seen: 06/27/24 15:32 Interval history: 06/25/24 - Open gastrostomy tube placement, tracheostomy 06/22/24 - Tunneled dialysis catheter, removal of prior temporary hemodialysis catheter Patient seen in the ICU. She is on the ventilator and sedated. Per nursing, they had advanced her tube feeding diet as tolerated and was at 30 mL/hr this morning when she vomited. They had not been checking residuals from the dulce rostomy tube. The tube feeding was held for about 3 hours and then restarted. Broadcasting Equipment Mechanic started her on Reglan. Review of Systems Review of Systems: All systems reviewed & are unremarkable except as noted in HPI and below Exam Const: General: no acute distress Orientation/consciousness: patient obtunded (on mechanical ventilator) GI: Inspection: non-distended, incision (Dressing saturated with serous drainage and changed, tee intact), Pannus present, obesity and other (Gastrostomy tube in place and clamped, serous drainage on gauze dressing) GI Palp: Yes Soft to palpation and No Guarding due to palpation present (GI) Auscultation: normal bowel sounds Objective Data Vital Signs Vital Signs: Vital Signs - 24 hr 06/26/24 16:00 06/26/24 16:00 06/26/24 16:00 Temperature 100.7 F H Pulse Rate 70 Respiratory Rate 27 H Blood Pressure 109/57 L Pulse Oximetry 97 Oxygen Delivery Mechanical Ventilation Fraction of Inspired Oxygen 45 45 06/26/24 17:06 06/26/24 16:00 06/26/24 18:00 Temperature Pulse Rate 73 71 71 Respiratory Rate Blood Pressure Pulse Oximetry 97 Oxygen Delivery Mechanical Ventilation Fraction of Inspired Oxygen 45 06/26/24 18:00 06/26/24 20:10 06/26/24 20:15 Temperature 100.8 F H Pulse Rate 71 74 74 Respiratory Rate 30 H 24 H Blood Pressure 116/60 Pulse Oximetry 97 96 Oxygen Delivery Mechanical Ventilation Fraction of Inspired Oxygen 45 06/26/24 20:00 06/26/24 20:25 06/26/24 20:49 Temperature Pulse Rate 76 72 Respiratory Rate 24 H Blood Pressure Pulse Oximetry Oxygen Delivery Fraction of Inspired Oxygen 45 06/26/24 20:50 06/26/24 20:00 06/26/24 20:00 Temperature 101 F H Pulse Rate 75 Respiratory Rate Blood Pressure Pulse Oximetry Oxygen Delivery Mechanical Ventilation Fraction of Inspired Oxygen 45 06/26/24 20:00 06/26/24 22:00 06/26/24 22:00 Temperature 101 F H 100.6 F H Pulse Rate 75 78 78 Respiratory Rate 30 H 34 H Blood Pressure 118/59 L 122/54 L Pulse Oximetry 96 96 Oxygen Delivery Fraction of Inspired Oxygen 06/26/24 21:45 06/26/24 23:00 06/27/24 00:00 Temperature 100.4 F H Pulse Rate 74 Respiratory Rate Blood Pressure Pulse Oximetry 95 Oxygen Delivery Mechanical Ventilation Fraction of Inspired Oxygen 45 45 06/27/24 00:00 06/27/24 00:00 06/27/24 00:00 Temperature 100.1 F H Pulse Rate 73 73 Respiratory Rate 27 H Blood Pressure 104/56 L Pulse Oximetry 96 Oxygen Delivery Mechanical Ventilation Fraction of Inspired Oxygen 45 06/27/24 01:57 06/27/24 01:59 06/27/24 02:00 Temperature Pulse Rate 72 72 71 Respiratory Rate 32 H Blood Pressure Pulse Oximetry 96 Oxygen Delivery Mechanical Ventilation Fraction of Inspired Oxygen 45 06/27/24 04:00 06/27/24 02:00 06/27/24 04:00 Temperature 100 F H 99.7 F H Pulse Rate 71 71 71 Respiratory Rate 34 H 26 H Blood Pressure 114/51 L 114/59 L Pulse Oximetry 96 96 Oxygen Delivery Fraction of Inspired Oxygen 06/27/24 04:00 06/27/24 05:20 06/27/24 02:10 Temperature Pulse Rate 72 73 Respiratory Rate 28 H Blood Pressure Pulse Oximetry 96 Oxygen Delivery Mechanical Ventilation Fraction of Inspired Oxygen 45 45 06/27/24 04:00 06/27/24 06:36 06/27/24 06:36 Temperature 100.0 F H Pulse Rate 69 69 Respiratory Rate 14 Blood Pressure 130/65 Pulse Oximetry 95 Oxygen Delivery Mechanical Ventilation Fraction of Inspired Oxygen 45 06/27/24 07:40 06/27/24 07:40 06/27/24 07:49 Temperature Pulse Rate 75 76 75 Respiratory Rate 17 22 H Blood Pressure Pulse Oximetry 94 Oxygen Delivery Mechanical Ventilation Fraction of Inspired Oxygen 45 06/27/24 08:55 06/27/24 08:10 06/27/24 08:10 Temperature 99.7 F H Pulse Rate 79 75 Respiratory Rate 30 H Blood Pressure 137/73 Pulse Oximetry 95 Oxygen Delivery Fraction of Inspired Oxygen 45 06/27/24 08:23 06/27/24 09:45 06/27/24 10:00 Temperature Pulse Rate 72 79 80 Respiratory Rate Blood Pressure 128/73 128/66 124/64 Pulse Oximetry Oxygen Delivery Fraction of Inspired Oxygen 06/27/24 10:15 06/27/24 10:30 06/27/24 10:45 Temperature Pulse Rate 79 79 79 Respiratory Rate Blood Pressure 118/61 121/66 113/71 Pulse Oximetry Oxygen Delivery Fraction of Inspired Oxygen 06/27/24 11:00 06/27/24 11:15 06/27/24 08:00 Temperature Pulse Rate 79 81 Respiratory Rate Blood Pressure 106/67 123/69 Pulse Oximetry 95 Oxygen Delivery Mechanical Ventilation Fraction of Inspired Oxygen 45 06/27/24 08:00 06/27/24 08:00 06/27/24 08:00 Temperature 99.6 F Pulse Rate 75 75 Respiratory Rate 30 H Blood Pressure 137/73 Pulse Oximetry 95 Oxygen Delivery Fraction of Inspired Oxygen 45 06/27/24 08:30 06/27/24 08:45 06/27/24 09:00 Temperature Pulse Rate 79 82 78 Respiratory Rate Blood Pressure 114/51 L 125/71 131/70 Pulse Oximetry Oxygen Delivery Fraction of Inspired Oxygen 06/27/24 09:15 06/27/24 09:30 06/27/24 10:00 Temperature Pulse Rate 81 84 81 Respiratory Rate Blood Pressure 118/65 119/61 Pulse Oximetry Oxygen Delivery Fraction of Inspired Oxygen 06/27/24 10:00 06/27/24 11:41 06/27/24 11:30 Temperature 100.1 F H Pulse Rate 81 80 81 Respiratory Rate 30 H Blood Pressure 124/64 138/69 Pulse Oximetry 95 93 Oxygen Delivery Mechanical Ventilation Fraction of Inspired Oxygen 45 06/27/24 12:15 06/27/24 11:45 06/27/24 12:00 Temperature Pulse Rate 82 79 83 Respiratory Rate Blood Pressure 120/61 118/61 107/63 Pulse Oximetry Oxygen Delivery Fraction of Inspired Oxygen 06/27/24 12:00 06/27/24 12:23 06/27/24 12:40 Temperature 101.3 F H Pulse Rate 84 86 89 Respiratory Rate 32 H Blood Pressure 123/62 124/60 Pulse Oximetry 95 Oxygen Delivery Fraction of Inspired Oxygen 06/27/24 13:58 06/27/24 14:02 06/27/24 14:05 Temperature Pulse Rate 78 77 78 Respiratory Rate 34 H 33 H Blood Pressure Pulse Oximetry 94 Oxygen Delivery Mechanical Ventilation Fraction of Inspired Oxygen 45 06/27/24 14:00 06/27/24 12:00 06/27/24 12:00 Temperature 100.9 F H Pulse Rate 78 84 Respiratory Rate 30 H Blood Pressure 107/63 Pulse Oximetry 93 94 Oxygen Delivery Mechanical Ventilation Fraction of Inspired Oxygen 45 06/27/24 12:00 06/27/24 14:00 Temperature 101.7 F H Pulse Rate 78 Respiratory Rate 34 H Blood Pressure 122/63 Pulse Oximetry 94 Oxygen Delivery Fraction of Inspired Oxygen 45 Intake/Output Intake/Output: Intake & Output 06/24/24 06/25/24 06/26/24 06/27/24 23:59 23:59 23:59 23:59 Intake Total 1280.8 1160 366 Output Total 2815 335 4125 Balance -1534.2 825 -6112 Meds/Results Medications: Active Medications Generic Name Dose Route Start Last Admin Trade Name Freq PRN Reason Stop Dose Admin Acetaminophen 650 mg 06/07/24 21:53 06/27/24 01:25 Acetaminophen Elixir 325 Mg/10.15 Ml Udc PO 650 mg Q6H PRN Administration Mild Pain (1-3) or Fever Albuterol/Ipratropium 3 ml 06/05/24 11:15 06/27/24 13:58 Ipratropium 0.5 Mg/Albuterol Sulfate 2.5 Mg Ampul.Neb 3 Ml INHALATION 3 ml Q6HRT JONH Administration Amiodarone HCl 200 mg 06/02/24 21:00 06/27/24 08:55 Amiodarone Hcl 200 Mg Tablet PO 200 mg Q12HR JOHN Administration Apixaban 5 mg 06/27/24 09:00 06/27/24 08:56 Apixaban 5 Mg Tablet FEED TUBE 5 mg Q12HR JOHN Administration Dextrose 12.5 gm 06/05/24 11:46 Dextrose 50% 25 Gm/50 Ml Syringe IV PUSH PRN PRN Hypoglycemia Protocol Epoetin Shayan-epbx 10,000 units 06/18/24 09:00 06/27/24 10:25 Epoetin Shayan-Epbx 10,000 Units/Ml Vial IV PUSH 10,000 units MOWEFR@09 JOHN Administration Fidaxomicin 200 mg 06/24/24 01:35 WOOD 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 BUILDER 06/27/24 08:55 Fidaxomicin 200 Mg Tablet PO 200 mg Q12HR JOHN Administration Glucagon 1 mg 06/05/24 11:46 Glucagon For Inj 1 Mg Vial IM PRN PRN Hypoglycemia Protocol Glucose 15 gm 06/05/24 11:46 Glucose Oral Gel 15 Gm Of Glucse In 37.5 Gm Tube PO PRN PRN Hypoglycemia Protocol Dextrose 1,000 mls @ 100 mls/hr 06/05/24 11:46 Dextrose 5% 1,000 Ml IVPB PRN PRN Hypoglycemia Protocol Albumin Human 50 mls @ 999 mls/hr 06/08/24 09:50 06/12/24 11:39 Albutein IVPB 07/08/24 09:49 Infused Q10M PRN Infusion HYPOTENSION Cefepime HCl 1 gm in 50 mls @ 100 mls/hr 06/27/24 18:00 Maxipime 1 Gm/Ns 50 Ml IVPB DAILY@1800 [facility] Insulin Aspart 3 - 6 units 06/05/24 12:00 06/27/24 13:07 Insulin Aspart (*Bkc) 100 Units/Ml SUB-Q Not Given Q6HR [facility] Protocol Linezolid 600 mg 06/27/24 21:00 Linezolid 600 Mg Tablet FEED TUBE 07/01/24 09:01 Q12HR [facility] Metoclopramide HCl 10 mg 06/27/24 08:30 06/27/24 13:38 Metoclopramide Hcl 10 Mg/10 Ml Soln Udc FEED TUBE 10 mg Q6H JOHN Administration Midodrine 10 mg 06/17/24 22:00 06/27/24 13:38 Midodrine Hcl 10 Mg Tablet PO 10 mg Q8H [facility] Administration Morphine Sulfate 2 mg 06/27/24 12:55 06/27/24 13:26 Morphine Sulfate (*Crx) 2 Mg/Ml Inj IV PUSH 2 mg Q3H PRN Administration Pain Rated 7-10 Multi-Ingred Cream/Lotion/Oil/Oint 1 applic 06/05/24 09:00 06/27/24 08:55 Mineral Oil/White Petrolatum Ointment EACH EYE 1 applic Q12HR [facility] Administration Ondansetron HCl 4 mg 06/11/24 07:47 06/27/24 06:30 Ondansetron Inj 4 Mg/2 Ml Vial IV PUSH 4 mg Q6H PRN Administration Nausea And Vomiting Pantoprazole Sodium 40 mg 06/06/24 09:00 06/27/24 13:26 Pantoprazole Sodium Iv 40 Mg Vial IV PUSH 40 mg Q12HR JOHN Administration Umeclidinium [place] 1 puff 06/03/24 08:00 06/14/24 12:38 Umeclidinium [place] 62.5 Mcg Ellipta INHALATION Not Given DAILYRT JOHN Radiology Results: ITS Impressions Renal Ultrasound 06/04/24 15:06 IMPRESSION: 1. Normal kidneys. No hydronephrosis. Abdomen Ultrasound 06/10/24 14:47 IMPRESSION: Fat infiltration. Enlarged left lobe of the liver. Slightly thickened wall of the gallbladder. Trace of ascites. Otherwise, normal Limited ultrasound of the abdomen. Abdomen X-Ray 06/16/24 13:54 IMPRESSION: 1. Nasogastric tube tip in the stomach. 2. Nonobstructive bowel gas pattern. 3. Diffuse lung disease, consistent with pulmonary edema versus pneumonia. 4. Cardiomegaly. Venous Doppler Study 06/17/24 11:49 IMPRESSION: 1. No deep venous thrombosis. Central Venous Line 06/22/24 14:36 IMPRESSION: 1. Right internal jugular central venous catheter tip at the caudal superior vena cava. Chest X-Ray 06/24/24 07:06 IMPRESSION: 1. Unchanged opacities in the left mid to lower lung zone which could represent atelectasis or pneumonia. 2. Cardiomegaly with interval improvement in prior pulmonary vascular congestion. Chest/Abdomen/Pelvis CT 06/24/24 21:07 IMPRESSION: Diffuse patchy bilateral pulmonary ground glass infiltrates suggesting pneumonitis, less likely small airways disease Prominent bilateral lower lobe atelectasis with air bronchograms Cardiomegaly Splenomegaly Labs Labs: Laboratory Results - last 24 hr 06/26/24 06/27/24 06/27/24 18:04 00:03 04:04 WBC 14.7 H RBC 3.67 L Hgb 9.9 L Hct 31.5 L MCV 85.8 MCH 27.0 MCHC 31.4 L RDW 19.1 H Plt Count 367 MPV 10.1 Sodium 133 L Potassium 3.2 L Chloride 96 L Carbon Dioxide 20 L Anion Gap 17 H BUN 94 H D Creatinine 6.50 H Estim Creat Clear Calc 13 Estimated GFR 7 L Glucose 99 POC Capillary Glucose 91 110 H Calcium 10.1 Magnesium 2.5 H Total Bilirubin 2.0 H AST 228 H ALT 26 Alkaline Phosphatase 275 H Total Protein 7.0 Albumin 3.3 L 06/27/24 12:35 WBC RBC Hgb Hct MCV MCH MCHC RDW Plt Count MPV Sodium Potassium Chloride Carbon Dioxide Anion Gap BUN Creatinine Estim Creat Clear Calc Estimated GFR Glucose POC Capillary Glucose 130 H Calcium Magnesium Total Bilirubin AST ALT Alkaline Phosphatase Total Protein Albumin
--- NOTE | 2024-06-27 16:37 | PM.IMPN ---
Progress Note: A&P Assessment and Plan (1) Acute respiratory failure: Code(s): J96.00 - Acute respiratory failure, unspecified whether with hypoxia or hypercapnia Status: Acute Assessment and Plan: Patient originally admitted for difficulty voiding. Patient developed HoTN and hypoxia on 06/04 that worsened overnight. ABG showing 7.33/58/66.5 on HFNC. Patient brought to the ICU in the cold roll packer sheet iron hours of 06/05. She had increasing O2 requirements. CXR showed bilateral diffuse pulmonary infiltrates/pulmonary edema. Respiratory failure related to pulmonary edema, pneumonia and/or ARDS Patient was placed on BiPAP but ultimately intubated on 06/05/24. Despite daily HD, CXR continued to show edema vs PNA. CT Ch/A/P showing diffuse disease consider ARDS but unable to tell until she is euvolemic. CT Chest 06/24 showing diffuse patchy bilateral pulmonary ground glass infiltrates PEG, Trach were discussed and family agreed. PEG per endoscopy unlikely given her hepatomegaly and required surgical approach. PEG and Trach placed 06/25 Continue dialysis for fluid removal per nephrology. Wean vent as tolerated. Appreciate activity therapist input (2) Septic shock: Code(s): A41.9 - Sepsis, unspecified organism; R65.21 - Severe sepsis with septic shock Status: Acute Assessment and Plan: Patient was HoTN in the IMU and transferred to the ICU. Septic shock possibly related to UTI, pneumonia, bacteremia. Rt IJ central line was placed and Levophed started. She received fluids, albumin and midodrine BCx and UCx 06/02 negative. BCx 06/06 grew EColi and Staph Epidermidis. EColi was pansensitive. UCx 06/06 negative. Sputum Cx 06/07 growing yeast. BCx 06/08 negative Patient was on vancomycin and cefepime which were continued. Fluconazole was discontinued given her renal dysfunction Stress dose steroids were started but are off now Cause of bacteremia probably urinary source given UA results despite UCx being negative. Completed a course and was off all abx since 06/12. 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 Persistent fevers. 06/17 LE venous doppler negative for DVT. CT Ch/A/P showing diffuse lung disease, consider PNA but otherwise no obvious source for fever. Increased WBC in the 11-15K range CT Ch/A/P 06/24 showing diffuse patchy bilateral pulmonry ground glass infiltrates. BCx 06/22 NGTD. Sputum Cx 06/23 Yeast. UCx 06/23 growing 50-100K VRE. Patient with diarrhea and now CDiff positive. Continue Linezolid, Cefepime and Dificid. Flagyl stopped. Monitor fever curve (3) JOVI (acute kidney injury): Code(s): N17.9 - Acute kidney failure, unspecified Status: Acute Assessment and Plan: Baseline Cr normal in April. Cr 2.1 on admission and has worsened JOVI related to shock, sepsis, UTI/pneumonia, hypoxia, SLE flare and/or CHF. TCK levels are normal. Ueos negative. Urine lytes c/w prerenal picture but patient seems to be volume overloaded Treated with IV fluids and albumin but renal function worsening and HD recommended. Surveillance Dual Rate Officer consulted and dialysis catheter was placed 06/05 in the right IJ and exchanged for the central line HD daily with removal of anywhere from 2.9-4L per day and was getting HD daily Cumulative fluid balance of -24L. Still appears to be fluid overloaded but much improved. Tunnelled HD catheter placed 06/22. HD per nephrology recommendations. (4) C. difficile diarrhea: Code(s): A04.72 - Enterocolitis due to Clostridium difficile, not specified as recurrent Status: Acute Assessment and Plan: As above. CT abdomen pelvis reviewed and shows no colon Dilation Diarrhea persistent but is on tube feedings Continue Dificid. IV Flagyl stopped (5) Pulmonary edema: Code(s): J81.1 - Chronic pulmonary edema Status: Acute Assessment and Plan: CT chest (06/04) showing diffuse lung disease c/w PNA vs pulmonary edema vs ARDS. COVID, RSV and influenza PCR negative Echo showing normal LV size and fxn (EF 65-70%), Grade I diastolic dysfxn, RV enlargement with normal fxn, moderate bi-atrial enlargement and mild-mod TR. Pulmonary edema likely related to diastolic CHF, PNA, JOVI, ARDS. She did not respond to Bumex CT Chest 06/24 showing: diffuse patchy bilateral pulmonry ground glass infiltrates. Control fluid status with HD (6) Type 2 diabetes mellitus: Code(s): E11.9 - Type 2 diabetes mellitus without complications Status: Acute Assessment and Plan: A1c 5.7. The patient's blood glucose was reviewed on 06/28 Glucose remains reasonably well controlled. Continue AccuCheks covering with sliding scale. Hypoglycemia protocol available as needed. Continue to monitor (7) Afib: Code(s): I48.91 - Unspecified atrial fibrillation Status: Acute Assessment and Plan: HR well controlled and tele showing normal sinus. Flecainide stopped. Continue amiodarone and Eliquis (8) SLE (systemic lupus erythematosus): Code(s): M32.9 - Systemic lupus erythematosus, unspecified Status: Acute Assessment and Plan: Consider SLE flare causing her JOVI but felt less likely. dsDNA negative and C3/C4 normal. ANCA and anti-GBM negative Was started on stress dose steroids but now off Nephrology following. (9) Liver cirrhosis secondary to HOFFMANN: Code(s): K75.81 - Nonalcoholic steatohepatitis (HOFFMANN); K74.60 - Unspecified cirrhosis of liver Status: Acute Assessment and Plan: Patient has a hx of liver cirrhosis. CT abd without contrast shows normal liver but moderate volume of ascites and body wall edema consistent with her fluid overload. RUQ ultrasound 06/10 showing fat infiltration, enlarged left lobe of the liver and slightly thickened wall of the gallbladder. Trace ascites. The liver does cross the midline making GTube placement near impossible Mild elevation in AST/ALT with AST higher and ALT normal. Hepatitis panel is negative Altair elevated LFTs related to congestion. Check TCK. Continue to monitor (10) Pancreatitis: Code(s): K85.90 - Acute pancreatitis without necrosis or infection, unspecified Status: Acute Assessment and Plan: Lipase elevated. Had n/v today. CT abdomen pelvis unremarkable Resume tube feeds and monitor closely. Reglan added. (11) Morbid obesity with BMI of 50.0-59.9, adult: Code(s): E66.01 - Morbid (severe) obesity due to excess calories; Z68.43 - Body mass index [BMI] 50.0-59.9, adult Status: Acute Assessment and Plan: Once extubated she will need lifestyle changes Plan DVT prophylaxis: Chance Code Status: Full code Subjective Date/time seen: 06/27/24 16:37 Interval history: 54yo female with AFib on anticoagulation, PM and DM here for difficulty voiding. Patient had worsening respiratory status and hypotension despite ongoing therapy and was transferred to the ICU in the cold roll packer sheet iron hours of 06/05. Central line was placed and started on pressor therapy. She was intubated later that morning. Assuming care. Chart reviewed. Patient undergoing hemodialysis. She had an episode of nausea and vomiting this morning. She was at goal tube feeding. She is off sedation. She is still having increased stool output and has fecal containment system in place. Still having fevers Review of Systems Review of Systems: ROS unobtainable: Yes unobtainable due to endotracheal tube Exam Narrative: Tm 101.7 121/59 80 38 94% MV Gen - intubated via trach Neck - Rt tunneled HD catheter, trach secured and vent in place Chest - coarse breath sounds CV - RRR S1/S2. Tele showing paced rhythm Abd - soft, morbidly obese, improved abd wall edema. Peg tube dsg clean and dry - Lai secured with scant amount of dark yellow urine in the bag. Fecal cont system in place Ext - trace LE pitting pedal edema. 2+ DP pulses Neuro - arouses easily. Skin - Warm and dry Objective Data Vital Signs Vital Signs: Vital Signs - 24 hr 06/26/24 17:06 06/26/24 18:00 06/26/24 18:00 Temperature 100.8 F H Pulse Rate 73 71 71 Respiratory Rate 30 H Blood Pressure 116/60 Pulse Oximetry 97 97 Oxygen Delivery Mechanical Ventilation Fraction of Inspired Oxygen 45 06/26/24 20:10 06/26/24 20:15 06/26/24 20:00 Temperature Pulse Rate 74 74 Respiratory Rate 24 H Blood Pressure Pulse Oximetry 96 Oxygen Delivery Mechanical Ventilation Fraction of Inspired Oxygen 45 45 06/26/24 20:25 06/26/24 20:49 06/26/24 20:50 Temperature 101 F H Pulse Rate 76 72 Respiratory Rate 24 H Blood Pressure Pulse Oximetry Oxygen Delivery Fraction of Inspired Oxygen 06/26/24 20:00 06/26/24 20:00 06/26/24 20:00 Temperature 101 F H Pulse Rate 75 75 Respiratory Rate 30 H Blood Pressure 118/59 L Pulse Oximetry 96 Oxygen Delivery Mechanical Ventilation Fraction of Inspired Oxygen 45 06/26/24 22:00 06/26/24 22:00 06/26/24 21:45 Temperature 100.6 F H 100.4 F H Pulse Rate 78 78 Respiratory Rate 34 H Blood Pressure 122/54 L Pulse Oximetry 96 Oxygen Delivery Fraction of Inspired Oxygen 06/26/24 23:00 06/27/24 00:00 06/27/24 00:00 Temperature 100.1 F H Pulse Rate 74 73 Respiratory Rate 27 H Blood Pressure 104/56 L Pulse Oximetry 95 96 Oxygen Delivery Mechanical Ventilation Fraction of Inspired Oxygen 45 45 06/27/24 00:00 06/27/24 00:00 06/27/24 01:57 Temperature Pulse Rate 73 72 Respiratory Rate Blood Pressure Pulse Oximetry 96 Oxygen Delivery Mechanical Ventilation Mechanical Ventilation Fraction of Inspired Oxygen 45 45 06/27/24 01:59 06/27/24 02:00 06/27/24 04:00 Temperature Pulse Rate 72 71 71 Respiratory Rate 32 H Blood Pressure Pulse Oximetry Oxygen Delivery Fraction of Inspired Oxygen 06/27/24 02:00 06/27/24 04:00 06/27/24 04:00 Temperature 100 F H 99.7 F H Pulse Rate 71 71 Respiratory Rate 34 H 26 H Blood Pressure 114/51 L 114/59 L Pulse Oximetry 96 96 Oxygen Delivery Fraction of Inspired Oxygen 45 06/27/24 05:20 06/27/24 02:10 06/27/24 04:00 Temperature Pulse Rate 72 73 Respiratory Rate 28 H Blood Pressure Pulse Oximetry 96 Oxygen Delivery Mechanical Ventilation Mechanical Ventilation Fraction of Inspired Oxygen 45 45 06/27/24 06:36 06/27/24 06:36 06/27/24 07:40 Temperature 100.0 F H Pulse Rate 69 69 75 Respiratory Rate 14 17 Blood Pressure 130/65 Pulse Oximetry 95 Oxygen Delivery Fraction of Inspired Oxygen 06/27/24 07:40 06/27/24 07:49 06/27/24 08:55 Temperature Pulse Rate 76 75 79 Respiratory Rate 22 H Blood Pressure Pulse Oximetry 94 Oxygen Delivery Mechanical Ventilation Fraction of Inspired Oxygen 45 06/27/24 08:10 06/27/24 08:10 06/27/24 08:23 Temperature 99.7 F H Pulse Rate 75 72 Respiratory Rate 30 H Blood Pressure 137/73 128/73 Pulse Oximetry 95 Oxygen Delivery Fraction of Inspired Oxygen 45 06/27/24 09:45 06/27/24 10:00 06/27/24 10:15 Temperature Pulse Rate 79 80 79 Respiratory Rate Blood Pressure 128/66 124/64 118/61 Pulse Oximetry Oxygen Delivery Fraction of Inspired Oxygen 06/27/24 10:30 06/27/24 10:45 06/27/24 11:00 Temperature Pulse Rate 79 79 79 Respiratory Rate Blood Pressure 121/66 113/71 106/67 Pulse Oximetry Oxygen Delivery Fraction of Inspired Oxygen 06/27/24 11:15 06/27/24 08:00 06/27/24 08:00 Temperature Pulse Rate 81 Respiratory Rate Blood Pressure 123/69 Pulse Oximetry 95 Oxygen Delivery Mechanical Ventilation Fraction of Inspired Oxygen 45 45 06/27/24 08:00 06/27/24 08:00 06/27/24 08:30 Temperature 99.6 F Pulse Rate 75 75 79 Respiratory Rate 30 H Blood Pressure 137/73 114/51 L Pulse Oximetry 95 Oxygen Delivery Fraction of Inspired Oxygen 06/27/24 08:45 06/27/24 09:00 06/27/24 09:15 Temperature Pulse Rate 82 78 81 Respiratory Rate Blood Pressure 125/71 131/70 118/65 Pulse Oximetry Oxygen Delivery Fraction of Inspired Oxygen 06/27/24 09:30 06/27/24 10:00 06/27/24 10:00 Temperature 100.1 F H Pulse Rate 84 81 81 Respiratory Rate 30 H Blood Pressure 119/61 124/64 Pulse Oximetry 95 Oxygen Delivery Fraction of Inspired Oxygen 06/27/24 11:41 06/27/24 11:30 06/27/24 12:15 Temperature Pulse Rate 80 81 82 Respiratory Rate Blood Pressure 138/69 120/61 Pulse Oximetry 93 Oxygen Delivery Mechanical Ventilation Fraction of Inspired Oxygen 45 06/27/24 11:45 06/27/24 12:00 06/27/24 12:00 Temperature Pulse Rate 79 83 84 Respiratory Rate Blood Pressure 118/61 107/63 Pulse Oximetry Oxygen Delivery Fraction of Inspired Oxygen 06/27/24 12:23 06/27/24 12:40 06/27/24 13:58 Temperature 101.3 F H Pulse Rate 86 89 78 Respiratory Rate 32 H 34 H Blood Pressure 123/62 124/60 Pulse Oximetry 95 Oxygen Delivery Fraction of Inspired Oxygen 06/27/24 14:02 06/27/24 14:05 06/27/24 14:00 Temperature Pulse Rate 77 78 78 Respiratory Rate 33 H Blood Pressure Pulse Oximetry 94 Oxygen Delivery Mechanical Ventilation Fraction of Inspired Oxygen 45 06/27/24 12:00 06/27/24 12:00 06/27/24 12:00 Temperature 100.9 F H Pulse Rate 84 Respiratory Rate 30 H Blood Pressure 107/63 Pulse Oximetry 93 94 Oxygen Delivery Mechanical Ventilation Fraction of Inspired Oxygen 45 45 06/27/24 14:00 06/27/24 16:00 06/27/24 16:00 Temperature 101.7 F H Pulse Rate 78 Respiratory Rate 34 H Blood Pressure 122/63 Pulse Oximetry 94 96 Oxygen Delivery Mechanical Ventilation Fraction of Inspired Oxygen 45 45 06/27/24 16:00 Temperature 101.6 F H Pulse Rate 80 Respiratory Rate 38 H Blood Pressure 121/59 L Pulse Oximetry 94 Oxygen Delivery Fraction of Inspired Oxygen Intake/Output Intake/Output: Intake & Output 06/24/24 06/25/24 06/26/24 06/27/24 23:59 23:59 23:59 23:59 Intake Total 1280.8 1160 366 Output Total 2815 335 4125 Balance -1534.2 825 -9318 Meds/Results Medications: Active Medications Generic Name Dose Route Start Last Admin Trade Name Freq PRN Reason Stop Dose Admin Acetaminophen 650 mg 06/07/24 21:53 06/27/24 09:30 Acetaminophen Elixir 325 Mg/10.15 Ml Udc PO 650 mg Q6H PRN Administration Mild Pain (1-3) or Fever Albuterol/Ipratropium 3 ml 06/05/24 11:15 06/27/24 13:58 Ipratropium 0.5 Mg/Albuterol Sulfate 2.5 Mg Ampul.Neb 3 Ml INHALATION 3 ml Q6HRT JOHN Administration Amiodarone HCl 200 mg 06/02/24 21:00 06/27/24 08:55 Amiodarone Hcl 200 Mg Tablet PO 200 mg Q12HR JOHN Administration Apixaban 5 mg 06/27/24 09:00 06/27/24 08:56 Apixaban 5 Mg Tablet FEED TUBE 5 mg Q12HR JOHN Administration Dextrose 12.5 gm 06/05/24 11:46 Dextrose 50% 25 Gm/50 Ml Syringe IV PUSH PRN PRN Hypoglycemia Protocol Epoetin Shayan-epbx 10,000 units 06/18/24 09:00 06/27/24 10:25 Epoetin Shayan-Epbx 10,000 Units/Ml Vial IV PUSH 10,000 units MOWEFR@09 JOHN Administration Fidaxomicin 200 mg 06/24/24 01:35 OSTEOPATHIC PHYSICIAN 06/27/24 08:55 Fidaxomicin 200 Mg Tablet PO 200 mg Q12HR JOHN Administration Glucagon 1 mg 06/05/24 11:46 Glucagon For Inj 1 Mg Vial IM PRN PRN Hypoglycemia Protocol Glucose 15 gm 06/05/24 11:46 Glucose Oral Gel 15 Gm Of Glucse In 37.5 Gm Tube PO PRN PRN Hypoglycemia Protocol Dextrose 1,000 mls @ 100 mls/hr 06/05/24 11:46 Dextrose 5% 1,000 Ml IVPB PRN PRN Hypoglycemia Protocol Albumin Human 50 mls @ 999 mls/hr 06/08/24 09:50 06/12/24 11:39 Albutein IVPB 07/08/24 09:49 Infused Q10M PRN Infusion HYPOTENSION Cefepime HCl 1 gm in 50 mls @ 100 mls/hr 06/27/24 18:00 Maxipime 1 Gm/Ns 50 Ml IVPB DAILY@1800 [facility] Insulin Aspart 3 - 6 units 06/05/24 12:00 06/27/24 13:07 Insulin Aspart (*Bkc) 100 Units/Ml SUB-Q Not Given Q6HR [facility] Protocol Linezolid 600 mg 06/27/24 21:00 Linezolid 600 Mg Tablet FEED TUBE 07/01/24 09:01 Q12HR [facility] Metoclopramide HCl 10 mg 06/27/24 08:30 06/27/24 13:38 Metoclopramide Hcl 10 Mg/10 Ml Soln Udc FEED TUBE 10 mg Q6H JOHN Administration Midodrine 10 mg 06/17/24 22:00 06/27/24 13:38 Midodrine Hcl 10 Mg Tablet PO 10 mg Q8H [facility] Administration Morphine Sulfate 2 mg 06/27/24 12:55 06/27/24 13:26 Morphine Sulfate (*Crx) 2 Mg/Ml Inj IV PUSH 2 mg Q3H PRN Administration Pain Rated 7-10 Multi-Ingred Cream/Lotion/Oil/Oint 1 applic 06/05/24 09:00 06/27/24 08:55 Mineral Oil/White Petrolatum Ointment EACH EYE 1 applic Q12HR JOHN Administration Ondansetron HCl 4 mg 06/11/24 07:47 06/27/24 06:30 Ondansetron Inj 4 Mg/2 Ml Vial IV PUSH 4 mg Q6H PRN Administration Nausea And Vomiting Pantoprazole Sodium 40 mg 06/06/24 09:00 06/27/24 13:26 Pantoprazole Sodium Iv 40 Mg Vial IV PUSH 40 mg Q12HR JOHN Administration Umeclidinium [place] 1 puff 06/03/24 08:00 06/14/24 12:38 Umeclidinium [place] 62.5 Mcg Ellipta INHALATION Not Given DAILYRT [facility] Radiology Results: ITS Impressions Renal Ultrasound 06/04/24 15:06 IMPRESSION: 1. Normal kidneys. No hydronephrosis. Abdomen Ultrasound 06/10/24 14:47 IMPRESSION: Fat infiltration. Enlarged left lobe of the liver. Slightly thickened wall of the gallbladder. Trace of ascites. Otherwise, normal Limited ultrasound of the abdomen. Abdomen X-Ray 06/16/24 13:54 IMPRESSION: 1. Nasogastric tube tip in the stomach. 2. Nonobstructive bowel gas pattern. 3. Diffuse lung disease, consistent with pulmonary edema versus pneumonia. 4. Cardiomegaly. Venous Doppler Study 06/17/24 11:49 IMPRESSION: 1. No deep venous thrombosis. Central Venous Line 06/22/24 14:36 IMPRESSION: 1. Right internal jugular central venous catheter tip at the caudal superior vena cava. Chest X-Ray 06/24/24 07:06 IMPRESSION: 1. Unchanged opacities in the left mid to lower lung zone which could represent atelectasis or pneumonia. 2. Cardiomegaly with interval improvement in prior pulmonary vascular congestion. Chest/Abdomen/Pelvis CT 06/24/24 21:07 IMPRESSION: Diffuse patchy bilateral pulmonary ground glass infiltrates suggesting pneumonitis, less likely small airways disease Prominent bilateral lower lobe atelectasis with air bronchograms Cardiomegaly Splenomegaly Labs Labs: Laboratory Results - last 24 hr 06/26/24 06/27/24 06/27/24 18:04 00:03 04:04 WBC 14.7 H RBC 3.67 L Hgb 9.9 L Hct 31.5 L MCV 85.8 MCH 27.0 MCHC 31.4 L RDW 19.1 H Plt Count 367 MPV 10.1 Sodium 133 L Potassium 3.2 L Chloride 96 L Carbon Dioxide 20 L Anion Gap 17 H BUN 94 H D Creatinine 6.50 H Estim Creat Clear Calc 13 Estimated GFR 7 L Glucose 99 POC Capillary Glucose 91 110 H Calcium 10.1 Magnesium 2.5 H Total Bilirubin 2.0 H AST 228 H ALT 26 Alkaline Phosphatase 275 H Total Protein 7.0 Albumin 3.3 L 06/27/24 12:35 WBC RBC Hgb Hct MCV MCH MCHC RDW Plt Count MPV Sodium Potassium Chloride Carbon Dioxide Anion Gap BUN Creatinine Estim Creat Clear Calc Estimated GFR Glucose POC Capillary Glucose 130 H Calcium Magnesium Total Bilirubin AST ALT Alkaline Phosphatase Total Protein Albumin
[2024-06-27] MEDS: CEFEPIME 1 GM/NS 50 ML 1 GM/50 ML BAG IVPB (18:02)
[2024-06-27 18:08] LABS: Glucose Point of Care 114 mg/dl (65-105)
[2024-06-27] MEDS: dexmedeTOMIDine 400 MCG/100 ML 400 MCG/100 ML BAG 7.35 MCG IV CONT (19:56)
[2024-06-27 20:39] LABS: Creatine Kinase 28 U/L (30-135)
[2024-06-27 23:54] LABS: Glucose Point of Care 155 mg/dl (65-105)
[2024-06-28] VITALS (39 sets, daily range): BP systolic 108–136; BP diastolic 50–72; PULSE 60–88; RESP 24–44; TEMP 37.4–39.2; O2SAT 92–100
[2024-06-28] MEDS: METOCLOPRAMIDE HCL 10 MG/10 ML SOLN UDC FEED TUBE ×4 (02:00→20:38)
[2024-06-28] MEDS: dexmedeTOMIDine 400 MCG/100 ML 400 MCG/100 ML BAG 22.05 MCG IV CONT (02:00)
[2024-06-28] MEDS: IPRATROPIUM 0.5 MG/ALBUTEROL SULFATE 2.5 MG AMPUL.NEB 3 ML INHALATION ×4 (02:20→20:11)
[2024-06-28] MEDS: MORPHINE SULFATE (*CRX) 2 MG/ML INJ IV PUSH ×4 (02:35→20:25)
[2024-06-28] MEDS: ONDANSETRON INJ 4 MG/2 ML VIAL IV PUSH (04:04)
[2024-06-28] MEDS: ACETAMINOPHEN ELIXIR 325 MG/10.15 ML UDC 650 MG PO ×2 (04:05→11:41)
[2024-06-28] MEDS: dexmedeTOMIDine 400 MCG/100 ML 400 MCG/100 ML BAG 11.03 MCG IV CONT (05:10)
[2024-06-28 05:28] LABS: Hematocrit 35.8 % (37.0-47.0); Hemoglobin 10.5 g/dL (12.0-15.0); Mean Corpuscular HGB Conc 29.3 g/dl (32-36); Mean Corpuscular Hemoglobin 26.6 pg (26-34); Mean Corpuscular Volume 90.9 fl (80-100); Mean Platelet Volume 11.2 fl (7.4-10.4); Platelet Count Result 347 k/mm3 (150-375); Red Blood Count 3.94 M/mm3 (4.2-5.4); Red Cell Distribution Width 20.4 % (11.5-14.5); White Blood Count 14.1 K/mm3 (4.5-10.0)
[2024-06-28 06:07] LABS: Alanine Aminotransferase 24 U/L (6-35); Albumin Level 3.6 g/dL (3.5-5.1); Alkaline Phosphatase 302 U/L (38-126); Anion Gap 15 mmol/L (4-12); Aspartate Amino Transferase 209 U/L (14-36); Bilirubin,Total 2.4 mg/dL (0.2-1.3); Blood Urea Nitrogen 55 mg/dL (7-17); Calcium 9.9 mg/dL (8.4-10.2); Carbon Dioxide 22 mmol/L (22-30); Chloride 96 mmol/L (98-107); Estimated CRCL calculation 20 ml/min; Estimated Glomerular Filt Rate 11; Glucose 164 mg/dL (65-110); Magnesium 2.5 mg/dL (1.6-2.3); Potassium 4.2 mmol/L (3.4-5.0); Sodium 133 mmol/L (137-145)
[2024-06-28] MEDS: MIDODRINE HCL 10 MG TABLET PO ×3 (06:09→21:59)
[2024-06-28] MEDS: AMIODARONE HCL 200 MG TABLET PO ×2 (09:13→20:18)
[2024-06-28] MEDS: QUEtiapine FUMARATE 25 MG TABLET FEED TUBE ×2 (09:13→20:18)
[2024-06-28] MEDS: LINEZOLID 600 MG TABLET FEED TUBE ×2 (09:13→20:18)
[2024-06-28] MEDS: FIDAXOMICIN 200 MG TABLET PO ×2 (09:13→20:18)
[2024-06-28] MEDS: APIXABAN 5 MG TABLET FEED TUBE ×2 (09:13→20:18)
[2024-06-28] MEDS: PANTOPRAZOLE SODIUM IV 40 MG VIAL IV PUSH ×2 (09:14→20:19)
[2024-06-28] MEDS: MEROPENEM 1 GM/NS 100 ML 1 GM/100 ML BAG IVPB (09:14)
--- NOTE | 2024-06-28 09:28 | WPDINTPN ---
Progress Note: A&P Assessment and Plan (1) Acute respiratory failure: Code(s): J96.00 - Acute respiratory failure, unspecified whether with hypoxia or hypercapnia Status: Acute Assessment and Plan: Chest x-ray bilateral diffuse pulmonary infiltrates/pulmonary edema. Patient was placed on BiPAP. ABG showed hypercapnic and hypoxemic respiratory failure. Etiology pulmonary edema, pneumonia, ARDS -06/05: patient intubated for impending respiratory failure. Intubation was slightly challenging secondary to body habitus, small mouth, large tongue, redundant tissue in the hypopharynx and anterior vocal cords requiring cricoid pressure and use of glide scope. CT chest 06/17 IMPRESSION: 1. Diffuse lung disease, consistent with pulmonary edema versus pneumonia versus acute respiratory distress syndrome. 2. Cardiomegaly. 3. Small volume of ascites. -patient has failed her PSV trials multiple times and is not close to showing any signs of weaning - 06/19: Discussed with patient's sister who is the POA and patient's son, they they requested and agreeable for tracheostomy and PEG tube placement 06/25: Patient underwent tracheostomy and G-tube placement 06/28: Patient placed on PSV 05/04 chest x-ray reviewed and shows central congestive changes. Off sedation now (2) Septic shock: Code(s): A41.9 - Sepsis, unspecified organism; R65.21 - Severe sepsis with septic shock Status: Acute Assessment and Plan: Septic shock could be related to UTI, pneumonia -patient was hypotensive in the intermediate Unit and was transferred to the ICU which she received fluids, albumin -continue norepinephrine as needed to maintain mean arterial pressure. Currently off -off vancomycin, -completed cefepime for a total of 7 days -off stress dose steroids -continue midodrine -06/17: CT chest abdomen and pelvis for ongoing leukocytosis and vasopressor requirement. Will also obtain right lower extremity venous Dopplers since patient has a right lower extremity is erythematous, slightly swollen. 06/05/2024: Echocardiogram Summary 1. Left ventricular chamber dimension is normal. 2. Left ventricular systolic function is normal, estimated at 65-70%. 3. The left ventricular diastolic function is grade I diastolic dysfunction. 4. Right ventricular chamber dimension is moderately enlarged. 5. Right ventricular systolic function is normal. 6. Left atrial chamber dimension is moderately enlarged. 7. Right atrial chamber dimension is moderately enlarged. 8. There is mild to moderate tricuspid valve regurgitation. 11/2 overnight patient had a increase in WBC count and high-grade fevers Increased FiO2 requirement and increased endotracheal suction Procalcitonin level 4.9 Lai catheter was changed, UA suggestive of UTI and urine culture is growing VRE Sputum culture is growing yeast Blood cultures are negative CT scan showed - Diffuse patchy bilateral pulmonary ground glass infiltrates suggesting pneumonitis, less likely small airways disease Prominent bilateral lower lobe atelectasis with air bronchograms suggestive of pneumonia Patient also had diarrhea and tested positive for C diff Lipase was also elevated at 478. Patient continues to have fever Vancomycin changed to Zyvox. Continue Dificid. Change cefepime to meropenem Check venous Dopplers (3) JOVI (acute kidney injury): Code(s): N17.9 - Acute kidney failure, unspecified Status: Acute Assessment and Plan: Patient with acute kidney injury, with increase creatinine to 4.60 (creatinine on admission on 06/02/2024 was 2.10 and her creatinine on 04/26/2024 was 0.90) -etiology for acute kidney injury could be multifactorial, hypotension, shock, sepsis, UTI/pneumonia, hypoxia,? SLE flare, CHF, -CK levels are within normal limits -urine eosinophils were negative -urine electrolytes showed prerenal picture, patient seems to be volume overloaded -status post given IV fluids and albumin, will hold fluids for now -discussed with automotive wholesale parts advisor at [facility], feels that the patient is unstable to be transferred at this time for CRRT, recommended conventional dialysis. -discussed with hydroponics worker at [facility], agrees to conventional dialysis at this time -06/05: dialysis catheter was placed in the right IJ and exchange for the central line -06/05: Initiated dialysis, with 3000 mL of fluid removal -06/06: Dialysis with 3000 mL in fluid removal -06/07: Dialysis with 3700 mL in fluid removal -06/08: Dialysis with 2900 mL in fluid removal -06/09: Dialysis with 3000 mL in fluid removal -06/10: No dialysis -06/12: Patient was dialyzed and 3.1 P L fluid was removed -06/13 getting dialyzed again today. 4 L removed - 06/14: 3000 mL removed - 06/15: 4000 mL fluid was removed - 06/16: 4000 mL in fluid removal with dialysis - 06/18: 4000 ml in fluid removal - 06/20: 4000 mL in fluid removal - 06/22: Patient is getting dialyzed again today 4 L fluid removed Underwent tunneled dialysis catheter placement on 06/22/202406/25: Patient was dialyzed but only half of the session was completed due to patient needing to go to OR for surgery. 06/27:patient was dialyzed on 4 L fluid was removed (4) Pulmonary edema: Code(s): J81.1 - Chronic pulmonary edema Status: Acute Assessment and Plan: Pulmonary edema likely related to acute kidney injury, ARDS, -did not respond to Bumex -continue fluid removal with dialysis (5) Type 2 diabetes mellitus: Code(s): E11.9 - Type 2 diabetes mellitus without complications Status: Acute Assessment and Plan: SSI and accucheks HbA1C is 5.7 this admission (6) Afib: Code(s): I48.91 - Unspecified atrial fibrillation Status: Acute Assessment and Plan: continue amiodarone and Eliquis - flecainide was stopped (7) Liver cirrhosis secondary to HOFFMANN: Code(s): K75.81 - Nonalcoholic steatohepatitis (HOFFMANN); K74.60 - Unspecified cirrhosis of liver Status: Acute Assessment and Plan: Continues to have mild elevation in LFTs and bilirubin which is stable 06/10/2024: RUQ ultrasound: Fat infiltration. Enlarged left lobe of the liver. Slightly thickened wall of the gallbladder. Trace of ascites. Otherwise, normal Limited ultrasound of the abdomen. -06/10/2024: Hepatitis panel is negative -continue to monitor (8) GERD (gastroesophageal reflux disease): Code(s): K21.9 - Gastro-esophageal reflux disease without esophagitis Status: Acute Assessment and Plan: Continue Protonix (9) Pancreatitis: Code(s): K85.90 - Acute pancreatitis without necrosis or infection, unspecified Status: Acute Assessment and Plan: Lipase elevated CT abdomen pelvis unremarkable Continue tube feeds (10) C. difficile diarrhea: Code(s): A04.72 - Enterocolitis due to Clostridium difficile, not specified as recurrent Status: Acute Assessment and Plan: Continue Dificid. Will DC IV Flagyl CT abdomen pelvis reviewed and shows no colon Dilation Diarrhea seems to have improved Continue tube feeds Plan DVT prophylaxis: Eliquis Stress ulcer prophylaxis: Protonix Nutrition: Tube feeds Code Status: Full code Patient is being evaluated for transfer to LTAC. Critical Care Time Spent: 30 minutes Due to a high probability of clinically significant, life threatening deterioration, the patient required my highest level of preparedness to intervene emergently and I personally spent this critical care time directly and personally managing the patient. This critical care time included obtaining a history; examining the patient; pulse oximetry; ordering and review of studies; arranging urgent treatment with development of a management plan; evaluation of patient's response to treatment; frequent reassessment; and discussions with other providers. It was exclusive of separately billable procedures and treating other patients and teaching time. Please see Assessment and Plan section and the rest of the note for further information on patient assessment and treatment This dictation may have been done utilizing a voice recognition system. Attempts have been made to correct errors. However, there may be uncorrected grammatical, spelling, and recognitions errors present Subjective Date/time seen: 06/28/24 She was dialyzed yesterday. She continues to be on mechanical ventilation. She was febrile overnight. She was agitated and tachypneic and was started on Precedex infusion for short period and also given morphine for pain. Urine output is negligible. Tolerating tube feeds. Diarrhea has improved. Unable to provide any history review of system. Interval history: Reason for consult: Acute respiratory failure, septic shock, acute kidney injury, pulmonary edema 06/05: Intubated and hemodialysis initiated 06/22: Tunneled dialysis catheter placed 06/25: Tracheostomy and G-tube placement Review of Systems Review of Systems: ROS unobtainable: Yes unobtainable due to endotracheal tube, unobtainable due to medical condition and unobtainable due to mental status Exam Narrative: General: Morbidly obese female currently intubated and in no acute distress HEENT:? Pupils equal and reactive bilaterally, sclera is clear, trach in place Neck:, short and thick neck, Respiratory:? Decreased and coarse breath sounds bilaterally, no wheezing, Cardiac:? S1-S2 is normal, regular rate and rhythm Abdomen:? Morbid obesity, soft, hypoactive bowel sounds G-tube in place Extremities:? Bilateral lower extremity pitting edema improving, wrinkling of skin on the feet are noted, palpable pedal pulses. Right calf is warm, erythematous, nontender Neuro:? Patient is trach. On calling her name she Opens her eyes and regards examiner but does not follow any commands. PERRL Skin:? Erythema in the intertriginous region and under her pannus, skin is dry and warm Psych:? Unable to assess at this time Objective Data Vital Signs Vital Signs: Vital Signs - 24 hr 06/27/24 09:45 06/27/24 10:00 06/27/24 10:15 Temperature Pulse Rate 79 80 79 Respiratory Rate Blood Pressure 128/66 124/64 118/61 Pulse Oximetry Oxygen Delivery Fraction of Inspired Oxygen 06/27/24 10:30 06/27/24 10:45 06/27/24 11:00 Temperature Pulse Rate 79 79 79 Respiratory Rate Blood Pressure 121/66 113/71 106/67 Pulse Oximetry Oxygen Delivery Fraction of Inspired Oxygen 06/27/24 11:15 06/27/24 09:30 06/27/24 10:00 Temperature Pulse Rate 81 84 81 Respiratory Rate Blood Pressure 123/69 119/61 Pulse Oximetry Oxygen Delivery Fraction of Inspired Oxygen 06/27/24 10:00 06/27/24 11:41 06/27/24 11:30 Temperature 37.8 C H Pulse Rate 81 80 81 Respiratory Rate 30 H Blood Pressure 124/64 138/69 Pulse Oximetry 95 93 Oxygen Delivery Mechanical Ventilation Fraction of Inspired Oxygen 45 06/27/24 12:15 06/27/24 11:45 06/27/24 12:00 Temperature Pulse Rate 82 79 83 Respiratory Rate Blood Pressure 120/61 118/61 107/63 Pulse Oximetry Oxygen Delivery Fraction of Inspired Oxygen 06/27/24 12:00 06/27/24 12:23 06/27/24 12:40 Temperature 38.5 C H Pulse Rate 84 86 89 Respiratory Rate 32 H Blood Pressure 123/62 124/60 Pulse Oximetry 95 Oxygen Delivery Fraction of Inspired Oxygen 06/27/24 13:58 06/27/24 14:02 06/27/24 14:05 Temperature Pulse Rate 78 77 78 Respiratory Rate 34 H 33 H Blood Pressure Pulse Oximetry 94 Oxygen Delivery Mechanical Ventilation Fraction of Inspired Oxygen 45 06/27/24 14:00 06/27/24 12:00 06/27/24 12:00 Temperature 38.3 C H Pulse Rate 78 84 Respiratory Rate 30 H Blood Pressure 107/63 Pulse Oximetry 93 94 Oxygen Delivery Mechanical Ventilation Fraction of Inspired Oxygen 45 06/27/24 12:00 06/27/24 14:00 06/27/24 16:00 Temperature 38.7 C H Pulse Rate 78 Respiratory Rate 34 H Blood Pressure 122/63 Pulse Oximetry 94 96 Oxygen Delivery Mechanical Ventilation Fraction of Inspired Oxygen 45 45 06/27/24 16:00 06/27/24 16:00 06/27/24 16:44 Temperature 38.7 C H 38.7 C H Pulse Rate 80 Respiratory Rate 38 H Blood Pressure 121/59 L Pulse Oximetry 94 Oxygen Delivery Fraction of Inspired Oxygen 45 06/27/24 16:00 06/27/24 17:14 06/27/24 17:44 Temperature 38.6 C H Pulse Rate 81 78 Respiratory Rate Blood Pressure Pulse Oximetry 95 Oxygen Delivery Mechanical Ventilation Fraction of Inspired Oxygen 45 06/27/24 18:00 06/27/24 18:00 06/27/24 19:00 Temperature 38.5 C H 38.4 C H Pulse Rate 79 79 80 Respiratory Rate 38 H 38 H Blood Pressure 127/59 L 133/67 Pulse Oximetry 96 98 Oxygen Delivery Fraction of Inspired Oxygen 06/27/24 19:33 06/27/24 19:56 06/27/24 19:58 Temperature Pulse Rate 79 79 Respiratory Rate 33 H Blood Pressure Pulse Oximetry Oxygen Delivery Fraction of Inspired Oxygen 45 06/27/24 19:59 06/27/24 20:00 06/27/24 20:29 Temperature 38.2 C H Pulse Rate 79 72 Respiratory Rate 28 H 32 H Blood Pressure 130/70 Pulse Oximetry 95 95 Oxygen Delivery Mechanical Ventilation Fraction of Inspired Oxygen 45 06/27/24 20:10 06/27/24 20:35 06/27/24 20:00 Temperature Pulse Rate 72 71 78 Respiratory Rate 32 H Blood Pressure Pulse Oximetry 100 Oxygen Delivery Mechanical Ventilation Fraction of Inspired Oxygen 45 06/27/24 22:00 06/27/24 22:00 06/27/24 22:18 Temperature 38.6 C H 38.6 C H Pulse Rate 71 71 Respiratory Rate 35 H Blood Pressure 132/63 Pulse Oximetry 96 Oxygen Delivery Fraction of Inspired Oxygen 06/27/24 23:15 06/27/24 23:18 06/27/24 23:22 Temperature 38.8 C H Pulse Rate Respiratory Rate Blood Pressure Pulse Oximetry 95 Oxygen Delivery Mechanical Ventilation Fraction of Inspired Oxygen 45 45 06/27/24 23:05 06/27/24 20:00 06/27/24 21:00 Temperature Pulse Rate 60 79 69 Respiratory Rate 33 H 32 H Blood Pressure Pulse Oximetry 96 Oxygen Delivery Mechanical Ventilation Fraction of Inspired Oxygen 45 06/27/24 22:00 06/27/24 23:00 06/28/24 00:00 Temperature Pulse Rate 68 67 70 Respiratory Rate 30 H 39 H 40 H Blood Pressure Pulse Oximetry Oxygen Delivery Fraction of Inspired Oxygen 06/28/24 00:00 06/28/24 00:00 06/28/24 00:20 Temperature 38.8 C H 38.8 C H Pulse Rate 70 70 Respiratory Rate 40 H Blood Pressure 112/53 L Pulse Oximetry 94 Oxygen Delivery Fraction of Inspired Oxygen 06/28/24 04:05 06/28/24 01:00 06/28/24 02:00 Temperature 39.1 C H Pulse Rate 82 88 Respiratory Rate 44 H 36 H Blood Pressure Pulse Oximetry Oxygen Delivery Fraction of Inspired Oxygen 06/28/24 02:00 06/28/24 03:00 06/28/24 04:00 Temperature Pulse Rate 88 70 63 Respiratory Rate 36 H 33 H 28 H Blood Pressure Pulse Oximetry Oxygen Delivery Fraction of Inspired Oxygen 06/28/24 02:10 06/28/24 02:20 06/28/24 02:28 Temperature Pulse Rate 65 65 62 Respiratory Rate 30 H 28 H Blood Pressure Pulse Oximetry 94 Oxygen Delivery Mechanical Ventilation Fraction of Inspired Oxygen 40 06/28/24 05:10 06/28/24 05:10 06/28/24 04:42 Temperature Pulse Rate 60 60 88 Respiratory Rate 25 H 27 H 37 H Blood Pressure Pulse Oximetry 94 Oxygen Delivery Fraction of Inspired Oxygen 06/28/24 02:00 06/28/24 04:00 06/28/24 02:00 Temperature 38.8 C H 39.2 C H Pulse Rate 88 63 88 Respiratory Rate 36 H 28 H Blood Pressure 120/57 L 113/54 L Pulse Oximetry 96 95 Oxygen Delivery Fraction of Inspired Oxygen 06/28/24 04:00 06/28/24 02:30 06/28/24 04:00 Temperature 39.0 C H Pulse Rate 63 Respiratory Rate Blood Pressure Pulse Oximetry 97 Oxygen Delivery Mechanical Ventilation Fraction of Inspired Oxygen 40 06/28/24 05:00 06/28/24 05:05 06/28/24 05:50 Temperature 38.8 C H Pulse Rate 60 60 Respiratory Rate 26 H Blood Pressure Pulse Oximetry 98 Oxygen Delivery Mechanical Ventilation Fraction of Inspired Oxygen 40 06/28/24 04:00 06/28/24 06:00 06/28/24 06:00 Temperature Pulse Rate 60 60 Respiratory Rate 24 H Blood Pressure 112/51 L Pulse Oximetry 96 Oxygen Delivery Fraction of Inspired Oxygen 45 06/28/24 06:53 06/28/24 08:00 06/28/24 08:09 Temperature Pulse Rate 61 61 Respiratory Rate 26 H 30 H Blood Pressure Pulse Oximetry Oxygen Delivery Fraction of Inspired Oxygen 50 06/28/24 08:09 06/28/24 08:00 06/28/24 08:22 Temperature 38.6 C H Pulse Rate 60 60 60 Respiratory Rate 25 H 28 H Blood Pressure 117/54 L Pulse Oximetry 92 92 Oxygen Delivery Mechanical Ventilation Fraction of Inspired Oxygen 50 06/28/24 09:13 Temperature Pulse Rate 60 Respiratory Rate Blood Pressure Pulse Oximetry Oxygen Delivery Fraction of Inspired Oxygen Intake/Output Intake/Output: Intake & Output 06/25/24 06/26/24 06/27/24 06/28/24 23:59 23:59 23:59 23:59 Intake Total 1280.8 1160 1336.6 561.3 Output Total 2815 335 4605 130 Balance -1534.2 825 -3268.4 431.3 Meds/Results Medications: Active Medications Generic Name Dose Route Start Last Admin Trade Name Freq PRN Reason Stop Dose Admin Acetaminophen 650 mg 06/07/24 21:53 06/28/24 04:05 Acetaminophen Elixir 325 Mg/10.15 Ml Udc PO 650 mg Q6H PRN Administration Mild Pain (1-3) or Fever Albuterol/Ipratropium 3 ml 06/05/24 11:15 06/28/24 08:08 Ipratropium 0.5 Mg/Albuterol Sulfate 2.5 Mg Ampul.Neb 3 Ml INHALATION 3 ml Q6HRT JOHN Administration Amiodarone HCl 200 mg 06/02/24 21:00 06/28/24 09:13 Amiodarone Hcl 200 Mg Tablet PO 200 mg Q12HR JOHN Administration Apixaban 5 mg 06/27/24 09:00 06/28/24 09:13 Apixaban 5 Mg Tablet FEED TUBE 5 mg Q12HR JOHN Administration Dextrose 12.5 gm 06/05/24 11:46 Dextrose 50% 25 Gm/50 Ml Syringe IV PUSH PRN PRN Hypoglycemia Protocol Epoetin Shayan-epbx 10,000 units 06/18/24 09:00 06/27/24 10:25 Epoetin Shayan-Epbx 10,000 Units/Ml Vial IV PUSH 10,000 units MOWEFR@09 JOHN Administration Fidaxomicin 200 mg 06/24/24 01:35 [employer]IO INTERFERENCE SUPERVISOR 06/28/24 09:13 Fidaxomicin 200 Mg Tablet PO 200 mg Q12HR JOHN Administration Glucagon 1 mg 06/05/24 11:46 Glucagon For Inj 1 Mg Vial IM PRN PRN Hypoglycemia Protocol Glucose 15 gm 06/05/24 11:46 Glucose Oral Gel 15 Gm Of Glucse In 37.5 Gm Tube PO PRN PRN Hypoglycemia Protocol Dextrose 1,000 mls @ 100 mls/hr 06/05/24 11:46 Dextrose 5% 1,000 Ml IVPB PRN PRN Hypoglycemia Protocol Albumin Human 50 mls @ 999 mls/hr 06/08/24 09:50 06/12/24 11:39 Albutein IVPB 07/08/24 09:49 Infused Q10M PRN Infusion HYPOTENSION Meropenem 1 gm in 100 mls @ 200 mls/hr 06/29/24 16:00 IVPB Q24H JOHN Meropenem 1 gm in 100 mls @ 200 mls/hr 06/28/24 10:00 06/28/24 09:14 IVPB 06/28/24 10:29 200 mls/hr ONCE ONE Administration Insulin Aspart 3 - 6 units 06/05/24 12:00 06/28/24 06:08 Insulin Aspart (*Bkc) 100 Units/Ml SUB-Q Not Given Q6HR JOHN Protocol Linezolid 600 mg 06/27/24 21:00 06/28/24 09:13 Linezolid 600 Mg Tablet FEED TUBE 07/01/24 09:01 600 mg Q12HR JOHN Administration Metoclopramide HCl 10 mg 06/27/24 08:30 06/28/24 09:13 Metoclopramide Hcl 10 Mg/10 Ml Soln Udc FEED TUBE 10 mg Q6H JOHN Administration Midodrine 10 mg 06/17/24 22:00 06/28/24 06:09 Midodrine Hcl 10 Mg Tablet PO 10 mg Q8H JOHN Administration Morphine Sulfate 2 mg 06/27/24 12:55 06/28/24 02:35 Morphine Sulfate (*Crx) 2 Mg/Ml Inj IV PUSH 2 mg Q3H PRN Administration Pain Rated 7-10 Multi-Ingred Cream/Lotion/Oil/Oint 1 applic 06/05/24 09:00 06/28/24 09:14 Mineral Oil/White Petrolatum Ointment EACH EYE Not Given Q12HR [facility] Ondansetron HCl 4 mg 06/11/24 07:47 06/28/24 04:04 Ondansetron Inj 4 Mg/2 Ml Vial IV PUSH 4 mg Q6H PRN Administration Nausea And Vomiting Pantoprazole Sodium 40 mg 06/06/24 09:00 06/28/24 09:14 Pantoprazole Sodium Iv 40 Mg Vial IV PUSH 40 mg Q12HR JOHN Administration Quetiapine Fumarate 25 mg 06/28/24 09:00 06/28/24 09:13 Quetiapine Fumarate 25 Mg Tablet FEED TUBE 25 mg Q12HR [facility] Administration Umeclidinium [place] 1 puff 06/03/24 08:00 06/14/24 12:38 Umeclidinium [place] 62.5 Mcg Ellipta INHALATION Not Given DAILYRT [facility] Radiology Results: ITS Impressions Renal Ultrasound 06/04/24 15:06 IMPRESSION: 1. Normal kidneys. No hydronephrosis. Abdomen Ultrasound 06/10/24 14:47 IMPRESSION: Fat infiltration. Enlarged left lobe of the liver. Slightly thickened wall of the gallbladder. Trace of ascites. Otherwise, normal Limited ultrasound of the abdomen. Abdomen X-Ray 06/16/24 13:54 IMPRESSION: 1. Nasogastric tube tip in the stomach. 2. Nonobstructive bowel gas pattern. 3. Diffuse lung disease, consistent with pulmonary edema versus pneumonia. 4. Cardiomegaly. Venous Doppler Study 06/17/24 11:49 IMPRESSION: 1. No deep venous thrombosis. Central Venous Line 06/22/24 14:36 IMPRESSION: 1. Right internal jugular central venous catheter tip at the caudal superior vena cava. Chest/Abdomen/Pelvis CT 06/24/24 21:07 IMPRESSION: Diffuse patchy bilateral pulmonary ground glass infiltrates suggesting pneumonitis, less likely small airways disease Prominent bilateral lower lobe atelectasis with air bronchograms Cardiomegaly Splenomegaly Chest X-Ray 06/28/24 06:32 Impression: Support tubes, as above. Central congestive change with mild interstitial edema and probable minimal left pleural effusion. Labs Labs: Laboratory Results - last 24 hr 06/27/24 06/27/24 06/27/24 12:35 17:43 20:00 WBC RBC Hgb Hct MCV MCH MCHC RDW Plt Count MPV Sodium Potassium Chloride Carbon Dioxide Anion Gap BUN Creatinine Estim Creat Clear Calc Estimated GFR Glucose POC Capillary Glucose 130 H 114 H Calcium Magnesium Total Bilirubin AST ALT Alkaline Phosphatase Total Creatine Kinase 28 L Total Protein Albumin 06/27/24 06/28/24 23:16 04:08 WBC 14.1 H RBC 3.94 L Hgb 10.5 L Hct 35.8 L MCV 90.9 D MCH 26.6 MCHC 29.3 L RDW 20.4 H Plt Count 347 MPV 11.2 H Sodium 133 L Potassium 4.2 Chloride 96 L Carbon Dioxide 22 Anion Gap 15 H BUN 55 H D Creatinine 4.30 H Estim Creat Clear Calc 20 Estimated GFR 11 L Glucose 164 H POC Capillary Glucose 155 H Calcium 9.9 Magnesium 2.5 H Total Bilirubin 2.4 H AST 209 H ALT 24 Alkaline Phosphatase 302 H Total Creatine Kinase Total Protein 8.0 Albumin 3.6 Quality VTE Prophylaxis VTE prophylaxis: pharmacologic ordered
--- NOTE | 2024-06-28 10:54 | PCFNICU ---
ICU Rounding Note: Pt current nutrition is Nepro at 50 ml/hr. Last recorded weight is 143.7 kg, stable. Bowel Motility: FMS Labs Reviewed: BUN 55, Cr 4.3, Glu 164, Mg 2.5 Meds Noted: Zofran, Reglan, Protonix, Dificid. Skin: WNL Additional Notes: Patient remains on mechanical vent. Tube feedings are being tolerating of Nepro at 50 ml/hr. Banatrol Plus TID for stool bulking. Nursing reports less output. No emesis today. High fevers reported overnight. Dialysis 06/27 removed 4 Liters. Agree with diet orders. Following daily in ICU rounds. Will monitor weight, labs, skin, meds, diet orders every Tuesday and Tuesday.
--- NOTE | 2024-06-28 10:57 | PCPTNOTE ---
attempted PT eval, pt did not respond to voice and tactile stimuli, per RN pt has been asleep all day and not responding, will follow
[2024-06-28 11:44] LABS: Glucose Point of Care 147 mg/dl (65-105)
--- NOTE | 2024-06-28 12:28 | P.PNNP_ITS ---
Progress Note: A&P Assessment and Plan (1) JOVI (acute kidney injury): Code(s): N17.9 - Acute kidney failure, unspecified Status: Acute Assessment and Plan: * no real significant improvement to date * normal creatinine ~ 1 month ago * admitted with a creatinine of 2.1mg/dl with ongoing worsening noted * due to multifactorial ATN: * hemodynamic instability/shock * sepsis * infection (UTI +/- pneumonia) -- although culture negative to date * hypoxia * other? * evaluation to date noted: * renal ultrasound negative for obstruction * urine eosinophils negative * urine electrolytes pre-renal (in spite of evidence of volume overload) * CPK low * moderate proteinuria (~ 600mg) * UA with blood and protein (and negative urine culture) * has been dialysis dependent since 06/05 * s/p daily dialysis alternating with DUF (except Sundays) to facilitate euvolemia * HD tomorrow and continue Tue/Tue/Tuesday schedule * s/p tunneled HD catheter placement on 06/22/24 * follow repeat labs and UOP to assess for potential renal recovery (2) Acute respiratory failure: Code(s): J96.00 - Acute respiratory failure, unspecified whether with hypoxia or hypercapnia Status: Acute Assessment and Plan: * intubated on 06/05 for impending respiratory failure * failed BiPAP therapy * ABG with noted hypercapnea and hypoxia * secondary to pulmonary edema, diffuse bilateral infiltrates and ARDS * on bronchodilators * weaned off steroids * continue dialysis/dry ultrafiltration for fluid removal * s/p tracheostomy and G-tube placement on 06/25 * ventilator weaning as tolerated (3) Septic shock: Code(s): A41.9 - Sepsis, unspecified organism; R65.21 - Severe sepsis with septic shock Status: Acute Assessment and Plan: * initially thought to be secondary to UTI and pneumonia * was on levophed therapy to maintain MAP * weaned off and being used PRN * Echo results noted * continue midodrine * follow repeat culture data * resumed on antibiotics due to fevers * follow trend of hemodynamics (4) Pulmonary edema: Code(s): J81.1 - Chronic pulmonary edema Status: Acute Assessment and Plan: * contributing to #2 * secondary to JOVI/ARF but ARDS an issues as well * failed diuretic therapy * HD/DUF for fluid removal * almost 22L negative since admission (5) C. difficile diarrhea: Code(s): A04.72 - Enterocolitis due to Clostridium difficile, not specified as recurrent Status: Acute Assessment and Plan: * currently on Dificid and IV Flagyl * CT abdomen pelvis results noted (6) Afib: Code(s): I48.91 - Unspecified atrial fibrillation Status: Acute Assessment and Plan: * rate control strategy * on amiodarone and Eliquis * anticoagulation on hold for procedures (7) Anemia: Code(s): D64.9 - Anemia, unspecified Status: Acute Assessment and Plan: * related to JOVI and acute/critical illness * KIRILL with HD * follow trend of H/H (8) Liver cirrhosis secondary to HOFFMANN: Code(s): K75.81 - Nonalcoholic steatohepatitis (HOFFMANN); K74.60 - Unspecified cirrhosis of liver Status: Acute Assessment and Plan: * known history * normal liver by recent imaging * noted elevations in AST/ALT that have been up and down * fluctuating LFTS thought to be more related to congestion/volume overload * continue to follow (9) Type 2 diabetes mellitus: Code(s): E11.9 - Type 2 diabetes mellitus without complications Status: Acute Assessment and Plan: * follow accu-cheks * glycemic control 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 Subjective Date/time seen: 06/28/24 12:28 Interval history: Follow-up for acute kidney injury/acute renal failure with dialysis dependence. Tolerated dialysis treatment yesterday without any issue or problems; poor urine output noted; remains on mechanical ventilator support via tracheostomy; fluc tuating stool output noted at this time; continues to have ongoing fevers with a Tmax of 102.5?. Exam Narrative: General: large female on mechanical ventilation via tracheostomy Heart: normal S1 and S2; no rub Lungs: coarse breath sounds; decreased at bases Abdomen: obese but soft, nontender, nondistended, positive bowel sounds Extremities: no cyanosis or clubbing; trace - 1+ edema Skin: no rash Objective Data Vital Signs Vital Signs: Vital Signs Temp Pulse Resp BP Pulse Ox O2 Del Method FiO2 06/28/24 12:00 102.0 F H 70 29 H 123/60 92 Mechanical Ventilation 50 06/28/24 11:41 102 F H 06/28/24 10:49 62 92 Mechanical Ventilation 50 06/28/24 08:00 92 Mechanical Ventilation 50 06/28/24 08:10 50 06/28/24 10:00 62 06/28/24 08:00 60 06/28/24 10:00 101.6 F H 62 31 H 108/50 L 92 06/28/24 09:13 60 06/28/24 08:22 60 28 H 06/28/24 08:00 101.4 F H 60 25 H 117/54 L 92 06/28/24 08:09 60 92 Mechanical Ventilation 50 06/28/24 08:09 61 30 H 06/28/24 08:00 61 26 H 06/28/24 06:53 50 06/28/24 06:00 60 24 H 112/51 L 96 06/28/24 06:00 60 06/28/24 04:00 45 06/28/24 05:50 60 26 H 06/28/24 05:05 60 98 Mechanical Ventilation 40 06/28/24 05:00 102 F H 06/28/24 04:00 97 Mechanical Ventilation 40 06/28/24 02:30 102.2 F H 06/28/24 04:00 63 06/28/24 02:00 88 06/28/24 04:00 102.5 F H 63 28 H 113/54 L 95 06/28/24 02:00 102 F H 88 36 H 120/57 L 96 06/28/24 04:42 88 37 H 94 06/28/24 05:10 60 27 H 06/28/24 05:10 60 25 H 06/28/24 02:28 62 28 H 06/28/24 02:20 65 30 H 06/28/24 02:10 65 94 Mechanical Ventilation 40 06/28/24 04:00 63 28 H 06/28/24 03:00 70 33 H 06/28/24 02:00 88 36 H 06/28/24 02:00 88 36 H 06/28/24 01:00 82 44 H 06/28/24 04:05 102.4 F H 06/28/24 00:20 102 F H 06/28/24 00:00 102 F H 70 40 H 112/53 L 94 06/28/24 00:00 70 06/28/24 00:00 70 40 H 06/27/24 23:00 67 39 H 06/27/24 22:00 68 30 H 06/27/24 21:00 69 32 H 06/27/24 20:00 79 33 H 06/27/24 23:05 60 96 Mechanical Ventilation 45 06/27/24 23:22 45 06/27/24 23:18 95 Mechanical Ventilation 45 06/27/24 23:15 101.8 F H 06/27/24 22:18 101.5 F H 06/27/24 22:00 101.5 F H 71 35 H 132/63 96 06/27/24 22:00 71 06/27/24 20:00 78 06/27/24 20:35 71 32 H 06/27/24 20:10 72 100 Mechanical Ventilation 45 06/27/24 20:29 72 32 H 06/27/24 20:00 100.8 F H 79 28 H 130/70 95 06/27/24 19:59 95 Mechanical Ventilation 45 06/27/24 19:58 45 06/27/24 19:56 79 33 H 06/27/24 19:33 79 06/27/24 19:00 101.2 F H 80 38 H 133/67 98 06/27/24 18:00 101.3 F H 79 38 H 127/59 L 96 06/27/24 18:00 79 06/27/24 17:44 101.4 F H 06/27/24 17:14 78 95 Mechanical Ventilation 45 06/27/24 16:44 101.7 F H Intake/Output Intake/Output: Intake & Output 06/25/24 06/26/24 06/27/24 06/28/24 23:59 23:59 23:59 23:59 Intake Total 1280.8 1160 1336.6 661.3 Output Total 2815 335 4605 130 Balance -1534.2 825 -3268.4 531.3 Meds/Results Medications: Active Medications Generic Name Dose Route Start Last Admin Trade Name Freq PRN Reason Stop Dose Admin Acetaminophen 650 mg 06/07/24 21:53 06/28/24 11:41 Acetaminophen Elixir 325 Mg/10.15 Ml Udc PO 650 mg Q6H PRN Administration Mild Pain (1-3) or Fever Albuterol/Ipratropium 3 ml 06/05/24 11:15 06/28/24 13:49 Ipratropium 0.5 Mg/Albuterol Sulfate 2.5 Mg Ampul.Neb 3 Ml INHALATION 3 ml Q6HRT JOHN Administration Amiodarone HCl 200 mg 06/02/24 21:00 06/28/24 09:13 Amiodarone Hcl 200 Mg Tablet PO 200 mg Q12HR JOHN Administration Apixaban 5 mg 06/27/24 09:00 06/28/24 09:13 Apixaban 5 Mg Tablet FEED TUBE 5 mg Q12HR JOHN Administration Dextrose 12.5 gm 06/05/24 11:46 Dextrose 50% 25 Gm/50 Ml Syringe IV PUSH PRN PRN Hypoglycemia Protocol Epoetin Shayan-epbx 10,000 units 06/18/24 09:00 06/27/24 10:25 Epoetin Shayan-Epbx 10,000 Units/Ml Vial IV PUSH 10,000 units MOWEFR@09 JOHN Administration Fidaxomicin 200 mg 06/24/24 01:35 LABELING SPECIALIST 06/28/24 09:13 Fidaxomicin 200 Mg Tablet PO 07/03/24 09:01 200 mg Q12HR JOHN Administration Glucagon 1 mg 06/05/24 11:46 Glucagon For Inj 1 Mg Vial IM PRN PRN Hypoglycemia Protocol Glucose 15 gm 06/05/24 11:46 Glucose Oral Gel 15 Gm Of Glucse In 37.5 Gm Tube PO PRN PRN Hypoglycemia Protocol Dextrose 1,000 mls @ 100 mls/hr 06/05/24 11:46 Dextrose 5% 1,000 Ml IVPB PRN PRN Hypoglycemia Protocol Albumin Human 50 mls @ 999 mls/hr 06/08/24 09:50 06/12/24 11:39 Albutein IVPB 07/08/24 09:49 Infused Q10M PRN Infusion HYPOTENSION Meropenem 1 gm in 100 mls @ 200 mls/hr 06/29/24 16:00 IVPB Q24H JOHN Insulin Aspart 3 - 6 units 06/05/24 12:00 06/28/24 11:41 Insulin Aspart (*Bkc) 100 Units/Ml SUB-Q Not Given Q6HR [facility] Protocol Linezolid 600 mg 06/27/24 21:00 06/28/24 09:13 Linezolid 600 Mg Tablet FEED TUBE 07/01/24 09:01 600 mg Q12HR JOHN Administration Metoclopramide HCl 10 mg 06/27/24 08:30 06/28/24 14:13 Metoclopramide Hcl 10 Mg/10 Ml Soln Udc FEED TUBE 10 mg Q6H JOHN Administration Midodrine 10 mg 06/17/24 22:00 06/28/24 14:13 Midodrine Hcl 10 Mg Tablet PO 10 mg Q8H JOHN Administration Morphine Sulfate 2 mg 06/27/24 12:55 06/28/24 14:13 Morphine Sulfate (*Crx) 2 Mg/Ml Inj IV PUSH 2 mg Q3H PRN Administration Pain Rated 7-10 Multi-Ingred Cream/Lotion/Oil/Oint 1 applic 06/05/24 09:00 06/28/24 09:14 Mineral Oil/White Petrolatum Ointment EACH EYE Not Given Q12HR [facility] Ondansetron HCl 4 mg 06/11/24 07:47 06/28/24 04:04 Ondansetron Inj 4 Mg/2 Ml Vial IV PUSH 4 mg Q6H PRN Administration Nausea And Vomiting Pantoprazole Sodium 40 mg 06/06/24 09:00 06/28/24 09:14 Pantoprazole Sodium Iv 40 Mg Vial IV PUSH 40 mg Q12HR [facility] Administration Quetiapine Fumarate 25 mg 06/28/24 09:00 06/28/24 09:13 Quetiapine Fumarate 25 Mg Tablet FEED TUBE 25 mg Q12HR [facility] Administration Umeclidinium [place] 1 puff 06/03/24 08:00 06/14/24 12:38 Umeclidinium [place] 62.5 Mcg Ellipta INHALATION Not Given DAILYRT [facility] Radiology Results: ITS Impressions Renal Ultrasound 06/04/24 15:06 IMPRESSION: 1. Normal kidneys. No hydronephrosis. Abdomen Ultrasound 06/10/24 14:47 IMPRESSION: Fat infiltration. Enlarged left lobe of the liver. Slightly thickened wall of the gallbladder. Trace of ascites. Otherwise, normal Limited ultrasound of the abdomen. Abdomen X-Ray 06/16/24 13:54 IMPRESSION: 1. Nasogastric tube tip in the stomach. 2. Nonobstructive bowel gas pattern. 3. Diffuse lung disease, consistent with pulmonary edema versus pneumonia. 4. Cardiomegaly. Central Venous Line 06/22/24 14:36 IMPRESSION: 1. Right internal jugular central venous catheter tip at the caudal superior vena cava. Chest/Abdomen/Pelvis CT 06/24/24 21:07 IMPRESSION: Diffuse patchy bilateral pulmonary ground glass infiltrates suggesting pneumonitis, less likely small airways disease Prominent bilateral lower lobe atelectasis with air bronchograms Cardiomegaly Splenomegaly Chest X-Ray 06/28/24 06:32 Impression: Support tubes, as above. Central congestive change with mild interstitial edema and probable minimal left pleural effusion. Venous Doppler Study 06/28/24 15:32 IMPRESSION: 1. No deep venous thrombosis. Labs Labs: Laboratory Tests 06/28/24 04:08 06/28/24 04:08 Calcium 9.9 Magnesium 2.5 H Total Bilirubin 2.4 H AST 209 H ALT 24 Alkaline Phosphatase 302 H Total Protein 8.0 Albumin 3.6 Microbiology 06/22/24 22:22 Blood Blood Culture - Final 06/22/24 22:22 Blood Blood Culture - Final
--- NOTE | 2024-06-28 13:59 | PCOTNOTE ---
Received OT orders. Per the RN, pt is not awake or alert and able to participate in therapy eval at this time. Will continue to follow for medical readiness to participate.
--- NOTE | 2024-06-28 14:10 | PM.PNGS ---
Progress Note: A&P Assessment and Plan (1) Acute respiratory failure: Code(s): J96.00 - Acute respiratory failure, unspecified whether with hypoxia or hypercapnia Status: Acute Assessment and Plan: POD3 following open gastrostomy tube placement. No more vomiting since yesterday. Residuals have been okay. Continue tube feeding at goal. Continue daily dressing changes to midline incision. Drainage seems to be decreasing. (2) JOVI (acute kidney injury): Code(s): N17.9 - Acute kidney failure, unspecified Status: Acute Assessment and Plan: Still requiring dialysis (3) Septic shock: Code(s): A41.9 - Sepsis, unspecified organism; R65.21 - Severe sepsis with septic shock Status: Acute (4) Pulmonary edema: Code(s): J81.1 - Chronic pulmonary edema Status: Acute (5) Afib: Code(s): I48.91 - Unspecified atrial fibrillation Status: Acute (6) Anticoagulated by anticoagulation treatment: Code(s): Z79.01 - retirement (current) use of anticoagulants Status: Acute (7) SLE (systemic lupus erythematosus): Code(s): M32.9 - Systemic lupus erythematosus, unspecified Status: Acute (8) Liver cirrhosis secondary to HOFFMANN: Code(s): K75.81 - Nonalcoholic steatohepatitis (HOFFMANN); K74.60 - Unspecified cirrhosis of liver Status: Acute (9) Morbid obesity with BMI of 50.0-59.9, adult: Code(s): E66.01 - Morbid (severe) obesity due to excess calories; Z68.43 - Body mass index [BMI] 50.0-59.9, adult Status: Acute Plan I have discussed the patient's case and plan of care with Dr. Albert. Subjective Subjective Date/Time Seen: 06/28/24 14:10 Interval history: 06/25/24 - Open gastrostomy tube placement, tracheostomy 06/22/24 - Tunneled dialysis catheter, removal of prior temporary hemodialysis catheter Patient seen in the ICU. She is on the ventilator. Nursing reports no residuals when they have been checked over the past 24 hours. No more episodes of vomiting. She continues to be febrile and has a cooling blanket in place. No issues with her dialysis catheter during dialysis yesterday. Exam Const: General: no acute distress Orientation/consciousness: lethargic GI: Inspection: non-distended, incision (Minimal serous drainage, tee intact, no erythema), Pannus present, obesity and other (Gastrostomy tube in place with minimal serous drainage) GI Palp: Yes Soft to palpation and No Guarding due to palpation present (GI) Auscultation: normal bowel sounds Objective Data Vital Signs Vital Signs: Vital Signs - 24 hr 06/27/24 16:00 06/27/24 16:00 06/27/24 16:00 Temperature 101.6 F H Pulse Rate 80 Respiratory Rate 38 H Blood Pressure 121/59 L Pulse Oximetry 96 94 Oxygen Delivery Mechanical Ventilation Fraction of Inspired Oxygen 45 45 06/27/24 16:44 06/27/24 16:00 06/27/24 17:14 Temperature 101.7 F H Pulse Rate 81 78 Respiratory Rate Blood Pressure Pulse Oximetry 95 Oxygen Delivery Mechanical Ventilation Fraction of Inspired Oxygen 45 06/27/24 17:44 06/27/24 18:00 06/27/24 18:00 Temperature 101.4 F H 101.3 F H Pulse Rate 79 79 Respiratory Rate 38 H Blood Pressure 127/59 L Pulse Oximetry 96 Oxygen Delivery Fraction of Inspired Oxygen 06/27/24 19:00 06/27/24 19:33 06/27/24 19:56 Temperature 101.2 F H Pulse Rate 80 79 79 Respiratory Rate 38 H 33 H Blood Pressure 133/67 Pulse Oximetry 98 Oxygen Delivery Fraction of Inspired Oxygen 06/27/24 19:58 06/27/24 19:59 06/27/24 20:00 Temperature 100.8 F H Pulse Rate 79 Respiratory Rate 28 H Blood Pressure 130/70 Pulse Oximetry 95 95 Oxygen Delivery Mechanical Ventilation Fraction of Inspired Oxygen 45 45 06/27/24 20:29 06/27/24 20:10 06/27/24 20:35 Temperature Pulse Rate 72 72 71 Respiratory Rate 32 H 32 H Blood Pressure Pulse Oximetry 100 Oxygen Delivery Mechanical Ventilation Fraction of Inspired Oxygen 45 06/27/24 20:00 06/27/24 22:00 06/27/24 22:00 Temperature 101.5 F H Pulse Rate 78 71 71 Respiratory Rate 35 H Blood Pressure 132/63 Pulse Oximetry 96 Oxygen Delivery Fraction of Inspired Oxygen 06/27/24 22:18 06/27/24 23:15 06/27/24 23:18 Temperature 101.5 F H 101.8 F H Pulse Rate Respiratory Rate Blood Pressure Pulse Oximetry 95 Oxygen Delivery Mechanical Ventilation Fraction of Inspired Oxygen 45 06/27/24 23:22 06/27/24 23:05 06/27/24 20:00 Temperature Pulse Rate 60 79 Respiratory Rate 33 H Blood Pressure Pulse Oximetry 96 Oxygen Delivery Mechanical Ventilation Fraction of Inspired Oxygen 45 45 06/27/24 21:00 06/27/24 22:00 06/27/24 23:00 Temperature Pulse Rate 69 68 67 Respiratory Rate 32 H 30 H 39 H Blood Pressure Pulse Oximetry Oxygen Delivery Fraction of Inspired Oxygen 06/28/24 00:00 06/28/24 00:00 06/28/24 00:00 Temperature 102 F H Pulse Rate 70 70 70 Respiratory Rate 40 H 40 H Blood Pressure 112/53 L Pulse Oximetry 94 Oxygen Delivery Fraction of Inspired Oxygen 06/28/24 00:20 06/28/24 04:05 06/28/24 01:00 Temperature 102 F H 102.4 F H Pulse Rate 82 Respiratory Rate 44 H Blood Pressure Pulse Oximetry Oxygen Delivery Fraction of Inspired Oxygen 06/28/24 02:00 06/28/24 02:00 06/28/24 03:00 Temperature Pulse Rate 88 88 70 Respiratory Rate 36 H 36 H 33 H Blood Pressure Pulse Oximetry Oxygen Delivery Fraction of Inspired Oxygen 06/28/24 04:00 06/28/24 02:10 06/28/24 02:20 Temperature Pulse Rate 63 65 65 Respiratory Rate 28 H 30 H Blood Pressure Pulse Oximetry 94 Oxygen Delivery Mechanical Ventilation Fraction of Inspired Oxygen 40 06/28/24 02:28 06/28/24 05:10 06/28/24 05:10 Temperature Pulse Rate 62 60 60 Respiratory Rate 28 H 25 H 27 H Blood Pressure Pulse Oximetry Oxygen Delivery Fraction of Inspired Oxygen 06/28/24 04:42 06/28/24 02:00 06/28/24 04:00 Temperature 102 F H 102.5 F H Pulse Rate 88 88 63 Respiratory Rate 37 H 36 H 28 H Blood Pressure 120/57 L 113/54 L Pulse Oximetry 94 96 95 Oxygen Delivery Fraction of Inspired Oxygen 06/28/24 02:00 06/28/24 04:00 06/28/24 02:30 Temperature 102.2 F H Pulse Rate 88 63 Respiratory Rate Blood Pressure Pulse Oximetry Oxygen Delivery Fraction of Inspired Oxygen 06/28/24 04:00 06/28/24 05:00 06/28/24 05:05 Temperature 102 F H Pulse Rate 60 Respiratory Rate Blood Pressure Pulse Oximetry 97 98 Oxygen Delivery Mechanical Ventilation Mechanical Ventilation Fraction of Inspired Oxygen 40 40 06/28/24 05:50 06/28/24 04:00 06/28/24 06:00 Temperature Pulse Rate 60 60 Respiratory Rate 26 H Blood Pressure Pulse Oximetry Oxygen Delivery Fraction of Inspired Oxygen 45 06/28/24 06:00 06/28/24 06:53 06/28/24 08:00 Temperature Pulse Rate 60 61 Respiratory Rate 24 H 26 H Blood Pressure 112/51 L Pulse Oximetry 96 Oxygen Delivery Fraction of Inspired Oxygen 50 06/28/24 08:09 06/28/24 08:09 06/28/24 08:00 Temperature 101.4 F H Pulse Rate 61 60 60 Respiratory Rate 30 H 25 H Blood Pressure 117/54 L Pulse Oximetry 92 92 Oxygen Delivery Mechanical Ventilation Fraction of Inspired Oxygen 50 06/28/24 08:22 06/28/24 09:13 06/28/24 10:00 Temperature 101.6 F H Pulse Rate 60 60 62 Respiratory Rate 28 H 31 H Blood Pressure 108/50 L Pulse Oximetry 92 Oxygen Delivery Fraction of Inspired Oxygen 06/28/24 08:00 06/28/24 10:00 06/28/24 08:10 Temperature Pulse Rate 60 62 Respiratory Rate Blood Pressure Pulse Oximetry Oxygen Delivery Fraction of Inspired Oxygen 50 06/28/24 08:00 06/28/24 10:49 06/28/24 11:41 Temperature 102 F H Pulse Rate 62 Respiratory Rate Blood Pressure Pulse Oximetry 92 92 Oxygen Delivery Mechanical Ventilation Mechanical Ventilation Fraction of Inspired Oxygen 50 50 06/28/24 12:00 06/28/24 12:00 06/28/24 12:00 Temperature Pulse Rate 69 Respiratory Rate Blood Pressure Pulse Oximetry 92 Oxygen Delivery Mechanical Ventilation Fraction of Inspired Oxygen 50 50 06/28/24 12:00 06/28/24 13:50 06/28/24 13:54 Temperature 102.0 F H Pulse Rate 70 71 71 Respiratory Rate 29 H 28 H Blood Pressure 123/60 Pulse Oximetry 92 97 Oxygen Delivery Mechanical Ventilation Fraction of Inspired Oxygen 50 06/28/24 14:00 06/28/24 14:00 06/28/24 12:41 Temperature 101.8 F H 101.8 F H Pulse Rate 71 72 Respiratory Rate 30 H Blood Pressure 127/62 Pulse Oximetry 92 Oxygen Delivery Fraction of Inspired Oxygen Intake/Output Intake/Output: Intake & Output 06/25/24 06/26/24 06/27/24 06/28/24 23:59 23:59 23:59 23:59 Intake Total 1280.8 1160 1336.6 661.3 Output Total 2815 335 4605 130 Balance -1534.2 825 -3268.4 531.3 Meds/Results Medications: Active Medications Generic Name Dose Route Start Last Admin Trade Name Freq PRN Reason Stop Dose Admin Acetaminophen 650 mg 06/07/24 21:53 06/28/24 11:41 Acetaminophen Elixir 325 Mg/10.15 Ml Udc PO 650 mg Q6H PRN Administration Mild Pain (1-3) or Fever Albuterol/Ipratropium 3 ml 06/05/24 11:15 06/28/24 13:49 Ipratropium 0.5 Mg/Albuterol Sulfate 2.5 Mg Ampul.Neb 3 Ml INHALATION 3 ml Q6HRT JOHN Administration Amiodarone HCl 200 mg 06/02/24 21:00 06/28/24 09:13 Amiodarone Hcl 200 Mg Tablet PO 200 mg Q12HR JOHN Administration Apixaban 5 mg 06/27/24 09:00 06/28/24 09:13 Apixaban 5 Mg Tablet FEED TUBE 5 mg Q12HR JOHN Administration Dextrose 12.5 gm 06/05/24 11:46 Dextrose 50% 25 Gm/50 Ml Syringe IV PUSH PRN PRN Hypoglycemia Protocol Epoetin Shayan-epbx 10,000 units 06/18/24 09:00 06/27/24 10:25 Epoetin Shayan-Epbx 10,000 Units/Ml Vial IV PUSH 10,000 units MOWEFR@09 JOHN Administration Fidaxomicin 200 mg 06/24/24 01:35 [employer] 06/28/24 09:13 Fidaxomicin 200 Mg Tablet PO 07/03/24 09:01 200 mg Q12HR JOHN Administration Glucagon 1 mg 06/05/24 11:46 Glucagon For Inj 1 Mg Vial IM PRN PRN Hypoglycemia Protocol Glucose 15 gm 06/05/24 11:46 Glucose Oral Gel 15 Gm Of Glucse In 37.5 Gm Tube PO PRN PRN Hypoglycemia Protocol Dextrose 1,000 mls @ 100 mls/hr 06/05/24 11:46 Dextrose 5% 1,000 Ml IVPB PRN PRN Hypoglycemia Protocol Albumin Human 50 mls @ 999 mls/hr 06/08/24 09:50 06/12/24 11:39 Albutein IVPB 07/08/24 09:49 Infused Q10M PRN Infusion HYPOTENSION Meropenem 1 gm in 100 mls @ 200 mls/hr 06/29/24 16:00 IVPB Q24H JOHN Insulin Aspart 3 - 6 units 06/05/24 12:00 06/28/24 11:41 Insulin Aspart (*Bkc) 100 Units/Ml SUB-Q Not Given Q6HR [facility] Protocol Linezolid 600 mg 06/27/24 21:00 06/28/24 09:13 Linezolid 600 Mg Tablet FEED TUBE 07/01/24 09:01 600 mg Q12HR JOHN Administration Metoclopramide HCl 10 mg 06/27/24 08:30 06/28/24 09:13 Metoclopramide Hcl 10 Mg/10 Ml Soln Udc FEED TUBE 10 mg Q6H JOHN Administration Midodrine 10 mg 06/17/24 22:00 06/28/24 06:09 Midodrine Hcl 10 Mg Tablet PO 10 mg Q8H JOHN Administration Morphine Sulfate 2 mg 06/27/24 12:55 06/28/24 02:35 Morphine Sulfate (*Crx) 2 Mg/Ml Inj IV PUSH 2 mg Q3H PRN Administration Pain Rated 7-10 Multi-Ingred Cream/Lotion/Oil/Oint 1 applic 06/05/24 09:00 06/28/24 09:14 Mineral Oil/White Petrolatum Ointment EACH EYE Not Given Q12HR [facility] Ondansetron HCl 4 mg 06/11/24 07:47 06/28/24 04:04 Ondansetron Inj 4 Mg/2 Ml Vial IV PUSH 4 mg Q6H PRN Administration Nausea And Vomiting Pantoprazole Sodium 40 mg 06/06/24 09:00 06/28/24 09:14 Pantoprazole Sodium Iv 40 Mg Vial IV PUSH 40 mg Q12HR JOHN Administration Quetiapine Fumarate 25 mg 06/28/24 09:00 06/28/24 09:13 Quetiapine Fumarate 25 Mg Tablet FEED TUBE 25 mg Q12HR JOHN Administration Umeclidinium [place] 1 puff 06/03/24 08:00 06/14/24 12:38 Umeclidinium [place] 62.5 Mcg Ellipta INHALATION Not Given DAILYRT [facility] Radiology Results: ITS Impressions Renal Ultrasound 06/04/24 15:06 IMPRESSION: 1. Normal kidneys. No hydronephrosis. Abdomen Ultrasound 06/10/24 14:47 IMPRESSION: Fat infiltration. Enlarged left lobe of the liver. Slightly thickened wall of the gallbladder. Trace of ascites. Otherwise, normal Limited ultrasound of the abdomen. Abdomen X-Ray 06/16/24 13:54 IMPRESSION: 1. Nasogastric tube tip in the stomach. 2. Nonobstructive bowel gas pattern. 3. Diffuse lung disease, consistent with pulmonary edema versus pneumonia. 4. Cardiomegaly. Venous Doppler Study 06/17/24 11:49 IMPRESSION: 1. No deep venous thrombosis. Central Venous Line 06/22/24 14:36 IMPRESSION: 1. Right internal jugular central venous catheter tip at the caudal superior vena cava. Chest/Abdomen/Pelvis CT 06/24/24 21:07 IMPRESSION: Diffuse patchy bilateral pulmonary ground glass infiltrates suggesting pneumonitis, less likely small airways disease Prominent bilateral lower lobe atelectasis with air bronchograms Cardiomegaly Splenomegaly Chest X-Ray 06/28/24 06:32 Impression: Support tubes, as above. Central congestive change with mild interstitial edema and probable minimal left pleural effusion. Labs Labs: Laboratory Results - last 24 hr 06/27/24 06/27/24 06/27/24 17:43 20:00 23:16 WBC RBC Hgb Hct MCV MCH MCHC RDW Plt Count MPV Sodium Potassium Chloride Carbon Dioxide Anion Gap BUN Creatinine Estim Creat Clear Calc Estimated GFR Glucose POC Capillary Glucose 114 H 155 H Calcium Magnesium Total Bilirubin AST ALT Alkaline Phosphatase Total Creatine Kinase 28 L Total Protein Albumin 06/28/24 06/28/24 04:08 11:35 WBC 14.1 H RBC 3.94 L Hgb 10.5 L Hct 35.8 L MCV 90.9 D MCH 26.6 MCHC 29.3 L RDW 20.4 H Plt Count 347 MPV 11.2 H Sodium 133 L Potassium 4.2 Chloride 96 L Carbon Dioxide 22 Anion Gap 15 H BUN 55 H D Creatinine 4.30 H Estim Creat Clear Calc 20 Estimated GFR 11 L Glucose 164 H POC Capillary Glucose 147 H Calcium 9.9 Magnesium 2.5 H Total Bilirubin 2.4 H AST 209 H ALT 24 Alkaline Phosphatase 302 H Total Creatine Kinase Total Protein 8.0 Albumin 3.6
--- NOTE | 2024-06-28 16:23 | P.PNIM_ITS ---
Progress Note: A&P Assessment and Plan (1) Acute respiratory failure: Code(s): J96.00 - Acute respiratory failure, unspecified whether with hypoxia or hypercapnia Status: Acute Assessment and Plan: Patient originally admitted for difficulty voiding. Patient developed HoTN and hypoxia on 06/04 that worsened overnight. ABG showing 7.33/58/66.5 on HFNC. Patient brought to the ICU in the early childhood coordinator hours of 06/05. She had increasing O2 requirements. CXR showed bilateral diffuse pulmonary infiltrates/pulmonary edema. Respiratory failure related to pulmonary edema, pneumonia and/or ARDS Patient was placed on BiPAP but ultimately intubated on 06/05/24. Despite daily HD, CXR continued to show edema vs PNA. CT Ch/A/P showing diffuse disease consider ARDS but unable to tell until she is euvolemic. CT Chest 06/24 showing diffuse patchy bilateral pulmonary ground glass infiltrates PEG, Trach were discussed and family agreed. PEG per endoscopy unlikely given her hepatomegaly and required surgical appr oac. PEG and Trach placed 06/25 CXR today showing central congestive changes with mild edema. Upper and Lower doppler negative of DVT. Having tachypnea. Consider PE but felt less likely since on Eliquis. Consider pain or anxiety. Continue dialysis for fluid removal per nephrology. Wean vent as tolerated. Appreciate drainlayer input (2) Septic shock: Code(s): A41.9 - Sepsis, unspecified organism; R65.21 - Severe sepsis with septic shock Status: Acute Assessment and Plan: Patient was HoTN in the IMU and transferred to the ICU. Septic shock possibly related to UTI, pneumonia, bacteremia. Rt IJ central line was placed and Levophed started. She received fluids, albumin and midodrine BCx and UCx 06/02 negative. BCx 06/06 grew EColi and Staph Epidermidis. EColi was pansensitive. UCx 06/06 negative. Sputum Cx 06/07 growing yeast. BCx 06/08 negative Patient was on vancomycin and cefepime which were continued. Fluconazole was discontinued given her renal dysfunction Stress dose steroids were started but are off now Cause of bacteremia probably urinary source given UA results despite UCx being negative. Completed a course and was off all abx since 06/12. Off [employer]IST since 06/06 and eventually weaned off Levophed. Persistent fevers. 06/17 LE venous doppler negative for DVT. CT Ch/A/P showing diffuse lung disease, consider PNA but otherwise no obvious source for fever. Increased WBC in the 11-15K range CT Ch/A/P 06/24 showing diffuse patchy bilateral pulmonry ground glass infiltrates. BCx 06/22 NGTD. Sputum Cx 06/23 Yeast. UCx 06/23 growing 50-100K VRE. Patient with diarrhea and now CDiff positive. Currently on Linezolid, Cefepime and Dificid. Changing Cefepime to Meropenem to cover ESBL Monitor fever curve (3) JOVI (acute kidney injury): Code(s): N17.9 - Acute kidney failure, unspecified Status: Acute Assessment and Plan: Baseline Cr normal in April. Cr 2.1 on admission and has worsened JOVI related to shock, sepsis, UTI/pneumonia, hypoxia, SLE flare and/or CHF. TCK levels are normal. Ueos negative. Urine lytes c/w prerenal picture but patie nt seems to be volume overloaded Treated with IV fluids and albumin but renal function worsening and HD recommended. [employer] consulted and dialysis catheter was placed 06/05 in the right IJ and exchanged for the central line HD daily with removal of anywhere from 2.9-4L per day and was getting HD daily Cumulative fluid balance of -24L. HD now down to M-W-F Still appears to be fluid overloaded but much, much improved. Tunnelled HD catheter placed 06/22. HD per nephrology recommendations. (4) C. difficile diarrhea: Code(s): A04.72 - Enterocolitis due to Clostridium difficile, not specified as recurrent Status: Acute Assessment and Plan: As above. CT abdomen pelvis reviewed and shows no colon dilation Diarrhea persistent but is on tube feedings Continue Dificid. (5) Pulmonary edema: Code(s): J81.1 - Chronic pulmonary edema Status: Acute Assessment and Plan: CT chest (06/04) showing diffuse lung disease c/w PNA vs pulmonary edema vs ARDS. COVID, RSV and influenza PCR negative Echo showing normal LV size and fxn (EF 65-70%), Grade I diastolic dysfxn, RV enlargement with normal fxn, moderate bi-atrial enlargement and mild-mod TR. Pulmonary edema likely related to diastolic CHF, PNA, JOVI, ARDS. She did not respond to Bumex so HD had to be started to improve fluid status CT Chest 06/24 showing: diffuse patchy bilateral pulmonary ground glass infiltrates. Control fluid status with HD. CXR as above (6) Type 2 diabetes mellitus: Code(s): E11.9 - Type 2 diabetes mellitus without complications Status: Acute Assessment and Plan: A1c 5.7. The patient's blood glucose was reviewed on 06/28 Glucose remains reasonably well controlled. Continue AccuCheks covering with sliding scale. Hypoglycemia protocol available as needed. Continue to monitor (7) Afib: Code(s): I48.91 - Unspecified atrial fibrillation Status: Acute Assessment and Plan: HR well controlled and tele showing normal sinus. Flecainide stopped. Continue amiodarone and Eliquis (8) SLE (systemic lupus erythematosus): Code(s): M32.9 - Systemic lupus erythematosus, unspecified Status: Acute Assessment and Plan: Consider SLE flare causing her JOVI but felt less likely. dsDNA negative and C3/C4 normal. ANCA and anti-GBM negative Was started on stress dose steroids but now off Nephrology following. (9) Liver cirrhosis secondary to HOFFMANN: Code(s): K75.81 - Nonalcoholic steatohepatitis (HOFFMANN); K74.60 - Unspecified cirrhosis of liver Status: Acute Assessment and Plan: Patient has a hx of liver cirrhosis. CT abd without contrast shows normal liver but moderate volume of ascites and body wall edema consistent with her fluid overload. RUQ ultrasound 06/10 showing fat infiltration, enlarged left lobe of the liver and slightly thickened wall of the gallbladder. Trace ascites. The liver does cross the midline making GTube placement near impossible Mild elevation in AST/ALT with AST higher and ALT normal. TCK normal Hepatitis panel is negative [place] elevated LFTs related to congestion. Continue to monitor (10) Pancreatitis: Code(s): K85.90 - Acute pancreatitis without necrosis or infection, unspecified Status: Acute Assessment and Plan: Lipase elevated to 478 on 06/23. Had n/v CT abdomen pelvis unremarkable Continue tube feeds and monitor closely. Reglan added. Repeat Lipase (11) Morbid obesity with BMI of 50.0-59.9, adult: Code(s): E66.01 - Morbid (severe) obesity due to excess calories; Z68.43 - Body mass index [BMI] 50.0-59.9, adult Status: Acute Assessment and Plan: Once extubated she will need lifestyle changes Plan DVT prophylaxis: Eliqucristo Code Status: Full code Subjective Date/time seen: 06/28/24 16:23 Interval history: 54yo female with AFib on anticoagulation, PM and DM here for difficulty voiding. Patient had worsening respiratory status and hypotension despite ongoing therapy and was transferred to the ICU in the early childhood coordinator hours of 06/05. Central line was placed and started on pressor therapy. She was intubated later that morning. Precedex off. HD with 4L off yesterday. Stil lwith Temp to 102. Tolerating TF. Increased stool output yesterday but slowed overnight. Did also become more tachypneic without clear etiology. Review of Systems Review of Systems: ROS unobtainable: Yes unobtainable due to endotracheal tube Exam Narrative: Tm 102.0 101.0 135/72 79 30 98% MV Gen - intubated via trach Neck - Rt tunneled HD catheter, trach secured and vent in place Chest - breath sounds are less coarse. CV - RRR S1/S2. Tele showing no significant dysrhythmias Abd - soft, morbidly obese, improved abd wall edema. Peg tube dsg clean and dry - Lai secured with scant amount of dark yellow urine in the bag. Fecal cont system in place Ext - trace LE pitting pedal edema. 2+ DP pulses Neuro - arouses easily. Skin - Warm and dry Objective Data Vital Signs Vital Signs: Vital Signs - 24 hr 06/27/24 16:44 06/27/24 17:14 06/27/24 17:44 Temperature 101.7 F H 101.4 F H Pulse Rate 78 Respiratory Rate Blood Pressure Pulse Oximetry 95 Oxygen Delivery Mechanical Ventilation Fraction of Inspired Oxygen 45 06/27/24 18:00 06/27/24 18:00 06/27/24 19:00 Temperature 101.3 F H 101.2 F H Pulse Rate 79 79 80 Respiratory Rate 38 H 38 H Blood Pressure 127/59 L 133/67 Pulse Oximetry 96 98 Oxygen Delivery Fraction of Inspired Oxygen 06/27/24 19:33 06/27/24 19:56 06/27/24 19:58 Temperature Pulse Rate 79 79 Respiratory Rate 33 H Blood Pressure Pulse Oximetry Oxygen Delivery Fraction of Inspired Oxygen 45 06/27/24 19:59 06/27/24 20:00 06/27/24 20:29 Temperature 100.8 F H Pulse Rate 79 72 Respiratory Rate 28 H 32 H Blood Pressure 130/70 Pulse Oximetry 95 95 Oxygen Delivery Mechanical Ventilation Fraction of Inspired Oxygen 45 06/27/24 20:10 06/27/24 20:35 06/27/24 20:00 Temperature Pulse Rate 72 71 78 Respiratory Rate 32 H Blood Pressure Pulse Oximetry 100 Oxygen Delivery Mechanical Ventilation Fraction of Inspired Oxygen 45 06/27/24 22:00 06/27/24 22:00 06/27/24 22:18 Temperature 101.5 F H 101.5 F H Pulse Rate 71 71 Respiratory Rate 35 H Blood Pressure 132/63 Pulse Oximetry 96 Oxygen Delivery Fraction of Inspired Oxygen 06/27/24 23:15 06/27/24 23:18 06/27/24 23:22 Temperature 101.8 F H Pulse Rate Respiratory Rate Blood Pressure Pulse Oximetry 95 Oxygen Delivery Mechanical Ventilation Fraction of Inspired Oxygen 45 45 06/27/24 23:05 06/27/24 20:00 06/27/24 21:00 Temperature Pulse Rate 60 79 69 Respiratory Rate 33 H 32 H Blood Pressure Pulse Oximetry 96 Oxygen Delivery Mechanical Ventilation Fraction of Inspired Oxygen 45 06/27/24 22:00 06/27/24 23:00 06/28/24 00:00 Temperature Pulse Rate 68 67 70 Respiratory Rate 30 H 39 H 40 H Blood Pressure Pulse Oximetry Oxygen Delivery Fraction of Inspired Oxygen 06/28/24 00:00 06/28/24 00:00 06/28/24 00:20 Temperature 102 F H 102 F H Pulse Rate 70 70 Respiratory Rate 40 H Blood Pressure 112/53 L Pulse Oximetry 94 Oxygen Delivery Fraction of Inspired Oxygen 06/28/24 04:05 06/28/24 01:00 06/28/24 02:00 Temperature 102.4 F H Pulse Rate 82 88 Respiratory Rate 44 H 36 H Blood Pressure Pulse Oximetry Oxygen Delivery Fraction of Inspired Oxygen 06/28/24 02:00 06/28/24 03:00 06/28/24 04:00 Temperature Pulse Rate 88 70 63 Respiratory Rate 36 H 33 H 28 H Blood Pressure Pulse Oximetry Oxygen Delivery Fraction of Inspired Oxygen 06/28/24 02:10 06/28/24 02:20 06/28/24 02:28 Temperature Pulse Rate 65 65 62 Respiratory Rate 30 H 28 H Blood Pressure Pulse Oximetry 94 Oxygen Delivery Mechanical Ventilation Fraction of Inspired Oxygen 40 06/28/24 05:10 06/28/24 05:10 06/28/24 04:42 Temperature Pulse Rate 60 60 88 Respiratory Rate 25 H 27 H 37 H Blood Pressure Pulse Oximetry 94 Oxygen Delivery Fraction of Inspired Oxygen 06/28/24 02:00 06/28/24 04:00 06/28/24 02:00 Temperature 102 F H 102.5 F H Pulse Rate 88 63 88 Respiratory Rate 36 H 28 H Blood Pressure 120/57 L 113/54 L Pulse Oximetry 96 95 Oxygen Delivery Fraction of Inspired Oxygen 06/28/24 04:00 06/28/24 02:30 06/28/24 04:00 Temperature 102.2 F H Pulse Rate 63 Respiratory Rate Blood Pressure Pulse Oximetry 97 Oxygen Delivery Mechanical Ventilation Fraction of Inspired Oxygen 40 06/28/24 05:00 06/28/24 05:05 06/28/24 05:50 Temperature 102 F H Pulse Rate 60 60 Respiratory Rate 26 H Blood Pressure Pulse Oximetry 98 Oxygen Delivery Mechanical Ventilation Fraction of Inspired Oxygen 40 06/28/24 04:00 06/28/24 06:00 06/28/24 06:00 Temperature Pulse Rate 60 60 Respiratory Rate 24 H Blood Pressure 112/51 L Pulse Oximetry 96 Oxygen Delivery Fraction of Inspired Oxygen 45 06/28/24 06:53 06/28/24 08:00 06/28/24 08:09 Temperature Pulse Rate 61 61 Respiratory Rate 26 H 30 H Blood Pressure Pulse Oximetry Oxygen Delivery Fraction of Inspired Oxygen 50 06/28/24 08:09 06/28/24 08:00 06/28/24 08:22 Temperature 101.4 F H Pulse Rate 60 60 60 Respiratory Rate 25 H 28 H Blood Pressure 117/54 L Pulse Oximetry 92 92 Oxygen Delivery Mechanical Ventilation Fraction of Inspired Oxygen 50 06/28/24 09:13 06/28/24 10:00 06/28/24 08:00 Temperature 101.6 F H Pulse Rate 60 62 60 Respiratory Rate 31 H Blood Pressure 108/50 L Pulse Oximetry 92 Oxygen Delivery Fraction of Inspired Oxygen 06/28/24 10:00 06/28/24 08:10 06/28/24 08:00 Temperature Pulse Rate 62 Respiratory Rate Blood Pressure Pulse Oximetry 92 Oxygen Delivery Mechanical Ventilation Fraction of Inspired Oxygen 50 50 06/28/24 10:49 06/28/24 11:41 06/28/24 12:00 Temperature 102 F H Pulse Rate 62 Respiratory Rate Blood Pressure Pulse Oximetry 92 92 Oxygen Delivery Mechanical Ventilation Mechanical Ventilation Fraction of Inspired Oxygen 50 50 06/28/24 12:00 06/28/24 12:00 06/28/24 12:00 Temperature 102.0 F H Pulse Rate 69 70 Respiratory Rate 29 H Blood Pressure 123/60 Pulse Oximetry 92 Oxygen Delivery Fraction of Inspired Oxygen 50 06/28/24 13:50 06/28/24 13:54 06/28/24 14:00 Temperature Pulse Rate 71 71 71 Respiratory Rate 28 H Blood Pressure Pulse Oximetry 97 Oxygen Delivery Mechanical Ventilation Fraction of Inspired Oxygen 50 06/28/24 14:00 06/28/24 12:41 06/28/24 15:44 Temperature 101.8 F H 101.8 F H Pulse Rate 72 Respiratory Rate 30 H Blood Pressure 127/62 Pulse Oximetry 92 Oxygen Delivery Fraction of Inspired Oxygen 50 06/28/24 16:00 06/28/24 16:00 06/28/24 16:00 Temperature 101.0 F H Pulse Rate 77 79 Respiratory Rate 30 H Blood Pressure 135/72 Pulse Oximetry 98 98 Oxygen Delivery Mechanical Ventilation Fraction of Inspired Oxygen 50 06/28/24 15:40 Temperature Pulse Rate 76 Respiratory Rate Blood Pressure Pulse Oximetry 97 Oxygen Delivery Mechanical Ventilation Fraction of Inspired Oxygen 50 Intake/Output Intake/Output: Intake & Output 06/25/24 06/26/24 06/27/24 06/28/24 23:59 23:59 23:59 23:59 Intake Total 1280.8 1160 1336.6 661.3 Output Total 2815 335 4605 130 Balance -1534.2 825 -3268.4 531.3 Meds/Results Medications: Active Medications Generic Name Dose Route Start Last Admin Trade Name Freq PRN Reason Stop Dose Admin Acetaminophen 650 mg 06/07/24 21:53 06/28/24 11:41 Acetaminophen Elixir 325 Mg/10.15 Ml Udc PO 650 mg Q6H PRN Administration Mild Pain (1-3) or Fever Albuterol/Ipratropium 3 ml 06/05/24 11:15 06/28/24 13:49 Ipratropium 0.5 Mg/Albuterol Sulfate 2.5 Mg Ampul.Neb 3 Ml INHALATION 3 ml Q6HRT JOHN Administration Amiodarone HCl 200 mg 06/02/24 21:00 06/28/24 09:13 Amiodarone Hcl 200 Mg Tablet PO 200 mg Q12HR JOHN Administration Apixaban 5 mg 06/27/24 09:00 06/28/24 09:13 Apixaban 5 Mg Tablet FEED TUBE 5 mg Q12HR JOHN Administration Dextrose 12.5 gm 06/05/24 11:46 Dextrose 50% 25 Gm/50 Ml Syringe IV PUSH PRN PRN Hypoglycemia Protocol Epoetin Shayan-epbx 10,000 units 06/18/24 09:00 06/27/24 10:25 Epoetin Shayan-Epbx 10,000 Units/Ml Vial IV PUSH 10,000 units MOWEFR@09 JOHN Administration Fidaxomicin 200 mg 06/24/24 01:35 RECEIVING COORDINATOR 06/28/24 09:13 Fidaxomicin 200 Mg Tablet PO 07/03/24 09:01 200 mg Q12HR JOHN Administration Glucagon 1 mg 06/05/24 11:46 Glucagon For Inj 1 Mg Vial IM PRN PRN Hypoglycemia Protocol Glucose 15 gm 06/05/24 11:46 Glucose Oral Gel 15 Gm Of Glucse In 37.5 Gm Tube PO PRN PRN Hypoglycemia Protocol Dextrose 1,000 mls @ 100 mls/hr 06/05/24 11:46 Dextrose 5% 1,000 Ml IVPB PRN PRN Hypoglycemia Protocol Albumin Human 50 mls @ 999 mls/hr 06/08/24 09:50 06/12/24 11:39 Albutein IVPB 07/08/24 09:49 Infused Q10M PRN Infusion HYPOTENSION Meropenem 1 gm in 100 mls @ 200 mls/hr 06/29/24 16:00 IVPB Q24H [facility] Insulin Aspart 3 - 6 units 06/05/24 12:00 06/28/24 11:41 Insulin Aspart (*Bkc) 100 Units/Ml SUB-Q Not Given Q6HR JOHN Protocol Linezolid 600 mg 06/27/24 21:00 06/28/24 09:13 Linezolid 600 Mg Tablet FEED TUBE 07/01/24 09:01 600 mg Q12HR JOHN Administration Metoclopramide HCl 10 mg 06/27/24 08:30 06/28/24 14:13 Metoclopramide Hcl 10 Mg/10 Ml Soln Udc FEED TUBE 10 mg Q6H JOHN Administration Midodrine 10 mg 06/17/24 22:00 06/28/24 14:13 Midodrine Hcl 10 Mg Tablet PO 10 mg Q8H JOHN Administration Morphine Sulfate 2 mg 06/27/24 12:55 06/28/24 14:13 Morphine Sulfate (*Crx) 2 Mg/Ml Inj IV PUSH 2 mg Q3H PRN Administration Pain Rated 7-10 Multi-Ingred Cream/Lotion/Oil/Oint 1 applic 06/05/24 09:00 06/28/24 09:14 Mineral Oil/White Petrolatum Ointment EACH EYE Not Given Q12HR [facility] Ondansetron HCl 4 mg 06/11/24 07:47 06/28/24 04:04 Ondansetron Inj 4 Mg/2 Ml Vial IV PUSH 4 mg Q6H PRN Administration Nausea And Vomiting Pantoprazole Sodium 40 mg 06/06/24 09:00 06/28/24 09:14 Pantoprazole Sodium Iv 40 Mg Vial IV PUSH 40 mg Q12HR JOHN Administration Quetiapine Fumarate 25 mg 06/28/24 09:00 06/28/24 09:13 Quetiapine Fumarate 25 Mg Tablet FEED TUBE 25 mg Q12HR [facility] Administration Umeclidinium [place] 1 puff 06/03/24 08:00 06/14/24 12:38 Umeclidinium [place] 62.5 Mcg Ellipta INHALATION Not Given DAILYRT [facility] Radiology Results: ITS Impressions Renal Ultrasound 06/04/24 15:06 IMPRESSION: 1. Normal kidneys. No hydronephrosis. Abdomen Ultrasound 06/10/24 14:47 IMPRESSION: Fat infiltration. Enlarged left lobe of the liver. Slightly thickened wall of the gallbladder. Trace of ascites. Otherwise, normal Limited ultrasound of the abdomen. Abdomen X-Ray 06/16/24 13:54 IMPRESSION: 1. Nasogastric tube tip in the stomach. 2. Nonobstructive bowel gas pattern. 3. Diffuse lung disease, consistent with pulmonary edema versus pneumonia. 4. Cardiomegaly. Central Venous Line 06/22/24 14:36 IMPRESSION: 1. Right internal jugular central venous catheter tip at the caudal superior vena cava. Chest/Abdomen/Pelvis CT 06/24/24 21:07 IMPRESSION: Diffuse patchy bilateral pulmonary ground glass infiltrates suggesting pneumonitis, less likely small airways disease Prominent bilateral lower lobe atelectasis with air bronchograms Cardiomegaly Splenomegaly Chest X-Ray 06/28/24 06:32 Impression: Support tubes, as above. Central congestive change with mild interstitial edema and probable minimal left pleural effusion. Venous Doppler Study 06/28/24 15:32 IMPRESSION: 1. No deep venous thrombosis. Labs Labs: Laboratory Results - last 24 hr 06/27/24 06/27/24 06/27/24 17:43 20:00 23:16 WBC RBC Hgb Hct MCV MCH MCHC RDW Plt Count MPV Sodium Potassium Chloride Carbon Dioxide Anion Gap BUN Creatinine Estim Creat Clear Calc Estimated GFR Glucose POC Capillary Glucose 114 H 155 H Calcium Magnesium Total Bilirubin AST ALT Alkaline Phosphatase Total Creatine Kinase 28 L Total Protein Albumin 06/28/24 06/28/24 04:08 11:35 WBC 14.1 H RBC 3.94 L Hgb 10.5 L Hct 35.8 L MCV 90.9 D MCH 26.6 MCHC 29.3 L RDW 20.4 H Plt Count 347 MPV 11.2 H Sodium 133 L Potassium 4.2 Chloride 96 L Carbon Dioxide 22 Anion Gap 15 H BUN 55 H D Creatinine 4.30 H Estim Creat Clear Calc 20 Estimated GFR 11 L Glucose 164 H POC Capillary Glucose 147 H Calcium 9.9 Magnesium 2.5 H Total Bilirubin 2.4 H AST 209 H ALT 24 Alkaline Phosphatase 302 H Total Creatine Kinase Total Protein 8.0 Albumin 3.6
[2024-06-28 17:04] LABS: Lipase 698 U/L (23-300)
[2024-06-28 18:16] LABS: Glucose Point of Care 131 mg/dl (65-105)
[2024-06-28] MEDS: MINERAL OIL/WHITE PETROLATUM OINTMENT 1 APPLIC EACH EYE (20:19)
[2024-06-29] VITALS (35 sets, daily range): BP systolic 91–138; BP diastolic 50–96; PULSE 60–96; RESP 18–33; TEMP 37–38.6; O2SAT 97–100
[2024-06-29 00:18] LABS: Glucose Point of Care 129 mg/dl (65-105)
[2024-06-29] MEDS: MORPHINE SULFATE (*CRX) 2 MG/ML INJ IV PUSH ×3 (00:56→09:45)
[2024-06-29] MEDS: METOCLOPRAMIDE HCL 10 MG/10 ML SOLN UDC FEED TUBE ×2 (01:23→12:52)
[2024-06-29] MEDS: IPRATROPIUM 0.5 MG/ALBUTEROL SULFATE 2.5 MG AMPUL.NEB 3 ML INHALATION ×2 (02:20→08:54)
[2024-06-29 03:59] LABS: Hematocrit 31.9 % (37.0-47.0); Hemoglobin 9.9 g/dL (12.0-15.0); Mean Corpuscular Hemoglobin 27.2 pg (26-34); Mean Corpuscular Volume 87.6 fl (80-100); Mean Platelet Volume 10.5 fl (7.4-10.4); Platelet Count Result 373 k/mm3 (150-375); Red Blood Count 3.64 M/mm3 (4.2-5.4); Red Cell Distribution Width 19.8 % (11.5-14.5); White Blood Count 15.9 K/mm3 (4.5-10.0)
[2024-06-29 04:13] LABS: Alanine Aminotransferase 23 U/L (6-35); Albumin Level 3.4 g/dL (3.5-5.1); Alkaline Phosphatase 310 U/L (38-126); Anion Gap 15 mmol/L (4-12); Aspartate Amino Transferase 172 U/L (14-36); Bilirubin,Total 2.7 mg/dL (0.2-1.3); Blood Urea Nitrogen 73 mg/dL (7-17); Calcium 10.3 mg/dL (8.4-10.2); Carbon Dioxide 24 mmol/L (22-30); Chloride 95 mmol/L (98-107); Glucose 147 mg/dL (65-110); Magnesium 2.4 mg/dL (1.6-2.3); Sodium 134 mmol/L (137-145)
[2024-06-29] MEDS: ACETAMINOPHEN ELIXIR 325 MG/10.15 ML UDC 650 MG PO ×2 (04:14→09:44)
[2024-06-29 04:22] LABS: Estimated CRCL calculation 15 ml/min; Estimated Glomerular Filt Rate 8
[2024-06-29] MEDS: MIDODRINE HCL 10 MG TABLET PO ×2 (06:16→09:02)
--- NOTE | 2024-06-29 08:22 | WPDINTPN ---
Progress Note: A&P Assessment and Plan (1) Acute respiratory failure: Code(s): J96.00 - Acute respiratory failure, unspecified whether with hypoxia or hypercapnia Status: Acute Assessment and Plan: Chest x-ray bilateral diffuse pulmonary infiltrates/pulmonary edema. Patient was placed on BiPAP. ABG showed hypercapnic and hypoxemic respiratory failure. Etiology pulmonary edema, pneumonia, ARDS -06/05: patient intubated for impending respiratory failure. Intubation was slightly challenging secondary to body habitus, small mouth, large tongue, redundant tissue in the hypopharynx and anterior vocal cords requiring cricoid pressure and use of glide scope. CT chest 06/17 IMPRESSION: 1. Diffuse lung disease, consistent with pulmonary edema versus pneumonia versus acute respiratory distress syndrome. 2. Cardiomegaly. 3. Small volume of ascites. -patient has failed her PSV trials multiple times and is not close to showing any signs of weaning - 06/19: Discussed with patient's sister who is the POA and patient's son, they they requested and agreeable for tracheostomy and PEG tube placement 06/25: Patient underwent tracheostomy and G-tube placement 06/28: Patient placed on PSV 05/04 chest x-ray reviewed and shows central congestive changes. 06/29: Will try PSV again today after dialysis session. Off sedation now (2) Septic shock: Code(s): A41.9 - Sepsis, unspecified organism; R65.21 - Severe sepsis with septic shock Status: Acute Assessment and Plan: Septic shock could be related to UTI, pneumonia -patient was hypotensive in the intermediate Unit and was transferred to the ICU which she received fluids, albumin -continue norepinephrine as needed to maintain mean arterial pressure. Currently off -off vancomycin, -completed cefepime for a total of 7 days -off stress dose steroids -continue midodrine -06/17: CT chest abdomen and pelvis for ongoing leukocytosis and vasopressor requirement. Will also obtain right lower extremity venous Dopplers since patient has a right lower extremity is erythematous, slightly swollen. 06/05/2024: Echocardiogram Summary 1. Left ventricular chamber dimension is normal. 2. Left ventricular systolic function is normal, estimated at 65-70%. 3. The left ventricular diastolic function is grade I diastolic dysfunction. 4. Right ventricular chamber dimension is moderately enlarged. 5. Right ventricular systolic function is normal. 6. Left atrial chamber dimension is moderately enlarged. 7. Right atrial chamber dimension is moderately enlarged. 8. There is mild to moderate tricuspid valve regurgitation. 06/23 overnight patient had a increase in WBC count and high-grade fevers Increased FiO2 requirement and increased endotracheal suction Procalcitonin level 4.9 Lai catheter was changed, UA suggestive of UTI and urine culture is growing VRE Sputum culture is growing yeast Blood cultures are negative CT scan showed - Diffuse patchy bilateral pulmonary ground glass infiltrates suggesting pneumonitis, less likely small airways disease Prominent bilateral lower lobe atelectasis with air bronchograms suggestive of pneumonia Patient also had diarrhea and tested positive for C diff Lipase was also elevated at 478. Vancomycin changed to Zyvox. Continues I Continue Dificid. 06/27 Change cefepime to meropenem. Continue meropenem Negative venous Dopplers (3) JOVI (acute kidney injury): Code(s): N17.9 - Acute kidney failure, unspecified Status: Acute Assessment and Plan: Patient with acute kidney injury, with increase creatinine to 4.60 (creatinine on admission on 06/02/2024 was 2.10 and her creatinine on 04/26/2024 was 0.90) -etiology for acute kidney injury could be multifactorial, hypotension, shock, sepsis, UTI/pneumonia, hypoxia,? SLE flare, CHF, -CK levels are within normal limits -urine eosinophils were negative -urine electrolytes showed prerenal picture, patient seems to be volume overloaded -status post given IV fluids and albumin, will hold fluids for now -discussed with senior engineering manager at [facility], feels that the patient is unstable to be transferred at this time for CRRT, recommended conventional dialysis. -discussed with analytical technician at [facility], agrees to conventional dialysis at this time -06/05: dialysis catheter was placed in the right IJ and exchange for the central line -06/05: Initiated dialysis, with 3000 mL of fluid removal -06/06: Dialysis with 3000 mL in fluid removal -06/07: Dialysis with 3700 mL in fluid removal -06/08: Dialysis with 2900 mL in fluid removal -06/09: Dialysis with 3000 mL in fluid removal -06/10: No dialysis -06/12: Patient was dialyzed and 3.1 P L fluid was removed -06/13 getting dialyzed again today. 4 L removed - 06/14: 3000 mL removed - 06/15: 4000 mL fluid was removed - 06/16: 4000 mL in fluid removal with dialysis - 06/18: 4000 ml in fluid removal - 06/20: 4000 mL in fluid removal - 06/22: Patient is getting dialyzed again today 4 L fluid removed Underwent tunneled dialysis catheter placement on 06/22/202406/25: Patient was dialyzed but only half of the session was completed due to patient needing to go to OR for surgery. 06/27:patient was dialyzed on 4 L fluid was removed 06/29: Patient is getting dialyzed again today (4) Pulmonary edema: Code(s): J81.1 - Chronic pulmonary edema Status: Acute Assessment and Plan: Pulmonary edema likely related to acute kidney injury, ARDS, -did not respond to Bumex -continue fluid removal with dialysis (5) Type 2 diabetes mellitus: Code(s): E11.9 - Type 2 diabetes mellitus without complications Status: Acute Assessment and Plan: SSI and accucheks HbA1C is 5.7 this admission (6) Afib: Code(s): I48.91 - Unspecified atrial fibrillation Status: Acute Assessment and Plan: continue amiodarone and Eliquis - flecainide was stopped (7) Liver cirrhosis secondary to HOFFMANN: Code(s): K75.81 - Nonalcoholic steatohepatitis (HOFFMANN); K74.60 - Unspecified cirrhosis of liver Status: Acute Assessment and Plan: Continues to have mild elevation in LFTs and bilirubin which is stable 06/10/2024: RUQ ultrasound: Fat infiltration. Enlarged left lobe of the liver. Slightly thickened wall of the gallbladder. Trace of ascites. Otherwise, normal Limited ultrasound of the abdomen. -06/10/2024: Hepatitis panel is negative -continue to monitor (8) GERD (gastroesophageal reflux disease): Code(s): K21.9 - Gastro-esophageal reflux disease without esophagitis Status: Acute Assessment and Plan: Continue Protonix (9) Pancreatitis: Code(s): K85.90 - Acute pancreatitis without necrosis or infection, unspecified Status: Acute Assessment and Plan: Lipase elevated CT abdomen pelvis unremarkable Continue tube feeds (10) C. difficile diarrhea: Code(s): A04.72 - Enterocolitis due to Clostridium difficile, not specified as recurrent Status: Acute Assessment and Plan: Continue Dificid. Will DC IV Flagyl CT abdomen pelvis reviewed and shows no colon Dilation Diarrhea seems to have improved Continue tube feeds Plan DVT prophylaxis: Chance Stress ulcer prophylaxis: Protonix Nutrition: Tube feeds Code Status: Full code Patient is being evaluated for transfer to LTAC. She is ready to be transferred. She will continue antibiotic course there and further weaning ventilator Critical Care Time Spent: 30 minutes Due to a high probability of clinically significant, life threatening deterioration, the patient required my highest level of preparedness to intervene emergently and I personally spent this critical care time directly and personally managing the patient. This critical care time included obtaining a history; examining the patient; pulse oximetry; ordering and review of studies; arranging urgent treatment with development of a management plan; evaluation of patient's response to treatment; frequent reassessment; and discussions with other providers. It was exclusive of separately billable procedures and treating other patients and teaching time. Please see Assessment and Plan section and the rest of the note for further information on patient assessment and treatment This dictation may have been done utilizing a voice recognition system. Attempts have been made to correct errors. However, there may be uncorrected grammatical, spelling, and recognitions errors present Subjective Date/time seen: 06/29/24 Overnight events reviewed. Mostly Afebrile through the night Continues to be on mechanical ventilation 50% FiO2 and 8 of PEEP Tolerating tube feeds. Other Vitals acceptable Interval history: Reason for consult: Acute respiratory failure, septic shock, acute kidney injury, pulmonary edema 06/05: Intubated and hemodialysis initiated 06/22: Tunneled dialysis catheter placed 06/25: Tracheostomy and G-tube placement Review of Systems Review of Systems: ROS unobtainable: Yes unobtainable due to endotracheal tube, unobtainable due to medical condition and unobtainable due to mental status Exam Narrative: General: Morbidly obese female currently intubated and in no acute distress HEENT:? Pupils equal and reactive bilaterally, sclera is clear, trach in place Neck:, short and thick neck, Respiratory:? Decreased and coarse breath sounds bilaterally, no wheezing, Cardiac:? S1-S2 is normal, regular rate and rhythm Abdomen:? Morbid obesity, soft, hypoactive bowel sounds G-tube in place Extremities:? Bilateral lower extremity pitting edema improving, wrinkling of skin on the feet are noted, palpable pedal pulses. Right calf is warm, erythematous, nontender Neuro:? Patient is trach. On calling her name she Opens her eyes and regards examiner but does not follow any commands. PERRL Skin:? Erythema in the intertriginous region and under her pannus, skin is dry and warm Psych:? Unable to assess at this time Objective Data Vital Signs Vital Signs: Vital Signs - 24 hr 06/28/24 09:13 06/28/24 10:00 06/28/24 10:00 Temperature 38.7 C H Pulse Rate 60 62 62 Respiratory Rate 31 H Blood Pressure 108/50 L Pulse Oximetry 92 Oxygen Delivery Fraction of Inspired Oxygen 06/28/24 10:49 06/28/24 11:41 06/28/24 12:00 Temperature 38.8 C H Pulse Rate 62 Respiratory Rate Blood Pressure Pulse Oximetry 92 92 Oxygen Delivery Mechanical Ventilation Mechanical Ventilation Fraction of Inspired Oxygen 50 50 06/28/24 12:00 06/28/24 12:00 06/28/24 12:00 Temperature 38.9 C H Pulse Rate 69 70 Respiratory Rate 29 H Blood Pressure 123/60 Pulse Oximetry 92 Oxygen Delivery Fraction of Inspired Oxygen 50 06/28/24 13:50 06/28/24 13:54 06/28/24 14:00 Temperature Pulse Rate 71 71 71 Respiratory Rate 28 H Blood Pressure Pulse Oximetry 97 Oxygen Delivery Mechanical Ventilation Fraction of Inspired Oxygen 50 06/28/24 14:00 06/28/24 12:41 06/28/24 15:44 Temperature 38.8 C H 38.8 C H Pulse Rate 72 Respiratory Rate 30 H Blood Pressure 127/62 Pulse Oximetry 92 Oxygen Delivery Fraction of Inspired Oxygen 50 06/28/24 16:00 06/28/24 16:00 06/28/24 16:00 Temperature 38.3 C H Pulse Rate 77 79 Respiratory Rate 30 H Blood Pressure 135/72 Pulse Oximetry 98 98 Oxygen Delivery Mechanical Ventilation Fraction of Inspired Oxygen 50 06/28/24 15:40 06/28/24 17:01 06/28/24 18:00 Temperature 37.6 C Pulse Rate 76 71 74 Respiratory Rate 26 H Blood Pressure 136/65 Pulse Oximetry 97 98 98 Oxygen Delivery Mechanical Ventilation Mechanical Ventilation Fraction of Inspired Oxygen 50 50 06/28/24 18:00 06/28/24 20:12 06/28/24 20:12 Temperature Pulse Rate 74 78 78 Respiratory Rate 29 H Blood Pressure Pulse Oximetry 100 Oxygen Delivery Mechanical Ventilation Fraction of Inspired Oxygen 50 06/28/24 20:23 06/28/24 20:18 06/28/24 20:00 Temperature Pulse Rate 79 74 82 Respiratory Rate 26 H Blood Pressure Pulse Oximetry Oxygen Delivery Fraction of Inspired Oxygen 06/28/24 20:00 06/28/24 20:00 06/28/24 20:00 Temperature 37.7 C H Pulse Rate 79 Respiratory Rate 30 H Blood Pressure 136/65 Pulse Oximetry 100 99 Oxygen Delivery Mechanical Ventilation Fraction of Inspired Oxygen 50 50 06/28/24 22:00 06/28/24 22:00 06/28/24 23:17 Temperature 37.4 C Pulse Rate 71 71 72 Respiratory Rate 24 H Blood Pressure 124/58 L Pulse Oximetry 99 99 Oxygen Delivery Mechanical Ventilation Fraction of Inspired Oxygen 50 06/29/24 00:00 06/29/24 00:00 06/29/24 00:00 Temperature 37.4 C Pulse Rate 71 Respiratory Rate 24 H Blood Pressure 121/57 L Pulse Oximetry 100 99 Oxygen Delivery Mechanical Ventilation Fraction of Inspired Oxygen 50 50 06/29/24 00:00 06/29/24 02:00 06/29/24 02:00 Temperature 37.5 C Pulse Rate 75 85 85 Respiratory Rate 22 H Blood Pressure 127/65 Pulse Oximetry 100 Oxygen Delivery Fraction of Inspired Oxygen 06/29/24 02:20 06/29/24 02:20 06/29/24 02:27 Temperature Pulse Rate 85 85 84 Respiratory Rate 30 H 21 H Blood Pressure Pulse Oximetry 100 Oxygen Delivery Mechanical Ventilation Fraction of Inspired Oxygen 50 06/29/24 04:14 06/29/24 05:18 06/29/24 05:14 Temperature 37.8 C H 37.4 C Pulse Rate 81 Respiratory Rate Blood Pressure Pulse Oximetry 100 Oxygen Delivery Mechanical Ventilation Fraction of Inspired Oxygen 50 06/29/24 04:00 06/29/24 04:00 06/29/24 04:00 Temperature 37.8 C H Pulse Rate 85 84 Respiratory Rate 26 H Blood Pressure 138/64 Pulse Oximetry 100 Oxygen Delivery Fraction of Inspired Oxygen 50 06/29/24 06:00 06/29/24 06:00 06/29/24 04:00 Temperature 37.3 C Pulse Rate 78 78 Respiratory Rate 24 H Blood Pressure 102/50 L Pulse Oximetry 100 100 Oxygen Delivery Mechanical Ventilation Fraction of Inspired Oxygen 50 Intake/Output Intake/Output: Intake & Output 06/26/24 06/27/24 06/28/24 06/29/24 23:59 23:59 23:59 23:59 Intake Total 1160 1336.6 1468.3 740 Output Total 335 4605 695 290 Balance 825 -3268.4 773.3 450 Meds/Results Medications: Active Medications Generic Name Dose Route Start Last Admin Trade Name Freq PRN Reason Stop Dose Admin Acetaminophen 650 mg 06/07/24 21:53 06/29/24 04:14 Acetaminophen Elixir 325 Mg/10.15 Ml Udc PO 650 mg Q6H PRN Administration Mild Pain (1-3) or Fever Albuterol/Ipratropium 3 ml 06/05/24 11:15 06/29/24 02:20 Ipratropium 0.5 Mg/Albuterol Sulfate 2.5 Mg Ampul.Neb 3 Ml INHALATION 3 ml Q6HRT JOHN Administration Amiodarone HCl 200 mg 06/02/24 21:00 06/28/24 20:18 Amiodarone Hcl 200 Mg Tablet PO 200 mg Q12HR JOHN Administration Apixaban 5 mg 06/27/24 09:00 06/28/24 20:18 Apixaban 5 Mg Tablet FEED TUBE 5 mg Q12HR JOHN Administration Dextrose 12.5 gm 06/05/24 11:46 Dextrose 50% 25 Gm/50 Ml Syringe IV PUSH PRN PRN Hypoglycemia Protocol Epoetin Shayan-epbx 10,000 units 06/18/24 09:00 06/27/24 10:25 Epoetin Shayan-Epbx 10,000 Units/Ml Vial IV PUSH 10,000 units MOWEFR@09 JOHN Administration Fidaxomicin 200 mg 06/24/24 01:35 PARTS FACILITATOR 06/28/24 20:18 Fidaxomicin 200 Mg Tablet PO 07/03/24 09:01 200 mg Q12HR JOHN Administration Glucagon 1 mg 06/05/24 11:46 Glucagon For Inj 1 Mg Vial IM PRN PRN Hypoglycemia Protocol Glucose 15 gm 06/05/24 11:46 Glucose Oral Gel 15 Gm Of Glucse In 37.5 Gm Tube PO PRN PRN Hypoglycemia Protocol Dextrose 1,000 mls @ 100 mls/hr 06/05/24 11:46 Dextrose 5% 1,000 Ml IVPB PRN PRN Hypoglycemia Protocol Albumin Human 50 mls @ 999 mls/hr 06/08/24 09:50 06/12/24 11:39 Albutein IVPB 07/08/24 09:49 Infused Q10M PRN Infusion HYPOTENSION Meropenem 1 gm in 100 mls @ 200 mls/hr 06/29/24 16:00 IVPB Q24H [facility] Insulin Aspart 3 - 6 units 06/05/24 12:00 06/29/24 06:19 Insulin Aspart (*Bkc) 100 Units/Ml SUB-Q Not Given Q6HR [facility] Protocol Linezolid 600 mg 06/27/24 21:00 06/28/24 20:18 Linezolid 600 Mg Tablet FEED TUBE 07/01/24 09:01 600 mg Q12HR JOHN Administration Metoclopramide HCl 10 mg 06/27/24 08:30 06/29/24 01:23 Metoclopramide Hcl 10 Mg/10 Ml Soln Udc FEED TUBE 10 mg Q6H JOHN Administration Midodrine 10 mg 06/17/24 22:00 06/29/24 06:16 Midodrine Hcl 10 Mg Tablet PO 10 mg Q8H [facility] Administration Morphine Sulfate 2 mg 06/27/24 12:55 06/29/24 04:14 Morphine Sulfate (*Crx) 2 Mg/Ml Inj IV PUSH 2 mg Q3H PRN Administration Pain Rated 7-10 Multi-Ingred Cream/Lotion/Oil/Oint 1 applic 06/05/24 09:00 06/28/24 20:19 Mineral Oil/White Petrolatum Ointment EACH EYE 1 applic Q12HR JOHN Administration Ondansetron HCl 4 mg 06/11/24 07:47 06/28/24 04:04 Ondansetron Inj 4 Mg/2 Ml Vial IV PUSH 4 mg Q6H PRN Administration Nausea And Vomiting Pantoprazole Sodium 40 mg 06/06/24 09:00 06/28/24 20:19 Pantoprazole Sodium Iv 40 Mg Vial IV PUSH 40 mg Q12HR JOHN Administration Quetiapine Fumarate 25 mg 06/28/24 09:00 06/28/24 20:18 Quetiapine Fumarate 25 Mg Tablet FEED TUBE 25 mg Q12HR JOHN Administration Umeclidinium [place] 1 puff 06/03/24 08:00 06/14/24 12:38 Umeclidinium [place] 62.5 Mcg Ellipta INHALATION Not Given DAILYRT [facility] Radiology Results: ITS Impressions Renal Ultrasound 06/04/24 15:06 IMPRESSION: 1. Normal kidneys. No hydronephrosis. Abdomen Ultrasound 06/10/24 14:47 IMPRESSION: Fat infiltration. Enlarged left lobe of the liver. Slightly thickened wall of the gallbladder. Trace of ascites. Otherwise, normal Limited ultrasound of the abdomen. Abdomen X-Ray 06/16/24 13:54 IMPRESSION: 1. Nasogastric tube tip in the stomach. 2. Nonobstructive bowel gas pattern. 3. Diffuse lung disease, consistent with pulmonary edema versus pneumonia. 4. Cardiomegaly. Central Venous Line 06/22/24 14:36 IMPRESSION: 1. Right internal jugular central venous catheter tip at the caudal superior vena cava. Chest/Abdomen/Pelvis CT 06/24/24 21:07 IMPRESSION: Diffuse patchy bilateral pulmonary ground glass infiltrates suggesting pneumonitis, less likely small airways disease Prominent bilateral lower lobe atelectasis with air bronchograms Cardiomegaly Splenomegaly Chest X-Ray 06/28/24 06:32 Impression: Support tubes, as above. Central congestive change with mild interstitial edema and probable minimal left pleural effusion. Venous Doppler Study 06/28/24 15:32 IMPRESSION: 1. No deep venous thrombosis. Labs Labs: Laboratory Results - last 24 hr 06/28/24 06/28/24 06/28/24 04:08 11:35 17:37 WBC RBC Hgb Hct MCV MCH MCHC RDW Plt Count MPV Sodium Potassium Chloride Carbon Dioxide Anion Gap BUN Creatinine Estim Creat Clear Calc Estimated GFR Glucose POC Capillary Glucose 147 H 131 H Calcium Magnesium Total Bilirubin AST ALT Alkaline Phosphatase Total Protein Albumin Lipase 698 H 06/29/24 06/29/24 00:11 03:52 WBC 15.9 H RBC 3.64 L Hgb 9.9 L Hct 31.9 L MCV 87.6 MCH 27.2 MCHC 31.0 L RDW 19.8 H Plt Count 373 MPV 10.5 H Sodium 134 L Potassium 3.0 L Chloride 95 L Carbon Dioxide 24 Anion Gap 15 H BUN 73 H D Creatinine 5.80 H Estim Creat Clear Calc 15 Estimated GFR 8 L Glucose 147 H POC Capillary Glucose 129 H Calcium 10.3 H Magnesium 2.4 H Total Bilirubin 2.7 H AST 172 H ALT 23 Alkaline Phosphatase 310 H Total Protein 7.0 Albumin 3.4 L Lipase Quality VTE Prophylaxis VTE prophylaxis: pharmacologic ordered
[2024-06-29] MEDS: PANTOPRAZOLE SODIUM IV 40 MG VIAL IV PUSH (09:01)
[2024-06-29] MEDS: ONDANSETRON INJ 4 MG/2 ML VIAL IV PUSH (09:44)
--- NOTE | 2024-06-29 09:59 | P.PNNP_ITS ---
Progress Note: A&P Assessment and Plan (1) JOVI (acute kidney injury): Code(s): N17.9 - Acute kidney failure, unspecified Status: Acute Assessment and Plan: * no real significant improvement to date * normal creatinine ~ 1 month ago * admitted with a creatinine of 2.1mg/dl with ongoing worsening noted * due to multifactorial ATN: * hemodynamic instability/shock * sepsis * infection (UTI +/- pneumonia) -- although culture negative to date * hypoxia * other? * evaluation to date noted: * renal ultrasound negative for obstruction * urine eosinophils negative * urine electrolytes pre-renal (in spite of evidence of volume overload) * CPK low * moderate proteinuria (~ 600mg) * UA with blood and protein (and negative urine culture) * has been dialysis dependent since 06/05 * s/p daily dialysis alternating with DUF (except Sundays) to facilitate euvolemia * HD today and continue Tue/Tue/Tuesday schedule * s/p tunneled HD catheter placement on 06/22/24 * follow repeat labs and UOP to assess for potential renal recovery (2) Acute respiratory failure: Code(s): J96.00 - Acute respiratory failure, unspecified whether with hypoxia or hypercapnia Status: Acute Assessment and Plan: * intubated on 06/05 for impending respiratory failure * failed BiPAP therapy * ABG with noted hypercapnea and hypoxia * secondary to pulmonary edema, diffuse bilateral infiltrates and ARDS * on bronchodilators * weaned off steroids * continue dialysis/dry ultrafiltration for fluid removal * s/p tracheostomy and G-tube placement on 06/25 * ventilator weaning as tolerated (3) Septic shock: Code(s): A41.9 - Sepsis, unspecified organism; R65.21 - Severe sepsis with septic shock Status: Acute Assessment and Plan: * initially thought to be secondary to UTI and pneumonia * was on levophed therapy to maintain MAP * weaned off and being used PRN * Echo results noted * continue midodrine * follow repeat culture data * follow trend of hemodynamics (4) Pulmonary edema: Code(s): J81.1 - Chronic pulmonary edema Status: Acute Assessment and Plan: * contributing to #2 * secondary to JOVI/ARF but ARDS an issues as well * failed diuretic therapy * HD/DUF for fluid removal * almost 22L negative since admission (5) C. difficile diarrhea: Code(s): A04.72 - Enterocolitis due to Clostridium difficile, not specified as recurrent Status: Acute Assessment and Plan: * currently on Dificid and IV Flagyl * CT abdomen pelvis results noted (6) Afib: Code(s): I48.91 - Unspecified atrial fibrillation Status: Acute Assessment and Plan: * rate control strategy * on amiodarone and Eliquis * anticoagulation on hold for procedures (7) Anemia: Code(s): D64.9 - Anemia, unspecified Status: Acute Assessment and Plan: * related to JOVI and acute/critical illness * KIRILL with HD * follow trend of H/H (8) Liver cirrhosis secondary to HOFFMANN: Code(s): K75.81 - Nonalcoholic steatohepatitis (HOFFMANN); K74.60 - Unspecified cirrhosis of liver Status: Acute Assessment and Plan: * known history * normal liver by recent imaging * noted elevations in AST/ALT that have been up and down * fluctuating LFTS thought to be more related to congestion/volume overload * continue to follow (9) Type 2 diabetes mellitus: Code(s): E11.9 - Type 2 diabetes mellitus without complications Status: Acute Assessment and Plan: * follow accu-cheks * glycemic control per change of address clerk/hospitalist Will continue to follow. Subjective Date/time seen: 06/29/24 09:59 Interval history: Follow-up for acute kidney injury/acute renal failure with dialysis dependence. Tolerating dialysis treatment at the time of my visit (seen on HD at 9:50AM); no apparent distress noted currently; remains on ventilator support via tracheostomy; stable hemodynamics overnight and earlier this morning; still with low urine output at this time. Exam Narrative: General: large female on mechanical ventilation via tracheostomy Heart: normal S1 and S2; no rub Lungs: coarse breath sounds; decreased at bases Abdomen: obese but soft, nontender, nondistended, positive bowel sounds Extremities: no cyanosis or clubbing; trace - 1+ edema Skin: no nodules Objective Data Vital Signs Vital Signs: Vital Signs Temp Pulse Resp BP Pulse Ox O2 Del Method FiO2 06/29/24 09:44 100.2 F H 06/29/24 09:15 87 106/77 06/29/24 08:00 99 Mechanical Ventilation 50 06/29/24 09:10 87 25 H 06/29/24 08:56 86 97 Mechanical Ventilation 50 06/29/24 08:54 87 30 H 06/29/24 11:30 93 103/66 06/29/24 11:15 96 117/72 06/29/24 11:00 96 119/73 06/29/24 10:45 94 117/77 06/29/24 10:30 93 115/71 06/29/24 10:15 94 120/74 06/29/24 10:00 90 121/72 06/29/24 09:45 91 128/67 06/29/24 09:30 89 106/91 H 06/29/24 09:00 85 123/60 06/29/24 08:45 84 118/64 06/29/24 08:15 50 06/29/24 08:30 83 91/62 L 06/29/24 08:15 77 108/56 L 06/29/24 07:45 98.8 F 77 26 H 103/53 L 100 06/29/24 04:00 100 Mechanical Ventilation 50 06/29/24 06:00 99.1 F 78 24 H 102/50 L 100 06/29/24 06:00 78 06/29/24 04:00 50 06/29/24 04:00 84 06/29/24 04:00 100.1 F H 85 26 H 138/64 100 06/29/24 05:14 99.4 F 06/29/24 05:18 81 100 Mechanical Ventilation 50 06/29/24 04:14 100.1 F H 06/29/24 02:27 84 21 H 06/29/24 02:20 85 30 H 06/29/24 02:20 85 100 Mechanical Ventilation 50 06/29/24 02:00 99.5 F 85 22 H 127/65 100 06/29/24 02:00 85 06/29/24 00:00 75 06/29/24 00:00 99 Mechanical Ventilation 50 06/29/24 00:00 99.4 F 71 24 H 121/57 L 100 06/29/24 00:00 50 06/28/24 23:17 72 99 Mechanical Ventilation 50 06/28/24 22:00 99.4 F 71 24 H 124/58 L 99 06/28/24 22:00 71 06/28/24 20:00 99 Mechanical Ventilation 50 06/28/24 20:00 99.8 F H 79 30 H 136/65 100 06/28/24 20:00 50 06/28/24 20:00 82 06/28/24 20:18 74 06/28/24 20:23 79 26 H 06/28/24 20:12 78 29 H 06/28/24 20:12 78 100 Mechanical Ventilation 50 06/28/24 18:00 74 06/28/24 18:00 99.6 F 74 26 H 136/65 98 06/28/24 17:01 71 98 Mechanical Ventilation 50 Intake/Output Intake/Output: Intake & Output 06/26/24 06/27/24 06/28/24 06/29/24 23:59 23:59 23:59 23:59 Intake Total 1160 1336.6 1468.3 740 Output Total 335 4605 695 3590 Balance 825 -3268.4 773.3 -2850 Meds/Results Medications: Medications: Active Medications Generic Name Dose Route Start Last Admin Trade Name Freq PRN Reason Stop Dose Admin Acetaminophen 650 mg 06/07/24 21:53 06/29/24 04:14 Acetaminophen Elixir 325 Mg/10.15 Ml Udc PO 650 mg Q6H PRN Administration Mild Pain (1-3) or Fever Albuterol/Ipratropium 3 ml 06/05/24 11:15 06/29/24 02:20 Ipratropium 0.5 Mg/Albuterol Sulfate 2.5 Mg Ampul.Neb 3 Ml INHALATION 3 ml Q6HRT JOHN Administration Amiodarone HCl 200 mg 06/02/24 21:00 06/28/24 20:18 Amiodarone Hcl 200 Mg Tablet PO 200 mg Q12HR JOHN Administration Apixaban 5 mg 06/27/24 09:00 06/28/24 20:18 Apixaban 5 Mg Tablet FEED TUBE 5 mg Q12HR JOHN Administration Dextrose 12.5 gm 06/05/24 11:46 Dextrose 50% 25 Gm/50 Ml Syringe IV PUSH PRN PRN Hypoglycemia Protocol Epoetin Shayan-epbx 10,000 units 06/18/24 09:00 06/27/24 10:25 Epoetin Shayan-Epbx 10,000 Units/Ml Vial IV PUSH 10,000 units MOWEFR@09 JOHN Administration Fidaxomicin 200 mg 06/24/24 01:35 PAINTER SET 06/28/24 20:18 Fidaxomicin 200 Mg Tablet PO 07/03/24 09:01 200 mg Q12HR JOHN Administration Glucagon 1 mg 06/05/24 11:46 Glucagon For Inj 1 Mg Vial IM PRN PRN Hypoglycemia Protocol Glucose 15 gm 06/05/24 11:46 Glucose Oral Gel 15 Gm Of Glucse In 37.5 Gm Tube PO PRN PRN Hypoglycemia Protocol Dextrose 1,000 mls @ 100 mls/hr 06/05/24 11:46 Dextrose 5% 1,000 Ml IVPB PRN PRN Hypoglycemia Protocol Albumin Human 50 mls @ 999 mls/hr 06/08/24 09:50 06/12/24 11:39 Albutein IVPB 07/08/24 09:49 Infused Q10M PRN Infusion HYPOTENSION Meropenem 1 gm in 100 mls @ 200 mls/hr 06/29/24 16:00 IVPB Q24H JOHN Insulin Aspart 3 - 6 units 06/05/24 12:00 06/29/24 06:19 Insulin Aspart (*Bkc) 100 Units/Ml SUB-Q Not Given Q6HR [facility] Protocol Linezolid 600 mg 06/27/24 21:00 06/28/24 20:18 Linezolid 600 Mg Tablet FEED TUBE 07/01/24 09:01 600 mg Q12HR JOHN Administration Metoclopramide HCl 10 mg 06/27/24 08:30 06/29/24 01:23 Metoclopramide Hcl 10 Mg/10 Ml Soln Udc FEED TUBE 10 mg Q6H JOHN Administration Midodrine 10 mg 06/17/24 22:00 06/29/24 06:16 Midodrine Hcl 10 Mg Tablet PO 10 mg Q8H JOHN Administration Morphine Sulfate 2 mg 06/27/24 12:55 06/29/24 04:14 Morphine Sulfate (*Crx) 2 Mg/Ml Inj IV PUSH 2 mg Q3H PRN Administration Pain Rated 7-10 Multi-Ingred Cream/Lotion/Oil/Oint 1 applic 06/05/24 09:00 06/28/24 20:19 Mineral Oil/White Petrolatum Ointment EACH EYE 1 applic Q12HR JOHN Administration Ondansetron HCl 4 mg 06/11/24 07:47 06/28/24 04:04 Ondansetron Inj 4 Mg/2 Ml Vial IV PUSH 4 mg Q6H PRN Administration Nausea And Vomiting Pantoprazole Sodium 40 mg 06/06/24 09:00 06/28/24 20:19 Pantoprazole Sodium Iv 40 Mg Vial IV PUSH 40 mg Q12HR JOHN Administration Quetiapine Fumarate 25 mg 06/28/24 09:00 06/28/24 20:18 Quetiapine Fumarate 25 Mg Tablet FEED TUBE 25 mg Q12HR JOHN Administration Umeclidinium Rodessa 1 puff 06/03/24 08:00 06/14/24 12:38 Umeclidinium Rodessa 62.5 Mcg Ellipta INHALATION Not Given DAILYRT [facility] Radiology Results: ITS Impressions Renal Ultrasound 06/04/24 15:06 IMPRESSION: 1. Normal kidneys. No hydronephrosis. Abdomen Ultrasound 06/10/24 14:47 IMPRESSION: Fat infiltration. Enlarged left lobe of the liver. Slightly thickened wall of the gallbladder. Trace of ascites. Otherwise, normal Limited ultrasound of the abdomen. Abdomen X-Ray 06/16/24 13:54 IMPRESSION: 1. Nasogastric tube tip in the stomach. 2. Nonobstructive bowel gas pattern. 3. Diffuse lung disease, consistent with pulmonary edema versus pneumonia. 4. Cardiomegaly. Central Venous Line 06/22/24 14:36 IMPRESSION: 1. Right internal jugular central venous catheter tip at the caudal superior vena cava. Chest/Abdomen/Pelvis CT 06/24/24 21:07 IMPRESSION: Diffuse patchy bilateral pulmonary ground glass infiltrates suggesting pneumonitis, less likely small airways disease Prominent bilateral lower lobe atelectasis with air bronchograms Cardiomegaly Splenomegaly Chest X-Ray 06/28/24 06:32 Impression: Support tubes, as above. Central congestive change with mild interstitial edema and probable minimal left pleural effusion. Venous Doppler Study 06/28/24 15:32 IMPRESSION: 1. No deep venous thrombosis. Labs Labs: Laboratory Tests 06/29/24 03:52 06/29/24 03:52 Calcium 10.3 H Magnesium 2.4 H Total Bilirubin 2.7 H AST 172 H ALT 23 Alkaline Phosphatase 310 H Total Protein 7.0 Albumin 3.4 L
--- NOTE | 2024-06-29 10:28 | PCPTNOTE ---
Attempted PT evaluation, pt in dialysis. Will follow
[2024-06-29] MEDS: EPOETIN ALFA-EPBX 10,000 UNITS/ML VIAL 10000 UNITS IV PUSH (10:32)
--- NOTE | 2024-06-29 10:35 | PCOTNOTE ---
Pt currently in dialysis and not able to participate in OT eval at this time. Will continue to follow.
--- NOTE | 2024-06-29 11:14 | PCFNICU ---
ICU Rounding Note: Pt current nutrition is Nepro at 50 ml/hr with Banatrol TID. Last recorded weight is 143.02 kg, stable from yesterday. Bowel Motility: FMS Labs Reviewed:Mg 2.4, BUN 73, Cr 5.8, Glu 147, Na 134, Hct 31.9, Hgb 9.9 Meds Noted:Seroquel, Reglan, Dificid, Protonix. Skin:WNL Additional Notes: Pateint remains on mechanical vent. Tube feedings on hold at this time. Patient having some nausea. Plans to restart tube feedings of Nepro at 50 ml/hr. Tube feeding providing 1980 kcal/89 gm protein/800 ml water. Flush 30 ml q 4 hours. Tube feedings providing 99% kcal needs at 14 kcal/kg of ABW. Banatrol Plus TID continues for stool bulking. Following daily in ICU rounds. Will monitor weight, labs, skin, meds, diet orders every Tuesday and Tuesday.
[2024-06-29] MEDS: HEPARIN SODIUM 1,000 UNITS/ML VIAL 6000 UNITS IV PUSH (12:00)
--- NOTE | 2024-06-29 12:42 | P.DS_ITS ---
DS: Admitting Diagnosis Discharge Date 06/29/24 Admitting Diagnosis Difficulty voiding but developed respiratory failure DS: Discharge Diagnosis Discharge Diagnosis (1) Acute respiratory failure: Code(s): J96.00 - Acute respiratory failure, unspecified whether with hypoxia or hypercapnia Status: Acute (2) Septic shock: Code(s): A41.9 - Sepsis, unspecified organism; R65.21 - Severe sepsis with septic shock Status: Acute (3) JOVI (acute kidney injury): Code(s): N17.9 - Acute kidney failure, unspecified Status: Acute (4) C. difficile diarrhea: Code(s): A04.72 - Enterocolitis due to Clostridium difficile, not specified as recurrent Status: Acute (5) Pulmonary edema: Code(s): J81.1 - Chronic pulmonary edema Status: Acute (6) Type 2 diabetes mellitus: Code(s): E11.9 - Type 2 diabetes mellitus without complications Status: Acute (7) Afib: Code(s): I48.91 - Unspecified atrial fibrillation Status: Acute (8) SLE (systemic lupus erythematosus): Code(s): M32.9 - Systemic lupus erythematosus, unspecified Status: Acute (9) Liver cirrhosis secondary to HOFFMANN: Code(s): K75.81 - Nonalcoholic steatohepatitis (HOFFMANN); K74.60 - Unspecified cirrhosis of liver Status: Acute (10) Pancreatitis: Code(s): K85.90 - Acute pancreatitis without necrosis or infection, unspecified Status: Acute (11) Morbid obesity with BMI of 50.0-59.9, adult: Code(s): E66.01 - Morbid (severe) obesity due to excess calories; Z68.43 - Body mass index [BMI] 50.0-59.9, adult Status: Acute DS: Summary Hospital Course Reason for hospitalization: 54yo female with AFib on anticoagulation, PM and DM here for difficulty voiding. 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 Central line was placed and started on pressor therapy. She was intubated later that morning. Please see H&P for details. Hospital Course: The following issues were addressed during her hospital course: (1) Acute respiratory failure: Patient originally admitted for difficulty voiding. Patient developed HoTN and hypoxia on 06/04 that worsened overnight. ABG showing 7.33/58/66.5 on HFNC. Patient brought to the ICU in the flower shop laborer/designer hours of 06/05/24. She had increasing O2 requirements. CXR showed bilateral diffuse pulmonary infiltrates/pulmonary edema. Respiratory failure related to pulmonary edema, pneumonia and/or ARDS. Patient was placed on BiPAP but ultimately intubated on 06/05/24. Despite daily HD, CXR continued to show edema vs PNA. CT Ch/A/P showing diffuse disease consider ARDS but unable to tell until she is euvolemic. Repeat CT Chest 06/24 showing diffuse patchy bilateral pulmonary ground glass infiltrates. PEG, Trach were discussed and family agreed. PEG by endoscopy unlikely given her hepatomegaly and required surgical approach. PEG and Trach placed 06/25. Upper and Lower doppler negative of DVT. Having tachypnea. Consider PE but felt less likely since on Eliquis. Consider PNA, pain or anxiety. We continued dialysis for fluid removal per nephrology. Patient accepted to LTAC for further care. She was transferred in stable condition. (2) Septic shock: Patient was HoTN in the IMU and transferred to the ICU. Septic shock possibly related to UTI, pneumonia, bacteremia. Rt IJ central line was placed and Levophed started. She received fluids, albumin and midodrine. BCx and UCx 06/02 negative. BCx 06/06 grew EColi and Staph Epidermidis. EColi was pansensitive. UCx 06/06 negative. Sputum Cx 06/07 growing yeast. BCx 06/08 negative. Patient was started on vancomycin and cefepime. Fluconazole was discontinued given her renal dysfunction. Stress dose steroids were started but weaned off. Cause of bacteremia probably urinary source given UA results despite UCx being negative. She completed a course. Off LIBRARY SPECIALIST since 06/06 and eventually weaned off Levophed. Persistent fevers. 06/17 LE venous doppler negative for DVT. CT Ch/A/P showing diffuse lung disease, consider PNA but otherwise no obvious source for fever. Increased WBC in the 11-15K range. CT Ch/A/P 06/24 showing diffuse patchy bilateral pulmonary ground glass infiltrates. BCx 06/22 NGTD. Sputum Cx 06/23 Yeast. UCx 06/23 growing 50-100K VRE. Patient with diarrhea and now CDiff positive. Currently on Linezolid and Dificid. Still having fevers so concern for ESBL. Cefepime changed to meropenem 06/28. (3) JOVI (acute kidney injury): Baseline Cr normal in April. Cr 2.1 on admission and has worsened. JOVI related to shock, sepsis, UTI/pneumonia, hypoxia, SLE flare and/or CHF. TCK levels are normal. Ueos negative. Urine lytes c/w prerenal picture but patient clinically was volume overloaded. Treated with IV fluids and albumin but renal function worsening and HD recommended. Customs [employer] Border [employer] Officer consulted and dialysis catheter was placed 06/05 in the right IJ and exchanged for the central line. HD daily with removal of anywhere from 2.9-4L per day and was getting HD almost every day. Cumulative flu id balance of -26.3L. HD now down to M-W-F and close to dry weight. Tunnelled HD catheter placed 06/22. (4) C. difficile diarrhea: As above. CT abdomen pelvis reviewed and shows no colon dilation. Diarrhea persistent but is on tube feedings. Remains on Dificid. (5) Pulmonary edema: CT chest (06/04) showing diffuse lung disease c/w PNA vs pulmonary edema vs ARDS. COVID, RSV and influenza PCR negative. Echo showing normal LV size and fxn (EF 65-70%), Grade I diastolic dysfxn, RV enlargement with normal fxn, moderate bi-atrial enlargement and mild-mod TR. Pulmonary edema likely related to diastolic CHF, PNA, JOVI, ARDS. She did not respond to Bumex so HD had to be started to improve fluid status. CT Chest 06/24 showing: diffuse patchy bilateral pulmonary ground glass infiltrates. Controlled fluid status with HD. (6) Type 2 diabetes mellitus: A1c 5.7. The patient's blood glucose was monitored with AccuCheks covering with sliding scale. Hypoglycemia protocol was available as needed. Glucose remained well controlled. (7) Afib: HR was well controlled and tele showing normal sinus. Flecainide stopped. We continued amiodarone and Eliquis (8) SLE (systemic lupus erythematosus): Consider SLE flare causing her JOVI but felt less likely. dsDNA negative and C3/C4 normal. ANCA and anti-GBM negative. She was started on stress dose steroids but now off. (9) Liver cirrhosis secondary to HOFFMANN: Patient has a hx of liver cirrhosis. CT abd without contrast shows normal liver but moderate volume of ascites and body wall edema consistent with her fluid overload. RUQ ultrasound 06/10 showing fat infiltration, enlarged left lobe of the liver and slightly thickened wall of the gallbladder. Trace ascites. The liver does cross the midline making GTube placement near impossible. Mild elevation in AST/ALT with AST higher and ALT normal. TCK normal. Hepatitis panel is negative. [place] elevated LFTs related to congestion. (10) Pancreatitis: Lipase elevated to 478 on 06/23. Had n/v. CT abdomen pelvis was unremarkable. Repeat lipase 698. (11) Morbid obesity with BMI of 50.0-59.9, adult: Once extubated she will need lifestyle changes Status at Discharge Cognitive/behavioral status at discharge: stable Time Spent with Patient Time attestation: Total time spent providing and/or coordinating discharge services: 45 minutes Time spent: Greater than 30 minutes Exam Narrative: Tm 101.5 105/62 87 33 98% MV Gen - intubated via trach Neck - Rt tunneled HD catheter, trach secured and vent in place Chest - breath sounds are less coarse. CV - RRR S1/S2. Tele showing no significant dysrhythmias Abd - soft, morbidly obese, +BS. Peg tube dsg clean and dry - Lai secured with scant amount of dark yellow urine in the bag. Fecal cont system in place Ext - trace LE pitting pedal edema. 2+ DP pulses Neuro - somnolent Skin - Warm and dry DS: Data Data Completed and Pending Labs on day of discharge: Labs from last 24 hours 06/29/24 06/29/24 06/28/24 03:52 00:11 17:37 WBC 15.9 H RBC 3.64 L Hgb 9.9 L Hct 31.9 L MCV 87.6 MCH 27.2 MCHC 31.0 L RDW 19.8 H Plt Count 373 MPV 10.5 H Sodium 134 L Potassium 3.0 L Chloride 95 L Carbon Dioxide 24 Anion Gap 15 H BUN 73 H D Creatinine 5.80 H Estim Creat Clear Calc 15 Estimated GFR 8 L Glucose 147 H POC Capillary Glucose 129 H 131 H Calcium 10.3 H Magnesium 2.4 H Total Bilirubin 2.7 H AST 172 H ALT 23 Alkaline Phosphatase 310 H Total Protein 7.0 Albumin 3.4 L Lipase 06/28/24 04:08 WBC RBC Hgb Hct MCV MCH MCHC RDW Plt Count MPV Sodium Potassium Chloride Carbon Dioxide Anion Gap BUN Creatinine Estim Creat Clear Calc Estimated GFR Glucose POC Capillary Glucose Calcium Magnesium Total Bilirubin AST ALT Alkaline Phosphatase Total Protein Albumin Lipase 698 H Discharge Plan Discharge Attending physician on discharge: Jose G Tadeo Consulting providers: Hector Kwok; Sukhwinder Romero; Biju Kay; Eduardo Albert Discharging Clinician: Jose G Tadeo Anticipated Discharge Date/Time: 06/29/24 13:12 [facility]: as tolerated Diet: tube feeding Discharge Instructions: Continue current treatment plan Patient Instructions: Apixaban (By mouth), Heart Failure (GEN), Blood Thinners (GEN) Stand Alone Forms: General Discharge Information Discharge Medications: New ipratropium-albuterol 0.5 mg-3 mg(2.5 mg base)/3 mL Solution For Nebulization 3 ml inhalation Q6HRT Qty: 10 0RF Retacrit 10,000 unit/mL Solution 10,000 unit IV PUSH MOWEFR@09 Qty: 10 0RF midodrine 10 mg Tablet 10 mg feeding tube Q8H Qty: 30 0RF Dificid 200 mg Tablet 200 mg PO Q12HR Qty: 8 0RF meropenem 1 gram Recon Soln 1 g IV Q24H Qty: 10 0RF Lubrifresh PM 83-15 % Ointment 1 applic EACH EYE Q12HR Qty: 20 0RF pantoprazole [Protonix] 40 mg Recon Soln 40 mg IV PUSH Q12HR Qty: 25 0RF acetaminophen [Nortemp] 160 mg/5 mL Suspension 650 mg feeding tube Q6H PRN (Reason: Mild Pain (1-3) Or Fever) Qty: 10 0RF ondansetron HCl (PF) 4 mg/2 mL Solution 4 mg IV PUSH Q6H PRN (Reason: Nausea And Vomiting) Qty: 20 0RF metoclopramide HCl 5 mg/5 mL Solution 10 mg feeding tube Q6H Qty: 10 0RF Eliquis 5 mg Tablet 5 mg feeding tube Q12HR Qty: 30 0RF linezolid 600 mg Tablet 600 mg feeding tube Q12HR Qty: 4 0RF quetiapine [Seroquel] 25 mg Tablet 25 mg feeding tube Q12HR Qty: 60 0RF Changed amiodarone 200 mg tablet 200 mg feeding tube Q12H Qty: 10 0RF Held furosemide 40 mg tablet 40 mg PO BID Hold Instructions: hold potassium chloride 20 mEq tablet,ER particles/crystals 40 meq PO BID Hold Instructions: hold famotidine 20 mg tablet 20 mg PO BID Hold Instructions: hold magnesium oxide 400 mg (241.3 mg magnesium) tablet 400 mg PO BID Hold Instructions: hold flecainide 100 mg tablet 100 mg PO BID Hold Instructions: hold gabapentin 100 mg capsule 200 mg PO TID Hold Instructions: hold metoprolol tartrate 25 mg tablet 25 mg PO BID Hold Instructions: hold Eliquis 5 mg tablet 5 mg PO BID Hold Instructions: hold dapagliflozin propanediol [Farxiga] 5 mg tablet 5 mg PO DAILY Hold Instructions: hold fluticasone propion-salmeterol [Advair Diskus] 250-50 mcg/dose blister with device 1 inh INHALATION BID Hold Instructions: hold ergocalciferol (vitamin D2) 1,250 mcg (50,000 unit) capsule 50,000 unit PO WEEKLY Hold Instructions: hold Rx Instructions: takes on Wednesdays. albuterol sulfate 90 mcg/actuation HFA aerosol inhaler 2 puff INHALATION Q4H PRN (Reason: Shortness Of Breath) Hold Instructions: hold Spiriva Respimat 2.5 mcg/actuation mist 2 puff INHALATION DAILY Hold Instructions: hold Date of admission: 06/03/24 14:44 Primary Care Provider: MichelleNury Admitting Provider: Waqar Reina Attending physician on admission: Waqar Reina Condition: Serious Hospitalist MIPS Heart Failure (Exclusion) Patient has history of Heart Transplant or Left Ventricular Assistive Device?: No IF YES, STOP HERE Heart Failure (Qualifier) Patient has current or prior documentation of LVEF less than or equal to 40%, or mod/servere depressed LVSF?: No IF NO, STOP HERE
[2024-06-29] MEDS: APIXABAN 5 MG TABLET FEED TUBE (12:52)
[2024-06-29] MEDS: LINEZOLID 600 MG TABLET FEED TUBE (12:52)
[2024-06-29] MEDS: AMIODARONE HCL 200 MG TABLET PO (12:52)
[2024-06-29] MEDS: FIDAXOMICIN 200 MG TABLET PO (12:52)
[2024-06-29] MEDS: QUEtiapine FUMARATE 25 MG TABLET FEED TUBE (12:53)
[2024-06-29] MEDS: MINERAL OIL/WHITE PETROLATUM OINTMENT 1 APPLIC EACH EYE (12:53)
[2024-06-29 13:12] LABS: Glucose Point of Care 145 mg/dl (65-105)
== END 2024-06-29 14:30 | DRG 5 ==
LOC: ANHED 14:55 → ANHIMU 15:37 → ANHICU 06-05 06:45 → ANHIMU 07-02 10:32
PROVIDERS: Emergency Medicine; Family Medicine; Internal Medicine; Internal Medicine Nephrology; Nurse Practitioner; Otolaryngology; Surgery; Admitting Provider General Practice; Emergency Provider Emergency Medicine; Visit Provider Internal Medicine
PROC: 0JH63XZ Insertion of Tunneled Vascular Access Device into Chest Subcutaneous Tissue and Fascia, Percutaneous Approach (ICD-10-PCS; CPT 36908; principal; 2024-06-22 13:30)
PROC: 0DH60UZ Insertion of Feeding Device into Stomach, Open Approach (ICD-10-PCS; CPT 49440; 2024-06-25 13:00)
DX: A41.9 Sepsis, unspecified organism (principal); R65.21 Severe sepsis with septic shock; N17.9 Acute kidney failure, unspecified; A04.72 Enterocolitis due to Clostridium difficile, not specified as recurrent; E11.9 Type 2 diabetes mellitus without complications; M32.9 Systemic lupus erythematosus, unspecified; I48.91 Unspecified atrial fibrillation; K75.81 Nonalcoholic steatohepatitis (NASH); J96.21 Acute and chronic respiratory failure with hypoxia; J96.22 Acute and chronic respiratory failure with hypercapnia; B37.2 Candidiasis of skin and nail; T50.995A Adverse effect of other drugs, medicaments and biological substances, initial encounter; E66.2 Morbid (severe) obesity with alveolar hypoventilation; K74.60 Unspecified cirrhosis of liver; N39.0 Urinary tract infection, site not specified; E87.6 Hypokalemia; J18.9 Pneumonia, unspecified organism; K85.90 Acute pancreatitis without necrosis or infection, unspecified; Z20.822 Contact with and (suspected) exposure to COVID-19; Z68.43 Body mass index [BMI] 50.0-59.9, adult; Z99.81 Dependence on supplemental oxygen; Z87.891 Personal history of nicotine dependence; Z79.01 Long term (current) use of anticoagulants; Z95.0 Presence of cardiac pacemaker; Z99.2 Dependence on renal dialysis
CPT/HCPCS: 31500; 36415; 36600; 71045; 71046; 71250; 74176; 76705; 76775; 77001; 80048; 80053; 80074; 80202; 81001; 81050; 82375; 82533; 82550; 82570; 82805; 82948; 83036; 83050; 83520; 83605; 83690; 83735; 83880; 83930; 83935; 84100; 84145; 84156; 84300; 84439; 84443; 84480; 84484; 84540; 84550; 85018; 85025; 85027; 85610; 85652; 85730; 85999; 86036; 86140; 86160; 86162; 86225; 86704; 86706; 86850; 86900; 86901; 87040; 87070; 87086; 87181; 87186; 87205; 87340; 87493; 87637; 87641; 93005; 93970; 93971; 94002; 94003; 94640; 96361; 96365; 99285; A9270; C1750; C1751; C1752; C8929; G0257; J0690; J0692; J0696; J1644; J1650; J1720; J1815; J1836; J1939; J1956; J2003; J2004; J2020; J2060; J2185; J2250; J2270; J2405; J2470; J2704; J3010; J3370; J7030; J7040; J7120; P9047; Q5105; Q9957